=== PATIENT | male | born 1950 | race Caucasian/White ===

== ENCOUNTER 2017-11-14 13:23 | Inpatient (IN) | payer OTHER, MEDICARE ==
[2017-11-14] MEDS ORDERED: SODIUM CHLORIDE 0.9% 500 ML IV STA (13:59)
[2017-11-14] MEDS ORDERED: SODIUM CHLORIDE 0.9% 1,000 ML IV STA (13:59)
[2017-11-14 14:54] LABS: Basophils % (A) 0 %; Eosinophils # (A) 0.2 k/uL (0-0.7); Eosinophils % (A) 3 %; HCT 24.7 % (39.0-53.0); HGB 7.7 gm/dL (13.0-17.5); Hypochromasia Slight; Lymphocytes # (A) 1.3 k/uL (1.0-4.8); Lymphocytes % (A) 16 %; MCH 30.9 pg (25.0-35.0); MCHC 31.3 g/dL (31.0-37.0); MCV 98.7 fL (80.0-100.0); Mean Platelet Volume 7.9; Monocytes # (A) 0.4 k/uL (0-1.0); Monocytes % (A) 5 %; Neutrophils # (A) 5.8 k/uL (1.3-7.7); Neutrophils % (A) 74 %; Platelet Count 357 k/uL (150-450); WBC 7.8 k/uL (3.8-10.6)
[2017-11-14 15:08] LABS: Calcium 8.9 mg/dL (8.4-10.2); Potassium 5.2 mmol/L (3.5-5.1); Total Bilirubin 0.1 mg/dL (0.2-1.3); Total Protein 5.5 g/dL (6.3-8.2)
--- NOTE | 2017-11-14 15:20 | XR ---
EXAMINATION TYPE: XR KUB DATE OF EXAM: 11/14/2017 CLINICAL DATA: 67-year-old male with generalized abdominal pain, PHH COMPARISON: 08/02/2012 FINDINGS: Lung bases are clear. No evidence for free intraperitoneal air. Cholecystectomy clips. No dilated small bowel or air-fluid levels. Scattered air and stool seen throughout the colon extendi ng distally into the rectum. Moderate stool burden. No suspicious calcifications identified. Pelvic phleboliths. IMPRESSION: 1. Moderate stool burden. Correlate for any constipation. 2.No evidence of bowel obstruction or free intraperitoneal air.
--- NOTE | 2017-11-14 15:55 | ED ---
Recheck HPI - General Chief Complaint: Recheck/Abnormal Lab/Rx Stated Complaint: ABN labs Time Seen by Provider: 11/14/17 13:58 Source: patient Mode of arrival: ambulatory Limitations: no limitations - History of Present Illness Initial Comments: 67 years old gentleman was sent in by primary care stating that hemoglobin was 7.3 he said he feels weak he feels lightheaded he is also complaining about the chest pain he said chest pain is ongoing for quite some time, he has a history of for coronary artery disease diabetes hyperlipidemia is an aspirin and Plavix he denies any GI bleed he said he did notice some blood in few days ago but not today no abdominal pain no frequency urgency dysuria no symptoms of TIA or CVA - Related Data Home Medications Medication Instructions Recorded Confirmed Cyanocobalamin [Vitamin B-12] 500 mcg PO DAILY 07/18/17 11/14/17 Ergocalciferol (Vitamin D2) 50,000 unit PO Q14D 07/18/17 11/14/17 [Vitamin D2] Gabapentin [Neurontin] 600 mg PO TID 07/18/17 11/14/17 Insulin Glargine,Hum.rec.anlog 10 unit SQ HS 07/18/17 11/14/17 [Lantus Solostar] Isosorbide Mononitrate ER [Imdur] 60 mg PO DAILY 07/18/17 11/14/17 Metoprolol Tartrate [Lopressor] 12.5 mg PO BID 07/18/17 11/14/17 Ranitidine HCl [Zantac] 150 mg PO BID 07/18/17 11/14/17 Simvastatin [Zocor] 40 mg PO HS 07/18/17 11/14/17 glipiZIDE [Glucotrol] 10 mg PO AC-TID 07/18/17 11/14/17 metFORMIN HCL [Glucophage] 1,000 mg PO BID 07/18/17 11/14/17 traMADol HCL [Ultram] 50 mg PO TID 07/18/17 11/14/17 Aspirin EC [Ecotrin Low Dose] 81 mg PO DAILY 11/14/17 11/14/17 Clopidogrel Bisulfate [Plavix] 75 mg PO DAILY 11/14/17 11/14/17 Sennosides-Docusate Sodium 2 tab PO TID PRN 11/14/17 11/14/17 [Senokot-S] Previous Rx's Medication Instructions Recorded Ferrous Sulfate [Iron] 325 mg PO DAILY #1 07/20/17 Allergies Allergy/AdvReac Type Severity Reaction Status Date / Time No Known Allergies Allergy Verified 11/14/17 14:22 Review of Systems ROS Statement: Those systems with pertinent positive or pertinent negative responses have been documented in the HPI. ROS Other: All systems not noted in ROS Statement are negative. Past Medical History Past Medical History: Coronary Artery Disease (CAD), Chest Pain / Angina, Diabetes Mellitus, Hyperlipidemia, Hypertension, Vascular Disorder Additional Past Medical History / Comment(s): Recent problem with insomnia and past 6 months has been having trouble with "bloating" abdominal distention that comes and goes, IDDM type II, low back pain with bilateral sciatica/neuropathy, DJD, past partial SBO treated conservatively, caratid dx with stent placed. History of Any Multi-Drug Resistant Organisms: None Reported Past Surgical History: Cholecystectomy, Heart Catheterization Additional Past Surgical History / Comment(s): R caratid stent-done in [place]. Past Anesthesia/Blood Transfusion Reactions: No Reported Reaction Past Psychological History: No Psychological Hx Reported Smoking Status: Current every day smoker Past Alcohol Use History: None Reported Past Drug Use History: None Reported - Past Family History Father History Unknown: Yes Mother Family Medical History: Cancer Additional Family Medical History / Comment(s): Mother from metastatic cancer unknown primary. General Exam - General Exam Comments Initial Comments: General: The patient is awake and alert, in no distress, and does not appear acutely ill. Looks tired and Skin: Skin is warm and dry and no rashes or lesions are noted. Eye: Pupils are equal, round and reactive to light, extra-ocular movements are intact; there is normal conjunctiva bilaterally. Ears, nose, mouth and throat: There are moist mucous membranes and no oral lesions. Neck: The neck is supple, there is no tenderness or JVD. Cardiovascular: There is a regular rate and rhythm. No murmur, rub or gallop is appreciated. Respiratory: To auscultation bilateral, no wheezing no rhonchi no distress respiratory marion noticed Gastrointestinal: Tender in epigastric area, rectal exam was positive for about Back: There is no tenderness to palpation in the midline. There is no obvious deformity. Musculoskeletal: Normal ROM, no tenderness, There is no pedal edema. There is no calf tenderness or swelling. No cords were appreciated. Neurological: CN II-XII intact, Cranial nerves III through XII are intact. There are no obvious motor or sensory deficits. Coordination appears grossly intact. Speech is normal. Psychiatric: Cooperative, appropriate mood & affect, normal judgment. Limitations: no limitations Course Vital Signs 11/14/17 11/14/17 13:40 15:43 Temperature 97.5 F L Pulse Rate 89 65 Respiratory 18 20 Rate Blood Pressure 114/56 152/72 O2 Sat by Pulse 98 97 Oximetry On review noticed hemoglobin is 7.7 a couple blood is positive troponin is negative his CMP also unremarkable noticed creatinine is 1.5 considering his low hemoglobin and the shortness of breath or chest pain he went he would need admission with some packed red cells transfusion considering he has symptomatic anemia and also renal failure we will admit him to [facility] and cardiology be consulted along with the form setter Medical Decision Making - Lab Data Result diagrams: 11/14/17 14:46 11/14/17 14:46 Lab Results 11/14/17 11/14/17 11/14/17 Range/Units 14:46 14:46 14:46 WBC 7.8 (3.8-10.6) k/uL RBC 2.50 L (4.30-5.90) m/uL Hgb 7.7 L (13.0-17.5) gm/dL Hct 24.7 L (39.0-53.0) % MCV 98.7 (80.0-100.0) fL MCH 30.9 (25.0-35.0) pg MCHC 31.3 (31.0-37.0) g/dL RDW 15.0 (11.5-15.5) % Plt Count 357 (150-450) k/uL Neutrophils % 74 % Lymphocytes % 16 % Monocytes % 5 % Eosinophils % 3 % Basophils % 0 % Neutrophils # 5.8 (1.3-7.7) k/uL Lymphocytes # 1.3 (1.0-4.8) k/uL Monocytes # 0.4 (0-1.0) k/uL Eosinophils # 0.2 (0-0.7) k/uL Basophils # 0.0 (0-0.2) k/uL Hypochromasia Slight Sodium 137 (137-145) mmol/L Potassium 5.2 H (3.5-5.1) mmol/L Chloride 104 (98-107) mmol/L Carbon Dioxide 24 (22-30) mmol/L Anion Gap 9 mmol/L BUN 23 H (9-20) mg/dL Creatinine 1.59 H (0.66-1.25) mg/dL Est GFR (CKD-EPI)AfAm 51 (>60 ml/min/1.73 sqM) Est GFR (CKD-EPI)NonAf 44 (>60 ml/min/1.73 sqM) Glucose 249 H (74-99) mg/dL Calcium 8.9 (8.4-10.2) mg/dL Total Bilirubin 0.1 L (0.2-1.3) mg/dL AST 12 L (17-59) U/L ALT 17 L (21-72) U/L Alkaline Phosphatase 76 (38-126) U/L Troponin I <0.012 (0.000-0.034) ng/mL Total Protein 5.5 L (6.3-8.2) g/dL Albumin 3.0 L (3.5-5.0) g/dL Amylase 74 (30-110) U/L Lipase 127 (23-300) U/L Stool Occult Blood (Negative) Blood Type Blood Type Recheck Antibody Screen Crossmatch Spec Expiration Date 11/14/17 11/14/17 Range/Units 14:46 15:12 WBC (3.8-10.6) k/uL RBC (4.30-5.90) m/uL Hgb (13.0-17.5) gm/dL Hct (39.0-53.0) % MCV (80.0-100.0) fL MCH (25.0-35.0) pg MCHC (31.0-37.0) g/dL RDW (11.5-15.5) % Plt Count (150-450) k/uL Neutrophils % % Lymphocytes % % Monocytes % % Eosinophils % % Basophils % % Neutrophils # (1.3-7.7) k/uL Lymphocytes # (1.0-4.8) k/uL Monocytes # (0-1.0) k/uL Eosinophils # (0-0.7) k/uL Basophils # (0-0.2) k/uL Hypochromasia Sodium (137-145) mmol/L Potassium (3.5-5.1) mmol/L Chloride (98-107) mmol/L Carbon Dioxide (22-30) mmol/L Anion Gap mmol/L BUN (9-20) mg/dL Creatinine (0.66-1.25) mg/dL Est GFR (CKD-EPI)AfAm (>60 ml/min/1.73 sqM) Est GFR (CKD-EPI)NonAf (>60 ml/min/1.73 sqM) Glucose (74-99) mg/dL Calcium (8.4-10.2) mg/dL Total Bilirubin (0.2-1.3) mg/dL AST (17-59) U/L ALT (21-72) U/L Alkaline Phosphatase (38-126) U/L Troponin I (0.000-0.034) ng/mL Total Protein (6.3-8.2) g/dL Albumin (3.5-5.0) g/dL Amylase (30-110) U/L Lipase (23-300) U/L Stool Occult Blood Positive (Negative) Blood Type B Positive Blood Type Recheck No Antibody Screen NEGATIVE Crossmatch See Detail Spec Expiration Date 11/17/20172345 Disposition Clinical Impression: Symptomatic anemia, GI bleed, Chest pain Disposition: ADMITTED IP TO THIS [facility] Condition: Good Referrals: [facility],Clinic [Primary Care Provider] - 1-2 days
[2017-11-14] MEDS ORDERED: ACETAMINOPHEN TAB 325 MG TAB PO PRN (16:06)
[2017-11-14] MEDS ORDERED: NALOXONE 0.4 MG/ML 1 ML VIAL IV PRN ×2 (16:06→17:12)
[2017-11-14] MEDS ORDERED: ONDANSETRON 4 MG/2 ML VIAL IVP PRN (16:06)
[2017-11-14] MEDS ORDERED: ERGOCALCIFEROL 50,000 UNIT CAP PO SCH (16:15)
[2017-11-14] MEDS ORDERED: SENNOSIDES-DOCUSATE SODIUM 1 EACH TAB PO PRN (16:15)
[2017-11-14 17:01] LABS: Appearance,Urine Clear (Clear); Bacteria,Urine Rare /hpf; Bilirubin,Urine Negative (Negative); Blood,Urine Small (Negative); Color,Urine Yellow; Glucose,Urine (UA) 2+ (Negative); Hyaline Casts,Urine 7 /lpf (0-2); Ketones,Urine Negative (Negative); Leukocyte Esterase,Urine Negative (Negative); Nitrite,Urine Negative (Negative); Protein,Urine 3+ (Negative); RBC,Urine 10 /hpf (0-5); Specific Gravity,Urine 1.018 (1.001-1.035); Urobilinogen,Urine <2.0 mg/dL (<2.0); WBC,Urine 1 /hpf (0-5)
[2017-11-14] MEDS ORDERED: glipiZIDE 10 MG TAB PO SCH (17:30)
[2017-11-14 17:52] LABS: Glucose,Whole Blood 156 mg/dL (75-99)
[2017-11-14 17:52] LABS: INR 0.9 (<1.2); Partial Thromboplastin Time 22.9 sec (22.0-30.0); Prothrombin Time 9.3 sec (9.0-12.0)
[2017-11-14] MEDS: INSULIN ASPART 100 UNIT/ML 1 ML 10 ML VIAL SQ SCH ×2 (18:11→21:42)
--- NOTE | 2017-11-14 19:12 | P.HPIM ---
History of Present Illness H&P Date: 11/14/17 Chief Complaint: abdominal bloating Patient is a 67-year-old male with past medical history of diabetes mellitus type 2, high cholesterol, carotid artery disease, neuropathy, and chronic low back pain who presented to the emergency department and direction of his primary care physician for hemoglobin of 7.3. In the ER he underwent an extensive evaluation. His initial vital signs were within normal limits. Initial laboratory analysis showed a hemoglobin of 7.7 down from 9.9 in July 2017. His potassium was slightly elevated at 5.2. His BUN and creatinine were elevated. Fecal occult blood was positive. He was ordered 1 unit of packed red blood cells and arrangements were made for admission. Patient seen and examined at bedside ER. He states he had an order for routine blood work yesterday and was called by his primary care physician today due to a low blood count told to come to the ER. He reports that he has felt dizzy and weak for the last 1 week. 5 days ago he had one episode of bright red blood per rectum. He has not had any additional blood or dark tarry looking stools. On that day he also had a bloody nose. He reports that he has been having increased abdominal girth and bloating. He reports shortness of breath that has been increasing and is worse with exertion and better with rest. He has had a dye cough and a runny nose, but no fevers or chills. He has been having intermittent left-sided chest pain without radiation associated with this increasing shortness of breath he is unsure how often it occurs. Last 1 week he has been having right-sided upper abdominal pain that radiates into his shoulder and into his armpit. Today he felt as though he can't faint or pass out. states that he has been more pale than normal. He also describes episodes at night where he wakes up warm and sweaty. He has just overall felt more fatigued than normal. He denies any significant weight loss or weight gain states his appetite has been normal. He denies any dysuria, urinary frequency, diarrhea, constipation, unusual numbness and tingling. Patient was recently here in July 2017 with a GI bleed. At that point in time he underwent EGD and colonoscopy. EGD showed chronic gastritis colonoscopy revealed 2 polyps one that was an adenoma and one that was an adenoma with hyperplastic polyp. Review of Systems Pertinent positives and negatives as per HPI remainder of 12 point review of systems is negative Past Medical History Past Medical History: Coronary Artery Disease (CAD), Chest Pain / Angina, Diabetes Mellitus, Hyperlipidemia, Hypertension, Vascular Disorder Additional Past Medical History / Comment(s): insomnia, abdominal distention that comes and goes, IDDM type II, low back pain with bilateral sciatica/ neuropathy, DJD, past partial SBO treated conservatively, carotid disease History of Any Multi-Drug Resistant Organisms: None Reported Past Surgical History: Cholecystectomy, Heart Catheterization Additional Past Surgical History / Comment(s): R caratid stent, EGD/colonoscopy July 2017 Past Anesthesia/Blood Transfusion Reactions: No Reported Reaction Past Psychological History: No Psychological Hx Reported Smoking Status: Current every day smoker Past Alcohol Use History: None Reported Past Drug Use History: None Reported - Past Family History Father History Unknown: Yes Mother Family Medical History: Cancer Additional Family Medical History / Comment(s): Mother from metastatic cancer pelvic origin Medications and Allergies Home Medications Medication Instructions Recorded Confirmed Type Cyanocobalamin [Vitamin B-12] 500 mcg PO DAILY 07/18/17 11/14/17 History Ergocalciferol (Vitamin D2) 50,000 unit PO Q14D 07/18/17 11/14/17 History [Vitamin D2] Gabapentin [Neurontin] 600 mg PO TID 07/18/17 11/14/17 History Insulin Glargine,Hum.rec.anlog 10 unit SQ HS 07/18/17 11/14/17 History [Lantus Solostar] Isosorbide Mononitrate ER [Imdur] 60 mg PO DAILY 07/18/17 11/14/17 History Metoprolol Tartrate [Lopressor] 12.5 mg PO BID 07/18/17 11/14/17 History Ranitidine HCl [Zantac] 150 mg PO BID 07/18/17 11/14/17 History Simvastatin [Zocor] 40 mg PO HS 07/18/17 11/14/17 History glipiZIDE [Glucotrol] 10 mg PO AC-TID 07/18/17 11/14/17 History metFORMIN HCL [Glucophage] 1,000 mg PO BID 07/18/17 11/14/17 History traMADol HCL [Ultram] 50 mg PO TID 07/18/17 11/14/17 History Ferrous Sulfate [Iron] 325 mg PO DAILY #1 07/20/17 11/14/17 Rx Aspirin EC [Ecotrin Low Dose] 81 mg PO DAILY 11/14/17 11/14/17 History Clopidogrel Bisulfate [Plavix] 75 mg PO DAILY 11/14/17 11/14/17 History Sennosides-Docusate Sodium 2 tab PO TID PRN 11/14/17 11/14/17 History [Senokot-S] Allergies Allergy/AdvReac Type Severity Reaction Status Date / Time No Known Allergies Allergy Verified 11/14/17 14:22 Physical Exam Osteopathic Statement: *. No significant issues noted on an osteopathic structural exam other than those noted in the History and Physical/Consult. Vitals: Vital Signs Temp Pulse Resp BP Pulse Ox 11/14/17 16:59 97.6 F 68 20 168/71 99 11/14/17 16:48 97.6 F 75 20 168/78 97 11/14/17 16:38 97.5 F L 79 18 168/77 11/14/17 15:43 65 20 152/72 97 11/14/17 13:40 97.5 F L 89 18 114/56 98 Intake and Output 11/14/17 11/14/17 11/14/17 06:59 14:59 22:59 Intake Total 0 Output Total 100 Balance -100 Intake: Blood Product 0 Rc As-1 Unit 0 [id number] Output: Urine 100 Other: Weight 81.647 kg General: Ill appearing, mild distress, appears at stated age, normal weight, pallor Derm: no unusual rashes/lesions no unusual ecchymoses, warm, dry Head: atraumatic, normocephalic, symmetric Eyes: EOMI, no lid lag, anicteric sclera, pupils equal round reactive to light ENT: Nose and ears atraumatic, no thrush, no pharyngeal erythema Neck: No thyromegaly, no cervical lymphadenopathy, trachea midline, supple Mouth: no lip lesion, mucus membranes dry Cardiovascular: S1S2 reg, no murmur, positive posterior tibial pulse bilateral, no edema, capillary refill less than 2 seconds Lungs: CTA bilateral, no rhonchi, no rales , no accessory muscle use Abdominal: soft, nontender to palpation, no guarding, no appreciable organomegaly, normal bowel sounds Ext: no gross muscle atrophy, muscle strength 5 out of 5 in upper extremities grossly, 3-4 out of 5 in bilateral lower extremities, no contractures, Neuro: CN II-XI grossly intact, light touch intact all 4 extremities, finger to nose within normal limits, Psych: Alert, oriented, appropriate affect Results CBC & Chem 7: 11/14/17 14:46 11/14/17 14:46 Labs: Abnormal Lab Results - Last 24 Hours (Table) 11/14/17 11/14/17 11/14/17 Range/Units 14:46 14:46 14:46 RBC 2.50 L (4.30-5.90) m/uL Hgb 7.7 L (13.0-17.5) gm/dL Hct 24.7 L (39.0-53.0) % Potassium 5.2 H (3.5-5.1) mmol/L BUN 23 H (9-20) mg/dL Creatinine 1.59 H (0.66-1.25) mg/dL Glucose 249 H (74-99) mg/dL Total Bilirubin 0.1 L (0.2-1.3) mg/dL AST 12 L (17-59) U/L ALT 17 L (21-72) U/L Total Protein 5.5 L (6.3-8.2) g/dL Albumin 3.0 L (3.5-5.0) g/dL Urine Protein (Negative) Urine Glucose (UA) (Negative) Urine Blood (Negative) Urine RBC (0-5) /hpf Urine Bacteria (None) /hpf Hyaline Casts (0-2) /lpf Crossmatch See Detail 11/14/17 Range/Units 16:45 RBC (4.30-5.90) m/uL Hgb (13.0-17.5) gm/dL Hct (39.0-53.0) % Potassium (3.5-5.1) mmol/L BUN (9-20) mg/dL Creatinine (0.66-1.25) mg/dL Glucose (74-99) mg/dL Total Bilirubin (0.2-1.3) mg/dL AST (17-59) U/L ALT (21-72) U/L Total Protein (6.3-8.2) g/dL Albumin (3.5-5.0) g/dL Urine Protein 3+ H (Negative) Urine Glucose (UA) 2+ H (Negative) Urine Blood Small H (Negative) Urine RBC 10 H (0-5) /hpf Urine Bacteria Rare H (None) /hpf Hyaline Casts 7 H (0-2) /lpf Crossmatch Comments: EKG is reviewed by myself reveals normal sinus rhythm at a rate of 65, normal axis, normal intervals, and no significant ST-T wave changes. Abdominal x-ray: report reviewed Thrombosis Risk Factor Assmnt - DVT/VTE Prophylaxis DVT/VTE Prophylaxis: Mechanical Prophylaxis ordered, Contraindicated - See note (Low hemoglobin with positive fecal occult blood) Assessment and Plan Assessment: Symptomatic anemia with positive fecal occult blood -Nothing by mouth after midnight -Serial CBCs -Consult GI -PPI -Check ferritin, B12, iron studies, and folic acid -Potassium is slightly elevated however bilirubin is normal. If bilirubin elevated consider further workup for possible hemolytic anemia. -Hold aspirin and Plavix -Check stat PT, PTT Hyperkalemia, undetermined cause -IV fluids -Repeat in a.m. Acute kidney injury on chronic kidney disease stage III -Likely secondary to hypoperfusion -Avoid nephrotoxic agents -Volume resuscitation -Repeat basic metabolic profile in a.m. -Urology was consulted from ER Chest pain or shortness of breath -Likely secondary to symptomatic anemia however could be anginal equivalent -Troponin negative 1 and EKG negative -Consult cardiology -Telemetry -Avoid aspirin at this point in time secondary GI bleed Diabetes mellitus type 2 -Hold oral medication -Levemir and sliding scale insulin -Hemoglobin A1c 07/05 was 5.3 -Repeat hemoglobin A1c -Check blood sugars Mild protein calorie malnutrition -Add supplementation when patient is able to tolerate diet. Consult dietitian Chronic conditions: Dyslipidemia Carotid disease status post stenting GERD Neuropathy Chronic back pain Surrogate decision-maker: CODE STATUS:full DVT prophylaxis: SCDs Discussed with: Patient, ED nursing Anticipated discharge: 24-[address]: home A total of 65 minutes was spent on the care of this complex patient more than 50 % of the time was spent in counseling and care coordination.
[2017-11-14] MEDS ORDERED: ALPRAZolam 0.5 MG TAB PO PRN (19:15)
[2017-11-14] MEDS: METOPROLOL TARTRATE 12.5 MG TAB PO SCH (20:03)
[2017-11-14] MEDS: ATORVASTATIN 20 MG TAB PO SCH (20:03)
[2017-11-14] MEDS: GABAPENTIN 300 MG CAP PO SCH (20:03)
[2017-11-14 20:35] LABS: HCT 27.1 % (39.0-53.0); HGB 8.7 gm/dL (13.0-17.5); Hypochromasia Slight; MCH 31.2 pg (25.0-35.0); MCV 97.5 fL (80.0-100.0); Mean Platelet Volume 8.8; Platelet Count 322 k/uL (150-450); RBC 2.78 m/uL (4.30-5.90); RDW 15.5 % (11.5-15.5); WBC 9.2 k/uL (3.8-10.6)
[2017-11-14] MEDS ORDERED: FAMOTIDINE 20 MG TAB PO SCH (21:00)
[2017-11-14] MEDS ORDERED: metFORMIN 500 MG TAB PO SCH (21:00)
[2017-11-14] MEDS: traMADol 50 MG TAB PO SCH (21:15)
[2017-11-14 21:32] LABS: Glucose,Whole Blood 123 mg/dL (75-99)
[2017-11-14] MEDS: INSULIN DETEMIR 100 UNIT/ML 10 ML VIAL SQ SCH (21:43)
[2017-11-15 02:07] LABS: Glucose,Whole Blood 117 mg/dL (75-99)
[2017-11-15 02:09] LABS: HCT 26.8 % (39.0-53.0); HGB 8.7 gm/dL (13.0-17.5); MCH 31.5 pg (25.0-35.0); MCHC 32.7 g/dL (31.0-37.0); MCV 96.4 fL (80.0-100.0); Mean Platelet Volume 7.8; Platelet Count 330 k/uL (150-450); RBC 2.78 m/uL (4.30-5.90); RDW 15.5 % (11.5-15.5); WBC 8.9 k/uL (3.8-10.6)
[2017-11-15 07:33] LABS: Glucose,Whole Blood 136 mg/dL (75-99)
[2017-11-15] MEDS: INSULIN ASPART 100 UNIT/ML 1 ML 10 ML VIAL SQ SCH ×4 (07:42→22:00)
[2017-11-15] MEDS: FERROUS SULFATE 325 MG TAB PO SCH (08:39)
[2017-11-15] MEDS: CYANOCOBALAMIN 500 MCG TAB PO SCH (08:39)
[2017-11-15] MEDS: GABAPENTIN 300 MG CAP PO SCH ×3 (08:39→22:02)
[2017-11-15] MEDS: ISOSORBIDE MONONITRATE ER 60 MG TAB.ER.24H PO SCH (08:39)
[2017-11-15] MEDS: METOPROLOL TARTRATE 12.5 MG TAB PO SCH (08:39)
[2017-11-15] MEDS: NICOTINE 21MG/24HR PATCH TRANSDERM SCH (08:40)
[2017-11-15] MEDS: PANTOPRAZOLE 40 MG/10 ML VIAL IV SCH (08:40)
[2017-11-15] MEDS: traMADol 50 MG TAB PO SCH ×3 (08:40→22:04)
--- NOTE | 2017-11-15 08:53 | US ---
EXAMINATION TYPE: US abdomen complete DATE OF EXAM: 11/15/2017 COMPARISON: US dated 10/29/2012, CT Abdomen pelvis 08/01/2012 CLINICAL HISTORY: distension and RUQ pain; anemia; cholecystectomy EXAM MEASUREMENTS: Liver Length: 15.7 cm Gallbladder Wall: surgically removed CBD: 0.9 cm Spleen: 10.5 cm Right Kidney: 11.3 x 6.1 x 6.1cm Left Kidney: 11.7 x 5.1 x 6.2 cm Pancreas: partially obscured by overlying bowel gas; CBD prominent in head of pancreas Liver: no masses seen and the echotexture is coarse Gallbladder: surgically absent Evidence for sonographic Chavez's sign: No CBD: wnl post cholecystectomy Spleen: wnl Right Kidney: lateral cortical cyst = 0.8 x 0.9 x 0.8cm. Left Kidney: No hydronephrosis or masses seen and cortical medullary differentiation is maintained bilaterally. Upper IVC: wnl Abd Aorta: size is wnl; intimal thickening is noted distally There is no ascites evident. IMPRESSION: Post cholecystectomy. Correlate for hepatic steatosis. Biliary dilation likely due to pos tcholecystectomy change.
[2017-11-15] MEDS ORDERED: hydrALAZINE HCL 20 MG/ML 1 ML VIAL IVP PRN (09:22)
--- NOTE | 2017-11-15 09:55 | P.NPCON ---
History of Present Illness - Reason for Consult acute renal failure - History of Present Illness Reason for consultation: Acute kidney injury History of present illness: Patient is a 67-year-old male seen in renal consultation for acute kidney injury on chronic kidney disease. 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 Creatinine on admission was 1.59. Patient saw his primary care physician yesterday and was complaining of weakness and dizziness. His hemoglobin was 7.3 and he was advised to come to the hospital for blood transmission. He did receive a unit of blood yesterday and hemoglobin this morning is 8.7. He denies any melena or hematochezia. Denies hematemesis. Denies active chest pain or shortness of breath. Admits to good urine output. No hematuria or dysuria. He does not follow with a it network architect as an outpatient. He does have long-standing history of insulin-dependent diabetes mellitus. He does admit to history of retinopathy and neuropathy as well. No vomiting or diarrhea. Denies regular use of NSAIDs. Denies family history of renal disease. Hemodynamically stable. Vital signs are stable. General: The patient appeared well nourished and normally developed. HEENT: Head exam is unremarkable. Neck is without jugular venous distension. LUNGS: Lungs are clear to auscultation and percussion. Breath sounds decreased. HEART: Rate and Rhythm are regular. First and second heart sounds normal. No murmurs, rubs or gallops. ABDOMEN: Abdominal exam reveals normal bowel sounds. Non-tender and non- distended. No evidence of peritonitis. EXTREMITITES: No clubbing, cyanosis, or edema. Past Medical History Past Medical History: Coronary Artery Disease (CAD), Chest Pain / Angina, Diabetes Mellitus, Hyperlipidemia, Hypertension, Vascular Disorder Additional Past Medical History / Comment(s): insomnia, abdominal distention that comes and goes, IDDM type II, low back pain with bilateral sciatica/ neuropathy, DJD, past partial SBO treated conservatively, carotid disease History of Any Multi-Drug Resistant Organisms: None Reported Past Surgical History: Cholecystectomy, Heart Catheterization Additional Past Surgical History / Comment(s): R caratid stent, EGD/colonoscopy July 2017 Past Anesthesia/Blood Transfusion Reactions: No Reported Reaction Past Psychological History: No Psychological Hx Reported Smoking Status: Current every day smoker Past Alcohol Use History: None Reported Past Drug Use History: None Reported - Past Family History Father History Unknown: Yes Mother Family Medical History: Cancer Additional Family Medical History / Comment(s): Mother from metastatic cancer pelvic origin Medications and Allergies Home Medications Medication Instructions Recorded Confirmed Type Cyanocobalamin [Vitamin B-12] 500 mcg PO DAILY 07/18/17 11/14/17 History Ergocalciferol (Vitamin D2) 50,000 unit PO Q14D 07/18/17 11/14/17 History [Vitamin D2] Gabapentin [Neurontin] 600 mg PO TID 07/18/17 11/14/17 History Insulin Glargine,Hum.rec.anlog 10 unit SQ HS 07/18/17 11/14/17 History [Lantus Solostar] Isosorbide Mononitrate ER [Imdur] 60 mg PO DAILY 07/18/17 11/14/17 History Metoprolol Tartrate [Lopressor] 12.5 mg PO BID 07/18/17 11/14/17 History Ranitidine HCl [Zantac] 150 mg PO BID 07/18/17 11/14/17 History Simvastatin [Zocor] 40 mg PO HS 07/18/17 11/14/17 History glipiZIDE [Glucotrol] 10 mg PO AC-TID 07/18/17 11/14/17 History metFORMIN HCL [Glucophage] 1,000 mg PO BID 07/18/17 11/14/17 History traMADol HCL [Ultram] 50 mg PO TID 07/18/17 11/14/17 History Ferrous Sulfate [Iron] 325 mg PO DAILY #1 07/20/17 11/14/17 Rx Aspirin EC [Ecotrin Low Dose] 81 mg PO DAILY 11/14/17 11/14/17 History Clopidogrel Bisulfate [Plavix] 75 mg PO DAILY 11/14/17 11/14/17 History Sennosides-Docusate Sodium 2 tab PO TID PRN 11/14/17 11/14/17 History [Senokot-S] Allergies Allergy/AdvReac Type Severity Reaction Status Date / Time No Known Allergies Allergy Verified 11/14/17 14:22 Physical Exam Vitals: Vital Signs Temp Pulse Pulse Resp BP BP Pulse Ox 11/15/17 06:04 97.0 F L 72 18 187/76 95 11/14/17 23:00 97.6 F 72 18 137/71 96 11/14/17 19:45 97.4 F L 69 16 142/71 11/14/17 19:43 97.4 F L 69 16 142/71 11/14/17 17:31 98.1 F 72 16 164/76 96 11/14/17 17:18 98.1 F 72 164/76 96 11/14/17 16:59 97.6 F 68 20 168/71 99 11/14/17 16:48 97.6 F 75 20 168/78 97 11/14/17 16:38 97.5 F L 79 18 168/77 11/14/17 15:43 65 20 152/72 97 11/14/17 13:40 97.5 F L 89 18 114/56 98 Intake and Output 11/14/17 11/15/17 11/15/17 22:59 06:59 14:59 Intake Total 0 Output Total 100 Balance -100 Intake: Blood Product 0 Rc As-1 Unit 0 [id number] Output: Urine 100 Other: # Voids 1 2 Weight 85 kg Results - Lab Results Most recent lab results Calcium 8.9 mg/dL (8.4-10.2) 11/14/17 14:46 11/15/17 02:00 11/14/17 14:46 Assessment and Plan Plan: Assessment: #1. Nonoliguric acute kidney injury mostly prerenal secondary to anemia. Creatinine was 1.59 on admission. No evidence of hydronephrosis noted on renal ultrasound. #2. Chronic kidney disease stage III secondary to diabetic kidney disease with baseline creatinine near 1.2. #3. Acute anemia. Concern for underlying GI bleed. Status post blood transfusion. Hemoglobin 8.7 today. #4. Insulin-dependent diabetes mellitus. Plan: Check iron studies. GI recommendations pending. Possible endoscopy this admission. Avoid nephrotoxic agents and hypotensive episodes. Continue with normal saline at 50 mL an hour for maintenance fluids. Repeat electrolytes in the morning. Thank you for the consultation. I will continue to follow the patient with you during his hospital stay.
[2017-11-15 10:44] LABS: HCT 28.5 % (39.0-53.0); HGB 9.1 gm/dL (13.0-17.5); MCH 31.4 pg (25.0-35.0); MCV 98.1 fL (80.0-100.0); Macrocytosis Slight; Mean Platelet Volume 7.5; Platelet Count 346 k/uL (150-450); RBC 2.91 m/uL (4.30-5.90); RDW 15.6 % (11.5-15.5); WBC 10.1 k/uL (3.8-10.6)
[2017-11-15 10:52] LABS: Iron Saturation 11.21 (15.00-50.00)
[2017-11-15 10:55] LABS: Prothrombin Time 9.5 sec (9.0-12.0)
[2017-11-15 11:28] LABS: Glucose,Whole Blood 158 mg/dL (75-99)
[2017-11-15 11:29] LABS: Albumin 2.8 g/dL (3.5-5.0); Calcium 8.9 mg/dL (8.4-10.2); Magnesium 2.2 mg/dL (1.6-2.3); Potassium 5.1 mmol/L (3.5-5.1); Total Bilirubin 0.2 mg/dL (0.2-1.3); Total Protein 5.3 g/dL (6.3-8.2)
--- NOTE | 2017-11-15 11:45 | P.PN ---
Subjective Progress Note Date: 11/15/17 Principal diagnosis: dizziness Patient is a 67-year-old male with past medical history of diabetes mellitus type 2, high cholesterol, carotid artery disease, neuropathy, and chronic low back pain who presented to the emergency department and direction of his primary care physician for hemoglobin of 7.3. In the ER he underwent an extensive evaluation. His initial vital signs were within normal limits. Initial laboratory analysis showed a hemoglobin of 7.7 down from 9.9 in July 2017. His potassium was slightly elevated at 5.2. His BUN and creatinine were elevated. Fecal occult blood was positive. He was ordered 1 unit of packed red blood cells and arrangements were made for admission. He had an episode of rectal bleeding and a nosebleed in the same day. He was hospitalized here in July 2017 with a GI bleed. At that point in time he underwent EGD and colonoscopy. EGD showed chronic gastritis colonoscopy revealed 2 polyps one that was an adenoma and one that was an adenoma with hyperplastic polyp.He has also been suffering from night sweats his A1C was 5.3 in June. His hemoglobin remained stable and he did not have any bleeding on the morning after admission. He was also having chest pain and was seen by cardiology. Nephrology was consulted by the ED for elevated Cr. Patient seen and examined at bedside. No chest pain, SOB, nausea, vomiting, diarrhea, or abdominal pain. Has not had a bowel movement. Family at bedside and updated. Objective - Vital Signs Vital signs: Vital Signs Temp 97.0 F L 11/15/17 06:04 Pulse 72 11/15/17 06:04 Resp 18 11/15/17 06:04 BP 187/76 11/15/17 06:04 Pulse Ox 95 11/15/17 06:04 Intake & Output 11/14/17 11/15/17 11/15/17 18:59 06:59 18:59 Intake Total 0 0 Output Total 100 Balance -100 0 Weight 85 kg 85 kg Intake: Blood Product 0 0 Rc As-1 Unit 0 0 [id number] Output: Urine 100 Other: # Voids 2 - Exam General: ill appearing, no distress, appears at stated age Derm: warm, dry Head: atraumatic, normocephalic, symmetric Eyes: EOMI, no lid lag, anicteric sclera Mouth: no lip lesion, mucus membranes moist Cardiovascular: S1S2 reg with systolic ejection murmur, positive posterior tibial pulse bilateral, Lungs: CTA bilateral, no rhonchi, no rales , no accessory muscle use Abdominal: soft, nontender to palpation, no guarding, no appreciable organomegaly Ext: no gross muscle atrophy, no edema, no contractures Neuro: CN II-XI grossly intact, no focal neuro deficits Psych: Alert, oriented, appropriate affect - Labs CBC & Chem 7: 11/15/17 09:35 11/14/17 14:46 Labs: Abnormal Lab Results - Last 24 Hours (Table) 11/14/17 11/14/17 11/14/17 Range/Units 14:46 14:46 14:46 RBC 2.50 L (4.30-5.90) m/uL Hgb 7.7 L (13.0-17.5) gm/dL Hct 24.7 L (39.0-53.0) % RDW (11.5-15.5) % Potassium 5.2 H (3.5-5.1) mmol/L BUN 23 H (9-20) mg/dL Creatinine 1.59 H (0.66-1.25) mg/dL Glucose 249 H (74-99) mg/dL POC Glucose (mg/dL) (75-99) mg/dL Iron (65-175) ug/dL Iron Saturation (15.00-50.00) Total Bilirubin 0.1 L (0.2-1.3) mg/dL AST 12 L (17-59) U/L ALT 17 L (21-72) U/L Total Protein 5.5 L (6.3-8.2) g/dL Albumin 3.0 L (3.5-5.0) g/dL Urine Protein (Negative) Urine Glucose (UA) (Negative) Urine Blood (Negative) Urine RBC (0-5) /hpf Urine Bacteria (None) /hpf Hyaline Casts (0-2) /lpf Crossmatch See Detail 11/14/17 11/14/17 11/14/17 Range/Units 16:45 17:49 20:20 RBC (4.30-5.90) m/uL Hgb (13.0-17.5) gm/dL Hct (39.0-53.0) % RDW (11.5-15.5) % Potassium (3.5-5.1) mmol/L BUN (9-20) mg/dL Creatinine (0.66-1.25) mg/dL Glucose (74-99) mg/dL POC Glucose (mg/dL) 156 H (75-99) mg/dL Iron 39 L (65-175) ug/dL Iron Saturation 11.21 L (15.00-50.00) Total Bilirubin (0.2-1.3) mg/dL AST (17-59) U/L ALT (21-72) U/L Total Protein (6.3-8.2) g/dL Albumin (3.5-5.0) g/dL Urine Protein 3+ H (Negative) Urine Glucose (UA) 2+ H (Negative) Urine Blood Small H (Negative) Urine RBC 10 H (0-5) /hpf Urine Bacteria Rare H (None) /hpf Hyaline Casts 7 H (0-2) /lpf Crossmatch 11/14/17 11/14/17 11/15/17 Range/Units 20:20 21:25 02:00 RBC 2.78 L 2.78 L (4.30-5.90) m/uL Hgb 8.7 L 8.7 L (13.0-17.5) gm/dL Hct 27.1 L 26.8 L (39.0-53.0) % RDW (11.5-15.5) % Potassium (3.5-5.1) mmol/L BUN (9-20) mg/dL Creatinine (0.66-1.25) mg/dL Glucose (74-99) mg/dL POC Glucose (mg/dL) 123 H (75-99) mg/dL Iron (65-175) ug/dL Iron Saturation (15.00-50.00) Total Bilirubin (0.2-1.3) mg/dL AST (17-59) U/L ALT (21-72) U/L Total Protein (6.3-8.2) g/dL Albumin (3.5-5.0) g/dL Urine Protein (Negative) Urine Glucose (UA) (Negative) Urine Blood (Negative) Urine RBC (0-5) /hpf Urine Bacteria (None) /hpf Hyaline Casts (0-2) /lpf Crossmatch 11/15/17 11/15/17 11/15/17 Range/Units 02:05 07:31 09:35 RBC 2.91 L (4.30-5.90) m/uL Hgb 9.1 L (13.0-17.5) gm/dL Hct 28.5 L (39.0-53.0) % RDW 15.6 H (11.5-15.5) % Potassium (3.5-5.1) mmol/L BUN (9-20) mg/dL Creatinine (0.66-1.25) mg/dL Glucose (74-99) mg/dL POC Glucose (mg/dL) 117 H 136 H (75-99) mg/dL Iron (65-175) ug/dL Iron Saturation (15.00-50.00) Total Bilirubin (0.2-1.3) mg/dL AST (17-59) U/L ALT (21-72) U/L Total Protein (6.3-8.2) g/dL Albumin (3.5-5.0) g/dL Urine Protein (Negative) Urine Glucose (UA) (Negative) Urine Blood (Negative) Urine RBC (0-5) /hpf Urine Bacteria (None) /hpf Hyaline Casts (0-2) /lpf Crossmatch 11/15/17 Range/Units 11:26 RBC (4.30-5.90) m/uL Hgb (13.0-17.5) gm/dL Hct (39.0-53.0) % RDW (11.5-15.5) % Potassium (3.5-5.1) mmol/L BUN (9-20) mg/dL Creatinine (0.66-1.25) mg/dL Glucose (74-99) mg/dL POC Glucose (mg/dL) 158 H (75-99) mg/dL Iron (65-175) ug/dL Iron Saturation (15.00-50.00) Total Bilirubin (0.2-1.3) mg/dL AST (17-59) U/L ALT (21-72) U/L Total Protein (6.3-8.2) g/dL Albumin (3.5-5.0) g/dL Urine Protein (Negative) Urine Glucose (UA) (Negative) Urine Blood (Negative) Urine RBC (0-5) /hpf Urine Bacteria (None) /hpf Hyaline Casts (0-2) /lpf Crossmatch Assessment and Plan Assessment: Symptomatic anemia with positive fecal occult blood, Fe deficiency anemia -HgB stable -Await GI recs -PPI -folic acid and retic count pending -Hold aspirin and Plavix Acute kidney injury on chronic kidney disease stage III due to diabetes, improving -Likely secondary to hypoperfusion due to anemia -Avoid nephrotoxic agents -Volume resuscitation -Repeat basic metabolic profile in a.m. -nephrology recs appreciated Chest pain and shortness of breath -Likely secondary to symptomatic anemia however could be anginal equivalent -Troponin negative -Await cardiology consult -echo pending -Telemetry -Avoid aspirin at this point in time secondary GI bleed Diabetes mellitus type 2 -Hold oral medication -Levemir and sliding scale insulin -Hemoglobin A1c 07/05 was 5.3 -Await hemoglobin A1c -follow blood sugars Mild protein calorie malnutrition -Add supplementation when patient is able to tolerate diet. Consult dietitian Hyperkalemia, resolved Chronic conditions: Dyslipidemia Carotid disease status post stenting GERD Neuropathy Chronic back pain DVT prophylaxis: SCDs Discussed with: Patient, nursing Anticipated discharge: 24-[address]: home A total of 25 minutes was spent on the care of this complex patient more than 50 % of the time was spent in counseling and care coordination.
--- NOTE | 2017-11-15 11:58 | ECHOF ---
Referral Reason:sob MEASUREMENTS -------- HEIGHT: 170.2 cm WEIGHT: 84.8 kg BP: 187/76 RVIDd: 3.2 cm (< 3.3) IVSd: 1.4 cm (0.6 - 1.1) LVIDd: 4.6 cm (3.9 - 5.3) LVPWd: 1.4 cm (0.6 - 1.1) IVSs: 1.8 cm LVIDs: 3.2 cm LVPWs: 1.8 cm LA Diam: 3.4 cm (2.7 - 3.8) LAESV Index (A-L): 36.18 ml/m Ao Diam: 4.0 cm (2.0 - 3.7) AV Cusp: 2.0 cm (1.5 - 2.6) MV EXCURSION: 17.007 mm (> 18.000) MV EF SLOPE: 34 mm/s (70 - 150) EPSS: 0.5 cm MV E Ray: 1.23 m/s MV DecT: 182 ms MV A Ray: 0.42 m/s MV E/A Ratio: 2.90 AV maxP.73 mmHg AV meanP.29 mmHg AR PHT: 1120 ms RAP: 5.00 mmHg RVSP: 31.73 mmHg FINDINGS -------- Sinus rhythm. This was a technically good study. The left ventricular size is normal. There is moderate concentric left ventricular hypertrophy. O verall left ventricular systolic function is normal with, an EF between 55 - 60 %. The right ventricle is normal in size. LA is moderately dilated 34-39 ml/m2 The right atrium is normal in size. There is mild aortic valve sclerosis. There is mild aortic regurgitation. There is mild aortic st enosis present. Peak/mean gradient across the Aortic Valve is 21.73mmHg / 9.29mmHg. The mitral valve leaflets are mildly thickened. Mild mitral annular calcification present. There is trace to mild mitral regurgitation. Mild tricuspid regurgitation present. Right ventricular systolic pressure is normal at < 35 mmHg. Trace/mild (physiologic) pulmonic regurgitation. The aortic root is dilated measuring 4.0cm. Normal inferior vena cava with normal inspiratory collapse consistent with estimated right atrial pre ssure of 5 mmHg. There is no pericardial effusion. CONCLUSIONS -------- 1. Sinus rhythm. 2. This was a technically good study. 3. The left ventricular size is normal. 4. There is moderate concentric left ventricular hypertrophy. 5. Overall left ventricular systolic function is normal with, an EF between 55 - 60 %. 6. The right ventricle is normal in size. 7. LA is moderately dilated 34-39 ml/m2 8. The right atrium is normal in size. 9. There is mild aortic valve sclerosis. 10. There is mild aortic regurgitation. 11. There is mild aortic stenosis present. 12. Peak/mean gradient across the Aortic Valve is 21.73mmHg / 9.29mmHg. 13. The mitral valve leaflets are mildly thickened. 14. Mild mitral annular calcification present. 15. There is trace to mild mitral regurgitation. 16. Mild tricuspid regurgitation present. 17. Right ventricular systolic pressure is normal at < 35 mmHg. 18. Trace/mild (physiologic) pulmonic regurgitation. 19. The aortic root is dilated measuring 4.0cm. 20. Normal inferior vena cava with normal inspiratory collapse consistent with estimated right atrial pressure of 5 mmHg. 21. There is no pericardial effusion. PLUMBING INSTRUCTOR: Sussy Rahman RDCS
[2017-11-15 13:28] VITALS: BMI 29.3
--- NOTE | 2017-11-15 14:51 | P.CRDCN ---
History of Present Illness Consult date: 11/15/17 History of present illness: Mr. Crane is a pleasant 59-year-old male past medical history significant for coronary artery disease, dyslipidemia, hypertension, diabetes mellitus, chronic GI bleeding, peripheral vascular disease with history of right carotid stent placement and chronic tobacco abuse. He follows with cardiology at the [facility]. We have been asked to see him in consultation for complaints of shortness of breath on admission. He was found to have a hemoglobin of 7.7. He underwent transfusion and hemoglobin today is 9.1. She states he has been having intermittent episodes of bright red bleeding off-and- on for the past year. He has undergone GI evaluation in the past. He states he underwent cardiac catheterization at the [facility] approximately one year ago was told that was normal. His records aren't available to me but we will attempt to obtain them. EKG on arrival reveals sinus mechanism with no acute ST or T-wave abnormalities. Chest x-ray on admission. One will be obtained. Laboratory data reviewed, hemoglobin 9.1, platelets 346, potassium 5.1, creatinine 1.4, cardiac enzymes negative 3. Current cardiac medications include Plavix 75 mg daily, aspirin 81 mg daily, Lopressor 12.5 mg twice a day, Imdur 60 mg daily and simvastatin 40 mg daily. Echocardiogram obtained on this admission reveals preserved left ventricular systolic function with ejection fraction 55-60%, moderate concentric left ventricular hypertrophy, moderately dilated left atrium, mild aortic regurgitation, mild aortic stenosis, peak/mean gradient 21.73/9.29 mmHg, trace to mild MR and aortic root dilated at 4 cm. Review of Systems At the time of my exam: CONSTITUTIONAL: Denies fever. Denies chills. EYES: Denies blurred vision. Denies vision changes. Denies eye pain. EARS, NOSE, MOUTH & THROAT: Denies headache. Denies sore throat. Denies ear pain. CARDIOVASCULAR: Denies chest pain. Denies shortness of breath. Denies orthopnea. Denies PND. Denies palpitations. RESPIRATORY: Denies cough. GASTROINTESTINAL: Denies abdominal pain. Denies diarrhea. Denies constipation. Denies nausea. Denies vomiting. MUSCULOSKELETAL: Denies myalgias. INTEGUMENTARY: Denies pruitis. Denies rash. NEUROLOGIC: Denies numbness. Denies tingling. Denies weakness. PSYCHIATRIC: Denies anxiety. Denies depression. ENDOCRINE: Denies fatigue. Denies weight change. Denies polydipsia. Denies polyurina. GENITOURINARY: Denies burning, hematuria or urgency with micturation. HEMATOLOGIC: Denies history of anemia. Denies bleeding. Past Medical History Past Medical History: Coronary Artery Disease (CAD), Chest Pain / Angina, Diabetes Mellitus, Hyperlipidemia, Hypertension, Vascular Disorder Additional Past Medical History / Comment(s): insomnia, abdominal distention that comes and goes, IDDM type II, low back pain with bilateral sciatica/ neuropathy, DJD, past partial SBO treated conservatively, carotid disease History of Any Multi-Drug Resistant Organisms: None Reported Past Surgical History: Cholecystectomy, Heart Catheterization Additional Past Surgical History / Comment(s): R caratid stent, EGD/colonoscopy July 2017 Past Anesthesia/Blood Transfusion Reactions: No Reported Reaction Past Psychological History: No Psychological Hx Reported Smoking Status: Current every day smoker Past Alcohol Use History: None Reported Past Drug Use History: None Reported - Past Family History Father History Unknown: Yes Mother Family Medical History: Cancer Additional Family Medical History / Comment(s): Mother from metastatic cancer pelvic origin Medications and Allergies Home Medications Medication Instructions Recorded Confirmed Type Cyanocobalamin [Vitamin B-12] 500 mcg PO DAILY 07/18/17 11/14/17 History Ergocalciferol (Vitamin D2) 50,000 unit PO Q14D 07/18/17 11/14/17 History [Vitamin D2] Gabapentin [Neurontin] 600 mg PO TID 07/18/17 11/14/17 History Insulin Glargine,Hum.rec.anlog 10 unit SQ 07/18/17 11/14/17 History [Lantus Solostar] Isosorbide Mononitrate ER [Imdur] 60 mg PO DAILY 07/18/17 11/14/17 History Metoprolol Tartrate [Lopressor] 12.5 mg PO BID 07/18/17 11/14/17 History Ranitidine HCl [Zantac] 150 mg PO BID 07/18/17 11/14/17 History Simvastatin [Zocor] 40 mg PO HS 07/18/17 11/14/17 History glipiZIDE [Glucotrol] 10 mg PO AC-TID 07/18/17 11/14/17 History metFORMIN HCL [Glucophage] 1,000 mg PO BID 07/18/17 11/14/17 History traMADol HCL [Ultram] 50 mg PO TID 07/18/17 11/14/17 History Ferrous Sulfate [Iron] 325 mg PO DAILY #1 07/20/17 11/14/17 Rx Aspirin EC [Ecotrin Low Dose] 81 mg PO DAILY 11/14/17 11/14/17 History Clopidogrel Bisulfate [Plavix] 75 mg PO DAILY 11/14/17 11/14/17 History Sennosides-Docusate Sodium 2 tab PO TID PRN 11/14/17 11/14/17 History [Senokot-S] Allergies Allergy/AdvReac Type Severity Reaction Status Date / Time No Known Allergies Allergy Verified 11/14/17 14:22 Physical Exam Vitals: Vital Signs Temp Pulse Pulse Resp BP BP Pulse Ox 11/15/17 06:04 97.0 F L 72 18 187/76 95 11/14/17 23:00 97.6 F 72 18 137/71 96 11/14/17 19:45 97.4 F L 69 16 142/71 11/14/17 19:43 97.4 F L 69 16 142/71 11/14/17 17:31 98.1 F 72 16 164/76 96 11/14/17 17:18 98.1 F 72 164/76 96 11/14/17 16:59 97.6 F 68 20 168/71 99 11/14/17 16:48 97.6 F 75 20 168/78 97 11/14/17 16:38 97.5 F L 79 18 168/77 11/14/17 15:43 65 20 152/72 97 11/14/17 13:40 97.5 F L 89 18 114/56 98 Intake and Output 11/14/17 11/15/17 11/15/17 22:59 06:59 14:59 Intake Total 0 Output Total 100 Balance -100 Intake: Blood Product 0 Rc As-1 Unit 0 [id number] Output: Urine 100 Other: # Voids 1 2 Weight 85 kg Blood pressure 187/76 heart rate 72 afebrile maintaining oxygen saturation on room air GENERAL: This is a 67-year-old occasion male in no apparent distress at the time of my examination. Pallor. HEENT: Head is atraumatic, normocephalic. Pupils are equal, round. Sclerae anicteric. Conjunctivae are clear. Mucous membranes of the mouth are moist. Neck is supple. There is no jugular venous distention. No carotid bruit is heard. LUNGS: Clear to auscultation no wheezes, rales or rhonchi. No chest wall tenderness is noted on palpation or with deep breathing. Diminished bilaterally HEART: Regular rate and rhythm with systolic ejection murmur at the base, no rubs or gallops. S1 and S2 heard. ABDOMEN: Soft, nontender. Bowel sounds are heard. No organomegaly noted. EXTREMITIES: No evidence of peripheral edema and no calf tenderness noted. VASCULAR: Radial and dorsalis pedis pulses palpated, no evidence of clubbing. NEUROLOGIC: Patient is awake, alert and oriented x3. Results 11/15/17 09:35 11/15/17 09:36 Cardiac Enzymes 11/14/17 11/14/17 11/14/17 Range/Units 14:46 14:46 20:20 AST 12 L (17-59) U/L Troponin I <0.012 <0.012 (0.000-0.034) ng/mL 11/15/17 Range/Units 02:00 AST (17-59) U/L Troponin I <0.012 (0.000-0.034) ng/mL Coagulation 11/14/17 Range/Units 14:46 PT 9.3 (9.0-12.0) sec APTT 22.9 (22.0-30.0) sec CBC 11/14/17 11/14/17 11/15/17 Range/Units 14:46 20:20 02:00 WBC 7.8 9.2 8.9 (3.8-10.6) k/uL RBC 2.50 L 2.78 L 2.78 L (4.30-5.90) m/uL Hgb 7.7 L 8.7 L 8.7 L (13.0-17.5) gm/dL Hct 24.7 L 27.1 L 26.8 L (39.0-53.0) % Plt Count 357 322 330 (150-450) k/uL Comprehensive Metabolic Panel 11/14/17 Range/Units 14:46 Sodium 137 (137-145) mmol/L Potassium 5.2 H (3.5-5.1) mmol/L Chloride 104 (98-107) mmol/L Carbon Dioxide 24 (22-30) mmol/L BUN 23 H (9-20) mg/dL Creatinine 1.59 H (0.66-1.25) mg/dL Glucose 249 H (74-99) mg/dL Calcium 8.9 (8.4-10.2) mg/dL AST 12 L (17-59) U/L ALT 17 L (21-72) U/L Alkaline Phosphatase 76 (38-126) U/L Total Protein 5.5 L (6.3-8.2) g/dL Albumin 3.0 L (3.5-5.0) g/dL Current Medications Generic Name Dose Route Start Last Admin Trade Name Freq PRN Reason Stop Dose Admin Acetaminophen 650 mg 11/14/17 16:06 11/14/17 20:07 Tylenol Tab PO 650 mg Q6HR PRN Administration Mild Pain or Fever > 100.5 Alprazolam 0.5 mg 11/14/17 19:15 11/14/17 20:09 Xanax PO 0.5 mg TID PRN Administration Anxiety Atorvastatin Calcium 20 mg 11/14/17 21:00 11/14/17 20:03 Lipitor PO 20 mg HS [facility] Administration Cyanocobalamin 500 mcg 11/15/17 12:00 11/15/17 08:39 Vitamin B-12 PO 500 mcg 1200 [facility] Administration Ferrous Sulfate 325 mg 11/15/17 12:00 11/15/17 08:39 Feosol PO 325 mg 1200 [facility] Administration Gabapentin 600 mg 11/14/17 22:00 11/15/17 08:39 Neurontin PO 600 mg TID [facility] Administration Insulin Aspart 0 unit 11/14/17 17:30 11/15/17 07:42 Novolog SQ Not Given ACHS [facility] Protocol Insulin Detemir 10 unit 11/14/17 21:00 11/14/17 21:43 Levemir SQ Not Given HS [facility] Isosorbide Mononitrate 60 mg 11/15/17 09:00 11/15/17 08:39 Imdur PO 60 mg DAILY [facility] Administration Metoprolol Tartrate 12.5 mg 11/14/17 21:00 11/15/17 08:39 Lopressor PO 12.5 mg BID [facility] Administration Naloxone HCl 0.2 mg 11/14/17 16:06 Narcan IV Q2M PRN Opioid Reversal Naloxone HCl 0.2 mg 11/14/17 17:12 Narcan IV Q2M PRN Opioid Reversal Nicotine 1 patch 11/15/17 09:00 11/15/17 08:40 Habitrol 21mg/24hr Patch TRANSDERM Not Given DAILY [facility] Ondansetron HCl 4 mg 11/14/17 16:06 Zofran IVP Q8HR PRN Nausea And Vomiting Pantoprazole Sodium 40 mg 11/15/17 09:00 11/15/17 08:40 Protonix IV 40 mg DAILY [facility] Administration Senna/Docusate Sodium 2 each 11/14/17 16:15 Senokot-S PO TID PRN Constipation Tramadol HCl 50 mg 11/14/17 22:00 11/15/17 08:40 Ultram PO 50 mg TID [facility] Administration Intake and Output 11/14/17 11/15/17 11/15/17 22:59 06:59 14:59 Intake Total 0 Output Total 100 Balance -100 Intake: Blood Product 0 Rc As-1 Unit 0 [id number] Output: Urine 100 Other: # Voids 1 2 Weight 85 kg 11/15/17 02:00 11/14/17 14:46 Assessment and Plan Assessment: ASSESSMENT 1. Chest pain, atypical. No EKG evidence of ischemia negative cardiac enzymes. Acute coronary event has been ruled out. Shortness of breath most likely secondary to anemia. 2. History of coronary artery disease, those records aren't available to me although we will attempt to obtain them from the [place]. 3. Hypertension 4. Dyslipidemia 5. Diabetes mellitus 6. Chronic tobacco abuse 7. Dilated aortic root, 4 cm 8. Chronic kidney disease, stage 3a PLAN Increase metoprolol 25 mg twice a day. Smoking cessation discussed. An acute coronary event has been ruled out. Symptoms most likely related to anemia. The symptoms have resolved with blood transfusion. Follow-up with primary leasing agent at the [place] clinic. Thank you kindly for this consultation. Nurse Practitioner note has been reviewed, I agree with a documented findings and plan of care. Patient was seen and examined.
--- NOTE | 2017-11-15 16:04 | XR ---
EXAMINATION TYPE: XR chest 2V DATE OF EXAM: 11/15/2017 COMPARISON: Prior chest 07/18/2017 HISTORY: Shortness of breath TECHNIQUE: Frontal and lateral views of the chest are obtained. FINDINGS: There is no focal air space opacity, pleural effusion, or pneumothorax seen. The cardiac silhouette size is stable. Perihilar vascular indistinctness is suspected. The osseous structures ar e intact. There are overlying cardiac leads. Interstitium is mildly increased. Prominent lung volume may be indicative of COPD. IMPRESSION: Correlate to exclude pulmonary venous hypertension and early interstitial edema. Follow- up is suggested.
[2017-11-15 17:38] LABS: Glucose,Whole Blood 126 mg/dL (75-99)
[2017-11-15 19:04] LABS: Hemoglobin A1C 4.8 % (4.0-6.0)
[2017-11-15 20:50] LABS: Glucose,Whole Blood 215 mg/dL (75-99)
[2017-11-15] MEDS: INSULIN DETEMIR 100 UNIT/ML 10 ML VIAL SQ SCH (22:01)
[2017-11-15] MEDS: METOPROLOL TARTRATE 25 MG TAB PO SCH (22:02)
[2017-11-15] MEDS: ATORVASTATIN 20 MG TAB PO SCH (22:02)
[2017-11-15 23:24] VITALS: RESP 20
[2017-11-16 02:06] LABS: Glucose,Whole Blood 77 mg/dL (75-99)
[2017-11-16 07:04] VITALS: BP 175/74; PULSE 64; TEMP 96.7
[2017-11-16 07:30] LABS: Glucose,Whole Blood 138 mg/dL (75-99)
[2017-11-16] MEDS: METOPROLOL TARTRATE 25 MG TAB PO SCH (07:37)
[2017-11-16] MEDS: NICOTINE 21MG/24HR PATCH TRANSDERM SCH (07:37)
[2017-11-16] MEDS: ISOSORBIDE MONONITRATE ER 60 MG TAB.ER.24H PO SCH (07:37)
[2017-11-16] MEDS: PANTOPRAZOLE 40 MG/10 ML VIAL IV SCH (07:37)
[2017-11-16] MEDS: traMADol 50 MG TAB PO SCH (07:37)
[2017-11-16] MEDS: GABAPENTIN 300 MG CAP PO SCH (07:37)
[2017-11-16] MEDS: INSULIN ASPART 100 UNIT/ML 1 ML 10 ML VIAL SQ SCH ×2 (07:38→12:37)
[2017-11-16 07:54] LABS: HCT 31.1 % (39.0-53.0); Hypochromasia Slight; MCH 31.3 pg (25.0-35.0); MCHC 32.1 g/dL (31.0-37.0); MCV 97.7 fL (80.0-100.0); Mean Platelet Volume 8.7; Platelet Count 356 k/uL (150-450); RBC 3.18 m/uL (4.30-5.90); RDW 15.5 % (11.5-15.5); WBC 8.5 k/uL (3.8-10.6)
[2017-11-16 08:08] LABS: Calcium 9.1 mg/dL (8.4-10.2); Potassium 4.7 mmol/L (3.5-5.1)
--- NOTE | 2017-11-16 08:39 | P.CONS ---
History of Present Illness - Reason for Consult Consult date: 11/15/17 Anemia and Hemoccult-positive stools - History of Present Illness The patient is a 67-year-old male who was referred from his primary doctor's office because of anemia. The patient has been on aspirin and Plavix which was held. He received 1 unit of packed cells. His stools was found to be occult positive but denied any overt bleeding. The patient that an episode of bleeding in July 2017 and he had both an upper endoscopy and colonoscopy. He was found to have chronic gastritis and 2 polyps were removed from his colon. The patient is tolerating liquid diet and denies any abdominal symptoms, nausea , vomiting, dysphagia or any bowel issues. Review of Systems Constitutional: Denies fever, chills, sweats, weight gain, or loss. HEENT: Negative for migraines, blurred vision or loss, earaches, drainage, tinnitus, oral mucosal lesions, dysphagia, or odynophagia. CARDIAC: Negative for chest pain, arrhythmias, or palpitation. RESPIRATORY: Negative for shortness of breath, hemoptysis, cough, or sputum production. GI: See HPI for pertinent findings. : Negative for hematuria, urgency, frequency, polyuria, or dysuria. MUSCULOSKELETAL: Negative for muscle aches, swelling, arthritis, and arthralgias. NEUROLOGIC: Negative for stroke or TIA. ENDOCRINE: Negative for thyroid problems. SKIN: Negative for rash or itching. PSYCHIATRIC: Negative history for depression and anxiety Past Medical History Past Medical History: Coronary Artery Disease (CAD), Chest Pain / Angina, Diabetes Mellitus, Hyperlipidemia, Hypertension, Vascular Disorder Additional Past Medical History / Comment(s): insomnia, abdominal distention that comes and goes, IDDM type II, low back pain with bilateral sciatica/ neuropathy, DJD, past partial SBO treated conservatively, carotid disease History of Any Multi-Drug Resistant Organisms: None Reported Past Surgical History: Cholecystectomy, Heart Catheterization Additional Past Surgical History / Comment(s): R caratid stent, EGD/colonoscopy July 2017 Past Anesthesia/Blood Transfusion Reactions: No Reported Reaction Past Psychological History: No Psychological Hx Reported Smoking Status: Current every day smoker Past Alcohol Use History: None Reported Past Drug Use History: None Reported - Past Family History Father History Unknown: Yes Mother Family Medical History: Cancer Additional Family Medical History / Comment(s): Mother from metastatic cancer pelvic origin Medications and Allergies Home Medications Medication Instructions Recorded Confirmed Type Cyanocobalamin [Vitamin B-12] 500 mcg PO DAILY 07/18/17 11/14/17 History Ergocalciferol (Vitamin D2) 50,000 unit PO Q14D 07/18/17 11/14/17 History [Vitamin D2] Gabapentin [Neurontin] 600 mg PO TID 07/18/17 11/14/17 History Insulin Glargine,Hum.rec.anlog 10 unit SQ HS 07/18/17 11/14/17 History [Lantus Solostar] Isosorbide Mononitrate ER [Imdur] 60 mg PO DAILY 07/18/17 11/14/17 History Metoprolol Tartrate [Lopressor] 12.5 mg PO BID 07/18/17 11/14/17 History Ranitidine HCl [Zantac] 150 mg PO BID 07/18/17 11/14/17 History Simvastatin [Zocor] 40 mg PO HS 07/18/17 11/14/17 History glipiZIDE [Glucotrol] 10 mg PO AC-TID 07/18/17 11/14/17 History metFORMIN HCL [Glucophage] 1,000 mg PO BID 07/18/17 11/14/17 History traMADol HCL [Ultram] 50 mg PO TID 07/18/17 11/14/17 History Ferrous Sulfate [Iron] 325 mg PO DAILY #1 07/20/17 11/14/17 Rx Aspirin EC [Ecotrin Low Dose] 81 mg PO DAILY 11/14/17 11/14/17 History Clopidogrel Bisulfate [Plavix] 75 mg PO DAILY 11/14/17 11/14/17 History Sennosides-Docusate Sodium 2 tab PO TID PRN 11/14/17 11/14/17 History [Senokot-S] Allergies Allergy/AdvReac Type Severity Reaction Status Date / Time No Known Allergies Allergy Verified 11/14/17 14:22 Physical Exam Vitals: Vital Signs Temp Pulse Pulse Resp BP BP Pulse Ox 11/15/17 15:00 97.1 F L 67 24 138/72 98 11/15/17 06:04 97.0 F L 72 18 187/76 95 11/14/17 23:00 97.6 F 72 18 137/71 96 03/29/18 19:45 97.4 F L 69 16 142/71 11/14/17 19:43 97.4 F L 69 16 142/71 11/14/17 17:31 98.1 F 72 16 164/76 96 11/14/17 17:18 98.1 F 72 164/76 96 Intake and Output 11/15/17 11/15/17 11/15/17 06:59 14:59 22:59 Intake Total 800 Balance 800 Intake: IV 800 Sodium Chloride 0.9% 1, 800 000 ml @ 100 mls/hr IV . Q10H STA Rx#:[id number] Other: # Voids 2 1 Weight 85 kg General appearance: The patient is alert, oriented, in no acute distress. HET: Head is normocephalic and atraumatic. Pupils are equal and reactive. Oropharynx is clear without lesions. Neck: Supple without lymphadenopathy. Trachea midline. Heart: S1 S2. Regular rate and rhythm. Lungs: No crackles or wheezes are heard. Abdomen: Soft, nontender, nondistended with bowel sounds. No peritoneal signs. No palpable organomegaly or masses. Extremities: Normal skin color and turgor. No cyanosis, rash, ulceration, clubbing, or edema. Radial and pedal pulses are 2/4 bilaterally. Neurological: No focal deficits. Strength and sensation are grossly intact. Results CBC & Chem 7: 11/16/17 07:31 11/16/17 07:31 Labs: Abnormal Lab Results - Last 24 Hours (Table) 11/14/17 11/14/17 11/14/17 Range/Units 14:46 17:49 20:20 RBC (4.30-5.90) m/uL Hgb (13.0-17.5) gm/dL Hct (39.0-53.0) % RDW (11.5-15.5) % Retic Count (0.5-2.0) % Creatinine (0.66-1.25) mg/dL Glucose (74-99) mg/dL POC Glucose (mg/dL) 156 H (75-99) mg/dL Iron 39 L (65-175) ug/dL Iron Saturation 11.21 L (15.00-50.00) AST (17-59) U/L ALT (21-72) U/L Total Protein (6.3-8.2) g/dL Albumin (3.5-5.0) g/dL Crossmatch See Detail 11/14/17 11/14/17 11/15/17 Range/Units 20:20 21:25 02:00 RBC 2.78 L 2.78 L (4.30-5.90) m/uL Hgb 8.7 L 8.7 L (13.0-17.5) gm/dL Hct 27.1 L 26.8 L (39.0-53.0) % RDW (11.5-15.5) % Retic Count (0.5-2.0) % Creatinine (0.66-1.25) mg/dL Glucose (74-99) mg/dL POC Glucose (mg/dL) 123 H (75-99) mg/dL Iron (65-175) ug/dL Iron Saturation (15.00-50.00) AST (17-59) U/L ALT (21-72) U/L Total Protein (6.3-8.2) g/dL Albumin (3.5-5.0) g/dL Crossmatch 11/15/17 11/15/17 11/15/17 Range/Units 02:00 02:05 07:31 RBC (4.30-5.90) m/uL Hgb (13.0-17.5) gm/dL Hct (39.0-53.0) % RDW (11.5-15.5) % Retic Count 4.0 H (0.5-2.0) % Creatinine (0.66-1.25) mg/dL Glucose (74-99) mg/dL POC Glucose (mg/dL) 117 H 136 H (75-99) mg/dL Iron (65-175) ug/dL Iron Saturation (15.00-50.00) AST (17-59) U/L ALT (21-72) U/L Total Protein (6.3-8.2) g/dL Albumin (3.5-5.0) g/dL Crossmatch 11/15/17 11/15/17 11/15/17 Range/Units 09:35 09:36 11:26 RBC 2.91 L (4.30-5.90) m/uL Hgb 9.1 L (13.0-17.5) gm/dL Hct 28.5 L (39.0-53.0) % RDW 15.6 H (11.5-15.5) % Retic Count (0.5-2.0) % Creatinine 1.40 H (0.66-1.25) mg/dL Glucose 132 H (74-99) mg/dL POC Glucose (mg/dL) 158 H (75-99) mg/dL Iron (65-175) ug/dL Iron Saturation (15.00-50.00) AST 14 L (17-59) U/L ALT 13 L (21-72) U/L Total Protein 5.3 L (6.3-8.2) g/dL Albumin 2.8 L (3.5-5.0) g/dL Crossmatch Assessment and Plan Assessment: Anemia likely related to blood loss. A bleeding source along the length of the GI tract will continue to be considered. The patient denied any overt bleeding. I will not schedule repeat upper endoscopy or colonoscopy at this time but would consider a capsule endoscopy before resuming his antiplatelet medications. We will advance his diet and check his blood counts in the morning and plan accordingly.
[2017-11-16] MEDS: FERROUS SULFATE 325 MG TAB PO SCH (11:03)
[2017-11-16] MEDS: CYANOCOBALAMIN 500 MCG TAB PO SCH (11:03)
--- NOTE | 2017-11-16 11:14 | P.PN ---
Subjective Progress Note Date: 11/16/17 Seen and examined for the follow-up of acute kidney injury. Doing better denies any nausea vomiting or diarrhea, hematemesis hematochezia melena. Objective - Vital Signs Vital signs: Vital Signs Temp 96.7 F L 11/16/17 07:00 Pulse 64 11/16/17 07:00 Resp 20 11/16/17 07:00 BP 175/74 11/16/17 07:00 Pulse Ox 99 11/16/17 07:00 Intake & Output 11/15/17 11/16/17 11/16/17 18:59 06:59 18:59 Intake Total 800 Balance 800 Weight 85 kg Intake: IV 800 Sodium Chloride 0.9% 1, 800 000 ml @ 100 mls/hr IV . Q10H STA Rx#:[id number] Other: Voiding Method Toilet # Voids 1 2 2 - Exam Lying in bed no acute distress S1 S2 heard Lungs clear No edema - Labs CBC & Chem 7: 11/16/17 07:31 11/16/17 07:31 Labs: Abnormal Lab Results - Last 24 Hours (Table) 11/14/17 11/15/17 11/15/17 Range/Units 20:20 02:00 09:36 RBC (4.30-5.90) m/uL Hgb (13.0-17.5) gm/dL Hct (39.0-53.0) % Retic Count 4.0 H (0.5-2.0) % Creatinine 1.40 H (0.66-1.25) mg/dL Glucose 132 H (74-99) mg/dL POC Glucose (mg/dL) (75-99) mg/dL Iron 39 L (65-175) ug/dL Iron Saturation 11.21 L (15.00-50.00) AST 14 L (17-59) U/L ALT 13 L (21-72) U/L Total Protein 5.3 L (6.3-8.2) g/dL Albumin 2.8 L (3.5-5.0) g/dL 11/15/17 11/15/17 11/15/17 Range/Units 11:26 17:36 20:49 RBC (4.30-5.90) m/uL Hgb (13.0-17.5) gm/dL Hct (39.0-53.0) % Retic Count (0.5-2.0) % Creatinine (0.66-1.25) mg/dL Glucose (74-99) mg/dL POC Glucose (mg/dL) 158 H 126 H 215 H (75-99) mg/dL Iron (65-175) ug/dL Iron Saturation (15.00-50.00) AST (17-59) U/L ALT (21-72) U/L Total Protein (6.3-8.2) g/dL Albumin (3.5-5.0) g/dL 11/16/17 11/16/17 11/16/17 Range/Units 07:20 07:31 07:31 RBC 3.18 L (4.30-5.90) m/uL Hgb 10.0 L (13.0-17.5) gm/dL Hct 31.1 L (39.0-53.0) % Retic Count (0.5-2.0) % Creatinine 1.30 H (0.66-1.25) mg/dL Glucose 127 H (74-99) mg/dL POC Glucose (mg/dL) 138 H (75-99) mg/dL Iron (65-175) ug/dL Iron Saturation (15.00-50.00) AST (17-59) U/L ALT (21-72) U/L Total Protein (6.3-8.2) g/dL Albumin (3.5-5.0) g/dL Assessment and Plan Assessment: Impression: #1 nonoliguric acute kidney injury secondary to hemodynamic ATN. #2 anemia secondary to GI loss with a recent history of acute GI bleed #3 CK D stage III baseline creatinine 1.2 #4 insulin-dependent diabetes #5 mild hyperkalemia Recommendations: #1 renal function stable continue to monitor #3 avoid nephrotoxic agents and hypotensive episodes #3 stable from nephrology point of view to be discharged to be followed up in the office in 2 weeks.
[2017-11-16 12:28] LABS: Glucose,Whole Blood 215 mg/dL (75-99)
[2017-11-16] MEDS ORDERED: SODIUM FERRIC GLUCONAT-SUCROSE 125 MG in SODIUM CHLORIDE 0.9% 100 ML IVPB ONE (12:30)
--- NOTE | 2017-11-16 13:05 | P.DS ---
Providers Date of admission: 11/14/17 16:06 Expected date of discharge: 11/16/17 Attending physician: Cirilo Weaver MD Consults: 11/14/17 16:06 Consult Physician Stat Consulting Provider: Keri Garcia Consult Reason/Comments: upper GI bleed bleedupper GI Do you want consulting provider notified?: Yes Consult Physician Stat Consulting Provider: Yulissa Ivory Consult Reason/Comments: Renal disease and anemia , GI bleed, Do you want consulting provider notified?: Yes 11/14/17 17:18 Consult Physician Routine Consulting Provider: Yasmani Garcia Consult Reason/Comments: chest pain dyspnea Do you want consulting provider notified?: Yes 11/16/17 07:58 Consult Physician Routine Consulting Provider: Lucas Singletary Consult Reason/Comments: hypoproliferative anemia, Fe deficiency (was on iron but hemoccult +) Do you want consulting provider notified?: Yes Primary care physician: [facility] - Discharge Diagnosis(es) (1) Symptomatic anemia Current Visit: Yes Status: Acute (2) Iron deficiency anemia Current Visit: Yes Status: Acute (3) MICHELLE (acute kidney injury) Current Visit: Yes Status: Acute (4) CKD (chronic kidney disease), stage III Current Visit: Yes Status: Acute (5) DM2 (diabetes mellitus, type 2) Current Visit: Yes Status: Acute (6) Non-cardiac chest pain Current Visit: Yes Status: Acute (7) Mild protein-calorie malnutrition Current Visit: Yes Status: Acute (8) GI bleed Current Visit: Yes Status: Acute Hospital Course: Patient is a 67-year-old male with past medical history of diabetes mellitus type 2, high cholesterol, carotid artery disease, neuropathy, and chronic low back pain who presented to the emergency department and direction of his primary care physician for hemoglobin of 7.3. In the ER he underwent an extensive evaluation. His initial vital signs were within normal limits. Initial laboratory analysis showed a hemoglobin of 7.7 down from 9.9 in July 2017. His potassium was slightly elevated at 5.2. His BUN and creatinine were elevated. Fecal occult blood was positive. He was ordered 1 unit of packed red blood cells and arrangements were made for admission. He had an episode of rectal bleeding and a nosebleed in the same day approximately 5 days before admission. He was hospitalized here in July 2017 with a GI bleed. At that point in time he underwent EGD and colonoscopy. EGD showed chronic gastritis colonoscopy revealed 2 polyps one that was an adenoma and one that was an adenoma with hyperplastic polyp. He has also been suffering from night sweats his A1C was 5.3 in June, repeat A1C was 4.8. His hemoglobin remained stable and he did not have any bleeding on the morning after admission. He was also having chest pain and was seen by cardiology. Nephrology was consulted by the ED for elevated Cr, he was noted to have diabetic CKD and MICHELLE. His renal function improved with improvement of his anemia. She was found have severe iron deficiency with a ferritin of 27 and a low reticcount 4% . His reticulocyte index was 1.7. He has been taking oral iron therapy at home. He will receive 1 dose of IV iron prior to discharge. He will increase his ferrous sulfate to 3 times daily. We'll add vitamin C to aid with absorption. He was seen by GI who did not recommend repeat inpatient EGD or colonoscopy at this point in time, but wants to perform an outpatient capsule endoscopy. They recommended staying off his antiplatelet therapy until this could be obtained. His hemoglobin remained stable and had no additional signs of bleeding during hospitalization. He was seen by cardiology who felt his dyspnea was likely secondary to anemia. His dyspnea had improved after 1 unit of packed red blood cells. After much consideration his Lantus will be discontinued along with his glipizide. Despite being off metformin and glipizide his 2 AM blood sugar was 77. He was determined stable for discharge home. He will need to follow-up with GI as an outpatient. I also recommended evaluation with hematology oncology as an outpatient for possible IV iron in the future. Patient seen and examined at bedside. No chest pain or shortness of breath. Feeling much better overall. Dizziness is completely resolved. No additional blood in his stool. Vital signs reviewed and stable. General: non toxic, no distress, appears at stated age Derm: warm, dry Head: atraumatic, normocephalic, symmetric Eyes: EOMI, no lid lag, anicteric sclera Mouth: no lip lesion, mucus membranes moist Cardiovascular: S1S2 reg, no murmur, positive posterior tibial pulse bilateral, Lungs: CTA bilateral, no rhonchi, no rales , no accessory muscle use Abdominal: soft, nontender to palpation, no guarding, no appreciable organomegaly Ext: no gross muscle atrophy, no edema, no contractures Neuro: CN II-XI grossly intact, no focal neuro deficits Psych: Alert, oriented, appropriate affect A total of 35 minutes of time were spent preparing this complex discharge summary . Pertinent Studies: KUB-constipation Echocardiogram-preserved ejection fraction of 55-60%, no significant valvular dysfunction Patient Condition at Discharge: Good Plan - Discharge Summary Discharge Rx Participant: Yes New Discharge Prescriptions: New Ferrous Sulfate [Iron (65 MG Elemental)] 325 mg PO AC-TID #0 tab Continue Metoprolol Tartrate [Lopressor] 12.5 mg PO BID Gabapentin [Neurontin] 600 mg PO TID Simvastatin [Zocor] 40 mg PO HS Isosorbide Mononitrate ER [Imdur] 60 mg PO DAILY Ranitidine HCl [Zantac] 150 mg PO BID Ergocalciferol (Vitamin D2) [Vitamin D2] 50,000 unit PO Q14D Cyanocobalamin [Vitamin B-12] 500 mcg PO DAILY metFORMIN HCL [Glucophage] 1,000 mg PO BID traMADol HCL [Ultram] 50 mg PO TID Sennosides-Docusate Sodium [Senokot-S] 2 tab PO TID PRN PRN Reason: Constipation Discontinued Insulin Glargine,Hum.rec.anlog [Lantus Solostar] 10 unit SQ HS glipiZIDE [Glucotrol] 10 mg PO AC-TID Ferrous Sulfate [Iron] 325 mg PO DAILY #1 Aspirin EC [Ecotrin Low Dose] 81 mg PO DAILY Clopidogrel Bisulfate [Plavix] 75 mg PO DAILY Discharge Medication List Cyanocobalamin [Vitamin B-12] 500 mcg PO DAILY 07/18/17 [History] Ergocalciferol (Vitamin D2) [Vitamin D2] 50,000 unit PO Q14D 07/18/17 [History] Gabapentin [Neurontin] 600 mg PO TID 07/18/17 [History] Isosorbide Mononitrate ER [Imdur] 60 mg PO DAILY 07/18/17 [History] Metoprolol Tartrate [Lopressor] 12.5 mg PO BID 07/18/17 [History] Ranitidine HCl [Zantac] 150 mg PO BID 07/18/17 [History] Simvastatin [Zocor] 40 mg PO HS 11/30/17 [History] metFORMIN HCL [Glucophage] 1,000 mg PO BID 07/18/17 [History] traMADol HCL [Ultram] 50 mg PO TID 07/18/17 [History] Sennosides-Docusate Sodium [Senokot-S] 2 tab PO TID PRN 11/14/17 [History] Ferrous Sulfate [Iron (65 MG Elemental)] 325 mg PO AC-TID #0 tab 11/16/17 [Rx] Follow up Appointment(s)/Referral(s): [facility] [Primary Care Provider] - 1-2 days Francisco Wise MD [STAFF PHYSICIAN] - 1 Week Lucas Singletary MD [STAFF PHYSICIAN] - 2 Weeks Patient Instructions/Handouts: Gastrointestinal Bleeding (DC) Activity/Diet/Wound Care/Special Instructions: carb consistent diet activity as tolerated Melatonin 3-5 mg nightly Vitamin C 500mg daily check blood sugar once daily Discharge Disposition: HOME SELF-CARE
--- NOTE | 2017-11-29 10:30 | CDI ---
Last Revision, July 2017 Documentation Clarification Form Date: 11/29/17 From: BRISSA Koch Phone: If you have question, contact Karen Bruner Baseball Scout at Admit Date: 11/14/2017 4:06:00 PM Patient Name: Jack Egan Visit Number: [id number] Discharge Date: 11/16/17 ATTENTION: The Clinical Documentation Specialists (CDI) and [facility] Coding Staff appreciate your assistance in clarifying documentation. Please respond to the clarification below the line at the bottom and electronically sign. The CDI & [facility] Coding staff will review the response and follow-up if needed. Please note: Queries are made part of the Legal Health Record. If you have any questions, please contact the author of this message via ITS. Dr. Cirilo Weaver Patient was admitted with symptomatic anemia with a hemoglobin of 7.7. He was transfused one unit of PRBCs. He had had an episode of rectal bleeding and epistaxsis 5 days prior to arrival. There is documentation of anemia likely related to blood loss, acute anemia and anemia secondary to GI loss with recent history of acute GI bleed. Further clarification regarding this blood loss anemia is needed for proper reporting purposes. Please clarify: Acute blood loss anemia Chronic blood loss anemia Acute on chronic blood loss anemia Other (please specify) I was not involved in this patients care, please refer to the documentation in the EMR and route this query accordingly MTDD
--- NOTE | 2017-11-29 10:36 | CDI ---
Last Revision, July 2017 Documentation Clarification Form Date: 11/29/17 From: Gerri Martinez Phone: If you have question, contact Karen Josephyeisonalex, Inspector Semiconductor Wafer at Admit Date: 11/14/2017 4:06:00 PM Patient Name: Jack Egan Visit Number: [id number] Discharge Date: 11/16/17 ATTENTION: The Clinical Documentation Specialists (CDI) and [facility] Coding Staff appreciate your assistance in clarifying documentation. Please respond to the clarification below the line at the bottom and electronically sign. The CDI & [facility] Coding staff will review the response and follow-up if needed. Please note: Queries are made part of the Legal Health Record. If you have any questions, please contact the author of this message via ITS. Dr. Eduardo French Conflicting documentation has been found in the medical record. Nephrology was consulted because of a creatinine of 1.59 on admission. Your assessment, dated 11/15, is Nonoliguric acute kidney injury mostly prerenal secondary to anemia. Progress note dated 11/16, documented by a different accordion repairer, states nonoliguric acute kidney injury secondary to hemodynamic ATN. In your opinion what is the most clinically appropriate diagnosis for this patient? ATN MICHELLE only, no ATN found Other explanation of clinical findings Unable to determine (no explanation for clinical findings) AKI only, no ATN ___ MTDD
--- NOTE | 2017-12-04 13:40 | CDI ---
Documentation Clarification Form Date: 12/04/17 From: BRISSA Koch Phone: If you have question, contact Karen Josephyeisonalex, Hydro Pneumatic Tester at Admit Date: 11/14/2017 4:06:00 PM Patient Name: Jack Egan Visit Number: [id number] Discharge Date: 11/16/17 ATTENTION: The Clinical Documentation Specialists (CDI) and [facility] Coding Staff appreciate your assistance in clarifying documentation. Please respond to the clarification below the line at the bottom and electronically sign. The CDI & [facility] Coding staff will review the response and follow-up if needed. Please note: Queries are made part of the Legal Health Record. If you have any questions, please contact the phone # at top of this request. Dr. Mccain, Patient was admitted with symptomatic anemia with a hemoglobin of 7.7. Transfused one unit of PRBCs. He had an episode of rectal bleeding and epistaxsis 5 days prior to arrival. There is conflicting documentation in the record of anemia likely related to blood loss, acute anemia and anemia secondary to GI loss with recent history of acute GI bleed and discharge summary states - "Acute symptomatic anemia" and "Acute iron deficiency anemia." Further clarification regarding this anemia is needed for proper reporting purposes. Please clarify: Acute blood loss anemia Chronic blood loss anemia Acute on chronic blood loss anemia Other (please specify) Thank you for your assistance. Acute blood loss anemia MTDD
== END 2017-11-16 14:10 | disposition home or self-care (01) | DRG 812 ==
LOC: SUPCPDRO 13:23 → EC 13:23 → 4MS4W 16:06
PROVIDERS: ADMIT Family Medicine; ATTEND Family Medicine
PROC: 30233N1 Transfusion of Nonautologous Red Blood Cells into Peripheral Vein, Percutaneous Approach (ICD-10-PCS; principal; 2017-11-14)
DX: D62 Acute posthemorrhagic anemia (principal); N17.9 Acute kidney failure, unspecified; E11.22 Type 2 diabetes mellitus with diabetic chronic kidney disease; E11.40 Type 2 diabetes mellitus with diabetic neuropathy, unspecified; E11.319 Type 2 diabetes mellitus with unspecified diabetic retinopathy without macular edema; K62.5 Hemorrhage of anus and rectum; E44.1 Mild protein-calorie malnutrition; N18.3 Chronic kidney disease, stage 3 (moderate); I12.9 Hypertensive chronic kidney disease with stage 1 through stage 4 chronic kidney disease, or unspecified chronic kidney disease; I25.10 Atherosclerotic heart disease of native coronary artery without angina pectoris; E78.5 Hyperlipidemia, unspecified; R14.0 Abdominal distension (gaseous); M54.5 Low back pain; G89.29 Other chronic pain; E87.5 Hyperkalemia; F17.200 Nicotine dependence, unspecified, uncomplicated; K21.9 Gastro-esophageal reflux disease without esophagitis; E11.51 Type 2 diabetes mellitus with diabetic peripheral angiopathy without gangrene; E78.00 Pure hypercholesterolemia, unspecified; K29.50 Unspecified chronic gastritis without bleeding; I77.810 Thoracic aortic ectasia; Z79.02 Long term (current) use of antithrombotics/antiplatelets; Z79.82 Long term (current) use of aspirin; Z79.899 Other long term (current) drug therapy; Z90.49 Acquired absence of other specified parts of digestive tract; Z71.6 Tobacco abuse counseling; Z79.4 Long term (current) use of insulin; Z87.19 Personal history of other diseases of the digestive system; Z86.010 Personal history of colon polyps; Z68.29 Body mass index [BMI] 29.0-29.9, adult
CPT/HCPCS: 36415; 71046; 74018; 76700; 80048; 80053; 81001; 82150; 82272; 82607; 82728; 82747; 83036; 83540; 83550; 83690; 83735; 84484; 85025; 85027; 85045; 85610; 85730; 86850; 86900; 86901; 86920; 93005; 93306; 96360; 96361; 99284

== ENCOUNTER 2018-02-10 20:46 | Inpatient (IN) | payer OTHER, MEDICARE ==
[2018-02-10 21:26] LABS: Anisocytosis Slight; Basophils % (A) 0 %; Eosinophils # (A) 0.1 k/uL (0-0.7); Eosinophils % (A) 1 %; HCT 20.2 % (39.0-53.0); Hypochromasia Slight; Lymphocytes # (A) 1.6 k/uL (1.0-4.8); Lymphocytes % (A) 17 %; MCH 30.5 pg (25.0-35.0); MCHC 32.5 g/dL (31.0-37.0); Macrocytosis Slight; Mean Platelet Volume 8.2; Monocytes # (A) 0.5 k/uL (0-1.0); Monocytes % (A) 5 %; Neutrophils # (A) 7.1 k/uL (1.3-7.7); Neutrophils % (A) 75 %; Platelet Count 400 k/uL (150-450); RBC 2.15 m/uL (4.30-5.90); RDW 17.5 % (11.5-15.5); WBC 9.4 k/uL (3.8-10.6)
[2018-02-10 21:34] LABS: HGB 6.6 gm/dL (13.0-17.5)
[2018-02-10] MEDS ORDERED: PANTOPRAZOLE 40 MG/10 ML VIAL IVP STA (21:40)
[2018-02-10 21:47] LABS: ALT 22 U/L (21-72); AST 14 U/L (17-59); Albumin 3.1 g/dL (3.5-5.0); Alkaline Phosphatase 77 U/L (38-126); Anion Gap 7 mmol/L; Blood Urea Nitrogen 30 mg/dL (9-20); Calcium 9.5 mg/dL (8.4-10.2); Carbon Dioxide 29 mmol/L (22-30); Chloride 101 mmol/L (98-107); Glucose 218 mg/dL (74-99); Potassium 4.9 mmol/L (3.5-5.1); Sodium 137 mmol/L (137-145); Total Bilirubin <0.1 mg/dL (0.2-1.3); Total Protein 5.5 g/dL (6.3-8.2)
[2018-02-10 21:48] LABS: Creatine Kinase 39 U/L (55-170); INR 0.9 (<1.2); Prothrombin Time 9.3 sec (9.0-12.0)
[2018-02-10 21:52] LABS: Partial Thromboplastin Time 21.3 sec (22.0-30.0)
--- NOTE | 2018-02-10 21:54 | ED ---
General Adult HPI - General Chief complaint: Dizziness Stated complaint: Recheck Labs Time Seen by Provider: 02/10/18 21:28 Source: patient, RN notes reviewed, old records reviewed Mode of arrival: wheelchair Limitations: no limitations - History of Present Illness Initial comments: 67-year-old male presents with abnormal outpatient laboratory studies. He did have a hemoglobin of 6.2. Patient has been dealing with anemia for the past several months. He previously had GI bleed. Denies melena or bright red rectal bleeding at this time. He is currently on aspirin and Plavix. Patient denies any pain complaints. He has had some exertional dyspnea and lightheadedness. No dysuria or hematuria. No abdominal pain nausea vomiting. - Related Data Home Medications Medication Instructions Recorded Confirmed Cyanocobalamin [Vitamin B-12] 500 mcg PO DAILY 07/18/17 02/10/18 Ergocalciferol (Vitamin D2) 50,000 unit PO Q14D 07/18/17 02/10/18 [Vitamin D2] Gabapentin [Neurontin] 600 mg PO TID 07/18/17 02/10/18 Isosorbide Mononitrate ER [Imdur] 60 mg PO DAILY 07/18/17 02/10/18 Metoprolol Tartrate [Lopressor] 12.5 mg PO BID 07/18/17 02/10/18 Ranitidine HCl [Zantac] 150 mg PO BID 07/18/17 02/10/18 Simvastatin [Zocor] 40 mg PO HS 07/18/17 02/10/18 metFORMIN HCL [Glucophage] 1,000 mg PO BID 07/18/17 02/10/18 traMADol HCL [Ultram] 50 mg PO TID 07/18/17 02/10/18 Aspirin EC [Ecotrin Low Dose] 81 mg PO DAILY 02/10/18 02/10/18 Clopidogrel [Plavix] 75 mg PO DAILY 02/10/18 02/10/18 Ferrous Sulfate [Iron (65 MG 325 mg PO BID 02/10/18 02/10/18 Elemental)] Insulin Glargine [Lantus] 10 unit SQ HS 02/10/18 02/10/18 Sennosides-Docusate Sodium 2 tab PO TID PRN 02/10/18 02/10/18 [Senokot-S] Allergies Allergy/AdvReac Type Severity Reaction Status Date / Time No Known Allergies Allergy Verified 02/10/18 21:45 Review of Systems ROS Statement: Those systems with pertinent positive or pertinent negative responses have been documented in the HPI. ROS Other: All systems not noted in ROS Statement are negative. Past Medical History Past Medical History: Coronary Artery Disease (CAD), Chest Pain / Angina, Diabetes Mellitus, Hyperlipidemia, Hypertension, Vascular Disorder Additional Past Medical History / Comment(s): insomnia, abdominal distention that comes and goes, IDDM type II, low back pain with bilateral sciatica/ neuropathy, DJD, past partial SBO treated conservatively, carotid disease History of Any Multi-Drug Resistant Organisms: None Reported Past Surgical History: Cholecystectomy, Heart Catheterization Additional Past Surgical History / Comment(s): R caratid stent, EGD/colonoscopy July 2017 Past Anesthesia/Blood Transfusion Reactions: No Reported Reaction Past Psychological History: No Psychological Hx Reported Smoking Status: Current every day smoker Past Alcohol Use History: None Reported Past Drug Use History: None Reported - Past Family History Father History Unknown: Yes Mother Family Medical History: Cancer Additional Family Medical History / Comment(s): Mother from metastatic cancer pelvic origin General Exam Limitations: no limitations General appearance: alert, in no apparent distress Head exam: Present: atraumatic, normocephalic Eye exam: Present: normal appearance, PERRL, EOMI ENT exam: Present: normal exam Neck exam: Present: normal inspection. Absent: tenderness, meningismus Respiratory exam: Present: normal lung sounds bilaterally. Absent: respiratory distress, wheezes Cardiovascular Exam: Present: regular rate, normal rhythm GI/Abdominal exam: Present: soft. Absent: distended, tenderness Rectal exam: Present: normal inspection. Absent: bloody stool, hemorrhoids Extremities exam: Present: normal inspection, full ROM. Absent: tenderness Neurological exam: Present: alert, oriented X3, CN II-XII intact Psychiatric exam: Present: normal affect, normal mood Skin exam: Present: warm, dry, intact, pallor. Absent: cyanosis, diaphoretic Course Vital Signs 02/10/18 20:51 Temperature 97.9 F Pulse Rate 77 Respiratory 16 Rate Blood Pressure 117/65 O2 Sat by Pulse 100 Oximetry Medical Decision Making - Medical Decision Making 59-year-old male presenting with anemia and concern for GI bleed. Stool is heme -positive, there is no malik melena, no bright red rectal bleeding. Hemoglobin is 6.6 patient is transfused one unit. Recent baseline of 10. Patient will be admitted for GI consultation. He is placed on proton pump inhibitor. - Lab Data Result diagrams: 02/10/18 21:10 02/10/18 21:10 Lab Results 02/10/18 02/10/18 02/10/18 Range/Units 21:00 21:10 21:10 WBC 9.4 (3.8-10.6) k/uL RBC 2.15 L (4.30-5.90) m/uL Hgb 6.6 L* (13.0-17.5) gm/dL Hct 20.2 L (39.0-53.0) % MCV 94.0 (80.0-100.0) fL MCH 30.5 (25.0-35.0) pg MCHC 32.5 (31.0-37.0) g/dL RDW 17.5 H (11.5-15.5) % Plt Count 400 (150-450) k/uL Neutrophils % 75 % Lymphocytes % 17 % Monocytes % 5 % Eosinophils % 1 % Basophils % 0 % Neutrophils # 7.1 (1.3-7.7) k/uL Lymphocytes # 1.6 (1.0-4.8) k/uL Monocytes # 0.5 (0-1.0) k/uL Eosinophils # 0.1 (0-0.7) k/uL Basophils # 0.0 (0-0.2) k/uL Hypochromasia Slight Anisocytosis Slight Macrocytosis Slight PT (9.0-12.0) sec INR (<1.2) APTT (22.0-30.0) sec Sodium (137-145) mmol/L Potassium (3.5-5.1) mmol/L Chloride (98-107) mmol/L Carbon Dioxide (22-30) mmol/L Anion Gap mmol/L BUN (9-20) mg/dL Creatinine (0.66-1.25) mg/dL Est GFR (CKD-EPI)AfAm (>60 ml/min/1.73 sqM) Est GFR (CKD-EPI)NonAf (>60 ml/min/1.73 sqM) Glucose (74-99) mg/dL Calcium (8.4-10.2) mg/dL Total Bilirubin (0.2-1.3) mg/dL AST (17-59) U/L ALT (21-72) U/L Alkaline Phosphatase (38-126) U/L Total Creatine Kinase 39 L (55-170) U/L CK-MB (CK-2) 1.0 (0.0-2.4) ng/mL CK-MB (CK-2) Rel Index 2.6 Troponin I <0.012 (0.000-0.034) ng/mL Total Protein (6.3-8.2) g/dL Albumin (3.5-5.0) g/dL Stool Occult Blood Positive (Negative) 02/10/18 02/10/18 Range/Units 21:10 21:10 WBC (3.8-10.6) k/uL RBC (4.30-5.90) m/uL Hgb (13.0-17.5) gm/dL Hct (39.0-53.0) % MCV (80.0-100.0) fL MCH (25.0-35.0) pg MCHC (31.0-37.0) g/dL RDW (11.5-15.5) % Plt Count (150-450) k/uL Neutrophils % % Lymphocytes % % Monocytes % % Eosinophils % % Basophils % % Neutrophils # (1.3-7.7) k/uL Lymphocytes # (1.0-4.8) k/uL Monocytes # (0-1.0) k/uL Eosinophils # (0-0.7) k/uL Basophils # (0-0.2) k/uL Hypochromasia Anisocytosis Macrocytosis PT 9.3 (9.0-12.0) sec INR 0.9 (<1.2) APTT 21.3 L (22.0-30.0) sec Sodium 137 (137-145) mmol/L Potassium 4.9 (3.5-5.1) mmol/L Chloride 101 (98-107) mmol/L Carbon Dioxide 29 (22-30) mmol/L Anion Gap 7 mmol/L BUN 30 H (9-20) mg/dL Creatinine 1.80 H (0.66-1.25) mg/dL Est GFR (CKD-EPI)AfAm 44 (>60 ml/min/1.73 sqM) Est GFR (CKD-EPI)NonAf 38 (>60 ml/min/1.73 sqM) Glucose 218 H (74-99) mg/dL Calcium 9.5 (8.4-10.2) mg/dL Total Bilirubin <0.1 L (0.2-1.3) mg/dL AST 14 L (17-59) U/L ALT 22 (21-72) U/L Alkaline Phosphatase 77 (38-126) U/L Total Creatine Kinase (55-170) U/L CK-MB (CK-2) (0.0-2.4) ng/mL CK-MB (CK-2) Rel Index Troponin I (0.000-0.034) ng/mL Total Protein 5.5 L (6.3-8.2) g/dL Albumin 3.1 L (3.5-5.0) g/dL Stool Occult Blood (Negative) Disposition Clinical Impression: MICHELLE (acute kidney injury), GI bleed Disposition: ADMITTED IP TO THIS [facility] Condition: Stable Is patient prescribed a controlled substance at d/c from ED?: No Referrals: [facility],Clinic [Primary Care Provider] - 1-2 days Decision to Admit Reason: Admit from EC Decision Date: 02/10/18 Decision Time: 23:03
[2018-02-10 22:02] LABS: Troponin I <0.012 ng/mL (0.000-0.034)
[2018-02-10] MEDS ORDERED: ONDANSETRON 4 MG/2 ML VIAL IVP PRN (22:55)
[2018-02-10] MEDS ORDERED: NALOXONE 0.4 MG/ML 1 ML VIAL IV PRN (22:55)
[2018-02-11] MEDS ORDERED: TEMAZEPAM 15 MG CAP PO PRN (00:49)
[2018-02-11] MEDS ORDERED: ALPRAZolam 0.25 MG TAB PO PRN (00:49)
[2018-02-11] MEDS ORDERED: ACETAMINOPHEN TAB 500 MG TAB PO PRN (00:49)
[2018-02-11] MEDS ORDERED: HYDROcodone/APAP 5-325MG 1 EACH TAB PO PRN (00:49)
[2018-02-11] MEDS: SODIUM CHLORIDE 0.9% 1,000 ML IV SCH ×2 (01:20→22:18)
--- NOTE | 2018-02-11 01:39 | XR ---
EXAMINATION TYPE: XR chest 1V portable DATE OF EXAM: 02/11/2018 COMPARISON: 11/15/2017 HISTORY: Weakness TECHNIQUE: Single frontal view of the chest is obtained. FINDINGS: There is no heart failure nor confluent pneumonic infiltrate. There is some coarsening of the interstitial markings in the lower lobes. Heart is slightly enlarged. Thoracic aorta is atheromat ous. There is no pleural effusion. IMPRESSION: Mild coarsening of the lung markings. No overt heart failure. No significant change comp ared to old exam.
[2018-02-11] MEDS ORDERED: FUROSEMIDE 10 MG/ML 2 ML VIAL IV STA ×3 (03:25→06:58)
[2018-02-11 04:42] LABS: Appearance,Urine Clear (Clear); Bilirubin,Urine Negative (Negative); Blood,Urine Small (Negative); Color,Urine Yellow; Glucose,Urine (UA) Negative (Negative); Ketones,Urine Negative (Negative); Leukocyte Esterase,Urine Negative (Negative); Mucus,Urine Rare /hpf; Nitrite,Urine Negative (Negative); PH, Urine 5.5 (5.0-8.0); Protein,Urine 3+ (Negative); RBC,Urine 2 /hpf (0-5); Specific Gravity,Urine 1.011 (1.001-1.035); Urobilinogen,Urine <2.0 mg/dL (<2.0); WBC,Urine <1 /hpf (0-5)
--- NOTE | 2018-02-11 06:00 | HP ---
HISTORY AND PHYSICAL DATE OF SERVICE: 02/10/2018 CHIEF COMPLAINT: GI bleed, dizziness. HISTORY OF PRESENT ILLNESS: This is a 67-year-old gentleman with a past medical history of multiple medical problems including CAD, chest pain, diabetes mellitus, hypertension, hyperlipidemia [facility] was recently admitted to [facility] with features of symptomatic anemia. Patient complaining of severe weakness and hemoglobin was found to be 6.2 in the outpatient and repeat hemoglobin was 6.6. The patient was admitted for further evaluation and treatment. The patient apparently had a previous anemia and also previous workup. not available at this time. Creatinine is 1.8 at this time. The patient did not see any obvious active bleeding at this point. There is no history of any fever , rigors. No history of headache, loss of consciousness, seizures at this time. PAST MEDICAL HISTORY: CAD, history of diabetes mellitus type 2, hypertension, hyperlipidemia, insomnia , history of insomnia, history of cardiac catheterization. MEDICATIONS: The home medications are: 1. Senna 2 tablets t.i.d. p.r.n. 2. Iron 325 mg b.i.d. 3. Vitamin B12, 500 mcg daily. 4. Ultram 50 mg p.o. t.i.d. 5. Glucophage 1000 mg p.o. b.i.d. 6. Zantac 150 mg b.i.d. 7. Imdur 60 mg daily. 8. Lantus 10 units subcutaneous at bedtime. 9. Neurontin 60 mg p.o. t.i.d. 10.Vitamin D2, 50,000 q.14 days. 11.Zocor 40 mg at bedtime. 12.Lopressor 12.5 mg p.o. b.i.d. 13.Plavix 75 mg p.o. daily. 14.Ecotrin 81 mg daily. ALLERGIES: Allergies are none. FAMILY HISTORY: History of metastatic cancer of pelvis origin. SOCIAL HISTORY: History of smoking. No history of alcohol intake. REVIEW OF SYSTEMS: ENT: No diminished vision or diminished vision. CARDIOVASCULAR SYSTEM: No angina. RESPIRATORY SYSTEM: As mentioned earlier. GI: As mentioned earlier. : No dysuria. NERVOUS SYSTEM: No numbness or weakness. ALLERGY/IMMUNOLOGY: No asthma or hayfever. MUSCULOSKELETAL: As mentioned earlier. HEMATOLOGY/ONCOLOGY: As mentioned earlier. ENDOCRINE: Diabetes mellitus. CONSTITUTIONAL: As mentioned earlier. DERMATOLOGY: Negative. RHEUMATOLOGY: Negative. PSYCHIATRY: As mentioned earlier. PHYSICAL EXAMINATION: The patient is alert and oriented x3. Pulse is 74, blood pressure 144/67, respiration 18, temperature 98.3, pulse ox 98% on 2 L. HEENT: Conjunctivae pale. Oral mucosa moist. Neck is no jugular venous distention. No carotid bruit. No lymph node enlargement. CARDIOVASCULAR: S1, S2 muffled. No S3 or S4. RESPIRATORY: Breath sounds diminished at the bases. A few scattered rhonchi. No crackles. ABDOMEN: Soft, nontender. No mass palpable. LEGS: Bilateral leg edema, minimal. NERVOUS SYSTEM: Higher function as mentioned. Moves all 4 limbs. No focal motor or sensory deficits. LYMPHATICS: No lymphadenopathy of the neck, axillae or groin. SKIN: No ulcer, rash or bleeding. LABS: WBC 9.4, hemoglobin 6.6. Creatinine is 1.8. ASSESSMENT: 1. Symptomatic anemia acute on chronic, rule out acute gastrointestinal bleed. 2. Increased creatinine with possibly chronic kidney disease stage III. 3. Diabetes mellitus type 2. 4. Hypertension. 5. Hyperlipidemia. 6. Coronary artery disease. 7. History of insomnia. 8. History of back pain, degenerative joint disease. 9. History of partial small bowel obstruction. 10.History of cholecystectomy. 11.History of THC. RECOMMENDATIONS AND DISCUSSION: In this 67-year-old gentleman who presented with multiple complex medical issues at this time I will recommend to continue the current management, continue symptomatic treatment. Otherwise I would recommend gastroenterology evaluation and possible endoscopies. As mentioned earlier, the patient's EGD and colonoscopy last showed antral gastritis and polypectomy. We will continue to monitor. Will arrange transfusions. Guarded prognosis because of multiple complex medical issues and further recommendations to follow. A copy of dictation forwarded to Dr. Myles who is the primary physician. See orders for details. Will order at least 2 units transfusion with Lasix 20 in between. MMODL / IJN: [id number] / MTDD
[2018-02-11] MEDS ORDERED: FUROSEMIDE 10 MG/ML 4 ML VIAL IV STA (06:58)
[2018-02-11 08:47] VITALS: RESP 16
[2018-02-11] MEDS: metFORMIN 500 MG TAB PO SCH ×2 (08:47→16:23)
[2018-02-11] MEDS: CYANOCOBALAMIN 500 MCG TAB PO SCH (08:47)
[2018-02-11] MEDS: FERROUS SULFATE 325 MG TAB PO SCH ×2 (08:48→20:04)
[2018-02-11] MEDS: METOPROLOL TARTRATE 12.5 MG TAB PO SCH ×2 (08:48→21:35)
[2018-02-11] MEDS: PANTOPRAZOLE 40 MG/10 ML VIAL IVP SCH ×2 (08:48→21:35)
[2018-02-11] MEDS: ISOSORBIDE MONONITRATE ER 60 MG TAB.ER.24H PO SCH (08:48)
[2018-02-11] MEDS: traMADol 50 MG TAB PO SCH ×3 (08:48→21:36)
[2018-02-11] MEDS: GABAPENTIN 300 MG CAP PO SCH ×3 (08:48→21:35)
[2018-02-11 09:41] LABS: Albumin 3.1 g/dL (3.5-5.0); Calcium 9.2 mg/dL (8.4-10.2); INR 0.9 (<1.2); Magnesium 1.8 mg/dL (1.6-2.3); Potassium 4.7 mmol/L (3.5-5.1); Prothrombin Time 9.4 sec (9.0-12.0); Total Bilirubin 0.2 mg/dL (0.2-1.3); Total Protein 5.3 g/dL (6.3-8.2)
[2018-02-11 09:58] LABS: Anisocytosis Slight; Basophils % (A) 0 %; Eosinophils # (A) 0.1 k/uL (0-0.7); Eosinophils % (A) 1 %; HCT 27.7 % (39.0-53.0); HGB 8.9 gm/dL (13.0-17.5); Hypochromasia Slight; Lymphocytes # (A) 1.3 k/uL (1.0-4.8); Lymphocytes % (A) 10 %; MCH 30.2 pg (25.0-35.0); MCHC 32.2 g/dL (31.0-37.0); MCV 93.9 fL (80.0-100.0); Macrocytosis Slight; Mean Platelet Volume 7.4; Monocytes # (A) 0.6 k/uL (0-1.0); Monocytes % (A) 5 %; Neutrophils # (A) 10.1 k/uL (1.3-7.7); Neutrophils % (A) 82 %; Platelet Count 395 k/uL (150-450); RBC 2.95 m/uL (4.30-5.90); RDW 18.2 % (11.5-15.5); WBC 12.3 k/uL (3.8-10.6)
--- NOTE | 2018-02-11 11:01 | P.CONS ---
History of Present Illness - Reason for Consult Consult date: 02/11/18 Anemia Requesting physician: Aida Ndiaye - History of Present Illness 67-year-old gentleman with a history of CAD, carotid disease, maintained on aspirin Plavix, diabetes, anemia, chronic kidney disease, admitted with reports of abnormal outpatient CBC; hemoglobin 6.2 Patient denies overt bleeding such as hematemesis hematochezia melena. He was evaluated for anemia and rectal bleeding abdominal pain in July 2017 EGD colonoscopy findings reported mild antral gastritis but no evidence of peptic ulcer disease. Transverse polypectomy biopsies indicated adenoma rectal biopsy hyperplastic polyp. Upon review of medical records average hemoglobin trends between 9-10. He received 2 units of blood for hemoglobin of 6.6 presently 8.9. MCV 94. Platelet 400. BUN 30. Creatinine 1.8. INR 0.9. Hemoccult stool positive. No NSAIDs or alcohol. Denies abdominal pain. No weight loss. Iron indices in October ferritin 27. Iron 39. Iron percentage 11.2 % Review of Systems Constitutional: Denies fever, chills, sweats, weight gain, or loss. HEENT: Negative for migraines, blurred vision or loss, earaches, drainage, tinnitus, oral mucosal lesions, dysphagia, or odynophagia. Cardiac: History of CAD carotid disease. Negative for chest pain, arrhythmias, or palpitation. Respiratory: Negative for shortness of breath, hemoptysis, cough, or sputum production. Gastrointestinal: See HPI for pertinent findings. Genitourinary: Negative for hematuria, urgency, frequency, polyuria, dysuria, or penile discharge. Musculoskeletal: Negative for muscle aches, swelling, arthritis, and arthralgias. Neurologic: Negative for stroke or TIA. Endocrine: History of diabetes.. Skin: Negative for rash or itching. Psychiatric: Negative history for depression and anxiety Past Medical History Past Medical History: Coronary Artery Disease (CAD), Chest Pain / Angina, Diabetes Mellitus, GERD/Reflux, GI Bleed, Hyperlipidemia, Hypertension, Vascular Disorder Additional Past Medical History / Comment(s): Insomnia, abdominal distention that comes and goes, epistaxis, lower GI bleed, benign colon polyp, IDDM type II , low back pain with bilateral sciatica/neuropathy, DJD, past partial SBO treated conservatively, carotid disease, possible chronic kidney disease History of Any Multi-Drug Resistant Organisms: None Reported Past Surgical History: Cholecystectomy, Heart Catheterization Additional Past Surgical History / Comment(s): [facility] [place] [facility] Anesthesia/Blood Transfusion Reactions: No Reported Reaction Past Psychological History: No Psychological Hx Reported Additional Psychological History / Comment(s): Pt resides with his spouse and their 2 dogs. Pt uses a cane to ambulate. He has a mobility scooter which he uses prn. He does not drive, his spouse drives. Smoking Status: Current every day smoker Past Alcohol Use History: None Reported Additional Past Alcohol Use History / Comment(s): Pt started smoking in 1966 and is a 1-2 ppd smoker. Past Drug Use History: None Reported Additional Drug Use History / Comment(s): Pt states he takes a couple puffs from a marijuana joint occasionally - Past Family History Father History Unknown: Yes Mother Family Medical History: Cancer Additional Family Medical History / Comment(s): Mother from metastatic cancer pelvic origin Medications and Allergies Home Medications Medication Instructions Recorded Confirmed Type Cyanocobalamin [Vitamin B-12] 500 mcg PO DAILY 07/18/17 02/10/18 History Ergocalciferol (Vitamin D2) 50,000 unit PO Q14D 07/18/17 02/10/18 History [Vitamin D2] Gabapentin [Neurontin] 600 mg PO TID 07/18/17 02/10/18 History Isosorbide Mononitrate ER [Imdur] 60 mg PO DAILY 07/18/17 02/10/18 History Metoprolol Tartrate [Lopressor] 12.5 mg PO BID 07/18/17 02/10/18 History Ranitidine HCl [Zantac] 150 mg PO BID 07/18/17 02/10/18 History Simvastatin [Zocor] 40 mg PO HS 07/18/17 02/10/18 History metFORMIN HCL [Glucophage] 1,000 mg PO BID 07/18/17 02/10/18 History traMADol HCL [Ultram] 50 mg PO TID 07/18/17 02/10/18 History Aspirin EC [Ecotrin Low Dose] 81 mg PO DAILY 02/10/18 02/10/18 History Clopidogrel [Plavix] 75 mg PO DAILY 02/10/18 02/10/18 History Ferrous Sulfate [Iron (65 MG 325 mg PO BID 02/10/18 02/10/18 History Elemental)] Insulin Glargine [Lantus] 10 unit SQ HS 02/10/18 02/10/18 History Sennosides-Docusate Sodium 2 tab PO TID PRN 02/10/18 02/10/18 History [Senokot-S] Allergies Allergy/AdvReac Type Severity Reaction Status Date / Time No Known Allergies Allergy Verified 02/10/18 21:45 Physical Exam Vitals: Vital Signs Temp Pulse Pulse Resp BP Pulse Ox 02/11/18 08:05 97.6 F 74 16 98 02/11/18 07:42 67 18 168/70 100 02/11/18 06:58 97.8 F 68 18 165/72 100 02/11/18 06:15 83 18 161/70 83 L 02/11/18 05:03 97.8 F 70 18 165/73 97 02/11/18 04:33 97.5 F L 60 18 163/72 100 02/11/18 04:23 97.6 F 73 18 176/72 99 02/11/18 03:25 97.6 F 68 18 148/66 98 02/11/18 02:05 97.8 F 64 18 159/72 100 02/11/18 01:35 97.8 F 73 18 138/63 99 02/11/18 01:25 97.6 F 82 18 129/60 99 02/11/18 01:22 97.6 F 82 18 129/60 99 02/11/18 00:34 98.3 F 74 18 144/67 98 02/10/18 23:51 67 15 129/63 100 02/10/18 20:51 97.9 F 77 16 117/65 100 Intake and Output 02/10/18 02/11/18 02/11/18 22:59 06:59 14:59 Intake Total 620 Balance 620 Intake: Blood Product 620 Rc As-1 Unit 310 [id number] Rc As-1 Unit 310 [id number] Other: Weight 81.647 kg General appearance: The patient is alert, oriented, in no acute distress. HET: Head is normocephalic and atraumatic. Pupils are equal and reactive. Oropharynx is clear without lesions. Neck: Supple without lymphadenopathy. Trachea midline. Heart: S1 S2. Regular rate and rhythm. Lungs: No crackles or wheezes are heard. Abdomen: Soft, nontender, nondistended with bowel sounds. No peritoneal signs. No palpable organomegaly or masses. Extremities: Normal skin color and turgor. No cyanosis, rash, ulceration, clubbing, or edema. Radial and pedal pulses are 2/4 bilaterally. Neurological: No focal deficits. Strength and sensation are grossly intact. Results CBC & Chem 7: 02/11/18 08:47 02/11/18 08:47 Labs: Abnormal Lab Results - Last 24 Hours (Table) 02/10/18 02/10/18 02/10/18 Range/Units 21:10 21:10 21:10 WBC (3.8-10.6) k/uL RBC 2.15 L (4.30-5.90) m/uL Hgb 6.6 L* (13.0-17.5) gm/dL Hct 20.2 L (39.0-53.0) % RDW 17.5 H (11.5-15.5) % Neutrophils # (1.3-7.7) k/uL APTT (22.0-30.0) sec BUN 30 H (9-20) mg/dL Creatinine 1.80 H (0.66-1.25) mg/dL Glucose 218 H (74-99) mg/dL Total Bilirubin <0.1 L (0.2-1.3) mg/dL AST 14 L (17-59) U/L Total Creatine Kinase 39 L (55-170) U/L Total Protein 5.5 L (6.3-8.2) g/dL Albumin 3.1 L (3.5-5.0) g/dL Urine Protein (Negative) Urine Blood (Negative) Urine Mucus (None) /hpf Crossmatch 02/10/18 02/10/18 02/11/18 Range/Units 21:10 22:50 04:17 WBC (3.8-10.6) k/uL RBC (4.30-5.90) m/uL Hgb (13.0-17.5) gm/dL Hct (39.0-53.0) % RDW (11.5-15.5) % Neutrophils # (1.3-7.7) k/uL APTT 21.3 L (22.0-30.0) sec BUN (9-20) mg/dL Creatinine (0.66-1.25) mg/dL Glucose (74-99) mg/dL Total Bilirubin (0.2-1.3) mg/dL AST (17-59) U/L Total Creatine Kinase (55-170) U/L Total Protein (6.3-8.2) g/dL Albumin (3.5-5.0) g/dL Urine Protein 3+ H (Negative) Urine Blood Small H (Negative) Urine Mucus Rare H (None) /hpf Crossmatch See Detail 02/11/18 02/11/18 Range/Units 08:47 08:47 WBC 12.3 H (3.8-10.6) k/uL RBC 2.95 L (4.30-5.90) m/uL Hgb 8.9 L D (13.0-17.5) gm/dL Hct 27.7 L (39.0-53.0) % RDW 18.2 H (11.5-15.5) % Neutrophils # 10.1 H (1.3-7.7) k/uL APTT (22.0-30.0) sec BUN 26 H (9-20) mg/dL Creatinine 1.65 H (0.66-1.25) mg/dL Glucose 191 H (74-99) mg/dL Total Bilirubin (0.2-1.3) mg/dL AST 13 L (17-59) U/L Total Creatine Kinase (55-170) U/L Total Protein 5.3 L (6.3-8.2) g/dL Albumin 3.1 L (3.5-5.0) g/dL Urine Protein (Negative) Urine Blood (Negative) Urine Mucus (None) /hpf Crossmatch Assessment and Plan (1) Iron deficiency anemia Narrative/Plan: 67-year-old gentleman with a history of iron deficiency anemia status post unremarkable EGD colonoscopy July 2017 admitted with hemoglobin of 6.6 positive Hemoccult stool without overt bleeding such as hematemesis hematochezia melena. Possible small bowel pathology bleed contributing to his anemia. Current Visit: No Status: Acute Code(s): D50.9 - IRON DEFICIENCY ANEMIA, UNSPECIFIED SNOMED Code(s): 24098735 (2) Stool guaiac positive Current Visit: Yes Status: Acute Code(s): R19.5 - OTHER FECAL ABNORMALITIES SNOMED Code(s): 55553198 (3) GI bleed Current Visit: Yes Status: Acute Code(s): K92.2 - GASTROINTESTINAL HEMORRHAGE, UNSPECIFIED SNOMED Code(s): 99994443 (4) Acute blood loss anemia Current Visit: Yes Status: Acute Code(s): D62 - ACUTE POSTHEMORRHAGIC ANEMIA SNOMED Code(s): 968799292 Plan: 1. CBC monitoring. Protonix 40 mg daily. Hold iron for small bowel capsule endoscopy tomorrow morning. We'll continue to follow closely with you. The spinner iron has discussed the risks, benefits and alternative therapies for the above-mentioned procedure and for both sedation/analgesia as well as necessary blood product administration, if indicated, as they pertain to this patient. The patient has indicated understanding and acceptance of the risks and procedures discussed. Thank you for this kind referral and the opportunity to participate in the care of your patient. This consultation was discussed with Dr. Garcia. The impression and plan of care have been directed as dictated.
--- NOTE | 2018-02-11 11:06 | P.CRDCN ---
History of Present Illness History of present illness: Mr. Egan is a pleasant 67-year-old male past medical history significant for carotid artery stenosis s/p stenting at the [facility], diabetes mellitus, hypertension, dysplipidemia, GERD and chronic nicotine dependence. 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 He denies ever having had a catheterization performed and denies having stents in his heart or bypass surgery. We have been asked to see him on this admission for evaluation. He states he has been feeling increasingly weak lately and had hgb drawn per his PCP, came to be low at 6.2 and was sent to hospital for blood transfusion. Hgb on arrival was 6.6 and he has undergone transfusion of 2 units of PRBC. Repeat hgb this morning is pending. At the time of my exam he is seen sitting up at the edge of the bed in no acute distress. He denies symptoms of chest pain, palpitations, dizziness, nausea, vomiting or diaphoresis. He states he has felt short of breath recently at rest and with exertion. He was seen here in October 2017 with similar symptoms and also underwent transfusion at that time and was seen in evaluation by GI services. No endoscopy/colonoscopy performed. He did have one in July that showed mild antral gastritis with no evidence of esophagitis or peptic ulcer disease as well as transverse colon polyp and proximal rectal polyp which were removed at that time. Pathology reports from that showed adenoma of transverse colon; adenoma and hyperplastic polyp of rectum; negative for helocobacter; chronic gastritis of stomach; and benign small bowel mucosa with normal villous architecture of duodenum. Echocardiogram performed last admission reveals preserved left ventricular systolic function with ejection fraction 55-60%, moderately dilated left atrium , mild aortic stenosis with a mean gradient of 9.29 mmHg, mild TR and dilated aortic root at 4 cm. EKG reveals sinus mechanism with no acute ST or T-wave abnormalities. Chest x-ray mild coarsening of the lung markings with no overt heart failure noted. Laboratory data reviewed, hemoglobin 6.6, platelets 400, sodium 137, potassium 4.9, creatinine 1.8, cardiac enzymes negative 1. Current home medications include aspirin 81 mg daily, Plavix 75 mg daily, Lopressor 12.5 mg twice a day, simvastatin 40 mg daily, Imdur 60 mg daily. He also takes Senokot, iron supplementation, Ultram, Glucophage, Zantac, Lantus, Neurontin and vitamin D supplementation. Review of Systems At the time of my exam: CONSTITUTIONAL: Denies fever. Denies chills. EYES: Denies blurred vision. Denies vision changes. Denies eye pain. EARS, NOSE, MOUTH & THROAT: Denies headache. Denies sore throat. Denies ear pain. CARDIOVASCULAR: Denies chest pain. Complains of shortness of breath. Denies orthopnea. Denies PND. Denies palpitations. RESPIRATORY: Denies cough. GASTROINTESTINAL: Denies abdominal pain. Denies diarrhea. Denies constipation. Denies nausea. Denies vomiting. MUSCULOSKELETAL: Denies myalgias. INTEGUMENTARY: Denies pruitis. Denies rash. NEUROLOGIC: Denies numbness. Denies tingling. Complains of weakness and fatigue. PSYCHIATRIC: Denies anxiety. Denies depression. ENDOCRINE: Denies fatigue. Denies weight change. Denies polydipsia. Denies polyurina. GENITOURINARY: Denies burning, hematuria or urgency with micturation. HEMATOLOGIC: Denies history of anemia. Denies bleeding. Past Medical History Past Medical History: Coronary Artery Disease (CAD), Chest Pain / Angina, Diabetes Mellitus, GERD/Reflux, GI Bleed, Hyperlipidemia, Hypertension, Vascular Disorder Additional Past Medical History / Comment(s): Insomnia, abdominal distention that comes and goes, epistaxis, lower GI bleed, benign colon polyp, IDDM type II , low back pain with bilateral sciatica/neuropathy, DJD, past partial SBO treated conservatively, carotid disease, possible chronic kidney disease History of Any Multi-Drug Resistant Organisms: None Reported Past Surgical History: Cholecystectomy, Heart Catheterization Additional Past Surgical History / Comment(s): [facility] [place] [facility] Past Anesthesia/Blood Transfusion Reactions: No Reported Reaction Past Psychological History: No Psychological Hx Reported Additional Psychological History / Comment(s): Pt resides with his spouse and their 2 dogs. Pt uses a cane to ambulate. He has a mobility scooter which he uses prn. He does not drive, his spouse drives. Smoking Status: Current every day smoker Past Alcohol Use History: None Reported Additional Past Alcohol Use History / Comment(s): Pt started smoking in 1966 and is a 1-2 ppd smoker. Past Drug Use History: None Reported Additional Drug Use History / Comment(s): Pt states he takes a couple puffs from a marijuana joint occasionally - Past Family History Father History Unknown: Yes Mother Family Medical History: Cancer Additional Family Medical History / Comment(s): Mother from metastatic cancer pelvic origin Medications and Allergies Home Medications Medication Instructions Recorded Confirmed Type Cyanocobalamin [Vitamin B-12] 500 mcg PO DAILY 07/18/17 02/10/18 History Ergocalciferol (Vitamin D2) 50,000 unit PO Q14D 07/18/17 02/10/18 History [Vitamin D2] Gabapentin [Neurontin] 600 mg PO TID 07/18/17 02/10/18 History Isosorbide Mononitrate ER [Imdur] 60 mg PO DAILY 07/18/17 02/10/18 History Metoprolol Tartrate [Lopressor] 12.5 mg PO BID 07/18/17 02/10/18 History Ranitidine HCl [Zantac] 150 mg PO BID 07/18/17 02/10/18 History Simvastatin [Zocor] 40 mg PO HS 07/18/17 02/10/18 History metFORMIN HCL [Glucophage] 1,000 mg PO BID 07/18/17 02/10/18 History traMADol HCL [Ultram] 50 mg PO TID 07/18/17 02/10/18 History Aspirin EC [Ecotrin Low Dose] 81 mg PO DAILY 02/10/18 02/10/18 History Clopidogrel [Plavix] 75 mg PO DAILY 02/10/18 02/10/18 History Ferrous Sulfate [Iron (65 MG 325 mg PO BID 02/10/18 02/10/18 History Elemental)] Insulin Glargine [Lantus] 10 unit SQ HS 02/10/18 02/10/18 History Sennosides-Docusate Sodium 2 tab PO TID PRN 02/10/18 02/10/18 History [Senokot-S] Allergies Allergy/AdvReac Type Severity Reaction Status Date / Time No Known Allergies Allergy Verified 02/10/18 21:45 Physical Exam Vitals: Vital Signs Temp Pulse Pulse Resp BP Pulse Ox 02/11/18 08:05 97.6 F 74 16 98 02/11/18 07:42 67 18 168/70 100 02/11/18 06:58 97.8 F 68 18 165/72 100 02/11/18 06:15 83 18 161/70 83 L 02/11/18 05:03 97.8 F 70 18 165/73 97 02/11/18 04:33 97.5 F L 60 18 163/72 100 02/11/18 04:23 97.6 F 73 18 176/72 99 02/11/18 03:25 97.6 F 68 18 148/66 98 02/11/18 02:05 97.8 F 64 18 159/72 100 02/11/18 01:35 97.8 F 73 18 138/63 99 02/11/18 01:25 97.6 F 82 18 129/60 99 02/11/18 01:22 97.6 F 82 18 129/60 99 02/11/18 00:34 98.3 F 74 18 144/67 98 02/10/18 23:51 67 15 129/63 100 02/10/18 20:51 97.9 F 77 16 117/65 100 Intake and Output 02/10/18 02/11/18 02/11/18 22:59 06:59 14:59 Intake Total 620 Balance 620 Intake: Blood Product 620 Rc As-1 Unit 310 [id number] Rc As-1 Unit 310 [id number] Other: Weight 81.647 kg Blood pressure 168/70 heart rate 67 afebrile maintaining oxygen saturation on room air GENERAL: This is a 67-year-old male in no apparent distress at the time of my examination. Pallor. HEENT: Head is atraumatic, normocephalic. Pupils are equal, round. Sclerae anicteric. Conjunctivae are clear. Mucous membranes of the mouth are moist. Neck is supple. There is no jugular venous distention. Right carotid bruit is heard, no bruit on the left. LUNGS: Clear to auscultation no wheezes, rales or rhonchi. No chest wall tenderness is noted on palpation or with deep breathing. Diminished bilaterally. HEART: Regular rate and rhythm with systolic ejection murmur at the base, rubs or gallops. S1 and S2 heard. ABDOMEN: Soft, nontender. Bowel sounds are heard. No organomegaly noted. EXTREMITIES: Left lower extremity 1+ pitting edema, right lower extremity trace. No calf tenderness noted. VASCULAR: Radial and dorsalis pedis pulses palpated, no evidence of clubbing. NEUROLOGIC: Patient is awake, alert and oriented x3. Results 02/11/18 08:47 02/11/18 08:47 Cardiac Enzymes 02/10/18 02/10/18 Range/Units 21:10 21:10 AST 14 L (17-59) U/L CK-MB (CK-2) 1.0 (0.0-2.4) ng/mL Troponin I <0.012 (0.000-0.034) ng/mL Coagulation 02/10/18 Range/Units 21:10 PT 9.3 (9.0-12.0) sec APTT 21.3 L (22.0-30.0) sec CBC 02/10/18 Range/Units 21:10 WBC 9.4 (3.8-10.6) k/uL RBC 2.15 L (4.30-5.90) m/uL Hgb 6.6 L* (13.0-17.5) gm/dL Hct 20.2 L (39.0-53.0) % Plt Count 400 (150-450) k/uL Comprehensive Metabolic Panel 02/10/18 Range/Units 21:10 Sodium 137 (137-145) mmol/L Potassium 4.9 (3.5-5.1) mmol/L Chloride 101 (98-107) mmol/L Carbon Dioxide 29 (22-30) mmol/L BUN 30 H (9-20) mg/dL Creatinine 1.80 H (0.66-1.25) mg/dL Glucose 218 H (74-99) mg/dL Calcium 9.5 (8.4-10.2) mg/dL AST 14 L (17-59) U/L ALT 22 (21-72) U/L Alkaline Phosphatase 77 (38-126) U/L Total Protein 5.5 L (6.3-8.2) g/dL Albumin 3.1 L (3.5-5.0) g/dL Current Medications Generic Name Dose Route Start Last Admin Trade Name Freq PRN Reason Stop Dose Admin Acetaminophen 500 mg 02/11/18 00:49 Tylenol Tab PO Q6HR PRN Fever and/ or MILD Pain Hydrocodone Bitart/Acetaminophen 1 each 02/11/18 00:49 [place] 5-325 PO Q6HR PRN MODERATE Pain Alprazolam 0.25 mg 02/11/18 00:49 Xanax PO TID PRN Anxiety Atorvastatin Calcium 20 mg 02/11/18 21:00 Lipitor PO HS [facility] Cyanocobalamin 500 mcg 02/11/18 09:00 02/11/18 08:47 Vitamin B-12 PO 500 mcg DAILY [facility] Administration Ergocalciferol 50,000 unit 02/13/18 09:00 Vitamin D2 PO Q14D [facility] Ferrous Sulfate 325 mg 02/11/18 09:00 02/11/18 08:48 Feosol PO 325 mg BID [facility] Administration Gabapentin 600 mg 02/11/18 09:00 02/11/18 08:48 Neurontin PO 600 mg TID [facility] Administration Sodium Chloride 1,000 mls @ 50 mls/hr 02/11/18 01:30 02/11/18 01:20 Saline 0.9% IV 50 mls/hr .Q20H [facility] Administration Insulin Detemir 10 unit 02/11/18 21:00 Levemir SQ HS [facility] Isosorbide Mononitrate 60 mg 02/11/18 09:00 02/11/18 08:48 Imdur PO 60 mg DAILY [facility] Administration Metformin HCl 1,000 mg 02/11/18 07:30 02/11/18 08:47 Glucophage PO 1,000 mg AC-BID [facility] Administration Metoprolol Tartrate 12.5 mg 02/11/18 09:00 02/11/18 08:48 Lopressor PO 12.5 mg BID [facility] Administration Naloxone HCl 0.2 mg 02/10/18 22:55 Narcan IV Q2M PRN Opioid Reversal Ondansetron HCl 4 mg 02/10/18 22:55 Zofran IVP Q8HR PRN Nausea And Vomiting Pantoprazole Sodium 40 mg 02/11/18 09:00 02/11/18 08:48 Protonix IVP 40 mg BID [facility] Administration Temazepam 15 mg 02/11/18 00:49 Restoril PO HS PRN Insomnia Tramadol HCl 50 mg 02/11/18 09:00 02/11/18 08:48 Ultram PO 50 mg TID [facility] Administration Intake and Output 02/10/18 02/11/18 02/11/18 22:59 06:59 14:59 Intake Total 620 Balance 620 Intake: Blood Product 620 As-1 Unit 310 [id number] As-1 Unit 310 [id number] Other: Weight 81.647 kg 02/10/18 21:10 02/10/18 21:10 Assessment and Plan Assessment: ASSESSMENT 1. Acute symptomatic anemia. Denies black/bloody stools, hematuria or any active bleeding. 2. Carotid artery disease s/p stenting, details unknown. He recalls this to be around 2-3 yrs ago at the [facility] 3. Aortic stenosis, mild. Mean gradient on most recent echo 9 mmHg. 4. Hypertension 5. Diabetes mellitus 6. Chronic nicotine dependence 7. Chronic kidney disease, GFR 38, Stage 3 PLAN Check left lower extremity doppler for possibility of DVT. ProBNP pending. Plavix and aspirin can be discontinued indefinely, we will attempt to obtain records regarding his carotid stent and any cardiac testing. Obtain b/l carotid duplex to assess disease and stent. Thank you kindly for this consultation. Nurse Practitioner note has been reviewed, I agree with a documented findings and plan of care. Patient was seen and examined.
--- NOTE | 2018-02-11 12:30 | ECHOF ---
Referral Reason:sob MEASUREMENTS -------- HEIGHT: 170.2 cm WEIGHT: 81.7 kg BP: 168/70 RVIDd: 3.3 cm (< 3.3) IVSd: 1.4 cm (0.6 - 1.1) LVIDd: 4.7 cm (3.9 - 5.3) LVPWd: 1.5 cm (0.6 - 1.1) IVSs: 1.8 cm LVIDs: 3.3 cm LVPWs: 1.7 cm LA Diam: 3.5 cm (2.7 - 3.8) LAESV Index (A-L): 31.08 ml/m Ao Diam: 4.0 cm (2.0 - 3.7) AV Cusp: 2.1 cm (1.5 - 2.6) MV EXCURSION: 15.792 mm (> 18.000) MV EF SLOPE: 61 mm/s (70 - 150) EPSS: 0.6 cm MV E Ray: 0.98 m/s MV DecT: 230 ms MV A Ray: 1.07 m/s MV E/A Ratio: 0.91 AV maxP.87 mmHg AV meanP.09 mmHg RAP: 5.00 mmHg RVSP: 32.37 mmHg FINDINGS -------- Sinus rhythm with extra systolic beats. This was a technically good study. The left ventricular size is normal. There is moderate concentric left ventricular hypertrophy. O verall left ventricular systolic function is normal with, an EF between 55 - 60 %. The right ventricle is mildly enlarged. LA is midly dilated 29-33ml/m2. The right atrium is normal in size. There is mild aortic valve sclerosis. There is kikp-wn-mwdzronh aortic regurgitation. There is mi ld aortic stenosis present. Peak/mean gradient across the Aortic Valve is 19.87mmHg / 8.09mmHg. The mitral valve leaflets are moderately thickened. Moderate mitral annular calcification present. Mild tricuspid regurgitation present. Right ventricular systolic pressure is normal at < 35 mmHg. Trace/mild (physiologic) pulmonic regurgitation. The aortic root is dilated measuring 4.0cm. Normal inferior vena cava with normal inspiratory collapse consistent with estimated right atrial pre ssure of 5 mmHg. There is no pericardial effusion. CONCLUSIONS -------- 1. Sinus rhythm with extra systolic beats. 2. This was a technically good study. 3. The left ventricular size is normal. 4. There is moderate concentric left ventricular hypertrophy. 5. Overall left ventricular systolic function is normal with, an EF between 55 - 60 %. 6. The right ventricle is mildly enlarged. 7. LA is midly dilated 29-33ml/m2. 8. The right atrium is normal in size. 9. There is mild aortic valve sclerosis. 10. There is wfnu-tp-vbzvbiin aortic regurgitation. 11. There is mild aortic stenosis present. 12. Peak/mean gradient across the Aortic Valve is 19.87mmHg / 8.09mmHg. 13. The mitral valve leaflets are moderately thickened. 14. Moderate mitral annular calcification present. 15. Mild tricuspid regurgitation present. 16. Right ventricular systolic pressure is normal at < 35 mmHg. 17. Trace/mild (physiologic) pulmonic regurgitation. 18. The aortic root is dilated measuring 4.0cm. 19. Normal inferior vena cava with normal inspiratory collapse consistent with estimated right atrial pressure of 5 mmHg. 20. There is no pericardial effusion. [employer] ASSEMBLER: Sussy Rahman RDCS
--- NOTE | 2018-02-11 13:50 | US ---
EXAMINATION TYPE: US venous doppler duplex LE LT DATE OF EXAM: 02/11/2018 8:46 AM COMPARISON: NONE CLINICAL HISTORY: swelling. SIDE PERFORMED: Left TECHNIQUE: The lower extremity deep venous system is examined utilizing real time linear array sonog oscar with graded compression, doppler sonography and color-flow sonography. VESSELS IMAGED: External Iliac Vein (EIV) Common Femoral Vein Deep Femoral Vein Greater Saphenous Vein * Femoral Vein Popliteal Vein Proximal Calf Veins (* superficial vessels) Grayscale, color doppler, spectral doppler imaging performed of the deep veins of the lower extremiti es. There is normal flow, compressibility, vascular waveforms. Left Leg: Negative for DVT IMPRESSION: No evident deep venous thrombosis at or above the left knee
--- NOTE | 2018-02-11 14:44 | US ---
EXAMINATION TYPE: US carotid duplex BILAT DATE OF EXAM: 02/11/2018 COMPARISON: US 2014 CLINICAL HISTORY: Carotid bruit on the right, s/p carotid stent. EXAM MEASUREMENTS: RIGHT: Peak Systolic Velocity (PSV) cm/sec ----- Right CCA: 51.2 ----- Right ICA: 106.6 ----- Right ECA: 80.5 ICA/CCA ratio: 2.1 RIGHT: End Diastole cm/sec ----- Right CCA: 7.3 ----- Right ICA: 31.1 ----- Right ECA: 0.0 LEFT: Peak Systolic Velocity (PSV) cm/sec ----- Left CCA: 70.2 ----- Left ICA: 100.9 ----- Left ECA: 305.2 ICA/CCA ratio: 1.4 LEFT: End Diastole cm/sec ----- Left CCA: 11.7 ----- Left ICA: 23.9 ----- Left ECA: 0.0 VERTEBRALS (direction of flow): Right Vertebral: Antegrade Left Vertebral: Antegrade Rhythm: Normal Stent seen within right bulb/ICA, bilateral intimal thickening, bilateral plaque seen greater on left , elevated velocity: left proximal ECA, right ICA/CCA ratio 2.1. Grayscale, color Doppler, spectral Doppler imaging performed of the carotid arteries. IMPRESSION: Proximal internal carotid artery stent on the right may decrease sensitivity. No hemod ynamic significant stenosis of the proximal internal carotid arteries bilaterally by Doppler criteria .
[2018-02-11] MEDS ORDERED: MAGNESIUM CITRATE 296 ML BOTTLE PO ONE (17:00)
--- NOTE | 2018-02-11 17:43 | PN ---
PROGRESS NOTE DATE OF SERVICE: 02/11/2018 This 67-year-old gentleman who was admitted with symptomatic anemia had EGD and colonoscopy last year. Currently the patient is being evaluated with a small bowel enteroscopy by Gastroenterology. Carotid Doppler showed no hemodynamically significant stenosis. Currently the hemoglobin is 8.9 after transfusion. Creatinine is 1.65. On exam, alert and oriented x3. Pulse is 72, blood pressure 145/67, respiration 16, temperature 98.1, pulse ox 98% on room air. HEENT: Conjunctivae pale. Oral mucosa moist. NECK: No jugular venous distention. No carotid bruit. No lymph node enlargement. CARDIOVASCULAR SYSTEM: S1, S2 muffled. RESPIRATORY SYSTEM: Breath sounds diminished at the bases. No rhonchi. No crackles. ABDOMEN: Soft, non-tender. No mass palpable. LEGS: No edema. No swelling. NERVOUS SYSTEM: No focal deficit. LABS: WBC 12.3, hemoglobin 8.9. Creatinine is 1.65. ASSESSMENT: 1. Symptomatic anemia, acute on chronic, possibly gastrointestinal bleed. 2. For capsule enteroscopy. 3. Increased creatinine with possible chronic kidney disease, stage III. 4. Diabetes mellitus, type 2. 5. Hypertension. 6. Hyperlipidemia. 7. History of coronary artery disease. 8. History of insomnia. 9. History of back, degenerative joint disease. 10.History of partial small bowel obstruction. 11.History of cholecystectomy. 12.History of tetrahydrocannabinol. RECOMMENDATIONS AND DISCUSSION: I recommend to continue current medication, continue symptomatic treatment. Otherwise at this time I recommend repeat labs, capsule enteroscopy. Guarded prognosis because of multiple complex medical issues. Follow closely with Gastroenterology. Further recommendations to follow. MMODL / IJN: [id number] /
[2018-02-11] MEDS: ATORVASTATIN 20 MG TAB PO SCH (21:35)
[2018-02-11] MEDS: INSULIN DETEMIR 100 UNIT/ML 10 ML VIAL SQ SCH (21:35)
[2018-02-12] MEDS ORDERED: SIMETHICONE 40 MG/0.6 ML DROPS 2,000 MG/30 ML BOTTLE PO ONE (07:10)
[2018-02-12 09:41] LABS: Calcium 8.7 mg/dL (8.4-10.2); Potassium 4.8 mmol/L (3.5-5.1)
[2018-02-12 10:54] LABS: Anisocytosis Slight; Basophils % (A) 0 %; Eosinophils # (A) 0.1 k/uL (0-0.7); Eosinophils % (A) 1 %; HCT 26.8 % (39.0-53.0); HGB 8.5 gm/dL (13.0-17.5); Hypochromasia Slight; Lymphocytes # (A) 1.2 k/uL (1.0-4.8); Lymphocytes % (A) 14 %; MCH 29.7 pg (25.0-35.0); MCHC 31.7 g/dL (31.0-37.0); MCV 93.7 fL (80.0-100.0); Macrocytosis Slight; Mean Platelet Volume 8.1; Monocytes # (A) 0.4 k/uL (0-1.0); Monocytes % (A) 5 %; Neutrophils # (A) 6.6 k/uL (1.3-7.7); Neutrophils % (A) 79 %; Platelet Count 357 k/uL (150-450); RBC 2.87 m/uL (4.30-5.90); RDW 18.2 % (11.5-15.5); WBC 8.4 k/uL (3.8-10.6)
[2018-02-12] MEDS: FERROUS SULFATE 325 MG TAB PO SCH ×2 (12:16→21:46)
[2018-02-12] MEDS: PANTOPRAZOLE 40 MG/10 ML VIAL IVP SCH ×2 (12:19→21:47)
[2018-02-12] MEDS: GABAPENTIN 300 MG CAP PO SCH ×3 (12:19→21:46)
[2018-02-12] MEDS: METOPROLOL TARTRATE 12.5 MG TAB PO SCH ×2 (12:20→21:46)
[2018-02-12] MEDS: ISOSORBIDE MONONITRATE ER 60 MG TAB.ER.24H PO SCH (12:20)
[2018-02-12] MEDS: traMADol 50 MG TAB PO SCH ×3 (14:26→19:12)
[2018-02-12] MEDS: CYANOCOBALAMIN 500 MCG TAB PO SCH (15:21)
[2018-02-12] MEDS: metFORMIN 500 MG TAB PO SCH ×2 (15:21→17:25)
[2018-02-12] MEDS: SODIUM CHLORIDE 0.9% 1,000 ML IV SCH (16:42)
--- NOTE | 2018-02-12 16:56 | PN ---
PROGRESS NOTE DATE OF SERVICE: 02/12/2018 This 67-year-old gentleman was admitted with symptomatic anemia and possible acute on chronic gastrointestinal bleed. The patient previously had endoscopies. Currently the patient Gastroenterology planning capsule enteroscopy yesterday. Carotid Doppler showed proximal internal carotid artery stent. No hemodynamic stenosis noted. No chest pain. No palpitations. No fever. PHYSICAL EXAM: Alert and oriented times three. Pulse 97, blood pressure 128/69, respiratory rate 16, temperature 98.5, pulse ox 97% on room air. HEENT: Conjunctivae normal. Oral mucosa moist. NECK is no jugular venous distention. No carotid bruit. No lymph node enlargement. CARDIOVASCULAR system: S1, S2 muffled. RESPIRATORY: Breath sounds diminished in the bases. No rhonchi and no crackles. ABDOMEN: Soft, nontender. capsule enteroscopy system in place. LABS: WBC 8.2, hemoglobin is 8.5, creatinine is 1.61. ASSESSMENT: 1. Symptomatic anemia, acute on chronic, possibly gastrointestinal bleed on capsule endoscopy. 2. Increased creatinine with possible chronic kidney disease stage 3. 3. Diabetes type 2. 4. Hypertension. 5. Hyperlipidemia. 6. History of coronary artery disease. 7. History of insomnia. 8. History of back pain and degenerative joint disease. 9. History of partial small bowel obstruction. 10.History of cholecystectomy. 11.History of THC. RECOMMENDATIONS AND DISCUSSION: Recommend to continue current medications, management and symptomatic treatment. At this time, we will monitor the patient closely. I would recommend monitor hemoglobin. Capsule enteroscopy by Gastroenterology. Guarded prognosis. Further recommendations to follow. MMODL / IJN: [id number] /
[2018-02-12 17:09] LABS: Glucose,Whole Blood 173 mg/dL (75-99)
[2018-02-12 21:42] LABS: Glucose,Whole Blood 172 mg/dL (75-99)
[2018-02-12] MEDS: ATORVASTATIN 20 MG TAB PO SCH (21:46)
[2018-02-12] MEDS: INSULIN DETEMIR 100 UNIT/ML 10 ML VIAL SQ SCH (21:47)
[2018-02-13 06:14] VITALS: BP 154/72; PULSE 69; TEMP 97.8
[2018-02-13 07:25] LABS: Glucose,Whole Blood 204 mg/dL (75-99)
[2018-02-13 07:28] LABS: Anisocytosis Slight; Basophils % (A) 0 %; Eosinophils % (A) 1 %; HCT 28.4 % (39.0-53.0); HGB 9.2 gm/dL (13.0-17.5); Hypochromasia Slight; Lymphocytes # (A) 0.9 k/uL (1.0-4.8); Lymphocytes % (A) 12 %; MCH 30.4 pg (25.0-35.0); MCHC 32.3 g/dL (31.0-37.0); MCV 93.9 fL (80.0-100.0); Macrocytosis Slight; Monocytes # (A) 0.4 k/uL (0-1.0); Monocytes % (A) 5 %; Neutrophils # (A) 6.4 k/uL (1.3-7.7); Neutrophils % (A) 82 %; Platelet Count 382 k/uL (150-450); RBC 3.02 m/uL (4.30-5.90); RDW 17.8 % (11.5-15.5); WBC 7.9 k/uL (3.8-10.6)
[2018-02-13 07:57] LABS: Calcium 8.7 mg/dL (8.4-10.2); Potassium 4.9 mmol/L (3.5-5.1)
[2018-02-13] MEDS: CYANOCOBALAMIN 500 MCG TAB PO SCH (08:23)
[2018-02-13] MEDS: GABAPENTIN 300 MG CAP PO SCH (08:23)
[2018-02-13] MEDS: ISOSORBIDE MONONITRATE ER 60 MG TAB.ER.24H PO SCH (08:23)
[2018-02-13] MEDS: PANTOPRAZOLE 40 MG/10 ML VIAL IVP SCH (08:24)
[2018-02-13] MEDS: FERROUS SULFATE 325 MG TAB PO SCH (08:24)
[2018-02-13] MEDS: METOPROLOL TARTRATE 12.5 MG TAB PO SCH (08:24)
[2018-02-13] MEDS: metFORMIN 500 MG TAB PO SCH (08:25)
[2018-02-13] MEDS: traMADol 50 MG TAB PO SCH (08:30)
[2018-02-13] MEDS ORDERED: ERGOCALCIFEROL 50,000 UNIT CAP PO SCH (09:00)
--- NOTE | 2018-02-13 10:42 | P.DS ---
Providers Date of admission: 02/10/18 22:55 Attending physician: Aida Ndiaye Consults: 02/10/18 22:56 Consult Physician Routine Consulting Provider: Keri Garcia Consult Reason/Comments: GI bleed Do you want consulting provider notified?: Yes 02/11/18 00:49 Consult Physician Routine Consulting Provider: Garth Sims Consult Reason/Comments: cad Do you want consulting provider notified?: Yes Primary care physician: [facility] Hospital Course: 67-year-old pleasant gentleman admitted with some chronic anemia with hemoglobin of 6.6 received blood transfusion patient is in hemoglobin is 9.2. There is no evidence of GI bleed but patient underwent the capsule endoscopy since he had upper and lower GI endoscopy recently without any significant abnormality at that time. Capsule endoscopy did not reveal any significant source of bleeding. Patient is on aspirin and Plavix patient had previous carotid stents which were placed more than 2 years ago. 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 Patient does not have any clinical GI bleed with stable hemoglobin of 9.2 patient does have chronic kidney disease. Because of which I'm cutting down the Neurontin dose to 300 3 times a day from 600 3 times a day and discontinue metformin. Patient takes 20 units of Lantus and patient has been on 10 units of Lantus here patient can resume on 20 units of Lantus patient blood sugar is around 200 today. PHYSICAL EXAMINATION: GENERAL: The patient is alert and oriented x3, not in any acute distress. Well developed, well nourished. HEENT: Pupils are round and equally reacting to light. EOMI. No scleral icterus. No conjunctival pallor. Normocephalic, atraumatic. No pharyngeal erythema. No thyromegaly. CARDIOVASCULAR: S1 and S2 present. No murmurs, rubs, or gallops. PULMONARY: Chest is clear to auscultation, no wheezing or crackles. ABDOMEN: Soft, nontender, nondistended, normoactive bowel sounds. No palpable organomegaly. MUSCULOSKELETAL: No joint swelling or deformity. EXTREMITIES: No cyanosis, clubbing, or pedal edema. NEUROLOGICAL: Gross neurological examination did not reveal any focal deficits. SKIN: No rashes. For rest of the chronic medical problems and hospital course please refer to dictation from Dr. Ndiaye from yesterday Patient Condition at Discharge: Stable Plan - Discharge Summary Discharge Rx Participant: No New Discharge Prescriptions: Continue Metoprolol Tartrate [Lopressor] 12.5 mg PO BID Simvastatin [Zocor] 40 mg PO HS Isosorbide Mononitrate ER [Imdur] 60 mg PO DAILY Ranitidine HCl [Zantac] 150 mg PO BID Ergocalciferol (Vitamin D2) [Vitamin D2] 50,000 unit PO Q14D Cyanocobalamin [Vitamin B-12] 500 mcg PO DAILY traMADol HCL [Ultram] 50 mg PO TID Aspirin EC [Ecotrin Low Dose] 81 mg PO DAILY Clopidogrel [Plavix] 75 mg PO DAILY Sennosides-Docusate Sodium [Senokot-S] 2 tab PO TID PRN PRN Reason: Constipation Ferrous Sulfate [Iron (65 MG Elemental)] 325 mg PO BID Changed Gabapentin [Neurontin] 300 mg PO TID #0 Insulin Glargine [Lantus] 20 unit SQ HS #0 Discontinued metFORMIN HCL [Glucophage] 1,000 mg PO BID Discharge Medication List Cyanocobalamin [Vitamin B-12] 500 mcg PO DAILY 07/18/17 [History] Ergocalciferol (Vitamin D2) [Vitamin D2] 50,000 unit PO Q14D 07/18/17 [History] Isosorbide Mononitrate ER [Imdur] 60 mg PO DAILY 07/18/17 [History] Metoprolol Tartrate [Lopressor] 12.5 mg PO BID 07/18/17 [History] Ranitidine HCl [Zantac] 150 mg PO BID 07/18/17 [History] Simvastatin [Zocor] 40 mg PO HS 07/18/17 [History] traMADol HCL [Ultram] 50 mg PO TID 07/18/17 [History] Aspirin EC [Ecotrin Low Dose] 81 mg PO DAILY 02/10/18 [History] Clopidogrel [Plavix] 75 mg PO DAILY 02/10/18 [History] Ferrous Sulfate [Iron (65 MG Elemental)] 325 mg PO BID 02/10/18 [History] Sennosides-Docusate Sodium [Senokot-S] 2 tab PO TID PRN 02/10/18 [History] Gabapentin [Neurontin] 300 mg PO TID #0 02/13/18 [Rx] Insulin Glargine [Lantus] 20 unit SQ HS #0 02/13/18 [Rx] Follow up Appointment(s)/Referral(s): Vaishnavi Vazquez MD [STAFF PHYSICIAN] - 2 Weeks [facility] [Primary Care Provider] - 03/03/18 2:30 pm Patient Instructions/Handouts: Gastrointestinal Bleeding (DC), Anemia (DC) Discharge Disposition: HOME SELF-CARE
--- NOTE | 2018-02-13 11:09 | P.PN ---
Subjective Progress Note Date: 02/13/18 Principal diagnosis: Anemia Hemoccult positive Denies some emesis and adhesive melena. Hemoglobin 9.2. Status post capsule endoscopy preliminary reading identified no active bleeding. Denies abdominal pain. Objective - Vital Signs Vital signs: Vital Signs Temp 97.8 F 02/13/18 05:00 Pulse 69 02/13/18 05:00 Resp 16 02/13/18 05:00 BP 154/72 02/13/18 05:00 Pulse Ox 92 L 02/13/18 05:00 Intake & Output 02/12/18 02/13/18 02/13/18 18:59 06:59 18:59 Intake Total 980 Balance 980 Intake: Intake, IV Titration 500 Amount Sodium Chloride 0.9% 1, 500 000 ml @ 50 mls/hr IV . Q20H GRECIA Rx#:[id number] Oral 480 Other: Voiding Method Toilet Toilet # Voids 3 2 # Bowel Movements 3 - Exam General appearance: The patient is alert, oriented, in no acute distress. HET: Head is normocephalic and atraumatic. Pupils are equal and reactive. Oropharynx is clear without lesions. Neck: Supple without lymphadenopathy. Trachea midline. Heart: S1 S2. Regular rate and rhythm. Lungs: No crackles or wheezes are heard. Abdomen: Soft, nontender, nondistended with bowel sounds. No peritoneal signs. No palpable organomegaly or masses. Extremities: Normal skin color and turgor. No cyanosis, rash, ulceration, clubbing, or edema. Radial and pedal pulses are 2/4 bilaterally. Neurological: No focal deficits. Strength and sensation are grossly intact. - Labs CBC & Chem 7: 02/13/18 07:13 02/13/18 07:13 Labs: Abnormal Lab Results - Last 24 Hours (Table) 02/12/18 02/12/18 02/12/18 Range/Units 06:35 17:07 21:41 RBC (4.30-5.90) m/uL Hgb (13.0-17.5) gm/dL Hct (39.0-53.0) % RDW (11.5-15.5) % Lymphocytes # (1.0-4.8) k/uL BUN 23 H (9-20) mg/dL Creatinine 1.61 H (0.66-1.25) mg/dL Glucose 107 H (74-99) mg/dL POC Glucose (mg/dL) 173 H 172 H (75-99) mg/dL 02/13/18 02/13/18 02/13/18 Range/Units 07:13 07:13 07:23 RBC 3.02 L (4.30-5.90) m/uL Hgb 9.2 L (13.0-17.5) gm/dL Hct 28.4 L (39.0-53.0) % RDW 17.8 H (11.5-15.5) % Lymphocytes # 0.9 L (1.0-4.8) k/uL BUN 25 H (9-20) mg/dL Creatinine 1.87 H (0.66-1.25) mg/dL Glucose 191 H (74-99) mg/dL POC Glucose (mg/dL) 204 H (75-99) mg/dL Assessment and Plan (1) Iron deficiency anemia Narrative/Plan: 67-year-old gentleman with a history of iron deficiency anemia status post unremarkable EGD colonoscopy July 2017 admitted with hemoglobin of 6.6 positive Hemoccult stool without overt bleeding such as hematemesis hematochezia melena. Small bowel capsule endoscopy completed preliminary reading no active bleeding. Current Visit: No Status: Acute Code(s): D50.9 - IRON DEFICIENCY ANEMIA, UNSPECIFIED SNOMED Code(s): 49216009 (2) Stool guaiac positive Current Visit: Yes Status: Acute Code(s): R19.5 - OTHER FECAL ABNORMALITIES SNOMED Code(s): 00232189 (3) GI bleed Current Visit: Yes Status: Acute Code(s): K92.2 - GASTROINTESTINAL HEMORRHAGE, UNSPECIFIED SNOMED Code(s): 73114385 (4) Acute blood loss anemia Current Visit: Yes Status: Acute Code(s): D62 - ACUTE POSTHEMORRHAGIC ANEMIA SNOMED Code(s): 655492392 Plan: 1. Discharge return to office in 3-4 weeks for reevaluation. Continue with aspirin Plavix. CBC in 3-5 days follow up PCP. Continue with ferrous sulfate 325 mg twice daily as well as B12 supplementation. Continue GI prophylaxis Zantac 150 twice daily. Assessment and plan a care discussed with Dr. Garcia
== END 2018-02-13 11:20 | disposition home or self-care (01) | DRG 812 ==
LOC: EC 20:46 → 5MS5E 22:55
PROVIDERS: ADMIT Hospitalist; ATTEND Hospitalist
PROC: 30233N1 Transfusion of Nonautologous Red Blood Cells into Peripheral Vein, Percutaneous Approach (ICD-10-PCS; principal; 2018-02-10)
DX: D62 Acute posthemorrhagic anemia (principal); N17.9 Acute kidney failure, unspecified; E11.40 Type 2 diabetes mellitus with diabetic neuropathy, unspecified; E11.22 Type 2 diabetes mellitus with diabetic chronic kidney disease; I08.2 Rheumatic disorders of both aortic and tricuspid valves; N18.3 Chronic kidney disease, stage 3 (moderate); K21.9 Gastro-esophageal reflux disease without esophagitis; M54.41 Lumbago with sciatica, right side; M54.42 Lumbago with sciatica, left side; K29.60 Other gastritis without bleeding; E78.5 Hyperlipidemia, unspecified; D50.9 Iron deficiency anemia, unspecified; I77.810 Thoracic aortic ectasia; I12.9 Hypertensive chronic kidney disease with stage 1 through stage 4 chronic kidney disease, or unspecified chronic kidney disease; I25.10 Atherosclerotic heart disease of native coronary artery without angina pectoris; M47.9 Spondylosis, unspecified; M54.9 Dorsalgia, unspecified; R19.5 Other fecal abnormalities; G47.00 Insomnia, unspecified; F17.210 Nicotine dependence, cigarettes, uncomplicated; Z71.6 Tobacco abuse counseling; Z90.49 Acquired absence of other specified parts of digestive tract; Z79.82 Long term (current) use of aspirin; Z79.02 Long term (current) use of antithrombotics/antiplatelets; Z79.4 Long term (current) use of insulin; Z79.891 Long term (current) use of opiate analgesic; Z79.899 Other long term (current) drug therapy; Z87.19 Personal history of other diseases of the digestive system; Z95.828 Presence of other vascular implants and grafts; Z80.9 Family history of malignant neoplasm, unspecified
CPT/HCPCS: 36415; 71045; 80048; 80053; 81001; 82272; 82550; 82553; 83735; 83880; 84484; 85025; 85610; 85730; 86850; 86900; 86901; 86920; 91110; 93005; 93306; 93880; 96374; 96375; 96376; 99285

== ENCOUNTER 2018-03-04 10:59 | Inpatient (IN) | payer OTHER, MEDICARE ==
[2018-03-04] MEDS ORDERED: SODIUM CHLORIDE 0.9% 500 ML IV STA (11:38)
--- NOTE | 2018-03-04 11:39 | ED ---
General Adult HPI - General Chief complaint: Recheck/Abnormal Lab/Rx Stated complaint: Low Hgb Time Seen by Provider: 03/04/18 11:37 Source: patient, RN notes reviewed, old records reviewed Mode of arrival: wheelchair Limitations: no limitations - History of Present Illness Initial comments: This is a 59-year-old male the ER for evaluation. This patient presents today for evaluation regarding significant shortness of breath and weakness. Patient' s per family. States he feels like his hemoglobin is low. An outpatient blood test which showed low hemoglobin elevated potassium. Patient admits to recent decreased diet, decreased appetite and dehydration - Related Data Home Medications Medication Instructions Recorded Confirmed Cyanocobalamin [Vitamin B-12] 500 mcg PO DAILY 07/18/17 03/04/18 Ergocalciferol (Vitamin D2) 50,000 unit PO Q14D 07/18/17 03/04/18 [Vitamin D2] Metoprolol Tartrate [Lopressor] 12.5 mg PO BID 07/18/17 03/04/18 Ranitidine HCl [Zantac] 150 mg PO BID 07/18/17 03/04/18 Simvastatin [Zocor] 40 mg PO HS 07/18/17 03/04/18 traMADol HCL [Ultram] 100 mg PO BID 07/18/17 03/04/18 Aspirin EC [Ecotrin Low Dose] 81 mg PO DAILY 02/10/18 03/04/18 Ferrous Sulfate [Iron (65 MG 325 mg PO TID 02/10/18 03/04/18 Elemental)] Ascorbic Acid [Vitamin C] 500 mg PO DAILY 03/04/18 03/04/18 Clopidogrel Bisulfate [Plavix] 75 mg PO DAILY 03/04/18 03/04/18 Isosorbide Mononitrate ER [Imdur] 60 mg PO DAILY 03/04/18 03/04/18 Sennosides [Senna] 17.2 mg PO TID PRN 03/04/18 03/04/18 glipiZIDE [Glucotrol] 5 mg PO AC-TID 03/04/18 03/04/18 Previous Rx's Medication Instructions Recorded Gabapentin [Neurontin] 300 mg PO TID #0 02/13/18 Insulin Glargine [Lantus] 20 unit SQ HS #0 02/13/18 Allergies Allergy/AdvReac Type Severity Reaction Status Date / Time No Known Allergies Allergy Verified 03/04/18 12:22 Review of Systems ROS Statement: Those systems with pertinent positive or pertinent negative responses have been documented in the HPI. ROS Other: All systems not noted in ROS Statement are negative. Past Medical History Past Medical History: Coronary Artery Disease (CAD), Chest Pain / Angina, Diabetes Mellitus, GERD/Reflux, GI Bleed, Hyperlipidemia, Hypertension, Vascular Disorder Additional Past Medical History / Comment(s): Insomnia, abdominal distention that comes and goes, epistaxis, lower GI bleed, benign colon polyp, IDDM type II , low back pain with bilateral sciatica/neuropathy, DJD, past partial SBO treated conservatively, carotid disease, possible chronic kidney disease History of Any Multi-Drug Resistant Organisms: None Reported Past Surgical History: Cholecystectomy, Heart Catheterization Additional Past Surgical History / Comment(s): R caratid stent done in [place] , EGD/colonoscopyDece2016 Past Anesthesia/Blood Transfusion Reactions: No Reported Reaction Past Psychological History: No Psychological Hx Reported Smoking Status: Current every day smoker Past Alcohol Use History: None Reported Past Drug Use History: None Reported - Past Family History Father History Unknown: Yes Mother Family Medical History: Cancer Additional Family Medical History / Comment(s): Mother from metastatic cancer pelvic origin General Exam - General Exam Comments Initial Comments: Pale Limitations: no limitations General appearance: alert, in no apparent distress, anxious Head exam: Present: atraumatic, normocephalic, normal inspection Eye exam: Present: normal appearance, PERRL, EOMI. Absent: scleral icterus, conjunctival injection, periorbital swelling ENT exam: Present: normal exam, mucous membranes moist Neck exam: Present: normal inspection. Absent: tenderness, meningismus, lymphadenopathy Respiratory exam: Present: normal lung sounds bilaterally. Absent: respiratory distress, wheezes, rales, rhonchi, stridor Cardiovascular Exam: Present: regular rate, normal rhythm, normal heart sounds. Absent: systolic murmur, diastolic murmur, rubs, gallop, clicks GI/Abdominal exam: Present: soft, normal bowel sounds. Absent: distended, tenderness, guarding, rebound, rigid Extremities exam: Present: normal inspection, full ROM, normal capillary refill. Absent: tenderness, pedal edema, joint swelling, calf tenderness Back exam: Present: normal inspection Neurological exam: Present: alert, oriented X3, CN II-XII intact Psychiatric exam: Present: normal affect, normal mood Skin exam: Present: warm, dry, intact, normal color. Absent: rash Course Vital Signs 03/04/18 03/04/18 03/04/18 11:00 12:14 12:43 Temperature 98.1 F 97.9 F Pulse Rate 95 68 66 Respiratory 18 18 16 Rate Blood Pressure 148/98 135/63 152/69 O2 Sat by Pulse 96 97 96 Oximetry 03/04/18 13:20 Temperature Pulse Rate 64 Respiratory 18 Rate Blood Pressure 167/72 O2 Sat by Pulse 98 Oximetry - Reevaluation(s) Reevaluation #1: 03/04/18 13:42 Patient still remains significantly short of breath EKG Findings - EKG Comments: EKG Findings:: EKG shows normal sinus rhythm rate of 76, AR 146, QRS 90, QTc 459 Medical Decision Making - Medical Decision Making 59 male the ER with known history of positive GI bleeds coming in with significant anemia 3 symptomatically anemia. Also shortness of breath. Patient mildly dehydrated on exam. Patient be admitted for transfusion. - Lab Data Result diagrams: 03/04/18 12:03 03/04/18 12:03 Lab Results 03/04/18 03/04/18 03/04/18 Range/Units 12:03 12:03 12:03 WBC 8.6 (3.8-10.6) k/uL RBC 2.40 L (4.30-5.90) m/uL Hgb 7.3 L D (13.0-17.5) gm/dL Hct 23.9 L (39.0-53.0) % MCV 99.7 D (80.0-100.0) fL MCH 30.5 (25.0-35.0) pg MCHC 30.6 L (31.0-37.0) g/dL RDW 17.3 H (11.5-15.5) % Plt Count 372 (150-450) k/uL Neutrophils % 78 % Lymphocytes % 13 % Monocytes % 5 % Eosinophils % 2 % Basophils % 0 % Neutrophils # 6.7 (1.3-7.7) k/uL Lymphocytes # 1.1 (1.0-4.8) k/uL Monocytes # 0.5 (0-1.0) k/uL Eosinophils # 0.2 (0-0.7) k/uL Basophils # 0.0 (0-0.2) k/uL Hypochromasia Slight Anisocytosis Slight Macrocytosis Slight PT (9.0-12.0) sec INR (<1.2) APTT (22.0-30.0) sec Sodium 137 (137-145) mmol/L Potassium 5.2 H (3.5-5.1) mmol/L Chloride 103 (98-107) mmol/L Carbon Dioxide 26 (22-30) mmol/L Anion Gap 8 mmol/L BUN 18 (9-20) mg/dL Creatinine 1.52 H (0.66-1.25) mg/dL Est GFR (CKD-EPI)AfAm 54 (>60 ml/min/1.73 sqM) Est GFR (CKD-EPI)NonAf 47 (>60 ml/min/1.73 sqM) Glucose 175 H (74-99) mg/dL Calcium 8.8 (8.4-10.2) mg/dL Magnesium 2.1 (1.6-2.3) mg/dL Total Bilirubin 0.1 L (0.2-1.3) mg/dL AST 14 L (17-59) U/L ALT 22 (21-72) U/L Alkaline Phosphatase 70 (38-126) U/L Total Creatine Kinase 27 L (55-170) U/L CK-MB (CK-2) 0.6 (0.0-2.4) ng/mL CK-MB (CK-2) Rel Index 2.2 Troponin I <0.012 (0.000-0.034) ng/mL Total Protein 5.3 L (6.3-8.2) g/dL Albumin 3.0 L (3.5-5.0) g/dL Blood Type Blood Type Recheck Antibody Screen Spec Expiration Date 03/04/18 03/04/18 Range/Units 12:03 12:03 WBC (3.8-10.6) k/uL RBC (4.30-5.90) m/uL Hgb (13.0-17.5) gm/dL Hct (39.0-53.0) % MCV (80.0-100.0) fL MCH (25.0-35.0) pg MCHC (31.0-37.0) g/dL RDW (11.5-15.5) % Plt Count (150-450) k/uL Neutrophils % % Lymphocytes % % Monocytes % % Eosinophils % % Basophils % % Neutrophils # (1.3-7.7) k/uL Lymphocytes # (1.0-4.8) k/uL Monocytes # (0-1.0) k/uL Eosinophils # (0-0.7) k/uL Basophils # (0-0.2) k/uL Hypochromasia Anisocytosis Macrocytosis PT 9.4 (9.0-12.0) sec INR 0.9 (<1.2) APTT 22.2 (22.0-30.0) sec Sodium (137-145) mmol/L Potassium (3.5-5.1) mmol/L Chloride (98-107) mmol/L Carbon Dioxide (22-30) mmol/L Anion Gap mmol/L BUN (9-20) mg/dL Creatinine (0.66-1.25) mg/dL Est GFR (CKD-EPI)AfAm (>60 ml/min/1.73 sqM) Est GFR (CKD-EPI)NonAf (>60 ml/min/1.73 sqM) Glucose (74-99) mg/dL Calcium (8.4-10.2) mg/dL Magnesium (1.6-2.3) mg/dL Total Bilirubin (0.2-1.3) mg/dL AST (17-59) U/L ALT (21-72) U/L Alkaline Phosphatase (38-126) U/L Total Creatine Kinase (55-170) U/L CK-MB (CK-2) (0.0-2.4) ng/mL CK-MB (CK-2) Rel Index Troponin I (0.000-0.034) ng/mL Total Protein (6.3-8.2) g/dL Albumin (3.5-5.0) g/dL Blood Type B Positive Blood Type Recheck No Antibody Screen NEGATIVE Spec Expiration Date 03/07/2018 - 4459 - Radiology Data Radiology results: report reviewed (Chest x-rays negative), image reviewed Disposition Clinical Impression: Symptomatic anemia, Acute blood loss anemia Disposition: ADMITTED IP TO THIS [facility] Condition: Fair Is patient prescribed a controlled substance at d/c from ED?: No Referrals: [facility],Clinic [Primary Care Provider] - 1-2 days
[2018-03-04 12:30] LABS: Anisocytosis Slight; Basophils % (A) 0 %; Eosinophils # (A) 0.2 k/uL (0-0.7); Eosinophils % (A) 2 %; HCT 23.9 % (39.0-53.0); Hypochromasia Slight; Lymphocytes # (A) 1.1 k/uL (1.0-4.8); Lymphocytes % (A) 13 %; MCH 30.5 pg (25.0-35.0); MCHC 30.6 g/dL (31.0-37.0); Macrocytosis Slight; Monocytes # (A) 0.5 k/uL (0-1.0); Monocytes % (A) 5 %; Neutrophils # (A) 6.7 k/uL (1.3-7.7); Neutrophils % (A) 78 %; Platelet Count 372 k/uL (150-450); RDW 17.3 % (11.5-15.5); WBC 8.6 k/uL (3.8-10.6)
[2018-03-04 12:34] LABS: HGB 7.3 gm/dL (13.0-17.5); MCV 99.7 fL (80.0-100.0)
[2018-03-04 12:36] LABS: INR 0.9 (<1.2); Partial Thromboplastin Time 22.2 sec (22.0-30.0); Prothrombin Time 9.4 sec (9.0-12.0)
[2018-03-04 12:46] LABS: Calcium 8.8 mg/dL (8.4-10.2); Magnesium 2.1 mg/dL (1.6-2.3); Potassium 5.2 mmol/L (3.5-5.1); Total Bilirubin 0.1 mg/dL (0.2-1.3); Total Protein 5.3 g/dL (6.3-8.2)
[2018-03-04 13:02] LABS: Creatine Kinase 27 U/L (55-170)
[2018-03-04 13:14] LABS: Creatine Kinase MB 0.6 ng/mL (0.0-2.4); Troponin I <0.012 ng/mL (0.000-0.034)
[2018-03-04] MEDS ORDERED: IPRATROPIUM-ALBUTEROL 3 ML NEB INHALATION STA (13:39)
[2018-03-04] MEDS ORDERED: IPRATROPIUM-ALBUTEROL 3 ML NEB INHALATION PRN (13:39)
--- NOTE | 2018-03-04 14:08 | XR ---
EXAMINATION TYPE: XR chest 2V DATE OF EXAM: 03/04/2018 COMPARISON: Prior chest 02/11/2018 HISTORY: Pain and shortness of breath TECHNIQUE: Frontal and lateral views of the chest are obtained. FINDINGS: There is no focal air space opacity, pleural effusion, or pneumothorax seen. The cardiac silhouette size is stable. Prominent lung volume could be indicative of COPD. There are overlying car diac leads. The osseous structures are intact. IMPRESSION: No acute cardiopulmonary process.
[2018-03-04 16:56] LABS: Glucose,Whole Blood 149 mg/dL (75-99)
[2018-03-04] MEDS ORDERED: SENNOSIDES 8.6 MG TAB PO PRN (17:38)
--- NOTE | 2018-03-04 17:56 | P.HPIM ---
History of Present Illness 59-year-old pleasant gentleman Came in with complaints of dizziness generalized weakness, patient was actually sent in by the PCP because of his low hemoglobin of 6.8 patient denied any fever chills nausea vomiting. Patient denied any symptoms of GI bleed patient move his bowel once in 2 days because of the opiates and iron supplementation is receiving. Patient was extensively evaluated with upper lower GI endoscopy without any acute bleeding patient had mild antral gastritis in the past, colonoscopy and capsule endoscopy. Patient is taking aspirin and Plavix for the a carotid stent that was placed 4 years ago patient will not require for these medications any longer. Patient denied any hematemesis hematochezia. Patient appears to have mild macrocytic anemia. Patient was admitted in the hospital 3 weeks ago at that time patient was given iron supplementation patient B12 levels are essentially within normal limits, folic acid levels are essentially within normal limits patient had normal LDH during previous auscultations along with the normal bilirubin. Patient may need evaluation by hematology. TSH is essentially within normal limits. Patient is receiving blood transfusion which I believe is appropriate as patient has symptomatically anemia. I'll also give him IV iron and hematology evaluation and follow-up with hematology as an outpatient possibility of discharge tomorrow Review of Systems REVIEW OF SYSTEMS: CONSTITUTIONAL: No fever, HEENT: No recent visual problems or hearing problems. Denied any sore throat. CARDIOVASCULAR: No chest pain, orthopnea, PND, no palpitations, no syncope. PULMONARY: No shortness of breath, no cough, no hemoptysis. GASTROINTESTINAL: No diarrhea, no nausea, no vomiting, no abdominal pain. Normoactive bowel sounds. NEUROLOGICAL: No headaches, no weakness, no numbness. HEMATOLOGICAL: Denies any bleeding or petechiae. GENITOURINARY: Denies any burning micturition, frequency, or urgency. MUSCULOSKELETAL/RHEUMATOLOGICAL: Denies any joint pain, swelling, or any muscle pain. ENDOCRINE: Denies any polyuria or polydipsia. The rest of the 14-point review of systems is negative. Past Medical History Past Medical History: Coronary Artery Disease (CAD), Chest Pain / Angina, Diabetes Mellitus, GERD/Reflux, GI Bleed, Hyperlipidemia, Hypertension, Vascular Disorder Additional Past Medical History / Comment(s): Insomnia, abdominal distention that comes and goes, epistaxis, lower GI bleed, benign colon polyp, IDDM type II , low back pain with bilateral sciatica/neuropathy, DJD, past partial SBO treated conservatively, carotid disease, possible chronic kidney disease History of Any Multi-Drug Resistant Organisms: None Reported Past Surgical History: Cholecystectomy, Heart Catheterization Additional Past Surgical History / Comment(s): R caratid stent done in [place] , EGD/colonoscopyDeceer 2017 Past Anesthesia/Blood Transfusion Reactions: No Reported Reaction Past Psychological History: No Psychological Hx Reported Additional Psychological History / Comment(s): Pt resides with his spouse and their 2 dogs. Pt uses a cane to ambulate. He has a mobility scooter which he uses prn. He does not drive, his spouse drives. Smoking Status: Current every day smoker Past Alcohol Use History: None Reported Additional Past Alcohol Use History / Comment(s): Pt started smoking in 1966 and is a 1-2 ppd smoker. Past Drug Use History: None Reported Additional Drug Use History / Comment(s): Pt states he takes a couple puffs from a marijuana joint occasionally - Past Family History Father History Unknown: Yes Mother Family Medical History: Cancer Additional Family Medical History / Comment(s): Mother from metastatic cancer pelvic origin Medications and Allergies Home Medications Medication Instructions Recorded Confirmed Type Cyanocobalamin [Vitamin B-12] 500 mcg PO DAILY 07/18/17 03/04/18 History Ergocalciferol (Vitamin D2) 50,000 unit PO Q14D 07/18/17 03/04/18 History [Vitamin D2] Metoprolol Tartrate [Lopressor] 12.5 mg PO BID 07/18/17 03/04/18 History Ranitidine HCl [Zantac] 150 mg PO BID 07/18/17 03/04/18 History Simvastatin [Zocor] 40 mg PO HS 07/18/17 03/04/18 History traMADol HCL [Ultram] 100 mg PO BID 07/18/17 03/04/18 History Aspirin EC [Ecotrin Low Dose] 81 mg PO DAILY 02/10/18 03/04/18 History Ferrous Sulfate [Iron (65 MG 325 mg PO TID 02/10/18 03/04/18 History Elemental)] Gabapentin [Neurontin] 300 mg PO TID #0 02/13/18 03/04/18 Rx Insulin Glargine [Lantus] 20 unit SQ HS #0 02/13/18 03/04/18 Rx Ascorbic Acid [Vitamin C] 500 mg PO DAILY 03/04/18 03/04/18 History Clopidogrel Bisulfate [Plavix] 75 mg PO DAILY 03/04/18 03/04/18 History Isosorbide Mononitrate ER [Imdur] 60 mg PO DAILY 03/04/18 03/04/18 History Sennosides [Senna] 17.2 mg PO TID PRN 03/04/18 03/04/18 History glipiZIDE [Glucotrol] 5 mg PO AC-TID 03/04/18 03/04/18 History Allergies Allergy/AdvReac Type Severity Reaction Status Date / Time No Known Allergies Allergy Verified 03/04/18 12:22 Physical Exam Vitals: Vital Signs Temp Pulse Pulse Resp BP BP Pulse Ox 03/04/18 17:09 99 F 69 140/69 03/04/18 16:39 97.5 F L 67 142/70 98 03/04/18 16:29 97.2 F L 63 18 143/28 98 03/04/18 14:33 97.9 F 66 18 165/71 98 03/04/18 14:22 66 18 165/71 03/04/18 14:20 97.2 F L 66 16 130/57 97 03/04/18 14:08 62 16 03/04/18 13:59 63 14 03/04/18 13:20 64 18 167/72 98 03/04/18 12:43 97.9 F 66 16 152/69 96 03/04/18 12:14 68 18 135/63 97 03/04/18 11:00 98.1 F 95 18 148/98 96 Intake and Output 03/04/18 03/04/18 03/04/18 06:59 14:59 22:59 Intake Total 600 Balance 600 Intake: Oral 600 Blood Product 0 Rc As-1 Unit 0 [id number] Other: # Voids 1 Weight 83.915 kg PHYSICAL EXAMINATION: GENERAL: The patient is alert and oriented x3, not in any acute distress. Well developed, well nourished. looks pale HEENT: Pupils are round and equally reacting to light. EOMI. No scleral icterus. Patient does have conjunctival pallor. Normocephalic, atraumatic. No pharyngeal erythema. No thyromegaly. CARDIOVASCULAR: S1 and S2 present. No murmurs, rubs, or gallops. PULMONARY: Chest is clear to auscultation, no wheezing or crackles. ABDOMEN: Soft, nontender, nondistended, normoactive bowel sounds. No palpable organomegaly. MUSCULOSKELETAL: No joint swelling or deformity. EXTREMITIES: No cyanosis, clubbing, or pedal edema. NEUROLOGICAL: Gross neurological examination did not reveal any focal deficits. SKIN: No rashes. Results CBC & Chem 7: 03/04/18 12:03 03/04/18 12:03 Labs: Abnormal Lab Results - Last 24 Hours (Table) 03/04/18 03/04/18 03/04/18 Range/Units 12:03 12:03 12:03 RBC 2.40 L (4.30-5.90) m/uL Hgb 7.3 L D (13.0-17.5) gm/dL Hct 23.9 L (39.0-53.0) % MCHC 30.6 L (31.0-37.0) g/dL RDW 17.3 H (11.5-15.5) % Potassium 5.2 H (3.5-5.1) mmol/L Creatinine 1.52 H (0.66-1.25) mg/dL Glucose 175 H (74-99) mg/dL POC Glucose (mg/dL) (75-99) mg/dL Total Bilirubin 0.1 L (0.2-1.3) mg/dL AST 14 L (17-59) U/L Total Creatine Kinase 27 L (55-170) U/L Total Protein 5.3 L (6.3-8.2) g/dL Albumin 3.0 L (3.5-5.0) g/dL Crossmatch 03/04/18 03/04/18 Range/Units 12:03 16:25 RBC (4.30-5.90) m/uL Hgb (13.0-17.5) gm/dL Hct (39.0-53.0) % MCHC (31.0-37.0) g/dL RDW (11.5-15.5) % Potassium (3.5-5.1) mmol/L Creatinine (0.66-1.25) mg/dL Glucose (74-99) mg/dL POC Glucose (mg/dL) 149 H (75-99) mg/dL Total Bilirubin (0.2-1.3) mg/dL AST (17-59) U/L Total Creatine Kinase (55-170) U/L Total Protein (6.3-8.2) g/dL Albumin (3.5-5.0) g/dL Crossmatch See Detail Thrombosis Risk Factor Assmnt - Choose All That Apply Each Factor Represents 1 point: Obesity (BMI >25) Each Risk Factor Represents 2 Points: Age 61-74 years Thrombosis Risk Factor Assessment Total Risk Factor Score: 3 Thrombosis Risk Factor Assessment Level: Moderate Risk Assessment and Plan Plan: -Symptomatic anemia without any evidence of GI bleed. 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 -Type 2 diabetes mellitus next and hypogastric esophageal reflux disease -Hyperlipidemia -Hypertension -Carotid vascular disease with previous carotid stent. Patient will need aspirin will not require any Plavix anymore although patient does not have any evidence of acute GI bleed. Mild hyperkalemia unsure of the exact etiology we'll repeat basic metabolic profile tomorrow.
[2018-03-04] MEDS: FAMOTIDINE 20 MG TAB PO SCH (20:49)
[2018-03-04] MEDS: traMADol 50 MG TAB PO SCH (20:49)
[2018-03-04] MEDS: METOPROLOL TARTRATE 12.5 MG TAB PO SCH (20:49)
[2018-03-04] MEDS: FERROUS SULFATE 325 MG TAB PO SCH (20:50)
[2018-03-04] MEDS: GABAPENTIN 300 MG CAP PO SCH (20:51)
[2018-03-04] MEDS ORDERED: ATORVASTATIN 20 MG TAB PO SCH (21:00)
[2018-03-04] MEDS ORDERED: INSULIN DETEMIR 100 UNIT/ML 10 ML VIAL SQ SCH (21:00)
[2018-03-04 21:13] LABS: Glucose,Whole Blood 176 mg/dL (75-99)
[2018-03-05 05:02] VITALS: RESP 18
[2018-03-05 07:09] VITALS: BP 168/75; PULSE 68; TEMP 97.9
[2018-03-05 07:23] LABS: Glucose,Whole Blood 82 mg/dL (75-99)
[2018-03-05] MEDS: FERROUS SULFATE 325 MG TAB PO SCH (08:34)
[2018-03-05] MEDS: FAMOTIDINE 20 MG TAB PO SCH (08:34)
[2018-03-05] MEDS: METOPROLOL TARTRATE 12.5 MG TAB PO SCH (08:34)
[2018-03-05] MEDS: glipiZIDE 5 MG TAB PO SCH ×2 (08:34→12:36)
[2018-03-05] MEDS: GABAPENTIN 300 MG CAP PO SCH (08:34)
[2018-03-05] MEDS: traMADol 50 MG TAB PO SCH (08:34)
[2018-03-05] MEDS ORDERED: SODIUM FERRIC GLUCONAT-SUCROSE 125 MG in SODIUM CHLORIDE 0.9% 100 ML IVPB SCH (09:00)
[2018-03-05] MEDS ORDERED: ISOSORBIDE MONONITRATE ER 60 MG TAB.ER.24H PO SCH (09:00)
[2018-03-05] MEDS ORDERED: CLOPIDOGREL 75 MG TAB PO SCH (09:00)
[2018-03-05] MEDS ORDERED: ASPIRIN 81 MG PO SCH (09:00)
[2018-03-05 09:11] LABS: Anisocytosis Slight; HCT 29.6 % (39.0-53.0); Hypochromasia Slight; MCH 31.6 pg (25.0-35.0); MCHC 31.5 g/dL (31.0-37.0); MCV 100.2 fL (80.0-100.0); Macrocytosis Slight; Mean Platelet Volume 7.2; Platelet Count 427 k/uL (150-450); RBC 2.95 m/uL (4.30-5.90); RDW 17.4 % (11.5-15.5); WBC 12.3 k/uL (3.8-10.6)
[2018-03-05 09:13] LABS: Potassium 4.7 mmol/L (3.5-5.1)
[2018-03-05 09:14] LABS: HGB 9.3 gm/dL (13.0-17.5)
[2018-03-05] MEDS ORDERED: CYANOCOBALAMIN 500 MCG TAB PO SCH (12:00)
[2018-03-05 12:44] LABS: Glucose,Whole Blood 247 mg/dL (75-99)
--- NOTE | 2018-03-05 18:07 | P.CONS ---
History of Present Illness - Reason for Consult Consult date: 03/05/18 anemia Requesting physician: Landy Jean Baptiste - Chief Complaint shortness of breath - History of Present Illness Mr. Egan is a very pleasant 67-year-old male with a history of anemia since July 2017. Patient denies any prior history of anemia, medical history includes GI bleed, EGD and colonoscopy 07/20/17 with 3 polyps removed, diabetes mellitus with chronic renal insufficiency, he has cardiac stents and is on aspirin. Anemia work shows iron deficiency. Patient states that he has required at least 3 blood transfusions since July , always feels bloated. Denies fevers, nosebleeds, gum bleeding, difficulty swallowing, loss or change in appetite, unintentional weight loss, nausea, vomiting, has mild activity intolerance, denies chest pains, can be SOB with exertion, denies cough, pleuritic chest pain, no hematuria, hematochezia, melena , swelling in the legs, new or unusual musculoskeletal aches or pain. He uses cane or scooter PRN. Review of Systems 14 point review of systems is as stated in HPI Past Medical History Past Medical History: Coronary Artery Disease (CAD), Chest Pain / Angina, Diabetes Mellitus, GERD/Reflux, GI Bleed, Hyperlipidemia, Hypertension, Vascular Disorder Additional Past Medical History / Comment(s): Insomnia, abdominal distention that comes and goes, epistaxis, lower GI bleed, benign colon polyp, IDDM type II , low back pain with bilateral sciatica/neuropathy, DJD, past partial SBO treated conservatively, carotid disease, possible chronic kidney disease History of Any Multi-Drug Resistant Organisms: None Reported Past Surgical History: Cholecystectomy, Heart Catheterization Additional Past Surgical History / Comment(s): R caratid stent done in [place] , EGD/colonoscopyJuly 2017 Past Anesthesia/Blood Transfusion Reactions: No Reported Reaction Past Psychological History: No Psychological Hx Reported Additional Psychological History / Comment(s): Pt resides with his spouse and their 2 dogs. Pt uses a cane to ambulate. He has a mobility scooter which he uses prn. He does not drive, his spouse drives. Smoking Status: Current every day smoker Past Alcohol Use History: None Reported Additional Past Alcohol Use History / Comment(s): Pt started smoking in 1966 and is a 1-2 ppd smoker. Past Drug Use History: None Reported Additional Drug Use History / Comment(s): Pt states he takes a couple puffs from a marijuana joint occasionally - Past Family History Father History Unknown: Yes Mother Family Medical History: Cancer Additional Family Medical History / Comment(s): Mother from metastatic cancer pelvic origin Medications and Allergies Home Medications Medication Instructions Recorded Confirmed Type Cyanocobalamin [Vitamin B-12] 500 mcg PO DAILY 07/18/17 03/04/18 History Ergocalciferol (Vitamin D2) 50,000 unit PO Q14D 07/18/17 03/04/18 History [Vitamin D2] Metoprolol Tartrate [Lopressor] 12.5 mg PO BID 07/18/17 03/04/18 History Ranitidine HCl [Zantac] 150 mg PO BID 07/18/17 03/04/18 History Simvastatin [Zocor] 40 mg PO HS 07/18/17 03/04/18 History traMADol HCL [Ultram] 100 mg PO BID 07/18/17 03/04/18 History Aspirin EC [Ecotrin Low Dose] 81 mg PO DAILY 02/10/18 03/04/18 History Ferrous Sulfate [Iron (65 MG 325 mg PO TID 02/10/18 03/04/18 History Elemental)] Gabapentin [Neurontin] 300 mg PO TID #0 02/13/18 03/04/18 Rx Insulin Glargine [Lantus] 20 unit SQ HS #0 02/13/18 03/04/18 Rx Isosorbide Mononitrate ER [Imdur] 60 mg PO DAILY 03/04/18 03/04/18 History Sennosides [Senna] 17.2 mg PO TID PRN 03/04/18 03/04/18 History glipiZIDE [Glucotrol] 5 mg PO AC-TID 03/04/18 03/04/18 History Allergies Allergy/AdvReac Type Severity Reaction Status Date / Time No Known Allergies Allergy Verified 03/04/18 12:22 Physical Exam Vitals: Vital Signs Temp Pulse Pulse Resp BP BP Pulse Ox 03/05/18 07:00 97.9 F 68 18 168/75 94 L 03/04/18 23:00 98.0 F 70 18 160/69 96 03/04/18 19:54 98.5 F 66 17 169/75 Intake and Output 03/05/18 03/05/18 03/05/18 06:59 14:59 22:59 Other: # Voids 2 1 - Constitutional General appearance: average body habitus, cooperative, no acute distress - EENT Eyes: anicteric sclerae, EOMI ENT: normal oropharynx - Neck Neck: no lymphadenopathy - Respiratory Respiratory: bilateral: CTA - Cardiovascular Rhythm: regular Heart sounds: normal: S1, S2 Abnormal Heart Sounds: systolic murmur leg Peripheral Edema: bilateral: Trace - Gastrointestinal General gastrointestinal: no absent bowel sounds, no decreased bowel sounds, no distended, no hepatomegaly, no hyperactive bowel sounds, normal bowel sounds, no organomegaly, no rigid, no scaphoid, soft, no splenomegaly, no tenderness, no umbilical hernia, no ventral hernia - Integumentary Integumentary: normal turgor - Neurologic Neurologic: CNII-XII intact - Musculoskeletal Musculoskeletal: strength equal bilaterally - Psychiatric Psychiatric: A&O x's 3, appropriate affect, intact judgment & insight Results CBC & Chem 7: 03/05/18 08:19 03/05/18 08:19 Labs: Abnormal Lab Results - Last 24 Hours (Table) 03/04/18 03/04/18 03/05/18 Range/Units 12:03 21:03 08:19 WBC 12.3 H (3.8-10.6) k/uL RBC 2.95 L (4.30-5.90) m/uL Hgb 9.3 L D (13.0-17.5) gm/dL Hct 29.6 L (39.0-53.0) % MCV 100.2 H (80.0-100.0) fL RDW 17.4 H (11.5-15.5) % Creatinine (0.66-1.25) mg/dL POC Glucose (mg/dL) 176 H (75-99) mg/dL Crossmatch See Detail 03/05/18 03/05/18 Range/Units 08:19 12:17 WBC (3.8-10.6) k/uL RBC (4.30-5.90) m/uL Hgb (13.0-17.5) gm/dL Hct (39.0-53.0) % MCV (80.0-100.0) fL RDW (11.5-15.5) % Creatinine 1.54 H (0.66-1.25) mg/dL POC Glucose (mg/dL) 247 H (75-99) mg/dL Crossmatch Assessment and Plan (1) Iron deficiency anemia Status: Acute Priority: High Code(s): D50.9 - IRON DEFICIENCY ANEMIA, UNSPECIFIED SNOMED Code(s): 74543482 (2) Macrocytic anemia Status: Acute Priority: Medium Code(s): D53.9 - NUTRITIONAL ANEMIA, UNSPECIFIED SNOMED Code(s): 18343938 (3) CKD (chronic kidney disease), stage III Status: Chronic Priority: Medium Code(s): N18.3 - CHRONIC KIDNEY DISEASE, STAGE 3 (MODERATE) SNOMED Code(s): 436766571 (4) Symptomatic anemia Status: Acute Priority: Medium Code(s): D64.9 - ANEMIA, UNSPECIFIED SNOMED Code(s): 127787568 Plan: Patient has received 1 unit of packed red blood cells with improvement in his hemoglobin to just above 9. Patient did receive 1 dose of parenteral iron. Plan is to continue parenteral iron in the outpatient setting until adequate Hgb and iron stores are achieved. May consider further workup of chronic disease as this may be contributing to patient's anemia. No acute workup needed, can be completed in the outpatient setting. Patient will follow-up with Dr. Singletary.
[2018-03-06] MEDS ORDERED: FAMOTIDINE 20 MG TAB PO SCH (09:00)
== END 2018-03-05 14:44 | disposition home or self-care (01) | DRG 812 ==
LOC: EC 10:59 → 4MS4W 13:41
PROVIDERS: ADMIT Hospitalist; ATTEND Hospitalist
PROC: 30233N1 Transfusion of Nonautologous Red Blood Cells into Peripheral Vein, Percutaneous Approach (ICD-10-PCS; principal; 2018-03-04)
DX: D50.9 Iron deficiency anemia, unspecified (principal); E11.22 Type 2 diabetes mellitus with diabetic chronic kidney disease; E78.5 Hyperlipidemia, unspecified; E87.5 Hyperkalemia; F17.200 Nicotine dependence, unspecified, uncomplicated; I12.9 Hypertensive chronic kidney disease with stage 1 through stage 4 chronic kidney disease, or unspecified chronic kidney disease; I25.10 Atherosclerotic heart disease of native coronary artery without angina pectoris; K21.9 Gastro-esophageal reflux disease without esophagitis; N18.3 Chronic kidney disease, stage 3 (moderate); Z79.02 Long term (current) use of antithrombotics/antiplatelets; Z79.4 Long term (current) use of insulin; Z79.82 Long term (current) use of aspirin; Z79.899 Other long term (current) drug therapy; Z86.010 Personal history of colon polyps; E11.40 Type 2 diabetes mellitus with diabetic neuropathy, unspecified
CPT/HCPCS: 36415; 71046; 80048; 80053; 82550; 82553; 83735; 84484; 85025; 85027; 85610; 85730; 86850; 86900; 86901; 86920; 93005; 94640; 96360; 96361; 99285

== ENCOUNTER 2018-05-24 18:27 | Inpatient (IN) | payer OTHER, MEDICARE ==
[2018-05-24] MEDS ORDERED: MORPHINE SULFATE 4 MG/ML SYRINGE IVP STA ×2 (19:57→23:33)
[2018-05-24] MEDS ORDERED: IOPAMIDOL-300 CONTRAST 30 ML VIAL (ORAL USE) PO PRN (19:57)
[2018-05-24] MEDS ORDERED: KETOROLAC 30 MG/ML 1 ML VIAL IVP STA (19:57)
[2018-05-24] MEDS ORDERED: SODIUM CHLORIDE 0.9% 1,000 ML IV ONE (19:57)
[2018-05-24] MEDS ORDERED: ONDANSETRON 4 MG/2 ML VIAL IVP STA ×2 (19:57→23:33)
--- NOTE | 2018-05-24 20:02 | ED ---
Abdominal Pain HPI - General Chief Complaint: Abdominal Pain Stated Complaint: Abd Pain/Vomiting Time Seen by Provider: 05/24/18 19:43 Source: patient Mode of arrival: wheelchair Limitations: no limitations - History of Present Illness Initial Comments: Patient is a 68-year-old male who presents with a chief complaint of abdominal pain. This been going on for 1 day. The patient says that he has had episodes of nausea and vomiting, and feels bloated. He has a history of small bowel obstruction. Patient states last normal was today but was very small. He admits to chest pain, but is not short of breath. - Related Data Home Medications Medication Instructions Recorded Confirmed Cyanocobalamin [Vitamin B-12] 500 mcg PO DAILY 07/18/17 03/04/18 Ergocalciferol (Vitamin D2) 50,000 unit PO Q14D 07/18/17 03/04/18 [Vitamin D2] Metoprolol Tartrate [Lopressor] 12.5 mg PO BID 07/18/17 03/04/18 Ranitidine HCl [Zantac] 150 mg PO BID 07/18/17 03/04/18 Simvastatin [Zocor] 40 mg PO HS 07/18/17 03/04/18 traMADol HCL [Ultram] 100 mg PO BID 07/18/17 03/04/18 Aspirin EC [Ecotrin Low Dose] 81 mg PO DAILY 02/10/18 03/04/18 Ferrous Sulfate [Iron (65 MG 325 mg PO TID 02/10/18 03/04/18 Elemental)] Isosorbide Mononitrate ER [Imdur] 60 mg PO DAILY 03/04/18 03/04/18 Sennosides [Senna] 17.2 mg PO TID PRN 03/04/18 03/04/18 glipiZIDE [Glucotrol] 5 mg PO AC-TID 03/04/18 03/04/18 Previous Rx's Medication Instructions Recorded Gabapentin [Neurontin] 300 mg PO TID #0 02/13/18 Insulin Glargine [Lantus] 20 unit SQ HS #0 02/13/18 Allergies Allergy/AdvReac Type Severity Reaction Status Date / Time No Known Allergies Allergy Verified 05/24/18 18:46 Review of Systems ROS Statement: Those systems with pertinent positive or pertinent negative responses have been documented in the HPI. ROS Other: All systems not noted in ROS Statement are negative. Cardiovascular: Reports: chest pain Gastrointestinal: Reports: abdominal pain, nausea, vomiting Past Medical History Past Medical History: Coronary Artery Disease (CAD), Chest Pain / Angina, Diabetes Mellitus, GERD/Reflux, GI Bleed, Hyperlipidemia, Hypertension, Vascular Disorder Additional Past Medical History / Comment(s): Insomnia, abdominal distention that comes and goes, epistaxis, lower GI bleed, benign colon polyp, IDDM type II , low back pain with bilateral sciatica/neuropathy, DJD, past partial SBO treated conservatively, carotid disease, possible chronic kidney disease History of Any Multi-Drug Resistant Organisms: None Reported Past Surgical History: Cholecystectomy, Heart Catheterization Additional Past Surgical History / Comment(s): [facility] [place] [facility] Past Anesthesia/Blood Transfusion Reactions: No Reported Reaction Past Psychological History: No Psychological Hx Reported Smoking Status: Current every day smoker Past Alcohol Use History: None Reported Past Drug Use History: None Reported - Past Family History Father History Unknown: Yes Mother Family Medical History: Cancer Additional Family Medical History / Comment(s): Mother from metastatic cancer pelvic origin General Exam Limitations: no limitations General appearance: alert, in no apparent distress Head exam: Present: atraumatic, normocephalic Eye exam: Present: normal appearance, PERRL ENT exam: Present: normal exam, mucous membranes moist Neck exam: Present: normal inspection Respiratory exam: Present: normal lung sounds bilaterally. Absent: respiratory distress, wheezes, rales Cardiovascular Exam: Present: regular rate, normal rhythm GI/Abdominal exam: Present: distended, tenderness Rectal exam: Present: deferred Extremities exam: Present: normal inspection Back exam: Present: normal inspection Neurological exam: Present: alert, oriented X3 Psychiatric exam: Present: normal affect, normal mood Skin exam: Present: warm, dry, intact Course Vital Signs 05/24/18 05/24/18 05/24/18 18:43 22:09 23:48 Temperature 98.5 F Pulse Rate 85 81 78 Respiratory 20 20 20 Rate Blood Pressure 214/92 212/88 O2 Sat by Pulse 99 100 98 Oximetry Medical Decision Making - Medical Decision Making Patient presents with chief complaint abdominal pain. On initial evaluation, vitals are stable, patient is no acute distress. Abdomen is distended and tender palpation, there is no guarding or rebound. Concern for bowel obstruction given patient's history. Patient to be evaluated with basic labs including liver profile, troponin, EKG, acute abdominal series and computed tomography scan. Patient given morphine, Toradol, and Zofran for symptomatically relief. 12:41 AM Lab evaluation this patient shows a mild leukocytosis, hemoglobin is is stable at 12 was improved from previous value of 9.3. Abdominal x-ray shows dilated loops of bowel consistent with ileus. Computed tomography scan does not show any mechanical obstruction. On reevaluation, patient still appears very uncomfortable. He was given a second dose pain medication and nausea medication. At this time, the patient will be placed in observation for serial abdominal exams. Case discussed with Dr. Ndiaye who accepts admission with consult to general surgery. Patient and family updated on results and care plan , they are agreeable. - Lab Data Result diagrams: 05/24/18 20:15 05/24/18 20:15 Lab Results 05/24/18 05/24/18 05/24/18 Range/Units 20:15 20:15 20:15 WBC 14.3 H (3.8-10.6) k/uL RBC 3.91 L (4.30-5.90) m/uL Hgb 12.3 L (13.0-17.5) gm/dL Hct 37.5 L (39.0-53.0) % MCV 95.9 (80.0-100.0) fL MCH 31.5 (25.0-35.0) pg MCHC 32.9 (31.0-37.0) g/dL RDW 14.0 (11.5-15.5) % Plt Count 228 (150-450) k/uL Neutrophils % 93 % Lymphocytes % 4 % Monocytes % 2 % Eosinophils % 0 % Basophils % 0 % Neutrophils # 13.3 H (1.3-7.7) k/uL Lymphocytes # 0.6 L (1.0-4.8) k/uL Monocytes # 0.3 (0-1.0) k/uL Eosinophils # 0.0 (0-0.7) k/uL Basophils # 0.0 (0-0.2) k/uL PT (9.0-12.0) sec INR (<1.2) Sodium 137 (137-145) mmol/L Potassium 4.9 (3.5-5.1) mmol/L Chloride 103 (98-107) mmol/L Carbon Dioxide 25 (22-30) mmol/L Anion Gap 9 mmol/L BUN 22 H (9-20) mg/dL Creatinine 2.00 H (0.66-1.25) mg/dL Est GFR (CKD-EPI)AfAm 38 (>60 ml/min/1.73 sqM) Est GFR (CKD-EPI)NonAf 33 (>60 ml/min/1.73 sqM) Glucose 263 H (74-99) mg/dL Calcium 9.3 (8.4-10.2) mg/dL Magnesium 2.1 (1.6-2.3) mg/dL Total Bilirubin 0.3 (0.2-1.3) mg/dL AST 21 (17-59) U/L ALT 25 (21-72) U/L Alkaline Phosphatase 95 (38-126) U/L Troponin I (0.000-0.034) ng/mL NT-Pro-B Natriuret Pep 2730 pg/mL Total Protein 6.5 (6.3-8.2) g/dL Albumin 3.5 (3.5-5.0) g/dL Lipase 76 (23-300) U/L 05/24/18 05/24/18 Range/Units 20:15 20:15 WBC (3.8-10.6) k/uL RBC (4.30-5.90) m/uL Hgb (13.0-17.5) gm/dL Hct (39.0-53.0) % MCV (80.0-100.0) fL MCH (25.0-35.0) pg MCHC (31.0-37.0) g/dL RDW (11.5-15.5) % Plt Count (150-450) k/uL Neutrophils % % Lymphocytes % % Monocytes % % Eosinophils % % Basophils % % Neutrophils # (1.3-7.7) k/uL Lymphocytes # (1.0-4.8) k/uL Monocytes # (0-1.0) k/uL Eosinophils # (0-0.7) k/uL Basophils # (0-0.2) k/uL PT 9.5 (9.0-12.0) sec INR 1.0 (<1.2) Sodium (137-145) mmol/L Potassium (3.5-5.1) mmol/L Chloride (98-107) mmol/L Carbon Dioxide (22-30) mmol/L Anion Gap mmol/L BUN (9-20) mg/dL Creatinine (0.66-1.25) mg/dL Est GFR (CKD-EPI)AfAm (>60 ml/min/1.73 sqM) Est GFR (CKD-EPI)NonAf (>60 ml/min/1.73 sqM) Glucose (74-99) mg/dL Calcium (8.4-10.2) mg/dL Magnesium (1.6-2.3) mg/dL Total Bilirubin (0.2-1.3) mg/dL AST (17-59) U/L ALT (21-72) U/L Alkaline Phosphatase (38-126) U/L Troponin I <0.012 (0.000-0.034) ng/mL NT-Pro-B Natriuret Pep pg/mL Total Protein (6.3-8.2) g/dL Albumin (3.5-5.0) g/dL Lipase (23-300) U/L Disposition Clinical Impression: Intractable abdominal pain, Ileus Disposition: ADMITTED IP TO THIS HOSP Condition: Fair Is patient prescribed a controlled substance at d/c from ED?: No Referrals: [facility],Clinic [Primary Care Provider] - 1-2 days Decision to Admit Reason: Admit from EC - Out of Hospital Transfer - Req. Specs Out of Hospital Transfer - Requested Specifics: Other Non-Acute
[2018-05-24 20:36] LABS: Basophils % (A) 0 %; Eosinophils % (A) 0 %; HCT 37.5 % (39.0-53.0); HGB 12.3 gm/dL (13.0-17.5); Lymphocytes # (A) 0.6 k/uL (1.0-4.8); Lymphocytes % (A) 4 %; MCH 31.5 pg (25.0-35.0); MCHC 32.9 g/dL (31.0-37.0); MCV 95.9 fL (80.0-100.0); Mean Platelet Volume 8.8; Monocytes # (A) 0.3 k/uL (0-1.0); Monocytes % (A) 2 %; Neutrophils # (A) 13.3 k/uL (1.3-7.7); Neutrophils % (A) 93 %; Platelet Count 228 k/uL (150-450); RBC 3.91 m/uL (4.30-5.90); WBC 14.3 k/uL (3.8-10.6)
[2018-05-24 20:46] LABS: Prothrombin Time 9.5 sec (9.0-12.0)
[2018-05-24 20:47] LABS: Albumin 3.5 g/dL (3.5-5.0); Calcium 9.3 mg/dL (8.4-10.2); Magnesium 2.1 mg/dL (1.6-2.3); Potassium 4.9 mmol/L (3.5-5.1); Total Bilirubin 0.3 mg/dL (0.2-1.3); Total Protein 6.5 g/dL (6.3-8.2)
--- NOTE | 2018-05-24 21:12 | XR ---
EXAMINATION TYPE: XR abdomen acute w cxr DATE OF EXAM: 05/24/2018 COMPARISON: Chest radiograph dated 03/04/2018 HISTORY: Abdominal and chest pain. TECHNIQUE: Single view chest radiograph and 2 view abdominal radiographs were obtained. FINDINGS: Large body habitus partially obscures visualization of the abdomen. No gross evidence of pn eumoperitoneum is seen. Mildly dilated air-filled loop of small bowel within the left mid abdomen and lower quadrant measures up to 4 cm. No dilated loops of large bowel. Cholecystectomy clips are noted . Phleboliths are seen within the pelvis. Mild degenerative change of the lumbosacral junction and fe moral acetabular joints. No focal consolidation, pleural effusion or pneumothorax. Cardiomediastinal is mildly enlarged. [place] us structures appear intact. IMPRESSION: Mildly dilated loop of small bowel within the left mid abdomen suggesting ileus. No acute cardiopulmo nary process.
--- NOTE | 2018-05-24 23:06 | CT ---
EXAMINATION TYPE: CT abdomen pelvis wo con DATE OF EXAM: 05/24/2018 COMPARISON: 08/01/2012 HISTORY: Abd pain, vomiting, diarrhea CT DLP: 590.90 mGycm Automated exposure control for dose reduction was used. TECHNIQUE: Helical acquisition of images was performed from the lung bases through the pelvis. FINDINGS: There is some coarse interstitial infiltrate in the lower lobes. Heart size is normal. There is small hiatal hernia. The remainder of the stomach appears normal. There are clips from cholecystectomy. Li osiel spleen pancreas appear normal. Bile ducts are not dilated. There is no adrenal mass. Kidneys have normal size and contour. There are multiple bilateral small re nal calcifications that measure up to 7 mm. There is no hydronephrosis. Ureters are not dilated. Abdo tessa aorta is atheromatous. There is no retroperitoneal adenopathy. There is no mesenteric adenopath y or edema. I see no intestinal wall thickening. There are no dilated loops. There are multiple colon ic diverticula on the left side. The appendix is not definitely seen. There is no sign of appendiciti s. Bladder distends smoothly. There is no sign of free air. There is no inguinal hernia. I see no pel vane mass. Lumbar spine is intact. I see no bony destructive process. There is narrowing of L5-S1 disc space with vacuum disc and spur formation. There is a rounded 1 cm subcutaneous mass over the anterior upper abdomen. This could be a sebaceous cyst and is unchanged. IMPRESSION: MULTIPLE NONOBSTRUCTING RENAL CALCULI. AXILLAE APPEAR INCREASED COMPARED TO OLD EXAM. THERE IS CLEARI NG OF THE DILATED SMALL BOWEL COMPARED TO OLD EXAM. MILD FIBROTIC CHANGES AT THE LUNG BASES UNCHANGED .
[2018-05-24] MEDS: SODIUM CHLORIDE 0.9% 1,000 ML IV SCH (23:46)
[2018-05-25] MEDS ORDERED: NALOXONE 0.4 MG/ML 1 ML VIAL IV PRN (00:43)
[2018-05-25] MEDS ORDERED: ONDANSETRON 4 MG/2 ML VIAL IVP PRN (00:43)
[2018-05-25] MEDS ORDERED: MORPHINE SULFATE 4 MG/ML SYRINGE IV PRN (00:43)
[2018-05-25] MEDS ORDERED: METOPROLOL TARTRATE 5 MG/5 ML VIAL IVP ONE (00:47)
[2018-05-25] MEDS ORDERED: glipiZIDE 5 MG TAB PO SCH (07:30)
[2018-05-25 07:53] LABS: Glucose,Whole Blood 177 mg/dL (75-99)
[2018-05-25] MEDS ORDERED: GABAPENTIN 300 MG CAP PO SCH (09:00)
[2018-05-25] MEDS ORDERED: NON-FORMULARY DRUG (Aspirin Ec 81 MG) PO SCH (09:00)
[2018-05-25] MEDS ORDERED: METOPROLOL TARTRATE 25 MG TAB PO SCH (09:00)
[2018-05-25] MEDS ORDERED: ISOSORBIDE MONONITRATE ER 60 MG TAB.ER.24H PO SCH (09:00)
[2018-05-25] MEDS ORDERED: CYANOCOBALAMIN 500 MCG TAB PO SCH (09:00)
[2018-05-25] MEDS: CYANOCOBALAMIN 500 MCG TAB PO SCH (09:15)
[2018-05-25] MEDS: METOPROLOL TARTRATE 25 MG TAB PO SCH ×2 (09:15→20:33)
[2018-05-25] MEDS: glipiZIDE 5 MG TAB PO SCH ×3 (09:16→17:04)
[2018-05-25] MEDS: ISOSORBIDE MONONITRATE ER 60 MG TAB.ER.24H PO SCH (09:16)
[2018-05-25] MEDS: ASPIRIN 81 MG PO SCH (09:16)
[2018-05-25] MEDS: GABAPENTIN 300 MG CAP PO SCH ×3 (09:16→21:26)
[2018-05-25] MEDS: SODIUM CHLORIDE 0.9% 1,000 ML IV SCH ×2 (09:19→19:37)
--- NOTE | 2018-05-25 11:24 | P.GSCN ---
History of Present Illness Consult date: 05/25/18 History of present illness: 68-year-old male presents to the emergency department with complaints of some abdominal discomfort. Since his admission, he states his abdominal pain has resolved. Prior to his arrival to the emergency department he states that he was having nausea and dry heaves along with abdominal pain. He states that he continues to have flatus and is having bowel function. He states he is unsure if he has ever had this previously. On workup in the emergency department, there was concern for ileus on abdominal x-ray. CT of the abdomen and pelvis showed a resolution of dilated small bowel loops. Currently, the patient states he no longer feels nauseous and his abdominal pain has been relieved. He does state that he is hungry. The patient also was found to have a leukocytosis with no clear infectious source. CT of the abdomen and pelvis did also reveal nephrolithiasis. He denies any previous history of nephrolithiasis. Review of Systems All systems: negative Past Medical History Past Medical History: Coronary Artery Disease (CAD), Chest Pain / Angina, Diabetes Mellitus, GERD/Reflux, GI Bleed, Hyperlipidemia, Hypertension, Vascular Disorder Additional Past Medical History / Comment(s): Insomnia, abdominal distention that comes and goes, epistaxis, lower GI bleed, benign colon polyp, IDDM type II , low back pain with bilateral sciatica/neuropathy, DJD, past partial SBO treated conservatively, carotid disease, possible chronic kidney disease History of Any Multi-Drug Resistant Organisms: None Reported Past Surgical History: Cholecystectomy, Heart Catheterization Additional Past Surgical History / Comment(s): [facility] [place] [facility] Past Anesthesia/Blood Transfusion Reactions: No Reported Reaction Past Psychological History: No Psychological Hx Reported Additional Psychological History / Comment(s): Pt resides with his spouse and their 2 dogs. Pt uses a cane to ambulate. He has a mobility scooter which he uses prn. He does not drive, his spouse drives. Smoking Status: Current every day smoker Past Alcohol Use History: None Reported Additional Past Alcohol Use History / Comment(s): Pt started smoking in 1966 and is a 1-2 ppd smoker. Past Drug Use History: None Reported, Marijuana Additional Drug Use History / Comment(s): Pt states he takes a couple puffs from a marijuana joint occasionally - Past Family History Father History Unknown: Yes Family Medical History: Unable to Obtain Mother Family Medical History: Cancer Additional Family Medical History / Comment(s): Mother from metastatic cancer pelvic origin Medications and Allergies Home Medications Medication Instructions Recorded Confirmed Type Cyanocobalamin [Vitamin B-12] 500 mcg PO DAILY 07/18/17 03/04/18 History Ergocalciferol (Vitamin D2) 50,000 unit PO Q14D 07/18/17 03/04/18 History [Vitamin D2] Metoprolol Tartrate [Lopressor] 12.5 mg PO BID 07/18/17 05/25/18 History Ranitidine HCl [Zantac] 150 mg PO BID 07/18/17 03/04/18 History Simvastatin [Zocor] 40 mg PO HS 07/18/17 05/25/18 History traMADol HCL [Ultram] 100 mg PO BID 07/18/17 03/04/18 History Aspirin EC [Ecotrin Low Dose] 81 mg PO DAILY 02/10/18 03/04/18 History Ferrous Sulfate [Iron (65 MG 325 mg PO TID 02/10/18 03/04/18 History Elemental)] Gabapentin [Neurontin] 300 mg PO TID #0 02/13/18 03/04/18 Rx Insulin Glargine [Lantus] 20 unit SQ HS #0 02/13/18 03/04/18 Rx Isosorbide Mononitrate ER [Imdur] 60 mg PO DAILY 03/04/18 05/25/18 History Sennosides [Senna] 17.2 mg PO TID PRN 03/04/18 03/04/18 History glipiZIDE [Glucotrol] 5 mg PO AC-TID 03/04/18 03/04/18 History Allergies Allergy/AdvReac Type Severity Reaction Status Date / Time No Known Allergies Allergy Verified 05/24/18 18:46 Surgical - Exam Osteopathic Statement: *. No significant issues noted on an osteopathic structural exam other than those noted in the History and Physical/Consult. Vital Signs Temp Pulse Resp Pulse Ox 98.5 F 85 20 99 05/24/18 18:43 05/24/18 18:43 05/24/18 18:43 05/24/18 18:43 - General well nourished, no distress - Eyes normal ocular movement - ENT no hearing loss - Neck trachea midline - Respiratory No difficulty with respiration - Abdomen Soft, nontender, nondistended, no rebound, no guarding - Neurologic normal sensation - Psychiatric oriented to time, oriented to person, oriented to place, speech is normal Results - Labs 05/24/18 20:15 05/24/18 20:15 Abnormal Lab Results - Last 24 Hours (Table) 05/24/18 05/24/18 05/25/18 Range/Units 20:15 20:15 07:52 WBC 14.3 H (3.8-10.6) k/uL RBC 3.91 L (4.30-5.90) m/uL Hgb 12.3 L (13.0-17.5) gm/dL Hct 37.5 L (39.0-53.0) % Neutrophils # 13.3 H (1.3-7.7) k/uL Lymphocytes # 0.6 L (1.0-4.8) k/uL BUN 22 H (9-20) mg/dL Creatinine 2.00 H (0.66-1.25) mg/dL Glucose 263 H (74-99) mg/dL POC Glucose (mg/dL) 177 H (75-99) mg/dL Diabetes panel 05/24/18 Range/Units 20:15 Sodium 137 (137-145) mmol/L Potassium 4.9 (3.5-5.1) mmol/L Chloride 103 (98-107) mmol/L Carbon Dioxide 25 (22-30) mmol/L BUN 22 H (9-20) mg/dL Creatinine 2.00 H (0.66-1.25) mg/dL Glucose 263 H (74-99) mg/dL Calcium 9.3 (8.4-10.2) mg/dL AST 21 (17-59) U/L ALT 25 (21-72) U/L Alkaline Phosphatase 95 (38-126) U/L Total Protein 6.5 (6.3-8.2) g/dL Albumin 3.5 (3.5-5.0) g/dL Calcium panel 05/24/18 Range/Units 20:15 Calcium 9.3 (8.4-10.2) mg/dL Albumin 3.5 (3.5-5.0) g/dL Pituitary panel 05/24/18 Range/Units 20:15 Sodium 137 (137-145) mmol/L Potassium 4.9 (3.5-5.1) mmol/L Chloride 103 (98-107) mmol/L Carbon Dioxide 25 (22-30) mmol/L BUN 22 H (9-20) mg/dL Creatinine 2.00 H (0.66-1.25) mg/dL Glucose 263 H (74-99) mg/dL Calcium 9.3 (8.4-10.2) mg/dL Adrenal panel 05/24/18 Range/Units 20:15 Sodium 137 (137-145) mmol/L Potassium 4.9 (3.5-5.1) mmol/L Chloride 103 (98-107) mmol/L Carbon Dioxide 25 (22-30) mmol/L BUN 22 H (9-20) mg/dL Creatinine 2.00 H (0.66-1.25) mg/dL Glucose 263 H (74-99) mg/dL Calcium 9.3 (8.4-10.2) mg/dL Total Bilirubin 0.3 (0.2-1.3) mg/dL AST 21 (17-59) U/L ALT 25 (21-72) U/L Alkaline Phosphatase 95 (38-126) U/L Total Protein 6.5 (6.3-8.2) g/dL Albumin 3.5 (3.5-5.0) g/dL - Imaging Abdominal x-ray: report reviewed, image reviewed CT scan - abdomen: report reviewed, image reviewed CT scan - pelvis: report reviewed, image reviewed Assessment and Plan (1) Ileus Narrative/Plan: 68-year-old male with ileus - The ileus appears to be resolving, the patient is having flatus and is denying any abdominal pain at this time - Will begin clear liquid diet - Source of ileus is currently unclear, the patient does have a leukocytosis. Due to nephrolithiasis discovered on CT of the abdomen and pelvis, we will obtain a urinalysis. - Medical management Thank you for this consultation, I look forward in providing in this patient's care Current Visit: Yes Status: Acute Code(s): K56.7 - ILEUS, UNSPECIFIED SNOMED Code(s): 826806118
[2018-05-25 11:45] LABS: Glucose,Whole Blood 135 mg/dL (75-99)
[2018-05-25] MEDS ORDERED: TEMAZEPAM 15 MG CAP PO PRN (15:04)
[2018-05-25] MEDS ORDERED: ALPRAZolam 0.25 MG TAB PO PRN (15:04)
[2018-05-25] MEDS ORDERED: ACETAMINOPHEN TAB 500 MG TAB PO PRN (15:04)
[2018-05-25 15:18] LABS: Amorphous Sediment,Urine Rare /hpf; Appearance,Urine Clear (Clear); Bilirubin,Urine Negative (Negative); Blood,Urine Moderate (Negative); Color,Urine Light Yellow; Glucose,Urine (UA) Negative (Negative); Hyaline Casts,Urine 5 /lpf (0-2); Ketones,Urine Negative (Negative); Leukocyte Esterase,Urine Negative (Negative); Mucus,Urine Rare /hpf; Nitrite,Urine Negative (Negative); Protein,Urine 3+ (Negative); RBC,Urine 5 /hpf (0-5); Squamous Epithelial Cell,Urine 1 /hpf (0-4); Urobilinogen,Urine <2.0 mg/dL (<2.0); WBC,Urine 2 /hpf (0-5)
--- NOTE | 2018-05-25 17:22 | HP ---
HISTORY AND PHYSICAL DATE OF SERVICE: 05/25/2018 CHIEF COMPLAINT: Abdominal pain, nausea, vomiting. HISTORY OF PRESENT ILLNESS: This 68-year-old gentleman with a past medical history of CAD, history of diabetes, GERD, hypertension, hyperlipidemia, history of cholecystectomy history of carotid stent in [place], being followed by Dr. Myles in [facility] in the outpatient setting complaining of abdominal pain, distention and some episodes, nausea, vomiting. Abdomen felt bloated. Patient came to [facility]. CT scan showed evidence of ileus. Surgical evaluation in progress. There is no history of fever, rigors. No history of headache, loss of consciousness, seizures. Patient also had history of iron deficiency anemia previously. A 2D echo with Doppler done a couple of months ago showed ejection fraction 55-60 percent. There is no history of fever, rigors. No history of headache, loss of consciousness or seizures. [id number] regurgitation was noted. PAST MEDICAL HISTORY: History of CAD, history of chest pain, history of diabetes type 2, history of GERD, GI bleed, hypertension, hyperlipidemia. MEDICATIONS: Prior to admission home medications are: 1. Ultram 100 mg p.o. b.i.d. 2. Glucotrol 5 mg p.o. b.i.d. 3. Zocor 40 mg q.h.s. 4. Senna 17.2 t.i.d. p.r.n. 5. Zantac 150 mg p.o. b.i.d. 6. Lopressor 12.5 mg b.i.d. 7. Imdur 60 mg p.o. daily. 8. Lantus 20 units subcu q.h.s. 9. Neurontin 300 mg p.o. t.i.d. 10.Iron 320 mg p.o. t.i.d. 11.Vitamin D2 50,000 every 14 days. 13.Ecotrin 81 mg daily. 14.Vitamin C 1000 mg p.o. daily. ALLERGIES: None. FAMILY HISTORY: Mother of metastatic cancer origin. SOCIAL HISTORY: History of smoking, history of THC. REVIEW OF SYSTEMS: ENT: Diminished hearing and diminished vision. CARDIOVASCULAR: No angina or palpitations. RESPIRATORY: As mentioned earlier. GI no nausea or vomiting. no dysuria. Nervous system: No numbness, weakness. Allergy/Immunology: No asthma or hayfever. MUSCULOSKELETAL as mentioned earlier. Hematology/Oncology: As mentioned earlier. Endocrine: As mentioned earlier. Constitutional: As mentioned earlier. Dermatology: Negative. Rheumatology: Negative. Psychiatry: As mentioned earlier. PHYSICAL EXAMINATION: Alert, oriented x3. Pulse 72. Blood pressure 155/56, respiration 18, temp 98.4 , pulse ox 94% on room air. HEENT: Conjunctivae normal. Oral mucosa moist. Neck is no jugular venous distention. No carotid bruit. No lymph node enlargement. Cardiovascular: S1, S2. Respirations: Breath sounds diminished in the bases. A few scattered rhonchi and crackles. ABDOMEN: Soft, mild diffuse distention. Nontender. No guarding. No rigidity. No mass palpable. Bowel sounds present. No ascites. Legs no edema. No swelling. NERVOUS SYSTEM: Higher functions as mentioned earlier. Moves all 4 limbs. No focal motor or sensory deficits. Lymphatics: No lymph nodes palpable in the neck, axillae or groin. SKIN: No ulcer, rash or bleeding. Joints: No active deforming arthropathy. LABS: WBC 14.2, hemoglobin 12.3. Creatinine is 2. ASSESSMENT: 1. Abdominal pain and distention, possibly ileus of undetermined etiology. 2. Increased creatinine with acute on chronic renal failure, stage III. 3. Increased WBC. 4. History of anemia, iron deficiency undetermined etiology. 5. History of coronary artery disease. 6. History of cholecystectomy. 7. History of diabetes type 2. 8. Gastroesophageal reflux disease. 9. History of gastrointestinal bleed. 10.Hypertension. 11.Hyperlipidemia. 12.History of insomnia. 13.History of epistaxis. 14.History of bilateral sciatica neuropathy. 15.History of partial small bowel obstruction, previously. 16.History of carotid stenting in [place]. 17.History of nicotine dependence. 18.History of THC. RECOMMENDATIONS AND DISCUSSION: In this 68-year-old gentleman who presented with multiple complex medical issues , we will monitor the patient closely. Continue the current medications, management and symptomatic treatment. Proton pump inhibitors. I would recommend continue with symptomatic treatment and clear liquids as arranged per surgery. Repeat labs. There is no evidence of any significant infection currently. The abdominal and pelvis CAT scan, as mentioned earlier, showed nonobstructive ileus type of pattern. I would also recommend a chest x-ray and continue to monitor. Cultures also will be obtained. Prognosis guarded because of multiple complex medical issues. Further recommendations to follow. A copy of dictation forwarded to Dr. Myles who is the primary physician. MMYOJANAL / EMILYN: [id number] / MTDD
[2018-05-25] MEDS: INSULIN ASPART 100 UNIT/ML 1 ML 10 ML VIAL SQ SCH ×2 (17:49→20:35)
[2018-05-25 17:54] LABS: Glucose,Whole Blood 139 mg/dL (75-99)
[2018-05-25 19:56] LABS: Glucose,Whole Blood 125 mg/dL (75-99)
[2018-05-25] MEDS: ATORVASTATIN 20 MG TAB PO SCH (20:33)
[2018-05-25] MEDS: INSULIN DETEMIR 100 UNIT/ML 10 ML VIAL SQ SCH (20:34)
[2018-05-25] MEDS: HEPARIN SODIUM,PORCINE 5,000 UNIT/ML 1 ML VIAL SQ SCH (20:35)
[2018-05-25] MEDS: PANTOPRAZOLE 40 MG/10 ML VIAL IVP SCH (20:35)
[2018-05-25] MEDS ORDERED: NON-FORMULARY DRUG (Simvastatin [Zocor] 40 MG) PO SCH (21:00)
[2018-05-25] MEDS ORDERED: NON-FORMULARY DRUG (Insulin Glargine 20 UNIT) SQ SCH (21:00)
[2018-05-25] MEDS: traMADol 50 MG TAB PO SCH (21:26)
[2018-05-25] MEDS: ONDANSETRON 4 MG/2 ML VIAL IVP PRN (21:27)
[2018-05-25] MEDS: HYDROmorphone 1 MG/ML 1 ML SYRINGE IVP PRN (22:46)
[2018-05-26] MEDS: SODIUM CHLORIDE 0.9% 1,000 ML IV SCH ×3 (05:48→19:32)
[2018-05-26 07:01] LABS: Glucose,Whole Blood 71 mg/dL (75-99)
--- NOTE | 2018-05-26 08:33 | P.PN ---
Subjective Progress Note Date: 05/26/18 Patient seen and examined at bedside. States that he feels back to normal and has no abdominal pain. He is having flatus. He denies any nausea vomiting. Objective - Vital Signs Vital signs: Vital Signs Temp 98.5 F 05/26/18 05:00 Pulse 67 05/26/18 05:00 Resp 16 05/26/18 05:00 BP 153/80 05/26/18 05:00 Pulse Ox 98 05/26/18 05:00 Intake & Output 05/25/18 05/26/18 05/26/18 18:59 06:59 18:59 Intake Total 1200 900 Balance 1200 900 Intake: Intake, IV Titration 800 900 Amount Sodium Chloride 0.9% 1, 800 900 000 ml @ 100 mls/hr IV . Q10H [facility] Rx#:[id number] Oral 400 0 Other: Voiding Method Toilet Toilet # Voids 1 1 - Constitutional General appearance: Present: cooperative, no acute distress - Respiratory Details: No difficulty with respiration - Gastrointestinal Gastrointestinal Comment(s): Soft, nontender, nondistended, no rebound, no guarding - Psychiatric Psychiatric: Present: A&O x's 3 - Labs CBC & Chem 7: 05/24/18 20:15 05/24/18 20:15 Labs: Abnormal Lab Results - Last 24 Hours (Table) 05/25/18 05/25/18 05/25/18 Range/Units 11:43 15:00 17:53 POC Glucose (mg/dL) 135 H 139 H (75-99) mg/dL Urine Protein 3+ H (Negative) Urine Blood Moderate H (Negative) Amorphous Sediment Rare H (None) /hpf Hyaline Casts 5 H (0-2) /lpf Urine Mucus Rare H (None) /hpf 05/25/18 05/26/18 Range/Units 19:55 07:00 POC Glucose (mg/dL) 125 H 71 L (75-99) mg/dL Urine Protein (Negative) Urine Blood (Negative) Amorphous Sediment (None) /hpf Hyaline Casts (0-2) /lpf Urine Mucus (None) /hpf Microbiology - Last 24 Hours (Table) 05/25/18 14:50 Urine Culture - Preliminary Urine,Clean Catch Assessment and Plan (1) Ileus Narrative/Plan: 68-year-old male with ileus - The ileus appears to be resolving, the patient is having flatus and is denying any abdominal pain at this time - Advance to regular diet - Urinalysis did show hematuria, I do recommend correlating with nephrolithiasis and treatment per admitting team - No plan for acute surgical intervention Current Visit: Yes Status: Acute Code(s): K56.7 - ILEUS, UNSPECIFIED SNOMED Code(s): 756309679
[2018-05-26] MEDS ORDERED: CYANOCOBALAMIN 100 MCG PO SCH (09:00)
[2018-05-26] MEDS: INSULIN ASPART 100 UNIT/ML 1 ML 10 ML VIAL SQ SCH ×4 (09:26→20:27)
[2018-05-26] MEDS: glipiZIDE 5 MG TAB PO SCH ×3 (09:35→17:49)
[2018-05-26] MEDS: METOPROLOL TARTRATE 25 MG TAB PO SCH ×2 (09:35→20:35)
[2018-05-26] MEDS: PANTOPRAZOLE 40 MG/10 ML VIAL IVP SCH ×2 (09:35→20:36)
[2018-05-26] MEDS: GABAPENTIN 300 MG CAP PO SCH ×3 (09:35→20:35)
[2018-05-26] MEDS: ASCORBIC ACID 500 MG TAB PO SCH (09:35)
[2018-05-26] MEDS: HEPARIN SODIUM,PORCINE 5,000 UNIT/ML 1 ML VIAL SQ SCH ×2 (09:36→20:37)
[2018-05-26] MEDS: ISOSORBIDE MONONITRATE ER 60 MG TAB.ER.24H PO SCH (09:36)
[2018-05-26] MEDS: CYANOCOBALAMIN 500 MCG TAB PO SCH (09:36)
[2018-05-26] MEDS: ASPIRIN 81 MG PO SCH (09:36)
[2018-05-26] MEDS: traMADol 50 MG TAB PO SCH ×2 (09:38→20:36)
[2018-05-26 10:25] LABS: Basophils % (A) 0 %; Eosinophils # (A) 0.1 k/uL (0-0.7); Eosinophils % (A) 1 %; HCT 32.6 % (39.0-53.0); HGB 10.6 gm/dL (13.0-17.5); Lymphocytes # (A) 1.1 k/uL (1.0-4.8); Lymphocytes % (A) 8 %; MCH 31.1 pg (25.0-35.0); MCHC 32.6 g/dL (31.0-37.0); MCV 95.4 fL (80.0-100.0); Mean Platelet Volume 8.1; Monocytes # (A) 0.8 k/uL (0-1.0); Monocytes % (A) 6 %; Neutrophils # (A) 11.1 k/uL (1.3-7.7); Neutrophils % (A) 84 %; Platelet Count 213 k/uL (150-450); RBC 3.42 m/uL (4.30-5.90); RDW 14.2 % (11.5-15.5); WBC 13.1 k/uL (3.8-10.6)
[2018-05-26 10:56] LABS: Albumin 2.8 g/dL (3.5-5.0); Calcium 8.5 mg/dL (8.4-10.2); Potassium 4.3 mmol/L (3.5-5.1); Total Bilirubin 0.2 mg/dL (0.2-1.3); Total Protein 5.5 g/dL (6.3-8.2)
[2018-05-26 11:22] LABS: Glucose,Whole Blood 177 mg/dL (75-99)
[2018-05-26 11:57] LABS: Hemoglobin A1C 8.1 % (4.0-6.0)
[2018-05-26 14:33] VITALS: BMI 28.1
[2018-05-26] MEDS: ONDANSETRON 4 MG/2 ML VIAL IVP PRN ×2 (15:46→20:39)
--- NOTE | 2018-05-26 15:53 | PN ---
PROGRESS NOTE DATE OF SERVICE: 05/26/2018 This 68-year-old gentleman who was admitted with abdominal pain and distention had a possible ileus. The patient being closely monitored. Surgery has advanced the diet. No chest pain. No palpitations. No fever. On exam, alert and oriented x3. Pulse 67, blood pressure 153/80, respirations 16, temperature 98.4, pulse ox 98% on room air. HEENT: Conjunctivae normal. Oral mucosa moist. NECK: No jugular venous distention. No carotid bruit. No lymph node enlargement. CARDIOVASCULAR SYSTEM: S1, S2 muffled. RESPIRATORY SYSTEM: Breath sounds diminished at the bases. No rhonchi. No crackles. ABDOMEN: Soft. Non-tender. No mass palpable. LEGS: No edema. No swelling. NERVOUS SYSTEM: No focal deficit. Labs are WBC 13.1, hemoglobin 10.6, and INR is 1.98. ASSESSMENT: 1. Abdominal pain and distention, possible ileus, of undetermined etiology. 2. Increased creatinine with acute on chronic renal failure, stage III. 3. Increased white count. 4. History of anemia; iron deficiency anemia of undetermined etiology. 5. Possible urinary tract infection. 6. History of coronary artery disease. 7. History of cholecystectomy. 8. History of diabetes mellitus, type 2. 9. Gastroesophageal reflux disease. 10.History of gastrointestinal bleed. 11.Hypertension. 12.Hyperlipidemia. 13.Insomnia. 14.History of epistaxis. 15.History of bilateral sciatica neuropathy. 16.History of partial small bowel obstruction. 17.History of carotid stenting in [place]. 18.History of nicotine dependence. 19.History of tetrahydrocannabinol. RECOMMENDATIONS AND DISCUSSION: I recommend to continue current medication, continue with the monitoring, symptomatic treatment. I would also recommend a short course of antibiotics, cultures. Otherwise, we will monitor the patient closely. Guarded prognosis because of multiple complex medical issues. Further recommendations to follow. MMODL / IJN: [id number] /
[2018-05-26 16:45] LABS: Glucose,Whole Blood 95 mg/dL (75-99)
[2018-05-26] MEDS: HYDROmorphone 1 MG/ML 1 ML SYRINGE IVP PRN (19:32)
[2018-05-26 20:01] LABS: Glucose,Whole Blood 123 mg/dL (75-99)
[2018-05-26] MEDS: INSULIN DETEMIR 100 UNIT/ML 10 ML VIAL SQ SCH (20:38)
[2018-05-26] MEDS: ATORVASTATIN 20 MG TAB PO SCH (20:38)
[2018-05-26 22:27] VITALS: RESP 16
[2018-05-27] MEDS: SODIUM CHLORIDE 0.9% 1,000 ML IV SCH ×2 (03:47→12:11)
[2018-05-27 06:54] LABS: Glucose,Whole Blood 133 mg/dL (75-99)
[2018-05-27] MEDS: PANTOPRAZOLE 40 MG/10 ML VIAL IVP SCH (08:54)
[2018-05-27] MEDS: INSULIN ASPART 100 UNIT/ML 1 ML 10 ML VIAL SQ SCH ×2 (08:54→12:12)
[2018-05-27] MEDS: ASCORBIC ACID 500 MG TAB PO SCH (08:57)
[2018-05-27] MEDS: ISOSORBIDE MONONITRATE ER 60 MG TAB.ER.24H PO SCH (08:58)
[2018-05-27] MEDS: glipiZIDE 5 MG TAB PO SCH ×2 (08:58→12:18)
[2018-05-27] MEDS: CYANOCOBALAMIN 500 MCG TAB PO SCH (08:58)
[2018-05-27] MEDS: HEPARIN SODIUM,PORCINE 5,000 UNIT/ML 1 ML VIAL SQ SCH (08:58)
[2018-05-27] MEDS: ASPIRIN 81 MG PO SCH (08:59)
[2018-05-27] MEDS: GABAPENTIN 300 MG CAP PO SCH (08:59)
[2018-05-27] MEDS: METOPROLOL TARTRATE 25 MG TAB PO SCH (09:00)
[2018-05-27] MEDS: traMADol 50 MG TAB PO SCH (09:01)
[2018-05-27 09:29] LABS: ALT 21 U/L (21-72); AST 21 U/L (17-59); Albumin 2.3 g/dL (3.5-5.0); Alkaline Phosphatase 59 U/L (38-126); Anion Gap 3 mmol/L; Blood Urea Nitrogen 26 mg/dL (9-20); Calcium 7.8 mg/dL (8.4-10.2); Carbon Dioxide 20 mmol/L (22-30); Chloride 115 mmol/L (98-107); Glucose 164 mg/dL (74-99); Potassium 4.3 mmol/L (3.5-5.1); Sodium 138 mmol/L (137-145); Total Bilirubin <0.1 mg/dL (0.2-1.3); Total Protein 4.8 g/dL (6.3-8.2)
[2018-05-27 11:16] LABS: Glucose,Whole Blood 109 mg/dL (75-99)
[2018-05-27 11:54] VITALS: BP 183/77; PULSE 63; TEMP 98.7
--- NOTE | 2018-05-27 12:15 | DS ---
DISCHARGE SUMMARY FINAL DIAGNOSES: 1. Abdominal pain and distention, possible ileus, undetermined etiology, improved. 2. Increased creatinine with acute on chronic renal failure stage III. 3. Urinary tract infection, present on admission. 4. Increased WBC. 5. History of anemia; iron deficiency anemia of undetermined etiology. 6. History of coronary artery disease. 7. History of cholecystectomy. 8. History of diabetes mellitus type 2. 9. Gastroesophageal reflux disease. 10.History of gastrointestinal bleed. 11.Hypertension. 12.Hyperlipidemia. 13.Insomnia. 14.History of epistaxis. 15.History of bilateral sciatica neuropathy. 16.History of partial small bowel obstruction. 17.History of carotid stenting in [place]. 18.History of nicotine dependence. 19.History of THC. DISCHARGE DISPOSITION: The patient will be discharged in stable condition with guarded prognosis. HISTORY OF PRESENT ILLNESS: This 68-year-old gentleman with a past medical history of multiple medical problems was admitted with abdominal pain, distention with possible ileus. The patient was treated symptomatically. Surgery saw the patient. Patient improved significantly. Patient also had UTI and chronic renal failure also. Surgery also recommended Urology as an outpatient. On exam, vitals are stable. CARDIOVASCULAR: S1, S2 muffled. ABDOMEN: Soft. NERVOUS SYSTEM: No focal deficits. DISCHARGE ADVICE AND MEDICATIONS: 1. Diet is cardiac: 2. Activity limited until followup. 3. Follow up with [facility] in 2 to 3 days. 4. Follow up with Urology and Surgery as advised. Medications are: 1. Vitamin C 1000 mg p.o. daily. 2. Ecotrin 81 mg p.o. daily. 3. Cyanocobalamin 100 mcg 1 p.o. daily. 4. Vitamin D2, 50,000. 5. Iron sulfate 325 mg p.o. t.i.d. 6. Glucotrol 5 mg p.o. b.i.d. 7. Imdur ER 60 mg p.o. daily. 8. Lopressor 12.5 mg p.o. b.i.d. 9. Zantac 150 mg p.o. b.i.d. 10.Senna 17.2 mg p.o. t.i.d. 11.Zocor 40 mg q.h.s. 12.Ultram 100 mg p.o. b.i.d. 13.Ceftin 500 mg p.o. b.i.d. for 3 days. 14.Neurontin 300 mg p.o. t.i.d. 15.Lantus 20 units subcu q.h.s. BESSY / EMILYN: [id number] / MTDD
[2018-05-29] MEDS ORDERED: ERGOCALCIFEROL 50,000 UNIT CAP PO SCH (09:00)
== END 2018-05-27 15:05 | disposition home or self-care (01) | DRG 389 ==
LOC: EC 18:27 → 5MS5E 05-25 00:43 → EC 05-25 01:44
PROVIDERS: ADMIT Hospitalist; ATTEND Hospitalist
DX: K56.7 Ileus, unspecified (principal); N17.9 Acute kidney failure, unspecified; N39.0 Urinary tract infection, site not specified; E11.22 Type 2 diabetes mellitus with diabetic chronic kidney disease; E78.5 Hyperlipidemia, unspecified; F17.200 Nicotine dependence, unspecified, uncomplicated; G47.00 Insomnia, unspecified; I12.9 Hypertensive chronic kidney disease with stage 1 through stage 4 chronic kidney disease, or unspecified chronic kidney disease; I25.10 Atherosclerotic heart disease of native coronary artery without angina pectoris; K21.9 Gastro-esophageal reflux disease without esophagitis; N18.3 Chronic kidney disease, stage 3 (moderate); N20.0 Calculus of kidney; Z79.4 Long term (current) use of insulin; Z80.9 Family history of malignant neoplasm, unspecified; Z86.010 Personal history of colon polyps; Z90.49 Acquired absence of other specified parts of digestive tract; Z79.82 Long term (current) use of aspirin; Z79.899 Other long term (current) drug therapy; D50.9 Iron deficiency anemia, unspecified
CPT/HCPCS: 36415; 74022; 74176; 80053; 81001; 83036; 83690; 83735; 83880; 84484; 85025; 85610; 86850; 86900; 86901; 87040; 87086; 93005; 96361; 96374; 96375; 96376; 99285

== ENCOUNTER 2018-09-23 10:46 | Inpatient (IN) | payer OTHER, MEDICARE ==
[2018-09-23] MEDS ORDERED: SODIUM CHLORIDE 0.9% 1,000 ML IV STA (14:16)
--- NOTE | 2018-09-23 14:33 | ED ---
General Adult HPI - General Chief complaint: Recheck/Abnormal Lab/Rx Stated complaint: abn labs Time Seen by Provider: 09/23/18 14:02 Source: patient, RN notes reviewed Mode of arrival: wheelchair Limitations: no limitations - History of Present Illness Initial comments: Patient 68-year-old male presenting to the emergency room today with a chief complaint of a abnormal lab. Patient does admit to a history of anemia. He states that he did have blood drawn yesterday [facility] the [facility]. States that he was called late last night and told that his hemoglobin was low. He does admit that he has been more tired. Does admit to some symptoms of feeling dizzy and lightheaded at times. She denies any other complaints or symptoms currently. She does admit to dark bowel movements but states he is taking iron supplement. Patient denies any recent fever, chills, shortness of breath, chest pain, back pain, abdominal pain, nausea or vomiting, numbness or tingling, headaches or visual changes, or any other complaints. - Related Data Home Medications Medication Instructions Recorded Confirmed Ergocalciferol (Vitamin D2) 50,000 unit PO Q14D 07/18/17 05/25/18 [Vitamin D2] Metoprolol Tartrate [Lopressor] 12.5 mg PO BID 07/18/17 05/25/18 Ranitidine HCl [Zantac] 150 mg PO BID 07/18/17 05/25/18 Simvastatin [Zocor] 40 mg PO HS 07/18/17 05/25/18 traMADol HCL [Ultram] 100 mg PO BID 07/18/17 05/25/18 Aspirin EC [Ecotrin Low Dose] 81 mg PO DAILY 02/10/18 05/25/18 Ferrous Sulfate [Iron (65 MG 325 mg PO TID 02/10/18 05/25/18 Elemental)] Isosorbide Mononitrate ER [Imdur] 60 mg PO DAILY 03/04/18 05/25/18 Sennosides [Senna] 17.2 mg PO TID PRN 03/04/18 05/25/18 glipiZIDE [Glucotrol] 5 mg PO BID 03/04/18 05/25/18 Ascorbic Acid [Vitamin C] 1,000 mg PO DAILY 05/25/18 05/25/18 Cyanocobalamin 100mcg 1 tab PO DAILY 05/25/18 05/25/18 Previous Rx's Medication Instructions Recorded Gabapentin [Neurontin] 300 mg PO TID #0 02/13/18 Insulin Glargine [Lantus] 20 unit SQ HS #0 02/13/18 Cefuroxime Axetil [Ceftin] 500 mg PO BID 3 Days #6 tab 05/27/18 Allergies Allergy/AdvReac Type Severity Reaction Status Date / Time No Known Allergies Allergy Verified 09/23/18 11:14 Review of Systems ROS Statement: Those systems with pertinent positive or pertinent negative responses have been documented in the HPI. ROS Other: All systems not noted in ROS Statement are negative. Past Medical History Past Medical History: Coronary Artery Disease (CAD), Chest Pain / Angina, Diabetes Mellitus, GERD/Reflux, GI Bleed, Hyperlipidemia, Hypertension, Vascular Disorder Additional Past Medical History / Comment(s): Insomnia, abdominal distention that comes and goes, epistaxis, lower GI bleed, benign colon polyp, IDDM type II , low back pain with bilateral sciatica/neuropathy, DJD, past partial SBO treated conservatively, carotid disease, possible chronic kidney disease History of Any Multi-Drug Resistant Organisms: None Reported Past Surgical History: Cholecystectomy, Heart Catheterization Additional Past Surgical History / Comment(s): [facility] [place] [facility] Past Anesthesia/Blood Transfusion Reactions: No Reported Reaction Past Psychological History: No Psychological Hx Reported Smoking Status: Current every day smoker Past Alcohol Use History: None Reported Past Drug Use History: Marijuana - Past Family History Father History Unknown: Yes Family Medical History: Unable to Obtain Mother Family Medical History: Cancer Additional Family Medical History / Comment(s): Mother from metastatic cancer pelvic origin General Exam - General Exam Comments Initial Comments: General: The patient is awake and alert, in no distress, Eye: There is normal conjunctiva bilaterally. No signs of icterus. Ears, nose, mouth and throat: There are moist mucous membranes and no oral lesions. Neck: The neck is supple Cardiovascular: There is a regular rate and rhythm. No murmur, rub or gallop is appreciated. Respiratory: Lungs are clear to auscultation, respirations are non-labored, breath sounds are equal. No wheezes, stridor, rales, or rhonchi. Gastrointestinal: Have abdomen soft nontender. Musculoskeletal: Normal ROM, no tenderness. Neurological: A&O x 3. CN II-XII intact, There are no obvious motor or sensory deficits. Coordination appears grossly intact. Speech is normal. Skin: Skin is warm and dry and no rashes or lesions are noted. Patient is pale Psychiatric: Cooperative, appropriate mood & affect, normal judgment. : Normal rectal tone. No bright red blood per rectum. Dark stool. Limitations: no limitations Course Vital Signs 09/23/18 11:12 Temperature 98.6 F Pulse Rate 73 Respiratory 18 Rate Blood Pressure 142/54 O2 Sat by Pulse 99 Oximetry Medical Decision Making - Medical Decision Making Patient reexamined at this time currently resting comfortably. Patient's labs been reviewed does show hemoglobin 7.6. Patient does have history of anemia. Patient stool occult test is positive there was no bright red blood per rectum. Patient will be admitted to the hospital and will have serial CBC. Patient's creatinine mildly elevated for patient to 2.5 as does have history of renal disease. Will be continued on IV fluids. - Lab Data Result diagrams: 09/23/18 14:23 09/23/18 14:23 Lab Results 09/23/18 09/23/18 09/23/18 Range/Units 14:23 14:23 14:23 WBC 8.5 (3.8-10.6) k/uL RBC 2.23 L (4.30-5.90) m/uL Hgb 7.6 L (13.0-17.5) gm/dL Hct 23.1 L (39.0-53.0) % MCV 103.7 H (80.0-100.0) fL MCH 34.1 (25.0-35.0) pg MCHC 32.8 (31.0-37.0) g/dL RDW 15.1 (11.5-15.5) % Plt Count 303 (150-450) k/uL Neutrophils % 78 % Lymphocytes % 14 % Monocytes % 5 % Eosinophils % 2 % Basophils % 0 % Neutrophils # 6.6 (1.3-7.7) k/uL Lymphocytes # 1.2 (1.0-4.8) k/uL Monocytes # 0.4 (0-1.0) k/uL Eosinophils # 0.1 (0-0.7) k/uL Basophils # 0.0 (0-0.2) k/uL Hypochromasia Slight Macrocytosis Moderate PT 9.3 (9.0-12.0) sec INR 0.8 (<1.2) APTT 23.1 (22.0-30.0) sec Sodium 136 L (137-145) mmol/L Potassium 4.7 (3.5-5.1) mmol/L Chloride 105 (98-107) mmol/L Carbon Dioxide 25 (22-30) mmol/L Anion Gap 6 mmol/L BUN 36 H (9-20) mg/dL Creatinine 2.57 H (0.66-1.25) mg/dL Est GFR (CKD-EPI)AfAm 28 (>60 ml/min/1.73 sqM) Est GFR (CKD-EPI)NonAf 24 (>60 ml/min/1.73 sqM) Glucose 334 H (74-99) mg/dL Calcium 8.9 (8.4-10.2) mg/dL Total Bilirubin 0.2 (0.2-1.3) mg/dL AST 12 L (17-59) U/L ALT 19 L (21-72) U/L Alkaline Phosphatase 85 (38-126) U/L Total Protein 5.7 L (6.3-8.2) g/dL Albumin 3.2 L (3.5-5.0) g/dL Stool Occult Blood (Negative) 09/23/18 Range/Units 14:23 WBC (3.8-10.6) k/uL RBC (4.30-5.90) m/uL Hgb (13.0-17.5) gm/dL Hct (39.0-53.0) % MCV (80.0-100.0) fL MCH (25.0-35.0) pg MCHC (31.0-37.0) g/dL RDW (11.5-15.5) % Plt Count (150-450) k/uL Neutrophils % % Lymphocytes % % Monocytes % % Eosinophils % % Basophils % % Neutrophils # (1.3-7.7) k/uL Lymphocytes # (1.0-4.8) k/uL Monocytes # (0-1.0) k/uL Eosinophils # (0-0.7) k/uL Basophils # (0-0.2) k/uL Hypochromasia Macrocytosis PT (9.0-12.0) sec INR (<1.2) APTT (22.0-30.0) sec Sodium (137-145) mmol/L Potassium (3.5-5.1) mmol/L Chloride (98-107) mmol/L Carbon Dioxide (22-30) mmol/L Anion Gap mmol/L BUN (9-20) mg/dL Creatinine (0.66-1.25) mg/dL Est GFR (CKD-EPI)AfAm (>60 ml/min/1.73 sqM) Est GFR (CKD-EPI)NonAf (>60 ml/min/1.73 sqM) Glucose (74-99) mg/dL Calcium (8.4-10.2) mg/dL Total Bilirubin (0.2-1.3) mg/dL AST (17-59) U/L ALT (21-72) U/L Alkaline Phosphatase (38-126) U/L Total Protein (6.3-8.2) g/dL Albumin (3.5-5.0) g/dL Stool Occult Blood Positive (Negative) Disposition Clinical Impression: MICHELLE (acute kidney injury), Symptomatic anemia Disposition: ADMITTED IP TO THIS [facility] Condition: Stable Is patient prescribed a controlled substance at d/c from ED?: No Referrals: [facility],Clinic [Primary Care Provider] - 1-2 days Time of Disposition: 15:41
[2018-09-23 15:16] LABS: Basophils % (A) 0 %; Eosinophils # (A) 0.1 k/uL (0-0.7); Eosinophils % (A) 2 %; HCT 23.1 % (39.0-53.0); HGB 7.6 gm/dL (13.0-17.5); Hypochromasia Slight; Lymphocytes # (A) 1.2 k/uL (1.0-4.8); Lymphocytes % (A) 14 %; MCH 34.1 pg (25.0-35.0); MCHC 32.8 g/dL (31.0-37.0); MCV 103.7 fL (80.0-100.0); Macrocytosis Moderate; Mean Platelet Volume 7.9; Monocytes # (A) 0.4 k/uL (0-1.0); Monocytes % (A) 5 %; Neutrophils # (A) 6.6 k/uL (1.3-7.7); Neutrophils % (A) 78 %; Platelet Count 303 k/uL (150-450); RBC 2.23 m/uL (4.30-5.90); RDW 15.1 % (11.5-15.5); WBC 8.5 k/uL (3.8-10.6)
[2018-09-23 15:24] LABS: Albumin 3.2 g/dL (3.5-5.0); Calcium 8.9 mg/dL (8.4-10.2); Potassium 4.7 mmol/L (3.5-5.1); Total Bilirubin 0.2 mg/dL (0.2-1.3); Total Protein 5.7 g/dL (6.3-8.2)
[2018-09-23 15:31] LABS: INR 0.8 (<1.2); Partial Thromboplastin Time 23.1 sec (22.0-30.0); Prothrombin Time 9.3 sec (9.0-12.0)
[2018-09-23] MEDS ORDERED: ONDANSETRON 4 MG/2 ML VIAL IVP PRN (15:43)
[2018-09-23] MEDS ORDERED: NALOXONE 0.4 MG/ML 1 ML VIAL IV PRN (15:43)
[2018-09-23] MEDS ORDERED: SODIUM CHLORIDE 0.9% 1,000 ML IV ONE (15:43)
[2018-09-23] MEDS ORDERED: PANTOPRAZOLE 40 MG/10 ML VIAL IVP STA (15:48)
[2018-09-23] MEDS ORDERED: SENNOSIDES 8.6 MG TAB PO PRN (17:51)
--- NOTE | 2018-09-23 18:08 | P.HPIM ---
History of Present Illness 68-year-old male was sent in from [facility] because of her oral low hemoglobin. Patient had this low hemoglobin long time was evaluated in the past found to have iron deficiency anemia although patient has macrocytic anemia now patient the in the past was extensively evaluated with the upper GI endoscopy colonoscopy and capsule study, patient is found to have antral gastritis at that time. Patient is on iron supplementation patient has one dark stool a day. Patient stool occult is positive but but this is not a specific test. Patient denied any fatigue but is comparing of chest pressure- like sensation in the midsternal area on and off last for 2 seconds nonradiating associated with some lightheadedness denied any shortness of breath or diaphoresis associated with that patient just pain is nonpruritic in nature not associated with food. Obtaining troponin levels and EKG which are not available at this time also consult cardiology because of his chest pain. Patient will be admitted to telemetry bed. She denied any fever chills nausea vomiting. Patient denied any hematemesis hematochezia. Patient's hemoglobin is 7.6 here and his hemoglobin was at this level in the past as well. Obtaining B12, ferritin, serum iron, folic acid levels. Patient appears to have chronic kidney disease baseline creatinine around 2 and now around 2.57 Review of Systems REVIEW OF SYSTEMS: CONSTITUTIONAL: No fever, no malaise, no fatigue. HEENT: No recent visual problems or hearing problems. Denied any sore throat. CARDIOVASCULAR: No orthopnea, PND, no palpitations, no syncope. PULMONARY: No shortness of breath, no cough, no hemoptysis. GASTROINTESTINAL: No diarrhea, no nausea, no vomiting, no abdominal pain. NEUROLOGICAL: No headaches, no weakness, no numbness. HEMATOLOGICAL: Denies any bleeding or petechiae. GENITOURINARY: Denies any burning micturition, frequency, or urgency. MUSCULOSKELETAL/RHEUMATOLOGICAL: Denies any joint pain, swelling, or any muscle pain. ENDOCRINE: Denies any polyuria or polydipsia. The rest of the 14-point review of systems is negative. Past Medical History Past Medical History: Coronary Artery Disease (CAD), Chest Pain / Angina, Diabetes Mellitus, GERD/Reflux, GI Bleed, Hyperlipidemia, Hypertension, Vascular Disorder Additional Past Medical History / Comment(s): Insomnia, abdominal distention that comes and goes, epistaxis, lower GI bleed, benign colon polyp, IDDM type II , low back pain with bilateral sciatica/neuropathy, DJD, past partial SBO treated conservatively, carotid disease, possible chronic kidney disease History of Any Multi-Drug Resistant Organisms: None Reported Past Surgical History: Cholecystectomy, Heart Catheterization Additional Past Surgical History / Comment(s): R carotid stent done in [place] , [facility] Past Anesthesia/Blood Transfusion Reactions: No Reported Reaction Past Psychological History: No Psychological Hx Reported Smoking Status: Current every day smoker Past Alcohol Use History: None Reported Past Drug Use History: Marijuana - Past Family History Father History Unknown: Yes Family Medical History: Unable to Obtain Mother Family Medical History: Cancer Additional Family Medical History / Comment(s): Mother from metastatic cancer pelvic origin Medications and Allergies Home Medications Medication Instructions Recorded Confirmed Type Ergocalciferol (Vitamin D2) 50,000 unit PO Q14D 07/18/17 09/23/18 History [Vitamin D2] Metoprolol Tartrate [Lopressor] 25 mg PO BID 07/18/17 09/23/18 History Ranitidine HCl [Zantac] 150 mg PO BID 07/18/17 09/23/18 History Simvastatin [Zocor] 40 mg PO HS 07/18/17 09/23/18 History Aspirin EC [Ecotrin Low Dose] 81 mg PO DAILY 02/10/18 09/23/18 History Ferrous Sulfate [Iron (65 MG 325 mg PO BID 02/10/18 09/23/18 History Elemental)] Gabapentin [Neurontin] 300 mg PO TID #0 02/13/18 09/23/18 Rx Isosorbide Mononitrate ER [Imdur] 60 mg PO DAILY 03/04/18 09/23/18 History Sennosides [Senna] 17.2 mg PO TID PRN 03/04/18 09/23/18 History glipiZIDE [Glucotrol] 5 mg PO BID 03/04/18 09/23/18 History Cyanocobalamin [Vitamin B-12] 500 mcg PO DAILY 09/23/18 09/23/18 History Furosemide [Lasix] 40 mg PO DAILY 09/23/18 09/23/18 History INSULIN LISPRO (HumaLOG) [HumaLOG] 30 unit SQ HS 09/23/18 09/23/18 History hydrALAZINE HCL 25 mg PO TID 09/23/18 09/23/18 History Allergies Allergy/AdvReac Type Severity Reaction Status Date / Time No Known Allergies Allergy Verified 09/23/18 17:02 Physical Exam Vitals: Vital Signs Temp Pulse Resp BP Pulse Ox 09/23/18 11:12 98.6 F 73 18 142/54 99 Intake and Output 09/23/18 09/23/18 09/23/18 06:59 14:59 22:59 Other: Weight 86.183 kg PHYSICAL EXAMINATION: GENERAL: The patient is alert and oriented x3, not in any acute distress. Well developed, well nourished. Patient does look pale HEENT: Pupils are round and equally reacting to light. EOMI. No scleral icterus. Does have conjunctival pallor. Normocephalic, atraumatic. No pharyngeal erythema. No thyromegaly. CARDIOVASCULAR: S1 and S2 present. No murmurs, rubs, or gallops. PULMONARY: Chest is clear to auscultation, no wheezing or crackles. ABDOMEN: Soft, nontender, nondistended, normoactive bowel sounds. No palpable organomegaly. MUSCULOSKELETAL: No joint swelling or deformity. EXTREMITIES: No cyanosis, clubbing, or pedal edema. NEUROLOGICAL: Gross neurological examination did not reveal any focal deficits. SKIN: No rashes. Results CBC & Chem 7: 09/23/18 14:23 09/23/18 14:23 Labs: Abnormal Lab Results - Last 24 Hours (Table) 09/23/18 09/23/18 Range/Units 14:23 14:23 RBC 2.23 L (4.30-5.90) m/uL Hgb 7.6 L (13.0-17.5) gm/dL Hct 23.1 L (39.0-53.0) % MCV 103.7 H (80.0-100.0) fL Sodium 136 L (137-145) mmol/L BUN 36 H (9-20) mg/dL Creatinine 2.57 H (0.66-1.25) mg/dL Glucose 334 H (74-99) mg/dL AST 12 L (17-59) U/L ALT 19 L (21-72) U/L Total Protein 5.7 L (6.3-8.2) g/dL Albumin 3.2 L (3.5-5.0) g/dL Assessment and Plan Plan: -Chest pain: We will rule out a concurrent syndromes, unstable angina will obtain a troponin and EKG as well as chest x-ray. Cardiology will be consulted -Anemia which appears to be chronic patient was diagnosed with iron deficiency in the past although patient has macrocytic anemia because of which I'll obtain serum iron and B12 folic acid and ferritin levels. Patient to follow with hematology as an outpatient depending on ferritin and iron levels will decide on IV iron supplementation as of now since there is no evidence of acute GI bleed and patient's hemoglobin is 7.6 patient will not be transfused unless his troponins are elevated or significant EKG changes -acute renal failure secondary to prerenal azotemia hold of Lasix IV continue with IV fluids and blood transfusion -Chronic kidney disease secondary to diabetic nephropathy -Type 2 diabetes mellitus uncontrolled blood sugars elevated blood sugars patient will be resumed on his home regimen along with sliding scale -History of carotid stents on the right side, will hold off aspirin for now but will be resumed tomorrow -Hyperlipidemia -Hypertension -Peripheral vascular disease
[2018-09-23 19:08] LABS: HCT 22.1 % (39.0-53.0); HGB 7.1 gm/dL (13.0-17.5); Hypochromasia Moderate; MCH 34.3 pg (25.0-35.0); MCHC 32.2 g/dL (31.0-37.0); MCV 106.5 fL (80.0-100.0); Macrocytosis Moderate; Mean Platelet Volume 7.7; Platelet Count 286 k/uL (150-450); RBC 2.08 m/uL (4.30-5.90); RDW 15.2 % (11.5-15.5); WBC 8.4 k/uL (3.8-10.6)
[2018-09-23] MEDS ORDERED: ALPRAZolam 0.25 MG TAB PO PRN (19:44)
[2018-09-23] MEDS ORDERED: ATORVASTATIN 20 MG TAB PO SCH (21:00)
[2018-09-23] MEDS ORDERED: INSULIN DETEMIR 100 UNIT/ML 10 ML VIAL SQ SCH (21:00)
[2018-09-23 21:44] LABS: Glucose,Whole Blood 224 mg/dL (75-99)
[2018-09-23] MEDS: METOPROLOL TARTRATE 25 MG TAB PO SCH (21:49)
[2018-09-23] MEDS: INSULIN ASPART 100 UNIT/ML 1 ML 10 ML VIAL SQ SCH (21:49)
[2018-09-23] MEDS: GABAPENTIN 300 MG CAP PO SCH (21:49)
[2018-09-23] MEDS: FERROUS SULFATE 325 MG TAB PO SCH (21:49)
[2018-09-24 00:09] LABS: Hypochromasia Slight; MCH 33.6 pg (25.0-35.0); MCHC 32.3 g/dL (31.0-37.0); MCV 103.9 fL (80.0-100.0); Macrocytosis Moderate; Mean Platelet Volume 7.9; Platelet Count 267 k/uL (150-450); RBC 2.02 m/uL (4.30-5.90); RDW 15.2 % (11.5-15.5); WBC 8.5 k/uL (3.8-10.6)
[2018-09-24 00:17] LABS: HGB 6.8 gm/dL (13.0-17.5)
[2018-09-24] MEDS ORDERED: LORazepam 2 MG/ML INJ IV PRN (00:39)
[2018-09-24 01:03] LABS: Folate, Serum 11.7 ng/mL
[2018-09-24 02:19] VITALS: RESP 16
[2018-09-24] MEDS ORDERED: FUROSEMIDE 10 MG/ML 2 ML VIAL IV ONE (04:00)
[2018-09-24 07:46] LABS: Glucose,Whole Blood 67 mg/dL (75-99)
[2018-09-24 07:58] VITALS: BP 178/76; PULSE 72; TEMP 97.4
[2018-09-24 08:06] LABS: Glucose,Whole Blood 77 mg/dL (75-99)
[2018-09-24] MEDS: INSULIN ASPART 100 UNIT/ML 1 ML 10 ML VIAL SQ SCH ×2 (08:37→13:18)
[2018-09-24] MEDS ORDERED: PANTOPRAZOLE 40 MG/10 ML VIAL IVP SCH (09:00)
[2018-09-24] MEDS ORDERED: ISOSORBIDE MONONITRATE ER 60 MG TAB.ER.24H PO SCH (09:00)
[2018-09-24] MEDS: METOPROLOL TARTRATE 25 MG TAB PO SCH (10:11)
[2018-09-24] MEDS: FERROUS SULFATE 325 MG TAB PO SCH (10:11)
[2018-09-24] MEDS: GABAPENTIN 300 MG CAP PO SCH (10:12)
[2018-09-24 11:42] LABS: Anisocytosis Slight; HCT 26.1 % (39.0-53.0); HGB 8.1 gm/dL (13.0-17.5); Hypochromasia Slight; MCH 31.8 pg (25.0-35.0); MCHC 31.1 g/dL (31.0-37.0); MCV 102.5 fL (80.0-100.0); Macrocytosis Moderate; Mean Platelet Volume 9.6; Platelet Count 260 k/uL (150-450); RBC 2.55 m/uL (4.30-5.90); RDW 16.4 % (11.5-15.5); WBC 10.6 k/uL (3.8-10.6)
[2018-09-24] MEDS ORDERED: hydrALAZINE HCL 25 MG TAB PO SCH (11:45)
--- NOTE | 2018-09-24 11:50 | P.CRDCN ---
History of Present Illness History of present illness: This is a pleasant 68-year-old male past medical history significant for peripheral vascular disease s/p stent to right carotid artery, hypertension , dyslipidemia, aortic stenosis, aortic regurgitation and diabetes mellitus. He denies history of coronary artery disease or bypass surgery. He does not follow with a critical care specialist for any reason. He states he used to a long time ago. Unsure why he takes imdur. We have been asked to see him in consultation for chest pain. He has chronic anemia and states he could feel his hgb was getting low. For the last week he has felt dizzy, tired, weak and short of breath. He had lab work done at [facility] and was called and told to come in for blood transfusion. On arrival hgb was 7.6 and then went down to 6.8. He received a blood transfusion last evening. Repeat CBC is pending. EKG on arrival reveals sinus mechanism with no acute ST or T-wave abnormalities. Cardiac enzymes are negative x3, creatinine 2.57, potassium 4.7, sodium 136. Currently maintained on aspirin 81 mg, lasix 40 mg daily, lopressor 25 mg BID, hydralazine 25 mg TID , imdur 60 mg daily and simvastatin 40mg daily. Lasix and aspirin have been held since admission. He is seen and examined sitting up in bed in no acute distress. He denies chest pain but states he still feels short of breath and tired. He denies dizziness or palpitations. He has not been up moving around yet today. At the time of my exam: CONSTITUTIONAL: Denies fever. Denies chills. EYES: Denies blurred vision. Denies vision changes. Denies eye pain. EARS, NOSE, MOUTH & THROAT: Denies headache. Denies sore throat. Denies ear pain. CARDIOVASCULAR: Denies chest pain. Complains of shortness of breath. Denies orthopnea. Denies PND. Denies palpitations. RESPIRATORY: Denies cough. GASTROINTESTINAL: Denies abdominal pain. Denies diarrhea. Denies constipation. Denies nausea. Denies vomiting. MUSCULOSKELETAL: Denies myalgias. INTEGUMENTARY: Denies pruitis. Denies rash. NEUROLOGIC: Denies numbness. Denies tingling. Complains of weakness. PSYCHIATRIC: Denies anxiety. Denies depression. ENDOCRINE: Complains of fatigue. Denies weight change. Denies polydipsia. Denies polyurina. GENITOURINARY: Denies burning, hematuria or urgency with micturation. HEMATOLOGIC: Admits to history of anemia. Denies bleeding. Blood pressure 170/76 heart rate 72 afebrile maintaining oxygen saturation on room air GENERAL: This is a 68-year-old male in no apparent distress at the time of my examination. HEENT: Head is atraumatic, normocephalic. Pupils are equal, round. Sclerae anicteric. Conjunctivae are clear. Mucous membranes of the mouth are moist. Neck is supple. There is no jugular venous distention. No carotid bruit is heard. LUNGS: Clear to auscultation no wheezes, rales or rhonchi. No chest wall tenderness is noted on palpation or with deep breathing. Diminished bilaterally. HEART: Regular rate and rhythm with systolic ejection murmur at the base, no rubs or gallops. S1 and S2 heard. ABDOMEN: Soft, nontender. Bowel sounds are heard. No organomegaly noted. EXTREMITIES: No evidence of peripheral edema and no calf tenderness noted. VASCULAR: Radial and dorsalis pedis pulses palpated, no evidence of clubbing. NEUROLOGIC: Patient is awake, alert and oriented x3. ASSESSMENT Acute on chronic anemia requiring blood transfusion secondary to iron deficiency Chest pain, atypical for angina. Secondary to anemia. An acute event has been ruled out. Acute on chronic kidney disease, GFR 24 Hypertension Dyslipidemia Diabetes mellitus Aortic stenosis and regurgitation Chronic nicotine dependence Marijuana use PLAN An acute coronary event has been ruled out. Obtain 2D echocardiogram and doppler study to assess cardiac structure and function. Aspirin and lasix have been held since admission secondary to anemia and acute kidney injury. Resume hydralazine. Chest pain is atypical for angina, related to anemic state. Ongoing medical management and GI evaluation. Thank you kindly for this consultation. The above impression and plan of care have been discussed and directed by the signing physician. Areli Yadav, nurse practitioner, acting as scribe for signing physician. Past Medical History Past Medical History: Coronary Artery Disease (CAD), Chest Pain / Angina, Diabetes Mellitus, GERD/Reflux, GI Bleed, Hyperlipidemia, Hypertension, Renal Disease, Vascular Disorder Additional Past Medical History / Comment(s): Insomnia, abdominal distention that comes and goes,hx partial sbo. epistaxis, sciatica, neuropathylower GI bleed, benign colon polyp, IDDM type II, low back stage lll, past fx lt wrist, uti History of Any Multi-Drug Resistant Organisms: None Reported Past Surgical History: Cholecystectomy, Heart Catheterization Additional Past Surgical History / Comment(s): R carotid stent done in [place] , EGD/colonoscopyDecember 2016, fx lt wrist -sx re-set. Past Anesthesia/Blood Transfusion Reactions: No Reported Reaction Smoking Status: Current every day smoker - Past Family History Father History Unknown: Yes Family Medical History: Unable to Obtain Mother Family Medical History: Cancer Additional Family Medical History / Comment(s): Mother from metastatic cancer pelvic origin Medications and Allergies Home Medications Medication Instructions Recorded Confirmed Type Ergocalciferol (Vitamin D2) 50,000 unit PO Q14D 07/18/17 09/23/18 History [Vitamin D2] Metoprolol Tartrate [Lopressor] 25 mg PO BID 07/18/17 09/23/18 History Ranitidine HCl [Zantac] 150 mg PO BID 07/18/17 09/23/18 History Simvastatin [Zocor] 40 mg PO HS 07/18/17 09/23/18 History Aspirin EC [Ecotrin Low Dose] 81 mg PO DAILY 02/10/18 09/23/18 History Ferrous Sulfate [Iron (65 MG 325 mg PO BID 02/10/18 09/23/18 History Elemental)] Gabapentin [Neurontin] 300 mg PO TID #0 02/13/18 09/23/18 Rx Isosorbide Mononitrate ER [Imdur] 60 mg PO DAILY 03/04/18 09/23/18 History Sennosides [Senna] 17.2 mg PO TID PRN 03/04/18 09/23/18 History glipiZIDE [Glucotrol] 5 mg PO BID 03/04/18 09/23/18 History Cyanocobalamin [Vitamin B-12] 500 mcg PO DAILY 09/23/18 09/23/18 History Furosemide [Lasix] 40 mg PO DAILY 09/23/18 09/23/18 History Insulin Glargine [Lantus] 30 unit SQ HS 09/23/18 09/23/18 History hydrALAZINE HCL 25 mg PO TID 09/23/18 09/23/18 History Allergies Allergy/AdvReac Type Severity Reaction Status Date / Time No Known Allergies Allergy Verified 09/23/18 17:02 Physical Exam Vitals: Vital Signs Temp Pulse Pulse Pulse Resp BP BP 09/24/18 07:54 97.4 F L 72 16 178/76 09/24/18 05:42 61 130/67 09/24/18 05:06 98.1 F 78 16 171/65 09/24/18 02:12 98.2 F 69 16 155/64 09/24/18 01:42 98.0 F 65 18 150/73 09/24/18 01:32 97.5 F L 60 18 167/67 09/24/18 01:25 97.8 F 62 158/64 09/23/18 23:44 97.5 F L 66 16 160/77 09/23/18 21:51 72 162/72 09/23/18 19:06 98.3 F 68 16 152/61 09/23/18 18:30 76 18 165/75 09/23/18 11:12 98.6 F 73 18 142/54 Pulse Ox 09/24/18 07:54 99 09/24/18 05:42 09/24/18 05:06 95 09/24/18 02:12 97 09/24/18 01:42 09/24/18 01:32 09/24/18 01:25 97 09/23/18 23:44 100 09/23/18 21:51 09/23/18 19:06 99 09/23/18 18:30 98 09/23/18 11:12 99 Intake and Output 09/23/18 09/24/18 09/24/18 22:59 06:59 14:59 Intake Total 920 Balance 920 Intake: IV 310 PRBCs 310 Intake, IV Titration 300 Amount Sodium Chloride 0.9% 1, 300 000 ml @ 100 mls/hr IV . Q10H ONE Rx#:[id number] Blood Product 310 Rc As-1 Unit 310 [id number] Other: Voiding Method Toilet Toilet # Voids 1 2 # Bowel Movements 0 Results 09/24/18 06:23 09/23/18 14:23 Cardiac Enzymes 09/23/18 09/23/18 09/23/18 Range/Units 14:23 18:24 23:26 AST 12 L (17-59) U/L Troponin I <0.012 <0.012 (0.000-0.034) ng/mL 09/24/18 Range/Units 06:23 AST (17-59) U/L Troponin I <0.012 (0.000-0.034) ng/mL Coagulation 09/23/18 Range/Units 14:23 PT 9.3 (9.0-12.0) sec APTT 23.1 (22.0-30.0) sec CBC 09/23/18 09/23/18 09/23/18 Range/Units 14:23 18:24 23:26 WBC 8.5 8.4 8.5 (3.8-10.6) k/uL RBC 2.23 L 2.08 L 2.02 L (4.30-5.90) m/uL Hgb 7.6 L 7.1 L 6.8 L* (13.0-17.5) gm/dL Hct 23.1 L 22.1 L 21.0 L (39.0-53.0) % Plt Count 303 286 267 (150-450) k/uL Comprehensive Metabolic Panel 09/23/18 Range/Units 14:23 Sodium 136 L (137-145) mmol/L Potassium 4.7 (3.5-5.1) mmol/L Chloride 105 (98-107) mmol/L Carbon Dioxide 25 (22-30) mmol/L BUN 36 H (9-20) mg/dL Creatinine 2.57 H (0.66-1.25) mg/dL Glucose 334 H (74-99) mg/dL Calcium 8.9 (8.4-10.2) mg/dL AST 12 L (17-59) U/L ALT 19 L (21-72) U/L Alkaline Phosphatase 85 (38-126) U/L Total Protein 5.7 L (6.3-8.2) g/dL Albumin 3.2 L (3.5-5.0) g/dL Current Medications Generic Name Dose Route Start Last Admin Trade Name Freq PRN Reason Stop Dose Admin Alprazolam 0.25 mg 09/23/18 19:44 09/23/18 21:49 Xanax PO 0.25 mg TID PRN Administration Anxiety Atorvastatin Calcium 20 mg 09/23/18 21:00 09/23/18 21:49 Lipitor PO 20 mg HS [facility] Administration Ferrous Sulfate 325 mg 09/23/18 21:00 09/24/18 10:11 Feosol PO 325 mg BID [facility] Administration Gabapentin 300 mg 09/23/18 22:00 09/24/18 10:12 Neurontin PO 300 mg TID [facility] Administration Insulin Aspart 0 unit 09/23/18 21:00 09/24/18 08:37 Novolog SQ Not Given [facility] Protocol Insulin Detemir 30 unit 09/23/18 21:00 09/23/18 21:49 Levemir SQ 30 unit HS [facility] Administration Isosorbide Mononitrate 60 mg 09/24/18 09:00 09/24/18 10:12 Imdur PO 60 mg DAILY [facility] Administration Lorazepam 1 mg 09/24/18 00:39 09/24/18 01:04 Ativan IV 1 mg Q6HR PRN Administration Anxiety Metoprolol Tartrate 25 mg 09/23/18 21:00 09/24/18 10:11 Lopressor PO 25 mg BID [facility] Administration Naloxone HCl 0.2 mg 09/23/18 15:43 Narcan IV Q2M PRN Opioid Reversal Ondansetron HCl 4 mg 09/23/18 15:43 Zofran IVP Q8HR PRN Nausea And Vomiting Pantoprazole Sodium 40 mg 09/24/18 09:00 09/24/18 10:11 Protonix IVP 40 mg DAILY [facility] Administration Senna 17.2 mg 09/23/18 17:51 Senokot PO TID PRN Constipation Intake and Output 09/23/18 09/24/18 09/24/18 22:59 06:59 14:59 Intake Total 920 Balance 920 Intake: IV 310 PRBCs 310 Intake, IV Titration 300 Amount Sodium Chloride 0.9% 1, 300 000 ml @ 100 mls/hr IV . Q10H ONE Rx#:[id number] Blood Product 310 Rc As-1 Unit 310 [id number] Other: Voiding Method Toilet Toilet # Voids 1 2 # Bowel Movements 0 09/23/18 23:26 09/23/18 14:23
--- NOTE | 2018-09-24 12:00 | P.CONS ---
History of Present Illness - Reason for Consult Consult date: 09/24/18 Anemia possible GI bleed Requesting physician: Landy Jean Baptiste - Chief Complaint Abnormal outpatient labs - History of Present Illness 68-year-old gentleman with a history of obscure GI bleed, iron deficiency anemia , CAD, carotid disease, chronic kidney disease admitted with reported abnormal outpatient labs hemoglobin. Admission hemoglobin 7.6 presently 6.8 FOBT positive. Reports intermittent dizziness lightheadedness. Takes oral iron therefore reports his bowel movement still looked dark. Denies overt bleeding such as hematemesis hematochezia or melena. Patient was seen in GI consultation several months ago for similar presentation with a hemoglobin of 6.6. He underwent EGD colonoscopy July 2017 with findings of mild antral gastritis but no evidence of peptic ulcer disease. Colonoscopy unremarkable few polyps removed. He then underwent capsule endoscopy January 2018 with no evidence of active bleeding. Patient denies abdominal pain. Denies indigestion. No fever or chills. Review of Systems Constitutional: Denies fever, chills, sweats, weight gain, or loss. HEENT: Negative for migraines, blurred vision or loss, earaches, drainage, tinnitus, oral mucosal lesions, dysphagia, or odynophagia. Cardiac: Negative for chest pain, arrhythmias, or palpitation. Respiratory: Negative for shortness of breath, hemoptysis, cough, or sputum production. Gastrointestinal: See HPI for pertinent findings. Genitourinary: Negative for hematuria, urgency, frequency, polyuria, dysuria, or penile discharge. Musculoskeletal: Negative for muscle aches, swelling, arthritis, and arthralgias. Neurologic: Negative for stroke or TIA. Endocrine: Negative for thyroid problems. Skin: Negative for rash or itching. Psychiatric: Negative history for depression and anxiety Past Medical History Past Medical History: Coronary Artery Disease (CAD), Chest Pain / Angina, Diabetes Mellitus, GERD/Reflux, GI Bleed, Hyperlipidemia, Hypertension, Renal Disease, Vascular Disorder Additional Past Medical History / Comment(s): Insomnia, abdominal distention that comes and goes,hx partial sbo. epistaxis, sciatica, neuropathylower GI bleed, benign colon polyp, IDDM type II, low back stage lll, past fx lt wrist, uti History of Any Multi-Drug Resistant Organisms: None Reported Past Surgical History: Cholecystectomy, Heart Catheterization Additional Past Surgical History / Comment(s): R carotid stent done in [place] , EGD/colonoscopyDecember 2017, fx lt wrist -sx re-set. Past Anesthesia/Blood Transfusion Reactions: No Reported Reaction Smoking Status: Current every day smoker - Past Family History Father History Unknown: Yes Family Medical History: Unable to Obtain Mother Family Medical History: Cancer Additional Family Medical History / Comment(s): Mother from metastatic cancer pelvic origin Medications and Allergies Home Medications Medication Instructions Recorded Confirmed Type Ergocalciferol (Vitamin D2) 50,000 unit PO Q14D 07/18/17 09/23/18 History [Vitamin D2] Metoprolol Tartrate [Lopressor] 25 mg PO BID 07/18/17 09/23/18 History Ranitidine HCl [Zantac] 150 mg PO BID 07/18/17 09/23/18 History Simvastatin [Zocor] 40 mg PO HS 07/18/17 09/23/18 History Aspirin EC [Ecotrin Low Dose] 81 mg PO DAILY 02/10/18 09/23/18 History Ferrous Sulfate [Iron (65 MG 325 mg PO BID 02/10/18 09/23/18 History Elemental)] Gabapentin [Neurontin] 300 mg PO TID #0 02/13/18 09/23/18 Rx Isosorbide Mononitrate ER [Imdur] 60 mg PO DAILY 03/04/18 09/23/18 History Sennosides [Senna] 17.2 mg PO TID PRN 03/04/18 09/23/18 History glipiZIDE [Glucotrol] 5 mg PO BID 03/04/18 09/23/18 History Cyanocobalamin [Vitamin B-12] 500 mcg PO DAILY 09/23/18 09/23/18 History Furosemide [Lasix] 40 mg PO DAILY 09/23/18 09/23/18 History Insulin Glargine [Lantus] 30 unit SQ HS 09/23/18 09/23/18 History hydrALAZINE HCL 25 mg PO TID 09/23/18 09/23/18 History Allergies Allergy/AdvReac Type Severity Reaction Status Date / Time No Known Allergies Allergy Verified 09/23/18 17:02 Physical Exam Vitals: Vital Signs Temp Pulse Pulse Pulse Resp BP BP 09/24/18 07:54 97.4 F L 72 16 178/76 09/24/18 05:42 61 130/67 09/24/18 05:06 98.1 F 78 16 171/65 09/24/18 02:12 98.2 F 69 16 155/64 09/24/18 01:42 98.0 F 65 18 150/73 09/24/18 01:32 97.5 F L 60 18 167/67 09/24/18 01:25 97.8 F 62 158/64 09/23/18 23:44 97.5 F L 66 16 160/77 09/23/18 21:51 72 162/72 09/23/18 19:06 98.3 F 68 16 152/61 09/23/18 18:30 76 18 165/75 Pulse Ox 09/24/18 07:54 99 09/24/18 05:42 09/24/18 05:06 95 09/24/18 02:12 97 09/24/18 01:42 09/24/18 01:32 09/24/18 01:25 97 09/23/18 23:44 100 09/23/18 21:51 09/23/18 19:06 99 09/23/18 18:30 98 Intake and Output 09/23/18 09/24/18 09/24/18 22:59 06:59 14:59 Intake Total 920 Balance 920 Intake: IV 310 PRBCs 310 Intake, IV Titration 300 Amount Sodium Chloride 0.9% 1, 300 000 ml @ 100 mls/hr IV . Q10H ONE Rx#:[id number] Blood Product 310 Rc As-1 Unit 310 [id number] Other: Voiding Method Toilet Toilet # Voids 1 2 # Bowel Movements 0 General appearance: The patient is alert, oriented, in no acute distress. HET: Head is normocephalic and atraumatic. Pupils are equal and reactive. Oropharynx is clear without lesions. Neck: Supple without lymphadenopathy. Trachea midline. Heart: S1 S2. Regular rate and rhythm. Lungs: No crackles or wheezes are heard. Abdomen: Soft, nontender, nondistended with bowel sounds. No peritoneal signs. No palpable organomegaly or masses. Extremities: Normal skin color and turgor. No cyanosis, rash, ulceration, clubbing, or edema. Radial and pedal pulses are 2/4 bilaterally. Neurological: No focal deficits. Strength and sensation are grossly intact. Results CBC & Chem 7: 09/24/18 06:23 09/23/18 14:23 Labs: Abnormal Lab Results - Last 24 Hours (Table) 09/23/18 09/23/18 09/23/18 Range/Units 14:23 14:23 14:23 RBC 2.23 L (4.30-5.90) m/uL Hgb 7.6 L (13.0-17.5) gm/dL Hct 23.1 L (39.0-53.0) % MCV 103.7 H (80.0-100.0) fL Sodium 136 L (137-145) mmol/L BUN 36 H (9-20) mg/dL Creatinine 2.57 H (0.66-1.25) mg/dL Glucose 334 H (74-99) mg/dL POC Glucose (mg/dL) (75-99) mg/dL Iron (65-175) ug/dL Ferritin (22.0-322.0) ng/mL AST 12 L (17-59) U/L ALT 19 L (21-72) U/L Total Protein 5.7 L (6.3-8.2) g/dL Albumin 3.2 L (3.5-5.0) g/dL Crossmatch See Detail 09/23/18 09/23/18 09/23/18 Range/Units 18:24 18:24 18:24 RBC 2.08 L (4.30-5.90) m/uL Hgb 7.1 L (13.0-17.5) gm/dL Hct 22.1 L (39.0-53.0) % MCV 106.5 H (80.0-100.0) fL Sodium (137-145) mmol/L BUN (9-20) mg/dL Creatinine (0.66-1.25) mg/dL Glucose (74-99) mg/dL POC Glucose (mg/dL) (75-99) mg/dL Iron 42 L (65-175) ug/dL Ferritin 583.5 H (22.0-322.0) ng/mL AST (17-59) U/L ALT (21-72) U/L Total Protein (6.3-8.2) g/dL Albumin (3.5-5.0) g/dL Crossmatch 09/23/18 09/23/18 09/24/18 Range/Units 21:32 23:26 07:28 RBC 2.02 L (4.30-5.90) m/uL Hgb 6.8 L* (13.0-17.5) gm/dL Hct 21.0 L (39.0-53.0) % MCV 103.9 H (80.0-100.0) fL Sodium (137-145) mmol/L BUN (9-20) mg/dL Creatinine (0.66-1.25) mg/dL Glucose (74-99) mg/dL POC Glucose (mg/dL) 224 H 67 L (75-99) mg/dL Iron (65-175) ug/dL Ferritin (22.0-322.0) ng/mL AST (17-59) U/L ALT (21-72) U/L Total Protein (6.3-8.2) g/dL Albumin (3.5-5.0) g/dL Crossmatch Assessment and Plan Assessment: Impression: 1. Acute on chronic iron deficiency anemia symptomatic with positive FOBT and without overt GI bleeding such as hematemesis hematochezia melena. Suspect underlying obscure GI bleed possible small bowel source. 2. History of coronary artery disease carotid disease maintained on baby aspirin. Plan: 1. EGD recommended however patient is declining at this time he wants to speak with his . CBC monitoring. Diet as tolerated. Iron supplementation. We' ll continue to follow with you. Thank you for this kind referral and the opportunity to participate in the care of your patient. This consultation was discussed with Dr. Hartley. The impression and plan of care have been directed as dictated.
[2018-09-24 12:13] LABS: Glucose,Whole Blood 218 mg/dL (75-99)
[2018-09-24 13:05] LABS: Potassium 3.8 mmol/L (3.5-5.1)
--- NOTE | 2018-09-24 14:06 | CDI ---
Documentation Clarification Form Date: 09/24/2018 1:51:40 PM From: Sandra Reza RN, CCDS Admit Date: 09/24/2018 7:49:00 AM Patient Name: Jack Egan Visit Number: [id number] ATTENTION: The Clinical Documentation Specialists (CDI) and [facility] Coding Staff appreciate your assistance in clarifying documentation. Please respond to the clarification below the line at the bottom and electronically sign. The CDI & [facility] Coding staff will review the response and follow-up if needed. Please note: Queries are made part of the Legal Health Record. If you have any questions, please contact the author of this message via ITS. Dr. Landy Jean Baptiste History/Risk Factors: CAD, CP, DM, GERD, GI Bleed, HTN, chronic kidney disease Clinical Indicators: 09/23 H&P: "Patient appears to have chronic kidney disease baseline creatinine around 2 and now around 2.57. Chronic kidney disease secondary to diabetic nephropathy" 09/24 Cardiology:" Acute on chronic kidney disease, GFR 24." Current BUN: 36/33 CR: 2.57/2.25 GFR: 24/29 05/24/18 Patients Baseline BUN/CR/GFR: 22/33 Treatment: IVF IVF Bolus Feosol 325Mg PO BID, Lasix 20 mg IVP x1 dose In order to capture the severity of condition, please clarify if the condition signifies: CKD Stage 3 (GFR 30-59) CKD Stage 4 (GFR 15-29) Other, please specify Unable to determine (Last Revision: November 2017) CKD Stage 4 (GFR 15-29) MTDD
--- NOTE | 2018-09-24 14:47 | P.DS ---
Providers Date of admission: 09/24/18 07:49 Attending physician: Landy Jean Baptiste Consults: 09/23/18 17:50 Consult Physician Routine Consulting Provider: Mikel Galdamez Consult Reason/Comments: Chest pain Do you want consulting provider notified?: Yes 09/23/18 17:58 Consult Physician Routine Consulting Provider: Fidencio Hartley Consult Reason/Comments: Possible chronic GI bleed Do you want consulting provider notified?: Yes Primary care physician: [facility] Hospital Course: 68-year-old admitted the for anemia which appears to be chronic anemia. Patient will be pretty which I believe is significant acute renal failure from on chronic kidney disease stage IV. Since creatinine improved marginally with the discontinuation of diuretic therapy and IV fluids. We extensively reviewed his chart patient appears to have some chronic concentrate left ventricular hypertrophy a cannot completely rule out diastolic dysfunction but the this does have his systolic function is within normal limits I'll hold off on lisinopril. Basic metabolic profile will be repeated in 3 days results will be faxed at PCPs office if patient goes into volume overload patient was started back on Lasix at that time. As of now hoping that his kidney function will improve a little completely discontinued Lasix at this time. Patient did not qualify for blood transfusion his hemoglobin today is 8.1 no evidence of acute GI bleed gastroenterology evaluated the patient patient declined upper GI endoscopy had multiple procedures in the past only showed some antral gastritis at the time. Patient blood sugars were running a bit low because of which I'm changing his Glucotrol to once a day from twice a day and patient will continue his Lantus. Patient had chest pain which appears to be atypical underwent evaluation by cardiology opting echocardiogram and make sure he doesn't have any wall motion about is before his discharge. Patient's ferritin only casted and B12 levels are essentially within normal limits patient IM is low will continue with his oral iron supplementation patient may benefit from a hematology follow-up PHYSICAL EXAMINATION: GENERAL: The patient is alert and oriented x3, not in any acute distress. Well developed, well nourished. HEENT: Pupils are round and equally reacting to light. EOMI. No scleral icterus. Does have conjunctival pallor. Normocephalic, atraumatic. No pharyngeal erythema. No thyromegaly. CARDIOVASCULAR: S1 and S2 present. No murmurs, rubs, or gallops. PULMONARY: Chest is clear to auscultation, no wheezing or crackles. ABDOMEN: Soft, nontender, nondistended, normoactive bowel sounds. No palpable organomegaly. MUSCULOSKELETAL: No joint swelling or deformity. EXTREMITIES: No cyanosis, clubbing, or pedal edema. NEUROLOGICAL: Gross neurological examination did not reveal any focal deficits. SKIN: No rashes. Assessment and Plan Plan: -Chest pain: Rule out acute current syndromes was a valid by cardiology and echocardiogram as mentioned above -Anemia which appears to be chronic patient was diagnosed with iron deficiency in the past -acute renal failure secondary to prerenal azotemia. -Chronic kidney disease secondary to diabetic nephropathy -Type 2 diabetes mellitus -History of carotid stents on the right side, will hold off aspirin for now but will be resumed tomorrow -Hyperlipidemia -Hypertension -Peripheral vascular disease Patient Condition at Discharge: Stable Plan - Discharge Summary Discharge Rx Participant: No New Discharge Prescriptions: Continue Metoprolol Tartrate [Lopressor] 25 mg PO BID Simvastatin [Zocor] 40 mg PO HS Ranitidine HCl [Zantac] 150 mg PO BID Ergocalciferol (Vitamin D2) [Vitamin D2] 50,000 unit PO Q14D Aspirin EC [Ecotrin Low Dose] 81 mg PO DAILY Ferrous Sulfate [Iron (65 MG Elemental)] 325 mg PO BID Gabapentin [Neurontin] 300 mg PO TID #0 Isosorbide Mononitrate ER [Imdur] 60 mg PO DAILY Sennosides [Senna] 17.2 mg PO TID PRN PRN Reason: Constipation hydrALAZINE HCL 25 mg PO TID Cyanocobalamin [Vitamin B-12] 500 mcg PO DAILY Insulin Glargine [Lantus] 30 unit SQ HS Changed glipiZIDE [Glucotrol] 5 mg PO DAILY #0 Discontinued Furosemide [Lasix] 40 mg PO DAILY Discharge Medication List Ergocalciferol (Vitamin D2) [Vitamin D2] 50,000 unit PO Q14D 07/18/17 [History] Metoprolol Tartrate [Lopressor] 25 mg PO BID 07/18/17 [History] Ranitidine HCl [Zantac] 150 mg PO BID 07/18/17 [History] Simvastatin [Zocor] 40 mg PO HS 07/18/17 [History] Aspirin EC [Ecotrin Low Dose] 81 mg PO DAILY 02/10/18 [History] Ferrous Sulfate [Iron (65 MG Elemental)] 325 mg PO BID 02/10/18 [History] Gabapentin [Neurontin] 300 mg PO TID #0 02/13/18 [Rx] Isosorbide Mononitrate ER [Imdur] 60 mg PO DAILY 03/04/18 [History] Sennosides [Senna] 17.2 mg PO TID PRN 03/04/18 [History] Cyanocobalamin [Vitamin B-12] 500 mcg PO DAILY 09/23/18 [History] Insulin Glargine [Lantus] 30 unit SQ HS 09/23/18 [History] hydrALAZINE HCL 25 mg PO TID 09/23/18 [History] glipiZIDE [Glucotrol] 5 mg PO DAILY #0 09/24/18 [Rx] Follow up Appointment(s)/Referral(s): [facility],Clinic [Primary Care Provider] - 3 Days Discharge Disposition: HOME SELF-CARE
--- NOTE | 2018-09-25 10:31 | ECHOF ---
Referral Reason:cp, sob, anemic MEASUREMENTS -------- HEIGHT: 170.2 cm WEIGHT: 86.2 kg BP: 178/76 RVIDd: 3.5 cm (< 3.3) IVSd: 1.9 cm (0.6 - 1.1) LVIDd: 3.8 cm (3.9 - 5.3) LVPWd: 1.7 cm (0.6 - 1.1) IVSs: 2.3 cm LVIDs: 2.5 cm LVPWs: 2.2 cm LAESV Index (A-L): 30.82 ml/m Ao Diam: 3.8 cm (2.0 - 3.7) AV Cusp: 1.7 cm (1.5 - 2.6) LA Diam: 3.4 cm (2.7 - 3.8) MV EXCURSION: 14.577 mm (> 18.000) MV EF SLOPE: 56 mm/s (70 - 150) EPSS: 0.5 cm MV E Ray: 1.04 m/s MV DecT: 278 ms MV A Ray: 1.22 m/s MV E/A Ratio: 0.85 AV maxP.55 mmHg AV meanP.54 mmHg AR PHT: 516 ms RAP: 5.00 mmHg RVSP: 24.21 mmHg FINDINGS -------- Sinus rhythm. This was a technically good study. The left ventricular size is normal. There is severe concentric left ventricular hypertrophy. Ove rall left ventricular systolic function is normal with, an EF between 55 - 60 %. The right ventricle is mildly enlarged. LA is midly dilated 29-33ml/m2. The right atrium is normal in size. Aortic valve is trileaflet and is mildly thickened. There is qxew-eg-qolqxiis aortic regurgitation. There is mild aortic stenosis present. Peak/mean gradient across the Aortic Valve is 20.55mmHg / 10.54mmHg. The mitral valve leaflets are mildly thickened. Mild mitral regurgitation is present. Severe calc ification of the posterior annulus. Mild tricuspid regurgitation present. The right ventricular systolic pressure, as measured by Doppl er, is 24.21mmHg. Trace/mild (physiologic) pulmonic regurgitation. The aortic root and ascending aorta are dilated measuring up to 4.0 cm. Normal inferior vena cava with normal inspiratory collapse consistent with estimated right atrial pre ssure of 5 mmHg. The pericardium is normal. CONCLUSIONS -------- 1. Sinus rhythm. 2. This was a technically good study. 3. The left ventricular size is normal. 4. There is severe concentric left ventricular hypertrophy. 5. Overall left ventricular systolic function is normal with, an EF between 55 - 60 %. 6. The right ventricle is mildly enlarged. 7. LA is midly dilated 29-33ml/m2. 8. The right atrium is normal in size. 9. Aortic valve is trileaflet and is mildly thickened. 10. There is uyyf-qy-nzlthppy aortic regurgitation. 11. There is mild aortic stenosis present. 12. Peak/mean gradient across the Aortic Valve is 20.55mmHg / 10.54mmHg. 13. The mitral valve leaflets are mildly thickened. 14. Mild mitral regurgitation is present. 15. Severe calcification of the posterior annulus. 16. Mild tricuspid regurgitation present. 17. The right ventricular systolic pressure, as measured by Doppler, is 24.21mmHg. 18. Trace/mild (physiologic) pulmonic regurgitation. 19. The aortic root and ascending aorta are dilated measuring up to 4.0 cm. 20. Normal inferior vena cava with normal inspiratory collapse consistent with estimated right atrial pressure of 5 mmHg. 21. The pericardium is normal. STOCK MIXER: Crystal Martínez RDCS
== END 2018-09-24 17:02 | disposition home or self-care (01) | DRG 313 ==
LOC: EC 10:46 → 4SSUR 15:44 → OBSVTOIN 09-24 07:49
PROVIDERS: ADMIT Internal Medicine; ATTEND Internal Medicine
DX: R07.9 Chest pain, unspecified (principal); N17.9 Acute kidney failure, unspecified; N18.4 Chronic kidney disease, stage 4 (severe); D50.9 Iron deficiency anemia, unspecified; D53.9 Nutritional anemia, unspecified; E11.21 Type 2 diabetes mellitus with diabetic nephropathy; E11.22 Type 2 diabetes mellitus with diabetic chronic kidney disease; E11.51 Type 2 diabetes mellitus with diabetic peripheral angiopathy without gangrene; E11.65 Type 2 diabetes mellitus with hyperglycemia; E78.5 Hyperlipidemia, unspecified; F17.200 Nicotine dependence, unspecified, uncomplicated; I12.9 Hypertensive chronic kidney disease with stage 1 through stage 4 chronic kidney disease, or unspecified chronic kidney disease; I25.10 Atherosclerotic heart disease of native coronary artery without angina pectoris; I35.2 Nonrheumatic aortic (valve) stenosis with insufficiency; K21.9 Gastro-esophageal reflux disease without esophagitis; K29.60 Other gastritis without bleeding; Z79.4 Long term (current) use of insulin; Z79.82 Long term (current) use of aspirin; Z79.899 Other long term (current) drug therapy; Z80.9 Family history of malignant neoplasm, unspecified; Z86.010 Personal history of colon polyps
CPT/HCPCS: 36415; 80048; 80053; 82272; 82607; 82728; 82746; 82747; 83540; 83880; 84484; 85025; 85027; 85610; 85730; 86850; 86900; 86901; 86920; 93005; 93306; 96361; 96374; 99285

== ENCOUNTER → 2019-01-26 | Outpatient (CLI) | payer OTHER ==
[2019-01-26 10:15] LABS: Basophils % (A) 0 %; Eosinophils # (A) 0.1 k/uL (0-0.7); Eosinophils % (A) 1 %; HCT 31.1 % (39.0-53.0); Lymphocytes # (A) 1.1 k/uL (1.0-4.8); Lymphocytes % (A) 14 %; MCHC 32.3 g/dL (31.0-37.0); MCV 99.1 fL (80.0-100.0); Mean Platelet Volume 8.2; Monocytes # (A) 0.4 k/uL (0-1.0); Monocytes % (A) 5 %; Neutrophils # (A) 6.3 k/uL (1.3-7.7); Neutrophils % (A) 78 %; Platelet Count 284 k/uL (150-450); RBC 3.14 m/uL (4.30-5.90); RDW 13.9 % (11.5-15.5)
[2019-01-26 10:24] LABS: INR 0.9 (<1.2); Partial Thromboplastin Time 25.8 sec (22.0-30.0); Prothrombin Time 9.4 sec (9.0-12.0)
[2019-01-26 10:26] LABS: Appearance,Urine Clear (Clear); Bacteria,Urine Rare /hpf; Bilirubin,Urine Negative (Negative); Blood,Urine Trace (Negative); Color,Urine Yellow; Glucose,Urine (UA) Trace (Negative); Hyaline Casts,Urine 4 /lpf (0-2); Ketones,Urine Negative (Negative); Leukocyte Esterase,Urine Negative (Negative); Mucus,Urine Rare /hpf; Nitrite,Urine Negative (Negative); Protein,Urine 3+ (Negative); RBC,Urine 3 /hpf (0-5); Specific Gravity,Urine 1.015 (1.001-1.035); Squamous Epithelial Cell,Urine <1 /hpf (0-4); Urobilinogen,Urine <2.0 mg/dL (<2.0); WBC,Urine 2 /hpf (0-5)
[2019-01-26 16:53] LABS: Iron Saturation 18.28 (15.00-50.00)
[2019-01-26 17:01] LABS: Vitamin D 25 Hydroxy 50.8 ng/mL (30.0-100.0)
[2019-01-26 17:14] LABS: African American GFR (CKD) 27.9 (60.0-200.0); Albumin 3.7 g/dL (3.80-4.90); Albumin/Globulin Ratio 2.06 (1.60-3.17); Anion Gap 5.6 mmol/L (4.00-12.00); BUN/Creat Ratio 11.15 Ratio (12.00-20.00); Calcium 8.8 mg/dL (8.7-10.3); Carbon Dioxide 21.4 mmol/L (21.6-31.8); Globulin 1.8 g/dL (1.6-3.3); Magnesium 1.8 mg/dL (1.5-2.4); Phosphorus 4.4 mg/dL (2.4-5.1); Potassium 5.5 mmol/L (3.5-5.5); Total Bilirubin 0.2 mg/dL (0.3-1.2); Total Protein 5.5 g/dL (6.2-8.2); Uric Acid 6.3 mg/dL (3.7-8.7)
[2019-01-26 18:31] LABS: Parathyroid Hormone Intact 116.2 pg/mL (14.0-72.0)
[2019-01-26 21:26] LABS: Creatinine,Urine Random 137.9 mg/dL
== END | disposition home or self-care (01) ==
LOC: LABWHC1 09:37
PROVIDERS: ATTEND Nurse Practitioner Family
DX: E55.9 Vitamin D deficiency, unspecified (principal); N18.3 Chronic kidney disease, stage 3 (moderate); D63.1 Anemia in chronic kidney disease; N39.0 Urinary tract infection, site not specified; N25.81 Secondary hyperparathyroidism of renal origin; M10.9 Gout, unspecified
CPT/HCPCS: 36415; 80053; 81001; 82043; 82306; 82570; 82728; 83540; 83550; 83735; 83970; 84100; 84156; 84550; 85025; 85610; 85730

== ENCOUNTER → 2019-01-27 | Day surgery (SDC) | payer OTHER ==
[~2019-01-27] MED LIST: ALPRAZolam 0.25 MG TAB PO STA; DESMOPRESSIN ACETATE 26 MCG in SODIUM CHLORIDE 0.9% 50 ML IVPB ONE; DESMOPRESSIN ACETATE 4 MCG/ML VIAL (MDV) IV SCH; HYDROmorphone 1 MG/ML 1 ML SYRINGE IVP STA
[2019-01-27 08:28] LABS: Glucose,Whole Blood 194 mg/dL (75-99)
[2019-01-27 08:41] VITALS: TEMP 97.7
[2019-01-27 11:29] VITALS: PULSE 68
--- NOTE | 2019-01-27 11:45 | CT ---
DATE OF EXAM: 01/27/2019 COMPARISON: NONE CT DLP: 979 mGycm HISTORY: Renal failure, proteinuria, chronic kidney disease PROCEDURE: Maximal barrier technique was utilized. After informed consent, the skin overlying a suit able path to the left kidney was localized using CT guidance, the skin was prepped and draped. Lidoc melchor was used for local anesthesia. A skin jennifer made with a scalpel. Using CT guidance, a 17-gauge needle was advanced into in position at the lateral and inferior cortex of the left kidney where coax ial placement of an 18-gauge needle was used and core biopsy obtained. Three passes made in total. Hemostasis was achieved. There was no immediate complication and patient remained in stable conditio n. Specimen submitted to Pathology. IMPRESSION: Status post CT guided core biopsy of left renal cortex, pathology pending. This procedur e performed by the undersigned.
[2019-01-27 15:09] VITALS: RESP 20
[2019-01-27 15:20] VITALS: BP 158/75
== END ==
LOC: RADPROMAIN 07:58
PROVIDERS: ATTEND Internal Medicine
DX: R80.9 Proteinuria, unspecified (principal); N18.3 Chronic kidney disease, stage 3 (moderate)
CPT/HCPCS: 86900; 86901; 86850; 96374; 36415; 50200; 77012; J1170; J2597

== ENCOUNTER 2019-05-27 07:48 | Day surgery (SDC) | payer OTHER ==
[~2019-05-27 07:48] MED LIST changes: +ALPRAZolam 0.25 MG TAB PO PRN; -ALPRAZolam 0.25 MG TAB PO STA; +ALPRAZolam 0.5 MG TAB PO PRN; +ASPIRIN 325 MG TAB PO STA; -DESMOPRESSIN ACETATE 26 MCG in SODIUM CHLORIDE 0.9% 50 ML IVPB ONE; -DESMOPRESSIN ACETATE 4 MCG/ML VIAL (MDV) IV SCH; -HYDROmorphone 1 MG/ML 1 ML SYRINGE IVP STA; +SODIUM CHLORIDE 0.9% 1,000 ML in EMPTY BAG 1 BAG IV ONE; +ZOLPIDEM 5 MG TAB PO PRN
[2019-05-27 08:16] LABS: Glucose,Whole Blood 140 mg/dL (75-99)
[2019-05-27 08:24] VITALS: RESP 18
[2019-05-27 08:29] LABS: Basophils # (A) 0.1 k/uL (0-0.2); Basophils % (A) 1 %; Eosinophils # (A) 0.3 k/uL (0-0.7); Eosinophils % (A) 3 %; HCT 30.5 % (39.0-53.0); HGB 9.4 gm/dL (13.0-17.5); Hypochromasia Slight; Lymphocytes # (A) 1.2 k/uL (1.0-4.8); Lymphocytes % (A) 12 %; MCH 31.5 pg (25.0-35.0); MCHC 30.7 g/dL (31.0-37.0); MCV 102.8 fL (80.0-100.0); Macrocytosis Slight; Mean Platelet Volume 8.2; Monocytes # (A) 0.4 k/uL (0-1.0); Monocytes % (A) 5 %; Neutrophils # (A) 7.6 k/uL (1.3-7.7); Neutrophils % (A) 79 %; Platelet Count 278 k/uL (150-450); RBC 2.97 m/uL (4.30-5.90); RDW 14.1 % (11.5-15.5); WBC 9.7 k/uL (3.8-10.6)
[2019-05-27 08:50] LABS: Potassium 5.2 mmol/L (3.5-5.1)
[2019-05-27] MEDS ORDERED: HYDROmorphone 1 MG/ML 1 ML SYRINGE IVP STA ×2 (10:41→12:49)
[2019-05-27] MEDS: MIDAZOLAM PF (FBP) 2 MG/2 ML VIAL IV ONE ×2 (12:10→12:28)
[2019-05-27] MEDS ORDERED: LIDOCAINE 1% INJ 10MG/ML (20 ML MDV) SQ ONE (12:11)
[2019-05-27] MEDS: HYDROmorphone 1 MG/ML 1 ML SYRINGE IVP ONE ×2 (12:19→12:49)
[2019-05-27 14:02] VITALS: BMI 30.9
--- NOTE | 2019-05-27 14:31 | IR ---
EXAMINATION TYPE: IR angio abdominal w runoff DATE OF EXAM: 05/27/2019 COMPARISON: NONE HISTORY: Fluoroscopy time. Fluoroscopy was provided to the referring clinician.
[2019-05-27] MEDS ORDERED: glipiZIDE 5 MG TAB PO STA (16:22)
[2019-05-27] MEDS ORDERED: hydrALAZINE HCL 25 MG TAB PO STA (16:22)
[2019-05-27 19:33] VITALS: BP 185/74; PULSE 73; TEMP 97.9
--- NOTE | 2019-05-27 22:52 | AN ---
ANGIOGRAPHY REPORT DATE OF SERVICE: May 27, 2019 PERFORMING PHYSICIAN: Bobby Stone MD. PROCEDURE PERFORMED: 1. Abdominal aortogram. 2. Bilateral lower extremities runoff. INDICATION: This is a very pleasant 69-year-old gentleman who sees Dr. Sims in the office as an outpatient with history of advanced chronic kidney disease, carotid disease, hypertension, and dyslipidemia, who was experiencing symptoms of bilateral lower extremities intermittent claudication Fontan class 4-5. The patient cannot walk more than 200 feet before he stops because of the pain. He underwent an FRIEDA which came in to be abnormal bilaterally. Because of that, an aortogram with runoff was advised. Because of the patient advanced chronic kidney disease, we decided to pursue doing the abdominal aortogram and bilateral lower extremities runoff using CO2. APPROACH: Right common femoral artery. COMPLICATION: None. LEVEL OF SEDATION: Moderate with sedation length of 22 minutes. PROCEDURE DESCRIPTION: After obtaining an informed consent, the patient was brought to the cardiac collaborating supervising physician. The right common femoral artery was cannulated using micropuncture technique under ultrasound guidance, the micropuncture wire passed easily then I placed a 5-V[place] Citizen sheath. We did an abdominal aortogram and bilateral lower extremities runoff using 5-V[place] Citizen pigtail catheter which was initially placed at the level of the renal arteries and it was pulled back into above the bifurcation of the aorta to right and left common iliac arteries. After that, I did select the left common femoral artery using 5-V[place] Citizen Rim catheter with 0.035 Glidewire. I did selective left common femoral artery angiogram and runoff of the left lower extremities with injection through the rim catheter and then its injection through the sheath. The procedure was completed without any complication. SELECTIVE PERIPHERAL ANGIOGRAM: 1. The aorta appeared to have mild disease only. 2. Common iliac arteries: Both common iliac arteries appeared to be patent. 3. Internal iliac arteries are patent. 4. External iliac arteries are patent. 5. Common femoral artery appeared to have mild disease only. 6. Profunda are patent. 7. SFA: Both SFA are occluded. 8. Popliteal appeared to be patent. 9. Below the knee: The arteries below the knee were not well visualized. CONCLUSION: 1. Mild aortoiliac disease. 2. 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 POSTPROCEDURE MANAGEMENT: The patient will be brought to undergo a INFORMATION RESOURCE CONSULTANT of the right and left SFA and hopefully we can do that with CO2 and without any IV contrast with adjunctive use of intravascular ultrasound IVUS. MMYOJANAL / IJN: [id number] /
== END 2019-05-27 20:15 | disposition home or self-care (01) ==
LOC: CATHCVL 07:48 → 1SOBS 12:48 → CATHCVL 20:15
PROVIDERS: ATTEND Internal Medicine Interventional Cardiology
DX: I70.213 Atherosclerosis of native arteries of extremities with intermittent claudication, bilateral legs (principal); I70.0 Atherosclerosis of aorta; I12.9 Hypertensive chronic kidney disease with stage 1 through stage 4 chronic kidney disease, or unspecified chronic kidney disease; E11.22 Type 2 diabetes mellitus with diabetic chronic kidney disease; N18.9 Chronic kidney disease, unspecified; D64.9 Anemia, unspecified; E78.5 Hyperlipidemia, unspecified; F17.210 Nicotine dependence, cigarettes, uncomplicated; Z79.4 Long term (current) use of insulin; Z79.82 Long term (current) use of aspirin; Z79.899 Other long term (current) drug therapy; Z82.49 Family history of ischemic heart disease and other diseases of the circulatory system
CPT/HCPCS: 36246; 75625; 75716; 76937; 80048; 85025; C1769 ×6; C1894; J2001; J1170; J2250

== ENCOUNTER 2019-06-24 12:22 | Day surgery (SDC) | payer OTHER ==
[2019-06-24 12:45] LABS: Glucose,Whole Blood 109 mg/dL (75-99)
[2019-06-24 13:18] LABS: Basophils % (A) 0 %; Eosinophils # (A) 0.1 k/uL (0-0.7); Eosinophils % (A) 1 %; HCT 29.6 % (39.0-53.0); HGB 9.4 gm/dL (13.0-17.5); Lymphocytes # (A) 0.9 k/uL (1.0-4.8); Lymphocytes % (A) 13 %; MCH 31.6 pg (25.0-35.0); MCHC 31.8 g/dL (31.0-37.0); MCV 99.2 fL (80.0-100.0); Mean Platelet Volume 7.8; Monocytes # (A) 0.4 k/uL (0-1.0); Monocytes % (A) 6 %; Neutrophils # (A) 5.6 k/uL (1.3-7.7); Neutrophils % (A) 78 %; Platelet Count 289 k/uL (150-450); RBC 2.99 m/uL (4.30-5.90); RDW 13.6 % (11.5-15.5); WBC 7.1 k/uL (3.8-10.6)
[2019-06-24 13:27] LABS: Albumin 3.2 g/dL (3.5-5.0); Calcium 9.1 mg/dL (8.4-10.2); Potassium 4.8 mmol/L (3.5-5.1); Total Bilirubin 0.1 mg/dL (0.2-1.3); Total Protein 5.9 g/dL (6.3-8.2)
[2019-06-24] MEDS ORDERED: MIDAZOLAM 2 MG/2 ML VIAL IV ONE (13:54)
[2019-06-24] MEDS ORDERED: LIDOCAINE 1% INJ 10MG/ML (20 ML MDV) SQ ONE (14:10)
[2019-06-24] MEDS ORDERED: HYDROmorphone 1 MG/ML 1 ML SYRINGE IVP ONE (14:13)
[2019-06-24] MEDS: fentaNYL (PF) 50 MCG/ML 2 ML AMP IV ONE ×2 (14:19→16:00)
[2019-06-24] MEDS ORDERED: IOPAMIDOL-250 50ML BTL IV ONE (15:44)
[2019-06-24] MEDS ORDERED: CLOPIDOGREL 75 MG TAB PO ONE (15:58)
[2019-06-24] MEDS ORDERED: hydrALAZINE HCL 20 MG/ML 1 ML VIAL IV ONE (15:59)
[2019-06-24] MEDS ORDERED: SODIUM CHLORIDE 0.9% 1,000 ML IV SCH (16:15)
--- NOTE | 2019-06-24 16:18 | P.PCN ---
Date of Procedure: 06/24/19 Operative Findings: PERCUTANEOUS PERIPHERAL INTERVENTION Performing physician: Bobby Stone M.D., [facility] Procedure performed: 1. Selective left below the knee angiogram/left popliteal angiogram/left SFA angiogram/right common femoral artery angiogram 2. Successful crossing chronic total occlusion of the left SFA 3. An atherectomy of the left SFA using the orbital atherectomy device from I 4. Intravascular ultrasound of the left SFA 5. Successful stenting of the mid left SFA using 6.0 x 140 mm Zilver drug-coated stent with an excellent angiographic results 6. Successful balloon angioplasty of the proximal left SFA using 6.0 x 40 mm drug-coated balloon with an excellent angiographic results Indication: This is a pleasant 69-year-old gentleman with history of infestation of disease, hypertension, dyslipidemia, was experiencing bilateral lower extremities intermittent claudication. He underwent a peripheral angiogram using CO2 a few weeks ago and that revealed occluded bilateral SFA. Because of that he was brought today to undergo balloon angioplasty of the left SFA. Approach: Right common femoral artery. Complication: None Level of sedation: Moderate with sedation duration one hour and 37 minutes Procedure description: After obtaining an informed consent the patient was brought to the cardiac orthodontic laboratory technician. The right common femoral artery was cannulated using micropuncture technique under ultrasound guidance, the micropuncture wire passed easily then I placed a 6-Indonesian 11 cm sheath at the level of the right common femoral artery. At that point anticoagulation was initiated using heparin with the patient was given a weight-based heparin where the patient was given 7000 use of heparin IV with continuous ACT monitoring throughout the procedure. Subsequently I did selective left SFA using 035 glide advantage wire with a backup support of 5-Indonesian rim catheter. After that I did exchange my 11 cm 6- Indonesian sheath into 70 cm 6-Indonesian sheath using the all 35 glide advantage wire. The tip of the long sheath was positioned at the level of the left common femoral artery. Please note that I predilated using 5-Indonesian dilator and then 7-Indonesian dilator before I placed the 11 cm 6-Indonesian sheath in the right common femoral artery. Subsequently I did cross the chronic total occlusion of the left popliteal using 018 Gold tip Glidewire with a backup support of 018 CXI catheter. I advanced the catheter across the chronic total occlusion to be below the knee at the level of the left popliteal. I did selective left below the knee angiogram which revealed one vessel run off with a peroneal artery. Subsequently I did intravascular ultrasound of the left SFA which revealed a diameter about 5.5-6 mm was multiple area of severe stenosis. I did atherectomy of the left SFA using the orbital atherectomy device. I did atherectomy of the whole left SFA under local, medial, and high-speed. After that I did balloon angioplasty of the left SFA using 5 mm by to 50 mm balloon which showed adequate angiographic results in the distal left SFA but inadequate angiographic results in the proximal and mid left SFA. I did stent the mid left SFA using 6.0 x 140 mm Zilver PTX drug-coated stent where the stent was positioned under fluoroscopy guidance and deployed under fluoroscopy guidance. The stent was postdilated using 5 mm balloon. For the very proximal left SFA I did balloon angioplasty again this time using 6.0 x 40 mm drug-coated balloon which was inflated under 6 allyson for 30 minutes. The following angiogram showed excellent angiographic results. Subsequently I did exchange my long sheath into short sheath using 035 glide advantage wire. Finally I did selective right common femoral artery angiogram. The procedure was completed without any complication Postprocedure management: 1. Dual antiplatelet therapy 2. Risk factors modifications 3. Follow-up with the patient
[2019-06-24 16:28] LABS: Glucose,Whole Blood 81 mg/dL (75-99)
--- NOTE | 2019-06-24 17:08 | IR ---
Fluoroscopy HISTORY: Pain 38.2 minutes fluoroscopy time supplied to the referring clinician. 732 intraoperative C-arm images d ocument the procedure. See dictated report from cardiology.
[2019-06-24] MEDS: hydrALAZINE HCL 25 MG TAB PO SCH ×2 (18:02→22:07)
[2019-06-24] MEDS: FERROUS SULFATE 325 MG TAB PO SCH ×2 (18:02→22:07)
[2019-06-24 19:03] VITALS: BMI 29.8
[2019-06-24] MEDS ORDERED: ATROPINE SULFATE 0.1 MG/ML 10ML SYRINGE ONE (19:58)
[2019-06-24] MEDS: HYDROmorphone 1 MG/ML 1 ML SYRINGE IVP PRN (20:28)
[2019-06-24] MEDS ORDERED: INSULIN DETEMIR (LEVEMIR) 100 UNIT/ML SYR SQ SCH (21:00)
[2019-06-24] MEDS ORDERED: ATORVASTATIN 20 MG TAB PO SCH (21:00)
[2019-06-24] MEDS ORDERED: MELATONIN 5 MG TABLET PO SCH (21:00)
[2019-06-24] MEDS ORDERED: FAMOTIDINE 20 MG TAB PO SCH (21:00)
[2019-06-24] MEDS ORDERED: ASPIRIN 81 MG PO SCH (21:00)
[2019-06-24 21:26] LABS: Glucose,Whole Blood 104 mg/dL (75-99)
[2019-06-24] MEDS: GABAPENTIN 300 MG CAP PO SCH (22:06)
[2019-06-24] MEDS: METOPROLOL TARTRATE 25 MG TAB PO SCH (22:10)
[2019-06-25 04:21] VITALS: RESP 18
[2019-06-25 06:20] LABS: Glucose,Whole Blood 66 mg/dL (75-99)
[2019-06-25 06:36] LABS: Glucose,Whole Blood 76 mg/dL (75-99)
[2019-06-25 06:37] LABS: Basophils % (A) 0 %; Eosinophils % (A) 0 %; HCT 31.2 % (39.0-53.0); Hypochromasia Slight; Lymphocytes # (A) 0.8 k/uL (1.0-4.8); Lymphocytes % (A) 8 %; MCH 32.1 pg (25.0-35.0); MCHC 32.1 g/dL (31.0-37.0); Mean Platelet Volume 7.7; Monocytes # (A) 0.5 k/uL (0-1.0); Monocytes % (A) 5 %; Neutrophils # (A) 8.5 k/uL (1.3-7.7); Neutrophils % (A) 85 %; Platelet Count 300 k/uL (150-450); RBC 3.12 m/uL (4.30-5.90); RDW 13.4 % (11.5-15.5)
[2019-06-25 06:47] LABS: Calcium 8.8 mg/dL (8.4-10.2); Potassium 4.6 mmol/L (3.5-5.1)
[2019-06-25] MEDS: HYDROmorphone 1 MG/ML 1 ML SYRINGE IVP PRN (08:15)
[2019-06-25] MEDS: GABAPENTIN 300 MG CAP PO SCH (08:17)
[2019-06-25] MEDS: FERROUS SULFATE 325 MG TAB PO SCH (08:17)
[2019-06-25] MEDS: METOPROLOL TARTRATE 25 MG TAB PO SCH (08:17)
[2019-06-25] MEDS: hydrALAZINE HCL 25 MG TAB PO SCH (08:17)
[2019-06-25 08:39] VITALS: BP 166/77; PULSE 63; TEMP 97.9
[2019-06-25] MEDS ORDERED: CLOPIDOGREL 75 MG TAB PO SCH (09:00)
[2019-06-25] MEDS ORDERED: ASCORBIC ACID 500 MG TAB PO SCH (09:00)
[2019-06-25] MEDS ORDERED: CYANOCOBALAMIN 500 MCG TAB PO SCH (09:00)
[2019-06-25] MEDS ORDERED: amLODIPine 5 MG TAB PO SCH (09:00)
[2019-06-25] MEDS ORDERED: ISOSORBIDE MONONITRATE ER 60 MG TAB.ER.24H PO SCH (09:00)
[2019-06-25 11:49] LABS: Glucose,Whole Blood 226 mg/dL (75-99)
[2019-06-25] MEDS ORDERED: glipiZIDE 5 MG TAB PO SCH (12:30)
[2019-07-05] MEDS ORDERED: ERGOCALCIFEROL 50,000 UNIT CAP PO SCH (09:00)
== END 2019-06-25 11:47 | disposition home or self-care (01) ==
LOC: CATHCVL 12:22 → 3SCARD 16:26 → CATHCVL 06-25 11:47
PROVIDERS: ATTEND Internal Medicine Interventional Cardiology
DX: I70.212 Atherosclerosis of native arteries of extremities with intermittent claudication, left leg (principal); I70.92 Chronic total occlusion of artery of the extremities; F17.210 Nicotine dependence, cigarettes, uncomplicated; E11.51 Type 2 diabetes mellitus with diabetic peripheral angiopathy without gangrene; I12.9 Hypertensive chronic kidney disease with stage 1 through stage 4 chronic kidney disease, or unspecified chronic kidney disease; E11.22 Type 2 diabetes mellitus with diabetic chronic kidney disease; N18.9 Chronic kidney disease, unspecified; Z79.4 Long term (current) use of insulin; I25.10 Atherosclerotic heart disease of native coronary artery without angina pectoris; E78.5 Hyperlipidemia, unspecified; Z79.82 Long term (current) use of aspirin; Z79.899 Other long term (current) drug therapy
CPT/HCPCS: 37227; 37252; 80053; 80048; 85025 ×2; C1894; C1714; C1769 ×6; C1725 ×3; C1753; C2623; C1874; J2250; J0360; J2001; J3010; J1170 ×2; J1644; Q9966

== ENCOUNTER 2019-09-28 08:56 | Day surgery (SDC) | payer OTHER ==
[2019-09-25 09:21] VITALS: BMI 31.0
[~2019-09-28 08:56] MED LIST changes: -ALPRAZolam 0.5 MG TAB PO PRN; -ZOLPIDEM 5 MG TAB PO PRN
[2019-09-28 09:33] LABS: Glucose,Whole Blood 117 mg/dL (75-99)
[2019-09-28] MEDS ORDERED: SODIUM CHLORIDE 0.9% 1,000 ML IV ONE (09:36)
[2019-09-28] MEDS: MIDAZOLAM 2 MG/2 ML VIAL IV ONE ×2 (10:06→10:16)
[2019-09-28] MEDS ORDERED: LIDOCAINE 1% INJ 10MG/ML (20 ML MDV) SQ ONE (10:10)
[2019-09-28] MEDS: fentaNYL (PF) 50 MCG/ML 2 ML AMP IV ONE ×2 (10:16→10:53)
[2019-09-28] MEDS: HEPARIN SODIUM 1,000 UN/ML (10ML VL) IV ONE ×2 (10:16→11:01)
[2019-09-28] MEDS ORDERED: HYDROmorphone 1 MG/ML 1 ML SYRINGE IVP ONE (11:35)
[2019-09-28] MEDS ORDERED: CLOPIDOGREL 75 MG TAB PO ONE (11:37)
[2019-09-28] MEDS ORDERED: NITROGLYCERIN 1000MCG/10ML SYRINGE INTRAARTER ONE (11:42)
[2019-09-28] MEDS ORDERED: niCARdipine Syringe (1,000 mcg/10 mL) INTRAARTER ONE (11:42)
[2019-09-28] MEDS ORDERED: IOPAMIDOL-250 50ML BTL INTRAARTER ONE (11:48)
[2019-09-28] MEDS ORDERED: SODIUM CHLORIDE 0.9% 1,000 ML in EMPTY BAG 1 BAG IV SCH (12:00)
[2019-09-28] MEDS ORDERED: glipiZIDE 5 MG TAB PO SCH (12:30)
[2019-09-28] MEDS ORDERED: HYDROmorphone 1 MG/ML 1 ML SYRINGE ONE (14:12)
[2019-09-28 16:06] VITALS: RESP 18
[2019-09-28 16:32] LABS: Glucose,Whole Blood 249 mg/dL (75-99)
[2019-09-28] MEDS: FERROUS SULFATE 325 MG TAB PO SCH ×2 (17:35→19:40)
[2019-09-28] MEDS: hydrALAZINE HCL 25 MG TAB PO SCH ×2 (17:35→19:39)
[2019-09-28] MEDS: GABAPENTIN 300 MG CAP PO SCH (19:39)
[2019-09-28] MEDS: METOPROLOL TARTRATE 25 MG TAB PO SCH (19:40)
[2019-09-28] MEDS: HYDROmorphone 0.5 MG/0.5 ML SYRINGE IVP PRN (19:41)
[2019-09-28 20:48] LABS: Glucose,Whole Blood 240 mg/dL (75-99)
[2019-09-28] MEDS ORDERED: INSULIN DETEMIR (LEVEMIR) 100 UNIT/ML SYR SQ SCH (21:00)
[2019-09-28] MEDS ORDERED: ASPIRIN 81 MG PO SCH (21:00)
[2019-09-28] MEDS ORDERED: MELATONIN 5 MG TABLET PO SCH (21:00)
[2019-09-28] MEDS ORDERED: ATORVASTATIN 20 MG TAB PO SCH (21:00)
[2019-09-29] MEDS: HYDROmorphone 0.5 MG/0.5 ML SYRINGE IVP PRN (05:11)
[2019-09-29 06:30] LABS: Glucose,Whole Blood 141 mg/dL (75-99)
[2019-09-29 06:48] LABS: Basophils # (A) 0.1 k/uL (0-0.2); Basophils % (A) 1 %; Eosinophils # (A) 0.1 k/uL (0-0.7); Eosinophils % (A) 1 %; HCT 30.4 % (39.0-53.0); HGB 9.6 gm/dL (13.0-17.5); Lymphocytes # (A) 0.8 k/uL (1.0-4.8); Lymphocytes % (A) 8 %; MCH 31.8 pg (25.0-35.0); MCHC 31.6 g/dL (31.0-37.0); MCV 100.9 fL (80.0-100.0); Macrocytosis Slight; Mean Platelet Volume 9.1; Monocytes # (A) 0.5 k/uL (0-1.0); Monocytes % (A) 5 %; Neutrophils # (A) 8.5 k/uL (1.3-7.7); Neutrophils % (A) 84 %; Platelet Count 290 k/uL (150-450); RBC 3.02 m/uL (4.30-5.90); RDW 13.7 % (11.5-15.5); WBC 10.1 k/uL (3.8-10.6)
--- NOTE | 2019-09-29 06:55 | AN ---
ANGIOGRAPHY REPORT PERCUTANEOUS PERIPHERAL INTERVENTION: DATE OF SERVICE: September 28, 2019. PERFORMING PHYSICIAN: Bobby Stone MD. PROCEDURE PERFORMED: 1. Right lower extremity angiogram. 2. Successful crossing chronic total occlusion of the right SFA. 3. An atherectomy of the right SFA using the orbital atherectomy device from CSI and using 1.5 mm dona. 4. Intravascular ultrasound, IVUS, of the right SFA. 5. Successful balloon angioplasty of the mid right SFA using 6 x 120 mm drug-coated balloon with an excellent angiographic result. 6. Successful stenting of the proximal right SFA using 7 x 140 mm Zilver PTX drug- coated stent with an excellent angiographic result. INDICATION: This is a very pleasant 69-year-old gentleman with end-stage renal disease, who was experiencing bilateral lower extremities intermittent claudication and underwent a peripheral angiogram recently and that revealed occluded bilateral SFA. He underwent a MD PHYSICIAN DERMATOLOGIST of the left SFA and was brought today to undergo a MD PHYSICIAN DERMATOLOGIST of the right SFA. APPROACH: Left common femoral artery. COMPLICATION: None. LEVEL OF SEDATION: Moderate with sedation length of 100 minutes. PROCEDURE DESCRIPTION: After obtaining an informed consent, the patient was brought to the cardiac cardiac catheterization technologist. The left common femoral artery was cannulated using micropuncture technique, the micropuncture wire passed easily then I placed a 6-Mongolian 11 cm sheath at the left common femoral artery. After that anticoagulation was initiated using heparin. The patient was given a total of 8000 units of heparin throughout the procedure with continuous ACT monitoring throughout the procedure. After that I did select the right profunda using 0.035 [place] Advantage wire with the backup support of 5-Mongolian Rim catheter. After that I did exchange my 11 cm 6-Mongolian sheath into 70 cm 6-Mongolian Raabe sheath using 0.035 Sel[place] Advantage wire and the tip of the long sheath was positioned at the right common femoral artery. At that point, I did right lower extremity angiogram. That revealed 2 vessels runoff below the knee with posterior tibial and peroneal and subtotally occluded anterior tibial as well as mild disease involving the right popliteal as well as severe disease involving the right mid SFA as well as occluded proximal occluded proximal right SFA. I was able to cross the chronic total occlusion of the right SFA using a 0.018 leos tip glidewire with the backup support of 0.018 CXI catheter. Subsequently I did exchange my 0.018 wire into 0.014 wire, where I did perform intravascular ultrasound which revealed that I was in subintimal space in the proximal portion and I was in the true lumen in the mid and distal portion. I did also get the diameter of the SFA about 6 to 7 mm. I did after that exchange my 0.[address] wire into 0.014 ViperWire using 0.018 CXI catheter. After that I did atherectomy of the right SFA in the mid portion only and not the proximal nor distal portion. I did that using the 1.5 mm solid dona which was turned on under low, medium, and high speed. Balloon angioplasty after that was performed on the right SFA using the 5 mm x 120 chocolate balloon. The following angiogram showed good angiographic results in the mid right SFA and still critical disease involving the proximal right SFA. Because of that, I did balloon angioplasty of the right SFA using this time 6 x 120 mm In.Pact drug coated balloon where the balloon was inflated under 6 atmospheres for 3 minutes. The following angiogram showed great angiographic results. For the proximal right SFA, I did deploy a 7 x 140 mm Zilver PTX drug-coated stent where the stent was positioned under fluoroscopy guidance and deployed under fluoroscopy guidance. The final angiogram showed great angiographic results and the procedure was completed without any complication. After that, I did exchange my long 70 cm sheath into short 11 cm sheath using 0.035 glide wire where and I did not perform left common femoral artery angiogram just for the sake of contrast. The procedure was completed without any complication. POSTPROCEDURE MANAGEMENT: 1. Dual antiplatelet therapy. 2. Risk factor modifications. 3. Follow up with the patient. MMODL / IJN: [id number] /
[2019-09-29 07:02] LABS: Calcium 8.6 mg/dL (8.4-10.2); Potassium 4.6 mmol/L (3.5-5.1)
[2019-09-29] MEDS ORDERED: PANTOPRAZOLE 40 MG TABLET PO SCH (07:30)
[2019-09-29 08:18] VITALS: BP 146/66; PULSE 71; TEMP 98
[2019-09-29] MEDS: FERROUS SULFATE 325 MG TAB PO SCH (08:20)
[2019-09-29] MEDS: hydrALAZINE HCL 25 MG TAB PO SCH (08:20)
[2019-09-29] MEDS: GABAPENTIN 300 MG CAP PO SCH (08:20)
[2019-09-29] MEDS: METOPROLOL TARTRATE 25 MG TAB PO SCH (08:20)
[2019-09-29] MEDS ORDERED: ISOSORBIDE MONONITRATE ER 60 MG TAB.ER.24H PO SCH (09:00)
[2019-09-29] MEDS ORDERED: CLOPIDOGREL 75 MG TAB PO SCH (09:00)
[2019-09-29] MEDS ORDERED: FUROSEMIDE 40 MG TAB PO SCH (09:00)
[2019-09-29] MEDS ORDERED: CYANOCOBALAMIN 500 MCG TAB PO SCH (09:00)
[2019-09-29] MEDS ORDERED: amLODIPine 5 MG TAB PO SCH (09:00)
[2019-09-29] MEDS ORDERED: ASCORBIC ACID 500 MG TAB PO SCH (09:00)
--- NOTE | 2019-09-29 10:49 | DS ---
DISCHARGE SUMMARY ADMISSION DATE: September 28, 2019 DISCHARGE DATE: September 29, 2019 BRIEF HISTORY: This is a pleasant 69-year-old gentleman who underwent yesterday successful recanalizing chronic total occlusion of the right SFA with an excellent angiographic result and without any complication from a left groin approach. The patient was seen this morning. He is doing well. He is going to be discharged home later on today and I will follow up with him in the office next week. MMODL / IJN: [id number] /
--- NOTE | 2019-09-29 12:11 | IR ---
Fluoroscopy HISTORY: Peripheral vascular occlusive disease 37.3 minutes fluoroscopy time supplied to the referring clinician. 914 intraoperative C-arm images d ocument the procedure. See dictated report from cardiology.
[2019-10-04] MEDS ORDERED: CALCITRIOL 0.25 MCG CAP PO SCH (09:00)
[2019-10-12] MEDS ORDERED: ERGOCALCIFEROL 50,000 UNIT CAP PO SCH (12:00)
== END 2019-09-29 10:42 | disposition home or self-care (01) ==
LOC: CATHCVL 08:56 → 3SCARD 11:47 → CATHCVL 09-29 10:42
PROVIDERS: ATTEND Internal Medicine Interventional Cardiology
DX: I70.213 Atherosclerosis of native arteries of extremities with intermittent claudication, bilateral legs (principal); I70.92 Chronic total occlusion of artery of the extremities; I25.10 Atherosclerotic heart disease of native coronary artery without angina pectoris; I12.9 Hypertensive chronic kidney disease with stage 1 through stage 4 chronic kidney disease, or unspecified chronic kidney disease; E11.22 Type 2 diabetes mellitus with diabetic chronic kidney disease; N18.6 End stage renal disease; E11.51 Type 2 diabetes mellitus with diabetic peripheral angiopathy without gangrene; E78.5 Hyperlipidemia, unspecified; F17.210 Nicotine dependence, cigarettes, uncomplicated; I77.89 Other specified disorders of arteries and arterioles; D64.9 Anemia, unspecified; Z95.828 Presence of other vascular implants and grafts; Z79.899 Other long term (current) drug therapy; Z79.82 Long term (current) use of aspirin; Z79.4 Long term (current) use of insulin; Z82.49 Family history of ischemic heart disease and other diseases of the circulatory system
CPT/HCPCS: 37227; 85347; 37252; 80048; 85025; C1894 ×2; C1714; C1769 ×7; C1753; C2623; C1725 ×2; C1874; J2250; J2001; J3010; J1644; J1170 ×3; Q9966

== ENCOUNTER → 2020-03-25 | Day surgery (SDC) | payer OTHER ==
[2020-03-22 11:54] VITALS: BMI 29.0
[~2020-03-25] MED LIST changes: -ALPRAZolam 0.25 MG TAB PO PRN; -ASPIRIN 325 MG TAB PO STA; +DEXAMETHASONE SOD PHOSPHATE 10 MG/ML 1 ML VIAL IV ONE; +ETOMIDATE 2 MG/ML 10 ML VIAL ONE; +HEPARIN SODIUM,PORCINE 100 UNIT/ML 5 ML VIAL IV ONE; +HYDROmorphone 0.5 MG/0.5 ML SYRINGE IVP PRN; +LACTATED RINGERS 1,000 ML IV SCH; +LIDOCAINE 1% (10MG/ML) FOR IV START INTRADERMA PRN; +LIDOCAINE 1% INJ 10MG/ML (20 ML MDV) SQ ONE; +MIDAZOLAM 2 MG/2 ML VIAL ONE; +ONDANSETRON 4 MG/2 ML VIAL IVP ONE; +ONDANSETRON 4 MG/2 ML VIAL ONE; +Pre Op ABX Message 1 EACH MISC MISCELLANE ONE; +SODIUM CHLORIDE 0.9% 1,000 ML IV ONE; -SODIUM CHLORIDE 0.9% 1,000 ML in EMPTY BAG 1 BAG IV ONE; +SODIUM CHLORIDE 0.9% 100 ML with ceFAZolin 2,000 MG IV ONE; +fentaNYL (PF) 50 MCG/ML 2 ML AMP ONE
[2020-03-25 10:03] LABS: Glucose,Whole Blood 107 mg/dL (75-99)
[2020-03-25 12:32] VITALS: TEMP 96.8
[2020-03-25 12:47] LABS: Glucose,Whole Blood 121 mg/dL (75-99)
--- NOTE | 2020-03-25 12:50 | P.OP ---
Date of Procedure: 03/25/20 Description of Procedure: Preoperative diagnosis: Need for multiple iron infusions, chronic anemia, chronic kidney disease Postoperative diagnosis: Same Procedure: [#1 ultrasound guided right internal jugular vein access #2 fluoroscopic assisted placement of subcutaneous Mediport] Surgeon: Jennifer Toth D.O. Anesthesia: Gen. LMA EBL: [Less than 5 mL] IV fluids: [See anesthesia records] Urine output: [None measured] Drains: [None] Complications: [None immediately apparent] Condition: [Stable to recovery] Operative indication and findings: [The patient is a 70-year-old male who presents to the office with a need for a port placement due to the need for multiple iron infusions for his chronic anemia. He has had a poor peripheral IV access and also has chronic kidney disease therefore it was recommended he have a port placed. Risks and benefits were discussed. He has a seemingly understood and were willing to proceed as such] Procedure in detail: [The patient was taken to the operative suite and placed in supine position. The bilateral neck and chest were prepped and draped in usual sterile fashion. A preprocedure timeout was performed, all parties were in agreement. The patient was placed in Trendelenburg position. The ultrasound utilized and the right internal jugular vein was identified. The skin overlying was anesthetized with 1% lidocaine plain. A cannulation needle was used and on first attempt there was return of dark venous, nonpulsatile blood. The guidewire was advanced into the inferior vena cava. The wire was removed. Attention was then turned towards the pocket and tunnel. A an incision was made proximal to 2 fingerbreadths below the clavicle. Is deepened through the subcutaneous tissues and a pocket was created with blunt dissection and electrocautery. This was made to allow the size for the 8-[place] port. That point the catheter was tunneled, using fluoroscopy was cut to size. It was attached to the port itself and flushed once more. The sheath was then placed over the wire under direct visualization. The wire and inner cannula removed leaving the tear-away sheath. The catheter was advanced. The tear-away sheath is removed. The catheter aspirated and flushed freely. It was then tacked in place to the pectoral fascia with 3-0 Prolene. It was placed in the skin and once more aspirated and flushed. A final fluoroscopic image was performed revealing a good trajectory with final resting place in the cavoatrial junction. The incision site of the neck was reapproximated with an interrupted suture of 4-0 Monocryl. The port site was approximated with interrupted 3-0 Vicryl in subcutaneous tissue. The skin was reapproximated with running 4-0 Monocryl in subcu together fashion. Skin glue and dressings were placed. The patient was transferred back to recovery in stable condition having tolerated the procedure well. A post operative chest x-ray is pending Plan - Discharge Summary Discharge Rx Participant: Yes New Discharge Prescriptions: No Action Metoprolol Tartrate [Lopressor] 25 mg PO BID Simvastatin [Zocor] 40 mg PO HS Ergocalciferol (Vitamin D2) [Vitamin D2] 50,000 unit PO Q14D Aspirin EC [Ecotrin Low Dose] 81 mg PO HS Ferrous Sulfate [Iron (65 MG Elemental)] 325 mg PO TID Isosorbide Mononitrate ER [Imdur] 60 mg PO DAILY hydrALAZINE HCL 25 mg PO TID Cyanocobalamin [Vitamin B-12] 500 mcg PO DAILY Insulin Glargine [Lantus] 30 unit SQ HS rOPINIRole HCL [Requip] 0.25 mg PO BID Gabapentin [Neurontin] 300 mg PO BID Ascorbic Acid [Vitamin C] 500 mg PO DAILY Melatonin 5 mg PO HS glipiZIDE [Glucotrol] 5 mg PO W/LUNCH amLODIPine [Norvasc] 5 mg PO DAILY calcitrioL [Rocaltrol] 0.25 mcg PO SANTOS Furosemide [Lasix] 40 mg PO DAILY Omeprazole [PriLOSEC] 20 mg PO -[facility] Sodium Bicarbonate 650 mg PO BID Discharge Medication List Ergocalciferol (Vitamin D2) [Vitamin D2] 50,000 unit PO Q14D 07/18/17 [History] Metoprolol Tartrate [Lopressor] 25 mg PO BID 07/18/17 [History] Simvastatin [Zocor] 40 mg PO HS 07/18/17 [History] Aspirin EC [Ecotrin Low Dose] 81 mg PO HS 02/10/18 [History] Ferrous Sulfate [Iron (65 MG Elemental)] 325 mg PO TID 02/10/18 [History] Isosorbide Mononitrate ER [Imdur] 60 mg PO DAILY 03/04/18 [History] Cyanocobalamin [Vitamin B-12] 500 mcg PO DAILY 09/23/18 [History] Insulin Glargine [Lantus] 30 unit SQ HS 09/23/18 [History] hydrALAZINE HCL 25 mg PO TID 09/23/18 [History] Gabapentin [Neurontin] 300 mg PO BID 01/09/19 [History] rOPINIRole HCL [Requip] 0.25 mg PO BID 01/09/19 [History] Ascorbic Acid [Vitamin C] 500 mg PO DAILY 05/22/19 [History] Melatonin 5 mg PO HS 05/22/19 [History] glipiZIDE [Glucotrol] 5 mg PO W/LUNCH 05/22/19 [History] amLODIPine [Norvasc] 5 mg PO DAILY 06/22/19 [History] calcitrioL [Rocaltrol] 0.25 mcg PO SANTOS 09/17/19 [History] Furosemide [Lasix] 40 mg PO DAILY 09/25/19 [History] Omeprazole [PriLOSEC] 20 mg PO AC-BRKFST 09/25/19 [History] Sodium Bicarbonate 650 mg PO BID 03/22/20 [History] Follow up Appointment(s)/Referral(s): Jennifer Toth DO [Primary Care Provider] - 2 Weeks ([address]) Activity/Diet/Wound Care/Special Instructions: activity as tolerated, may shower tomorrow. Discharge Disposition: HOME SELF-CARE
--- NOTE | 2020-03-25 12:55 | XR ---
EXAMINATION TYPE: XR chest 1V portable DATE OF EXAM: 03/25/2020 COMPARISON: 03/04/2018 HISTORY: Mediport catheter placement TECHNIQUE: Single frontal view of the chest is obtained. FINDINGS: Right-sided port seen with tip overlying the right atrial SVC junction. No sizable pneumot horax. Coarsened interstitium. Atherosclerotic change aorta. Heart mildly prominent. Biapical pleural thickening. Subsegmental basilar consolidation. IMPRESSION: 1. Mediport in good position with no sizable pneumothorax. 2. Correlate for chronic interstitial lung disease or interstitial pneumonitis.
[2020-03-25] MEDS: fentaNYL (PF) 50 MCG/ML 2 ML AMP IVP ONE ×2 (13:03→13:08)
[2020-03-25 13:40] VITALS: RESP 17
[2020-03-25 13:46] VITALS: BP 156/66; PULSE 78
--- NOTE | 2020-03-25 20:39 | FL ---
EXAMINATION TYPE: FL guided central line placement DATE OF EXAM: 03/25/2020 CLINICAL HISTORY: Mediport insertion TECHNIQUE: Fluoroscopy. COMPARISON: None. FINDINGS: Fluoroscopic guidance was provided during procedure for performing physician. A total of 5 seconds of fluoroscopic time was utilized during the procedure and 1 spot images was acquired. Plea se see operative report for additional details. IMPRESSION: As Above.
== END | disposition home or self-care (01) ==
LOC: OR 09:30
PROVIDERS: ATTEND Surgery
DX: E11.22 Type 2 diabetes mellitus with diabetic chronic kidney disease (principal); I12.9 Hypertensive chronic kidney disease with stage 1 through stage 4 chronic kidney disease, or unspecified chronic kidney disease; F17.200 Nicotine dependence, unspecified, uncomplicated; N18.9 Chronic kidney disease, unspecified; D63.1 Anemia in chronic kidney disease; I25.10 Atherosclerotic heart disease of native coronary artery without angina pectoris; Z80.9 Family history of malignant neoplasm, unspecified; Z79.82 Long term (current) use of aspirin; Z79.899 Other long term (current) drug therapy
CPT/HCPCS: 77001; 71045; 36561; 76937; C1788; J2250; J1642; J0690; J2001; J3010

== ENCOUNTER 2020-04-18 11:43 | Inpatient (IN) | payer OTHER, MEDICARE ==
[2020-04-18] MEDS ORDERED: IPRATROPIUM-ALBUTEROL 3 ML NEB INHALATION STA (11:55)
--- NOTE | 2020-04-18 12:09 | ED ---
Chest Pain HPI - General Chief Complaint: Chest Pain Stated Complaint: Chest pain Time Seen by Provider: 04/18/20 11:45 Source: patient, RN notes reviewed Mode of arrival: wheelchair Limitations: physical limitation - History of Present Illness Initial Comments: This is a 70-year-old male with a history of anemia who presents with chest pain shortness of breath going on for past 2 days he has exertional dyspnea and he states the pain in the chest was sharp today but it 1-2 days ago he had pain radiating up to his jaw was orthopnea. Patient does have a history of smoking years ago he believes he has COPD. He also states he was exposed to Agent [place] when he was in [place]. MD Complaint: chest pain, other - Related Data Home Medications Medication Instructions Recorded Confirmed Ergocalciferol (Vitamin D2) 50,000 unit PO Q14D 07/18/17 04/14/20 [Vitamin D2] Metoprolol Tartrate [Lopressor] 25 mg PO BID 07/18/17 04/14/20 Simvastatin [Zocor] 40 mg PO HS 07/18/17 04/14/20 Aspirin EC [Ecotrin Low Dose] 81 mg PO HS 02/10/18 04/14/20 Ferrous Sulfate [Iron (65 MG 325 mg PO TID 02/10/18 04/14/20 Elemental)] Isosorbide Mononitrate ER [Imdur] 60 mg PO DAILY 03/04/18 04/14/20 Cyanocobalamin [Vitamin B-12] 500 mcg PO DAILY 09/23/18 04/14/20 Insulin Glargine [Lantus] 30 unit SQ HS 09/23/18 04/14/20 hydrALAZINE HCL 25 mg PO TID 09/23/18 04/14/20 Gabapentin [Neurontin] 300 mg PO BID 01/09/19 04/14/20 rOPINIRole HCL [Requip] 0.25 mg PO BID 01/09/19 04/14/20 Ascorbic Acid [Vitamin C] 500 mg PO DAILY 05/22/19 04/14/20 Melatonin 5 mg PO HS 05/22/19 04/14/20 glipiZIDE [Glucotrol] 5 mg PO W/LUNCH 05/22/19 04/14/20 amLODIPine [Norvasc] 5 mg PO DAILY 06/22/19 04/14/20 calcitrioL [Rocaltrol] 0.25 mcg PO SANTOS 09/17/19 04/14/20 Furosemide [Lasix] 40 mg PO DAILY 09/25/19 04/14/20 Omeprazole [PriLOSEC] 20 mg PO AC-BRKFST 09/25/19 04/14/20 Sodium Bicarbonate 650 mg PO BID 03/22/20 04/14/20 Allergies Allergy/AdvReac Type Severity Reaction Status Date / Time Iodinated Contrast Media Allergy Unknown Verified 04/18/20 12:05 Iodine and Iodide Containing Allergy Unknown Verified 04/18/20 12:05 Produc Review of Systems ROS Statement: Those systems with pertinent positive or pertinent negative responses have been documented in the HPI. ROS Other: All systems not noted in ROS Statement are negative. EKG Findings - EKG Results: EKG: interpreted by [facility], sinus rhythm (Sinus rhythm rate is 74. Interval 146 QRS 96 QT/QTC 420/466 evidence of inferior infarct of undetermined age) Past Medical History Past Medical History: Coronary Artery Disease (CAD), Chest Pain / Angina, Diabetes Mellitus, GERD/Reflux, GI Bleed, Hyperlipidemia, Hypertension, Renal Disease, Vascular Disorder Additional Past Medical History / Comment(s): Insomnia, abdominal distention that comes and goes,hx partial sbo. epistaxis, sciatica, neuropathy lower GI bleed, benign colon polyp, IDDM type II, low back renal disease stage lV, past fx lt wrist, uti, anemia has had received iron infusions in past History of Any Multi-Drug Resistant Organisms: None Reported Past Surgical History: Cholecystectomy, Heart Catheterization Additional Past Surgical History / Comment(s): [facility] [place] wrist -sx re-set. Past Anesthesia/Blood Transfusion Reactions: No Reported Reaction Additional Past Anesthesia/Blood Transfusion Reaction / Comment(s): Bld transfusion in Sep per Past Psychological History: Depression, PTSD Smoking Status: Current every day smoker Past Alcohol Use History: None Reported Past Drug Use History: Marijuana - Past Family History Father History Unknown: Yes Mother Family Medical History: Cancer Additional Family Medical History / Comment(s): Mother from metastatic cancer pelvic origin. General Exam - General Exam Comments Initial Comments: This is a well-developed well-nourished awake alert oriented times 3 male who does appear pale Limitations: physical limitation General appearance: alert, in no apparent distress Head exam: Present: atraumatic, normocephalic, normal inspection Eye exam: Present: normal appearance, PERRL, EOMI. Absent: scleral icterus, conjunctival injection, periorbital swelling ENT exam: Present: normal exam, mucous membranes moist Neck exam: Present: normal inspection. Absent: tenderness, meningismus, lymphadenopathy Respiratory exam: Present: decreased breath sounds. Absent: respiratory distress, wheezes, rales, rhonchi, stridor Cardiovascular Exam: Present: regular rate, normal rhythm, normal heart sounds. Absent: systolic murmur, diastolic murmur, rubs, gallop, clicks GI/Abdominal exam: Present: soft, normal bowel sounds. Absent: distended, tenderness, guarding, rebound, rigid Extremities exam: Present: normal inspection, full ROM, normal capillary refill. Absent: tenderness, pedal edema, joint swelling, calf tenderness Back exam: Present: normal inspection Neurological exam: Present: alert, oriented X3, CN II-XII intact Psychiatric exam: Present: normal affect, normal mood Skin exam: Present: warm, dry, intact, pallor. Absent: rash Course Vital Signs 04/18/20 04/18/20 04/18/20 11:55 12:08 12:54 Temperature 98.5 F Pulse Rate 72 65 Respiratory 24 20 Rate Blood Pressure 161/84 O2 Sat by Pulse 98 Oximetry 04/18/20 04/18/20 13:03 13:11 Temperature Pulse Rate 61 58 L Respiratory 18 Rate Blood Pressure 151/68 O2 Sat by Pulse 97 Oximetry - Reevaluation(s) Reevaluation #1: 04/18/20 14:01 Evaluation patient reveals these is feeling somewhat improved. She'll have some chest pain however. He does reiterate the pain is been going on for about a week he did have some radiation to his jaw. Reevaluation #2: 04/18/20 14:02 Repeat EKG shows normal sinus rhythm a 64. Interval 144 QRS 90 QT since QTC 498/42 no change from the previous done today. Chest Pain MDM - MDM X-ray reviewed evidence of some atelectasis in the right lower lobe with effusion I did discuss the patient with Dr. Salcedo who was in the emergency department. Patient be admitted I also discussed case with Dr. Vazquez patient will be started on low-dose heparin cereal CBCs also a blood transfusion of 1 unit after discussion with the admitting physician. Critical Care Time Critical Care Time: Yes Total Critical Care Time: 39 Critical Care Time: 39 to critical care time which included initial presentation with history physical labs x-rays multiple reevaluation the patient discussed with the admitting physician the consult review of old charting and documentation the above. Disposition Clinical Impression: Non-ST elevation myocardial infarction (NSTEMI), Renal insufficiency, CHF (congestive heart failure), Anemia Disposition: ADMITTED IP TO THIS HOSP Condition: Fair Referrals: [facility],Clinic [Primary Care Provider] - 1-2 days
--- NOTE | 2020-04-18 12:26 | XR ---
EXAMINATION TYPE: XR chest 2V DATE OF EXAM: 04/18/2020 COMPARISON: Prior chest x-ray 03/25/2020 HISTORY: Difficulty breathing, chest pain and cough TECHNIQUE: Frontal and lateral views of the chest are obtained. FINDINGS: Right jugular central venous catheter is stable. Heart size is unchanged. There has been i nterval development of patchy increased density at the right lung base. No evident pneumothorax. Cent ral vascularity and interstitium appear prominently. There are overlying cardiac leads. No evident pn eumothorax. IMPRESSION: Possible right lower lobe atelectasis or pneumonia and associated effusion. Prominence o f interstitium is again seen.
[2020-04-18 12:35] LABS: Basophils % (A) 0 %; Eosinophils # (A) 0.1 k/uL (0-0.7); Eosinophils % (A) 1 %; HCT 25.1 % (39.0-53.0); HGB 7.8 gm/dL (13.0-17.5); Hypochromasia Moderate; Lymphocytes # (A) 0.8 k/uL (1.0-4.8); Lymphocytes % (A) 8 %; MCH 30.5 pg (25.0-35.0); MCHC 31.2 g/dL (31.0-37.0); MCV 97.5 fL (80.0-100.0); Mean Platelet Volume 8.2; Monocytes # (A) 0.5 k/uL (0-1.0); Monocytes % (A) 5 %; Neutrophils # (A) 9.5 k/uL (1.3-7.7); Neutrophils % (A) 85 %; Platelet Count 429 k/uL (150-450); RBC 2.57 m/uL (4.30-5.90); RDW 15.2 % (11.5-15.5); WBC 11.2 k/uL (3.8-10.6)
[2020-04-18 12:46] LABS: INR 0.9 (<1.2); Partial Thromboplastin Time 27.1 sec (22.0-30.0); Prothrombin Time 9.5 sec (9.0-12.0)
[2020-04-18 12:49] LABS: Albumin 3.1 g/dL (3.5-5.0); Calcium 8.4 mg/dL (8.4-10.2); Total Bilirubin 0.4 mg/dL (0.2-1.3); Total Protein 5.8 g/dL (6.3-8.2)
[2020-04-18 12:51] LABS: Potassium 4.2 mmol/L (3.5-5.1)
[2020-04-18 13:00] LABS: D-Dimer 0.71 mg/L FEU (<0.60)
[2020-04-18] MEDS ORDERED: NITROGLYCERIN OINT 1 INCH/GM PACKET TOPICAL STA (13:29)
[2020-04-18] MEDS ORDERED: HEPARIN SODIUM,PORCINE 5,000 UNIT/ML 1 ML VIAL IV ONE (14:06)
[2020-04-18] MEDS: HEPARIN SOD,PORK IN 0.45% NACL 25,000 UNIT in 0.45% NACL 1 250ML.BAG IV SCH (14:52)
[2020-04-18] MEDS ORDERED: FUROSEMIDE 10 MG/ML 4 ML VIAL IV STA (14:55)
--- NOTE | 2020-04-18 14:59 | P.CRDCN ---
History of Present Illness Consult date: 04/18/20 History of present illness: CHIEF COMPLAINT: Chest pain HISTORY OF PRESENT ILLNESS: 70-year-old male with a history of peripheral arterial disease, hypertension, hyperlipidemia, carotid stenosis with stent placement, chronic kidney disease, chronic anemia, diabetes mellitus, and nicotine dependence who presented to the emergency room with a chief complaint of chest pain. Patient states he follows with Dr. Sims in the office but believes he has only seen him once. He follows at the [facility] for his primary care. Patient states he has been having chest pain for approximately one week. He states the pain comes and goes. He reports the last episode of chest pain he had went into his jaw and shoulder and down his left arm. He states he has been feeling short of breath for the past week. He has been sleeping upright at night and has dyspnea when laying flat. He also reports increased lower extremity edema. He states about a week or 2 ago he ran out of his Lasix. He states he went approximately 5 days without taking it. He also reports once the [facility] physician sent him a prescription for his Lasix but did not send him enough to take it BID like he had been taking it, so he was only taking it once a day. Patient believes he had a cardiac catheterization performed a few years ago at [place]. He states he was told he had some blockages but nothing significant at that time to stent. DIAGNOSTICS: EKG reveals sinus rhythm. Heart rate 74 Chest xray possible right lower lobe atelectasis or pneumonia and associated effusion. Laboratory data: WBC 11.2. Hemoglobin 7.8. Platelet count 429. Sodium 137. Potassium 4.2. BUN 42. Creatinine 2.99. BNP 8730. Troponin 6.610 Current home cardiac medications include hydralazine 25 mg 3 times a day, Norvasc 5 mg daily, Zocor 40 mg daily, Lopressor 25 mg twice a day, Imdur 60 mg daily, Lasix 40 mg daily, and aspirin 81 mg daily REVIEW OF SYSTEMS: CONSTITUTIONAL: Denies fever or chills. HEENT: Denies blurred vision, vision changes, or eye pain. Denies hemoptysis CARDIOVASCULAR: Reports chest pain. Reports orthopnea. Denies palpitations. Reports increased lower extremity swelling. RESPIRATORY: Reports shortness of breath. GASTROINTESTINAL: Denies abdominal pain. Denies nausea or vomiting. HEMATOLOGIC: Denies bleeding disorders. GENITOURINARY: Denies any blood in urine. SKIN: Denies pruitis. Denies rash. PHYSICAL EXAM: VITAL SIGNS: Reviewed. GENERAL: Well-developed in no acute distress. Mild respiratory distress during examination and with conversation. HEENT: Head is normocephalic. Pupils are equal, round. Sclerae anicteric. Mucous membranes of the mouth are moist. Neck supple. No JVD or thyromegaly LUNGS: Respirations even and unlabored. Lung sounds diminished. HEART: Regular rate and rhythm. S1 and S2 heard. Systolic murmur. ABDOMEN: Soft. Nondistended. Nontender. EXTREMITIES: Normal range of motion. No clubbing or cyanosis. Peripheral pulses intact. 3+ bilateral lower extremity edema NEUROLOGIC: Awake and alert. Oriented x 3. ASSESSMENT: 1. Non-ST elevation myocardial infarction 2. Acute exacerbation of diastolic heart failure, most recent echo from 2019 shows EF 55-60%, BNP 8730 3. Acute on chronic anemia 4. Chronic kidney disease 5. History of peripheral vascular disease 6. History of carotid stenosis with previous stent to right carotid artery 7. Hypertension 8. Hyperlipidemia 9. Ongoing tobacco dependence, patient smokes 1 pack per day PLAN: -Patient to receive RBC transfusion per ER physician -40mg lasix IVP at beginning of RBC transfusion. Then continue with 40mg PO daily dosing -Monitor hemoglobin -IV heparin drip ordered per Dr. Vazquez -Monitor kidney function -Daily weights and accurate I&O -Trend troponins -Echocardiogram ordered. Await results -Further recommendations pending patient course Nurse practitioner note has been reviewed by physician. Signing provider agrees with the documented findings, assessment, and plan of care. Past Medical History Past Medical History: Coronary Artery Disease (CAD), Chest Pain / Angina, Diabetes Mellitus, GERD/Reflux, GI Bleed, Hyperlipidemia, Hypertension, Renal Disease, Vascular Disorder Additional Past Medical History / Comment(s): Insomnia, abdominal distention that comes and goes,hx partial sbo. epistaxis, sciatica, neuropathy lower GI bleed, benign colon polyp, IDDM type II, low back renal disease stage lV, past fx lt wrist, uti, anemia has had received iron infusions in past History of Any Multi-Drug Resistant Organisms: None Reported Past Surgical History: Cholecystectomy, Heart Catheterization Additional Past Surgical History / Comment(s): R carotid stent done in [place], EGD/colonoscopyDeceer 2017, fx lt wrist -sx re-set. Past Anesthesia/Blood Transfusion Reactions: No Reported Reaction Additional Past Anesthesia/Blood Transfusion Reaction / Comment(s): Bld transfusion in Sep per Past Psychological History: Depression, PTSD Smoking Status: Current every day smoker Past Alcohol Use History: None Reported Past Drug Use History: Marijuana - Past Family History Father History Unknown: Yes Mother Family Medical History: Cancer Additional Family Medical History / Comment(s): Mother from metastatic cancer pelvic origin. Medications and Allergies Home Medications Medication Instructions Recorded Confirmed Type Ergocalciferol (Vitamin D2) 50,000 unit PO Q14D 07/18/17 04/14/20 History [Vitamin D2] Metoprolol Tartrate [Lopressor] 25 mg PO BID 07/18/17 04/14/20 History Simvastatin [Zocor] 40 mg PO HS 07/18/17 04/14/20 History Aspirin EC [Ecotrin Low Dose] 81 mg PO HS 02/10/18 04/14/20 History Ferrous Sulfate [Iron (65 MG 325 mg PO TID 02/10/18 04/14/20 History Elemental)] Isosorbide Mononitrate ER [Imdur] 60 mg PO DAILY 03/04/18 04/14/20 History Cyanocobalamin [Vitamin B-12] 500 mcg PO DAILY 09/23/18 04/14/20 History Insulin Glargine [Lantus] 30 unit SQ HS 09/23/18 04/14/20 History hydrALAZINE HCL 25 mg PO TID 09/23/18 04/14/20 History Gabapentin [Neurontin] 300 mg PO BID 01/09/19 04/14/20 History rOPINIRole HCL [Requip] 0.25 mg PO BID 01/09/19 04/14/20 History Ascorbic Acid [Vitamin C] 500 mg PO DAILY 05/22/19 04/14/20 History Melatonin 5 mg PO HS 05/22/19 04/14/20 History glipiZIDE [Glucotrol] 5 mg PO W/LUNCH 05/22/19 04/14/20 History amLODIPine [Norvasc] 5 mg PO DAILY 06/22/19 04/14/20 History calcitrioL [Rocaltrol] 0.25 mcg PO SANTOS 09/17/19 04/14/20 History Furosemide [Lasix] 40 mg PO DAILY 09/25/19 04/14/20 History Omeprazole [PriLOSEC] 20 mg PO AC-BRKFST 09/25/19 04/14/20 History Sodium Bicarbonate 650 mg PO BID 03/22/20 04/14/20 History Allergies Allergy/AdvReac Type Severity Reaction Status Date / Time Iodinated Contrast Media Allergy Unknown Verified 04/18/20 12:05 Iodine and Iodide Containing Allergy Unknown Verified 04/18/20 12:05 Produc Physical Exam Vitals: Vital Signs Temp Pulse Resp BP Pulse Ox 04/18/20 13:11 58 L 18 151/68 97 04/18/20 13:03 61 04/18/20 12:54 65 04/18/20 12:08 20 04/18/20 11:55 98.5 F 72 24 161/84 98 Intake and Output 04/17/20 04/18/20 04/18/20 22:59 06:59 14:59 Other: Weight 94.347 kg Results 04/18/20 12:08 04/18/20 12:08 Cardiac Enzymes 04/18/20 04/18/20 Range/Units 12:08 12:08 AST 28 (17-59) U/L Troponin I 6.610 H* (0.000-0.034) ng/mL Coagulation 04/18/20 Range/Units 12:08 PT 9.5 (9.0-12.0) sec APTT 27.1 (22.0-30.0) sec CBC 04/18/20 Range/Units 12:08 WBC 11.2 H (3.8-10.6) k/uL RBC 2.57 L (4.30-5.90) m/uL Hgb 7.8 L (13.0-17.5) gm/dL Hct 25.1 L (39.0-53.0) % Plt Count 429 (150-450) k/uL Comprehensive Metabolic Panel 04/18/20 Range/Units 12:08 Sodium 137 (137-145) mmol/L Potassium 4.2 (3.5-5.1) mmol/L Chloride 104 (98-107) mmol/L Carbon Dioxide 24 (22-30) mmol/L BUN 42 H (9-20) mg/dL Creatinine 2.99 H (0.66-1.25) mg/dL Glucose 152 H (74-99) mg/dL Calcium 8.4 (8.4-10.2) mg/dL AST 28 (17-59) U/L ALT 11 (4-49) U/L Alkaline Phosphatase 90 (38-126) U/L Total Protein 5.8 L (6.3-8.2) g/dL Albumin 3.1 L (3.5-5.0) g/dL Current Medications Generic Name Dose Route Start Last Admin Trade Name Freq PRN Reason Stop Dose Admin Amlodipine Besylate 5 mg 04/19/20 09:00 Norvasc PO DAILY [facility] Ascorbic Acid 500 mg 04/19/20 09:00 Vitamin C PO DAILY [facility] Aspirin 325 mg 04/19/20 09:00 Aspirin PO DAILY [facility] Atorvastatin Calcium 20 mg 04/18/20 21:00 Lipitor PO HS [facility] Calcitriol 0.25 mcg 04/24/20 14:10 Rocaltrol PO SANTOS [facility] Cyanocobalamin 500 mcg 04/19/20 09:00 Vitamin B-12 PO DAILY [facility] Ergocalciferol 50,000 unit 04/18/20 14:15 Vitamin D2 PO Q14D [facility] Ferrous Sulfate 325 mg 04/18/20 16:00 Feosol PO TID [facility] Furosemide 40 mg 04/19/20 09:00 Lasix PO DAILY [facility] Gabapentin 300 mg 04/18/20 21:00 Neurontin PO BID [facility] Glipizide 5 mg 04/19/20 12:30 Glucotrol PO W/LUNCH [facility] Hydralazine HCl 25 mg 04/18/20 16:00 Apresoline PO TID [facility] Heparin Sodium/Sodium Chloride 250 mls @ 10 mls/hr 04/18/20 14:15 25,000 unit/ Sodium Chloride IV .Q24H [facility] Protocol 10.599 UNITS/KG/HR Insulin Aspart 0 unit 04/18/20 17:30 Novolog SQ ACHS [facility] Protocol Insulin Detemir 30 unit 04/18/20 21:00 Levemir SQ HS [facility] Isosorbide Mononitrate 60 mg 04/19/20 09:00 Imdur PO DAILY [facility] Melatonin 5 mg 04/18/20 21:00 Melatonin PO HS [facility] Metoprolol Tartrate 25 mg 04/18/20 21:00 Lopressor PO BID [facility] Nitroglycerin 0.4 mg 04/18/20 14:06 Nitrostat SUBLINGUAL Q5M PRN Chest Pain Nitroglycerin 1 inch 04/18/20 18:00 Nitro-Bid Oint TOPICAL 04/18/20 19:00 Q6HR [facility] Pantoprazole Sodium 40 mg 04/19/20 07:30 Protonix PO AC-BRKFST [facility] Ropinirole HCl 0.25 mg 04/18/20 21:00 Requip PO BID [facility] Sodium Bicarbonate 650 mg 04/18/20 21:00 Sodium Bicarbonate Tab PO BID [facility] Intake and Output 04/17/20 04/18/20 04/18/20 22:59 06:59 14:59 Other: Weight 94.347 kg Patient Weight 04/19/20 06:59 Weight 94.347 kg 04/18/20 12:08 04/18/20 12:08
[2020-04-18] MEDS: hydrALAZINE HCL 25 MG TAB PO SCH ×2 (15:47→20:34)
[2020-04-18] MEDS: FERROUS SULFATE 325 MG TAB PO SCH ×2 (15:47→20:34)
[2020-04-18 16:55] LABS: Glucose,Whole Blood 163 mg/dL (75-99)
[2020-04-18] MEDS: INSULIN ASPART (NovoLOG) 100 UNIT/ML VIAL SQ SCH ×2 (17:15→20:33)
[2020-04-18] MEDS ORDERED: NITROGLYCERIN OINT 1 INCH/GM PACKET TOPICAL SCH (18:00)
--- NOTE | 2020-04-18 18:03 | P.HPIM ---
History of Present Illness This is a pleasant 70 years old male with past medical history of diabetes mellitus, hyperlipidemia, hypertension, GI bleed, chronic kidney disease stage IV, iron deficiency anemia and he follows with Dr. Singletary and receiving multiple iron transfusion through his port and the right upper chest, chronic low back pain with bilateral sciatica, vertigo, coronary artery disease . He follows up in the [facility], with Dr. Stone, with Dr. Singletary Presents because of dyspnea of 3 days' duration associated with left-sided chest pain radiating to the left arm, left neck and jaw and the back, not about 3-4/10 in severity, felt like sharp increase by deep breathing and coughing. Patient has chronic cough with yellow phlegm He denies sweating, dizziness, palpitation or vomiting. No reports of abdominal pain. No vomiting, bowel movement is fine and no urinary problem He smokes about 1 pack per day, patient is counseled and agrees to quit, he agrees to nicotine patch. He denies alcohol or illicit drugs Vitals are stable and he is saturating 95% on 2 L oxygen via nasal cannula he has mild leukocytosis of 11.2 K, hemoglobin 7.8, platelets normal. INR 0.9, creatinine 2.99 with baseline 2.7-3.4. Liver enzymes not elevated, troponin is elevated at 6.62. ProBNP is 8730. Chest x-ray: Possible right lower lobe atelectasis or pneumonia and associated effusion. Prominence of interstitial is again seen. EKG showing normal sinus rhythm at [address]-T changes, QTC 466. Emergency room patient received bronchodilator, nitroglycerin and heparin drip, also got 1 dose of Lasix and got 1 unit of blood transfusion. She looks appropriate since he has low hemoglobin which affects her oxygenation of the heart Review of Systems CONSTITUTIONAL: No fever, no malaise, no fatigue. HEENT: No recent visual problems or hearing problems. Denied any sore throat. CARDIOVASCULAR: No orthopnea, PND, no palpitations, no syncope. PULMONARY: no hemoptysis. GASTROINTESTINAL: No diarrhea, no nausea, no vomiting, no abdominal pain. Normoactive bowel sounds. NEUROLOGICAL: No headaches, no weakness, no numbness. HEMATOLOGICAL: Denies any bleeding or petechiae. GENITOURINARY: Denies any burning micturition, frequency, or urgency. MUSCULOSKELETAL/RHEUMATOLOGICAL: Denies any joint pain, swelling, or any muscle pain. ENDOCRINE: Denies any polyuria or polydipsia. Past Medical History Past Medical History: Coronary Artery Disease (CAD), Chest Pain / Angina, Diabetes Mellitus, GERD/Reflux, GI Bleed, Hyperlipidemia, Hypertension, Renal Disease, Vascular Disorder Additional Past Medical History / Comment(s): Insomnia, abdominal distention that comes and goes,hx partial sbo. epistaxis, sciatica, neuropathy lower GI bleed, benign colon polyp, IDDM type II, low back renal disease stage lV, past fx lt wrist, uti, anemia has had received iron infusions in past History of Any Multi-Drug Resistant Organisms: None Reported Past Surgical History: Cholecystectomy, Heart Catheterization Additional Past Surgical History / Comment(s): R carotid stent done in [place], EGD/colonoscopyDecember 2016, fx lt wrist -sx re-set. Past Anesthesia/Blood Transfusion Reactions: No Reported Reaction Additional Past Anesthesia/Blood Transfusion Reaction / Comment(s): Bld transfusion in Sep per Past Psychological History: Depression, PTSD Smoking Status: Current every day smoker Past Alcohol Use History: None Reported Past Drug Use History: Marijuana - Past Family History Father History Unknown: Yes Mother Family Medical History: Cancer Additional Family Medical History / Comment(s): Mother from metastatic cancer pelvic origin. Medications and Allergies Home Medications Medication Instructions Recorded Confirmed Type Ergocalciferol (Vitamin D2) 50,000 unit PO Q14D 07/18/17 04/18/20 History [Vitamin D2] Metoprolol Tartrate [Lopressor] 25 mg PO BID 07/18/17 04/18/20 History Simvastatin [Zocor] 40 mg PO HS 07/18/17 04/18/20 History Aspirin EC [Ecotrin Low Dose] 81 mg PO HS 02/10/18 04/18/20 History Ferrous Sulfate [Iron (65 MG 325 mg PO TID 02/10/18 04/18/20 History Elemental)] Isosorbide Mononitrate ER [Imdur] 60 mg PO DAILY 03/04/18 04/18/20 History Cyanocobalamin [Vitamin B-12] 500 mcg PO DAILY 09/23/18 04/18/20 History Insulin Glargine [Lantus] 30 unit SQ HS 09/23/18 04/18/20 History hydrALAZINE HCL 25 mg PO TID 09/23/18 04/18/20 History Gabapentin [Neurontin] 300 mg PO BID 01/09/19 04/18/20 History rOPINIRole HCL [Requip] 0.25 mg PO BID 01/09/19 04/18/20 History Melatonin 5 mg PO HS 05/22/19 04/18/20 History glipiZIDE [Glucotrol] 5 mg PO W/LUNCH 05/22/19 04/18/20 History amLODIPine [Norvasc] 5 mg PO DAILY 06/22/19 04/18/20 History calcitrioL [Rocaltrol] 0.25 mcg PO SANTOS 09/17/19 04/18/20 History Furosemide [Lasix] 40 mg PO DAILY 09/25/19 04/18/20 History Omeprazole [PriLOSEC] 20 mg PO AC-BRKFST 09/25/19 04/18/20 History Sodium Bicarbonate 650 mg PO BID 03/22/20 04/18/20 History Clopidogrel [Plavix] 75 mg PO HS 04/18/20 04/18/20 History Allergies Allergy/AdvReac Type Severity Reaction Status Date / Time Iodinated Contrast Media Allergy Unknown Verified 04/18/20 17:40 Iodine and Iodide Containing Allergy Unknown Verified 04/18/20 17:40 Produc Physical Exam Vitals: Vital Signs Temp Pulse Resp BP Pulse Ox 04/18/20 13:11 58 L 18 151/68 97 04/18/20 13:03 61 04/18/20 12:54 65 04/18/20 12:08 20 04/18/20 11:55 98.5 F 72 24 161/84 98 Intake and Output 04/17/20 04/18/20 04/18/20 22:59 06:59 14:59 Other: Weight 94.347 kg GENERAL: The patient is alert and oriented x3, not in any acute distress. Well developed, well nourished. HEENT: Pupils are round and equally reacting to light. EOMI. No scleral icterus. No conjunctival pallor. Normocephalic, atraumatic. No pharyngeal erythema. No thyromegaly. CARDIOVASCULAR: S1 and S2 present. No murmurs, rubs, or gallops. -PULMONARY: Chest is clear to auscultation, no wheezing. Bilateral basal crackles. ABDOMEN: Soft, nontender, nondistended, normoactive bowel sounds. No palpable organomegaly. MUSCULOSKELETAL: No joint swelling or deformity. -EXTREMITIES: No cyanosis, clubbing,. Bilateral pitting leg edema NEUROLOGICAL: Gross neurological examination did not reveal any focal deficits. SKIN: No rashes. No petechiae Results CBC & Chem 7: 04/18/20 12:08 04/18/20 12:08 Labs: Abnormal Lab Results - Last 24 Hours (Table) 04/18/20 04/18/20 04/18/20 Range/Units 12:08 12:08 12:08 WBC 11.2 H (3.8-10.6) k/uL RBC 2.57 L (4.30-5.90) m/uL Hgb 7.8 L (13.0-17.5) gm/dL Hct 25.1 L (39.0-53.0) % Neutrophils # 9.5 H (1.3-7.7) k/uL Lymphocytes # 0.8 L (1.0-4.8) k/uL D-Dimer 0.71 H (<0.60) mg/L FEU BUN 42 H (9-20) mg/dL Creatinine 2.99 H (0.66-1.25) mg/dL Glucose 152 H (74-99) mg/dL Creatine Kinase 49 L (55-170) U/L Troponin I (0.000-0.034) ng/mL Total Protein 5.8 L (6.3-8.2) g/dL Albumin 3.1 L (3.5-5.0) g/dL 04/18/20 Range/Units 12:08 WBC (3.8-10.6) k/uL RBC (4.30-5.90) m/uL Hgb (13.0-17.5) gm/dL Hct (39.0-53.0) % Neutrophils # (1.3-7.7) k/uL Lymphocytes # (1.0-4.8) k/uL D-Dimer (<0.60) mg/L FEU BUN (9-20) mg/dL Creatinine (0.66-1.25) mg/dL Glucose (74-99) mg/dL Creatine Kinase (55-170) U/L Troponin I 6.610 H* (0.000-0.034) ng/mL Total Protein (6.3-8.2) g/dL Albumin (3.5-5.0) g/dL Assessment and Plan Assessment: None STEMI Possible acute CHF exacerbation Possible right lower lobe pneumonia versus atelectasis, suspicion of pneumonia is low Type 2 diabetes mellitus Hypertension Hyperlipidemia History of coronary artery disease PVD status post stent of the Rt SFA by Dr. Boyd GERD GI bleed History of iron deficiency anemia needing multiple iron transfusion and through the port, he follows up with Dr. Singletary Chronic kidney disease stage III-IV Nicotine dependence Plan: This is a pleasant 70 years old male who presents with non-STEMI and possible CHF. Patient was ordered a started on heparin drip, cardiology evaluated the patient, we'll check echocardiogram. Continue with telemetry. Serial troponin. We'll check for procalcitonin although the suspicion of pneumonia is low, we will not start the patient on antibiotic. Continue with Lasix 40 mg twice daily. Also we'll monitor input and output and call for we will consider nephrology consult renal function worsens Labs and medication were reviewed.. Continue same treatment. Continue with symptomatic treatment. Resume home medication. Monitor lytes and vitals. DVT and GI prophylaxis. Further recommendations of the clinical course of the patient DVT prophylaxis: heparin GI Prophylaxis: Pepcid PT/OT: Pending Prognosis is guarded
[2020-04-18] MEDS: MELATONIN 5 MG TABLET PO SCH (20:24)
[2020-04-18] MEDS: SODIUM BICARBONATE TAB 650 MG TAB PO SCH (20:24)
[2020-04-18] MEDS: ATORVASTATIN 20 MG TAB PO SCH (20:24)
[2020-04-18] MEDS: GABAPENTIN 300 MG CAP PO SCH (20:24)
[2020-04-18] MEDS: FUROSEMIDE 10 MG/ML 4 ML VIAL IV SCH (20:24)
[2020-04-18] MEDS: METOPROLOL TARTRATE 25 MG TAB PO SCH (20:24)
[2020-04-18] MEDS: INSULIN DETEMIR (LEVEMIR) 100 UNIT/ML SYR SQ SCH (20:34)
[2020-04-18 20:38] LABS: Glucose,Whole Blood 234 mg/dL (75-99)
[2020-04-19 03:56] LABS: Basophils % (A) 0 %; Eosinophils # (A) 0.1 k/uL (0-0.7); Eosinophils % (A) 1 %; HCT 26.6 % (39.0-53.0); HGB 8.1 gm/dL (13.0-17.5); Hypochromasia Slight; Lymphocytes # (A) 1.1 k/uL (1.0-4.8); Lymphocytes % (A) 10 %; MCH 29.1 pg (25.0-35.0); MCHC 30.4 g/dL (31.0-37.0); MCV 95.7 fL (80.0-100.0); Mean Platelet Volume 8.8; Monocytes # (A) 0.5 k/uL (0-1.0); Monocytes % (A) 5 %; Neutrophils # (A) 9.3 k/uL (1.3-7.7); Neutrophils % (A) 83 %; Platelet Count 413 k/uL (150-450); Poikilocytosis Slight; RBC 2.77 m/uL (4.30-5.90); RDW 15.8 % (11.5-15.5); WBC 11.2 k/uL (3.8-10.6)
[2020-04-19 04:06] LABS: Calcium 8.3 mg/dL (8.4-10.2); Potassium 3.4 mmol/L (3.5-5.1)
[2020-04-19] MEDS ORDERED: DEXTROSE 50% SYRINGE 50 ML IVP ONE (05:58)
[2020-04-19 06:17] LABS: Glucose,Whole Blood 66 mg/dL (75-99)
[2020-04-19 06:17] LABS: Glucose,Whole Blood 142 mg/dL (75-99)
[2020-04-19] MEDS: INSULIN ASPART (NovoLOG) 100 UNIT/ML VIAL SQ SCH ×4 (06:28→22:29)
[2020-04-19] MEDS: PANTOPRAZOLE 40 MG TABLET PO SCH (06:43)
[2020-04-19] MEDS ORDERED: ISOSORBIDE MONONITRATE ER 60 MG TAB.ER.24H PO SCH (09:00)
[2020-04-19] MEDS ORDERED: FUROSEMIDE 40 MG TAB PO SCH (09:00)
[2020-04-19] MEDS ORDERED: ERGOCALCIFEROL 50,000 UNIT CAP PO SCH (09:00)
[2020-04-19] MEDS: METOPROLOL TARTRATE 25 MG TAB PO SCH ×2 (09:11→22:29)
[2020-04-19] MEDS: hydrALAZINE HCL 25 MG TAB PO SCH ×3 (09:11→22:28)
[2020-04-19] MEDS: ASCORBIC ACID 500 MG TAB PO SCH (09:12)
[2020-04-19] MEDS: GABAPENTIN 300 MG CAP PO SCH ×2 (09:12→22:29)
[2020-04-19] MEDS: amLODIPine 5 MG TAB PO SCH (09:12)
[2020-04-19] MEDS: FUROSEMIDE 10 MG/ML 4 ML VIAL IV SCH ×2 (09:12→20:51)
[2020-04-19] MEDS: CYANOCOBALAMIN 500 MCG TAB PO SCH (09:12)
[2020-04-19] MEDS: ASPIRIN 325 MG TAB PO SCH (09:12)
[2020-04-19] MEDS: SODIUM BICARBONATE TAB 650 MG TAB PO SCH ×2 (09:12→22:28)
[2020-04-19] MEDS: FERROUS SULFATE 325 MG TAB PO SCH ×3 (09:12→22:28)
--- NOTE | 2020-04-19 09:49 | NM ---
EXAMINATION TYPE: NM pul vent and perfuse DATE OF EXAM: 04/19/2020 COMPARISON: Chest radiograph 04/18/2020 HISTORY: Elevated d-dimer TECHNIQUE: Utilizing inhalation of 34.3 mCi Tc 99m DTPA aerosol and intravenous injection of 5.25 mC i of Tc 99m MAA, ventilation and perfusion images are acquired post injection in multiple projections . FINDINGS: No segmental perfusion defects of radiotracer distribution in the lungs. There is nonsegmental decrea sed radiotracer distribution of the right lung base corresponding with pleural effusion seen on 2019 chest radiograph comparison. There is no evidence of mismatched perfusion defects. IMPRESSION: 1. Very low probability of pulmonary embolism. No segmental perfusion defects. 2. Right pleural effusion.
--- NOTE | 2020-04-19 10:54 | P.PN ---
Subjective Progress Note Date: 04/19/20 CHIEF COMPLAINT: Chest pain HISTORY OF PRESENT ILLNESS: Patient examined this morning at the bedside. Patient states his shortness of breath has improved. He currently denies chest pain. He remains on an IV heparin drip. VQ scan was completed this morning re vealing very low probability of a PE. Troponin 6.610. 6.690. 6.210. Creatinine 3.41 today, up from 2.99 yesterday. Patient received 1 unit of blood yesterday. His hemoglobin is 8.1, up from 7.8. PHYSICAL EXAM: VITAL SIGNS: Reviewed. GENERAL: Well-developed in no acute distress. Mild respiratory distress during examination and with conversation. HEENT: Head is normocephalic. Pupils are equal, round. Sclerae anicteric. Mucous membranes of the mouth are moist. Neck supple. No JVD or thyromegaly LUNGS: Respirations even and unlabored. Lung sounds diminished. HEART: Regular rate and rhythm. S1 and S2 heard. Systolic murmur. EXTREMITIES: Normal range of motion. No clubbing or cyanosis. Peripheral pulses intact. 2+ bilateral lower extremity edema NEUROLOGIC: Awake and alert. Oriented x 3. ASSESSMENT: 1. Non-ST elevation myocardial infarction 2. Acute exacerbation of diastolic heart failure, most recent echo from 2019 shows EF 55-60%, BNP 8730 3. Acute on chronic anemia 4. Acute on chronic kidney disease 5. History of peripheral vascular disease 6. History of carotid stenosis with previous stent to right carotid artery 7. Hypertension 8. Hyperlipidemia 9. Ongoing tobacco dependence, patient smokes 1 pack per day PLAN: -Echocardiogram ordered. Await results -Continue current dose of IV Lasix -We will consult nephrology secondary to worsening kidney function -Continue to monitor kidney function. Repeat in a.m. -Daily weights -Accurate I&O -Continue IV heparin for another 24 hours -Due to patients renal function, will defer cardiac cath at this time and continue to treat patient medically Nurse practitioner note has been reviewed by physician. Signing provider agrees with the documented findings, assessment, and plan of care. Objective - Vital Signs Vital signs: Vital Signs Temp 97.6 F 04/19/20 08:00 Pulse 74 04/19/20 08:00 Resp 16 04/19/20 08:00 BP 139/84 04/19/20 08:00 Pulse Ox 94 L 04/19/20 04:00 Intake & Output 04/18/20 04/19/20 04/19/20 18:59 06:59 18:59 Intake Total 120 310 Output Total 400 Balance 120 -90 Weight 94.347 kg 92.8 kg Intake: Oral 120 Blood Product 0 310 Rc Pheresis As-3 Unit 0 310 [id number] Output: Urine 400 Other: Voiding Method Urinal Urinal - Labs CBC & Chem 7: 04/19/20 03:37 04/19/20 03:37 Labs: Abnormal Lab Results - Last 24 Hours (Table) 04/18/20 04/18/20 04/18/20 Range/Units 12:08 12:08 12:08 WBC 11.2 H (3.8-10.6) k/uL RBC 2.57 L (4.30-5.90) m/uL Hgb 7.8 L (13.0-17.5) gm/dL Hct 25.1 L (39.0-53.0) % MCHC (31.0-37.0) g/dL RDW (11.5-15.5) % Neutrophils # 9.5 H (1.3-7.7) k/uL Lymphocytes # 0.8 L (1.0-4.8) k/uL APTT (22.0-30.0) sec D-Dimer 0.71 H (<0.60) mg/L FEU Potassium (3.5-5.1) mmol/L BUN 42 H (9-20) mg/dL Creatinine 2.99 H (0.66-1.25) mg/dL Glucose 152 H (74-99) mg/dL POC Glucose (mg/dL) (75-99) mg/dL Calcium (8.4-10.2) mg/dL Creatine Kinase 49 L (55-170) U/L Troponin I (0.000-0.034) ng/mL Total Protein 5.8 L (6.3-8.2) g/dL Albumin 3.1 L (3.5-5.0) g/dL HDL Cholesterol (40-60) mg/dL Procalcitonin (0.02-0.09) ng/mL Crossmatch 04/18/20 04/18/20 04/18/20 Range/Units 12:08 12:11 15:17 WBC (3.8-10.6) k/uL RBC (4.30-5.90) m/uL Hgb (13.0-17.5) gm/dL Hct (39.0-53.0) % MCHC (31.0-37.0) g/dL RDW (11.5-15.5) % Neutrophils # (1.3-7.7) k/uL Lymphocytes # (1.0-4.8) k/uL APTT (22.0-30.0) sec D-Dimer (<0.60) mg/L FEU Potassium (3.5-5.1) mmol/L BUN (9-20) mg/dL Creatinine (0.66-1.25) mg/dL Glucose (74-99) mg/dL POC Glucose (mg/dL) (75-99) mg/dL Calcium (8.4-10.2) mg/dL Creatine Kinase (55-170) U/L Troponin I 6.610 H* 6.690 H* (0.000-0.034) ng/mL Total Protein (6.3-8.2) g/dL Albumin (3.5-5.0) g/dL HDL Cholesterol (40-60) mg/dL Procalcitonin (0.02-0.09) ng/mL Crossmatch See Detail 04/18/20 04/18/20 04/18/20 Range/Units 16:53 18:40 18:40 WBC (3.8-10.6) k/uL RBC (4.30-5.90) m/uL Hgb (13.0-17.5) gm/dL Hct (39.0-53.0) % MCHC (31.0-37.0) g/dL RDW (11.5-15.5) % Neutrophils # (1.3-7.7) k/uL Lymphocytes # (1.0-4.8) k/uL APTT (22.0-30.0) sec D-Dimer (<0.60) mg/L FEU Potassium (3.5-5.1) mmol/L BUN (9-20) mg/dL Creatinine (0.66-1.25) mg/dL Glucose (74-99) mg/dL POC Glucose (mg/dL) 163 H (75-99) mg/dL Calcium (8.4-10.2) mg/dL Creatine Kinase (55-170) U/L Troponin I 6.210 H* (0.000-0.034) ng/mL Total Protein (6.3-8.2) g/dL Albumin (3.5-5.0) g/dL HDL Cholesterol (40-60) mg/dL Procalcitonin 0.14 H (0.02-0.09) ng/mL Crossmatch 04/18/20 04/19/20 04/19/20 Range/Units 20:31 03:37 03:37 WBC 11.2 H (3.8-10.6) k/uL RBC 2.77 L (4.30-5.90) m/uL Hgb 8.1 L (13.0-17.5) gm/dL Hct 26.6 L (39.0-53.0) % MCHC 30.4 L (31.0-37.0) g/dL RDW 15.8 H (11.5-15.5) % Neutrophils # 9.3 H (1.3-7.7) k/uL Lymphocytes # (1.0-4.8) k/uL APTT (22.0-30.0) sec D-Dimer (<0.60) mg/L FEU Potassium 3.4 L (3.5-5.1) mmol/L BUN 40 H (9-20) mg/dL Creatinine 3.41 H (0.66-1.25) mg/dL Glucose 59 L (74-99) mg/dL POC Glucose (mg/dL) 234 H (75-99) mg/dL Calcium 8.3 L (8.4-10.2) mg/dL Creatine Kinase (55-170) U/L Troponin I (0.000-0.034) ng/mL Total Protein (6.3-8.2) g/dL Albumin (3.5-5.0) g/dL HDL Cholesterol 29 L (40-60) mg/dL Procalcitonin (0.02-0.09) ng/mL Crossmatch 04/19/20 04/19/20 04/19/20 Range/Units 03:37 05:51 06:13 WBC (3.8-10.6) k/uL RBC (4.30-5.90) m/uL Hgb (13.0-17.5) gm/dL Hct (39.0-53.0) % MCHC (31.0-37.0) g/dL RDW (11.5-15.5) % Neutrophils # (1.3-7.7) k/uL Lymphocytes # (1.0-4.8) k/uL APTT 30.9 H (22.0-30.0) sec D-Dimer (<0.60) mg/L FEU Potassium (3.5-5.1) mmol/L BUN (9-20) mg/dL Creatinine (0.66-1.25) mg/dL Glucose (74-99) mg/dL POC Glucose (mg/dL) 66 L 142 H (75-99) mg/dL Calcium (8.4-10.2) mg/dL Creatine Kinase (55-170) U/L Troponin I (0.000-0.034) ng/mL Total Protein (6.3-8.2) g/dL Albumin (3.5-5.0) g/dL HDL Cholesterol (40-60) mg/dL Procalcitonin (0.02-0.09) ng/mL Crossmatch
[2020-04-19 11:26] LABS: Glucose,Whole Blood 74 mg/dL (75-99)
[2020-04-19] MEDS: HEPARIN SOD,PORK IN 0.45% NACL 25,000 UNIT in 0.45% NACL 1 250ML.BAG IV SCH (12:08)
[2020-04-19] MEDS ORDERED: POTASSIUM CHLORIDE ER 20 MEQ TAB.ER PO STA (12:34)
--- NOTE | 2020-04-19 12:34 | P.NPCON ---
History of Present Illness - Reason for Consult acute renal failure, chronic renal failure - History of Present Illness Reason for consultation: Acute kidney injury on chronic kidney disease History of present illness: Patient is a 70-year-old male seen in renal consultation for acute kidney injury on chronic kidney disease. Patient has chronic kidney disease stage IV with baseline creatinine in the range of 3-3.3. Etiology is biopsy proven diabetic kidney disease as well as underlying IgA. He was noted to have severe fibrosis and atrophy on the biopsy done in January 2019. Patient presented to the hospital with shortness of breath going on for about 2 days. Dyspnea was worse with exertion. He was also having sharp chest pain with radiation up to his jaw. Chest x-ray did not reveal significant volume overload. He is currently maintained on heparin drip. Low probability of PE on VQ scan. Blood pressure stable. He is maintained on IV Lasix 40 mg twice daily. Good urine output. No hematuria or dysuria. Denies use of nonsteroidals. No hematuria or dysuria. BNP noted to be elevated at 8730. He does have history of diastolic CHF. Cardiology is following. He also received a unit of blood transfusion yesterday. Hemoglobin 8.1 this morning. Denies any active bleeding. Vital signs are stable. General: The patient appeared well nourished and normally developed. HEENT: Head exam is unremarkable. Neck is without jugular venous distension. LUNGS: Breath sounds decreased. HEART: Rate and Rhythm are regular. ABDOMEN: Soft, nontender. EXTREMITITES: 2+ edema bilateral lower extremities. Past Medical History Past Medical History: Coronary Artery Disease (CAD), Chest Pain / Angina, Diabetes Mellitus, GERD/Reflux, GI Bleed, Hyperlipidemia, Hypertension, Renal Disease, Vascular Disorder Additional Past Medical History / Comment(s): Insomnia, abdominal distention that comes and goes,hx partial sbo. epistaxis, sciatica, neuropathy lower GI bleed, benign colon polyp, IDDM type II, low back renal disease stage lV, past fx lt wrist, uti, anemia has had received iron infusions in past History of Any Multi-Drug Resistant Organisms: None Reported Past Surgical History: Cholecystectomy, Heart Catheterization Additional Past Surgical History / Comment(s): R carotid stent done in [place], EGD/colonoscopyDecember 2016, fx lt wrist -sx re-set. Past Anesthesia/Blood Transfusion Reactions: No Reported Reaction Additional Past Anesthesia/Blood Transfusion Reaction / Comment(s): Bld trans fusion in Sep per Past Psychological History: Depression, PTSD Smoking Status: Current every day smoker Past Alcohol Use History: None Reported Past Drug Use History: Marijuana - Past Family History Father History Unknown: Yes Mother Family Medical History: Cancer Additional Family Medical History / Comment(s): Mother from metastatic cancer pelvic origin. Medications and Allergies Home Medications Medication Instructions Recorded Confirmed Type Ergocalciferol (Vitamin D2) 50,000 unit PO Q14D 07/18/17 04/18/20 History [Vitamin D2] Metoprolol Tartrate [Lopressor] 25 mg PO BID 07/18/17 04/18/20 History Simvastatin [Zocor] 40 mg PO HS 07/18/17 04/18/20 History Aspirin EC [Ecotrin Low Dose] 81 mg PO HS 02/10/18 04/18/20 History Ferrous Sulfate [Iron (65 MG 325 mg PO TID 02/10/18 04/18/20 History Elemental)] Isosorbide Mononitrate ER [Imdur] 60 mg PO DAILY 03/04/18 04/18/20 History Cyanocobalamin [Vitamin B-12] 500 mcg PO DAILY 09/23/18 04/18/20 History Insulin Glargine [Lantus] 30 unit SQ HS 09/23/18 04/18/20 History hydrALAZINE HCL 25 mg PO TID 09/23/18 04/18/20 History Gabapentin [Neurontin] 300 mg PO BID 01/09/19 04/18/20 History rOPINIRole HCL [Requip] 0.25 mg PO BID 01/09/19 04/18/20 History Melatonin 5 mg PO HS 05/22/19 04/18/20 History glipiZIDE [Glucotrol] 5 mg PO W/LUNCH 05/22/19 04/18/20 History amLODIPine [Norvasc] 5 mg PO DAILY 06/22/19 04/18/20 History calcitrioL [Rocaltrol] 0.25 mcg PO SANTOS 09/17/19 04/18/20 History Furosemide [Lasix] 40 mg PO DAILY 09/25/19 04/18/20 History Omeprazole [PriLOSEC] 20 mg PO AC-BRKFST 09/25/19 04/18/20 History Sodium Bicarbonate 650 mg PO BID 03/22/20 04/18/20 History Clopidogrel [Plavix] 75 mg PO HS 04/18/20 04/18/20 History Allergies Allergy/AdvReac Type Severity Reaction Status Date / Time Iodinated Contrast Media Allergy Unknown Verified 04/18/20 17:40 Iodine and Iodide Containing Allergy Unknown Verified 04/18/20 17:40 Produc Physical Exam Vitals: Vital Signs Temp Pulse Pulse Resp BP BP Pulse Ox 04/19/20 11:45 16 04/19/20 08:00 97.6 F 74 16 139/84 04/19/20 04:00 70 18 133/59 94 L 04/19/20 00:00 98.4 F 80 20 132/62 98 04/18/20 20:15 71 20 130/59 95 04/18/20 20:00 98.1 F 80 20 145/70 95 04/18/20 18:42 98.1 F 86 16 139/56 94 L 04/18/20 18:12 97.1 F L 68 16 133/67 04/18/20 18:02 97.9 F 71 16 141/57 04/18/20 16:00 16 04/18/20 15:58 97.8 F 67 16 156/69 95 04/18/20 14:54 64 16 169/71 97 04/18/20 13:11 58 L 18 151/68 97 04/18/20 13:03 61 04/18/20 12:54 65 Intake and Output 04/18/20 04/19/20 04/19/20 22:59 06:59 14:59 Intake Total 430 212.736 Output Total 400 Balance 430 -400 212.736 Intake: Intake, IV Titration 212.736 Amount Heparin Sod,Pork in 0.45% 212.736 NaCl 25,000 unit In 0.45 % NaCl 1 250ml.bag @ 10. 599 UNITS/KG/HR 10 mls/hr IV .Q24H [facility] Rx#: [id number] Oral 120 Blood Product 310 Rc Pheresis As-3 Unit 310 [id number] Output: Urine 400 Other: Voiding Method Urinal Urinal Urinal # Voids 1 Weight 94.347 kg 92.8 kg Results - Lab Results Most recent lab results Calcium 8.3 mg/dL (8.4-10.2) L 04/19/20 03:37 Magnesium 2.0 mg/dL (1.6-2.3) 04/19/20 03:37 04/19/20 03:37 04/19/20 03:37 Assessment and Plan Plan: Assessment: 1. Acute kidney injury mostly prerenal secondary to cardiorenal syndrome. Creatinine 3.41 today. 2. 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 3. Hypokalemia secondary to diuresis. 4. Insulin-dependent diabetes mellitus. 5. Symptomatic anemia status post blood transfusion. 6. Chronic kidney disease mineral bone disease maintained on calcitriol. 7. Hypertension with chronic kidney disease. Controlled. 8. Acute on chronic diastolic CHF. 9. Volume overload. 10. Possible non-ST elevated myocardial infarction maintained on heparin drip. Cardiology following. Plan: Maintain IV Lasix 40 mg twice daily for the next 24 hours. Replace potassium. 40 mEq today. Check iron studies. Add Aranesp. Avoid nephrotoxins. Continue to monitor renal function and urine output. Thank you for the consultation. I will continue to follow the patient with you during his hospital stay.
--- NOTE | 2020-04-19 13:41 | ECHOF ---
Referral Reason:Chest pain, elevated troponin MEASUREMENTS -------- HEIGHT: 170.2 cm WEIGHT: 94.8 kg BP: IVSd: 1.4 cm (0.6 - 1.1) LVIDd: 5.2 cm (3.9 - 5.3) LVPWd: 1.4 cm (0.6 - 1.1) EDV(Teich): 130 ml IVSs: 1.8 cm LVIDs: 4.3 cm LVPWs: 1.5 cm %IVS Thck: 23 % ESV(Teich): 83 ml EF(Teich): 36 % %FS: 17 % SV(Teich): 46 ml LA Diam: 3.6 cm (2.7 - 3.8) RVIDd: 3.9 cm (< 3.3) Ao Diam: 4.0 cm (2.0 - 3.7) EPSS: 0.7 cm MV E Ray: 1.08 m/s MV DecT: 252 ms MV Dec [place]: 4.3 m/s MV A Ray: 0.91 m/s MV E/A Ratio: 1.19 MV PHT: 73 ms MV Vmax: 1.32 m/s MV Vmean: 0.62 m/s MV maxP.99 mmHg MV meanP.95 mmHg MV VTI: 32.6 cm LVOT Vmax: 0.94 m/s LVOT maxP.55 mmHg LVOT Vmax: 0.92 m/s LVOT Vmean: 0.68 m/s LVOT maxP.39 mmHg LVOT meanP.03 mmHg LVOT Env.Ti: 318 ms LVOT VTI: 21.7 cm AV Vmax: 1.86 m/s AV maxP.91 mmHg AV Vmax: 1.96 m/s AV Vmean: 1.35 m/s AV maxP.38 mmHg AV meanP.26 mmHg AV Env.Ti: 332 ms AV VTI: 44.8 cm TR Vmax: 2.29 m/s TR maxP.95 mmHg RAP: 5.00 mmHg RVSP: 25.95 mmHg MV EF SLOPE: 36.02 mm/s (70 - 150) MV EXCURSION: 14.58 mm (> 18.000) FINDINGS -------- Sinus rhythm. This was a technically adequate study. The left ventricular size is normal. There is mild concentric left ventricular hypertrophy. Overa ll left ventricular systolic function is low-normal with, an EF between 50 - 55 %. The diastolic fi lling pattern is normal for the age of the patient 16.48. Inferior Hypokinesis The right ventricle is moderately enlarged. The left atrial size is normal. The right atrial size is normal. There is mild aortic regurgitation. There is mild aortic stenosis present. Peak/mean gradient acr oss the Aortic Valve is 15.38mmHg / 8.26mmHg. The mitral valve leaflets are severely thickened. Mild mitral regurgitation is present. There is severe mitral annular calcification of the posterior mitral leaflet. There is what appears to be a 1cm echodensity which may represent part of the chordae however cannot exclude a vegetation. Recomme nd JENNIFER if clinically indicated. Mild tricuspid regurgitation present. Right ventricular systolic pressure is normal at < 35 mmHg. There is no pulmonic regurgitation present. 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 There is no pericardial effusion. CONCLUSIONS -------- 1. The left ventricular size is normal. 2. There is mild concentric left ventricular hypertrophy. 3. Overall left ventricular systolic function is low-normal with, an EF between 50 - 55 %. 4. The diastolic filling pattern is normal for the age of the patient 16.48 5. Inferior Hypokinesis 6. The right ventricle is moderately enlarged. 7. The left atrial size is normal. 8. The right atrial size is normal. 9. There is mild aortic regurgitation. 10. There is mild aortic stenosis present. 11. Peak/mean gradient across the Aortic Valve is 15.38mmHg / 8.26mmHg. 12. The mitral valve leaflets are severely thickened. 13. Mild mitral regurgitation is present. 14. There is severe mitral annular calcification of the posterior leaflet. There is what appears to be a 1cm echodensity which may represent part of the chordae however cannot exclude a vegetation. Re commend JENNIFER if clinically indicated. 15. Mild tricuspid regurgitation present. 16. There is no pulmonic regurgitation present. 17. 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 UPSTAIRS MAID: Kalpana Cole RDCS
[2020-04-19] MEDS: AMOXIC-POT CLAV 875-125MG 1 EACH TAB PO SCH ×2 (16:47→22:29)
[2020-04-19 17:02] LABS: Glucose,Whole Blood 213 mg/dL (75-99)
[2020-04-19] MEDS: glipiZIDE 5 MG TAB PO SCH (17:03)
--- NOTE | 2020-04-19 19:53 | P.PN ---
Subjective This is a pleasant 70 years old male with past medical history of diabetes mellitus, hyperlipidemia, hypertension, GI bleed, chronic kidney disease stage IV, iron deficiency anemia and he follows with Dr. Singletary and receiving multiple iron transfusion through his port and the right upper chest, chronic low back pain with bilateral sciatica, vertigo, coronary artery disease . He follows up in the [place] [facility], with Dr. Stone, with Dr. Singletary Presents because of dyspnea of 3 days' duration associated with left-sided chest pain radiating to the left arm, left neck and jaw and the back, not about 3-4/10 in severity, felt like sharp increase by deep breathing and coughing. Patient has chronic cough with yellow phlegm He denies sweating, dizziness, palpitation or vomiting. No reports of abdominal pain. No vomiting, bowel movement is fine and no urinary problem He smokes about 1 pack per day, patient is counseled and agrees to quit, he agrees to nicotine patch. He denies alcohol or illicit drugs Vitals are stable and he is saturating 95% on 2 L oxygen via nasal cannula he has mild leukocytosis of 11.2 K, hemoglobin 7.8, platelets normal. INR 0.9, creatinine 2.99 with baseline 2.7-3.4. Liver enzymes not elevated, troponin is elevated at 6.62. ProBNP is 8730. Chest x-ray: Possible right lower lobe atelectasis or pneumonia and associated effusion. Prominence of interstitial is again seen. EKG showing normal sinus rhythm at [address]-T changes, QTC 466. Emergency room patient received bronchodilator, nitroglycerin and heparin drip, also got 1 dose of Lasix and got 1 unit of blood transfusion. She looks appro priate since he has low hemoglobin which affects her oxygenation of the heart 04/19/2020 Patient was lying comfortable today. Lethargic he denies chest pain, mild dyspnea. Nephrology input is appreciated and checking the patient for stage IV kidney disease and the recommended to continue with Lasix for now. Patient remains on heparin drip for another 24 hours I discussed the case with cardiolo gy team recommended to treat him medically. Augmentin is been added for possible right sided pneumonia, repeat chest x-ray in the morning. Echocardiogram showing ejection fraction of 50-55% with infe rior hypokinesia and a right right ventricle and cannot exclude vegetation. VQ scan is low probability for PE in view of slightly elevated d-dimer Prognosis remains guarded Review of Systems CONSTITUTIONAL: No fever, no malaise, no fatigue. HEENT: No recent visual problems or hearing problems. Denied any sore throat. CARDIOVASCULAR: No orthopnea, PND, no palpitations, no syncope. PULMONARY: no hemoptysis. GASTROINTESTINAL: No diarrhea, no nausea, no vomiting, no abdominal pain. Normoactive bowel sounds. NEUROLOGICAL: No headaches, no weakness, no numbness. HEMATOLOGICAL: Denies any bleeding or petechiae. GENITOURINARY: Denies any burning micturition, frequency, or urgency. MUSCULOSKELETAL/RHEUMATOLOGICAL: Denies any joint pain, swelling, or any muscle pain. ENDOCRINE: Denies any polyuria or polydipsia. Active Medications Generic Name Dose Route Start Last Admin Trade Name Freq PRN Reason Stop Dose Admin Amlodipine Besylate 5 mg 04/19/20 09:00 04/19/20 09:12 Norvasc PO 5 mg DAILY GRECIA Administration Amoxicillin/Clavulanate Potassium 1 each 04/19/20 10:45 04/19/20 16:47 Augmentin 875-125 PO 1 each Q12HR GRECIA Administration Ascorbic Acid 500 mg 04/19/20 09:00 04/19/20 09:12 Vitamin C PO 500 mg DAILY GRECIA Administration Aspirin 325 mg 04/19/20 09:00 04/19/20 09:12 Aspirin PO 325 mg DAILY GRECIA Administration Atorvastatin Calcium 20 mg 04/18/20 21:00 04/18/20 20:24 Lipitor PO 20 mg HS GRECIA Administration Calcitriol 0.25 mcg 04/24/20 14:10 Rocaltrol PO SANTOS GRECIA Cyanocobalamin 500 mcg 04/19/20 09:00 04/19/20 09:12 Vitamin B-12 PO 500 mcg DAILY GRECIA Administration Darbepoetin Joel 40 mcg 04/21/20 09:00 Aranesp SQ Q7D GRECIA Ergocalciferol 50,000 unit 04/19/20 09:00 04/19/20 09:12 Vitamin D2 PO 50,000 unit Q14D GRECIA Administration Ferrous Sulfate 325 mg 04/18/20 16:00 04/19/20 16:47 Feosol PO 325 mg TID GRECIA Administration Furosemide 40 mg 04/18/20 21:00 04/19/20 09:12 Lasix IV 40 mg Q12HR GRECIA Administration Gabapentin 300 mg 04/18/20 21:00 04/19/20 09:12 Neurontin PO 300 mg BID GRECIA Administration Glipizide 5 mg 04/19/20 12:30 04/19/20 17:03 Glucotrol PO 5 mg W/LUNCH GRECIA Administration Hydralazine HCl 25 mg 04/18/20 16:00 04/19/20 16:47 Apresoline PO 25 mg TID GRECIA Administration Heparin Sodium/Sodium Chloride 250 mls @ 10 mls/hr 04/18/20 14:15 04/19/20 12:08 25,000 unit/ Sodium Chloride IV 15 units/kg/hr .Q24H GRECIA 14.152 mls/hr Administration Protocol 10.599 UNITS/KG/HR Insulin Aspart 0 unit 04/18/20 17:30 04/19/20 17:03 Novolog SQ 3 unit ACHS GRECIA Administration Protocol Insulin Detemir 30 unit 04/18/20 21:00 04/18/20 20:34 Levemir SQ 30 unit HS GRECIA Administration Isosorbide Mononitrate 60 mg 04/19/20 09:00 04/19/20 09:11 Imdur PO 60 mg DAILY GRECIA Administration Melatonin 5 mg 04/18/20 21:00 04/18/20 20:24 Melatonin PO 5 mg HS GRECIA Administration Metoprolol Tartrate 25 mg 04/18/20 21:00 04/19/20 09:11 Lopressor PO 25 mg BID GRECIA Administration Nitroglycerin 0.4 mg 04/18/20 14:06 Nitrostat SUBLINGUAL Q5M PRN Chest Pain Pantoprazole Sodium 40 mg 04/19/20 07:30 04/19/20 06:43 Protonix PO 40 mg AC-[id number] GRECIA Administration Ropinirole HCl 0.25 mg 04/18/20 21:00 04/19/20 09:12 Requip PO 0.25 mg BID GRECIA Administration Sodium Bicarbonate 650 mg 04/18/20 21:00 04/19/20 09:12 Sodium Bicarbonate Tab PO 650 mg BID GRECIA Administration Objective - Vital Signs Vital signs: Vital Signs Temp 97.6 F 04/19/20 16:00 Pulse 68 04/19/20 17:09 Resp 20 04/19/20 17:09 BP 142/67 04/19/20 16:00 Pulse Ox 96 04/19/20 16:00 Intake & Output 04/19/20 04/19/20 04/20/20 06:59 18:59 06:59 Intake Total 310 552.736 Output Total 400 Balance -90 552.736 Weight 92.8 kg Intake: Intake, IV Titration 212.736 Amount Heparin Sod,Pork in 0.45% 212.736 NaCl 25,000 unit In 0.45 % NaCl 1 250ml.bag @ 10. 599 UNITS/KG/HR 10 mls/hr IV .Q24H [facility] Rx#: [id number] Oral 340 Blood Product 310 Rc Pheresis As-3 Unit 310 [id number] Output: Urine 400 Other: Voiding Method Urinal Toilet # Voids 2 # Bowel Movements 1 - Exam -GENERAL: The patient is alert and oriented x3, not in any acute distress. Lethargic. Obese HEENT: Pupils are round and equally reacting to light. EOMI. No scleral icterus. No conjunctival pallor. Normocephalic, atraumatic. No pharyngeal erythema. No thyromegaly. CARDIOVASCULAR: S1 and S2 present. No murmurs, rubs, or gallops. -PULMONARY: Chest is clear to auscultation, no wheezing or crackles. Right distal palpitation ABDOMEN: Soft, nontender, nondistended, normoactive bowel sounds. No palpable organomegaly. MUSCULOSKELETAL: No joint swelling or deformity. -EXTREMITIES: No cyanosis, clubbing,. Bilateral leg edema NEUROLOGICAL: Gross neurological examination did not reveal any focal deficits. SKIN: No rashes. no petechiae. - Labs CBC & Chem 7: 04/19/20 03:37 04/19/20 03:37 Labs: Abnormal Lab Results - Last 24 Hours (Table) 04/18/20 04/18/20 04/18/20 Range/Units 12:11 18:40 18:40 WBC (3.8-10.6) k/uL RBC (4.30-5.90) m/uL Hgb (13.0-17.5) gm/dL Hct (39.0-53.0) % MCHC (31.0-37.0) g/dL RDW (11.5-15.5) % Neutrophils # (1.3-7.7) k/uL APTT (22.0-30.0) sec Potassium (3.5-5.1) mmol/L BUN (9-20) mg/dL Creatinine (0.66-1.25) mg/dL Glucose (74-99) mg/dL POC Glucose (mg/dL) (75-99) mg/dL Calcium (8.4-10.2) mg/dL Troponin I 6.210 H* (0.000-0.034) ng/mL HDL Cholesterol (40-60) mg/dL Procalcitonin 0.14 H (0.02-0.09) ng/mL Crossmatch See Detail 04/18/20 04/19/20 04/19/20 Range/Units 20:31 03:37 03:37 WBC (3.8-10.6) k/uL RBC (4.30-5.90) m/uL Hgb (13.0-17.5) gm/dL Hct (39.0-53.0) % MCHC (31.0-37.0) g/dL RDW (11.5-15.5) % Neutrophils # (1.3-7.7) k/uL APTT (22.0-30.0) sec Potassium 3.4 L (3.5-5.1) mmol/L BUN 40 H (9-20) mg/dL Creatinine 3.41 H (0.66-1.25) mg/dL Glucose 59 L (74-99) mg/dL POC Glucose (mg/dL) 234 H (75-99) mg/dL Calcium 8.3 L (8.4-10.2) mg/dL Troponin I (0.000-0.034) ng/mL HDL Cholesterol 29 L (40-60) mg/dL Procalcitonin 0.17 H (0.02-0.09) ng/mL Crossmatch 04/19/20 04/19/20 04/19/20 Range/Units 03:37 03:37 05:51 WBC 11.2 H (3.8-10.6) k/uL RBC 2.77 L (4.30-5.90) m/uL Hgb 8.1 L (13.0-17.5) gm/dL Hct 26.6 L (39.0-53.0) % MCHC 30.4 L (31.0-37.0) g/dL RDW 15.8 H (11.5-15.5) % Neutrophils # 9.3 H (1.3-7.7) k/uL APTT 30.9 H (22.0-30.0) sec Potassium (3.5-5.1) mmol/L BUN (9-20) mg/dL Creatinine (0.66-1.25) mg/dL Glucose (74-99) mg/dL POC Glucose (mg/dL) 66 L (75-99) mg/dL Calcium (8.4-10.2) mg/dL Troponin I (0.000-0.034) ng/mL HDL Cholesterol (40-60) mg/dL Procalcitonin (0.02-0.09) ng/mL Crossmatch 04/19/20 04/19/20 04/19/20 Range/Units 06:13 10:13 11:24 WBC (3.8-10.6) k/uL RBC (4.30-5.90) m/uL Hgb (13.0-17.5) gm/dL Hct (39.0-53.0) % MCHC (31.0-37.0) g/dL RDW (11.5-15.5) % Neutrophils # (1.3-7.7) k/uL APTT 38.2 H (22.0-30.0) sec Potassium (3.5-5.1) mmol/L BUN (9-20) mg/dL Creatinine (0.66-1.25) mg/dL Glucose (74-99) mg/dL POC Glucose (mg/dL) 142 H 74 L (75-99) mg/dL Calcium (8.4-10.2) mg/dL Troponin I (0.000-0.034) ng/mL HDL Cholesterol (40-60) mg/dL Procalcitonin (0.02-0.09) ng/mL Crossmatch 04/19/20 04/19/20 Range/Units 17:01 18:12 WBC (3.8-10.6) k/uL RBC (4.30-5.90) m/uL Hgb (13.0-17.5) gm/dL Hct (39.0-53.0) % MCHC (31.0-37.0) g/dL RDW (11.5-15.5) % Neutrophils # (1.3-7.7) k/uL APTT 38.2 H (22.0-30.0) sec Potassium (3.5-5.1) mmol/L BUN (9-20) mg/dL Creatinine (0.66-1.25) mg/dL Glucose (74-99) mg/dL POC Glucose (mg/dL) 213 H (75-99) mg/dL Calcium (8.4-10.2) mg/dL Troponin I (0.000-0.034) ng/mL HDL Cholesterol (40-60) mg/dL Procalcitonin (0.02-0.09) ng/mL Crossmatch Assessment and Plan Assessment: None STEMI acute on chronic diastolic CHF exacerbation Possible right lower lobe pneumonia versus atelectasis, with right pleural effusion Acute on chronic kidney disease secondary to cardiorenal syndrome. Patient with chronic kidney disease stage IV Type 2 diabetes mellitus Hypertension Hyperlipidemia History of coronary artery disease PVD status post stent of the Rt SFA by Dr. Boyd GERD GI bleed History of iron deficiency anemia needing multiple iron transfusion and through the port, he follows up with Dr. Singletary Chronic kidney disease stage IV Nicotine dependence Plan: This is a pleasant 70 years old male who presents with non-STEMI and possible CHF. Continue with heparin drip for 24 hours. Continue with IV Lasix. And Augmentin. Monitor sugar. Follow-up recommendation by cardiology and nephrology team. Cardiology recommended to treat patient medically for now. Labs and medication were reviewed.. Continue same treatment. Continue with symptomatic treatment. Resume home medication. Monitor lytes and vitals. DVT and GI prophylaxis. Further recommendations of the clinical course of the patient DVT prophylaxis: heparin GI Prophylaxis: Pepcid PT/OT: Pending Prognosis is guarded
[2020-04-19] MEDS: NITROGLYCERIN SL TABS 0.4 MG TAB SUBLINGUAL PRN ×2 (20:06→20:25)
[2020-04-19] MEDS ORDERED: NITROGLYCERIN-D5W PMX 50 MG in DEXTROSE/WATER 1 250ML.BAG IV SCH ×2 (20:45→21:15)
[2020-04-19 20:56] LABS: Glucose,Whole Blood 156 mg/dL (75-99)
[2020-04-19] MEDS ORDERED: HEPARIN SODIUM,PORCINE 5,000 UNIT/ML 1 ML VIAL IV PRN (21:10)
[2020-04-19 21:36] LABS: Calcium 8.4 mg/dL (8.4-10.2); Magnesium 1.9 mg/dL (1.6-2.3)
[2020-04-19] MEDS ORDERED: HYDROmorphone 0.5 MG/0.5 ML SYRINGE IVP PRN (22:08)
[2020-04-19] MEDS: ALPRAZolam 0.25 MG TAB PO PRN (22:27)
[2020-04-19] MEDS: MELATONIN 5 MG TABLET PO SCH (22:27)
[2020-04-19] MEDS: ATORVASTATIN 20 MG TAB PO SCH (22:28)
[2020-04-19] MEDS: INSULIN DETEMIR (LEVEMIR) 100 UNIT/ML SYR SQ SCH (22:42)
[2020-04-20 00:53] LABS: % Iron Saturation 12.79 (15.00-50.00)
[2020-04-20 01:02] LABS: Ferritin 60.6 ng/mL (22.0-322.0)
[2020-04-20 03:41] LABS: Basophils % (A) 0 %; Eosinophils # (A) 0.1 k/uL (0-0.7); Eosinophils % (A) 1 %; HCT 25.4 % (39.0-53.0); HGB 7.9 gm/dL (13.0-17.5); Hypochromasia Moderate; Lymphocytes # (A) 0.8 k/uL (1.0-4.8); Lymphocytes % (A) 9 %; MCHC 30.9 g/dL (31.0-37.0); Mean Platelet Volume 8.4; Monocytes # (A) 0.5 k/uL (0-1.0); Monocytes % (A) 5 %; Neutrophils # (A) 7.7 k/uL (1.3-7.7); Neutrophils % (A) 83 %; Platelet Count 394 k/uL (150-450); Poikilocytosis Slight; RBC 2.62 m/uL (4.30-5.90); RDW 15.8 % (11.5-15.5); WBC 9.2 k/uL (3.8-10.6)
[2020-04-20 03:57] LABS: Calcium 8.3 mg/dL (8.4-10.2); Potassium 3.7 mmol/L (3.5-5.1)
[2020-04-20 06:09] LABS: Glucose,Whole Blood 98 mg/dL (75-99)
[2020-04-20] MEDS: INSULIN ASPART (NovoLOG) 100 UNIT/ML VIAL SQ SCH ×4 (07:11→22:34)
[2020-04-20] MEDS: PANTOPRAZOLE 40 MG TABLET PO SCH (07:15)
[2020-04-20] MEDS: METOPROLOL TARTRATE 25 MG TAB PO SCH ×3 (08:26→22:32)
[2020-04-20] MEDS: FERROUS SULFATE 325 MG TAB PO SCH ×3 (08:26→22:31)
[2020-04-20] MEDS: AMOXIC-POT CLAV 875-125MG 1 EACH TAB PO SCH ×2 (08:26→22:31)
[2020-04-20] MEDS: ASPIRIN 325 MG TAB PO SCH (08:26)
[2020-04-20] MEDS: GABAPENTIN 300 MG CAP PO SCH ×2 (08:26→22:32)
[2020-04-20] MEDS: FUROSEMIDE 10 MG/ML 4 ML VIAL IV SCH ×2 (08:26→22:33)
[2020-04-20] MEDS: hydrALAZINE HCL 25 MG TAB PO SCH ×3 (08:26→22:32)
[2020-04-20] MEDS: SODIUM BICARBONATE TAB 650 MG TAB PO SCH ×2 (08:26→22:46)
[2020-04-20] MEDS: amLODIPine 5 MG TAB PO SCH (08:27)
[2020-04-20] MEDS: ASCORBIC ACID 500 MG TAB PO SCH (08:27)
[2020-04-20] MEDS: CYANOCOBALAMIN 500 MCG TAB PO SCH (08:27)
[2020-04-20] MEDS: RANOLAZINE 500 MG TAB.ER.12H PO SCH ×3 (10:11→22:31)
[2020-04-20] MEDS: ISOSORBIDE MONONITRATE ER 60 MG TAB.ER.24H PO SCH ×2 (10:12→22:32)
--- NOTE | 2020-04-20 10:58 | XR ---
EXAMINATION TYPE: XR chest 1V DATE OF EXAM: 04/20/2020 CLINICAL HISTORY: Shortness of breath TECHNIQUE: Portable upright view of the chest obtained COMPARISON: 04/18/2020 chest radiograph FINDINGS: Right-sided MediPort. The cardiomediastinal silhouette is within normal limits for size. T here is decreased persistent small right pleural effusion and right basilar airspace opacities. No pn eumothorax. IMPRESSION: Persistent small right pleural effusion and right basilar airspace opacities are decrease d versus 04/18/2020.
--- NOTE | 2020-04-20 12:23 | PN ---
PROGRESS NOTE Mr. Hines had an episode of chest pain requiring nitroglycerin. He is resting comfortably. Creatinine is 3.5. I spent a lot of time with the patient, explained to him that we will pursue medical therapy rather than perform a cardiac cath with intravenous contrast which will precipitate the need for dialysis. The patient understands this very well. I will place him on Imdur, wean off the nitroglycerin drip, increase the beta real and add Ranexa. Creatinine is elevated. I will also check additional troponin. If he has any additional pain that is persistent, will consider cardiac cath. The patient is aware of the possibility of worsening renal failure and need for dialysis. However, at this time, he is comfortable, resting without symptoms. EKG was reviewed. No acute changes. JVD is evident. Systolic murmur is evident. Lungs reveal bilateral decent air entry. Abdomen and lower extremity exam unchanged. The patient has multiple comorbid conditions including chronic kidney disease, CAD, prior intervention and also peripheral arterial disease. Prognosis remains guarded. Will obtain an additional troponin level today. MMODL / IJN: [id number] /
[2020-04-20 12:33] LABS: Glucose,Whole Blood 286 mg/dL (75-99)
[2020-04-20] MEDS: glipiZIDE 5 MG TAB PO SCH (12:34)
--- NOTE | 2020-04-20 13:50 | P.PN ---
Subjective This is a pleasant 70 years old male with past medical history of diabetes mellitus, hyperlipidemia, hypertension, GI bleed, chronic kidney disease stage IV, iron deficiency anemia and he follows with Dr. Singletary and receiving multiple iron transfusion through his port and the right upper chest, chronic low back pain with bilateral sciatica, vertigo, coronary artery disease . He follows up in the [facility], with Dr. Stone, with Dr. Singletary Presents because of dyspnea of 3 days' duration associated with left-sided chest pain radiating to the left arm, left neck and jaw and the back, not about 3-4/10 in severity, felt like sharp increase by deep breathing and coughing. Patient has chronic cough with yellow phlegm He denies sweating, dizziness, palpitation or vomiting. No reports of abdominal pain. No vomiting, bowel movement is fine and no urinary problem He smokes about 1 pack per day, patient is counseled and agrees to quit, he agrees to nicotine patch. He denies alcohol or illicit drugs Vitals are stable and he is saturating 95% on 2 L oxygen via nasal cannula he has mild leukocytosis of 11.2 K, hemoglobin 7.8, platelets normal. INR 0.9, creatinine 2.99 with baseline 2.7-3.4. Liver enzymes not elevated, troponin is elevated at 6.62. ProBNP is 8730. Chest x-ray: Possible right lower lobe atelectasis or pneumonia and associated effusion. Prominence of interstitial is again seen. EKG showing normal sinus rhythm at [address]-T changes, QTC 466. Emergency room patient received bronchodilator, nitroglycerin and heparin drip, also got 1 dose of Lasix and got 1 unit of blood transfusion. She looks appro priate since he has low hemoglobin which affects her oxygenation of the heart 04/19/2020 Patient was lying comfortable today. Lethargic he denies chest pain, mild dyspnea. Nephrology input is appreciated and checking the patient for stage IV kidney disease and the recommended to continue with Lasix for now. Patient remains on heparin drip for another 24 hours I discussed the case with cardiolo gy team recommended to treat him medically. Augmentin is been added for possible right sided pneumonia, repeat chest x-ray in the morning. Echocardiogram showing ejection fraction of 50-55% with infe rior hypokinesia and a right right ventricle and cannot exclude vegetation. VQ scan is low probability for PE in view of slightly elevated d-dimer Prognosis remains guarded 04/20/2020 Patient developed respiratory distress last night and he needed BiPAP however could not tolerate it for more than half an hour, this morning he needed to 5 L oxygen via nasal cannula and he was some respiratory distress, currently is been treated for number STEMI and CHF also the suspicion of the right lower lobe pneumonia with right pleural effusion, patient treated medically with no cardiac cath in view of his advanced kidney disease. Cardiogenic nephrology team on the case. Chest ultrasound was ordered, and also consult pulmonary service in view of worsening of his pulmonary status. He remains on heparin drip today may be switched to subcutaneous heparin after 48 hours of treatment for his non-STEMI. He remains on Lasix today at 40 mg IV twice daily. Also he is on Augmentin. Creatinine 3.5 which is stable compared to yesterday. Sugar control. Troponin is 6.2 which is a stable. WBCs back to normal at 9.2 Review of Systems CONSTITUTIONAL: No fever, no malaise, no fatigue. HEENT: No recent visual problems or hearing problems. Denied any sore throat. CARDIOVASCULAR: No orthopnea, PND, no palpitations, no syncope. PULMONARY: no hemoptysis. GASTROINTESTINAL: No diarrhea, no nausea, no vomiting, no abdominal pain. Normoactive bowel sounds. NEUROLOGICAL: No headaches, no weakness, no numbness. HEMATOLOGICAL: Denies any bleeding or petechiae. GENITOURINARY: Denies any burning micturition, frequency, or urgency. MUSCULOSKELETAL/RHEUMATOLOGICAL: Denies any joint pain, swelling, or any muscle pain. ENDOCRINE: Denies any polyuria or polydipsia. Active Medications Generic Name Dose Route Start Last Admin Trade Name Freq PRN Reason Stop Dose Admin Alprazolam 0.25 mg 04/19/20 22:05 04/19/20 22:27 Xanax PO 0.25 mg TID PRN Administration Mild Anxiety Amlodipine Besylate 5 mg 04/19/20 09:00 04/20/20 08:27 Norvasc PO 5 mg DAILY [facility] Administration Amoxicillin/Clavulanate Potassium 1 each 04/19/20 10:45 04/20/20 08:26 Augmentin 875-125 PO 1 each Q12HR [facility] Administration Ascorbic Acid 500 mg 04/19/20 09:00 04/20/20 08:27 Vitamin C PO 500 mg DAILY [facility] Administration Aspirin 81 mg 04/21/20 09:00 Aspirin PO DAILY [facility] Atorvastatin Calcium 20 mg 04/18/20 21:00 04/19/20 22:28 Lipitor PO 20 mg HS [facility] Administration Calcitriol 0.25 mcg 04/24/20 14:10 Rocaltrol PO SANTOS [facility] Cyanocobalamin 500 mcg 04/19/20 09:00 04/20/20 08:27 Vitamin B-12 PO 500 mcg DAILY [facility] Administration Darbepoetin Joel 40 mcg 04/21/20 09:00 Aranesp SQ Q7D [facility] Ergocalciferol 50,000 unit 04/19/20 09:00 04/19/20 09:12 Vitamin D2 PO 50,000 unit Q14D [facility] Administration Ferrous Sulfate 325 mg 04/18/20 16:00 04/20/20 08:26 Feosol PO 325 mg TID [facility] Administration Furosemide 40 mg 04/18/20 21:00 04/20/20 08:26 Lasix IV 40 mg Q12HR [facility] Administration Gabapentin 300 mg 04/18/20 21:00 04/20/20 08:26 Neurontin PO 300 mg BID [facility] Administration Glipizide 5 mg 04/19/20 12:30 04/20/20 12:34 Glucotrol PO 5 mg W/LUNCH [facility] Administration Heparin Sodium (Porcine) 0 unit 04/19/20 21:10 04/19/20 21:26 Heparin IV 2,320 unit PER PROTOCOL PRN Administration Low PTT Protocol Hydralazine HCl 25 mg 04/18/20 16:00 04/20/20 08:26 Apresoline PO 25 mg TID [facility] Administration Hydromorphone HCl 0.5 mg 04/19/20 22:08 Dilaudid IVP Q4HR PRN Pain Heparin Sodium/Sodium Chloride 250 mls @ 10 mls/hr 04/18/20 14:15 04/19/20 21:08 25,000 unit/ Sodium Chloride IV 17 units/kg/hr .Q24H [facility] 16.039 mls/hr Titration Protocol 10.599 UNITS/KG/HR Insulin Aspart 0 unit 04/18/20 17:30 04/20/20 12:34 Novolog SQ 5 unit ACHS [facility] Administration Protocol Insulin Detemir 30 unit 04/18/20 21:00 04/19/20 22:42 Levemir SQ 30 unit HS [facility] Administration Isosorbide Mononitrate 60 mg 04/20/20 09:15 04/20/20 10:12 Imdur PO 60 mg BID [facility] Administration Melatonin 5 mg 04/18/20 21:00 04/19/20 22:27 Melatonin PO 5 mg HS [facility] Administration Metoprolol Tartrate 25 mg 04/20/20 16:00 Lopressor PO TID [facility] Nitroglycerin 0.4 mg 04/18/20 14:06 04/19/20 20:25 Nitrostat SUBLINGUAL 0.4 mg Q5M PRN Administration Chest Pain Pantoprazole Sodium 40 mg 04/19/20 07:30 04/20/20 07:15 Protonix PO 40 mg [id number] [facility] Administration Ranolazine 500 mg 04/20/20 09:15 04/20/20 10:12 Ranexa PO 500 mg Q12HR [facility] Administration Ropinirole HCl 0.25 mg 04/18/20 21:00 04/20/20 08:27 Requip PO 0.25 mg BID [facility] Administration Sodium Bicarbonate 650 mg 04/18/20 21:00 04/20/20 08:26 Sodium Bicarbonate Tab PO 650 mg BID [facility] Administration Objective - Vital Signs Vital signs: Vital Signs Temp 97 F L 04/20/20 08:00 Pulse 70 04/20/20 12:00 Resp 16 04/20/20 12:00 BP 146/53 04/20/20 12:00 Pulse Ox 96 04/20/20 08:00 Intake & Output 04/19/20 04/20/20 04/20/20 18:59 06:59 18:59 Intake Total 552.736 127.368 Output Total 750 300 Balance 552.736 -622.632 -300 Weight 94.5 kg Intake: Intake, IV Titration 212.736 127.368 Amount Heparin Sod,Pork in 0.45% 212.736 127.368 NaCl 25,000 unit In 0.45 % NaCl 1 250ml.bag @ 10. 599 UNITS/KG/HR 10 mls/hr IV .Q24H [facility] Rx#: [id number] Oral 340 Output: Urine 750 300 Other: Voiding Method Toilet Toilet # Voids 2 1 # Bowel Movements 1 - Exam -GENERAL: The patient is alert and oriented x3, not in any acute distress. Lethargic. Obese HEENT: Pupils are round and equally reacting to light. EOMI. No scleral icterus. No conjunctival pallor. Normocephalic, atraumatic. No pharyngeal erythema. No thyromegaly. CARDIOVASCULAR: S1 and S2 present. No murmurs, rubs, or gallops. -PULMONARY: Chest is clear to auscultation, no wheezing or crackles. Right distal palpitation ABDOMEN: Soft, nontender, nondistended, normoactive bowel sounds. No palpable organomegaly. MUSCULOSKELETAL: No joint swelling or deformity. -EXTREMITIES: No cyanosis, clubbing,. Bilateral leg edema NEUROLOGICAL: Gross neurological examination did not reveal any focal deficits. SKIN: No rashes. no petechiae. - Labs CBC & Chem 7: 04/20/20 03:03 04/20/20 03:03 Labs: Abnormal Lab Results - Last 24 Hours (Table) 04/19/20 04/19/20 04/19/20 Range/Units 03:33 17:01 18:12 RBC (4.30-5.90) m/uL Hgb (13.0-17.5) gm/dL Hct (39.0-53.0) % MCHC (31.0-37.0) g/dL RDW (11.5-15.5) % Lymphocytes # (1.0-4.8) k/uL APTT 38.2 H (22.0-30.0) sec BUN (9-20) mg/dL Creatinine (0.66-1.25) mg/dL Glucose (74-99) mg/dL POC Glucose (mg/dL) 213 H (75-99) mg/dL Calcium (8.4-10.2) mg/dL Iron 33 L (65-175) ug/dL % Saturation 12.79 L (15.00-50.00) Troponin I (0.000-0.034) ng/mL Procalcitonin (0.02-0.09) ng/mL 04/19/20 04/19/20 04/20/20 Range/Units 20:55 20:55 03:03 RBC (4.30-5.90) m/uL Hgb (13.0-17.5) gm/dL Hct (39.0-53.0) % MCHC (31.0-37.0) g/dL RDW (11.5-15.5) % Lymphocytes # (1.0-4.8) k/uL APTT (22.0-30.0) sec BUN 43 H (9-20) mg/dL Creatinine 3.65 H (0.66-1.25) mg/dL Glucose 135 H (74-99) mg/dL POC Glucose (mg/dL) 156 H (75-99) mg/dL Calcium (8.4-10.2) mg/dL Iron (65-175) ug/dL % Saturation (15.00-50.00) Troponin I (0.000-0.034) ng/mL Procalcitonin 0.17 H (0.02-0.09) ng/mL 04/20/20 04/20/20 04/20/20 Range/Units 03:03 03:03 03:03 RBC 2.62 L (4.30-5.90) m/uL Hgb 7.9 L (13.0-17.5) gm/dL Hct 25.4 L (39.0-53.0) % MCHC 30.9 L (31.0-37.0) g/dL RDW 15.8 H (11.5-15.5) % Lymphocytes # 0.8 L (1.0-4.8) k/uL APTT 56.4 H (22.0-30.0) sec BUN 44 H (9-20) mg/dL Creatinine 3.52 H (0.66-1.25) mg/dL Glucose 120 H (74-99) mg/dL POC Glucose (mg/dL) (75-99) mg/dL Calcium 8.3 L (8.4-10.2) mg/dL Iron (65-175) ug/dL % Saturation (15.00-50.00) Troponin I (0.000-0.034) ng/mL Procalcitonin (0.02-0.09) ng/mL 04/20/20 04/20/20 Range/Units 09:19 12:28 RBC (4.30-5.90) m/uL Hgb (13.0-17.5) gm/dL Hct (39.0-53.0) % MCHC (31.0-37.0) g/dL RDW (11.5-15.5) % Lymphocytes # (1.0-4.8) k/uL APTT (22.0-30.0) sec BUN (9-20) mg/dL Creatinine (0.66-1.25) mg/dL Glucose (74-99) mg/dL POC Glucose (mg/dL) 286 H (75-99) mg/dL Calcium (8.4-10.2) mg/dL Iron (65-175) ug/dL % Saturation (15.00-50.00) Troponin I 6.260 H* (0.000-0.034) ng/mL Procalcitonin (0.02-0.09) ng/mL Assessment and Plan Assessment: None STEMI acute on chronic diastolic CHF exacerbation Possible right lower lobe pneumonia versus atelectasis, with right pleural effusion Acute hypoxic respiratory failure Acute on chronic kidney disease secondary to cardiorenal syndrome. Patient with chronic kidney disease stage IV Type 2 diabetes mellitus Hypertension Hyperlipidemia History of coronary artery disease PVD status post stent of the Rt SFA by Dr. Boyd GERD GI bleed History of iron deficiency anemia needing multiple iron transfusion and through the port, he follows up with Dr. Singletary Chronic kidney disease stage IV Nicotine dependence Plan: This is a pleasant 70 years old male who presents with non-STEMI and possible CHF. Continue with heparin drip for 24 hours. Continue with IV Lasix. And Augmentin. Monitor sugar. Follow-up recommendation by cardiology and nephrology team. Cardiology recommended to treat patient medically for now. Check ultrasound of the chest and consult pulmonary for worsening respiratory symptoms Labs and medication were reviewed.. Continue same treatment. Continue with symptomatic treatment. Resume home medication. Monitor lytes and vitals. DVT and GI prophylaxis. Further recommendations of the clinical course of the patient DVT prophylaxis: heparin GI Prophylaxis: Pepcid PT/OT: Pending Prognosis is guarded
[2020-04-20] MEDS ORDERED: IPRATROPIUM-ALBUTEROL 3 ML NEB INHALATION PRN (13:53)
--- NOTE | 2020-04-20 14:06 | P.CNPUL ---
History of Present Illness Consult date: 04/20/20 Requesting physician: Thierry E Sheet Reason for consult: dyspnea, cough, chest pain, abnormal CXR/CT Chief complaint: Shortness of breath, chest pain, cough History of present illness: 70-year-old white male patient of Gin Webber PA-C from the [facility], chronic and ongoing smoker, carries 55 years of smoking history, currently down to 1 pack a day, was up to 2-3 packs a day in the past, chronic anemia, under the care of Dr. Singletary, coronary artery disease, diabetes mellitus, GERD/reflux, hypertension, hyperlipidemia, chronic kidney disease stage IV, depression, PTSD, who recently had a right IJ MediPort inserted by Dr. Toth on 03/25/2020 related to a need for multiple iron transfusions for history of chronic anemia. Last 04/12/2020 patient had left-sided chest pain with radiation to his left arm, shoulder, and jaw, that lasted over 20 minutes, patient took 2 nitrogly cerin sublingually, and eventually the chest pain resolved, but ever since then patient was having increased shortness of breath, and his noticed increased peripheral edema, with increased swelling in his lower extremities, and abdominal distention. On 04/18/2020 patient had an appointment with Dr. Singletary, and he was significantly short of breath, with increased peripheral swelling, and he was directed to go to the emergency department for evaluation. Patient had also been having on-and-off chest pain, radiating to his jaw, and orthopnea. Initial chest x-ray in the emergency department showed a possible right lower lobe atelectasis or pneumonia and associated effusion and prominent interstitium suggesting fluid overload. EKG showed normal sinus rhythm with a rate of 64 with a inferior infarct of undetermined age. Lab work showed a white blood cell count of 11.2, hemoglobin was 7.8, d-dimer was 0.71, electrolytes were within normal limits, BUN was 42, creatinine was 2.9, proBNP was 8730, troponins were 6.610, 6.690, 6.210, 6.260. Echocardiogram showed low normal LV function with an EF 50-55%, inferior hypokinesis, severe mitral annular calcification, mild mitral regurgitation, there was a questionable 1 cm echodensity that could represent part of the chordae however a vegetation could not completely be excluded. Mild TR, right-sided pressure was less than 35 mmH g. Patient was ruled in for non-ST elevated myocardial infarction, cardiology is following. However knowing 24 hours his oxygen demand has increased, he is currently up to 5 L/m, last night he experienced increased shortness of breath, required BiPAP support, he had been on IV Lasix at 40 mg every 12 hours, is been diuresing, and his lower extremity edema has been improving gradually. Repeat chest x-ray today was obtained showing persistent small right pleural effusion and right basilar airspace opacity decreased since admission on 04/18/2020. Occasional cough, reducing small amount of yellow-colored phlegm, no hemoptysis. No altered mentation, no leukocytosis on today's labs. Procalcitonin level came back an intermediate range of 0.14, no fever or chills. Review of Systems All systems: negative Constitutional: Denies chills, Denies fever Eyes: denies blurred vision, denies pain Ears, nose, mouth and throat: Denies headache, Denies sore throat Cardiovascular: Reports chest pain, Reports leg edema, Reports orthopnea, Denies shortness of breath Respiratory: Reports congestion, Reports cough with sputum, Reports dyspnea, Reports wheezing, Denies cough Gastrointestinal: Denies abdominal pain, Denies diarrhea, Denies nausea, Denies vomiting Musculoskeletal: Denies myalgias Integumentary: Denies pruritus, Denies rash Neurological: Denies numbness, Denies weakness Psychiatric: Denies anxiety, Denies depression Endocrine: Denies fatigue, Denies weight change Past Medical History Past Medical History: Coronary Artery Disease (CAD), Chest Pain / Angina, Diabetes Mellitus, GERD/Reflux, GI Bleed, Hyperlipidemia, Hypertension, Renal Disease, Vascular Disorder Additional Past Medical History / Comment(s): Insomnia, abdominal distention that comes and goes,hx partial sbo. epistaxis, sciatica, neuropathy lower GI bleed, benign colon polyp, IDDM type II, low back renal disease stage lV, past fx lt wrist, uti, anemia has had received iron infusions in past History of Any Multi-Drug Resistant Organisms: None Reported Past Surgical History: Cholecystectomy, Heart Catheterization Additional Past Surgical History / Comment(s): R carotid stent done in [place], EGD/colonoscopyDecember 2016, fx lt wrist -sx re-set. Past Anesthesia/Blood Transfusion Reactions: No Reported Reaction Additional Past Anesthesia/Blood Transfusion Reaction / Comment(s): Bld transfusion in Feb per Past Psychological History: Depression, PTSD Smoking Status: Current every day smoker Past Alcohol Use History: None Reported Past Drug Use History: Marijuana - Past Family History Father History Unknown: Yes Mother Family Medical History: Cancer Additional Family Medical History / Comment(s): Mother from metastatic cancer pelvic origin. Medications and Allergies Home Medications Medication Instructions Recorded Confirmed Type Ergocalciferol (Vitamin D2) 50,000 unit PO Q14D 07/18/17 04/18/20 History [Vitamin D2] Metoprolol Tartrate [Lopressor] 25 mg PO BID 07/18/17 04/18/20 History Simvastatin [Zocor] 40 mg PO HS 07/18/17 04/18/20 History Aspirin EC [Ecotrin Low Dose] 81 mg PO HS 02/10/18 04/18/20 History Ferrous Sulfate [Iron (65 MG 325 mg PO TID 02/10/18 04/18/20 History Elemental)] Isosorbide Mononitrate ER [Imdur] 60 mg PO DAILY 03/04/18 04/18/20 History Cyanocobalamin [Vitamin B-12] 500 mcg PO DAILY 09/23/18 04/18/20 History Insulin Glargine [Lantus] 30 unit SQ HS 09/23/18 04/18/20 History hydrALAZINE HCL 25 mg PO TID 09/23/18 04/18/20 History Gabapentin [Neurontin] 300 mg PO BID 01/09/19 04/18/20 History rOPINIRole HCL [Requip] 0.25 mg PO BID 01/09/19 04/18/20 History Melatonin 5 mg PO HS 05/22/19 04/18/20 History glipiZIDE [Glucotrol] 5 mg PO W/LUNCH 05/22/19 04/18/20 History amLODIPine [Norvasc] 5 mg PO DAILY 06/22/19 04/18/20 History calcitrioL [Rocaltrol] 0.25 mcg PO SANTOS 09/17/19 04/18/20 History Furosemide [Lasix] 40 mg PO DAILY 09/25/19 04/18/20 History Omeprazole [PriLOSEC] 20 mg PO AC-BRKFST 09/25/19 04/18/20 History Sodium Bicarbonate 650 mg PO BID 03/22/20 04/18/20 History Clopidogrel [Plavix] 75 mg PO HS 04/18/20 04/18/20 History Allergies Allergy/AdvReac Type Severity Reaction Status Date / Time Iodinated Contrast Media Allergy Unknown Verified 04/18/20 17:40 Iodine and Iodide Containing Allergy Unknown Verified 04/18/20 17:40 Produc Physical Exam Vitals: Vital Signs Temp Pulse Resp BP Pulse Ox 04/20/20 12:00 70 16 146/53 04/20/20 08:00 97 F L 65 16 146/66 96 04/20/20 04:00 98.1 F 77 18 139/70 95 04/20/20 00:00 98.1 F 69 18 124/52 97 04/19/20 20:16 75 24 151/70 96 04/19/20 20:00 75 24 04/19/20 17:09 68 16 04/19/20 16:00 97.6 F 74 16 142/67 96 Intake and Output 04/19/20 04/20/20 04/20/20 22:59 06:59 14:59 Intake Total 227.368 Output Total 200 550 300 Balance 27.368 -550 -300 Intake: Intake, IV Titration 127.368 Amount Heparin Sod,Pork in 0.45% 127.368 NaCl 25,000 unit In 0.45 % NaCl 1 250ml.bag @ 10. 599 UNITS/KG/HR 10 mls/hr IV .Q24H COUNT INCLUDES THE [facility] Rx#: [id number] Oral 100 Output: Urine 200 550 300 Other: Voiding Method Toilet Toilet # Voids 2 1 # Bowel Movements 1 Weight 94.5 kg GENERAL EXAM: Alert, very pleasant, 70-year-old white male, resting in bed, on 5 L of oxygen the pulse ox of 96%, did require BiPAP support last night, comfortable in no apparent distress. HEAD: Normocephalic/atraumatic. EYES: Normal reaction of pupils, equal size. Conjunctiva pink, sclera white. NOSE: Clear with pink turbinates. THROAT: No erythema or exudates. NECK: No masses, no JVD, no thyroid enlargement, no adenopathy. CHEST: No chest wall deformity. Symmetrical expansion. LUNGS: Equal air entry with diffuse wheezes congested cough CVS: Regular rate and rhythm, normal S1 and S2, no gallops, no murmurs, no rubs ABDOMEN: Soft, nontender. No hepatosplenomegaly, normal bowel sounds, no guarding or rigidity. EXTREMITIES: No clubbing, 1+ lower extremity edema, no cyanosis, 2+ pulses and upper and lower extremities. MUSCULOSKELETAL: Muscle strength and tone normal. SPINE: No scoliosis or deformity SKIN: No rashes CENTRAL NERVOUS SYSTEM: Alert and oriented -3. No focal deficits, tone is normal in all 4 extremities. PSYCHIATRIC: Alert and oriented -3. Appropriate affect. Intact judgment and insight. Results - Laboratory Findings CBC and BMP: 04/20/20 03:03 04/20/20 03:03 PT/INR, D-dimer PT 9.5 sec (9.0-12.0) 04/18/20 12:08 INR 0.9 (<1.2) 04/18/20 12:08 D-Dimer 0.71 mg/L FEU (<0.60) H 04/18/20 12:08 Abnormal lab findings: Abnormal Labs 04/18/20 04/18/20 04/18/20 12:08 12:08 12:08 WBC 11.2 H RBC 2.57 L Hgb 7.8 L Hct 25.1 L MCHC RDW Neutrophils # 9.5 H Lymphocytes # 0.8 L APTT D-Dimer 0.71 H Potassium BUN 42 H Creatinine 2.99 H Glucose 152 H POC Glucose (mg/dL) Calcium Iron % Saturation Creatine Kinase 49 L Troponin I Total Protein 5.8 L Albumin 3.1 L HDL Cholesterol Procalcitonin Crossmatch 04/18/20 04/18/20 04/18/20 12:08 12:11 15:17 WBC RBC Hgb Hct MCHC RDW Neutrophils # Lymphocytes # APTT D-Dimer Potassium BUN Creatinine Glucose POC Glucose (mg/dL) Calcium Iron % Saturation Creatine Kinase Troponin I 6.610 H* 6.690 H* Total Protein Albumin HDL Cholesterol Procalcitonin Crossmatch See Detail 04/18/20 04/18/20 04/18/20 16:53 18:40 18:40 WBC RBC Hgb Hct MCHC RDW Neutrophils # Lymphocytes # APTT D-Dimer Potassium BUN Creatinine Glucose POC Glucose (mg/dL) 163 H Calcium Iron % Saturation Creatine Kinase Troponin I 6.210 H* Total Protein Albumin HDL Cholesterol Procalcitonin 0.14 H Crossmatch 04/18/20 04/19/20 04/19/20 20:31 03:33 03:37 WBC RBC Hgb Hct MCHC RDW Neutrophils # Lymphocytes # APTT D-Dimer Potassium BUN Creatinine Glucose POC Glucose (mg/dL) 234 H Calcium Iron 33 L % Saturation 12.79 L Creatine Kinase Troponin I Total Protein Albumin HDL Cholesterol Procalcitonin 0.17 H Crossmatch 04/19/20 04/19/20 04/19/20 03:37 03:37 03:37 WBC 11.2 H RBC 2.77 L Hgb 8.1 L Hct 26.6 L MCHC 30.4 L RDW 15.8 H Neutrophils # 9.3 H Lymphocytes # APTT 30.9 H D-Dimer Potassium 3.4 L BUN 40 H Creatinine 3.41 H Glucose 59 L POC Glucose (mg/dL) Calcium 8.3 L Iron % Saturation Creatine Kinase Troponin I Total Protein Albumin HDL Cholesterol 29 L Procalcitonin Crossmatch 04/19/20 04/19/20 04/19/20 05:51 06:13 10:13 WBC RBC Hgb Hct MCHC RDW Neutrophils # Lymphocytes # APTT 38.2 H D-Dimer Potassium BUN Creatinine Glucose POC Glucose (mg/dL) 66 L 142 H Calcium Iron % Saturation Creatine Kinase Troponin I Total Protein Albumin HDL Cholesterol Procalcitonin Crossmatch 04/19/20 04/19/20 04/19/20 11:24 17:01 18:12 WBC RBC Hgb Hct MCHC RDW Neutrophils # Lymphocytes # APTT 38.2 H D-Dimer Potassium BUN Creatinine Glucose POC Glucose (mg/dL) 74 L 213 H Calcium Iron % Saturation Creatine Kinase Troponin I Total Protein Albumin HDL Cholesterol Procalcitonin Crossmatch 04/19/20 04/19/20 04/20/20 20:55 20:55 03:03 WBC RBC Hgb Hct MCHC RDW Neutrophils # Lymphocytes # APTT D-Dimer Potassium BUN 43 H Creatinine 3.65 H Glucose 135 H POC Glucose (mg/dL) 156 H Calcium Iron % Saturation Creatine Kinase Troponin I Total Protein Albumin HDL Cholesterol Procalcitonin 0.17 H Crossmatch 04/20/20 04/20/20 04/20/20 03:03 03:03 03:03 WBC RBC 2.62 L Hgb 7.9 L Hct 25.4 L MCHC 30.9 L RDW 15.8 H Neutrophils # Lymphocytes # 0.8 L APTT 56.4 H D-Dimer Potassium BUN 44 H Creatinine 3.52 H Glucose 120 H POC Glucose (mg/dL) Calcium 8.3 L Iron % Saturation Creatine Kinase Troponin I Total Protein Albumin HDL Cholesterol Procalcitonin Crossmatch 04/20/20 04/20/20 09:19 12:28 WBC RBC Hgb Hct MCHC RDW Neutrophils # Lymphocytes # APTT D-Dimer Potassium BUN Creatinine Glucose POC Glucose (mg/dL) 286 H Calcium Iron % Saturation Creatine Kinase Troponin I 6.260 H* Total Protein Albumin HDL Cholesterol Procalcitonin Crossmatch - Diagnostic Findings Chest x-ray: report reviewed, image reviewed Additional studies: EKG reviewed, echocardiogram reviewed Assessment and Plan Plan: Assessment: #1. Acute hypoxic respiratory failure related to acute exacerbation of CHF with diastolic dysfunction, and possibility of a right lower lobe pneumonia is not excluded, though felt to be less likely. Possibility of pulmonary embolism ru led out via negative VQ scan with low probability #2. Right-sided pleural effusion, ultrasound the chest is pending #3. Non-ST elevated myocardial infarction #4. Acute exacerbation of COPD #5. Acute kidney injury on top of chronic kidney disease stage IV, related to cardiorenal syndrome, and possibility of diuretic therapy #6. Insulin-dependent diabetes mellitus #7. Long history of smoking, carries 55 years of smoking up to 2-3 packs per day, currently down to 1 pack a day #8. Symptomatic anemia, requiring multiple iron transfusions, patient is under the care of Dr. Singletary #9. Hypertension #10. Peripheral vascular disease, with previous intervention for total occlusion of the right SFA, and PTCA and stenting of the left SFA #11. Carotid artery disease with previous stenting Plan: We'll add nebulized bronchodilators, IV steroids, patient is bronchospastic, congested on today's exam, suspect underlying COPD, chest x-ray has been reviewed, and the right basilar airspace opacity has actually improved from the admission chest x-ray, continue antibiotics, patient has had no fever, no leukocytosis on today's labs, procalcitonin level only very mildly elevated, which could be related to his abnormal renal function. Ultrasound of the chest is pending, will review once completed. May consider thoracentesis if shows a sizable fluid pocket on the right, especially in view of worsening renal function. We'll continue to follow I performed a history & physical examination of the patient and discussed their management with my nurse practitioner, Arelis Mohamud. I reviewed the nurse practitioner's note and agree with the documented findings and plan of care. Lung sounds are positive for diffuse wheezes throughout the lung wing. The findings and the impression was discussed with the patient. I attest to the documentation by the nurse practitioner. Time with Patient: Greater than 30
--- NOTE | 2020-04-20 15:29 | PN ---
PROGRESS NOTE Patient is seen for followup for acute kidney injury on top of chronic kidney disease. His baseline creatinine is around 3 mg/dL. Patient is currently being diuresed. He is maintained on Lasix 40 mg q.12 hours. He states that he feels better than on admission, although his weight has not decreased; in fact, it is high. I am not sure this is accurate. [id number] urine output is not accurately charted. It appears the patient had about 750 mL of urine. Lasix is currently 40 mg IV q.12 hours. Serum creatinine at 3.5, which is down from 3.65 yesterday. PHYSICAL EXAMINATION: On examination today, blood pressure was 146/66, heart rate 65 per minute. Patient is afebrile. EXAMINATION OF THE HEART: S1 and S2. EXAMINATION OF LUNGS: Bilateral breath sounds are heard. ABDOMEN: Soft, non-tender. Examination of lower extremities shows edema 1+ bilaterally. [employer] EDITOR exam is grossly intact. LABS: Labs show hemoglobin 7.9, sodium 140, potassium 3.7, BUN 44, serum creatinine 3.52. Troponin 6.2. ASSESSMENT: 1. Chest pain from this morning with positive troponin, being followed by Cardiology, started on IV heparin for [id number] myocardial infarction. 2. Chronic kidney disease secondary to nephrosclerosis, diabetic kidney disease and IgA nephropathy noted on kidney biopsy done in 2019. Baseline creatinine 3 to 3.3 mg/dL. 3. Hypokalemia secondary to diuretics. 4. Anemia, status post packed RBCs transfusion. 5. Acute on top of chronic diastolic congestive heart failure. 6. Volume overload. PLAN: Maintain IV heparin. Continue with the IV Lasix as well. Repeat labs in a.m. Monitor electrolytes. Avoid nephrotoxic agents. Repeat CBC in a.m. Increase Aranesp for anemia and check iron profile if not done recently. MMODL / IJN: [id number] /
--- NOTE | 2020-04-20 15:47 | US ---
EXAMINATION TYPE: US chest DATE OF EXAM: 04/20/2020 COMPARISON: Chest radiograph 04/20/2020 CLINICAL HISTORY: Right pleural effusion TECHNIQUE: Targeted ultrasound of the posterior lower right hemithorax EXAM MEASUREMENTS: Right Pleural Effusion pocket size: 13.1 cm Right skin surface to fluid distance: 3.4 cm Right side marked for possible thoracentesis outside the dept. Pulmonologists are able to review the images in the patient?s EMR. IMPRESSIONS: Right pleural effusion with site marking of the right posterior chest for potential thor acentesis procedure.
[2020-04-20 16:44] LABS: Glucose,Whole Blood 149 mg/dL (75-99)
[2020-04-20] MEDS: methylPREDNISolone SOD SUCCI 125 MG/2 ML VIAL IV SCH ×2 (16:50→16:52)
[2020-04-20] MEDS: IPRATROPIUM-ALBUTEROL 3 ML NEB INHALATION SCH (19:07)
[2020-04-20 20:08] LABS: Glucose,Whole Blood 329 mg/dL (75-99)
[2020-04-20] MEDS: ATORVASTATIN 20 MG TAB PO SCH (22:31)
[2020-04-20] MEDS: MELATONIN 5 MG TABLET PO SCH (22:32)
[2020-04-20] MEDS: INSULIN DETEMIR (LEVEMIR) 100 UNIT/ML SYR SQ SCH (22:33)
[2020-04-20] MEDS: HEPARIN SOD,PORK IN 0.45% NACL 25,000 UNIT in 0.45% NACL 1 250ML.BAG IV SCH (22:43)
[2020-04-20] MEDS: ALPRAZolam 0.25 MG TAB PO PRN (22:46)
[2020-04-21] MEDS: methylPREDNISolone SOD SUCCI 125 MG/2 ML VIAL IV SCH ×3 (00:41→12:39)
[2020-04-21] MEDS ORDERED: TEMAZEPAM 15 MG CAP PO PRN (00:49)
[2020-04-21 03:14] LABS: Basophils % (A) 0 %; Eosinophils % (A) 0 %; HCT 27.1 % (39.0-53.0); HGB 7.9 gm/dL (13.0-17.5); Hypochromasia Marked; Lymphocytes # (A) 0.3 k/uL (1.0-4.8); Lymphocytes % (A) 3 %; MCH 29.5 pg (25.0-35.0); MCHC 29.2 g/dL (31.0-37.0); Macrocytosis Slight; Mean Platelet Volume 8.8; Monocytes # (A) 0.1 k/uL (0-1.0); Monocytes % (A) 1 %; Neutrophils # (A) 9.8 k/uL (1.3-7.7); Neutrophils % (A) 95 %; Platelet Count 411 k/uL (150-450); Poikilocytosis Slight; RBC 2.68 m/uL (4.30-5.90); RDW 15.5 % (11.5-15.5); WBC 10.3 k/uL (3.8-10.6)
[2020-04-21 06:05] LABS: Glucose,Whole Blood 478 mg/dL (75-99)
[2020-04-21] MEDS: INSULIN ASPART (NovoLOG) 100 UNIT/ML VIAL SQ SCH ×2 (06:35→12:39)
[2020-04-21] MEDS: PANTOPRAZOLE 40 MG TABLET PO SCH (06:35)
[2020-04-21 07:48] LABS: Calcium 8.5 mg/dL (8.4-10.2); Potassium 4.6 mmol/L (3.5-5.1)
[2020-04-21] MEDS: IPRATROPIUM-ALBUTEROL 3 ML NEB INHALATION SCH ×2 (08:09→11:49)
[2020-04-21] MEDS ORDERED: DARBEPOETIN ALFA 60 MCG/0.3 ML SYRINGE SQ SCH (09:00)
[2020-04-21] MEDS ORDERED: DARBEPOETIN ALFA 40 MCG/0.4 ML SYRINGE SQ SCH (09:00)
[2020-04-21] MEDS ORDERED: FUROSEMIDE 40 MG TAB PO SCH (09:00)
[2020-04-21] MEDS ORDERED: ASPIRIN 81 MG PO SCH (09:00)
[2020-04-21 09:44] LABS: Glucose,Whole Blood 461 mg/dL (75-99)
[2020-04-21] MEDS: CYANOCOBALAMIN 500 MCG TAB PO SCH (09:48)
[2020-04-21] MEDS: hydrALAZINE HCL 25 MG TAB PO SCH (09:48)
[2020-04-21] MEDS: FERROUS SULFATE 325 MG TAB PO SCH (09:48)
[2020-04-21] MEDS: ASCORBIC ACID 500 MG TAB PO SCH (09:48)
[2020-04-21] MEDS: GABAPENTIN 300 MG CAP PO SCH (09:48)
[2020-04-21] MEDS: amLODIPine 5 MG TAB PO SCH (09:48)
[2020-04-21] MEDS: ISOSORBIDE MONONITRATE ER 60 MG TAB.ER.24H PO SCH (09:48)
[2020-04-21] MEDS: SODIUM BICARBONATE TAB 650 MG TAB PO SCH (09:49)
[2020-04-21] MEDS: AMOXIC-POT CLAV 875-125MG 1 EACH TAB PO SCH (09:49)
[2020-04-21] MEDS: METOPROLOL TARTRATE 25 MG TAB PO SCH (09:49)
[2020-04-21 10:25] VITALS: BP 144/58; RESP 19; TEMP 98
[2020-04-21] MEDS ORDERED: INSULIN ASPART (NovoLOG) 100 UNIT/ML VIAL SQ ONE (10:54)
--- NOTE | 2020-04-21 11:16 | PN ---
PROGRESS NOTE Patient is seen for followup for chronic kidney disease and acute kidney injury. Patient states the chest pain has improved. His troponins were elevated to around 6 and patient is maintained on IV heparin which was discontinued yesterday. Overall, he states he is feeling better. Lasix is 40 mg p.o. b.i.d. PHYSICAL EXAMINATION: Today blood pressure is 144/58, heart rate 71 per minute, he is afebrile. Examination of the heart S1, S2. Examination of the lungs, bilateral breath sounds are heard. Abdomen is soft, nontender. Examination of the lower extremities shows trace edema. R[employer] CLEANER exam grossly intact. LABS: Show sodium of 136, potassium 4.6, chloride 105, BUN 46, creatinine 3.64, hemoglobin 7.9 g/dL. ASSESSMENT: 1. Chronic kidney disease stage 4 secondary to diabetic kidney disease. Some element of IgA nephropathy with significant sclerosis on kidney biopsy. Baseline creatinine about 3.3 mg/dL. 2. Acute non ST elevation [place] being followed by Cardiology, status post IV heparin. 3. Anemia, status post packed RBCs with evidence of iron deficiency maintained on IV iron. 4. Acute on top of chronic diastolic congestive heart failure. 5. Volume overload, now improved. PLAN: Continue with current dose of Lasix which is p.o. Continue with Aranesp and repeat labs in a.m. If the patient needs cardiac catheterization, his renal function will definitely worsen with likely heard for dialysis dependent renal failure. MMODL / IJN: [id number] /
[2020-04-21 11:46] LABS: Glucose,Whole Blood 447 mg/dL (75-99)
[2020-04-21 12:01] VITALS: PULSE 75
--- NOTE | 2020-04-21 12:27 | P.PN ---
Subjective Progress Note Date: 04/21/20 Principal diagnosis: Acute hypoxic respiratory failure secondary to an acute exacerbation of diastolic congestive heart failure and possible underlying right lower lobe pneumonia. 70-year-old white male patient of Gin Webber PA-C from the [facility], chronic and ongoing smoker, carries 55 years of smoking history, currently down to 1 pack a day, was up to 2-3 packs a day in the past, chronic anemia, under the care of Dr. Singletary, coronary artery disease, diabetes mellitus, GERD/reflux, hypertension, hyperlipidemia, chronic kidney disease stage IV, depression, PTSD, who recently had a right IJ MediPort inserted by Dr. Toth on 03/25/2020 related to a need for multiple iron transfusions for history of chronic anemia. Last 04/12/2020 patient had left-sided chest pain with radiation to his left arm, shoulder, and jaw, that lasted over 20 minutes, patient took 2 nitroglycerin sublingually, and eventually the chest pain resolved, but ever since then patient was having increased shortness of breath, and his noticed increased peripheral edema, with increased swelling in his lower extremities, and abdominal distention. On 04/18/2020 patient had an appointment with Dr. Singletary, and he was significantly short of breath, with increased peripheral swelling, and he was directed to go to the emergency department for evaluation. Patient had also been having on-and-off chest pain, radiating to his jaw, and orthopnea. Initial chest x-ray in the emergency department showed a possible right lower lobe atelectasis or pneumonia and associated effusion and prominent interstitium suggesting fluid overload. EKG showed normal sinus rhythm with a rate of 64 with a inferior infarct of undetermined age. Lab work showed a white blood cell count of 11.2, hemoglobin was 7.8, d-dimer was 0.71, electrolytes were within normal limits, BUN was 42, creatinine was 2.9, proBNP was 8730, troponins were 6.610, 6.690, 6.210, 6.260. Echocardiogram showed low normal LV function with an EF 50-55%, inferior hypokinesis, severe mitral annular calcification, mild mitral regurgitation, there was a questionable 1 cm echodensity that could represent part of the c hordae however a vegetation could not completely be excluded. Mild TR, right- sided pressure was less than 35 mmHg. Patient was ruled in for non-ST elevated myocardial infarction, cardiology is following. However knowing 24 hours his oxygen demand has increased, he is currently up to 5 L/m, last night he experienced increased shortness of breath, required BiPAP support, he had been on IV Lasix at 40 mg every 12 hours, is been diuresing, and his lower extremity edema has been improving gradually. Repeat chest x-ray today was obtained showing persistent small right pleural effusion and right basilar airspace opacity decreased since admission on 04/18/2020. Occasional cough, reducing small amount of yellow-colored phlegm, no hemoptysis. No altered mentation, no leukocytosis on today's labs. Procalcitonin level came back an intermediate range of 0.14, no fever or chills. The patient is seen today 04/21/2020 in follow-up on the selective care unit. He is currently sitting up in a chair at the bedside. Awake and alert in no acute distress. Breathing quite a bit easier today as compared to yesterday. Maintaining O2 saturations in the 90s on room air. He is afebrile. Hemodyna mically stable. White count 10.3. Hemoglobin 7.9. Sodium 136. Potassium 4.6. Creatinine 3.64. He remains on oral diuretics, sodium bicarb tablets. He is continued on bronchodilators, IV Solu-Medrol. Antibiotics in the form of Augmentin. Remains on heparin drip. Objective - Vital Signs Vital signs: Vital Signs Temp 98 F 04/21/20 08:40 Pulse 75 04/21/20 12:01 Resp 19 04/21/20 08:40 BP 144/58 04/21/20 08:40 Pulse Ox 94 L 04/21/20 08:40 Intake & Output 04/20/20 04/21/20 04/21/20 18:59 06:59 18:59 Intake Total 470 180 Output Total 700 750 800 Balance -230 -750 -620 Weight 94.2 kg Intake: Oral 470 180 Output: Urine 700 750 800 Other: Voiding Method Toilet Urinal # Voids 1 0 # Bowel Movements 0 - Exam GENERAL EXAM: Alert, very pleasant, 70-year-old male gentleman, resting in bed, on on room air with the pulse ox of 94%, did not require BiPAP support last night, comfortable in no apparent distress. HEAD: Normocephalic/atraumatic. EYES: Normal reaction of pupils, equal size. Conjunctiva pink, sclera white. NOSE: Clear with pink turbinates. THROAT: No erythema or exudates. NECK: No masses, no JVD, no thyroid enlargement, no adenopathy. CHEST: No chest wall deformity. Symmetrical expansion. LUNGS: Equal air entry with bilateral scattered rhonchi, diminished in the right lung base CVS: Regular rate and rhythm, normal S1 and S2, no gallops, no murmurs, no rubs ABDOMEN: Soft, nontender. No hepatosplenomegaly, normal bowel sounds, no guarding or rigidity. EXTREMITIES: No clubbing, 1+ lower extremity edema, no cyanosis, 2+ pulses and upper and lower extremities. MUSCULOSKELETAL: Muscle strength and tone normal. SPINE: No scoliosis or deformity SKIN: No rashes CENTRAL NERVOUS SYSTEM: No focal deficits, tone is normal in all 4 extremities. PSYCHIATRIC: Alert and oriented -3. Appropriate affect. Intact judgment and insight. - Labs CBC & Chem 7: 04/21/20 02:56 04/21/20 02:56 Labs: Abnormal Lab Results - Last 24 Hours (Table) 04/20/20 04/20/20 04/20/20 Range/Units 12:28 16:43 20:07 RBC (4.30-5.90) m/uL Hgb (13.0-17.5) gm/dL Hct (39.0-53.0) % MCV (80.0-100.0) fL MCHC (31.0-37.0) g/dL Neutrophils # (1.3-7.7) k/uL Lymphocytes # (1.0-4.8) k/uL APTT (22.0-30.0) sec Sodium (137-145) mmol/L BUN (9-20) mg/dL Creatinine (0.66-1.25) mg/dL Glucose (74-99) mg/dL POC Glucose (mg/dL) 286 H 149 H 329 H (75-99) mg/dL 04/21/20 04/21/20 04/21/20 Range/Units 02:56 02:56 02:56 RBC 2.68 L (4.30-5.90) m/uL Hgb 7.9 L (13.0-17.5) gm/dL Hct 27.1 L (39.0-53.0) % MCV 101.0 H (80.0-100.0) fL MCHC 29.2 L (31.0-37.0) g/dL Neutrophils # 9.8 H (1.3-7.7) k/uL Lymphocytes # 0.3 L (1.0-4.8) k/uL APTT 49.4 H (22.0-30.0) sec Sodium 136 L (137-145) mmol/L BUN 46 H (9-20) mg/dL Creatinine 3.64 H (0.66-1.25) mg/dL Glucose 428 H (74-99) mg/dL POC Glucose (mg/dL) (75-99) mg/dL 04/21/20 04/21/20 04/21/20 Range/Units 06:04 09:36 11:41 RBC (4.30-5.90) m/uL Hgb (13.0-17.5) gm/dL Hct (39.0-53.0) % MCV (80.0-100.0) fL MCHC (31.0-37.0) g/dL Neutrophils # (1.3-7.7) k/uL Lymphocytes # (1.0-4.8) k/uL APTT (22.0-30.0) sec Sodium (137-145) mmol/L BUN (9-20) mg/dL Creatinine (0.66-1.25) mg/dL Glucose (74-99) mg/dL POC Glucose (mg/dL) 478 H 461 H 447 H (75-99) mg/dL Assessment and Plan Assessment: #1. Acute hypoxic respiratory failure related to acute exacerbation of CHF with diastolic dysfunction, and possibility of a right lower lobe pneumonia is not excluded, though felt to be less likely. Possibility of pulmonary embolism ruled out via negative VQ scan with low probability #2. Right-sided pleural effusion, ultrasound the chest revealed a 13.1 cm pocket #3. Non-ST elevated myocardial infarction #4. Acute exacerbation of COPD #5. Acute kidney injury on top of chronic kidney disease stage IV, related to cardiorenal syndrome, and possibility of diuretic therapy #6. Insulin-dependent diabetes mellitus #7. Long history of smoking, carries 55 years of smoking up to 2-3 packs per day, currently down to 1 pack a day #8. Symptomatic anemia, requiring multiple iron transfusions, patient is under the care of Dr. Singletary #9. Hypertension #10. Peripheral vascular disease, with previous intervention for total occlusion of the right SFA, and PTCA and stenting of the left SFA #11. Carotid artery disease with previous stenting Plan: The patient was seen and evaluated by Dr. Orta No plans for thoracentesis at this time Currently stable from the pulmonary standpoint Continue diuretics per nephrology Continued on a heparin drip per cardiology We'll continue to follow I, the cosigning physician, performed a history & physical examination of the p atient. Lungs sounds bilateral scattered rhonchi, diminished in the right base Maintaining good O2 saturations in the 90s on room air. I discussed the assessment and plan of care with my nurse practitioner, Zhanna Cruz. I attest to the above note as dictated by her.
[2020-04-21] MEDS: glipiZIDE 5 MG TAB PO SCH (12:39)
--- NOTE | 2020-04-21 14:13 | PN ---
PROGRESS NOTE Mr. Egan is doing remarkably well today. No chest pain. His breathing is improved. He is ambulating without symptoms, has no chest pain or shortness of breath. I am recommending that we will discontinue the IV, switch him to oral Lasix and also increase activity with a combination of nitrates and Ranexa. He seems to be doing well. We will pursue medical therapy for this patient with renal failure, CAD and peripheral artery disease. Vitals are stable, no JVD, S1-S2 heard normally, short systolic murmur noted. Lungs reveal diminished air entry. Abdomen and lower extremity exam unchanged. Patient can be discharged later on this afternoon and see Dr. Sims in the office in about 1-2 weeks. MMODL / IJN: [id number] /
--- NOTE | 2020-04-22 00:36 | P.DS ---
Providers Date of admission: 04/18/20 14:06 Attending physician: Thierry Salcedo MD Consults: 04/18/20 14:06 Consult Physician Urgent Consulting Provider: Vaishnavi Vazquez Consult Reason/Comments: NSTEMI, chest pain Do you want consulting provider notified?: Already Contacted 04/19/20 09:14 Consult Physician Stat Consulting Provider: Eduardo French Consult Reason/Comments: RD Do you want consulting provider notified?: Yes 04/20/20 08:54 Consult Physician Stat Consulting Provider: Ritchie Orta Consult Reason/Comments: pna Do you want consulting provider notified?: Yes Primary care physician: [facility] Hospital Course: Date of service for this note is 04/21/20 Diagnoses: None STEMI, decided to be treated medically as cardiac cath will put him at risk of hemodialysis Acute on chronic kidney disease secondary to cardiorenal syndrome. Patient with chronic kidney disease stage IV acute on chronic diastolic CHF exacerbation Possible right lower lobe pneumonia versus atelectasis, with right pleural effusion, improved significantly with Augmentin and Lasix elevated d-dimer with low probability VQ scan Acute hypoxic respiratory failure, improved Type 2 diabetes mellitus Hypertension Hyperlipidemia History of coronary artery disease PVD status post stent of the Rt SFA by Dr. Boyd GERD GI bleed History of iron deficiency anemia needing multiple iron transfusion and through the port, he follows up with Dr. Singletary Nicotine dependence hospital course: This is a pleasant 70 years old male with past medical history of diabetes mellitus, hyperlipidemia, hypertension, GI bleed, chronic kidney disease stage IV, iron deficiency anemia and he follows with Dr. Singletary and receiving multiple iron transfusion through his port and the right upper chest, chronic low back pain with bilateral sciatica, vertigo, coronary artery disease . He follows up in the [facility], with Dr. Stone, with Dr. Singletary Presents because of dyspnea of 3 days' duration associated with left-sided chest pain. troponin is elevated at 6.62. ProBNP is 8730. Chest x-ray: Possible right lower lobe atelectasis or pneumonia and associated effusion Upon admission he was started on Lasix and heparin drip for non-STEMI and fluid overload secondary to acute diastolic CHF, and acute kidney injury on chronic kidney disease stage IV. Patient has been evaluated by cardiology and nephrology services. However magnetic doctor recommended to treat him with heparin drip for 48-72 hours and aspirating, and increasing his Imdur to twice a day and higher dose of metoprolol rather than doing cardiac cath as this will put him at risk of worsening kidney function that most likely related to hemodialysis, patient responded to therapy well and he has no more chest pain or dyspnea, his repeat chest x-ray showing improvement in his right lower lobe lesion. His creatinine remained stable and eventually patient returned back to his baseline and he was cleared for discharge by both magnetic doctor, drug enforcement administration agent and pulmona ry services. Problems and management plan were discussed with the patient and he verbalized understanding and acceptance Patient was found stable and can be discharged home however he needs follow-up as an outpatient. Patient was instructed to follow up with PCP within one week and patient agrees. Upon patient agrees with the appointments made for him with nephrology, cardiology and pulmonary services Prescription is provided for the patient prior to discharge, however his discharge was held because his sugar was more than 400 since morning of 04/21, patient is provided with extra doses of insulin, he needed 22 extra doses of short-acting insulin and 10 more units of Levemir, however sugar remains has to do to the Solu-Medrol provided by senior manager mmcoe and patient 1800 as he was drinking alcohol call That day. I received a call from the bed side nurse Gabriele that patient was dressed up and almost going to walk away, I informed the nurse mae that patient should not be discharged with sugar more than 400 and ask her to recheck his sugar and provide extra doses of insulin with close follow-up, however patient refuses to wait then we cannot hold him but he can leave AGAINST MEDICAL ADVICE which is something not recommended and ask her to explain this to him including but not limited to the risk of DKA, organ dysfunction, and/or tenderness. 15 minutes later when I called RN Gabriele she told me patient refused to stay and he just walked away and he refused to sign AMA papers despite her request him to do sign it. And that she explained the risks of leaving AGAINST MEDICAL ADVICE to him. However she asked him to discomfort prescription for tapered prednisone as his sugar is high prior to him leaving Later on I called the patient on [phone] I talked to him he told me he laug hed because he felt the nurse was rude to him, however I talked to him extensively about the recommendation to check his sugar 4 times daily before each team and at bedtime and is going to be more than 400 was less than 17 then to call 911 and the [facility] emergency room and patient verbalized understanding and acceptance. Also he told me he has a glucometer at home. I asked him to discard the prednisone prescription as this might cause worsening of his hyperglycemia and he agrees. Also I told him extensively about the importance of smoking cessation and losing weight and taking his other pr escription and follow-up with the doctors in his appointments and to call 911 on come to emergency room if he develops any chest pain or worsening dyspnea or other concerning symptoms and he verbalized understanding and acceptance and he was thankful all this information. Physical exam Gen: patient is a AAOx3, no distress. Obese CVS: S1-S2, RRR, no murmur Lungs: B/L CTA, no wheezing, right lower basal crepitation Abdomen: soft, no distention, no tenderness, positive bowel sounds Extremity: Some bilateral leg edema . With no induration Time spent more than 35 minutes Patient Condition at Discharge: Fair Plan - Discharge Summary Discharge Rx Participant: No New Discharge Prescriptions: New Amoxic-Pot Clav 875-125Mg [Augmentin 875-125] 1 each PO Q12HR 7 Days #14 tab Metoprolol Tartrate [Lopressor] 25 mg PO TID #90 tab Albuterol Inhaler [Ventolin Hfa Inhaler] 1 puff INHALATION Q6HR PRN #1 inh PRN Reason: Shortness Of Breath Or Wheezing Isosorbide Mononitrate ER [Imdur] 60 mg PO BID #60 tab.er.24h Furosemide [Lasix] 40 mg PO BID@0900,1600 #60 tab Nitroglycerin Sl Tabs [Nitrostat] 0.4 mg SUBLINGUAL Q5M PRN #20 tab PRN Reason: Chest Pain predniSONE 10 mg PO DIRECTED #18 tab Ranolazine [Ranexa] 500 mg PO Q12HR #60 tab.er.12h Continue Metoprolol Tartrate [Lopressor] 25 mg PO BID Simvastatin [Zocor] 40 mg PO HS Ergocalciferol (Vitamin D2) [Vitamin D2] 50,000 unit PO Q14D Aspirin EC [Ecotrin Low Dose] 81 mg PO HS Ferrous Sulfate [Iron (65 MG Elemental)] 325 mg PO TID hydrALAZINE HCL 25 mg PO TID Cyanocobalamin [Vitamin B-12] 500 mcg PO DAILY Insulin Glargine [Lantus] 30 unit SQ HS rOPINIRole HCL [Requip] 0.25 mg PO BID Gabapentin [Neurontin] 300 mg PO BID Melatonin 5 mg PO HS glipiZIDE [Glucotrol] 5 mg PO W/LUNCH amLODIPine [Norvasc] 5 mg PO DAILY calcitrioL [Rocaltrol] 0.25 mcg PO SANTOS Omeprazole [PriLOSEC] 20 mg PO [facility] Sodium Bicarbonate 650 mg PO BID Clopidogrel [Plavix] 75 mg PO HS Discontinued Isosorbide Mononitrate ER [Imdur] 60 mg PO DAILY Furosemide [Lasix] 40 mg PO DAILY Discharge Medication List Ergocalciferol (Vitamin D2) [Vitamin D2] 50,000 unit PO Q14D 07/18/17 [History] Metoprolol Tartrate [Lopressor] 25 mg PO BID 07/18/17 [History] Simvastatin [Zocor] 40 mg PO HS 07/18/17 [History] Aspirin EC [Ecotrin Low Dose] 81 mg PO HS 02/10/18 [History] Ferrous Sulfate [Iron (65 MG Elemental)] 325 mg PO TID 02/10/18 [History] Cyanocobalamin [Vitamin B-12] 500 mcg PO DAILY 09/23/18 [History] Insulin Glargine [Lantus] 30 unit SQ HS 09/23/18 [History] hydrALAZINE HCL 25 mg PO TID 09/23/18 [History] Gabapentin [Neurontin] 300 mg PO BID 01/09/19 [History] rOPINIRole HCL [Requip] 0.25 mg PO BID 01/09/19 [History] Melatonin 5 mg PO HS 05/22/19 [History] glipiZIDE [Glucotrol] 5 mg PO W/LUNCH 05/22/19 [History] amLODIPine [Norvasc] 5 mg PO DAILY 06/22/19 [History] calcitrioL [Rocaltrol] 0.25 mcg PO SANTOS 09/17/19 [History] Omeprazole [PriLOSEC] 20 mg PO AC-BRKFST 09/25/19 [History] Sodium Bicarbonate 650 mg PO BID 03/22/20 [History] Clopidogrel [Plavix] 75 mg PO HS 08/31/20 [History] Albuterol Inhaler [Ventolin Hfa Inhaler] 1 puff INHALATION Q6HR PRN #1 inh 04/21/20 [Rx] Amoxic-Pot Clav 875-125Mg [Augmentin 875-125] 1 each PO Q12HR 7 Days #14 tab 04/21/20 [Rx] Furosemide [Lasix] 40 mg PO BID@0900,1600 #60 tab 04/21/20 [Rx] Isosorbide Mononitrate ER [Imdur] 60 mg PO BID #60 tab.er.24h 04/21/20 [Rx] Metoprolol Tartrate [Lopressor] 25 mg PO TID #90 tab 04/21/20 [Rx] Nitroglycerin Sl Tabs [Nitrostat] 0.4 mg SUBLINGUAL Q5M PRN #20 tab 04/21/20 [Rx] Ranolazine [Ranexa] 500 mg PO Q12HR #60 tab.er.12h 04/21/20 [Rx] predniSONE 10 mg PO DIRECTED #18 tab 04/21/20 [Rx] Follow up Appointment(s)/Referral(s): Ritchie Orta MD [STAFF PHYSICIAN] - 05/17/20 9:30 am Yulissa Ivory MD [STAFF PHYSICIAN] - 04/28/20 10:00 am Garth Sims MD [STAFF PHYSICIAN] - 05/03/20 3:30 pm [facility] [Primary Care Provider] - 05/04/20 9:00 am Patient Instructions/Handouts: Heart Attack (DC), Heart Failure (DC), Heart Healthy Diet (DC) Activity/Diet/Wound Care/Special Instructions: fax new prescriptions to the [facility] [phone] heart healthy diet activity is limited till you see your doctor Discharge Disposition: Left Against Medical Advice
[2020-04-22] MEDS ORDERED: INSULIN DETEMIR (LEVEMIR) 100 UNIT/ML SYR SQ ONE (14:00)
[2020-04-24] MEDS ORDERED: SODIUM FERRIC GLUCONAT-SUCROSE 125 MG in SODIUM CHLORIDE 0.9% 100 ML IVPB SCH (09:00)
== END 2020-04-21 16:38 | disposition left against medical advice (07) | DRG 280 ==
LOC: EC 11:43 → 3SCARD 14:06
PROVIDERS: ADMIT Internal Medicine; ATTEND Internal Medicine
PROC: 30233N1 Transfusion of Nonautologous Red Blood Cells into Peripheral Vein, Percutaneous Approach (ICD-10-PCS; principal; 2020-04-18)
PROC: 5A09457 Assistance with Respiratory Ventilation, 24-96 Consecutive Hours, Continuous Positive Airway Pressure (ICD-10-PCS; 2020-04-18)
DX: I21.4 Non-ST elevation (NSTEMI) myocardial infarction (principal); I50.33 Acute on chronic diastolic (congestive) heart failure; J96.01 Acute respiratory failure with hypoxia; J18.9 Pneumonia, unspecified organism; I13.0 Hypertensive heart and chronic kidney disease with heart failure and stage 1 through stage 4 chronic kidney disease, or unspecified chronic kidney disease; N18.4 Chronic kidney disease, stage 4 (severe); N17.9 Acute kidney failure, unspecified; J44.1 Chronic obstructive pulmonary disease with (acute) exacerbation; N02.8 Recurrent and persistent hematuria with other morphologic changes; J44.0 Chronic obstructive pulmonary disease with (acute) lower respiratory infection; J98.11 Atelectasis; M54.32 Sciatica, left side; M54.31 Sciatica, right side; E87.6 Hypokalemia; E11.51 Type 2 diabetes mellitus with diabetic peripheral angiopathy without gangrene; I73.9 Peripheral vascular disease, unspecified; F17.210 Nicotine dependence, cigarettes, uncomplicated; T50.2X5A Adverse effect of carbonic-anhydrase inhibitors, benzothiadiazides and other diuretics, initial encounter; E83.89 Other disorders of mineral metabolism; E66.9 Obesity, unspecified; I25.10 Atherosclerotic heart disease of native coronary artery without angina pectoris; K21.9 Gastro-esophageal reflux disease without esophagitis; E78.5 Hyperlipidemia, unspecified; E11.22 Type 2 diabetes mellitus with diabetic chronic kidney disease; F32.9 Major depressive disorder, single episode, unspecified; F43.10 Post-traumatic stress disorder, unspecified; N26.9 Renal sclerosis, unspecified; D50.9 Iron deficiency anemia, unspecified; G47.00 Insomnia, unspecified; Z79.4 Long term (current) use of insulin; Z79.899 Other long term (current) drug therapy; Z91.041 Radiographic dye allergy status; Z87.19 Personal history of other diseases of the digestive system; Z87.440 Personal history of urinary (tract) infections; Z90.49 Acquired absence of other specified parts of digestive tract; Z98.890 Other specified postprocedural states; Z95.828 Presence of other vascular implants and grafts; Z80.8 Family history of malignant neoplasm of other organs or systems; Z68.32 Body mass index [BMI] 32.0-32.9, adult
CPT/HCPCS: 36415; 71045; 71046; 76604; 78582; 80048; 80053; 80061; 82550; 82728; 83540; 83550; 83605; 83735; 83880; 84145; 84484; 85025; 85379; 85610; 85730; 86850; 86900; 86901; 86920; 93005; 93306; 94640; 96374; 99291

== ENCOUNTER 2020-04-23 22:49 | Inpatient (IN) | payer OTHER, MEDICARE ==
[2020-04-23 23:05] LABS: Glucose,Whole Blood 529 mg/dL (75-99)
[2020-04-23] MEDS ORDERED: MORPHINE SULFATE 4 MG/ML SYRINGE IVP STA (23:07)
[2020-04-23] MEDS ORDERED: NITROGLYCERIN OINT 1 INCH/GM PACKET TOPICAL STA (23:07)
[2020-04-23] MEDS ORDERED: NITROGLYCERIN SL TABS 0.4 MG TAB SUBLINGUAL STA (23:07)
--- NOTE | 2020-04-23 23:07 | ED ---
SOB HPI - General Stated Complaint: KASSANDRA, Chest Pain Time Seen by Provider: 04/23/20 22:52 Limitations: physical limitation (Dyspnea) - History of Present Illness Initial Comments: This patient is 70-year-old man brought by ambulance to be evaluated for shortness of breath and left-sided chest pressure that is been coming on over the past evening. The patient had been in the hospital recently and discharged on the third. History is somewhat limited initially as the patient severely dyspneic and requiring BiPAP. He initially is only able to manage 1-2 words. MD Complaint: shortness of breath, chest pain -: hour(s) Severity: moderate Quality: dull Consistency: constant Improves With: oxygen Worsens With: lying flat Known History Of: diabetes, other (Kidney failure) Treatments Prior to Arrival: oxygen, NIPPV - Related Data Home Oxygen Therapy: No Home Medications Medication Instructions Recorded Confirmed Ergocalciferol (Vitamin D2) 50,000 unit PO Q14D 07/18/17 04/24/20 [Vitamin D2] Simvastatin [Zocor] 40 mg PO HS 07/18/17 04/24/20 Aspirin EC [Ecotrin Low Dose] 81 mg PO HS 02/10/18 04/24/20 Ferrous Sulfate [Iron (65 MG 325 mg PO TID 02/10/18 04/24/20 Elemental)] Cyanocobalamin [Vitamin B-12] 500 mcg PO DAILY 09/23/18 04/24/20 Insulin Glargine [Lantus] 30 unit SQ HS 09/23/18 04/24/20 hydrALAZINE HCL 25 mg PO TID 09/23/18 04/24/20 Gabapentin [Neurontin] 300 mg PO BID 01/09/19 04/24/20 rOPINIRole HCL [Requip] 0.25 mg PO BID 01/09/19 04/24/20 Melatonin 5 mg PO HS 05/22/19 04/24/20 glipiZIDE [Glucotrol] 5 mg PO W/LUNCH 05/22/19 04/24/20 amLODIPine [Norvasc] 5 mg PO DAILY 06/22/19 04/24/20 calcitrioL [Rocaltrol] 0.25 mcg PO SANTOS 09/17/19 04/24/20 Omeprazole [PriLOSEC] 20 mg PO AC-BRKFST 09/25/19 04/24/20 Sodium Bicarbonate 650 mg PO BID 03/22/20 04/24/20 Clopidogrel [Plavix] 75 mg PO HS 04/18/20 04/24/20 Previous Rx's Medication Instructions Recorded Albuterol Inhaler [Ventolin Hfa 1 puff INHALATION Q6HR PRN #1 inh 04/21/20 Inhaler] Amoxic-Pot Clav 875-125Mg 1 each PO Q12HR 7 Days #14 tab 04/21/20 [Augmentin 875-125] Furosemide [Lasix] 40 mg PO BID@0900,1600 #60 tab 04/21/20 Isosorbide Mononitrate ER [Imdur] 60 mg PO BID #60 tab.er.24h 04/21/20 Metoprolol Tartrate [Lopressor] 25 mg PO TID #90 tab 04/21/20 Nitroglycerin Sl Tabs [Nitrostat] 0.4 mg SUBLINGUAL Q5M PRN #20 tab 04/21/20 Ranolazine [Ranexa] 500 mg PO Q12HR #60 tab.er.12h 04/21/20 Allergies Allergy/AdvReac Type Severity Reaction Status Date / Time Iodinated Contrast Media Allergy CAN'T Verified 04/24/20 09:13 TAKE, RENAL DISEASE Iodine and Iodide Containing Allergy CAN'T Verified 04/24/20 09:13 Produc TAKE, RENAL DISEASE Review of Systems ROS Statement: Those systems with pertinent positive or pertinent negative responses have been documented in the HPI. ROS Other: All systems not noted in ROS Statement are negative. Limitations: ROS unobtainable due to patients medical condition Constitutional: Denies: fever, chills Respiratory: Reports: as per HPI, dyspnea. Denies: cough, wheezes Cardiovascular: Reports: as per HPI, chest pain Gastrointestinal: Denies: abdominal pain, nausea, vomiting, diarrhea Genitourinary: Denies: dysuria, frequency, hematuria Musculoskeletal: Denies: back pain Skin: Denies: rash Neurological: Denies: headache, weakness, numbness Past Medical History Past Medical History: Coronary Artery Disease (CAD), Chest Pain / Angina, Diabetes Mellitus, GERD/Reflux, GI Bleed, Hyperlipidemia, Hypertension, Pneumonia, Renal Disease, Vascular Disorder Additional Past Medical History / Comment(s): IDDM type II, lower GI bleed, benign colon polyps, spouse states micro bleeds in intestine are suspected, abdominal distention comes and goes which is nearly daily, partial SBO, chronic renal disease stage IV, iron anemia with iron transfusions (recent R upper chest mediport for infusions), PVD, stable lung nodules, chronic low back pain with bilateral sciatica, RLS, vertigo, insomnia, past agent orange exposure. History of Any Multi-Drug Resistant Organisms: None Reported Past Surgical History: Cholecystectomy, Heart Catheterization Additional Past Surgical History / Comment(s): 03/25/20 R sublclavian mediport, R carotid stent done in [place], EGD/colonoscopyDecember 2017, endoscopic capsule, fx lt wrist -sx re-set, aortagram, bilateral leg revascularizations/stents Past Anesthesia/Blood Transfusion Reactions: No Reported Reaction Additional Past Anesthesia/Blood Transfusion Reaction / Comment(s): Pt has had blood transfusion without reaction. Past Psychological History: Depression, PTSD Smoking Status: Current every day smoker Past Alcohol Use History: None Reported Past Drug Use History: Marijuana - Past Family History Father History Unknown: Yes Mother Family Medical History: Cancer Additional Family Medical History / Comment(s): Mother from metastatic cancer pelvic origin. General Exam General appearance: alert, in distress (Patient in moderate respiratory distress, being moderately tachypneic and able to speak 1-2 word) Head exam: Present: atraumatic, normocephalic Eye exam: Present: normal appearance. Absent: scleral icterus, conjunctival injection Neck exam: Present: normal inspection, full ROM. Absent: meningismus Respiratory exam: Present: respiratory distress, rales, accessory muscle use. Absent: wheezes, rhonchi, stridor, decreased breath sounds, prolonged expiratory Cardiovascular Exam: Present: regular rate, normal rhythm, normal heart sounds. Absent: systolic murmur, diastolic murmur, rubs, gallop GI/Abdominal exam: Present: soft. Absent: distended, tenderness, guarding, rebound, rigid, mass Extremities exam: Present: normal inspection, normal capillary refill. Absent: pedal edema, calf tenderness Back exam: Present: normal inspection. Absent: CVA tenderness (R), CVA tenderness (L) Neurological exam: Present: alert Skin exam: Present: warm, dry, intact, normal color. Absent: rash Course Vital Signs 04/23/20 04/23/20 04/24/20 22:50 23:05 00:00 Temperature 97.5 F L 97.8 F Pulse Rate 81 78 72 Pulse Rate [ Management Coordinator ] Respiratory 35 H 22 22 Rate Blood Pressure 163/93 164/70 154/68 Blood Pressure [Left Arm Supine] O2 Sat by Pulse 94 L 97 94 L Oximetry 04/24/20 04/24/20 04/24/20 01:00 01:42 02:00 Temperature 97.6 F 98.7 F Pulse Rate 66 63 Pulse Rate [ 67 Management Coordinator ] Respiratory 20 20 Rate Blood Pressure 174/77 143/72 Blood Pressure 141/63 [Left Arm Supine] O2 Sat by Pulse 95 97 96 Oximetry 04/24/20 03:09 Temperature 98.8 F Pulse Rate 73 Pulse Rate [ Management Coordinator ] Respiratory 20 Rate Blood Pressure 146/62 Blood Pressure [Left Arm Supine] O2 Sat by Pulse 96 Oximetry Medical Decision Making - Medical Decision Making Patient is 70-year-old man presenting in acute respiratory distress. Clinically patient appears to have CHF with possible superimposed pneumonia. The patient initially requiring BiPAP has had marked improvement and did wish to try coming off the BiPAP onto nasal cannula which she seems to be tolerating. Patient started on healthcare associated pneumonia pathway in addition to treatment for CHF. Case is discussed with Dr. Orta and patient will go to ICU overnight given concerned he may require being placed back on BiPAP/intubation. Patient does have elevated troponin I, but at this point appears to still be decreasing from his previous admission. Consults also for cardiology and nephrology. - Lab Data Result diagrams: 04/27/20 07:00 04/27/20 07:00 Lab Results 04/23/20 04/23/20 04/23/20 Range/Units 23:00 23:00 23:00 WBC 16.4 H (3.8-10.6) k/uL RBC 3.16 L (4.30-5.90) m/uL Hgb 9.5 L D (13.0-17.5) gm/dL Hct 31.9 L (39.0-53.0) % MCV 101.0 H (80.0-100.0) fL MCH 30.1 (25.0-35.0) pg MCHC 29.8 L (31.0-37.0) g/dL RDW 15.1 (11.5-15.5) % Plt Count 459 H (150-450) k/uL Neutrophils % 89 % Lymphocytes % 5 % Monocytes % 4 % Eosinophils % 2 % Basophils % 0 % Neutrophils # 14.5 H (1.3-7.7) k/uL Lymphocytes # 0.8 L (1.0-4.8) k/uL Monocytes # 0.7 (0-1.0) k/uL Eosinophils # 0.3 (0-0.7) k/uL Basophils # 0.0 (0-0.2) k/uL Hypochromasia Marked Macrocytosis Slight PT 9.4 (9.0-12.0) sec INR 0.9 (<1.2) APTT 22.4 (22.0-30.0) sec Sodium 132 L (137-145) mmol/L Potassium 4.6 (3.5-5.1) mmol/L Chloride 97 L (98-107) mmol/L Carbon Dioxide 24 (22-30) mmol/L Anion Gap 11 mmol/L BUN 51 H (9-20) mg/dL Creatinine 3.83 H (0.66-1.25) mg/dL Est GFR (CKD-EPI)AfAm 17 (>60 ml/min/1.73 sqM) Est GFR (CKD-EPI)NonAf 15 (>60 ml/min/1.73 sqM) Glucose 578 H* (74-99) mg/dL POC Glucose (mg/dL) (75-99) mg/dL POC Glu Billet Cutter ID Plasma Lactic Acid Leobardo (0.7-2.0) mmol/L Calcium 8.7 (8.4-10.2) mg/dL Magnesium 1.8 (1.6-2.3) mg/dL Total Bilirubin 0.4 (0.2-1.3) mg/dL AST 17 (17-59) U/L ALT 15 (4-49) U/L Alkaline Phosphatase 94 (38-126) U/L Troponin I (0.000-0.034) ng/mL NT-Pro-B Natriuret Pep pg/mL Total Protein 6.1 L (6.3-8.2) g/dL Albumin 3.5 (3.5-5.0) g/dL Procalcitonin (0.02-0.09) ng/mL Urine Color Urine Appearance (Clear) Urine pH (5.0-8.0) Ur Specific [place] (1.001-1.035) Urine Protein (Negative) Urine Glucose (UA) (Negative) Urine Ketones (Negative) Urine Blood (Negative) Urine Nitrite (Negative) Urine Bilirubin (Negative) Urine Urobilinogen (<2.0) mg/dL Ur Leukocyte Esterase (Negative) Urine RBC (0-5) /hpf Urine WBC (0-5) /hpf Ur Squamous Epith Cells (0-4) /hpf Hyaline Casts (0-2) /lpf 04/23/20 04/23/20 04/23/20 Range/Units 23:00 23:00 23:00 WBC (3.8-10.6) k/uL RBC (4.30-5.90) m/uL Hgb (13.0-17.5) gm/dL Hct (39.0-53.0) % MCV (80.0-100.0) fL MCH (25.0-35.0) pg MCHC (31.0-37.0) g/dL RDW (11.5-15.5) % Plt Count (150-450) k/uL Neutrophils % % Lymphocytes % % Monocytes % % Eosinophils % % Basophils % % Neutrophils # (1.3-7.7) k/uL Lymphocytes # (1.0-4.8) k/uL Monocytes # (0-1.0) k/uL Eosinophils # (0-0.7) k/uL Basophils # (0-0.2) k/uL Hypochromasia Macrocytosis PT (9.0-12.0) sec INR (<1.2) APTT (22.0-30.0) sec Sodium (137-145) mmol/L Potassium (3.5-5.1) mmol/L Chloride (98-107) mmol/L Carbon Dioxide (22-30) mmol/L Anion Gap mmol/L BUN (9-20) mg/dL Creatinine (0.66-1.25) mg/dL Est GFR (CKD-EPI)AfAm (>60 ml/min/1.73 sqM) Est GFR (CKD-EPI)NonAf (>60 ml/min/1.73 sqM) Glucose (74-99) mg/dL POC Glucose (mg/dL) (75-99) mg/dL POC Glu Billet Cutter ID Plasma Lactic Acid Leobardo 1.0 (0.7-2.0) mmol/L Calcium (8.4-10.2) mg/dL Magnesium (1.6-2.3) mg/dL Total Bilirubin (0.2-1.3) mg/dL AST (17-59) U/L ALT (4-49) U/L Alkaline Phosphatase (38-126) U/L Troponin I 1.370 H* (0.000-0.034) ng/mL NT-Pro-B Natriuret Pep 7710 pg/mL Total Protein (6.3-8.2) g/dL Albumin (3.5-5.0) g/dL Procalcitonin (0.02-0.09) ng/mL Urine Color Urine Appearance (Clear) Urine pH (5.0-8.0) Ur Specific [place] (1.001-1.035) Urine Protein (Negative) Urine Glucose (UA) (Negative) Urine Ketones (Negative) Urine Blood (Negative) Urine Nitrite (Negative) Urine Bilirubin (Negative) Urine Urobilinogen (<2.0) mg/dL Ur Leukocyte Esterase (Negative) Urine RBC (0-5) /hpf Urine WBC (0-5) /hpf Ur Squamous Epith Cells (0-4) /hpf Hyaline Casts (0-2) /lpf 04/23/20 04/23/20 04/24/20 Range/Units 23:00 23:02 00:27 WBC (3.8-10.6) k/uL RBC (4.30-5.90) m/uL Hgb (13.0-17.5) gm/dL Hct (39.0-53.0) % MCV (80.0-100.0) fL MCH (25.0-35.0) pg MCHC (31.0-37.0) g/dL RDW (11.5-15.5) % Plt Count (150-450) k/uL Neutrophils % % Lymphocytes % % Monocytes % % Eosinophils % % Basophils % % Neutrophils # (1.3-7.7) k/uL Lymphocytes # (1.0-4.8) k/uL Monocytes # (0-1.0) k/uL Eosinophils # (0-0.7) k/uL Basophils # (0-0.2) k/uL Hypochromasia Macrocytosis PT (9.0-12.0) sec INR (<1.2) APTT (22.0-30.0) sec Sodium (137-145) mmol/L Potassium (3.5-5.1) mmol/L Chloride (98-107) mmol/L Carbon Dioxide (22-30) mmol/L Anion Gap mmol/L BUN (9-20) mg/dL Creatinine (0.66-1.25) mg/dL Est GFR (CKD-EPI)AfAm (>60 ml/min/1.73 sqM) Est GFR (CKD-EPI)NonAf (>60 ml/min/1.73 sqM) Glucose (74-99) mg/dL POC Glucose (mg/dL) 529 H 539 H (75-99) mg/dL POC Glu Billet Cutter ID [place] Plasma Lactic Acid Leobardo (0.7-2.0) mmol/L Calcium (8.4-10.2) mg/dL Magnesium (1.6-2.3) mg/dL Total Bilirubin (0.2-1.3) mg/dL AST (17-59) U/L ALT (4-49) U/L Alkaline Phosphatase (38-126) U/L Troponin I (0.000-0.034) ng/mL NT-Pro-B Natriuret Pep pg/mL Total Protein (6.3-8.2) g/dL Albumin (3.5-5.0) g/dL Procalcitonin 0.20 H (0.02-0.09) ng/mL Urine Color Urine Appearance (Clear) Urine pH (5.0-8.0) Ur Specific [place] (1.001-1.035) Urine Protein (Negative) Urine Glucose (UA) (Negative) Urine Ketones (Negative) Urine Blood (Negative) Urine Nitrite (Negative) Urine Bilirubin (Negative) Urine Urobilinogen (<2.0) mg/dL Ur Leukocyte Esterase (Negative) Urine RBC (0-5) /hpf Urine WBC (0-5) /hpf Ur Squamous Epith Cells (0-4) /hpf Hyaline Casts (0-2) /lpf 04/24/20 04/24/20 Range/Units 01:35 01:37 WBC (3.8-10.6) k/uL RBC (4.30-5.90) m/uL Hgb (13.0-17.5) gm/dL Hct (39.0-53.0) % MCV (80.0-100.0) fL MCH (25.0-35.0) pg MCHC (31.0-37.0) g/dL RDW (11.5-15.5) % Plt Count (150-450) k/uL Neutrophils % % Lymphocytes % % Monocytes % % Eosinophils % % Basophils % % Neutrophils # (1.3-7.7) k/uL Lymphocytes # (1.0-4.8) k/uL Monocytes # (0-1.0) k/uL Eosinophils # (0-0.7) k/uL Basophils # (0-0.2) k/uL Hypochromasia Macrocytosis PT (9.0-12.0) sec INR (<1.2) APTT (22.0-30.0) sec Sodium (137-145) mmol/L Potassium (3.5-5.1) mmol/L Chloride (98-107) mmol/L Carbon Dioxide (22-30) mmol/L Anion Gap mmol/L BUN (9-20) mg/dL Creatinine (0.66-1.25) mg/dL Est GFR (CKD-EPI)AfAm (>60 ml/min/1.73 sqM) Est GFR (CKD-EPI)NonAf (>60 ml/min/1.73 sqM) Glucose (74-99) mg/dL POC Glucose (mg/dL) 541 H (75-99) mg/dL POC Glu Billet Cutter ID Lesly Jolley Plasma Lactic Acid Leobardo (0.7-2.0) mmol/L Calcium (8.4-10.2) mg/dL Magnesium (1.6-2.3) mg/dL Total Bilirubin (0.2-1.3) mg/dL AST (17-59) U/L ALT (4-49) U/L Alkaline Phosphatase (38-126) U/L Troponin I (0.000-0.034) ng/mL NT-Pro-B Natriuret Pep pg/mL Total Protein (6.3-8.2) g/dL Albumin (3.5-5.0) g/dL Procalcitonin (0.02-0.09) ng/mL Urine Color Light Yellow Urine Appearance Clear (Clear) Urine pH 6.0 (5.0-8.0) Ur Specific [place] 1.013 (1.001-1.035) Urine Protein 3+ H (Negative) Urine Glucose (UA) 4+ H (Negative) Urine Ketones Negative (Negative) Urine Blood Trace H (Negative) Urine Nitrite Negative (Negative) Urine Bilirubin Negative (Negative) Urine Urobilinogen <2.0 (<2.0) mg/dL Ur Leukocyte Esterase Negative (Negative) Urine RBC 2 (0-5) /hpf Urine WBC <1 (0-5) /hpf Ur Squamous Epith Cells <1 (0-4) /hpf Hyaline Casts 1 (0-2) /lpf - EKG Data -: EKG Interpreted by [facility] EKG shows normal: sinus rhythm, axis (Normal), intervals (Normal), ST-T waves (Normal) Rate: normal (Rate 72 bpm) Interpretation: other (Possible old inferior infarct.) Critical Care Time Critical Care Time: Yes (35 minutes) Disposition Clinical Impression: CHF (congestive heart failure), MICHELLE (acute kidney injury), Anemia, Pneumonia Disposition: ADMITTED IP TO THIS [facility] Condition: Serious
[2020-04-23 23:21] LABS: Basophils % (A) 0 %; Eosinophils # (A) 0.3 k/uL (0-0.7); Eosinophils % (A) 2 %; HCT 31.9 % (39.0-53.0); Hypochromasia Marked; Lymphocytes # (A) 0.8 k/uL (1.0-4.8); Lymphocytes % (A) 5 %; MCH 30.1 pg (25.0-35.0); MCHC 29.8 g/dL (31.0-37.0); Macrocytosis Slight; Mean Platelet Volume 8.2; Monocytes # (A) 0.7 k/uL (0-1.0); Monocytes % (A) 4 %; Neutrophils # (A) 14.5 k/uL (1.3-7.7); Neutrophils % (A) 89 %; Platelet Count 459 k/uL (150-450); RBC 3.16 m/uL (4.30-5.90); RDW 15.1 % (11.5-15.5); WBC 16.4 k/uL (3.8-10.6)
[2020-04-23 23:23] LABS: HGB 9.5 gm/dL (13.0-17.5)
[2020-04-23 23:24] LABS: Albumin 3.5 g/dL (3.5-5.0); Calcium 8.7 mg/dL (8.4-10.2); Magnesium 1.8 mg/dL (1.6-2.3); Potassium 4.6 mmol/L (3.5-5.1); Total Bilirubin 0.4 mg/dL (0.2-1.3); Total Protein 6.1 g/dL (6.3-8.2)
[2020-04-23 23:34] LABS: INR 0.9 (<1.2); Partial Thromboplastin Time 22.4 sec (22.0-30.0); Prothrombin Time 9.4 sec (9.0-12.0)
--- NOTE | 2020-04-23 23:41 | XR ---
EXAMINATION TYPE: XR chest 1V portable DATE OF EXAM: 04/23/2020 COMPARISON: April 20, 2020 HISTORY: Short of breath TECHNIQUE: FINDINGS: Heart is enlarged. There is pulmonary interstitial edema. There is blunting of the costophr enic angles more on the right side. There is bilateral lower lobe pulmonary infiltrates. There is right central venous catheter with tip in the superior vena cava. IMPRESSION: Congestive heart failure with increasing pulmonary infiltrates and pleural fluid compared to recent exam.
[2020-04-24] MEDS ORDERED: INSULIN REGULAR 100 UNIT/ML VIAL SQ STA (00:03)
[2020-04-24 00:40] LABS: Glucose,Whole Blood 539 mg/dL (75-99)
[2020-04-24] MEDS ORDERED: PIPERACILLIN-TAZOBACTAM 3.375 GM in SODIUM CHLORIDE 0.9% 100 ML IVPB ONE (01:00)
[2020-04-24 01:36] LABS: Glucose,Whole Blood 541 mg/dL (75-99)
[2020-04-24] MEDS ORDERED: PNEUMONIA PROTOCOL UTILIZED 1 EACH MISC PO PRN (01:41)
[2020-04-24] MEDS ORDERED: NITROGLYCERIN SL TABS 0.4 MG TAB SUBLINGUAL PRN (01:44)
[2020-04-24 01:54] LABS: Appearance,Urine Clear (Clear); Bilirubin,Urine Negative (Negative); Blood,Urine Trace (Negative); Color,Urine Light Yellow; Glucose,Urine (UA) 4+ (Negative); Hyaline Casts,Urine 1 /lpf (0-2); Ketones,Urine Negative (Negative); Leukocyte Esterase,Urine Negative (Negative); Nitrite,Urine Negative (Negative); Protein,Urine 3+ (Negative); RBC,Urine 2 /hpf (0-5); Specific Gravity,Urine 1.013 (1.001-1.035); Squamous Epithelial Cell,Urine <1 /hpf (0-4); Urobilinogen,Urine <2.0 mg/dL (<2.0); WBC,Urine <1 /hpf (0-5)
[2020-04-24 03:28] LABS: Glucose,Whole Blood 475 mg/dL (75-99)
[2020-04-24] MEDS ORDERED: FUROSEMIDE 10 MG/ML 4 ML VIAL IV STA (04:27)
[2020-04-24] MEDS ORDERED: NALOXONE 0.4 MG/ML 1 ML VIAL IV PRN (04:58)
[2020-04-24 06:48] LABS: Glucose,Whole Blood 394 mg/dL (75-99)
[2020-04-24] MEDS: PANTOPRAZOLE 40 MG TABLET PO SCH (07:03)
[2020-04-24] MEDS: INSULIN ASPART (NovoLOG) 100 UNIT/ML VIAL SQ SCH ×4 (07:03→22:51)
[2020-04-24 07:13] LABS: Basophils % (A) 0 %; Eosinophils # (A) 0.1 k/uL (0-0.7); Eosinophils % (A) 1 %; HCT 28.7 % (39.0-53.0); Hypochromasia Marked; Lymphocytes # (A) 0.7 k/uL (1.0-4.8); Lymphocytes % (A) 6 %; MCH 31.1 pg (25.0-35.0); MCHC 31.5 g/dL (31.0-37.0); MCV 98.8 fL (80.0-100.0); Macrocytosis Slight; Mean Platelet Volume 9.4; Monocytes # (A) 0.6 k/uL (0-1.0); Monocytes % (A) 5 %; Neutrophils # (A) 9.4 k/uL (1.3-7.7); Neutrophils % (A) 86 %; Platelet Count 378 k/uL (150-450); RDW 15.3 % (11.5-15.5)
[2020-04-24 07:30] LABS: Calcium 8.5 mg/dL (8.4-10.2); Potassium 4.5 mmol/L (3.5-5.1); Total Bilirubin 0.5 mg/dL (0.2-1.3); Total Protein 5.5 g/dL (6.3-8.2)
--- NOTE | 2020-04-24 08:05 | XR ---
EXAMINATION TYPE: XR chest 1V DATE OF EXAM: 04/24/2020 CLINICAL HISTORY: CHF TECHNIQUE: Portable semiupright view of the chest COMPARISON: 04/23/2020 chest radiograph FINDINGS: Right-sided internal jugular central venous catheter distal tip over the right atrium. Car diomegaly and pulmonary vascular congestion. There is pulmonary edema which is mildly decreased versu s 04/23/2020. Small right pleural effusion. No pneumothorax. IMPRESSION: CHF with small right pleural effusion. Mildly decreased pulmonary edema versus 04/23/2020.
[2020-04-24] MEDS ORDERED: FAMOTIDINE 20 MG/2 ML VIAL IV SCH (09:00)
[2020-04-24] MEDS ORDERED: FUROSEMIDE 40 MG TAB PO SCH (09:00)
[2020-04-24] MEDS ORDERED: hydrALAZINE HCL 25 MG TAB PO SCH (09:00)
[2020-04-24] MEDS ORDERED: PIPERACILLIN-TAZOBACTAM 3.375 GM in SODIUM CHLORIDE 0.9% 100 ML IVPB SCH (10:00)
--- NOTE | 2020-04-24 10:01 | P.NPCON ---
History of Present Illness - Reason for Consult Consult date: 04/24/20 acute renal failure - Chief Complaint Shortness of breath. - History of Present Illness 70-year-old white gentleman coming to the hospital with the above complaints. He was recently in the hospital with shortness of breath. Discharge and presented back with similar complaints. He has chronic kidney disease stage IV secondary to diabetic nephropathy with underlying IgA follows with Dr. Ivory as outpatient. He was admitted to ICU was on BiPAP. Started on Lasix responding well making good urine currently on nasal cannula. Renal function slightly higher than baseline. No NSAID use or recent contrast studies. As outpatient he was discovered's about long-term hemodialysis plan and he prefers home dialysis. Review of Systems Constitutional: Reports as per HPI Past Medical History Past Medical History: Coronary Artery Disease (CAD), Chest Pain / Angina, Diabetes Mellitus, GERD/Reflux, GI Bleed, Hyperlipidemia, Hypertension, Pneumonia, Renal Disease, Vascular Disorder Additional Past Medical History / Comment(s): IDDM type II, lower GI bleed, benign colon polyps, spouse states micro bleeds in intestine are suspected, abdominal distention comes and goes which is nearly daily, partial SBO, chronic renal disease stage IV, iron anemia with iron transfusions (recent R upper chest mediport for infusions), PVD, stable lung nodules, chronic low back pain with bilateral sciatica, RLS, vertigo, insomnia, past agent orange exposure. History of Any Multi-Drug Resistant Organisms: None Reported Past Surgical History: Cholecystectomy, Heart Catheterization Additional Past Surgical History / Comment(s): 03/25/20 R sublclavian mediport, R carotid stent done in [place], EGD/colonoscopyDecember 2016, endoscopic capsule, fx lt wrist -sx re-set, aortagram, bilateral leg revascularizations/stents Past Anesthesia/Blood Transfusion Reactions: No Reported Reaction Additional Past Anesthesia/Blood Transfusion Reaction / Comment(s): Pt has had blood transfusion without reaction. Past Psychological History: Depression, PTSD Smoking Status: Current every day smoker Past Alcohol Use History: None Reported Past Drug Use History: Marijuana - Past Family History Father History Unknown: Yes Mother Family Medical History: Cancer Additional Family Medical History / Comment(s): Mother from metastatic cancer pelvic origin. Medications and Allergies Home Medications Medication Instructions Recorded Confirmed Type Ergocalciferol (Vitamin D2) 50,000 unit PO Q14D 07/18/17 04/24/20 History [Vitamin D2] Simvastatin [Zocor] 40 mg PO HS 07/18/17 04/24/20 History Aspirin EC [Ecotrin Low Dose] 81 mg PO HS 02/10/18 04/24/20 History Ferrous Sulfate [Iron (65 MG 325 mg PO TID 02/10/18 04/24/20 History Elemental)] Cyanocobalamin [Vitamin B-12] 500 mcg PO DAILY 09/23/18 04/24/20 History Insulin Glargine [Lantus] 30 unit SQ HS 09/23/18 04/24/20 History hydrALAZINE HCL 25 mg PO TID 09/23/18 04/24/20 History Gabapentin [Neurontin] 300 mg PO BID 01/09/19 04/24/20 History rOPINIRole HCL [Requip] 0.25 mg PO BID 01/09/19 04/24/20 History Melatonin 5 mg PO HS 05/22/19 04/24/20 History glipiZIDE [Glucotrol] 5 mg PO W/LUNCH 05/22/19 04/24/20 History amLODIPine [Norvasc] 5 mg PO DAILY 06/22/19 04/24/20 History calcitrioL [Rocaltrol] 0.25 mcg PO SANTOS 09/17/19 04/24/20 History Omeprazole [PriLOSEC] 20 mg PO AC-BRKFST 09/25/19 04/24/20 History Sodium Bicarbonate 650 mg PO BID 03/22/20 04/24/20 History Clopidogrel [Plavix] 75 mg PO HS 04/18/20 04/24/20 History Albuterol Inhaler [Ventolin Hfa 1 puff INHALATION Q6HR PRN #1 inh 04/21/20 04/24/20 Rx Inhaler] Amoxic-Pot Clav 875-125Mg 1 each PO Q12HR 7 Days #14 tab 04/21/20 04/24/20 Rx [Augmentin 875-125] Furosemide [Lasix] 40 mg PO BID@0900,1600 #60 tab 04/21/20 04/24/20 Rx Isosorbide Mononitrate ER [Imdur] 60 mg PO BID #60 tab.er.24h 04/21/20 04/24/20 Rx Metoprolol Tartrate [Lopressor] 25 mg PO TID #90 tab 04/21/20 04/24/20 Rx Nitroglycerin Sl Tabs [Nitrostat] 0.4 mg SUBLINGUAL Q5M PRN #20 tab 04/21/20 04/24/20 Rx Ranolazine [Ranexa] 500 mg PO Q12HR #60 tab.er.12h 04/21/20 04/24/20 Rx Allergies Allergy/AdvReac Type Severity Reaction Status Date / Time Iodinated Contrast Media Allergy CAN'T Verified 04/24/20 09:13 TAKE, RENAL DISEASE Iodine and Iodide Containing Allergy CAN'T Verified 04/24/20 09:13 Produc TAKE, RENAL DISEASE Physical Exam Vitals: Vital Signs Temp Pulse Resp BP Pulse Ox 04/24/20 09:00 62 15 160/67 94 L 04/24/20 08:00 97.4 F L 62 14 156/66 94 L 04/24/20 07:00 58 L 15 151/64 95 04/24/20 06:00 60 14 170/73 94 L 04/24/20 05:00 66 15 154/72 95 04/24/20 04:00 97.9 F 62 13 158/76 93 L 04/24/20 03:09 98.8 F 73 20 146/62 96 04/24/20 02:00 98.7 F 63 20 143/72 96 04/24/20 01:00 97.6 F 66 20 174/77 95 04/24/20 00:00 97.8 F 72 22 154/68 94 L 04/23/20 23:05 78 22 164/70 97 04/23/20 22:50 97.5 F L 81 35 H 163/93 94 L Intake and Output 04/23/20 04/24/20 04/24/20 22:59 06:59 14:59 Output Total 450 325 Balance -450 -325 Output: Urine 450 325 Uretheral (Toth) 300 Other: Voiding Method Indwelling Catheter Indwelling Catheter Weight 95.799 kg 95.799 kg No acute distress S1-S2 heard Decreased breath sound Abdomen distended soft Edema Results - Lab Results Most recent lab results Calcium 8.5 mg/dL (8.4-10.2) 04/24/20 07:00 Magnesium 1.8 mg/dL (1.6-2.3) 04/23/20 23:00 04/24/20 07:00 04/24/20 07:00 Assessment and Plan Assessment: #1 nonoliguric acute kidney injury secondary to type I cardiorenal syndrome. #2 chronic kidney disease stage IV secondary to diabetic kidney disease with a baseline creatinine of 3.0-3.3 MG per DL. #3 acute respiratory failure secondary to volume overload with pulmonary edema #4 hypertension with chronic kidney disease #5 diastolic CHF #6 volume overload #7 anemia with chronic kidney disease #8 metabolic bone disease Plan: #1 continue with Lasix 80 mg IV twice a day. Goal net negative off 2 L per day. #2 strict ins and outs. Fluid restriction of 1500 ML's per day. #3 okay for cardiac cath with minimal dye use if urgent. If not wait until renal function stabilizes. #4 discussed with the patient at length regarding the need for NURSE PRACTITIONER ADULT with cardiac cath, patient agreeable and understands the risks and benefits.
--- NOTE | 2020-04-24 10:08 | CONS ---
CONSULTATION CHIEF COMPLAINT: Shortness of breath. HISTORY OF PRESENT ILLNESS: Jack is 70-year-old gentleman with complex and multiple medical problems including carotid stenosis status post right carotid stenting, peripheral arterial disease status post bilateral revascularization with stenting, hypertension, diabetes, dyslipidemia, who was in the hospital last week and left against medical advice and came back in because he was feeling more short of breath. At last visit, the patient had a non ST- segment elevation MN. It is unclear if he was advised to undergo cardiac catheterization of not. He also has renal insufficiency with a creatinine of 3.7. Troponin on this admission is 1.2 but clearly seems to be coming down. Troponin was 6.2 at last admission. The patient does not have history of coronary artery disease. There is no prior revascularization. On his presentation, the patient was in heart failure, received IV Lasix following which his symptoms have improved. He is currently on 4 L of nasal O2 and is saturating in the 90s. He has bilateral leg edema. He has had 1 other episode of chest pain coming in this time. I believe patient needs to undergo cardiac catheterization to evaluate for coronary artery disease given the episodes of chest discomfort he is still having and the recent myocardial infarction. The patient is at risk for contrast induced nephropathy and may end up requiring dialysis, but now during cardiac catheterization might result in myocardial infarction and patient may still have renal failure and dialysis. Will involving a safety administrator on the case and whenever it is okay with them, will proceed with heart catheterization, probably on Saturday. He sees Dr. Sims in the office who will be performing his catheterization. PAST MEDICAL HISTORY: Significant for hypertension, diabetes, dyslipidemia, peripheral vascular disease, carotid stenosis, and diastolic heart failure. MEDICATIONS: Medications at home include Requip, Glucotrol, Norvasc 5 daily, Zocor 40 daily, Ranexa 500 b.i.d., Lopressor 25 t.i.d., Imdur 60 b.i.d., Lasix, Neurontin, insulin, Plavix, aspirin. ALLERGIES: IV DYE. FAMILY HISTORY: Negative for premature coronary artery disease. SOCIAL HISTORY: Significant for smoking. There is no history of EtOH abuse or drug abuse. REVIEW OF SYSTEMS: HEENT: Unremarkable. CARDIAC: As described above. RESPIRATORY: As described above. GI: Negative. : Negative. ALLERGY/IMMUNOLOGY: Negative. SKIN: Negative. MUSCULOSKELETAL: Significant for arthritis. PSYCHOSOCIAL: Negative. DERM: Negative. CONSTITUTIONAL: Negative. ONCOLOGICAL: Negative. FILLING MACHINE TENDER: Negative. Rest of the system review is not relevant. PHYSICAL EXAM: The patient is afebrile. Heart rate is 62 beats per minute. Blood pressure is 160/69, respiratory 16, O2 saturation is 94% on 4 L. There is no jugular venous distention. Chest exam reveals diminished air entry at the right base. Heart exam reveals first and second heart sounds. No gallop. No murmur. No rub. Abdomen is soft, nontender. Exam of extremities reveals bilateral moderate pitting edema. Foot pulses are palpable. The patient had an echocardiogram at last visit that showed normal LV systolic function with an ejection fraction of 55%. Moderately enlarged right ventricle with mild aortic stenosis. LABORATORY DATA: Labs on this admission revealed a hemoglobin of 9, platelet count of 378, potassium is 4.5, BUN is 54, creatinine is 3.7. BNP is elevated at 9330. ASSESSMENT: 1. Acute exacerbation of chronic diastolic heart failure. 2. Recent non ST-segment elevation myocardial infarction. 3. Chronic renal failure. PLAN: The patient will be treated with aggressive medical therapy. We need to have more optimal control of his blood pressure. I will increase the dose of hydralazine to 50 t.i.d. and if necessary to 75 t.i.d. Continue rest of his medications. Seek Nephrology input and possible catheterization on Saturday. MMCAROLYNE / MARITZA: [id number] /
--- NOTE | 2020-04-24 10:22 | US ---
EXAMINATION TYPE: US chest DATE OF EXAM: 04/24/2020 COMPARISON: Chest radiograph 04/24/2020 CLINICAL HISTORY: Markings for thoracentesis by pulmonary staff. Pleural effusion on x-ray, previous kyara on the right chest 4 days prior TECHNIQUE: Targeted ultrasound of the posterior lower Bilateral EXAM MEASUREMENTS: Right Pleural Effusion pocket size: 12.5 cm Right skin surface to fluid distance: 4.3 cm Left Pleural Effusion pocket size: 2.8 cm Right side marked for possible thoracentesis outside the dept. Left side NOT marked for possible thoracentesis outside the dept. Pulmonologists are able to review the images in the patient?s EMR. IMPRESSIONS: 1. Significant right pleural effusion, with site marking of the right chest for potential thoracentes is. 2. Tiny left pleural effusion, with no site marking of the left chest.
[2020-04-24 11:06] LABS: Glucose,Whole Blood 140 mg/dL (75-99)
--- NOTE | 2020-04-24 11:31 | XR ---
EXAMINATION TYPE: XR chest 1V portable DATE OF EXAM: 04/24/2020 CLINICAL HISTORY: Status post thoracentesis TECHNIQUE: Portable upright view of the chest obtained COMPARISON: 05/14/2020 chest radiograph at 6:13 AM FINDINGS: Right internal jugular central venous catheter distal tip over the right atrium. Interval decrease in right pleural effusion with tiny residual effusion. There is improved aeration of the rig ht lung base. Cardiomegaly redemonstrated. No pneumothorax. IMPRESSION: Significant interval decrease in size of right-sided pleural effusion status post thorace ntesis. No pneumothorax.
[2020-04-24] MEDS: HEPARIN SODIUM,PORCINE 5,000 UNIT/ML 1 ML VIAL SQ SCH ×2 (12:03→18:10)
[2020-04-24] MEDS: amLODIPine 5 MG TAB PO SCH (12:03)
[2020-04-24] MEDS: FUROSEMIDE 10 MG/ML 10 ML VIAL IV SCH ×2 (12:04→20:31)
[2020-04-24] MEDS: CYANOCOBALAMIN 500 MCG TAB PO SCH (12:04)
[2020-04-24] MEDS: FERROUS SULFATE 325 MG TAB PO SCH ×3 (12:04→22:51)
[2020-04-24] MEDS: predniSONE 10 MG TAB PO SCH (12:05)
[2020-04-24] MEDS: GABAPENTIN 300 MG CAP PO SCH ×2 (12:05→20:32)
[2020-04-24] MEDS: ISOSORBIDE MONONITRATE ER 60 MG TAB.ER.24H PO SCH ×2 (12:05→20:33)
[2020-04-24] MEDS: METOPROLOL TARTRATE 25 MG TAB PO SCH ×2 (12:05→20:27)
[2020-04-24] MEDS: RANOLAZINE 500 MG TAB.ER.12H PO SCH ×2 (12:06→20:30)
[2020-04-24] MEDS: hydrALAZINE HCL 50 MG TAB PO SCH ×3 (12:07→22:51)
--- NOTE | 2020-04-24 12:25 | P.CNPUL ---
History of Present Illness Consult date: 04/24/20 Reason for consult: dyspnea Chief complaint: Shortness of breath History of present illness: This is a 70-year-old white male familiar to my service, patient was recently in the hospital with what seemed to be congestive heart failure secondary to mitral valve disease. Patient also had acute on chronic kidney disease. Patient normally has chronic kidney disease stage IV secondary to diabetic nephropathy and underlying IgA nephropathy. He normally sees nephrology on outpatient basis. Patient was in the hospital last week, however on 04/22/20, patient left the hospital AGAINST MEDICAL ADVICE. We saw him last on 04/21/20, and we felt that the patient was responding well to diuretics, and bronchodilators, and he w as also on antibiotics in the form of Augmentin. As well as heparin drip. He had at the time a good sized right-sided pleural effusion however the patient was improving with diuretics, and we were certain that the effusion is cardiac in nature, did not recommend thoracentesis. His other medical problems on his last admission included non-ST elevation myocardial infarction, acute exacerbation of COPD, chronic kidney disease stage IV, insulin-dependent diabetes, symptomatic anemia requiring multiple transfusions on a regular basis/outpatient basis he also had hypertension peripheral vessel occlusive disease and abnormal echocardiogram questioning density which may represent part of the chordae or vegetations and JENNIFER was recommended but never done. This was recommended mostly to evaluate his mitral valve disease. His ejection fraction was basically normal. And he was also noted to have inferior hypokinesis. At any rate when the patient presented to the ER yesterday, he was extremely short of breath, he was placed initially on BiPAP, and I was notified about this patient early this morning. I recommended Lasix 40 mg IV push, patient responded well to diuretics, and he was transitioned from BiPAP to a nasal cannula presently at 6 L high flow nasal cannula and seems to be comfortable. I reviewed his chest x-ray ultrasound of the chest, and I performed a right sided thoracentesis, 1300 mL of fluid was drained from the right pleural space. The fluid was clear, and it was sent for different diagnostic studies, suspect the fluid is transudative unless proven otherwise Review of Systems Constitutional: Denies chills, Denies fever Eyes: denies blurred vision, denies pain Ears, nose, mouth and throat: Denies headache, Denies sore throat Cardiovascular: Reports shortness of breath and vague left-sided chest discomfort. Respiratory: As noted in HPI. Gastrointestinal: Denies abdominal pain, Denies diarrhea, Denies nausea, Denies vomiting Musculoskeletal: Denies myalgias Integumentary: Denies pruritus, Denies rash Neurological: Denies numbness, Denies weakness Psychiatric: Denies anxiety, Denies depression Endocrine: Denies fatigue, Denies weight change Past Medical History Past Medical History: Coronary Artery Disease (CAD), Chest Pain / Angina, Diabetes Mellitus, GERD/Reflux, GI Bleed, Hyperlipidemia, Hypertension, Pneumonia, Renal Disease, Vascular Disorder Additional Past Medical History / Comment(s): IDDM type II, lower GI bleed, benign colon polyps, spouse states micro bleeds in intestine are suspected, abdominal distention comes and goes which is nearly daily, partial SBO, chronic renal disease stage IV, iron anemia with iron transfusions (recent R upper chest mediport for infusions), PVD, stable lung nodules, chronic low back pain with bilateral sciatica, RLS, vertigo, insomnia, past agent orange exposure. History of Any Multi-Drug Resistant Organisms: None Reported Past Surgical History: Cholecystectomy, Heart Catheterization Additional Past Surgical History / Comment(s): 03/25/20 R sublclavian mediport, R carotid stent done in [place], EGD/colonoscopyDece2016, endoscopic capsule, fx lt wrist -sx re-set, aortagram, bilateral leg revascularizations/stents Past Anesthesia/Blood Transfusion Reactions: No Reported Reaction Additional Past Anesthesia/Blood Transfusion Reaction / Comment(s): Pt has had blood transfusion without reaction. Past Psychological History: Depression, PTSD Smoking Status: Current every day smoker Past Alcohol Use History: None Reported Past Drug Use History: Marijuana - Past Family History Father History Unknown: Yes Mother Family Medical History: Cancer Additional Family Medical History / Comment(s): Mother from metastatic cancer pelvic origin. Medications and Allergies Home Medications Medication Instructions Recorded Confirmed Type Ergocalciferol (Vitamin D2) 50,000 unit PO Q14D 07/18/17 04/24/20 History [Vitamin D2] Simvastatin [Zocor] 40 mg PO HS 07/18/17 04/24/20 History Aspirin EC [Ecotrin Low Dose] 81 mg PO HS 02/10/18 04/24/20 History Ferrous Sulfate [Iron (65 MG 325 mg PO TID 02/10/18 04/24/20 History Elemental)] Cyanocobalamin [Vitamin B-12] 500 mcg PO DAILY 09/23/18 04/24/20 History Insulin Glargine [Lantus] 30 unit SQ HS 09/23/18 04/24/20 History hydrALAZINE HCL 25 mg PO TID 09/23/18 04/24/20 History Gabapentin [Neurontin] 300 mg PO BID 01/09/19 04/24/20 History rOPINIRole HCL [Requip] 0.25 mg PO BID 01/09/19 04/24/20 History Melatonin 5 mg PO HS 05/22/19 04/24/20 History glipiZIDE [Glucotrol] 5 mg PO W/LUNCH 05/22/19 04/24/20 History amLODIPine [Norvasc] 5 mg PO DAILY 06/22/19 04/24/20 History calcitrioL [Rocaltrol] 0.25 mcg PO SANTOS 09/17/19 04/24/20 History Omeprazole [PriLOSEC] 20 mg PO AC-BRKFST 09/25/19 04/24/20 History Sodium Bicarbonate 650 mg PO BID 03/22/20 04/24/20 History Clopidogrel [Plavix] 75 mg PO HS 04/18/20 04/24/20 History Albuterol Inhaler [Ventolin Hfa 1 puff INHALATION Q6HR PRN #1 inh 04/21/20 04/24/20 Rx Inhaler] Amoxic-Pot Clav 875-125Mg 1 each PO Q12HR 7 Days #14 tab 04/21/20 04/24/20 Rx [Augmentin 875-125] Furosemide [Lasix] 40 mg PO BID@0900,1600 #60 tab 04/21/20 04/24/20 Rx Isosorbide Mononitrate ER [Imdur] 60 mg PO BID #60 tab.er.24h 04/21/20 04/24/20 Rx Metoprolol Tartrate [Lopressor] 25 mg PO TID #90 tab 04/21/20 04/24/20 Rx Nitroglycerin Sl Tabs [Nitrostat] 0.4 mg SUBLINGUAL Q5M PRN #20 tab 04/21/20 04/24/20 Rx Ranolazine [Ranexa] 500 mg PO Q12HR #60 tab.er.12h 04/21/20 04/24/20 Rx Allergies Allergy/AdvReac Type Severity Reaction Status Date / Time Iodinated Contrast Media Allergy CAN'T Verified 04/24/20 09:13 TAKE, RENAL DISEASE Iodine and Iodide Containing Allergy CAN'T Verified 04/24/20 09:13 Produc TAKE, RENAL DISEASE Physical Exam Vitals: Vital Signs Temp Pulse Resp BP Pulse Ox 04/24/20 11:00 64 14 106/60 98 04/24/20 10:00 58 L 15 169/72 94 L 04/24/20 09:00 62 15 160/67 94 L 04/24/20 08:00 97.4 F L 62 14 156/66 94 L 04/24/20 07:00 58 L 15 151/64 95 04/24/20 06:00 60 14 170/73 94 L 04/24/20 05:00 66 15 154/72 95 04/24/20 04:00 97.9 F 62 13 158/76 93 L 04/24/20 03:09 98.8 F 73 20 146/62 96 04/24/20 02:00 98.7 F 63 20 143/72 96 04/24/20 01:00 97.6 F 66 20 174/77 95 04/24/20 00:00 97.8 F 72 22 154/68 94 L 04/23/20 23:05 78 22 164/70 97 04/23/20 22:50 97.5 F L 81 35 H 163/93 94 L Intake and Output 04/23/20 04/24/20 04/24/20 22:59 06:59 14:59 Output Total 450 505 Balance -450 -505 Output: Urine 450 505 Uretheral (Toth) 300 Other: Voiding Method Indwelling Catheter Indwelling Catheter Weight 95.799 kg 95.799 kg GENERAL EXAM: Alert, very pleasant, 70-year-old white male, resting in bed, on 5 L of oxygen the pulse ox of 96%, did require BiPAP support last night, comfortable in no apparent distress. Head: Atraumatic, normocephalic. EENT: PERRLA, EOMI, neck is, chronic masses, no JVD. CHEST: No chest wall deformity. Symmetrical expansion. LUNGS: Clear throughout except diminished at the left base and dull. CVS: Regular rate and rhythm, normal S1 and S2, no gallops, 2/6 systolic murmur throughout the precordium. ABDOMEN: Soft, nontender. No hepatosplenomegaly, normal bowel sounds, no guarding or rigidity. EXTREMITIES: No clubbing, 2+ bipedal edema., no cyanosis, 2+ pulses and upper and lower extremities. MUSCULOSKELETAL: Muscle strength and tone normal. SPINE: No scoliosis or deformity SKIN: No rashes CENTRAL NERVOUS SYSTEM: Alert and oriented -3. No focal deficits, tone is normal in all 4 extremities. PSYCHIATRIC: Alert and oriented -3. Appropriate affect. Intact judgment and insight. Results - Laboratory Findings CBC and BMP: 04/24/20 07:00 04/24/20 07:00 PT/INR, D-dimer PT 9.4 sec (9.0-12.0) 04/23/20 23:00 INR 0.9 (<1.2) 04/23/20 23:00 Abnormal lab findings: Abnormal Labs 04/23/20 04/23/20 04/23/20 23:00 23:00 23:00 WBC 16.4 H RBC 3.16 L Hgb 9.5 L D Hct 31.9 L MCV 101.0 H MCHC 29.8 L Plt Count 459 H Neutrophils # 14.5 H Lymphocytes # 0.8 L Sodium 132 L Chloride 97 L BUN 51 H Creatinine 3.83 H Glucose 578 H* POC Glucose (mg/dL) AST Troponin I 1.370 H* Total Protein 6.1 L Albumin Procalcitonin Urine Protein Urine Glucose (UA) Urine Blood 04/23/20 04/23/20 04/24/20 23:00 23:02 00:27 WBC RBC Hgb Hct MCV MCHC Plt Count Neutrophils # Lymphocytes # Sodium Chloride BUN Creatinine Glucose POC Glucose (mg/dL) 529 H 539 H AST Troponin I Total Protein Albumin Procalcitonin 0.20 H Urine Protein Urine Glucose (UA) Urine Blood 04/24/20 04/24/20 04/24/20 01:35 01:37 02:55 WBC RBC Hgb Hct MCV MCHC Plt Count Neutrophils # Lymphocytes # Sodium Chloride BUN Creatinine Glucose POC Glucose (mg/dL) 541 H AST Troponin I 1.230 H* Total Protein Albumin Procalcitonin Urine Protein 3+ H Urine Glucose (UA) 4+ H Urine Blood Trace H 04/24/20 04/24/20 04/24/20 03:26 06:46 07:00 WBC 11.0 H RBC 2.90 L Hgb 9.0 L Hct 28.7 L MCV MCHC Plt Count Neutrophils # 9.4 H Lymphocytes # 0.7 L Sodium Chloride BUN Creatinine Glucose POC Glucose (mg/dL) 475 H 394 H AST Troponin I Total Protein Albumin Procalcitonin Urine Protein Urine Glucose (UA) Urine Blood 04/24/20 04/24/20 07:00 11:04 WBC RBC Hgb Hct MCV MCHC Plt Count Neutrophils # Lymphocytes # Sodium 135 L Chloride BUN 54 H Creatinine 3.73 H Glucose 332 H POC Glucose (mg/dL) 140 H AST 13 L Troponin I Total Protein 5.5 L Albumin 3.0 L Procalcitonin Urine Protein Urine Glucose (UA) Urine Blood - Diagnostic Findings Chest x-ray: image reviewed (Chest x-ray is consistent with congestive heart failure, doubt any evidence of pneumonia based on the chest x-ray findings and based on the clinical presentation.) Assessment and Plan Assessment: Impression: Acute on chronic hypoxic respiratory failure secondary to congestive heart failure suspected diastolic dysfunction also suspect mitral valve disease which may require further investigation. Right pleural effusion and left pleural effusion secondary to congestive heart failure. Status post right-sided thoracentesis today. Acute non-ST elevation myocardial infarction History of underlying COPD, presently inactive. Chronic kidney disease stage IV, patient is known to have diabetic nephropathy and possibly IgA nephropathy. Insulin-dependent diabetes. Chronic iron deficiency anemia requiring multiple transfusions of viral on outpatient basis. Benign essential hypertension with hypertensive nephropathy. Peripheral vessel occlusive disease and previous intervention for total occlusion of the right sfa and PTCA and stenting of the left SFA Carotid artery disease and previous stenting. Recommendation: Continue oxygen. Continue diuretics, I have recommended 80 mg of Lasix IV push every 12 hours. Recommended thoracentesis and this was done 1500 mL of fluid drained from the right pleural space. Sent for different diagnostic studies. Titrate FiO2 to keep O2 saturation above 90%. Resume his home meds and bronchodilators. No need for antibiotics at this point. His last pro-calcitonin on the last admission was borderline elevated, and his BNP is extremely elevated on this admission. Cardiology to evaluate and consider further evaluation of the mitral valve possibly JENNIFER. We'll continue to monitor in the ICU for the next 24 hours. Prognosis is definitely guarded considering the multiple and complex issues noted above. Time with Patient: Greater than 30
[2020-04-24] MEDS: glipiZIDE 5 MG TAB PO SCH (13:24)
[2020-04-24] MEDS: SODIUM BICARBONATE TAB 650 MG TAB PO SCH ×2 (13:24→20:27)
--- NOTE | 2020-04-24 13:47 | OP ---
OPERATIVE REPORT PROCEDURE: Right-sided thoracentesis. PREOPERATIVE DIAGNOSIS: Right pleural effusion and congestive heart failure. POSTOPERATIVE DIAGNOSIS: Right pleural effusion and congestive heart failure. ANESTHESIA: 6 mL of 1% lidocaine placed in multiple sites. DESCRIPTION OF PROCEDURE: The patient was placed in a sitting upright position, the area below and lateral to the right scapula was prepared in a sterile fashion and drapes were applied. Then a standard 26-gauge needle was used. The area was locally anesthetized. Then, with a 26- gauge needle, I entered the pleural space, localized the fluid, and when I attempted to reach the fluid with a standard thoracentesis catheter and needle, I could not get any fluid back in the catheter. Multiple attempts were made on the right side, then we called the ultrasound again, and localized the fluid again at the tip of the scapula and 8th intercostal space. The area now was prepared in a sterile fashion, the drapes were applied, and the procedure was attempted on this site. The area was locally anesthetized and a 26-gauge cannula inserted into the same pleural space. The fluid was localized and the standard thoracentesis catheter and needle were used, advanced into the same site and the pleural fluid was obtained. The fluid was initially clear but later turned out to be slightly serosanguineous. Roughly 1300 mL of fluid was drained from the right pleural space, and it was sent for different diagnostic studies. The procedure was well tolerated, there was no evidence of any immediate complications. And there was complete clearing of the right-sided pleural effusion and no evidence of pneumothorax post the procedure/multiple attempts. MMODL / IJN: [id number] /
[2020-04-24 14:48] LABS: Appearance,BF Blood Tinged; Nucleated Cells, Body Fluid 0 /uL; RBC, Body Fluid 16800 /uL
[2020-04-24 16:48] LABS: Glucose,Whole Blood 273 mg/dL (75-99)
[2020-04-24 17:33] LABS: Glucose, BF Source Pleural Fluid; Glucose, Body Fluid 292 mg/dL; LDH, Body Fluid Source Pleural Fluid; Total Protein, Body Fluid 1168 mg/dL
[2020-04-24] MEDS: ATORVASTATIN 20 MG TAB PO SCH (20:30)
[2020-04-24] MEDS: CLOPIDOGREL 75 MG TAB PO SCH (20:30)
[2020-04-24] MEDS: ASPIRIN 81 MG PO SCH (20:30)
[2020-04-24 21:00] LABS: Glucose,Whole Blood 424 mg/dL (75-99)
[2020-04-24] MEDS ORDERED: INSULIN DETEMIR (LEVEMIR) 100 UNIT/ML SYR SQ SCH ×2 (21:00)
[2020-04-24 22:45] LABS: Glucose,Whole Blood 454 mg/dL (75-99)
[2020-04-24] MEDS: MELATONIN 5 MG TABLET PO SCH (22:51)
[2020-04-25] MEDS: HEPARIN SODIUM,PORCINE 5,000 UNIT/ML 1 ML VIAL SQ SCH ×4 (00:25→23:47)
[2020-04-25 05:03] LABS: Basophils % (A) 0 %; Eosinophils # (A) 0.1 k/uL (0-0.7); Eosinophils % (A) 1 %; HCT 26.9 % (39.0-53.0); HGB 8.2 gm/dL (13.0-17.5); Hypochromasia Marked; Lymphocytes # (A) 0.7 k/uL (1.0-4.8); Lymphocytes % (A) 5 %; MCH 30.4 pg (25.0-35.0); MCHC 30.6 g/dL (31.0-37.0); MCV 99.2 fL (80.0-100.0); Macrocytosis Slight; Mean Platelet Volume 8.7; Monocytes # (A) 0.6 k/uL (0-1.0); Monocytes % (A) 4 %; Neutrophils # (A) 12.4 k/uL (1.3-7.7); Neutrophils % (A) 90 %; Platelet Count 389 k/uL (150-450); RBC 2.71 m/uL (4.30-5.90); RDW 15.5 % (11.5-15.5); WBC 13.8 k/uL (3.8-10.6)
[2020-04-25 05:23] LABS: Calcium 8.5 mg/dL (8.4-10.2); Potassium 4.4 mmol/L (3.5-5.1)
[2020-04-25 06:36] LABS: Glucose,Whole Blood 296 mg/dL (75-99)
[2020-04-25] MEDS: INSULIN ASPART (NovoLOG) 100 UNIT/ML VIAL SQ SCH ×4 (06:56→21:36)
[2020-04-25] MEDS: INSULIN DETEMIR (LEVEMIR) 100 UNIT/ML SYR SQ SCH ×2 (08:15→21:36)
[2020-04-25] MEDS: FERROUS SULFATE 325 MG TAB PO SCH ×3 (08:15→21:33)
[2020-04-25] MEDS: predniSONE 10 MG TAB PO SCH (08:15)
[2020-04-25] MEDS: hydrALAZINE HCL 50 MG TAB PO SCH ×3 (08:16→21:34)
[2020-04-25] MEDS: ISOSORBIDE MONONITRATE ER 60 MG TAB.ER.24H PO SCH ×2 (08:16→21:34)
[2020-04-25] MEDS: PANTOPRAZOLE 40 MG TABLET PO SCH (08:16)
[2020-04-25] MEDS: CYANOCOBALAMIN 500 MCG TAB PO SCH (08:16)
[2020-04-25] MEDS: GABAPENTIN 300 MG CAP PO SCH ×2 (08:16→21:33)
[2020-04-25] MEDS: RANOLAZINE 500 MG TAB.ER.12H PO SCH ×2 (08:16→21:33)
[2020-04-25] MEDS: SODIUM BICARBONATE TAB 650 MG TAB PO SCH ×2 (08:16→21:35)
[2020-04-25] MEDS: METOPROLOL TARTRATE 25 MG TAB PO SCH ×2 (08:16→21:35)
[2020-04-25] MEDS: amLODIPine 5 MG TAB PO SCH (08:17)
[2020-04-25] MEDS: FUROSEMIDE 10 MG/ML 10 ML VIAL IV SCH ×2 (08:19→21:35)
[2020-04-25] MEDS ORDERED: LEVOFLOXACIN 750 MG TAB PO SCH (09:00)
--- NOTE | 2020-04-25 10:06 | P.PN ---
Subjective Progress Note Date: 04/25/20 Principal diagnosis: Acute on chronic hypoxic respiratory failure secondary to diastolic congestive heart failure and mitral valve disease. This is a 70-year-old white male familiar to my service, patient was recently in the hospital with what seemed to be congestive heart failure secondary to mitral valve disease. Patient also had acute on chronic kidney disease. Patient no rmally has chronic kidney disease stage IV secondary to diabetic nephropathy and underlying IgA nephropathy. He normally sees nephrology on outpatient basis. Patient was in the hospital last week, however on 04/22/20, patient left the hospital AGAINST MEDICAL ADVICE. We saw him last on 04/21/20, and we felt that the patient was responding well to diuretics, and bronchodilators, and he was also on antibiotics in the form of Augmentin. As well as heparin drip. He had at the time a good sized right-sided pleural effusion however the patient was improving with diuretics, and we were certain that the effusion is cardiac in nature, did not recommend thoracentesis. His other medical problems on his last admission included non-ST elevation myocardial infarction, acute exacerbation of COPD, chronic kidney disease stage IV, insulin-dependent diabetes, symptomatic anemia requiring multiple transfusions on a regular basis/outpatient basis he also had hypertension peripheral vessel occlusive disease and abnormal echocardiogram questioning density which may represent part of the chordae or vegetations and JENNIFER was recommended but never done. This was recommended mostly to evaluate his mitral valve disease. His ejection fraction was basically normal. And he was also noted to have inferior hypokinesis. At any rate when the patient presented to the ER yesterday, he was extremely short of breath, he was placed initially on BiPAP, and I was notified about this patient early this morning. I recommended Lasix 40 mg IV push, patient responded well to diuretics, and he was transitioned from BiPAP to a nasal cannula presently at 6 L high flow nasal cannula and seems to be comfortable. I reviewed his chest x- ray ultrasound of the chest, and I performed a right sided thoracentesis, 1300 m L of fluid was drained from the right pleural space. The fluid was clear, and it was sent for different diagnostic studies, suspect the fluid is transudative unless proven otherwise Patient was reevaluated today on 04/25/20 remains in the ICU, remains on Lasix at 40 mg IV push every 12 hours, remains on oxygen at 4 L/m, patient is feeling much better. Continues to be in negative balance. Patient had a negative balance of 3.6 L since admission yesterday he is feeling better breathing easier. No chest x-ray was done. Patient also underwent a right sided thoracentesis yesterday, and I was able to drain over 1300 mL of transudative pleural effusion. Low LDH and low protein noted on the fluid today. So this is clearly a fluid of congestive heart failure not a fluid of infection or malign boy. Labs today were reviewed WBC count is 13.8 hemoglobin is 8.2 electrolytes are normal his BUN is 60 creatinine is 3.90, slightly worse compared to yesterday, it was 3.83 on admission. Patient is being followed by nephrology. And today I will go ahead and cut down on the Lasix dose. We will make Lasix 60 mg IV push every 12 hours instead of 80 mg IV push every 12 hours. We will also arrange for the patient to be transferred to a monitor bed on selective. Objective - Vital Signs Vital signs: Vital Signs Temp 97.4 F L 04/25/20 08:00 Pulse 63 04/25/20 08:00 Resp 14 04/25/20 08:00 BP 169/68 04/25/20 08:00 Pulse Ox 91 L 04/25/20 08:00 Intake & Output 04/24/20 04/25/20 04/25/20 18:59 06:59 18:59 Intake Total 300 Output Total 2705 1270 170 Balance -2405 -1270 -170 Weight 91.6 kg Intake: Oral 300 Output: Urine 1405 1270 170 Other 1300 Other: Voiding Method Indwelling Catheter Indwelling Catheter Indwelling Catheter - Exam GENERAL EXAM: Alert, very pleasant, 70-year-old white male, resting in bed, on 4 L nasal cannula. Head: Atraumatic, normocephalic. EENT: PERRLA, EOMI, neck is, chronic masses, no JVD. CHEST: No chest wall deformity. Symmetrical expansion. LUNGS: Diminished at the bases no crackles or rhonchi or wheezes CVS: Regular rate and rhythm, normal S1 and S2, no gallops, 2/6 systolic murmur throughout the precordium. ABDOMEN: Soft, nontender. No hepatosplenomegaly, normal bowel sounds, no guarding or rigidity. EXTREMITIES: No clubbing, 2+ bipedal edema., no cyanosis, 2+ pulses and upper and lower extremities. MUSCULOSKELETAL: Muscle strength and tone normal. SPINE: No scoliosis or deformity SKIN: No rashes CENTRAL NERVOUS SYSTEM: Alert and oriented -3. No focal deficits, tone is normal in all 4 extremities. PSYCHIATRIC: Alert and oriented -3. Appropriate affect. Intact judgment and insight. - Labs CBC & Chem 7: 04/25/20 04:05 04/25/20 04:05 Labs: Abnormal Lab Results - Last 24 Hours (Table) 04/23/20 04/24/20 04/24/20 Range/Units 23:00 11:04 16:46 WBC (3.8-10.6) k/uL RBC (4.30-5.90) m/uL Hgb (13.0-17.5) gm/dL Hct (39.0-53.0) % MCHC (31.0-37.0) g/dL Neutrophils # (1.3-7.7) k/uL Lymphocytes # (1.0-4.8) k/uL Sodium (137-145) mmol/L BUN (9-20) mg/dL Creatinine (0.66-1.25) mg/dL Glucose (74-99) mg/dL POC Glucose (mg/dL) 140 H 273 H (75-99) mg/dL Procalcitonin 0.20 H (0.02-0.09) ng/mL 04/24/20 04/24/20 04/25/20 Range/Units 20:58 22:43 04:05 WBC 13.8 H (3.8-10.6) k/uL RBC 2.71 L (4.30-5.90) m/uL Hgb 8.2 L (13.0-17.5) gm/dL Hct 26.9 L (39.0-53.0) % MCHC 30.6 L (31.0-37.0) g/dL Neutrophils # 12.4 H (1.3-7.7) k/uL Lymphocytes # 0.7 L (1.0-4.8) k/uL Sodium (137-145) mmol/L BUN (9-20) mg/dL Creatinine (0.66-1.25) mg/dL Glucose (74-99) mg/dL POC Glucose (mg/dL) 424 H 454 H (75-99) mg/dL Procalcitonin (0.02-0.09) ng/mL 04/25/20 04/25/20 Range/Units 04:05 06:34 WBC (3.8-10.6) k/uL RBC (4.30-5.90) m/uL Hgb (13.0-17.5) gm/dL Hct (39.0-53.0) % MCHC (31.0-37.0) g/dL Neutrophils # (1.3-7.7) k/uL Lymphocytes # (1.0-4.8) k/uL Sodium 135 L (137-145) mmol/L BUN 60 H (9-20) mg/dL Creatinine 3.90 H (0.66-1.25) mg/dL Glucose 265 H (74-99) mg/dL POC Glucose (mg/dL) 296 H (75-99) mg/dL Procalcitonin (0.02-0.09) ng/mL Microbiology - Last 24 Hours (Table) 04/24/20 11:00 Gram Stain - Preliminary Pleural Fluid Body Fluid Culture - Preliminary Assessment and Plan Assessment: Impression: Acute on chronic hypoxic respiratory failure secondary to congestive heart failure suspected diastolic dysfunction also suspect mitral valve disease which may require further investigation. Right pleural effusion and left pleural effusion secondary to congestive heart failure. Status post right-sided thoracentesis today. Acute non-ST elevation myocardial infarction History of underlying COPD, presently inactive. Chronic kidney disease stage IV, patient is known to have diabetic nephropathy and possibly IgA nephropathy. Insulin-dependent diabetes. Chronic iron deficiency anemia requiring multiple transfusions of viral on outpatient basis. Benign essential hypertension with hypertensive nephropathy. Peripheral vessel occlusive disease and previous intervention for total occlusion of the right sfa and PTCA and stenting of the left SFA Carotid artery disease and previous stenting. Recommendation: Continue oxygen. Titrate accordingly, keep O2 saturation above 90% Continue diuretics, however the dose was decreased to 60 mg IV push every 12 hours. Patient had a 3.6 L negative balance over the last 24 hours. Status post thoracentesis and this was done, fluid was transudative Titrate FiO2 to keep O2 saturation above 90%. Continue home meds and bronchodilators.. Again no need for antibiotics. Cardiology to evaluate and consider further evaluation of the mitral valve possibly JENNIFER. Transfer to a monitor bed on selective Long-term prognosis remains guarded. We'll continue to follow Time with Patient: Less than 30
[2020-04-25] MEDS ORDERED: amLODIPine 5 MG TAB PO STA (11:09)
[2020-04-25 11:54] LABS: Glucose,Whole Blood 256 mg/dL (75-99)
[2020-04-25] MEDS ORDERED: INSULIN DETEMIR (LEVEMIR) 100 UNIT/ML SYR SQ ONE ×2 (12:00→21:08)
[2020-04-25] MEDS: glipiZIDE 5 MG TAB PO SCH (12:39)
--- NOTE | 2020-04-25 13:21 | PN ---
PROGRESS NOTE This is a 70-year-old gentleman with end-stage renal disease, who was recently admitted to the hospital with non ST-segment elevation TX and was discharged home. He sees Dr. Sims in the outpatient setting. He came back with chest pain and shortness of breath. He was in heart failure. He is doing much better. Continues to have renal failure and had been evaluated by Nephrology and patient understands that he will need renal replacement therapy if he has cardiac catheterization. CURRENT MEDICATIONS: Include aspirin, Norvasc, Lipitor, Plavix, Apresoline, Imdur, Lopressor 25 b.i.d. and Ranexa. PHYSICAL EXAMINATION: On exam comfortable at rest. Heart rate is 53 beats per minute, blood pressure 169/69, respiratory rate is 18. Chest exam reveals good air entry bilaterally. Heart exam reveals first and second heart sounds. No gallop. Exam of extremities did not reveal any edema. Peripheral pulses are felt. LABORATORY DATA: Lab show a hemoglobin of 8.2, potassium is 4.4, creatinine is 3.9. ASSESSMENT: 1. Acute non ST-segment elevation myocardial infarction. 2. Uncontrolled hypertension. 3. Acute onset heart failure. PLAN: I will control his blood pressure more optimally by increasing the hydralazine to 100 mg t.i.d. and Norvasc to 10 mg daily and schedule him for a cardiac cath tomorrow. MMYOJANAL / EMILYN: [id number] /
--- NOTE | 2020-04-25 13:26 | P.PN ---
Subjective Progress Note Date: 04/25/20 Follow-up for acute kidney injury/chronic kidney disease. 3.5 L of urine output in the last 24 hours Objective - Vital Signs Vital signs: Vital Signs Temp 97.7 F 04/25/20 12:00 Pulse 75 04/25/20 12:00 Resp 17 04/25/20 12:00 BP 153/64 04/25/20 12:00 Pulse Ox 93 L 04/25/20 12:00 Intake & Output 04/24/20 04/25/20 04/25/20 18:59 06:59 18:59 Intake Total 300 Output Total 2705 1270 945 Balance -7748 -8050 -945 Weight 91.6 kg Intake: Oral 300 Output: Urine 1405 1270 945 Other 1300 Other: Voiding Method Indwelling Catheter Indwelling Catheter Indwelling Catheter - Exam No acute distress. S1-S2 heard Lungs decreased breath sounds Edema Toth good urine - Labs CBC & Chem 7: 04/25/20 04:05 04/25/20 04:05 Labs: Abnormal Lab Results - Last 24 Hours (Table) 04/24/20 04/24/20 04/24/20 Range/Units 16:46 20:58 22:43 WBC (3.8-10.6) k/uL RBC (4.30-5.90) m/uL Hgb (13.0-17.5) gm/dL Hct (39.0-53.0) % MCHC (31.0-37.0) g/dL Neutrophils # (1.3-7.7) k/uL Lymphocytes # (1.0-4.8) k/uL Sodium (137-145) mmol/L BUN (9-20) mg/dL Creatinine (0.66-1.25) mg/dL Glucose (74-99) mg/dL POC Glucose (mg/dL) 273 H 424 H 454 H (75-99) mg/dL 04/25/20 04/25/20 04/25/20 Range/Units 04:05 04:05 06:34 WBC 13.8 H (3.8-10.6) k/uL RBC 2.71 L (4.30-5.90) m/uL Hgb 8.2 L (13.0-17.5) gm/dL Hct 26.9 L (39.0-53.0) % MCHC 30.6 L (31.0-37.0) g/dL Neutrophils # 12.4 H (1.3-7.7) k/uL Lymphocytes # 0.7 L (1.0-4.8) k/uL Sodium 135 L (137-145) mmol/L BUN 60 H (9-20) mg/dL Creatinine 3.90 H (0.66-1.25) mg/dL Glucose 265 H (74-99) mg/dL POC Glucose (mg/dL) 296 H (75-99) mg/dL 04/25/20 Range/Units 11:52 WBC (3.8-10.6) k/uL RBC (4.30-5.90) m/uL Hgb (13.0-17.5) gm/dL Hct (39.0-53.0) % MCHC (31.0-37.0) g/dL Neutrophils # (1.3-7.7) k/uL Lymphocytes # (1.0-4.8) k/uL Sodium (137-145) mmol/L BUN (9-20) mg/dL Creatinine (0.66-1.25) mg/dL Glucose (74-99) mg/dL POC Glucose (mg/dL) 256 H (75-99) mg/dL Microbiology - Last 24 Hours (Table) 04/24/20 11:00 Gram Stain - Preliminary Pleural Fluid Body Fluid Culture - Preliminary Assessment and Plan Assessment: #1 nonoliguric acute kidney injury secondary to type I cardiorenal syndrome. #2 chronic kidney disease stage IV secondary to diabetic kidney disease with a baseline creatinine of 3.0-3.3 MG per DL. #3 acute respiratory failure secondary to volume overload with pulmonary edema #4 hypertension with chronic kidney disease #5 diastolic CHF #6 volume overload #7 anemia with chronic kidney disease #8 metabolic bone disease Plan: #1 continue with Lasix 60 mg IV twice a day. Goal net negative off 2 L per day. #2 strict ins and outs. Fluid restriction of 1500 ML's per day. #3 okay for cardiac cath with minimal dye use if urgent. If not wait until renal function stabilizes. 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
[2020-04-25] MEDS ORDERED: NITROGLYCERIN-D5W PMX 50 MG in DEXTROSE/WATER 1 250ML.BAG IV SCH (15:15)
[2020-04-25 17:23] LABS: Glucose,Whole Blood 330 mg/dL (75-99)
[2020-04-25 20:22] LABS: Glucose,Whole Blood 420 mg/dL (75-99)
--- NOTE | 2020-04-25 21:01 | P.HPIM ---
History of Present Illness This is a pleasant 70 years old male with past medical history of diabetes mellitus, hyperlipidemia, hypertension, GI bleed, chronic kidney disease stage IV, iron deficiency anemia and he follows with Dr. Singletary and receiving multiple iron transfusion through his port and the right upper chest, chronic low back pain with bilateral sciatica, vertigo, coronary artery disease . He was recently treated this hospital from 04/18-04/21 for heart attack, at that time he had None STEMI, decided to be treated medically as cardiac cath will put him at risk of hemodialysis, he had chronic kidney disease stage IV, acute diastolic CHF and possible right lower lobe pneumonia and pleural effusion decided to be treated medically and improved significantly with Augmentin and Lasix. Sugar was more than 400 at that time and he did not want to wait to control his sugar and he just left. This time he presents with acute dyspnea REQUIRING BiPAP in the emergency room Review of Systems CONSTITUTIONAL: No fever, no malaise, no fatigue. HEENT: No recent visual problems or hearing problems. Denied any sore throat. CARDIOVASCULAR: No orthopnea, PND, no palpitations, no syncope. PULMONARY: no cough, no hemoptysis. GASTROINTESTINAL: No diarrhea, no nausea, no vomiting, no abdominal pain. Normoactive bowel sounds. NEUROLOGICAL: No headaches, no weakness, no numbness. HEMATOLOGICAL: Denies any bleeding or petechiae. GENITOURINARY: Denies any burning micturition, frequency, or urgency. MUSCULOSKELETAL/RHEUMATOLOGICAL: Denies any joint pain, swelling, or any muscle pain. ENDOCRINE: Denies any polyuria or polydipsia. Past Medical History Past Medical History: Coronary Artery Disease (CAD), Chest Pain / Angina, Diabetes Mellitus, GERD/Reflux, GI Bleed, Hyperlipidemia, Hypertension, Pneumonia, Renal Disease, Vascular Disorder Additional Past Medical History / Comment(s): IDDM type II, lower GI bleed, benign colon polyps, spouse states micro bleeds in intestine are suspected, abdominal distention comes and goes which is nearly daily, partial SBO, chronic renal disease stage IV, iron anemia with iron transfusions (recent R upper chest mediport for infusions), PVD, stable lung nodules, chronic low back pain with bilateral sciatica, RLS, vertigo, insomnia, past agent orange exposure. History of Any Multi-Drug Resistant Organisms: None Reported Past Surgical History: Cholecystectomy, Heart Catheterization Additional Past Surgical History / Comment(s): 03/25/20 R sublclavian mediport, R carotid stent done in [place], EGD/colonoscopyDecember 2017, endoscopic capsule, fx lt wrist -sx re-set, aortagram, bilateral leg revascularizations/stents Past Anesthesia/Blood Transfusion Reactions: No Reported Reaction Additional Past Anesthesia/Blood Transfusion Reaction / Comment(s): Pt has had blood transfusion without reaction. Past Psychological History: Depression, PTSD Smoking Status: Current every day smoker Past Alcohol Use History: None Reported Past Drug Use History: Marijuana - Past Family History Father History Unknown: Yes Mother Family Medical History: Cancer Additional Family Medical History / Comment(s): Mother from metastatic cancer pelvic origin. Medications and Allergies Home Medications Medication Instructions Recorded Confirmed Type RX: Ergocalciferol (Vitamin D2) 50,000 unit PO Q14D 07/18/17 04/24/20 History [Vitamin D2] RX: Simvastatin [Zocor] 40 mg PO HS 07/18/17 04/24/20 History RX: Aspirin EC [Ecotrin Low Dose] 81 mg PO HS 02/10/18 04/24/20 History RX: Ferrous Sulfate [Iron (65 MG 325 mg PO TID 02/10/18 04/24/20 History Elemental)] RX: Cyanocobalamin [Vitamin B-12] 500 mcg PO DAILY 09/23/18 04/24/20 History RX: Insulin Glargine [Lantus] 30 unit SQ HS 09/23/18 04/24/20 History RX: hydrALAZINE HCL 25 mg PO TID 09/23/18 04/24/20 History RX: Gabapentin [Neurontin] 300 mg PO BID 01/09/19 04/24/20 History RX: rOPINIRole HCL [Requip] 0.25 mg PO BID 01/09/19 04/24/20 History RX: Melatonin 5 mg PO HS 05/22/19 04/24/20 History RX: glipiZIDE [Glucotrol] 5 mg PO W/LUNCH 05/22/19 04/24/20 History RX: amLODIPine [Norvasc] 5 mg PO DAILY 06/22/19 04/24/20 History RX: calcitrioL [Rocaltrol] 0.25 mcg PO SANTOS 09/17/19 04/24/20 History RX: Omeprazole [PriLOSEC] 20 mg PO AC-BRKFST 09/25/19 04/24/20 History RX: Sodium Bicarbonate 650 mg PO BID 03/22/20 04/24/20 History RX: Clopidogrel [Plavix] 75 mg PO HS 04/18/20 04/24/20 History RX: Albuterol Inhaler [Ventolin 1 puff INHALATION Q6HR PRN #1 inh 04/21/20 04/24/20 Rx Hfa Inhaler] RX: Amoxic-Pot Clav 875-125Mg 1 each PO Q12HR 7 Days #14 tab 04/21/20 04/24/20 Rx [Augmentin 875-125] RX: Furosemide [Lasix] 40 mg PO BID@0900,1600 #60 tab 04/21/20 04/24/20 Rx RX: Isosorbide Mononitrate ER 60 mg PO BID #60 tab.er.24h 04/21/20 04/24/20 Rx [Imdur] RX: Metoprolol Tartrate [Lopressor] 25 mg PO TID #90 tab 04/21/20 04/24/20 Rx RX: Nitroglycerin Sl Tabs 0.4 mg SUBLINGUAL Q5M PRN #20 tab 04/21/20 04/24/20 Rx [Nitrostat] RX: Ranolazine [Ranexa] 500 mg PO Q12HR #60 tab.er.12h 04/21/20 04/24/20 Rx Allergies Allergy/AdvReac Type Severity Reaction Status Date / Time Iodinated Contrast Media Allergy CAN'T Verified 04/24/20 09:13 TAKE, RENAL DISEASE Iodine and Iodide Containing Allergy CAN'T Verified 04/24/20 09:13 Produc TAKE, RENAL DISEASE Physical Exam Vitals: Vital Signs Temp Pulse Resp BP Pulse Ox 04/24/20 07:00 58 L 15 151/64 95 04/24/20 06:00 60 14 170/73 94 L 04/24/20 05:00 66 15 154/72 95 04/24/20 04:00 97.9 F 62 13 158/76 93 L 04/24/20 03:09 98.8 F 73 20 146/62 96 04/24/20 02:00 98.7 F 63 20 143/72 96 04/24/20 01:00 97.6 F 66 20 174/77 95 04/24/20 00:00 97.8 F 72 22 154/68 94 L 04/23/20 23:05 78 22 164/70 97 04/23/20 22:50 97.5 F L 81 35 H 163/93 94 L Intake and Output 04/23/20 04/24/20 04/24/20 22:59 06:59 14:59 Output Total 450 150 Balance -450 -150 Output: Urine 450 150 Uretheral (Toth) 300 Other: Voiding Method Indwelling Catheter Weight 95.799 kg 95.799 kg GENERAL: The patient is alert and oriented x3, Well developed, well nourished. HEENT: Pupils are round and equally reacting to light. EOMI. No scleral icterus. No conjunctival pallor. Normocephalic, atraumatic. No pharyngeal erythema. No thyromegaly. CARDIOVASCULAR: S1 and S2 present. No murmurs, rubs, or gallops. -PULMONARY: Chest is clear to auscultation, bilateral crepitation and scattered wheezing, decreased air entry on both sides ABDOMEN: Soft, nontender, nondistended, normoactive bowel sounds. No palpable organomegaly. MUSCULOSKELETAL: No joint swelling or deformity. -EXTREMITIES: No cyanosis, clubbing,. Bilateral patent leg edema. NEUROLOGICAL: Gross neurological examination did not reveal any focal deficits. SKIN: No rashes. No petechiae Results CBC & Chem 7: 04/25/20 04:05 04/25/20 04:05 Labs: Abnormal Lab Results - Last 24 Hours (Table) 04/23/20 04/23/20 04/23/20 Range/Units 23:00 23:00 23:00 WBC 16.4 H (3.8-10.6) k/uL RBC 3.16 L (4.30-5.90) m/uL Hgb 9.5 L D (13.0-17.5) gm/dL Hct 31.9 L (39.0-53.0) % MCV 101.0 H (80.0-100.0) fL MCHC 29.8 L (31.0-37.0) g/dL Plt Count 459 H (150-450) k/uL Neutrophils # 14.5 H (1.3-7.7) k/uL Lymphocytes # 0.8 L (1.0-4.8) k/uL Sodium 132 L (137-145) mmol/L Chloride 97 L (98-107) mmol/L BUN 51 H (9-20) mg/dL Creatinine 3.83 H (0.66-1.25) mg/dL Glucose 578 H* (74-99) mg/dL POC Glucose (mg/dL) (75-99) mg/dL AST (17-59) U/L Troponin I 1.370 H* (0.000-0.034) ng/mL Total Protein 6.1 L (6.3-8.2) g/dL Albumin (3.5-5.0) g/dL Urine Protein (Negative) Urine Glucose (UA) (Negative) Urine Blood (Negative) 04/23/20 04/24/20 04/24/20 Range/Units 23:02 00:27 01:35 WBC (3.8-10.6) k/uL RBC (4.30-5.90) m/uL Hgb (13.0-17.5) gm/dL Hct (39.0-53.0) % MCV (80.0-100.0) fL MCHC (31.0-37.0) g/dL Plt Count (150-450) k/uL Neutrophils # (1.3-7.7) k/uL Lymphocytes # (1.0-4.8) k/uL Sodium (137-145) mmol/L Chloride (98-107) mmol/L BUN (9-20) mg/dL Creatinine (0.66-1.25) mg/dL Glucose (74-99) mg/dL POC Glucose (mg/dL) 529 H 539 H 541 H (75-99) mg/dL AST (17-59) U/L Troponin I (0.000-0.034) ng/mL Total Protein (6.3-8.2) g/dL Albumin (3.5-5.0) g/dL Urine Protein (Negative) Urine Glucose (UA) (Negative) Urine Blood (Negative) 04/24/20 04/24/20 04/24/20 Range/Units 01:37 02:55 03:26 WBC (3.8-10.6) k/uL RBC (4.30-5.90) m/uL Hgb (13.0-17.5) gm/dL Hct (39.0-53.0) % MCV (80.0-100.0) fL MCHC (31.0-37.0) g/dL Plt Count (150-450) k/uL Neutrophils # (1.3-7.7) k/uL Lymphocytes # (1.0-4.8) k/uL Sodium (137-145) mmol/L Chloride (98-107) mmol/L BUN (9-20) mg/dL Creatinine (0.66-1.25) mg/dL Glucose (74-99) mg/dL POC Glucose (mg/dL) 475 H (75-99) mg/dL AST (17-59) U/L Troponin I 1.230 H* (0.000-0.034) ng/mL Total Protein (6.3-8.2) g/dL Albumin (3.5-5.0) g/dL Urine Protein 3+ H (Negative) Urine Glucose (UA) 4+ H (Negative) Urine Blood Trace H (Negative) 04/24/20 04/24/20 04/24/20 Range/Units 06:46 07:00 07:00 WBC 11.0 H (3.8-10.6) k/uL RBC 2.90 L (4.30-5.90) m/uL Hgb 9.0 L (13.0-17.5) gm/dL Hct 28.7 L (39.0-53.0) % MCV (80.0-100.0) fL MCHC (31.0-37.0) g/dL Plt Count (150-450) k/uL Neutrophils # 9.4 H (1.3-7.7) k/uL Lymphocytes # 0.7 L (1.0-4.8) k/uL Sodium 135 L (137-145) mmol/L Chloride (98-107) mmol/L BUN 54 H (9-20) mg/dL Creatinine 3.73 H (0.66-1.25) mg/dL Glucose 332 H (74-99) mg/dL POC Glucose (mg/dL) 394 H (75-99) mg/dL AST 13 L (17-59) U/L Troponin I (0.000-0.034) ng/mL Total Protein 5.5 L (6.3-8.2) g/dL Albumin 3.0 L (3.5-5.0) g/dL Urine Protein (Negative) Urine Glucose (UA) (Negative) Urine Blood (Negative) Thrombosis Risk Factor Assmnt - Choose All That Apply Any of the Below Risk Factors Present?: Yes Each Factor Represents 1 point: Heart failure (<1month), Medical pt on bed rest, Obesity (BMI >25), Serious lung disease incl. pneumonia (< 1month), Swollen legs (current) Other Risk Factors: Yes Each Risk Factor Represents 2 Points: Age 61-74 years, Patient confined to bed Thrombosis Risk Factor Assessment Total Risk Factor Score: 9 Thrombosis Risk Factor Assessment Level: High Risk Assessment and Plan Assessment: Acute hypoxic respiratory failure secondary to CHF acute on chronic diastolic CHF exacerbation Recent non-STEMI, elevated troponin trending down compared to last time Acute on chronic kidney disease secondary to cardiorenal syndrome. Patient with chronic kidney disease stage IV Possible right lower lobe pneumonia versus atelectasis, with right pleural effusion Type 2 diabetes mellitus Hypertension Hyperlipidemia History of coronary artery disease PVD status post stent of the Rt SFA by Dr. Boyd GERD GI bleed History of iron deficiency anemia needing multiple iron transfusion and through the port, he follows up with Dr. Singletary Nicotine dependence Plan: This is a pleasant 70 years old male who presents with acute respiratory failure, acute CHF, acute kidney injury. Continue with oxygen, and BiPAP as needed, continue with Lasix, cardiology, pulmonary and nephrology consults orthopedic called to follow the recommendation. Patient might need cardiac cath per cardiology recommendation, also patient might need hemodialysis per nephrology recommendations. Continue with antibiotic. Continue with aspirin and Plavix. Nitroglycerin. Labs and medication were reviewed.. Continue same treatment. Continue with symptomatic treatment. Resume home medication. Monitor lytes and vitals. DVT and GI prophylaxis. Further recommendations of the clinical course of the patient DVT prophylaxis: Subcutaneous heparin GI Prophylaxis: Pepcid Prognosis is guarded
--- NOTE | 2020-04-25 21:07 | P.PN ---
Subjective This is a pleasant 70 years old male with past medical history of diabetes mellitus, hyperlipidemia, hypertension, GI bleed, chronic kidney disease stage IV, iron deficiency anemia and he follows with Dr. Singletary and receiving multiple iron transfusion through his port and the right upper chest, chronic low back pain with bilateral sciatica, vertigo, coronary artery disease . He was recently treated this hospital from 04/18-04/21 for heart attack, at that time he had None STEMI, decided to be treated medically as cardiac cath will put him at risk of hemodialysis, he had chronic kidney disease stage IV, acute diastolic CHF and possible right lower lobe pneumonia and pleural effusion decided to be treated medically and improved significantly with Augmentin and Lasix. Sugar was more than 400 at that time and he did not want to wait to control his sugar and he just left. 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 Patient Is Hemodynamically Stable and He Is Going to Be Transferred to the General Medical Floor Today. His sugar still having problems due to the tapering prednisone effect and his insulin Levemir was increased to 30 units daily at 20 units at bedtime Hydralazine was increased to 100 mg 3 times daily. Objective - Vital Signs Vital signs: Vital Signs Temp 96.4 F L 04/25/20 13:15 Pulse 72 04/25/20 16:00 Resp 17 04/25/20 12:00 BP 149/64 04/25/20 16:00 Pulse Ox 96 04/25/20 16:00 Intake & Output 04/24/20 04/25/20 04/25/20 18:59 06:59 18:59 Intake Total 300 Output Total 8723 1270 945 Balance -2405 -1270 -945 Weight 91.6 kg Intake: Oral 300 Output: Urine 1405 1270 945 Other 1300 Other: Voiding Method Indwelling Catheter Indwelling Catheter Indwelling Catheter - Exam GENERAL: The patient is alert and oriented x3, Well developed, well nourished. HEENT: Pupils are round and equally reacting to light. EOMI. No scleral icterus. No conjunctival pallor. Normocephalic, atraumatic. No pharyngeal erythema. No thyromegaly. CARDIOVASCULAR: S1 and S2 present. No murmurs, rubs, or gallops. -PULMONARY: Chest is clear to auscultation, bilateral crepitation and scattered wheezing, decreased air entry on both sides ABDOMEN: Soft, nontender, nondistended, normoactive bowel sounds. No palpable organomegaly. MUSCULOSKELETAL: No joint swelling or deformity. -EXTREMITIES: No cyanosis, clubbing,. Bilateral patent leg edema. NEUROLOGICAL: Gross neurological examination did not reveal any focal deficits. SKIN: No rashes. No petechiae - Labs CBC & Chem 7: 04/25/20 04:05 04/25/20 04:05 Labs: Abnormal Lab Results - Last 24 Hours (Table) 04/24/20 04/24/20 04/25/20 Range/Units 20:58 22:43 04:05 WBC 13.8 H (3.8-10.6) k/uL RBC 2.71 L (4.30-5.90) m/uL Hgb 8.2 L (13.0-17.5) gm/dL Hct 26.9 L (39.0-53.0) % MCHC 30.6 L (31.0-37.0) g/dL Neutrophils # 12.4 H (1.3-7.7) k/uL Lymphocytes # 0.7 L (1.0-4.8) k/uL Sodium (137-145) mmol/L BUN (9-20) mg/dL Creatinine (0.66-1.25) mg/dL Glucose (74-99) mg/dL POC Glucose (mg/dL) 424 H 454 H (75-99) mg/dL Troponin I (0.000-0.034) ng/mL 04/25/20 04/25/20 04/25/20 Range/Units 04:05 06:34 11:52 WBC (3.8-10.6) k/uL RBC (4.30-5.90) m/uL Hgb (13.0-17.5) gm/dL Hct (39.0-53.0) % MCHC (31.0-37.0) g/dL Neutrophils # (1.3-7.7) k/uL Lymphocytes # (1.0-4.8) k/uL Sodium 135 L (137-145) mmol/L BUN 60 H (9-20) mg/dL Creatinine 3.90 H (0.66-1.25) mg/dL Glucose 265 H (74-99) mg/dL POC Glucose (mg/dL) 296 H 256 H (75-99) mg/dL Troponin I (0.000-0.034) ng/mL 04/25/20 04/25/20 Range/Units 16:04 17:23 WBC (3.8-10.6) k/uL RBC (4.30-5.90) m/uL Hgb (13.0-17.5) gm/dL Hct (39.0-53.0) % MCHC (31.0-37.0) g/dL Neutrophils # (1.3-7.7) k/uL Lymphocytes # (1.0-4.8) k/uL Sodium (137-145) mmol/L BUN (9-20) mg/dL Creatinine (0.66-1.25) mg/dL Glucose (74-99) mg/dL POC Glucose (mg/dL) 330 H (75-99) mg/dL Troponin I 0.683 H* (0.000-0.034) ng/mL Microbiology - Last 24 Hours (Table) 04/24/20 11:00 Gram Stain - Preliminary Pleural Fluid Body Fluid Culture - Preliminary Assessment and Plan Assessment: Acute hypoxic respiratory failure secondary to CHF acute on chronic diastolic CHF exacerbation Recent non-STEMI, elevated troponin trending down compared to last time Acute on chronic kidney disease secondary to cardiorenal syndrome. Patient with chronic kidney disease stage IV Possible right lower lobe pneumonia versus atelectasis, with right pleural effusion Type 2 diabetes mellitus Hypertension Hyperlipidemia History of coronary artery disease PVD status post stent of the Rt SFA by Dr. Boyd GERD GI bleed History of iron deficiency anemia needing multiple iron transfusion and through the port, he follows up with Dr. Singletary Nicotine dependence Plan: This is a pleasant 70 years old male who presents with acute respiratory failure, acute CHF, acute kidney injury. Continue with oxygen, and BiPAP as needed, continue with Lasix, cardiology, pulmonary and nephrology consults orthopedic called to follow the recommendation. Patient might need cardiac cath per cardiology recommendation, also patient might need hemodialysis per nephrology recommendations. Continue with antibiotic. Continue with aspirin and Plavix. Nitroglycerin. Labs and medication were reviewed.. Continue same treatment. Continue with symptomatic treatment. Resume home medication. Monitor lytes and vitals. DVT and GI prophylaxis. Further recommendations of the clinical course of the patient DVT prophylaxis: Subcutaneous heparin GI Prophylaxis: Pepcid Prognosis is guarded
[2020-04-25] MEDS: CLOPIDOGREL 75 MG TAB PO SCH (21:33)
[2020-04-25] MEDS: ASPIRIN 81 MG PO SCH (21:33)
[2020-04-25] MEDS: ATORVASTATIN 20 MG TAB PO SCH (21:35)
[2020-04-25] MEDS: MELATONIN 5 MG TABLET PO SCH (21:35)
[2020-04-26 06:32] LABS: Glucose,Whole Blood 105 mg/dL (75-99)
[2020-04-26] MEDS: INSULIN DETEMIR (LEVEMIR) 100 UNIT/ML SYR SQ SCH ×2 (06:56→21:15)
[2020-04-26] MEDS: INSULIN ASPART (NovoLOG) 100 UNIT/ML VIAL SQ SCH ×4 (06:56→21:16)
[2020-04-26] MEDS: predniSONE 10 MG TAB PO SCH (07:01)
[2020-04-26] MEDS: hydrALAZINE HCL 50 MG TAB PO SCH ×3 (07:02→21:14)
[2020-04-26] MEDS: amLODIPine 10 MG TAB PO SCH (07:02)
[2020-04-26] MEDS: SODIUM BICARBONATE TAB 650 MG TAB PO SCH ×2 (07:02→21:15)
[2020-04-26] MEDS: CYANOCOBALAMIN 500 MCG TAB PO SCH (07:03)
[2020-04-26] MEDS: RANOLAZINE 500 MG TAB.ER.12H PO SCH ×2 (07:03→21:14)
[2020-04-26] MEDS: ISOSORBIDE MONONITRATE ER 60 MG TAB.ER.24H PO SCH ×2 (07:03→21:14)
[2020-04-26] MEDS: GABAPENTIN 300 MG CAP PO SCH (07:03)
[2020-04-26] MEDS: FERROUS SULFATE 325 MG TAB PO SCH ×3 (07:03→21:15)
[2020-04-26] MEDS: PANTOPRAZOLE 40 MG TABLET PO SCH (07:04)
[2020-04-26] MEDS: METOPROLOL TARTRATE 25 MG TAB PO SCH ×2 (07:04→21:15)
[2020-04-26] MEDS: HEPARIN SODIUM,PORCINE 5,000 UNIT/ML 1 ML VIAL SQ SCH ×3 (07:04→23:22)
[2020-04-26] MEDS: FUROSEMIDE 10 MG/ML 10 ML VIAL IV SCH ×2 (07:04→21:16)
[2020-04-26 07:13] LABS: Anisocytosis Slight; Basophils % (A) 0 %; Eosinophils % (A) 0 %; HCT 28.8 % (39.0-53.0); Hypochromasia Slight; Lymphocytes # (A) 0.9 k/uL (1.0-4.8); Lymphocytes % (A) 7 %; MCH 30.3 pg (25.0-35.0); MCHC 31.1 g/dL (31.0-37.0); MCV 97.5 fL (80.0-100.0); Macrocytosis Slight; Mean Platelet Volume 8.9; Monocytes # (A) 0.5 k/uL (0-1.0); Monocytes % (A) 4 %; Neutrophils % (A) 87 %; Platelet Count 390 k/uL (150-450); RBC 2.95 m/uL (4.30-5.90); RDW 16.1 % (11.5-15.5); WBC 12.7 k/uL (3.8-10.6)
[2020-04-26 07:37] LABS: Calcium 8.9 mg/dL (8.4-10.2); Potassium 4.1 mmol/L (3.5-5.1)
[2020-04-26] MEDS ORDERED: ASPIRIN 325 MG TAB PO ONE (09:26)
[2020-04-26] MEDS ORDERED: IV FLUID CONTINUATION 1,000 ML IV ONE (09:27)
[2020-04-26] MEDS ORDERED: fentaNYL (PF) 50 MCG/ML 2 ML AMP IV ONE (09:41)
[2020-04-26] MEDS ORDERED: MIDAZOLAM 2 MG/2 ML VIAL IV ONE (09:41)
[2020-04-26] MEDS ORDERED: LIDOCAINE 1% INJ 10MG/ML (20 ML MDV) SQ ONE (09:44)
[2020-04-26] MEDS ORDERED: HEPARIN SODIUM 1,000 UN/ML (10ML VL) IV ONE (09:47)
[2020-04-26] MEDS: VERAPAMIL SYRINGE (5 MG/10 ML) INTRAARTER ONE (09:47)
[2020-04-26] MEDS ORDERED: IOPAMIDOL-370 125ML BTL INJ ONE (10:15)
[2020-04-26] MEDS ORDERED: RX INFO: IV CONTRAST WAS GIVEN 1 EACH MISC MISCELLANE PRN (10:16)
--- NOTE | 2020-04-26 10:25 | P.CARDCATH ---
Date of Procedure: 04/26/20 Preoperative Diagnosis: Non-STEMI with the ongoing angina Postoperative Diagnosis: Diffuse coronary artery disease with critical lesion involving the ostium and proximal portion of the PDA branch of the right coronary artery Procedure(s) Performed: Left heart catheterization without left ventriculography Description of Procedure: HISTORY: This is a 70-year-old gentleman was admitted to the hospital with chest pain and shortness of breath and evidence of CHF. The patient was recently in the hospital with evidence of non-STEMI, but signed out AGAINST MEDICAL ADVICE. Patient was evaluated by Dr. Garcia and advised him to have a cardiac catheterization. Patient has severe renal failure with creatinine of 3.7. Patient was seen and evaluated by nephrology and cleared for the procedure. Patient fully understood that he may go on dialysis because of the effects of the dye CONSENT:I have discussed the risks, benefits and alternative therapies for the above-mentioned procedure and for both sedation/analgesia as well as necessary blood product administration, if indicated, as they pertain to this patient. The patient has indicated understanding and acceptance of the risks and procedures discussed. PROCEDURE: Patient was brought to the lab in a fasting state. Patient was given some IV sedation. The right wrist is infiltrated with lidocaine and right radial artery was entered using Seldinger technique. A 6-Slovenian catheter was left in place and selective coronary arteriography was performed. Patient tolerated the procedure well. TR band was applied for hemostasis. No immediate complications were noted and patient was transferred to [facility] in a stable condition Conscious Sedation: Versed 0.5mg Fentanyl 25 g Duration 22minutes HEMODYNAMICS: Aortic pressure is about 130/70. Left ventricular end-diastolic pressure was not obtained SELECTIVE CORONARY ARTERIOGRAPHY: LEFT MAIN: Long and free of any significant occlusive disease but calcified THE LEFT ANTERIOR DESCENDING CORONARY ARTERY:. There is a fair caliber vessel giving rise good-sized diagonal branch. The LAD system is calcified with mild diffuse disease without any critical lesions THE LEFT CIRCUMFLEX AND IS CORONARY ARTERY: This is a moderate caliber vessel giving rise good-sized OM branch is coronary artery has mild diffuse plaque without any significant focal lesions THE RIGHT CORONARY ARTERY:. This is a good caliber vessel with areas of stenosis involving mid and distal portions with about 40- 50% stenosis. There is a branch which was like to PDA branch which has about 80-90% proximal and ostial stenosis LEFT VENTRICULOGRAPHY: Not performed FINAL IMPRESSION:. Diffuse coronary artery disease with diffuse calcification and multiple 30-50% lesions. There is critical lesion involving the ostium and proximal portion of the PDA PLAN:. Continue maximal medical therapy. Films to be reviewed by Dr. Boyd of possible stent placement of the PDA. This probably will be done after hydration the kidneys in the next 24-48 hours PROGNOSIS: Fair
[2020-04-26] MEDS ORDERED: SODIUM CHLORIDE 0.9% 1,000 ML IV SCH (10:30)
--- NOTE | 2020-04-26 11:26 | P.PN ---
Subjective Patient is seen in follow-up for acute kidney injury on chronic kidney disease. Currently maintained on IV Lasix. Nonoliguric. Weight trending down. No chest pain or shortness of breath. Oral intake fair. Vital signs are stable. General: The patient appeared well nourished and normally developed. HEENT: Head exam is unremarkable. Neck is without jugular venous distension. LUNGS: Breath sounds decreased. HEART: Rate and Rhythm are regular. ABDOMEN: Soft, nontender. EXTREMITITES: 1+ edema. Objective - Vital Signs Vital signs: Vital Signs Temp 97.5 F L 04/26/20 08:00 Pulse 64 04/26/20 11:02 Resp 16 04/26/20 11:02 BP 133/66 04/26/20 11:02 Pulse Ox 96 04/26/20 11:02 Intake & Output 04/25/20 04/26/20 04/26/20 18:59 06:59 18:59 Intake Total 100 Output Total 1270 1400 800 Balance -1270 -1400 -700 Weight 86.9 kg Intake: IV 100 Oral 0 Output: Urine 1270 1400 800 Other: Voiding Method Indwelling Catheter Indwelling Catheter Indwelling Catheter - Labs CBC & Chem 7: 04/26/20 06:49 04/26/20 06:49 Labs: Abnormal Lab Results - Last 24 Hours (Table) 04/25/20 04/25/20 04/25/20 Range/Units 11:52 16:04 17:23 WBC (3.8-10.6) k/uL RBC (4.30-5.90) m/uL Hgb (13.0-17.5) gm/dL Hct (39.0-53.0) % RDW (11.5-15.5) % Neutrophils # (1.3-7.7) k/uL Lymphocytes # (1.0-4.8) k/uL Sodium (137-145) mmol/L BUN (9-20) mg/dL Creatinine (0.66-1.25) mg/dL POC Glucose (mg/dL) 256 H 330 H (75-99) mg/dL Troponin I 0.683 H* (0.000-0.034) ng/mL 04/25/20 04/26/20 04/26/20 Range/Units 20:11 06:30 06:49 WBC 12.7 H (3.8-10.6) k/uL RBC 2.95 L (4.30-5.90) m/uL Hgb 9.0 L (13.0-17.5) gm/dL Hct 28.8 L (39.0-53.0) % RDW 16.1 H (11.5-15.5) % Neutrophils # 11.0 H (1.3-7.7) k/uL Lymphocytes # 0.9 L (1.0-4.8) k/uL Sodium (137-145) mmol/L BUN (9-20) mg/dL Creatinine (0.66-1.25) mg/dL POC Glucose (mg/dL) 420 H 105 H (75-99) mg/dL Troponin I (0.000-0.034) ng/mL 04/26/20 Range/Units 06:49 WBC (3.8-10.6) k/uL RBC (4.30-5.90) m/uL Hgb (13.0-17.5) gm/dL Hct (39.0-53.0) % RDW (11.5-15.5) % Neutrophils # (1.3-7.7) k/uL Lymphocytes # (1.0-4.8) k/uL Sodium 136 L (137-145) mmol/L BUN 65 H (9-20) mg/dL Creatinine 3.76 H (0.66-1.25) mg/dL POC Glucose (mg/dL) (75-99) mg/dL Troponin I (0.000-0.034) ng/mL Microbiology - Last 24 Hours (Table) 04/24/20 11:00 Gram Stain - Preliminary Pleural Fluid Body Fluid Culture - Preliminary Assessment and Plan Plan: Assessment: 1. Acute kidney injury secondary to ATN secondary to cardiorenal syndrome. Renal function fairly stable. 2. Chronic kidney disease stage IV secondary to diabetic kidney disease and IgA nephropathy with severe interstitial fibrosis and atrophy. Baseline creatinine 3-3.3. 3. Volume overload. Improving with diuresis. 4. Acute on chronic diastolic CHF. 5. Right-sided pleural effusion status post thoracentesis with 1.3 L drained. 6. Hypertension with chronic kidney disease. Controlled. 7. Chronic kidney disease mineral bone disease maintained on calcitriol. 8. Diabetes mellitus. 9. Anemia of chronic kidney disease. Plan: Maintain IV Lasix 60 mg twice daily. Add Aranesp. Decrease gabapentin to 200 mg twice daily. Continue to monitor renal function and urine output. Patient is interested in peritoneal dialysis. Will plan for PD catheter placement upon discharge.
[2020-04-26 11:34] VITALS: BMI 29.9
[2020-04-26] MEDS ORDERED: SODIUM CHLORIDE 0.9% 1,000 ML in EMPTY BAG 1 BAG IV ONE (11:38)
[2020-04-26] MEDS ORDERED: ALPRAZolam 0.25 MG TAB PO PRN (11:38)
[2020-04-26] MEDS ORDERED: ALPRAZolam 0.5 MG TAB PO PRN (11:38)
[2020-04-26] MEDS ORDERED: NITROGLYCERIN SL TABS 0.4 MG TAB SUBLINGUAL PRN (11:38)
[2020-04-26 12:17] LABS: Glucose,Whole Blood 196 mg/dL (75-99)
[2020-04-26] MEDS: glipiZIDE 5 MG TAB PO SCH (13:30)
--- NOTE | 2020-04-26 14:24 | P.PN ---
Subjective Progress Note Date: 04/26/20 Principal diagnosis: Acute on chronic hypoxic respiratory failure secondary to diastolic congestive heart failure and mitral valve disease This is a 70-year-old white male familiar to my service, patient was recently in the hospital with what seemed to be congestive heart failure secondary to mitral valve disease. Patient also had acute on chronic kidney disease. Kelli gutierrez has chronic kidney disease stage IV secondary to diabetic nephropathy and underlying IgA nephropathy. He normally sees nephrology on outpatient basis. Patient was in the hospital last week, however on 04/22/20, patient left the hospital AGAINST MEDICAL ADVICE. We saw him last on 04/21/20, and we felt that the patient was responding well to diuretics, and bronchodilators, and he was also on antibiotics in the form of Augmentin. As well as heparin drip. He had at the time a good sized right-sided pleural effusion however the patient was improving with diuretics, and we were certain that the effusion is cardiac in nature, did not recommend thoracentesis. His other medical problems on his last admission included non-ST elevation myocardial infarction, acute exacerbation of COPD, chronic kidney disease stage IV, insulin-dependent diabetes, symptomatic anemia requiring multiple transfusions on a regular basis/outpatient basis he also had hypertension peripheral vessel occlusive disease and abnormal echocardiogram questioning density which may represent part of the chordae or vegetations and JENNIFER was recommended but never done. This was recommended mostly to evaluate his mitral valve disease. His ejection fraction was basically normal. And he was also noted to have inferior hypokinesis. At any rate when the patient presented to the ER yesterday, he was extremely short of breath, he was placed initially on BiPAP, and I was notified about this patient early this morning. I recommended Lasix 40 mg IV push, patient responded well to diuretics, and he was transitioned from BiPAP to a nasal cannula presently at 6 L high flow nasal cannula and seems to be comfortable. I reviewed his chest x- ray ultrasound of the chest, and I performed a right sided thoracentesis, 1300 mL of fluid was drained from the right pleural space. The fluid was clear, and it was sent for different diagnostic studies, suspect the fluid is transudative unless proven otherwise Patient was reevaluated today on 04/25/20 remains in the ICU, remains on Lasix at 40 mg IV push every 12 hours, remains on oxygen at 4 L/m, patient is feeling much better. Continues to be in negative balance. Patient had a negative balance of 3.6 L since admission yesterday he is feeling better breathing easier. No chest x-ray was done. Patient also underwent a right sided thoracentesis yesterday, and I was able to drain over 1300 mL of transudative pleural effusion. Low LDH and low protein noted on the fluid today. So this is clearly a fluid of congestive heart failure not a fluid of infection or maligna ncy. Labs today were reviewed WBC count is 13.8 hemoglobin is 8.2 electrolytes are normal his BUN is 60 creatinine is 3.90, slightly worse compared to yesterday, it was 3.83 on admission. Patient is being followed by nephrology. And today I will go ahead and cut down on the Lasix dose. We will make Lasix 60 mg IV push every 12 hours instead of 80 mg IV push every 12 hours. We will also arrange for the patient to be transferred to a monitor bed on selective. On 04/26/2020 patient seen in follow-up on selective care unit, he has just returned from a cardiac catheterization which showed diffuse coronary artery disease with chronically involving the ostium and proximal portion of the PDA b ranch of the right coronary artery. PCI and stenting of the PDA is planned for tomorrow by Dr. Boyd. Currently patient is resting comfortably in bed, [place] any chest pain, denies any shortness of breath, room air pulse ox 96%, hemodynamically stable, breathing is nonlabored. Nephrology is following, today's labs have been reviewed, BUN is 65, and creatinine slightly improved, down to 3.76. he continues on IV Lasix 60 mg every 12 hours. Objective - Vital Signs Vital signs: Vital Signs Temp 97.5 F L 04/26/20 08:00 Pulse 64 04/26/20 11:02 Resp 16 04/26/20 11:55 BP 133/66 04/26/20 11:02 Pulse Ox 96 04/26/20 11:02 Intake & Output 04/25/20 04/26/20 04/26/20 18:59 06:59 18:59 Intake Total 100 Output Total 1270 1400 800 Balance -1270 -1400 -700 Weight 86.9 kg 86.9 kg Intake: IV 100 Oral 0 Output: Urine 1270 1400 800 Other: Voiding Method Indwelling Catheter Indwelling Catheter Indwelling Catheter - Exam GENERAL EXAM: Alert, very pleasant, 70-year-old white male , with pulse ox of 96%, comfortable in no apparent distress. HEAD: Normocephalic/atraumatic. EYES: Normal reaction of pupils, equal size. Conjunctiva pink, sclera white. NOSE: Clear with pink turbinates. THROAT: No erythema or exudates. NECK: No masses, no JVD, no thyroid enlargement, no adenopathy. CHEST: No chest wall deformity. Symmetrical expansion. LUNGS: Equal air entry with no crackles, wheeze, rhonchi or dullness. CVS: Regular rate and rhythm, normal S1 and S2, no gallops, no murmurs, no rubs ABDOMEN: Soft, nontender. No hepatosplenomegaly, normal bowel sounds, no guarding or rigidity. EXTREMITIES: No clubbing, no edema, no cyanosis, 2+ pulses and upper and lower extremities. MUSCULOSKELETAL: Muscle strength and tone normal. SPINE: No scoliosis or deformity SKIN: No rashes CENTRAL NERVOUS SYSTEM: Alert and oriented -3. No focal deficits, tone is normal in all 4 extremities. PSYCHIATRIC: Alert and oriented -3. Appropriate affect. Intact judgment and insight. - Labs CBC & Chem 7: 04/26/20 06:49 04/26/20 06:49 Labs: Abnormal Lab Results - Last 24 Hours (Table) 04/25/20 04/25/20 04/25/20 Range/Units 16:04 17:23 20:11 WBC (3.8-10.6) k/uL RBC (4.30-5.90) m/uL Hgb (13.0-17.5) gm/dL Hct (39.0-53.0) % RDW (11.5-15.5) % Neutrophils # (1.3-7.7) k/uL Lymphocytes # (1.0-4.8) k/uL Sodium (137-145) mmol/L BUN (9-20) mg/dL Creatinine (0.66-1.25) mg/dL POC Glucose (mg/dL) 330 H 420 H (75-99) mg/dL Troponin I 0.683 H* (0.000-0.034) ng/mL 04/26/20 04/26/20 04/26/20 Range/Units 06:30 06:49 06:49 WBC 12.7 H (3.8-10.6) k/uL RBC 2.95 L (4.30-5.90) m/uL Hgb 9.0 L (13.0-17.5) gm/dL Hct 28.8 L (39.0-53.0) % RDW 16.1 H (11.5-15.5) % Neutrophils # 11.0 H (1.3-7.7) k/uL Lymphocytes # 0.9 L (1.0-4.8) k/uL Sodium 136 L (137-145) mmol/L BUN 65 H (9-20) mg/dL Creatinine 3.76 H (0.66-1.25) mg/dL POC Glucose (mg/dL) 105 H (75-99) mg/dL Troponin I (0.000-0.034) ng/mL 04/26/20 Range/Units 11:56 WBC (3.8-10.6) k/uL RBC (4.30-5.90) m/uL Hgb (13.0-17.5) gm/dL Hct (39.0-53.0) % RDW (11.5-15.5) % Neutrophils # (1.3-7.7) k/uL Lymphocytes # (1.0-4.8) k/uL Sodium (137-145) mmol/L BUN (9-20) mg/dL Creatinine (0.66-1.25) mg/dL POC Glucose (mg/dL) 196 H (75-99) mg/dL Troponin I (0.000-0.034) ng/mL Microbiology - Last 24 Hours (Table) 04/24/20 11:00 Gram Stain - Preliminary Pleural Fluid Body Fluid Culture - Preliminary Assessment and Plan Plan: Assessment: Acute on chronic hypoxic respiratory failure secondary to congestive heart failure suspected diastolic dysfunction also suspect mitral valve disease which may require further investigation. Right pleural effusion and left pleural effusion secondary to congestive heart f ailure. Status post right-sided thoracentesis today. Acute non-ST elevation myocardial infarction History of underlying COPD, presently inactive. Chronic kidney disease stage IV, patient is known to have diabetic nephropathy and possibly IgA nephropathy. Insulin-dependent diabetes. Chronic iron deficiency anemia requiring multiple transfusions of viral on outpatient basis. Benign essential hypertension with hypertensive nephropathy. Peripheral vessel occlusive disease and previous intervention for total occlusion of the right sfa and PTCA and stenting of the left SFA Carotid artery disease and previous stenting. Multivessel diffuse coronary artery disease, with critical lesion involving the ostium and proximal PDA branch and RCA Plan: Continue current medical treatment, no worsening dyspnea, lung sounds are stable, cardiac cath report has been noted, PCI stenting in the PDA is planned for tomorrow, continue with diuretics, nephrology is following, no complaints of chest pain, worsening shortness of breath, but sensitive been stable, continue to follow. Monitor renal function, electrolytes I performed a history & physical examination of the patient and discussed their management with my nurse practitioner, Arelis Mohamud. I reviewed the nurse practitioner's note and agree with the documented findings and plan of care. Lung sounds are positive for diminished breath sounds. The findings and the impression was discussed with the patient. I attest to the documentation by the nurse practitioner. Time with Patient: Less than 30
[2020-04-26 17:09] LABS: Glucose,Whole Blood 413 mg/dL (75-99)
--- NOTE | 2020-04-26 19:39 | P.PN ---
Subjective This is a pleasant 70 years old male with past medical history of diabetes mellitus, hyperlipidemia, hypertension, GI bleed, chronic kidney disease stage IV, iron deficiency anemia and he follows with Dr. Singletary and receiving multiple iron transfusion through his port and the right upper chest, chronic low back pain with bilateral sciatica, vertigo, coronary artery disease . He was recently treated this hospital from 04/18-04/21 for heart attack, at that time he had None STEMI, decided to be treated medically as cardiac cath will put him at risk of hemodialysis, he had chronic kidney disease stage IV, acute diastolic CHF and possible right lower lobe pneumonia and pleural effusion decided to be treated medically and improved significantly with Augmentin and Lasix. Sugar was more than 400 at that time and he did not want to wait to control his sugar and he just left. This time he presents with acute dyspnea REQUIRING BiPAP in the emergency room 04/25/20 Patient is breathing more quietly today, finger buff sewer In for Cardiac Cath, I Discussed the Case with the Patient and Looks He Understands That Cardiac Cath May Put Him Most Likely on the Risk of Hemodialysis per Consultants Recommendation from Cardiology and Nephrology, He Understands That and He Agrees to Proceed with Cardiac Cath Which Looks Reasonable. Patient Is Hemodynamically Stable and He Is Going to Be Transferred to the General Medical Floor Today. His sugar still having problems due to the tapering prednisone effect and his insulin Levemir was increased to 30 units daily at 20 units at bedtime Hydralazine was increased to 100 mg 3 times daily. 04/26/20 Patient underwent cardiac cath today, Diffuse coronary artery disease with diffuse calcification and multiple 30-50% lesions. There is critical lesion involving the ostium and proximal portion of the PDA. We will follow up with cardiology for possible stent placement of the PDA with recommendation HYDRATION OF THE KIDNEY IN 24-48 HOURS. Cardiology recommendation however patient is fluid overloaded and he is currently on Lasix 60 mg twice a day per nephrology recommendation Continue with Levemir 30 units in the morning and 20 units at night, expected sugar to keep trending down as prednisone is tapered down 04/27/20 Patient weakness is little improvement today, No lightheadedness or dizziness. Sodium is stable at 128, oral Lasix 20 mg and today divided nephrology team. Patient remains on fluid restriction Nephrology on the case. Keep monitoring sodium level Possible discharge in 24-48 hours if sodium improves and nephrology cleared the patient Objective - Vital Signs Vital signs: Vital Signs Temp 96.3 F L 04/26/20 17:36 Pulse 70 04/26/20 17:36 Resp 16 04/26/20 17:36 BP 157/68 04/26/20 17:36 Pulse Ox 94 L 04/26/20 17:36 Intake & Output 04/25/20 04/26/20 04/26/20 18:59 06:59 18:59 Intake Total 200 Output Total 1270 1400 800 Balance -1270 -1400 -600 Weight 86.9 kg 86.9 kg Intake: IV 100 Oral 100 Output: Urine 1270 1400 800 Other: Voiding Method Indwelling Catheter Indwelling Catheter Indwelling Catheter - Exam GENERAL: The patient is alert and oriented x3, Well developed, well nourished. HEENT: Pupils are round and equally reacting to light. EOMI. No scleral icterus. No conjunctival pallor. Normocephalic, atraumatic. No pharyngeal erythema. No thyromegaly. CARDIOVASCULAR: S1 and S2 present. No murmurs, rubs, or gallops. -PULMONARY: Chest is clear to auscultation, bilateral crepitation and scattered wheezing, decreased air entry on both sides ABDOMEN: Soft, nontender, nondistended, normoactive bowel sounds. No palpable organomegaly. MUSCULOSKELETAL: No joint swelling or deformity. -EXTREMITIES: No cyanosis, clubbing,. Bilateral patent leg edema. NEUROLOGICAL: Gross neurological examination did not reveal any focal deficits. SKIN: No rashes. No petechiae - Labs CBC & Chem 7: 04/26/20 06:49 04/26/20 06:49 Labs: Abnormal Lab Results - Last 24 Hours (Table) 04/25/20 04/26/20 04/26/20 Range/Units 20:11 06:30 06:49 WBC 12.7 H (3.8-10.6) k/uL RBC 2.95 L (4.30-5.90) m/uL Hgb 9.0 L (13.0-17.5) gm/dL Hct 28.8 L (39.0-53.0) % RDW 16.1 H (11.5-15.5) % Neutrophils # 11.0 H (1.3-7.7) k/uL Lymphocytes # 0.9 L (1.0-4.8) k/uL Sodium (137-145) mmol/L BUN (9-20) mg/dL Creatinine (0.66-1.25) mg/dL POC Glucose (mg/dL) 420 H 105 H (75-99) mg/dL 04/26/20 04/26/20 04/26/20 Range/Units 06:49 11:56 16:45 WBC (3.8-10.6) k/uL RBC (4.30-5.90) m/uL Hgb (13.0-17.5) gm/dL Hct (39.0-53.0) % RDW (11.5-15.5) % Neutrophils # (1.3-7.7) k/uL Lymphocytes # (1.0-4.8) k/uL Sodium 136 L (137-145) mmol/L BUN 65 H (9-20) mg/dL Creatinine 3.76 H (0.66-1.25) mg/dL POC Glucose (mg/dL) 196 H 413 H (75-99) mg/dL Microbiology - Last 24 Hours (Table) 04/24/20 11:00 Gram Stain - Preliminary Pleural Fluid Body Fluid Culture - Preliminary Assessment and Plan Assessment: Acute hypoxic respiratory failure secondary to CHF acute on chronic diastolic CHF exacerbation Recent non-STEMI, elevated troponin trending down compared to last time Acute on chronic kidney disease secondary to cardiorenal syndrome. Patient with chronic kidney disease stage IV Possible right lower lobe pneumonia versus atelectasis, with right pleural effusion Type 2 diabetes mellitus Hypertension Hyperlipidemia History of coronary artery disease PVD status post stent of the Rt SFA by Dr. Boyd GERD GI bleed History of iron deficiency anemia needing multiple iron transfusion and through the port, he follows up with Dr. Singletary Nicotine dependence Plan: This is a pleasant 70 years old male who presents with acute respiratory failure, acute CHF, acute kidney injury. Continue with oxygen, and BiPAP as needed, continue with Lasix, cardiology, pulmonary and nephrology consults orthopedic called to follow the recommendation. Patient might need cardiac cath per cardiology recommendation, also patient might need hemodialysis per nephrology recommendations. Continue with antibiotic. Continue with aspirin and Plavix. Nitroglycerin. Labs and medication were reviewed.. Continue same treatment. Continue with symptomatic treatment. Resume home medication. Monitor lytes and vitals. DVT and GI prophylaxis. Further recommendations of the clinical course of the patient DVT prophylaxis: Subcutaneous heparin GI Prophylaxis: Pepcid Prognosis is guarded
[2020-04-26 20:22] LABS: Glucose,Whole Blood 482 mg/dL (75-99)
[2020-04-26] MEDS: ASPIRIN 81 MG PO SCH (21:13)
[2020-04-26] MEDS: GABAPENTIN 100 MG CAP PO SCH (21:13)
[2020-04-26] MEDS: CLOPIDOGREL 75 MG TAB PO SCH (21:14)
[2020-04-26] MEDS: MELATONIN 5 MG TABLET PO SCH (21:15)
[2020-04-26] MEDS: ATORVASTATIN 20 MG TAB PO SCH (21:15)
[2020-04-27] MEDS: RANOLAZINE 500 MG TAB.ER.12H PO SCH ×2 (04:54→21:59)
[2020-04-27] MEDS: predniSONE 20 MG TAB PO SCH (04:54)
[2020-04-27] MEDS: FERROUS SULFATE 325 MG TAB PO SCH ×3 (04:54→22:01)
[2020-04-27] MEDS: hydrALAZINE HCL 50 MG TAB PO SCH ×3 (04:55→22:01)
[2020-04-27] MEDS: ISOSORBIDE MONONITRATE ER 60 MG TAB.ER.24H PO SCH ×2 (04:56→22:00)
[2020-04-27] MEDS: amLODIPine 10 MG TAB PO SCH (04:56)
[2020-04-27] MEDS: PANTOPRAZOLE 40 MG TABLET PO SCH (04:56)
[2020-04-27] MEDS: CYANOCOBALAMIN 500 MCG TAB PO SCH (04:56)
[2020-04-27] MEDS: METOPROLOL TARTRATE 25 MG TAB PO SCH ×2 (04:57→22:00)
[2020-04-27] MEDS: GABAPENTIN 100 MG CAP PO SCH ×2 (04:57→21:59)
[2020-04-27] MEDS: FUROSEMIDE 10 MG/ML 10 ML VIAL IV SCH (04:57)
[2020-04-27] MEDS: SODIUM BICARBONATE TAB 650 MG TAB PO SCH ×2 (04:57→21:59)
[2020-04-27] MEDS: HEPARIN SODIUM,PORCINE 5,000 UNIT/ML 1 ML VIAL SQ SCH ×3 (04:57→23:10)
[2020-04-27] MEDS ORDERED: ATORVASTATIN 80 MG TAB PO ONE (06:00)
[2020-04-27] MEDS ORDERED: ASPIRIN 325 MG TAB PO ONE (06:00)
[2020-04-27 06:19] LABS: Glucose,Whole Blood 158 mg/dL (75-99)
[2020-04-27] MEDS: INSULIN DETEMIR (LEVEMIR) 100 UNIT/ML SYR SQ SCH ×2 (06:26→22:08)
[2020-04-27] MEDS: INSULIN ASPART (NovoLOG) 100 UNIT/ML VIAL SQ SCH ×5 (06:49→22:05)
[2020-04-27 07:19] LABS: Basophils % (A) 0 %; Eosinophils # (A) 0.1 k/uL (0-0.7); Eosinophils % (A) 0 %; HCT 28.6 % (39.0-53.0); HGB 8.9 gm/dL (13.0-17.5); Hypochromasia Slight; Lymphocytes # (A) 0.6 k/uL (1.0-4.8); Lymphocytes % (A) 4 %; MCH 30.2 pg (25.0-35.0); MCHC 30.9 g/dL (31.0-37.0); MCV 97.5 fL (80.0-100.0); Macrocytosis Slight; Mean Platelet Volume 8.4; Monocytes # (A) 0.5 k/uL (0-1.0); Monocytes % (A) 4 %; Neutrophils # (A) 12.6 k/uL (1.3-7.7); Neutrophils % (A) 91 %; Platelet Count 384 k/uL (150-450); RBC 2.93 m/uL (4.30-5.90); WBC 13.9 k/uL (3.8-10.6)
[2020-04-27] MEDS ORDERED: VERAPAMIL 2.5 MG/ML 2 ML AMP ONE (07:21)
[2020-04-27] MEDS ORDERED: LIDOCAINE 1% INJ 10MG/ML (20 ML MDV) ONE (07:22)
[2020-04-27] MEDS ORDERED: HEPARIN SODIUM 1,000 UN/ML (10ML VL) ONE (07:22)
[2020-04-27 07:51] LABS: Calcium 8.5 mg/dL (8.4-10.2); Magnesium 1.9 mg/dL (1.6-2.3); Potassium 3.8 mmol/L (3.5-5.1)
[2020-04-27] MEDS ORDERED: SODIUM CHLORIDE 0.9% 50 ML BAG ONE (08:00)
[2020-04-27] MEDS ORDERED: BIVALIRUDIN 250 MG VIAL IV ONE (08:00)
[2020-04-27] MEDS ORDERED: MIDAZOLAM 2 MG/2 ML VIAL IVP ONE (08:00)
[2020-04-27] MEDS ORDERED: LIDOCAINE 1% INJ 10MG/ML (20 ML MDV) SQ ONE (08:05)
[2020-04-27] MEDS ORDERED: IV FLUID CONTINUATION 1,000 ML IV ONE (08:05)
[2020-04-27] MEDS ORDERED: VERAPAMIL SYRINGE (5 MG/10 ML) INTRAARTER ONE (08:06)
[2020-04-27] MEDS: HEPARIN SODIUM 1,000 UN/ML (10ML VL) IV ONE ×2 (08:09→08:36)
[2020-04-27] MEDS: NITROGLYCERIN 1000MCG/10ML SYRINGE INTRAARTER ONE ×2 (08:12→08:48)
[2020-04-27] MEDS ORDERED: CLOPIDOGREL 75 MG TAB ONE (08:45)
[2020-04-27] MEDS ORDERED: CLOPIDOGREL 75 MG TAB PO ONE (08:48)
[2020-04-27] MEDS: VERAPAMIL SYRINGE (5 MG/10 ML) INTRAARTER ONE (08:50)
[2020-04-27] MEDS ORDERED: IOPAMIDOL-370 100ML BTL INJ ONE (08:50)
[2020-04-27] MEDS ORDERED: RX INFO: IV CONTRAST WAS GIVEN 1 EACH MISC MISCELLANE PRN (08:58)
[2020-04-27] MEDS ORDERED: MAG HYDROX/AL HYDROX/SIMETH 30 ML CUP PO PRN (08:58)
[2020-04-27] MEDS ORDERED: ATROPINE SULFATE 0.1 MG/ML 10ML SYRINGE IV PRN (08:58)
[2020-04-27] MEDS ORDERED: ZOLPIDEM 5 MG TAB PO PRN (08:58)
[2020-04-27] MEDS ORDERED: NITROGLYCERIN SL TABS 0.4 MG TAB SUBLINGUAL PRN (08:58)
[2020-04-27] MEDS ORDERED: SODIUM CHLORIDE 0.9% 1,000 ML IV SCH ×2 (09:00→12:45)
--- NOTE | 2020-04-27 10:02 | PTCA ---
PERCUTANEOUSTRANS CORORONARY ANGIOGRAPHY DATE OF SERVICE: 04/27/2020. PERFORMING PHYSICIAN: Bobby Stone MD. PROCEDURE PERFORMED: 1. Successful stenting of the ostial PDA branch of the right coronary artery using 2.0 x 15 mm Sergo drug-eluting stent with an excellent angiographic results and reduction of stenosis from 99% to 0%. 2. Left heart catheterization. INDICATION: This is a 70-year-old gentleman who sees Dr. Sims in the office as an outpatient with peripheral arterial disease and prior angioplasty as well as end-stage renal disease as well as hypertension and dyslipidemia was experiencing symptoms of chest discomfort. He underwent myocardial perfusion imaging stress test and that revealed evidence of inferolateral ischemia. Because of that, a heart catheterization was advised. The patient underwent a heart catheterization by Dr. Sims and was found to have critical disease involving the PDA branch of the right coronary artery and intermediate disease involving the mid right coronary artery. APPROACH: Right radial artery. COMPLICATION: None. LEVEL OF SEDATION: Moderate with sedation length of 45 minutes. PROCEDURE DESCRIPTION: After obtaining an informed consent, the patient was brought to the cardiac slabber. The right radial artery was cannulated using micropuncture technique, the micropuncture wire passed easily, then I placed a 6-Maori sheath in the right radial artery. Subsequently, I did start anticoagulation with heparin and the patient was given a total of 10,000 units of heparin throughout the procedure with 8000 at the beginning and 2000 additional. I did engage the right coronary artery using JR4 guide. I did wire the PDA branch of the right coronary artery using a run-through wire. Attempting balloon angioplasty using 2.5 mm as well as 1.5 mm was unsuccessful because the balloons did not cross the lesion. Because of that, I decided to wire the PDA using a miki wire which was a whisper wire. Over the Whisper wire, I was able to do balloon angioplasty of the PDA using initially 1.5 mm of subsequent and subsequently 2.5 mm balloon. Subsequently I was able to deploy 2.0 x 15 mm Sergo drug-eluting stent where the stent was positioned under fluoroscopy guidance and deployed under 16 atmospheres for 20 seconds with the following angiogram showing excellent angiographic results and the procedure at that point was completed without any complication. Of course, the stent was deployed after the miki wire was pulled out from the PDA. POSTPROCEDURE MANAGEMENT: 1. Dual anti-platelet therapy. 2. Risk factor modifications. 3. Follow up with the patient. MMODL / IJN: [id number] /
--- NOTE | 2020-04-27 10:31 | P.PN ---
Subjective Patient is seen in follow-up for acute kidney injury on chronic kidney disease. Currently maintained on IV Lasix. Nonoliguric. renal function little worse today. He underwent cardiac catheterization yesterday and again this morning but the stent placement to the right coronary. He is awake and alert. Denies chest pain or shortness of breath. Vital signs are stable. General: The patient appeared well nourished and normally developed. HEENT: Head exam is unremarkable. Neck is without jugular venous distension. LUNGS: Breath sounds decreased. HEART: Rate and Rhythm are regular. ABDOMEN: Soft, nontender. EXTREMITITES: trace edema. Objective - Vital Signs Vital signs: Vital Signs Temp 98.2 F 04/27/20 04:00 Pulse 70 04/27/20 04:00 Resp 18 04/27/20 04:00 BP 108/74 04/27/20 04:00 Pulse Ox 96 04/27/20 04:00 Intake & Output 04/26/20 04/27/20 04/27/20 18:59 06:59 18:59 Intake Total 440 50 Output Total 1500 2950 Balance -1060 -2950 50 Weight 86.9 kg 88.1 kg Intake: IV 100 50 Oral 340 Output: Urine 1500 2950 Other: Voiding Method Indwelling Catheter Indwelling Catheter - Labs CBC & Chem 7: 04/27/20 07:00 04/27/20 07:00 Labs: Abnormal Lab Results - Last 24 Hours (Table) 04/26/20 04/26/20 04/26/20 Range/Units 11:56 16:45 20:20 WBC (3.8-10.6) k/uL RBC (4.30-5.90) m/uL Hgb (13.0-17.5) gm/dL Hct (39.0-53.0) % MCHC (31.0-37.0) g/dL RDW (11.5-15.5) % Neutrophils # (1.3-7.7) k/uL Lymphocytes # (1.0-4.8) k/uL BUN (9-20) mg/dL Creatinine (0.66-1.25) mg/dL Glucose (74-99) mg/dL POC Glucose (mg/dL) 196 H 413 H 482 H (75-99) mg/dL 04/27/20 04/27/20 04/27/20 Range/Units 06:17 07:00 07:00 WBC 13.9 H (3.8-10.6) k/uL RBC 2.93 L (4.30-5.90) m/uL Hgb 8.9 L (13.0-17.5) gm/dL Hct 28.6 L (39.0-53.0) % MCHC 30.9 L (31.0-37.0) g/dL RDW 16.0 H (11.5-15.5) % Neutrophils # 12.6 H (1.3-7.7) k/uL Lymphocytes # 0.6 L (1.0-4.8) k/uL BUN 69 H (9-20) mg/dL Creatinine 4.03 H (0.66-1.25) mg/dL Glucose 132 H (74-99) mg/dL POC Glucose (mg/dL) 158 H (75-99) mg/dL Microbiology - Last 24 Hours (Table) 04/24/20 11:00 Gram Stain - Preliminary Pleural Fluid Body Fluid Culture - Preliminary Assessment and Plan Plan: Assessment: 1. Acute kidney injury secondary to ATN secondary to cardiorenal syndrome. renal function worse due to diuresis. Also received IV contrast April 26 and April 27. 2. Chronic kidney disease stage IV secondary to diabetic kidney disease and IgA nephropathy with severe interstitial fibrosis and atrophy. Baseline creatinine 3-3.3. 3. Volume overload. Improving with diuresis. 4. Acute on chronic diastolic CHF. 5. Right-sided pleural effusion status post thoracentesis with 1.3 L drained. 6. Hypertension with chronic kidney disease. Controlled. 7. Chronic kidney disease mineral bone disease maintained on calcitriol. 8. Diabetes mellitus. 9. Anemia of chronic kidney disease maintained on Aranesp. 10. Coronary artery disease status post stent to the RCA placed this morning. Plan: discontinue IV Lasix. Start Demadex 40 mg once daily. Decreased gabapentin dose to 200 mg twice daily. Decrease dose of hydralazine to 50 mg 3 times daily. To be held if systolic blood pressure less than 120. Continue to monitor renal function and urine output. Patient is interested in peritoneal dialysis. Will plan for PD catheter pl acement upon discharge. no urgent need for renal replacement therapy at this time.
[2020-04-27 11:59] LABS: Glucose,Whole Blood 313 mg/dL (75-99)
[2020-04-27] MEDS: glipiZIDE 5 MG TAB PO SCH (12:18)
--- NOTE | 2020-04-27 12:28 | P.PN ---
Subjective Progress Note Date: 04/27/20 Principal diagnosis: Acute on chronic hypoxic respiratory failure secondary to diastolic congestive heart failure and mitral valve disease This is a 70-year-old white male familiar to my service, patient was recently in the hospital with what seemed to be congestive heart failure secondary to mitral valve disease. Patient also had acute on chronic kidney disease. Kelli gutierrez has chronic kidney disease stage IV secondary to diabetic nephropathy and underlying IgA nephropathy. He normally sees nephrology on outpatient basis. Patient was in the hospital last week, however on 04/22/20, patient left the hospital AGAINST MEDICAL ADVICE. We saw him last on 04/21/20, and we felt that the patient was responding well to diuretics, and bronchodilators, and he was also on antibiotics in the form of Augmentin. As well as heparin drip. He had at the time a good sized right-sided pleural effusion however the patient was improving with diuretics, and we were certain that the effusion is cardiac in nature, did not recommend thoracentesis. His other medical problems on his last admission included non-ST elevation myocardial infarction, acute exacerbation of COPD, chronic kidney disease stage IV, insulin-dependent diabetes, symptomatic anemia requiring multiple transfusions on a regular basis/outpatient basis he also had hypertension peripheral vessel occlusive disease and abnormal echocardiogram questioning density which may represent part of the chordae or vegetations and JENNIFER was recommended but never done. This was recommended mostly to evaluate his mitral valve disease. His ejection fraction was basically normal. And he was also noted to have inferior hypokinesis. At any rate when the patient presented to the ER yesterday, he was extremely short of breath, he was placed initially on BiPAP, and I was notified about this patient early this morning. I recommended Lasix 40 mg IV push, patient responded well to diuretics, and he was transitioned from BiPAP to a nasal cannula presently at 6 L high flow nasal cannula and seems to be comfortable. I reviewed his chest x- ray ultrasound of the chest, and I performed a right sided thoracentesis, 1300 mL of fluid was drained from the right pleural space. The fluid was clear, and it was sent for different diagnostic studies, suspect the fluid is transudative unless proven otherwise Patient was reevaluated today on 04/25/20 remains in the ICU, remains on Lasix at 40 mg IV push every 12 hours, remains on oxygen at 4 L/m, patient is feeling much better. Continues to be in negative balance. Patient had a negative balance of 3.6 L since admission yesterday he is feeling better breathing easier. No chest x-ray was done. Patient also underwent a right sided thoracentesis yesterday, and I was able to drain over 1300 mL of transudative pleural effusion. Low LDH and low protein noted on the fluid today. So this is clearly a fluid of congestive heart failure not a fluid of infection or maligna ncy. Labs today were reviewed WBC count is 13.8 hemoglobin is 8.2 electrolytes are normal his BUN is 60 creatinine is 3.90, slightly worse compared to yesterday, it was 3.83 on admission. Patient is being followed by nephrology. And today I will go ahead and cut down on the Lasix dose. We will make Lasix 60 mg IV push every 12 hours instead of 80 mg IV push every 12 hours. We will also arrange for the patient to be transferred to a monitor bed on selective. On 04/26/2020 patient seen in follow-up on selective care unit, he has just returned from a cardiac catheterization which showed diffuse coronary artery disease with chronically involving the ostium and proximal portion of the PDA b ranch of the right coronary artery. PCI and stenting of the PDA is planned for tomorrow by Dr. Boyd. Currently patient is resting comfortably in bed, [place] any chest pain, denies any shortness of breath, room air pulse ox 96%, hemodynamically stable, breathing is nonlabored. Nephrology is following, today's labs have been reviewed, BUN is 65, and creatinine slightly improved, down to 3.76. he continues on IV Lasix 60 mg every 12 hours. On 04/27/2020 patient seen in follow-up on selective care unit. Patient is awake and alert, in no acute distress he has just returned from heart catheteri zation after stenting of his PDA branch of the right coronary artery with a drug-eluting stent, and via right radial approach. Tolerated procedure very well, he is resting comfortably in bed, denies any shortness of breath or chest pain, lung sounds are clear to auscultation, room air pulse ox is 96%. Pleural fluid cytology still pending at this time, pleural fluid cultures showed no growth at the 72 hour kyara. Patient is receiving IV fluids at 75 ML per hour with 0.9 normal saline. Nephrology is following, today's creatinine is up to 4.03. Objective - Vital Signs Vital signs: Vital Signs Temp 98.2 F 04/27/20 04:00 Pulse 70 04/27/20 04:00 Resp 16 04/27/20 10:43 BP 137/63 04/27/20 10:43 Pulse Ox 96 04/27/20 10:43 Intake & Output 04/26/20 04/27/20 04/27/20 18:59 06:59 18:59 Intake Total 440 50 Output Total 1500 2950 Balance -1060 -2950 50 Weight 86.9 kg 88.1 kg Intake: IV 100 50 Oral 340 Output: Urine 1500 2950 Other: Voiding Method Indwelling Catheter Indwelling Catheter Indwelling Catheter - Exam GENERAL EXAM: Alert, very pleasant, 70-year-old white male , with pulse ox of 96%, comfortable in no apparent distress. HEAD: Normocephalic/atraumatic. EYES: Normal reaction of pupils, equal size. Conjunctiva pink, sclera white. NOSE: Clear with pink turbinates. THROAT: No erythema or exudates. NECK: No masses, no JVD, no thyroid enlargement, no adenopathy. CHEST: No chest wall deformity. Symmetrical expansion. LUNGS: Equal air entry with no crackles, wheeze, rhonchi or dullness. CVS: Regular rate and rhythm, normal S1 and S2, no gallops, no murmurs, no rubs ABDOMEN: Soft, nontender. No hepatosplenomegaly, normal bowel sounds, no guarding or rigidity. EXTREMITIES: No clubbing, no edema, no cyanosis, 2+ pulses and upper and lower extremities. MUSCULOSKELETAL: Muscle strength and tone normal. SPINE: No scoliosis or deformity SKIN: No rashes CENTRAL NERVOUS SYSTEM: Alert and oriented -3. No focal deficits, tone is normal in all 4 extremities. PSYCHIATRIC: Alert and oriented -3. Appropriate affect. Intact judgment and insight. - Labs CBC & Chem 7: 04/27/20 07:00 04/27/20 07:00 Labs: Abnormal Lab Results - Last 24 Hours (Table) 04/26/20 04/26/20 04/27/20 Range/Units 16:45 20:20 06:17 WBC (3.8-10.6) k/uL RBC (4.30-5.90) m/uL Hgb (13.0-17.5) gm/dL Hct (39.0-53.0) % MCHC (31.0-37.0) g/dL RDW (11.5-15.5) % Neutrophils # (1.3-7.7) k/uL Lymphocytes # (1.0-4.8) k/uL BUN (9-20) mg/dL Creatinine (0.66-1.25) mg/dL Glucose (74-99) mg/dL POC Glucose (mg/dL) 413 H 482 H 158 H (75-99) mg/dL 04/27/20 04/27/20 04/27/20 Range/Units 07:00 07:00 11:58 WBC 13.9 H (3.8-10.6) k/uL RBC 2.93 L (4.30-5.90) m/uL Hgb 8.9 L (13.0-17.5) gm/dL Hct 28.6 L (39.0-53.0) % MCHC 30.9 L (31.0-37.0) g/dL RDW 16.0 H (11.5-15.5) % Neutrophils # 12.6 H (1.3-7.7) k/uL Lymphocytes # 0.6 L (1.0-4.8) k/uL BUN 69 H (9-20) mg/dL Creatinine 4.03 H (0.66-1.25) mg/dL Glucose 132 H (74-99) mg/dL POC Glucose (mg/dL) 313 H (75-99) mg/dL Microbiology - Last 24 Hours (Table) 04/24/20 11:00 Gram Stain - Preliminary Pleural Fluid Body Fluid Culture - Preliminary Assessment and Plan Plan: Assessment: #1. Acute on chronic hypoxic respiratory failure secondary to congestive heart failure suspected diastolic dysfunction also suspect mitral valve disease which may require further investigation. #2. Right pleural effusion and left pleural effusion secondary to congestive heart failure. Status post right-sided thoracentesis today with transudate of fluid #3. Acute non-ST elevation myocardial infarction #4. History of underlying COPD, presently inactive. #5. Chronic kidney disease stage IV, patient is known to have diabetic nephropathy and possibly IgA nephropathy. #6. Insulin-dependent diabetes. #7. Chronic iron deficiency anemia requiring multiple transfusions of viral on outpatient basis. #8. Benign essential hypertension with hypertensive nephropathy. #9. Peripheral vessel occlusive disease and previous intervention for total occlusion of the right sfa and PTCA and stenting of the left SFA #10. Carotid artery disease and previous stenting. #11. Multivessel diffuse coronary artery disease, with critical lesion involving the ostium and proximal PDA branch and RCA, status post PCI and stenting of the PDA branch of the RCA today on 04/27/2020 with a drug-eluting stent Plan: Patient denies any pulmonary complaints, doing well, on room air, he status post PCI and stenting of the PDA branch of the right coronary artery, tolerated procedure well, receiving IV hydration, denies any shortness of breath or chest pain. Hemodynamically stable. I performed a history & physical examination of the patient and discussed their management with my nurse practitioner, Arelis Mohamud. I reviewed the nurse practitioner's note and agree with the documented findings and plan of care. Lung sounds are positive for diminished breath sounds. The findings and the impression was discussed with the patient. I attest to the documentation by the nurse practitioner. Time with Patient: Less than 30
[2020-04-27 16:37] LABS: Glucose,Whole Blood 465 mg/dL (75-99)
[2020-04-27 16:40] LABS: Glucose,Whole Blood 510 mg/dL (75-99)
[2020-04-27 20:13] LABS: Glucose,Whole Blood 421 mg/dL (75-99)
--- NOTE | 2020-04-27 20:34 | P.PN ---
Subjective This is a pleasant 70 years old male with past medical history of diabetes mellitus, hyperlipidemia, hypertension, GI bleed, chronic kidney disease stage IV, iron deficiency anemia and he follows with Dr. Singletary and receiving multiple iron transfusion through his port and the right upper chest, chronic low back pain with bilateral sciatica, vertigo, coronary artery disease . He was recently treated this hospital from 04/18-04/21 for heart attack, at that time he had None STEMI, decided to be treated medically as cardiac cath will put him at risk of hemodialysis, he had chronic kidney disease stage IV, acute diastolic CHF and possible right lower lobe pneumonia and pleural effusion decided to be treated medically and improved significantly with Augmentin and Lasix. Sugar was more than 400 at that time and he did not want to wait to control his sugar and he just left. This time he presents with acute dyspnea REQUIRING BiPAP in the emergency room 04/25/20 Patient is breathing more quietly today, can marker In for Cardiac Cath, I Discussed the Case with the Patient and Looks He Understands That Cardiac Cath May Put Him Most Likely on the Risk of Hemodialysis per Consultants Recommendation from Cardiology and Nephrology, He Understands That and He Agrees to Proceed with Cardiac Cath Which Looks Reasonable. Patient Is Hemodynamically Stable and He Is Going to Be Transferred to the General Medical Floor Today. His sugar still having problems due to the tapering prednisone effect and his insulin Levemir was increased to 30 units daily at 20 units at bedtime Hydralazine was increased to 100 mg 3 times daily. 04/26/20 Patient underwent cardiac cath today, Diffuse coronary artery disease with diffuse calcification and multiple 30-50% lesions. There is critical lesion involving the ostium and proximal portion of the PDA. We will follow up with cardiology for possible stent placement of the PDA with recommendation HYDRATION OF THE KIDNEY IN 24-48 HOURS. Cardiology recommendation however patient is fluid overloaded and he is currently on Lasix 60 mg twice a day per nephrology recommendation Continue with Levemir 30 units in the morning and 20 units at night, expected sugar to keep trending down as prednisone is tapered down 04/27/20 Patient is on room air with no chest pain or dyspnea Patient underwent cardiac cath today, he status post cardiac cath today with stent placement in the PDA of the right coronary artery Nephrology on the case and the timing for vestment of peritoneal dialysis catheter prior to discharge upon patient choice His hemoglobin is stable at 8.9. Creatinine up to 4. Sugars more than 400 continue with Levemir and insulin sliding scale Objective - Vital Signs Vital signs: Vital Signs Temp 98.0 F 04/27/20 16:17 Pulse 70 04/27/20 04:00 Resp 16 04/27/20 18:59 BP 152/68 04/27/20 16:17 Pulse Ox 97 04/27/20 16:17 Intake & Output 04/27/20 04/27/20 04/28/20 06:59 18:59 06:59 Intake Total 812 Output Total 2950 650 Balance -2950 162 Weight 88.1 kg Intake: IV 50 Oral 762 Output: Urine 2950 650 Other: Voiding Method Indwelling Catheter Indwelling Catheter - Exam GENERAL: The patient is alert and oriented x3, Well developed, well nourished. HEENT: Pupils are round and equally reacting to light. EOMI. No scleral icterus. No conjunctival pallor. Normocephalic, atraumatic. No pharyngeal erythema. No thyromegaly. CARDIOVASCULAR: S1 and S2 present. No murmurs, rubs, or gallops. -PULMONARY: Chest is clear to auscultation, bilateral crepitation and scattered wheezing, decreased air entry on both sides ABDOMEN: Soft, nontender, nondistended, normoactive bowel sounds. No palpable organomegaly. MUSCULOSKELETAL: No joint swelling or deformity. -EXTREMITIES: No cyanosis, clubbing,. Bilateral patent leg edema. NEUROLOGICAL: Gross neurological examination did not reveal any focal deficits. SKIN: No rashes. No petechiae - Labs CBC & Chem 7: 04/27/20 07:00 04/27/20 07:00 Labs: Abnormal Lab Results - Last 24 Hours (Table) 04/27/20 04/27/20 04/27/20 Range/Units 06:17 07:00 07:00 WBC 13.9 H (3.8-10.6) k/uL RBC 2.93 L (4.30-5.90) m/uL Hgb 8.9 L (13.0-17.5) gm/dL Hct 28.6 L (39.0-53.0) % MCHC 30.9 L (31.0-37.0) g/dL RDW 16.0 H (11.5-15.5) % Neutrophils # 12.6 H (1.3-7.7) k/uL Lymphocytes # 0.6 L (1.0-4.8) k/uL BUN 69 H (9-20) mg/dL Creatinine 4.03 H (0.66-1.25) mg/dL Glucose 132 H (74-99) mg/dL POC Glucose (mg/dL) 158 H (75-99) mg/dL 04/27/20 04/27/20 04/27/20 Range/Units 11:58 16:35 16:38 WBC (3.8-10.6) k/uL RBC (4.30-5.90) m/uL Hgb (13.0-17.5) gm/dL Hct (39.0-53.0) % MCHC (31.0-37.0) g/dL RDW (11.5-15.5) % Neutrophils # (1.3-7.7) k/uL Lymphocytes # (1.0-4.8) k/uL BUN (9-20) mg/dL Creatinine (0.66-1.25) mg/dL Glucose (74-99) mg/dL POC Glucose (mg/dL) 313 H 465 H 510 H (75-99) mg/dL 04/27/20 Range/Units 20:12 WBC (3.8-10.6) k/uL RBC (4.30-5.90) m/uL Hgb (13.0-17.5) gm/dL Hct (39.0-53.0) % MCHC (31.0-37.0) g/dL RDW (11.5-15.5) % Neutrophils # (1.3-7.7) k/uL Lymphocytes # (1.0-4.8) k/uL BUN (9-20) mg/dL Creatinine (0.66-1.25) mg/dL Glucose (74-99) mg/dL POC Glucose (mg/dL) 421 H (75-99) mg/dL Microbiology - Last 24 Hours (Table) 04/24/20 11:00 Gram Stain - Preliminary Pleural Fluid Body Fluid Culture - Preliminary Assessment and Plan Assessment: Acute hypoxic respiratory failure secondary to CHF acute on chronic diastolic CHF exacerbation Recent non-STEMI, elevated troponin trending down compared to last time Acute on chronic kidney disease secondary to cardiorenal syndrome. Patient with chronic kidney disease stage IV Possible right lower lobe pneumonia versus atelectasis, with right pleural effusion Type 2 diabetes mellitus Hypertension Hyperlipidemia History of coronary artery disease PVD status post stent of the Rt SFA by Dr. Boyd GERD GI bleed History of iron deficiency anemia needing multiple iron transfusion and through the port, he follows up with Dr. Singletary Nicotine dependence Plan: This is a pleasant 70 years old male who presents with acute respiratory failure, acute CHF, acute kidney injury. Continue with oxygen, and BiPAP as needed, continue with Lasix, cardiology, pulmonary and nephrology consults orthopedic called to follow the recommendation. Patient might need cardiac cath per cardiology recommendation, also patient might need hemodialysis per nephrology recommendations. Continue with antibiotic. Continue with aspirin and Plavix. Nitroglycerin. Labs and medication were reviewed.. Continue same treatment. Continue with symptomatic treatment. Resume home medication. Monitor lytes and vitals. DVT and GI prophylaxis. Further recommendations of the clinical course of the patient DVT prophylaxis: Subcutaneous heparin GI Prophylaxis: Pepcid Prognosis is guarded
[2020-04-27] MEDS: ASPIRIN 81 MG PO SCH (21:58)
[2020-04-27] MEDS: ATORVASTATIN 20 MG TAB PO SCH (22:00)
[2020-04-27] MEDS: MELATONIN 5 MG TABLET PO SCH (22:01)
[2020-04-27] MEDS: CLOPIDOGREL 75 MG TAB PO SCH (22:01)
[2020-04-28 02:00] LABS: Glucose,Whole Blood 267 mg/dL (75-99)
[2020-04-28] MEDS: INSULIN ASPART (NovoLOG) 100 UNIT/ML VIAL SQ SCH ×3 (02:15→13:01)
[2020-04-28 05:54] VITALS: TEMP 97.8
[2020-04-28 06:37] LABS: Glucose,Whole Blood 148 mg/dL (75-99)
[2020-04-28] MEDS: INSULIN DETEMIR (LEVEMIR) 100 UNIT/ML SYR SQ SCH (06:39)
[2020-04-28] MEDS: PANTOPRAZOLE 40 MG TABLET PO SCH (06:39)
[2020-04-28 06:53] LABS: Basophils % (A) 0 %; Eosinophils # (A) 0.1 k/uL (0-0.7); Eosinophils % (A) 1 %; HCT 29.5 % (39.0-53.0); Hypochromasia Moderate; Lymphocytes # (A) 1.1 k/uL (1.0-4.8); Lymphocytes % (A) 8 %; MCH 29.8 pg (25.0-35.0); MCHC 30.3 g/dL (31.0-37.0); MCV 98.2 fL (80.0-100.0); Macrocytosis Slight; Mean Platelet Volume 8.6; Monocytes # (A) 0.7 k/uL (0-1.0); Monocytes % (A) 5 %; Neutrophils # (A) 11.1 k/uL (1.3-7.7); Neutrophils % (A) 85 %; Platelet Count 365 k/uL (150-450); RBC 3.01 m/uL (4.30-5.90); RDW 15.5 % (11.5-15.5)
[2020-04-28 07:27] LABS: Calcium 8.7 mg/dL (8.4-10.2); Potassium 3.9 mmol/L (3.5-5.1)
[2020-04-28] MEDS: predniSONE 20 MG TAB PO SCH (08:37)
[2020-04-28] MEDS: hydrALAZINE HCL 50 MG TAB PO SCH (08:37)
[2020-04-28] MEDS: ISOSORBIDE MONONITRATE ER 60 MG TAB.ER.24H PO SCH (08:37)
[2020-04-28] MEDS: SODIUM BICARBONATE TAB 650 MG TAB PO SCH (08:37)
[2020-04-28] MEDS: METOPROLOL TARTRATE 25 MG TAB PO SCH (08:37)
[2020-04-28] MEDS: RANOLAZINE 500 MG TAB.ER.12H PO SCH (08:37)
[2020-04-28] MEDS: amLODIPine 10 MG TAB PO SCH (08:37)
[2020-04-28] MEDS: CYANOCOBALAMIN 500 MCG TAB PO SCH (08:37)
[2020-04-28] MEDS: GABAPENTIN 100 MG CAP PO SCH (08:37)
[2020-04-28] MEDS: FERROUS SULFATE 325 MG TAB PO SCH (08:38)
[2020-04-28] MEDS: HEPARIN SODIUM,PORCINE 5,000 UNIT/ML 1 ML VIAL SQ SCH (08:38)
[2020-04-28 08:45] VITALS: BP 162/68; PULSE 63; RESP 16
[2020-04-28] MEDS ORDERED: TORSEMIDE 20 MG TAB PO SCH (09:00)
[2020-04-28] MEDS ORDERED: ERGOCALCIFEROL 50,000 UNIT CAP PO SCH (09:00)
--- NOTE | 2020-04-28 09:58 | P.PN ---
Subjective Patient is seen in follow-up for acute kidney injury on chronic kidney disease. Currently maintained on oral Demadex. Renal function better today. Nonoliguric. He underwent cardiac catheterization on April 26 and again April 27 with stent placement to the right coronary. He is awake and alert. Denies chest pain or shortness of breath. feels well today. wants to go home. Vital signs are stable. General: The patient appeared well nourished and normally developed. HEENT: Head exam is unremarkable. Neck is without jugular venous distension. LUNGS: Breath sounds decreased. HEART: Rate and Rhythm are regular. ABDOMEN: Soft, nontender. EXTREMITITES: trace edema. Objective - Vital Signs Vital signs: Vital Signs Temp 97.8 F 04/28/20 04:00 Pulse 63 04/28/20 08:00 Resp 16 04/28/20 08:00 BP 162/68 04/28/20 08:00 Pulse Ox 98 04/28/20 08:00 Intake & Output 04/27/20 04/28/20 04/28/20 18:59 06:59 18:59 Intake Total 812 230 Output Total 650 1350 525 Balance 162 -1350 -295 Weight 89 kg Intake: IV 50 Oral 762 230 Output: Urine 650 1350 525 Other: Voiding Method Indwelling Catheter Indwelling Catheter Indwelling Catheter - Labs CBC & Chem 7: 04/28/20 06:05 04/28/20 06:05 Labs: Abnormal Lab Results - Last 24 Hours (Table) 04/27/20 04/27/20 04/27/20 Range/Units 11:58 16:35 16:38 WBC (3.8-10.6) k/uL RBC (4.30-5.90) m/uL Hgb (13.0-17.5) gm/dL Hct (39.0-53.0) % MCHC (31.0-37.0) g/dL Neutrophils # (1.3-7.7) k/uL Sodium (137-145) mmol/L BUN (9-20) mg/dL Creatinine (0.66-1.25) mg/dL Glucose (74-99) mg/dL POC Glucose (mg/dL) 313 H 465 H 510 H (75-99) mg/dL 04/27/20 04/28/20 04/28/20 Range/Units 20:12 01:58 06:05 WBC 13.0 H (3.8-10.6) k/uL RBC 3.01 L (4.30-5.90) m/uL Hgb 9.0 L (13.0-17.5) gm/dL Hct 29.5 L (39.0-53.0) % MCHC 30.3 L (31.0-37.0) g/dL Neutrophils # 11.1 H (1.3-7.7) k/uL Sodium (137-145) mmol/L BUN (9-20) mg/dL Creatinine (0.66-1.25) mg/dL Glucose (74-99) mg/dL POC Glucose (mg/dL) 421 H 267 H (75-99) mg/dL 04/28/20 04/28/20 Range/Units 06:05 06:34 WBC (3.8-10.6) k/uL RBC (4.30-5.90) m/uL Hgb (13.0-17.5) gm/dL Hct (39.0-53.0) % MCHC (31.0-37.0) g/dL Neutrophils # (1.3-7.7) k/uL Sodium 136 L (137-145) mmol/L BUN 74 H (9-20) mg/dL Creatinine 3.81 H (0.66-1.25) mg/dL Glucose 139 H (74-99) mg/dL POC Glucose (mg/dL) 148 H (75-99) mg/dL Microbiology - Last 24 Hours (Table) 04/24/20 11:00 Gram Stain - Preliminary Pleural Fluid Body Fluid Culture - Preliminary Assessment and Plan Plan: Assessment: 1. Acute kidney injury secondary to ATN secondary to cardiorenal syndrome. renal function better. Also received IV contrast April 26 and April 27. 2. Chronic kidney disease stage IV secondary to diabetic kidney disease and IgA nephropathy with severe interstitial fibrosis and atrophy. Baseline creatinine 3-3.3. 3. Volume overload. Improved with diuresis. 4. Acute on chronic diastolic CHF. 5. Right-sided pleural effusion status post thoracentesis with 1.3 L drained. 6. Hypertension with chronic kidney disease. Controlled. 7. Chronic kidney disease mineral bone disease maintained on calcitriol. 8. Diabetes mellitus. 9. Anemia of chronic kidney disease maintained on Aranesp. 10. Coronary artery disease status post stent to the RCA placed April 27. Plan: maintain Demadex 40 mg once daily. Decreased gabapentin dose to 200 mg twice daily. Decreased dose of hydralazine to 50 mg 3 times daily. To be held if systolic blood pressure less than 120. Continue to monitor renal function and urine output. Patient is interested in peritoneal dialysis. Will plan for PD catheter placement upon discharge. no urgent need for renal replacement therapy at this time. anticipate discharge soon. Follow up outpatient in 7-10 days.
[2020-04-28 12:21] LABS: Glucose,Whole Blood 167 mg/dL (75-99)
--- NOTE | 2020-04-28 12:49 | P.PN ---
Subjective Progress Note Date: 04/28/20 CHIEF COMPLAINT: CHF HISTORY OF PRESENT ILLNESS: Patient is status post cardiac catheterization with Dr. Sims on 04/26/2020 and also status post stenting of the PDA branch of the right coronary artery with Dr. Stone on 04/28/2020. Patient examined this morning at the bedside. He denies chest pain. He denies shortness of breath. Creatinine 3.81 today. PHYSICAL EXAM: VITAL SIGNS: Reviewed. GENERAL: Well-developed in no acute distress. NECK: Supple. No JVD or thyromegaly LUNGS: Respirations even and unlabored. Lungs essentially clear to auscultation bilaterally. HEART: Regular rate and rhythm. S1 and S2 heard. EXTREMITIES: Normal range of motion. No clubbing or cyanosis. Peripheral pulses intact. No lower extremity edema. Right radial Site clean and dry. Pulse present ASSESSMENT: NSTEMI, s/p stent to RCA Hypertension Chronic kidney disease PLAN: Continue current cardiac medications. Patient is stable for discharge home today from a cardiac standpoint. Patient is to follow up outpatient with Dr. Sims Nurse practitioner note has been reviewed by physician. Signing provider agrees with the documented findings, assessment, and plan of care. Objective - Vital Signs Vital signs: Vital Signs Temp 97.8 F 04/28/20 04:00 Pulse 63 04/28/20 08:00 Resp 16 04/28/20 11:09 BP 162/68 04/28/20 08:00 Pulse Ox 98 04/28/20 08:00 Intake & Output 04/27/20 04/28/20 04/28/20 18:59 06:59 18:59 Intake Total 812 230 Output Total 650 1350 525 Balance 162 -1350 -295 Weight 89 kg Intake: IV 50 Oral 762 230 Output: Urine 650 1350 525 Other: Voiding Method Indwelling Catheter Indwelling Catheter Indwelling Catheter - Labs CBC & Chem 7: 04/28/20 06:05 04/28/20 06:05 Labs: Abnormal Lab Results - Last 24 Hours (Table) 04/27/20 04/27/20 04/27/20 Range/Units 16:35 16:38 20:12 WBC (3.8-10.6) k/uL RBC (4.30-5.90) m/uL Hgb (13.0-17.5) gm/dL Hct (39.0-53.0) % MCHC (31.0-37.0) g/dL Neutrophils # (1.3-7.7) k/uL Sodium (137-145) mmol/L BUN (9-20) mg/dL Creatinine (0.66-1.25) mg/dL Glucose (74-99) mg/dL POC Glucose (mg/dL) 465 H 510 H 421 H (75-99) mg/dL 04/28/20 04/28/20 04/28/20 Range/Units 01:58 06:05 06:05 WBC 13.0 H (3.8-10.6) k/uL RBC 3.01 L (4.30-5.90) m/uL Hgb 9.0 L (13.0-17.5) gm/dL Hct 29.5 L (39.0-53.0) % MCHC 30.3 L (31.0-37.0) g/dL Neutrophils # 11.1 H (1.3-7.7) k/uL Sodium 136 L (137-145) mmol/L BUN 74 H (9-20) mg/dL Creatinine 3.81 H (0.66-1.25) mg/dL Glucose 139 H (74-99) mg/dL POC Glucose (mg/dL) 267 H (75-99) mg/dL 04/28/20 04/28/20 Range/Units 06:34 12:03 WBC (3.8-10.6) k/uL RBC (4.30-5.90) m/uL Hgb (13.0-17.5) gm/dL Hct (39.0-53.0) % MCHC (31.0-37.0) g/dL Neutrophils # (1.3-7.7) k/uL Sodium (137-145) mmol/L BUN (9-20) mg/dL Creatinine (0.66-1.25) mg/dL Glucose (74-99) mg/dL POC Glucose (mg/dL) 148 H 167 H (75-99) mg/dL Microbiology - Last 24 Hours (Table) 04/24/20 11:00 Gram Stain - Final Pleural Fluid Body Fluid Culture - Final
[2020-04-28] MEDS: glipiZIDE 5 MG TAB PO SCH (13:01)
--- NOTE | 2020-04-28 16:17 | P.PN ---
Subjective Progress Note Date: 04/28/20 Principal diagnosis: Acute on chronic hypoxic respiratory failure secondary to diastolic congestive heart failure and mitral valve disease This is a 70-year-old white male familiar to my service, patient was recently in the hospital with what seemed to be congestive heart failure secondary to mitral valve disease. Patient also had acute on chronic kidney disease. Kelli gutierrez has chronic kidney disease stage IV secondary to diabetic nephropathy and underlying IgA nephropathy. He normally sees nephrology on outpatient basis. Patient was in the hospital last week, however on 04/22/20, patient left the hospital AGAINST MEDICAL ADVICE. We saw him last on 04/21/20, and we felt that the patient was responding well to diuretics, and bronchodilators, and he was also on antibiotics in the form of Augmentin. As well as heparin drip. He had at the time a good sized right-sided pleural effusion however the patient was improving with diuretics, and we were certain that the effusion is cardiac in nature, did not recommend thoracentesis. His other medical problems on his last admission included non-ST elevation myocardial infarction, acute exacerbation of COPD, chronic kidney disease stage IV, insulin-dependent diabetes, symptomatic anemia requiring multiple transfusions on a regular basis/outpatient basis he also had hypertension peripheral vessel occlusive disease and abnormal echocardiogram questioning density which may represent part of the chordae or vegetations and JENNIFER was recommended but never done. This was recommended mostly to evaluate his mitral valve disease. His ejection fraction was basically normal. And he was also noted to have inferior hypokinesis. At any rate when the patient presented to the ER yesterday, he was extremely short of breath, he was placed initially on BiPAP, and I was notified about this patient early this morning. I recommended Lasix 40 mg IV push, patient responded well to diuretics, and he was transitioned from BiPAP to a nasal cannula presently at 6 L high flow nasal cannula and seems to be comfortable. I reviewed his chest x- ray ultrasound of the chest, and I performed a right sided thoracentesis, 1300 mL of fluid was drained from the right pleural space. The fluid was clear, and it was sent for different diagnostic studies, suspect the fluid is transudative unless proven otherwise Patient was reevaluated today on 04/25/20 remains in the ICU, remains on Lasix at 40 mg IV push every 12 hours, remains on oxygen at 4 L/m, patient is feeling much better. Continues to be in negative balance. Patient had a negative balance of 3.6 L since admission yesterday he is feeling better breathing easier. No chest x-ray was done. Patient also underwent a right sided thoracentesis yesterday, and I was able to drain over 1300 mL of transudative pleural effusion. Low LDH and low protein noted on the fluid today. So this is clearly a fluid of congestive heart failure not a fluid of infection or maligna ncy. Labs today were reviewed WBC count is 13.8 hemoglobin is 8.2 electrolytes are normal his BUN is 60 creatinine is 3.90, slightly worse compared to yesterday, it was 3.83 on admission. Patient is being followed by nephrology. And today I will go ahead and cut down on the Lasix dose. We will make Lasix 60 mg IV push every 12 hours instead of 80 mg IV push every 12 hours. We will also arrange for the patient to be transferred to a monitor bed on selective. On 04/26/2020 patient seen in follow-up on selective care unit, he has just returned from a cardiac catheterization which showed diffuse coronary artery disease with chronically involving the ostium and proximal portion of the PDA b ranch of the right coronary artery. PCI and stenting of the PDA is planned for tomorrow by Dr. Boyd. Currently patient is resting comfortably in bed, [place] any chest pain, denies any shortness of breath, room air pulse ox 96%, hemodynamically stable, breathing is nonlabored. Nephrology is following, today's labs have been reviewed, BUN is 65, and creatinine slightly improved, down to 3.76. he continues on IV Lasix 60 mg every 12 hours. On 04/27/2020 patient seen in follow-up on selective care unit. Patient is awake and alert, in no acute distress he has just returned from heart catheteri zation after stenting of his PDA branch of the right coronary artery with a drug-eluting stent, and via right radial approach. Tolerated procedure very well, he is resting comfortably in bed, denies any shortness of breath or chest pain, lung sounds are clear to auscultation, room air pulse ox is 96%. Pleural fluid cytology still pending at this time, pleural fluid cultures showed no growth at the 72 hour kyara. Patient is receiving IV fluids at 75 ML per hour with 0.9 normal saline. Nephrology is following, today's creatinine is up to 4.03. On 04/28/2020 patient seen in follow-up on selective care unit, today he sitting up in a chair, in no acute distress, denies any chest pain, denies shortness of breath, lung sounds are clear, diminished at the bases, minimal crackles, he is on room air, with a pulse ox of 98%, he is afebrile, hemodynamically stable, patient is status post PCI and stenting in the PDA branch of the right coronary artery. No acute events overnight, creatinine is improving, down to 3.8 today. Objective - Vital Signs Vital signs: Vital Signs Temp 97.8 F 04/28/20 04:00 Pulse 63 04/28/20 08:00 Resp 16 04/28/20 11:09 BP 162/68 04/28/20 08:00 Pulse Ox 98 04/28/20 08:00 Intake & Output 04/27/20 04/28/20 04/28/20 18:59 06:59 18:59 Intake Total 812 460 Output Total 650 1350 875 Balance 162 -1350 -415 Weight 89 kg Intake: IV 50 Oral 762 460 Output: Urine 650 1350 875 Other: Voiding Method Indwelling Catheter Indwelling Catheter Indwelling Catheter - Exam GENERAL EXAM: Alert, very pleasant, 70-year-old white male, with pulse ox of 98%, comfortable in no apparent distress. HEAD: Normocephalic/atraumatic. EYES: Normal reaction of pupils, equal size. Conjunctiva pink, sclera white. NOSE: Clear with pink turbinates. THROAT: No erythema or exudates. NECK: No masses, no JVD, no thyroid enlargement, no adenopathy. CHEST: No chest wall deformity. Symmetrical expansion. LUNGS: Equal air entry with no crackles, wheeze, rhonchi or dullness. CVS: Regular rate and rhythm, normal S1 and S2, no gallops, no murmurs, no rubs ABDOMEN: Soft, nontender. No hepatosplenomegaly, normal bowel sounds, no guarding or rigidity. EXTREMITIES: No clubbing, no edema, no cyanosis, 2+ pulses and upper and lower extremities. MUSCULOSKELETAL: Muscle strength and tone normal. SPINE: No scoliosis or deformity SKIN: No rashes CENTRAL NERVOUS SYSTEM: Alert and oriented -3. No focal deficits, tone is normal in all 4 extremities. PSYCHIATRIC: Alert and oriented -3. Appropriate affect. Intact judgment and insight. - Labs CBC & Chem 7: 04/28/20 06:05 04/28/20 06:05 Labs: Abnormal Lab Results - Last 24 Hours (Table) 04/27/20 04/27/20 04/27/20 Range/Units 16:35 16:38 20:12 WBC (3.8-10.6) k/uL RBC (4.30-5.90) m/uL Hgb (13.0-17.5) gm/dL Hct (39.0-53.0) % MCHC (31.0-37.0) g/dL Neutrophils # (1.3-7.7) k/uL Sodium (137-145) mmol/L BUN (9-20) mg/dL Creatinine (0.66-1.25) mg/dL Glucose (74-99) mg/dL POC Glucose (mg/dL) 465 H 510 H 421 H (75-99) mg/dL 04/28/20 04/28/20 04/28/20 Range/Units 01:58 06:05 06:05 WBC 13.0 H (3.8-10.6) k/uL RBC 3.01 L (4.30-5.90) m/uL Hgb 9.0 L (13.0-17.5) gm/dL Hct 29.5 L (39.0-53.0) % MCHC 30.3 L (31.0-37.0) g/dL Neutrophils # 11.1 H (1.3-7.7) k/uL Sodium 136 L (137-145) mmol/L BUN 74 H (9-20) mg/dL Creatinine 3.81 H (0.66-1.25) mg/dL Glucose 139 H (74-99) mg/dL POC Glucose (mg/dL) 267 H (75-99) mg/dL 04/28/20 04/28/20 Range/Units 06:34 12:03 WBC (3.8-10.6) k/uL RBC (4.30-5.90) m/uL Hgb (13.0-17.5) gm/dL Hct (39.0-53.0) % MCHC (31.0-37.0) g/dL Neutrophils # (1.3-7.7) k/uL Sodium (137-145) mmol/L BUN (9-20) mg/dL Creatinine (0.66-1.25) mg/dL Glucose (74-99) mg/dL POC Glucose (mg/dL) 148 H 167 H (75-99) mg/dL Microbiology - Last 24 Hours (Table) 04/24/20 11:00 Gram Stain - Final Pleural Fluid Body Fluid Culture - Final Assessment and Plan Plan: Assessment: #1. Acute on chronic hypoxic respiratory failure secondary to congestive heart failure suspected diastolic dysfunction also suspect mitral valve disease which may require further investigation. #2. Right pleural effusion and left pleural effusion secondary to congestive heart failure. Status post right-sided thoracentesis today with transudate of fluid #3. Acute non-ST elevation myocardial infarction #4. History of underlying COPD, presently inactive. #5. Chronic kidney disease stage IV, patient is known to have diabetic nephropathy and possibly IgA nephropathy. #6. Insulin-dependent diabetes. #7. Chronic iron deficiency anemia requiring multiple transfusions of viral on outpatient basis. #8. Benign essential hypertension with hypertensive nephropathy. #9. Peripheral vessel occlusive disease and previous intervention for total occlusion of the right sfa and PTCA and stenting of the left SFA #10. Carotid artery disease and previous stenting. #11. Multivessel diffuse coronary artery disease, with critical lesion involving the ostium and proximal PDA branch and RCA, status post PCI and stenting of the PDA branch of the RCA today on 04/27/2020 with a drug-eluting stent Plan: Patient is doing well, no specific complaints, no shortness of breath, no chest pain, room air, pulse ox of 98%, creatinine is improving, patient is status post PDA PCI and stenting, cardiology following, patient has been cleared for discharge from cardiology perspective, from pulmonary perspective he has remained stable, and chemically for discharge. I performed a history & physical examination of the patient and discussed their management with my nurse practitioner, Arelis Mohamud. I reviewed the nurse practitioner's note and agree with the documented findings and plan of care. Lung sounds are positive for diminished breath sounds. The findings and the impression was discussed with the patient. I attest to the documentation by the nurse practitioner. Time with Patient: Less than 30
--- NOTE | 2020-04-29 01:03 | P.DS ---
Providers Date of admission: 04/24/20 01:42 Attending physician: Aida Ndiaye Consults: 04/24/20 01:47 Consult Physician Routine Consulting Provider: Ritchie Orta Consult Reason/Comments: pneumonia Do you want consulting provider notified?: Yes Consult Physician Routine Consulting Provider: Yulissa Ivory Consult Reason/Comments: dialysis patient Do you want consulting provider notified?: Yes 04/24/20 01:48 Consult Physician Routine Consulting Provider: Vaishnavi Vazquez Consult Reason/Comments: CHF exacerbation Do you want consulting provider notified?: Yes 04/24/20 08:58 Consult Physician Routine Consulting Provider: Yulissa Ivory Consult Reason/Comments: Renal Disease (consult prior to CVL) Do you want consulting provider notified?: Yes 04/27/20 08:58 Consult Physician Routine Consulting Provider: [facility] Consult Reason/Comments: Post Interventional patient Do you want consulting provider notified?: Already Contacted Primary care physician: [facility] Course: Diagnoses: -Acute hypoxic respiratory failure secondary to CHF -acute on chronic diastolic CHF exacerbation -Recent non-STEMI, status post cardiac cath and stent placement -Acute on chronic kidney disease secondary to cardiorenal syndrome. Patient with chronic kidney disease stage IV, patient expected to have peritoneal dialysis and he will need follow-up outpatient with Dr. Ivory -Possible right lower lobe pneumonia versus atelectasis, with right pleural effusion -Type 2 diabetes mellitus -Hypertension -Hyperlipidemia -History of coronary artery disease -PVD status post stent of the Rt SFA by Dr. Boyd -GERD -GI bleed -History of iron deficiency anemia needing multiple iron transfusion and through the port, he follows up with Dr. Singletary -Nicotine dependence Hospital course: This is a pleasant 70 years old male with past medical history of diabetes mellitus, hyperlipidemia, hypertension, GI bleed, chronic kidney disease stage IV, iron deficiency anemia and he follows with Dr. Singletary and receiving multiple iron transfusion through his port and the right upper chest, chronic low back pain with bilateral sciatica, vertigo, coronary artery disease . He was recently treated this hospital from 04/18-04/21 for heart attack, at that time he had None STEMI, decided to be treated medically as cardiac cath will put him at risk of hemodialysis, he had chronic kidney disease stage IV, acute diastolic CHF and possible right lower lobe pneumonia and pleural effusion decided to be treated medically and improved significantly with Augmentin and Lasix. Sugar was more than 400 at that time and he did not want to wait to control his sugar and he just left. This time he presents with acute dyspnea REQUIRING BiPAP in the emergency room. Patient has been evaluated by enterprise manager and firepot operator and tender and the decision to undergo cardiac cath which showed Diffuse coronary artery disease with diffuse calcification and multiple 30-50% lesions. There is critical lesion involving the ostium and proximal portion of the PDA. Status post stent placement in the PDA of the right coronary artery Also patient underwent right pleural effusion thoracocentesis. Postoperatively patient was fully awake and oriented, no chest pain or dyspnea, he feels much better and he was asking if he can be discharged home today. No other complaints by the patient Patient was counseled about the importance of aggressive therapy including aspirin and Plavix and he verbalized understanding and acceptance He will be discharged on edema ducts while Lasix was stopped per nephrology team recommendation. Patient will be discharged for 3 more days of prednisone 10 mg as part of his taper regiment Retail Property Manager that the patient for opted to go for peritoneal dialysis, eventually firepot operator and tender cleared him for discharge with recommendation to follow up with their clinic in 7-10 days and he agrees. Patient was cleared for discharge poor consult is occluded pulmonary, cardiology and nephrology Problems and management plan were discussed with the patient and he verbalized understanding and acceptance Patient was found stable and can be discharged home however he needs follow-up as an outpatient. Patient was instructed to follow up with PCP within one week and patient agrees Patient agrees with all appointments made for him with the [place] rito 05/[address] Sims on 05/[address] allen on 05/[address] Ivory on 05/12 and states he will follow-up Gen: patient is a AAOx3, no distress CVS: S1-S2, RRR, no murmur Lungs: B/L CTA, no wheezing Abdomen: soft, no distention, no tenderness, positive bowel sounds Extremity: no leg edema or induration Time spent more than 35 minutes Patient Condition at Discharge: Serious Plan - Discharge Summary Discharge Rx Participant: No New Discharge Prescriptions: New hydrALAZINE HCL [Apresoline] 50 mg PO TID #90 tab Torsemide [Demadex] 40 mg PO DAILY #30 tab Insulin Glargine [Lantus] 10 unit SQ HS #1 vial Metoprolol Tartrate [Lopressor] 25 mg PO BID #60 tab amLODIPine [Norvasc] 10 mg PO DAILY #30 tab predniSONE 10 mg PO DAILY 3 Days #3 tab Gabapentin [Neurontin] 200 mg PO BID cap Continue Simvastatin [Zocor] 40 mg PO HS Ergocalciferol (Vitamin D2) [Vitamin D2] 50,000 unit PO Q14D Aspirin EC [Ecotrin Low Dose] 81 mg PO HS Ferrous Sulfate [Iron (65 MG Elemental)] 325 mg PO TID Cyanocobalamin [Vitamin B-12] 500 mcg PO DAILY rOPINIRole HCL [Requip] 0.25 mg PO BID Melatonin 5 mg PO HS glipiZIDE [Glucotrol] 5 mg PO W/LUNCH calcitrioL [Rocaltrol] 0.25 mcg PO SANTOS Omeprazole [PriLOSEC] 20 mg PO AC-BRKFST Sodium Bicarbonate 650 mg PO BID Clopidogrel [Plavix] 75 mg PO HS Amoxic-Pot Clav 875-125Mg [Augmentin 875-125] 1 each PO Q12HR 7 Days #14 tab Albuterol Inhaler [Ventolin Hfa Inhaler] 1 puff INHALATION Q6HR PRN #1 inh PRN Reason: Shortness Of Breath Or Wheezing Isosorbide Mononitrate ER [Imdur] 60 mg PO BID #60 tab.er.24h Nitroglycerin Sl Tabs [Nitrostat] 0.4 mg SUBLINGUAL Q5M PRN #20 tab PRN Reason: Chest Pain Ranolazine [Ranexa] 500 mg PO Q12HR #60 tab.er.12h Changed Insulin Glargine [Lantus] 30 unit SQ DAILY #0 Discontinued hydrALAZINE HCL 25 mg PO TID Gabapentin [Neurontin] 300 mg PO BID amLODIPine [Norvasc] 5 mg PO DAILY Metoprolol Tartrate [Lopressor] 25 mg PO TID #90 tab Furosemide [Lasix] 40 mg PO BID@0900,1600 #60 tab Discharge Medication List Ergocalciferol (Vitamin D2) [Vitamin D2] 50,000 unit PO Q14D 07/18/17 [History] Simvastatin [Zocor] 40 mg PO HS 07/18/17 [History] Aspirin EC [Ecotrin Low Dose] 81 mg PO HS 02/10/18 [History] Ferrous Sulfate [Iron (65 MG Elemental)] 325 mg PO TID 02/10/18 [History] Cyanocobalamin [Vitamin B-12] 500 mcg PO DAILY 09/23/18 [History] rOPINIRole HCL [Requip] 0.25 mg PO BID 01/09/19 [History] Melatonin 5 mg PO HS 05/22/19 [History] glipiZIDE [Glucotrol] 5 mg PO W/LUNCH 05/22/19 [History] calcitrioL [Rocaltrol] 0.25 mcg PO SANTOS 09/17/19 [History] Omeprazole [PriLOSEC] 20 mg PO AC-BRKFST 09/25/19 [History] Sodium Bicarbonate 650 mg PO BID 03/22/20 [History] Clopidogrel [Plavix] 75 mg PO HS 04/18/20 [History] Albuterol Inhaler [Ventolin Hfa Inhaler] 1 puff INHALATION Q6HR PRN #1 inh 04/21/20 [Rx] Amoxic-Pot Clav 875-125Mg [Augmentin 875-125] 1 each PO Q12HR 7 Days #14 tab 04/21/20 [Rx] Isosorbide Mononitrate ER [Imdur] 60 mg PO BID #60 tab.er.24h 04/21/20 [Rx] Nitroglycerin Sl Tabs [Nitrostat] 0.4 mg SUBLINGUAL Q5M PRN #20 tab 04/21/20 [Rx] Ranolazine [Ranexa] 500 mg PO Q12HR #60 tab.er.12h 04/21/20 [Rx] Gabapentin [Neurontin] 200 mg PO BID cap 04/28/20 [Rx] Insulin Glargine [Lantus] 10 unit SQ HS #1 vial 04/28/20 [Rx] Insulin Glargine [Lantus] 30 unit SQ DAILY #0 04/28/20 [Rx] Metoprolol Tartrate [Lopressor] 25 mg PO BID #60 tab 04/28/20 [Rx] Torsemide [Demadex] 40 mg PO DAILY #30 tab 04/28/20 [Rx] amLODIPine [Norvasc] 10 mg PO DAILY #30 tab 04/28/20 [Rx] hydrALAZINE HCL [Apresoline] 50 mg PO TID #90 tab 04/28/20 [Rx] predniSONE 10 mg PO DAILY 3 Days #3 tab 04/28/20 [Rx] Follow up Appointment(s)/Referral(s): Ritchie Orta MD [STAFF PHYSICIAN] - 05/17/20 9:30 am Yulissa Ivory MD [STAFF PHYSICIAN] - 05/12/20 2:00 pm Garth Sims MD [STAFF PHYSICIAN] - 05/03/20 3:30 pm [facility],Clinic [Primary Care Provider] - 05/04/20 9:00 am Patient Instructions/Handouts: *Surgery [facility] - After Heart Catheterization - Iron Pourer Instructions, After Radial Heart Catheterization (GEN) Activity/Diet/Wound Care/Special Instructions: heart heathy diet activity is limited till you see your doctor Discharge Disposition: HOME SELF-CARE
[2020-04-30] MEDS ORDERED: predniSONE 10 MG TAB PO SCH (09:00)
== END 2020-04-28 15:35 | disposition home or self-care (01) | DRG 246 ==
LOC: EC 22:49 → 3SCARD 04-24 01:42 → 2SICU 04-24 02:04 → 3SCARD 04-25 13:07
PROVIDERS: ADMIT Hospitalist; ATTEND Hospitalist
PROC: 0W993ZZ Drainage of Right Pleural Cavity, Percutaneous Approach (ICD-10-PCS; 2020-04-24)
PROC: 5A09457 Assistance with Respiratory Ventilation, 24-96 Consecutive Hours, Continuous Positive Airway Pressure (ICD-10-PCS; 2020-04-24)
PROC: 4A023N7 Measurement of Cardiac Sampling and Pressure, Left Heart, Percutaneous Approach (ICD-10-PCS; 2020-04-26)
PROC: B2111ZZ Fluoroscopy of Multiple Coronary Arteries using Low Osmolar Contrast (ICD-10-PCS; 2020-04-26)
PROC: 027034Z Dilation of Coronary Artery, One Artery with Drug-eluting Intraluminal Device, Percutaneous Approach (ICD-10-PCS; principal; 2020-04-27 08:20)
DX: I13.2 Hypertensive heart and chronic kidney disease with heart failure and with stage 5 chronic kidney disease, or end stage renal disease (principal); N17.0 Acute kidney failure with tubular necrosis; I21.4 Non-ST elevation (NSTEMI) myocardial infarction; I50.33 Acute on chronic diastolic (congestive) heart failure; J96.21 Acute and chronic respiratory failure with hypoxia; J18.9 Pneumonia, unspecified organism; N18.6 End stage renal disease; N02.8 Recurrent and persistent hematuria with other morphologic changes; J91.8 Pleural effusion in other conditions classified elsewhere; I70.92 Chronic total occlusion of artery of the extremities; J98.11 Atelectasis; F17.200 Nicotine dependence, unspecified, uncomplicated; F32.9 Major depressive disorder, single episode, unspecified; F43.10 Post-traumatic stress disorder, unspecified; I25.10 Atherosclerotic heart disease of native coronary artery without angina pectoris; Z79.4 Long term (current) use of insulin; E78.5 Hyperlipidemia, unspecified; E11.51 Type 2 diabetes mellitus with diabetic peripheral angiopathy without gangrene; E11.22 Type 2 diabetes mellitus with diabetic chronic kidney disease; M54.32 Sciatica, left side; G25.81 Restless legs syndrome; M54.31 Sciatica, right side; G47.00 Insomnia, unspecified; D63.1 Anemia in chronic kidney disease; D50.9 Iron deficiency anemia, unspecified; I65.29 Occlusion and stenosis of unspecified carotid artery; K21.9 Gastro-esophageal reflux disease without esophagitis; E83.89 Other disorders of mineral metabolism; I70.201 Unspecified atherosclerosis of native arteries of extremities, right leg; T50.2X5A Adverse effect of carbonic-anhydrase inhibitors, benzothiadiazides and other diuretics, initial encounter; I08.0 Rheumatic disorders of both mitral and aortic valves; Z79.899 Other long term (current) drug therapy; Z91.041 Radiographic dye allergy status; Z87.01 Personal history of pneumonia (recurrent); Z86.010 Personal history of colon polyps; Z90.49 Acquired absence of other specified parts of digestive tract; Z98.890 Other specified postprocedural states; Z95.820 Peripheral vascular angioplasty status with implants and grafts; Z95.5 Presence of coronary angioplasty implant and graft; Z80.8 Family history of malignant neoplasm of other organs or systems; Z57.4 Occupational exposure to toxic agents in agriculture
CPT/HCPCS: 36415; 71045; 76604; 80048; 80053; 81001; 82945; 83605; 83615; 83735; 83880; 84145; 84157; 84484; 85025; 85610; 85730; 87070; 87205; 88108; 88305; 88341; 88342; 89050; 93005; 93454; 94660; 96365; 96366; 96374; 99291

== ENCOUNTER 2020-05-19 17:34 | Emergency (ER) | payer OTHER ==
--- NOTE | 2020-05-19 18:40 | ED ---
General Adult HPI - General Source: patient, RN notes reviewed Limitations: no limitations <Jai Altman - Last Filed: 05/19/20 18:47> <Philippe Villeda - Last Filed: 05/19/20 19:32> - General Chief complaint: Recheck/Abnormal Lab/Rx Stated complaint: revisit Time Seen by Provider: 05/19/20 17:46 - History of Present Illness Initial comments: 70-year-old male with a complicated past medical history of CAD, diabetes mellitus, GERD, GI bleed, renal disease presents to the emergency department for anemia. Patient has a history of anemia of chronic disease. He reports that today he had an infusion of red blood cells because his hemoglobin was 6. He was then told to go to the ER by his change management administrator to be checked out. Patient denies any symptomology at this time. Denies any blood in stool. Reports that he sentences has dark stools which is chronic because of his iron. Denies abdominal pain.Patient has no other complaints at this time including shortness of breath, chest pain, abdominal pain, nausea or vomiting, headache, or visual changes. (Jai Altman) - Related Data Home Medications Medication Instructions Recorded Confirmed Ergocalciferol (Vitamin D2) 50,000 unit PO Q14D 07/18/17 05/13/20 [Vitamin D2] Simvastatin [Zocor] 40 mg PO HS 07/18/17 05/13/20 Aspirin EC [Ecotrin Low Dose] 81 mg PO HS 02/10/18 05/13/20 Ferrous Sulfate [Iron (65 MG 325 mg PO TID 02/10/18 05/13/20 Elemental)] Cyanocobalamin [Vitamin B-12] 500 mcg PO DAILY 09/23/18 05/13/20 rOPINIRole HCL [Requip] 0.25 mg PO BID 01/09/19 05/13/20 Melatonin 5 mg PO HS 05/22/19 05/13/20 glipiZIDE [Glucotrol] 5 mg PO W/LUNCH 05/22/19 05/13/20 calcitrioL [Rocaltrol] 0.25 mcg PO SANTOS 09/17/19 05/13/20 Omeprazole [PriLOSEC] 20 mg PO AC-BRKFST 09/25/19 05/13/20 Sodium Bicarbonate 650 mg PO BID 03/22/20 05/13/20 Clopidogrel [Plavix] 75 mg PO HS 04/18/20 05/13/20 Previous Rx's Medication Instructions Recorded Albuterol Inhaler [Ventolin Hfa 1 puff INHALATION Q6HR PRN #1 inh 04/21/20 Inhaler] Amoxic-Pot Clav 875-125Mg 1 each PO Q12HR 7 Days #14 tab 04/21/20 [Augmentin 875-125] Isosorbide Mononitrate ER [Imdur] 60 mg PO BID #60 tab.er.24h 04/21/20 Nitroglycerin Sl Tabs [Nitrostat] 0.4 mg SUBLINGUAL Q5M PRN #20 tab 04/21/20 Ranolazine [Ranexa] 500 mg PO Q12HR #60 tab.er.12h 04/21/20 Gabapentin [Neurontin] 200 mg PO BID cap 04/28/20 Insulin Glargine [Lantus] 10 unit SQ HS #1 vial 04/28/20 Insulin Glargine [Lantus] 30 unit SQ DAILY #0 04/28/20 Metoprolol Tartrate [Lopressor] 25 mg PO BID #60 tab 04/28/20 Torsemide [Demadex] 40 mg PO DAILY #30 tab 04/28/20 amLODIPine [Norvasc] 10 mg PO DAILY #30 tab 04/28/20 hydrALAZINE HCL [Apresoline] 50 mg PO TID #90 tab 04/28/20 Allergies Allergy/AdvReac Type Severity Reaction Status Date / Time Iodinated Contrast Media Allergy CAN'T Verified 05/19/20 17:44 TAKE, RENAL DISEASE Iodine and Iodide Containing Allergy CAN'T Verified 05/19/20 17:44 Produc TAKE, RENAL DISEASE Review of Systems ROS Other: All systems not noted in ROS Statement are negative. <Jai Altman P - Last Filed: 05/19/20 18:47> ROS Other: All systems not noted in ROS Statement are negative. <Philippe Villeda - Last Filed: 05/19/20 19:32> ROS Statement: Those systems with pertinent positive or pertinent negative responses have been documented in the HPI. Past Medical History Past Medical History: Coronary Artery Disease (CAD), Chest Pain / Angina, Diabetes Mellitus, GERD/Reflux, GI Bleed, Hyperlipidemia, Hypertension, Pneumon ia, Renal Disease, Vascular Disorder Additional Past Medical History / Comment(s): IDDM type II, lower GI bleed, benign colon polyps, spouse states micro bleeds in intestine are suspected, abdominal distention comes and goes which is nearly daily, partial SBO, chronic renal disease stage IV, iron anemia with iron transfusions (recent R upper chest mediport for infusions), PVD, stable lung nodules, chronic low back pain with bilateral sciatica, RLS, vertigo, insomnia, past agent orange exposure. History of Any Multi-Drug Resistant Organisms: None Reported Past Surgical History: Cholecystectomy, Heart Catheterization Additional Past Surgical History / Comment(s): 03/25/20 R sublclavian mediport, R carotid stent done in [place], EGD/colonoscopyDecember 2016, endoscopic capsule, fx lt wrist -sx re-set, aortagram, bilateral leg revascularizations/stents Past Anesthesia/Blood Transfusion Reactions: No Reported Reaction Additional Past Anesthesia/Blood Transfusion Reaction / Comment(s): Pt has had blood transfusion without reaction. Past Psychological History: Depression, PTSD Smoking Status: Former smoker - Past Family History Father History Unknown: Yes Mother Family Medical History: Cancer Additional Family Medical History / Comment(s): Mother from metastatic cancer pelvic origin. <Jai Altman P - Last Filed: 05/19/20 18:47> General Exam Limitations: no limitations General appearance: alert, in no apparent distress Head exam: Present: atraumatic, normocephalic, normal inspection Eye exam: Present: normal appearance, PERRL, EOMI. Absent: scleral icterus, conjunctival injection, periorbital swelling ENT exam: Present: normal exam, mucous membranes moist Neck exam: Present: normal inspection, full ROM. Absent: tenderness, meningismus, lymphadenopathy Respiratory exam: Present: normal lung sounds bilaterally. Absent: respiratory distress, wheezes, rales, rhonchi, stridor Cardiovascular Exam: Present: regular rate, normal rhythm, normal heart sounds. Absent: systolic murmur, diastolic murmur, rubs, gallop, clicks GI/Abdominal exam: Present: soft, normal bowel sounds. Absent: distended, tenderness, guarding, rebound, rigid Neurological exam: Present: alert <Jai Altman P - Last Filed: 05/19/20 18:47> Course <Philippe Villeda - Last Filed: 05/19/20 19:32> Vital Signs 05/19/20 17:39 Temperature 98.0 F Pulse Rate 88 Respiratory 18 Rate Blood Pressure 141/69 O2 Sat by Pulse 97 Oximetry - Reevaluation(s) Reevaluation #1: 05/19/20 19:31 Medical records reviewed (Philippe Villeda) Reevaluation #2: 05/19/20 19:31 Patient still feeling very weak, informed of results including stool results, renal issues. (Philippe Villeda) Reevaluation #3: 05/19/20 19:31 Questions answered (Philippe Villeda) Medical Decision Making <Jai Altman - Last Filed: 05/19/20 18:47> - Lab Data Result diagrams: 05/19/20 18:22 05/19/20 18:22 <Philippe Villeda - Last Filed: 05/19/20 19:32> - Medical Decision Making Care was signed out to Dr. Villeda Pending laboratory evaluation. (Jai Altman) 70 male DF for evaluation patient will be admitted for evaluation of kidney disease, persistent anemia although improved secondary to transfuse this morning and persistent GI bleed (Philippe Villeda) - Lab Data Lab Results 05/19/20 05/19/20 05/19/20 Range/Units 18:22 18:22 18:45 WBC 9.2 (3.8-10.6) k/uL RBC 2.65 L (4.30-5.90) m/uL Hgb 8.2 L D (13.0-17.5) gm/dL Hct 26.3 L (39.0-53.0) % MCV 99.2 (80.0-100.0) fL MCH 30.8 (25.0-35.0) pg MCHC 31.0 (31.0-37.0) g/dL RDW 18.0 H (11.5-15.5) % Plt Count 413 (150-450) k/uL Neutrophils % 84 % Lymphocytes % 8 % Monocytes % 5 % Eosinophils % 2 % Basophils % 0 % Neutrophils # 7.7 (1.3-7.7) k/uL Lymphocytes # 0.7 L (1.0-4.8) k/uL Monocytes # 0.5 (0-1.0) k/uL Eosinophils # 0.2 (0-0.7) k/uL Basophils # 0.0 (0-0.2) k/uL Hypochromasia Moderate Poikilocytosis Slight Anisocytosis Slight Macrocytosis Slight Sodium 137 (137-145) mmol/L Potassium 3.8 (3.5-5.1) mmol/L Chloride 109 H (98-107) mmol/L Carbon Dioxide 21 L (22-30) mmol/L Anion Gap 7 mmol/L BUN 45 H (9-20) mg/dL Creatinine 3.17 H (0.66-1.25) mg/dL Est GFR (CKD-EPI)AfAm 22 (>60 ml/min/1.73 sqM) Est GFR (CKD-EPI)NonAf 19 (>60 ml/min/1.73 sqM) Glucose 153 H (74-99) mg/dL Calcium 8.5 (8.4-10.2) mg/dL Stool Occult Blood Positive (Negative) Disposition <Jai Altman P - Last Filed: 05/19/20 18:47> Is patient prescribed a controlled substance at d/c from ED?: No <Philippe Villeda - Last Filed: 05/19/20 19:32> Clinical Impression: Symptomatic anemia, Anemia, MICHELLE (acute kidney injury), ARF (acute renal failure), Weakness Disposition: ADMITTED IP TO THIS HOSP Condition: Fair Referrals: [facility],Clinic [Primary Care Provider] - 1-2 days
[2020-05-19 19:03] LABS: Calcium 8.5 mg/dL (8.4-10.2); Potassium 3.8 mmol/L (3.5-5.1)
[2020-05-19 19:09] LABS: Anisocytosis Slight; Basophils % (A) 0 %; Eosinophils # (A) 0.2 k/uL (0-0.7); Eosinophils % (A) 2 %; HCT 26.3 % (39.0-53.0); Hypochromasia Moderate; Lymphocytes # (A) 0.7 k/uL (1.0-4.8); Lymphocytes % (A) 8 %; MCH 30.8 pg (25.0-35.0); MCV 99.2 fL (80.0-100.0); Macrocytosis Slight; Mean Platelet Volume 7.6; Monocytes # (A) 0.5 k/uL (0-1.0); Monocytes % (A) 5 %; Neutrophils # (A) 7.7 k/uL (1.3-7.7); Neutrophils % (A) 84 %; Platelet Count 413 k/uL (150-450); Poikilocytosis Slight; RBC 2.65 m/uL (4.30-5.90); WBC 9.2 k/uL (3.8-10.6)
[2020-05-19 19:14] LABS: HGB 8.2 gm/dL (13.0-17.5)
[2020-05-19] MEDS ORDERED: SODIUM CHLORIDE 0.9% 1,000 ML IV ONE (19:26)
[2020-05-19 20:58] VITALS: BP 144/58; PULSE 78; RESP 17; TEMP 97.8
== END 2020-05-19 21:17 | disposition other institution (70) ==
LOC: EC 17:34 → 1SOBS 19:21 → UNDOADMOB 19:21 → 6NMEDSUR 20:31 → 1SOBS 20:31 → EC 21:17
DX: N17.9 Acute kidney failure, unspecified (principal); I25.119 Atherosclerotic heart disease of native coronary artery with unspecified angina pectoris; K21.9 Gastro-esophageal reflux disease without esophagitis; E78.5 Hyperlipidemia, unspecified; E11.22 Type 2 diabetes mellitus with diabetic chronic kidney disease; I12.9 Hypertensive chronic kidney disease with stage 1 through stage 4 chronic kidney disease, or unspecified chronic kidney disease; N18.4 Chronic kidney disease, stage 4 (severe); D63.1 Anemia in chronic kidney disease; G25.81 Restless legs syndrome; Z79.82 Long term (current) use of aspirin; Z79.02 Long term (current) use of antithrombotics/antiplatelets; Z79.899 Other long term (current) drug therapy; Z79.84 Long term (current) use of oral hypoglycemic drugs; Z91.041 Radiographic dye allergy status; Z95.1 Presence of aortocoronary bypass graft; Z87.19 Personal history of other diseases of the digestive system; Z90.49 Acquired absence of other specified parts of digestive tract; Z87.891 Personal history of nicotine dependence
CPT/HCPCS: 36415; 80048; 85025; 82272; 99285; 96374; 96361; J1642; 36430

== ENCOUNTER 2020-07-13 14:10 | Inpatient (IN) | payer OTHER ==
[2020-07-13] MEDS ORDERED: FUROSEMIDE 10 MG/ML 4 ML VIAL IV STA (14:20)
[2020-07-13] MEDS ORDERED: IPRATROPIUM-ALBUTEROL 3 ML NEB INHALATION STA (14:20)
--- NOTE | 2020-07-13 14:28 | ED ---
SOB HPI - General Chief Complaint: Shortness of Breath Stated Complaint: chest pain/SOB Time Seen by Provider: 07/13/20 14:14 Source: patient, family, RN notes reviewed Mode of arrival: wheelchair Limitations: physical limitation - History of Present Illness Initial Comments: This is a 70-year-old male with a history of COPD and multiple medical problems who presents with complaints of shortness of breath orthopnea and exertional dyspnea past 2 days. He also has peripheral edema this pain worse. He sent here from outpatient for evaluation he did have a sat of 89-91% room air. Cough with clear phlegm no fevers chills or sweats no chest pain or other symptoms MD Complaint: shortness of breath, cough - Related Data Home Medications Medication Instructions Recorded Confirmed Ergocalciferol (Vitamin D2) 50,000 unit PO Q14D 07/18/17 07/13/20 [Vitamin D2] Simvastatin [Zocor] 40 mg PO HS 07/18/17 07/13/20 Aspirin EC [Ecotrin Low Dose] 81 mg PO HS 02/10/18 07/13/20 Ferrous Sulfate [Iron (65 MG 325 mg PO TID 02/10/18 07/13/20 Elemental)] Cyanocobalamin [Vitamin B-12] 500 mcg PO DAILY 09/23/18 07/13/20 rOPINIRole HCL [Requip] 0.25 mg PO BID 01/09/19 07/13/20 glipiZIDE [Glucotrol] 5 mg PO AC-LUNCH 05/22/19 07/13/20 calcitrioL [Rocaltrol] 0.5 mcg PO SANTOS 09/17/19 07/13/20 Omeprazole [PriLOSEC] 20 mg PO AC-BRKFST 09/25/19 07/13/20 Clopidogrel [Plavix] 75 mg PO HS 04/18/20 07/13/20 Albuterol Inhaler [Ventolin Hfa 1 puff INHALATION RT-Q6H PRN 05/19/20 07/13/20 Inhaler] Sennosides/Docusate Sodium [Senna 2 cap PO TID BETWEEN MEALS PRN 05/19/20 07/13/20 Plus 8.6-50 mg Softgel] Sodium Bicarbonate Tab 650 mg PO BID 05/19/20 07/13/20 hydrALAZINE HCL [Apresoline] 25 mg PO TID 05/19/20 07/13/20 Furosemide [Lasix] 80 tab PO DAILY 05/26/20 07/13/20 Furosemide [Lasix] 40 mg PO HS 07/13/20 07/13/20 Insulin Glargine [Lantus] 40 unit SQ HS 07/13/20 07/13/20 Metoprolol Tartrate [Lopressor] 25 mg PO TID 07/13/20 07/13/20 Previous Rx's Medication Instructions Recorded Isosorbide Mononitrate ER [Imdur] 60 mg PO BID #60 tab.er.24h 04/21/20 Nitroglycerin Sl Tabs [Nitrostat] 0.4 mg SUBLINGUAL Q5M PRN #20 tab 04/21/20 Gabapentin [Neurontin] 200 mg PO BID cap 04/28/20 amLODIPine [Norvasc] 10 mg PO DAILY #30 tab 04/28/20 Allergies Allergy/AdvReac Type Severity Reaction Status Date / Time Iodinated Contrast Media AdvReac CAN'T Verified 07/13/20 16:16 TAKE, RENAL DISEASE Iodine and Iodide Containing AdvReac CAN'T Verified 07/13/20 16:16 Produc TAKE, RENAL DISEASE Review of Systems ROS Statement: Those systems with pertinent positive or pertinent negative responses have been documented in the HPI. ROS Other: All systems not noted in ROS Statement are negative. Past Medical History Past Medical History: Coronary Artery Disease (CAD), Chest Pain / Angina, COPD, Diabetes Mellitus, GERD/Reflux, GI Bleed, Hyperlipidemia, Hypertension, Pneumonia, Renal Disease, Vascular Disorder Additional Past Medical History / Comment(s): IDDM type II, lower GI bleed, benign colon polyps, spouse states micro bleeds in intestine are suspected, abdominal distention comes and goes which is nearly daily, partial SBO, chronic renal disease stage IV, iron anemia with iron transfusions (recent R upper chest mediport for infusions), PVD, stable lung nodules, chronic low back pain with bilateral sciatica, RLS, vertigo, insomnia, past agent orange exposure. History of Any Multi-Drug Resistant Organisms: None Reported Past Surgical History: Cholecystectomy, Heart Catheterization Additional Past Surgical History / Comment(s): 03/25/20 R sublclavian mediport, R carotid stent done in [place], EGD/colonoscopyDecember 2017, endoscopic capsule, fx lt wrist -sx re-set, aortagram, bilateral leg revascularizations/stents Past Anesthesia/Blood Transfusion Reactions: No Reported Reaction Additional Past Anesthesia/Blood Transfusion Reaction / Comment(s): Pt has had blood transfusion without reaction. Past Psychological History: Depression, PTSD Smoking Status: Current every day smoker Past Alcohol Use History: None Reported Past Drug Use History: Marijuana - Past Family History Father History Unknown: Yes Mother Family Medical History: Cancer Additional Family Medical History / Comment(s): Mother from metastatic cancer pelvic origin. General Exam - General Exam Comments Initial Comments: This is a well-developed well-nourished awake alert oriented 3 male Limitations: physical limitation General appearance: alert, anxious, in distress Head exam: Present: atraumatic, normocephalic, normal inspection Eye exam: Present: normal appearance, PERRL, EOMI. Absent: scleral icterus, conjunctival injection, periorbital swelling ENT exam: Present: mucous membranes dry Neck exam: Present: normal inspection, full ROM, other. Absent: tenderness, meningismus, lymphadenopathy Respiratory exam: Present: decreased breath sounds (Cardiovascular sounds in the right side a port in the right anterior chest wall). Absent: respiratory distress, wheezes, rales, rhonchi, stridor Cardiovascular Exam: Present: regular rate, normal rhythm, normal heart sounds. Absent: systolic murmur, diastolic murmur, rubs, gallop, clicks GI/Abdominal exam: Present: soft, normal bowel sounds. Absent: distended, tenderness, guarding, rebound, rigid Extremities exam: Present: full ROM, normal capillary refill, pedal edema. Absent: tenderness, joint swelling, calf tenderness Back exam: Present: normal inspection Neurological exam: Present: alert, oriented X3, CN II-XII intact Psychiatric exam: Present: normal affect, normal mood Skin exam: Present: warm, dry, intact, normal color. Absent: rash Course Vital Signs 07/13/20 07/13/20 07/13/20 14:12 14:33 14:41 Temperature 97.5 F L Pulse Rate 82 71 72 Respiratory 26 H Rate Blood Pressure 175/75 O2 Sat by Pulse 97 Oximetry 07/13/20 16:04 Temperature Pulse Rate 80 Respiratory 22 Rate Blood Pressure 150/57 O2 Sat by Pulse 97 Oximetry Medical Decision Making - Medical Decision Making I did discuss findings with the patient family as well as with Dr. Ndiaye. Patient will be admitted Dr. Orta will be consulted - Lab Data Result diagrams: 07/13/20 14:22 07/13/20 14:22 Lab Results 07/13/20 07/13/20 07/13/20 Range/Units 14:22 14:22 14:22 WBC 12.0 H (3.8-10.6) k/uL RBC 2.63 L (4.30-5.90) m/uL Hgb 8.5 L (13.0-17.5) gm/dL Hct 26.0 L (39.0-53.0) % MCV 98.9 (80.0-100.0) fL MCH 32.4 (25.0-35.0) pg MCHC 32.8 (31.0-37.0) g/dL RDW 15.9 H (11.5-15.5) % Plt Count 453 H (150-450) k/uL MPV 7.6 Neutrophils % 86 % Lymphocytes % 6 % Monocytes % 5 % Eosinophils % 1 % Basophils % 0 % Neutrophils # 10.4 H (1.3-7.7) k/uL Lymphocytes # 0.8 L (1.0-4.8) k/uL Monocytes # 0.6 (0-1.0) k/uL Eosinophils # 0.1 (0-0.7) k/uL Basophils # 0.0 (0-0.2) k/uL Hypochromasia Slight Macrocytosis Slight PT 9.5 (9.0-12.0) sec INR 0.9 (<1.2) APTT 27.6 (22.0-30.0) sec D-Dimer 1.93 H (<0.60) mg/L FEU Sodium 137 (137-145) mmol/L Potassium 3.8 (3.5-5.1) mmol/L Chloride 101 (98-107) mmol/L Carbon Dioxide 27 (22-30) mmol/L Anion Gap 9 mmol/L BUN 53 H (9-20) mg/dL Creatinine 3.50 H (0.66-1.25) mg/dL Est GFR (CKD-EPI)AfAm 19 (>60 ml/min/1.73 sqM) Est GFR (CKD-EPI)NonAf 17 (>60 ml/min/1.73 sqM) Glucose 110 H (74-99) mg/dL Plasma Lactic Acid Leobardo (0.7-2.0) mmol/L Calcium 8.9 (8.4-10.2) mg/dL Magnesium 2.1 (1.6-2.3) mg/dL Total Bilirubin 0.3 (0.2-1.3) mg/dL AST 18 (17-59) U/L ALT 11 (4-49) U/L Alkaline Phosphatase 73 (38-126) U/L Creatine Kinase 25 L (55-170) U/L Troponin I (0.000-0.034) ng/mL Total Protein 5.8 L (6.3-8.2) g/dL Albumin 2.9 L (3.5-5.0) g/dL 07/13/20 07/13/20 Range/Units 14:22 14:22 WBC (3.8-10.6) k/uL RBC (4.30-5.90) m/uL Hgb (13.0-17.5) gm/dL Hct (39.0-53.0) % MCV (80.0-100.0) fL MCH (25.0-35.0) pg MCHC (31.0-37.0) g/dL RDW (11.5-15.5) % Plt Count (150-450) k/uL MPV Neutrophils % % Lymphocytes % % Monocytes % % Eosinophils % % Basophils % % Neutrophils # (1.3-7.7) k/uL Lymphocytes # (1.0-4.8) k/uL Monocytes # (0-1.0) k/uL Eosinophils # (0-0.7) k/uL Basophils # (0-0.2) k/uL Hypochromasia Macrocytosis PT (9.0-12.0) sec INR (<1.2) APTT (22.0-30.0) sec D-Dimer (<0.60) mg/L FEU Sodium (137-145) mmol/L Potassium (3.5-5.1) mmol/L Chloride (98-107) mmol/L Carbon Dioxide (22-30) mmol/L Anion Gap mmol/L BUN (9-20) mg/dL Creatinine (0.66-1.25) mg/dL Est GFR (CKD-EPI)AfAm (>60 ml/min/1.73 sqM) Est GFR (CKD-EPI)NonAf (>60 ml/min/1.73 sqM) Glucose (74-99) mg/dL Plasma Lactic Acid Leobardo <0.5 L (0.7-2.0) mmol/L Calcium (8.4-10.2) mg/dL Magnesium (1.6-2.3) mg/dL Total Bilirubin (0.2-1.3) mg/dL AST (17-59) U/L ALT (4-49) U/L Alkaline Phosphatase (38-126) U/L Creatine Kinase (55-170) U/L Troponin I <0.012 (0.000-0.034) ng/mL Total Protein (6.3-8.2) g/dL Albumin (3.5-5.0) g/dL - EKG Data -: EKG Interpreted by Me EKG shows normal: sinus rhythm EKG Comments: Sinus rhythm with occasional PVCs and PACs rate 79 Voice 50 to QRS is 94 QT since QTC 420/490 - Radiology Data Radiology results: report reviewed (Imaging reviewed there is a large right pleural effusion syncope report), image reviewed Disposition Clinical Impression: Pleural effusion, right, Chronic renal failure syndrome, Elevated d-dimer, Chronic anemia, Dyspnea Disposition: ADMITTED IP TO THIS [facility] Condition: Fair Referrals: [facility]inic [Primary Care Provider] - 1-2 days
[2020-07-13 14:46] LABS: Basophils % (A) 0 %; Eosinophils # (A) 0.1 k/uL (0-0.7); Eosinophils % (A) 1 %; HGB 8.5 gm/dL (13.0-17.5); Hypochromasia Slight; Lymphocytes # (A) 0.8 k/uL (1.0-4.8); Lymphocytes % (A) 6 %; MCH 32.4 pg (25.0-35.0); MCHC 32.8 g/dL (31.0-37.0); MCV 98.9 fL (80.0-100.0); Macrocytosis Slight; Mean Platelet Volume 7.6; Monocytes # (A) 0.6 k/uL (0-1.0); Monocytes % (A) 5 %; Neutrophils # (A) 10.4 k/uL (1.3-7.7); Neutrophils % (A) 86 %; Platelet Count 453 k/uL (150-450); RBC 2.63 m/uL (4.30-5.90); RDW 15.9 % (11.5-15.5)
[2020-07-13 14:58] LABS: Albumin 2.9 g/dL (3.5-5.0); Calcium 8.9 mg/dL (8.4-10.2); Magnesium 2.1 mg/dL (1.6-2.3); Potassium 3.8 mmol/L (3.5-5.1); Total Bilirubin 0.3 mg/dL (0.2-1.3); Total Protein 5.8 g/dL (6.3-8.2)
[2020-07-13 15:03] LABS: INR 0.9 (<1.2); Partial Thromboplastin Time 27.6 sec (22.0-30.0); Prothrombin Time 9.5 sec (9.0-12.0)
[2020-07-13 15:11] LABS: D-Dimer 1.93 mg/L FEU (<0.60)
--- NOTE | 2020-07-13 15:12 | XR ---
EXAMINATION TYPE: XR chest 1V portable DATE OF EXAM: 07/13/2020 COMPARISON: Chest x-ray April 24, 2020 HISTORY: Dyspnea. TECHNIQUE: Single frontal view of the chest is obtained. FINDINGS: Stable right internal jugular Mediport catheter. New moderate to large right pleural effusi on. Background chronic parenchymal change. Silhouetting right hemidiaphragm and heart border now pre sent. Osseous structures remain intact. Possible spiculated right perihilar mass or nodule noted on p rior study is obscured on current study IMPRESSION: Recurrent moderate to large sized right pleural effusion and associated right lung compr essive atelectasis on background cardiomegaly and chronic parenchymal change.
[2020-07-13] MEDS ORDERED: ACETAMINOPHEN TAB 325 MG TAB PO PRN (16:32)
[2020-07-13] MEDS ORDERED: NALOXONE 0.4 MG/ML 1 ML VIAL IV PRN (16:32)
[2020-07-13] MEDS ORDERED: SENNOSIDES-DOCUSATE SODIUM 1 EACH TAB PO PRN (16:35)
--- NOTE | 2020-07-13 17:42 | P.CNPUL ---
History of Present Illness Consult date: 07/13/20 Requesting physician: Aida Ndiaye Reason for consult: pleural effusion Chief complaint: Shortness of breath and cough. History of present illness: This is a 70-year-old, known history of COPD, chronic right-sided pleural effusion, coronary artery disease, chronic renal disease stage IV, iron de ficiency anemia, history of diastolic congestive heart failure, history of right upper chest Mediport for iron infusions, history of IgA nephropathy, diabetic nephropathy, patient was seen in the ER with mostly 1 week history of increased shortness of breath, cough, no fever no chills no hemoptysis no chest pain. Upon presentation to the ER, patient was found to have moderate sized right- sided pleural effusion, hence this consult was initiated. BNP was elevated at 4760, otherwise his labs were basically normal except for low hemoglobin of 8.5, his last hemoglobin on 06/23/20 was 8.0. Previous echocardiogram on this patient questioned mitral valve disease, he was found to have inferior hypokinesis, but overall systolic function was unremarkable. I have performed thoracentesis on this patient back in April, and I removed about 1300 mL of fluid which was transudate of in nature. Hence it was cardiac in nature related to chronic congestive heart failure. Review of Systems Constitutional: Denies chills, Denies fever Eyes: denies blurred vision, denies pain Ears, nose, mouth and throat: Denies headache, Denies sore throat Cardiovascular: Reports shortness of breath chronic bipedal edema no chest pain. Respiratory: As noted in HPI. Mostly cough and shortness of breath. Gastrointestinal: Denies abdominal pain, Denies diarrhea, Denies nausea, Denies vomiting Musculoskeletal: Denies myalgias Integumentary: Denies pruritus, Denies rash Neurological: Denies numbness, Denies weakness Psychiatric: Denies anxiety, Denies depression Endocrine: Denies fatigue, Denies weight change Past Medical History Past Medical History: Coronary Artery Disease (CAD), Chest Pain / Angina, COPD, Diabetes Mellitus, GERD/Reflux, GI Bleed, Hyperlipidemia, Hypertension, Pneumonia, Renal Disease, Vascular Disorder Additional Past Medical History / Comment(s): IDDM type II, lower GI bleed, benign colon polyps, spouse states micro bleeds in intestine are suspected, abdominal distention comes and goes which is nearly daily, partial SBO, chronic renal disease stage IV, iron anemia with iron transfusions (recent R upper chest mediport for infusions), PVD, stable lung nodules, chronic low back pain with bilateral sciatica, RLS, vertigo, insomnia, past agent orange exposure. History of Any Multi-Drug Resistant Organisms: None Reported Past Surgical History: Cholecystectomy, Heart Catheterization Additional Past Surgical History / Comment(s): 03/25/20 R sublclavian mediport, R carotid stent done in [place], EGD/colonoscopyDeceer 2016, endoscopic capsule, fx lt wrist -sx re-set, aortagram, bilateral leg revascularizations/stents Past Anesthesia/Blood Transfusion Reactions: No Reported Reaction Additional Past Anesthesia/Blood Transfusion Reaction / Comment(s): Pt has had blood transfusion without reaction. Past Psychological History: Depression, PTSD Smoking Status: Current every day smoker Past Alcohol Use History: None Reported Past Drug Use History: Marijuana - Past Family History Father History Unknown: Yes Mother Family Medical History: Cancer Additional Family Medical History / Comment(s): Mother from metastatic cancer pelvic origin. Medications and Allergies Home Medications Medication Instructions Recorded Confirmed Type Ergocalciferol (Vitamin D2) 50,000 unit PO Q14D 07/18/17 07/13/20 History [Vitamin D2] Simvastatin [Zocor] 40 mg PO HS 07/18/17 07/13/20 History Aspirin EC [Ecotrin Low Dose] 81 mg PO HS 02/10/18 07/13/20 History Ferrous Sulfate [Iron (65 MG 325 mg PO TID 02/10/18 07/13/20 History Elemental)] Cyanocobalamin [Vitamin B-12] 500 mcg PO DAILY 09/23/18 07/13/20 History rOPINIRole HCL [Requip] 0.25 mg PO BID 01/09/19 07/13/20 History glipiZIDE [Glucotrol] 5 mg PO AC-LUNCH 05/22/19 07/13/20 History calcitrioL [Rocaltrol] 0.5 mcg PO SANTOS 09/17/19 07/13/20 History Omeprazole [PriLOSEC] 20 mg PO AC-BRKFST 09/25/19 07/13/20 History Clopidogrel [Plavix] 75 mg PO HS 04/18/20 07/13/20 History Isosorbide Mononitrate ER [Imdur] 60 mg PO BID #60 tab.er.24h 04/21/20 07/13/20 Rx Nitroglycerin Sl Tabs [Nitrostat] 0.4 mg SUBLINGUAL Q5M PRN #20 tab 04/21/20 07/13/20 Rx Gabapentin [Neurontin] 200 mg PO BID cap 04/28/20 07/13/20 Rx amLODIPine [Norvasc] 10 mg PO DAILY #30 tab 04/28/20 07/13/20 Rx Albuterol Inhaler [Ventolin Hfa 1 puff INHALATION RT-Q6H PRN 05/19/20 07/13/20 History Inhaler] Sennosides/Docusate Sodium [Senna 2 cap PO TID BETWEEN MEALS PRN 05/19/20 07/13/20 History Plus 8.6-50 mg Softgel] Sodium Bicarbonate Tab 650 mg PO BID 05/19/20 07/13/20 History hydrALAZINE HCL [Apresoline] 25 mg PO TID 05/19/20 07/13/20 History Furosemide [Lasix] 80 tab PO DAILY 05/26/20 07/13/20 History Furosemide [Lasix] 40 mg PO HS 07/13/20 07/13/20 History Insulin Glargine [Lantus] 40 unit SQ HS 07/13/20 07/13/20 History Metoprolol Tartrate [Lopressor] 25 mg PO TID 07/13/20 07/13/20 History Allergies Allergy/AdvReac Type Severity Reaction Status Date / Time Iodinated Contrast Media AdvReac CAN'T Verified 07/13/20 16:16 TAKE, RENAL DISEASE Iodine and Iodide Containing AdvReac CAN'T Verified 07/13/20 16:16 Produc TAKE, RENAL DISEASE Physical Exam Vitals: Vital Signs Temp Pulse Resp BP Pulse Ox 07/13/20 17:00 67 20 142/56 97 07/13/20 16:04 80 22 150/57 97 07/13/20 14:41 72 07/13/20 14:33 71 07/13/20 14:12 97.5 F L 82 26 H 175/75 97 Intake and Output 07/13/20 07/13/20 07/13/20 06:59 14:59 22:59 Other: Weight 90.718 kg GENERAL EXAM: Alert, very pleasant, 70-year-old white male, resting in bed, on 3 L nasal cannula. Head: Atraumatic, normocephalic. EENT: PERRLA, EOMI, neck is, chronic masses, no JVD. CHEST: No chest wall deformity. Symmetrical expansion. LUNGS: Diminished breath sounds and dullness at the right lung base. Crackles at the left lung base.. CVS: Regular rate and rhythm, normal S1 and S2, no gallops, 2/6 systolic murmur throughout the precordium. ABDOMEN: Soft, nontender. No hepatosplenomegaly, normal bowel sounds, no guarding or rigidity. EXTREMITIES: No clubbing, 2+ bipedal edema., no cyanosis, 2+ pulses and upper and lower extremities. MUSCULOSKELETAL: Muscle strength and tone normal. SPINE: No scoliosis or deformity SKIN: No rashes CENTRAL NERVOUS SYSTEM: Alert and oriented -3. No focal deficits, tone is normal in all 4 extremities. PSYCHIATRIC: Alert and oriented -3. Appropriate affect. Intact judgment and insight. Results - Laboratory Findings CBC and BMP: 07/13/20 14:22 07/13/20 14:22 PT/INR, D-dimer PT 9.5 sec (9.0-12.0) 07/13/20 14:22 INR 0.9 (<1.2) 07/13/20 14:22 D-Dimer 1.93 mg/L FEU (<0.60) H 07/13/20 14:22 Abnormal lab findings: Abnormal Labs 07/13/20 07/13/20 07/13/20 14:22 14:22 14:22 WBC 12.0 H RBC 2.63 L Hgb 8.5 L Hct 26.0 L RDW 15.9 H Plt Count 453 H Neutrophils # 10.4 H Lymphocytes # 0.8 L D-Dimer 1.93 H BUN 53 H Creatinine 3.50 H Glucose 110 H Plasma Lactic Acid Leobardo Creatine Kinase 25 L Total Protein 5.8 L Albumin 2.9 L 07/13/20 14:22 WBC RBC Hgb Hct RDW Plt Count Neutrophils # Lymphocytes # D-Dimer BUN Creatinine Glucose Plasma Lactic Acid Leobardo <0.5 L Creatine Kinase Total Protein Albumin - Diagnostic Findings Chest x-ray: image reviewed (As noted in HPI.) Assessment and Plan Assessment: Acute on chronic hypoxic respiratory failure secondary to congestive heart failure suspected diastolic dysfunction Right pleural effusion secondary to acute on chronic diastolic congestive heart failure. History of underlying COPD, presently inactive. Chronic kidney disease stage IV, patient is known to have diabetic nephropathy and possibly IgA nephropathy. Insulin-dependent diabetes. Chronic iron deficiency anemia Benign essential hypertension with hypertensive nephropathy. Peripheral vessel occlusive disease and previous intervention for total occlusion of the right sfa and PTCA and stenting of the left SFA Carotid artery disease and previous stenting. Recommendation: Continue oxygen. Continue diuretics. Ultrasound of the chest was ordered. Resume home meds and bronchodilators. No need for thoracentesis at this point, however if the patient does not improve with diuretics, will definitely consider thoracentesis. We'll continue to follow. Patient was evaluated in the ER before he was admitted to the cardiac floor. We will reassess chest x-ray in a.m. And will also assess ultrasound of the chest. Time with Patient: Greater than 30
[2020-07-13] MEDS ORDERED: ALBUTEROL NEBULIZED 2.5 MG/3 ML INHALATION PRN (19:42)
[2020-07-13] MEDS ORDERED: HYDROmorphone 0.5 MG/0.5 ML SYRINGE IVP PRN (19:43)
[2020-07-13] MEDS: IPRATROPIUM-ALBUTEROL 3 ML NEB INHALATION SCH (19:51)
[2020-07-13] MEDS ORDERED: FUROSEMIDE 40 MG TAB PO SCH (21:00)
[2020-07-13 22:09] LABS: Glucose,Whole Blood 137 mg/dL (75-99)
[2020-07-13] MEDS: FERROUS SULFATE 325 MG TAB PO SCH (22:14)
[2020-07-13] MEDS: hydrALAZINE HCL 25 MG TAB PO SCH (22:14)
[2020-07-13] MEDS: ATORVASTATIN 20 MG TAB PO SCH (22:14)
[2020-07-13] MEDS: HYDROcodone/APAP 5-325MG 1 EACH TAB PO PRN (22:15)
[2020-07-13] MEDS: SODIUM BICARBONATE TAB 650 MG TAB PO SCH (22:15)
[2020-07-13] MEDS: ASPIRIN 81 MG PO SCH (22:15)
[2020-07-13] MEDS: CLOPIDOGREL 75 MG TAB PO SCH (22:16)
[2020-07-13] MEDS: HEPARIN SODIUM,PORCINE 5,000 UNIT/ML 1 ML VIAL SQ SCH (22:16)
[2020-07-13] MEDS: ISOSORBIDE MONONITRATE ER 60 MG TAB.ER.24H PO SCH (22:16)
[2020-07-13] MEDS: GABAPENTIN 100 MG CAP PO SCH (22:16)
[2020-07-13] MEDS: METOPROLOL TARTRATE 25 MG TAB PO SCH (22:16)
[2020-07-13] MEDS: INSULIN DETEMIR (LEVEMIR) 100 UNIT/ML SYR SQ SCH (22:18)
--- NOTE | 2020-07-13 23:03 | HP ---
HISTORY AND PHYSICAL CHIEF COMPLAINT: Shortness of breath. HISTORY OF PRESENT ILLNESS: This 70-year-old gentleman with a past medical history of multiple medical problems, including CAD, COPD, history of diabetes mellitus, GERD, hypertension and hyperlipidemia, was recently admitted to [facility] with CHF, acute exacerbation, with acute hypoxic respiratory failure. The patient also has renal failure which was thought to be worsening with an element of cardiorenal syndrome. Peritoneal dialysis was being thought of at that time. Currently the patient is complaining of increasing shortness of breath. The patient is followed by Dr. Myles in [facility] in the outpatient setting. Because of the increasing shortness of breath, the patient came to [facility] and was admitted for further evaluation and treatment. In the ER evaluation, significant amount of left pleural effusion was noted. There is no history of any fever, rigor or chills. No history of headache, loss of consciousness, seizures. PAST MEDICAL HISTORY: History of CAD, history of CHF, diabetes mellitus, GERD, history of renal failure. HOME MEDICATIONS: Home medications are reviewed and include Requip, apresoline, Glucotrol, Rocaltrol, Norvasc, sodium bicarb, Zocor, Senna, Prilosec, Nitrostat, Lopressor, Imdur, Lantus, Neurontin, Lasix, iron, vitamin D2, vitamin B12, Plavix, Ecotrin, Ventolin. Doses are reviewed. ALLERGIES: IODINATED CONTRAST DYES. FAMILY HISTORY: History of cancer, metastatic cancer, pelvic origin. SOCIAL HISTORY: Occasional THC, previous history of smoking. REVIEW OF SYSTEMS: ENT: Diminished hearing. Diminished vision. CARDIOVASCULAR SYSTEM: As mentioned earlier. RESPIRATORY SYSTEM: As mentioned earlier. GI: No nausea, vomiting. : No dysuria or retention. NERVOUS SYSTEM: No numbness, weakness. ALLERGY/IMMUNOLOGY: No asthma, hayfever. MUSCULOSKELETAL: As mentioned earlier. HEMATOLOGY/ONCOLOGY: No history of anemia. ENDOCRINE: As mentioned earlier. CONSTITUTIONAL: As mentioned earlier. DERMATOLOGY: Negative. RHEUMATOLOGY: Negative. PSYCHIATRY: As mentioned earlier. PHYSICAL EXAMINATION: Patient alert and oriented x2. Pulse 70, blood pressure 172/77, respiration 20, temperature normal, pulse ox 96% on 2 L. HEENT: Conjunctivae normal. Oral mucosa moist. NECK: No jugular venous distention. No carotid bruit. No lymph node enlargement. CARDIOVASCULAR SYSTEM: S1, S2 muffled. RESPIRATORY SYSTEM: Breath sounds diminished at the bases. A few scattered rhonchi and crackles. ABDOMEN: Soft, obese, non-tender. No mass palpable. LEGS: No edema. No swelling. NERVOUS SYSTEM: Higher functions as mentioned earlier. Moves all 4 limbs. No focal motor or sensory deficit. LYMPHATICS: No lymph node palpable in neck, axillae or groin. SKIN: No ulcer, rash, bleeding. JOINTS: No active deforming arthropathy. LABS: WBC 12, hemoglobin is 8.5. D-dimer is 1.93 and creatinine is 3.50. COVID-19 is negative. ASSESSMENT: 1. Shortness of breath, possibly secondary to right pleural effusion, possibly secondary to congestive heart failure, acute exacerbation, with acute on chronic diastolic dysfunction. 2. Renal failure, possibly chronic kidney disease, stage 3. 3. Elevated D-dimer. 4. History of chronic obstructive pulmonary disease. 5. History of coronary artery disease. 6. Diabetes mellitus, type 2. 7. Gastroesophageal reflux disease. 8. History of gastrointestinal bleed. 9. Hypertension. 10.Hyperlipidemia. 11.History of pneumonia. 12.History of vascular disorder. 13.History of benign colonic polyps. 14.History of right upper chest Mediport for infusions. 15.History of peripheral vascular disease. 16.History of restless legs syndrome. 17.History of depression. 18.History of post-traumatic stress disorder. 19.History of nicotine dependence. 20.History of tetrahydrocannabinol. 21.Obesity with body mass index of 31.3. 22.FULL CODE. RECOMMENDATIONS AND DISCUSSION: In this 70-year-old gentleman who presented with multiple complex medical issues, we will monitor the patient closely, continue the current medications, continue with symptomatic treatment. Resume the home medications. Will diurese the patient and will consult Cardiology and Nephrology as well as Dr. Orta for possible thoracocentesis. Ultrasound will be ordered. Home medications will be ordered and we will hold the nephrotoxic medications. Prognosis guarded because of multiple complex medical issues. Further recommendations to follow. A copy of this dictation is being forwarded to Dr. Myles, who is the primary physician. MMODL / IJN: [id number] / [facility]
[2020-07-13] MEDS: FUROSEMIDE 10 MG/ML 4 ML VIAL IV SCH (23:30)
[2020-07-14] MEDS: IPRATROPIUM-ALBUTEROL 3 ML NEB INHALATION SCH ×4 (02:45→19:12)
[2020-07-14 06:14] LABS: Glucose,Whole Blood 280 mg/dL (75-99)
[2020-07-14] MEDS: PANTOPRAZOLE 40 MG TABLET PO SCH (06:37)
[2020-07-14] MEDS ORDERED: ERGOCALCIFEROL 50,000 UNIT CAP PO SCH (09:00)
[2020-07-14] MEDS ORDERED: FUROSEMIDE 40 MG TAB PO SCH (09:00)
[2020-07-14] MEDS: FUROSEMIDE 10 MG/ML 4 ML VIAL IV SCH ×4 (09:21→23:09)
[2020-07-14] MEDS: FERROUS SULFATE 325 MG TAB PO SCH ×3 (09:57→20:49)
[2020-07-14] MEDS: CYANOCOBALAMIN 500 MCG TAB PO SCH (09:57)
[2020-07-14] MEDS: SODIUM BICARBONATE TAB 650 MG TAB PO SCH (09:57)
[2020-07-14] MEDS: METOPROLOL TARTRATE 25 MG TAB PO SCH ×3 (09:57→20:50)
[2020-07-14] MEDS: hydrALAZINE HCL 25 MG TAB PO SCH ×3 (09:57→20:50)
[2020-07-14] MEDS: ISOSORBIDE MONONITRATE ER 60 MG TAB.ER.24H PO SCH ×2 (09:58→20:49)
[2020-07-14] MEDS: GABAPENTIN 100 MG CAP PO SCH ×2 (09:58→20:48)
[2020-07-14] MEDS: amLODIPine 10 MG TAB PO SCH (09:58)
[2020-07-14] MEDS: HEPARIN SODIUM,PORCINE 5,000 UNIT/ML 1 ML VIAL SQ SCH ×2 (09:58→20:49)
[2020-07-14 09:59] LABS: Calcium 8.6 mg/dL (8.4-10.2); Potassium 4.4 mmol/L (3.5-5.1)
--- NOTE | 2020-07-14 11:12 | US ---
EXAMINATION TYPE: US chest DATE OF EXAM: 07/14/2020 COMPARISON: XR, US CLINICAL HISTORY: poss thora. Pleural effusion, possible thoracentesis. TECHNIQUE: Targeted ultrasound of the posterior lower bilateral hemithoraces EXAM MEASUREMENTS: Right Pleural Effusion pocket size: 12.02 cm Right skin surface to fluid distance: 3.94 cm Left Pleural Effusion pocket size: No fluid seen Right side marked for possible thoracentesis outside the dept. Left side NOT marked for possible thoracentesis outside the dept. Pulmonologists are able to review the images in the patient?s EMR. IMPRESSIONS: As above
[2020-07-14 11:35] LABS: Basophils % (A) 0 %; Eosinophils # (A) 0.1 k/uL (0-0.7); Eosinophils % (A) 0 %; HCT 27.9 % (39.0-53.0); HGB 8.3 gm/dL (13.0-17.5); Hypochromasia Marked; Lymphocytes # (A) 0.5 k/uL (1.0-4.8); Lymphocytes % (A) 5 %; MCH 30.8 pg (25.0-35.0); MCHC 29.9 g/dL (31.0-37.0); MCV 103.1 fL (80.0-100.0); Macrocytosis Moderate; Mean Platelet Volume 7.6; Monocytes # (A) 0.6 k/uL (0-1.0); Monocytes % (A) 5 %; Neutrophils # (A) 10.2 k/uL (1.3-7.7); Neutrophils % (A) 89 %; Platelet Count 482 k/uL (150-450); RBC 2.71 m/uL (4.30-5.90); RDW 15.9 % (11.5-15.5); WBC 11.4 k/uL (3.8-10.6)
[2020-07-14 12:05] LABS: Glucose,Whole Blood 260 mg/dL (75-99)
--- NOTE | 2020-07-14 12:33 | XR ---
EXAMINATION TYPE: XR chest 1V portable DATE OF EXAM: 07/14/2020 CLINICAL HISTORY: Post right thoracentesis. TECHNIQUE: Single AP portable upright view of the chest is obtained. COMPARISON: Chest x-ray from one day earlier and older studies. FINDINGS: Stable right internal jugular Mediport catheter. Persistent right mid to basilar opacity. No right-sided pneumothorax after thoracentesis. Background chronic parenchymal change. Faint reticul onodular opacities left mid to lower lung better seen on current study. Silhouetting right heart bord er and hemidiaphragm remain present. Osseous structures are intact. IMPRESSION: No pneumothorax after right-sided thoracentesis. Slight improvement in right-sided pleura l fluid collection.
--- NOTE | 2020-07-14 12:55 | P.CRDCN ---
History of Present Illness Consult date: 07/14/20 History of present illness: CHIEF COMPLAINT: CHF HISTORY OF PRESENT ILLNESS: This is a 70-year old male with a past medical h istory significant for coronary artery disease, carotid stenosis, peripheral arterial disease, hypertension, hyperlipidemia, diabetes mellitus, COPD, and chronic kidney disease. Patient follows in the office with Dr. Sims. We have been asked to see the patient in consultation for CHF. Patient examined this morning at the bedside. Patient states he has been feeling short of breath over the past couple weeks. He states his shortness of breath became so severe yesterday he came to the emergency room for further evaluation. He denies chest pain or pressure. Patient had an x-ray performed revealing moderate to large right sided pleural effusion. He was started on IV Lasix. Patient states he is still short of breath this morning. Patient had an echocardiogram performed in March 2020 revealing EF 50-55%, mild aortic regurgitation and mild mitral regurgitation. Patient underwent cardiac catheterization on 04/27/2020 with PCI to the ostial PDA branch of the RCA. DIAGNOSTICS: EKG reveals sinus rhythm with PVCs Chest xray moderate to large right-sided pleural effusion Laboratory data: WBC 11.4. Hemoglobin 8.3. Platelet count 482. Sodium 138. Potassium 4.4. BUN 57. Creatinine 3.82. Current home cardiac medications include hydralazine 25 mg 3 times a day, Norvasc 10 mg daily, Zocor 40 g daily, metoprolol 25 mg 3 times a day, Imdur 60 mg twice a day, Lasix 40 mg at night and 80 mg in the morning, Plavix 35 mg daily and aspirin 81 mg daily REVIEW OF SYSTEMS: At the time of my exam: CONSTITUTIONAL: Denies fever or chills. HEENT: Denies blurred vision, vision changes, or eye pain. Denies hemoptysis CARDIOVASCULAR: Denies chest pain, orthopnea, PND or palpitations RESPIRATORY: Reports shortness of breath. GASTROINTESTINAL: Denies abdominal pain. Denies nausea or vomiting. HEMATOLOGIC: Denies bleeding disorders. GENITOURINARY: Denies any blood in urine. SKIN: Denies pruitis. Denies rash. PHYSICAL EXAM: VITAL SIGNS: Reviewed. GENERAL: Well-developed in no acute distress. HEENT: Head is normocephalic. Pupils are equal, round. Sclerae anicteric. Mucous membranes of the mouth are moist. Neck supple. No JVD or thyromegaly LUNGS: Respirations even and unlabored. Lungs diminished HEART: Regular rate and rhythm. S1 and S2 heard. ABDOMEN: Soft. Nondistended. Nontender. EXTREMITIES: Normal range of motion. No clubbing or cyanosis. Peripheral pulses intact. 2+ bilateral lower extremity edema NEUROLOGIC: Awake and alert. Oriented x 3. ASSESSMENT: Acute exacerbation of chronic diastolic heart failure, EF 5055% Moderate to large right pleural effusion History of thoracentesis in April 2020 with removal of 1300 mL Coronary artery disease with recent PCI of ostial PDA branch of the RCA, April 2020 Carotid stenosis with previous right carotid stenting Peripheral arterial disease with previous bilateral revascularization with stents Hypertension Hyperlipidemia Diabetes mellitus COPD Chronic kidney disease PLAN: Resume home cardiac medications Continue IV lasix Monitor kidney function Daily weights Accurate I&O Pulmonary following. Possible thoracentesis if patient's shortness of breath does not improve Further recommendations pending patient's course Nurse practitioner note has been reviewed by physician. Signing provider agrees with the documented findings, assessment, and plan of care. Past Medical History Past Medical History: Coronary Artery Disease (CAD), Chest Pain / Angina, COPD, Diabetes Mellitus, GERD/Reflux, GI Bleed, Hyperlipidemia, Hypertension, Pneumonia, Renal Disease, Vascular Disorder Additional Past Medical History / Comment(s): IDDM type II, lower GI bleed, benign colon polyps, spouse states micro bleeds in intestine are suspected, abdominal distention comes and goes which is nearly daily, partial SBO, chronic renal disease stage IV, iron anemia with iron transfusions (recent R upper chest mediport for infusions), PVD, stable lung nodules, chronic low back pain with bilateral sciatica, RLS, vertigo, insomnia, past agent orange exposure. History of Any Multi-Drug Resistant Organisms: None Reported Past Surgical History: Cholecystectomy, Heart Catheterization Additional Past Surgical History / Comment(s): 03/25/20 R sublclavian mediport, R carotid stent done in [place], EGD/colonoscopyDecember 2016, endoscopic capsule, fx lt wrist -sx re-set, aortagram, bilateral leg revascularizations/stents Past Anesthesia/Blood Transfusion Reactions: No Reported Reaction Additional Past Anesthesia/Blood Transfusion Reaction / Comment(s): Pt has had blood transfusion without reaction. Past Psychological History: Depression, PTSD Smoking Status: Current every day smoker Past Alcohol Use History: None Reported Past Drug Use History: Marijuana - Past Family History Father History Unknown: Yes Mother Family Medical History: Cancer Additional Family Medical History / Comment(s): Mother from metastatic cancer pelvic origin. Medications and Allergies Home Medications Medication Instructions Recorded Confirmed Type Ergocalciferol (Vitamin D2) 50,000 unit PO Q14D 07/18/17 07/13/20 History [Vitamin D2] Simvastatin [Zocor] 40 mg PO HS 07/18/17 07/13/20 History Aspirin EC [Ecotrin Low Dose] 81 mg PO HS 02/10/18 07/13/20 History Ferrous Sulfate [Iron (65 MG 325 mg PO TID 02/10/18 07/13/20 History Elemental)] Cyanocobalamin [Vitamin B-12] 500 mcg PO DAILY 09/23/18 07/13/20 History rOPINIRole HCL [Requip] 0.25 mg PO BID 01/09/19 07/13/20 History glipiZIDE [Glucotrol] 5 mg PO AC-LUNCH 05/22/19 07/13/20 History calcitrioL [Rocaltrol] 0.5 mcg PO SANTOS 09/17/19 07/13/20 History Omeprazole [PriLOSEC] 20 mg PO AC-BRKFST 09/25/19 07/13/20 History Clopidogrel [Plavix] 75 mg PO HS 04/18/20 07/13/20 History Isosorbide Mononitrate ER [Imdur] 60 mg PO BID #60 tab.er.24h 04/21/20 07/13/20 Rx Nitroglycerin Sl Tabs [Nitrostat] 0.4 mg SUBLINGUAL Q5M PRN #20 tab 04/21/20 07/13/20 Rx Gabapentin [Neurontin] 200 mg PO BID cap 04/28/20 07/13/20 Rx amLODIPine [Norvasc] 10 mg PO DAILY #30 tab 04/28/20 07/13/20 Rx Albuterol Inhaler [Ventolin Hfa 1 puff INHALATION RT-Q6H PRN 05/19/20 07/13/20 History Inhaler] Sennosides/Docusate Sodium [Senna 2 cap PO TID BETWEEN MEALS PRN 05/19/20 07/13/20 History Plus 8.6-50 mg Softgel] Sodium Bicarbonate Tab 650 mg PO BID 05/19/20 07/13/20 History hydrALAZINE HCL [Apresoline] 25 mg PO TID 05/19/20 07/13/20 History Furosemide [Lasix] 80 tab PO DAILY 05/26/20 07/13/20 History Furosemide [Lasix] 40 mg PO HS 07/13/20 07/13/20 History Insulin Glargine [Lantus] 40 unit SQ HS 07/13/20 07/13/20 History Metoprolol Tartrate [Lopressor] 25 mg PO TID 07/13/20 07/13/20 History Allergies Allergy/AdvReac Type Severity Reaction Status Date / Time Iodinated Contrast Media AdvReac CAN'T Verified 07/13/20 16:16 TAKE, RENAL DISEASE Iodine and Iodide Containing AdvReac CAN'T Verified 07/13/20 16:16 Produc TAKE, RENAL DISEASE Physical Exam Vitals: Vital Signs Temp Pulse Pulse Resp BP BP Pulse Ox 07/14/20 11:58 18 93 L 07/14/20 11:40 90 18 143/64 95 07/14/20 11:30 99 07/14/20 11:20 5 L 85 L 07/14/20 11:15 84 07/14/20 11:00 84 92 L 07/14/20 08:00 97.9 F 83 24 142/46 90 L 07/14/20 04:00 98.0 F 79 20 135/65 95 07/14/20 02:55 80 07/14/20 02:49 80 07/14/20 00:00 97.9 F 83 22 157/67 95 07/13/20 21:13 78 16 147/79 98 07/13/20 19:59 78 18 07/13/20 19:51 76 07/13/20 19:01 70 20 172/77 96 07/13/20 18:00 70 20 129/46 97 07/13/20 17:00 67 20 142/56 97 07/13/20 16:59 97.9 F 77 35 H 157/69 96 07/13/20 16:04 80 22 150/57 97 07/13/20 14:41 72 07/13/20 14:33 71 07/13/20 14:12 97.5 F L 82 26 H 175/75 97 Intake and Output 07/13/20 07/14/20 07/14/20 22:59 06:59 14:59 Intake Total 120 120 Output Total 300 225 Balance 120 -300 -105 Intake: Oral 120 120 Output: Urine 300 225 Other: Voiding Method Toilet # Voids 1 Weight 90.718 kg 90.5 kg Results 07/14/20 10:42 07/14/20 09:15 Cardiac Enzymes 07/13/20 07/13/20 Range/Units 14:22 14:22 AST 18 (17-59) U/L Troponin I <0.012 (0.000-0.034) ng/mL Coagulation 07/13/20 Range/Units 14:22 PT 9.5 (9.0-12.0) sec APTT 27.6 (22.0-30.0) sec CBC 07/13/20 07/14/20 Range/Units 14:22 10:42 WBC 12.0 H 11.4 H (3.8-10.6) k/uL RBC 2.63 L 2.71 L (4.30-5.90) m/uL Hgb 8.5 L 8.3 L (13.0-17.5) gm/dL Hct 26.0 L 27.9 L (39.0-53.0) % Plt Count 453 H 482 H (150-450) k/uL Comprehensive Metabolic Panel 07/13/20 07/14/20 Range/Units 14:22 09:15 Sodium 137 138 (137-145) mmol/L Potassium 3.8 4.4 (3.5-5.1) mmol/L Chloride 101 101 (98-107) mmol/L Carbon Dioxide 27 30 (22-30) mmol/L BUN 53 H 57 H (9-20) mg/dL Creatinine 3.50 H 3.82 H (0.66-1.25) mg/dL Glucose 110 H 243 H (74-99) mg/dL Calcium 8.9 8.6 (8.4-10.2) mg/dL AST 18 (17-59) U/L ALT 11 (4-49) U/L Alkaline Phosphatase 73 (38-126) U/L Total Protein 5.8 L (6.3-8.2) g/dL Albumin 2.9 L (3.5-5.0) g/dL Current Medications Generic Name Dose Route Start Last Admin Trade Name Freq PRN Reason Stop Dose Admin Acetaminophen 650 mg 07/13/20 16:32 Acetaminophen Tab 325 Mg Tab PO Q6HR PRN Mild Pain or Fever > 100.5 Hydrocodone Bitart/Acetaminophen 1 each 07/13/20 19:43 07/13/20 22:15 Hydrocodone/Apap 5-325mg 1 Each Tab PO 1 each Q6HR PRN Administration Pain Albuterol Sulfate 2.5 mg 07/13/20 19:42 Albuterol Nebulized 2.5 Mg/3 Ml INHALATION RT-Q6H PRN Shortness Of Breath Or Wheezing Albuterol/Ipratropium 3 ml 07/13/20 20:00 07/14/20 11:00 Ipratropium-Albuterol 3 Ml Neb INHALATION 3 ml RT-Q6H [facility] Administration Amlodipine Besylate 10 mg 07/14/20 09:00 07/14/20 09:58 Amlodipine 10 Mg Tab PO 10 mg DAILY [facility] Administration Aspirin 81 mg 07/13/20 21:00 07/13/20 22:15 Aspirin 81 Mg PO 81 mg HS [facility] Administration Atorvastatin Calcium 20 mg 07/13/20 21:00 07/13/20 22:14 Atorvastatin 20 Mg Tab PO 20 mg HS [facility] Administration Calcitriol 0.5 mcg 07/17/20 09:00 Calcitriol 0.25 Mcg Cap PO SANTOS [facility] Clopidogrel Bisulfate 75 mg 07/13/20 21:00 07/13/20 22:16 Clopidogrel 75 Mg Tab PO 75 mg HS [facility] Administration Cyanocobalamin 500 mcg 07/14/20 09:00 07/14/20 09:57 Cyanocobalamin 500 Mcg Tab PO 500 mcg DAILY [facility] Administration Ergocalciferol 50,000 unit 07/14/20 09:00 07/14/20 09:58 Ergocalciferol 50,000 Unit Cap PO 50,000 unit Q14D [facility] Administration Ferrous Sulfate 325 mg 07/13/20 22:00 07/14/20 09:57 Ferrous Sulfate 325 Mg Tab PO 325 mg TID [facility] Administration Furosemide 40 mg 07/14/20 00:00 07/14/20 09:55 Furosemide 10 Mg/Ml 4 Ml Vial IV 40 mg Q8HR [facility] Administration Gabapentin 200 mg 07/13/20 21:00 11/26/20 09:58 Gabapentin 100 Mg Cap PO 200 mg BID [facility] Administration Glipizide 5 mg 07/14/20 12:30 Glipizide 5 Mg Tab PO AC-LUNCH [facility] Heparin Sodium (Porcine) 5,000 unit 07/13/20 21:00 07/14/20 09:58 Heparin Sodium,Porcine 5,000 Unit/Ml 1 Ml Vial SQ 5,000 unit Q12HR [facility] Administration Hydralazine HCl 25 mg 07/13/20 22:00 07/14/20 09:57 Hydralazine Hcl 25 Mg Tab PO 25 mg TID [facility] Administration Hydromorphone HCl 0.5 mg 07/13/20 19:43 Hydromorphone 0.5 Mg/0.5 Ml Syringe IVP Q6HR PRN Severe Pain Insulin Detemir 40 unit 07/13/20 21:00 07/13/20 22:18 Insulin Detemir (Levemir) 100 Unit/Ml Syr SQ Not Given HS [facility] Isosorbide Mononitrate 60 mg 07/13/20 21:00 07/14/20 09:58 Isosorbide Mononitrate Er 60 Mg Tab.Er.24h PO 60 mg BID [facility] Administration Metoprolol Tartrate 25 mg 07/13/20 22:00 07/14/20 09:57 Metoprolol Tartrate 25 Mg Tab PO 25 mg TID [facility] Administration Naloxone HCl 0.2 mg 07/13/20 16:32 Naloxone 0.4 Mg/Ml 1 Ml Vial IV Q2M PRN Opioid Reversal Nitroglycerin 0.4 mg 07/13/20 16:35 Nitroglycerin Sl Tabs 0.4 Mg Tab SUBLINGUAL Q5M PRN Chest Pain Pantoprazole Sodium 40 mg 07/14/20 07:30 07/14/20 06:37 Pantoprazole 40 Mg Tablet PO 40 mg AC-BRKFST [facility] Administration Ropinirole HCl 0.25 mg 07/13/20 21:00 07/14/20 09:58 Ropinirole Hcl 0.25 Mg Tab PO 0.25 mg BID [facility] Administration Senna/Docusate Sodium 2 each 07/13/20 16:35 Sennosides-Docusate Sodium 1 Each Tab PO TID BETWEEN MEALS PRN Constipation Sodium Bicarbonate 650 mg 07/13/20 21:00 07/14/20 09:57 Sodium Bicarbonate Tab 650 Mg Tab PO 650 mg BID [facility] Administration Intake and Output 07/13/20 07/14/20 07/14/20 22:59 06:59 14:59 Intake Total 120 120 Output Total 300 225 Balance 120 -300 -105 Intake: Oral 120 120 Output: Urine 300 225 Other: Voiding Method Toilet # Voids 1 Weight 90.718 kg 90.5 kg 07/14/20 10:42 07/14/20 09:15
--- NOTE | 2020-07-14 12:55 | P.NPCON ---
History of Present Illness - Reason for Consult Consult date: 07/14/20 acute renal failure - Chief Complaint Acute kidney injury - History of Present Illness Coming to the hospital with the above complaints. He has underlying chronic kidney disease stage IV secondary to diabetic kidney disease and underlying IgA nephropathy follows with Dr. Ivory/Gillian as outpatient. Baseline creatinine about 3.1 to 3.5 MG per DL. Coming to the hospital with a creatinine of 3.5, increased to 3.87 MG per DL today. No nausea vomiting diarrhea. He underwent thoracentesis for right pleural effusion. No documented hypotensive episodes, no recent contrast studies. He takes furosemide 80 mg in the morning and 40 mg in the afternoon. Review of Systems Constitutional: Reports as per HPI Past Medical History Past Medical History: Coronary Artery Disease (CAD), Chest Pain / Angina, COPD, Diabetes Mellitus, GERD/Reflux, GI Bleed, Hyperlipidemia, Hypertension, Pneumonia, Renal Disease, Vascular Disorder Additional Past Medical History / Comment(s): IDDM type II, lower GI bleed, benign colon polyps, spouse states micro bleeds in intestine are suspected, abdominal distention comes and goes which is nearly daily, partial SBO, chronic renal disease stage IV, iron anemia with iron transfusions (recent R upper chest mediport for infusions), PVD, stable lung nodules, chronic low back pain with bilateral sciatica, RLS, vertigo, insomnia, past agent orange exposure. History of Any Multi-Drug Resistant Organisms: None Reported Past Surgical History: Cholecystectomy, Heart Catheterization Additional Past Surgical History / Comment(s): 03/25/20 R sublclavian mediport, [place] carotid [place], EGD/colonoscopyDece2016, endoscopic capsule, fx lt wrist -sx re-set, aortagram, bilateral leg revascularizations/stents Past Anesthesia/Blood Transfusion Reactions: No Reported Reaction Additional Past Anesthesia/Blood Transfusion Reaction / Comment(s): Pt has had blood transfusion without reaction. Past Psychological History: Depression, PTSD Smoking Status: Current every day smoker Past Alcohol Use History: None Reported Past Drug Use History: Marijuana - Past Family History Father History Unknown: Yes Mother Family Medical History: Cancer Additional Family Medical History / Comment(s): Mother from metastatic cancer pelvic origin. Medications and Allergies Home Medications Medication Instructions Recorded Confirmed Type Ergocalciferol (Vitamin D2) 50,000 unit PO Q14D 07/18/17 07/13/20 History [Vitamin D2] Simvastatin [Zocor] 40 mg PO HS 07/18/17 07/13/20 History Aspirin EC [Ecotrin Low Dose] 81 mg PO HS 02/10/18 07/13/20 History Ferrous Sulfate [Iron (65 MG 325 mg PO TID 02/10/18 07/13/20 History Elemental)] Cyanocobalamin [Vitamin B-12] 500 mcg PO DAILY 09/23/18 07/13/20 History rOPINIRole HCL [Requip] 0.25 mg PO BID 01/09/19 07/13/20 History glipiZIDE [Glucotrol] 5 mg PO AC-LUNCH 05/22/19 07/13/20 History calcitrioL [Rocaltrol] 0.5 mcg PO SANTOS 09/17/19 07/13/20 History Omeprazole [PriLOSEC] 20 mg PO AC-BRKFST 09/25/19 07/13/20 History Clopidogrel [Plavix] 75 mg PO HS 04/18/20 07/13/20 History Isosorbide Mononitrate ER [Imdur] 60 mg PO BID #60 tab.er.24h 04/21/20 07/13/20 Rx Nitroglycerin Sl Tabs [Nitrostat] 0.4 mg SUBLINGUAL Q5M PRN #20 tab 04/21/20 07/13/20 Rx Gabapentin [Neurontin] 200 mg PO BID cap 04/28/20 07/13/20 Rx amLODIPine [Norvasc] 10 mg PO DAILY #30 tab 04/28/20 07/13/20 Rx Albuterol Inhaler [Ventolin Hfa 1 puff INHALATION RT-Q6H PRN 05/19/20 07/13/20 History Inhaler] Sennosides/Docusate Sodium [Senna 2 cap PO TID BETWEEN MEALS PRN 05/19/20 07/13/20 History Plus 8.6-50 mg Softgel] Sodium Bicarbonate Tab 650 mg PO BID 05/19/20 07/13/20 History hydrALAZINE HCL [Apresoline] 25 mg PO TID 05/19/20 07/13/20 History Furosemide [Lasix] 80 tab PO DAILY 05/26/20 07/13/20 History Furosemide [Lasix] 40 mg PO HS 07/13/20 07/13/20 History Insulin Glargine [Lantus] 40 unit SQ HS 07/13/20 07/13/20 History Metoprolol Tartrate [Lopressor] 25 mg PO TID 07/13/20 07/13/20 History Allergies Allergy/AdvReac Type Severity Reaction Status Date / Time Iodinated Contrast Media AdvReac CAN'T Verified 07/13/20 16:16 TAKE, RENAL DISEASE Iodine and Iodide Containing AdvReac CAN'T Verified 07/13/20 16:16 Produc TAKE, RENAL DISEASE Physical Exam Vitals: Vital Signs Temp Pulse Pulse Resp BP BP Pulse Ox 07/14/20 11:58 18 93 L 07/14/20 11:40 90 18 143/64 95 07/14/20 11:30 99 07/14/20 11:20 5 L 85 L 07/14/20 11:15 84 07/14/20 11:00 84 92 L 07/14/20 08:00 97.9 F 83 24 142/46 90 L 07/14/20 04:00 98.0 F 79 20 135/65 95 07/14/20 02:55 80 07/14/20 02:49 80 07/14/20 00:00 97.9 F 83 22 157/67 95 07/13/20 21:13 78 16 147/79 98 07/13/20 19:59 78 18 07/13/20 19:51 76 07/13/20 19:01 70 20 172/77 96 07/13/20 18:00 70 20 129/46 97 07/13/20 17:00 67 20 142/56 97 07/13/20 16:59 97.9 F 77 35 H 157/69 96 07/13/20 16:04 80 22 150/57 97 07/13/20 14:41 72 07/13/20 14:33 71 07/13/20 14:12 97.5 F L 82 26 H 175/75 97 Intake and Output 07/13/20 07/14/20 07/14/20 22:59 06:59 14:59 Intake Total 120 120 Output Total 300 225 Balance 120 -300 -105 Intake: Oral 120 120 Output: Urine 300 225 Other: Voiding Method Toilet # Voids 1 Weight 90.718 kg 90.5 kg No acute Distress S1-S2 heard Diminished breath sounds Abdomen distended Trace edema Results - Lab Results Most recent lab results Calcium 8.6 mg/dL (8.4-10.2) 07/14/20 09:15 Magnesium 2.1 mg/dL (1.6-2.3) 07/13/20 14:22 07/14/20 10:42 07/14/20 09:15 Assessment and Plan Assessment: #1 nonoliguric acute kidney injury secondary to type I cardiorenal syndrome. 2 chronic kidney disease stage IV secondary to diabetic kidney disease/IgA nephropathy with a baseline creatinine of 3.1-3.5 MG per DL. #3 right pleural effusion status post thoracentesis #4 anemia with chronic kidney disease #5 volume overload #6 metabolic alkalosis #7 diastolic CHF Plan: #1 continue with Lasix 40 mg IV 3 times a day for now. #2 creatinine slightly higher than baseline. #3 strict ins and outs, fluid restriction. Bladder scan. #4 avoid nephrotoxic agents and hypotensive episodes. #5 no acute indication for renal replacement therapy at this time
[2020-07-14] MEDS: glipiZIDE 5 MG TAB PO SCH (13:37)
--- NOTE | 2020-07-14 14:40 | PCN ---
PROCEDURE NOTE PROCEDURE PERFORMED: Right-sided thoracentesis. PREOPERATIVE DIAGNOSIS: Right-sided pleural effusion. POSTOPERATIVE DIAGNOSIS: Right sided pleural effusion. ANESTHESIA USED: 2 mL of 1% lidocaine. PROCEDURE DETAILS: The fluid in the right pleural space was localized with ultrasound. Markings were done. Then, the patient was placed in a sitting upright position, the area below the right scapula and over the area of the marking. The area was prepared in a sterile fashion and drapes were applied. Then, using a 26-gauge needle, the area was locally anesthetized, then a 21-gauge needle was inserted into the pleural space. Fluid was localized. Then a small incision was made and a standard thoracentesis catheter and needle were used. The needle was advanced into the pleural space and as soon as the fluid was obtained, the catheter was advanced over the needle into the pleural space, and the needle was pulled out. We were able to drain 1300 mL of fluid, slightly serosanguineous, fluid was sent for different diagnostic studies. Chest x-ray postoperatively showed no evidence of any immediate complications. MMODL / IJN: [id number] /
[2020-07-14 14:47] LABS: Appearance,BF Hazy; Color,BF Yellow
[2020-07-14 15:11] LABS: Nucleated Cells, Body Fluid 1500 /uL; RBC, Body Fluid 7300 /uL
[2020-07-14 15:15] LABS: Mononuclear WBC,Body Fluid 51 %; Polynuclear WBC,Body Fluid 49 %; Total Cells Counted,Body Fluid 100
--- NOTE | 2020-07-14 16:46 | P.PN ---
Subjective Progress Note Date: 07/14/20 Principal diagnosis: Acute on chronic hypoxic respiratory failure secondary to an acute exacerbation of diastolic congestive heart failure, enlarged right pleural effusion This is a 70-year-old, known history of COPD, chronic right-sided pleural effusion, coronary artery disease, chronic renal disease stage IV, iron deficiency anemia, history of diastolic congestive heart failure, history of right upper chest Mediport for iron infusions, history of IgA nephropathy, diabetic nephropathy, patient was seen in the ER with mostly 1 week history of increased shortness of breath, cough, no fever no chills no hemoptysis no chest pain. Upon presentation to the ER, patient was found to have moderate sized right-sided pleural effusion, hence this consult was initiated. BNP was elevated at 4760, otherwise his labs were basically normal except for low hemoglobin of 8.5, his last hemoglobin on 06/23/20 was 8.0. Previous echocardiogram on this patient questioned mitral valve disease, he was found to have inferior hypokinesis, but overall systolic function was unremarkable. I have performed thoracentesis on this patient back in April, and I removed about 1300 mL of fluid which was transudate of in nature. Hence it was cardiac in nature related to chronic congestive heart failure. The patient is seen today 07/14/2020 in follow-up on the selective care unit. He is currently sitting up at the bedside. Awake and alert in no acute distress. He has required increased oxygen from 5 L/m to nasal cannula and placed on the 100% nonrebreather mask. Chest x-ray reveals significant right- sided pleural effusion. Ultrasound was obtained showed a 12 cm pocket on the ri ght. No fluid on the left. He didn't undergo a right-sided thoracentesis today by Dr. Orta. 1.3 L of blood-tinged fluid was removed. Analysis pending. Immediately down to 5 L/m per nasal cannula. Feeling less short of breath. White count 11.4. Hemoglobin 8.3. Lymphocytes 0.5. Sodium 138. Potassium 4.4. Creatinine 3.82. He remains on Lasix 40 mg IV push every 8 hours. Objective - Vital Signs Vital signs: Vital Signs Temp 97.9 F 07/14/20 08:00 Pulse 90 07/14/20 14:50 Resp 18 07/14/20 14:50 BP 143/64 11/26/20 11:40 Pulse Ox 92 L 07/14/20 13:36 Intake & Output 07/13/20 07/14/20 07/14/20 18:59 06:59 18:59 Intake Total 120 360 Output Total 300 550 Balance -180 -190 Weight 90.718 kg 90.5 kg Intake: Oral 120 360 Output: Urine 300 550 Other: Voiding Method Toilet Toilet # Voids 1 - Exam GENERAL EXAM: Alert, very pleasant, 70-year-old male patient, resting in bed, on 5 L nasal cannula. Head: Atraumatic, normocephalic. EENT: PERRLA, EOMI, neck is, chronic masses, no JVD. CHEST: No chest wall deformity. Symmetrical expansion. LUNGS: Diminished breath sounds and dullness at the right lung base. CVS: Regular rate and rhythm, normal S1 and S2, no gallops, 2/6 systolic murmur throughout the precordium. ABDOMEN: Soft, nontender. No hepatosplenomegaly, normal bowel sounds, no guarding or rigidity. EXTREMITIES: No clubbing, 2+ bipedal edema., no cyanosis, 2+ pulses and upper and lower extremities. MUSCULOSKELETAL: Muscle strength and tone normal. SPINE: No scoliosis or deformity SKIN: No rashes CENTRAL NERVOUS SYSTEM: Alert and oriented -3. No focal deficits, tone is normal in all 4 extremities. PSYCHIATRIC: Alert and oriented -3. Appropriate affect. Intact judgment and insight. - Labs CBC & Chem 7: 07/14/20 10:42 07/14/20 09:15 Labs: Abnormal Lab Results - Last 24 Hours (Table) 07/13/20 07/14/20 07/14/20 Range/Units 22:07 06:13 09:15 WBC (3.8-10.6) k/uL RBC (4.30-5.90) m/uL Hgb (13.0-17.5) gm/dL Hct (39.0-53.0) % MCV (80.0-100.0) fL MCHC (31.0-37.0) g/dL RDW (11.5-15.5) % Plt Count (150-450) k/uL Neutrophils # (1.3-7.7) k/uL Lymphocytes # (1.0-4.8) k/uL BUN 57 H (9-20) mg/dL Creatinine 3.82 H (0.66-1.25) mg/dL Glucose 243 H (74-99) mg/dL POC Glucose (mg/dL) 137 H 280 H (75-99) mg/dL 07/14/20 07/14/20 Range/Units 10:42 12:02 WBC 11.4 H (3.8-10.6) k/uL RBC 2.71 L (4.30-5.90) m/uL Hgb 8.3 L (13.0-17.5) gm/dL Hct 27.9 L (39.0-53.0) % MCV 103.1 H (80.0-100.0) fL MCHC 29.9 L (31.0-37.0) g/dL RDW 15.9 H (11.5-15.5) % Plt Count 482 H (150-450) k/uL Neutrophils # 10.2 H (1.3-7.7) k/uL Lymphocytes # 0.5 L (1.0-4.8) k/uL BUN (9-20) mg/dL Creatinine (0.66-1.25) mg/dL Glucose (74-99) mg/dL POC Glucose (mg/dL) 260 H (75-99) mg/dL Assessment and Plan Assessment: Acute on chronic hypoxic respiratory failure secondary to congestive heart failure, diastolic dysfunction Right pleural effusion secondary to acute on chronic diastolic congestive heart failure. History of underlying COPD, presently inactive. Chronic kidney disease stage IV, patient is known to have diabetic nephropathy and possibly IgA nephropathy. Insulin-dependent diabetes. Chronic iron deficiency anemia Benign essential hypertension with hypertensive nephropathy. Peripheral vessel occlusive disease and previous intervention for total occlusion of the right sfa and PTCA and stenting of the left SFA Carotid artery disease and previous stenting. Plan: The patient was seen and evaluated by Dr. Orta He did go ahead and perform a right-sided thoracentesis with 1.3 L of blood-t inged fluid removed Fluid analysis and cytology pending Follow-up chest x-ray revealed some loculated pleural effusion on the right, no pneumothorax Continue IV diuretics Titrate down the FiO2 as tolerated We will continue to follow I, the cosigning physician, performed a history & physical examination of the patient. Lungs sounds diminished in the right lung base. Maintaining good O2 saturations in the 90s on 5 L/m per nasal cannula. I discussed the assessment and plan of care with my nurse practitioner, Zhanna Cruz. I attest to the above note as dictated by her.
[2020-07-14 17:11] LABS: Glucose,Whole Blood 389 mg/dL (75-99)
[2020-07-14] MEDS: INSULIN ASPART (NovoLOG) 100 UNIT/ML VIAL SQ SCH ×2 (17:32→20:49)
[2020-07-14 17:58] LABS: Glucose, BF Source Pleural Fluid; Glucose, Body Fluid 226 mg/dL; LDH, Body Fluid Source Pleural Fluid; Total Protein, Body Fluid 3100 mg/dL
--- NOTE | 2020-07-14 19:37 | XR ---
EXAMINATION TYPE: XR chest 1V portable DATE OF EXAM: 07/14/2020 CLINICAL HISTORY: Difficulty breathing and CHF progress study. TECHNIQUE: Single AP portable upright view of the chest is obtained. COMPARISON: Chest x-ray from earlier today an older studies FINDINGS: Stable right internal jugular Mediport catheter. Persistent right mid to basilar opacity. Background chronic parenchymal change. Faint reticulonodular opacities left basilar region show impro sanju aeration. Silhouetting right heart border and hemidiaphragm remain present. Osseous structures re main intact. IMPRESSION: Persistent moderate right pleural fluid collection and associated right basilar atelectas is and/or infiltrate. No significant interval change. Patchy left basilar atelectasis and/or infiltra te improved from prior.
[2020-07-14 20:24] LABS: Glucose,Whole Blood 218 mg/dL (75-99)
[2020-07-14] MEDS: ASPIRIN 81 MG PO SCH (20:48)
[2020-07-14] MEDS: ATORVASTATIN 20 MG TAB PO SCH (20:48)
[2020-07-14] MEDS: CLOPIDOGREL 75 MG TAB PO SCH (20:48)
[2020-07-14] MEDS: INSULIN DETEMIR (LEVEMIR) 100 UNIT/ML SYR SQ SCH (20:49)
[2020-07-14] MEDS: HYDROcodone/APAP 5-325MG 1 EACH TAB PO PRN (20:51)
--- NOTE | 2020-07-14 23:00 | PN ---
PROGRESS NOTE DATE OF SERVICE: 07/14/2020 This 70-year-old gentleman who was admitted with shortness of breath, had significant right pleural effusion. Patient also had renal failure. The pleural effusion was thought to be secondary to CHF and Dr. Orta performed a thoracocentesis, about 1300 mL of fluid, slightly serosanguineous fluid was done and the repeat chest x-ray was ordered and fluid was sent for reports. The patient will be closely monitored at this time. Patient is also started on Lasix as well. PAST MEDICAL HISTORY: Reviewed. REVIEW OF SYSTEMS: CARDIOVASCULAR SYSTEM: No angina. RESPIRATORY SYSTEM: As mentioned earlier. GI: As mentioned earlier. : No dysuria. NERVOUS SYSTEM: No numbness or weakness. The patient is still short of breath. CURRENT MEDICATIONS: Current medications are reviewed and include: Tylenol, [place], Norvasc, aspirin, Lipitor, Rocaltrol, Plavix, iron sulfate, Lasix 40 IV q.8, Apresoline, Levemir. Other medication doses are reviewed. PHYSICAL EXAMINATION: The patient is alert and oriented x3. The pulse is 89, blood pressure is 137/52, respiration 20, temperature 98.6, pulse ox 86% on room air and 90% on 4 L. HEENT: Conjunctivae normal. NECK: No jugular venous distention. CARDIOVASCULAR: S1, S2 muffled. RESPIRATORY: Breath sounds diminished at the bases. Scattered rhonchi and crackles. ABDOMEN: Soft, nontender. LEGS: No edema. No swelling. NERVOUS SYSTEM: No focal deficits. LABS: Creatinine 3.82. WBC 11.4, hemoglobin is 8.3. Pleural fluid RBC, mostly RBC, WBC is only 49, protein is ntd. ASSESSMENT: 1. Shortness of breath possibly secondary to right pleural effusion possibly secondary to congestive heart failure acute exacerbation with acute on chronic diastolic dysfunction. 2. Chronic kidney disease stage 3 with acute on chronic renal failure. 3. Elevated D-dimer. 4. History of chronic obstructive pulmonary disease. 5. History of coronary artery disease. 6. Diabetes mellitus type 2. 7. Gastroesophageal reflux disease. 8. History of gastrointestinal bleed. 9. Hypertension. 10.Hyperlipidemia. 11.History of pneumonia. 12.History of vascular disorder. 13.History of benign colonic polyps. 14.History of right upper chest Mediport in for infusions. 15.History of peripheral vascular disease. 16.Restless legs syndrome. 17.History of depression. 18.History of posttraumatic stress disorder. 19.History of nicotine dependence. 20.History of THC. 21.Obesity with body mass index of 31.3. 22.FULL CODE. RECOMMENDATIONS AND DISCUSSION: I recommend to continue current medications. Continue to monitor, symptomatic treatment. Otherwise at this time I recommend continue the current medications and will repeat a chest x-ray. Closely follow with Dr. Orta. Continue with diuretics. Monitor closely the creatinine. Cardiology and Nephrology have also seen the patient and Nephrology has recommended to continue the diuretics and monitor closely. Prognosis guarded because of multiple complex medical issues. Further recommendations to follow. MMODL / IJN: [id number] / OLGA
[2020-07-15] MEDS: IPRATROPIUM-ALBUTEROL 3 ML NEB INHALATION SCH ×4 (04:01→21:08)
[2020-07-15 06:13] LABS: Glucose,Whole Blood 73 mg/dL (75-99)
[2020-07-15] MEDS: INSULIN ASPART (NovoLOG) 100 UNIT/ML VIAL SQ SCH ×4 (06:37→20:20)
[2020-07-15] MEDS: PANTOPRAZOLE 40 MG TABLET PO SCH (06:43)
[2020-07-15] MEDS: METOPROLOL TARTRATE 25 MG TAB PO SCH ×3 (08:18→22:51)
[2020-07-15] MEDS: FERROUS SULFATE 325 MG TAB PO SCH ×3 (08:18→20:17)
[2020-07-15] MEDS: CYANOCOBALAMIN 500 MCG TAB PO SCH (08:18)
[2020-07-15] MEDS: GABAPENTIN 100 MG CAP PO SCH ×2 (08:18→20:17)
[2020-07-15] MEDS: hydrALAZINE HCL 25 MG TAB PO SCH ×3 (08:18→20:17)
[2020-07-15] MEDS: ISOSORBIDE MONONITRATE ER 60 MG TAB.ER.24H PO SCH ×2 (08:19→20:19)
[2020-07-15] MEDS: HEPARIN SODIUM,PORCINE 5,000 UNIT/ML 1 ML VIAL SQ SCH ×2 (08:19→20:20)
[2020-07-15] MEDS: FUROSEMIDE 10 MG/ML 4 ML VIAL IV SCH ×3 (08:19→23:36)
[2020-07-15] MEDS: amLODIPine 10 MG TAB PO SCH (08:19)
[2020-07-15 12:12] LABS: Glucose,Whole Blood 182 mg/dL (75-99)
[2020-07-15 12:36] LABS: Anisocytosis Slight; Basophils % (A) 0 %; Eosinophils # (A) 0.1 k/uL (0-0.7); Eosinophils % (A) 1 %; HCT 29.9 % (39.0-53.0); HGB 9.1 gm/dL (13.0-17.5); Hypochromasia Moderate; Lymphocytes # (A) 0.6 k/uL (1.0-4.8); Lymphocytes % (A) 5 %; MCH 30.8 pg (25.0-35.0); MCHC 30.4 g/dL (31.0-37.0); MCV 101.6 fL (80.0-100.0); Macrocytosis Slight; Mean Platelet Volume 7.7; Monocytes # (A) 0.5 k/uL (0-1.0); Monocytes % (A) 4 %; Neutrophils # (A) 11.6 k/uL (1.3-7.7); Neutrophils % (A) 90 %; Platelet Count 567 k/uL (150-450); RBC 2.95 m/uL (4.30-5.90); WBC 12.9 k/uL (3.8-10.6)
[2020-07-15 12:44] LABS: Calcium 9.2 mg/dL (8.4-10.2); Potassium 4.5 mmol/L (3.5-5.1)
[2020-07-15] MEDS: PIPERACILLIN-TAZOBACTAM 3.375 GM in SODIUM CHLORIDE 0.9% 100 ML IVPB SCH ×2 (12:44→20:19)
[2020-07-15] MEDS: glipiZIDE 5 MG TAB PO SCH (12:45)
--- NOTE | 2020-07-15 13:21 | P.PN ---
Subjective Progress Note Date: 07/15/20 CHIEF COMPLAINT: CHF HISTORY OF PRESENT ILLNESS: Patient examined this morning the bedside. Patient states his shortness of breath has improved from yesterday. He underwent thoracentesis yesterday with removal of 1300 mL. He remains on IV Lasix 40 mg every 8 hours. Creatinine today 3.75. PHYSICAL EXAM: VITAL SIGNS: Reviewed. GENERAL: Well-developed in no acute distress. HEENT: Head is normocephalic. Pupils are equal, round. Sclerae anicteric. Mucous membranes of the mouth are moist. Neck supple. No JVD or thyromegaly LUNGS: Respirations even and unlabored. Lungs diminished HEART: Regular rate and rhythm. S1 and S2 heard. ABDOMEN: Soft. Nondistended. Nontender. EXTREMITIES: Normal range of motion. No clubbing or cyanosis. Peripheral pulses intact. 2+ bilateral lower extremity edema NEUROLOGIC: Awake and alert. Oriented x 3. ASSESSMENT: Acute exacerbation of chronic diastolic heart failure, EF 5055% Moderate to large right pleural effusion, status post thoracentesis History of thoracentesis in April 2020 with removal of 1300 mL Coronary artery disease with recent PCI of ostial PDA branch of the RCA, April 2020 Carotid stenosis with previous right carotid stenting Peripheral arterial disease with previous bilateral revascularization with stents Hypertension Hyperlipidemia Diabetes mellitus COPD Chronic kidney disease PLAN: Continue current cardiac medications Continue IV lasix Monitor kidney function Daily weights Accurate I&O Pulmonary following Further recommendations pending patient's course Nurse practitioner note has been reviewed by physician. Signing provider agrees with the documented findings, assessment, and plan of care. Objective - Vital Signs Vital signs: Vital Signs Temp 97.6 F 07/15/20 12:00 Pulse 65 07/15/20 12:10 Resp 18 07/15/20 12:00 BP 145/65 07/15/20 12:00 Pulse Ox 94 L 07/15/20 12:00 Intake & Output 07/14/20 07/15/20 07/15/20 18:59 06:59 18:59 Intake Total 600 900 Output Total 700 800 Balance -100 -800 900 Weight 89.5 kg Intake: Oral 600 900 Output: Urine 700 800 Other: Voiding Method Toilet Urinal # Voids 1 - Labs CBC & Chem 7: 07/15/20 11:25 07/15/20 11:25 Labs: Abnormal Lab Results - Last 24 Hours (Table) 07/14/20 07/14/20 07/15/20 Range/Units 17:01 20:23 06:10 WBC (3.8-10.6) k/uL RBC (4.30-5.90) m/uL Hgb (13.0-17.5) gm/dL Hct (39.0-53.0) % MCV (80.0-100.0) fL MCHC (31.0-37.0) g/dL RDW (11.5-15.5) % Plt Count (150-450) k/uL Neutrophils # (1.3-7.7) k/uL Lymphocytes # (1.0-4.8) k/uL BUN (9-20) mg/dL Creatinine (0.66-1.25) mg/dL Glucose (74-99) mg/dL POC Glucose (mg/dL) 389 H 218 H 73 L (75-99) mg/dL 07/15/20 07/15/20 07/15/20 Range/Units 11:25 11:25 11:56 WBC 12.9 H (3.8-10.6) k/uL RBC 2.95 L (4.30-5.90) m/uL Hgb 9.1 L (13.0-17.5) gm/dL Hct 29.9 L (39.0-53.0) % MCV 101.6 H (80.0-100.0) fL MCHC 30.4 L (31.0-37.0) g/dL RDW 16.0 H (11.5-15.5) % Plt Count 567 H (150-450) k/uL Neutrophils # 11.6 H (1.3-7.7) k/uL Lymphocytes # 0.6 L (1.0-4.8) k/uL BUN 68 H (9-20) mg/dL Creatinine 3.75 H (0.66-1.25) mg/dL Glucose 150 H (74-99) mg/dL POC Glucose (mg/dL) 182 H (75-99) mg/dL Microbiology - Last 24 Hours (Table) 07/14/20 11:00 Gram Stain - Preliminary Pleural Fluid Body Fluid Culture - Preliminary 07/13/20 14:22 Blood Culture - Preliminary Blood No Growth after 24 hours
--- NOTE | 2020-07-15 14:36 | P.PN ---
Subjective Progress Note Date: 07/15/20 Principal diagnosis: Acute on chronic hypoxic respiratory failure secondary to an acute exacerbation of diastolic congestive heart failure, enlarged right pleural effusion This is a 70-year-old, known history of COPD, chronic right-sided pleural effusion, coronary artery disease, chronic renal disease stage IV, iron deficiency anemia, history of diastolic congestive heart failure, history of right upper chest Mediport for iron infusions, history of IgA nephropathy, diabetic nephropathy, patient was seen in the ER with mostly 1 week history of increased shortness of breath, cough, no fever no chills no hemoptysis no chest pain. Upon presentation to the ER, patient was found to have moderate sized right-sided pleural effusion, hence this consult was initiated. BNP was elevated at 4760, otherwise his labs were basically normal except for low hemoglobin of 8.5, his last hemoglobin on 06/23/20 was 8.0. Previous echocardiogram on this patient questioned mitral valve disease, he was found to have inferior hypokinesis, but overall systolic function was unremarkable. I have performed thoracentesis on this patient back in April, and I removed about 1300 mL of fluid which was transudate of in nature. Hence it was cardiac in nature related to chronic congestive heart failure. The patient is seen today 07/14/2020 in follow-up on the selective care unit. He is currently sitting up at the bedside. Awake and alert in no acute distress. He has required increased oxygen from 5 L/m to nasal cannula and placed on the 100% nonrebreather mask. Chest x-ray reveals significant right- sided pleural effusion. Ultrasound was obtained showed a 12 cm pocket on the ri ght. No fluid on the left. He didn't undergo a right-sided thoracentesis today by Dr. Orta. 1.3 L of blood-tinged fluid was removed. Analysis pending. Immediately down to 5 L/m per nasal cannula. Feeling less short of breath. White count 11.4. Hemoglobin 8.3. Lymphocytes 0.5. Sodium 138. Potassium 4.4. Creatinine 3.82. He remains on Lasix 40 mg IV push every 8 hours. The patient is seen today 07/15/2020 in follow-up on the selective care unit. He is currently resting fairly comfortably in bed. Awake and alert in no acute distress. He had issues with chills and diaphoresis last evening. He is still requiring 6 L high flow nasal cannula to maintain O2 saturation in the 90s. He is currently afebrile hemodynamically stable. Blood cultures are pending. Pleural fluid culture pending. White count 12.9. Hemoglobin 9.1. Sodium 140. Potassium 4.5. Creatinine 10 and 3.75. He remains on Lasix 40 mg IV every 8 hours. Post thoracentesis chest x-ray continued to show persistent moderate right pleural effusion and pleural fluid collection and associated right basilar atelectasis and or infiltrate. Patchy left basilar atelectasis/infiltrate improved compared to previous. Objective - Vital Signs Vital signs: Vital Signs Temp 97.6 F 07/15/20 12:00 Pulse 65 07/15/20 12:10 Resp 18 07/15/20 12:00 BP 145/65 07/15/20 12:00 Pulse Ox 94 L 07/15/20 12:00 Intake & Output 07/14/20 07/15/20 07/15/20 18:59 06:59 18:59 Intake Total 600 900 Output Total 700 800 Balance -100 -800 900 Weight 89.5 kg Intake: Oral 600 900 Output: Urine 700 800 Other: Voiding Method Toilet Urinal # Voids 1 - Exam GENERAL EXAM: Alert, very pleasant, 70-year-old male patient, resting in bed, on 6 L nasal cannula. Head: Atraumatic, normocephalic. EENT: PERRLA, EOMI, neck is, chronic masses, no JVD. CHEST: No chest wall deformity. Symmetrical expansion. LUNGS: Diminished breath sounds and dullness at the right lung base. CVS: Regular rate and rhythm, normal S1 and S2, no gallops, 2/6 systolic murmur throughout the precordium. ABDOMEN: Soft, nontender. No hepatosplenomegaly, normal bowel sounds, no guarding or rigidity. EXTREMITIES: No clubbing, 2+ bipedal edema., no cyanosis, 2+ pulses and upper and lower extremities. MUSCULOSKELETAL: Muscle strength and tone normal. SPINE: No scoliosis or deformity SKIN: No rashes CENTRAL NERVOUS SYSTEM: Alert and oriented -3. No focal deficits, tone is normal in all 4 extremities. PSYCHIATRIC: Alert and oriented -3. Appropriate affect. Intact judgment and insight. - Labs CBC & Chem 7: 07/15/20 11:25 07/15/20 11:25 Labs: Abnormal Lab Results - Last 24 Hours (Table) 07/14/20 07/14/20 07/15/20 Range/Units 17:01 20:23 06:10 WBC (3.8-10.6) k/uL RBC (4.30-5.90) m/uL Hgb (13.0-17.5) gm/dL Hct (39.0-53.0) % MCV (80.0-100.0) fL MCHC (31.0-37.0) g/dL RDW (11.5-15.5) % Plt Count (150-450) k/uL Neutrophils # (1.3-7.7) k/uL Lymphocytes # (1.0-4.8) k/uL BUN (9-20) mg/dL Creatinine (0.66-1.25) mg/dL Glucose (74-99) mg/dL POC Glucose (mg/dL) 389 H 218 H 73 L (75-99) mg/dL 07/15/20 07/15/20 07/15/20 Range/Units 11:25 11:25 11:56 WBC 12.9 H (3.8-10.6) k/uL RBC 2.95 L (4.30-5.90) m/uL Hgb 9.1 L (13.0-17.5) gm/dL Hct 29.9 L (39.0-53.0) % MCV 101.6 H (80.0-100.0) fL MCHC 30.4 L (31.0-37.0) g/dL RDW 16.0 H (11.5-15.5) % Plt Count 567 H (150-450) k/uL Neutrophils # 11.6 H (1.3-7.7) k/uL Lymphocytes # 0.6 L (1.0-4.8) k/uL BUN 68 H (9-20) mg/dL Creatinine 3.75 H (0.66-1.25) mg/dL Glucose 150 H (74-99) mg/dL POC Glucose (mg/dL) 182 H (75-99) mg/dL Microbiology - Last 24 Hours (Table) 07/14/20 11:00 Gram Stain - Preliminary Pleural Fluid Body Fluid Culture - Preliminary 07/13/20 14:22 Blood Culture - Preliminary Blood No Growth after 24 hours Assessment and Plan Assessment: Acute on chronic hypoxic respiratory failure secondary to congestive heart failure, diastolic dysfunction Right pleural effusion secondary to acute on chronic diastolic congestive heart failure. History of underlying COPD, presently inactive. Chronic kidney disease stage IV, patient is known to have diabetic nephropathy and possibly IgA nephropathy. Insulin-dependent diabetes. Chronic iron deficiency anemia Benign essential hypertension with hypertensive nephropathy. Peripheral vessel occlusive disease and previous intervention for total occlusion of the right sfa and PTCA and stenting of the left SFA Carotid artery disease and previous stenting. Plan: The patient was seen and evaluated by Dr. Orta We will obtain a computed tomography scan of the chest without contrast Add Zosyn Continue IV diuretics Titrate down the FiO2 as tolerated We will continue to follow I, the cosigning physician, performed a history & physical examination of the patient. Lungs sounds diminished in the right lung base. Maintaining good O2 saturations in the 90s on 6 L/m per nasal cannula. I discussed the assessment and plan of care with my nurse practitioner, Zhanna Cruz. I attest to the above note as dictated by her.
[2020-07-15] MEDS ORDERED: IPRATROPIUM-ALBUTEROL 3 ML NEB INHALATION PRN (14:41)
--- NOTE | 2020-07-15 15:21 | CT ---
EXAMINATION TYPE: CT ChestAbdPelvis wo con DATE OF EXAM: 07/15/2020 COMPARISON: 05/24/2018 HISTORY: pneumonia CT DLP: 872.8mGycm Unenhanced CT of the Chest, Abdomen and Pelvis Unenhanced CT of the chest ,abdomen and pelvis is performed. The lack of intravenous contrast limits evaluation of the solid and hollow viscera. Oral contrast: No CT Chest: LUNGS: There is moderate to large right-sided pleural effusion extending from the lung bases through the lung apex with maximal AP dimension of 4.7 cm. There is scattered areas of focal infiltrates some of which appear nodular bilaterally. Right lower lobe compressive atelectasis. MEDIASTINUM: Thoracic aorta is of normal caliber. The heart is not enlarged. No evidence for media stinal mass or adenopathy. HILAR STRUCTURES: No evidence for mass. No hilar adenopathy is appreciated. OTHER: No significant abnormality. CONTRAST CT ABDOMEN AND PELVIS: LIVER/GB: Cholecystectomy clips are in place. No space occupying hepatic lesion. Biliary tree is of n ormal caliber. PANCREAS: No inflammation. No distinct mass. SPLEEN: No splenic enlargement. No lesion seen. ADRENALS: No nodule. No thickening. KIDNEYS/BLADDER: No hydronephrosis. No nephrolithiasis. No disctinct renal mass. BOWEL: Normal appendix. Normal bowel caliber. No inflammation. GENITAL ORGANS: No gross abnormality. LYMPH NODES: No greater than 1cm abdominal or pelvic lymph nodes areappreciated. AORTA: No significant abnormality. OSSEOUS STRUCTURES: No significant abnormality is seen. OTHER: No significant additional abnormality is seen. IMPRESSION: 1. Moderate to large right-sided pleural effusion with right basilar compressive atelectasis. Scatter ed areas of nodular groundglass infiltrate which may reflect developing pneumonia. Nodular lesions of other etiology including metastatic disease not excluded. Correlate clinically and progress studies are recommended.
[2020-07-15 15:22] LABS: Appearance,Urine Clear (Clear); Bilirubin,Urine Negative (Negative); Blood,Urine Trace (Negative); Color,Urine Light Yellow; Glucose,Urine (UA) Negative (Negative); Ketones,Urine Negative (Negative); Leukocyte Esterase,Urine Negative (Negative); Mucus,Urine Rare /hpf; Nitrite,Urine Negative (Negative); PH, Urine 5.5 (5.0-8.0); Protein,Urine 1+ (Negative); RBC,Urine 1 /hpf (0-5); Specific Gravity,Urine 1.011 (1.001-1.035); Squamous Epithelial Cell,Urine <1 /hpf (0-4); Urobilinogen,Urine <2.0 mg/dL (<2.0); WBC,Urine 1 /hpf (0-5)
--- NOTE | 2020-07-15 16:04 | PN ---
PROGRESS NOTE DATE OF SERVICE: 07/15/2020 This is a 70-year-old gentleman with a massive right pleural effusion, thoracocentesis. The pleural effusion was thought to be secondary to CHF. Patient is being closely monitored. Patient also had renal failure, also multiple consultants are following the patient closely. CT scan of the chest was recommended. Dr. Orta added a CT scan of the abdomen and pelvis also. PAST MEDICAL HISTORY: Reviewed. REVIEW OF SYSTEMS: CARDIOVASCULAR SYSTEM: No angina, palpitations. RESPIRATIONS: As mentioned earlier. GI: No nausea. : No dysuria. NERVOUS SYSTEM: No numbness or weakness. CURRENT MEDICATIONS: 1. Tylenol. 2. [place]. 3. Ventolin. 4. DuoNeb. 5. Plavix. 6. Vitamin D2. 7. Neurontin. Doses are reviewed. PHYSICAL EXAMINATION: Alert and oriented x3, pulse 65, blood pressure 145/60, respiration 18, temperature 97.2, pulse ox 94% on 6 L. HEENT: Conjunctivae normal. NECK: No jugular venous distension. CARDIOVASCULAR SYSTEM: S1, S2 muffled. RESPIRATION: Breath sounds diminished at the bases, bilateral scattered rhonchi, no crackles. Breath sounds diminished in the right side. ABDOMEN: Soft, nontender. LEGS: No edema. No swelling. LABS: Hemoglobin is 9.1 and creatinine is 3.75. ASSESSMENT: 1. Shortness of breath possibly secondary to massive right pleural effusion, possibly secondary to congestive heart failure acute exacerbation with acute on chronic diastolic dysfunction. 2. Chronic kidney stage 3 with acute on chronic renal failure. 3. Acute renal with acute tubular necrosis. 4. Elevated D-dimer. 5. History of chronic obstructive pulmonary disease. 6. History of coronary artery disease. 7. Diabetes mellitus type 2. 8. Gastroesophageal reflux disease. 9. History of gastrointestinal bleed. 10.Hypertension. 11.Hyperlipidemia. 12.History of pneumonia. 13.History of vascular disorder. 14.History of benign colonic polyps. 15.History of right upper chest tube MediPort for infusion. 16.Peripheral vascular disease. 17.Restless legs syndrome. 18.Depression. 19.Posttraumatic stress disorder. 20.History of nicotine dependence. 21.History of THC. 22.Obesity with body mass index of 31.6. 23.FULL CODE. RECOMMENDATION: Recommend to continue current management and symptomatic treatment. Otherwise, continue with diuretics and monitor intake per charting and continue the rest of medication, bronchodilators. Will optimize the bronchodilators and would also recommend a CT scan of the chest, abdomen, and pelvis as I would also continue to monitor. Prognosis guarded. Further recommendations to follow. MMODL / IJN: [id number] /
--- NOTE | 2020-07-15 16:06 | US ---
EXAMINATION TYPE: US chest DATE OF EXAM: 07/15/2020 COMPARISON: x-ray 07/14/2020, us 07/14/2020 CLINICAL HISTORY: Markings for thoracentesis by pulmonary staff. TECHNIQUE: Targeted ultrasound of the posterior lower bilateral hemithoraces EXAM MEASUREMENTS: Right Pleural Effusion pocket size: 14.5 cm Right skin surface to fluid distance: 3.0 cm Right side marked for possible thoracentesis outside the dept. Pulmonologists are able to review the images in the patient?s EMR. IMPRESSIONS: 1. Right pleural effusion
[2020-07-15] MEDS: BUDESONIDE 1 MG/2 ML NEBU INHALATION SCH ×2 (16:59→21:08)
[2020-07-15] MEDS: FORMOTEROL FUMARATE 20 MCG/2 ML NEBU INHALATION SCH ×2 (16:59→21:08)
[2020-07-15 17:18] LABS: Glucose,Whole Blood 212 mg/dL (75-99)
[2020-07-15] MEDS: NITROGLYCERIN SL TABS 0.4 MG TAB SUBLINGUAL PRN ×2 (17:29→17:35)
--- NOTE | 2020-07-15 17:58 | XR ---
EXAMINATION TYPE: XR chest 1V portable DATE OF EXAM: 07/15/2020 COMPARISON: Yesterday HISTORY: Short of breath. Thoracentesis. TECHNIQUE: FINDINGS: There is blunting right costophrenic angle with infiltrate and atelectasis right lung base. There is some interstitial infiltrate in the left lung. There is right-sided central venous catheter with tip in the right atrium. There are chest leads. IMPRESSION: There is decrease in the right pleural effusion compared to yesterday. No pneumothorax. T here is persistent infiltrate and atelectasis and pleural fluid right lung base.
--- NOTE | 2020-07-15 18:06 | P.PN ---
Subjective Progress Note Date: 07/15/20 Follow-up for acute kidney injury. Feels better today. Awaiting for thoracentesis. Objective - Vital Signs Vital signs: Vital Signs Temp 97.6 F 07/15/20 12:00 Pulse 65 07/15/20 12:10 Resp 18 07/15/20 12:00 BP 145/65 07/15/20 12:00 Pulse Ox 94 L 07/15/20 12:00 Intake & Output 07/14/20 07/15/20 07/15/20 18:59 06:59 18:59 Intake Total 600 900 Output Total 700 800 Balance -100 -800 900 Weight 89.5 kg Intake: Oral 600 900 Output: Urine 700 800 Other: Voiding Method Toilet Urinal # Voids 1 - Exam No acute distress Decreased breath sounds S1-S2 heard Abdomen distended Trace edema - Labs CBC & Chem 7: 07/15/20 11:25 07/15/20 11:25 Labs: Abnormal Lab Results - Last 24 Hours (Table) 07/14/20 07/15/20 07/15/20 Range/Units 20:23 06:00 06:10 WBC (3.8-10.6) k/uL RBC (4.30-5.90) m/uL Hgb (13.0-17.5) gm/dL Hct (39.0-53.0) % MCV (80.0-100.0) fL MCHC (31.0-37.0) g/dL RDW (11.5-15.5) % Plt Count (150-450) k/uL Neutrophils # (1.3-7.7) k/uL Lymphocytes # (1.0-4.8) k/uL BUN (9-20) mg/dL Creatinine (0.66-1.25) mg/dL Glucose (74-99) mg/dL POC Glucose (mg/dL) 218 H 73 L (75-99) mg/dL Creatine Kinase (55-170) U/L Urine Protein 1+ H (Negative) Urine Blood Trace H (Negative) Urine Mucus Rare H (None) /hpf 07/15/20 07/15/20 07/15/20 Range/Units 11:25 11:25 11:56 WBC 12.9 H (3.8-10.6) k/uL RBC 2.95 L (4.30-5.90) m/uL Hgb 9.1 L (13.0-17.5) gm/dL Hct 29.9 L (39.0-53.0) % MCV 101.6 H (80.0-100.0) fL MCHC 30.4 L (31.0-37.0) g/dL RDW 16.0 H (11.5-15.5) % Plt Count 567 H (150-450) k/uL Neutrophils # 11.6 H (1.3-7.7) k/uL Lymphocytes # 0.6 L (1.0-4.8) k/uL BUN 68 H (9-20) mg/dL Creatinine 3.75 H (0.66-1.25) mg/dL Glucose 150 H (74-99) mg/dL POC Glucose (mg/dL) 182 H (75-99) mg/dL Creatine Kinase (55-170) U/L Urine Protein (Negative) Urine Blood (Negative) Urine Mucus (None) /hpf 07/15/20 07/15/20 Range/Units 17:15 17:30 WBC (3.8-10.6) k/uL RBC (4.30-5.90) m/uL Hgb (13.0-17.5) gm/dL Hct (39.0-53.0) % MCV (80.0-100.0) fL MCHC (31.0-37.0) g/dL RDW (11.5-15.5) % Plt Count (150-450) k/uL Neutrophils # (1.3-7.7) k/uL Lymphocytes # (1.0-4.8) k/uL BUN (9-20) mg/dL Creatinine (0.66-1.25) mg/dL Glucose (74-99) mg/dL POC Glucose (mg/dL) 212 H (75-99) mg/dL Creatine Kinase 50 L (55-170) U/L Urine Protein (Negative) Urine Blood (Negative) Urine Mucus (None) /hpf Microbiology - Last 24 Hours (Table) 07/13/20 14:22 Blood Culture - Preliminary Blood No Growth after 48 hours 07/14/20 11:00 Gram Stain - Preliminary Pleural Fluid Body Fluid Culture - Preliminary Assessment and Plan Assessment: #1 nonoliguric acute kidney injury secondary to type I cardiorenal syndrome. 2 chronic kidney disease stage IV secondary to diabetic kidney disease/IgA nephropathy with a baseline creatinine of 3.1-3.5 MG per DL. #3 right pleural effusion status post thoracentesis #4 anemia with chronic kidney disease #5 volume overload #6 metabolic alkalosis #7 diastolic CHF Plan: #1 continue with Lasix 40 mg IV 3 times a day for now. #2 creatinine slightly higher than baseline. #3 strict ins and outs, fluid restriction. #4 avoid nephrotoxic agents and hypotensive episodes. #5 no acute indication for renal replacement therapy at this time, labs in the morning
[2020-07-15 18:14] LABS: Creatine Kinase MB 2.3 ng/mL (0.0-2.4); Troponin I 0.018 ng/mL (0.000-0.034)
--- NOTE | 2020-07-15 18:40 | OP ---
OPERATIVE REPORT OPERATIVE REPORT: Right-sided thoracentesis. PREOPERATIVE DIAGNOSIS: Right-sided pleural effusion/recurrent. POSTOPERATIVE DIAGNOSIS: Right-sided pleural effusion/recurrent. ANESTHESIA USED: 2 mL of 1% lidocaine. PROCEDURE DESCRIPTION: The patient was placed in a sitting-upright position. The fluid was earlier localized by ultrasound guidance. At the level of the marking where the marking was made by the polysomnographic technician, the area was locally anesthetized, and the area was prepared in a sterile fashion and drapes were applied. Then, using a 26-gauge needle, advanced into the pleural space. Fluid was localized with the needle. Then a small tiny incision was made. A standard thoracentesis catheter and needle were used, advanced into the pleural space, and as soon as the fluid was obtained, the catheter was advanced over the needle, and the needle was pulled out of the pleural space. Freely flowing fluid was removed. Roughly 1700 mL of fluid was removed from the right pleural space. The fluid was serosanguineous, and it was not sent for diagnostic studies since the patient had a thoracentesis recently and that fluid was sent for studies. Postoperative chest x-ray showed no evidence of any complications. Significant resolution of the fluid was noted. MMODL / IJN: [id number] /
[2020-07-15] MEDS: HYDROcodone/APAP 5-325MG 1 EACH TAB PO PRN (19:37)
[2020-07-15 20:01] LABS: Glucose,Whole Blood 299 mg/dL (75-99)
[2020-07-15] MEDS: ASPIRIN 81 MG PO SCH (20:17)
[2020-07-15] MEDS: CLOPIDOGREL 75 MG TAB PO SCH (20:17)
[2020-07-15] MEDS: ATORVASTATIN 20 MG TAB PO SCH (20:17)
[2020-07-15] MEDS: INSULIN DETEMIR (LEVEMIR) 100 UNIT/ML SYR SQ SCH (20:20)
[2020-07-16] MEDS: HYDROcodone/APAP 5-325MG 1 EACH TAB PO PRN (01:10)
[2020-07-16] MEDS: IPRATROPIUM-ALBUTEROL 3 ML NEB INHALATION SCH ×3 (03:53→14:27)
[2020-07-16] MEDS: PANTOPRAZOLE 40 MG TABLET PO SCH (06:30)
[2020-07-16] MEDS: INSULIN ASPART (NovoLOG) 100 UNIT/ML VIAL SQ SCH ×2 (06:30→13:12)
[2020-07-16 06:32] LABS: Glucose,Whole Blood 46 mg/dL (75-99)
[2020-07-16 06:52] LABS: Glucose,Whole Blood 88 mg/dL (75-99)
[2020-07-16] MEDS: METOPROLOL TARTRATE 25 MG TAB PO SCH (08:59)
[2020-07-16] MEDS: CYANOCOBALAMIN 500 MCG TAB PO SCH (08:59)
[2020-07-16] MEDS: hydrALAZINE HCL 25 MG TAB PO SCH (09:00)
[2020-07-16] MEDS: FERROUS SULFATE 325 MG TAB PO SCH (09:00)
[2020-07-16] MEDS: ISOSORBIDE MONONITRATE ER 60 MG TAB.ER.24H PO SCH (09:00)
[2020-07-16] MEDS: amLODIPine 10 MG TAB PO SCH (09:00)
[2020-07-16] MEDS: GABAPENTIN 100 MG CAP PO SCH (09:00)
[2020-07-16] MEDS: FUROSEMIDE 10 MG/ML 4 ML VIAL IV SCH (09:00)
[2020-07-16] MEDS: PIPERACILLIN-TAZOBACTAM 3.375 GM in SODIUM CHLORIDE 0.9% 100 ML IVPB SCH (09:01)
[2020-07-16] MEDS: HEPARIN SODIUM,PORCINE 5,000 UNIT/ML 1 ML VIAL SQ SCH (09:01)
[2020-07-16] MEDS: FORMOTEROL FUMARATE 20 MCG/2 ML NEBU INHALATION SCH (09:46)
[2020-07-16] MEDS: BUDESONIDE 1 MG/2 ML NEBU INHALATION SCH (09:46)
[2020-07-16 10:34] LABS: Anisocytosis Slight; Basophils % (A) 0 %; Eosinophils # (A) 0.1 k/uL (0-0.7); Eosinophils % (A) 1 %; HCT 27.2 % (39.0-53.0); HGB 8.1 gm/dL (13.0-17.5); Hypochromasia Marked; Lymphocytes # (A) 0.6 k/uL (1.0-4.8); Lymphocytes % (A) 5 %; MCH 30.4 pg (25.0-35.0); MCHC 29.8 g/dL (31.0-37.0); Macrocytosis Slight; Mean Platelet Volume 7.7; Monocytes # (A) 0.5 k/uL (0-1.0); Monocytes % (A) 4 %; Neutrophils % (A) 89 %; Platelet Count 547 k/uL (150-450); RBC 2.67 m/uL (4.30-5.90); WBC 11.2 k/uL (3.8-10.6)
[2020-07-16 10:51] LABS: Calcium 8.3 mg/dL (8.4-10.2); Potassium 4.4 mmol/L (3.5-5.1)
[2020-07-16 11:28] VITALS: RESP 16; TEMP 97.5
[2020-07-16 11:38] LABS: Glucose,Whole Blood 297 mg/dL (75-99)
--- NOTE | 2020-07-16 12:49 | XR ---
EXAMINATION TYPE: XR chest 1V portable DATE OF EXAM: 07/16/2020 CLINICAL HISTORY: Difficulty breathing progress study. TECHNIQUE: Single AP portable upright view of the chest is obtained. COMPARISON: Chest x-ray and CT from one day earlier FINDINGS: Stable right sided Mediport catheter. Background chronic parenchymal change with persisten t right basilar opacity. Cardiac silhouette size stable and mildly enlarged. Osseous structures are i ntact. IMPRESSION: Chronic parenchymal change and mild cardiomegaly with persistent right basilar acute infi ltrate and/or atelectasis and small right pleural effusion. No significant change from one day ines [place]
[2020-07-16] MEDS: glipiZIDE 5 MG TAB PO SCH (13:12)
--- NOTE | 2020-07-16 14:14 | P.PN ---
Subjective Progress Note Date: 07/16/20 CHIEF COMPLAINT: CHF HISTORY OF PRESENT ILLNESS: Patient examined this morning the bedside. Patient underwent a second thoracentesis yesterday with removal of 1700 mL. Patient apparently complained of some chest pain and right jaw pain during his thoracentesis. EKG obtained and was reviewed. Troponins negative. No further episodes of chest pain. Patient states his shortness of breath has improved from yesterday. Patient also had a 3 second pause overnight. PHYSICAL EXAM: VITAL SIGNS: Reviewed. GENERAL: Well-developed in no acute distress. HEENT: Head is normocephalic. Pupils are equal, round. Sclerae anicteric. Mucous membranes of the mouth are moist. Neck supple. No JVD or thyromegaly LUNGS: Respirations even and unlabored. Lungs diminished HEART: Regular rate and rhythm. S1 and S2 heard. ABDOMEN: Soft. Nondistended. Nontender. EXTREMITIES: Normal range of motion. No clubbing or cyanosis. Peripheral pulses intact. No lower extremity edema NEUROLOGIC: Awake and alert. Oriented x 3. ASSESSMENT: Acute exacerbation of chronic diastolic heart failure, EF 5055% Moderate to large right pleural effusion, status post thoracentesis x2 3 second pause History of thoracentesis in April 2020 with removal of 1300 mL Coronary artery disease with recent PCI of ostial PDA branch of the RCA, Apr Carotid stenosis with previous right carotid stenting Peripheral arterial disease with previous bilateral revascularization with stents Hypertension Hyperlipidemia Diabetes mellitus COPD Chronic kidney disease PLAN: Continue current cardiac medications Continue IV lasix Monitor kidney function Daily weights Accurate I&O Pulmonary following Patient's metoprolol was decreased secondary to patient having a 3 second pause on telemetry Continue telemetry monitoring Repeat echocardiogram to assess cardiac structure and function Patient will require event monitor post discharge. An appointment has been scheduled for the patient on July 20 at 10 AM at [facility] for event monitor placement. Nurse practitioner note has been reviewed by physician. Signing provider agrees with the documented findings, assessment, and plan of care. Objective - Vital Signs Vital signs: Vital Signs Temp 97.5 F L 07/16/20 08:00 Pulse 77 07/16/20 08:00 Resp 16 07/16/20 08:00 BP 137/63 07/16/20 08:00 Pulse Ox 97 07/16/20 08:00 Intake & Output 07/15/20 07/16/20 07/16/20 18:59 06:59 18:59 Intake Total 1140 462 Output Total 1100 Balance 1140 -1100 462 Weight 87 kg Intake: Oral 1140 462 Output: Urine 1100 Other: Voiding Method Urinal Urinal # Voids 1 1 - Labs CBC & Chem 7: 07/16/20 09:55 07/16/20 09:55 Labs: Abnormal Lab Results - Last 24 Hours (Table) 07/15/20 07/15/20 07/15/20 Range/Units 06:00 17:15 17:30 WBC (3.8-10.6) k/uL RBC (4.30-5.90) m/uL Hgb (13.0-17.5) gm/dL Hct (39.0-53.0) % MCV (80.0-100.0) fL MCHC (31.0-37.0) g/dL RDW (11.5-15.5) % Plt Count (150-450) k/uL Neutrophils # (1.3-7.7) k/uL Lymphocytes # (1.0-4.8) k/uL BUN (9-20) mg/dL Creatinine (0.66-1.25) mg/dL Glucose (74-99) mg/dL POC Glucose (mg/dL) 212 H (75-99) mg/dL Calcium (8.4-10.2) mg/dL Creatine Kinase 50 L (55-170) U/L Urine Protein 1+ H (Negative) Urine Blood Trace H (Negative) Urine Mucus Rare H (None) /hpf 07/15/20 07/16/20 07/16/20 Range/Units 20:00 06:28 09:55 WBC 11.2 H (3.8-10.6) k/uL RBC 2.67 L (4.30-5.90) m/uL Hgb 8.1 L (13.0-17.5) gm/dL Hct 27.2 L (39.0-53.0) % MCV 102.0 H (80.0-100.0) fL MCHC 29.8 L (31.0-37.0) g/dL RDW 16.0 H (11.5-15.5) % Plt Count 547 H (150-450) k/uL Neutrophils # 10.0 H (1.3-7.7) k/uL Lymphocytes # 0.6 L (1.0-4.8) k/uL BUN (9-20) mg/dL Creatinine (0.66-1.25) mg/dL Glucose (74-99) mg/dL POC Glucose (mg/dL) 299 H 46 L (75-99) mg/dL Calcium (8.4-10.2) mg/dL Creatine Kinase (55-170) U/L Urine Protein (Negative) Urine Blood (Negative) Urine Mucus (None) /hpf 07/16/20 07/16/20 Range/Units 09:55 11:36 WBC (3.8-10.6) k/uL RBC (4.30-5.90) m/uL Hgb (13.0-17.5) gm/dL Hct (39.0-53.0) % MCV (80.0-100.0) fL MCHC (31.0-37.0) g/dL RDW (11.5-15.5) % Plt Count (150-450) k/uL Neutrophils # (1.3-7.7) k/uL Lymphocytes # (1.0-4.8) k/uL BUN 66 H (9-20) mg/dL Creatinine 3.64 H (0.66-1.25) mg/dL Glucose 243 H (74-99) mg/dL POC Glucose (mg/dL) 297 H (75-99) mg/dL Calcium 8.3 L (8.4-10.2) mg/dL Creatine Kinase (55-170) U/L Urine Protein (Negative) Urine Blood (Negative) Urine Mucus (None) /hpf Microbiology - Last 24 Hours (Table) 07/14/20 11:00 Gram Stain - Preliminary Pleural Fluid Body Fluid Culture - Preliminary 07/13/20 14:22 Blood Culture - Preliminary Blood No Growth after 48 hours
--- NOTE | 2020-07-16 14:41 | P.PN ---
Subjective Progress Note Date: 07/16/20 Follow-up for acute kidney injury. Feels better today. Thoracentesis was done yesterday and 1700 ML of fluid was removed. Objective - Vital Signs Vital signs: Vital Signs Temp 97.5 F L 07/16/20 08:00 Pulse 80 07/16/20 14:37 Resp 16 07/16/20 08:00 BP 137/63 07/16/20 08:00 Pulse Ox 97 07/16/20 08:00 Intake & Output 07/15/20 07/16/20 07/16/20 18:59 06:59 18:59 Intake Total 1140 462 Output Total 1100 Balance 1140 -1100 462 Weight 87 kg Intake: Oral 1140 462 Output: Urine 1100 Other: Voiding Method Urinal Urinal # Voids 1 1 - Exam No acute distress Decreased breath sounds S1-S2 heard Abdomen distended Trace edema - Labs CBC & Chem 7: 07/16/20 09:55 07/16/20 09:55 Labs: Abnormal Lab Results - Last 24 Hours (Table) 07/15/20 07/15/20 07/15/20 Range/Units 06:00 17:15 17:30 WBC (3.8-10.6) k/uL RBC (4.30-5.90) m/uL Hgb (13.0-17.5) gm/dL Hct (39.0-53.0) % MCV (80.0-100.0) fL MCHC (31.0-37.0) g/dL RDW (11.5-15.5) % Plt Count (150-450) k/uL Neutrophils # (1.3-7.7) k/uL Lymphocytes # (1.0-4.8) k/uL BUN (9-20) mg/dL Creatinine (0.66-1.25) mg/dL Glucose (74-99) mg/dL POC Glucose (mg/dL) 212 H (75-99) mg/dL Calcium (8.4-10.2) mg/dL Creatine Kinase 50 L (55-170) U/L Urine Protein 1+ H (Negative) Urine Blood Trace H (Negative) Urine Mucus Rare H (None) /hpf 07/15/20 07/16/20 07/16/20 Range/Units 20:00 06:28 09:55 WBC 11.2 H (3.8-10.6) k/uL RBC 2.67 L (4.30-5.90) m/uL Hgb 8.1 L (13.0-17.5) gm/dL Hct 27.2 L (39.0-53.0) % MCV 102.0 H (80.0-100.0) fL MCHC 29.8 L (31.0-37.0) g/dL RDW 16.0 H (11.5-15.5) % Plt Count 547 H (150-450) k/uL Neutrophils # 10.0 H (1.3-7.7) k/uL Lymphocytes # 0.6 L (1.0-4.8) k/uL BUN (9-20) mg/dL Creatinine (0.66-1.25) mg/dL Glucose (74-99) mg/dL POC Glucose (mg/dL) 299 H 46 L (75-99) mg/dL Calcium (8.4-10.2) mg/dL Creatine Kinase (55-170) U/L Urine Protein (Negative) Urine Blood (Negative) Urine Mucus (None) /hpf 07/16/20 07/16/20 Range/Units 09:55 11:36 WBC (3.8-10.6) k/uL RBC (4.30-5.90) m/uL Hgb (13.0-17.5) gm/dL Hct (39.0-53.0) % MCV (80.0-100.0) fL MCHC (31.0-37.0) g/dL RDW (11.5-15.5) % Plt Count (150-450) k/uL Neutrophils # (1.3-7.7) k/uL Lymphocytes # (1.0-4.8) k/uL BUN 66 H (9-20) mg/dL Creatinine 3.64 H (0.66-1.25) mg/dL Glucose 243 H (74-99) mg/dL POC Glucose (mg/dL) 297 H (75-99) mg/dL Calcium 8.3 L (8.4-10.2) mg/dL Creatine Kinase (55-170) U/L Urine Protein (Negative) Urine Blood (Negative) Urine Mucus (None) /hpf Microbiology - Last 24 Hours (Table) 07/14/20 11:00 Gram Stain - Preliminary Pleural Fluid Body Fluid Culture - Preliminary 07/13/20 14:22 Blood Culture - Preliminary Blood No Growth after 48 hours Assessment and Plan Assessment: #1 nonoliguric acute kidney injury secondary to type I cardiorenal syndrome. 2 chronic kidney disease stage IV secondary to diabetic kidney disease/IgA nephropathy with a baseline creatinine of 3.1-3.5 MG per DL. #3 right pleural effusion status post thoracentesis #4 anemia with chronic kidney disease #5 volume overload #6 metabolic alkalosis #7 diastolic CHF Plan: #1 continue with Lasix 40 mg IV 3 times a day for now. At discharge change to Lasix 80 mg by mouth twice a day. #2 creatinine slightly higher than baseline. #3 strict ins and outs, fluid restriction. #4 avoid nephrotoxic agents and hypotensive episodes. #5 no acute indication for renal replacement therapy at this time. Stable from nephrology for discharge
[2020-07-16 16:43] LABS: Glucose,Whole Blood 146 mg/dL (75-99)
--- NOTE | 2020-07-16 17:15 | P.PN ---
Subjective Progress Note Date: 07/16/20 Principal diagnosis: Acute on chronic hypoxic respiratory failure secondary to an acute exacerbation of diastolic congestive heart failure, enlarged right pleural effusion This is a 70-year-old, known history of COPD, chronic right-sided pleural effusion, coronary artery disease, chronic renal disease stage IV, iron deficiency anemia, history of diastolic congestive heart failure, history of right upper chest Mediport for iron infusions, history of IgA nephropathy, diabetic nephropathy, patient was seen in the ER with mostly 1 week history of increased shortness of breath, cough, no fever no chills no hemoptysis no chest pain. Upon presentation to the ER, patient was found to have moderate sized right-sided pleural effusion, hence this consult was initiated. BNP was elevated at 4760, otherwise his labs were basically normal except for low hemoglobin of 8.5, his last hemoglobin on 06/23/20 was 8.0. Previous echocardiogram on this patient questioned mitral valve disease, he was found to have inferior hypokinesis, but overall systolic function was unremarkable. I have performed thoracentesis on this patient back in April, and I removed about 1300 mL of fluid which was transudate of in nature. Hence it was cardiac in nature related to chronic congestive heart failure. The patient is seen today 07/14/2020 in follow-up on the selective care unit. He is currently sitting up at the bedside. Awake and alert in no acute distress. He has required increased oxygen from 5 L/m to nasal cannula and placed on the 100% nonrebreather mask. Chest x-ray reveals significant right- sided pleural effusion. Ultrasound was obtained showed a 12 cm pocket on the ri ght. No fluid on the left. He didn't undergo a right-sided thoracentesis today by Dr. Orta. 1.3 L of blood-tinged fluid was removed. Analysis pending. Immediately down to 5 L/m per nasal cannula. Feeling less short of breath. White count 11.4. Hemoglobin 8.3. Lymphocytes 0.5. Sodium 138. Potassium 4.4. Creatinine 3.82. He remains on Lasix 40 mg IV push every 8 hours. The patient is seen today 07/15/2020 in follow-up on the selective care unit. He is currently resting fairly comfortably in bed. Awake and alert in no acute distress. He had issues with chills and diaphoresis last evening. He is still requiring 6 L high flow nasal cannula to maintain O2 saturation in the 90s. He is currently afebrile hemodynamically stable. Blood cultures are pending. Pleural fluid culture pending. White count 12.9. Hemoglobin 9.1. Sodium 140. Potassium 4.5. Creatinine 10 and 3.75. He remains on Lasix 40 mg IV every 8 hours. Post thoracentesis chest x-ray continued to show persistent moderate right pleural effusion and pleural fluid collection and associated right basilar atelectasis and or infiltrate. Patchy left basilar atelectasis/infiltrate improved compared to previous. The patient is seen today 07/16/2020 in follow-up on the selective care unit. He is currently sitting up in bed. Doing quite a bit better today compared to yesterday. Denies any worsening shortness of breath, cough or congestion. Maintaining O2 saturation in the 90s on 2 L/m per nasal cannula. Afebrile. Hemodynamically stable. Blood cultures reveal no growth to date. Pleural fluid cultures pending. White count 11.2. Hemoglobin 8.1. Sodium 138. Potassium 4.4. Creatinine 3.64. Remains on Zosyn, bronchodilators, IV diuretics. Follow-up chest x-ray reveals chronic prevention change and mild cardiomegaly with persistent right basilar acute infiltrate/atelectasis and a small right pleural effusion. No evidence of pneumothorax post thoracentesis yesterday. Objective - Vital Signs Vital signs: Vital Signs Temp 97.5 F L 07/16/20 08:00 Pulse 80 07/16/20 14:37 Resp 16 07/16/20 14:00 BP 137/63 07/16/20 08:00 Pulse Ox 97 07/16/20 08:00 Intake & Output 07/15/20 07/16/20 07/16/20 18:59 06:59 18:59 Intake Total 1140 684 Output Total 1100 Balance 1140 -1100 684 Weight 87 kg Intake: Oral 1140 684 Output: Urine 1100 Other: Voiding Method Urinal Urinal # Voids 1 1 - Exam GENERAL EXAM: Alert, very pleasant, 70-year-old male patient, resting in bed, on 2 L nasal cannula. Head: Atraumatic, normocephalic. EENT: PERRLA, EOMI, neck is, chronic masses, no JVD. CHEST: No chest wall deformity. Symmetrical expansion. LUNGS: Diminished breath sounds and dullness at the right lung base. CVS: Regular rate and rhythm, normal S1 and S2, no gallops, 2/6 systolic murmur throughout the precordium. ABDOMEN: Soft, nontender. No hepatosplenomegaly, normal bowel sounds, no guarding or rigidity. EXTREMITIES: No clubbing, 1+ bipedal edema, no cyanosis, 2+ pulses and upper and lower extremities. MUSCULOSKELETAL: Muscle strength and tone normal. SPINE: No scoliosis or deformity SKIN: No rashes CENTRAL NERVOUS SYSTEM: Alert and oriented -3. No focal deficits, tone is normal in all 4 extremities. PSYCHIATRIC: Alert and oriented -3. Appropriate affect. Intact judgment and insight. - Labs CBC & Chem 7: 07/16/20 09:55 07/16/20 09:55 Labs: Abnormal Lab Results - Last 24 Hours (Table) 07/15/20 07/15/20 07/15/20 Range/Units 17:15 17:30 20:00 WBC (3.8-10.6) k/uL RBC (4.30-5.90) m/uL Hgb (13.0-17.5) gm/dL Hct (39.0-53.0) % MCV (80.0-100.0) fL MCHC (31.0-37.0) g/dL RDW (11.5-15.5) % Plt Count (150-450) k/uL Neutrophils # (1.3-7.7) k/uL Lymphocytes # (1.0-4.8) k/uL BUN (9-20) mg/dL Creatinine (0.66-1.25) mg/dL Glucose (74-99) mg/dL POC Glucose (mg/dL) 212 H 299 H (75-99) mg/dL Calcium (8.4-10.2) mg/dL Creatine Kinase 50 L (55-170) U/L 07/16/20 07/16/20 07/16/20 Range/Units 06:28 09:55 09:55 WBC 11.2 H (3.8-10.6) k/uL RBC 2.67 L (4.30-5.90) m/uL Hgb 8.1 L (13.0-17.5) gm/dL Hct 27.2 L (39.0-53.0) % MCV 102.0 H (80.0-100.0) fL MCHC 29.8 L (31.0-37.0) g/dL RDW 16.0 H (11.5-15.5) % Plt Count 547 H (150-450) k/uL Neutrophils # 10.0 H (1.3-7.7) k/uL Lymphocytes # 0.6 L (1.0-4.8) k/uL BUN 66 H (9-20) mg/dL Creatinine 3.64 H (0.66-1.25) mg/dL Glucose 243 H (74-99) mg/dL POC Glucose (mg/dL) 46 L (75-99) mg/dL Calcium 8.3 L (8.4-10.2) mg/dL Creatine Kinase (55-170) U/L 07/16/20 07/16/20 Range/Units 11:36 16:43 WBC (3.8-10.6) k/uL RBC (4.30-5.90) m/uL Hgb (13.0-17.5) gm/dL Hct (39.0-53.0) % MCV (80.0-100.0) fL MCHC (31.0-37.0) g/dL RDW (11.5-15.5) % Plt Count (150-450) k/uL Neutrophils # (1.3-7.7) k/uL Lymphocytes # (1.0-4.8) k/uL BUN (9-20) mg/dL Creatinine (0.66-1.25) mg/dL Glucose (74-99) mg/dL POC Glucose (mg/dL) 297 H 146 H (75-99) mg/dL Calcium (8.4-10.2) mg/dL Creatine Kinase (55-170) U/L Microbiology - Last 24 Hours (Table) 07/14/20 11:00 Gram Stain - Preliminary Pleural Fluid Body Fluid Culture - Preliminary 07/13/20 14:22 Blood Culture - Preliminary Blood No Growth after 48 hours Assessment and Plan Assessment: Acute on chronic hypoxic respiratory failure secondary to congestive heart failure, diastolic dysfunction Recurrent right pleural effusion secondary to acute on chronic diastolic congestive heart failure. Status post thoracentesis 07/15/2012 History of underlying COPD, presently inactive. Chronic kidney disease stage IV, patient is known to have diabetic nephropathy and possibly IgA nephropathy. Insulin-dependent diabetes. Chronic iron deficiency anemia Benign essential hypertension with hypertensive nephropathy. Peripheral vessel occlusive disease and previous intervention for total occlusion of the right sfa and PTCA and stenting of the left SFA Carotid artery disease and previous stenting. Plan: The patient was seen and evaluated by Dr. Orta The patient is currently stable from the pulmonary standpoint Chest x-ray and labs reviewed May need home oxygen Complete a course of antibiotics Continue bronchodilators Follow-up in the office in 1-2 weeks' time We will repeat a chest x-ray then I, the cosigning physician, performed a history & physical examination of the patient. Lungs sounds diminished in the right lung base. Maintaining good O2 saturations in the 90s on 2 L/m per nasal cannula. I discussed the assessment and plan of care with my nurse practitioner, Zhanna Cruz. I attest to the above note as dictated by her.
[2020-07-16 18:20] VITALS: BP 122/62; PULSE 69
--- NOTE | 2020-07-17 06:35 | DS ---
DISCHARGE SUMMARY DATE OF SERVICE: 07/16/2020 FINAL DIAGNOSES: 1. Shortness of breath secondary to massive right pleural effusion, possibly secondary to congestive heart failure acute exacerbation with acute on chronic diastolic dysfunction. 2. Acute on chronic renal failure with acute tubular necrosis. 3. Chronic kidney stage 3 baseline. 4. Elevated D-dimer. 5. History of chronic obstructive pulmonary disease. 6. History of coronary artery disease. 7. Diabetes mellitus type 2. 8. Gastroesophageal reflux disease. 9. History of gastrointestinal bleed. 10.Hypertension. 11.Hyperlipidemia. 12.History of pneumonia. 13.History of vascular disorder. 14.History of benign colonic polyps. 15.History of right upper chest tube MediPort infusion. 16.Peripheral vascular disease. 17.Restless legs syndrome. 18.Depression. 19.Posttraumatic stress disorder. 20.History of nicotine dependence. 21.History of THC. 22.Obesity with body mass index of 31.6. 23.Full code. DISCHARGE DISPOSITION: The patient will be discharged in a stable condition with a guarded prognosis. Total time taken was 35 minutes. HISTORY OF PRESENT ILLNESS: This is a 70-year-old gentleman with a past medical history of multiple medical problems was admitted with massive right pleural effusion as well as shortness of breath. Patient was treated with diuretics and multiple other medications. Thoracocentesis was done. Final fluid reports are pending. Dr. Orta, Nephrology and Cardiology saw the patient. Patient improved significantly. PHYSICAL EXAMINATION: On exam, vitals are stable. Cardiovascular, S2 and S2. Abdomen soft. Nervous system show no focal deficits. Respiratory shows a few scattered rhonchi. Multiple consultants did okay the discharge. The patient will be discharged in stable condition with guarded prognosis. DISCHARGE INSTRUCTIONS: Diet is cardiac. Activity limited until followup. Follow up with [facility], Dr. Myles in 2-3 days. CBC and BMP. Follow up with Dr. Orta and Cardiology as recommended. Fluid restriction to 1200 mL per 24 hours. MEDICATIONS: 1. Apresoline 25 mg t.i.d. 2. Ecotrin 81 mg q.h.s. 3. Glucotrol 5 mg a.c. lunch. 4. Iron sulfate 320 mg t.i.d. 5. Lantus 40 units subcu q.h.s. 6. Lasix 80 mg daily and 40 mg q.h.s. 7. Lopressor 25 mg t.i.d. 8. Plavix 75 mg at bedtime. 9. Prilosec 20 mg daily. 10.Requip 0.25 mg p.o. b.i.d. 11.Rocaltrol 0.5 mg p.o. Saturday. 12.Senna p.r.n. 13.Sodium bicarb 650 p.o. b.i.d. 14.Albuterol p.r.n. 15.Vitamin B12 500 mcg p.o. daily. 16.Vitamin D2 50,000 daily. 17.Zocor 40 mg q.h.s. 18.Augmentin 1 p.o. b.i.d. for 5 days. 19.DuoNeb q.i.d. and p.r.n. 20.Imdur ER 60 mg p.o. b.i.d. 21.Neurontin 200 mg p.o. b.i.d. 22.Nitrostat p.r.n. 23.Norvasc 10 mg p.o. daily. 24.Pulmicort 1 mg b.i.d. Once again the patient will be discharged in a stable condition with a guarded prognosis. Time taken was 35 minutes. MMODL / IJN: [id number] /
--- NOTE | 2020-07-17 11:47 | ECHOF ---
Referral Reason:CHF, compare to recent echo MEASUREMENTS -------- HEIGHT: 170.2 cm WEIGHT: 86.6 kg BP: IVSd: 1.6 cm (0.6 - 1.1) LVIDd: 5.0 cm (3.9 - 5.3) LVPWd: 1.6 cm (0.6 - 1.1) EDV(Teich): 120 ml IVSs: 1.9 cm LVIDs: 3.5 cm LVPWs: 1.8 cm %IVS Thck: 19 % ESV(Teich): 53 ml EF(Teich): 56 % %FS: 29 % SV(Teich): 67 ml IVC: 14.35 mm LALs A4C: 5.8 cm LAAs A4C: 23.2 cm LAESV A-L A4C: 78 ml LAESV MOD A4C: 73 ml LALs A2C: 5.9 cm LAAs A2C: 19.9 cm LAESV A-L A2C: 57 ml LAESV MOD A2C: 55 ml LAESV(A-L): 67 ml LAESV Index (A-L): 33.86 ml/m Ao Diam: 3.2 cm (2.0 - 3.7) LA Diam: 2.9 cm (2.7 - 3.8) AV Cusp: 1.7 cm (1.5 - 2.6) EPSS: 1.2 cm MV E Ray: 1.15 m/s MV DecT: 300 ms MV Dec [place]: 3.8 m/s MV A Ray: 1.06 m/s MV E/A Ratio: 1.09 MV PHT: 87 ms MV PHT: 94 ms MVA By PHT: 2.3 cm MV Vmax: 1.36 m/s MV Vmean: 0.69 m/s MV maxP.35 mmHg MV meanP.32 mmHg MV VTI: 59.4 cm MR Vmax: 3.47 m/s MR maxP.26 mmHg LVOT Vmax: 0.92 m/s LVOT maxP.37 mmHg AV Vmax: 2.02 m/s AV maxP.36 mmHg AV Vmax: 2.07 m/s AV Vmean: 1.57 m/s AV maxP.13 mmHg AV meanP.55 mmHg AV Env.Ti: 332 ms AV VTI: 52.0 cm AR Vmax: 3.17 m/s AR maxP.16 mmHg AR PHT: 922 ms AR Dec Time: 3181 ms AR Dec [place]: 1.0 m/s TR Vmax: 1.09 m/s TR maxP.71 mmHg RAP: 5.00 mmHg RVSP: 9.71 mmHg MV EF SLOPE: 18.60 mm/s (70 - 150) MV EXCURSION: 13.54 mm (> 18.000) FINDINGS -------- This was a technically adequate study. The left ventricular size is normal. There is moderate concentric left ventricular hypertrophy. O verall left ventricular systolic function is mildly impaired with, an EF between 45 - 50 %. Normal LAP Grade 1 Diastolic Dysfunction. Mid to basal inferiorlateral is hypokinetic The right ventricle is normal in size. LA is midly dilated 29-33ml/m2. The right atrial size is normal. Aortic valve is trileaflet and is mildly thickened. There is mild aortic regurgitation. There is mild aortic stenosis present. Peak/mean gradient across the Aortic Valve is 17.13mmHg / 10.55mmHg. The mitral valve leaflets are moderately thickened. Mild mitral annular calcification present. Mi ld mitral regurgitation is present. The peak and mean MV gradients are 7.35mmHg 2.32mmHg as measur ed by doppler. [id number] mitral stenosis. The tricuspid valve appears structurally normal. Mild tricuspid regurgitation present. Right vent ricular systolic pressure is normal at < 35 mmHg. There is no pulmonic regurgitation present. The aortic root size is normal. Normal inferior vena cava with normal inspiratory collapse consistent with estimated right atrial pre ssure of 5 mmHg. There is no pericardial effusion. CONCLUSIONS -------- 1. The left ventricular size is normal. 2. There is moderate concentric left ventricular hypertrophy. 3. Overall left ventricular systolic function is mildly impaired with, an EF between 45 - 50 %. 4. Normal LAP Grade 1 Diastolic Dysfunction. 5. Mid to basal inferiorlateral is hypokinetic 6. LA is midly dilated 29-33ml/m2. 7. Aortic valve is trileaflet and is mildly thickened. 8. There is mild aortic regurgitation. 9. There is mild aortic stenosis present. 10. Peak/mean gradient across the Aortic Valve is 17.13mmHg / 10.55mmHg. 11. The mitral valve leaflets are moderately thickened. 12. Mild mitral annular calcification present. 13. Mild mitral regurgitation is present. 14. The peak and mean MV gradients are 7.35mmHg 2.32mmHg as measured by doppler. 15. [id number] mitral stenosis. 16. Mild tricuspid regurgitation present. 17. There is no pericardial effusion. [employer] GRADER: Crystal Martínez RDCS
== END 2020-07-16 18:07 | disposition home or self-care (01) | DRG 291 ==
LOC: EC 14:10 → 3SCARD 16:32
PROVIDERS: ADMIT Hospitalist; ATTEND Hospitalist
PROC: 0W993ZZ Drainage of Right Pleural Cavity, Percutaneous Approach (ICD-10-PCS; principal; 2020-07-14)
PROC: 0W993ZZ Drainage of Right Pleural Cavity, Percutaneous Approach (ICD-10-PCS; 2020-07-15)
DX: I13.0 Hypertensive heart and chronic kidney disease with heart failure and stage 1 through stage 4 chronic kidney disease, or unspecified chronic kidney disease (principal); I50.33 Acute on chronic diastolic (congestive) heart failure; N17.0 Acute kidney failure with tubular necrosis; J96.21 Acute and chronic respiratory failure with hypoxia; N18.4 Chronic kidney disease, stage 4 (severe); E87.3 Alkalosis; J91.8 Pleural effusion in other conditions classified elsewhere; I70.92 Chronic total occlusion of artery of the extremities; J98.11 Atelectasis; N02.8 Recurrent and persistent hematuria with other morphologic changes; Z20.828 Contact with and (suspected) exposure to other viral communicable diseases; K21.9 Gastro-esophageal reflux disease without esophagitis; J44.9 Chronic obstructive pulmonary disease, unspecified; G25.81 Restless legs syndrome; F43.10 Post-traumatic stress disorder, unspecified; F32.9 Major depressive disorder, single episode, unspecified; F17.200 Nicotine dependence, unspecified, uncomplicated; E78.5 Hyperlipidemia, unspecified; E66.9 Obesity, unspecified; F12.90 Cannabis use, unspecified, uncomplicated; E11.51 Type 2 diabetes mellitus with diabetic peripheral angiopathy without gangrene; D63.1 Anemia in chronic kidney disease; D50.9 Iron deficiency anemia, unspecified; E11.22 Type 2 diabetes mellitus with diabetic chronic kidney disease; I25.10 Atherosclerotic heart disease of native coronary artery without angina pectoris; I05.9 Rheumatic mitral valve disease, unspecified; Z79.4 Long term (current) use of insulin; Z79.899 Other long term (current) drug therapy; Z91.041 Radiographic dye allergy status; Z98.61 Coronary angioplasty status; Z87.19 Personal history of other diseases of the digestive system; Z87.01 Personal history of pneumonia (recurrent); Z80.9 Family history of malignant neoplasm, unspecified; Z68.31 Body mass index [BMI] 31.0-31.9, adult; Z90.49 Acquired absence of other specified parts of digestive tract; Z98.890 Other specified postprocedural states
CPT/HCPCS: 36415; 71045; 71250; 74176; 76604; 80048; 80053; 81001; 82550; 82553; 82945; 83605; 83615; 83735; 83880; 84157; 84484; 85025; 85379; 85610; 85730; 87040; 87070; 87205; 87635; 89050; 93005; 93306; 94640; 94760; 96374; 99285

== ENCOUNTER → 2020-12-01 | Outpatient (CLI) | payer OTHER ==
--- NOTE | 2020-12-01 12:01 | XR ---
EXAMINATION TYPE: XR chest 2V DATE OF EXAM: 12/01/2020 COMPARISON: Chest x-ray 07/16/2020, chest x-ray 10/13/2020 HISTORY: Chronic kidney disease stage IV, abnormal chest x-ray, shortness of breath TECHNIQUE: Frontal and lateral views of the chest are obtained. FINDINGS: There is persistent obscured right hemidiaphragm, blunting of the right costophrenic angle , abnormal increased attenuation at the right lung base. No evident pneumothorax. Port is stable. Car diac mediastinal silhouette is not changed. Aorta is dense. Bones are stable. There are coronary bianca ry calcifications. IMPRESSION: Correlate for right lower lobe pneumonia and associated effusion. Coronary artery diseas e.
--- NOTE | 2020-12-01 14:31 | US ---
EXAMINATION TYPE: US abdomen limited DATE OF EXAM: 12/01/2020 COMPARISON: NONE CLINICAL HISTORY: N18.4 Chronic kidney disease stage IV. Pt states ABD distention No evidence of ascites visualized Limited abdomen ultrasound was performed. IMPRESSION: No ascites evident.
== END | disposition home or self-care (01) ==
LOC: RADUSWWP 11:05
PROVIDERS: ATTEND Internal Medicine
DX: I25.10 Atherosclerotic heart disease of native coronary artery without angina pectoris (principal); J18.1 Lobar pneumonia, unspecified organism; J90 Pleural effusion, not elsewhere classified; N18.4 Chronic kidney disease, stage 4 (severe)
CPT/HCPCS: 71046; 76705

== ENCOUNTER 2020-12-21 12:51 | Day surgery (SDC) | payer OTHER ==
[2020-12-19 11:54] VITALS: BMI 29.6
[~2020-12-21 12:51] MED LIST changes: -DEXAMETHASONE SOD PHOSPHATE 10 MG/ML 1 ML VIAL IV ONE; -ETOMIDATE 2 MG/ML 10 ML VIAL ONE; -HEPARIN SODIUM,PORCINE 100 UNIT/ML 5 ML VIAL IV ONE; -LIDOCAINE 1% INJ 10MG/ML (20 ML MDV) SQ ONE; -MIDAZOLAM 2 MG/2 ML VIAL ONE; -ONDANSETRON 4 MG/2 ML VIAL ONE; -Pre Op ABX Message 1 EACH MISC MISCELLANE ONE; -SODIUM CHLORIDE 0.9% 1,000 ML IV ONE; -SODIUM CHLORIDE 0.9% 100 ML with ceFAZolin 2,000 MG IV ONE; -fentaNYL (PF) 50 MCG/ML 2 ML AMP ONE
[2020-12-21] MEDS ORDERED: SODIUM CHLORIDE 0.9% 1,000 ML IV ONE (13:33)
[2020-12-21 13:42] LABS: Glucose,Whole Blood 275 mg/dL (75-99)
[2020-12-21] MEDS ORDERED: BUPIVACAINE (PF) 0.5% 30 ML VIAL SQ ONE (15:08)
[2020-12-21] MEDS ORDERED: LIDOCAINE 1% INJ 10MG/ML (20 ML MDV) SQ ONE (15:08)
[2020-12-21] MEDS ORDERED: HEPARIN SODIUM,PORCINE 2,000 UNIT in SODIUM CHLORIDE 0.9% 500 ML 500 ML IRRIGATION ONE (15:10)
[2020-12-21] MEDS ORDERED: ceFAZolin 2,000 MG in SODIUM CHLORIDE 0.9% 500 ML IRRIGATION ONE (15:11)
[2020-12-21] MEDS ORDERED: THROMBIN (BOVINE) 5,000 UNIT VIAL TOPICAL ONE (15:13)
[2020-12-21 16:59] VITALS: TEMP 96.8
--- NOTE | 2020-12-21 17:06 | P.OP ---
Date of Procedure: 12/21/20 Description of Procedure: Preoperative diagnosis: Chronic kidney disease Postoperative diagnosis: Same Procedure: [Left upper extremity brachial artery to axillary vein 4 x 7 PTFE AV graft] Surgeon: Jennifer Toth D.O. EBL: 50 mL[] IV fluids: [300 mL] Anesthesia: Monitored anesthesia care and local Urine output: [Not measured] Drains: [None] Complications: [None immediately apparent] Condition: [Stable to recovery] Operative indication and findings: [The patient is a 70-year-old male in today with chronic kidney disease. It was recommended he undergo placement and creation of dialysis access. Vein mapping was performed in the office showing no evidence of adequate sized vessels for a fistula creation therefore a brachial to axillary bypass graft was decided upon. Risks and benefits for this were discussed. He seemingly understood and was willing to proceed as such] Procedure in detail: [The left upper extremity was prepped and draped in usual sterile fashion. A preprocedure timeout was performed, all parties were in agreement. He brachial artery was palpated. The skin was anesthetized and a transverse incision was made just proximal to the antecubital fossa. Subcutaneous tissues were dissected with electrocautery. The fascia was opened. The brachial artery was identified and dissected free circumferentially proximally and distally. Attention was then turned towards the axillary vein. In the axillar fold an incision was made after proper anesthetization of the skin. Large cautery was used to divide through the soft tissues. The vein was identified medial to the artery. It was dissected free. The basilic vein was also identified and appeared to travel more proximally and did not converge into the vein anywhere within the incisional field. After the vein was dissected free the proposed tunnel was anesthetized. A tunneler was placed and the 4 x 7 graft was then placed through the tunnel with the 4 mm end at the arterial side of the brachial artery. The patient was then heparinized. After proper heparinization, flow was occluded through the brachial artery. An arteriotomy is performed and enlarged with the Cullen scissors. The graft was cut to size and an anastomosis was created with 6-0 Prolene. Prior to completion of the anastomosis the graft was flushed backflow and forward flow. The anastomosis was completed. The remaining portion Was then flushed with heparinized saline and clamped. Attention was then turned towards the axillary vein. A Satinsky clamp was placed. A venotomy was performed. The graft was cut to size and an anastomosis was created using 6-0 Prolene. Prior to completion of the anastomosis the vein was led back and forward bleed. The graft was also flushed of any air bubbles from the arterial side. The anastomosis completed and hemostasis at both sites was achieved with Surgicel. The areas were both copiously irrigated with antibiotic saline there was a good thrill proximal graft with good augmentation. He continued to have a palpable radial pulse after flow through the AV graft was established. This w as all confirmed with good flow proximal and distally to all anastomoses. The deep dermal tissues were reapproximated with interrupted sutures of 3-0 Vicryl at both sites. The skin was approximate with running 4-0 Monocryl. Glue was placed along with a light pressure dressing. The patient was allowed awaken from anesthesia and transferred to recovery in stable condition having tolerated his procedure well.] Plan - Discharge Summary Discharge Rx Participant: Yes New Discharge Prescriptions: New HYDROcodone/APAP 5-325MG [[place] 5-325] 1 tab PO Q4HR PRN 3 Days #18 tab PRN Reason: Pain No Action Simvastatin [Zocor] 40 mg PO HS Ergocalciferol (Vitamin D2) [Vitamin D2] 50,000 unit PO Q14D Aspirin EC [Ecotrin Low Dose] 81 mg PO HS Ferrous Sulfate [Iron (65 MG Elemental)] 325 mg PO TID Cyanocobalamin [Vitamin B-12] 1,000 mcg PO DAILY rOPINIRole HCL [Requip] 0.25 mg PO BID glipiZIDE [Glucotrol] 5 mg PO BID calcitrioL [Rocaltrol] 0.5 mcg PO SUWE Omeprazole [PriLOSEC] 20 mg PO HS Clopidogrel [Plavix] 75 mg PO HS Isosorbide Mononitrate ER [Imdur] 60 mg PO BID #60 tab.er.24h Nitroglycerin Sl Tabs [Nitrostat] 0.4 mg SUBLINGUAL Q5M PRN #20 tab PRN Reason: Chest Pain amLODIPine [Norvasc] 10 mg PO DAILY #30 tab Gabapentin [Neurontin] 200 mg PO BID cap hydrALAZINE HCL [Apresoline] 25 mg PO TID Furosemide [Lasix] 80 mg PO DAILY Insulin Glargine [Lantus] 10 unit SQ HS Metoprolol Tartrate [Lopressor] 25 mg PO TID DULoxetine HCL [Cymbalta] 20 mg PO DAILY Docusate [Colace] 100 mg PO BID Ascorbic Acid [Vitamin C] 500 mg PO DAILY Melatonin 5 mg PO HS Folic Acid-Vit B Complex-Vit C [Nephrocaps] 1 each PO DAILY Discharge Medication List Ergocalciferol (Vitamin D2) [Vitamin D2] 50,000 unit PO Q14D 07/18/17 [History] Simvastatin [Zocor] 40 mg PO HS 07/18/17 [History] Aspirin EC [Ecotrin Low Dose] 81 mg PO HS 02/10/18 [History] Ferrous Sulfate [Iron (65 MG Elemental)] 325 mg PO TID 02/10/18 [History] Cyanocobalamin [Vitamin B-12] 1,000 mcg PO DAILY 09/23/18 [History] rOPINIRole HCL [Requip] 0.25 mg PO BID 01/09/19 [History] glipiZIDE [Glucotrol] 5 mg PO BID 05/22/19 [History] calcitrioL [Rocaltrol] 0.5 mcg PO SUWE 09/17/19 [History] Omeprazole [PriLOSEC] 20 mg PO HS 09/25/19 [History] Clopidogrel [Plavix] 75 mg PO HS 04/18/20 [History] Isosorbide Mononitrate ER [Imdur] 60 mg PO BID #60 tab.er.24h 04/21/20 [Rx] Nitroglycerin Sl Tabs [Nitrostat] 0.4 mg SUBLINGUAL Q5M PRN #20 tab 04/21/20 [Rx] Gabapentin [Neurontin] 200 mg PO BID cap 04/28/20 [Rx] amLODIPine [Norvasc] 10 mg PO DAILY #30 tab 04/28/20 [Rx] hydrALAZINE HCL [Apresoline] 25 mg PO TID 05/19/20 [History] Furosemide [Lasix] 80 mg PO DAILY 05/26/20 [History] Insulin Glargine [Lantus] 10 unit SQ HS 07/13/20 [History] Metoprolol Tartrate [Lopressor] 25 mg PO TID 07/13/20 [History] DULoxetine HCL [Cymbalta] 20 mg PO DAILY 10/27/20 [History] Ascorbic Acid [Vitamin C] 500 mg PO DAILY 12/19/20 [History] Docusate [Colace] 100 mg PO BID 12/19/20 [History] Folic Acid-Vit B Complex-Vit C [Nephrocaps] 1 each PO DAILY 12/19/20 [History] Melatonin 5 mg PO HS 12/19/20 [History] HYDROcodone/APAP 5-325MG [[place] 5-325] 1 tab PO Q4HR PRN 3 Days #18 tab 12/21/20 [Rx] Activity/Diet/Wound Care/Special Instructions: May restart antiplatelet/anticoagulation medication tomorrow. Keep a dressing on arm for 48 hours. Elevate extremity. Follow-up with me in the office in 2 weeks. May shower once outer dressing is removed. Discharge Disposition: HOME SELF-CARE
[2020-12-21 17:35] LABS: Glucose,Whole Blood 234 mg/dL (75-99)
[2020-12-21 17:47] VITALS: RESP 16
[2020-12-21 18:18] VITALS: BP 131/74; PULSE 62
[2020-12-22] MEDS ORDERED: LIDOCAINE 1% INJ 10MG/ML (20 ML MDV) ONE (14:15)
[2020-12-22] MEDS ORDERED: MIDAZOLAM 2 MG/2 ML VIAL ONE (14:15)
[2020-12-22] MEDS ORDERED: KETAMINE 10 MG/ML 20 ML VIAL ONE (14:15)
[2020-12-22] MEDS ORDERED: fentaNYL (PF) 50 MCG/ML 2 ML AMP ONE (14:15)
[2020-12-22] MEDS ORDERED: HEPARIN SODIUM,PORCINE 5,000 UNIT/ML 1 ML VIAL ONE (14:15)
[2020-12-22] MEDS ORDERED: PROPOFOL 10 MG/ML 20 ML VIAL IV ONE (14:15)
== END 2020-12-21 18:20 | disposition home or self-care (01) ==
LOC: OR 12:51
PROVIDERS: ATTEND Surgery
DX: I12.9 Hypertensive chronic kidney disease with stage 1 through stage 4 chronic kidney disease, or unspecified chronic kidney disease (principal); E11.22 Type 2 diabetes mellitus with diabetic chronic kidney disease; N18.9 Chronic kidney disease, unspecified; I25.10 Atherosclerotic heart disease of native coronary artery without angina pectoris; D64.9 Anemia, unspecified; Z80.9 Family history of malignant neoplasm, unspecified; F17.290 Nicotine dependence, other tobacco product, uncomplicated; Z79.82 Long term (current) use of aspirin; Z79.4 Long term (current) use of insulin; Z79.899 Other long term (current) drug therapy
CPT/HCPCS: 36830; L8670; J1644; J0690 ×2; J2405; J2001

== ENCOUNTER 2020-12-31 13:50 | Inpatient (IN) | payer OTHER, MEDICARE ==
[2020-12-31] MEDS ORDERED: ONDANSETRON 4 MG/2 ML VIAL IVP STA (14:22)
[2020-12-31] MEDS ORDERED: MORPHINE SULFATE 4 MG/ML SYRINGE IVP STA ×2 (14:22→15:43)
--- NOTE | 2020-12-31 14:46 | ED ---
Recheck HPI - General Chief Complaint: Recheck/Abnormal Lab/Rx Stated Complaint: Shaking Time Seen by Provider: 12/31/20 14:00 Source: patient Mode of arrival: ambulatory Limitations: no limitations - History of Present Illness Initial Comments: 70 year-old male patient presents to the emergency department for evaluation of tremor for the last week. States that it is uncontrollable and keeps him awake at night. Patient is also report pain to the bilateral feet. States it is an aching pain. Denies any fever or chills. Reports feeling extremely tired due to not sleeping. States he has had similar symptoms in the past, but usually if he has a medication change, no recent changes. Denies any recent head injury. He also reports some intermittent chest pain. Denies shortness of breath. Denies nausea, vomiting, or diarrhea. Patient denies any recent rash, cough, diarrhea, constipation, back pain, numbness, tingling, dizziness, weakness, hematuria, d ysuria, urinary urgency, urinary frequency, or any other complaints. - Related Data Home Medications Medication Instructions Recorded Confirmed Ergocalciferol (Vitamin D2) 50,000 unit PO Q14D 07/18/17 12/31/20 [Vitamin D2] Simvastatin [Zocor] 40 mg PO HS 07/18/17 12/31/20 Aspirin EC [Ecotrin Low Dose] 81 mg PO HS 02/10/18 12/31/20 Ferrous Sulfate [Iron (65 MG 325 mg PO TID 02/10/18 12/31/20 Elemental)] Cyanocobalamin [Vitamin B-12] 1,000 mcg PO DAILY 09/23/18 12/31/20 rOPINIRole HCL [Requip] 0.25 mg PO BID 01/09/19 12/31/20 glipiZIDE [Glucotrol] 5 mg PO BID 05/22/19 12/31/20 calcitrioL [Rocaltrol] 0.5 mcg PO SUWE 09/17/19 12/31/20 Omeprazole [PriLOSEC] 20 mg PO HS 09/25/19 12/31/20 Clopidogrel [Plavix] 75 mg PO HS 04/18/20 12/31/20 hydrALAZINE HCL [Apresoline] 25 mg PO TID 05/19/20 12/31/20 Furosemide [Lasix] 80 mg PO BID 05/26/20 12/31/20 Insulin Glargine [Lantus] 10 unit SQ HS 07/13/20 12/31/20 Metoprolol Tartrate [Lopressor] 25 mg PO TID 07/13/20 12/31/20 DULoxetine HCL [Cymbalta] 20 mg PO DAILY 10/27/20 12/31/20 Ascorbic Acid [Vitamin C] 500 mg PO DAILY 12/19/20 12/31/20 Folic Acid-Vit B Complex-Vit C 1 cap PO DAILY 12/19/20 12/31/20 [Nephrocaps] Melatonin 5 mg PO HS 12/19/20 12/31/20 Sennosides-Docusate Sodium 2 tab PO TID PRN 12/31/20 12/31/20 [Senokot-S] Previous Rx's Medication Instructions Recorded Isosorbide Mononitrate ER [Imdur] 60 mg PO BID #60 tab.er.24h 04/21/20 Nitroglycerin Sl Tabs [Nitrostat] 0.4 mg SUBLINGUAL Q5M PRN #20 tab 04/21/20 Gabapentin [Neurontin] 200 mg PO BID cap 04/28/20 amLODIPine [Norvasc] 10 mg PO DAILY #30 tab 04/28/20 HYDROcodone/APAP 5-325MG [[place] 1 tab PO Q4HR PRN 3 Days #18 tab 12/21/20 5-325] Allergies Allergy/AdvReac Type Severity Reaction Status Date / Time Iodinated Contrast Media AdvReac CAN'T Verified 12/31/20 15:39 TAKE, RENAL DISEASE Iodine and Iodide Containing AdvReac CAN'T Verified 12/31/20 15:39 Produc TAKE, RENAL DISEASE Review of Systems ROS Statement: Those systems with pertinent positive or pertinent negative responses have been documented in the HPI. ROS Other: All systems not noted in ROS Statement are negative. Past Medical History Past Medical History: Coronary Artery Disease (CAD), Chest Pain / Angina, COPD, Diabetes Mellitus, GERD/Reflux, GI Bleed, Hyperlipidemia, Hypertension, Pn eumonia, Renal Disease, Vascular Disorder Additional Past Medical History / Comment(s): IDDM type II, lower GI bleed, benign colon polyps, spouse states micro bleeds in intestine are suspected, abdominal distention comes and goes which is nearly daily, partial SBO, chronic renal disease stage IV, iron anemia with iron transfusions (recent R upper chest mediport for infusions), PVD, stable lung nodules, chronic low back pain with bilateral sciatica, RLS, vertigo, insomnia, past agent orange exposure. History of Any Multi-Drug Resistant Organisms: None Reported Past Surgical History: Cholecystectomy, Heart Catheterization Additional Past Surgical History / Comment(s): 03/25/20 R sublclavian mediport, R carotid stent done in [place], EGD/colonoscopyDece2016, endoscopic capsule, fx lt wrist -sx re-set, aortagram, bilateral leg revascularizations/stents Past Anesthesia/Blood Transfusion Reactions: No Reported Reaction Additional Past Anesthesia/Blood Transfusion Reaction / Comment(s): Pt has had blood transfusion without reaction. Past Psychological History: Depression, PTSD Smoking Status: Current every day smoker Past Alcohol Use History: None Reported Past Drug Use History: None Reported - Past Family History Father History Unknown: Yes Mother Family Medical History: Cancer Additional Family Medical History / Comment(s): Mother from metastatic cancer pelvic origin. General Exam Limitations: no limitations General appearance: alert, in no apparent distress, other (This is a well devloped, well nourished adult male patient, appears pale. Vital signs upon presentation are temperature 97.7F, pulse 77, respirations 22, blood pressure 114/51, pulse ox 97% on room air.) Eye exam: Present: normal appearance, PERRL, EOMI. Absent: scleral icterus, conjunctival injection, periorbital swelling ENT exam: Present: normal exam, normal oropharynx, mucous membranes moist Respiratory exam: Present: normal lung sounds bilaterally. Absent: respiratory distress, wheezes, rales, rhonchi, stridor Cardiovascular Exam: Present: regular rate, normal rhythm, normal heart sounds. Absent: systolic murmur, diastolic murmur, rubs, gallop, clicks GI/Abdominal exam: Present: soft, normal bowel sounds. Absent: distended, tenderness, guarding, rebound, rigid Neurological exam: Present: alert, oriented X3, CN II-XII intact, other (Resting tremor noted to the right side of his body involves arm and right leg. ) Expanded Cranial nerves: EOM's Intact: Normal, Nystagmus: Normal Motor strength exam: RUE: 5, LUE: 5, RLE: 5, LLE: 5 Psychiatric exam: Present: normal affect, normal mood Skin exam: Present: warm, dry, intact, normal color. Absent: rash Course Vital Signs 12/31/20 12/31/20 12/31/20 13:54 14:16 15:36 Temperature 97.7 F Pulse Rate 77 68 79 Respiratory 22 20 20 Rate Blood Pressure 114/51 142/58 141/67 O2 Sat by Pulse 97 97 95 Oximetry 12/31/20 12/31/20 12/31/20 15:58 17:20 18:45 Temperature 98.0 F Pulse Rate 74 71 66 Respiratory 20 18 18 Rate Blood Pressure 153/64 140/60 149/80 O2 Sat by Pulse 96 95 96 Oximetry Medical Decision Making - Medical Decision Making 70 year-old male patient presented with complaints of right sided tremor and foot pain. Physical examination did reveal right sided tremor at rest. He is otherwise neurologically intact without focal deficits. There is wheezing bilaterally. He is afebrile. 96% on 2L. Labs show persistent renal failure. Decreased hemoglobin at 7.3 which is a change since 12/29/20. BP is stable. Chest xray shows infiltrate and pleural effusion right lower lobe. He will be admitted for further evaluation and treatment. Will start antibiotics for possible pneumonia. We will consult neurology. He is agreeable. My attending is Dr. Rowley. - Lab Data Result diagrams: 12/31/20 14:46 12/31/20 14:46 Lab Results 12/31/20 12/31/20 12/31/20 Range/Units 14:46 14:46 14:46 WBC 9.5 (3.8-10.6) k/uL RBC 2.15 L (4.30-5.90) m/uL Hgb 7.3 L D (13.0-17.5) gm/dL Hct 22.2 L (39.0-53.0) % MCV 103.3 H (80.0-100.0) fL MCH 34.0 (25.0-35.0) pg MCHC 32.9 (31.0-37.0) g/dL RDW 15.4 (11.5-15.5) % Plt Count 266 (150-450) k/uL MPV 8.7 Neutrophils % 86 % Lymphocytes % 7 % Monocytes % 6 % Eosinophils % 1 % Basophils % 0 % Neutrophils # 8.1 H (1.3-7.7) k/uL Lymphocytes # 0.6 L (1.0-4.8) k/uL Monocytes # 0.5 (0-1.0) k/uL Eosinophils # 0.1 (0-0.7) k/uL Basophils # 0.0 (0-0.2) k/uL Macrocytosis Moderate PT 9.5 (9.0-12.0) sec INR 0.9 (<1.2) APTT 29.6 (22.0-30.0) sec Sodium 135 L (137-145) mmol/L Potassium 4.3 (3.5-5.1) mmol/L Chloride 105 (98-107) mmol/L Carbon Dioxide 22 (22-30) mmol/L Anion Gap 8 mmol/L BUN 66 H (9-20) mg/dL Creatinine 4.06 H (0.66-1.25) mg/dL Est GFR (CKD-EPI)AfAm 16 (>60 ml/min/1.73 sqM) Est GFR (CKD-EPI)NonAf 14 (>60 ml/min/1.73 sqM) Glucose 368 H (74-99) mg/dL POC Glucose (mg/dL) (75-99) mg/dL POC Glu Cro ID Calcium 8.4 (8.4-10.2) mg/dL Total Bilirubin 0.2 (0.2-1.3) mg/dL AST 15 L (17-59) U/L ALT 6 (4-49) U/L Alkaline Phosphatase 97 (38-126) U/L Troponin I (0.000-0.034) ng/mL Total Protein 5.1 L (6.3-8.2) g/dL Albumin 2.8 L (3.5-5.0) g/dL Urine Color Urine Appearance (Clear) Urine pH (5.0-8.0) Ur Specific [place] (1.001-1.035) Urine Protein (Negative) Urine Glucose (UA) (Negative) Urine Ketones (Negative) Urine Blood (Negative) Urine Nitrite (Negative) Urine Bilirubin (Negative) Urine Urobilinogen (<2.0) mg/dL Ur Leukocyte Esterase (Negative) Urine RBC (0-5) /hpf Urine WBC (0-5) /hpf 12/31/20 12/31/20 12/31/20 Range/Units 14:46 16:47 17:17 WBC (3.8-10.6) k/uL RBC (4.30-5.90) m/uL Hgb (13.0-17.5) gm/dL Hct (39.0-53.0) % MCV (80.0-100.0) fL MCH (25.0-35.0) pg MCHC (31.0-37.0) g/dL RDW (11.5-15.5) % Plt Count (150-450) k/uL MPV Neutrophils % % Lymphocytes % % Monocytes % % Eosinophils % % Basophils % % Neutrophils # (1.3-7.7) k/uL Lymphocytes # (1.0-4.8) k/uL Monocytes # (0-1.0) k/uL Eosinophils # (0-0.7) k/uL Basophils # (0-0.2) k/uL Macrocytosis PT (9.0-12.0) sec INR (<1.2) APTT (22.0-30.0) sec Sodium (137-145) mmol/L Potassium (3.5-5.1) mmol/L Chloride (98-107) mmol/L Carbon Dioxide (22-30) mmol/L Anion Gap mmol/L BUN (9-20) mg/dL Creatinine (0.66-1.25) mg/dL Est GFR (CKD-EPI)AfAm (>60 ml/min/1.73 sqM) Est GFR (CKD-EPI)NonAf (>60 ml/min/1.73 sqM) Glucose (74-99) mg/dL POC Glucose (mg/dL) 382 H (75-99) mg/dL POC Glu Cro ID Dexter, [place] Calcium (8.4-10.2) mg/dL Total Bilirubin (0.2-1.3) mg/dL AST (17-59) U/L ALT (4-49) U/L Alkaline Phosphatase (38-126) U/L Troponin I <0.012 (0.000-0.034) ng/mL Total Protein (6.3-8.2) g/dL Albumin (3.5-5.0) g/dL Urine Color Light Yellow Urine Appearance Clear (Clear) Urine pH 5.5 (5.0-8.0) Ur Specific [place] 1.012 (1.001-1.035) Urine Protein 2+ H (Negative) Urine Glucose (UA) 3+ H (Negative) Urine Ketones Negative (Negative) Urine Blood Negative (Negative) Urine Nitrite Negative (Negative) Urine Bilirubin Negative (Negative) Urine Urobilinogen <2.0 (<2.0) mg/dL Ur Leukocyte Esterase Negative (Negative) Urine RBC 1 (0-5) /hpf Urine WBC <1 (0-5) /hpf - Radiology Data Radiology results: report reviewed, image reviewed CT brain without contrast was obtained. Report was reviewed in its entirety. Impression by Dr. Barrera shows no acute intracranial abnormality. Two-view x-ray of the chest is obtained. Report reviewed in its entirety. Impression by Dr. Barrera shows right pleural effusion and right lower lobe mild infiltrate and atelectasis slightly worse than last exam. Probably some mild heart failure. Pulmonary vascularity increase slightly. Disposition Clinical Impression: Tremor, Anemia, Right lower lobe pneumonia Disposition: ADMITTED IP TO THIS [facility] Condition: Serious Decision to Admit Reason: Admit from EC Decision Date: 12/31/20 Decision Time: 17:50
[2020-12-31 15:02] LABS: Basophils % (A) 0 %; Eosinophils # (A) 0.1 k/uL (0-0.7); Eosinophils % (A) 1 %; HCT 22.2 % (39.0-53.0); Lymphocytes # (A) 0.6 k/uL (1.0-4.8); Lymphocytes % (A) 7 %; MCHC 32.9 g/dL (31.0-37.0); MCV 103.3 fL (80.0-100.0); Macrocytosis Moderate; Mean Platelet Volume 8.7; Monocytes # (A) 0.5 k/uL (0-1.0); Monocytes % (A) 6 %; Neutrophils # (A) 8.1 k/uL (1.3-7.7); Neutrophils % (A) 86 %; Platelet Count 266 k/uL (150-450); RBC 2.15 m/uL (4.30-5.90); RDW 15.4 % (11.5-15.5); WBC 9.5 k/uL (3.8-10.6)
--- NOTE | 2020-12-31 15:03 | XR ---
EXAMINATION TYPE: XR chest 2V DATE OF EXAM: 12/31/2020 COMPARISON: 12/14/2020 HISTORY: Altered mental status TECHNIQUE: 2 views FINDINGS: There is blunting right costophrenic angle. There is mild pulmonary congestion. There is so me infiltrate right lung base. There is right central venous catheter with tip in the superior vena c ren. There are chest leads. IMPRESSION: Right pleural effusion and right lower lobe mild infiltrate and atelectasis slightly wors e than last exam. There is probably some mild heart failure. Pulmonary vascularity increased slightly .
[2020-12-31 15:19] LABS: INR 0.9 (<1.2); Partial Thromboplastin Time 29.6 sec (22.0-30.0); Prothrombin Time 9.5 sec (9.0-12.0)
[2020-12-31 15:36] LABS: HGB 7.3 gm/dL (13.0-17.5)
[2020-12-31 15:57] LABS: Albumin 2.8 g/dL (3.5-5.0); Calcium 8.4 mg/dL (8.4-10.2); Potassium 4.3 mmol/L (3.5-5.1); Total Bilirubin 0.2 mg/dL (0.2-1.3); Total Protein 5.1 g/dL (6.3-8.2)
--- NOTE | 2020-12-31 16:23 | CT ---
EXAMINATION TYPE: CT brain wo con DATE OF EXAM: 12/31/2020 COMPARISON: None HISTORY: Rt sided tremor. Pt denies dx of MS/Parkinsons. PT said tremors worse in last week. CT DLP: 1159.4 mGycm Automated exposure control for dose reduction was used. There is some mild cerebral atrophy. There is no mass effect nor midline shift. There is no sign of i ntracranial hemorrhage. Calvarium is intact. IMPRESSION: Mild atrophy. No acute intracranial abnormality.
[2020-12-31 17:02] LABS: Appearance,Urine Clear (Clear); Bilirubin,Urine Negative (Negative); Blood,Urine Negative (Negative); Color,Urine Light Yellow; Glucose,Urine (UA) 3+ (Negative); Ketones,Urine Negative (Negative); Leukocyte Esterase,Urine Negative (Negative); Nitrite,Urine Negative (Negative); PH, Urine 5.5 (5.0-8.0); Protein,Urine 2+ (Negative); RBC,Urine 1 /hpf (0-5); Specific Gravity,Urine 1.012 (1.001-1.035); Urobilinogen,Urine <2.0 mg/dL (<2.0); WBC,Urine <1 /hpf (0-5)
[2020-12-31] MEDS ORDERED: INSULIN ASPART (NovoLOG) 100 UNIT/ML VIAL SQ STA (17:04)
[2020-12-31 17:19] LABS: Glucose,Whole Blood 382 mg/dL (75-99)
[2020-12-31] MEDS ORDERED: ONDANSETRON 4 MG/2 ML VIAL IVP PRN (17:45)
[2020-12-31] MEDS ORDERED: NALOXONE 0.4 MG/ML 1 ML VIAL IV PRN (17:45)
[2020-12-31] MEDS ORDERED: SENNOSIDES-DOCUSATE SODIUM 1 EACH TAB PO PRN (19:31)
[2020-12-31] MEDS ORDERED: NITROGLYCERIN SL TABS 0.4 MG TAB SUBLINGUAL PRN (19:31)
[2020-12-31] MEDS ORDERED: AZITHROMYCIN 500 MG in SODIUM CHLORIDE 0.9% 250 ML IVPB STA (20:10)
[2020-12-31 20:31] LABS: Glucose,Whole Blood 237 mg/dL (75-99)
[2020-12-31] MEDS ORDERED: GABAPENTIN 100 MG CAP PO SCH (21:00)
[2020-12-31] MEDS ORDERED: INSULIN DETEMIR (LEVEMIR) 100 UNIT/ML SYR SQ SCH (21:00)
[2020-12-31] MEDS: glipiZIDE 5 MG TAB PO SCH (21:25)
[2020-12-31] MEDS: ASPIRIN 81 MG PO SCH (21:25)
[2020-12-31] MEDS: ISOSORBIDE MONONITRATE ER 60 MG TAB.ER.24H PO SCH (21:25)
[2020-12-31] MEDS: CLOPIDOGREL 75 MG TAB PO SCH (21:26)
[2020-12-31] MEDS: METOPROLOL TARTRATE 25 MG TAB PO SCH (21:26)
[2020-12-31] MEDS: INSULIN ASPART (NovoLOG) 100 UNIT/ML VIAL SQ SCH (21:26)
[2020-12-31] MEDS: MELATONIN 5 MG TABLET PO SCH (21:26)
[2020-12-31] MEDS: hydrALAZINE HCL 25 MG TAB PO SCH (21:26)
[2020-12-31] MEDS: PANTOPRAZOLE 40 MG TABLET PO SCH (21:26)
[2020-12-31] MEDS: FERROUS SULFATE 325 MG TAB PO SCH (21:26)
[2020-12-31 21:32] LABS: ABG Base Excess -0.5 mmol/L; ABG HCO3 25 mmol/L (21-25); ABG Oxygen Saturation 89.9 % (94-97); ABG PCO2 48 mmHg (35-45); ABG PH 7.33 (7.35-7.45); ABG TCO2 27 mmol/L (19-24); Allen Test Performed? Yes
[2020-12-31 21:36] LABS: ABG PO2 58 mmHg (83-108)
--- NOTE | 2020-12-31 22:29 | HP ---
HISTORY AND PHYSICAL DATE OF SERVICE: 12/31/2020. CHIEF COMPLAINTS: Shaking and weakness and shortness of breath. HISTORY OF PRESENT ILLNESS: This 70-year-old gentleman with a past medical history of multiple medical problems including CAD, COPD, history of diabetes, GERD, GI bleed, hypertension, hyperlipidemia, being followed by Dr. Myles in the [facility] in the outpatient setting, also had significant renal failure. The patient recently had hemodialysis catheter inserted on the left arm. The patient was found to have hemoglobin 7.3. The patient also has some tremors also. Patient admitted for evaluation. Patient also had change in mental status as well. The tremors also at night keeping the patient awake. The patient had multiple evaluations in the ER and CT scan of the brain showed slight atrophy. Otherwise a chest x-ray which was reviewed personally by me showed some atelectasis bilateral and some fluid overload also. There is no history of fever, rigors or chills. No history of headache, loss of consciousness or seizures. PAST MEDICAL HISTORY: History of CAD, COPD, history of chronic renal failure, GERD, GI bleed, hypertension. Hyperlipidemia. MEDICATIONS: Home medications are: Requip, Apresoline, Glucotrol, Rocaltrol, Norvasc, Zocor, Senokot, Prilosec, Nitrostat, Lopressor, Imdur, Lantus, [place], Lasix, Iron, vitamin D2, Cymbalta, vitamin B12, Plavix, Ecotrin, vitamin C. ALLERGIES: IODINATED CONTRAST DYES. FAMILY HISTORY: History of cancer, metastatic cancer, pelvis origin. SOCIAL HISTORY: History of THC, history of previous smoking. REVIEW OF SYSTEMS: ENT: Diminished vision. Diminished hearing. CARDIOVASCULAR: No angina or palpitations. RESPIRATORY: As mentioned earlier. GI: As mentioned earlier. : As mentioned earlier. NERVOUS SYSTEM: As mentioned earlier. ALLERGY/IMMUNOLOGY: No asthma or hayfever. MUSCULOSKELETAL as mentioned earlier. HEMATOLOGY/ONCOLOGY: No history of anemia. ENDOCRINE: Diabetes. CONSTITUTIONAL: As mentioned earlier. DERMATOLOGY: Negative. RHEUMATOLOGY: Negative. PSYCHIATRIC: As mentioned earlier. PHYSICAL EXAMINATION: The patient is alert and oriented times three. Pulse is 66, blood pressure 149/80, respiration 18. Temperature 98 degrees, pulse ox 97% on 2 L. HEENT: Conjunctivae normal. Oral mucosa moist. NECK is no jugular venous distention. No carotid bruit. No lymph node enlargement. Cardiovascular system: S1, S2. No S3. No S4. RESPIRATORY: Breath sounds diminished in the bases. A few scattered rhonchi and crackles. ABDOMEN: Soft, obese, nontender. No mass palpable. LEGS are no edema. No swelling. NERVOUS SYSTEM: Higher functions as mentioned earlier. Moves all four limbs. Mild diffuse weakness. Mild diffuse tremors also present. LYMPHATICS: No lymph nodes palpable in the neck, axillae or groin. SKIN: No ulcers. No rashes and no bleeding. JOINTS: No active deforming arthropathy. LABS: At this time shows WBC 9.2, hemoglobin 7.3, sodium 135 and creatinine 4.06 and blood sugar is noted. ASSESSMENT: 1. Acute on chronic renal failure possibly with acute tubular necrosis. 2. Chronic kidney disease stage 4 baseline. 3. Status post vascular access. 4. Rule out fluid overload and congestive heart failure. 5. Anemia, microcytic possibly secondary to renal disease. 6. Hyponatremia. 7. Diabetes mellitus, uncontrolled with hyperglycemia. 8. Hypoalbuminemia with mild protein calorie malnutrition. 9. History of coronary artery disease. 10.History of chronic obstructive pulmonary disease. 11.Gastroesophageal reflux disease. 12.History of gastrointestinal bleed. 13.Hypertension. 14.Hyperlipidemia. 15.History of pneumonia. 16.History of benign colonic polyps. 17.History of peripheral vascular disease. 18.History of lung nodules. 19.History of cholecystectomy. 20.History of right MediPort insertion. 21.History of right carotid stent history. 22.History of depression/PTSD. 23.History of nicotine dependence continued ongoing. 24.FULL CODE. RECOMMENDATIONS AND DISCUSSION: In this 70-year-old gentleman who presented with multiple complex medical issues, we will monitor the patient closely, continue the current medications, symptomatic treatment. Otherwise at this time I recommend BNP evaluation. I would also recommend ABG. We will recommend pulmonology and as well as nephrology consultations. The chest x-ray is abnormal most likely due to fluid overload and some atelectasis rather than a full-blown pneumonia, but we will continue to monitor. Guarded prognosis. Further recommendations to follow. A copy of dictation being forwarded to Dr. Myles who is the primary physician BESSY / MARITZA: [id number] /
[2021-01-01] MEDS: amLODIPine 10 MG TAB PO SCH ×2 (00:43→08:36)
[2021-01-01] MEDS: HYDROcodone/APAP 5-325MG 1 EACH TAB PO PRN ×2 (06:06→19:32)
[2021-01-01 06:31] LABS: Basophils % (A) 0 %; Eosinophils # (A) 0.1 k/uL (0-0.7); Eosinophils % (A) 1 %; HCT 24.5 % (39.0-53.0); HGB 7.8 gm/dL (13.0-17.5); Hypochromasia Slight; Lymphocytes # (A) 0.8 k/uL (1.0-4.8); Lymphocytes % (A) 8 %; MCH 33.8 pg (25.0-35.0); MCV 105.7 fL (80.0-100.0); Macrocytosis Moderate; Monocytes # (A) 0.4 k/uL (0-1.0); Monocytes % (A) 4 %; Neutrophils # (A) 8.4 k/uL (1.3-7.7); Neutrophils % (A) 85 %; Platelet Count 274 k/uL (150-450); RBC 2.32 m/uL (4.30-5.90); RDW 15.8 % (11.5-15.5); WBC 9.9 k/uL (3.8-10.6)
[2021-01-01 06:43] LABS: Potassium 3.7 mmol/L (3.5-5.1)
[2021-01-01 06:44] LABS: African American GFR (CKD) 17 (>60 ml/min/1.73 sqM); Anion Gap 9 mmol/L; Blood Urea Nitrogen 68 mg/dL (9-20); Carbon Dioxide 24 mmol/L (22-30); Chloride 106 mmol/L (98-107); Glucose 79 mg/dL (74-99); Non-African American GFR(CKD) 15 (>60 ml/min/1.73 sqM); Sodium 139 mmol/L (137-145)
[2021-01-01 07:10] LABS: Glucose,Whole Blood 102 mg/dL (75-99)
[2021-01-01] MEDS: INSULIN ASPART (NovoLOG) 100 UNIT/ML VIAL SQ SCH ×4 (08:32→21:52)
[2021-01-01] MEDS: FOLIC ACID-VIT B COMPLEX-VIT C 1 CAP PO SCH (08:35)
[2021-01-01] MEDS: ISOSORBIDE MONONITRATE ER 60 MG TAB.ER.24H PO SCH ×2 (08:35→21:53)
[2021-01-01] MEDS: DULoxetine HCL 20 MG CAPSULE.DR PO SCH (08:35)
[2021-01-01] MEDS: CYANOCOBALAMIN 500 MCG TAB PO SCH (08:35)
[2021-01-01] MEDS: hydrALAZINE HCL 25 MG TAB PO SCH ×3 (08:36→21:53)
[2021-01-01] MEDS: METOPROLOL TARTRATE 25 MG TAB PO SCH ×3 (08:36→21:53)
[2021-01-01] MEDS: glipiZIDE 5 MG TAB PO SCH ×2 (08:36→21:53)
[2021-01-01] MEDS: ASCORBIC ACID 500 MG TAB PO SCH (08:36)
[2021-01-01] MEDS: FERROUS SULFATE 325 MG TAB PO SCH ×3 (08:36→21:52)
[2021-01-01] MEDS ORDERED: AZITHROMYCIN 500 MG in SODIUM CHLORIDE 0.9% 250 ML IVPB SCH (09:00)
--- NOTE | 2021-01-01 11:12 | P.CNNES ---
History of Present Illness Consult date: 01/01/21 Requesting physician: Eleanor Rolon Reason for Consult: right sdide tremor History of Present Illness: This is a 70-year-old gentleman with medical history of restless leg syndrome, iron deficiency anemia, chronic kidney insufficiency, right carotid stent in 2017, diabetes mellitus, hypertension, hyperlipidemia, coronary artery disease status, peripheral vascular disease s/p stent presented emergency department on 12/31/2020 for tremor for the last 1-2 weeks. According to patient he is having tremor throughout the whole body of upper and lower extremities and they happen at rest and with movement and he feels like he has these jerks of his body. He denies any loss of consciousness, urinary bowel incontinence. He said these episode happened all of a sudden in the last 1-2 weeks. He is also having bilateral pain in the feet that he has had for years. Some of the patient's home medication includes ropinirole 0.25 mg 1 tablet twice a day, simvastatin 40 g daily at bedtime, gabapentin 200 mg tablet twice a day, folic acid, Cymbalta to 20 mg daily, vitamin B12 at thousand micrograms daily, Plavix 75 mg daily aspirin 81 mg daily at bedtime, multiple blood pressure medication as well as diabetic medication. Some of the workup in the hospital consisted of: CT of the head is reported as mild atrophy. No acute intracranial abnormality. Initial white blood cell is 9.5 which is normal. But the hemoglobin on presentation 7.3 and the repeated 7.8. The MCV is 103 and repeat his 105 throughout. Sodium is 139. Creatinine is 3.91 and the the BUN 68 on presentation the creatinine was 4.06. Initial POC glucose is 382 and it's trending down the last one is 102. AST of 15 and ALT of 6. [place] virus PCR was not detected. Review of Systems Review of system: The 12 point system was reviewed and apparent positive and negative per HPI. Past Medical History Past Medical History: Coronary Artery Disease (CAD), Chest Pain / Angina, COPD, Diabetes Mellitus, GERD/Reflux, GI Bleed, Hyperlipidemia, Hypertension, Pneu monia, Renal Disease, Vascular Disorder Additional Past Medical History / Comment(s): IDDM type II, lower GI bleed, benign colon polyps, spouse states micro bleeds in intestine are suspected, abdominal distention comes and goes which is nearly daily, partial SBO, chronic renal disease stage IV, iron anemia with iron transfusions (recent R upper chest mediport for infusions), PVD, stable lung nodules, chronic low back pain with bilateral sciatica, RLS, vertigo, insomnia, past agent orange exposure. History of Any Multi-Drug Resistant Organisms: None Reported Past Surgical History: Cholecystectomy, Heart Catheterization Additional Past Surgical History / Comment(s): 03/25/20 R sublclavian mediport, R carotid stent done in [place], EGD/colonoscopyScceer 2016, endoscopic capsule, fx lt wrist -sx re-set, aortagram, bilateral leg revascularizations/stents Past Anesthesia/Blood Transfusion Reactions: No Reported Reaction Additional Past Anesthesia/Blood Transfusion Reaction / Comment(s): Pt has had blood transfusion without reaction. Past Psychological History: Depression, PTSD Smoking Status: Current every day smoker Past Alcohol Use History: None Reported Past Drug Use History: None Reported - Past Family History Father History Unknown: Yes Mother Family Medical History: Cancer Additional Family Medical History / Comment(s): Mother from metastatic cancer pelvic origin. Medications and Allergies Home Medications Medication Instructions Recorded Confirmed Type Ergocalciferol (Vitamin D2) 50,000 unit PO Q14D 07/18/17 12/31/20 History [Vitamin D2] Simvastatin [Zocor] 40 mg PO HS 07/18/17 12/31/20 History Aspirin EC [Ecotrin Low Dose] 81 mg PO HS 02/10/18 12/31/20 History Ferrous Sulfate [Iron (65 MG 325 mg PO TID 02/10/18 12/31/20 History Elemental)] Cyanocobalamin [Vitamin B-12] 1,000 mcg PO DAILY 09/23/18 12/31/20 History rOPINIRole HCL [Requip] 0.25 mg PO BID 01/09/19 12/31/20 History glipiZIDE [Glucotrol] 5 mg PO BID 05/22/19 12/31/20 History calcitrioL [Rocaltrol] 0.5 mcg PO SUWE 09/17/19 12/31/20 History Omeprazole [PriLOSEC] 20 mg PO HS 09/25/19 12/31/20 History Clopidogrel [Plavix] 75 mg PO HS 04/18/20 12/31/20 History Isosorbide Mononitrate ER [Imdur] 60 mg PO BID #60 tab.er.24h 04/21/20 12/31/20 Rx Nitroglycerin Sl Tabs [Nitrostat] 0.4 mg SUBLINGUAL Q5M PRN #20 tab 04/21/20 12/31/20 Rx Gabapentin [Neurontin] 200 mg PO BID cap 04/28/20 12/31/20 Rx amLODIPine [Norvasc] 10 mg PO DAILY #30 tab 04/28/20 12/31/20 Rx hydrALAZINE HCL [Apresoline] 25 mg PO TID 05/19/20 12/31/20 History Furosemide [Lasix] 80 mg PO BID 05/26/20 12/31/20 History Insulin Glargine [Lantus] 10 unit SQ HS 07/13/20 12/31/20 History Metoprolol Tartrate [Lopressor] 25 mg PO TID 07/13/20 12/31/20 History DULoxetine HCL [Cymbalta] 20 mg PO DAILY 10/27/20 12/31/20 History Ascorbic Acid [Vitamin C] 500 mg PO DAILY 12/19/20 12/31/20 History Folic Acid-Vit B Complex-Vit C 1 cap PO DAILY 12/19/20 12/31/20 History [Nephrocaps] Melatonin 5 mg PO HS 12/19/20 12/31/20 History HYDROcodone/APAP 5-325MG [[place] 1 tab PO Q4HR PRN 3 Days #18 tab 12/21/20 12/31/20 Rx 5-325] Sennosides-Docusate Sodium 2 tab PO TID PRN 12/31/20 12/31/20 History [Senokot-S] Allergies Allergy/AdvReac Type Severity Reaction Status Date / Time Iodinated Contrast Media AdvReac CAN'T Verified 12/31/20 15:39 TAKE, RENAL DISEASE Iodine and Iodide Containing AdvReac CAN'T Verified 12/31/20 15:39 Produc TAKE, RENAL DISEASE Physical Examination - Vital Signs Vital Signs: Vital Signs Temp Pulse Pulse Resp BP BP Pulse Ox 01/01/21 08:04 94 L 01/01/21 08:00 16 01/01/21 07:53 97.6 F 68 18 145/66 99 01/01/21 02:15 97.4 F L 66 15 104/69 94 L 12/31/20 19:50 97.4 F L 67 18 145/60 99 12/31/20 18:45 98.0 F 66 18 149/80 96 12/31/20 17:20 71 18 140/60 95 12/31/20 15:58 74 20 153/64 96 12/31/20 15:36 79 20 141/67 95 12/31/20 14:16 68 20 142/58 97 12/31/20 13:54 97.7 F 77 22 114/51 97 Intake and Output 12/31/20 01/01/21 01/01/21 22:59 06:59 14:59 Other: # Voids 2 Weight 86.183 kg GENERAL: The patient is lying in bed and is in mild acute distress. CHEST: The heart rate is regular rate rhythm. No murmurs to auscultation. No carotid bruit bilaterally. He has a port on right side of chest. LUNG: Clear to auscultation bilaterally no wheezing noted throughout. Not labored breathing. ABDOMEN/GI: Bowel sounds present in all 4 quadrants. No tenderness to palpation throughout. NEUROLOGICAL: Higher mental function: The patient is awake, alert, oriented to self, place and time. Patient is following commands. No aphasia and no neglect. Cranial nerves: The pupils are round, equal and reactive to light and accommodation. Visual wing are full to confrontation throughout. Extraocular movement is intact no nystagmus is noted. Facial sensation is normal to touch throughout. The facial strength is normal throughout. Hearing is mildly decreased bilaterally to hand rub. Tongue is midline and moved [id number] without any difficulty. No dysarthria is noted. Shoulder shrug is normal bi laterally. Motor: Gait is deferred. 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 Otherwise 5 over 5 throughout. Normal tone and bulk. He has tremor of bilateral hands and the feet but they seem to be the nonrhythmic and upon asking the patient. He would stop and at times he would have only on the right hand or the left hand but again with action and let him know to stop he would stop. Cerebellum: Normal finger to nose bilaterally. At times I felt he had essential tremor with finger to nose but at times he did not. Sensation: Sensation is normal to touch throughout. Reflexes (right/left): 2+ upper and 1+ lowers Plantars are mute bilaterally. Results - Laboratory Findings CBC and BMP: 05/16/21 05:47 01/01/21 05:47 Abnormal Lab Findings: Abnormal Labs 12/31/20 12/31/20 12/31/20 14:46 14:46 16:47 RBC 2.15 L Hgb 7.3 L D Hct 22.2 L MCV 103.3 H RDW Neutrophils # 8.1 H Lymphocytes # 0.6 L ABG pH ABG pCO2 ABG pO2 ABG Total CO2 ABG O2 Saturation Sodium 135 L BUN 66 H Creatinine 4.06 H Glucose 368 H POC Glucose (mg/dL) Calcium AST 15 L Total Protein 5.1 L Albumin 2.8 L Urine Protein 2+ H Urine Glucose (UA) 3+ H 12/31/20 12/31/20 12/31/20 17:17 20:30 21:25 RBC Hgb Hct MCV RDW Neutrophils # Lymphocytes # ABG pH 7.33 L ABG pCO2 48 H ABG pO2 58 L* ABG Total CO2 27 H ABG O2 Saturation 89.9 L Sodium BUN Creatinine Glucose POC Glucose (mg/dL) 382 H 237 H Calcium AST Total Protein Albumin Urine Protein Urine Glucose (UA) 01/01/21 01/01/21 01/01/21 05:47 05:47 07:07 RBC 2.32 L Hgb 7.8 L Hct 24.5 L MCV 105.7 H RDW 15.8 H Neutrophils # 8.4 H Lymphocytes # 0.8 L ABG pH ABG pCO2 ABG pO2 ABG Total CO2 ABG O2 Saturation Sodium BUN 68 H Creatinine 3.91 H Glucose POC Glucose (mg/dL) 102 H Calcium 8.0 L AST Total Protein Albumin Urine Protein Urine Glucose (UA) Assessment and Plan Assessment: * Generalized tremors of upper and lower extremities at rest and movement with jerks (without loss of consciousness): Seems due to metabolic deneragement. I don't feel these are seizures. His tremor was asynchronous and with command of telling him to stop, he would stop and he would have a both bilateral hands but would occur back again. * Uncontrolled sugar on presentation with sugar in the 300's--improving * Acute on chronic kidney insufficiency not * Acute on chronic anemia * History of restless leg syndrome * History of right carotid stent in 2017 * Iron deficiency anemia * Diabetes mellitus * History of Coronary artery disease * History of Peripheral vascular disease status post stenting Plan: * CT of the head is reported as mild atrophy. No acute intracranial abnormality. * AST of 15 and ALT of 6. * Patient was started on his home medication 0.25 mg 1 tablet twice a day Requip. * I ordered TSH level, vitamin B12, folate level. * An EEG is not required at this time. * IF The patient's episodes don't resolve then recommend MRI of the brain to rule out any intracranial process which I feel is unlikely. * Also on a few the patient the has a classical Parkinson's disease again his tremor was bilateral upper and lower extremity at rest and with movement and they're asynchronous and they resolved with command. * Regarding the patient complained of pain in the feet this could be neuropathy from uncontrolled diabetes as well as rule out other neuropathy. Recommend EMG with nerve conduction as an outpatient and further workup as an outpatient. * Upon discharge the patient is to follow up with a neurologist within 1-2 weeks as outpatient. * Will Defer the rest of the medical management to the primary team. The plan is discussed with the patient's nurse. Thank you for the consultation. Nawaf Gonzalez M.D. Neuro-hospitalist Time with Patient: Greater than 30
[2021-01-01 11:41] LABS: Glucose,Whole Blood 182 mg/dL (75-99)
[2021-01-01] MEDS: ASPIRIN 81 MG PO SCH (11:56)
[2021-01-01] MEDS ORDERED: ONDANSETRON 4 MG/2 ML VIAL ONE (12:18)
--- NOTE | 2021-01-01 13:13 | CONS ---
CONSULTATION REASON FOR CONSULT: Renal failure. HISTORY OF PRESENT ILLNESS: Patient is a 70-year-old male with CKD stage 5 with creatinine at about 4 mg/dL with recent worsening of renal function over the past 1-2 months. The patient has recently had an AV fistula placed in his left forearm. However, he was admitted to the hospital with increasing tremors. He has had decreased oral intake. He denies any significant chest pains or shortness of breath. He denies any significant nausea, although oral intake has been decreased. The patient has been voiding. His creatinine was 4.0 on admission down to 3.9 now. Previous creatinine 4.1-4.2 mg/dL. Home medications include Requip. I do not see Neurontin on his medication list. The patient states that these tremors are fairly new. There were plans to start dialysis via catheter placement as outpatient if his condition deteriorates. Patient was last seen in our office on 11/30/2020. PAST MEDICAL HISTORY: Chronic kidney disease stage 5, CKD mineral bone disorder, type 2 diabetes, coronary artery disease, chest pain, COPD, hypertension, hyperlipidemia, peripheral vascular disease, history of GI bleed, history of colon polyps, anemia of chronic disease. PAST SURGICAL HISTORY: Carotid stent placements, subclavian MediPort, EGD, colonoscopy, bilateral leg revascularization and stents. SOCIAL HISTORY: Patient is a current daily smoker. No history of drug abuse or alcohol abuse. MEDICATIONS: Medications prior to admission included aspirin, Zocor, vitamin D, iron, B12, Glucotrol, Requip, Rocaltrol, Prilosec, Plavix, hydralazine Lasix, insulin, Lopressor, Cymbalta, melatonin, Nephrocaps, Senokot, Imdur, Nitrostat, Neurontin, Norvasc and [place]. ALLERGIES: ALLERGIES include IV contrast. REVIEW OF SYSTEMS: As per HPI. Other systems negative. EXAMINATION: The patient is comfortable, awake. He did have an episode of tremors bilateral upper extremities, worse on the stretched out hands. He is not in any acute distress. Blood pressure 145/66, heart rate 68 per minute. He is afebrile. Examination of the heart S1, S2. Examination of the lungs, decreased breath sounds at bases. Abdomen is soft, nontender. Examination of lower extremities shows no significant edema. 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 LABS: Show sodium 139, potassium 3.7, chloride 106, BUN 68, creatinine 3.9, hemoglobin 7.8 g/dL. ASSESSMENT: 1. 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 However, patient needs to start dialysis given his overall general condition with decreased oral intake as well, albumin of 2.8 yesterday. We will consult Vascular Surgery for PermCath placement. Initiate dialysis with plans for first treatment tomorrow. 2. Tremors related to some degree of uremia as well as most likely from the Neurontin as well. Although I believe this was discontinued recently. 3. Chronic kidney disease mineral bone disorder. 4. Hypervolemia, volume overload. 5. Anemia, no active bleeding noted, mostly anemia of chronic disease. PLAN: Consult Vascular Surgery for dialysis catheter placement. We will plan for first treatment tomorrow. Check iron profile. Add Aranesp. Resume phosphate binders. Repeat labs in a.m. Thank you for this consultation. Will continue to follow the patient with you during his hospitalization. MMODL / IJN: [id number] /
[2021-01-01] MEDS ORDERED: DARBEPOETIN ALFA 40 MCG/0.4 ML SYRINGE SQ SCH (14:00)
--- NOTE | 2021-01-01 15:01 | P.CNPUL ---
History of Present Illness Consult date: 01/01/21 Requesting physician: Aida Ndiaye Reason for consult: COPD Chief complaint: Tremors, lower extremity pain History of present illness: This is a 70-year-old gentleman who follows with the [place] as his primary care provider. He has history of coronary artery disease, carotid stenosis with previous right stent placement, right subclavian Mediport placement, bilateral leg revascularizations with stents for peripheral vascular disease, depression/PTSD, diabetes mellitus, hypertension, hyperlipidemia, chronic obstructive pulmonary disease with chronic and ongoing tobacco dependence. He presented to the emergency room yesterday with complaints of uncontrolled tremors and lower extremity pain and discomfort. No shortness of breath, cough or congestion. Computed tomography scan of the brain revealed no acute intracranial abnormality. Chest x-ray did reveal some chronic changes of the right pleural effusion with right lower lobe mild infiltrate/atelectasis. We're consulted for the same. He is seen today in consultation on the regular medical floor. He is currently up ambulating in his room. He is quite tremorous. He also was complaining of nausea and chest pain. He denies any shortness of breath, cough or congestion. No fever, chills or night sweats. He is maintaining O2 saturations in the mid 90s on room air. He's afebrile. Hemodynamically stable. Arterial blood gases revealed a pO2 58, pCO2 40, pH 7.33 on 21% FiO2 White count 9.9. Hemoglobin 7.8. Sodium 139. Potassium 3.7. Creatinine 3.91. Troponin negative 2. ProBNP 5180. Dodson virus not detected. Initiated on antibiotics in the form of ceftriaxone and azithromycin. Review of Systems REVIEW OF SYSTEMS: CONSTITUTIONAL: Denies any recent significant weight loss or weight gain. EYES: Denies change in vision. EARS, NOSE, MOUTH, THROAT: Denies headaches, denies sore throat. CARDIOVASCULAR: Positive for chest pain, no palpitations or syncopal episodes. RESPIRATORY: Denies shortness of breath, cough, congestion or hemoptysis. GASTROINTESTINAL: Denies change in appetite, denies abdominal pain GENITOURINARY: Denies hematuria, denies infections. MUSKULOSKELETAL: Denies pain, denies swelling. INTEGUMENTARY: Denies rash, denies eczema. NEUROLOGICAL: Uncontrolled tremors, pain in the bilateral lower extremities Denies recent memory loss, no recent seizure activity. PSYCHIATRIC: Denies anxiety, denies depression. HEMATOLOGIC/LYMPHATIC: Denies anemia, denies enlarged lymph nodes. Past Medical History Past Medical History: Coronary Artery Disease (CAD), Chest Pain / Angina, COPD, Diabetes Mellitus, GERD/Reflux, GI Bleed, Hyperlipidemia, Hypertension, Pneumonia, Renal Disease, Vascular Disorder Additional Past Medical History / Comment(s): IDDM type II, lower GI bleed, benign colon polyps, spouse states micro bleeds in intestine are suspected, abdominal distention comes and goes which is nearly daily, partial SBO, chronic renal disease stage IV, iron anemia with iron transfusions (recent R upper chest mediport for infusions), PVD, stable lung nodules, chronic low back pain with bilateral sciatica, RLS, vertigo, insomnia, past agent orange exposure. History of Any Multi-Drug Resistant Organisms: None Reported Past Surgical History: Cholecystectomy, Heart Catheterization Additional Past Surgical History / Comment(s): 03/25/20 R sublclavian mediport, R carotid stent done in [place], EGD/colonoscopyDece2016, endoscopic capsule, fx lt wrist -sx re-set, aortagram, bilateral leg revascularizations/stents Past Anesthesia/Blood Transfusion Reactions: No Reported Reaction Additional Past Anesthesia/Blood Transfusion Reaction / Comment(s): Pt has had blood transfusion without reaction. Past Psychological History: Depression, PTSD Smoking Status: Current every day smoker Past Alcohol Use History: None Reported Past Drug Use History: None Reported - Past Family History Father History Unknown: Yes Mother Family Medical History: Cancer Additional Family Medical History / Comment(s): Mother from metastatic cancer pelvic origin. Medications and Allergies Home Medications Medication Instructions Recorded Confirmed Type Ergocalciferol (Vitamin D2) 50,000 unit PO Q14D 07/18/17 12/31/20 History [Vitamin D2] Simvastatin [Zocor] 40 mg PO HS 07/18/17 12/31/20 History Aspirin EC [Ecotrin Low Dose] 81 mg PO HS 02/10/18 12/31/20 History Ferrous Sulfate [Iron (65 MG 325 mg PO TID 02/10/18 12/31/20 History Elemental)] Cyanocobalamin [Vitamin B-12] 1,000 mcg PO DAILY 09/23/18 12/31/20 History rOPINIRole HCL [Requip] 0.25 mg PO BID 01/09/19 12/31/20 History glipiZIDE [Glucotrol] 5 mg PO BID 05/22/19 12/31/20 History calcitrioL [Rocaltrol] 0.5 mcg PO SUWE 09/17/19 12/31/20 History Omeprazole [PriLOSEC] 20 mg PO HS 09/25/19 12/31/20 History Clopidogrel [Plavix] 75 mg PO HS 04/18/20 12/31/20 History Isosorbide Mononitrate ER [Imdur] 60 mg PO BID #60 tab.er.24h 04/21/20 12/31/20 Rx Nitroglycerin Sl Tabs [Nitrostat] 0.4 mg SUBLINGUAL Q5M PRN #20 tab 04/21/20 12/31/20 Rx Gabapentin [Neurontin] 200 mg PO BID cap 04/28/20 12/31/20 Rx amLODIPine [Norvasc] 10 mg PO DAILY #30 tab 04/28/20 12/31/20 Rx hydrALAZINE HCL [Apresoline] 25 mg PO TID 05/19/20 12/31/20 History Furosemide [Lasix] 80 mg PO BID 05/26/20 12/31/20 History Insulin Glargine [Lantus] 10 unit SQ HS 07/13/20 12/31/20 History Metoprolol Tartrate [Lopressor] 25 mg PO TID 07/13/20 12/31/20 History DULoxetine HCL [Cymbalta] 20 mg PO DAILY 10/27/20 12/31/20 History Ascorbic Acid [Vitamin C] 500 mg PO DAILY 12/19/20 12/31/20 History Folic Acid-Vit B Complex-Vit C 1 cap PO DAILY 12/19/20 12/31/20 History [Nephrocaps] Melatonin 5 mg PO HS 12/19/20 12/31/20 History HYDROcodone/APAP 5-325MG [[place] 1 tab PO Q4HR PRN 3 Days #18 tab 12/21/20 12/31/20 Rx 5-325] Sennosides-Docusate Sodium 2 tab PO TID PRN 12/31/20 12/31/20 History [Senokot-S] Allergies Allergy/AdvReac Type Severity Reaction Status Date / Time Iodinated Contrast Media AdvReac CAN'T Verified 12/31/20 15:39 TAKE, RENAL DISEASE Iodine and Iodide Containing AdvReac CAN'T Verified 12/31/20 15:39 Produc TAKE, RENAL DISEASE Physical Exam Vitals: Vital Signs Temp Pulse Pulse Resp BP BP Pulse Ox 01/01/21 08:04 94 L 01/01/21 08:00 16 01/01/21 07:53 97.6 F 68 18 145/66 99 01/01/21 02:15 97.4 F L 66 15 104/69 94 L 12/31/20 19:50 97.4 F L 67 18 145/60 99 12/31/20 18:45 98.0 F 66 18 149/80 96 12/31/20 17:20 71 18 140/60 95 12/31/20 15:58 74 20 153/64 96 12/31/20 15:36 79 20 141/67 95 Intake and Output 12/31/20 01/01/21 01/01/21 22:59 06:59 14:59 Intake Total 240 Balance 240 Intake: Oral 240 Other: # Voids 2 Weight 86.183 kg GENERAL EXAM: Alert, obese, 70-year-old gentleman, on room air comfortable in no apparent distress. HEAD: Normocephalic. EYES: Normal reaction of pupils, equal size. NOSE: Clear with pink turbinates. THROAT: No erythema or exudates. NECK: No masses, no JVD. CHEST: No chest wall deformity. LUNGS: Equal air entry with crackles in the right base. CVS: S1 and S2 normal with no audible murmur, regular rhythm. ABDOMEN: Obese. No hepatosplenomegaly, normal bowel sounds, no guarding or ri gidity. SPINE: No scoliosis or deformity SKIN: No rashes CENTRAL NERVOUS SYSTEM: No focal deficits, tone is normal in all 4 extremities. EXTREMITIES: There is no peripheral edema. No clubbing, no cyanosis. Peripheral pulses are intact. Results - Laboratory Findings CBC and BMP: 01/01/21 05:47 01/01/21 05:47 ABG ABG pH 7.33 (7.35-7.45) L 12/31/20 21:25 ABG pCO2 48 mmHg (35-45) H 12/31/20 21:25 ABG pO2 58 mmHg (83-108) L* 12/31/20 21:25 ABG O2 Saturation 89.9 % (94-97) L 12/31/20 21:25 PT/INR, D-dimer PT 9.5 sec (9.0-12.0) 12/31/20 14:46 INR 0.9 (<1.2) 12/31/20 14:46 Abnormal lab findings: Abnormal Labs 12/31/20 12/31/20 12/31/20 14:46 14:46 16:47 RBC 2.15 L Hgb 7.3 L D Hct 22.2 L MCV 103.3 H RDW Neutrophils # 8.1 H Lymphocytes # 0.6 L ABG pH ABG pCO2 ABG pO2 ABG Total CO2 ABG O2 Saturation Sodium 135 L BUN 66 H Creatinine 4.06 H Glucose 368 H POC Glucose (mg/dL) Calcium AST 15 L Total Protein 5.1 L Albumin 2.8 L Urine Protein 2+ H Urine Glucose (UA) 3+ H 12/31/20 12/31/20 12/31/20 17:17 20:30 21:25 RBC Hgb Hct MCV RDW Neutrophils # Lymphocytes # ABG pH 7.33 L ABG pCO2 48 H ABG pO2 58 L* ABG Total CO2 27 H ABG O2 Saturation 89.9 L Sodium BUN Creatinine Glucose POC Glucose (mg/dL) 382 H 237 H Calcium AST Total Protein Albumin Urine Protein Urine Glucose (UA) 01/01/21 01/01/21 01/01/21 05:47 05:47 07:07 RBC 2.32 L Hgb 7.8 L Hct 24.5 L MCV 105.7 H RDW 15.8 H Neutrophils # 8.4 H Lymphocytes # 0.8 L ABG pH ABG pCO2 ABG pO2 ABG Total CO2 ABG O2 Saturation Sodium BUN 68 H Creatinine 3.91 H Glucose POC Glucose (mg/dL) 102 H Calcium 8.0 L AST Total Protein Albumin Urine Protein Urine Glucose (UA) 01/01/21 11:40 RBC Hgb Hct MCV RDW Neutrophils # Lymphocytes # ABG pH ABG pCO2 ABG pO2 ABG Total CO2 ABG O2 Saturation Sodium BUN Creatinine Glucose POC Glucose (mg/dL) 182 H Calcium AST Total Protein Albumin Urine Protein Urine Glucose (UA) - Diagnostic Findings Chest x-ray: image reviewed Assessment and Plan Assessment: 1 Tremors and lower extremity pain of unclear etiology , possible Parkinson's 2 Lower extremity pain and suspected diabetic neuropathy 3 Atypical chest pain 4 Chronic right lower lobe changes without evidence of acute pneumonia 5 Chronic kidney disease, stage V with recent AV fistula of the left forearm 5 Chronic obstructive pulmonary disease 6 Chronic tobacco dependence 7 Diabetes mellitus 8 hypertension 9 Hyperlipidemia 10 Peripheral vascular disease with previous bilateral leg revascularizations/ stent placement 11 Carotid stenosis with previous right carotid stent placement 12 History of PTSD/depression 13 Right subclavian Mediport placement Plan: The patient was seen and evaluated by Dr. Orta Chest x-ray and labs reviewed Right lower lobe changes felt to be chronic in nature No evidence of an acute pneumonia On room air, stable from the pulmonary standpoint Continue antibiotics for now To have dialysis catheter placement with HD to start tomorrow Follow-up chest x-ray and labs in the a.m. We'll continue to follow and make further recommendations based on his clinical status I, the cosigning physician, performed a history & physical examination of the patient. Lungs sounds with crackles in the right base. Maintaining good O2 saturations in the 90s on room air. I discussed the assessment and plan of care with my nurse practitioner, Zhanna Cruz. I attest to the above consultation as dictated by her. Time with Patient: Greater than 30
[2021-01-01 16:26] LABS: Glucose,Whole Blood 237 mg/dL (75-99)
--- NOTE | 2021-01-01 19:08 | PN ---
PROGRESS NOTE DATE OF SERVICE: 01/01/2021 INTERVAL HISTORY: This is a 70-year-old gentleman who was admitted with significant tremors and some weakness and renal failure is being closely monitored. Patient is found to be acidotic. Patient is not feeling well . The patient also has multiple jerks also. Dr. Ivory is planning possible hemodialysis for the stage 5 renal disease. The patient has empiric antibiotics also. The patient also had uncontrolled blood sugars. PAST MEDICAL HISTORY: Reviewed. REVIEW OF SYSTEMS: CARDIOVASCULAR: No angina or palpitations. RESPIRATORY: As mentioned earlier. GI: As mentioned earlier. : No dysuria. NERVOUS SYSTEM: No numbness or weakness. CURRENT MEDICATIONS: Reviewed include Norvasc, [place], Zithromax, Rocaltrol, Rocephin, Cymbalta, Glucotrol. Doses reviewed. PHYSICAL EXAMINATION: GENERAL: Patient is alert and oriented times two. VITAL SIGNS: Pulse 62, blood pressure 137/52, respirations 18, temperature 97.3, pulse ox 98% on 3 liters. HEENT: Conjunctivae normal. Oral mucosa moist. NECK: No jugular venous distention. RESPIRATORY: Breath sounds diminished at the bases. A few scattered rhonchi. HEART: S1 and S2, muffled. ABDOMEN: Soft, no tenderness, obese. EXTREMITIES: No edema, no swelling. NERVOUS: Diffusely weak and tremors. LABS: WBC is 9.9, hemoglobin 7. Other labs are noted. ABGs noted. ASSESSMENT: 1. Acute on chronic renal failure with possible acute tubular necrosis. 2. 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 3. Status post vascular access. 4. Possible congestive heart failure with fluid overload. 5. Anemia macrocytic possibly secondary to renal disease. 6. Hyponatremia. 7. Diabetes mellitus type 2, uncontrolled with hyperglycemia. 8. Hypoalbuminemia with mild protein calorie malnutrition. 9. History of coronary artery disease. 10.Chronic obstructive pulmonary disease. 11.History of gastroesophageal reflux disease. 12.History of gastrointestinal bleed. 13.Hypertension. 14.Hyperlipidemia. 15.History of pneumonia. 16.History of benign colonic polyps. 17.History of peripheral vascular disease. 18.History of lung nodules. 19.History of cholecystectomy. 20.Right MediPort insertion. 21.History of right carotid stent history. 22.History of depression and PTSD. 23.History of nicotine dependence and continued ongoing. 24.FULL CODE. RECOMMENDATIONS AND DISCUSSION: I recommend to continue current medications and continue with monitoring and symptomatic treatment. Otherwise, hemodialysis per Nephrology. Continue the rest of the medications. Empiric antibiotics initiated. I would increase the dose of insulin to 20 units and continue to monitor. MMYOJANAL / IJN: [id number] / MTDD
[2021-01-01 20:25] LABS: % Iron Saturation 18.58 (15.00-50.00); Folate, Serum >24.0 ng/mL
[2021-01-01 20:45] LABS: Glucose,Whole Blood 235 mg/dL (75-99)
[2021-01-01] MEDS: MORPHINE SULFATE 4 MG/ML SYRINGE IVP PRN (21:40)
[2021-01-01] MEDS: PANTOPRAZOLE 40 MG TABLET PO SCH (21:52)
[2021-01-01] MEDS: INSULIN DETEMIR (LEVEMIR) 100 UNIT/ML SYR SQ SCH (21:52)
[2021-01-01] MEDS: MELATONIN 5 MG TABLET PO SCH (21:52)
[2021-01-01] MEDS: CLOPIDOGREL 75 MG TAB PO SCH (21:53)
[2021-01-02 06:51] LABS: Glucose,Whole Blood 71 mg/dL (75-99)
[2021-01-02] MEDS: INSULIN ASPART (NovoLOG) 100 UNIT/ML VIAL SQ SCH ×4 (07:16→20:44)
[2021-01-02] MEDS: MORPHINE SULFATE 4 MG/ML SYRINGE IVP PRN ×2 (07:25→16:45)
[2021-01-02] MEDS: glipiZIDE 5 MG TAB PO SCH ×2 (07:28→20:50)
[2021-01-02] MEDS: CYANOCOBALAMIN 500 MCG TAB PO SCH (07:28)
[2021-01-02] MEDS: FERROUS SULFATE 325 MG TAB PO SCH ×3 (07:29→20:50)
[2021-01-02] MEDS: ASCORBIC ACID 500 MG TAB PO SCH (07:29)
[2021-01-02] MEDS: DULoxetine HCL 20 MG CAPSULE.DR PO SCH (07:30)
[2021-01-02] MEDS: AZITHROMYCIN 500 MG TAB PO SCH (07:30)
[2021-01-02] MEDS: FOLIC ACID-VIT B COMPLEX-VIT C 1 CAP PO SCH (07:30)
[2021-01-02] MEDS: CLOPIDOGREL 75 MG TAB PO SCH (08:15)
--- NOTE | 2021-01-02 08:29 | P.GSCN ---
History of Present Illness Consult date: 01/02/21 Reason for Consult: End-stage renal disease, need for permacath placement for hemodialysis Requesting physician: Yulissa Ivory History of present illness: This is a pleasant 70-year-old male patient with a history of coronary artery disease, carotid stenosis with previous right stent placement, right subclavian Mediport placement, bilateral leg revascularization with stents for peripheral vascular disease(about one year ago) depression, diabetes mellitus, hypertension, hyperlipidemia COPD with ongoing tobacco dependence and end-stage renal disease. The patient underwent a left brachial artery to axillary vein gr aft placement on 12/21/[address] Toth. He was admitted to the hospital with new onset of tremors and lower extremity pain. He is been having worsening kidney function over the last 2 months, nephrology consult with vascular surgery for a permacath placement for hemodialysis treatment due to immature AV graft. The patient came to the emergency room with uncontrolled tremors. He also stated he had some chest pain and nausea when he came in. He denies any current chest pain shortness of breath, abdominal pain, nausea or vomiting currently. The patient states he noticed some swelling to his left upper extremity beginning about a week ago, with some pain. He is able to move his left upper extremity and all his fingers. He also notes that he has some pain to his bilateral feet Past Medical History Past Medical History: Coronary Artery Disease (CAD), Chest Pain / Angina, COPD, Diabetes Mellitus, GERD/Reflux, GI Bleed, Hyperlipidemia, Hypertension, Pneumonia, Renal Disease, Vascular Disorder Additional Past Medical History / Comment(s): IDDM type II, lower GI bleed, benign colon polyps, spouse states micro bleeds in intestine are suspected, abdominal distention comes and goes which is nearly daily, partial SBO, chronic renal disease stage IV, iron anemia with iron transfusions (recent R upper chest mediport for infusions), PVD, stable lung nodules, chronic low back pain with bilateral sciatica, RLS, vertigo, insomnia, past agent orange exposure. History of Any Multi-Drug Resistant Organisms: None Reported Past Surgical History: Cholecystectomy, Heart Catheterization Additional Past Surgical History / Comment(s): 03/25/20 R sublclavian mediport, R carotid stent done in [place], EGD/colonoscopyDecember 2016, endoscopic capsule, fx lt wrist -sx re-set, aortagram, bilateral leg revascularizations/stents Past Anesthesia/Blood Transfusion Reactions: No Reported Reaction Additional Past Anesthesia/Blood Transfusion Reaction / Comm: Pt has had blood transfusion without reaction. Past Psychological History: Depression, PTSD Smoking Status: Current every day smoker Past Alcohol Use History: None Reported Past Drug Use History: None Reported - Past Family History Father History Unknown: Yes Mother Family Medical History: Cancer Additional Family Medical History / Comment(s): Mother from metastatic cancer pelvic origin. Medications and Allergies Home Medications Medication Instructions Recorded Confirmed Type Ergocalciferol (Vitamin D2) 50,000 unit PO Q14D 07/18/17 12/31/20 History [Vitamin D2] Simvastatin [Zocor] 40 mg PO HS 07/18/17 12/31/20 History Aspirin EC [Ecotrin Low Dose] 81 mg PO HS 02/10/18 12/31/20 History Ferrous Sulfate [Iron (65 MG 325 mg PO TID 02/10/18 12/31/20 History Elemental)] Cyanocobalamin [Vitamin B-12] 1,000 mcg PO DAILY 09/23/18 12/31/20 History rOPINIRole HCL [Requip] 0.25 mg PO BID 01/09/19 12/31/20 History glipiZIDE [Glucotrol] 5 mg PO BID 05/22/19 12/31/20 History calcitrioL [Rocaltrol] 0.5 mcg PO SUWE 09/17/19 12/31/20 History Omeprazole [PriLOSEC] 20 mg PO HS 09/25/19 12/31/20 History Clopidogrel [Plavix] 75 mg PO HS 04/18/20 12/31/20 History Isosorbide Mononitrate ER [Imdur] 60 mg PO BID #60 tab.er.24h 04/21/20 12/31/20 Rx Nitroglycerin Sl Tabs [Nitrostat] 0.4 mg SUBLINGUAL Q5M PRN #20 tab 04/21/20 12/31/20 Rx Gabapentin [Neurontin] 200 mg PO BID cap 04/28/20 12/31/20 Rx amLODIPine [Norvasc] 10 mg PO DAILY #30 tab 04/28/20 12/31/20 Rx hydrALAZINE HCL [Apresoline] 25 mg PO TID 05/19/20 12/31/20 History Furosemide [Lasix] 80 mg PO BID 05/26/20 12/31/20 History Insulin Glargine [Lantus] 10 unit SQ HS 07/13/20 12/31/20 History Metoprolol Tartrate [Lopressor] 25 mg PO TID 07/13/20 12/31/20 History DULoxetine HCL [Cymbalta] 20 mg PO DAILY 10/27/20 12/31/20 History Ascorbic Acid [Vitamin C] 500 mg PO DAILY 12/19/20 12/31/20 History Folic Acid-Vit B Complex-Vit C 1 cap PO DAILY 12/19/20 12/31/20 History [Nephrocaps] Melatonin 5 mg PO HS 12/19/20 12/31/20 History HYDROcodone/APAP 5-325MG [[place] 1 tab PO Q4HR PRN 3 Days #18 tab 12/21/20 12/31/20 Rx 5-325] Sennosides-Docusate Sodium 2 tab PO TID PRN 12/31/20 12/31/20 History [Senokot-S] Allergies Allergy/AdvReac Type Severity Reaction Status Date / Time Iodinated Contrast Media AdvReac CAN'T Verified 12/31/20 15:39 TAKE, RENAL DISEASE Iodine and Iodide Containing AdvReac CAN'T Verified 12/31/20 15:39 Produc TAKE, RENAL DISEASE Surgical - Exam Vital Signs Temp Pulse Resp BP Pulse Ox 97.7 F 77 22 114/51 97 12/31/20 13:54 12/31/20 13:54 12/31/20 13:54 12/31/20 13:54 12/31/20 13:54 General appearance: The patient is alert, oriented, in no acute distress. HET: Head is normocephalic and atraumatic. Pupils are equal and reactive. Oropharynx is clear without lesions. Neck: Supple without lymphadenopathy. Trachea midline. Heart: S1 S2. Regular rate and rhythm. Lungs: Diminished with crackles in the lower right base Abdomen: Soft, nontender, nondistended. Extremities: Normal skin color and turgor. Left upper extremity with AV graft with audible bruit, nonpalpable thrill. Left upper extremity swelling, AV graft incision site was small amount of serosanguineous drainage. Palpable bilateral radial and DP pulses. Neurological: No focal deficits. Strength and sensation are grossly intact. Results - Labs 01/01/21 05:47 01/01/21 05:47 Abnormal Lab Results - Last 24 Hours (Table) 01/01/21 01/01/21 01/01/21 Range/Units 05:47 05:47 11:40 POC Glucose (mg/dL) 182 H (75-99) mg/dL Iron 47 L (65-175) ug/dL Vitamin B12 1322.0 H (200.0-944.0) pg/mL 01/01/21 01/01/21 01/02/21 Range/Units 16:25 20:44 06:50 POC Glucose (mg/dL) 237 H 235 H 71 L (75-99) mg/dL Iron (65-175) ug/dL Vitamin B12 (200.0-944.0) pg/mL Thyroid panel 01/01/21 Range/Units 05:47 TSH 2.640 (0.350-5.500) uIU/mL Pituitary panel 01/01/21 Range/Units 05:47 TSH 2.640 (0.350-5.500) uIU/mL Assessment and Plan Assessment: 1. End-stage renal disease with worsening creatinine 2. Recent history of left upper extremity AV graft on 12/21/2020 3. Extremity swelling 4. Tremors 5. History of COPD 6. Diabetes mellitus, type II 7. History of coronary artery disease 8. History of peripheral arterial disease status post stenting 9. History of carotid stenosis status post stenting 10. Chronic tobacco dependence Plan: 1. Hold Plavix 2. Nothing by mouth 3. Patient scheduled for tunneled dialysis catheter placement today 4. Left upper extremity venous Doppler ultrasound ordered 5. Hemodialysis per nephrology 6. Tobacco cessation Thank you for this consultation and allowing us take part in the plan of care of your patient during his hospital stay The impression and plan of care has been dictated as directed. Dr. Knox I performed a history and examination of this patient, discussed the same with the dictator. I agree with the dictator's note ,documented as a scribe. Any additional findings or plans will be noted.
[2021-01-02] MEDS: amLODIPine 10 MG TAB PO SCH (10:54)
[2021-01-02] MEDS: hydrALAZINE HCL 25 MG TAB PO SCH ×3 (10:55→20:50)
[2021-01-02] MEDS: METOPROLOL TARTRATE 25 MG TAB PO SCH ×3 (10:55→20:50)
[2021-01-02] MEDS: ISOSORBIDE MONONITRATE ER 60 MG TAB.ER.24H PO SCH ×2 (10:55→20:50)
[2021-01-02 11:06] LABS: Basophils # (A) 0.03 X 10*3/uL (0.00-0.10); Basophils % (A) 0.3 %; Eosinophils # (A) 0.04 X 10*3/uL (0.04-0.35); Eosinophils % (A) 0.4 %; HGB 7.3 g/dL (13.0-17.0); Lymphocytes # (A) 0.84 X 10*3/uL (0.90-5.00); Lymphocytes % (A) 8.3 %; MCHC 30.4 g/dL (32.0-37.0); MCV 111.6 fL (80.0-97.0); Mean Platelet Volume 10.8 fL (9.5-12.2); Monocytes # (A) 0.63 X 10*3/uL (0.20-1.00); Monocytes % (A) 6.3 %; Neutrophils # (A) 8.47 X 10*3/uL (1.80-7.70); Neutrophils % (A) 84.2 %; Platelet Count 291 X 10*3/uL (140-440); RBC 2.15 X 10*6/uL (4.40-5.60); RDW 16.4 % (11.5-14.5); WBC 10.06 X 10*3/uL (4.50-10.00)
[2021-01-02 11:24] LABS: Glucose,Whole Blood 96 mg/dL (75-99)
[2021-01-02 11:31] LABS: Anion Gap 6.2 mmol/L (4.00-12.00); BUN/Creat Ratio 17.03 Ratio (12.00-20.00); Calcium 8.2 mg/dL (8.7-10.3); Carbon Dioxide 26.8 mmol/L (21.6-31.8); Non-African American GFR(CKD) 15.5 (60.0-200.0)
--- NOTE | 2021-01-02 11:34 | US ---
EXAMINATION TYPE: US venous doppler duplex UE LT DATE OF EXAM: 01/02/2021 COMPARISON: NONE CLINICAL HISTORY: swelling, pain. Known AV graft in left arm, pain and swelling and no h/o DVT SIDE PERFORMED: Left Left Arm: Negative for DVT. There is a patent graft seen at area of left cephalic in upper arm IMPRESSION: Grayscale, color doppler, spectral doppler imaging performed of the deep veins of the upper extremiti es. There is normal flow, compressibility and vascular waveforms. 1. No evidence of deep venous thrombosis in the left upper extremity. There is a patent graft in the left cephalic region in the upper arm.
--- NOTE | 2021-01-02 12:00 | PN ---
PROGRESS NOTE Patient is seen for followup for CKD stage 5, scheduled to start hemodialysis today. Patient has had an AV fistula placed about a week to 2 ago and he was admitted with worsening tremors, decreased oral intake, lethargy. The plan is to start dialysis with first treatment for today. PHYSICAL EXAMINATION: On examination today, blood pressure is 131/54, heart rate 65 per minute. Patient is afebrile. EXAMINATION OF THE HEART: S1, S2. EXAMINATION OF THE LUNGS: Decreased breath sounds at bases. Abdomen is soft, nontender. Examination of lower extremities shows no significant edema. CLINICAL DATA ANALYST exam shows persistent tremors. LABS: Labs show sodium 139, potassium 3.7, chloride 106, BUN 68, creatinine 3.9 on 01/01/2021. Hemoglobin 7.8. ASSESSMENT: 1. Chronic kidney disease stage 5 with possible underlying uremia contributing to the tremors. The patient had been on Neurontin, which was already discontinued prior to admission. Patient is scheduled for PermCath placement today with first treatment scheduled for today. We will dialyze him again tomorrow. 2. Status post recent AV fistula left upper extremity. 3. Chronic kidney disease mineral bone disorder. 4. Anemia of chronic disease. PLAN: Hemodialysis today after PermCath is placed. MMODL / IJN: [id number] /
--- NOTE | 2021-01-02 12:22 | P.CRDCN ---
History of Present Illness History of present illness: HISTORY OF PRESENTING ILLNESS This is a pleasant 70-year-old male past medical history significant for coronary artery disease s/p PCI in 04/2020, hypertension, dyslipidemia, chronic kidney disease, type II diabetes, anemia, obstructive sleep apnea, peripheral artery disease with prior stenting of the right SFA and left SFA, bilateral carotid artery disease status post stent placement of the carotid, he has had recurrent pleural effusions. He follows in the office with Dr. Sims. We have been asked to see in consultation for episode of chest pain yesterday. Patient is seen and examined at bedside, no acute distress, sitting up in the bedside chair. Patient presents emergency department for evaluation of tremor for the past week. He endorses some intermittent chest pain. It comes and goes. It only lasts for a few seconds. It is non-exertional, non-radiating. He denies shortness of breath, diaphoresis, nausea, lightheadedness or dizziness, palpitations. EKG with no signs of ischemia or acute changes. Troponin negative x 1. DIAGNOSTICS CT brain no acute intracranial abnormality Chest xray right pleural effusion and right lower lobe mild infiltrate and atelectasis slightly worse than last exam Echocardiogram 06/2020- EF 45-50%, normal LAP grade 1 diastolic dysfunction, mid to basal inferolateral is hypokinetic, LA is mildly dilated, mild aortic regurgitation, mild aortic stenosis with a peak/mean gradient 17 mmHg/10 mmHg, mild mitral regurgitation, mild to moderate mitral stenosis with a peak/mean gradient of 7 mmHg/2.3 mmHg, mild tricuspid regurgitation. Echocardiogram performed in March 2020 revealing EF 50-55%, mild aortic regurgitation and mild mitral regurgitation. Cardiac catheterization on 04/27/2020 with PCI to the ostial PDA branch of the RCA. Laboratory reviewed, troponin negative 1, sodium 139, potassium 3.7, serum creatinine 3.91, BUN 68. Currenthome cardiac medications include hydralazine 25 mg 3 times a day, amlodipine 10 mg daily, simvastatin 40 mg daily, metoprolol titrate 25 mg 3 times a day, Imdur 60 mg twice a day, Lasix 80 mg twice a day, Plavix 75 mg nightly, aspirin 81 mg nightly. REVIEW OF SYSTEMS At the time of my exam: CONSTITUTIONAL: Denies fever or chills. CARDIOVASCULAR: +chest pain Denies , shortness of breath, orthopnea, PND or palpitations. RESPIRATORY: Denies cough. GASTROINTESTINAL: Denies abdominal pain, diarrhea, constipation, nausea or vomiting. MUSCULOSKELETAL: Denies myalgias. NEUROLOGIC: +tremors Denies numbness, tingling, headacbe or weakness. ENDOCRINE: Denies fatigue, weight change, polydipsia or polyurina. GENITOURINARY: Denies burning, hematuria or urgency with micturation. HEMATOLOGIC: Denies history of anemia or bleeding. PHYSICAL EXAMINATION Blood pressure 131/54 heart rate 65 afebrile and maintaining oxygen saturation 96% on 2 L nasal cannula CONSTITUTIONAL: No apparent distress. HEENT: Head is normocephalic. Pupils are equal, round. Sclerae anicteric. Mucous membranes of the mouth are moist. No JVD. No carotid bruit. CHEST EXAMINATION: Lungs are clear to auscultation. No chest wall tenderness is noted on palpation or with deep breathing. HEART EXAMINATION: Regular rate and rhythm. S1, S2 heard. Systolic ejection murmur noted at the apex No gallops or rub. ABDOMEN: Soft, nontender. Positive bowel sounds. EXTREMITIES: 2+ peripheral pulses, no lower extremity edema and no calf tenderness. NEUROLOGIC EXAMINATION: Patient is awake, alert and oriented x3. ASSESSMENT Chest pain, atypical, not indicative of acute myocardial injury with no ishemia on EKGs and negative cardiac enzyme Coronary artery disease with recent PCI of ostial PDA branch of the RCA, April 2020 Carotid stenosis with previous right carotid stenting Peripheral arterial disease with previous bilateral revascularization with stents History of recurrent pleural effusions- History of thoracentesis in April and June 2020 with removal of 1300 mL Hypertension Hyperlipidemia Type 2 Diabetes mellitus COPD Chronic kidney disease PLAN 2D echocardiogram ordered, will follow up on the results From cardiology perspective, chest pain is atypical, not indicative of acute myocardial injury. Coronary artery disease is stable. No further testing indicative at this time. If not acute changes on echocardiogram, we will follow the patient as needed. Patient can follow up outpatient with Dr. Sims Nurse Practitioner note has been reviewed, I agree with a documented findings an d plan of care. Patient was seen and examined. Past Medical History Past Medical History: Coronary Artery Disease (CAD), Chest Pain / Angina, COPD, Diabetes Mellitus, GERD/Reflux, GI Bleed, Hyperlipidemia, Hypertension, Pneumonia, Renal Disease, Vascular Disorder Additional Past Medical History / Comment(s): IDDM type II, lower GI bleed, benign colon polyps, spouse states micro bleeds in intestine are suspected, abdominal distention comes and goes which is nearly daily, partial SBO, chronic renal disease stage IV, iron anemia with iron transfusions (recent R upper chest mediport for infusions), PVD, stable lung nodules, chronic low back pain with bilateral sciatica, RLS, vertigo, insomnia, past agent orange exposure. History of Any Multi-Drug Resistant Organisms: None Reported Past Surgical History: Cholecystectomy, Heart Catheterization Additional Past Surgical History / Comment(s): 03/25/20 R sublclavian mediport, R carotid stent done in [place], EGD/colonoscopyDecember 2017, endoscopic capsule, fx lt wrist -sx re-set, aortagram, bilateral leg revascularizations/stents Past Anesthesia/Blood Transfusion Reactions: No Reported Reaction Additional Past Anesthesia/Blood Transfusion Reaction / Comment(s): Pt has had blood transfusion without reaction. Past Psychological History: Depression, PTSD Smoking Status: Current every day smoker Past Alcohol Use History: None Reported Past Drug Use History: None Reported - Past Family History Father History Unknown: Yes Mother Family Medical History: Cancer Additional Family Medical History / Comment(s): Mother from metastatic cancer pelvic origin. Medications and Allergies Home Medications Medication Instructions Recorded Confirmed Type Ergocalciferol (Vitamin D2) 50,000 unit PO Q14D 07/18/17 12/31/20 History [Vitamin D2] Simvastatin [Zocor] 40 mg PO HS 07/18/17 12/31/20 History Aspirin EC [Ecotrin Low Dose] 81 mg PO HS 02/10/18 12/31/20 History Ferrous Sulfate [Iron (65 MG 325 mg PO TID 02/10/18 12/31/20 History Elemental)] Cyanocobalamin [Vitamin B-12] 1,000 mcg PO DAILY 09/23/18 12/31/20 History rOPINIRole HCL [Requip] 0.25 mg PO BID 01/09/19 12/31/20 History glipiZIDE [Glucotrol] 5 mg PO BID 05/22/19 12/31/20 History calcitrioL [Rocaltrol] 0.5 mcg PO SUWE 09/17/19 12/31/20 History Omeprazole [PriLOSEC] 20 mg PO HS 09/25/19 12/31/20 History Clopidogrel [Plavix] 75 mg PO HS 04/18/20 12/31/20 History Isosorbide Mononitrate ER [Imdur] 60 mg PO BID #60 tab.er.24h 04/21/20 12/31/20 Rx Nitroglycerin Sl Tabs [Nitrostat] 0.4 mg SUBLINGUAL Q5M PRN #20 tab 04/21/20 12/31/20 Rx Gabapentin [Neurontin] 200 mg PO BID cap 04/28/20 12/31/20 Rx amLODIPine [Norvasc] 10 mg PO DAILY #30 tab 04/28/20 12/31/20 Rx hydrALAZINE HCL [Apresoline] 25 mg PO TID 05/19/20 12/31/20 History Furosemide [Lasix] 80 mg PO BID 05/26/20 12/31/20 History Insulin Glargine [Lantus] 10 unit SQ HS 07/13/20 12/31/20 History Metoprolol Tartrate [Lopressor] 25 mg PO TID 07/13/20 12/31/20 History DULoxetine HCL [Cymbalta] 20 mg PO DAILY 10/27/20 12/31/20 History Ascorbic Acid [Vitamin C] 500 mg PO DAILY 12/19/20 12/31/20 History Folic Acid-Vit B Complex-Vit C 1 cap PO DAILY 12/19/20 12/31/20 History [Nephrocaps] Melatonin 5 mg PO HS 12/19/20 12/31/20 History HYDROcodone/APAP 5-325MG [Assonet 1 tab PO Q4HR PRN 3 Days #18 tab 12/21/20 12/31/20 Rx 5-325] Sennosides-Docusate Sodium 2 tab PO TID PRN 12/31/20 12/31/20 History [Senokot-S] Allergies Allergy/AdvReac Type Severity Reaction Status Date / Time Iodinated Contrast Media AdvReac CAN'T Verified 12/31/20 15:39 TAKE, RENAL DISEASE Iodine and Iodide Containing AdvReac CAN'T Verified 12/31/20 15:39 Produc TAKE, RENAL DISEASE Physical Exam Vitals: Vital Signs Temp Pulse Resp BP Pulse Ox 01/02/21 07:58 97.9 F 65 19 131/54 96 01/02/21 02:27 98.0 F 72 16 119/60 100 01/01/21 19:45 16 01/01/21 19:31 98.5 F 76 16 134/57 94 L 01/01/21 13:45 97.3 F L 62 18 137/52 98 Intake and Output 01/01/21 01/02/21 01/02/21 22:59 06:59 14:59 Intake Total 910 Balance 910 Intake: Intake, IV Titration 550 Amount Azithromycin 500 mg In 250 Sodium Chloride 0.9% 250 ml @ 250 mls/hr IVPB DAILY [facility] Rx#:[id number] Azithromycin 500 mg In 250 Sodium Chloride 0.9% 250 ml @ 250 mls/hr IVPB ONCE STA Rx#:[id number] cefTRIAXone 1 gm In 50 Sodium Chloride 0.9% 50 ml @ 100 mls/hr IVPB ONCE STA Rx#:[id number] Oral 360 Other: # Voids 2 Results 01/02/21 06:30 01/02/21 06:30 Cardiac Enzymes 01/01/21 Range/Units 12:20 Troponin I <0.012 (0.000-0.034) ng/mL Current Medications Generic Name Dose Route Start Last Admin Trade Name Freq PRN Reason Stop Dose Admin Hydrocodone Bitart/Acetaminophen 1 each 12/31/20 19:31 01/01/21 19:32 Hydrocodone/Apap 5-325mg 1 Each Tab PO 1 each Q4HR PRN Administration Pain Amlodipine Besylate 10 mg 12/31/20 19:45 01/01/21 08:36 Amlodipine 10 Mg Tab PO 10 mg DAILY [facility] Administration Ascorbic Acid 500 mg 01/01/21 09:00 01/02/21 07:29 Ascorbic Acid 500 Mg Tab PO 500 mg DAILY [facility] Administration Aspirin 81 mg 12/31/20 21:00 01/01/21 11:56 Aspirin 81 Mg PO 81 mg HS [facility] Administration Azithromycin 500 mg 01/02/21 09:00 01/02/21 07:30 Azithromycin 500 Mg Tab PO 500 mg DAILY [facility] Administration Calcitriol 0.5 mcg 01/01/21 09:00 01/01/21 08:35 Calcitriol 0.25 Mcg Cap PO 0.5 mcg SUWE [facility] Administration Clopidogrel Bisulfate 75 mg 12/31/20 21:00 01/02/21 08:15 Clopidogrel 75 Mg Tab PO Not Given HS [facility] Cyanocobalamin 1,000 mcg 01/01/21 09:00 01/02/21 07:28 Cyanocobalamin 500 Mcg Tab PO 1,000 mcg DAILY [facility] Administration Darbepoetin Joel 40 mcg 01/01/21 14:00 01/01/21 16:54 Darbepoetin Joel 40 Mcg/0.4 Ml Syringe SQ 40 mcg Q7D [facility] Administration Duloxetine HCl 20 mg 01/01/21 09:00 01/02/21 07:30 Duloxetine Hcl 20 Mg Capsule.Dr PO 20 mg DAILY [facility] Administration Ergocalciferol 1,250 mcg 01/12/21 09:00 Ergocalciferol 1,250 Mcg (50,000 Iu) Capsule PO Q14D [facility] Ferrous Sulfate 325 mg 12/31/20 22:00 01/02/21 07:29 Ferrous Sulfate 325 Mg Tab PO 325 mg TID [facility] Administration Glipizide 5 mg 12/31/20 21:00 01/02/21 07:28 Glipizide 5 Mg Tab PO 5 mg BID [facility] Administration Hydralazine HCl 25 mg 12/31/20 22:00 01/01/21 21:53 Hydralazine Hcl 25 Mg Tab PO 25 mg TID [facility] Administration Ceftriaxone Sodium 1 gm/ 50 mls @ 100 mls/hr 01/01/21 09:00 01/02/21 07:25 Sodium Chloride IVPB 100 mls/hr Q24HR [facility] Administration Insulin Aspart 0 unit 12/31/20 21:00 01/02/21 07:16 Insulin Aspart (Novolog) 100 Unit/Ml Vial SQ Not Given ACHS [facility] Protocol Insulin Detemir 20 unit 01/01/21 21:00 01/01/21 21:52 Insulin Detemir (Levemir) 100 Unit/Ml Syr SQ 20 unit HS [facility] Administration Isosorbide Mononitrate 60 mg 12/31/20 21:00 01/01/21 21:53 Isosorbide Mononitrate Er 60 Mg Tab.Er.24h PO 60 mg BID [facility] Administration Melatonin 5 mg 12/31/20 21:00 01/01/21 21:52 Melatonin 5 Mg Tablet PO 5 mg HS [facility] Administration Metoprolol Tartrate 25 mg 12/31/20 22:00 01/01/21 21:53 Metoprolol Tartrate 25 Mg Tab PO 25 mg TID [facility] Administration Morphine Sulfate 4 mg 12/31/20 17:49 01/02/21 07:25 Morphine Sulfate 4 Mg/Ml Syringe IVP 4 mg Q4HR PRN Administration Pain Multivit/Ca Carb/B Cmplx/FA/Prenat 1 each 01/01/21 09:00 01/02/21 07:30 Folic Acid-Vit B Complex-Vit C 1 Cap PO 1 each DAILY [facility] Administration Naloxone HCl 0.2 mg 12/31/20 17:45 Naloxone 0.4 Mg/Ml 1 Ml Vial IV Q2M PRN Opioid Reversal Nitroglycerin 0.4 mg 12/31/20 19:31 01/01/21 11:55 Nitroglycerin Sl Tabs 0.4 Mg Tab SUBLINGUAL 0.4 mg Q5M PRN Administration Chest Pain Pantoprazole Sodium 40 mg 12/31/20 21:00 01/01/21 21:52 Pantoprazole 40 Mg Tablet PO 40 mg HS [facility] Administration Ropinirole HCl 0.25 mg 12/31/20 21:00 01/02/21 07:29 Ropinirole Hcl 0.25 Mg Tab PO 0.25 mg BID [facility] Administration Senna/Docusate Sodium 2 each 12/31/20 19:31 Sennosides-Docusate Sodium 1 Each Tab PO TID PRN Constipation Intake and Output 01/01/21 01/02/21 01/02/21 22:59 06:59 14:59 Intake Total 910 Balance 910 Intake: Intake, IV Titration 550 Amount Azithromycin 500 mg In 250 Sodium Chloride 0.9% 250 ml @ 250 mls/hr IVPB DAILY [facility] Rx#:[id number] Azithromycin 500 mg In 250 Sodium Chloride 0.9% 250 ml @ 250 mls/hr IVPB ONCE STA Rx#:[id number] cefTRIAXone 1 gm In 50 Sodium Chloride 0.9% 50 ml @ 100 mls/hr IVPB ONCE STA Rx#:[id number] Oral 360 Other: # Voids 2 01/01/21 05:47 01/01/21 05:47
--- NOTE | 2021-01-02 13:33 | P.PN ---
Subjective Progress Note Date: 01/02/21 Patient was seen for a follow-up. Initially patient was seen by Dr. Nawaf Gonzalez. Please refer to his note for details. Patient's was also present by the bedside. Neurology was consulted for tremors. It was felt by Dr. Gonzalez that patient's tremors are metabolic in nature. Patient also has RLS, iron deficiency anemia, diabetes which is not controlled. Patient has worsening renal functions. Tammy edwards is undergoing dialysis catheter placement today and will undergo dialysis. Patient is currently on Neurontin 200 mg twice a day. Also on Requip 0.25 mg twice a day for restless legs. Patient denies any worsening of his tremors. Objective - Vital Signs Vital signs: Vital Signs Temp 97.9 F 01/02/21 07:58 Pulse 65 01/02/21 07:58 Resp 19 01/02/21 07:58 BP 131/54 01/02/21 07:58 Pulse Ox 96 01/02/21 07:58 Intake & Output 01/01/21 01/02/21 01/02/21 18:59 06:59 18:59 Intake Total 1150 720 Balance 1150 720 Intake: Intake, IV Titration 550 Amount Azithromycin 500 mg In 250 Sodium Chloride 0.9% 250 ml @ 250 mls/hr IVPB DAILY [facility] Rx#:[id number] Azithromycin 500 mg In 250 Sodium Chloride 0.9% 250 ml @ 250 mls/hr IVPB ONCE STA Rx#:[id number] cefTRIAXone 1 gm In 50 Sodium Chloride 0.9% 50 ml @ 100 mls/hr IVPB ONCE STA Rx#:[id number] Oral 600 720 Other: # Voids 2 - Exam Patient is an elderly male, laying comfortably in the bed. Appears to be somewhat nervous. Speech and language functions are normal. Cranial nerves are normal except for decreased hearing bilaterally. Muscle strength no drift and the strength is normal in arms and legs. Reflexes are 1+ in the upper limbs, 2 at the knees and ankles and plantars are downgoing. Sensory touch is equal. No ataxia. Patient has at least moderate tremors of outstretched hands as well as with intention for [id number] testing. Occasional tremors noted at rest also. Tone is mildly increased on the left. Gait deferred. - Labs CBC & Chem 7: 01/02/21 06:30 01/02/21 06:30 Labs: Abnormal Lab Results - Last 24 Hours (Table) 01/01/21 01/01/21 01/01/21 Range/Units 05:47 05:47 16:25 WBC (4.50-10.00) X 10*3/uL RBC (4.40-5.60) X 10*6/uL Hgb (13.0-17.0) g/dL Hct (39.6-50.0) % MCV (80.0-97.0) fL MCH (27.0-32.0) pg MCHC (32.0-37.0) g/dL RDW (11.5-14.5) % Immature Gran # (0.00-0.04) X 10*3/uL Neutrophils # (1.80-7.70) X 10*3/uL Lymphocytes # (0.90-5.00) X 10*3/uL Chloride (96-109) mmol/L BUN (9.0-27.0) mg/dL Creatinine (0.6-1.5) mg/dL Est GFR (CKD-EPI)AfAm (60.0-200.0) Est GFR (CKD-EPI)NonAf (60.0-200.0) Glucose (70-110) mg/dL POC Glucose (mg/dL) 237 H (75-99) mg/dL Calcium (8.7-10.3) mg/dL Iron 47 L (65-175) ug/dL Vitamin B12 1322.0 H (200.0-944.0) pg/mL 01/01/21 01/02/21 01/02/21 Range/Units 20:44 06:30 06:30 WBC 10.06 H (4.50-10.00) X 10*3/uL RBC 2.15 L (4.40-5.60) X 10*6/uL Hgb 7.3 L (13.0-17.0) g/dL Hct 24.0 L (39.6-50.0) % MCV 111.6 H (80.0-97.0) fL MCH 34.0 H (27.0-32.0) pg MCHC 30.4 L (32.0-37.0) g/dL RDW 16.4 H (11.5-14.5) % Immature Gran # 0.05 H (0.00-0.04) X 10*3/uL Neutrophils # 8.47 H (1.80-7.70) X 10*3/uL Lymphocytes # 0.84 L (0.90-5.00) X 10*3/uL Chloride 111 H (96-109) mmol/L BUN 63.0 H (9.0-27.0) mg/dL Creatinine 3.7 H (0.6-1.5) mg/dL Est GFR (CKD-EPI)AfAm 18.0 L (60.0-200.0) Est GFR (CKD-EPI)NonAf 15.5 L (60.0-200.0) Glucose 62 L (70-110) mg/dL POC Glucose (mg/dL) 235 H (75-99) mg/dL Calcium 8.2 L (8.7-10.3) mg/dL Iron (65-175) ug/dL Vitamin B12 (200.0-944.0) pg/mL 01/02/21 Range/Units 06:50 WBC (4.50-10.00) X 10*3/uL RBC (4.40-5.60) X 10*6/uL Hgb (13.0-17.0) g/dL Hct (39.6-50.0) % MCV (80.0-97.0) fL MCH (27.0-32.0) pg MCHC (32.0-37.0) g/dL RDW (11.5-14.5) % Immature Gran # (0.00-0.04) X 10*3/uL Neutrophils # (1.80-7.70) X 10*3/uL Lymphocytes # (0.90-5.00) X 10*3/uL Chloride (96-109) mmol/L BUN (9.0-27.0) mg/dL Creatinine (0.6-1.5) mg/dL Est GFR (CKD-EPI)AfAm (60.0-200.0) Est GFR (CKD-EPI)NonAf (60.0-200.0) Glucose (70-110) mg/dL POC Glucose (mg/dL) 71 L (75-99) mg/dL Calcium (8.7-10.3) mg/dL Iron (65-175) ug/dL Vitamin B12 (200.0-944.0) pg/mL Assessment and Plan Assessment: * Generalized tremors of upper and lower extremities at rest and movement with jerks (without loss of consciousness): Seems due to metabolic derangement. No evidence of seizures. * Uncontrolled sugar on presentation with sugar in the 300's--improving * Acute on chronic kidney insufficiency, mildly improving * Hypoxemia with pO2 58, saturation 89% (on 21% FiO2) on ABG 12/31/2020. * Acute on chronic anemia, macrocytic anemia. * History of restless leg syndrome * History of right carotid stent in 2017 * Diabetes mellitus * History of Coronary artery disease * History of Peripheral vascular disease status post stenting Plan: * Patient's tremors are likely metabolic due to multiple metabolic dysfunction as mentioned above. * CT of the head is reported as mild atrophy. No acute intracranial abnormality. * Continue Requip 0.25 mg 1 tablet twice a day. * TSH 2.64, vitamin B12 1322, folate level > 24.0. * Regarding the patient complained of pain in the feet this could be neuropathy from uncontrolled diabetes as well as rule out other neuropathy. Recommend EMG with nerve conduction as an outpatient and further workup as an outpatient. * Hemoglobin A1c 8.1. Need to optimize diabetes to target A1c <7.0. * Upon discharge the patient is to follow up with a neurologist within 1-2 weeks as outpatient. * Will Defer the rest of the medical management to the primary team.
[2021-01-02] MEDS ORDERED: LIDOCAINE 1% INJ 10MG/ML (20 ML MDV) ONE (14:23)
--- NOTE | 2021-01-02 15:26 | P.PN ---
Subjective Progress Note Date: 01/02/21 Principal diagnosis: Chronic right lower lobe changes without evidence of acute pneumonia This is a 70-year-old gentleman who follows with the [facility] as his primary care provider. He has history of coronary artery disease, carotid stenosis with previous right stent placement, right subclavian Mediport placement, bilateral leg revascularizations with stents for peripheral vascular disease, depression/PTSD, diabetes mellitus, hypertension, hyperlipidemia, chronic obstructive pulmonary disease with chronic and ongoing tobacco dependence. He presented to the emergency room yesterday with complaints of uncontrolled tremors and lower extremity pain and discomfort. No shortness of breath, cough or congestion. Computed tomography scan of the brain revealed no acute intracranial abnormality. Chest x-ray did reveal some chronic changes of the right pleural effusion with right lower lobe mild infiltrate/atelectasis. We're consulted for the same. He is seen today in consultation on the regular medical floor. He is currently up ambulating in his room. He is quite tremorous. He also was complaining of nausea and chest pain. He denies any shortness of breath, cough or congestion. No fever, chills or night sweats. He is maintaining O2 saturations in the mid 90s on room air. He's afebrile. Hemodynamically stable. Arterial blood gases revealed a pO2 58, pCO2 40, pH 7.33 on 21% FiO2 White count 9.9. Hemoglobin 7.8. Sodium 139. Potassium 3.7. Creatinine 3.91. Troponin negative 2. ProBNP 5180. Dodson virus not detected. Initiated on antibiotics in the form of ceftriaxone and azithromycin. On 01/02/2021 patient seen in follow-up on medical surgical floor. He is awake and alert, in no acute distress, he is currently on 3 L of oxygen his pulse ox is 97%, no cough, no complaints of chest discomfort. He is supposed to have his first hemodialysis treatment today. His had no fever or chills. No hemoptysis. He remains on Zithromax and Rocephin for possibility of underlying pneumonia although this is felt to be less likely. Today's labs have been reviewed showing white blood cell count of 10.06, hemoglobin of 7.3, sodium is 144, potassium is 4.0, chloride is 111, BUN of 63 creatinine of 3.7 Objective - Vital Signs Vital signs: Vital Signs Temp 98.0 F 01/02/21 14:00 Pulse 70 01/02/21 14:00 Resp 18 01/02/21 14:00 BP 149/61 01/02/21 14:00 Pulse Ox 97 01/02/21 14:00 Intake & Output 01/01/21 01/02/21 01/02/21 18:59 06:59 18:59 Intake Total 1150 720 Balance 1150 720 Intake: Intake, IV Titration 550 Amount Azithromycin 500 mg In 250 Sodium Chloride 0.9% 250 ml @ 250 mls/hr IVPB DAILY [facility] Rx#:[id number] Azithromycin 500 mg In 250 Sodium Chloride 0.9% 250 ml @ 250 mls/hr IVPB ONCE STA Rx#:[id number] cefTRIAXone 1 gm In 50 Sodium Chloride 0.9% 50 ml @ 100 mls/hr IVPB ONCE STA Rx#:[id number] Oral 600 720 Other: # Voids 2 - Exam GENERAL EXAM: Alert, very pleasant, 70-year-old white female, resting in bed, on 2 L of oxygen a pulse ox of 96% comfortable in no apparent distress. HEAD: Normocephalic/atraumatic. EYES: Normal reaction of pupils, equal size. Conjunctiva pink, sclera white. NOSE: Clear with pink turbinates. THROAT: No erythema or exudates. NECK: No masses, no JVD, no thyroid enlargement, no adenopathy. CHEST: No chest wall deformity. Symmetrical expansion. LUNGS: Equal air entry with no crackles, wheeze, rhonchi or dullness. CVS: Regular rate and rhythm, normal S1 and S2, no gallops, no murmurs, no rubs ABDOMEN: Soft, nontender. No hepatosplenomegaly, normal bowel sounds, no guarding or rigidity. EXTREMITIES: No clubbing, no edema, no cyanosis, 2+ pulses and upper and lower extremities. MUSCULOSKELETAL: Muscle strength and tone normal. SPINE: No scoliosis or deformity SKIN: No rashes CENTRAL NERVOUS SYSTEM: Alert and oriented -3. No focal deficits, tone is normal in all 4 extremities. PSYCHIATRIC: Alert and oriented -3. Appropriate affect. Intact judgment and insight. - Labs CBC & Chem 7: 01/02/21 06:30 01/02/21 06:30 Labs: Abnormal Lab Results - Last 24 Hours (Table) 01/01/21 01/01/21 01/01/21 Range/Units 05:47 05:47 16:25 WBC (4.50-10.00) X 10*3/uL RBC (4.40-5.60) X 10*6/uL Hgb (13.0-17.0) g/dL Hct (39.6-50.0) % MCV (80.0-97.0) fL MCH (27.0-32.0) pg MCHC (32.0-37.0) g/dL RDW (11.5-14.5) % Immature Gran # (0.00-0.04) X 10*3/uL Neutrophils # (1.80-7.70) X 10*3/uL Lymphocytes # (0.90-5.00) X 10*3/uL Chloride (96-109) mmol/L BUN (9.0-27.0) mg/dL Creatinine (0.6-1.5) mg/dL Est GFR (CKD-EPI)AfAm (60.0-200.0) Est GFR (CKD-EPI)NonAf (60.0-200.0) Glucose (70-110) mg/dL POC Glucose (mg/dL) 237 H (75-99) mg/dL Calcium (8.7-10.3) mg/dL Iron 47 L (65-175) ug/dL Vitamin B12 1322.0 H (200.0-944.0) pg/mL 01/01/21 01/02/21 01/02/21 Range/Units 20:44 06:30 06:30 WBC 10.06 H (4.50-10.00) X 10*3/uL RBC 2.15 L (4.40-5.60) X 10*6/uL Hgb 7.3 L (13.0-17.0) g/dL Hct 24.0 L (39.6-50.0) % MCV 111.6 H (80.0-97.0) fL MCH 34.0 H (27.0-32.0) pg MCHC 30.4 L (32.0-37.0) g/dL RDW 16.4 H (11.5-14.5) % Immature Gran # 0.05 H (0.00-0.04) X 10*3/uL Neutrophils # 8.47 H (1.80-7.70) X 10*3/uL Lymphocytes # 0.84 L (0.90-5.00) X 10*3/uL Chloride 111 H (96-109) mmol/L BUN 63.0 H (9.0-27.0) mg/dL Creatinine 3.7 H (0.6-1.5) mg/dL Est GFR (CKD-EPI)AfAm 18.0 L (60.0-200.0) Est GFR (CKD-EPI)NonAf 15.5 L (60.0-200.0) Glucose 62 L (70-110) mg/dL POC Glucose (mg/dL) 235 H (75-99) mg/dL Calcium 8.2 L (8.7-10.3) mg/dL Iron (65-175) ug/dL Vitamin B12 (200.0-944.0) pg/mL 01/02/21 Range/Units 06:50 WBC (4.50-10.00) X 10*3/uL RBC (4.40-5.60) X 10*6/uL Hgb (13.0-17.0) g/dL Hct (39.6-50.0) % MCV (80.0-97.0) fL MCH (27.0-32.0) pg MCHC (32.0-37.0) g/dL RDW (11.5-14.5) % Immature Gran # (0.00-0.04) X 10*3/uL Neutrophils # (1.80-7.70) X 10*3/uL Lymphocytes # (0.90-5.00) X 10*3/uL Chloride (96-109) mmol/L BUN (9.0-27.0) mg/dL Creatinine (0.6-1.5) mg/dL Est GFR (CKD-EPI)AfAm (60.0-200.0) Est GFR (CKD-EPI)NonAf (60.0-200.0) Glucose (70-110) mg/dL POC Glucose (mg/dL) 71 L (75-99) mg/dL Calcium (8.7-10.3) mg/dL Iron (65-175) ug/dL Vitamin B12 (200.0-944.0) pg/mL Assessment and Plan Plan: Assessment: #1. Chronic right lower lobe changes without evidence of acute pneumonia #2. Tremors and lower extremity pain unclear etiology #3. Atypical chest pain #4. Chronic kidney disease stage V with recent AV fistula of the left forearm #5. History of COPD #6. Chronic tobacco dependence syndrome #7. Diabetes mellitus with diabetic neuropathy #8. Hypertension #9. Hyperlipidemia #10. Peripheral vascular disease with previous bilateral lack revascularization and stent placement #11. Carotid artery stenosis with previous right carotid stent placement #12. History of PTSD and depression #13. Right subclavian MediPort placement Plan: Continue current medical treatment Vital signs are stable, no fever or chills Weaning FiO2 No worsening dyspnea or cough No phlegm production Follow-up chest x-ray tomorrow Patient will have his first hemodialysis session today I performed a history & physical examination of the patient and discussed their management with my nurse practitioner, Arelis Mohamud. I reviewed the nurse practitioner's note and agree with the documented findings and plan of care. Lung sounds are positive for diffuse wheezes throughout the lung wing. The findings and the impression was discussed with the patient. I attest to the documentation by the nurse practitioner. Time with Patient: Less than 30
[2021-01-02 16:25] LABS: Glucose,Whole Blood 87 mg/dL (75-99)
[2021-01-02 16:28] LABS: Hepatitis A Antibody IgM Non-Reactive (Non-Reactive); Hepatitis B Core IgM Non-Reactive (Non-Reactive)
[2021-01-02 16:29] LABS: Hepatitis B Surface Antigen Non-Reactive (Non-Reactive); Hepatitis C IgG Antibody Non-Reactive (Non-Reactive)
[2021-01-02] MEDS: ONDANSETRON 4 MG/2 ML VIAL IVP PRN (16:45)
--- NOTE | 2021-01-02 17:37 | PN ---
PROGRESS NOTE DATE OF SERVICE: 01/02/2021 This 70-year-old gentleman who was admitted with acute on chronic renal failure with possible acute tubular necrosis is being closely monitored at this time. The patient has severe metabolic acidosis. The patient continues to be confused. Neurology is following the patient closely. Venous Doppler showed no evidence of DVT. Patent graft was noted. Dr. Ivory is recommending a PermCath placement because there is some leaking at the AV graft site on the left arm. No chest pain. No palpitations. Past medical history reviewed. REVIEW OF SYSTEMS: CARDIOVASCULAR SYSTEM: No angina, palpitations. RESPIRATORY SYSTEM: As mentioned earlier. GI: As mentioned earlier. : No dysuria or retention. NERVOUS SYSTEM: No numbness, weakness. CURRENT MEDICATIONS: Reviewed. They include [place], Norvasc, vitamin C, aspirin, Zithromax, Rocaltrol, Rocephin, Plavix, vitamin B, Aranesp. Doses are reviewed. PHYSICAL EXAMINATION: Patient alert and oriented x3. Pulse 70, blood pressure 140/61, respiration 18, temperature 98 degrees, pulse ox 97% on 3 L. HEENT: Conjunctivae normal. NECK: No jugular venous distention. CARDIOVASCULAR SYSTEM: S1, S2 muffled. RESPIRATORY SYSTEM: Breath sounds diminished at the bases. A few scattered rhonchi and crackles. ABDOMEN: Soft, non-tender. LEGS: No edema. No swelling. NERVOUS SYSTEM: No focal deficit. LABS: WBC 10.06, hemoglobin 7.3. Calcium is 8.2. ASSESSMENT: 1. Acute on chronic renal failure with possible acute tubular necrosis. 2. 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 3. Change in mental status, acute metabolic encephalopathy. 4. Status post vascular access. 5. Congestive heart failure with fluid overload. 6. Anemia, macrocytic, possibly secondary to renal disease. 7. Hyponatremia. 8. Diabetes mellitus, type 2, uncontrolled with hyperglycemia. 9. Hypoalbuminemia with mild protein-calorie malnutrition. 10.History of coronary artery disease. 11.Chronic obstructive pulmonary disease. 12.History of gastroesophageal reflux disease. 13.History of gastrointestinal bleed. 14.Hypertension. 15.Hyperlipidemia. 16.History of pneumonia. 17.History of benign colonic polyps. 18.History of peripheral vascular disease. 19.History of lung nodules. 20.History of cholecystectomy. 21.Right MediPort insertion. 22.History of right carotid stent. 23.History of depression, post-traumatic stress disorder. 24.History of nicotine dependence, continued ongoing. 25.FULL CODE. RECOMMENDATIONS AND DISCUSSION: I recommend to continue current medications, continue with the monitoring, symptomatic treatment. Otherwise, we will continue to monitor. Hemodialysis per Dr. Ivory. Empiric antibiotics have been initiated. The cultures are negative so far. I would also recommend repeat labs. Prognosis guarded because of multiple complex medical issues. Further recommendations to follow. DVT prophylaxis. MMODL / IJN: [id number] /
[2021-01-02 20:44] LABS: Glucose,Whole Blood 130 mg/dL (75-99)
[2021-01-02] MEDS: INSULIN DETEMIR (LEVEMIR) 100 UNIT/ML SYR SQ SCH (20:45)
[2021-01-02] MEDS: MELATONIN 5 MG TABLET PO SCH (20:50)
[2021-01-02] MEDS: PANTOPRAZOLE 40 MG TABLET PO SCH (20:50)
[2021-01-02] MEDS: ASPIRIN 81 MG PO SCH (20:50)
[2021-01-02] MEDS: HYDROcodone/APAP 5-325MG 1 EACH TAB PO PRN (23:07)
[2021-01-03 04:33] LABS: Hepatitis B Surface AB- Quant 3.5 mIU/mL; Hepatitis B Surface Antibody Non-Reactive (Non-Reactive)
[2021-01-03 07:21] LABS: Glucose,Whole Blood 136 mg/dL (75-99)
[2021-01-03] MEDS: INSULIN ASPART (NovoLOG) 100 UNIT/ML VIAL SQ SCH ×2 (07:23→11:50)
[2021-01-03] MEDS: METOPROLOL TARTRATE 25 MG TAB PO SCH (07:24)
[2021-01-03] MEDS: CYANOCOBALAMIN 500 MCG TAB PO SCH (07:24)
[2021-01-03] MEDS: FERROUS SULFATE 325 MG TAB PO SCH (07:24)
[2021-01-03] MEDS: glipiZIDE 5 MG TAB PO SCH (07:25)
[2021-01-03] MEDS: hydrALAZINE HCL 25 MG TAB PO SCH (07:25)
[2021-01-03] MEDS: ASCORBIC ACID 500 MG TAB PO SCH (07:25)
[2021-01-03] MEDS: ISOSORBIDE MONONITRATE ER 60 MG TAB.ER.24H PO SCH (07:25)
[2021-01-03] MEDS: amLODIPine 10 MG TAB PO SCH (07:25)
[2021-01-03] MEDS: AZITHROMYCIN 500 MG TAB PO SCH (07:26)
[2021-01-03] MEDS: FOLIC ACID-VIT B COMPLEX-VIT C 1 CAP PO SCH (07:26)
[2021-01-03] MEDS: DULoxetine HCL 20 MG CAPSULE.DR PO SCH (07:26)
--- NOTE | 2021-01-03 08:19 | XR ---
EXAMINATION TYPE: XR chest 1V portable DATE OF EXAM: 01/03/2021 COMPARISON: Chest x-ray 12/31/2020 HISTORY: Dyspnea TECHNIQUE: Single frontal view of the chest is obtained. FINDINGS: There is increased attenuation obscuring the right hemidiaphragm, bandlike areas of increa sed density present at the right lung base as on prior. There is no pneumothorax. The cardiac silhou ette size is stable, borderline enlarged. Right jugular central venous Port-A-Cath is present with t he distal tip in the right atrium. The osseous structures are intact. IMPRESSION: Some minimal patchy basilar atelectasis or scarring, difficult to exclude small effusion versus chronic pleural reaction
[2021-01-03] MEDS: HYDROcodone/APAP 5-325MG 1 EACH TAB PO PRN (09:23)
[2021-01-03 09:41] LABS: Basophils # (A) 0.03 X 10*3/uL (0.00-0.10); Basophils % (A) 0.3 %; Eosinophils # (A) 0.04 X 10*3/uL (0.04-0.35); Eosinophils % (A) 0.4 %; HCT 23.8 % (39.6-50.0); HGB 7.3 g/dL (13.0-17.0); Lymphocytes # (A) 0.56 X 10*3/uL (0.90-5.00); Lymphocytes % (A) 5.7 %; MCH 34.1 pg (27.0-32.0); MCHC 30.7 g/dL (32.0-37.0); MCV 111.2 fL (80.0-97.0); Mean Platelet Volume 10.7 fL (9.5-12.2); Monocytes # (A) 0.69 X 10*3/uL (0.20-1.00); Monocytes % (A) 7.1 %; Neutrophils # (A) 8.38 X 10*3/uL (1.80-7.70); Neutrophils % (A) 86.1 %; Platelet Count 292 X 10*3/uL (140-440); RBC 2.14 X 10*6/uL (4.40-5.60); RDW 16.3 % (11.5-14.5); WBC 9.74 X 10*3/uL (4.50-10.00)
--- NOTE | 2021-01-03 11:00 | ECHOF ---
Referral Reason:chf MEASUREMENTS -------- HEIGHT: 170.2 cm WEIGHT: 86.2 kg BP: 119/60 RVIDd: 2.4 cm (< 3.3) IVSd: 1.7 cm (0.6 - 1.1) LVIDd: 5.2 cm (3.9 - 5.3) LVPWd: 1.0 cm (0.6 - 1.1) IVSs: 1.7 cm LVIDs: 3.8 cm LVPWs: 1.5 cm LAESV Index (A-L): 47.71 ml/m Ao Diam: 3.8 cm (2.0 - 3.7) AV Cusp: 1.7 cm (1.5 - 2.6) LA Diam: 3.0 cm (2.7 - 3.8) MV EXCURSION: 15.271 mm (> 18.000) MV EF SLOPE: 51 mm/s (70 - 150) EPSS: 2.0 cm MV E Ray: 1.43 m/s MV DecT: 363 ms MV A Ray: 1.45 m/s MV E/A Ratio: 0.99 AV maxP.68 mmHg AV meanP.62 mmHg AR PHT: 864 ms RAP: 5.00 mmHg RVSP: 41.67 mmHg FINDINGS -------- This was a technically good study. The left ventricular size is normal. There is mild concentric left ventricular hypertrophy. Overa ll left ventricular systolic function is low-normal with, an EF between 50 - 55 %. Increased LAP Gr alexandru 2 Diastolic Dysfunction. Mid inferior LV wall motion is hypokinetic. The right ventricle is normal in size. LA is severely dilated >40 ml/m2 The right atrial size is normal. Aortic valve is trileaflet and is mildly thickened. There is mild aortic regurgitation. There is mild aortic stenosis present. Peak/mean gradient across the Aortic Valve is 21.68mmHg / 11.62mmHg. The mitral valve is normal. The mitral valve leaflets are mildly thickened. Mild mitral annular c alcification present. Mild mitral regurgitation is present. The peak and mean MV gradients are 1 1.11mmHg 3.88mmHg as measured by doppler. Rynq-le-wxjopstu mitral stenosis. The tricuspid valve appears structurally normal. Mild tricuspid regurgitation present. Right vent ricular systolic pressure is normal at < 35 mmHg. There is mild pulmonary hypertension. The right ventricular systolic pressure, as measured by Doppler, is 41.67mmHg. There is no pulmonic regurgitation present. The aortic root size is normal. Normal inferior vena cava with normal inspiratory collapse consistent with estimated right atrial pre ssure of 5 mmHg. Echo free space may represent effusion or a pericardial fat pad. CONCLUSIONS -------- 1. The left ventricular size is normal. 2. There is mild concentric left ventricular hypertrophy. 3. Overall left ventricular systolic function is low-normal with, an EF between 50 - 55 %. 4. Increased LAP Grade 2 Diastolic Dysfunction. 5. Mid inferior LV wall motion is hypokinetic. 6. LA is severely dilated >40 ml/m2 7. Aortic valve is trileaflet and is mildly thickened. 8. There is mild aortic regurgitation. 9. There is mild aortic stenosis present. 10. Peak/mean gradient across the Aortic Valve is 21.68mmHg / 11.62mmHg. 11. The mitral valve leaflets are mildly thickened. 12. Mild mitral annular calcification present. 13. Mild mitral regurgitation is present. 14. The peak and mean MV gradients are 11.11mmHg 3.88mmHg as measured by doppler. 15. Qngh-lg-qhllhhic mitral stenosis. 16. Mild tricuspid regurgitation present. 17. Right ventricular systolic pressure is normal at < 35 mmHg. 18. There is mild pulmonary hypertension. 19. The right ventricular systolic pressure, as measured by Doppler, is 41.67mmHg. 20. Echo free space may represent effusion or a pericardial fat pad. RN FLOAT: Crystal Martínez RDCS
[2021-01-03 11:46] LABS: Glucose,Whole Blood 125 mg/dL (75-99)
--- NOTE | 2021-01-03 12:39 | P.PN ---
Subjective Progress Note Date: 01/03/21 Principal diagnosis: End-stage renal disease with worsening creatinine She was seen and examined lying in bed undergoing hemodialysis per left upper extremity loop graft. He also underwent hemodialysis therapy yesterday without any difficulty. Yesterday he was scheduled for a tunneled dialysis catheter, but it was deemed that his loop graft was mature and should be able to be accessed therefore a tunneled catheter was canceled. No acute changes through the night. Patient denies any pain in the left upper extremity, other than mild achiness. Objective - Vital Signs Vital signs: Vital Signs Temp 97.4 F L 01/03/21 08:00 Pulse 62 01/03/21 08:00 Resp 18 01/03/21 08:00 BP 150/63 01/03/21 08:00 Pulse Ox 100 01/03/21 08:00 Intake & Output 01/02/21 01/03/21 01/03/21 18:59 06:59 18:59 Intake Total 720 Output Total 2200 Balance -1480 Intake: Oral 720 Output: Hemodialysis 2200 Other: # Voids 2 - Exam General appearance: The patient is alert, oriented, appears in no acute distress. HET: Head is normocephalic and atraumatic. Neck: Supple without lymphadenopathy. Trachea midline. Extremities: Normal skin color and turgor. Bilateral lower extremity edema. Palpable bilateral radial pulse. Left upper extremity with decreased swelling, incision site near occipital Jovon without any drainage or redness. Patient currently undergoing hemodialysis through loop graft. Neurological: No focal deficits. Alert and oriented 3. - Labs CBC & Chem 7: 01/03/21 05:54 01/02/21 06:30 Labs: Abnormal Lab Results - Last 24 Hours (Table) 01/02/21 01/02/21 01/02/21 Range/Units 06:30 06:30 20:42 WBC 10.06 H (4.50-10.00) X 10*3/uL RBC 2.15 L (4.40-5.60) X 10*6/uL Hgb 7.3 L (13.0-17.0) g/dL Hct 24.0 L (39.6-50.0) % MCV 111.6 H (80.0-97.0) fL MCH 34.0 H (27.0-32.0) pg MCHC 30.4 L (32.0-37.0) g/dL RDW 16.4 H (11.5-14.5) % Immature Gran # 0.05 H (0.00-0.04) X 10*3/uL Neutrophils # 8.47 H (1.80-7.70) X 10*3/uL Lymphocytes # 0.84 L (0.90-5.00) X 10*3/uL Chloride 111 H (96-109) mmol/L BUN 63.0 H (9.0-27.0) mg/dL Creatinine 3.7 H (0.6-1.5) mg/dL Est GFR (CKD-EPI)AfAm 18.0 L (60.0-200.0) Est GFR (CKD-EPI)NonAf 15.5 L (60.0-200.0) Glucose 62 L (70-110) mg/dL POC Glucose (mg/dL) 130 H (75-99) mg/dL Calcium 8.2 L (8.7-10.3) mg/dL 01/03/21 Range/Units 07:19 WBC (4.50-10.00) X 10*3/uL RBC (4.40-5.60) X 10*6/uL Hgb (13.0-17.0) g/dL Hct (39.6-50.0) % MCV (80.0-97.0) fL MCH (27.0-32.0) pg MCHC (32.0-37.0) g/dL RDW (11.5-14.5) % Immature Gran # (0.00-0.04) X 10*3/uL Neutrophils # (1.80-7.70) X 10*3/uL Lymphocytes # (0.90-5.00) X 10*3/uL Chloride (96-109) mmol/L BUN (9.0-27.0) mg/dL Creatinine (0.6-1.5) mg/dL Est GFR (CKD-EPI)AfAm (60.0-200.0) Est GFR (CKD-EPI)NonAf (60.0-200.0) Glucose (70-110) mg/dL POC Glucose (mg/dL) 136 H (75-99) mg/dL Calcium (8.7-10.3) mg/dL Assessment and Plan Assessment: 1. End-stage renal disease with worsening creatinine 2. Recent history of left upper extremity AV graft on 12/21/2020 3. Extremity swelling 4. Tremors 5. History of COPD 6. Diabetes mellitus, type II 7. History of coronary artery disease 8. History of peripheral arterial disease status post stenting 9. History of carotid stenosis status post stenting 10. Chronic tobacco dependence Plan: Continue symptomatic and supportive care Continue hemodialysis as ordered per nephrology Left upper extremity graft working well for her hemodialysis, no further vascular surgical intervention indicated Thank you for this consultation, we will sign off at this time. Patient notified to follow-up with Dr. Toth as scheduled. The impression and plan of care has been dictated as directed. Dr. Goddard I performed a history and examination of this patient, discussed the same with the dictator. I agree with the dictator's note ,documented as a scribe. Any additional findings or plans will be noted.
--- NOTE | 2021-01-03 12:56 | PN ---
PROGRESS NOTE Patient is seen for followup for end-stage renal disease. He was started on dialysis this admission. He was dialyzed yesterday from his left forearm AV graft. The patient tolerated his treatment well. He is getting his second treatment today as well. Plans are for home hemodialysis training to start sometime this week. There are plans for discharge today which is okay as patient will be seen for dialysis on Saturday. PHYSICAL EXAMINATION: He is comfortable. Blood pressure 145/65, later on 150/63, heart rate 62 per minute. He is afebrile. EXAMINATION OF THE HEART: S1, S2. EXAMINATION OF THE LUNGS: Bilateral breath sounds are heard. Abdomen is soft, nontender. Examination of lower extremities shows trace edema bilaterally. POT ANNEALER exam grossly intact. LABS: Labs show hemoglobin 7.3 g/dL. Creatinine was 3.7 yesterday. I do not have labs today. Potassium was 4.0. ASSESSMENT: 1. End-stage renal disease started dialysis this admission secondary to underlying uremia and significant tremors, which have now improved post dialysis. Patient is receiving his second treatment today. He can be discharged and follow up as outpatient for training for home hemo on Saturday. 2. Tremors, now improved. 3. Status post recent AV graft placement left forearm, currently being used. 4. Chronic kidney disease mineral bone disorder. 5. Anemia of chronic disease. PLAN: Second treatment of hemodialysis today. Patient can be discharged. He will follow up for training as outpatient. MMYOJANAL / EMILYN: [id number] /
--- NOTE | 2021-01-03 12:57 | P.PN ---
Subjective HISTORY OF PRESENTING ILLNESS This is a pleasant 70-year-old male past medical history significant for coronary artery disease s/p PCI in 04/2020, hypertension, dyslipidemia, chronic kidney disease, type II diabetes, anemia, obstructive sleep apnea, peripheral artery disease with prior stenting of the right SFA and left SFA, bilateral carotid artery disease status post stent placement of the carotid, he has had recurrent pleural effusions. He follows in the office with Dr. Sims. We have been asked to see in consultation for episode of chest pain yesterday. Patient is seen and examined at bedside, no acute distress, sitting up in the b edside chair. Patient presents emergency department for evaluation of tremor for the past week. He endorses some intermittent chest pain. It comes and goes. It only lasts for a few seconds. It is non-exertional, non-radiating. He denies shortness of breath, diaphoresis, nausea, lightheadedness or dizziness, palpitations. EKG with no signs of ischemia or acute changes. Troponin negative x 1. Current home cardiac medications include hydralazine 25 mg 3 times a day, amlodipine 10 mg daily, simvastatin 40 mg daily, metoprolol titrate 25 mg 3 times a day, Imdur 60 mg twice a day, Lasix 80 mg twice a day, Plavix 75 mg nightly, aspirin [address] brain no acute intracranial abnormality Chest xray right pleural effusion and right lower lobe mild infiltrate and atelectasis slightly worse than last exam Echocardiogram 06/2020- EF 45-50%, normal LAP grade 1 diastolic dysfunction, mid to basal inferolateral is hypokinetic, LA is mildly dilated, mild aortic regurgitation, mild aortic stenosis with a peak/mean gradient 17 mmHg/10 mmHg, mild mitral regurgitation, mild to moderate mitral stenosis with a peak/mean gradient of 7 mmHg/2.3 mmHg, mild tricuspid regurgitation. Echocardiogram performed in March 2020 revealing EF 50-55%, mild aortic regurgitation and mild mitral regurgitation. Cardiac catheterization on 04/27/2020 with PCI to the ostial PDA branch of the RCA. 01/03/21: Patient seen and examined at bedside, no acute distress. Patient underwent initiation of dialysis yesterday with 2.2L removed. BP 150/63, heart rate 62, afebrile, maintaining oxygen saturations 100% on 3 L nasal cannula. Laboratory data review WBC 9.7, hemoglobin 7.3, platelets 22, BMP not resulted yet today Chest xray this morning, some patchy bilateral atelectasis Echocardiogram revealed EF 50-55%, increased LAP grade 2 diastolic dysfunction, mid inferior LV wall is hypokinetic, LA severely dilated, mild aortic regurgitation, mild aortic stenosis with a peak/mean gradient 21.6 mmHg/11.6 mmHg, mild mitral regurgitation, mild to moderate mitral stenosis with a peak/mean gradient 11 mmHg/3.8 mmHg, mild tricuspid regurgitation, mild pulmonary hypertension, echo-free space may represent effusion or pericardial fat pad. PHYSICAL EXAMINATION CONSTITUTIONAL: No apparent distress. HEENT: Neck supple No JVD CHEST EXAMINATION: Lungs with bilateral wheezes HEART EXAMINATION: Regular rate and rhythm. S1, S2 heard. Systolic ejection murmur noted at the apex No gallops or rub. ABDOMEN: Soft, nontender. Positive bowel sounds. EXTREMITIES: 2+ peripheral pulses, no lower extremity edema NEUROLOGIC EXAMINATION: Patient is awake, alert and oriented x3. ASSESSMENT Chest pain, atypical, not indicative of acute myocardial injury with no ishemia on EKGs and negative cardiac enzyme Coronary artery disease with recent PCI of ostial PDA branch of the RCA, April 2020 Carotid stenosis with previous right carotid stenting Peripheral arterial disease with previous bilateral revascularization with stents History of recurrent pleural effusions- History of thoracentesis in April and June 2020 with removal of 1300 mL Hypertension Hyperlipidemia Type 2 Diabetes mellitus COPD Tremors Acute on Chronic Kidney disease- Nephrology following. plan for permacath placement. Patient received hemodialysis 01/02 with 2.2L removed PLAN From cardiology perspective, chest pain is atypical, not indicative of acute myocardial injury. Coronary artery disease is stable. Echocardiogram obtained and reviewed. No further testing indicative at this time. We will sign off at this time. Please reach out with any further questions or concerns Patient can follow up outpatient with Dr. Sims Thank you kindly for this consultation Nurse Practitioner note has been reviewed, I agree with a documented findings and plan of care. Patient was seen and examined. Objective - Vital Signs Vital signs: Vital Signs Temp 97.4 F L 01/03/21 08:00 Pulse 62 01/03/21 08:00 Resp 18 01/03/21 08:00 BP 150/63 01/03/21 08:00 Pulse Ox 100 01/03/21 08:00 Intake & Output 01/02/21 01/03/21 01/03/21 18:59 06:59 18:59 Intake Total 720 Output Total 2200 Balance -1480 Intake: Oral 720 Output: Hemodialysis 0 Other: # Voids 2 - Labs CBC & Chem 7: 01/03/21 05:54 01/02/21 06:30 Labs: Abnormal Lab Results - Last 24 Hours (Table) 01/02/21 01/02/21 01/02/21 Range/Units 06:30 06:30 20:42 WBC 10.06 H (4.50-10.00) X 10*3/uL RBC 2.15 L (4.40-5.60) X 10*6/uL Hgb 7.3 L (13.0-17.0) g/dL Hct 24.0 L (39.6-50.0) % MCV 111.6 H (80.0-97.0) fL MCH 34.0 H (27.0-32.0) pg MCHC 30.4 L (32.0-37.0) g/dL RDW 16.4 H (11.5-14.5) % Immature Gran # 0.05 H (0.00-0.04) X 10*3/uL Neutrophils # 8.47 H (1.80-7.70) X 10*3/uL Lymphocytes # 0.84 L (0.90-5.00) X 10*3/uL Chloride 111 H (96-109) mmol/L BUN 63.0 H (9.0-27.0) mg/dL Creatinine 3.7 H (0.6-1.5) mg/dL Est GFR (CKD-EPI)AfAm 18.0 L (60.0-200.0) Est GFR (CKD-EPI)NonAf 15.5 L (60.0-200.0) Glucose 62 L (70-110) mg/dL POC Glucose (mg/dL) 130 H (75-99) mg/dL Calcium 8.2 L (8.7-10.3) mg/dL 01/03/21 01/03/21 Range/Units 05:54 07:19 WBC (4.50-10.00) X 10*3/uL RBC 2.14 L (4.40-5.60) X 10*6/uL Hgb 7.3 L (13.0-17.0) g/dL Hct 23.8 L (39.6-50.0) % MCV 111.2 H (80.0-97.0) fL MCH 34.1 H (27.0-32.0) pg MCHC 30.7 L (32.0-37.0) g/dL RDW 16.3 H (11.5-14.5) % Immature Gran # (0.00-0.04) X 10*3/uL Neutrophils # 8.38 H (1.80-7.70) X 10*3/uL Lymphocytes # 0.56 L (0.90-5.00) X 10*3/uL Chloride (96-109) mmol/L BUN (9.0-27.0) mg/dL Creatinine (0.6-1.5) mg/dL Est GFR (CKD-EPI)AfAm (60.0-200.0) Est GFR (CKD-EPI)NonAf (60.0-200.0) Glucose (70-110) mg/dL POC Glucose (mg/dL) 136 H (75-99) mg/dL Calcium (8.7-10.3) mg/dL
--- NOTE | 2021-01-03 13:19 | P.PN ---
Subjective Progress Note Date: 01/03/21 Principal diagnosis: Chronic right lower lobe changes without evidence of acute pneumonia This is a 70-year-old gentleman who follows with the [facility] as his primary care provider. He has history of coronary artery disease, carotid stenosis with previous right stent placement, right subclavian Mediport placement, bilateral leg revascularizations with stents for peripheral vascular disease, depression/PTSD, diabetes mellitus, hypertension, hyperlipidemia, chronic obstructive pulmonary disease with chronic and ongoing tobacco dependence. He presented to the emergency room yesterday with complaints of uncontrolled tremors and lower extremity pain and discomfort. No shortness of breath, cough or congestion. Computed tomography scan of the brain revealed no acute intracranial abnormality. Chest x-ray did reveal some chronic changes of the right pleural effusion with right lower lobe mild infiltrate/atelectasis. We're consulted for the same. He is seen today in consultation on the regular medical floor. He is currently up ambulating in his room. He is quite tremorous. He also was complaining of nausea and chest pain. He denies any shortness of breath, cough or congestion. No fever, chills or night sweats. He is maintaining O2 saturations in the mid 90s on room air. He's afebrile. Hemodynamically stable. Arterial blood gases revealed a pO2 58, pCO2 40, pH 7.33 on 21% FiO2 White count 9.9. Hemoglobin 7.8. Sodium 139. Potassium 3.7. Creatinine 3.91. Troponin negative 2. ProBNP 5180. Dodson virus not detected. Initiated on antibiotics in the form of ceftriaxone and azithromycin. On 01/02/2021 patient seen in follow-up on medical surgical floor. He is awake and alert, in no acute distress, he is currently on 3 L of oxygen his pulse ox is 97%, no cough, no complaints of chest discomfort. He is supposed to have his first hemodialysis treatment today. His had no fever or chills. No hemoptysis. He remains on Zithromax and Rocephin for possibility of underlying pneumonia although this is felt to be less likely. Today's labs have been reviewed showing white blood cell count of 10.06, hemoglobin of 7.3, sodium is 144, potassium is 4.0, chloride is 111, BUN of 63 creatinine of 3.7 On 01/03/2021 patient seen in follow-up on medical surgical floor. He is resting comfortably in bed, he is on 3 L of oxygen his pulse ox 100%, he is c urrently having hemodialysis treatment, his chest x-ray today shows some minimal patchy basilar atelectasis or scarring and possibility of small pleural effusion. Clinically patient has remained stable, no worsening dyspnea. Today's labs have been reviewed his white blood cell count is 9.7, hemoglobin 7.3, BNP is pending. No fever or chills, no acute events overnight, no worsening dyspnea and hypoxia, remains on azithromycin and Rocephin, had no fever or chills Objective - Vital Signs Vital signs: Vital Signs Temp 97.4 F L 01/03/21 08:00 Pulse 62 01/03/21 08:00 Resp 18 01/03/21 08:00 BP 150/63 01/03/21 08:00 Pulse Ox 100 01/03/21 08:00 Intake & Output 01/02/21 01/03/21 01/03/21 18:59 06:59 18:59 Intake Total 720 Output Total 2200 Balance -1480 Intake: Oral 720 Output: Hemodialysis 2200 Other: # Voids 2 - Exam GENERAL EXAM: Alert, very pleasant, 70-year-old white female, resting in bed, on 3 L of oxygen a pulse ox of 100% comfortable in no apparent distress. HEAD: Normocephalic/atraumatic. EYES: Normal reaction of pupils, equal size. Conjunctiva pink, sclera white. NOSE: Clear with pink turbinates. THROAT: No erythema or exudates. NECK: No masses, no JVD, no thyroid enlargement, no adenopathy. CHEST: No chest wall deformity. Symmetrical expansion. LUNGS: Equal air entry with no crackles, wheeze, rhonchi or dullness. CVS: Regular rate and rhythm, normal S1 and S2, no gallops, no murmurs, no rubs ABDOMEN: Soft, nontender. No hepatosplenomegaly, normal bowel sounds, no guarding or rigidity. EXTREMITIES: No clubbing, no edema, no cyanosis, 2+ pulses and upper and lower extremities. MUSCULOSKELETAL: Muscle strength and tone normal. SPINE: No scoliosis or deformity SKIN: No rashes CENTRAL NERVOUS SYSTEM: Alert and oriented -3. No focal deficits, tone is normal in all 4 extremities. PSYCHIATRIC: Alert and oriented -3. Appropriate affect. Intact judgment and insight. - Labs CBC & Chem 7: 01/03/21 05:54 01/02/21 06:30 Labs: Abnormal Lab Results - Last 24 Hours (Table) 01/02/21 01/03/21 01/03/21 Range/Units 20:42 05:54 07:19 RBC 2.14 L (4.40-5.60) X 10*6/uL Hgb 7.3 L (13.0-17.0) g/dL Hct 23.8 L (39.6-50.0) % MCV 111.2 H (80.0-97.0) fL MCH 34.1 H (27.0-32.0) pg MCHC 30.7 L (32.0-37.0) g/dL RDW 16.3 H (11.5-14.5) % Neutrophils # 8.38 H (1.80-7.70) X 10*3/uL Lymphocytes # 0.56 L (0.90-5.00) X 10*3/uL POC Glucose (mg/dL) 130 H 136 H (75-99) mg/dL 01/03/21 Range/Units 11:44 RBC (4.40-5.60) X 10*6/uL Hgb (13.0-17.0) g/dL Hct (39.6-50.0) % MCV (80.0-97.0) fL MCH (27.0-32.0) pg MCHC (32.0-37.0) g/dL RDW (11.5-14.5) % Neutrophils # (1.80-7.70) X 10*3/uL Lymphocytes # (0.90-5.00) X 10*3/uL POC Glucose (mg/dL) 125 H (75-99) mg/dL Assessment and Plan Plan: Assessment: #1. Chronic right lower lobe changes without evidence of acute pneumonia #2. Tremors and lower extremity pain unclear etiology #3. Atypical chest pain #4. Chronic kidney disease stage V with recent AV fistula of the left forearm #5. History of COPD #6. Chronic tobacco dependence syndrome #7. Diabetes mellitus with diabetic neuropathy #8. Hypertension #9. Hyperlipidemia #10. Peripheral vascular disease with previous bilateral lack revascularization and stent placement #11. Carotid artery stenosis with previous right carotid stent placement #12. History of PTSD and depression #13. Right subclavian MediPort placement Plan: Patient remains stable No worsening dyspnea or hypoxia Weaning FiO2 Today's chest x-ray has been reviewed No acute events overnight From pulmonary perspective patient can be considered for discharge home following his hemodialysis I performed a history & physical examination of the patient and discussed their management with my nurse practitioner, Arelis Mohamud. I reviewed the nurse practitioner's note and agree with the documented findings and plan of care. Lung sounds are positive for diffuse wheezes throughout the lung wing. The findings and the impression was discussed with the patient. I attest to the documentation by the nurse practitioner. Time with Patient: Less than 30
[2021-01-03 13:22] LABS: African American GFR (CKD) 21.4 (60.0-200.0); Anion Gap 8.8 mmol/L (4.00-12.00); BUN/Creat Ratio 14.69 Ratio (12.00-20.00); Calcium 8.1 mg/dL (8.7-10.3); Carbon Dioxide 26.2 mmol/L (21.6-31.8); Non-African American GFR(CKD) 18.5 (60.0-200.0); Potassium 3.8 mmol/L (3.5-5.5)
[2021-01-03] MEDS: ONDANSETRON 4 MG/2 ML VIAL IVP PRN (14:15)
[2021-01-03 14:31] VITALS: BP 150/60; PULSE 61; RESP 20; TEMP 98.2
--- NOTE | 2021-01-03 23:50 | P.DS ---
Providers Date of admission: 01/02/21 08:54 Attending physician: Aida Ndiaye Consults: 12/31/20 17:45 Consult Physician Routine Consulting Provider: Nawaf Gonzalez Consult Reason/Comments: Right sided tremor Do you want consulting provider notified?: Yes 12/31/20 19:37 Consult Physician Routine Consulting Provider: Eduardo French Consult Reason/Comments: new dialysis port/ hasn't started dialysis yet Do you want consulting provider notified?: Yes 12/31/20 21:01 Consult Physician Routine Consulting Provider: Ritchie Orta Consult Reason/Comments: pneumonia/chf Do you want consulting provider notified?: Yes 01/01/21 11:40 Consult Physician Routine Consulting Provider: Donato Goddard Consult Reason/Comments: dialysis catheter Do you want consulting provider notified?: Yes 01/01/21 11:53 Consult Physician Stat Consulting Provider: Burak Dowell Consult Reason/Comments: chest pain and diaphoresis Do you want consulting provider notified?: Yes Primary care physician: [facility] Hospital Course: Diagnoses: Chronic right lower lobe pulmonary changes, unlikely pneumonia per pulmonary team Atypical chest pain, patient was cleared by timber deadener for discharge Chronic kidney disease stage V. Status post left forearm AV fistula and started on new hemodialysis, first HD on 01/02 Lower extremity and upper extremity tremor secondary to metabolic abnormality, improved and cleared by neurologist Bilateral feet pain secondary to diabetic neuropathy, recommend N CVS and EMG as an outpatient Hospital course: This is a pleasant 70 years old male with multiple medical problems presents because of tumor for 1 week and duration associated with generalized weakness and atypical chest pain. Patient with worsening creatinine, patient is station 5 kidney disease and he has left forearm AV fistula and he was started on hemodialysis yesterday and today, nephrology cleared patient for discharge and continue with hemodialysis next Saturday, patient aware of this recommendation and agrees Also patient followed by other consultants including pulmonary, neurology, cardiology. Patient found to have chronic right lung changes. Pneumonia felt less likely however patient was treated with oral antibiotics of Zithromax and ceftriaxone. chest x-ray showed minimal atelectasis. Patient is discharged on a short course of oral antibiotic to finish course of therapy. Patient today symptoms significantly improved, no tremor. No dyspnea or chest pain. No abdominal pain. No nausea vomiting. No diarrhea or dysuria. No fever. Patient was cleared for discharge by pulmonary, cardiology, nephrology and neurology teams. Problems and management plan were discussed with the patient and he verbalized understanding and acceptance Patient was found stable and can be discharged home however he needs follow-up as an outpatient. Patient was instructed to follow up with PCP at the [place] [facility] within one week and patient agrees Patient also was instructed to follow up with Dr. Olson in 2 weeks, car storer Dr. Ivory in one week, neurologist Dr. Novak in one week and timber deadener Dr. Sims in 2 weeks and janet morse agrees with this recommendation and he wants to make his own appointment Physical exam Gen: patient is a AAOx3, no distress CVS: S1-S2, RRR, no murmur Lungs: B/L CTA, no wheezing Abdomen: soft, no distention, no tenderness, positive bowel sounds Extremity: no leg edema or induration Time spent more than 35 minutes Patient Condition at Discharge: Fair Plan - Discharge Summary Discharge Rx Participant: No New Discharge Prescriptions: New Cefuroxime [Ceftin] 250 mg PO BID 3 Days #6 tab Azithromycin [Zithromax] 250 mg PO DAILY 3 Days #3 tab Continue Simvastatin [Zocor] 40 mg PO HS Ergocalciferol (Vitamin D2) [Vitamin D2] 50,000 unit PO Q14D Aspirin EC [Ecotrin Low Dose] 81 mg PO HS Ferrous Sulfate [Iron (65 MG Elemental)] 325 mg PO TID Cyanocobalamin [Vitamin B-12] 1,000 mcg PO DAILY rOPINIRole HCL [Requip] 0.25 mg PO BID glipiZIDE [Glucotrol] 5 mg PO BID calcitrioL [Rocaltrol] 0.5 mcg PO SUWE Omeprazole [PriLOSEC] 20 mg PO HS Clopidogrel [Plavix] 75 mg PO HS Isosorbide Mononitrate ER [Imdur] 60 mg PO BID #60 tab.er.24h Nitroglycerin Sl Tabs [Nitrostat] 0.4 mg SUBLINGUAL Q5M PRN #20 tab PRN Reason: Chest Pain amLODIPine [Norvasc] 10 mg PO DAILY #30 tab hydrALAZINE HCL [Apresoline] 25 mg PO TID Metoprolol Tartrate [Lopressor] 25 mg PO TID DULoxetine HCL [Cymbalta] 20 mg PO DAILY Ascorbic Acid [Vitamin C] 500 mg PO DAILY Melatonin 5 mg PO HS Folic Acid-Vit B Complex-Vit C [Nephrocaps] 1 cap PO DAILY HYDROcodone/APAP 5-325MG [Morris 5-325] 1 tab PO Q4HR PRN 3 Days #18 tab PRN Reason: Pain Sennosides-Docusate Sodium [Senokot-S] 2 tab PO TID PRN PRN Reason: Constipation Changed Insulin Glargine [Lantus] 15 unit SQ HS #0 Discontinued Gabapentin [Neurontin] 200 mg PO BID cap Furosemide [Lasix] 80 mg PO BID Discharge Medication List Ergocalciferol (Vitamin D2) [Vitamin D2] 50,000 unit PO Q14D 07/18/17 [History] Simvastatin [Zocor] 40 mg PO HS 07/18/17 [History] Aspirin EC [Ecotrin Low Dose] 81 mg PO HS 02/10/18 [History] Ferrous Sulfate [Iron (65 MG Elemental)] 325 mg PO TID 02/10/18 [History] Cyanocobalamin [Vitamin B-12] 1,000 mcg PO DAILY 09/23/18 [History] rOPINIRole HCL [Requip] 0.25 mg PO BID 01/09/19 [History] glipiZIDE [Glucotrol] 5 mg PO BID 05/22/19 [History] calcitrioL [Rocaltrol] 0.5 mcg PO SUWE 09/17/19 [History] Omeprazole [PriLOSEC] 20 mg PO HS 09/25/19 [History] Clopidogrel [Plavix] 75 mg PO HS 04/18/20 [History] Isosorbide Mononitrate ER [Imdur] 60 mg PO BID #60 tab.er.24h 04/21/20 [Rx] Nitroglycerin Sl Tabs [Nitrostat] 0.4 mg SUBLINGUAL Q5M PRN #20 tab 04/21/20 [Rx] amLODIPine [Norvasc] 10 mg PO DAILY #30 tab 04/28/20 [Rx] hydrALAZINE HCL [Apresoline] 25 mg PO TID 05/19/20 [History] Metoprolol Tartrate [Lopressor] 25 mg PO TID 07/13/20 [History] DULoxetine HCL [Cymbalta] 20 mg PO DAILY 10/27/20 [History] Ascorbic Acid [Vitamin C] 500 mg PO DAILY 12/19/20 [History] Folic Acid-Vit B Complex-Vit C [Nephrocaps] 1 cap PO DAILY 12/19/20 [History] Melatonin 5 mg PO HS 12/19/20 [History] HYDROcodone/APAP 5-325MG [Morris 5-325] 1 tab PO Q4HR PRN 3 Days #18 tab 12/21/20 [Rx] Sennosides-Docusate Sodium [Senokot-S] 2 tab PO TID PRN 12/31/20 [History] Azithromycin [Zithromax] 250 mg PO DAILY 3 Days #3 tab 01/03/21 [Rx] Cefuroxime [Ceftin] 250 mg PO BID 3 Days #6 tab 01/03/21 [Rx] Insulin Glargine [Lantus] 15 unit SQ HS #0 01/03/21 [Rx] Follow up Appointment(s)/Referral(s): Ritchie Orta MD [STAFF PHYSICIAN] - 2 Weeks (potato chip cooker machine ) Yulissa Ivory MD [STAFF PHYSICIAN] - 1 Week (car storer) [facility] [NON-STAFF] - 01/06/21 8:15 am Shara Novak MD [Medical Doctor] - 1 Week (neurologist , please call to make appointment in 1-2 weeks for your lower extremity tremor We recommend nerve conduction study and EMG for your bilateral feet pain) Garth Sims MD [STAFF PHYSICIAN] - 2 Weeks [facility] [Primary Care Provider] - 1-2 days Activity/Diet/Wound Care/Special Instructions: Chairperson Anesthesiology is working on a chair time for hemodialysis while patient does teaching for in home hemodialysis: heart healthy diet Discharge Disposition: HOME SELF-CARE
[2021-01-12] MEDS ORDERED: ERGOCALCIFEROL 1,250 MCG (50,000 IU) CAPSULE PO SCH (09:00)
== END 2021-01-03 16:43 | disposition home or self-care (01) | DRG 682 ==
LOC: EC 13:50 → 4SSUR 17:45 → OBSVTOIN 01-02 08:54
PROVIDERS: ADMIT Hospitalist; ATTEND Hospitalist
DX: N17.9 Acute kidney failure, unspecified (principal); J18.9 Pneumonia, unspecified organism; G93.41 Metabolic encephalopathy; E87.1 Hypo-osmolality and hyponatremia; E44.1 Mild protein-calorie malnutrition; J44.0 Chronic obstructive pulmonary disease with (acute) lower respiratory infection; E87.2 Acidosis; I13.2 Hypertensive heart and chronic kidney disease with heart failure and with stage 5 chronic kidney disease, or end stage renal disease; N18.6 End stage renal disease; D50.9 Iron deficiency anemia, unspecified; E11.65 Type 2 diabetes mellitus with hyperglycemia; I25.10 Atherosclerotic heart disease of native coronary artery without angina pectoris; K21.9 Gastro-esophageal reflux disease without esophagitis; E78.5 Hyperlipidemia, unspecified; M89.9 Disorder of bone, unspecified; E11.22 Type 2 diabetes mellitus with diabetic chronic kidney disease; Z99.2 Dependence on renal dialysis; E11.40 Type 2 diabetes mellitus with diabetic neuropathy, unspecified; I65.29 Occlusion and stenosis of unspecified carotid artery; M79.89 Other specified soft tissue disorders; Z20.822 Contact with and (suspected) exposure to COVID-19; D63.8 Anemia in other chronic diseases classified elsewhere; I50.9 Heart failure, unspecified; F32.9 Major depressive disorder, single episode, unspecified; E11.51 Type 2 diabetes mellitus with diabetic peripheral angiopathy without gangrene; F17.200 Nicotine dependence, unspecified, uncomplicated; F43.10 Post-traumatic stress disorder, unspecified; I65.23 Occlusion and stenosis of bilateral carotid arteries; G25.81 Restless legs syndrome; G47.33 Obstructive sleep apnea (adult) (pediatric); R09.02 Hypoxemia; Z79.02 Long term (current) use of antithrombotics/antiplatelets; Z79.4 Long term (current) use of insulin; Z79.82 Long term (current) use of aspirin; Z79.899 Other long term (current) drug therapy; Z95.5 Presence of coronary angioplasty implant and graft; Z95.820 Peripheral vascular angioplasty status with implants and grafts
CPT/HCPCS: 36415; 36600; 70450; 71045; 71046; 80048; 80053; 80074; 81001; 82607; 82746; 82805; 83540; 83550; 83880; 84443; 84484; 85025; 85610; 85730; 86706; 87635; 90935; 93005; 93306; 94760; 96374; 96375; 99285

== ENCOUNTER 2021-01-05 11:48 | Inpatient (IN) | payer OTHER, MEDICARE ==
[2021-01-05 12:15] LABS: Glucose,Whole Blood 163 mg/dL (75-99)
--- NOTE | 2021-01-05 12:40 | ED ---
SOB HPI - General Chief Complaint: Shortness of Breath Stated Complaint: KASSANDRA Time Seen by Provider: 01/05/21 12:10 Source: patient, family, RN/MD, RN notes reviewed Mode of arrival: wheelchair Limitations: no limitations - History of Present Illness Initial Comments: A 70-year-old male history of multiple medical issues including a recent starting of dialysis 3 days ago who presents from outpatient with complaints of shortness of breath he was found to be shortness of breath with exertional dyspnea status in the 40s initially up to 70-administration. He was dizzy be having an effusion this morning. He denies any fevers chills apparently this morning chest pain or coughing up any phlegm no palpitations no focal weakness. He did have dialysis 3 days ago with completion 2 days ago. He's been feeling weak since then MD Complaint: shortness of breath - Related Data Home Medications Medication Instructions Recorded Confirmed Ergocalciferol (Vitamin D2) 50,000 unit PO Q14D 07/18/17 01/05/21 [Vitamin D2] Simvastatin [Zocor] 40 mg PO HS 07/18/17 01/05/21 Aspirin EC [Ecotrin Low Dose] 81 mg PO HS 02/10/18 01/05/21 Ferrous Sulfate [Iron (65 MG 325 mg PO TID 02/10/18 01/05/21 Elemental)] Cyanocobalamin [Vitamin B-12] 1,000 mcg PO DAILY 09/23/18 01/05/21 rOPINIRole HCL [Requip] 0.25 mg PO BID 01/09/19 01/05/21 glipiZIDE [Glucotrol] 5 mg PO BID 05/22/19 01/05/21 calcitrioL [Rocaltrol] 0.5 mcg PO SUWE 09/17/19 01/05/21 Omeprazole [PriLOSEC] 20 mg PO HS 09/25/19 01/05/21 Clopidogrel [Plavix] 75 mg PO HS 04/18/20 01/05/21 hydrALAZINE HCL [Apresoline] 25 mg PO TID 05/19/20 01/05/21 Metoprolol Tartrate [Lopressor] 25 mg PO TID 07/13/20 01/05/21 DULoxetine HCL [Cymbalta] 20 mg PO DAILY 10/27/20 01/05/21 Ascorbic Acid [Vitamin C] 500 mg PO DAILY 12/19/20 01/05/21 Folic Acid-Vit B Complex-Vit C 1 cap PO DAILY 12/19/20 01/05/21 [Nephrocaps] Melatonin 5 mg PO HS 12/19/20 01/05/21 Sennosides-Docusate Sodium 2 tab PO TID PRN 12/31/20 01/05/21 [Senokot-S] Azithromycin 250 mg PO DAILY 01/05/21 01/05/21 Cefuroxime Axetil [Ceftin] 250 mg PO BID 01/05/21 01/05/21 Ondansetron HCl [Zofran] 1 tab PO Q8HR PRN 01/05/21 01/05/21 Previous Rx's Medication Instructions Recorded Isosorbide Mononitrate ER [Imdur] 60 mg PO BID #60 tab.er.24h 04/21/20 Nitroglycerin Sl Tabs [Nitrostat] 0.4 mg SUBLINGUAL Q5M PRN #20 tab 04/21/20 amLODIPine [Norvasc] 10 mg PO DAILY #30 tab 04/28/20 HYDROcodone/APAP 5-325MG [[place] 1 tab PO Q4HR PRN 3 Days #18 tab 12/21/20 5-325] Azithromycin [Zithromax] 250 mg PO DAILY 3 Days #3 tab 01/03/21 Cefuroxime [Ceftin] 250 mg PO BID 3 Days #6 tab 01/03/21 Insulin Glargine [Lantus] 15 unit SQ HS #0 01/03/21 Allergies Allergy/AdvReac Type Severity Reaction Status Date / Time Iodinated Contrast Media AdvReac CAN'T Verified 01/05/21 14:03 TAKE, RENAL DISEASE Iodine and Iodide Containing AdvReac CAN'T Verified 01/05/21 14:03 Produc TAKE, RENAL DISEASE Review of Systems ROS Statement: Those systems with pertinent positive or pertinent negative responses have been documented in the HPI. ROS Other: All systems not noted in ROS Statement are negative. Past Medical History Past Medical History: Coronary Artery Disease (CAD), Chest Pain / Angina, COPD, Diabetes Mellitus, GERD/Reflux, GI Bleed, Hyperlipidemia, Hypertension, Pneumonia, Renal Disease, Vascular Disorder Additional Past Medical History / Comment(s): IDDM type II, lower GI bleed, benign colon polyps, spouse states micro bleeds in intestine are suspected, abdominal distention comes and goes which is nearly daily, partial SBO, chronic renal disease stage IV, iron anemia with iron transfusions (recent R upper chest mediport for infusions), PVD, stable lung nodules, chronic low back pain with bilateral sciatica, RLS, vertigo, insomnia, past agent orange exposure. History of Any Multi-Drug Resistant Organisms: None Reported Past Surgical History: Cholecystectomy, Heart Catheterization Additional Past Surgical History / Comment(s): 03/25/20 R sublclavian mediport, R carotid stent done in [place], EGD/colonoscopyDecember 2017, endoscopic capsule, fx lt wrist -sx re-set, aortagram, bilateral leg revascula rizations/stents Past Anesthesia/Blood Transfusion Reactions: No Reported Reaction Additional Past Anesthesia/Blood Transfusion Reaction / Comment(s): Pt has had blood transfusion without reaction. Past Psychological History: Depression, PTSD Smoking Status: Current every day smoker Past Alcohol Use History: None Reported Past Drug Use History: None Reported - Past Family History Father History Unknown: Yes Mother Family Medical History: Cancer Additional Family Medical History / Comment(s): Mother from metastatic cancer pelvic origin. General Exam - General Exam Comments Initial Comments: Is a well-developed well-nourished awake alert oriented times 3 male Limitations: no limitations General appearance: alert, in no apparent distress Head exam: Present: atraumatic, normocephalic, normal inspection Eye exam: Present: normal appearance, PERRL, EOMI. Absent: scleral icterus, conjunctival injection, periorbital swelling ENT exam: Present: mucous membranes dry Neck exam: Present: normal inspection. Absent: tenderness, meningismus, lymphadenopathy Respiratory exam: Present: decreased breath sounds, other (Patient does demonstrate some tachypnea). Absent: respiratory distress, wheezes, rales, rhonchi, stridor Cardiovascular Exam: Present: regular rate, normal rhythm, normal heart sounds. Absent: systolic murmur, diastolic murmur, rubs, gallop, clicks GI/Abdominal exam: Present: soft, normal bowel sounds. Absent: distended, tenderness, guarding, rebound, rigid Extremities exam: Present: normal inspection, full ROM, normal capillary refill. Absent: tenderness, pedal edema, joint swelling, calf tenderness Back exam: Present: normal inspection Neurological exam: Present: alert, oriented X3, CN II-XII intact Psychiatric exam: Present: normal affect, normal mood Skin exam: Present: warm, dry, intact, pallor. Absent: rash Course Vital Signs 01/05/21 01/05/21 01/05/21 11:49 12:04 12:39 Temperature 97.6 F Pulse Rate 76 75 71 Respiratory 32 H 30 H 24 Rate Blood Pressure 159/59 160/68 158/60 O2 Sat by Pulse 100 100 100 Oximetry 01/05/21 01/05/21 13:43 14:09 Temperature Pulse Rate 73 68 Respiratory 14 16 Rate Blood Pressure 160/68 165/77 O2 Sat by Pulse 100 98 Oximetry Medical Decision Making - Medical Decision Making I did discuss Pfizer the patient has . The patient is evidence of increased pulmonary vascular markings and CHF also elevated troponin he will be admitted I did discuss case with Dr. Cedillo is not. Nephrology will be consulted - Lab Data Result diagrams: 01/05/21 12:39 01/05/21 12:39 Lab Results 01/05/21 01/05/21 01/05/21 Range/Units 12:14 12:39 12:39 WBC 11.3 H (3.8-10.6) k/uL RBC 2.82 L (4.30-5.90) m/uL Hgb 9.2 L (13.0-17.5) gm/dL Hct 29.5 L (39.0-53.0) % MCV 104.8 H (80.0-100.0) fL MCH 32.7 (25.0-35.0) pg MCHC 31.2 (31.0-37.0) g/dL RDW 16.8 H (11.5-15.5) % Plt Count 360 (150-450) k/uL MPV 8.5 Neutrophils % 86 % Lymphocytes % 7 % Monocytes % 6 % Eosinophils % 0 % Basophils % 0 % Neutrophils # 9.8 H (1.3-7.7) k/uL Lymphocytes # 0.7 L (1.0-4.8) k/uL Monocytes # 0.6 (0-1.0) k/uL Eosinophils # 0.0 (0-0.7) k/uL Basophils # 0.0 (0-0.2) k/uL Anisocytosis Slight Macrocytosis Moderate PT 10.1 (9.0-12.0) sec INR 0.9 (<1.2) APTT 23.6 (22.0-30.0) sec Sodium (137-145) mmol/L Potassium (3.5-5.1) mmol/L Chloride (98-107) mmol/L Carbon Dioxide (22-30) mmol/L Anion Gap mmol/L BUN (9-20) mg/dL Creatinine (0.66-1.25) mg/dL Est GFR (CKD-EPI)AfAm (>60 ml/min/1.73 sqM) Est GFR (CKD-EPI)NonAf (>60 ml/min/1.73 sqM) Glucose (74-99) mg/dL POC Glucose (mg/dL) 163 H (75-99) mg/dL POC Glu [employer] Arrangement Counselor ID Abby Dela Cruz Plasma Lactic Acid Leobardo (0.7-2.0) mmol/L Calcium (8.4-10.2) mg/dL Magnesium (1.6-2.3) mg/dL Total Bilirubin (0.2-1.3) mg/dL AST (17-59) U/L ALT (4-49) U/L Alkaline Phosphatase (38-126) U/L Creatine Kinase (55-170) U/L Troponin I (0.000-0.034) ng/mL NT-Pro-B Natriuret Pep pg/mL Total Protein (6.3-8.2) g/dL Albumin (3.5-5.0) g/dL TSH (0.465-4.680) mIU/L 01/05/21 01/05/21 01/05/21 Range/Units 12:39 12:39 12:39 WBC (3.8-10.6) k/uL RBC (4.30-5.90) m/uL Hgb (13.0-17.5) gm/dL Hct (39.0-53.0) % MCV (80.0-100.0) fL MCH (25.0-35.0) pg MCHC (31.0-37.0) g/dL RDW (11.5-15.5) % Plt Count (150-450) k/uL MPV Neutrophils % % Lymphocytes % % Monocytes % % Eosinophils % % Basophils % % Neutrophils # (1.3-7.7) k/uL Lymphocytes # (1.0-4.8) k/uL Monocytes # (0-1.0) k/uL Eosinophils # (0-0.7) k/uL Basophils # (0-0.2) k/uL Anisocytosis Macrocytosis PT (9.0-12.0) sec INR (<1.2) APTT (22.0-30.0) sec Sodium 136 L (137-145) mmol/L Potassium 3.8 (3.5-5.1) mmol/L Chloride 101 (98-107) mmol/L Carbon Dioxide 23 (22-30) mmol/L Anion Gap 12 mmol/L BUN 39 H (9-20) mg/dL Creatinine 4.08 H (0.66-1.25) mg/dL Est GFR (CKD-EPI)AfAm 16 (>60 ml/min/1.73 sqM) Est GFR (CKD-EPI)NonAf 14 (>60 ml/min/1.73 sqM) Glucose 140 H (74-99) mg/dL POC Glucose (mg/dL) (75-99) mg/dL POC Glu [employer]eral Pre Arrangement Counselor ID Plasma Lactic Acid Leobardo 1.0 (0.7-2.0) mmol/L Calcium 9.0 (8.4-10.2) mg/dL Magnesium 2.3 (1.6-2.3) mg/dL Total Bilirubin 0.2 (0.2-1.3) mg/dL AST 23 (17-59) U/L ALT 14 (4-49) U/L Alkaline Phosphatase 64 (38-126) U/L Creatine Kinase 77 (55-170) U/L Troponin I 0.014 (0.000-0.034) ng/mL NT-Pro-B Natriuret Pep pg/mL Total Protein 6.0 L (6.3-8.2) g/dL Albumin 3.4 L (3.5-5.0) g/dL TSH 1.650 (0.465-4.680) mIU/L 01/05/21 Range/Units 12:39 WBC (3.8-10.6) k/uL RBC (4.30-5.90) m/uL Hgb (13.0-17.5) gm/dL Hct (39.0-53.0) % MCV (80.0-100.0) fL MCH (25.0-35.0) pg MCHC (31.0-37.0) g/dL RDW (11.5-15.5) % Plt Count (150-450) k/uL MPV Neutrophils % % Lymphocytes % % Monocytes % % Eosinophils % % Basophils % % Neutrophils # (1.3-7.7) k/uL Lymphocytes # (1.0-4.8) k/uL Monocytes # (0-1.0) k/uL Eosinophils # (0-0.7) k/uL Basophils # (0-0.2) k/uL Anisocytosis Macrocytosis PT (9.0-12.0) sec INR (<1.2) APTT (22.0-30.0) sec Sodium (137-145) mmol/L Potassium (3.5-5.1) mmol/L Chloride (98-107) mmol/L Carbon Dioxide (22-30) mmol/L Anion Gap mmol/L BUN (9-20) mg/dL Creatinine (0.66-1.25) mg/dL Est GFR (CKD-EPI)AfAm (>60 ml/min/1.73 sqM) Est GFR (CKD-EPI)NonAf (>60 ml/min/1.73 sqM) Glucose (74-99) mg/dL POC Glucose (mg/dL) (75-99) mg/dL POC Glu Funeral Pre Arrangement Counselor ID Plasma Lactic Acid Leobardo (0.7-2.0) mmol/L Calcium (8.4-10.2) mg/dL Magnesium (1.6-2.3) mg/dL Total Bilirubin (0.2-1.3) mg/dL AST (17-59) U/L ALT (4-49) U/L Alkaline Phosphatase (38-126) U/L Creatine Kinase (55-170) U/L Troponin I (0.000-0.034) ng/mL NT-Pro-B Natriuret Pep 85687 pg/mL Total Protein (6.3-8.2) g/dL Albumin (3.5-5.0) g/dL TSH (0.465-4.680) mIU/L - Radiology Data Radiology results: report reviewed (Imaging reviewed evidence of increased pulmonary vascular markings please see the complete report), image reviewed Disposition Clinical Impression: Elevated troponin, Congestive heart failure, [id number] renal failure, Acute dyspnea Disposition: ADMITTED IP TO THIS HOSP Condition: Fair Referrals: [facility],Clinic [Primary Care Provider] - 1-2 days
[2021-01-05 13:55] LABS: Albumin 3.4 g/dL (3.5-5.0); Magnesium 2.3 mg/dL (1.6-2.3); Potassium 3.8 mmol/L (3.5-5.1); Total Bilirubin 0.2 mg/dL (0.2-1.3)
[2021-01-05 14:18] LABS: Anisocytosis Slight; Basophils % (A) 0 %; Eosinophils % (A) 0 %; HCT 29.5 % (39.0-53.0); HGB 9.2 gm/dL (13.0-17.5); Lymphocytes # (A) 0.7 k/uL (1.0-4.8); Lymphocytes % (A) 7 %; MCH 32.7 pg (25.0-35.0); MCHC 31.2 g/dL (31.0-37.0); MCV 104.8 fL (80.0-100.0); Macrocytosis Moderate; Mean Platelet Volume 8.5; Monocytes # (A) 0.6 k/uL (0-1.0); Monocytes % (A) 6 %; Neutrophils # (A) 9.8 k/uL (1.3-7.7); Neutrophils % (A) 86 %; Platelet Count 360 k/uL (150-450); RBC 2.82 m/uL (4.30-5.90); RDW 16.8 % (11.5-15.5); WBC 11.3 k/uL (3.8-10.6)
--- NOTE | 2021-01-05 14:32 | XR ---
EXAMINATION TYPE: XR chest 2V DATE OF EXAM: 01/05/2021 COMPARISON: Chest x-ray 2 days ago. HISTORY: Difficulty in breathing. TECHNIQUE: Frontal and lateral views of the chest are obtained. FINDINGS: Stable right internal jugular Mediport catheter. Persistent cardiomegaly with mild central vascular congestion and small right pleural effusion with associated compressive atelectasis. Left lung remains clear. The osseous structures are intact. IMPRESSION: As above. No significant change from prior.
[2021-01-05 14:38] LABS: INR 0.9 (<1.2); Partial Thromboplastin Time 23.6 sec (22.0-30.0); Prothrombin Time 10.1 sec (9.0-12.0)
[2021-01-05 15:52] VITALS: TEMP 98.6
[2021-01-05] MEDS ORDERED: SENNOSIDES-DOCUSATE SODIUM 1 EACH TAB PO PRN (15:58)
[2021-01-05] MEDS ORDERED: NITROGLYCERIN SL TABS 0.4 MG TAB SUBLINGUAL PRN (15:58)
[2021-01-05] MEDS ORDERED: ONDANSETRON 4 MG TAB PO PRN (15:58)
[2021-01-05] MEDS ORDERED: HYDROcodone/APAP 5-325MG 1 EACH TAB PO PRN (15:58)
[2021-01-05] MEDS ORDERED: FUROSEMIDE 10 MG/ML 4 ML VIAL IV SCH (16:00)
[2021-01-05] MEDS ORDERED: METOPROLOL TARTRATE 25 MG TAB PO SCH (16:00)
[2021-01-05 16:47] VITALS: BP 157/64; PULSE 82; RESP 17
[2021-01-05] MEDS ORDERED: hydrALAZINE HCL 25 MG TAB PO SCH (17:00)
[2021-01-05] MEDS ORDERED: FERROUS SULFATE 325 MG TAB PO SCH (17:00)
--- NOTE | 2021-01-05 17:09 | P.HPIM ---
History of Present Illness Patient is on a-year-old male came in with complains of shortness of breath on exertion. Patient was recently hospitalized was initiated on hemodialysis was subsequently sent home patient had 2 sessions of hemodialysis before his d ischarge and the patient is Saturday, Saturday, Saturday hemodialysis. She was given breathing treatments. With significant improvement in his respiratory status and patient wanted to go home. Patient the was probably wheezing when he came and patient does have history of COPD patient the chest x-ray showed some infiltrate predominantly in the right lower lobe and there was a concern about pulmonary edema although after reviewing the previous x-rays patient infiltrates significantly improved his bilateral pleural effusions improved patient usually uses to dislodge and patient is presently on 2 L. Patient has hemodialysis scheduled and will undergo hemodialysis tomorrow. Patient doesn't have any fever chills patient doesn't have any pneumonia. Patient probably can be discharged today patient can follow-up for hemodialysis tomorrow. Review of Systems REVIEW OF SYSTEMS: CONSTITUTIONAL: No fever, no malaise, no fatigue. HEENT: No recent visual problems or hearing problems. Denied any sore throat. CARDIOVASCULAR: No chest pain, orthopnea, PND, no palpitations, no syncope. PULMONARY: no hemoptysis. GASTROINTESTINAL: No diarrhea, no nausea, no vomiting, no abdominal pain. NEUROLOGICAL: No headaches, no weakness, no numbness. HEMATOLOGICAL: Denies any bleeding or petechiae. GENITOURINARY: Denies any burning micturition, frequency, or urgency. MUSCULOSKELETAL/RHEUMATOLOGICAL: Denies any joint pain, swelling, or any muscle pain. ENDOCRINE: Denies any polyuria or polydipsia. The rest of the 14-point review of systems is negative. Past Medical History Past Medical History: Coronary Artery Disease (CAD), Chest Pain / Angina, COPD, Diabetes Mellitus, GERD/Reflux, GI Bleed, Hyperlipidemia, Hypertension, Pneumonia, Renal Disease, Vascular Disorder Additional Past Medical History / Comment(s): IDDM type II, lower GI bleed, benign colon polyps, spouse states micro bleeds in intestine are suspected, abdominal distention comes and goes which is nearly daily, partial SBO, chronic renal disease stage IV, iron anemia with iron transfusions (recent R upper chest mediport for infusions), PVD, stable lung nodules, chronic low back pain with bilateral sciatica, RLS, vertigo, insomnia, past agent orange exposure. History of Any Multi-Drug Resistant Organisms: None Reported Past Surgical History: Cholecystectomy, Heart Catheterization Additional Past Surgical History / Comment(s): 03/25/20 R sublclavian mediport, R carotid stent done in [place], EGD/colonoscopyDecember 2016, endoscopic capsule, fx lt wrist -sx re-set, aortagram, bilateral leg revascularizations/stents Past Anesthesia/Blood Transfusion Reactions: No Reported Reaction Additional Past Anesthesia/Blood Transfusion Reaction / Comment(s): Pt has had blood transfusion without reaction. Past Psychological History: Depression, PTSD Smoking Status: Current every day smoker Past Alcohol Use History: None Reported Past Drug Use History: None Reported - Past Family History Father History Unknown: Yes Mother Family Medical History: Cancer Additional Family Medical History / Comment(s): Mother from metastatic cancer pelvic origin. Medications and Allergies Home Medications Medication Instructions Recorded Confirmed Type Ergocalciferol (Vitamin D2) 50,000 unit PO Q14D 07/18/17 01/05/21 History [Vitamin D2] Simvastatin [Zocor] 40 mg PO HS 07/18/17 01/05/21 History Aspirin EC [Ecotrin Low Dose] 81 mg PO HS 02/10/18 01/05/21 History Ferrous Sulfate [Iron (65 MG 325 mg PO TID 02/10/18 01/05/21 History Elemental)] Cyanocobalamin [Vitamin B-12] 1,000 mcg PO DAILY 09/23/18 01/05/21 History rOPINIRole HCL [Requip] 0.25 mg PO BID 01/09/19 01/05/21 History glipiZIDE [Glucotrol] 5 mg PO BID 05/22/19 01/05/21 History calcitrioL [Rocaltrol] 0.5 mcg PO SUWE 09/17/19 01/05/21 History Omeprazole [PriLOSEC] 20 mg PO HS 09/25/19 01/05/21 History Clopidogrel [Plavix] 75 mg PO HS 04/18/20 01/05/21 History Isosorbide Mononitrate ER [Imdur] 60 mg PO BID #60 tab.er.24h 04/21/20 01/05/21 Rx Nitroglycerin Sl Tabs [Nitrostat] 0.4 mg SUBLINGUAL Q5M PRN #20 tab 04/21/20 01/05/21 Rx amLODIPine [Norvasc] 10 mg PO DAILY #30 tab 04/28/20 01/05/21 Rx hydrALAZINE HCL [Apresoline] 25 mg PO TID 05/19/20 01/05/21 History Metoprolol Tartrate [Lopressor] 25 mg PO TID 07/13/20 01/05/21 History DULoxetine HCL [Cymbalta] 20 mg PO DAILY 10/27/20 01/05/21 History Ascorbic Acid [Vitamin C] 500 mg PO DAILY 12/19/20 01/05/21 History Folic Acid-Vit B Complex-Vit C 1 cap PO DAILY 12/19/20 01/05/21 History [Nephrocaps] Melatonin 5 mg PO HS 12/19/20 01/05/21 History HYDROcodone/APAP 5-325MG [[place] 1 tab PO Q4HR PRN 3 Days #18 tab 12/21/20 01/05/21 Rx 5-325] Sennosides-Docusate Sodium 2 tab PO TID PRN 12/31/20 01/05/21 History [Senokot-S] Azithromycin [Zithromax] 250 mg PO DAILY 3 Days #3 tab 01/03/21 01/05/21 Rx Cefuroxime [Ceftin] 250 mg PO BID 3 Days #6 tab 01/03/21 01/05/21 Rx Insulin Glargine [Lantus] 15 unit SQ HS #0 01/03/21 01/05/21 Rx Azithromycin 250 mg PO DAILY 01/05/21 01/05/21 History Cefuroxime Axetil [Ceftin] 250 mg PO BID 01/05/21 01/05/21 History Ondansetron HCl [Zofran] 1 tab PO Q8HR PRN 01/05/21 01/05/21 History Allergies Allergy/AdvReac Type Severity Reaction Status Date / Time Iodinated Contrast Media AdvReac CAN'T Verified 01/05/21 14:03 TAKE, RENAL DISEASE Iodine and Iodide Containing AdvReac CAN'T Verified 01/05/21 14:03 Produc TAKE, RENAL DISEASE Physical Exam Vitals: Vital Signs Temp Pulse Resp BP Pulse Ox 01/05/21 16:11 100 01/05/21 16:10 81 20 124/95 92 L 01/05/21 15:50 98.6 F 72 20 150/89 99 01/05/21 14:09 68 16 165/77 98 01/05/21 13:43 73 14 160/68 100 01/05/21 12:39 71 24 158/60 100 01/05/21 12:04 75 30 H 160/68 100 01/05/21 11:49 97.6 F 76 32 H 159/59 100 Intake and Output 01/05/21 01/05/21 01/05/21 06:59 14:59 22:59 Other: Weight 83.007 kg PHYSICAL EXAMINATION: GENERAL: The patient is alert and oriented x3, not in any acute distress. Well developed, well nourished. HEENT: Pupils are round and equally reacting to light. EOMI. No scleral icterus. No conjunctival pallor. Normocephalic, atraumatic. No pharyngeal erythema. No thyromegaly. CARDIOVASCULAR: S1 and S2 present. No murmurs, rubs, or gallops. PULMONARY: Chest is clear to auscultation, no wheezing or crackles. ABDOMEN: Soft, nontender, nondistended, normoactive bowel sounds. No palpable organomegaly. MUSCULOSKELETAL: No joint swelling or deformity. EXTREMITIES: No cyanosis, clubbing, or pedal edema. NEUROLOGICAL: Gross neurological examination did not reveal any focal deficits. SKIN: No rashes. Results CBC & Chem 7: 01/05/21 12:39 01/05/21 12:39 Labs: Abnormal Lab Results - Last 24 Hours (Table) 01/05/21 01/05/21 01/05/21 Range/Units 12:14 12:39 12:39 WBC 11.3 H (3.8-10.6) k/uL RBC 2.82 L (4.30-5.90) m/uL Hgb 9.2 L (13.0-17.5) gm/dL Hct 29.5 L (39.0-53.0) % MCV 104.8 H (80.0-100.0) fL RDW 16.8 H (11.5-15.5) % Neutrophils # 9.8 H (1.3-7.7) k/uL Lymphocytes # 0.7 L (1.0-4.8) k/uL Sodium 136 L (137-145) mmol/L BUN 39 H (9-20) mg/dL Creatinine 4.08 H (0.66-1.25) mg/dL Glucose 140 H (74-99) mg/dL POC Glucose (mg/dL) 163 H (75-99) mg/dL Total Protein 6.0 L (6.3-8.2) g/dL Albumin 3.4 L (3.5-5.0) g/dL Assessment and Plan Plan: -Short of breath: Most probably secondary to mild COPD exacerbation resolved at this time patient will be discharged today. -Chronic kidney disease stage IV patient was recently initiated on hemodialysis -Coronary artery disease -Diabetic peripheral neuropathy -Gastroesophageal reflux disease and 10-hyponatremic and have an hypertension -Professor disease Patient shortness of breath resolved patient is saturating well on 2 L of oxygen patient probably can be discharged and patient wanted to go home. Patient will follow-up in hemodialysis clinic today in
[2021-01-05] MEDS ORDERED: glipiZIDE 5 MG TAB PO SCH (17:30)
--- NOTE | 2021-01-05 18:03 | P.DS ---
Providers Date of admission: 01/05/21 15:55 Attending physician: Landy Jean Baptiste Consults: 01/05/21 15:54 Consult Physician Routine Consulting Provider: Yulissa Ivory Consult Reason/Comments: Renal failure Do you want consulting provider notified?: Yes Primary care physician: [facility] Hospital Course: Refer to my HPI for further details Patient Condition at Discharge: Fair Plan - Discharge Summary New Discharge Prescriptions: Continue Simvastatin [Zocor] 40 mg PO HS Ergocalciferol (Vitamin D2) [Vitamin D2] 50,000 unit PO Q14D Aspirin EC [Ecotrin Low Dose] 81 mg PO HS Ferrous Sulfate [Iron (65 MG Elemental)] 325 mg PO TID Cyanocobalamin [Vitamin B-12] 1,000 mcg PO DAILY rOPINIRole HCL [Requip] 0.25 mg PO BID glipiZIDE [Glucotrol] 5 mg PO BID calcitrioL [Rocaltrol] 0.5 mcg PO SUWE Omeprazole [PriLOSEC] 20 mg PO HS Clopidogrel [Plavix] 75 mg PO HS Isosorbide Mononitrate ER [Imdur] 60 mg PO BID #60 tab.er.24h Nitroglycerin Sl Tabs [Nitrostat] 0.4 mg SUBLINGUAL Q5M PRN #20 tab PRN Reason: Chest Pain amLODIPine [Norvasc] 10 mg PO DAILY #30 tab hydrALAZINE HCL [Apresoline] 25 mg PO TID Metoprolol Tartrate [Lopressor] 25 mg PO TID DULoxetine HCL [Cymbalta] 20 mg PO DAILY Ascorbic Acid [Vitamin C] 500 mg PO DAILY Melatonin 5 mg PO HS Folic Acid-Vit B Complex-Vit C [Nephrocaps] 1 cap PO DAILY HYDROcodone/APAP 5-325MG [[place] 5-325] 1 tab PO Q4HR PRN 3 Days #18 tab PRN Reason: Pain Sennosides-Docusate Sodium [Senokot-S] 2 tab PO TID PRN PRN Reason: Constipation Cefuroxime [Ceftin] 250 mg PO BID 3 Days #6 tab Azithromycin [Zithromax] 250 mg PO DAILY 3 Days #3 tab Insulin Glargine [Lantus] 15 unit SQ HS #0 Cefuroxime Axetil [Ceftin] 250 mg PO BID Azithromycin 250 mg PO DAILY Ondansetron HCl [Zofran] 1 tab PO Q8HR PRN PRN Reason: Nausea Discharge Medication List Ergocalciferol (Vitamin D2) [Vitamin D2] 50,000 unit PO Q14D 07/18/17 [History] Simvastatin [Zocor] 40 mg PO HS 07/18/17 [History] Aspirin EC [Ecotrin Low Dose] 81 mg PO HS 02/10/18 [History] Ferrous Sulfate [Iron (65 MG Elemental)] 325 mg PO TID 02/10/18 [History] Cyanocobalamin [Vitamin B-12] 1,000 mcg PO DAILY 09/23/18 [History] rOPINIRole HCL [Requip] 0.25 mg PO BID 01/09/19 [History] glipiZIDE [Glucotrol] 5 mg PO BID 05/22/19 [History] calcitrioL [Rocaltrol] 0.5 mcg PO SUWE 09/17/19 [History] Omeprazole [PriLOSEC] 20 mg PO HS 09/25/19 [History] Clopidogrel [Plavix] 75 mg PO HS 04/18/20 [History] Isosorbide Mononitrate ER [Imdur] 60 mg PO BID #60 tab.er.24h 04/21/20 [Rx] Nitroglycerin Sl Tabs [Nitrostat] 0.4 mg SUBLINGUAL Q5M PRN #20 tab 04/21/20 [Rx] amLODIPine [Norvasc] 10 mg PO DAILY #30 tab 04/28/20 [Rx] hydrALAZINE HCL [Apresoline] 25 mg PO TID 05/19/20 [History] Metoprolol Tartrate [Lopressor] 25 mg PO TID 07/13/20 [History] DULoxetine HCL [Cymbalta] 20 mg PO DAILY 10/27/20 [History] Ascorbic Acid [Vitamin C] 500 mg PO DAILY 12/19/20 [History] Folic Acid-Vit B Complex-Vit C [Nephrocaps] 1 cap PO DAILY 12/19/20 [History] Melatonin 5 mg PO HS 12/19/20 [History] HYDROcodone/APAP 5-325MG [[place] 5-325] 1 tab PO Q4HR PRN 3 Days #18 tab 12/21/20 [Rx] Sennosides-Docusate Sodium [Senokot-S] 2 tab PO TID PRN 12/31/20 [History] Azithromycin [Zithromax] 250 mg PO DAILY 3 Days #3 tab 01/03/21 [Rx] Cefuroxime [Ceftin] 250 mg PO BID 3 Days #6 tab 01/03/21 [Rx] Insulin Glargine [Lantus] 15 unit SQ HS #0 01/03/21 [Rx] Azithromycin 250 mg PO DAILY 01/05/21 [History] Cefuroxime Axetil [Ceftin] 250 mg PO BID 01/05/21 [History] Ondansetron HCl [Zofran] 1 tab PO Q8HR PRN 01/05/21 [History] Follow up Appointment(s)/Referral(s): [facility],Clinic [Primary Care Provider] - 1-2 days Discharge Disposition: HOME SELF-CARE
[2021-01-05] MEDS ORDERED: CLOPIDOGREL 75 MG TAB PO SCH (21:00)
[2021-01-05] MEDS ORDERED: ASPIRIN 81 MG PO SCH (21:00)
[2021-01-05] MEDS ORDERED: PANTOPRAZOLE 40 MG TABLET PO SCH (21:00)
[2021-01-05] MEDS ORDERED: CEFDINIR 300 MG CAP PO SCH (21:00)
[2021-01-05] MEDS ORDERED: ATORVASTATIN 20 MG TAB PO SCH (21:00)
[2021-01-05] MEDS ORDERED: MELATONIN 5 MG TABLET PO SCH (21:00)
[2021-01-05] MEDS ORDERED: ISOSORBIDE MONONITRATE ER 60 MG TAB.ER.24H PO SCH (21:00)
[2021-01-05] MEDS ORDERED: INSULIN DETEMIR (LEVEMIR) 100 UNIT/ML SYR SQ SCH (21:00)
[2021-01-06] MEDS ORDERED: CYANOCOBALAMIN 500 MCG TAB PO SCH (09:00)
[2021-01-06] MEDS ORDERED: DULoxetine HCL 20 MG CAPSULE.DR PO SCH (09:00)
[2021-01-06] MEDS ORDERED: ASCORBIC ACID 500 MG TAB PO SCH (09:00)
[2021-01-06] MEDS ORDERED: FOLIC ACID-VIT B COMPLEX-VIT C 1 CAP PO SCH (09:00)
[2021-01-06] MEDS ORDERED: AZITHROMYCIN 250 MG TAB PO SCH (09:00)
[2021-01-06] MEDS ORDERED: amLODIPine 10 MG TAB PO SCH (09:00)
[2021-01-11] MEDS ORDERED: ERGOCALCIFEROL 1,250 MCG (50,000 IU) CAPSULE PO SCH (09:00)
== END 2021-01-05 17:40 | disposition home or self-care (01) | DRG 191 ==
LOC: EC 11:48 → 3SCARD 15:55
PROVIDERS: ADMIT Internal Medicine; ATTEND Internal Medicine
DX: J44.1 Chronic obstructive pulmonary disease with (acute) exacerbation (principal); N18.4 Chronic kidney disease, stage 4 (severe); I13.0 Hypertensive heart and chronic kidney disease with heart failure and stage 1 through stage 4 chronic kidney disease, or unspecified chronic kidney disease; E87.1 Hypo-osmolality and hyponatremia; N17.9 Acute kidney failure, unspecified; E11.22 Type 2 diabetes mellitus with diabetic chronic kidney disease; E11.42 Type 2 diabetes mellitus with diabetic polyneuropathy; E11.51 Type 2 diabetes mellitus with diabetic peripheral angiopathy without gangrene; Z99.2 Dependence on renal dialysis; Z79.4 Long term (current) use of insulin; I50.9 Heart failure, unspecified; E78.5 Hyperlipidemia, unspecified; I25.10 Atherosclerotic heart disease of native coronary artery without angina pectoris; K21.9 Gastro-esophageal reflux disease without esophagitis; G89.29 Other chronic pain; M54.42 Lumbago with sciatica, left side; M54.41 Lumbago with sciatica, right side; G25.81 Restless legs syndrome; F32.9 Major depressive disorder, single episode, unspecified; F43.10 Post-traumatic stress disorder, unspecified; G47.00 Insomnia, unspecified; R91.8 Other nonspecific abnormal finding of lung field; F17.200 Nicotine dependence, unspecified, uncomplicated; Z79.02 Long term (current) use of antithrombotics/antiplatelets; Z79.82 Long term (current) use of aspirin; Z79.899 Other long term (current) drug therapy; Z77.098 Contact with and (suspected) exposure to other hazardous, chiefly nonmedicinal, chemicals; Z87.19 Personal history of other diseases of the digestive system; Z87.01 Personal history of pneumonia (recurrent); Z90.49 Acquired absence of other specified parts of digestive tract; Z95.828 Presence of other vascular implants and grafts; Z87.81 Personal history of (healed) traumatic fracture; Z91.041 Radiographic dye allergy status; Z80.9 Family history of malignant neoplasm, unspecified
CPT/HCPCS: 36415; 71046; 80053; 82550; 83605; 83735; 83880; 84443; 84484; 85025; 85610; 85730; 93005; 99285

== ENCOUNTER 2021-01-23 02:48 | Observation (INO) | payer OTHER, MEDICARE ==
--- NOTE | 2021-01-23 02:55 | ED ---
Fall HPI - General Stated Complaint: Fall Time Seen by Provider: 01/23/21 02:54 Source: RN notes reviewed, old records reviewed Mode of arrival: ambulatory Limitations: no limitations - History of Present Illness Initial Comments: This is a 70-year-old male DF for evaluation patient Dese for evaluation of fall. Fall with weakness fall with hitting his face hitting his head and bleeding from his nose. Patient presents by EMS after fall. Does occasionally complains of chest pain some weakness lightheadedness and dizziness. Patient denies current headache. Denies recent nausea vomiting diarrhea or any other complaints. No recent fevers. 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: yes, by family Place Fall Occurred: home Loss of Consciousness: none Prolonged Down Time?: no Symptoms Prior to Fall: none Location: face Severity: moderate Context: tripped/slipped Associated Symptoms: denies - Related Data Home Medications Medication Instructions Recorded Confirmed Ergocalciferol (Vitamin D2) 50,000 unit PO Q14D 07/18/17 01/23/21 [Vitamin D2] Simvastatin [Zocor] 40 mg PO HS 07/18/17 01/23/21 Aspirin EC [Ecotrin Low Dose] 81 mg PO HS 02/10/18 01/23/21 Ferrous Sulfate [Iron (65 MG 325 mg PO TID 02/10/18 01/23/21 Elemental)] Cyanocobalamin [Vitamin B-12] 1,000 mcg PO DAILY 09/23/18 01/23/21 glipiZIDE [Glucotrol] 5 mg PO BID 05/22/19 01/23/21 calcitrioL [Rocaltrol] 0.5 mcg PO SUWE 09/17/19 01/23/21 Omeprazole [PriLOSEC] 20 mg PO HS 09/25/19 01/23/21 Clopidogrel [Plavix] 75 mg PO HS 04/18/20 01/23/21 hydrALAZINE HCL [Apresoline] 25 mg PO TID 05/19/20 01/23/21 Metoprolol Tartrate [Lopressor] 25 mg PO TID 07/13/20 01/23/21 DULoxetine HCL [Cymbalta] 20 mg PO DAILY 10/27/20 01/23/21 Ascorbic Acid [Vitamin C] 500 mg PO DAILY 12/19/20 01/23/21 Folic Acid-Vit B Complex-Vit C 1 cap PO DAILY 12/19/20 01/23/21 [Nephrocaps] Melatonin 5 mg PO HS 12/19/20 01/23/21 Sennosides-Docusate Sodium 2 tab PO TID PRN 12/31/20 01/23/21 [Senokot-S] Darbepoetin Joel [Aranesp] 60 mcg IV Q7D 01/23/21 01/23/21 Furosemide [Lasix] 80 mg PO DAILY 01/23/21 01/23/21 Gabapentin [Neurontin] 100 mg PO TID 01/23/21 01/23/21 Loratadine 10 mg PO DAILY 01/23/21 01/23/21 Nitroglycerin Sl Tabs [Nitrostat] 0.4 mg SL Q5M PRN 01/23/21 01/23/21 Sodium Bicarbonate Tab 650 mg PO BID 01/23/21 01/23/21 rOPINIRole HCL [Requip] 0.5 mg PO BID 01/23/21 01/23/21 Previous Rx's Medication Instructions Recorded Isosorbide Mononitrate ER [Imdur] 60 mg PO BID #60 tab.er.24h 04/21/20 amLODIPine [Norvasc] 10 mg PO DAILY #30 tab 04/28/20 Insulin Glargine [Lantus] 15 unit SQ HS #0 01/03/21 Allergies Allergy/AdvReac Type Severity Reaction Status Date / Time Iodinated Contrast Media AdvReac CAN'T Verified 01/23/21 09:29 TAKE, RENAL DISEASE Iodine and Iodide Containing AdvReac CAN'T Verified 01/23/21 09:29 Produc TAKE, RENAL DISEASE Review of Systems ROS Statement: Those systems with pertinent positive or pertinent negative responses have been documented in the HPI. ROS Other: All systems not noted in ROS Statement are negative. Past Medical History Past Medical History: Coronary Artery Disease (CAD), Chest Pain / Angina, COPD, Diabetes Mellitus, GERD/Reflux, GI Bleed, Hyperlipidemia, Hypertension, P neumonia, Renal Disease, Vascular Disorder Additional Past Medical History / Comment(s): IDDM type II, lower GI bleed, benign colon polyps, spouse states micro bleeds in intestine are suspected, abdominal distention comes and goes which is nearly daily, partial SBO, chronic renal disease stage IV, iron anemia with iron transfusions (recent R upper chest mediport for infusions), PVD, stable lung nodules, chronic low back pain with bilateral sciatica, RLS, vertigo, insomnia, past agent orange exposure. History of Any Multi-Drug Resistant Organisms: None Reported Past Surgical History: Cholecystectomy, Heart Catheterization Additional Past Surgical History / Comment(s): 03/25/20 R sublclavian mediport, R carotid stent done in [place], EGD/colonoscopyDecember 2016, endoscopic capsule, fx lt wrist -sx re-set, aortagram, bilateral leg revascularizations/stents Past Anesthesia/Blood Transfusion Reactions: No Reported Reaction Additional Past Anesthesia/Blood Transfusion Reaction / Comment(s): Pt has had blood transfusion without reaction. Past Psychological History: Depression, PTSD Smoking Status: Current every day smoker Past Alcohol Use History: None Reported Past Drug Use History: None Reported - Past Family History Father History Unknown: Yes Mother Family Medical History: Cancer Additional Family Medical History / Comment(s): Mother from metastatic cancer pelvic origin. General Exam General appearance: alert, in no apparent distress Head exam: Present: normocephalic, normal inspection. Absent: atraumatic (Patient does have nasal swelling and bleeding from naris) Eye exam: Present: normal appearance, PERRL, EOMI. Absent: scleral icterus, conjunctival injection, periorbital swelling ENT exam: Present: normal exam, mucous membranes moist Neck exam: Present: normal inspection. Absent: tenderness, meningismus, lymphadenopathy Respiratory exam: Present: normal lung sounds bilaterally. Absent: respiratory distress, wheezes, rales, rhonchi, stridor Cardiovascular Exam: Present: regular rate, normal rhythm, normal heart sounds. Absent: systolic murmur, diastolic murmur, rubs, gallop, clicks GI/Abdominal exam: Present: soft, normal bowel sounds. Absent: distended, tenderness, guarding, rebound, rigid Extremities exam: Present: normal inspection, full ROM, normal capillary refill. Absent: tenderness, pedal edema, joint swelling, calf tenderness Back exam: Present: normal inspection Neurological exam: Present: alert, oriented X3, CN II-XII intact Psychiatric exam: Present: normal affect, normal mood Skin exam: Present: warm, dry, intact, normal color. Absent: rash Course Vital Signs 01/23/21 01/23/21 01/23/21 02:54 03:24 03:51 Temperature 97.9 F Pulse Rate 63 53 L 62 Respiratory 16 16 18 Rate Blood Pressure 133/56 136/55 136/66 O2 Sat by Pulse 94 L 98 98 Oximetry 01/23/21 01/23/21 01/23/21 04:40 06:26 07:44 Temperature Pulse Rate 85 78 71 Respiratory 18 18 16 Rate Blood Pressure 137/63 146/67 148/62 O2 Sat by Pulse 95 99 98 Oximetry 01/23/21 01/23/21 01/23/21 11:59 13:50 13:55 Temperature 97.7 F 97.6 F 97.6 F Pulse Rate 87 70 76 Respiratory 16 18 16 Rate Blood Pressure 129/59 131/54 O2 Sat by Pulse 97 99 Oximetry 01/23/21 01/23/21 01/23/21 14:05 14:35 15:54 Temperature 97.7 F 97.6 F 97.7 F Pulse Rate 50 L 73 71 Respiratory 16 16 16 Rate Blood Pressure 144/59 155/61 155/61 O2 Sat by Pulse 98 98 99 Oximetry 01/23/21 01/23/21 15:56 22:00 Temperature 97.7 F 98.1 F Pulse Rate 71 78 Respiratory 16 18 Rate Blood Pressure 155/61 150/65 O2 Sat by Pulse 99 96 Oximetry - Reevaluation(s) Reevaluation #1: Medical record is reviewed Patient symptoms are improved here in the ER Patient does have occasional chest pain throughout ER stay Spoke patient and family regarding results questions answered Medical Decision Making - Medical Decision Making 70 male DF for evaluation patient is having chest pain with anemia he had of dizziness and mechanical related fall secondary to weakness prior to arrival withsignificant somatic injury. Patient will be admitted - Lab Data Result diagrams: 01/23/21 03:04 01/23/21 03:04 Lab Results 01/23/21 01/23/21 01/23/21 Range/Units 02:52 03:04 03:04 WBC 10.8 H (3.8-10.6) k/uL RBC 2.20 L (4.30-5.90) m/uL Hgb 7.1 L D (13.0-17.5) gm/dL Hct 22.3 L (39.0-53.0) % MCV 101.7 H (80.0-100.0) fL MCH 32.5 (25.0-35.0) pg MCHC 31.9 (31.0-37.0) g/dL RDW 15.6 H (11.5-15.5) % Plt Count 304 (150-450) k/uL MPV 8.1 Neutrophils % 89 % Lymphocytes % 5 % Monocytes % 4 % Eosinophils % 1 % Basophils % 0 % Neutrophils # 9.5 H (1.3-7.7) k/uL Lymphocytes # 0.6 L (1.0-4.8) k/uL Monocytes # 0.4 (0-1.0) k/uL Eosinophils # 0.1 (0-0.7) k/uL Basophils # 0.0 (0-0.2) k/uL Macrocytosis Slight PT 9.5 (9.0-12.0) sec INR 0.9 (<1.2) APTT 22.3 (22.0-30.0) sec Sodium (137-145) mmol/L Potassium (3.5-5.1) mmol/L Chloride (98-107) mmol/L Carbon Dioxide (22-30) mmol/L Anion Gap mmol/L BUN (9-20) mg/dL Creatinine (0.66-1.25) mg/dL Est GFR (CKD-EPI)AfAm (>60 ml/min/1.73 sqM) Est GFR (CKD-EPI)NonAf (>60 ml/min/1.73 sqM) Glucose (74-99) mg/dL POC Glucose (mg/dL) 441 H (75-99) mg/dL POC Glu Chief Of Staff ID Jayde Emma Calcium (8.4-10.2) mg/dL Phosphorus (2.5-4.5) mg/dL Magnesium (1.6-2.3) mg/dL Total Bilirubin (0.2-1.3) mg/dL AST (17-59) U/L ALT (4-49) U/L Alkaline Phosphatase (38-126) U/L Troponin I (0.000-0.034) ng/mL Total Protein (6.3-8.2) g/dL Albumin (3.5-5.0) g/dL 01/23/21 01/23/21 Range/Units 03:04 03:04 WBC (3.8-10.6) k/uL RBC (4.30-5.90) m/uL Hgb (13.0-17.5) gm/dL Hct (39.0-53.0) % MCV (80.0-100.0) fL MCH (25.0-35.0) pg MCHC (31.0-37.0) g/dL RDW (11.5-15.5) % Plt Count (150-450) k/uL MPV Neutrophils % % Lymphocytes % % Monocytes % % Eosinophils % % Basophils % % Neutrophils # (1.3-7.7) k/uL Lymphocytes # (1.0-4.8) k/uL Monocytes # (0-1.0) k/uL Eosinophils # (0-0.7) k/uL Basophils # (0-0.2) k/uL Macrocytosis PT (9.0-12.0) sec INR (<1.2) APTT (22.0-30.0) sec Sodium 133 L (137-145) mmol/L Potassium 3.8 (3.5-5.1) mmol/L Chloride 94 L (98-107) mmol/L Carbon Dioxide 28 (22-30) mmol/L Anion Gap 11 mmol/L BUN 67 H (9-20) mg/dL Creatinine 4.12 H (0.66-1.25) mg/dL Est GFR (CKD-EPI)AfAm 16 (>60 ml/min/1.73 sqM) Est GFR (CKD-EPI)NonAf 14 (>60 ml/min/1.73 sqM) Glucose 371 H (74-99) mg/dL POC Glucose (mg/dL) (75-99) mg/dL POC Glu Chief Of Staff ID Calcium 8.7 (8.4-10.2) mg/dL Phosphorus 5.2 H (2.5-4.5) mg/dL Magnesium 2.2 (1.6-2.3) mg/dL Total Bilirubin 0.2 (0.2-1.3) mg/dL AST 29 (17-59) U/L ALT 13 (4-49) U/L Alkaline Phosphatase 92 (38-126) U/L Troponin I <0.012 (0.000-0.034) ng/mL Total Protein 5.5 L (6.3-8.2) g/dL Albumin 3.0 L (3.5-5.0) g/dL - EKG Data -: EKG Interpreted by Me (EKG is sinus rhythm 69 OK 166 QRS 100 QTc 495) - Radiology Data Radiology results: report reviewed (CT brain C-spine and facial bones, chest x- ray negative for traumatic injury), image reviewed Disposition Clinical Impression: Fall, Pre-syncope, Acute blood loss anemia, Anemia, MICHELLE (acute kidney injury), CKD (chronic kidney disease), stage III Disposition: ADMITTED IP TO THIS HOSP Condition: Fair Is patient prescribed a controlled substance at d/c from ED?: No
[2021-01-23] MEDS ORDERED: SODIUM CHLORIDE 0.9% 1,000 ML IV STA (03:01)
[2021-01-23 03:10] LABS: Glucose,Whole Blood 441 mg/dL (75-99)
[2021-01-23 03:15] LABS: Basophils % (A) 0 %; Eosinophils # (A) 0.1 k/uL (0-0.7); Eosinophils % (A) 1 %; HCT 22.3 % (39.0-53.0); Lymphocytes # (A) 0.6 k/uL (1.0-4.8); Lymphocytes % (A) 5 %; MCH 32.5 pg (25.0-35.0); MCHC 31.9 g/dL (31.0-37.0); MCV 101.7 fL (80.0-100.0); Macrocytosis Slight; Mean Platelet Volume 8.1; Monocytes # (A) 0.4 k/uL (0-1.0); Monocytes % (A) 4 %; Neutrophils # (A) 9.5 k/uL (1.3-7.7); Neutrophils % (A) 89 %; Platelet Count 304 k/uL (150-450); RDW 15.6 % (11.5-15.5); WBC 10.8 k/uL (3.8-10.6)
[2021-01-23 03:20] LABS: HGB 7.1 gm/dL (13.0-17.5)
--- NOTE | 2021-01-23 03:26 | XR ---
EXAM: XR Chest, 1 View CLINICAL HISTORY: ITS.REASON XR Reason: Weakness TECHNIQUE: Frontal view of the chest. COMPARISON: January 05, 2021. FINDINGS: There is stable appearance of the right lung base which is increased in density in mildly rounded. This may represent a persistent small right pleural effusion and underlying atelectasis, though a pleural and parenchymal scarring is also possible. The left chest remains clear. A right-sided infusion port and catheter are stable. IMPRESSION: No significant interval change as above.
[2021-01-23 03:28] LABS: Calcium 8.7 mg/dL (8.4-10.2); Magnesium 2.2 mg/dL (1.6-2.3); Phosphorus 5.2 mg/dL (2.5-4.5); Potassium 3.8 mmol/L (3.5-5.1); Total Bilirubin 0.2 mg/dL (0.2-1.3); Total Protein 5.5 g/dL (6.3-8.2)
--- NOTE | 2021-01-23 03:42 | CT ---
EXAMINATION TYPE: CT brain cspine wo con DATE OF EXAM: 01/23/2021 COMPARISON: CT brain 12/31/2020 HISTORY: fall CT DLP: 407.2 mGycm Automated exposure control for dose reduction was used. There is cerebral atrophy. There is no mass effect nor midline shift. There is no sign of intracrania l hemorrhage. The calvarium is intact. There is some mucosal thickening in the ethmoid and maxillary and sphenoid sinuses. There is increased density in the nasopharynx that could be blood clot and debris. Cervical vertebra have normal alignment. There is degenerative hypertrophic disc changes at multiple levels of the cervical spine. The facet joints are intact. There is no evidence of a fracture. Prever tebral soft tissues are intact. IMPRESSION cerebral atrophy. No acute intracranial abnormality. Sinusitis. Spondylotic changes in the cervical spine. No fracture seen. Brain unchanged compared to old exam. Nasopharyngeal density consistent with blood clot and debris.
--- NOTE | 2021-01-23 03:47 | CT ---
EXAMINATION TYPE: CT facial bones wo con DATE OF EXAM: 01/23/2021 COMPARISON: None HISTORY: fall CT DLP: 799.20 mGycm Automated exposure control for dose reduction was used. Images obtained from the bottom of the mandible to the top of the frontal sinuses without contrast. The mandibular ring is intact. Temporomandibular joints appear intact. Mandibular condyles are anteri or with the mouth open. There is mucosal thickening in small fluid levels in the maxillary sinuses. There is no evidence of a blowout fracture. I see no definite nasal bone fracture. Orbital margins are intact. There is no kirsten dence of retro-orbital mass. There is some mucosal thickening in the ethmoid and sphenoid sinuses. Th ere is increased density with significant opacification of the nasopharynx. There is some debris in the right side external auditory canal. There is normal aeration of the epity mpanic recess bilaterally. There is normal aeration of the mastoid air cells. I see no bony destructi ve process. IMPRESSION: Sinusitis. Increased density in the nasopharynx consistent with blood clot and debris. No fracture se en.
[2021-01-23 03:53] LABS: INR 0.9 (<1.2); Partial Thromboplastin Time 22.3 sec (22.0-30.0); Prothrombin Time 9.5 sec (9.0-12.0)
[2021-01-23] MEDS ORDERED: NALOXONE 0.4 MG/ML 1 ML VIAL IV PRN (03:56)
[2021-01-23] MEDS: MORPHINE SULFATE 4 MG/ML SYRINGE IV PRN (04:41)
[2021-01-23] MEDS ORDERED: SENNOSIDES-DOCUSATE SODIUM 1 EACH TAB PO PRN (10:24)
[2021-01-23] MEDS ORDERED: ERGOCALCIFEROL 1,250 MCG (50,000 IU) CAPSULE PO SCH (10:30)
[2021-01-23] MEDS ORDERED: DARBEPOETIN ALFA 60 MCG/0.3 ML SYRINGE IV SCH (11:00)
[2021-01-23 12:02] LABS: Glucose,Whole Blood 284 mg/dL (75-99)
[2021-01-23] MEDS: amLODIPine 10 MG TAB PO SCH (12:10)
[2021-01-23] MEDS: CYANOCOBALAMIN 500 MCG TAB PO SCH (12:10)
[2021-01-23] MEDS: INSULIN ASPART (NovoLOG) 100 UNIT/ML VIAL SQ SCH ×3 (12:11→21:50)
[2021-01-23 12:54] LABS: Appearance,Urine Clear (Clear); Bilirubin,Urine Negative (Negative); Blood,Urine Negative (Negative); Color,Urine Yellow; Glucose,Urine (UA) 4+ (Negative); Ketones,Urine Negative (Negative); Leukocyte Esterase,Urine Negative (Negative); Nitrite,Urine Negative (Negative); Protein,Urine 2+ (Negative); RBC,Urine <1 /hpf (0-5); Specific Gravity,Urine 1.013 (1.001-1.035); Urobilinogen,Urine <2.0 mg/dL (<2.0); WBC,Urine 1 /hpf (0-5)
[2021-01-23] MEDS: FOLIC ACID-VIT B COMPLEX-VIT C 1 CAP PO SCH (13:11)
--- NOTE | 2021-01-23 16:14 | CONS ---
CONSULTATION REASON FOR CONSULT: End-stage renal disease. HISTORY OF PRESENT ILLNESS: The patient is a 70-year-old male with end-stage renal disease, being trained for home hemodialysis. He was admitted to the hospital with a history of fall. The patient is not able to give me a detailed history. His has been helping him with training for the home hemodialysis and has been doing pretty good. There have not been any issues with low blood pressure. The patient currently denies any chest pains or shortness of breath. He denies any nausea, vomiting, or abdominal pain. The patient is currently lying in bed. He is comfortable. He nods to simple questions. He is sleepy but easily arousable. He had a head and face CT scan done on admission, which does not show any fractures. Patient's blood pressure has been around 130-140 mmHg systolic. PAST MEDICAL HISTORY: End-stage renal disease, anemia of chronic disease, CKD mineral bone disorder, coronary artery disease, COPD, type 2 diabetes, hyperlipidemia, hypertension, history of pneumonia, gastroesophageal reflux disease, history of colonic polyps and GI bleed, partial bowel obstruction, peripheral vascular disease, chronic back pain, sciatica, insomnia, vertigo, Agent [place] exposure. PAST SURGICAL HISTORY: Cholecystectomy, cardiac catheterization, right carotid stent placement, EGD, colonoscopy, AV graft, left arm. SOCIAL HISTORY: Patient is a current everyday smoker. No history of drug abuse or alcohol abuse. MEDICATIONS: Medications prior to admission included vitamin D2, Zocor, aspirin, iron, Requip, Glucotrol, Rocaltrol, Prilosec, Plavix, hydralazine, Lopressor, Cymbalta, vitamin C, melatonin, Senokot, Ceftin, Zofran, Imdur, Nitrostat, Loiza, Norvasc, Zithromax, insulin. ALLERGIES: IV CONTRAST. REVIEW OF SYSTEMS: As per HPI. Rest of the systems are negative. EXAMINATION: Currently comfortable, sleeping but arousable. Blood pressure 129/59, heart rate 87 per minute. He is afebrile. Examination of the heart S1, S2. Examination of the lungs, bilateral breath sounds are heard. Abdomen is soft, nontender. Examination of lower extremities shows no evidence of edema. The patient has evidence off bruising on the face. He has a cut in his nose. EMPLOYEE RELATIONS ASSISTANT exam grossly intact. LAB: Show sodium 133, potassium 3.8, chloride 94, BUN 67, serum creatinine 4.12, hemoglobin 7.1 g/dL. Coronavirus PCR negative. ASSESSMENT: 1. End-stage renal disease, currently on home hemodialysis. The patient and his have been doing fairly well. No episodes of hypotension. We will plan for hemodialysis tomorrow. 2. History of fall. Details not available. However, patient was not hypotensive and he denies any chest pains, shortness of breath, dizziness or lightheadedness. 3. Hypertension, blood pressure not significantly elevated. 4. Chronic kidney disease mineral bone disorder, maintained on Rocaltrol. 5. Anemia of chronic disease, currently on Aranesp. 6. History of neuropathy. Maintained on Neurontin at home. I am not sure if this contributed to his fall. PLAN: Hemodialysis in a.m. Encourage increased oral intake. Continue current medications including Rocaltrol, Drisdol. I will check iron profile as well. Thank you for this consultation. Will continue to follow the patient with you during his hospitalization. MMODL / IJN: [id number] /
[2021-01-23] MEDS: METOPROLOL TARTRATE 25 MG TAB PO SCH ×2 (17:58→21:42)
[2021-01-23] MEDS: hydrALAZINE HCL 25 MG TAB PO SCH ×2 (17:58→21:41)
[2021-01-23] MEDS: GABAPENTIN 100 MG CAP PO SCH ×2 (17:58→21:49)
[2021-01-23 18:02] LABS: Glucose,Whole Blood 231 mg/dL (75-99)
--- NOTE | 2021-01-23 18:44 | P.CONS ---
History of Present Illness - Reason for Consult Consult date: 01/23/21 known pt Requesting physician: Philippe Villeda - Chief Complaint ARF - History of Present Illness Mr. Egan is a pleasant male pt, initially seen in consult at [facility] 03/05/18. Hx of mult medical problems including cardiac disease on antiplatelet therapy, he presented with anemia, present since 08/04. Had EGD and colonoscopy 07/20/17 with 3 benign polyps removed. Labs from 11/03 had confirmed iron deficiency with ferritin of 27, and iron saturation of 11, despite him getting intermittent blood transfusions. He had had at least 3 acevedo sfusions since 08/04. Was taking oral iron daily, increased to twice a day and then 3 times a day, after 08/04. He was admitted with symptomatic anemia, with hemoglobin 7.3 on 03/04/18, whereas it had been 9.2 on 02/13/18. On 02/10/18 it was 6.6. It was felt that the drop in hemoglobin was more likely due to natural breakdown of transfused blood draws and active bleeding. The patient was transfused and also received IV iron. He was then discharged. Came in on asa and Plavix, Plavix discontinued during that admission. He received additional IV iron on 03/20/18, 03/24/18, and in 05/06. Seen for his 1st OV 03/26/18. He was placed on Hgb monitoring with IV iron as needed. He was admitted to [facility] for abdominal pain/n/v in early 06/05. CT AP and Abd XR did not show any major findings other than possible, mild ileus. His symptoms were felt to be due to constipation. Hgb 06/05 was still 9.8, with normal iron stores. It is thus felt that he also has a component of AOCKD. 10/07 hospitalized for 2 days (09/23-09/24) with a Hgb <6, had transfusion. Had c/o chest pain, Cardiology work up resulted in discontinuation of lasix and decreased dose of glipizide. He received IV iron in 10/07 and was started on Aranesp 60 mcg Q wk at [facility]. He was off JOEL in 12/05 due to Hgb levels, resumed in 02/04, at a Q 3 wk dosing with Hgb limit of 11. He was switched to Q 2 wks in 06/06, but had it Q 3 wks through 07/07 as he had a stent in his LLE, and then due to . He received PRBC transfusion in 08/06 for symptomatic anemia with Hgb of 7.5. Catheterization with stent in the right lower extremity in early 10/08. He was started back on Plavix. He did have a drop in hemoglobin subsequently in 10/08 into the 7 range and received another blood transfusion. He therefore stopped taking the Plavix after his initial months prescription ran out. Resumed Plavix soon after due his recent stent. He received IV iron again in early 12/06. 01/05 he received iron infusions. He stopped his plavix without telling his Technical Sales Manager around that time. After his visit in 12/27 aranesp was increased to 60 g every week. This led to rapid increase in hemoglobin, due to which it was decreased to 40 ug every other week at his visit on 02/09/20. Increased to 40 g every week at his visit in 04/07. Further increased to 60 g every week in 07/08. He had MA around 05/08, he was hospitalized for hyperglycemia, CHF and pleural effusions. He had another cardiac catheterization with stent placement, had a thoracentesis of 1500 cc too. As a result of the above he did not get iron or JOEL in the first 2 weeks of 05/08 and resumed JOEL only on 05/05/20. He received 1 unit PRBC for hemoglobin of 7.2 on 05/05/20. He stopped taking the Plavix again-he was told that he could not have peritoneal dialysis if he was on plavix. Despite repeated urging as to the severe risk of not taking the Plavix, he did not resume till his visit in 07/08. He had a transfusion 09/08. Last injectofer was 12/22/20, no documented aranesp injections since Aug 2020. Pt states he was feeling weak and lethargic, he passed out, he has lots of coagulated blood in the left nostril, he denies MARTIN, vision changes, mild SOB on exertion, CBG was 371, he states he last had dialysis on Saturday, Cr 4.12. Denies any current N, pain, black or bloody stool, fevers. Review of Systems ROS unobtainable: due to mental status (Pt lethargic, did answer a few questions and was appropriate) Past Medical History Past Medical History: Coronary Artery Disease (CAD), Chest Pain / Angina, COPD, Diabetes Mellitus, GERD/Reflux, GI Bleed, Hyperlipidemia, Hypertension, Pneumonia, Renal Disease, Vascular Disorder Additional Past Medical History / Comment(s): IDDM type II, lower GI bleed, benign colon polyps, spouse states micro bleeds in intestine are suspected, abdominal distention comes and goes which is nearly daily, partial SBO, chronic renal disease stage IV, iron anemia with iron transfusions (recent R upper chest mediport for infusions), PVD, stable lung nodules, chronic low back pain with bilateral sciatica, RLS, vertigo, insomnia, past agent orange exposure. History of Any Multi-Drug Resistant Organisms: None Reported Past Surgical History: Cholecystectomy, Heart Catheterization Additional Past Surgical History / Comment(s): 03/25/20 R sublclavian mediport, R carotid stent done in [place], EGD/colonoscopyDece2016, endoscopic capsule, fx lt wrist -sx re-set, aortagram, bilateral leg revascularizations/stents Past Anesthesia/Blood Transfusion Reactions: No Reported Reaction Additional Past Anesthesia/Blood Transfusion Reaction / Comm: Pt has had blood transfusion without reaction. Past Psychological History: Depression, PTSD Smoking Status: Current every day smoker Past Alcohol Use History: None Reported Past Drug Use History: None Reported - Past Family History Father History Unknown: Yes Mother Family Medical History: Cancer Additional Family Medical History / Comment(s): Mother from metastatic cancer pelvic origin. Medications and Allergies Home Medications Medication Instructions Recorded Confirmed Type Ergocalciferol (Vitamin D2) 50,000 unit PO Q14D 07/18/17 01/23/21 History [Vitamin D2] Simvastatin [Zocor] 40 mg PO HS 07/18/17 01/23/21 History Aspirin EC [Ecotrin Low Dose] 81 mg PO HS 02/10/18 01/23/21 History Ferrous Sulfate [Iron (65 MG 325 mg PO TID 02/10/18 01/23/21 History Elemental)] Cyanocobalamin [Vitamin B-12] 1,000 mcg PO DAILY 09/23/18 01/23/21 History glipiZIDE [Glucotrol] 5 mg PO BID 05/22/19 01/23/21 History calcitrioL [Rocaltrol] 0.5 mcg PO SUWE 09/17/19 01/23/21 History Omeprazole [PriLOSEC] 20 mg PO HS 09/25/19 01/23/21 History Clopidogrel [Plavix] 75 mg PO HS 04/18/20 01/23/21 History Isosorbide Mononitrate ER [Imdur] 60 mg PO BID #60 tab.er.24h 04/21/20 01/23/21 Rx amLODIPine [Norvasc] 10 mg PO DAILY #30 tab 04/28/20 01/23/21 Rx hydrALAZINE HCL [Apresoline] 25 mg PO TID 05/19/20 01/23/21 History Metoprolol Tartrate [Lopressor] 25 mg PO TID 07/13/20 01/23/21 History DULoxetine HCL [Cymbalta] 20 mg PO DAILY 10/27/20 01/23/21 History Ascorbic Acid [Vitamin C] 500 mg PO DAILY 12/19/20 01/23/21 History Folic Acid-Vit B Complex-Vit C 1 cap PO DAILY 12/19/20 01/23/21 History [Nephrocaps] Melatonin 5 mg PO HS 12/19/20 01/23/21 History Sennosides-Docusate Sodium 2 tab PO TID PRN 12/31/20 01/23/21 History [Senokot-S] Insulin Glargine [Lantus] 15 unit SQ HS #0 01/03/21 01/23/21 Rx Darbepoetin Joel [Aranesp] 60 mcg IV Q7D 01/23/21 01/23/21 History Furosemide [Lasix] 80 mg PO DAILY 01/23/21 01/23/21 History Gabapentin [Neurontin] 100 mg PO TID 01/23/21 01/23/21 History Loratadine 10 mg PO DAILY 01/23/21 01/23/21 History Nitroglycerin Sl Tabs [Nitrostat] 0.4 mg SL Q5M PRN 01/23/21 01/23/21 History Sodium Bicarbonate Tab 650 mg PO BID 01/23/21 01/23/21 History rOPINIRole HCL [Requip] 0.5 mg PO BID 01/23/21 01/23/21 History Allergies Allergy/AdvReac Type Severity Reaction Status Date / Time Iodinated Contrast Media AdvReac CAN'T Verified 01/23/21 09:29 TAKE, RENAL DISEASE Iodine and Iodide Containing AdvReac CAN'T Verified 01/23/21 09:29 Produc TAKE, RENAL DISEASE Physical Exam Vitals: Vital Signs Temp Pulse Resp BP Pulse Ox 01/23/21 07:44 71 16 148/62 98 01/23/21 06:26 78 18 146/67 99 01/23/21 04:40 85 18 137/63 95 01/23/21 03:51 62 18 136/66 98 01/23/21 03:24 53 L 16 136/55 98 01/23/21 02:54 97.9 F 63 16 133/56 94 L Intake and Output 01/22/21 01/23/21 01/23/21 22:59 06:59 14:59 Other: Weight 76.657 kg - Constitutional General appearance: average body habitus, disheveled, mild distress - EENT very large blood clot in the left nare Eyes: anicteric sclerae, edentulous ENT: hearing grossly normal - Neck Neck: no lymphadenopathy - Respiratory Respiratory: bilateral: diminished (weak inspiratory effort) - Cardiovascular Heart sounds: normal: S1, S2 Abnormal Heart Sounds: no systolic murmur, no diastolic murmur, no rub, no S3 Gallop, no S4 Gallop, no click, no other leg Peripheral Edema: bilateral: None - Gastrointestinal General gastrointestinal: no absent bowel sounds, no decreased bowel sounds, no distended, no hepatomegaly, no hyperactive bowel sounds, normal bowel sounds, no organomegaly, no rigid, no scaphoid, soft, no splenomegaly, no tenderness, no umbilical hernia, no ventral hernia - Integumentary Integumentary: pale - Neurologic Neurologic: CNII-XII intact - Musculoskeletal Musculoskeletal: generalized weakness, strength equal bilaterally - Psychiatric Lethargic, oriented x 3 Results CBC & Chem 7: 01/23/21 03:04 01/23/21 03:04 Labs: Abnormal Lab Results - Last 24 Hours (Table) 01/23/21 01/23/21 01/23/21 Range/Units 02:52 03:04 03:04 WBC 10.8 H (3.8-10.6) k/uL RBC 2.20 L (4.30-5.90) m/uL Hgb 7.1 L D (13.0-17.5) gm/dL Hct 22.3 L (39.0-53.0) % MCV 101.7 H (80.0-100.0) fL RDW 15.6 H (11.5-15.5) % Neutrophils # 9.5 H (1.3-7.7) k/uL Lymphocytes # 0.6 L (1.0-4.8) k/uL Sodium 133 L (137-145) mmol/L Chloride 94 L (98-107) mmol/L BUN 67 H (9-20) mg/dL Creatinine 4.12 H (0.66-1.25) mg/dL Glucose 371 H (74-99) mg/dL POC Glucose (mg/dL) 441 H (75-99) mg/dL Phosphorus 5.2 H (2.5-4.5) mg/dL Total Protein 5.5 L (6.3-8.2) g/dL Albumin 3.0 L (3.5-5.0) g/dL Comments: Head, neck, facial x-ray reports reviewed Chest x-ray: report reviewed Assessment and Plan (1) Symptomatic anemia Narrative/Plan: 1 unit PRBCs ordered for Hgb 7.1-pt is symptomatic. Current Visit: Yes Status: Acute Priority: High Code(s): D64.9 - ANEMIA, UNSPECIFIED SNOMED Code(s): 604557377 (2) Anemia in chronic kidney disease (CKD) Narrative/Plan: On dialysis, pending verification if getting EPO at dialysis. Defer to Nephrology Current Visit: Yes Status: Chronic Priority: High Code(s): N18.9 - CHRONIC KIDNEY DISEASE, UNSPECIFIED; D63.1 - ANEMIA IN CHRONIC KIDNEY DISEASE SNOMED Code(s): 690379637 (3) Iron deficiency anemia Narrative/Plan: Iron studies ordered to evaluate parenteral iron given last month Current Visit: No Status: Chronic Priority: Medium Code(s): D50.9 - IRON DEFICIENCY ANEMIA, UNSPECIFIED SNOMED Code(s): 59601996 Plan: Doctor attests: I performed a history and physical examination of this patient, developed impression and plan of care, discussed with dictator. I agree with dictators note, documented as a scribe.
[2021-01-23 19:02] LABS: Ferritin 174.5 ng/mL (22.0-322.0)
[2021-01-23 19:03] LABS: % Iron Saturation 8.63 (15.00-50.00)
[2021-01-23] MEDS ORDERED: CLOPIDOGREL 75 MG TAB PO SCH (21:00)
[2021-01-23] MEDS ORDERED: ASPIRIN 81 MG PO SCH (21:00)
[2021-01-23] MEDS ORDERED: MELATONIN 5 MG TABLET PO SCH (21:00)
[2021-01-23] MEDS ORDERED: ATORVASTATIN 20 MG TAB PO SCH (21:00)
[2021-01-23] MEDS ORDERED: INSULIN DETEMIR (LEVEMIR) 100 UNIT/ML SYR SQ SCH (21:00)
[2021-01-23] MEDS: ISOSORBIDE MONONITRATE ER 60 MG TAB.ER.24H PO SCH (21:43)
[2021-01-23 21:49] LABS: Glucose,Whole Blood 232 mg/dL (75-99)
[2021-01-23] MEDS: HEPARIN SODIUM,PORCINE/PF 5,000 UNIT/0.5 ML SYRINGE SQ SCH (21:59)
--- NOTE | 2021-01-24 00:45 | P.HPIM ---
History of Present Illness H&P Date: 01/23/21 Chief Complaint: Nose bleed Patient is a 70-year-old male with a known history of ESRD on hemodialysis Saturday, previously on peritoneal dialysis, hypertension, diabetes type 2, hyperlipidemia, history of lower GI bleed and anemia with iron deficiency requiring multiple blood transfusions and history of EGD and colonoscopy, peripheral vascular disease, chronic low back pain, vertigo and other multiple medical problems presents to ER due to fall and nosebleed. Patient states that he felt very weak and fell with hitting his head and bleeding from his nose. Patient was brought to the hospital by EMS. Patient is also complaining of occasional chest pains and lightheadedness and dizziness. No complaints of nausea vomiting. Denies any hematemesis or melena. No active bleeding at this time. No complaints of fever or chills. No abdominal pain. Chest x-ray showed no significant interval change. CT head and cervical spine showed cerebral atrophy. No acute intracranial abnormality. Sinusitis. Spondylotic changes in the cervical spine. No frac tures seen. Brain unchanged compared to old exam. Nasopharyngeal density consistent with blood clot and debris's. EKG showed normal sinus rhythm. Laboratory data showed WBC 10.8 hemoglobin 7.1 and MCV 101.7 and platelets 304 Sodium 133 potassium 3.8 chloride 94 BUN 67 creatinine 4.12 and blood sugar is 371 and phosphorus 5.2 troponin x1 - and albumin 3.0 UA negative for infection Coronavirus PCR not detected. Past Medical History Past Medical History: Coronary Artery Disease (CAD), Chest Pain / Angina, COPD, Diabetes Mellitus, GERD/Reflux, GI Bleed, Hyperlipidemia, Hypertension, Pneumonia, Renal Disease, Vascular Disorder Additional Past Medical History / Comment(s): IDDM type II, lower GI bleed, benign colon polyps, spouse states micro bleeds in intestine are suspected, abdominal distention comes and goes which is nearly daily, partial SBO, chronic renal disease stage IV, iron anemia with iron transfusions (recent R upper chest mediport for infusions), PVD, stable lung nodules, chronic low back pain with bilateral sciatica, RLS, vertigo, insomnia, past agent orange exposure. History of Any Multi-Drug Resistant Organisms: None Reported Past Surgical History: Cholecystectomy, Heart Catheterization Additional Past Surgical History / Comment(s): 03/25/20 R sublclavian mediport, R carotid [facility] in [place] endoscopic capsule, fx lt wrist -sx re-set, aortagram, bilateral leg revascularizations/stents Past Anesthesia/Blood Transfusion Reactions: No Reported Reaction Additional Past Anesthesia/Blood Transfusion Reaction / Comment(s): Pt has had blood transfusion without reaction. Past Psychological History: Depression, PTSD Smoking Status: Current every day smoker Past Alcohol Use History: None Reported Past Drug Use History: None Reported - Past Family History Father History Unknown: Yes Mother Family Medical History: Cancer Additional Family Medical History / Comment(s): Mother from metastatic cancer pelvic origin. Medications and Allergies Home Medications Medication Instructions Recorded Confirmed Type Ergocalciferol (Vitamin D2) 50,000 unit PO Q14D 07/18/17 01/23/21 History [Vitamin D2] Simvastatin [Zocor] 40 mg PO HS 07/18/17 01/23/21 History Aspirin EC [Ecotrin Low Dose] 81 mg PO HS 02/10/18 01/23/21 History Ferrous Sulfate [Iron (65 MG 325 mg PO TID 02/10/18 01/23/21 History Elemental)] Cyanocobalamin [Vitamin B-12] 1,000 mcg PO DAILY 09/23/18 01/23/21 History glipiZIDE [Glucotrol] 5 mg PO BID 05/22/19 01/23/21 History calcitrioL [Rocaltrol] 0.5 mcg PO SUWE 09/17/19 01/23/21 History Omeprazole [PriLOSEC] 20 mg PO HS 09/25/19 01/23/21 History Clopidogrel [Plavix] 75 mg PO HS 04/18/20 01/23/21 History Isosorbide Mononitrate ER [Imdur] 60 mg PO BID #60 tab.er.24h 04/21/20 01/23/21 Rx amLODIPine [Norvasc] 10 mg PO DAILY #30 tab 04/28/20 01/23/21 Rx hydrALAZINE HCL [Apresoline] 25 mg PO TID 05/19/20 01/23/21 History Metoprolol Tartrate [Lopressor] 25 mg PO TID 07/13/20 01/23/21 History DULoxetine HCL [Cymbalta] 20 mg PO DAILY 10/27/20 01/23/21 History Ascorbic Acid [Vitamin C] 500 mg PO DAILY 12/19/20 01/23/21 History Folic Acid-Vit B Complex-Vit C 1 cap PO DAILY 12/19/20 01/23/21 History [Nephrocaps] Melatonin 5 mg PO HS 12/19/20 01/23/21 History Sennosides-Docusate Sodium 2 tab PO TID PRN 12/31/20 01/23/21 History [Senokot-S] Insulin Glargine [Lantus] 15 unit SQ HS #0 01/03/21 01/23/21 Rx Darbepoetin Joel [Aranesp] 60 mcg IV Q7D 01/23/21 01/23/21 History Furosemide [Lasix] 80 mg PO DAILY 01/23/21 01/23/21 History Gabapentin [Neurontin] 100 mg PO TID 01/23/21 01/23/21 History Loratadine 10 mg PO DAILY 01/23/21 01/23/21 History Nitroglycerin Sl Tabs [Nitrostat] 0.4 mg SL Q5M PRN 01/23/21 01/23/21 History Sodium Bicarbonate Tab 650 mg PO BID 01/23/21 01/23/21 History rOPINIRole HCL [Requip] 0.5 mg PO BID 01/23/21 01/23/21 History Allergies Allergy/AdvReac Type Severity Reaction Status Date / Time Iodinated Contrast Media AdvReac CAN'T Verified 01/23/21 09:29 TAKE, RENAL DISEASE Iodine and Iodide Containing AdvReac CAN'T Verified 01/23/21 09:29 Produc TAKE, RENAL DISEASE Physical Exam Vitals: Vital Signs Temp Pulse Resp BP Pulse Ox 01/23/21 07:44 71 16 148/62 98 01/23/21 06:26 78 18 146/67 99 01/23/21 04:40 85 18 137/63 95 01/23/21 03:51 62 18 136/66 98 01/23/21 03:24 53 L 16 136/55 98 01/23/21 02:54 97.9 F 63 16 133/56 94 L Intake and Output 01/22/21 01/23/21 01/23/21 22:59 06:59 14:59 Other: Weight 76.657 kg Results CBC & Chem 7: 01/23/21 03:04 01/23/21 03:04 Labs: Abnormal Lab Results - Last 24 Hours (Table) 01/23/21 01/23/21 01/23/21 Range/Units 02:52 03:04 03:04 WBC 10.8 H (3.8-10.6) k/uL RBC 2.20 L (4.30-5.90) m/uL Hgb 7.1 L D (13.0-17.5) gm/dL Hct 22.3 L (39.0-53.0) % MCV 101.7 H (80.0-100.0) fL RDW 15.6 H (11.5-15.5) % Neutrophils # 9.5 H (1.3-7.7) k/uL Lymphocytes # 0.6 L (1.0-4.8) k/uL Sodium 133 L (137-145) mmol/L Chloride 94 L (98-107) mmol/L BUN 67 H (9-20) mg/dL Creatinine 4.12 H (0.66-1.25) mg/dL Glucose 371 H (74-99) mg/dL POC Glucose (mg/dL) 441 H (75-99) mg/dL Phosphorus 5.2 H (2.5-4.5) mg/dL Total Protein 5.5 L (6.3-8.2) g/dL Albumin 3.0 L (3.5-5.0) g/dL Assessment and Plan Assessment: Symptomatic anemia with hemoglobin 7.1. Patient was transfused with 1 mL PRBC. Status post fall with hitting his head and nosebleed. Iron deficiency anemia with history of multiple blood transfusions and iron oral supplementation. ESRD on hemodialysis Saturday Hypertension Hyperlipidemia Coronary artery disease DVT prophylaxis with heparin subcu Plan: Patient will be continued telemetry monitoring. Patient is being transfused with 1 unit of PRBC. Monitor H&H. Iron supplementation. Nephrology was consulted is scheduled for hemodialysis Saturday and Saturday. Continue with Ernacep. Hematology is on board. No active nose bleeding at this time. Continue with home medications and further recommendations based on the clinical course. Time with Patient: Greater than 30
[2021-01-24] MEDS: MORPHINE SULFATE 4 MG/ML SYRINGE IV PRN ×2 (07:17→12:23)
[2021-01-24 07:26] LABS: ALT 12 U/L (4-49); AST 19 U/L (17-59); African American GFR (CKD) 16 (>60 ml/min/1.73 sqM); Albumin 3.1 g/dL (3.5-5.0); Albumin/Globulin Ratio 1.2; Alkaline Phosphatase 63 U/L (38-126); Anion Gap 6 mmol/L; Blood Urea Nitrogen 62 mg/dL (9-20); Calcium 8.9 mg/dL (8.4-10.2); Carbon Dioxide 33 mmol/L (22-30); Chloride 102 mmol/L (98-107); Globulin 2.5 g/dL; Glucose 73 mg/dL (74-99); Non-African American GFR(CKD) 14 (>60 ml/min/1.73 sqM); Potassium 3.5 mmol/L (3.5-5.1); Sodium 141 mmol/L (137-145); Total Bilirubin 0.2 mg/dL (0.2-1.3); Total Protein 5.6 g/dL (6.3-8.2)
[2021-01-24 07:50] LABS: Glucose,Whole Blood 67 mg/dL (75-99)
[2021-01-24 07:52] LABS: Basophils % (A) 0 %; Eosinophils % (A) 0 %; HCT 26.7 % (39.0-53.0); Lymphocytes # (A) 0.6 k/uL (1.0-4.8); Lymphocytes % (A) 6 %; MCH 32.3 pg (25.0-35.0); MCHC 32.5 g/dL (31.0-37.0); MCV 99.5 fL (80.0-100.0); Macrocytosis Slight; Mean Platelet Volume 8.6; Monocytes # (A) 0.4 k/uL (0-1.0); Monocytes % (A) 3 %; Neutrophils # (A) 9.8 k/uL (1.3-7.7); Neutrophils % (A) 90 %; Platelet Count 335 k/uL (150-450); RBC 2.69 m/uL (4.30-5.90); RDW 15.9 % (11.5-15.5); WBC 10.9 k/uL (3.8-10.6)
[2021-01-24 07:53] LABS: HGB 8.7 gm/dL (13.0-17.5)
[2021-01-24] MEDS: INSULIN ASPART (NovoLOG) 100 UNIT/ML VIAL SQ SCH ×2 (08:00→12:35)
[2021-01-24] MEDS ORDERED: DULoxetine HCL 20 MG CAPSULE.DR PO SCH (09:00)
[2021-01-24] MEDS ORDERED: ASCORBIC ACID 500 MG TAB PO SCH (09:00)
--- NOTE | 2021-01-24 10:43 | P.PN ---
Subjective Patient is seen in follow-up for end-stage renal disease. Patient is currently undergoing home hemodialysis training. Tolerating dialysis well. No chest pain or shortness of breath. Blood pressure stable. Vital signs are stable. General: The patient appeared well nourished and normally developed. HEENT: Head exam is unremarkable. Neck is without jugular venous distension. LUNGS: Breath sounds decreased. HEART: Rate and Rhythm are regular. ABDOMEN: Soft, no distention. EXTREMITITES: No edema. Objective - Vital Signs Vital signs: Vital Signs Temp 98.4 F 01/24/21 05:08 Pulse 77 01/24/21 07:00 Resp 18 01/24/21 07:00 BP 138/88 01/24/21 07:00 Pulse Ox 98 01/24/21 07:00 Intake & Output 01/23/21 01/24/21 01/24/21 18:59 06:59 18:59 Intake Total 310 Balance 310 Weight 76.657 kg Intake: Blood Product 310 Rc As-1 Unit 310 [id number] - Labs CBC & Chem 7: 01/24/21 06:53 01/24/21 06:53 Labs: Abnormal Lab Results - Last 24 Hours (Table) 01/23/21 01/23/21 01/23/21 Range/Units 10:54 10:54 12:01 WBC (3.8-10.6) k/uL RBC (4.30-5.90) m/uL Hgb (13.0-17.5) gm/dL Hct (39.0-53.0) % RDW (11.5-15.5) % Neutrophils # (1.3-7.7) k/uL Lymphocytes # (1.0-4.8) k/uL Carbon Dioxide (22-30) mmol/L BUN (9-20) mg/dL Creatinine (0.66-1.25) mg/dL Glucose (74-99) mg/dL POC Glucose (mg/dL) 284 H (75-99) mg/dL Iron 24 L (65-175) ug/dL % Saturation 8.63 L (15.00-50.00) Total Protein (6.3-8.2) g/dL Albumin (3.5-5.0) g/dL Urine Protein (Negative) Urine Glucose (UA) (Negative) Crossmatch See Detail 01/23/21 01/23/21 01/23/21 Range/Units 12:10 18:00 21:38 WBC (3.8-10.6) k/uL RBC (4.30-5.90) m/uL Hgb (13.0-17.5) gm/dL Hct (39.0-53.0) % RDW (11.5-15.5) % Neutrophils # (1.3-7.7) k/uL Lymphocytes # (1.0-4.8) k/uL Carbon Dioxide (22-30) mmol/L BUN (9-20) mg/dL Creatinine (0.66-1.25) mg/dL Glucose (74-99) mg/dL POC Glucose (mg/dL) 231 H 232 H (75-99) mg/dL Iron (65-175) ug/dL % Saturation (15.00-50.00) Total Protein (6.3-8.2) g/dL Albumin (3.5-5.0) g/dL Urine Protein 2+ H (Negative) Urine Glucose (UA) 4+ H (Negative) Crossmatch 01/24/21 01/24/21 01/24/21 Range/Units 06:53 06:53 07:47 WBC 10.9 H (3.8-10.6) k/uL RBC 2.69 L (4.30-5.90) m/uL Hgb 8.7 L D (13.0-17.5) gm/dL Hct 26.7 L (39.0-53.0) % RDW 15.9 H (11.5-15.5) % Neutrophils # 9.8 H (1.3-7.7) k/uL Lymphocytes # 0.6 L (1.0-4.8) k/uL Carbon Dioxide 33 H (22-30) mmol/L BUN 62 H (9-20) mg/dL Creatinine 4.01 H (0.66-1.25) mg/dL Glucose 73 L (74-99) mg/dL POC Glucose (mg/dL) 67 L (75-99) mg/dL Iron (65-175) ug/dL % Saturation (15.00-50.00) Total Protein 5.6 L (6.3-8.2) g/dL Albumin 3.1 L (3.5-5.0) g/dL Urine Protein (Negative) Urine Glucose (UA) (Negative) Crossmatch Assessment and Plan Plan: Assessment: 1. End-stage renal disease currently undergoing home hemodialysis training. 2. Status post fall. Unclear cause. No hypotension. ?due to anemia. 3. Hypertension with chronic kidney disease. Stable. 4. Anemia of chronic kidney disease maintained on Aranesp. Received blood transfusion this admission. 5. Chronic kidney disease mineral bone disease maintained on calcitriol. 6. Diabetes mellitus. 7. Neuropathy. Maintained on gabapentin 100 mg 3 times daily. 8. Chronic diastolic CHF. Plan: Currently seen while undergoing hemodialysis. Another treatment tomorrow. He will be then be maintained on Saturday schedule while in the hospital. To continue with home hemodialysis training upon discharge.
[2021-01-24] MEDS: HEPARIN SODIUM,PORCINE/PF 5,000 UNIT/0.5 ML SYRINGE SQ SCH (10:58)
[2021-01-24 11:33] VITALS: TEMP 97.6
[2021-01-24] MEDS: amLODIPine 10 MG TAB PO SCH (11:43)
[2021-01-24] MEDS: CYANOCOBALAMIN 500 MCG TAB PO SCH (11:44)
[2021-01-24] MEDS: GABAPENTIN 100 MG CAP PO SCH ×2 (11:44→17:10)
[2021-01-24] MEDS: FOLIC ACID-VIT B COMPLEX-VIT C 1 CAP PO SCH (11:44)
[2021-01-24] MEDS: ISOSORBIDE MONONITRATE ER 60 MG TAB.ER.24H PO SCH (11:44)
[2021-01-24] MEDS: hydrALAZINE HCL 25 MG TAB PO SCH ×2 (11:44→17:10)
[2021-01-24] MEDS: METOPROLOL TARTRATE 25 MG TAB PO SCH ×2 (11:44→17:10)
[2021-01-24 11:47] VITALS: RESP 18
[2021-01-24 12:37] LABS: Glucose,Whole Blood 109 mg/dL (75-99)
[2021-01-24] MEDS ORDERED: SODIUM FERRIC GLUCONAT-SUCROSE 125 MG in SODIUM CHLORIDE 0.9% 100 ML IVPB ONE (13:00)
[2021-01-24 15:53] VITALS: BP 140/58; PULSE 77
--- NOTE | 2021-01-26 15:55 | P.DS ---
Providers Date of admission: 01/23/21 03:56 Expected date of discharge: 01/24/21 Attending physician: Aida Ndiaye Consults: 01/23/21 03:57 Consult Physician Routine Consulting Provider: Lucas Singletary Consult Reason/Comments: known Do you want consulting provider notified?: Yes 01/23/21 04:53 Consult Physician Routine Consulting Provider: Yulissa Ivory Consult Reason/Comments: arfHD Do you want consulting provider notified?: Yes, Notify in am Primary care physician: [facility] Hospital Course: Final diagnosis Symptomatic anemia with hemoglobin 7.1. Patient was transfused with 1 unit PRBC. Status post fall with hitting his head and nosebleed. Iron deficiency anemia with history of multiple blood transfusions and iron oral supplementation. ESRD on hemodialysis Saturday Hypertension Hyperlipidemia Coronary artery disease DVT prophylaxis Discharge disposition Patient is being discharged in a stable condition with guarded prognosis to home. Patient will follow-up with [facility] in the outpatient setting upon discharge. Patient is also to follow-up with hematology and nephrology in the outpatient setting. Patient will continue on Saturday/Saturday/Saturday schedule of hemodialysis. Total time taken is greater than 35 minutes. Hospital course Patient is a 70-year-old male with a known history of ESRD on hemodialysis Saturday, previously on peritoneal dialysis, hypertension, diabetes type 2, hyperlipidemia, history of lower GI bleed and anemia with iron deficiency requiring multiple blood transfusions and history of EGD and colonoscopy, peripheral vascular disease, chronic low back pain, vertigo and other multiple medical problems presents to ER due to fall and nosebleed. Patient states that he felt very weak and fell with hitting his head and bleeding from his nose. Patient was brought to the hospital by EMS. Patient is also complaining of occasional chest pains and lightheadedness and dizziness. No complaints of nausea vomiting. Denies any hematemesis or melena. No active bleeding at this time. No complaints of fever or chills. No abdominal pain. Chest x-ray showed no significant interval change. CT head and cervical spine showed cerebral atrophy. No acute intracranial abnormality. Sinusitis. Spondylotic changes in the cervical spine. No fractures seen. Brain unchanged compared to old exam. Nasopharyngeal density consistent with blood clot and debris's. EKG showed normal sinus rhythm. Laboratory data showed WBC 10.8 hemoglobin 7.1 and MCV 101.7 and platelets 304 Sodium 133 potassium 3.8 chloride 94 BUN 67 creatinine 4.12 and blood sugar is 371 and phosphorus 5.2 troponin x1 - and albumin 3.0 UA negative for infection Coronavirus PCR not detected. 01/24/2021 Patient is seen and evaluated and follow-up continues to be a hold in the ER and has currently just received dialysis and is scheduled to receive his next dose on Saturday and nephrology following and recommended continuing Saturday/Saturday/Saturday schedule. Discussed with hematology and will arrange for iron transfusion as needed in the office. Hemoglobin is stable at 8.7 status post 1 unit of PRBCs yesterday. Patient is requesting to to be discharged today. Currently no reports of chest pain, shortness of breath, or palpitations. Patient is afebrile. No reports of nausea or vomiting noted. Patient will be discharged home today. On exam vital signs are stable. Cardio S1, S2 are muffled. Respiratory system shows diminished breath sounds at the bases with scattered rhonchi noted. Abdomen is soft and nontender. Nervous system shows no focal deficits. Please refer to medication reconciliation sheet for a list of medications. Patient Condition at Discharge: Fair Plan - Discharge Summary Discharge Rx Participant: No New Discharge Prescriptions: Continue Simvastatin [Zocor] 40 mg PO HS Ergocalciferol (Vitamin D2) [Vitamin D2] 50,000 unit PO Q14D Aspirin EC [Ecotrin Low Dose] 81 mg PO HS Ferrous Sulfate [Iron (65 MG Elemental)] 325 mg PO TID Cyanocobalamin [Vitamin B-12] 1,000 mcg PO DAILY glipiZIDE [Glucotrol] 5 mg PO BID calcitrioL [Rocaltrol] 0.5 mcg PO SUWE Omeprazole [PriLOSEC] 20 mg PO HS Clopidogrel [Plavix] 75 mg PO HS Isosorbide Mononitrate ER [Imdur] 60 mg PO BID #60 tab.er.24h amLODIPine [Norvasc] 10 mg PO DAILY #30 tab hydrALAZINE HCL [Apresoline] 25 mg PO TID Metoprolol Tartrate [Lopressor] 25 mg PO TID DULoxetine HCL [Cymbalta] 20 mg PO DAILY Ascorbic Acid [Vitamin C] 500 mg PO DAILY Melatonin 5 mg PO HS Folic Acid-Vit B Complex-Vit C [Nephrocaps] 1 cap PO DAILY Sennosides-Docusate Sodium [Senokot-S] 2 tab PO TID PRN PRN Reason: Constipation Nitroglycerin Sl Tabs [Nitrostat] 0.4 mg SL Q5M PRN PRN Reason: Chest Pain Darbepoetin Joel [Aranesp] 60 mcg IV Q7D Gabapentin [Neurontin] 100 mg PO TID Insulin Glargine [Lantus] 15 unit SQ HS #0 rOPINIRole HCL [Requip] 0.5 mg PO BID Loratadine 10 mg PO DAILY Discontinued Sodium Bicarbonate Tab 650 mg PO BID Furosemide [Lasix] 80 mg PO DAILY Discharge Medication List Ergocalciferol (Vitamin D2) [Vitamin D2] 50,000 unit PO Q14D 07/18/17 [History] Simvastatin [Zocor] 40 mg PO HS 07/18/17 [History] Aspirin EC [Ecotrin Low Dose] 81 mg PO HS 02/10/18 [History] Ferrous Sulfate [Iron (65 MG Elemental)] 325 mg PO TID 02/10/18 [History] Cyanocobalamin [Vitamin B-12] 1,000 mcg PO DAILY 09/23/18 [History] glipiZIDE [Glucotrol] 5 mg PO BID 05/22/19 [History] calcitrioL [Rocaltrol] 0.5 mcg PO SUWE 09/17/19 [History] Omeprazole [PriLOSEC] 20 mg PO HS 09/25/19 [History] Clopidogrel [Plavix] 75 mg PO HS 04/18/20 [History] Isosorbide Mononitrate ER [Imdur] 60 mg PO BID #60 tab.er.24h 04/21/20 [Rx] amLODIPine [Norvasc] 10 mg PO DAILY #30 tab 04/28/20 [Rx] hydrALAZINE HCL [Apresoline] 25 mg PO TID 05/19/20 [History] Metoprolol Tartrate [Lopressor] 25 mg PO TID 07/13/20 [History] DULoxetine HCL [Cymbalta] 20 mg PO DAILY 10/27/20 [History] Ascorbic Acid [Vitamin C] 500 mg PO DAILY 12/19/20 [History] Folic Acid-Vit B Complex-Vit C [Nephrocaps] 1 cap PO DAILY 12/19/20 [History] Melatonin 5 mg PO HS 12/19/20 [History] Sennosides-Docusate Sodium [Senokot-S] 2 tab PO TID PRN 12/31/20 [History] Insulin Glargine [Lantus] 15 unit SQ HS #0 01/03/21 [Rx] Darbepoetin Ojel [Aranesp] 60 mcg IV Q7D 01/23/21 [History] Gabapentin [Neurontin] 100 mg PO TID 01/23/21 [History] Loratadine 10 mg PO DAILY 01/23/21 [History] Nitroglycerin Sl Tabs [Nitrostat] 0.4 mg SL Q5M PRN 01/23/21 [History] rOPINIRole HCL [Requip] 0.5 mg PO BID 01/23/21 [History] Follow up Appointment(s)/Referral(s): Lucas Singletary MD [STAFF PHYSICIAN] - 1 Week Eduardo French DO [STAFF PHYSICIAN] - 1 Week [facility] [Primary Care Provider] - 1-2 days Activity/Diet/Wound Care/Special Instructions: Activity Limited until follow-up Continue with Saturday/Saturday/Saturday dialysis schedule with the next treatment being tomorrow 01/25/2021 Continue renal diet Follow-up with hematology/oncology outpatient Follow-up with nephrology outpatient Discharge Disposition: HOME SELF-CARE
== END 2021-01-24 17:12 | disposition home or self-care (01) ==
LOC: EC 02:48 → 1SOBS 03:56 → 6NMEDSUR 14:18 → 5NMEDONC 01-24 16:02
PROVIDERS: ADMIT Hospitalist; ATTEND Hospitalist
DX: D50.9 Iron deficiency anemia, unspecified (principal); N17.9 Acute kidney failure, unspecified; I13.2 Hypertensive heart and chronic kidney disease with heart failure and with stage 5 chronic kidney disease, or end stage renal disease; N18.6 End stage renal disease; E11.22 Type 2 diabetes mellitus with diabetic chronic kidney disease; D63.1 Anemia in chronic kidney disease; I50.32 Chronic diastolic (congestive) heart failure; E11.51 Type 2 diabetes mellitus with diabetic peripheral angiopathy without gangrene; R07.9 Chest pain, unspecified; D62 Acute posthemorrhagic anemia; E78.5 Hyperlipidemia, unspecified; I25.10 Atherosclerotic heart disease of native coronary artery without angina pectoris; J44.9 Chronic obstructive pulmonary disease, unspecified; K21.9 Gastro-esophageal reflux disease without esophagitis; M89.9 Disorder of bone, unspecified; J32.9 Chronic sinusitis, unspecified; E11.42 Type 2 diabetes mellitus with diabetic polyneuropathy; F17.200 Nicotine dependence, unspecified, uncomplicated; F32.9 Major depressive disorder, single episode, unspecified; F43.10 Post-traumatic stress disorder, unspecified; G25.81 Restless legs syndrome; G89.29 Other chronic pain; M54.42 Lumbago with sciatica, left side; M54.41 Lumbago with sciatica, right side; G47.00 Insomnia, unspecified; R91.1 Solitary pulmonary nodule; Z20.822 Contact with and (suspected) exposure to COVID-19; R04.0 Epistaxis; W18.40XA Slipping, tripping and stumbling without falling, unspecified, initial encounter; Z79.02 Long term (current) use of antithrombotics/antiplatelets; Z79.82 Long term (current) use of aspirin; Z79.4 Long term (current) use of insulin; Z79.899 Other long term (current) drug therapy; Z91.041 Radiographic dye allergy status; Z86.010 Personal history of colon polyps; Z77.29 Contact with and (suspected) exposure to other hazardous substances; Z90.49 Acquired absence of other specified parts of digestive tract; Z91.81 History of falling; Z87.19 Personal history of other diseases of the digestive system; Z87.01 Personal history of pneumonia (recurrent); Z95.828 Presence of other vascular implants and grafts; Z99.2 Dependence on renal dialysis; Z98.890 Other specified postprocedural states; Z80.9 Family history of malignant neoplasm, unspecified
CPT/HCPCS: 36430; 96376; 96365; 96375 ×2; 96361; 99285; 36415; 90935; 93005 ×2; 86900; 86901; 80053 ×2; 82728; 83540; 83550; 83735; 84100; 84484 ×2; 85025 ×2; 85610; 85730; 86850; 86920; 81001; 87635; 71045; 72125; 70486; 70450; G0378 ×3; P9016; J2270 ×2; J1642; J2916; J0881

== ENCOUNTER 2021-01-30 21:09 | Inpatient (IN) | payer OTHER, MEDICARE ==
[2021-01-30] MEDS ORDERED: ALBUTEROL NEBULIZED 2.5 MG/3 ML INHALATION STA (21:22)
[2021-01-30] MEDS ORDERED: SODIUM CHLORIDE 0.9% 1,000 ML IV STA (21:22)
[2021-01-30] MEDS ORDERED: IPRATROPIUM 0.5 MG/2.5 ML NEBU INHALATION STA (21:22)
[2021-01-30] MEDS ORDERED: methylPREDNISolone SOD SUCCI 125 MG/2 ML VIAL IV STA (21:22)
--- NOTE | 2021-01-30 21:22 | ED ---
SOB HPI - General Chief Complaint: Shortness of Breath Stated Complaint: KASSANDRA Time Seen by Provider: 01/30/21 21:16 Source: patient, EMS, RN notes reviewed, old records reviewed Mode of arrival: EMS Limitations: no limitations - History of Present Illness Initial Comments: This is a 70-year-old male presented for evaluation, patient presents today for shortness of breath severe. Patient had dialysis 0.9 dialysis appointment patient is known to have low blood sugar. Did not make it to dialysis. Patient otherwise has no recent fevers travel history shortness of breath or sick contacts. Denies chest pain MD Complaint: shortness of breath, cough, anxiety -: hour(s) Severity: moderate Severity scale (1-10): 6 Quality: dull, aching Consistency: constant Improves With: nothing Known History Of: COPD, congestive heart failure, recurrent pneumonia Context: recent URI, anxiety, recent illness Associated Symptoms: cough, sputum production, orthopnea, parasthesias, palpitations, diaphoresis Treatments Prior to Arrival: oxygen, bronchodilator - Related Data Home Medications Medication Instructions Recorded Confirmed Ergocalciferol (Vitamin D2) 50,000 unit PO Q14D 07/18/17 01/30/21 [Vitamin D2] Simvastatin [Zocor] 40 mg PO HS 07/18/17 01/30/21 Aspirin EC [Ecotrin Low Dose] 81 mg PO HS 02/10/18 01/30/21 Ferrous Sulfate [Iron (65 MG 325 mg PO TID 02/10/18 01/30/21 Elemental)] Cyanocobalamin [Vitamin B-12] 1,000 mcg PO DAILY 09/23/18 01/30/21 glipiZIDE [Glucotrol] 5 mg PO BID 05/22/19 01/30/21 calcitrioL [Rocaltrol] 0.5 mcg PO SUWE 09/17/19 01/30/21 Omeprazole [PriLOSEC] 20 mg PO HS 09/25/19 01/30/21 Clopidogrel [Plavix] 75 mg PO HS 04/18/20 01/30/21 Metoprolol Tartrate [Lopressor] 25 mg PO TID 07/13/20 01/30/21 DULoxetine HCL [Cymbalta] 20 mg PO DAILY 10/27/20 01/30/21 Ascorbic Acid [Vitamin C] 500 mg PO DAILY 12/19/20 01/30/21 Folic Acid-Vit B Complex-Vit C 1 cap PO DAILY 12/19/20 01/30/21 [Nephrocaps] Melatonin 5 mg PO HS 12/19/20 01/30/21 Sennosides-Docusate Sodium 2 tab PO TID PRN 12/31/20 01/30/21 [Senokot-S] Darbepoetin Joel [Aranesp] 60 mcg IV Q7D 01/23/21 01/30/21 Gabapentin [Neurontin] 100 mg PO TID 01/23/21 01/30/21 Loratadine 10 mg PO DAILY 01/23/21 01/30/21 Nitroglycerin Sl Tabs [Nitrostat] 0.4 mg SL Q5M PRN 01/23/21 01/30/21 rOPINIRole HCL [Requip] 0.5 mg PO BID 01/23/21 01/30/21 Previous Rx's Medication Instructions Recorded Isosorbide Mononitrate ER [Imdur] 60 mg PO BID #60 tab.er.24h 04/21/20 Budesonide-Formot 160-4.5 Mcg 2 puff INHALATION RT-BID #1 inhaler 02/01/21 [Symbicort 160-4.5 Mcg Inhaler] Azithromycin [Zithromax] 500 mg PO DAILY 5 Days #5 tab 02/02/21 Cefuroxime Axetil [Ceftin] 500 mg PO BID 5 Days #10 tab 02/02/21 Insulin Glargine [Lantus] 20 unit SQ HS #0 02/02/21 Allergies Allergy/AdvReac Type Severity Reaction Status Date / Time Iodinated Contrast Media AdvReac CAN'T Verified 01/30/21 23:09 TAKE, RENAL DISEASE Iodine and Iodide Containing AdvReac CAN'T Verified 01/30/21 23:09 Produc TAKE, RENAL DISEASE Review of Systems ROS Statement: Those systems with pertinent positive or pertinent negative responses have been documented in the HPI. ROS Other: All systems not noted in ROS Statement are negative. Past Medical History Past Medical History: Coronary Artery Disease (CAD), Chest Pain / Angina, COPD, Diabetes Mellitus, GERD/Reflux, GI Bleed, Hyperlipidemia, Hypertension, Pneumonia, Renal Disease, Vascular Disorder Additional Past Medical History / Comment(s): IDDM type II, lower GI bleed, benign colon polyps, spouse states micro bleeds in intestine are suspected, abdominal distention comes and goes which is nearly daily, partial SBO, chronic renal disease stage IV, iron anemia with iron transfusions (recent R upper chest mediport for infusions), PVD, stable lung nodules, chronic low back pain with bilateral sciatica, RLS, vertigo, insomnia, past agent orange exposure. Last Myocardial Infarction Date:: 03/2020 History of Any Multi-Drug Resistant Organisms: None Reported Past Surgical History: Cholecystectomy, Heart Catheterization Additional Past Surgical History / Comment(s): 03/25/20 R sublclavian mediport, R carotid stent done in [place], EGD/colonoscopyDecember 2017, endoscopic capsule, fx lt wrist -sx re-set, aortagram, bilateral leg revasc ularizations/stents Past Anesthesia/Blood Transfusion Reactions: No Reported Reaction Additional Past Anesthesia/Blood Transfusion Reaction / Comment(s): Pt has had blood transfusion without reaction. Date of Last Stent Placement:: 04/27/20 Past Psychological History: Depression, PTSD Smoking Status: Current every day smoker Past Alcohol Use History: None Reported Past Drug Use History: None Reported - Past Family History Father History Unknown: Yes Mother Family Medical History: Cancer Additional Family Medical History / Comment(s): Mother from metastatic cancer pelvic origin. General Exam Limitations: no limitations General appearance: anxious Head exam: Present: atraumatic, normocephalic, normal inspection Eye exam: Present: normal appearance, PERRL, EOMI. Absent: scleral icterus, conjunctival injection, periorbital swelling ENT exam: Present: normal exam, mucous membranes moist Neck exam: Present: normal inspection. Absent: tenderness, meningismus, lymphadenopathy Respiratory exam: Present: normal lung sounds bilaterally. Absent: respiratory distress, wheezes, rales, rhonchi, stridor Cardiovascular Exam: Present: regular rate, normal rhythm, normal heart sounds. Absent: systolic murmur, diastolic murmur, rubs, gallop, clicks GI/Abdominal exam: Present: soft, normal bowel sounds. Absent: distended, tenderness, guarding, rebound, rigid Extremities exam: Present: normal inspection, full ROM, normal capillary refill. Absent: tenderness, pedal edema, joint swelling, calf tenderness Back exam: Present: normal inspection Neurological exam: Present: alert, oriented X3, CN II-XII intact Psychiatric exam: Present: normal affect, normal mood Skin exam: Present: warm, dry, intact, normal color. Absent: rash Course Vital Signs 01/30/21 01/30/21 01/30/21 21:11 22:15 22:31 Temperature 97.6 F Pulse Rate 74 72 76 Respiratory 20 Rate Blood Pressure 146/54 Blood Pressure [Right Arm] O2 Sat by Pulse 86 L Oximetry 01/30/21 01/31/21 01/31/21 22:40 00:09 01:55 Temperature Pulse Rate 94 78 74 Respiratory 30 H 18 16 Rate Blood Pressure 149/63 137/96 110/60 Blood Pressure [Right Arm] O2 Sat by Pulse 93 L 97 97 Oximetry 01/31/21 01/31/21 01/31/21 05:42 07:18 07:40 Temperature Pulse Rate 81 75 79 Respiratory 18 Rate Blood Pressure 130/62 129/59 Blood Pressure [Right Arm] O2 Sat by Pulse 100 100 Oximetry 01/31/21 01/31/21 01/31/21 07:48 07:49 11:00 Temperature Pulse Rate 93 94 Respiratory 16 Rate Blood Pressure 118/55 Blood Pressure [Right Arm] O2 Sat by Pulse 99 96 Oximetry 01/31/21 01/31/21 01/31/21 13:00 14:47 14:55 Temperature 97.2 F L Pulse Rate 68 93 Respiratory 18 18 18 Rate Blood Pressure 113/57 185/97 Blood Pressure 106/76 [Right Arm] O2 Sat by Pulse 96 97 Oximetry 01/31/21 16:51 Temperature Pulse Rate 75 Respiratory 18 Rate Blood Pressure 149/66 Blood Pressure [Right Arm] O2 Sat by Pulse 100 Oximetry - Reevaluation(s) Reevaluation #1: Medical records reviewed Symptoms are significantly improved here in the ER Patient informed of results and questions answered Medical Decision Making - Medical Decision Making 70 male DF for evaluation of shortness of breath. CHF exacerbation. Patient min for symptomatic treatment, patient also having severely restless legs and mild acute kidney injury - Lab Data Result diagrams: 02/02/21 07:04 02/02/21 07:04 Lab Results 01/30/21 01/30/21 01/30/21 Range/Units 21:27 21:27 21:27 WBC 10.7 H (3.8-10.6) k/uL RBC 2.21 L (4.30-5.90) m/uL Hgb 7.5 L (13.0-17.5) gm/dL Hct 22.2 L (39.0-53.0) % MCV 100.2 H (80.0-100.0) fL MCH 33.9 (25.0-35.0) pg MCHC 33.8 (31.0-37.0) g/dL RDW 17.0 H (11.5-15.5) % Plt Count 394 (150-450) k/uL MPV 8.3 Neutrophils % 86 % Lymphocytes % 8 % Monocytes % 4 % Eosinophils % 1 % Basophils % 0 % Neutrophils # 9.1 H (1.3-7.7) k/uL Lymphocytes # 0.8 L (1.0-4.8) k/uL Monocytes # 0.5 (0-1.0) k/uL Eosinophils # 0.1 (0-0.7) k/uL Basophils # 0.0 (0-0.2) k/uL Hypochromasia Slight Poikilocytosis Slight Anisocytosis Slight Macrocytosis Slight PT 10.0 (9.0-12.0) sec INR 0.9 (<1.2) APTT 23.1 (22.0-30.0) sec Sodium 133 L (137-145) mmol/L Potassium 3.4 L (3.5-5.1) mmol/L Chloride 91 L (98-107) mmol/L Carbon Dioxide 34 H (22-30) mmol/L Anion Gap 8 mmol/L BUN 36 H (9-20) mg/dL Creatinine 2.89 H (0.66-1.25) mg/dL Est GFR (CKD-EPI)AfAm 24 (>60 ml/min/1.73 sqM) Est GFR (CKD-EPI)NonAf 21 (>60 ml/min/1.73 sqM) Glucose 337 H (74-99) mg/dL Plasma Lactic Acid Leobardo (0.7-2.0) mmol/L Calcium 9.0 (8.4-10.2) mg/dL Magnesium 1.7 (1.6-2.3) mg/dL Total Bilirubin 0.2 (0.2-1.3) mg/dL AST 18 (17-59) U/L ALT 12 (4-49) U/L Alkaline Phosphatase 91 (38-126) U/L Creatine Kinase 29 L (55-170) U/L Troponin I (0.000-0.034) ng/mL NT-Pro-B Natriuret Pep pg/mL Total Protein 5.7 L (6.3-8.2) g/dL Albumin 3.2 L (3.5-5.0) g/dL Coronavirus (PCR) (Not Detectd) 01/30/21 01/30/21 01/30/21 Range/Units 21:27 21:27 21:27 WBC (3.8-10.6) k/uL RBC (4.30-5.90) m/uL Hgb (13.0-17.5) gm/dL Hct (39.0-53.0) % MCV (80.0-100.0) fL MCH (25.0-35.0) pg MCHC (31.0-37.0) g/dL RDW (11.5-15.5) % Plt Count (150-450) k/uL MPV Neutrophils % % Lymphocytes % % Monocytes % % Eosinophils % % Basophils % % Neutrophils # (1.3-7.7) k/uL Lymphocytes # (1.0-4.8) k/uL Monocytes # (0-1.0) k/uL Eosinophils # (0-0.7) k/uL Basophils # (0-0.2) k/uL Hypochromasia Poikilocytosis Anisocytosis Macrocytosis PT (9.0-12.0) sec INR (<1.2) APTT (22.0-30.0) sec Sodium (137-145) mmol/L Potassium (3.5-5.1) mmol/L Chloride (98-107) mmol/L Carbon Dioxide (22-30) mmol/L Anion Gap mmol/L BUN (9-20) mg/dL Creatinine (0.66-1.25) mg/dL Est GFR (CKD-EPI)AfAm (>60 ml/min/1.73 sqM) Est GFR (CKD-EPI)NonAf (>60 ml/min/1.73 sqM) Glucose (74-99) mg/dL Plasma Lactic Acid Leobardo 1.7 (0.7-2.0) mmol/L Calcium (8.4-10.2) mg/dL Magnesium (1.6-2.3) mg/dL Total Bilirubin (0.2-1.3) mg/dL AST (17-59) U/L ALT (4-49) U/L Alkaline Phosphatase (38-126) U/L Creatine Kinase (55-170) U/L Troponin I <0.012 (0.000-0.034) ng/mL NT-Pro-B Natriuret Pep 5460 pg/mL Total Protein (6.3-8.2) g/dL Albumin (3.5-5.0) g/dL Coronavirus (PCR) (Not Detectd) 01/31/21 Range/Units 00:12 WBC (3.8-10.6) k/uL RBC (4.30-5.90) m/uL Hgb (13.0-17.5) gm/dL Hct (39.0-53.0) % MCV (80.0-100.0) fL MCH (25.0-35.0) pg MCHC (31.0-37.0) g/dL RDW (11.5-15.5) % Plt Count (150-450) k/uL MPV Neutrophils % % Lymphocytes % % Monocytes % % Eosinophils % % Basophils % % Neutrophils # (1.3-7.7) k/uL Lymphocytes # (1.0-4.8) k/uL Monocytes # (0-1.0) k/uL Eosinophils # (0-0.7) k/uL Basophils # (0-0.2) k/uL Hypochromasia Poikilocytosis Anisocytosis Macrocytosis PT (9.0-12.0) sec INR (<1.2) APTT (22.0-30.0) sec Sodium (137-145) mmol/L Potassium (3.5-5.1) mmol/L Chloride (98-107) mmol/L Carbon Dioxide (22-30) mmol/L Anion Gap mmol/L BUN (9-20) mg/dL Creatinine (0.66-1.25) mg/dL Est GFR (CKD-EPI)AfAm (>60 ml/min/1.73 sqM) Est GFR (CKD-EPI)NonAf (>60 ml/min/1.73 sqM) Glucose (74-99) mg/dL Plasma Lactic Acid Leobardo (0.7-2.0) mmol/L Calcium (8.4-10.2) mg/dL Magnesium (1.6-2.3) mg/dL Total Bilirubin (0.2-1.3) mg/dL AST (17-59) U/L ALT (4-49) U/L Alkaline Phosphatase (38-126) U/L Creatine Kinase (55-170) U/L Troponin I (0.000-0.034) ng/mL NT-Pro-B Natriuret Pep pg/mL Total Protein (6.3-8.2) g/dL Albumin (3.5-5.0) g/dL Coronavirus (PCR) Not Detected (Not Detectd) - EKG Data -: EKG Interpreted by Me (KG is sinus rhythm 70, NM 100 QRS 96 QTc 486) Disposition Clinical Impression: CHF (congestive heart failure), Chronic renal failure syndrome, Acute exacerbation of chronic obstructive pulmonary disease, Dizziness, Tremor, Restless leg syndrome, Community acquired bacterial pneumonia Disposition: ADMITTED IP TO THIS HOSP Condition: Good Is patient prescribed a controlled substance at d/c from ED?: No
[2021-01-30 21:40] LABS: Anisocytosis Slight; Basophils % (A) 0 %; Eosinophils # (A) 0.1 k/uL (0-0.7); Eosinophils % (A) 1 %; HCT 22.2 % (39.0-53.0); HGB 7.5 gm/dL (13.0-17.5); Hypochromasia Slight; Lymphocytes # (A) 0.8 k/uL (1.0-4.8); Lymphocytes % (A) 8 %; MCH 33.9 pg (25.0-35.0); MCHC 33.8 g/dL (31.0-37.0); MCV 100.2 fL (80.0-100.0); Macrocytosis Slight; Mean Platelet Volume 8.3; Monocytes # (A) 0.5 k/uL (0-1.0); Monocytes % (A) 4 %; Neutrophils # (A) 9.1 k/uL (1.3-7.7); Neutrophils % (A) 86 %; Platelet Count 394 k/uL (150-450); Poikilocytosis Slight; RBC 2.21 m/uL (4.30-5.90); WBC 10.7 k/uL (3.8-10.6)
[2021-01-30 21:50] LABS: Albumin 3.2 g/dL (3.5-5.0); Magnesium 1.7 mg/dL (1.6-2.3); Potassium 3.4 mmol/L (3.5-5.1); Total Bilirubin 0.2 mg/dL (0.2-1.3); Total Protein 5.7 g/dL (6.3-8.2)
[2021-01-30 21:52] LABS: INR 0.9 (<1.2); Partial Thromboplastin Time 23.1 sec (22.0-30.0)
--- NOTE | 2021-01-30 22:07 | XR ---
EXAMINATION TYPE: XR chest 1V portable DATE OF EXAM: 01/30/2021 COMPARISON: 01/23/2021 INDICATION: Short of breath TECHNIQUE: Single frontal view of the chest is obtained. FINDINGS: The heart size is normal. The pulmonary vasculature is normal. Right lower lobe infiltrate is present. Small right pleural effusion is present. Port is present on t he right with the tip in the right atrium. IMPRESSION: 1. Right lower lobe infiltrate with small right pleural effusion. Correlate for pneumonia. Follow-up to clearing is recommended.
[2021-01-30] MEDS ORDERED: diphenhydrAMINE 50 MG/ML 1 ML VIAL IVP STA (22:39)
[2021-01-30] MEDS ORDERED: LORazepam 2 MG/ML INJ IV STA (22:39)
[2021-01-30] MEDS ORDERED: DIAZEPAM 5 MG/ML 2 ML INJ IVP STA (23:50)
[2021-01-31] MEDS ORDERED: MORPHINE SULFATE 4 MG/ML SYRINGE IV PRN (00:14)
[2021-01-31] MEDS ORDERED: NALOXONE 0.4 MG/ML 1 ML VIAL IV PRN (00:14)
[2021-01-31] MEDS ORDERED: MORPHINE SULFATE 4 MG/ML SYRINGE IVP STA (00:14)
[2021-01-31] MEDS ORDERED: ONDANSETRON 4 MG/2 ML VIAL IVP PRN (00:14)
[2021-01-31] MEDS ORDERED: IPRATROPIUM-ALBUTEROL 3 ML NEB INHALATION PRN (00:15)
[2021-01-31] MEDS ORDERED: AZITHROMYCIN 500 MG in SODIUM CHLORIDE 0.9% 250 ML IVPB STA (00:19)
[2021-01-31] MEDS ORDERED: NITROGLYCERIN SL TABS 0.4 MG TAB SUBLINGUAL PRN (10:07)
[2021-01-31] MEDS ORDERED: SENNOSIDES-DOCUSATE SODIUM 1 EACH TAB PO PRN (10:07)
[2021-01-31] MEDS ORDERED: amLODIPine 10 MG TAB PO SCH (10:15)
[2021-01-31] MEDS: LORazepam 2 MG/ML INJ IV PRN ×2 (12:08→20:42)
--- NOTE | 2021-01-31 13:06 | P.HPIM ---
History of Present Illness Patient presents of-year-old male came in with complaints of shortness of breath and cough with sputum production. Patient Did Undergo Hemodialysis Yesterday and Patient Usual Schedule Is Saturday and Apparently1 lit Fluid Was Removed. Patient still makes some urine. Patient denied any clear orthopnea proximal nocturnal dyspnea. Patient denied any fever does have mild leukocytosis. Does have history of COPD, does not wear oxygen at home. Presently on 2 L of oxygen was on 4 L on admission. Chest x-ray showed infiltrate in the right lower lung wing can be fluid or pneumonia. Patient is undergoing hemodialysis today again. Review of Systems REVIEW OF SYSTEMS: CONSTITUTIONAL: No fever, no malaise, no fatigue. HEENT: No recent visual problems or hearing problems. Denied any sore throat. CARDIOVASCULAR: No chest pain, orthopnea, PND, no palpitations, no syncope. PULMONARY: As mentioned in HPI GASTROINTESTINAL: No diarrhea, no nausea, no vomiting, no abdominal pain. NEUROLOGICAL: No headaches, no weakness, no numbness. HEMATOLOGICAL: Denies any bleeding or petechiae. GENITOURINARY: Denies any burning micturition, frequency, or urgency. MUSCULOSKELETAL/RHEUMATOLOGICAL: Denies any joint pain, swelling, or any muscle pain. ENDOCRINE: Denies any polyuria or polydipsia. The rest of the 14-point review of systems is negative. Past Medical History Past Medical History: Coronary Artery Disease (CAD), Chest Pain / Angina, COPD, Diabetes Mellitus, GERD/Reflux, GI Bleed, Hyperlipidemia, Hypertension, Pneumonia, Renal Disease, Vascular Disorder Additional Past Medical History / Comment(s): Pt recently admitted to [facility] on 01/23/21 with symptomatic anemia/fall/transfusion. Other hx: Spouse states recent short periods of confusion but reorients easily, IDDM type II, lower GI bleed, benign colon polyps, spouse states micro bleeds in intestine are suspected, abdominal distention comes and goes which is nearly daily, partial SBO, chronic renal disease stage IV, iron anemia with iron transfusions (recent R [facility] chest mediport for infusions), PVD, stable lung nodules, chronic low back pain with bilateral sciatica, RLS, vertigo, insomnia, past agent orange exposure. Last Myocardial Infarction Date:: 03/2020 History of Any Multi-Drug Resistant Organisms: None Reported Past Surgical History: Cholecystectomy, Heart Catheterization Additional Past Surgical History / Comment(s): 03/25/20 R sublclavian mediport, R carotid stent done in [place], EGD/colonoscopyDecember 2016, endoscopic ca psule, fx lt wrist -sx re-set, aortagram, bilateral leg revascularizations/stents Past Anesthesia/Blood Transfusion Reactions: No Reported Reaction Additional Past Anesthesia/Blood Transfusion Reaction / Comment(s): Pt has had blood transfusion without reaction. Date of Last Stent Placement:: 04/27/20 Smoking Status: Current every day smoker - Past Family History Father History Unknown: Yes Mother Family Medical History: Cancer Additional Family Medical History / Comment(s): Mother from metastatic cancer pelvic origin. Medications and Allergies Home Medications Medication Instructions Recorded Confirmed Type Ergocalciferol (Vitamin D2) 50,000 unit PO Q14D 07/18/17 01/30/21 History [Vitamin D2] Simvastatin [Zocor] 40 mg PO HS 07/18/17 01/30/21 History Aspirin EC [Ecotrin Low Dose] 81 mg PO HS 02/10/18 01/30/21 History Ferrous Sulfate [Iron (65 MG 325 mg PO TID 02/10/18 01/30/21 History Elemental)] Cyanocobalamin [Vitamin B-12] 1,000 mcg PO DAILY 09/23/18 01/30/21 History glipiZIDE [Glucotrol] 5 mg PO BID 05/22/19 01/30/21 History calcitrioL [Rocaltrol] 0.5 mcg PO SUWE 09/17/19 01/30/21 History Omeprazole [PriLOSEC] 20 mg PO HS 09/25/19 01/30/21 History Clopidogrel [Plavix] 75 mg PO HS 04/18/20 01/30/21 History Isosorbide Mononitrate ER [Imdur] 60 mg PO BID #60 tab.er.24h 04/21/20 01/30/21 Rx amLODIPine [Norvasc] 10 mg PO DAILY #30 tab 04/28/20 01/30/21 Rx hydrALAZINE HCL [Apresoline] 25 mg PO TID 05/19/20 01/30/21 History Metoprolol Tartrate [Lopressor] 25 mg PO TID 07/13/20 01/30/21 History DULoxetine HCL [Cymbalta] 20 mg PO DAILY 10/27/20 01/30/21 History Ascorbic Acid [Vitamin C] 500 mg PO DAILY 12/19/20 01/30/21 History Folic Acid-Vit B Complex-Vit C 1 cap PO DAILY 12/19/20 01/30/21 History [Nephrocaps] Melatonin 5 mg PO HS 12/19/20 01/30/21 History Sennosides-Docusate Sodium 2 tab PO TID PRN 12/31/20 01/30/21 History [Senokot-S] Insulin Glargine [Lantus] 15 unit SQ HS #0 01/03/21 01/30/21 Rx Darbepoetin Joel [Aranesp] 60 mcg IV Q7D 01/23/21 01/30/21 History Gabapentin [Neurontin] 100 mg PO TID 01/23/21 01/30/21 History Loratadine 10 mg PO DAILY 01/23/21 01/30/21 History Nitroglycerin Sl Tabs [Nitrostat] 0.4 mg SL Q5M PRN 01/23/21 01/30/21 History rOPINIRole HCL [Requip] 0.5 mg PO BID 01/23/21 01/30/21 History Allergies Allergy/AdvReac Type Severity Reaction Status Date / Time Iodinated Contrast Media AdvReac CAN'T Verified 01/30/21 23:09 TAKE, RENAL DISEASE Iodine and Iodide Containing AdvReac CAN'T Verified 01/30/21 23:09 Produc TAKE, RENAL DISEASE Physical Exam Vitals: Vital Signs Temp Pulse Resp BP Pulse Ox 01/31/21 11:00 94 16 118/55 96 01/31/21 07:49 99 01/31/21 07:48 93 01/31/21 07:40 79 100 01/31/21 07:18 75 129/59 01/31/21 05:42 81 18 130/62 100 01/31/21 01:55 74 16 110/60 97 01/31/21 00:09 78 18 137/96 97 01/30/21 22:40 94 30 H 149/63 93 L 01/30/21 22:31 76 01/30/21 22:15 72 01/30/21 21:11 97.6 F 74 20 146/54 86 L Intake and Output 01/30/21 01/31/21 01/31/21 22:59 06:59 14:59 Other: Weight 83.915 kg 83.915 kg PHYSICAL EXAMINATION: GENERAL: The patient is alert and oriented x3, not in any acute distress. Well developed, well nourished. HEENT: Pupils are round and equally reacting to light. EOMI. No scleral icterus. No conjunctival pallor. Normocephalic, atraumatic. No pharyngeal erythema. No thyromegaly. CARDIOVASCULAR: S1 and S2 present. No murmurs, rubs, or gallops. PULMONARY: Expiratory wheezing and some rhonchi bilaterally ABDOMEN: Soft, nontender, nondistended, normoactive bowel sounds. No palpable organomegaly. MUSCULOSKELETAL: No joint swelling or deformity. EXTREMITIES: No cyanosis, clubbing, or pedal edema. NEUROLOGICAL: Gross neurological examination did not reveal any focal deficits. SKIN: No rashes. Results CBC & Chem 7: 01/30/21 21:27 01/30/21 21:27 Labs: Abnormal Lab Results - Last 24 Hours (Table) 01/30/21 01/30/21 Range/Units 21:27 21:27 WBC 10.7 H (3.8-10.6) k/uL RBC 2.21 L (4.30-5.90) m/uL Hgb 7.5 L (13.0-17.5) gm/dL Hct 22.2 L (39.0-53.0) % MCV 100.2 H (80.0-100.0) fL RDW 17.0 H (11.5-15.5) % Neutrophils # 9.1 H (1.3-7.7) k/uL Lymphocytes # 0.8 L (1.0-4.8) k/uL Sodium 133 L (137-145) mmol/L Potassium 3.4 L (3.5-5.1) mmol/L Chloride 91 L (98-107) mmol/L Carbon Dioxide 34 H (22-30) mmol/L BUN 36 H (9-20) mg/dL Creatinine 2.89 H (0.66-1.25) mg/dL Glucose 337 H (74-99) mg/dL Creatine Kinase 29 L (55-170) U/L Total Protein 5.7 L (6.3-8.2) g/dL Albumin 3.2 L (3.5-5.0) g/dL Thrombosis Risk Factor Assmnt - Choose All That Apply Any of the Below Risk Factors Present?: Yes Each Factor Represents 1 point: Abnormal pulmonary function (COPD), Heart failure (<1month) Other Risk Factors: Yes Each Risk Factor Represents 2 Points: Age 61-74 years Other congenital or acquired thrombophilia - If yes, enter type in comment: No Thrombosis Risk Factor Assessment Total Risk Factor Score: 4 Thrombosis Risk Factor Assessment Level: Moderate Risk Assessment and Plan Plan: -Acute hypoxic respiratory failure etiology is probably pulmonary edema from end-stage renal disease. Although cannot completely rule out pneumonia patient will be continued on antibiotics for now. Patient will be started on inhaled steroids and inhalation treatments -COPD with mild acute exacerbation - possible pneumonia End-stage renal disease more dialysis dependent, nephrology evaluated the patient -Type 2 diabetes mellitus with sugars are elevated uncontrolled continue with present regimen titrate depending on his blood sugars -Hypertension next and-hyperlipidemia -Peripheral vascular disease -Cerebral vascular disease with carotid stents in the past - continued nicotine use: Counseling was provided
--- NOTE | 2021-01-31 15:19 | CONS ---
CONSULTATION REASON FOR CONSULT: End-stage renal disease. HISTORY OF PRESENT ILLNESS: The patient is a 70-year-old male with end-stage renal disease, on home hemodialysis, admitted to the hospital with complaints of increased weakness and shortness of breath. Patient's states that he developed significant shortness of breath last night which did not improve with home oxygen that he wears sometimes. He has been under training for home hemo and is being dialyzed 4 days a week. He had about 1 to 1-1/2 L of fluid removed yesterday. He did have a treatment yesterday. His chest x-ray showed right lower lobe infiltrate. He did not have any significant fever. He does have history of chronic obstructive pulmonary disease. Blood pressure has been about 118-130 mmHg systolic. O2 sats 96-100 percent on 2-4 L. PAST MEDICAL HISTORY: End-stage renal disease, CKD mineral bone disorder, coronary artery disease, COPD, type 2 diabetes, gastroesophageal reflux disease, hyperlipidemia, history of GI bleed, colonic polyp, bowel obstruction, vertigo, lung nodules which are stable, chronic back pain. PAST SURGICAL HISTORY: Cholecystectomy, cardiac catheterization, left AV fistula for a left arm AV graft, EGD, colonoscopy, carotid stent placement. SOCIAL HISTORY: Positive for smoking. No history of drug abuse or alcohol abuse. MEDICATIONS: Include vitamin D, Zocor, aspirin, B12, Glucotrol, Rocaltrol, Prilosec, Plavix, Norvasc, Imdur, hydralazine, Lopressor, Cymbalta, vitamin C, melatonin, insulin, Aranesp, Neurontin, loratadine, Requip. ALLERGIES: ALLERGIES INCLUDE IV CONTRAST, mostly intolerance. REVIEW OF SYSTEMS: As per HPI. Other systems negative. EXAMINATION: Comfortable, awake. He is not in any acute distress. He is sleepy and arousable but goes back to sleep. Blood pressure 118/55, heart rate 94 per minute. He is afebrile. Examination of the heart S1, S2. Examination of the lungs, bilateral breath sounds are heard. Abdomen is soft, nontender. Examination of lower extremities shows no evidence of edema. HUMAN RESOURCES ASSOCIATE exam grossly intact. LAB: Show hemoglobin 7.5, sodium 133, potassium 3.4, CO2 is 34, BUN 36, creatinine 2.89. ASSESSMENT: 1. End stage renal disease maintained on hemodialysis, currently under training for home hemodialysis receiving treatment 4 times a week. Usual UF 1 to 1-1/2 L. We will maintain the patient on a TTS schedule while he is hospitalized. No acute indication for dialysis today. No evidence of fluid overload. 2. Right lower lobe infiltrate, possible pneumonia. 3. Anemia, no active bleeding noted. Previous history of GI bleed and colonic polyps. Check iron studies and maintain Aranesp. 4. History of hypertension. Blood pressure is on the lower side. I will hold off on the Norvasc. 5. Chronic kidney disease mineral bone disorder. Continue with the calcitriol. PLAN: Check iron profile. Continue empiric antibiotics and steroids. Hold Norvasc for now. Thank you for this consultation. I will continue to follow the patient with you during his hospitalization. MMODL / IJN: [id number] /
[2021-01-31 17:32] LABS: Glucose,Whole Blood 374 mg/dL (75-99)
[2021-01-31] MEDS: FERROUS SULFATE 325 MG TAB PO SCH ×2 (17:50→20:41)
[2021-01-31] MEDS: METOPROLOL TARTRATE 25 MG TAB PO SCH ×2 (17:50→20:41)
[2021-01-31] MEDS: GABAPENTIN 100 MG CAP PO SCH ×2 (18:03→20:41)
[2021-01-31 20:38] LABS: Glucose,Whole Blood 414 mg/dL (75-99)
[2021-01-31] MEDS: INSULIN ASPART (NovoLOG) 100 UNIT/ML VIAL SQ SCH (20:39)
[2021-01-31] MEDS: ATORVASTATIN 20 MG TAB PO SCH (20:40)
[2021-01-31] MEDS: glipiZIDE 5 MG TAB PO SCH (20:41)
[2021-01-31] MEDS: ISOSORBIDE MONONITRATE ER 60 MG TAB.ER.24H PO SCH (20:41)
[2021-01-31] MEDS: PANTOPRAZOLE 40 MG TABLET PO SCH (20:41)
[2021-01-31] MEDS: CLOPIDOGREL 75 MG TAB PO SCH (20:41)
[2021-01-31] MEDS: ASPIRIN 81 MG PO SCH (20:41)
[2021-01-31] MEDS: MELATONIN 5 MG TABLET PO PRN (20:41)
[2021-01-31] MEDS ORDERED: INSULIN DETEMIR (LEVEMIR) 100 UNIT/ML SYR SQ SCH (21:00)
[2021-01-31] MEDS: SYMBICORT 160-4.5 MCG INHALER INHALATION SCH (21:48)
[2021-02-01] MEDS: AZITHROMYCIN 500 MG in SODIUM CHLORIDE 0.9% 250 ML IVPB SCH (00:57)
[2021-02-01 06:58] LABS: Glucose,Whole Blood 139 mg/dL (75-99)
[2021-02-01] MEDS: METOPROLOL TARTRATE 25 MG TAB PO SCH ×3 (08:07→19:43)
[2021-02-01] MEDS: glipiZIDE 5 MG TAB PO SCH ×2 (08:07→19:44)
[2021-02-01] MEDS: GABAPENTIN 100 MG CAP PO SCH ×3 (08:07→19:43)
[2021-02-01] MEDS: CYANOCOBALAMIN 500 MCG TAB PO SCH (08:07)
[2021-02-01] MEDS: ISOSORBIDE MONONITRATE ER 60 MG TAB.ER.24H PO SCH ×2 (08:07→19:44)
[2021-02-01] MEDS: LORATADINE 10 MG TAB PO SCH (08:07)
[2021-02-01] MEDS: DULoxetine HCL 20 MG CAPSULE.DR PO SCH (08:08)
[2021-02-01] MEDS: FERROUS SULFATE 325 MG TAB PO SCH ×3 (08:08→19:44)
[2021-02-01] MEDS: FOLIC ACID-VIT B COMPLEX-VIT C 1 CAP PO SCH (08:09)
[2021-02-01] MEDS: INSULIN ASPART (NovoLOG) 100 UNIT/ML VIAL SQ SCH ×5 (08:09→20:16)
[2021-02-01] MEDS: SYMBICORT 160-4.5 MCG INHALER INHALATION SCH ×3 (09:51→19:39)
[2021-02-01 11:23] LABS: Glucose,Whole Blood 261 mg/dL (75-99)
[2021-02-01 11:52] LABS: HCT 20.9 % (39.6-50.0); HGB 6.4 g/dL (13.0-17.0); MCH 33.5 pg (27.0-32.0); MCHC 30.6 g/dL (32.0-37.0); MCV 109.4 fL (80.0-97.0); Platelet Count 395 X 10*3/uL (140-440); RBC 1.91 X 10*6/uL (4.40-5.60); RDW 17.7 % (11.5-14.5); WBC 19.42 X 10*3/uL (4.50-10.00)
[2021-02-01] MEDS ORDERED: predniSONE 20 MG TAB PO STA (12:03)
[2021-02-01 13:13] LABS: African American GFR (CKD) 25.2 (60.0-200.0); Anion Gap 10.6 mmol/L (4.00-12.00); BUN/Creat Ratio 14.29 Ratio (12.00-20.00); Calcium 8.6 mg/dL (8.7-10.3); Carbon Dioxide 30.4 mmol/L (21.6-31.8); Non-African American GFR(CKD) 21.7 (60.0-200.0); Potassium 3.7 mmol/L (3.5-5.5)
--- NOTE | 2021-02-01 13:44 | PN ---
PROGRESS NOTE Patient is seen for followup for end-stage renal disease. He was dialyzed yesterday. Patient tolerated his treatment well. We had about 2 L of ultrafiltration. Currently patient is comfortable. Respiratory status is improved. He is maintained on antibiotics as well as steroids for possible pneumonia and/or COPD exacerbation. PHYSICAL EXAMINATION: On examination today, blood pressure 110/48, heart rate 62 per minute. He is afebrile. Examination of the heart S1, S2. Examination of the lungs, bilateral breath sounds are heard. Abdomen is soft, nontender. Examination of lower extremities shows no evidence of edema. UNIX ANALYST exam grossly intact. Patient moving all 4 extremities. LAB: Show today hemoglobin 6.4 g/dL. ASSESSMENT: 1. End-stage renal disease, on hemodialysis currently receiving training for home hemodialysis. We will maintain him on a Saturday, , Saturday schedule during his hospitalization. 2. Anemia with significant drop in hemoglobin, rule out gastrointestinal bleed. Transfuse 1 unit packed RBCs and check stool for occult blood. Maintain Aranesp as well. 3. Type 2 diabetes. 4. Increased weakness and lethargy, possibly related to severe anemia. 5. Acute hypoxic respiratory failure secondary to chronic obstructive pulmonary disease exacerbation, pneumonia. PLAN: Hemodialysis in a.m. Add Aranesp. Check stool for occult blood. Transfuse packed RBCs. MMODL / IJN: [id number] /
[2021-02-01] MEDS ORDERED: DARBEPOETIN ALFA 40 MCG/0.4 ML SYRINGE SQ ONE (14:00)
--- NOTE | 2021-02-01 14:42 | P.PN ---
Subjective Patient presents of-year-old male came in with complaints of shortness of breath and cough with sputum production. Patient Did Undergo Hemodialysis Yesterday and Patient Usual Schedule Is Saturday and Apparently1 lit Fluid Was Removed. Patient still makes some urine. Patient denied any clear orthopnea proximal nocturnal dyspnea. Patient denied any fever does have mild leukocytosis. Does have history of COPD, does not wear oxygen at home. Presently on 2 L of oxygen was on 4 L on admission. Chest x-ray showed infiltrate in the right lower lung wing can be fluid or pneumonia. Patient is undergoing hemodialysis today again. 02/01/2021 Patient can use to have some wheezing on exam and the patient was on antibiotics patient is undergoing dialysis tomorrow patient a drop in hemoglobin without any clear evidence of clinical GI bleed. Patient will be monitored overnight will be transfused 1 unit of PRBC. Constitutional: Denied any fatigue denied any fever. Cardio vascular: denied any chest pain, palpitations Gastrointestinal denied any nausea vomiting Pulmonary: Denied any shortness of breath cough Neurologic denied any new focal deficits All inpatient medications were reviewed and appropriate changes in these medications as dictated in the interval history and assessment and plan. Objective - Vital Signs Vital signs: Vital Signs Temp 98.3 F 02/01/21 14:33 Pulse 73 02/01/21 14:33 Resp 18 02/01/21 14:33 BP 120/48 02/01/21 14:33 Pulse Ox 100 02/01/21 14:33 Intake & Output 01/31/21 02/01/21 02/01/21 18:59 06:59 18:59 Output Total 1999 -1999 Weight 83.915 kg Output: Hemodialysis 1999 Other: Voiding Method Toilet # Voids 2 - Exam PHYSICAL EXAMINATION: GENERAL: The patient is alert and oriented x3, not in any acute distress. Well developed, well nourished. HEENT: Pupils are round and equally reacting to light. EOMI. No scleral icterus. No conjunctival pallor. Normocephalic, atraumatic. No pharyngeal erythema. No thyromegaly. CARDIOVASCULAR: S1 and S2 present. No murmurs, rubs, or gallops. PULMONARY: Expiratory wheezing and some rhonchi bilaterally ABDOMEN: Soft, nontender, nondistended, normoactive bowel sounds. No palpable organomegaly. MUSCULOSKELETAL: No joint swelling or deformity. EXTREMITIES: No cyanosis, clubbing, or pedal edema. NEUROLOGICAL: Gross neurological examination did not reveal any focal deficits. SKIN: No rashes. - Labs CBC & Chem 7: 02/01/21 06:11 02/01/21 06:11 Labs: Abnormal Lab Results - Last 24 Hours (Table) 01/31/21 01/31/21 02/01/21 Range/Units 17:31 20:34 06:11 WBC 19.42 H (4.50-10.00) X 10*3/uL RBC 1.91 L (4.40-5.60) X 10*6/uL Hgb 6.4 L* (13.0-17.0) g/dL Hct 20.9 L (39.6-50.0) % MCV 109.4 H (80.0-97.0) fL MCH 33.5 H (27.0-32.0) pg MCHC 30.6 L (32.0-37.0) g/dL RDW 17.7 H (11.5-14.5) % Absolute Nucleated RBC 0.03 H (0.00-0.00) X 10*3/uL NRBC/100 WBC Diff 0.2 H (0.0-0.0) /100 WBCS BUN (9.0-27.0) mg/dL Creatinine (0.6-1.5) mg/dL Est GFR (CKD-EPI)AfAm (60.0-200.0) Est GFR (CKD-EPI)NonAf (60.0-200.0) Glucose (70-110) mg/dL POC Glucose (mg/dL) 374 H 414 H (75-99) mg/dL Calcium (8.7-10.3) mg/dL Crossmatch 02/01/21 02/01/21 02/01/21 Range/Units 06:11 06:56 11:22 WBC (4.50-10.00) X 10*3/uL RBC (4.40-5.60) X 10*6/uL Hgb (13.0-17.0) g/dL Hct (39.6-50.0) % MCV (80.0-97.0) fL MCH (27.0-32.0) pg MCHC (32.0-37.0) g/dL RDW (11.5-14.5) % Absolute Nucleated RBC (0.00-0.00) X 10*3/uL NRBC/100 WBC Diff (0.0-0.0) /100 WBCS BUN 40.0 H (9.0-27.0) mg/dL Creatinine 2.8 H (0.6-1.5) mg/dL Est GFR (CKD-EPI)AfAm 25.2 L (60.0-200.0) Est GFR (CKD-EPI)NonAf 21.7 L (60.0-200.0) Glucose 126 H (70-110) mg/dL POC Glucose (mg/dL) 139 H 261 H (75-99) mg/dL Calcium 8.6 L (8.7-10.3) mg/dL Crossmatch 02/01/21 Range/Units 12:25 WBC (4.50-10.00) X 10*3/uL RBC (4.40-5.60) X 10*6/uL Hgb (13.0-17.0) g/dL Hct (39.6-50.0) % MCV (80.0-97.0) fL MCH (27.0-32.0) pg MCHC (32.0-37.0) g/dL RDW (11.5-14.5) % Absolute Nucleated RBC (0.00-0.00) X 10*3/uL NRBC/100 WBC Diff (0.0-0.0) /100 WBCS BUN (9.0-27.0) mg/dL Creatinine (0.6-1.5) mg/dL Est GFR (CKD-EPI)AfAm (60.0-200.0) Est GFR (CKD-EPI)NonAf (60.0-200.0) Glucose (70-110) mg/dL POC Glucose (mg/dL) (75-99) mg/dL Calcium (8.7-10.3) mg/dL Crossmatch See Detail Microbiology - Last 24 Hours (Table) 01/31/21 01:00 Blood Culture - Preliminary Blood No Growth after 24 hours 01/31/21 01:15 Blood Culture - Preliminary Blood No Growth after 24 hours Assessment and Plan Plan: -Acute hypoxic respiratory failure etiology is probably pulmonary edema from end-stage renal disease. Although cannot completely rule out pneumonia patient will be continued on antibiotics for now. Patient will be started on inhaled steroids and inhalation treatments, patient did have improvement in his respiratory status. Patient will be continued on treatment for come in today quite pneumonia. -COPD with mild acute exacerbation: Patient is still wheezing quite a bit will be given a dose of prednisone will increase dose of long-acting insulin - possible pneumonia End-stage renal disease more dialysis dependent, nephrology evaluated the patient -Type 2 diabetes mellitus with sugars are elevated uncontrolled increase long- acting insulin -Hypertension -hyperlipidemia -Peripheral vascular disease -Cerebral vascular disease with carotid stents in the past - continued nicotine use: Counseling was provided
[2021-02-01] MEDS: LORazepam 2 MG/ML INJ IV PRN (16:08)
[2021-02-01 16:28] LABS: Glucose,Whole Blood 291 mg/dL (75-99)
[2021-02-01] MEDS: ATORVASTATIN 20 MG TAB PO SCH (19:44)
[2021-02-01] MEDS: PANTOPRAZOLE 40 MG TABLET PO SCH (19:44)
[2021-02-01] MEDS: CLOPIDOGREL 75 MG TAB PO SCH (19:44)
[2021-02-01] MEDS: ASPIRIN 81 MG PO SCH (19:44)
[2021-02-01] MEDS: MELATONIN 5 MG TABLET PO PRN (19:44)
[2021-02-01 20:10] LABS: Glucose,Whole Blood 408 mg/dL (75-99)
[2021-02-01] MEDS ORDERED: INSULIN DETEMIR (LEVEMIR) 100 UNIT/ML SYR SQ SCH (21:00)
[2021-02-02] MEDS: AZITHROMYCIN 500 MG in SODIUM CHLORIDE 0.9% 250 ML IVPB SCH (03:02)
[2021-02-02] MEDS: GABAPENTIN 100 MG CAP PO SCH ×2 (04:46→15:54)
[2021-02-02 06:58] LABS: Glucose,Whole Blood 199 mg/dL (75-99)
[2021-02-02] MEDS: FOLIC ACID-VIT B COMPLEX-VIT C 1 CAP PO SCH (07:30)
[2021-02-02] MEDS: DULoxetine HCL 20 MG CAPSULE.DR PO SCH (07:30)
[2021-02-02] MEDS: METOPROLOL TARTRATE 25 MG TAB PO SCH ×2 (07:31→15:54)
[2021-02-02] MEDS: CYANOCOBALAMIN 500 MCG TAB PO SCH (07:31)
[2021-02-02] MEDS: glipiZIDE 5 MG TAB PO SCH (07:31)
[2021-02-02] MEDS: LORATADINE 10 MG TAB PO SCH (07:31)
[2021-02-02] MEDS: FERROUS SULFATE 325 MG TAB PO SCH ×2 (07:31→15:54)
[2021-02-02] MEDS: INSULIN ASPART (NovoLOG) 100 UNIT/ML VIAL SQ SCH ×2 (07:31→12:37)
[2021-02-02] MEDS: ISOSORBIDE MONONITRATE ER 60 MG TAB.ER.24H PO SCH (07:31)
[2021-02-02] MEDS: SYMBICORT 160-4.5 MCG INHALER INHALATION SCH (08:14)
[2021-02-02 11:14] LABS: Glucose,Whole Blood 195 mg/dL (75-99)
[2021-02-02 11:35] LABS: HCT 24.2 % (39.6-50.0); HGB 7.5 g/dL (13.0-17.0); MCH 33.2 pg (27.0-32.0); MCV 107.1 fL (80.0-97.0); Mean Platelet Volume 10.8 fL (9.5-12.2); Platelet Count 370 X 10*3/uL (140-440); RBC 2.26 X 10*6/uL (4.40-5.60); RDW 16.9 % (11.5-14.5); WBC 16.06 X 10*3/uL (4.50-10.00)
--- NOTE | 2021-02-02 13:58 | PN ---
PROGRESS NOTE Patient is seen for followup for end-stage renal disease. This morning he is comfortable, denies any significant complaints. Hemoglobin was up to 7.5 g/dL. No active bleeding noted. The patient did not get packed RBCs yesterday. He is currently not on any oxygen. PHYSICAL EXAMINATION: On examination this morning, blood pressure 142/55, heart rate 79 per minute, he is afebrile. Examination of the heart S1, S2. Examination of the lungs, bilateral breath sounds are heard. Abdomen is soft, nontender. Examination of lower extremities shows no evidence of edema. MANAGER FURNITURE exam grossly intact. LAB: Show hemoglobin 7.5 g/dL today. Yesterday potassium was 3.7. ASSESSMENT: 1. End-stage renal disease, on hemodialysis, currently being trained for home hemodialysis as outpatient. We will maintain him on a Saturday, , Saturday schedule. 2. Anemia with no active bleeding noted status post packed RBCs. Maintained on Aranesp. Will have GI evaluate as outpatient if patient continues to be significantly anemic. 3. Acute hypoxic respiratory failure on admission, currently improved. Possible pneumonia noted on chest x-ray. Patient is also maintained on steroids for possible COPD exacerbation. He did not appear to have significant volume overload. 4. Chronic kidney disease mineral bone disorder. PLAN: Hemodialysis today and possible discharge post dialysis today. MMODL / IJN: [id number] /
[2021-02-02 14:04] LABS: African American GFR (CKD) 22.2 (60.0-200.0); Anion Gap 10.2 mmol/L (4.00-12.00); BUN/Creat Ratio 16.45 Ratio (12.00-20.00); Calcium 8.4 mg/dL (8.7-10.3); Carbon Dioxide 25.8 mmol/L (21.6-31.8); Non-African American GFR(CKD) 19.2 (60.0-200.0); Potassium 3.6 mmol/L (3.5-5.5)
--- NOTE | 2021-02-02 14:35 | P.PN ---
Subjective Progress Note Date: 02/02/21 Patient presents of-year-old male came in with complaints of shortness of breath and cough with sputum production. Patient Did Undergo Hemodialysis Yesterday and Patient Usual Schedule Is Saturday and Apparently1 lit Fluid Was Removed. Patient still makes some urine. Patient denied any clear orthopnea proximal nocturnal dyspnea. Patient denied any fever does have mild leukocytosis. Does have history of COPD, does not wear oxygen at home. Presently on 2 L of oxygen was on 4 L on admission. Chest x-ray showed infiltrate in the right lower lung wing can be fluid or pneumonia. Patient is undergoing hemodialysis today again. 02/01/2021 Patient can use to have some wheezing on exam and the patient was on antibiotics patient is undergoing dialysis tomorrow patient a drop in hemoglobin without any clear evidence of clinical GI bleed. Patient will be monitored overnight will be transfused 1 unit of PRBC. 02/02/2021 Patient is seen and evaluated in follow-up this morning with no acute overnight issues. Patient maintained on IV and oral antibiotics and will continue for the possibility of a developing pneumonia. Patient received a unit of PRBCs yesterday and hemoglobin is 7.5 today. White blood count trending down at 16.06 and patient did receive a dose of prednisone. Wheezing improved on exam. Sodium is 138 with a potassium of 3.6 current creatinine is 3.1 and blood sugars improved on current dose and will continue. Patient states he is eating and tolerating with no nausea or vomiting noted. Patient denies any chest pain or palpitations. Patient denies shortness of breath and is to receive dialysis today and anticipating going home. Constitutional: Denied any fatigue denied any fever. Cardio vascular: denied any chest pain, palpitations Gastrointestinal denied any nausea vomiting Pulmonary: Denied any shortness of breath cough Neurologic denied any new focal deficits All inpatient medications were reviewed and appropriate changes in these med ications as dictated in the interval history and assessment and plan. Objective - Vital Signs Vital signs: Vital Signs Temp 98.0 F 02/02/21 12:25 Pulse 70 02/02/21 12:25 Resp 18 02/02/21 12:25 BP 140/69 02/02/21 12:25 Pulse Ox 97 02/02/21 07:38 Intake & Output 02/01/21 02/02/21 02/02/21 18:59 06:59 18:59 Intake Total 0 310 Output Total 0 Balance 0 310 0 Weight 81 kg Intake: Blood Product 0 310 Rc As-1 Unit 0 310 [id number] Output: Hemodialysis 0 Other: Voiding Method Toilet # Voids 1 1 1 - Exam GENERAL: The patient is alert and oriented x3, not in any acute distress. Well developed, well nourished. HEENT: Pupils are round and equally reacting to light. EOMI. No scleral icterus. No conjunctival pallor. Normocephalic, atraumatic. No pharyngeal erythema. No thyromegaly. CARDIOVASCULAR: S1 and S2 present. No murmurs, rubs, or gallops. PULMONARY: Diminished breath sounds bilaterally with some scattered rhonchi noted with no wheezing noted on exam. ABDOMEN: Soft, nontender, nondistended, normoactive bowel sounds. No palpable organomegaly. MUSCULOSKELETAL: No joint swelling or deformity. EXTREMITIES: No cyanosis, clubbing, or pedal edema. NEUROLOGICAL: Gross neurological examination did not reveal any focal deficits. SKIN: No rashes. - Labs CBC & Chem 7: 02/02/21 07:04 02/02/21 07:04 Labs: Abnormal Lab Results - Last 24 Hours (Table) 02/01/21 02/01/21 02/01/21 Range/Units 12:25 16:26 20:07 WBC (4.50-10.00) X 10*3/uL RBC (4.40-5.60) X 10*6/uL Hgb (13.0-17.0) g/dL Hct (39.6-50.0) % MCV (80.0-97.0) fL MCH (27.0-32.0) pg MCHC (32.0-37.0) g/dL RDW (11.5-14.5) % Absolute Nucleated RBC (0.00-0.00) X 10*3/uL NRBC/100 WBC Diff (0.0-0.0) /100 WBCS POC Glucose (mg/dL) 291 H 408 H (75-99) mg/dL Crossmatch See Detail 02/02/21 02/02/21 02/02/21 Range/Units 06:56 07:04 11:13 WBC 16.06 H (4.50-10.00) X 10*3/uL RBC 2.26 L (4.40-5.60) X 10*6/uL Hgb 7.5 L (13.0-17.0) g/dL Hct 24.2 L (39.6-50.0) % MCV 107.1 H (80.0-97.0) fL MCH 33.2 H (27.0-32.0) pg MCHC 31.0 L (32.0-37.0) g/dL RDW 16.9 H (11.5-14.5) % Absolute Nucleated RBC 0.02 H (0.00-0.00) X 10*3/uL NRBC/100 WBC Diff 0.1 H (0.0-0.0) /100 WBCS POC Glucose (mg/dL) 199 H 195 H (75-99) mg/dL Crossmatch Microbiology - Last 24 Hours (Table) 01/31/21 01:00 Blood Culture - Preliminary Blood No Growth after 48 hours 01/31/21 01:15 Blood Culture - Preliminary Blood No Growth after 48 hours Assessment and Plan Assessment: -Acute hypoxic respiratory failure etiology is probably pulmonary edema from end-stage renal disease. Although cannot completely rule out pneumonia patient will be continued on antibiotics for now. Will continue with breathing inhalational treatments and wheezing improved on today's exam. White blood count remains elevated and will continue with IV antibiotics in the form of ceftriaxone along with oral Zithromax. -Chest pain with elevated troponin. Troponin 0.165 and serial troponins ordered. cardiology consulted and pending at this time. Per nursing staff patient apparently developed chest pain and chest tightness during dialysis and ordered EKG and serial troponins. Most likely related to chronic kidney disease although will have cardiology evaluate the patient. Patient was also placed on telemetry. -COPD with mild acute exacerbation -possible pneumonia as noted on chest x-ray. White blood count Count slightly elevated although trending down and 16.06 -Anemia most likely of chronic kidney disease, hemoglobin is 7.5 today status post 1 unit of PRBCs with no active bleeding noted. Patient is maintained on Aranesp -End-stage renal disease; hemodialysis dependent, nephrology following and patient received dialysis again today and continue Saturday//Saturday schedule -Type 2 diabetes mellitus with elevated uncontrolled blood sugars and will continue with increase long-acting insulin -Hypertension -hyperlipidemia -Peripheral vascular disease -Cerebral vascular disease with carotid stents in the past -continued nicotine use: Counseling was provided
[2021-02-02 15:06] VITALS: BP 143/60; PULSE 85; RESP 17; TEMP 98.1
[2021-02-02 16:49] LABS: Glucose,Whole Blood 236 mg/dL (75-99)
[2021-02-03] MEDS ORDERED: AZITHROMYCIN 500 MG TAB PO SCH (09:00)
--- NOTE | 2021-02-03 09:07 | P.DS ---
Providers Date of admission: 01/31/21 14:03 Expected date of discharge: 02/02/21 Attending physician: Aida Ndiaye Consults: 01/31/21 00:14 Consult Physician Routine Consulting Provider: Yulissa Ivory Consult Reason/Comments: dialysis Do you want consulting provider notified?: Yes 02/02/21 14:14 Consult Physician Routine Consulting Provider: Mikel Galdamez Consult Reason/Comments: chest pain, elevated troponin, abnormal EKG Do you want consulting provider notified?: Yes Primary care physician: [facility] Hospital Course: Final Diagnosis -Acute hypoxic respiratory failure etiology is probably pulmonary edema from end-stage renal disease. -Chest pain with elevated troponin. Most likely secondary to chronic kidney disease. Troponin 0.165 and trending down and chest pain resolved -COPD with mild acute exacerbation -possible pneumonia as noted on chest x-ray -Anemia most likely of chronic kidney disease -End-stage renal disease; hemodialysis dependent -Type 2 diabetes mellitus with elevated uncontrolled blood sugars -Hypertension -hyperlipidemia -Peripheral vascular disease -Cerebral vascular disease with carotid stents in the past -continued nicotine use: Counseling was provided Discharge disposition Patient is being discharged in a stable condition with guarded prognosis to home. Patient will follow-up with [facility] in the outpatient setting upon discharge. Patient is to continue with hemodialysis as scheduled and Saturday//Saturday and close follow-up with nephrology outpatient. Total time taken is greater than 35 minutes. Hospital course Patient presents of-year-old male came in with complaints of shortness of breath and cough with sputum production. Patient Did Undergo Hemodialysis Yesterday and Patient Usual Schedule Is Saturday and Apparently1 lit Fluid Was Removed. Patient still makes some urine. Patient denied any clear orthopnea proximal nocturnal dyspnea. Patient denied any fever does have mild leukocytosis. Does have history of COPD, does not wear oxygen at home. Presently on 2 L of oxygen was on 4 L on admission. Chest x-ray showed infiltrate in the right lower lung wing can be fluid or pneumonia. Patient is undergoing hemodialysis today again. 02/01/2021 Patient can use to have some wheezing on exam and the patient was on antibiotics patient is undergoing dialysis tomorrow patient a drop in hemoglobin without any clear evidence of clinical GI bleed. Patient will be monitored overnight will be transfused 1 unit of PRBC. 02/02/2021 Patient is seen and evaluated in follow-up this morning with no acute overnight issues. Patient maintained on IV and oral antibiotics and will continue for the possibility of a developing pneumonia. Patient received a unit of PRBCs yesterday and hemoglobin is 7.5 today. White blood count trending down at 16.06 and patient did receive a dose of prednisone. Wheezing improved on exam. Sodium is 138 with a potassium of 3.6 current creatinine is 3.1 and blood sugars improved on current dose and will continue. Patient states he is eating and tolerating with no nausea or vomiting noted. Patient denies any chest pain or palpitations. Patient denies shortness of breath and is to receive dialysis today and anticipating going home. Per nursing staff patient started experiencing some chest pain immediately after starting dialysis and troponins were slightly elevated and trending down and patient hemodialysis was aborted early secondary to the chest pain. Cardiology was consulted and an EKG was done showing normal sinus rhythm and patient adamant about going home. Patient did not want to wait for cardiology evaluation and denied any further chest pain. is at the bedside to pick him up. Patient instructed to continue Saturday//Saturday dialysis schedule and follow-up closely with primary care provider along with nephrology outpatient. Patient also instructed if he experiences any feelings of chest pain, lightheadedness, dizziness, shortness of breath, or altered mental status to call 911 immediately or report to the ER. Patient verbalized understanding with at the bedside agreeing with this as well. Patient will be discharged home today. Patient will continue on oral antibiotics in the form of Ceftin along with Zithromax for the next 5 days to complete the course. Patient was also provided [facility] along with repeat labs to monitor hemoglobin closely. Guarded prognosis. On exam vital signs are stable. Cardio S1, S2 are muffled. Respiratory system shows diminished breath sounds at the bases with no wheezing or rhonchi noted. Abdomen is soft and nontender. Nervous system shows no focal deficits. Please refer to medication reconciliation sheet for a list of medications. Patient Condition at Discharge: Good Plan - Discharge Summary Discharge Rx Participant: No New Discharge Prescriptions: New Budesonide-Formot 160-4.5 Mcg [Symbicort 160-4.5 Mcg Inhaler] 2 puff INHALATION RT-BID #1 inhaler Cefuroxime Axetil [Ceftin] 500 mg PO BID 5 Days #10 tab Azithromycin [Zithromax] 500 mg PO DAILY 5 Days #5 tab Continue Simvastatin [Zocor] 40 mg PO HS Ergocalciferol (Vitamin D2) [Vitamin D2] 50,000 unit PO Q14D Aspirin EC [Ecotrin Low Dose] 81 mg PO HS Ferrous Sulfate [Iron (65 MG Elemental)] 325 mg PO TID Cyanocobalamin [Vitamin B-12] 1,000 mcg PO DAILY glipiZIDE [Glucotrol] 5 mg PO BID calcitrioL [Rocaltrol] 0.5 mcg PO SUWE Omeprazole [PriLOSEC] 20 mg PO HS Clopidogrel [Plavix] 75 mg PO HS Isosorbide Mononitrate ER [Imdur] 60 mg PO BID #60 tab.er.24h Metoprolol Tartrate [Lopressor] 25 mg PO TID DULoxetine HCL [Cymbalta] 20 mg PO DAILY Ascorbic Acid [Vitamin C] 500 mg PO DAILY Melatonin 5 mg PO HS Folic Acid-Vit B Complex-Vit C [Nephrocaps] 1 cap PO DAILY Sennosides-Docusate Sodium [Senokot-S] 2 tab PO TID PRN PRN Reason: Constipation Nitroglycerin Sl Tabs [Nitrostat] 0.4 mg SL Q5M PRN PRN Reason: Chest Pain Darbepoetin Joel [Aranesp] 60 mcg IV Q7D Gabapentin [Neurontin] 100 mg PO TID rOPINIRole HCL [Requip] 0.5 mg PO BID Loratadine 10 mg PO DAILY Changed Insulin Glargine [Lantus] 20 unit SQ HS #0 Discontinued amLODIPine [Norvasc] 10 mg PO DAILY #30 tab hydrALAZINE HCL [Apresoline] 25 mg PO TID Discharge Medication List Ergocalciferol (Vitamin D2) [Vitamin D2] 50,000 unit PO Q14D 07/18/17 [History] Simvastatin [Zocor] 40 mg PO HS 07/18/17 [History] Aspirin EC [Ecotrin Low Dose] 81 mg PO HS 02/10/18 [History] Ferrous Sulfate [Iron (65 MG Elemental)] 325 mg PO TID 02/10/18 [History] Cyanocobalamin [Vitamin B-12] 1,000 mcg PO DAILY 09/23/18 [History] glipiZIDE [Glucotrol] 5 mg PO BID 05/22/19 [History] calcitrioL [Rocaltrol] 0.5 mcg PO SUWE 09/17/19 [History] Omeprazole [PriLOSEC] 20 mg PO HS 09/25/19 [History] Clopidogrel [Plavix] 75 mg PO HS 04/18/20 [History] Isosorbide Mononitrate ER [Imdur] 60 mg PO BID #60 tab.er.24h 04/21/20 [Rx] Metoprolol Tartrate [Lopressor] 25 mg PO TID 07/13/20 [History] DULoxetine HCL [Cymbalta] 20 mg PO DAILY 10/27/20 [History] Ascorbic Acid [Vitamin C] 500 mg PO DAILY 12/19/20 [History] Folic Acid-Vit B Complex-Vit C [Nephrocaps] 1 cap PO DAILY 12/19/20 [History] Melatonin 5 mg PO HS 12/19/20 [History] Sennosides-Docusate Sodium [Senokot-S] 2 tab PO TID PRN 12/31/20 [History] Darbepoetin Joel [Aranesp] 60 mcg IV Q7D 01/23/21 [History] Gabapentin [Neurontin] 100 mg PO TID 01/23/21 [History] Loratadine 10 mg PO DAILY 01/23/21 [History] Nitroglycerin Sl Tabs [Nitrostat] 0.4 mg SL Q5M PRN 01/23/21 [History] rOPINIRole HCL [Requip] 0.5 mg PO BID 01/23/21 [History] Budesonide-Formot 160-4.5 Mcg [Symbicort 160-4.5 Mcg Inhaler] 2 puff INHALATION RT-BID #1 inhaler 02/01/21 [Rx] Azithromycin [Zithromax] 500 mg PO DAILY 5 Days #5 tab 02/02/21 [Rx] Cefuroxime Axetil [Ceftin] 500 mg PO BID 5 Days #10 tab 02/02/21 [Rx] Insulin Glargine [Lantus] 20 unit SQ HS #0 02/02/21 [Rx] Follow up Appointment(s)/Referral(s): [facility],Clinic [Primary Care Provider] - 1-2 days Ambulatory/Diagnostic Orders: Complete Blood Count w/diff [LAB.AMB] Time Frame: 2 Days, Location: None Selected Patient Instructions/Handouts: Heart Failure (DC), COPD (Chronic Obstructive Pulmonary Disease) (DC), Dizziness (ED), Tremors (DC) Activity/Diet/Wound Care/Special Instructions: prescriptions for antibiotics sent to [facility] here @ [facility], script for repeat labs sent to printer on [address] 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 finish antibiotics continue with inhalers Discharge Disposition: HOME SELF-CARE
[2021-02-06] MEDS ORDERED: ERGOCALCIFEROL 1,250 MCG (50,000 IU) CAPSULE PO SCH (09:00)
[2021-02-06] MEDS ORDERED: DARBEPOETIN ALFA 60 MCG/0.3 ML SYRINGE IV SCH (09:00)
== END 2021-02-02 18:14 | disposition home or self-care (01) | DRG 291 ==
LOC: EC 21:09 → 6NMEDSUR 01-31 00:15 → OBSVTOIN 01-31 14:03 → 4SSUR 01-31 15:40
PROVIDERS: ADMIT Hospitalist; ATTEND Hospitalist
PROC: 5A1D70Z Performance of Urinary Filtration, Intermittent, Less than 6 Hours Per Day (ICD-10-PCS; principal; 2021-01-31)
PROC: 5A1D70Z Performance of Urinary Filtration, Intermittent, Less than 6 Hours Per Day (ICD-10-PCS; 2021-02-01)
PROC: 5A1D70Z Performance of Urinary Filtration, Intermittent, Less than 6 Hours Per Day (ICD-10-PCS; 2021-02-02)
PROC: 30233N1 Transfusion of Nonautologous Red Blood Cells into Peripheral Vein, Percutaneous Approach (ICD-10-PCS; 2021-02-02)
DX: I13.2 Hypertensive heart and chronic kidney disease with heart failure and with stage 5 chronic kidney disease, or end stage renal disease (principal); J96.01 Acute respiratory failure with hypoxia; J15.9 Unspecified bacterial pneumonia; N18.6 End stage renal disease; J44.0 Chronic obstructive pulmonary disease with (acute) lower respiratory infection; R07.9 Chest pain, unspecified; I25.10 Atherosclerotic heart disease of native coronary artery without angina pectoris; E11.22 Type 2 diabetes mellitus with diabetic chronic kidney disease; E11.51 Type 2 diabetes mellitus with diabetic peripheral angiopathy without gangrene; D63.1 Anemia in chronic kidney disease; R79.89 Other specified abnormal findings of blood chemistry; F17.200 Nicotine dependence, unspecified, uncomplicated; M89.9 Disorder of bone, unspecified; I67.9 Cerebrovascular disease, unspecified; F43.10 Post-traumatic stress disorder, unspecified; G25.81 Restless legs syndrome; Z20.822 Contact with and (suspected) exposure to COVID-19; Z99.2 Dependence on renal dialysis; Z80.9 Family history of malignant neoplasm, unspecified; Z79.52 Long term (current) use of systemic steroids; I25.2 Old myocardial infarction; Z91.041 Radiographic dye allergy status; Z71.6 Tobacco abuse counseling; Z87.19 Personal history of other diseases of the digestive system; Z86.010 Personal history of colon polyps; Z87.01 Personal history of pneumonia (recurrent); Z77.098 Contact with and (suspected) exposure to other hazardous, chiefly nonmedicinal, chemicals
CPT/HCPCS: 36415; 71045; 80048; 80053; 82550; 83605; 83735; 83880; 84484; 85025; 85027; 85610; 85730; 86850; 86900; 86901; 86920; 87040; 87635; 90935; 93005; 94640; 94760; 96374; 96375; 99285

== ENCOUNTER 2021-02-17 09:29 | Inpatient (IN) | payer OTHER, MEDICARE ==
[2021-02-17] MEDS ORDERED: SODIUM CHLORIDE 0.9% 500 ML 500 ML IV STA (09:48)
--- NOTE | 2021-02-17 09:59 | ED ---
General Adult HPI - General Chief complaint: Recheck/Abnormal Lab/Rx Stated complaint: lab recheck Time Seen by Provider: 02/17/21 09:30 Source: patient, RN notes reviewed, old records reviewed Mode of arrival: wheelchair Limitations: no limitations - History of Present Illness Initial comments: This is a 70-year-old male who presents emergency Department complaining that he went to dialysis today; his hemoglobin was 6.3. Patient states he's been fee ling tired and short of breath over the last couple of days he's noticed some black stools. Patient states he is on Plavix but no other thinners. Patient denies any chest pain or palpitations. Patient denies any abdominal pain patient denies nausea vomiting diarrhea. Patient denies any recent fever chills or cough. Patient states there is a little bit more swelling to his legs bilaterally. - Related Data Home Medications Medication Instructions Recorded Confirmed Ergocalciferol (Vitamin D2) 50,000 unit PO Q14D 07/18/17 01/30/21 [Vitamin D2] Simvastatin [Zocor] 40 mg PO HS 07/18/17 01/30/21 Aspirin EC [Ecotrin Low Dose] 81 mg PO HS 02/10/18 01/30/21 Ferrous Sulfate [Iron (65 MG 325 mg PO TID 02/10/18 01/30/21 Elemental)] Cyanocobalamin [Vitamin B-12] 1,000 mcg PO DAILY 09/23/18 01/30/21 glipiZIDE [Glucotrol] 5 mg PO BID 05/22/19 01/30/21 calcitrioL [Rocaltrol] 0.5 mcg PO SUWE 09/17/19 01/30/21 Omeprazole [PriLOSEC] 20 mg PO HS 09/25/19 01/30/21 Clopidogrel [Plavix] 75 mg PO HS 04/18/20 01/30/21 Metoprolol Tartrate [Lopressor] 25 mg PO TID 07/13/20 01/30/21 DULoxetine HCL [Cymbalta] 20 mg PO DAILY 10/27/20 01/30/21 Ascorbic Acid [Vitamin C] 500 mg PO DAILY 12/19/20 01/30/21 Folic Acid-Vit B Complex-Vit C 1 cap PO DAILY 12/19/20 01/30/21 [Nephrocaps] Melatonin 5 mg PO HS 12/19/20 01/30/21 Sennosides-Docusate Sodium 2 tab PO TID PRN 12/31/20 01/30/21 [Senokot-S] Darbepoetin Joel [Aranesp] 60 mcg IV Q7D 01/23/21 01/30/21 Gabapentin [Neurontin] 100 mg PO TID 01/23/21 01/30/21 Loratadine 10 mg PO DAILY 01/23/21 01/30/21 Nitroglycerin Sl Tabs [Nitrostat] 0.4 mg SL Q5M PRN 01/23/21 01/30/21 rOPINIRole HCL [Requip] 0.5 mg PO BID 01/23/21 01/30/21 Previous Rx's Medication Instructions Recorded Isosorbide Mononitrate ER [Imdur] 60 mg PO BID #60 tab.er.24h 04/21/20 Budesonide-Formot 160-4.5 Mcg 2 puff INHALATION RT-BID #1 inhaler 02/01/21 [Symbicort 160-4.5 Mcg Inhaler] Azithromycin [Zithromax] 500 mg PO DAILY 5 Days #5 tab 02/02/21 Cefuroxime Axetil [Ceftin] 500 mg PO BID 5 Days #10 tab 02/02/21 Insulin Glargine [Lantus] 20 unit SQ HS #0 02/02/21 Allergies Allergy/AdvReac Type Severity Reaction Status Date / Time Iodinated Contrast Media AdvReac CAN'T Verified 02/17/21 09:30 TAKE, RENAL DISEASE Iodine and Iodide Containing AdvReac CAN'T Verified 02/17/21 09:30 Produc TAKE, RENAL DISEASE Review of Systems ROS Statement: Those systems with pertinent positive or pertinent negative responses have been documented in the HPI. ROS Other: All systems not noted in ROS Statement are negative. Past Medical History Past Medical History: Coronary Artery Disease (CAD), Chest Pain / Angina, COPD, Diabetes Mellitus, GERD/Reflux, GI Bleed, Hyperlipidemia, Hypertension, Pneumonia, Renal Disease, Vascular Disorder Additional Past Medical History / Comment(s): IDDM type II, lower GI bleed, benign colon polyps, spouse states micro bleeds in intestine are suspected, abdominal distention comes and goes which is nearly daily, partial SBO, chronic renal disease stage IV, iron anemia with iron transfusions (recent R upper chest mediport for infusions), PVD, stable lung nodules, chronic low back pain with bilateral sciatica, RLS, vertigo, insomnia, past agent orange exposure. Last Myocardial Infarction Date:: 03/2020 History of Any Multi-Drug Resistant Organisms: None Reported Past Surgical History: Cholecystectomy, Heart Catheterization Additional Past Surgical History / Comment(s): 03/25/20 R sublclavian mediport, R carotid stent done in [place], EGD/colonoscopyDecember 2016, endoscopic capsule, fx lt wrist -sx re-set, aortagram, bilateral leg revascularizations/stents Past Anesthesia/Blood Transfusion Reactions: No Reported Reaction Additional Past Anesthesia/Blood Transfusion Reaction / Comment(s): Pt has had blood transfusion without reaction. Date of Last Stent Placement:: 04/27/20 Past Psychological History: Depression, PTSD Smoking Status: Current every day smoker Past Alcohol Use History: None Reported Past Drug Use History: None Reported - Past Family History Father History Unknown: Yes Mother Family Medical History: Cancer Additional Family Medical History / Comment(s): Mother from metastatic cancer pelvic origin. General Exam - General Exam Comments Initial Comments: GENERAL: Patient is well-developed and well-nourished. Patient is nontoxic and well- hydrated and is in mild distress. ENT: Neck is soft and supple. No significant lymphadenopathy is noted. Oropharynx is clear. Moist mucous membranes. Neck has full range of motion without eliciting any pain. EYES: The sclera were anicteric and conjunctiva are pale. Extraocular movements were intact and pupils were equal round and reactive to light. Eyelids were unremarkable. PULMONARY: Unlabored respirations. Good breath sounds bilaterally. No audible rales rhonchi or wheezing was noted. CARDIOVASCULAR: There is a regular rate and rhythm without any murmurs gallops or rubs. ABDOMEN: Soft and nontender with normal bowel sounds. SKIN: Patient's skin is very pale NEUROLOGIC: Patient is alert and oriented x3. Cranial nerves II through XII are grossly intact. Motor and sensory are also intact. Normal speech, volume and content. Symmetrical smile. MUSCULOSKELETAL: Normal extremities with adequate strength and full range of motion. 2+ bilaterally LYMPHATICS: No significant lymphadenopathy is noted PSYCHIATRIC: Normal psychiatric evaluation. Limitations: no limitations Course Vital Signs 02/17/21 09:30 Temperature 98.2 F Pulse Rate 63 Respiratory 16 Rate Blood Pressure 104/44 O2 Sat by Pulse 95 Oximetry Medical Decision Making - Medical Decision Making EKG shows a normal sinus rhythm at 63 bpm CO interval 246 dresses 106 QT interval is 494 QTC is 55. Patient's EKG shows no ST segment elevation. Patient's hemoglobin was 6 and guaiac-positive from below the patient will be admitted to the hospital. [facility] agreed to admit the patient admitted the patient wrote admitting orders. - Lab Data Result diagrams: 02/17/21 09:52 02/17/21 09:52 Lab Results 02/17/21 02/17/21 02/17/21 Range/Units 09:52 09:52 09:52 WBC 7.7 (3.8-10.6) k/uL RBC 1.83 L (4.30-5.90) m/uL Hgb 6.0 L* D (13.0-17.5) gm/dL Hct 18.0 L* (39.0-53.0) % MCV 98.9 (80.0-100.0) fL MCH 32.8 (25.0-35.0) pg MCHC 33.2 (31.0-37.0) g/dL RDW 15.4 (11.5-15.5) % Plt Count 234 (150-450) k/uL MPV 8.2 Neutrophils % 89 % Lymphocytes % 5 % Monocytes % 5 % Eosinophils % 1 % Basophils % 0 % Neutrophils # 6.9 (1.3-7.7) k/uL Lymphocytes # 0.4 L (1.0-4.8) k/uL Monocytes # 0.4 (0-1.0) k/uL Eosinophils # 0.0 (0-0.7) k/uL Basophils # 0.0 (0-0.2) k/uL Hypochromasia Slight Poikilocytosis Slight Macrocytosis Slight PT (9.0-12.0) sec INR (<1.2) APTT (22.0-30.0) sec Sodium 129 L (137-145) mmol/L Potassium 2.9 L (3.5-5.1) mmol/L Chloride 92 L (98-107) mmol/L Carbon Dioxide 31 H (22-30) mmol/L Anion Gap 6 mmol/L BUN 31 H (9-20) mg/dL Creatinine 2.71 H (0.66-1.25) mg/dL Est GFR (CKD-EPI)AfAm 26 (>60 ml/min/1.73 sqM) Est GFR (CKD-EPI)NonAf 23 (>60 ml/min/1.73 sqM) Glucose 398 H (74-99) mg/dL Calcium 8.1 L (8.4-10.2) mg/dL Magnesium 1.8 (1.6-2.3) mg/dL Total Bilirubin 0.1 L (0.2-1.3) mg/dL AST 14 L (17-59) U/L ALT 8 (4-49) U/L Alkaline Phosphatase 76 (38-126) U/L Troponin I (0.000-0.034) ng/mL Total Protein 5.0 L (6.3-8.2) g/dL Albumin 2.6 L (3.5-5.0) g/dL Stool Occult Blood Positive (Negative) Blood Type Blood Type Recheck Bld Type Recheck Status Antibody Screen Crossmatch Spec Expiration Date 02/17/21 02/17/21 02/17/21 Range/Units 09:52 09:52 09:56 WBC (3.8-10.6) k/uL RBC (4.30-5.90) m/uL Hgb (13.0-17.5) gm/dL Hct (39.0-53.0) % MCV (80.0-100.0) fL MCH (25.0-35.0) pg MCHC (31.0-37.0) g/dL RDW (11.5-15.5) % Plt Count (150-450) k/uL MPV Neutrophils % % Lymphocytes % % Monocytes % % Eosinophils % % Basophils % % Neutrophils # (1.3-7.7) k/uL Lymphocytes # (1.0-4.8) k/uL Monocytes # (0-1.0) k/uL Eosinophils # (0-0.7) k/uL Basophils # (0-0.2) k/uL Hypochromasia Poikilocytosis Macrocytosis PT 9.9 (9.0-12.0) sec INR 0.9 (<1.2) APTT 23.8 (22.0-30.0) sec Sodium (137-145) mmol/L Potassium (3.5-5.1) mmol/L Chloride (98-107) mmol/L Carbon Dioxide (22-30) mmol/L Anion Gap mmol/L BUN (9-20) mg/dL Creatinine (0.66-1.25) mg/dL Est GFR (CKD-EPI)AfAm (>60 ml/min/1.73 sqM) Est GFR (CKD-EPI)NonAf (>60 ml/min/1.73 sqM) Glucose (74-99) mg/dL Calcium (8.4-10.2) mg/dL Magnesium (1.6-2.3) mg/dL Total Bilirubin (0.2-1.3) mg/dL AST (17-59) U/L ALT (4-49) U/L Alkaline Phosphatase (38-126) U/L Troponin I <0.012 (0.000-0.034) ng/mL Total Protein (6.3-8.2) g/dL Albumin (3.5-5.0) g/dL Stool Occult Blood (Negative) Blood Type B Positive Blood Type Recheck B Pos Bld Type Recheck Status No Antibody Screen NEGATIVE Crossmatch See Detail Spec Expiration Date 02/20/20212351 Disposition Clinical Impression: GI bleed, Anemia Disposition: ADMITTED IP TO THIS [facility] Referrals: [facility] [Primary Care Provider] - 1-2 days Time of Disposition: 11:19
[2021-02-17 10:51] LABS: Basophils % (A) 0 %; Eosinophils % (A) 1 %; Hypochromasia Slight; Lymphocytes # (A) 0.4 k/uL (1.0-4.8); Lymphocytes % (A) 5 %; MCH 32.8 pg (25.0-35.0); MCHC 33.2 g/dL (31.0-37.0); MCV 98.9 fL (80.0-100.0); Macrocytosis Slight; Mean Platelet Volume 8.2; Monocytes # (A) 0.4 k/uL (0-1.0); Monocytes % (A) 5 %; Neutrophils # (A) 6.9 k/uL (1.3-7.7); Neutrophils % (A) 89 %; Platelet Count 234 k/uL (150-450); Poikilocytosis Slight; RBC 1.83 m/uL (4.30-5.90); RDW 15.4 % (11.5-15.5); WBC 7.7 k/uL (3.8-10.6)
[2021-02-17 10:53] LABS: Albumin 2.6 g/dL (3.5-5.0); Calcium 8.1 mg/dL (8.4-10.2); Magnesium 1.8 mg/dL (1.6-2.3); Potassium 2.9 mmol/L (3.5-5.1); Total Bilirubin 0.1 mg/dL (0.2-1.3)
[2021-02-17 10:58] LABS: INR 0.9 (<1.2); Partial Thromboplastin Time 23.8 sec (22.0-30.0); Prothrombin Time 9.9 sec (9.0-12.0)
[2021-02-17] MEDS ORDERED: IPRATROPIUM-ALBUTEROL 3 ML NEB INHALATION PRN (12:30)
[2021-02-17] MEDS ORDERED: NITROGLYCERIN SL TABS 0.4 MG TAB SUBLINGUAL PRN (14:43)
[2021-02-17] MEDS ORDERED: LIDOCAINE-PRILOCAINE 2.5-2.5% CREAM 5 GM TUBE TOPICAL PRN (14:43)
--- NOTE | 2021-02-17 14:53 | P.HPIM ---
History of Present Illness Patient is 70-year-old male came in because of low hemoglobin of 6.1 patient does admit to having.stools about 4 of them yesterday. Patient is both on aspirin and Plavix patient last and was for his peripheral vascular disease and was in April 2020. Patient denied any fever chills. Patient denied any nausea vomiting. Patient denied any hematemesis, hematochezia. REVIEW OF SYSTEMS: CONSTITUTIONAL: No fever, no malaise, no fatigue. HEENT: No recent visual problems or hearing problems. Denied any sore throat. CARDIOVASCULAR: No chest pain, orthopnea, PND, no palpitations, no syncope. PULMONARY: No shortness of breath, no cough, no hemoptysis. GASTROINTESTINAL: No diarrhea, no nausea, no vomiting, no abdominal pain. NEUROLOGICAL: No headaches, no weakness, no numbness. HEMATOLOGICAL: Denies any bleeding or petechiae. GENITOURINARY: Denies any burning micturition, frequency, or urgency. MUSCULOSKELETAL/RHEUMATOLOGICAL: Denies any joint pain, swelling, or any muscle pain. ENDOCRINE: Denies any polyuria or polydipsia. The rest of the 14-point review of systems is negative. PHYSICAL EXAMINATION: GENERAL: The patient is alert and oriented x3, not in any acute distress. Well developed, well nourished. HEENT: Pupils are round and equally reacting to light. EOMI. No scleral icterus. Does have conjunctival pallor. Normocephalic, atraumatic. No pharyngeal erythema. No thyromegaly. CARDIOVASCULAR: S1 and S2 present. No murmurs, rubs, or gallops. PULMONARY: Chest is clear to auscultation, no wheezing or crackles. ABDOMEN: Soft, nontender, nondistended, normoactive bowel sounds. No palpable organomegaly. MUSCULOSKELETAL: No joint swelling or deformity. EXTREMITIES: No cyanosis, clubbing, or pedal edema. NEUROLOGICAL: Gross neurological examination did not reveal any focal deficits. SKIN: No rashes. Assessment and plan -Acute blood loss anemia we'll transfuse 1 unit of PRBC patient present hemoglobin is a 6 may need 1 more unit. An incision disease dialysis dependent patient will undergo scheduled hemodialysis -Diabetic peripheral neuropathy for which patient on gabapentin which will be continued -Depression -coronary artery disease and severe peripheral vascular disease with a recent stent in April 2022 bilateral lower extremities. Holding off aspirin and Plavix because of acute GI bleed -COPD without any acute exacerbation -Gastroesophageal reflux disease -Hypertension -Cerebrovascular disease -Diabetic nephropathy and diabetic peripheral neuropathy DVT prophylaxis: SCDs Past Medical History Past Medical History: Coronary Artery Disease (CAD), Chest Pain / Angina, COPD, Diabetes Mellitus, GERD/Reflux, GI Bleed, Hyperlipidemia, Hypertension, Pneumonia, Renal Disease, Vascular Disorder Additional Past Medical History / Comment(s): IDDM type II, lower GI bleed, benign colon polyps, spouse states micro bleeds in intestine are suspected, abdominal distention comes and goes which is nearly daily, partial SBO, chronic renal disease stage IV, iron anemia with iron transfusions (recent R upper chest mediport for infusions), PVD, stable lung nodules, chronic low back pain with bilateral sciatica, RLS, vertigo, insomnia, past agent orange exposure. Last Myocardial Infarction Date:: 03/2020 History of Any Multi-Drug Resistant Organisms: None Reported Past Surgical History: Cholecystectomy, Heart Catheterization Additional Past Surgical History / Comment(s): 03/25/20 R sublclavian mediport, R carotid stent done in [place], EGD/colonoscopyDecember 2016, endoscopic capsule, fx lt wrist -sx re-set, aortagram, bilateral leg revascularizations/stents Past Anesthesia/Blood Transfusion Reactions: No Reported Reaction Additional Past Anesthesia/Blood Transfusion Reaction / Comment(s): Pt has had blood transfusion without reaction. Date of Last Stent Placement:: 04/27/20 Past Psychological History: Depression, PTSD Additional Psychological History / Comment(s): Pt resides with his spouse and their 2 dogs. Pt uses a cane to ambulate. He has a mobility scooter which he uses prn. He does not drive, his spouse drives. Pt served in the [employer] for 2 tours in [place]. Spouse states pt and herself are being trained to perform home dialysis. Smoking Status: Current every day smoker Past Alcohol Use History: None Reported Additional Past Alcohol Use History / Comment(s): Pt started smoking in 1965 and is a 1 ppd smoker. Past Drug Use History: None Reported Additional Drug Use History / Comment(s): Pt states he takes a couple puffs from a marijuana joint occasionally - Past Family History Father History Unknown: Yes Mother Family Medical History: Cancer Additional Family Medical History / Comment(s): Mother from metastatic cancer pelvic origin. Medications and Allergies Home Medications Medication Instructions Recorded Confirmed Type Ergocalciferol (Vitamin D2) 50,000 unit PO Q14D 07/18/17 02/17/21 History [Vitamin D2] Simvastatin [Zocor] 40 mg PO HS 07/18/17 02/17/21 History Aspirin EC [Ecotrin Low Dose] 81 mg PO HS 02/10/18 02/17/21 History Ferrous Sulfate [Iron (65 MG 325 mg PO TID 02/10/18 02/17/21 History Elemental)] Cyanocobalamin [Vitamin B-12] 1,000 mcg PO DAILY 09/23/18 02/17/21 History glipiZIDE [Glucotrol] 5 mg PO BID 05/22/19 02/17/21 History Omeprazole [PriLOSEC] 20 mg PO HS 09/25/19 02/17/21 History Clopidogrel [Plavix] 75 mg PO HS 04/18/20 02/17/21 History Isosorbide Mononitrate ER [Imdur] 60 mg PO BID #60 tab.er.24h 04/21/20 02/17/21 Rx Metoprolol Tartrate [Lopressor] 25 mg PO TID 07/13/20 02/17/21 History DULoxetine HCL [Cymbalta] 20 mg PO DAILY 10/27/20 02/17/21 History Ascorbic Acid [Vitamin C] 500 mg PO DAILY 12/19/20 02/17/21 History Folic Acid-Vit B Complex-Vit C 1 cap PO DAILY 12/19/20 02/17/21 History [Nephrocaps] Melatonin 5 mg PO HS 12/19/20 02/17/21 History Sennosides-Docusate Sodium 2 tab PO TID PRN 12/31/20 02/17/21 History [Senokot-S] Darbepoetin Joel [Aranesp] 60 mcg IV Q7D 01/23/21 02/17/21 History Gabapentin [Neurontin] 100 mg PO TID 01/23/21 02/17/21 History Loratadine 10 mg PO DAILY 01/23/21 02/17/21 History Nitroglycerin Sl Tabs [Nitrostat] 0.4 mg SL Q5M PRN 01/23/21 02/17/21 History rOPINIRole HCL [Requip] 0.5 mg PO TID 01/23/21 02/17/21 History Budesonide-Formot 160-4.5 Mcg 2 puff INHALATION RT-BID #1 inhaler 02/01/21 02/17/21 Rx [Symbicort 160-4.5 Mcg Inhaler] Insulin Glargine [Lantus] 20 unit SQ HS #0 02/02/21 02/17/21 Rx Furosemide [Lasix] 80 mg PO DAILY 02/17/21 02/17/21 History Lidocaine-Prilocaine Cream [Emla 1 applic TOPICAL DIRECTED PRN 02/17/21 02/17/21 History Cream 2.5%/2.5%] Sodium Bicarbonate Tab 650 mg PO BID 02/17/21 02/17/21 History Allergies Allergy/AdvReac Type Severity Reaction Status Date / Time Iodinated Contrast Media AdvReac CAN'T Verified 02/17/21 11:46 TAKE, RENAL DISEASE Iodine and Iodide Containing AdvReac CAN'T Verified 02/17/21 11:46 Produc TAKE, RENAL DISEASE Physical Exam Vitals: Vital Signs Temp Pulse Pulse Resp BP BP Pulse Ox 02/17/21 12:52 98.3 F 84 18 152/52 96 02/17/21 12:26 67 18 147/59 100 02/17/21 11:56 68 17 154/62 100 02/17/21 11:46 67 18 149/64 100 02/17/21 10:30 98.2 F 68 18 110/56 97 02/17/21 09:30 98.2 F 63 16 104/44 95 Intake and Output 02/16/21 02/17/21 02/17/21 22:59 06:59 14:59 Intake Total 0 Balance 0 Intake: Blood Product 0 Rc As-1 Unit 0 [id number] Other: # Voids 1 Weight 84.368 kg Results CBC & Chem 7: 02/17/21 09:52 02/17/21 09:52 Labs: Abnormal Lab Results - Last 24 Hours (Table) 02/17/21 02/17/21 02/17/21 Range/Units 09:52 09:52 09:52 RBC 1.83 L (4.30-5.90) m/uL Hgb 6.0 L* D (13.0-17.5) gm/dL Hct 18.0 L* (39.0-53.0) % Lymphocytes # 0.4 L (1.0-4.8) k/uL Sodium 129 L (137-145) mmol/L Potassium 2.9 L (3.5-5.1) mmol/L Chloride 92 L (98-107) mmol/L Carbon Dioxide 31 H (22-30) mmol/L BUN 31 H (9-20) mg/dL Creatinine 2.71 H (0.66-1.25) mg/dL Glucose 398 H (74-99) mg/dL Calcium 8.1 L (8.4-10.2) mg/dL Total Bilirubin 0.1 L (0.2-1.3) mg/dL AST 14 L (17-59) U/L Total Protein 5.0 L (6.3-8.2) g/dL Albumin 2.6 L (3.5-5.0) g/dL Crossmatch See Detail Thrombosis Risk Factor Assmnt - Choose All That Apply Any of the Below Risk Factors Present?: Yes Each Factor Represents 1 point: Obesity (BMI >25) Other Risk Factors: Yes Each Risk Factor Represents 2 Points: Age 61-74 years Thrombosis Risk Factor Assessment Total Risk Factor Score: 3 Thrombosis Risk Factor Assessment Level: Moderate Risk
[2021-02-17] MEDS ORDERED: DARBEPOETIN ALFA 60 MCG/0.3 ML SYRINGE IV SCH (15:00)
[2021-02-17] MEDS ORDERED: ERGOCALCIFEROL 1,250 MCG (50,000 IU) CAPSULE PO SCH (15:00)
[2021-02-17] MEDS: GABAPENTIN 100 MG CAP PO SCH ×2 (15:42→21:09)
[2021-02-17] MEDS: FERROUS SULFATE 325 MG TAB PO SCH ×2 (15:42→21:09)
[2021-02-17] MEDS ORDERED: ONDANSETRON 4 MG/2 ML VIAL IVP PRN (17:36)
[2021-02-17 18:01] LABS: Basophils % (A) 0 %; Eosinophils % (A) 1 %; HCT 26.5 % (39.0-53.0); Hypochromasia Slight; Lymphocytes # (A) 0.4 k/uL (1.0-4.8); Lymphocytes % (A) 4 %; MCH 32.8 pg (25.0-35.0); MCHC 34.7 g/dL (31.0-37.0); MCV 94.6 fL (80.0-100.0); Mean Platelet Volume 8.1; Monocytes # (A) 0.4 k/uL (0-1.0); Monocytes % (A) 5 %; Neutrophils # (A) 7.4 k/uL (1.3-7.7); Neutrophils % (A) 88 %; Platelet Count 226 k/uL (150-450); Poikilocytosis Slight; WBC 8.3 k/uL (3.8-10.6)
[2021-02-17 18:12] LABS: Glucose,Whole Blood 252 mg/dL (75-99)
[2021-02-17 18:18] LABS: HGB 9.2 gm/dL (13.0-17.5)
[2021-02-17] MEDS: INSULIN ASPART (NovoLOG) 100 UNIT/ML VIAL SQ SCH ×2 (18:26→21:10)
--- NOTE | 2021-02-17 20:19 | P.CONS ---
History of Present Illness - Reason for Consult Consult date: 02/17/21 Anemia, melena Requesting physician: Landy Jean Baptiste - Chief Complaint Anemia - History of Present Illness 70-year-old male with multiple medical comorbidities including coronary artery disease, peripheral vascular disease on aspirin and Plavix therapy, chronic anemia, end-stage renal disease on hemodialysis, COPD, hypertension, hyperlipidemia, gastritis, colon polyps and small bowel angiectasia presented to the hospital due to anemia. The patient was found to be anemic in the outpatient setting and was sent to the hospital for further evaluation. The patient has a known history of iron deficiency anemia on iron supplementation is also on Procrit. He does state iron therapy with outpatient setting and does have chronically dark stool. Previously he has undergone endoscopic evaluation in 2016 with EGD and colonoscopy in 1216 significant for mild antral gastritis and polypectomy. 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 He denies any gross GI bleeding at this time. He denies any abdominal pain. Currently he is undergoing hemodialysis and receiving 2 additional units of PRBCs. The patient has been seen by the hematology/oncology service evaluation of his anemia in the past. Review of Systems REVIEW OF SYSTEMS: CONSTITUTIONAL: Denies any fevers, chills, weight change or fatigue. CARDIOVASCULAR: Denies any chest pain, palpitations high or low blood pressures RESPIRATORY: Denies any shortness of breath, hemoptysis or cough. GENITOURINARY: No dysuria or hematuria, end-stage renal disease on hemodialysis. MUSCULOSKELETAL: No weakness reported. SKIN: Denies any new rashes or lesions, jaundice or pallor. PSYCHIATRIC: Denies any depression or anxiety. NEUROLOGY: Denies headache, denies any new focal deficits. EARS/NOSE/THROAT: No recent hearing change, congestion, nasal discharge or sore throat. EYES: No pain in eyes, discharge or change in vision. GASTROINTESTINAL: As per HPI. Past Medical History Past Medical History: Coronary Artery Disease (CAD), Chest Pain / Angina, COPD, Diabetes Mellitus, GERD/Reflux, GI Bleed, Hyperlipidemia, Hypertension, Pneumonia, Renal Disease, Vascular Disorder Additional Past Medical History / Comment(s): IDDM type II, lower GI bleed, benign colon polyps, spouse states micro bleeds in intestine are suspected, abdo tessa distention comes and goes which is nearly daily, partial SBO, chronic renal disease stage IV, iron anemia with iron transfusions (recent R upper chest mediport for infusions), PVD, stable lung nodules, chronic low back pain with bilateral sciatica, RLS, vertigo, insomnia, past agent orange exposure. Last Myocardial Infarction Date:: 03/2020 History of Any Multi-Drug Resistant Organisms: None Reported Past Surgical History: Cholecystectomy, Heart Catheterization Additional Past Surgical History / Comment(s): 03/25/20 R sublclavian mediport, R carotid stent done in [place], EGD/colonoscopyDecember 2016, endoscopic capsule, fx lt wrist -sx re-set, aortagram, bilateral leg revascularizatio ns/stents Past Anesthesia/Blood Transfusion Reactions: No Reported Reaction Additional Past Anesthesia/Blood Transfusion Reaction / Comm: Pt has had blood transfusion without reaction. Date of Last Stent Placement:: 04/27/20 Past Psychological History: Depression, PTSD Additional Psychological History / Comment(s): Pt resides with his spouse and their 2 dogs. Pt uses a cane to ambulate. He has a mobility scooter which he uses prn. He does not drive, his spouse drives. Pt served in the [employer] for 2 tours in [place]. Spouse states pt and herself are being trained to perform home dialysis. Smoking Status: Current every day smoker Past Alcohol Use History: None Reported Additional Past Alcohol Use History / Comment(s): Pt started smoking in 1965 and is a 1 ppd smoker. Past Drug Use History: None Reported Additional Drug Use History / Comment(s): Pt states he takes a couple puffs from a marijuana joint occasionally - Past Family History Father History Unknown: Yes Mother Family Medical History: Cancer Additional Family Medical History / Comment(s): Mother from metastatic cancer pelvic origin. Medications and Allergies Home Medications Medication Instructions Recorded Confirmed Type Ergocalciferol (Vitamin D2) 50,000 unit PO Q14D 07/18/17 02/17/21 History [Vitamin D2] Simvastatin [Zocor] 40 mg PO HS 07/18/17 02/17/21 History Aspirin EC [Ecotrin Low Dose] 81 mg PO HS 02/10/18 02/17/21 History Ferrous Sulfate [Iron (65 MG 325 mg PO TID 02/10/18 02/17/21 History Elemental)] Cyanocobalamin [Vitamin B-12] 1,000 mcg PO DAILY 09/23/18 02/17/21 History glipiZIDE [Glucotrol] 5 mg PO BID 05/22/19 02/17/21 History Omeprazole [PriLOSEC] 20 mg PO HS 09/25/19 02/17/21 History Clopidogrel [Plavix] 75 mg PO HS 04/18/20 02/17/21 History Isosorbide Mononitrate ER [Imdur] 60 mg PO BID #60 tab.er.24h 04/21/20 02/17/21 Rx Metoprolol Tartrate [Lopressor] 25 mg PO TID 07/13/20 02/17/21 History DULoxetine HCL [Cymbalta] 20 mg PO DAILY 10/27/20 02/17/21 History Ascorbic Acid [Vitamin C] 500 mg PO DAILY 12/19/20 02/17/21 History Folic Acid-Vit B Complex-Vit C 1 cap PO DAILY 12/19/20 02/17/21 History [Nephrocaps] Melatonin 5 mg PO HS 12/19/20 02/17/21 History Sennosides-Docusate Sodium 2 tab PO TID PRN 12/31/20 02/17/21 History [Senokot-S] Darbepoetin Joel [Aranesp] 60 mcg IV Q7D 01/23/21 02/17/21 History Gabapentin [Neurontin] 100 mg PO TID 01/23/21 02/17/21 History Loratadine 10 mg PO DAILY 01/23/21 02/17/21 History Nitroglycerin Sl Tabs [Nitrostat] 0.4 mg SL Q5M PRN 01/23/21 02/17/21 History rOPINIRole HCL [Requip] 0.5 mg PO TID 01/23/21 02/17/21 History Budesonide-Formot 160-4.5 Mcg 2 puff INHALATION RT-BID #1 inhaler 02/01/21 02/17/21 Rx [Symbicort 160-4.5 Mcg Inhaler] Insulin Glargine [Lantus] 20 unit SQ HS #0 02/02/21 02/17/21 Rx Furosemide [Lasix] 80 mg PO DAILY 02/17/21 02/17/21 History Lidocaine-Prilocaine Cream [Emla 1 applic TOPICAL DIRECTED PRN 02/17/21 02/17/21 History Cream 2.5%/2.5%] Sodium Bicarbonate Tab 650 mg PO BID 02/17/21 02/17/21 History Allergies Allergy/AdvReac Type Severity Reaction Status Date / Time Iodinated Contrast Media AdvReac CAN'T Verified 02/17/21 11:46 TAKE, RENAL DISEASE Iodine and Iodide Containing AdvReac CAN'T Verified 02/17/21 11:46 Produc TAKE, RENAL DISEASE Physical Exam Vitals: Vital Signs Temp Pulse Pulse Resp BP BP Pulse Ox 02/17/21 12:52 98.3 F 84 18 152/52 96 02/17/21 12:26 67 18 147/59 100 02/17/21 11:56 68 17 154/62 100 02/17/21 11:46 67 18 149/64 100 02/17/21 10:30 98.2 F 68 18 110/56 97 02/17/21 09:30 98.2 F 63 16 104/44 95 Intake and Output 02/16/21 02/17/21 02/17/21 22:59 06:59 14:59 Intake Total 0 Balance 0 Intake: Blood Product 0 Rc As-1 Unit 0 [id number] Other: # Voids 1 Weight 84.368 kg On physical examination, patient appears comfortable in no apparent distress. HEAD: Normocephalic, atraumatic. EYES: No scleral icterus. No conjunctival injection. MOUTH: No lesions, tongue midline. NECK: Trachea midline, no gross abnormalities. CHEST: Decreased air entry in all lung wing. HEART: S1-S2 appreciated. ABDOMEN: Soft, obese. Bowel sounds are positive. No organomegaly. No guarding or rigidity. EXTREMITIES: No pedal edema. SKIN: No rashes, no jaundice. NEUROLOGIC: Alert and oriented x3. No focal deficits. Results CBC & Chem 7: 02/17/21 17:43 02/17/21 09:52 Labs: Abnormal Lab Results - Last 24 Hours (Table) 02/17/21 02/17/21 02/17/21 Range/Units 09:52 09:52 09:52 RBC 1.83 L (4.30-5.90) m/uL Hgb 6.0 L* D (13.0-17.5) gm/dL Hct 18.0 L* (39.0-53.0) % Lymphocytes # 0.4 L (1.0-4.8) k/uL Sodium 129 L (137-145) mmol/L Potassium 2.9 L (3.5-5.1) mmol/L Chloride 92 L (98-107) mmol/L Carbon Dioxide 31 H (22-30) mmol/L BUN 31 H (9-20) mg/dL Creatinine 2.71 H (0.66-1.25) mg/dL Glucose 398 H (74-99) mg/dL Calcium 8.1 L (8.4-10.2) mg/dL Total Bilirubin 0.1 L (0.2-1.3) mg/dL AST 14 L (17-59) U/L Total Protein 5.0 L (6.3-8.2) g/dL Albumin 2.6 L (3.5-5.0) g/dL Crossmatch See Detail Assessment and Plan (1) Chronic anemia Narrative/Plan: 70-year-old male with multiple medical comorbidities currently on Plavix and aspirin therapy for peripheral vascular disease who presented for evaluation of anemia. Patient has long-standing history of anemia since 2017 previously evaluated with EGD and colonoscopy in 2017 significant for gastritis and polypectomy he subsequently had video capsule endoscopy in 01/2018 showed multiple nonbleeding duodenal and jejunal angiectasia. He denies any gross signs or symptoms of bleeding he does report dark colored stool but is on iron therapy and also had a positive occult guaiac from his stool but this is unreliable the setting of iron therapy. Unclear etiology, likely multifactorial secondary to anemia of chronic disease, cannot rule out small bowel bleeding from previously seen angiectasia as follows patient denies any gross signs or symptoms of GI bleeding at this time. Current Visit: No Status: Acute Code(s): D64.9 - ANEMIA, UNSPECIFIED SNOMED Code(s): 955136745 (2) Stool guaiac positive Current Visit: No Status: Acute Code(s): R19.5 - OTHER FECAL ABNORMALITIES SNOMED Code(s): 60651683 Plan: Supportive care Okay for diet as tolerated Continue iron supplementation Continue monitor stool output Continue to monitor hemoglobin and hematocrit and transfuse as needed Continue follow-up with hematology service as scheduled No plans for endoscopic evaluation at this time The GI service will sign off, if endoscopic evaluation is required the patient w ill need to be seen by the surgical service as there is no gastroenterology coverage this weekend or transfer to an outside facility for GI evaluation as per discretion of the primary team, otherwise he can follow up after discharge with consideration for second look endoscopy at that time
[2021-02-17 20:34] LABS: Glucose,Whole Blood 221 mg/dL (75-99)
[2021-02-17] MEDS: BUDESONIDE 0.25 MG/2 ML NEBU INHALATION SCH (20:58)
[2021-02-17] MEDS: SYMBICORT 160-4.5 MCG INHALER INHALATION SCH (20:58)
[2021-02-17] MEDS ORDERED: ATORVASTATIN 20 MG TAB PO SCH (21:00)
[2021-02-17] MEDS ORDERED: INSULIN DETEMIR (LEVEMIR) 100 UNIT/ML SYR SQ SCH (21:00)
[2021-02-17] MEDS ORDERED: MELATONIN 5 MG TABLET PO SCH (21:00)
[2021-02-17] MEDS: ISOSORBIDE MONONITRATE ER 60 MG TAB.ER.24H PO SCH (21:09)
[2021-02-17] MEDS: SODIUM BICARBONATE TAB 650 MG TAB PO SCH (21:09)
[2021-02-17] MEDS: glipiZIDE 5 MG TAB PO SCH (21:09)
[2021-02-18 06:50] LABS: Glucose,Whole Blood 62 mg/dL (75-99)
[2021-02-18 07:12] LABS: Glucose,Whole Blood 72 mg/dL (75-99)
[2021-02-18 07:33] VITALS: BP 145/59; PULSE 66; RESP 15; TEMP 98
[2021-02-18 08:07] LABS: Glucose,Whole Blood 194 mg/dL (75-99)
[2021-02-18] MEDS: BUDESONIDE 0.25 MG/2 ML NEBU INHALATION SCH (08:26)
[2021-02-18] MEDS: SYMBICORT 160-4.5 MCG INHALER INHALATION SCH (08:26)
[2021-02-18] MEDS: glipiZIDE 5 MG TAB PO SCH (08:35)
[2021-02-18] MEDS: FERROUS SULFATE 325 MG TAB PO SCH (08:35)
[2021-02-18] MEDS: SODIUM BICARBONATE TAB 650 MG TAB PO SCH (08:35)
[2021-02-18] MEDS: ISOSORBIDE MONONITRATE ER 60 MG TAB.ER.24H PO SCH (08:35)
[2021-02-18] MEDS: INSULIN ASPART (NovoLOG) 100 UNIT/ML VIAL SQ SCH ×2 (08:36→12:04)
[2021-02-18] MEDS: GABAPENTIN 100 MG CAP PO SCH (08:36)
[2021-02-18] MEDS ORDERED: CYANOCOBALAMIN 500 MCG TAB PO SCH (09:00)
[2021-02-18] MEDS ORDERED: LORATADINE 10 MG TAB PO SCH (09:00)
[2021-02-18] MEDS ORDERED: FUROSEMIDE 80 MG TAB PO SCH (09:00)
[2021-02-18] MEDS ORDERED: DULoxetine HCL 20 MG CAPSULE.DR PO SCH (09:00)
--- NOTE | 2021-02-18 10:13 | P.NPCON ---
History of Present Illness - Reason for Consult end stage renal disease - History of Present Illness Reason for consultation: End-stage renal disease History of present illness: Patient is a 70-year-old male seen in consultation for end-stage renal disease. He is maintained on hemodialysis on Saturday schedule. Patient was been trained for home hemodialysis but decided to transition to peritoneal dialysis instead. He will be following up with the surgeon outpatient for PD catheter insertion but in the meantime he's on in-center hemodialysis. Patient presented to the hospital due to generalized weakness. He had blood work an outpatient and was noted to be anemic and was sent to the hospital. He does admit to noticing black stools but denies any active blood with bowel movement. Patient's hemoglobin on admission was 6.0 and he received transfusions. Hemoglobin as of yesterday evening was 9.2. Overall he feels better. No chest pain or shortness of breath. No vomiting or diarrhea. No fever or chills. Blood pressure stable. Vital signs are stable. General: The patient appeared well nourished and normally developed. HEENT: Head exam is unremarkable. Neck is without jugular venous distension. LUNGS: Breath sounds decreased. HEART: Rate and Rhythm are regular. ABDOMEN: Soft, no distention. EXTREMITITES: Trace edema. Past Medical History Past Medical History: Coronary Artery Disease (CAD), Chest Pain / Angina, COPD, Diabetes Mellitus, GERD/Reflux, GI Bleed, Hyperlipidemia, Hypertension, Pneumonia, Renal Disease, Vascular Disorder Additional Past Medical History / Comment(s): IDDM type II, lower GI bleed, benign colon polyps, spouse states micro bleeds in intestine are suspected, abdominal distention comes and goes which is nearly daily, partial SBO, chronic renal disease stage IV, iron anemia with iron transfusions (recent R upper chest mediport for infusions), PVD, stable lung nodules, chronic low back pain with bilateral sciatica, RLS, vertigo, insomnia, past agent orange exposure. Last Myocardial Infarction Date:: 03/2020 History of Any Multi-Drug Resistant Organisms: None Reported Past Surgical History: Cholecystectomy, Heart Catheterization Additional Past Surgical History / Comment(s): 03/25/20 R sublclavian mediport, R carotid stent done in [place], EGD/colonoscopyDecember 2016, endoscopic capsule, fx lt wrist -sx re-set, aortagram, bilateral leg revascularizations/stents Past Anesthesia/Blood Transfusion Reactions: No Reported Reaction Additional Past Anesthesia/Blood Transfusion Reaction / Comment(s): Pt has had blood transfusion without reaction. Date of Last Stent Placement:: 04/27/20 Past Psychological History: Depression, PTSD Additional Psychological History / Comment(s): Pt resides with his spouse and their 2 dogs. Pt uses a cane to ambulate. He has a mobility scooter which he uses prn. He does not drive, his spouse drives. Pt served in the [employer] for 2 tours in [place]. Spouse states pt and herself are being trained to perform home dialysis. Smoking Status: Current every day smoker Past Alcohol Use History: None Reported Additional Past Alcohol Use History / Comment(s): Pt started smoking in 1964 and is a 1 ppd smoker. Past Drug Use History: None Reported Additional Drug Use History / Comment(s): Pt states he takes a couple puffs from a marijuana joint occasionally - Past Family History Father History Unknown: Yes Mother Family Medical History: Cancer Additional Family Medical History / Comment(s): Mother from metastatic cancer pelvic origin. Medications and Allergies Home Medications Medication Instructions Recorded Confirmed Type Ergocalciferol (Vitamin D2) 50,000 unit PO Q14D 07/18/17 02/17/21 History [Vitamin D2] Simvastatin [Zocor] 40 mg PO HS 07/18/17 02/17/21 History Aspirin EC [Ecotrin Low Dose] 81 mg PO HS 02/10/18 02/17/21 History Ferrous Sulfate [Iron (65 MG 325 mg PO TID 02/10/18 02/17/21 History Elemental)] Cyanocobalamin [Vitamin B-12] 1,000 mcg PO DAILY 09/23/18 02/17/21 History glipiZIDE [Glucotrol] 5 mg PO BID 05/22/19 02/17/21 History Omeprazole [PriLOSEC] 20 mg PO HS 09/25/19 02/17/21 History Clopidogrel [Plavix] 75 mg PO HS 04/18/20 02/17/21 History Isosorbide Mononitrate ER [Imdur] 60 mg PO BID #60 tab.er.24h 04/21/20 02/17/21 Rx Metoprolol Tartrate [Lopressor] 25 mg PO TID 07/13/20 02/17/21 History DULoxetine HCL [Cymbalta] 20 mg PO DAILY 10/27/20 02/17/21 History Ascorbic Acid [Vitamin C] 500 mg PO DAILY 12/19/20 02/17/21 History Folic Acid-Vit B Complex-Vit C 1 cap PO DAILY 12/19/20 02/17/21 History [Nephrocaps] Melatonin 5 mg PO HS 12/19/20 02/17/21 History Sennosides-Docusate Sodium 2 tab PO TID PRN 12/31/20 02/17/21 History [Senokot-S] Darbepoetin Joel [Aranesp] 60 mcg IV Q7D 01/23/21 02/17/21 History Gabapentin [Neurontin] 100 mg PO TID 01/23/21 02/17/21 History Loratadine 10 mg PO DAILY 01/23/21 02/17/21 History Nitroglycerin Sl Tabs [Nitrostat] 0.4 mg SL Q5M PRN 01/23/21 02/17/21 History rOPINIRole HCL [Requip] 0.5 mg PO TID 01/23/21 02/17/21 History Budesonide-Formot 160-4.5 Mcg 2 puff INHALATION RT-BID #1 inhaler 02/01/21 02/17/21 Rx [Symbicort 160-4.5 Mcg Inhaler] Insulin Glargine [Lantus] 20 unit SQ HS #0 02/02/21 02/17/21 Rx Furosemide [Lasix] 80 mg PO DAILY 02/17/21 02/17/21 History Lidocaine-Prilocaine Cream [Emla 1 applic TOPICAL DIRECTED PRN 02/17/21 02/17/21 History Cream 2.5%/2.5%] Sodium Bicarbonate Tab 650 mg PO BID 02/17/21 02/17/21 History Allergies Allergy/AdvReac Type Severity Reaction Status Date / Time Iodinated Contrast Media AdvReac CAN'T Verified 02/17/21 11:46 TAKE, RENAL DISEASE Iodine and Iodide Containing AdvReac CAN'T Verified 02/17/21 11:46 Produc TAKE, RENAL DISEASE Physical Exam Vitals: Vital Signs Temp Pulse Pulse Resp BP BP Pulse Ox 02/18/21 07:40 66 15 02/18/21 07:32 98 F 66 15 145/59 92 L 02/18/21 02:08 98.6 F 74 16 127/49 92 L 02/17/21 20:00 83 18 02/17/21 19:26 97.5 F L 83 18 166/69 02/17/21 17:02 97.9 F 18 164/64 02/17/21 14:45 98.2 F 83 16 147/61 02/17/21 13:55 97.7 F 70 18 126/66 100 02/17/21 12:52 98.3 F 84 18 152/52 96 02/17/21 12:26 67 18 147/59 100 02/17/21 11:56 68 17 154/62 100 02/17/21 11:46 67 18 149/64 100 02/17/21 10:30 98.2 F 68 18 110/56 97 Intake and Output 02/17/21 02/18/21 02/18/21 22:59 06:59 14:59 Intake Total 0 Output Total 1500 Balance -1500 Intake: Blood Product 0 Rc As-1 Unit 0 [id number] Output: Hemodialysis 1500 Other: # Voids 0 # Bowel Movements 0 Weight 82.1 kg Results - Lab Results Most recent lab results Calcium 8.1 mg/dL (8.4-10.2) L 02/17/21 09:52 Magnesium 1.8 mg/dL (1.6-2.3) 02/17/21 09:52 02/17/21 17:43 02/17/21 09:52 Assessment and Plan Plan: Assessment: 1. End-stage renal disease maintained on hemodialysis. He will be transitioned over to peritoneal dialysis outpatient. 2. Acute blood loss anemia status post blood transfusion. GI following. On Aranesp. 3. Diabetes mellitus. 4. Hypokalemia. Recheck today. 5. Chronic diastolic CHF with mild to moderate mitral stenosis. Plan: Hemodialysis on Saturday. Check labs today. Stop oral bicarbonate. Thank you for the consultation. I will continue to follow the patient with you during his hospital stay.
--- NOTE | 2021-02-18 11:28 | P.DS ---
Providers Date of admission: 02/17/21 11:19 Attending physician: Landy Jean Baptiste Consults: 02/17/21 11:19 Consult Physician Urgent Consulting Provider: Eduardo French Consult Reason/Comments: Dialysis Do you want consulting provider notified?: Yes Primary care physician: [facility] Course: Patient is 70-year-old male came in because of low hemoglobin of 6.1 patient does admit to having.stools about 4 of them yesterday. Patient is both on aspirin and Plavix patient last and was for his peripheral vascular disease and was in April 2020. Patient denied any fever chills. Patient denied any nausea vomiting. Patient denied any hematemesis, hematochezia. 02/18/2021 Patient's hemoglobin went up to 9.5 from around 6. no more dark stools. Discussed with cardiology and gastroenterology regarding adequate for therapy and patient will be discharged on just aspirin. I do not have any labs available from today. Nephrology is following the patient. Patient's oral by the sodium bicarbonate is being this can urine patient will be discharged today if cleared by nephrology as well. 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 Well developed, well nourished. HEENT: Pupils are round and equally reacting to light. EOMI. No scleral icterus. Does have conjunctival pallor. Normocephalic, atraumatic. No pharyngeal erythema. No thyromegaly. CARDIOVASCULAR: S1 and S2 present. No murmurs, rubs, or gallops. PULMONARY: Chest is clear to auscultation, no wheezing or crackles. ABDOMEN: Soft, nontender, nondistended, normoactive bowel sounds. No palpable organomegaly. MUSCULOSKELETAL: No joint swelling or deformity. EXTREMITIES: No cyanosis, clubbing, or pedal edema. NEUROLOGICAL: Gross neurological examination did not reveal any focal deficits. SKIN: No rashes. Assessment and plan -Acute blood loss anemia possibly of upper GI bleed patient will be discharged on Prilosec End-stage renal disease on hemo dialysis dependent patient will undergo scheduled hemodialysis. Patient probably will be transitioned to peritoneal dialysis as an outpatient -Diabetic peripheral neuropathy for which patient on gabapentin which will be continued -Depression -coronary artery disease and severe peripheral vascular disease with a recent stent in April 2022 bilateral lower extremities. Plavix will risk and urine patient will be discharged on aspirin 81 mg daily -COPD without any acute exacerbation -Gastroesophageal reflux disease -Hypertension -Cerebrovascular disease -Diabetic nephropathy and diabetic peripheral neuropathy Plan - Discharge Summary Discharge Rx Participant: Yes New Discharge Prescriptions: Continue Simvastatin [Zocor] 40 mg PO HS Ergocalciferol (Vitamin D2) [Vitamin D2] 50,000 unit PO Q14D Aspirin EC [Ecotrin Low Dose] 81 mg PO HS Ferrous Sulfate [Iron (65 MG Elemental)] 325 mg PO TID Cyanocobalamin [Vitamin B-12] 1,000 mcg PO DAILY glipiZIDE [Glucotrol] 5 mg PO BID Omeprazole [PriLOSEC] 20 mg PO HS Isosorbide Mononitrate ER [Imdur] 60 mg PO BID #60 tab.er.24h DULoxetine HCL [Cymbalta] 20 mg PO DAILY Melatonin 5 mg PO HS Folic Acid-Vit B Complex-Vit C [Nephrocaps] 1 cap PO DAILY Sennosides-Docusate Sodium [Senokot-S] 2 tab PO TID PRN PRN Reason: Constipation Nitroglycerin Sl Tabs [Nitrostat] 0.4 mg SL Q5M PRN PRN Reason: Chest Pain Darbepoetin Joel [Aranesp] 60 mcg IV Q7D Gabapentin [Neurontin] 100 mg PO TID Insulin Glargine [Lantus] 20 unit SQ HS #0 Furosemide [Lasix] 80 mg PO DAILY rOPINIRole HCL [Requip] 0.5 mg PO TID Loratadine 10 mg PO DAILY Budesonide-Formot 160-4.5 Mcg [Symbicort 160-4.5 Mcg Inhaler] 2 puff INHALATION RT-BID #1 inhaler Lidocaine-Prilocaine Cream [Emla Cream 2.5%/2.5%] 1 applic TOPICAL DIRECTED PRN PRN Reason: dialysis Discontinued Clopidogrel [Plavix] 75 mg PO HS Metoprolol Tartrate [Lopressor] 25 mg PO TID Ascorbic Acid [Vitamin C] 500 mg PO DAILY Sodium Bicarbonate Tab 650 mg PO BID Discharge Medication List Ergocalciferol (Vitamin D2) [Vitamin D2] 50,000 unit PO Q14D 07/18/17 [History] Simvastatin [Zocor] 40 mg PO HS 11/30/17 [History] Aspirin EC [Ecotrin Low Dose] 81 mg PO HS 02/10/18 [History] Ferrous Sulfate [Iron (65 MG Elemental)] 325 mg PO TID 02/10/18 [History] Cyanocobalamin [Vitamin B-12] 1,000 mcg PO DAILY 09/23/18 [History] glipiZIDE [Glucotrol] 5 mg PO BID 05/22/19 [History] Omeprazole [PriLOSEC] 20 mg PO HS 09/25/19 [History] Isosorbide Mononitrate ER [Imdur] 60 mg PO BID #60 tab.er.24h 04/21/20 [Rx] DULoxetine HCL [Cymbalta] 20 mg PO DAILY 10/27/20 [History] Folic Acid-Vit B Complex-Vit C [Nephrocaps] 1 cap PO DAILY 12/19/20 [History] Melatonin 5 mg PO HS 12/19/20 [History] Sennosides-Docusate Sodium [Senokot-S] 2 tab PO TID PRN 12/31/20 [History] Darbepoetin Joel [Aranesp] 60 mcg IV Q7D 01/23/21 [History] Gabapentin [Neurontin] 100 mg PO TID 01/23/21 [History] Loratadine 10 mg PO DAILY 01/23/21 [History] Nitroglycerin Sl Tabs [Nitrostat] 0.4 mg SL Q5M PRN 01/23/21 [History] rOPINIRole HCL [Requip] 0.5 mg PO TID 01/23/21 [History] Budesonide-Formot 160-4.5 Mcg [Symbicort 160-4.5 Mcg Inhaler] 2 puff INHALATION RT-BID #1 inhaler 02/01/21 [Rx] Insulin Glargine [Lantus] 20 unit SQ HS #0 02/02/21 [Rx] Furosemide [Lasix] 80 mg PO DAILY 02/17/21 [History] Lidocaine-Prilocaine Cream [Emla Cream 2.5%/2.5%] 1 applic TOPICAL DIRECTED PRN 02/17/21 [History] Follow up Appointment(s)/Referral(s): Lucas Singletary MD [STAFF PHYSICIAN] - 1 Week (Office closed at time of disharge, please call office on Wednesday 02/21 and make appt.) Bobby Stone MD [STAFF PHYSICIAN] - 1 Week (Office closed at time of disharge, please call office on Wednesday 02/21 and make appt.) Fidencio Hartley MD [STAFF PHYSICIAN] - 1 Week (Office closed at time of disharge, please call office on Wednesday 02/21 and make appt.) [facility] [Primary Care Provider] - 3 Days (Office closed at time of disharge, please call office on Wednesday 02/21 and make appt.) Patient Instructions/Handouts: Gastrointestinal Bleeding (DC), Anemia (DC) Discharge Disposition: HOME SELF-CARE
[2021-02-18 11:33] LABS: Glucose,Whole Blood 188 mg/dL (75-99)
[2021-02-18 12:17] LABS: Basophils # (A) 0.03 X 10*3/uL (0.00-0.10); Basophils % (A) 0.3 %; Eosinophils # (A) 0.08 X 10*3/uL (0.04-0.35); Eosinophils % (A) 0.8 %; HCT 30.3 % (39.6-50.0); HGB 9.2 g/dL (13.0-17.0); Lymphocytes # (A) 0.62 X 10*3/uL (0.90-5.00); Lymphocytes % (A) 6.1 %; MCH 30.6 pg (27.0-32.0); MCHC 30.4 g/dL (32.0-37.0); MCV 100.7 fL (80.0-97.0); Mean Platelet Volume 11.3 fL (9.5-12.2); Monocytes # (A) 0.76 X 10*3/uL (0.20-1.00); Monocytes % (A) 7.5 %; Neutrophils # (A) 8.68 X 10*3/uL (1.80-7.70); Platelet Count 257 X 10*3/uL (140-440); RBC 3.01 X 10*6/uL (4.40-5.60); RDW 17.3 % (11.5-14.5)
[2021-02-18 12:36] LABS: African American GFR (CKD) 35.6 (60.0-200.0); Anion Gap 8.5 mmol/L (4.00-12.00); BUN/Creat Ratio 8.1 Ratio (12.00-20.00); Calcium 8.6 mg/dL (8.7-10.3); Carbon Dioxide 30.5 mmol/L (21.6-31.8); Non-African American GFR(CKD) 30.7 (60.0-200.0); Potassium 3.1 mmol/L (3.5-5.5)
== END 2021-02-18 13:45 | disposition home or self-care (01) | DRG 377 ==
LOC: EC 09:29 → 4SSUR 11:19
PROVIDERS: ADMIT Internal Medicine; ATTEND Internal Medicine
PROC: 30243N1 Transfusion of Nonautologous Red Blood Cells into Central Vein, Percutaneous Approach (ICD-10-PCS; principal; 2021-02-17)
PROC: 5A1D70Z Performance of Urinary Filtration, Intermittent, Less than 6 Hours Per Day (ICD-10-PCS; 2021-02-17)
DX: K92.2 Gastrointestinal hemorrhage, unspecified (principal); N18.6 End stage renal disease; D62 Acute posthemorrhagic anemia; I13.2 Hypertensive heart and chronic kidney disease with heart failure and with stage 5 chronic kidney disease, or end stage renal disease; I50.32 Chronic diastolic (congestive) heart failure; E11.42 Type 2 diabetes mellitus with diabetic polyneuropathy; E11.51 Type 2 diabetes mellitus with diabetic peripheral angiopathy without gangrene; E11.22 Type 2 diabetes mellitus with diabetic chronic kidney disease; D63.1 Anemia in chronic kidney disease; J44.9 Chronic obstructive pulmonary disease, unspecified; I73.9 Peripheral vascular disease, unspecified; Z79.4 Long term (current) use of insulin; F32.9 Major depressive disorder, single episode, unspecified; Z99.2 Dependence on renal dialysis; I25.10 Atherosclerotic heart disease of native coronary artery without angina pectoris; Z95.820 Peripheral vascular angioplasty status with implants and grafts; I99.8 Other disorder of circulatory system; G89.29 Other chronic pain; M54.42 Lumbago with sciatica, left side; M54.41 Lumbago with sciatica, right side; K21.9 Gastro-esophageal reflux disease without esophagitis; R91.8 Other nonspecific abnormal finding of lung field; G25.81 Restless legs syndrome; I25.2 Old myocardial infarction; F43.10 Post-traumatic stress disorder, unspecified; G47.00 Insomnia, unspecified; Z77.098 Contact with and (suspected) exposure to other hazardous, chiefly nonmedicinal, chemicals; E78.5 Hyperlipidemia, unspecified; E87.6 Hypokalemia; I05.0 Rheumatic mitral stenosis; K63.5 Polyp of colon; D50.9 Iron deficiency anemia, unspecified; I67.9 Cerebrovascular disease, unspecified; F17.210 Nicotine dependence, cigarettes, uncomplicated; Z79.82 Long term (current) use of aspirin; Z79.51 Long term (current) use of inhaled steroids; Z79.02 Long term (current) use of antithrombotics/antiplatelets; Z79.899 Other long term (current) drug therapy; Z87.19 Personal history of other diseases of the digestive system; Z87.01 Personal history of pneumonia (recurrent); Z90.49 Acquired absence of other specified parts of digestive tract; Z91.041 Radiographic dye allergy status; Z80.9 Family history of malignant neoplasm, unspecified
CPT/HCPCS: 36415; 80048; 80053; 82272; 83735; 84484; 85025; 85610; 85730; 86850; 86900; 86901; 86920; 90935; 93005; 99285

== ENCOUNTER 2021-04-09 16:02 | Inpatient (IN) | payer OTHER, MEDICARE ==
[2021-04-09 16:17] LABS: Glucose,Whole Blood >600 mg/dL (75-99)
--- NOTE | 2021-04-09 16:27 | ED ---
General Adult HPI - General Chief complaint: Chest Pain Stated complaint: Chest Pain Time Seen by Provider: 04/09/21 16:06 Source: patient, EMS Mode of arrival: EMS Limitations: no limitations - History of Present Illness Initial comments: 71-year-old male with a complicated past medical history including IDDM type II, anemia with GI bleed, end-stage renal disease on hemodialysis Saturday, hyperlipidemia, hypertension presents to the emergency room for a chief of late of chest pain. Patient states he woke up today with a pain in his chest that radiated to his left shoulder and jaw. Patient states they came and went throughout the morning. He thought it was going away. When he got up it got worse and so his called 911. When they arrive his chest pain felt better but they noted his blood sugar was high and advised him to come to the emergency room. Patient states he has been taking his insulin as usual. He does admit to eating cookies today. Patient did have his dialysis on Saturday.Patient has no other complaints at this time including shortness of breath, abdominal pain, nausea or vomiting, headache, or visual changes. - Related Data Home Medications Medication Instructions Recorded Confirmed Ergocalciferol (Vitamin D2) 50,000 unit PO Q14D 07/18/17 04/09/21 [Vitamin D2] Simvastatin [Zocor] 40 mg PO HS 07/18/17 04/09/21 Aspirin EC [Ecotrin Low Dose] 81 mg PO HS 02/10/18 04/09/21 Ferrous Sulfate [Iron (65 MG 325 mg PO TID 02/10/18 04/09/21 Elemental)] Cyanocobalamin [Vitamin B-12] 1,000 mcg PO DAILY 09/23/18 04/09/21 glipiZIDE [Glucotrol] 5 mg PO BID 05/22/19 04/09/21 DULoxetine HCL [Cymbalta] 20 mg PO DAILY 10/27/20 04/09/21 Folic Acid-Vit B Complex-Vit C 1 cap PO DAILY 12/19/20 04/09/21 [Nephrocaps] Melatonin 5 mg PO HS 12/19/20 04/09/21 Sennosides-Docusate Sodium 2 tab PO TID PRN 12/31/20 04/09/21 [Senokot-S] Darbepoetin Joel [Aranesp] 60 mcg IV Q7D 01/23/21 04/09/21 Gabapentin [Neurontin] 100 mg PO TID 01/23/21 04/09/21 Loratadine 10 mg PO DAILY 01/23/21 04/09/21 Nitroglycerin Sl Tabs [Nitrostat] 0.4 mg SL Q5M PRN 01/23/21 04/09/21 rOPINIRole HCL [Requip] 0.5 mg PO TID 01/23/21 04/09/21 Furosemide [Lasix] 80 mg PO DAILY 02/17/21 04/09/21 Lidocaine-Prilocaine Cream [Emla 1 applic TOPICAL DIRECTED PRN 02/17/21 04/09/21 Cream 2.5%/2.5%] Previous Rx's Medication Instructions Recorded Isosorbide Mononitrate ER [Imdur] 60 mg PO BID #60 tab.er.24h 04/21/20 Budesonide-Formot 160-4.5 Mcg 2 puff INHALATION RT-BID #1 inhaler 02/01/21 [Symbicort 160-4.5 Mcg Inhaler] Insulin Glargine [Lantus Vial] 20 unit SQ HS #0 02/02/21 Omeprazole [PriLOSEC] 40 mg PO HS #0 02/18/21 Allergies Allergy/AdvReac Type Severity Reaction Status Date / Time Iodinated Contrast Media AdvReac CAN'T Verified 04/09/21 16:52 TAKE, RENAL DISEASE Iodine and Iodide Containing AdvReac CAN'T Verified 04/09/21 16:52 Produc TAKE, RENAL DISEASE Review of Systems ROS Statement: Those systems with pertinent positive or pertinent negative responses have been documented in the HPI. ROS Other: All systems not noted in ROS Statement are negative. Past Medical History Past Medical History: Coronary Artery Disease (CAD), Chest Pain / Angina, COPD, Diabetes Mellitus, GERD/Reflux, GI Bleed, Hyperlipidemia, Hypertension, Pneumonia, Renal Disease, Vascular Disorder Additional Past Medical History / Comment(s): IDDM type II, lower GI bleed, benign colon polyps, spouse states micro bleeds in intestine are suspected, abdominal distention comes and goes which is nearly daily, partial SBO, chronic renal disease stage IV, iron anemia with iron transfusions (recent R upper chest mediport for infusions), PVD, stable lung nodules, chronic low back pain with bilateral sciatica, RLS, vertigo, insomnia, past agent orange exposure. Last Myocardial Infarction Date:: 03/2020 History of Any Multi-Drug Resistant Organisms: None Reported Past Surgical History: Cholecystectomy, Heart Catheterization Additional Past Surgical History / Comment(s): 03/25/20 R sublclavian mediport, R carotid stent done in [place], EGD/colonoscopyDecember 2017, endoscopic capsule, fx lt wrist -sx re-set, aortagram, bilateral leg revascularizations/stents Past Anesthesia/Blood Transfusion Reactions: No Reported Reaction Additional Past Anesthesia/Blood Transfusion Reaction / Comment(s): Pt has had blood transfusion without reaction. Date of Last Stent Placement:: 04/27/20 Past Psychological History: Depression, PTSD Smoking Status: Current every day smoker Past Alcohol Use History: None Reported Past Drug Use History: None Reported - Past Family History Father History Unknown: Yes Mother Family Medical History: Cancer Additional Family Medical History / Comment(s): Mother from metastatic cancer pelvic origin. General Exam Limitations: no limitations General appearance: alert Head exam: Present: atraumatic Eye exam: Present: normal appearance, PERRL, EOMI ENT exam: Present: normal exam, mucous membranes moist Neck exam: Present: normal inspection, full ROM. Absent: tenderness Respiratory exam: Present: rales (L sided). Absent: respiratory distress, wheezes Cardiovascular Exam: Present: regular rate, normal rhythm, normal heart sounds GI/Abdominal exam: Present: soft, normal bowel sounds. 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 Patient is on 2 L nasal cannula which she does use at home as needed. EKG nonischemic. Patient was given aspirin by EMS transportation. Laboratory evaluation was initiated. CBC shows chronic anemia. CMP does show slight hyponatremia as well as chronic kidney disease. Patient is noted to have a serum glucose of 652 however anion gap is normal and acetone is negative. Patient treated with subcu insulin and sliding scale. Troponin is within normal limits. X-ray of the chest does show prominence of the lung interstitial perihilar fullness and a small right pleural effusion favored to represent fluid overload. There are patchy bibasilar airspace opacities which may be related to fluid overload however superimposed pneumonia is not excluded. Clinically patient does not have a cough fever or white blood cell count. Therefore suspect that these are due to fluid overload especially with his history of dialysis and BNP of 7500. Patient was given a dose of Lasix. Patient will be admitted for cardiology consultation given his chest pain with radiation to the jaw and shoulder. Nephrology will be consulted given hemodialysis. - Lab Data Result diagrams: 04/09/21 16:21 04/09/21 16:21 Lab Results 04/09/21 04/09/21 04/09/21 Range/Units 16:16 16:21 16:21 WBC 8.4 (3.8-10.6) k/uL RBC 2.91 L (4.30-5.90) m/uL Hgb 8.9 L (13.0-17.5) gm/dL Hct 28.7 L (39.0-53.0) % MCV 98.4 (80.0-100.0) fL MCH 30.6 (25.0-35.0) pg MCHC 31.0 (31.0-37.0) g/dL RDW 16.3 H (11.5-15.5) % Plt Count 364 (150-450) k/uL MPV 8.8 Neutrophils % 87 % Lymphocytes % 7 % Monocytes % 4 % Eosinophils % 1 % Basophils % 0 % Neutrophils # 7.3 (1.3-7.7) k/uL Lymphocytes # 0.6 L (1.0-4.8) k/uL Monocytes # 0.4 (0-1.0) k/uL Eosinophils # 0.1 (0-0.7) k/uL Basophils # 0.0 (0-0.2) k/uL Hypochromasia Marked Poikilocytosis Slight Anisocytosis Slight Macrocytosis Slight PT 9.6 (9.0-12.0) sec INR 0.9 (<1.2) APTT 25.1 (22.0-30.0) sec Sodium (137-145) mmol/L Potassium (3.5-5.1) mmol/L Chloride (98-107) mmol/L Carbon Dioxide (22-30) mmol/L Anion Gap mmol/L BUN (9-20) mg/dL Creatinine (0.66-1.25) mg/dL Est GFR (CKD-EPI)AfAm (>60 ml/min/1.73 sqM) Est GFR (CKD-EPI)NonAf (>60 ml/min/1.73 sqM) Glucose (74-99) mg/dL POC Glucose (mg/dL) >600 H (75-99) mg/dL POC Glu Human Resource Professional ID Belval, Suzanna Calcium (8.4-10.2) mg/dL Magnesium (1.6-2.3) mg/dL Total Bilirubin (0.2-1.3) mg/dL AST (17-59) U/L ALT (4-49) U/L Alkaline Phosphatase (38-126) U/L Troponin I (0.000-0.034) ng/mL NT-Pro-B Natriuret Pep pg/mL Total Protein (6.3-8.2) g/dL Albumin (3.5-5.0) g/dL Acetone, Qual (Negative) 04/09/21 04/09/21 04/09/21 Range/Units 16:21 16:21 16:21 WBC (3.8-10.6) k/uL RBC (4.30-5.90) m/uL Hgb (13.0-17.5) gm/dL Hct (39.0-53.0) % MCV (80.0-100.0) fL MCH (25.0-35.0) pg MCHC (31.0-37.0) g/dL RDW (11.5-15.5) % Plt Count (150-450) k/uL MPV Neutrophils % % Lymphocytes % % Monocytes % % Eosinophils % % Basophils % % Neutrophils # (1.3-7.7) k/uL Lymphocytes # (1.0-4.8) k/uL Monocytes # (0-1.0) k/uL Eosinophils # (0-0.7) k/uL Basophils # (0-0.2) k/uL Hypochromasia Poikilocytosis Anisocytosis Macrocytosis PT (9.0-12.0) sec INR (<1.2) APTT (22.0-30.0) sec Sodium 129 L (137-145) mmol/L Potassium 4.1 (3.5-5.1) mmol/L Chloride 94 L (98-107) mmol/L Carbon Dioxide 26 (22-30) mmol/L Anion Gap 9 mmol/L BUN 27 H (9-20) mg/dL Creatinine 3.18 H (0.66-1.25) mg/dL Est GFR (CKD-EPI)AfAm 21 (>60 ml/min/1.73 sqM) Est GFR (CKD-EPI)NonAf 19 (>60 ml/min/1.73 sqM) Glucose 652 H* (74-99) mg/dL POC Glucose (mg/dL) (75-99) mg/dL POC Glu Human Resource Professional ID Calcium 8.3 L (8.4-10.2) mg/dL Magnesium 2.1 (1.6-2.3) mg/dL Total Bilirubin <0.1 L (0.2-1.3) mg/dL AST 16 L (17-59) U/L ALT 8 (4-49) U/L Alkaline Phosphatase 129 H (38-126) U/L Troponin I 0.015 (0.000-0.034) ng/mL NT-Pro-B Natriuret Pep 7500 pg/mL Total Protein 5.7 L (6.3-8.2) g/dL Albumin 3.0 L (3.5-5.0) g/dL Acetone, Qual (Negative) 04/09/21 04/09/21 Range/Units 16:21 16:27 WBC (3.8-10.6) k/uL RBC (4.30-5.90) m/uL Hgb (13.0-17.5) gm/dL Hct (39.0-53.0) % MCV (80.0-100.0) fL MCH (25.0-35.0) pg MCHC (31.0-37.0) g/dL RDW (11.5-15.5) % Plt Count (150-450) k/uL MPV Neutrophils % % Lymphocytes % % Monocytes % % Eosinophils % % Basophils % % Neutrophils # (1.3-7.7) k/uL Lymphocytes # (1.0-4.8) k/uL Monocytes # (0-1.0) k/uL Eosinophils # (0-0.7) k/uL Basophils # (0-0.2) k/uL Hypochromasia Poikilocytosis Anisocytosis Macrocytosis PT (9.0-12.0) sec INR (<1.2) APTT (22.0-30.0) sec Sodium (137-145) mmol/L Potassium 4.0 (3.5-5.1) mmol/L Chloride (98-107) mmol/L Carbon Dioxide (22-30) mmol/L Anion Gap mmol/L BUN (9-20) mg/dL Creatinine (0.66-1.25) mg/dL Est GFR (CKD-EPI)AfAm (>60 ml/min/1.73 sqM) Est GFR (CKD-EPI)NonAf (>60 ml/min/1.73 sqM) Glucose (74-99) mg/dL POC Glucose (mg/dL) (75-99) mg/dL POC Glu Human Resource Professional ID Calcium (8.4-10.2) mg/dL Magnesium (1.6-2.3) mg/dL Total Bilirubin (0.2-1.3) mg/dL AST (17-59) U/L ALT (4-49) U/L Alkaline Phosphatase (38-126) U/L Troponin I (0.000-0.034) ng/mL NT-Pro-B Natriuret Pep pg/mL Total Protein (6.3-8.2) g/dL Albumin (3.5-5.0) g/dL Acetone, Qual Negative (Negative) Disposition Clinical Impression: Chest pain, Hyperglycemia, Hyponatremia, Chronic anemia, CKD (chronic kidney disease) Disposition: ADMITTED IP TO THIS HOSP Condition: Serious Is patient prescribed a controlled substance at d/c from ED?: No Referrals: [facility],Clinic [Primary Care Provider] - 1-2 days Time of Disposition: 18:24
--- NOTE | 2021-04-09 17:13 | XR ---
EXAMINATION TYPE: XR chest 2V DATE OF EXAM: 04/09/2021 COMPARISON: Chest radiograph 04/04/2021 HISTORY: Chest pain TECHNIQUE: Frontal and lateral views of the chest are obtained. FINDINGS: Right-sided central venous port with tip overlying the cavoatrial junction. Cardiomediasti nal silhouette appears within normal limits. Prominence of the lung interstitium and perihilar fullne ss. Patchy bibasilar airspace opacities. Small right pleural effusion. No pneumothorax. Visualized os seous structures and upper abdomen appear unremarkable. IMPRESSION: 1. Prominence of the lung interstitium with perihilar fullness and small right pleural effusion. Find ings are favored to represent fluid overload. 2. Patchy bibasilar airspace opacities which may be related to fluid overload; however, superimposed pneumonia is not excluded. Recommend appropriate clinical correlation.
[2021-04-09 17:23] LABS: Anisocytosis Slight; Basophils % (A) 0 %; Eosinophils # (A) 0.1 k/uL (0-0.7); Eosinophils % (A) 1 %; HCT 28.7 % (39.0-53.0); HGB 8.9 gm/dL (13.0-17.5); Hypochromasia Marked; Lymphocytes # (A) 0.6 k/uL (1.0-4.8); Lymphocytes % (A) 7 %; MCH 30.6 pg (25.0-35.0); MCV 98.4 fL (80.0-100.0); Macrocytosis Slight; Mean Platelet Volume 8.8; Monocytes # (A) 0.4 k/uL (0-1.0); Monocytes % (A) 4 %; Neutrophils # (A) 7.3 k/uL (1.3-7.7); Neutrophils % (A) 87 %; Platelet Count 364 k/uL (150-450); Poikilocytosis Slight; RBC 2.91 m/uL (4.30-5.90); RDW 16.3 % (11.5-15.5); WBC 8.4 k/uL (3.8-10.6)
[2021-04-09 17:31] LABS: ALT 8 U/L (4-49); AST 16 U/L (17-59); African American GFR (CKD) 21 (>60 ml/min/1.73 sqM); Alkaline Phosphatase 129 U/L (38-126); Anion Gap 9 mmol/L; Blood Urea Nitrogen 27 mg/dL (9-20); Calcium 8.3 mg/dL (8.4-10.2); Carbon Dioxide 26 mmol/L (22-30); Chloride 94 mmol/L (98-107); Magnesium 2.1 mg/dL (1.6-2.3); Non-African American GFR(CKD) 19 (>60 ml/min/1.73 sqM); Potassium 4.1 mmol/L (3.5-5.1); Sodium 129 mmol/L (137-145); Total Bilirubin <0.1 mg/dL (0.2-1.3); Total Protein 5.7 g/dL (6.3-8.2)
[2021-04-09 17:34] LABS: INR 0.9 (<1.2); Partial Thromboplastin Time 25.1 sec (22.0-30.0); Prothrombin Time 9.6 sec (9.0-12.0)
[2021-04-09 17:45] LABS: Glucose 652 mg/dL (74-99)
[2021-04-09] MEDS ORDERED: INSULIN ASPART (NovoLOG) 100 UNIT/ML VIAL SQ STA (18:21)
[2021-04-09] MEDS ORDERED: FUROSEMIDE 10 MG/ML 4 ML VIAL IV STA (18:25)
[2021-04-09] MEDS ORDERED: LIDOCAINE-PRILOCAINE 2.5-2.5% CREAM 5 GM TUBE TOPICAL PRN (18:25)
[2021-04-09] MEDS ORDERED: SENNOSIDES-DOCUSATE SODIUM 1 EACH TAB PO PRN (18:25)
[2021-04-09] MEDS ORDERED: LORazepam 2 MG/ML INJ IV STA (18:25)
[2021-04-09 19:57] LABS: Glucose,Whole Blood 431 mg/dL (75-99)
[2021-04-09 20:08] LABS: Appearance,Urine Clear (Clear); Bacteria,Urine Rare /hpf; Bilirubin,Urine Negative (Negative); Blood,Urine Negative (Negative); Color,Urine Light Yellow; Glucose,Urine (UA) 4+ (Negative); Ketones,Urine Negative (Negative); Leukocyte Esterase,Urine Negative (Negative); Nitrite,Urine Negative (Negative); Protein,Urine 2+ (Negative); RBC,Urine 1 /hpf (0-5); Specific Gravity,Urine 1.014 (1.001-1.035); Urobilinogen,Urine <2.0 mg/dL (<2.0); WBC,Urine <1 /hpf (0-5)
[2021-04-09] MEDS ORDERED: PANTOPRAZOLE 40 MG TABLET PO SCH (21:00)
[2021-04-09] MEDS ORDERED: INSULIN ASPART (NovoLOG) 100 UNIT/ML VIAL SQ ONE (21:24)
[2021-04-09] MEDS ORDERED: HEPARIN SODIUM 1,000 UN/ML (10ML VL) IV ONE (21:29)
[2021-04-09] MEDS ORDERED: HEPARIN SODIUM 1,000 UN/ML (10ML VL) IV PRN (21:29)
[2021-04-09] MEDS: HEPARIN SOD,PORK IN 0.45% NACL 25,000 UNIT in 0.45% NACL 1 250ML.BAG IV SCH (21:53)
[2021-04-09] MEDS: ISOSORBIDE MONONITRATE ER 60 MG TAB.ER.24H PO SCH (21:54)
[2021-04-09] MEDS: ASPIRIN 81 MG PO SCH (21:54)
[2021-04-09] MEDS: MELATONIN 5 MG TABLET PO SCH (21:54)
[2021-04-09] MEDS: ATORVASTATIN 20 MG TAB PO SCH (21:54)
[2021-04-09] MEDS: SYMBICORT 160-4.5 MCG INHALER INHALATION SCH ×2 (22:09→22:25)
[2021-04-09 22:39] LABS: Glucose,Whole Blood 239 mg/dL (75-99)
[2021-04-09] MEDS: FERROUS SULFATE 325 MG TAB PO SCH (22:46)
[2021-04-09] MEDS: GABAPENTIN 100 MG CAP PO SCH (22:46)
[2021-04-09] MEDS: INSULIN ASPART (NovoLOG) 100 UNIT/ML VIAL SQ SCH (22:47)
[2021-04-10 03:25] LABS: Anisocytosis Slight; Basophils # (A) 0.1 k/uL (0-0.2); Basophils % (A) 1 %; Eosinophils # (A) 0.3 k/uL (0-0.7); Eosinophils % (A) 3 %; HCT 28.4 % (39.0-53.0); HGB 8.9 gm/dL (13.0-17.5); Hypochromasia Marked; Lymphocytes # (A) 1.2 k/uL (1.0-4.8); Lymphocytes % (A) 10 %; MCH 30.4 pg (25.0-35.0); MCHC 31.3 g/dL (31.0-37.0); MCV 97.1 fL (80.0-100.0); Macrocytosis Slight; Mean Platelet Volume 8.2; Monocytes # (A) 0.5 k/uL (0-1.0); Monocytes % (A) 4 %; Neutrophils # (A) 9.6 k/uL (1.3-7.7); Neutrophils % (A) 80 %; Platelet Count 407 k/uL (150-450); Poikilocytosis Slight; RBC 2.92 m/uL (4.30-5.90); RDW 16.7 % (11.5-15.5); WBC 12.1 k/uL (3.8-10.6)
[2021-04-10 03:56] LABS: INR 0.9 (<1.2); Partial Thromboplastin Time 25.6 sec (22.0-30.0); Prothrombin Time 9.7 sec (9.0-12.0)
[2021-04-10 05:57] LABS: Glucose,Whole Blood 102 mg/dL (75-99)
[2021-04-10] MEDS: INSULIN ASPART (NovoLOG) 100 UNIT/ML VIAL SQ SCH ×4 (06:20→21:24)
[2021-04-10] MEDS: SYMBICORT 160-4.5 MCG INHALER INHALATION SCH ×2 (08:36→18:43)
[2021-04-10] MEDS ORDERED: DARBEPOETIN ALFA 60 MCG/0.3 ML SYRINGE IV SCH (09:00)
[2021-04-10] MEDS ORDERED: ERGOCALCIFEROL 1,250 MCG (50,000 IU) CAPSULE PO SCH (09:00)
[2021-04-10] MEDS ORDERED: ASPIRIN 325 MG TAB PO STA (09:07)
[2021-04-10] MEDS ORDERED: ALPRAZolam 0.5 MG TAB PO PRN (09:07)
[2021-04-10] MEDS ORDERED: NITROGLYCERIN SL TABS 0.4 MG TAB SUBLINGUAL PRN ×2 (09:07→12:58)
[2021-04-10] MEDS ORDERED: SODIUM CHLORIDE 0.9% 1,000 ML in EMPTY BAG 1 BAG IV ONE ×2 (09:07→09:30)
[2021-04-10] MEDS ORDERED: ALPRAZolam 0.25 MG TAB PO PRN (09:07)
[2021-04-10] MEDS ORDERED: ATORVASTATIN 80 MG TAB PO STA (09:07)
[2021-04-10] MEDS: GABAPENTIN 100 MG CAP PO SCH ×3 (09:23→21:24)
[2021-04-10] MEDS: CYANOCOBALAMIN 500 MCG TAB PO SCH (09:23)
[2021-04-10] MEDS: FOLIC ACID-VIT B COMPLEX-VIT C 1 CAP PO SCH (09:23)
[2021-04-10] MEDS: LORATADINE 10 MG TAB PO SCH (09:23)
[2021-04-10] MEDS: FUROSEMIDE 10 MG/ML 4 ML VIAL IV SCH ×2 (09:23→21:25)
[2021-04-10] MEDS: METOPROLOL TARTRATE 25 MG TAB PO SCH ×2 (09:24→21:24)
[2021-04-10] MEDS: ISOSORBIDE MONONITRATE ER 60 MG TAB.ER.24H PO SCH ×2 (09:24→21:24)
[2021-04-10] MEDS: DULoxetine HCL 20 MG CAPSULE.DR PO SCH (09:24)
[2021-04-10] MEDS: FERROUS SULFATE 325 MG TAB PO SCH ×3 (09:24→21:24)
--- NOTE | 2021-04-10 09:24 | P.NPCON ---
History of Present Illness - Reason for Consult end stage renal disease - History of Present Illness Reason for consultation: End-stage renal disease History of present illness: Patient is a 71-year-old male seen in renal consultation for end-stage renal disease. He is maintained on hemodialysis on Saturday schedule. Patient presented to the hospital due to pain and is left chest which began yesterday morning. Patient states he took a nitroglycerin which helped relieve the pain. He also complains of pain going down to his left arm and in his jaw. He also became short of breath but is better now. He is currently on 4 L nasal cannula. Blood pressure stable. Patient does have history of coronary artery disease with last stent placed in April 2020. No vomiting or diarrhea. Does feel nauseous at times. No fever or chills. Vital signs are stable. General: The patient appeared well nourished and normally developed. HEENT: Head exam is unremarkable. Neck is without jugular venous distension. LUNGS: Breath sounds decreased. HEART: Rate and Rhythm are regular. ABDOMEN: Soft, no distention. EXTREMITITES: No edema. Past Medical History Past Medical History: Coronary Artery Disease (CAD), Chest Pain / Angina, COPD, Diabetes Mellitus, GERD/Reflux, GI Bleed, Hyperlipidemia, Hypertension, Pneumonia, Renal Disease, Vascular Disorder Additional Past Medical History / Comment(s): IDDM type II, lower GI bleed, benign colon polyps, spouse states micro bleeds in intestine are suspected, abdominal distention comes and goes which is nearly daily, partial SBO, chronic renal disease stage IV, iron anemia with iron transfusions (recent R upper chest mediport for infusions), PVD, stable lung nodules, chronic low back pain with bilateral sciatica, RLS, vertigo, insomnia, past agent orange exposure. Last Myocardial Infarction Date:: 03/2020 History of Any Multi-Drug Resistant Organisms: None Reported Past Surgical History: Cholecystectomy, Heart Catheterization Additional Past Surgical History / Comment(s): 03/25/20 R sublclavian mediport, R carotid stent done in [place], EGD/colonoscopyDecember 2016, endoscopic capsule, fx lt wrist -sx re-set, aortagram, bilateral leg revascularizations/stents Past Anesthesia/Blood Transfusion Reactions: No Reported Reaction Additional Past Anesthesia/Blood Transfusion Reaction / Comment(s): Pt has had blood transfusion without reaction. Date of Last Stent Placement:: 04/27/20 Past Psychological History: Depression, PTSD Additional Psychological History / Comment(s): Pt resides with his spouse and their 2 dogs. Pt uses a cane to ambulate. He has a mobility scooter which he uses prn. He does not drive, his spouse drives. Pt served in the [employer] for 2 tours in [employer]. Spouse states pt and herself are being trained to perform home dialysis. Smoking Status: Current every day smoker Past Alcohol Use History: None Reported Additional Past Alcohol Use History / Comment(s): Pt started smoking in 1964 and is a 1 ppd smoker. Past Drug Use History: None Reported Additional Drug Use History / Comment(s): Pt states he takes a couple puffs from a marijuana joint occasionally - Past Family History Father History Unknown: Yes Mother Family Medical History: Cancer Additional Family Medical History / Comment(s): Mother from metastatic cancer pelvic origin. Medications and Allergies Home Medications Medication Instructions Recorded Confirmed Type Ergocalciferol (Vitamin D2) 50,000 unit PO Q14D 07/18/17 04/09/21 History [Vitamin D2] Simvastatin [Zocor] 40 mg PO HS 07/18/17 04/09/21 History Aspirin EC [Ecotrin Low Dose] 81 mg PO HS 02/10/18 04/09/21 History Ferrous Sulfate [Iron (65 MG 325 mg PO TID 02/10/18 04/09/21 History Elemental)] Cyanocobalamin [Vitamin B-12] 1,000 mcg PO DAILY 09/23/18 04/09/21 History glipiZIDE [Glucotrol] 5 mg PO BID 05/22/19 04/09/21 History Isosorbide Mononitrate ER [Imdur] 60 mg PO BID #60 tab.er.24h 04/21/20 04/09/21 Rx DULoxetine HCL [Cymbalta] 20 mg PO DAILY 10/27/20 04/09/21 History Folic Acid-Vit B Complex-Vit C 1 cap PO DAILY 12/19/20 04/09/21 History [Nephrocaps] Melatonin 5 mg PO HS 12/19/20 04/09/21 History Sennosides-Docusate Sodium 2 tab PO TID PRN 12/31/20 04/09/21 History [Senokot-S] Darbepoetin Joel [Aranesp] 60 mcg IV Q7D 01/23/21 04/09/21 History Gabapentin [Neurontin] 100 mg PO TID 01/23/21 04/09/21 History Loratadine 10 mg PO DAILY 01/23/21 04/09/21 History Nitroglycerin Sl Tabs [Nitrostat] 0.4 mg SL Q5M PRN 01/23/21 04/09/21 History rOPINIRole HCL [Requip] 0.5 mg PO TID 01/23/21 04/09/21 History Budesonide-Formot 160-4.5 Mcg 2 puff INHALATION RT-BID #1 inhaler 02/01/21 04/09/21 Rx [Symbicort 160-4.5 Mcg Inhaler] Insulin Glargine [Lantus Vial] 20 unit SQ HS #0 02/02/21 04/09/21 Rx Furosemide [Lasix] 80 mg PO DAILY 02/17/21 04/09/21 History Lidocaine-Prilocaine Cream [Emla 1 applic TOPICAL DIRECTED PRN 02/17/21 04/09/21 History Cream 2.5%/2.5%] Omeprazole [PriLOSEC] 40 mg PO HS #0 02/18/21 04/09/21 Rx Allergies Allergy/AdvReac Type Severity Reaction Status Date / Time Iodinated Contrast Media AdvReac CAN'T Verified 04/09/21 16:52 TAKE, RENAL DISEASE Iodine and Iodide Containing AdvReac CAN'T Verified 04/09/21 16:52 Produc TAKE, RENAL DISEASE Physical Exam Vitals: Vital Signs Temp Pulse Pulse Pulse Resp BP BP 04/10/21 08:40 04/10/21 08:00 98 F 66 18 147/65 04/10/21 04:00 86 16 04/10/21 01:03 60 18 04/09/21 23:49 97.8 F 60 18 04/09/21 20:03 96.9 F L 78 16 145/60 04/09/21 16:24 92 04/09/21 16:05 97.8 F 92 16 144/62 BP Pulse Ox 04/10/21 08:40 95 04/10/21 08:00 98 04/10/21 04:00 152/56 100 04/10/21 01:03 04/09/21 23:49 175/64 94 L 04/09/21 20:03 98 04/09/21 16:24 04/09/21 16:05 92 L Intake and Output 04/09/21 04/10/21 04/10/21 22:59 06:59 14:59 Intake Total 72.644 Balance 72.644 Intake: Intake, IV Titration 72.644 Amount Heparin Sod,Pork in 0.45% 72.644 NaCl 25,000 unit In 0.45 % NaCl 1 250ml.bag @ 12 UNITS/KG/HR 9.906 mls/hr IV .Q24H GRECIA Rx#: [id number] Other: # Voids 1 Weight 82.554 kg 80.4 kg Results - Lab Results Most recent lab results Calcium 8.3 mg/dL (8.4-10.2) L 04/09/21 16:21 Magnesium 2.1 mg/dL (1.6-2.3) 04/09/21 16:21 04/10/21 02:37 04/09/21 16:21 Assessment and Plan Plan: Assessment: 1. End-stage renal disease maintained on hemodialysis on Saturday schedule. 2. Chest pain. Concern for acute coronary syndrome. Cardiology following. On IV heparin. 3. History of coronary artery disease status post stent placement. 4. Anemia of chronic kidney disease. Rule out iron deficiency. Maintained on Aranesp. 5. Volume overload. 6. Diabetes mellitus. 7. Hypertonic hyponatremia secondary to hyperglycemia. Plan: Hemodialysis today. Check iron studies. Case discussed with cardiology. Possible cardiac catheterization this admission. Hep-Lock IV fluids as patient is hypervolemic. Tight blood sugar control. Thank you for the consultation. I will continue to follow the patient with you during his hospital stay.
[2021-04-10 10:21] LABS: Glucose,Whole Blood 138 mg/dL (75-99)
[2021-04-10] MEDS ORDERED: LIDOCAINE 1% INJ 10MG/ML (20 ML MDV) ONE (11:01)
[2021-04-10] MEDS ORDERED: VERAPAMIL 2.5 MG/ML 2 ML AMP ONE (11:02)
[2021-04-10] MEDS ORDERED: fentaNYL (PF) 50 MCG/ML 2 ML AMP ONE (11:33)
[2021-04-10] MEDS ORDERED: HEPARIN SODIUM 1,000 UN/ML (10ML VL) ONE (11:33)
[2021-04-10] MEDS ORDERED: MIDAZOLAM 2 MG/2 ML VIAL IV ONE (11:37)
[2021-04-10] MEDS ORDERED: IV FLUID CONTINUATION 600 ML IV ONE (11:38)
[2021-04-10] MEDS ORDERED: fentaNYL (PF) 50 MCG/ML 2 ML AMP IV ONE (11:38)
[2021-04-10] MEDS ORDERED: LIDOCAINE 1% INJ 10MG/ML (20 ML MDV) SQ ONE (11:38)
[2021-04-10] MEDS: VERAPAMIL SYRINGE (5 MG/10 ML) INTRAARTER ONE ×2 (11:43→12:54)
[2021-04-10] MEDS ORDERED: HEPARIN SODIUM 1,000 UN/ML (10ML VL) IV ONE (11:44)
--- NOTE | 2021-04-10 12:18 | P.CARDCATH ---
Date of Procedure: 04/10/21 Preoperative Diagnosis: Unstable angina, non-STEMI Postoperative Diagnosis: Critical lesion involving the PDA and moderate to severe disease in the RCA Procedure(s) Performed: Left heart catheterization without left ventriculography Description of Procedure: HISTORY: This is a 71-year-old gentleman with history of ischemic heart disease and previous stent placement comes to the hospital with complaints of chest pain and positive troponin. Patient is advised to have a cardiac catheterization for diagnosis CONSENT:I have discussed the risks, benefits and alternative therapies for the above-mentioned procedure and for both sedation/analgesia as well as necessary blood product administration, if indicated, as they pertain to this patient. The patient has indicated understanding and acceptance of the risks and procedures discussed. PROCEDURE: Patient was brought to the lab in a fasting state. Patient was given some IV sedation. The right wrist is infiltrated with lidocaine and right radial artery was entered using Seldinger technique. A 6-Malaw[place] catheter was left in place and selective coronary arteriography was performed. Patient tolerated the procedure well. Patient is waiting to have intervention by Dr. Boyd. No immediate complications were noted Conscious Sedation: Versed 1mg Fentanyl 50] g Duration 26minutes HEMODYNAMICS: The aortic pressure is 130/65 SELECTIVE CORONARY ARTERIOGRAPHY: LEFT MAIN: Normal length and free of occlusive disease THE LEFT ANTERIOR DESCENDING CORONARY ARTERY: . A good caliber vessel giving rise to several diagonal and septal branches. Free of any significant occlusive disease THE LEFT CIRCUMFLEX AND IS CORONARY ARTERY: Moderate caliber vessel and free of any significant focal lesions THE RIGHT CORONARY ARTERY: . Good caliber vessel with in-stent stenosis involving the ostium of the PDA with 80-90% stenosis. This seemed to be extension to flexion RCA LEFT VENTRICULOGRAPHY: Not performed FINAL IMPRESSION: Critical lesion Involving the PDA and distal RCA. Rest of the coronary system is no significant focal lesions PLAN: Stent placement of the RCA PROGNOSIS: . FAIR
[2021-04-10 12:35] LABS: Chol/HDL Ratio 2.19; LDL Cholesterol,Calculated 33.2 mg/dL (0.0-131.0); VLDL Calculation 17.8 mg/dL (5.00-40.00)
[2021-04-10] MEDS ORDERED: IOPAMIDOL-370 125ML BTL INJ ONE (12:45)
[2021-04-10] MEDS ORDERED: CLOPIDOGREL 75 MG TAB ONE (12:50)
[2021-04-10] MEDS ORDERED: CLOPIDOGREL 75 MG TAB PO ONE (12:52)
[2021-04-10] MEDS ORDERED: IOPAMIDOL-370 100ML BTL INJ ONE (12:53)
[2021-04-10] MEDS ORDERED: ZOLPIDEM 5 MG TAB PO PRN (12:58)
[2021-04-10] MEDS ORDERED: MAG HYDROX/AL HYDROX/SIMETH 30 ML CUP PO PRN (12:58)
[2021-04-10] MEDS ORDERED: ATROPINE SULFATE 0.1 MG/ML 10ML SYRINGE IV PRN (12:58)
[2021-04-10] MEDS ORDERED: RX INFO: IV CONTRAST WAS GIVEN 1 EACH MISC MISCELLANE PRN (12:58)
[2021-04-10] MEDS ORDERED: SODIUM CHLORIDE 0.9% 1,000 ML IV SCH (13:00)
--- NOTE | 2021-04-10 13:30 | P.CRDCN ---
History of Present Illness Consult date: 04/10/21 History of present illness: HISTORY OF PRESENT ILLNESS: This is a 71-year-old male with a past medical history significant for chronic kidney disease on hemodialysis, hypertension, hyperlipidemia, and coronary artery disease with recent PCI in April 2020 of ostial PDA branch of the RCA. Patient follows in the office with Dr. Sims. We have been asked to see the patient in consultation for elevated troponins. Patient examined at the bedside. Patient states his stream morning he woke up with chest pain. He states it felt like a heavy pressure sensation in the middle of his chest. He states the pain went into his left arm and shoulder and also into his jaw. He reports feeling short of breath at that time. He states he took sublingual nitro which helped the pain for a little while and then the pain returned so he decided to come to the emergency room for further evaluation. The patient was found to have normal troponins. He was started on IV heparin. At the time of examination, the patient denies chest pain or pressure. EKG reveals sinus mechanism with no signs of acute ischemia Chest xray prominence of the lung interstitium with perihilar fullness and small right pleural effusion. Findings are favored to represent fluid overload. Patchy bibasilar airspace opacities which may be related to fluid overload de guzman osiel superimposed pneumonia was not excluded. Laboratory data: WBC 12.1. Hemoglobin 8.9. Platelet count 407. Sodium 129. Potassium 4.1. BUN 27. Creatinine 3.18. Glucose 652. Troponin 0.015. 0.134. 0.306. ProBNP 7500. Current home cardiac medications include simvastatin 40 mg daily, Imdur 60 mg twice a day, Lasix 80 mg daily, and aspirin 81 mg daily Most recent echocardiogram obtained in December 2020 revealed ejection fraction 50- 55%, mild aortic regurgitation, mild aortic stenosis, mild mitral regurgitation, and mild to moderate mitral stenosis Cardiac catheterization history: April 2020 with PCI of the ostial PDA branch of RCA REVIEW OF SYSTEMS: At the time of my exam: CONSTITUTIONAL: Denies fever or chills. HEENT: Denies blurred vision, vision changes, or eye pain. Denies hemoptysis CARDIOVASCULAR: Denies chest pain. Denies orthopnea. Denies PND. Denies palpitations RESPIRATORY: Denies shortness of breath. GASTROINTESTINAL: Denies abdominal pain. Denies nausea or vomiting. HEMATOLOGIC: Denies bleeding disorders. GENITOURINARY: Denies any blood in urine. SKIN: Denies pruitis. Denies rash. PHYSICAL EXAM: VITAL SIGNS: Reviewed. GENERAL: Well-developed in no acute distress. HEENT: Head is normocephalic. Pupils are equal, round. Sclerae anicteric. Mucous membranes of the mouth are moist. Neck supple. No JVD or thyromegaly LUNGS: Respirations even and unlabored. Lungs essentially clear to auscultation bilaterally. HEART: Regular rate and rhythm. S1 and S2 heard. ABDOMEN: Soft. Nondistended. Nontender. EXTREMITIES: Normal range of motion. No clubbing or cyanosis. Peripheral pulses intact. No lower extremity edema NEUROLOGIC: Awake and alert. Oriented x 3. ASSESSMENT: Non-ST elevated myocardial infarction Coronary artery disease with previous PCI, most recent in April 2020 Chronic kidney disease on hemodialysis Acute of chronic diastolic congestive heart failure Hypertension Hyperlipidemia Peripheral vascular disease with previous intervention to lower extremities PLAN: Obtain 2-D echo to assess cardiac structure and function Continue IV heparin Resume home cardiac medications Patient to undergo cardiac cath today with Dr. Sims Further recommendations pending patient course Nurse practitioner note has been reviewed by physician. Signing provider agrees with the documented findings, assessment, and plan of care. Past Medical History Past Medical History: Coronary Artery Disease (CAD), Chest Pain / Angina, COPD, Diabetes Mellitus, GERD/Reflux, GI Bleed, Hyperlipidemia, Hypertension, Pneumonia, Renal Disease, Vascular Disorder Additional Past Medical History / Comment(s): IDDM type II, lower GI bleed, benign colon polyps, spouse states micro bleeds in intestine are suspected, abdominal distention comes and goes which is nearly daily, partial SBO, chronic renal disease stage IV, iron anemia with iron transfusions (recent R upper chest mediport for infusions), PVD, stable lung nodules, chronic low back pain with bilateral sciatica, RLS, vertigo, insomnia, past agent orange exposure. Last Myocardial Infarction Date:: 03/2020 History of Any Multi-Drug Resistant Organisms: None Reported Past Surgical History: Cholecystectomy, Heart Catheterization Additional Past Surgical History / Comment(s): 03/25/20 R sublclavian mediport, R carotid stent done in [place], EGD/colonoscopyDecember 2016, endoscopic capsule, fx lt wrist -sx re-set, aortagram, bilateral leg revascularizations/stents Past Anesthesia/Blood Transfusion Reactions: No Reported Reaction Additional Past Anesthesia/Blood Transfusion Reaction / Comment(s): Pt has had blood transfusion without reaction. Date of Last Stent Placement:: 04/27/20 Past Psychological History: Depression, PTSD Additional Psychological History / Comment(s): Pt resides with his spouse and their 2 dogs. Pt uses a cane to ambulate. He has a mobility scooter which he uses prn. He does not drive, his spouse drives. Pt served in the [employer] for 2 tours in [place]. Spouse states pt and herself are being trained to perform home dialysis. Smoking Status: Current every day smoker Past Alcohol Use History: None Reported Additional Past Alcohol Use History / Comment(s): Pt started smoking in 1964 and is a 1 ppd smoker. Past Drug Use History: None Reported Additional Drug Use History / Comment(s): Pt states he takes a couple puffs from a marijuana joint occasionally - Past Family History Father History Unknown: Yes Mother Family Medical History: Cancer Additional Family Medical History / Comment(s): Mother from metastatic cancer pelvic origin. Medications and Allergies Home Medications Medication Instructions Recorded Confirmed Type Ergocalciferol (Vitamin D2) 50,000 unit PO Q14D 07/18/17 04/09/21 History [Vitamin D2] Simvastatin [Zocor] 40 mg PO HS 07/18/17 04/09/21 History Aspirin EC [Ecotrin Low Dose] 81 mg PO HS 02/10/18 04/09/21 History Ferrous Sulfate [Iron (65 MG 325 mg PO TID 02/10/18 04/09/21 History Elemental)] Cyanocobalamin [Vitamin B-12] 1,000 mcg PO DAILY 09/23/18 04/09/21 History glipiZIDE [Glucotrol] 5 mg PO BID 05/22/19 04/09/21 History Isosorbide Mononitrate ER [Imdur] 60 mg PO BID #60 tab.er.24h 04/21/20 04/09/21 Rx DULoxetine HCL [Cymbalta] 20 mg PO DAILY 10/27/20 04/09/21 History Folic Acid-Vit B Complex-Vit C 1 cap PO DAILY 12/19/20 04/09/21 History [Nephrocaps] Melatonin 5 mg PO HS 12/19/20 04/09/21 History Sennosides-Docusate Sodium 2 tab PO TID PRN 12/31/20 04/09/21 History [Senokot-S] Darbepoetin Joel [Aranesp] 60 mcg IV Q7D 01/23/21 04/09/21 History Gabapentin [Neurontin] 100 mg PO TID 01/23/21 04/09/21 History Loratadine 10 mg PO DAILY 01/23/21 04/09/21 History Nitroglycerin Sl Tabs [Nitrostat] 0.4 mg SL Q5M PRN 01/23/21 04/09/21 History rOPINIRole HCL [Requip] 0.5 mg PO TID 01/23/21 04/09/21 History Budesonide-Formot 160-4.5 Mcg 2 puff INHALATION RT-BID #1 inhaler 02/01/21 04/09/21 Rx [Symbicort 160-4.5 Mcg Inhaler] Insulin Glargine [Lantus Vial] 20 unit SQ HS #0 02/02/21 04/09/21 Rx Furosemide [Lasix] 80 mg PO DAILY 02/17/21 04/09/21 History Lidocaine-Prilocaine Cream [Emla 1 applic TOPICAL DIRECTED PRN 02/17/21 04/09/21 History Cream 2.5%/2.5%] Omeprazole [PriLOSEC] 40 mg PO HS #0 02/18/21 04/09/21 Rx Allergies Allergy/AdvReac Type Severity Reaction Status Date / Time Iodinated Contrast Media AdvReac CAN'T Verified 04/09/21 16:52 TAKE, RENAL DISEASE Iodine and Iodide Containing AdvReac CAN'T Verified 04/09/21 16:52 Produc TAKE, RENAL DISEASE Physical Exam Vitals: Vital Signs Temp Pulse Pulse Pulse Resp BP BP 04/10/21 08:40 04/10/21 08:00 98 F 66 18 147/65 04/10/21 04:00 86 16 04/10/21 01:03 60 18 04/09/21 23:49 97.8 F 60 18 04/09/21 20:03 96.9 F L 78 16 145/60 04/09/21 16:24 92 04/09/21 16:05 97.8 F 92 16 144/62 BP Pulse Ox 08/23/21 08:40 95 04/10/21 08:00 98 04/10/21 04:00 152/56 100 04/10/21 01:03 04/09/21 23:49 175/64 94 L 04/09/21 20:03 98 04/09/21 16:24 04/09/21 16:05 92 L Intake and Output 04/09/21 04/10/21 04/10/21 22:59 06:59 14:59 Intake Total 72.644 100 Output Total 100 Balance 72.644 0 Intake: IV 100 Intake, IV Titration 72.644 Amount Heparin Sod,Pork in 0.45% 72.644 NaCl 25,000 unit In 0.45 % NaCl 1 250ml.bag @ 12 UNITS/KG/HR 9.906 mls/hr IV .Q24H [facility] Rx#: [id number] Output: Urine 100 Other: # Voids 1 Weight 82.554 kg 80.4 kg Results 04/10/21 02:37 04/09/21 16:21 Cardiac Enzymes 04/09/21 04/09/21 04/09/21 Range/Units 16:21 16:21 19:34 AST 16 L (17-59) U/L Troponin I 0.015 0.134 H* (0.000-0.034) ng/mL 04/09/21 Range/Units 22:42 AST (17-59) U/L Troponin I 0.306 H* (0.000-0.034) ng/mL Coagulation 04/09/21 04/10/21 04/10/21 Range/Units 16: 02:37 10:50 PT 9.6 9.7 (9.0-12.0) sec APTT 25.1 25.6 24.2 (22.0-30.0) sec Lipids 04/10/21 Range/Units 02:37 Triglycerides 89.0 (0.0-149.0) mg/dL Cholesterol 94 (0-200) mg/dL HDL Cholesterol 43.0 (40.0-60.0) mg/dL Cholesterol/HDL Ratio 2.19 CBC 04/09/21 04/10/21 Range/Units 16:21 02:37 WBC 8.4 12.1 H (3.8-10.6) k/uL RBC 2.91 L 2.92 L (4.30-5.90) m/uL Hgb 8.9 L 8.9 L (13.0-17.5) gm/dL Hct 28.7 L 28.4 L (39.0-53.0) % Plt Count 364 407 (150-450) k/uL Comprehensive Metabolic Panel 04/09/21 04/09/21 Range/Units 16:21 16:21 Sodium 129 L (137-145) mmol/L Potassium 4.1 4.0 (3.5-5.1) mmol/L Chloride 94 L (98-107) mmol/L Carbon Dioxide 26 (22-30) mmol/L BUN 27 H (9-20) mg/dL Creatinine 3.18 H (0.66-1.25) mg/dL Glucose 652 H* (74-99) mg/dL Calcium 8.3 L (8.4-10.2) mg/dL AST 16 L (17-59) U/L ALT 8 (4-49) U/L Alkaline Phosphatase 129 H (38-126) U/L Total Protein 5.7 L (6.3-8.2) g/dL Albumin 3.0 L (3.5-5.0) g/dL Current Medications Generic Name Dose Route Start Last Admin Trade Name Freq PRN Reason Stop Dose Admin Al Hydroxide/Mg Hydroxide 30 ml 04/10/21 12:58 Mag Hydrox/Al Hydrox/Simeth 30 Ml Cup PO Q4HR PRN Heartburn Alprazolam 0.25 mg 04/10/21 09:07 Alprazolam 0.25 Mg Tab PO Q6HR PRN Mild Anxiety Alprazolam 0.5 mg 04/10/21 09:07 Alprazolam 0.5 Mg Tab PO Q6HR PRN Moderate Anxiety Aspirin 81 mg 04/09/21 21:00 04/09/21 21:54 Aspirin 81 Mg PO 81 mg HS GREC[facility] Administration Atorvastatin Calcium 20 mg 04/09/21 21:00 04/09/21 21:54 Atorvastatin 20 Mg Tab PO 20 mg HS GRECIA Administration Atropine Sulfate 0.5 mg 04/10/21 12:58 Atropine Sulfate 0.1 Mg/Ml 10ml Syringe IV ONCE PRN Symptomatic Bradycardia Budesonide/Formoterol Fumarate 2 puff 04/09/21 20:00 04/10/21 08:36 Symbicort 160-4.5 Mcg Inhaler INHALATION 2 puff RT-BID GRECIA Administration Clopidogrel Bisulfate 75 mg 04/11/21 09:00 Clopidogrel 75 Mg Tab PO DAILY [facility] Cyanocobalamin 1,000 mcg 04/10/21 09:00 04/10/21 09:23 Cyanocobalamin 500 Mcg Tab PO 1,000 mcg DAILY GREC[facility] Administration Darbepoetin Joel 60 mcg 04/10/21 09:00 04/10/21 09:22 Darbepoetin Joel 60 Mcg/0.3 Ml Syringe IV 60 mcg Q7D [facility] Administration Duloxetine HCl 20 mg 04/10/21 09:00 04/10/21 09:24 Duloxetine Hcl 20 Mg Capsule.Dr PO 20 mg DAILY [facility] Administration Ergocalciferol 1,250 mcg 04/10/21 09:00 04/10/21 09:24 Ergocalciferol 1,250 Mcg (50,000 Iu) Capsule PO 1,250 mcg Q14D [facility] Administration Ferrous Sulfate 325 mg 04/09/21 22:00 04/10/21 09:24 Ferrous Sulfate 325 Mg Tab PO 325 mg TID GRECIA Administration Furosemide 40 mg 04/10/21 09:00 04/10/21 09:23 Furosemide 10 Mg/Ml 4 Ml Vial IV 40 mg BID GRECIA Administration Gabapentin 100 mg 04/09/21 22:00 04/10/21 09:23 Gabapentin 100 Mg Cap PO 100 mg TID GRECIA Administration Heparin Sodium (Porcine) 0 unit 04/09/21 21:29 Heparin Sodium 1,000 Un/Ml (10ml Vl) IV PER PROTOCOL PRN Low PTT Protocol Heparin Sodium/Sodium Chloride 250 mls @ 9.906 mls/hr 04/09/21 21:30 04/10/21 05:13 25,000 unit/ Sodium Chloride IV 15 units/kg/hr .Q24H [facility] 12.383 mls/hr Titration Protocol 12 UNITS/KG/HR Heparin Sodium (Porcine) 10, 1,001 mls @ 999 mls/hr 04/11/21 07:00 000 unit/ Sodium Chloride IRRIGATION 04/11/21 23:00 ONCE PRN INTRA-OP Heparin Sodium (Porcine) 2,500 250.5 mls @ 250 mls/hr 04/11/21 07:00 unit/ Sodium Chloride IRRIGATION 04/11/21 23:00 ONCE PRN INTRA-OP Sodium Chloride 1,000 ml/ IV 1,000 mls @ 80.4 mls/hr 04/10/21 09:30 04/10/21 09:30 Solution IV 04/10/21 21:56 80.4 mls/hr .[id number] ONE Administration 1 ML/KG/HR Sodium Chloride 1,000 mls @ 75 mls/hr 04/10/21 13:00 04/10/21 13:22 Saline 0.9% IV 04/10/21 18:01 75 mls/hr .[id number] [facility] Administration Insulin Aspart 0 unit 04/09/21 21:00 04/10/21 06:20 Insulin Aspart (Novolog) 100 Unit/Ml Vial SQ Not Given ACHS [facility] Protocol Isosorbide Mononitrate 60 mg 04/09/21 21:00 04/10/21 09:24 Isosorbide Mononitrate Er 60 Mg Tab.Er.24h PO 60 mg BID GRECIA Administration Lidocaine/Prilocaine 1 applic 04/09/21 18:25 Lidocaine-Prilocaine 2.5-2.5% Cream 5 Gm Tube TOPICAL DAILY PRN dialysis Protocol Loratadine 10 mg 04/10/21 09:00 04/10/21 09:23 Loratadine 10 Mg Tab PO 10 mg DAILY [facility] Administration Melatonin 5 mg 04/09/21 21:00 04/09/21 21:54 Melatonin 5 Mg Tablet PO 5 mg HS GRECIA Administration Metoprolol Tartrate 25 mg 04/10/21 09:00 04/10/21 09:24 Metoprolol Tartrate 25 Mg Tab PO 25 mg BID GRECIA Administration Miscellaneous Information 1 each 04/10/21 12:58 Rx Info: Iv Contrast Was Given 1 Each Misc MISCELLANE 04/12/21 12:58 DAILY PRN Per Protocol Multivit/Ca Carb/B Cmplx/FA/Prenat 1 each 04/10/21 09:00 04/10/21 09:23 Folic Acid-Vit B Complex-Vit C 1 Cap PO 1 each DAILY [facility] Administration Nitroglycerin 0.4 mg 04/10/21 09:07 Nitroglycerin Sl Tabs 0.4 Mg Tab SUBLINGUAL Q5M PRN Chest Pain Nitroglycerin 0.4 mg 08/23/21 12:58 Nitroglycerin Sl Tabs 0.4 Mg Tab SUBLINGUAL Q5M PRN Chest Pain Pantoprazole Sodium 40 mg 04/09/21 21:00 04/09/21 21:55 Pantoprazole 40 Mg Tablet PO 40 mg HS GRECIA Administration Ropinirole HCl 0.5 mg 04/09/21 22:00 04/10/21 09:23 Ropinirole Hcl 0.25 Mg Tab PO 0.5 mg TID GRECIA Administration Senna/Docusate Sodium 2 each 04/09/21 18:25 Sennosides-Docusate Sodium 1 Each Tab PO TID PRN Constipation Zolpidem Tartrate 5 mg 04/10/21 12:58 Zolpidem 5 Mg Tab PO HS PRN Insomnia Intake and Output 04/09/21 04/10/21 04/10/21 22:59 06:59 14:59 Intake Total 72.644 100 Output Total 100 Balance 72.644 0 Intake: IV 100 Intake, IV Titration 72.644 Amount Heparin Sod,Pork in 0.45% 72.644 NaCl 25,000 unit In 0.45 % NaCl 1 250ml.bag @ 12 UNITS/KG/HR 9.906 mls/hr IV .Q24H [facility] Rx#: [id number] Output: Urine 100 Other: # Voids 1 Weight 82.554 kg 80.4 kg 04/10/21 02:37 04/09/21 16:21
--- NOTE | 2021-04-10 14:14 | CC ---
CARDIAC CATHETERIZATION REPORT DATE OF SERVICE: April 10, 2021. PERFORMING PHYSICIAN: Bobby Stone MD. PROCEDURE PERFORMED: Successful stenting of the mid right coronary artery using 3.5 x 15 mm Xience drug- eluting stent which was dilated using a 4 mm balloon with an excellent angiographic results and reduction of stenosis from 70% to 0%. INDICATION: Acute [id number] myocardial infarction. COMPLICATION: None. LEVEL OF SEDATION: Moderate with sedation length of 22 minutes. PROCEDURE DESCRIPTION: Please refer to diagnostic heart catheterization was performed by Dr. Sims earlier today. Anticoagulation was initiated using heparin with continuous ACT monitoring throughout the procedure. Subsequently, I did then engage the RCA using JR4 guide. I did wire the RCA using a run-through wire. After that, I did balloon angioplasty using 3.0 x 15 x 12 mm balloon before I deployed 3.5 x 15 mm Xience drug-eluting stent where the stent was positioned under fluoroscopy guidance and deployed under its nominal pressure. The following angiogram showed that the stent did not seem to be well deployed and because of that I decided to post dilate. I postdilated the stent using 4 mm balloon. The final angiogram showed excellent angiographic results and the procedure was completed without any complication. POSTPROCEDURE MANAGEMENT: 1. Dual anti-platelet therapy. 2. Aggressive cholesterol control. 3. Risk factor modifications. 4. Follow up with the patient. MMODL / IJN: [id number] /
[2021-04-10 16:17] LABS: Ferritin 88.5 ng/mL (22.0-322.0)
[2021-04-10 16:38] LABS: % Iron Saturation 22.26 (15.00-50.00)
[2021-04-10 16:53] LABS: Glucose,Whole Blood 226 mg/dL (75-99)
[2021-04-10] MEDS ORDERED: ONDANSETRON 4 MG/2 ML VIAL IM STA (18:55)
[2021-04-10] MEDS ORDERED: ONDANSETRON 4 MG/2 ML VIAL IVP STA (19:13)
[2021-04-10 21:11] LABS: Glucose,Whole Blood 145 mg/dL (75-99)
[2021-04-10] MEDS: ATORVASTATIN 20 MG TAB PO SCH (21:24)
[2021-04-10] MEDS: ASPIRIN 81 MG PO SCH (21:24)
[2021-04-10] MEDS: MELATONIN 5 MG TABLET PO SCH (21:24)
--- NOTE | 2021-04-11 00:02 | P.HPIM ---
History of Present Illness H&P Date: 04/10/21 Chief Complaint: Chest PAin Patient is a 71-year-old male with a known history of ESRD on hemodialysis, Saturday and Saturday schedule, diabetes type 2, GERD, hypertension, hyperlipidemia, history of lower GI bleed, depressio/n/PTSD and currently everyday smoker and also history of right carotid stent placement presents to ER with a complaint of left-sided retrosternal chest pain started yesterday morning. Chest pain was radiating to his left arm and his jaw. Reviewed with nitroglycerin tablet sublingual. Chest pain was associated with shortness of breath. Nausea no episodes of vomiting. No diaphoresis. Denied any recent illnesses. No fever no chills. No cough or sputum production. Chest x-ray showed prominence of the lung interstitium with perihilar fullness and small right pleural effusion. Findings represent fluid overload. EKG showed normal sinus rhythm. Inferior infarct age undetermined. Laboratory data showed WBC 8.4 hemoglobin 8.9 and platelets 364 Sodium 129 potassium 4.0 chloride 94 BUN 27 creatinine 3.18 blood sugar is 652 Troponin 0 0.015, 0.134 and 0.306 LDL 33.2 Urinalysis showed 4+ glucose and negative for infection. Acetone negative. Review of Systems Constitutional: Patient denies any fever or chills . No generalized weakness or weight loss. Abdomen: Patient denied nausea vomiting and diarrhea and abdominal pain. Cardiovascular: Chest pain associate with shortness of breath and nausea. No palpitations no leg swelling.. Respiratory: patient denied any cough or sputum production. No shortness of breath Neurologic: Patient denied any numbness or tingling headache. Musculoskeletal: Patient denies any complaints of joint swelling or deformity. Skin: Negative Psychiatric: Negative Endocrine: No heat or cold intolerance. No recent weight gain. Genitourinary: No dysuria or hematuria. All other 14 point ROS negative except the above Past Medical History Past Medical History: Coronary Artery Disease (CAD), Chest Pain / Angina, COPD, Diabetes Mellitus, GERD/Reflux, GI Bleed, Hyperlipidemia, Hypertension, Pneumonia, Renal Disease, Vascular Disorder Additional Past Medical History / Comment(s): IDDM type II, lower GI bleed, benign colon polyps, spouse states micro bleeds in intestine are suspected, abdominal distention comes and goes which is nearly daily, partial SBO, chronic renal disease stage IV, iron anemia with iron transfusions (recent R upper chest mediport for infusions), PVD, stable lung nodules, chronic low back pain with bilateral sciatica, RLS, vertigo, insomnia, past agent orange exposure. Last Myocardial Infarction Date:: 03/2020 History of Any Multi-Drug Resistant Organisms: None Reported Past Surgical History: Cholecystectomy, Heart Catheterization Additional Past Surgical History / Comment(s): 03/25/20 R sublclavian mediport, R carotid stent done in [place], EGD/colonoscopyDecember 2016, endoscopic capsule, fx lt wrist -sx re-set, aortagram, bilateral leg revascularizations/stents Past Anesthesia/Blood Transfusion Reactions: No Reported Reaction Additional Past Anesthesia/Blood Transfusion Reaction / Comment(s): Pt has had blood transfusion without reaction. Date of Last Stent Placement:: 04/27/20 Past Psychological History: Depression, PTSD Additional Psychological History / Comment(s): Pt resides with his spouse and their 2 dogs. Pt uses a cane to ambulate. He has a mobility scooter which he uses prn. He does not drive, his spouse drives. Pt served in the [employer] for 2 tours in [place], [place]. Spouse states pt and herself are being trained to perform home dialysis. Smoking Status: Current every day smoker Past Alcohol Use History: None Reported Additional Past Alcohol Use History / Comment(s): Pt started smoking in 1965 and is a 1 ppd smoker. Past Drug Use History: None Reported Additional Drug Use History / Comment(s): Pt states he takes a couple puffs from a marijuana joint occasionally - Past Family History Father History Unknown: Yes Mother Family Medical History: Cancer Additional Family Medical History / Comment(s): Mother from metastatic cancer pelvic origin. Medications and Allergies Home Medications Medication Instructions Recorded Confirmed Type Ergocalciferol (Vitamin D2) 50,000 unit PO Q14D 07/18/17 04/09/21 History [Vitamin D2] Simvastatin [Zocor] 40 mg PO HS 07/18/17 04/09/21 History Aspirin EC [Ecotrin Low Dose] 81 mg PO HS 02/10/18 04/09/21 History Ferrous Sulfate [Iron (65 MG 325 mg PO TID 02/10/18 04/09/21 History Elemental)] Cyanocobalamin [Vitamin B-12] 1,000 mcg PO DAILY 09/23/18 04/09/21 History glipiZIDE [Glucotrol] 5 mg PO BID 05/22/19 04/09/21 History Isosorbide Mononitrate ER [Imdur] 60 mg PO BID #60 tab.er.24h 04/21/20 04/09/21 Rx DULoxetine HCL [Cymbalta] 20 mg PO DAILY 10/27/20 04/09/21 History Folic Acid-Vit B Complex-Vit C 1 cap PO DAILY 12/19/20 04/09/21 History [Nephrocaps] Melatonin 5 mg PO HS 12/19/20 04/09/21 History Sennosides-Docusate Sodium 2 tab PO TID PRN 12/31/20 04/09/21 History [Senokot-S] Darbepoetin Joel [Aranesp] 60 mcg IV Q7D 01/23/21 04/09/21 History Gabapentin [Neurontin] 100 mg PO TID 01/23/21 04/09/21 History Loratadine 10 mg PO DAILY 01/23/21 04/09/21 History Nitroglycerin Sl Tabs [Nitrostat] 0.4 mg SL Q5M PRN 01/23/21 04/09/21 History rOPINIRole HCL [Requip] 0.5 mg PO TID 01/23/21 04/09/21 History Budesonide-Formot 160-4.5 Mcg 2 puff INHALATION RT-BID #1 inhaler 02/01/21 04/09/21 Rx [Symbicort 160-4.5 Mcg Inhaler] Insulin Glargine [Lantus Vial] 20 unit SQ HS #0 02/02/21 04/09/21 Rx Furosemide [Lasix] 80 mg PO DAILY 02/17/21 04/09/21 History Lidocaine-Prilocaine Cream [Emla 1 applic TOPICAL DIRECTED PRN 02/17/21 04/09/21 History Cream 2.5%/2.5%] Omeprazole [PriLOSEC] 40 mg PO HS #0 02/18/21 04/09/21 Rx Allergies Allergy/AdvReac Type Severity Reaction Status Date / Time Iodinated Contrast Media AdvReac CAN'T Verified 04/09/21 16:52 TAKE, RENAL DISEASE Iodine and Iodide Containing AdvReac CAN'T Verified 04/09/21 16:52 Produc TAKE, RENAL DISEASE Physical Exam Vitals: Vital Signs Temp Pulse Pulse Pulse Resp BP BP 04/10/21 08:40 04/10/21 08:00 98 F 66 18 147/65 04/10/21 04:00 86 16 04/10/21 01:03 60 18 04/09/21 23:49 97.8 F 60 18 04/09/21 20:03 96.9 F L 78 16 145/60 04/09/21 16:24 92 04/09/21 16:05 97.8 F 92 16 144/62 BP Pulse Ox 04/10/21 08:40 95 04/10/21 08:00 98 04/10/21 04:00 152/56 100 04/10/21 01:03 04/09/21 23:49 175/64 94 L 04/09/21 20:03 98 04/09/21 16:24 04/09/21 16:05 92 L Intake and Output 04/09/21 04/10/21 04/10/21 22:59 06:59 14:59 Intake Total 72.644 Output Total 100 Balance 72.644 -100 Intake: Intake, IV Titration 72.644 Amount Heparin Sod,Pork in 0.45% 72.644 NaCl 25,000 unit In 0.45 % NaCl 1 250ml.bag @ 12 UNITS/KG/HR 9.906 mls/hr IV .Q24H [facility] Rx#: [id number] Output: Urine 100 Other: # Voids 1 Weight 82.554 kg 80.4 kg PHYSICAL EXAMINATION: Patient is lying in the bed comfortably, no acute distress, awake alert and oriented.. HEENT: Normocephalic. Neck is supple. Pupils reactive. Nostrils clear. Oral cavity is moist. Ears reveal no drainage. Neck reveals no JVD, carotid bruits, or thyromegaly. CHEST EXAMINATION: Trachea is central. Symmetrical expansion. Bibasilar diminished sounds. No wheezing.. CARDIAC: Normal S1, S2 with no gallops. No murmurs ABDOMEN: Soft. Bowel sounds normal. No organomegaly. No abdominal bruits. Extremities: trace edema. No clubbing or cyanosis Neurologically awake, alert, oriented x3 with well-coordinated movements. No fo lenin deficits noted Skin: No rash or skin lesions. Psychiatric: Coperative. Nonsuicidal Musculoskeletal: No joint swelling or deformity. Normal range of motion. Results CBC & Chem 7: 04/10/21 02:37 04/09/21 16:21 Labs: Abnormal Lab Results - Last 24 Hours (Table) 04/09/21 04/09/21 04/09/21 Range/Units 16:16 16:21 16:21 WBC (3.8-10.6) k/uL RBC 2.91 L (4.30-5.90) m/uL Hgb 8.9 L (13.0-17.5) gm/dL Hct 28.7 L (39.0-53.0) % RDW 16.3 H (11.5-15.5) % Neutrophils # (1.3-7.7) k/uL Lymphocytes # 0.6 L (1.0-4.8) k/uL Sodium 129 L (137-145) mmol/L Chloride 94 L (98-107) mmol/L BUN 27 H (9-20) mg/dL Creatinine 3.18 H (0.66-1.25) mg/dL Glucose 652 H* (74-99) mg/dL POC Glucose (mg/dL) >600 H (75-99) mg/dL Calcium 8.3 L (8.4-10.2) mg/dL Total Bilirubin <0.1 L (0.2-1.3) mg/dL AST 16 L (17-59) U/L Alkaline Phosphatase 129 H (38-126) U/L Troponin I (0.000-0.034) ng/mL Total Protein 5.7 L (6.3-8.2) g/dL Albumin 3.0 L (3.5-5.0) g/dL Urine Protein (Negative) Urine Glucose (UA) (Negative) Urine Bacteria (None) /hpf 04/09/21 04/09/21 04/09/21 Range/Units 19:34 19:45 19:55 WBC (3.8-10.6) k/uL RBC (4.30-5.90) m/uL Hgb (13.0-17.5) gm/dL Hct (39.0-53.0) % RDW (11.5-15.5) % Neutrophils # (1.3-7.7) k/uL Lymphocytes # (1.0-4.8) k/uL Sodium (137-145) mmol/L Chloride (98-107) mmol/L BUN (9-20) mg/dL Creatinine (0.66-1.25) mg/dL Glucose (74-99) mg/dL POC Glucose (mg/dL) 431 H (75-99) mg/dL Calcium (8.4-10.2) mg/dL Total Bilirubin (0.2-1.3) mg/dL AST (17-59) U/L Alkaline Phosphatase (38-126) U/L Troponin I 0.134 H* (0.000-0.034) ng/mL Total Protein (6.3-8.2) g/dL Albumin (3.5-5.0) g/dL Urine Protein 2+ H (Negative) Urine Glucose (UA) 4+ H (Negative) Urine Bacteria Rare H (None) /hpf 04/09/21 04/09/21 04/10/21 Range/Units 22:38 22:42 02:37 WBC 12.1 H (3.8-10.6) k/uL RBC 2.92 L (4.30-5.90) m/uL Hgb 8.9 L (13.0-17.5) gm/dL Hct 28.4 L (39.0-53.0) % RDW 16.7 H (11.5-15.5) % Neutrophils # 9.6 H (1.3-7.7) k/uL Lymphocytes # (1.0-4.8) k/uL Sodium (137-145) mmol/L Chloride (98-107) mmol/L BUN (9-20) mg/dL Creatinine (0.66-1.25) mg/dL Glucose (74-99) mg/dL POC Glucose (mg/dL) 239 H (75-99) mg/dL Calcium (8.4-10.2) mg/dL Total Bilirubin (0.2-1.3) mg/dL AST (17-59) U/L Alkaline Phosphatase (38-126) U/L Troponin I 0.306 H* (0.000-0.034) ng/mL Total Protein (6.3-8.2) g/dL Albumin (3.5-5.0) g/dL Urine Protein (Negative) Urine Glucose (UA) (Negative) Urine Bacteria (None) /hpf 04/10/21 04/10/21 Range/Units 05:55 10:19 WBC (3.8-10.6) k/uL RBC (4.30-5.90) m/uL Hgb (13.0-17.5) gm/dL Hct (39.0-53.0) % RDW (11.5-15.5) % Neutrophils # (1.3-7.7) k/uL Lymphocytes # (1.0-4.8) k/uL Sodium (137-145) mmol/L Chloride (98-107) mmol/L BUN (9-20) mg/dL Creatinine (0.66-1.25) mg/dL Glucose (74-99) mg/dL POC Glucose (mg/dL) 102 H 138 H (75-99) mg/dL Calcium (8.4-10.2) mg/dL Total Bilirubin (0.2-1.3) mg/dL AST (17-59) U/L Alkaline Phosphatase (38-126) U/L Troponin I (0.000-0.034) ng/mL Total Protein (6.3-8.2) g/dL Albumin (3.5-5.0) g/dL Urine Protein (Negative) Urine Glucose (UA) (Negative) Urine Bacteria (None) /hpf Thrombosis Risk Factor Assmnt - DVT/VTE Prophylaxis DVT/VTE Prophylaxis: Pharmacologic Prophylaxis ordered - Choose All That Apply Any of the Below Risk Factors Present?: No Assessment and Plan Assessment: Acute non-ST elevated PR ESRD on hemodialysis Saturday Hyperglycemia with uncontrolled diabetes type 2 insulin-dependent Coronary artery disease with history of stent placement Acute on chronic CHF with diastolic function and fluid overload Hypertension Hyperlipidemia GERD COPD Currently everyday smoker Depression/PTSD History of right carotid stent placement Bilateral lower extremity peripheral vascular disease DVT prophylaxis Plan: Patient will be continued on telemetry monitoring. Started on IV heparin and follow-up troponin level. Cardiology is planning for cardiac catheterization today. 2D echocardiogram was ordered. With aspirin, statins and beta-blockers. Patient will be started back on Levemir 20 units at bedtime along with sliding scale for better blood sugar control. Nephrology is on board and hemodialysis as per schedule. Patient is being continued on Lasix 40 mg IV twice daily Continue with home medications and follow-up closely. Prognosis guarded with multiple medical problems and comorbid conditions. Time with Patient: Greater than 30
[2021-04-11] MEDS: INSULIN DETEMIR (LEVEMIR) 100 UNIT/ML SYR SQ SCH ×2 (00:42→20:34)
[2021-04-11 06:05] LABS: Glucose,Whole Blood 226 mg/dL (75-99)
[2021-04-11] MEDS: INSULIN ASPART (NovoLOG) 100 UNIT/ML VIAL SQ SCH ×4 (06:36→20:33)
[2021-04-11] MEDS ORDERED: HEPARIN SODIUM,PORCINE 2,500 UNIT in SODIUM CHLORIDE 0.9% 250 ML IRRIGATION PRN (07:00)
[2021-04-11] MEDS ORDERED: HEPARIN SODIUM,PORCINE 10,000 UNIT in SODIUM CHLORIDE 0.9% 1,000 ML IRRIGATION PRN (07:00)
[2021-04-11] MEDS: SYMBICORT 160-4.5 MCG INHALER INHALATION SCH ×2 (07:58→20:25)
[2021-04-11] MEDS: HEPARIN SOD,PORK IN 0.45% NACL 25,000 UNIT in 0.45% NACL 1 250ML.BAG IV SCH ×2 (08:19→21:00)
[2021-04-11] MEDS: CYANOCOBALAMIN 500 MCG TAB PO SCH (08:24)
[2021-04-11] MEDS: METOPROLOL TARTRATE 25 MG TAB PO SCH ×2 (08:24→20:34)
[2021-04-11] MEDS: FUROSEMIDE 10 MG/ML 4 ML VIAL IV SCH ×2 (08:25→20:33)
[2021-04-11] MEDS: LORATADINE 10 MG TAB PO SCH (08:25)
[2021-04-11] MEDS: CLOPIDOGREL 75 MG TAB PO SCH (08:25)
[2021-04-11] MEDS: FERROUS SULFATE 325 MG TAB PO SCH ×3 (08:25→21:13)
[2021-04-11] MEDS: ISOSORBIDE MONONITRATE ER 60 MG TAB.ER.24H PO SCH ×2 (08:25→20:34)
[2021-04-11] MEDS: GABAPENTIN 100 MG CAP PO SCH ×3 (08:25→21:13)
[2021-04-11] MEDS: FOLIC ACID-VIT B COMPLEX-VIT C 1 CAP PO SCH (08:26)
[2021-04-11] MEDS: DULoxetine HCL 20 MG CAPSULE.DR PO SCH (08:26)
[2021-04-11 09:17] LABS: Anisocytosis Slight; Basophils % (A) 0 %; Eosinophils # (A) 0.1 k/uL (0-0.7); Eosinophils % (A) 1 %; HCT 31.7 % (39.0-53.0); HGB 9.7 gm/dL (13.0-17.5); Hypochromasia Marked; Lymphocytes # (A) 0.6 k/uL (1.0-4.8); Lymphocytes % (A) 6 %; MCH 29.9 pg (25.0-35.0); MCHC 30.6 g/dL (31.0-37.0); MCV 97.7 fL (80.0-100.0); Macrocytosis Slight; Mean Platelet Volume 8.9; Monocytes # (A) 0.4 k/uL (0-1.0); Monocytes % (A) 4 %; Neutrophils # (A) 8.7 k/uL (1.3-7.7); Neutrophils % (A) 87 %; Platelet Count 354 k/uL (150-450); Poikilocytosis Slight; RBC 3.25 m/uL (4.30-5.90); RDW 16.3 % (11.5-15.5)
--- NOTE | 2021-04-11 09:26 | P.PN ---
Subjective Patient is seen in follow-up for end-stage renal disease. He is maintained on hemodialysis on Saturday schedule. Tolerated dialysis yesterday without any problems. Underwent right coronary artery stenting yesterday. No chest pain or shortness of breath at this time. Vital signs are stable. General: The patient appeared well nourished and normally developed. HEENT: Head exam is unremarkable. Neck is without jugular venous distension. LUNGS: Breath sounds decreased. HEART: Rate and Rhythm are regular. ABDOMEN: Soft, no distention. EXTREMITITES: No edema. Objective - Vital Signs Vital signs: Vital Signs Temp 98.4 F 04/11/21 07:57 Pulse 62 04/11/21 07:57 Resp 20 04/11/21 07:57 BP 165/63 04/11/21 07:57 Pulse Ox 97 04/11/21 07:57 Intake & Output 04/10/21 04/11/21 04/11/21 18:59 06:59 18:59 Intake Total 580 Output Total 100 3375 Balance 480 -3375 Weight 76.7 kg Intake: IV 100 Oral 480 Output: Urine 100 375 Hemodialysis 3000 Other: Voiding Method Urinal Urinal - Labs CBC & Chem 7: 04/11/21 08:45 04/09/21 16:21 Labs: Abnormal Lab Results - Last 24 Hours (Table) 04/10/21 04/10/21 04/10/21 Range/Units 10:19 10:50 16:51 RBC (4.30-5.90) m/uL Hgb (13.0-17.5) gm/dL Hct (39.0-53.0) % MCHC (31.0-37.0) g/dL RDW (11.5-15.5) % Neutrophils # (1.3-7.7) k/uL Lymphocytes # (1.0-4.8) k/uL POC Glucose (mg/dL) 138 H 226 H (75-99) mg/dL Iron 59 L (65-175) ug/dL 04/10/21 04/11/21 04/11/21 Range/Units 21:09 06:04 08:45 RBC 3.25 L (4.30-5.90) m/uL Hgb 9.7 L (13.0-17.5) gm/dL Hct 31.7 L (39.0-53.0) % MCHC 30.6 L (31.0-37.0) g/dL RDW 16.3 H (11.5-15.5) % Neutrophils # 8.7 H (1.3-7.7) k/uL Lymphocytes # 0.6 L (1.0-4.8) k/uL POC Glucose (mg/dL) 145 H 226 H (75-99) mg/dL Iron (65-175) ug/dL Assessment and Plan Plan: Assessment: 1. End-stage renal disease maintained on hemodialysis on Saturday schedule. 2. Chest pain. Concern for acute coronary syndrome. Cardiology following. On IV heparin. 3. History of coronary artery disease status post stent placement. Underwent cardiac catheterization April 10 with stenting of the RCA. 4. Anemia of chronic kidney disease. Mild iron deficiency noted. Maintained on Aranesp. 5. Volume overload. Improved post ultrafiltration. 6. Diabetes mellitus. 7. Hypertonic hyponatremia secondary to hyperglycemia. Plan: Hemodialysis tomorrow. IV iron today.
[2021-04-11 09:27] LABS: Calcium 8.5 mg/dL (8.4-10.2); Potassium 4.1 mmol/L (3.5-5.1)
[2021-04-11] MEDS ORDERED: SODIUM FERRIC GLUCONAT-SUCROSE 125 MG in SODIUM CHLORIDE 0.9% 100 ML IVPB ONE (10:00)
--- NOTE | 2021-04-11 11:34 | ECHOF ---
Referral Reason:LV function MEASUREMENTS -------- HEIGHT: 170.2 cm WEIGHT: 76.7 kg BP: IVSd: 1.2 cm (0.6 - 1.1) LVIDd: 4.3 cm (3.9 - 5.3) LVPWd: 1.6 cm (0.6 - 1.1) IVSs: 1.9 cm LVIDs: 3.3 cm LVPWs: 1.8 cm LAESV Index (A-L): 35.30 ml/m Ao Diam: 4.0 cm (2.0 - 3.7) AV Cusp: 1.7 cm (1.5 - 2.6) LA Diam: 3.2 cm (2.7 - 3.8) MV EXCURSION: 18.048 mm (> 18.000) MV EF SLOPE: 32 mm/s (70 - 150) EPSS: 2.5 cm MV E Ray: 1.39 m/s MV DecT: 334 ms MV A Ray: 1.17 m/s MV E/A Ratio: 1.19 AV maxP.72 mmHg AV meanP.88 mmHg AR PHT: 457 ms RAP: 5.00 mmHg RVSP: 9.64 mmHg FINDINGS -------- This was a technically good study. The left ventricular size is normal. There is mild concentric left ventricular hypertrophy. Overa ll left ventricular systolic function is mildly impaired with, an EF between 45 - 50 %. Increased L AP Grade 3 Diastolic Dysfunction. Basal inferior LV wall motion is hypokinetic. Mid inferior LV wall motion is hypokinetic. The right ventricle is normal in size. LA is moderately dilated 34-39 ml/m2 The right atrial size is normal. Aortic valve is trileaflet and is mildly thickened. There is [id number] aortic regurgitation. There is mild aortic stenosis present. Peak/mean gradient across the Aortic Valve is 18.72mmHg / 9.88mmHg. The mitral valve leaflets are moderately thickened. Mild mitral annular calcification present. Mi ld mitral regurgitation is present. The peak and mean MV gradients are 9.39mmHg 3.57mmHg as measur ed by doppler. Pieb-kr-awfhqwos mitral stenosis. Cannot rule out vegetation. The tricuspid valve appears structurally normal. Mild tricuspid regurgitation present. Right vent ricular systolic pressure is normal at < 35 mmHg. There is no pulmonic regurgitation present. The aortic root size is normal. Normal inferior vena cava with normal inspiratory collapse consistent with estimated right atrial pre ssure of 5 mmHg. There is no pericardial effusion. CONCLUSIONS -------- 1. The left ventricular size is normal. 2. There is mild concentric left ventricular hypertrophy. 3. Overall left ventricular systolic function is mildly impaired with, an EF between 45 - 50 %. 4. Increased LAP Grade 3 Diastolic Dysfunction. 5. Basal inferior LV wall motion is hypokinetic. 6. Mid inferior LV wall motion is hypokinetic. 7. LA is moderately dilated 34-39 ml/m2 8. Aortic valve is trileaflet and is mildly thickened. 9. There is dwpz-rl-vgekkirs aortic regurgitation. 10. There is mild aortic stenosis present. 11. Peak/mean gradient across the Aortic Valve is 18.72mmHg / 9.88mmHg. 12. The mitral valve leaflets are moderately thickened. 13. Mild mitral annular calcification present. 14. Mild mitral regurgitation is present. 15. The peak and mean MV gradients are 9.39mmHg 3.57mmHg as measured by doppler. 16. Xrxe-zr-cakswdtt mitral stenosis. 17. Cannot rule out vegetation. 18. Mild tricuspid regurgitation present. 19. There is no pericardial effusion. LYE MACHINE OPERATOR: Crystal Martínez RDCS
[2021-04-11 11:36] LABS: Glucose,Whole Blood 263 mg/dL (75-99)
[2021-04-11 11:40] VITALS: BMI 26.4
[2021-04-11] MEDS ORDERED: amLODIPine 5 MG TAB PO SCH (12:00)
[2021-04-11] MEDS: amLODIPine 10 MG TAB PO SCH (12:09)
--- NOTE | 2021-04-11 14:38 | P.PN ---
Subjective Progress Note Date: 04/11/21 HISTORY OF PRESENT ILLNESS: This is a 71-year-old male with a past medical history significant for chronic kidney disease on hemodialysis, hypertension, hyperlipidemia, and coronary artery disease with recent PCI in April 2020 of ostial PDA branch of the RCA. Patient follows in the office with Dr. Sims. We have been asked to see the patient in consultation for elevated troponins. Patient examined at the bedside. Patient states his stream morning he woke up with chest pain. He states it felt like a heavy pressure sensation in the middle of his chest. He states the pain went into his left arm and shoulder and also into his jaw. He reports feeling short of breath at that time. He states he took sublingual nitro which helped the pain for a little while and then the pain returned so he decided to come to the emergency room for further evaluation. The patient was found to have normal troponins. He was started on IV heparin. At the time of examination, the patient denies chest pain or pressure. EKG reveals sinus mechanism with no signs of acute ischemia Chest xray prominence of the lung interstitium with perihilar fullness and small right pleural effusion. Findings are favored to represent fluid overload. Patchy bibasilar airspace opacities which may be related to fluid overload however superimposed pneumonia was not excluded. Laboratory data: WBC 12.1. Hemoglobin 8.9. Platelet count 407. Sodium 129. Potassium 4.1. BUN 27. Creatinine 3.18. Glucose 652. Troponin 0.015. 0.134. 0.306. ProBNP 7500. Current home cardiac medications include simvastatin 40 mg daily, Imdur 60 mg twice a day, Lasix 80 mg daily, and aspirin 81 mg daily Most recent echocardiogram obtained in December 2020 revealed ejection fraction 50- 55%, mild aortic regurgitation, mild aortic stenosis, mild mitral regurgitation, and mild to moderate mitral stenosis Cardiac catheterization history: April 2020 with PCI of the ostial PDA branch of RCA 04/11/2021 Patient examined this morning at the bedside. He underwent cardiac catheterization yesterday with PCI to the RCA. Patient denies chest pain or pressure. He denies shortness of breath. Patient underwent hemodialysis yesterday after his heart catheterization and tolerated well. Patient's blood pressure is elevated and has been running with a systolic between 150 and 170. Echocardiogram completed revealed ejection fraction 45-50%. Basal inferior LV wall hypokinesis. Mid inferior LV wall hypokinesis. Mild to moderate aortic regurgitation. Mild aortic stenosis. Mild mitral regurgitation. Gwyw-ax-gvzdhhsk mitral stenosis. Cannot rule out vegetation. PHYSICAL EXAM: VITAL SIGNS: Reviewed. GENERAL: Well-developed in no acute distress. HEENT: Head is normocephalic. Pupils are equal, round. Sclerae anicteric. Mucous membranes of the mouth are moist. Neck supple. No JVD or thyromegaly LUNGS: Respirations even and unlabored. Lungs essentially clear to auscultation bilaterally. HEART: Regular rate and rhythm. S1 and S2 heard. EXTREMITIES: Normal range of motion. No clubbing or cyanosis. Peripheral pulses intact. No lower extremity edema. Right radial cath site with TR band present ASSESSMENT: Non-ST elevated myocardial infarction Coronary artery disease with previous PCI, most recent in April 2020 Chronic kidney disease on hemodialysis Acute of chronic diastolic congestive heart failure Hypertension Hyperlipidemia Peripheral vascular disease with previous intervention to lower extremities PLAN: Continue current cardiac medications Add Norvasc 10 mg daily for optimal blood pressure control Clinically, patient does not have any signs or symptoms of endocarditis. If patient develops fever we'll obtain blood cultures and/or possible JENNIFER. Stable from a cardiac perspective Further recommendations pending patient course Nurse practitioner note has been reviewed by physician. Signing provider agrees with the documented findings, assessment, and plan of care. Objective - Vital Signs Vital signs: Vital Signs Temp 98.5 F 04/11/21 11:23 Pulse 68 04/11/21 11:23 Resp 20 04/11/21 11:23 BP 178/69 04/11/21 11:23 Pulse Ox 98 04/11/21 11:23 Intake & Output 04/10/21 04/11/21 04/11/21 18:59 06:59 18:59 Intake Total 580 580 Output Total 100 3375 100 Balance 480 -3375 480 Weight 76.7 kg 76.7 kg Intake: IV 100 Intake, IV Titration 100 Amount Sodium Ferric Gluconat- 100 Sucrose 125 mg In Sodium Chloride 0.9% 100 ml @ 100 mls/hr IVPB ONCE ONE Rx#:[id number] Oral 480 480 Output: Urine 100 375 100 Hemodialysis 3000 Other: Voiding Method Urinal Urinal - Labs CBC & Chem 7: 04/11/21 08:45 04/11/21 08:45 Labs: Abnormal Lab Results - Last 24 Hours (Table) 08/23/21 08/23/21 08/23/21 Range/Units 10:50 16:51 21:09 RBC (4.30-5.90) m/uL Hgb (13.0-17.5) gm/dL Hct (39.0-53.0) % MCHC (31.0-37.0) g/dL RDW (11.5-15.5) % Neutrophils # (1.3-7.7) k/uL Lymphocytes # (1.0-4.8) k/uL Sodium (137-145) mmol/L BUN (9-20) mg/dL Creatinine (0.66-1.25) mg/dL Glucose (74-99) mg/dL POC Glucose (mg/dL) 226 H 145 H (75-99) mg/dL Iron 59 L (65-175) ug/dL 04/11/21 04/11/21 04/11/21 Range/Units 06:04 08:45 08:45 RBC 3.25 L (4.30-5.90) m/uL Hgb 9.7 L (13.0-17.5) gm/dL Hct 31.7 L (39.0-53.0) % MCHC 30.6 L (31.0-37.0) g/dL RDW 16.3 H (11.5-15.5) % Neutrophils # 8.7 H (1.3-7.7) k/uL Lymphocytes # 0.6 L (1.0-4.8) k/uL Sodium 136 L (137-145) mmol/L BUN 21 H (9-20) mg/dL Creatinine 2.38 H (0.66-1.25) mg/dL Glucose 246 H (74-99) mg/dL POC Glucose (mg/dL) 226 H (75-99) mg/dL Iron (65-175) ug/dL 04/11/21 Range/Units 11:35 RBC (4.30-5.90) m/uL Hgb (13.0-17.5) gm/dL Hct (39.0-53.0) % MCHC (31.0-37.0) g/dL RDW (11.5-15.5) % Neutrophils # (1.3-7.7) k/uL Lymphocytes # (1.0-4.8) k/uL Sodium (137-145) mmol/L BUN (9-20) mg/dL Creatinine (0.66-1.25) mg/dL Glucose (74-99) mg/dL POC Glucose (mg/dL) 263 H (75-99) mg/dL Iron (65-175) ug/dL
[2021-04-11 15:51] LABS: Glucose,Whole Blood 272 mg/dL (75-99)
[2021-04-11 19:18] LABS: Hemoglobin A1C 9.1 % (4.0-6.0)
[2021-04-11 20:15] LABS: Glucose,Whole Blood 314 mg/dL (75-99)
[2021-04-11] MEDS: ATORVASTATIN 20 MG TAB PO SCH (20:33)
[2021-04-11] MEDS: ASPIRIN 81 MG PO SCH (20:33)
[2021-04-11] MEDS: MELATONIN 5 MG TABLET PO SCH (20:34)
[2021-04-12 06:12] LABS: Glucose,Whole Blood 159 mg/dL (75-99)
[2021-04-12] MEDS: INSULIN ASPART (NovoLOG) 100 UNIT/ML VIAL SQ SCH ×2 (06:34→12:08)
[2021-04-12] MEDS: CYANOCOBALAMIN 500 MCG TAB PO SCH (08:18)
[2021-04-12] MEDS: GABAPENTIN 100 MG CAP PO SCH (08:18)
[2021-04-12] MEDS: CLOPIDOGREL 75 MG TAB PO SCH (08:18)
[2021-04-12] MEDS: amLODIPine 10 MG TAB PO SCH (08:18)
[2021-04-12] MEDS: LORATADINE 10 MG TAB PO SCH (08:18)
[2021-04-12] MEDS: FUROSEMIDE 10 MG/ML 4 ML VIAL IV SCH (08:18)
[2021-04-12] MEDS: FERROUS SULFATE 325 MG TAB PO SCH (08:18)
[2021-04-12] MEDS: ISOSORBIDE MONONITRATE ER 60 MG TAB.ER.24H PO SCH (08:18)
[2021-04-12] MEDS: DULoxetine HCL 20 MG CAPSULE.DR PO SCH (08:18)
[2021-04-12] MEDS: METOPROLOL TARTRATE 25 MG TAB PO SCH (08:18)
[2021-04-12] MEDS: FOLIC ACID-VIT B COMPLEX-VIT C 1 CAP PO SCH (08:18)
[2021-04-12] MEDS: SYMBICORT 160-4.5 MCG INHALER INHALATION SCH (08:36)
[2021-04-12] MEDS ORDERED: FUROSEMIDE 80 MG TAB PO SCH (09:00)
--- NOTE | 2021-04-12 09:14 | P.PN ---
Subjective Patient is seen in follow-up for end-stage renal disease. He is maintained on hemodialysis on Saturday schedule. Underwent right coronary artery stenting this admission. No chest pain or shortness of breath at this time. Vital signs are stable. General: The patient appeared well nourished and normally developed. HEENT: Head exam is unremarkable. Neck is without jugular venous distension. LUNGS: Breath sounds decreased. HEART: Rate and Rhythm are regular. ABDOMEN: Soft, no distention. EXTREMITITES: No edema. Objective - Vital Signs Vital signs: Vital Signs Temp 97.9 F 04/12/21 03:24 Pulse 64 04/12/21 03:24 Resp 16 04/12/21 03:24 BP 159/60 04/12/21 03:24 Pulse Ox 97 04/12/21 03:24 Intake & Output 04/11/21 04/12/21 04/12/21 18:59 06:59 18:59 Intake Total 820 240 Output Total 100 Balance 720 240 Weight 76.7 kg 77.1 kg Intake: Intake, IV Titration 100 Amount Sodium Ferric Gluconat- 100 Sucrose 125 mg In Sodium Chloride 0.9% 100 ml @ 100 mls/hr IVPB ONCE ONE Rx#:[id number] Oral 720 240 Output: Urine 100 Other: Voiding Method Urinal Urinal # Voids 2 - Labs CBC & Chem 7: 04/11/21 08:45 04/11/21 08:45 Labs: Abnormal Lab Results - Last 24 Hours (Table) 04/11/21 04/11/21 04/11/21 Range/Units 08:45 08:45 08:45 RBC 3.25 L (4.30-5.90) m/uL Hgb 9.7 L (13.0-17.5) gm/dL Hct 31.7 L (39.0-53.0) % MCHC 30.6 L (31.0-37.0) g/dL RDW 16.3 H (11.5-15.5) % Neutrophils # 8.7 H (1.3-7.7) k/uL Lymphocytes # 0.6 L (1.0-4.8) k/uL Sodium 136 L (137-145) mmol/L BUN 21 H (9-20) mg/dL Creatinine 2.38 H (0.66-1.25) mg/dL Glucose 246 H (74-99) mg/dL POC Glucose (mg/dL) (75-99) mg/dL Hemoglobin A1c 9.1 H (4.0-6.0) % 04/11/21 04/11/21 04/11/21 Range/Units 11:35 15:49 20:14 RBC (4.30-5.90) m/uL Hgb (13.0-17.5) gm/dL Hct (39.0-53.0) % MCHC (31.0-37.0) g/dL RDW (11.5-15.5) % Neutrophils # (1.3-7.7) k/uL Lymphocytes # (1.0-4.8) k/uL Sodium (137-145) mmol/L BUN (9-20) mg/dL Creatinine (0.66-1.25) mg/dL Glucose (74-99) mg/dL POC Glucose (mg/dL) 263 H 272 H 314 H (75-99) mg/dL Hemoglobin A1c (4.0-6.0) % 04/12/21 Range/Units 06:11 RBC (4.30-5.90) m/uL Hgb (13.0-17.5) gm/dL Hct (39.0-53.0) % MCHC (31.0-37.0) g/dL RDW (11.5-15.5) % Neutrophils # (1.3-7.7) k/uL Lymphocytes # (1.0-4.8) k/uL Sodium (137-145) mmol/L BUN (9-20) mg/dL Creatinine (0.66-1.25) mg/dL Glucose (74-99) mg/dL POC Glucose (mg/dL) 159 H (75-99) mg/dL Hemoglobin A1c (4.0-6.0) % Assessment and Plan Plan: Assessment: 1. End-stage renal disease maintained on hemodialysis on Saturday schedule. 2. NSTEMI. 3. History of coronary artery disease status post stent placement. Underwent cardiac catheterization April 10 with stenting of the RCA. 4. Anemia of chronic kidney disease. Mild iron deficiency noted status post IV iron - . Maintained on Aranesp. 5. Volume overload. Improved post ultrafiltration. 6. Diabetes mellitus. 7. Hypertonic hyponatremia secondary to hyperglycemia. Better. Plan: Hemodialysis today. Possible discharge after dialysis.
[2021-04-12 11:59] LABS: Glucose,Whole Blood 273 mg/dL (75-99)
[2021-04-12 12:50] LABS: Anisocytosis Slight; HCT 28.1 % (39.0-53.0); HGB 9.2 gm/dL (13.0-17.5); Hypochromasia Marked; MCH 31.3 pg (25.0-35.0); MCHC 32.6 g/dL (31.0-37.0); MCV 95.9 fL (80.0-100.0); Mean Platelet Volume 8.8; Platelet Count 342 k/uL (150-450); RBC 2.94 m/uL (4.30-5.90); RDW 16.7 % (11.5-15.5); WBC 9.2 k/uL (3.8-10.6)
[2021-04-12 13:14] LABS: Calcium 8.7 mg/dL (8.4-10.2); Potassium 3.5 mmol/L (3.5-5.1)
--- NOTE | 2021-04-12 13:46 | P.PN ---
Subjective Progress Note Date: 04/12/21 HISTORY OF PRESENT ILLNESS: This is a 71-year-old male with a past medical history significant for chronic kidney disease on hemodialysis, hypertension, hyperlipidemia, and coronary artery disease with recent PCI in April 2020 of ostial PDA branch of the RCA. Patient follows in the office with Dr. Sims. We have been asked to see the patient in consultation for elevated troponins. Patient examined at the bedside. Patient states his stream morning he woke up with chest pain. He states it felt like a heavy pressure sensation in the middle of his chest. He states the pain went into his left arm and shoulder and also into his jaw. He reports feeling short of breath at that time. He states he took sublingual nitro which helped the pain for a little while and then the pain returned so he decided to come to the emergency room for further evaluation. The patient was found to have normal troponins. He was started on IV heparin. At the time of examination, the patient denies chest pain or pressure. EKG reveals sinus mechanism with no signs of acute ischemia Chest xray prominence of the lung interstitium with perihilar fullness and small right pleural effusion. Findings are favored to represent fluid overload. Patchy bibasilar airspace opacities which may be related to fluid overload however superimposed pneumonia was not excluded. Laboratory data: WBC 12.1. Hemoglobin 8.9. Platelet count 407. Sodium 129. Potassium 4.1. BUN 27. Creatinine 3.18. Glucose 652. Troponin 0.015. 0.134. 0.306. ProBNP 7500. Current home cardiac medications include simvastatin 40 mg daily, Imdur 60 mg twice a day, Lasix 80 mg daily, and aspirin 81 mg daily Most recent echocardiogram obtained in December 2020 revealed ejection fraction 50- 55%, mild aortic regurgitation, mild aortic stenosis, mild mitral regurgitation, and mild to moderate mitral stenosis Cardiac catheterization history: April 2020 with PCI of the ostial PDA branch of RCA 04/11/2021 Patient examined this morning at the bedside. He underwent cardiac catheterization yesterday with PCI to the RCA. Patient denies chest pain or pressure. He denies shortness of breath. Patient underwent hemodialysis yesterday after his heart catheterization and tolerated well. Patient's blood pressure is elevated and has been running with a systolic between 150 and 170. Echocardiogram completed revealed ejection fraction 45-50%. Basal inferior LV wall hypokinesis. Mid inferior LV wall hypokinesis. Mild to moderate aortic regurgitation. Mild aortic stenosis. Mild mitral regurgitation. [id number] mitral stenosis. Cannot rule out vegetation. 04/12/2021 Patient examined this morning at the bedside. Patient denies chest pain or pressure. He denies shortness of breath. Patient is to undergo hemodialysis today and then is to be discharged home after that. PHYSICAL EXAM: VITAL SIGNS: Reviewed. GENERAL: Well-developed in no acute distress. HEENT: Head is normocephalic. Pupils are equal, round. Sclerae anicteric. Mucous membranes of the mouth are moist. Neck supple. No JVD or thyromegaly LUNGS: Respirations even and unlabored. Lungs essentially clear to auscultation bilaterally. HEART: Regular rate and rhythm. S1 and S2 heard. EXTREMITIES: Normal range of motion. No clubbing or cyanosis. Peripheral pulses intact. No lower extremity edema. Right radial cath site with TR band present ASSESSMENT: Non-ST elevated myocardial infarction Coronary artery disease with previous PCI, most recent in April 2020 Chronic kidney disease on hemodialysis Acute of chronic diastolic congestive heart failure Hypertension Hyperlipidemia Peripheral vascular disease with previous intervention to lower extremities PLAN: Continue current cardiac medications Stable from a cardiac perspective Further recommendations pending patient course Nurse practitioner note has been reviewed by physician. Signing provider agrees with the documented findings, assessment, and plan of care. Objective - Vital Signs Vital signs: Vital Signs Temp 98.3 F 04/12/21 08:00 Pulse 74 04/12/21 12:00 Resp 20 04/12/21 12:00 BP 168/61 04/12/21 12:00 Pulse Ox 99 04/12/21 12:00 Intake & Output 04/11/21 04/12/21 04/12/21 18:59 06:59 18:59 Intake Total 820 240 Output Total 100 Balance 720 240 Weight 76.7 kg 77.1 kg Intake: Intake, IV Titration 100 Amount Sodium Ferric Gluconat- 100 Sucrose 125 mg In Sodium Chloride 0.9% 100 ml @ 100 mls/hr IVPB ONCE ONE Rx#:[id number] Oral 720 240 Output: Urine 100 Other: Voiding Method Urinal Urinal # Voids 2 - Labs CBC & Chem 7: 04/12/21 12:31 04/12/21 12:31 Labs: Abnormal Lab Results - Last 24 Hours (Table) 04/11/21 04/11/21 04/11/21 Range/Units 08:45 15:49 20:14 RBC (4.30-5.90) m/uL Hgb (13.0-17.5) gm/dL Hct (39.0-53.0) % RDW (11.5-15.5) % Sodium (137-145) mmol/L BUN (9-20) mg/dL Creatinine (0.66-1.25) mg/dL Glucose (74-99) mg/dL POC Glucose (mg/dL) 272 H 314 H (75-99) mg/dL Hemoglobin A1c 9.1 H (4.0-6.0) % 04/12/21 04/12/21 04/12/21 Range/Units 06:11 11:57 12:31 RBC 2.94 L (4.30-5.90) m/uL Hgb 9.2 L (13.0-17.5) gm/dL Hct 28.1 L (39.0-53.0) % RDW 16.7 H (11.5-15.5) % Sodium (137-145) mmol/L BUN (9-20) mg/dL Creatinine (0.66-1.25) mg/dL Glucose (74-99) mg/dL POC Glucose (mg/dL) 159 H 273 H (75-99) mg/dL Hemoglobin A1c (4.0-6.0) % 04/12/21 Range/Units 12:31 RBC (4.30-5.90) m/uL Hgb (13.0-17.5) gm/dL Hct (39.0-53.0) % RDW (11.5-15.5) % Sodium 133 L (137-145) mmol/L BUN 31 H (9-20) mg/dL Creatinine 2.94 H (0.66-1.25) mg/dL Glucose 309 H (74-99) mg/dL POC Glucose (mg/dL) (75-99) mg/dL Hemoglobin A1c (4.0-6.0) %
[2021-04-12 15:37] VITALS: PULSE 63
[2021-04-12 16:58] VITALS: BP 150/73; RESP 20; TEMP 97.7
== END 2021-04-12 16:51 | disposition home or self-care (01) | DRG 246 ==
LOC: EC 16:02 → 3SCARD 18:28
PROVIDERS: ADMIT Internal Medicine; ATTEND Internal Medicine
PROC: 5A1D70Z Performance of Urinary Filtration, Intermittent, Less than 6 Hours Per Day (ICD-10-PCS; 2021-04-10)
PROC: 027034Z Dilation of Coronary Artery, One Artery with Drug-eluting Intraluminal Device, Percutaneous Approach (ICD-10-PCS; principal; 2021-04-10 11:00)
PROC: 4A023N7 Measurement of Cardiac Sampling and Pressure, Left Heart, Percutaneous Approach (ICD-10-PCS; 2021-04-10 11:00)
PROC: B2111ZZ Fluoroscopy of Multiple Coronary Arteries using Low Osmolar Contrast (ICD-10-PCS; 2021-04-10 11:00)
DX: I21.4 Non-ST elevation (NSTEMI) myocardial infarction (principal); N18.6 End stage renal disease; I13.2 Hypertensive heart and chronic kidney disease with heart failure and with stage 5 chronic kidney disease, or end stage renal disease; I50.33 Acute on chronic diastolic (congestive) heart failure; E11.22 Type 2 diabetes mellitus with diabetic chronic kidney disease; E87.1 Hypo-osmolality and hyponatremia; D63.1 Anemia in chronic kidney disease; E11.51 Type 2 diabetes mellitus with diabetic peripheral angiopathy without gangrene; E11.65 Type 2 diabetes mellitus with hyperglycemia; J44.9 Chronic obstructive pulmonary disease, unspecified; Z79.4 Long term (current) use of insulin; I25.10 Atherosclerotic heart disease of native coronary artery without angina pectoris; Z99.2 Dependence on renal dialysis; E78.5 Hyperlipidemia, unspecified; G25.81 Restless legs syndrome; D50.0 Iron deficiency anemia secondary to blood loss (chronic); I08.3 Combined rheumatic disorders of mitral, aortic and tricuspid valves; G89.29 Other chronic pain; K21.9 Gastro-esophageal reflux disease without esophagitis; M54.42 Lumbago with sciatica, left side; M54.41 Lumbago with sciatica, right side; I25.2 Old myocardial infarction; G47.00 Insomnia, unspecified; F32.9 Major depressive disorder, single episode, unspecified; F43.10 Post-traumatic stress disorder, unspecified; F17.210 Nicotine dependence, cigarettes, uncomplicated; Z79.82 Long term (current) use of aspirin; Z79.51 Long term (current) use of inhaled steroids; Z79.899 Other long term (current) drug therapy; Z77.098 Contact with and (suspected) exposure to other hazardous, chiefly nonmedicinal, chemicals; Z86.010 Personal history of colon polyps; Z95.5 Presence of coronary angioplasty implant and graft; Z87.01 Personal history of pneumonia (recurrent); Z90.49 Acquired absence of other specified parts of digestive tract; Z87.19 Personal history of other diseases of the digestive system; Z95.828 Presence of other vascular implants and grafts; Z98.890 Other specified postprocedural states; Z91.041 Radiographic dye allergy status; Z80.9 Family history of malignant neoplasm, unspecified
CPT/HCPCS: 36415; 71046; 80048; 80053; 80061; 81001; 82009; 82728; 83036; 83540; 83550; 83735; 83880; 84132; 84484; 85025; 85027; 85610; 85730; 90935; 93005; 93306; 93458; 94640; 94760; 96372; 96374; 96375; 99285

== ENCOUNTER 2021-04-24 15:36 | Emergency (ER) | payer MEDICARE, OTHER ==
[2021-04-24 16:32] LABS: Anisocytosis Slight; Basophils % (A) 0 %; Eosinophils # (A) 0.2 k/uL (0-0.7); Eosinophils % (A) 2 %; HCT 23.5 % (39.0-53.0); Hypochromasia Slight; Lymphocytes # (A) 0.8 k/uL (1.0-4.8); Lymphocytes % (A) 8 %; MCH 30.2 pg (25.0-35.0); MCHC 31.2 g/dL (31.0-37.0); Macrocytosis Slight; Mean Platelet Volume 8.2; Monocytes # (A) 0.4 k/uL (0-1.0); Monocytes % (A) 4 %; Neutrophils % (A) 84 %; Platelet Count 406 k/uL (150-450); RBC 2.42 m/uL (4.30-5.90); WBC 9.5 k/uL (3.8-10.6)
[2021-04-24 16:35] LABS: HGB 7.3 gm/dL (13.0-17.5)
[2021-04-24 16:41] LABS: Albumin 3.2 g/dL (3.5-5.0); Calcium 8.9 mg/dL (8.4-10.2); INR 0.9 (<1.2); Magnesium 1.8 mg/dL (1.6-2.3); Partial Thromboplastin Time 24.4 sec (22.0-30.0); Potassium 3.6 mmol/L (3.5-5.1); Prothrombin Time 9.6 sec (9.0-12.0); Total Bilirubin 0.1 mg/dL (0.2-1.3); Total Protein 5.9 g/dL (6.3-8.2)
--- NOTE | 2021-04-24 17:22 | ED ---
Recheck HPI - General Chief Complaint: Recheck/Abnormal Lab/Rx Stated Complaint: low hemoglobin, sent from dialysis Time Seen by Provider: 04/24/21 15:55 Source: patient Mode of arrival: wheelchair Limitations: no limitations - History of Present Illness Initial Comments: 71-year-old male with history of chronic kidney disease, anemia, dialysis Saturday presenting to the emergency department with a chief complaint of a low hemoglobin. Patient laboratory work obtained earlier today prior to dialysis. Patient had dialysis performed and was discharged home. They were then contacted and informed the patient had a hemoglobin of 6.8. The reports the patient is feeling weaker than usual. She states the patient had transfusions in the ED before. Patient denies any nausea vomiting diarrhea chest pain or shortness of breath. - Related Data Home Medications Medication Instructions Recorded Confirmed RX: Ergocalciferol (Vitamin D2) 50,000 unit PO Q14D 07/18/17 04/24/21 [Vitamin D2] RX: Aspirin EC [Ecotrin Low Dose] 81 mg PO HS 02/10/18 04/24/21 RX: Cyanocobalamin [Vitamin B-12] 1,000 mcg PO DAILY 09/23/18 04/24/21 RX: glipiZIDE [Glucotrol] 5 mg PO BID 05/22/19 04/24/21 RX: DULoxetine HCL [Cymbalta] 20 mg PO DAILY 10/27/20 04/24/21 RX: Folic Acid-Vit B Complex-Vit C 1 cap PO DAILY 12/19/20 04/24/21 [Nephrocaps] RX: Melatonin 5 mg PO HS 12/19/20 04/24/21 RX: Sennosides-Docusate Sodium 2 tab PO TID PRN 12/31/20 04/24/21 [Senokot-S] RX: Darbepoetin Joel [Aranesp] 60 mcg IV Q7D 01/23/21 04/24/21 RX: Gabapentin [Neurontin] 100 mg PO TID 01/23/21 04/24/21 RX: Loratadine 10 mg PO DAILY 01/23/21 04/24/21 RX: Nitroglycerin Sl Tabs 0.4 mg SL Q5M PRN 01/23/21 04/24/21 [Nitrostat] RX: rOPINIRole HCL [Requip] 0.5 mg PO TID 01/23/21 04/24/21 RX: Furosemide [Lasix] 80 mg PO DAILY 02/17/21 04/24/21 RX: Lidocaine-Prilocaine Cream 1 applic TOPICAL DIRECTED PRN 02/17/21 04/24/21 [Emla Cream 2.5%/2.5%] Previous Rx's Medication Instructions Recorded RX: Isosorbide Mononitrate ER 60 mg PO BID #60 tab.er.24h 04/21/20 [Imdur] RX: Budesonide-Formot 160-4.5 Mcg 2 puff INHALATION RT-BID #1 inhaler 02/01/21 [Symbicort 160-4.5 Mcg Inhaler] RX: Insulin Glargine [Lantus Vial] 20 unit SQ HS #0 02/02/21 RX: Omeprazole [PriLOSEC] 40 mg PO HS #0 02/18/21 RX: Atorvastatin [Lipitor] 20 mg PO HS #30 tab 04/12/21 RX: Clopidogrel [Plavix] 75 mg PO DAILY #30 tab 04/12/21 RX: Metoprolol Tartrate [Lopressor] 25 mg PO BID #60 tab 04/12/21 RX: amLODIPine [Norvasc] 10 mg PO DAILY #30 tab 04/12/21 Allergies Allergy/AdvReac Type Severity Reaction Status Date / Time Iodinated Contrast Media AdvReac CAN'T Verified 04/24/21 16:20 TAKE, RENAL DISEASE Iodine and Iodide Containing AdvReac CAN'T Verified 04/24/21 16:20 Produc TAKE, RENAL DISEASE Review of Systems ROS Statement: Those systems with pertinent positive or pertinent negative responses have been documented in the HPI. ROS Other: All systems not noted in ROS Statement are negative. Past Medical History Past Medical History: Coronary Artery Disease (CAD), Chest Pain / Angina, COPD, Diabetes Mellitus, GERD/Reflux, GI Bleed, Hyperlipidemia, Hypertension, Pn eumonia, Renal Disease, Vascular Disorder Additional Past Medical History / Comment(s): IDDM type II, lower GI bleed, benign colon polyps, spouse states micro bleeds in intestine are suspected, abdominal distention comes and goes which is nearly daily, partial SBO, chronic renal disease stage IV, iron anemia with iron transfusions (recent R upper chest mediport for infusions), PVD, stable lung nodules, chronic low back pain with bilateral sciatica, RLS, vertigo, insomnia, past agent orange exposure. Last Myocardial Infarction Date:: 03/2020 History of Any Multi-Drug Resistant Organisms: None Reported Past Surgical History: Cholecystectomy, Heart Catheterization Additional Past Surgical History / Comment(s): 03/25/20 R sublclavian mediport, R carotid stent done in [place], EGD/colonoscopyDecember 2017, endoscopic capsule, fx lt wrist -sx re-set, aortagram, bilateral leg revascularizations/stents Past Anesthesia/Blood Transfusion Reactions: No Reported Reaction Additional Past Anesthesia/Blood Transfusion Reaction / Comment(s): Pt has had blood transfusion without reaction. Date of Last Stent Placement:: 04/27/20 Past Psychological History: Depression, PTSD Smoking Status: Current every day smoker Past Alcohol Use History: None Reported Past Drug Use History: None Reported - Past Family History Father History Unknown: Yes Mother Family Medical History: Cancer Additional Family Medical History / Comment(s): Mother from metastatic cancer pelvic origin. General Exam Limitations: no limitations General appearance: alert, in no apparent distress Head exam: Present: atraumatic, normocephalic, normal inspection Eye exam: Present: normal appearance, other (Pale mucous membranes) Pupils: Present: normal accommodation ENT exam: Present: normal exam, normal oropharynx, mucous membranes moist Neck exam: Present: normal inspection, full ROM. Absent: tenderness Respiratory exam: Present: normal lung sounds bilaterally. Absent: respiratory distress Cardiovascular Exam: Present: regular rate, normal rhythm, normal heart sounds. Absent: systolic murmur GI/Abdominal exam: Present: soft. Absent: distended, tenderness, guarding, rebound Extremities exam: Present: normal inspection, full ROM. Absent: tenderness Back exam: Present: normal inspection, full ROM. Absent: tenderness, CVA tenderness (R), CVA tenderness (L), muscle spasm Neurological exam: Present: alert, oriented X3 Psychiatric exam: Present: normal affect, normal mood Skin exam: Present: warm, dry, intact, normal color Course Vital Signs 04/24/21 04/24/21 04/24/21 15:48 18:06 19:06 Temperature 98.1 F 97.9 F 98 F Pulse Rate 69 80 71 Respiratory 20 18 16 Rate Blood Pressure 123/53 138/56 136/51 O2 Sat by Pulse 99 97 97 Oximetry 04/24/21 19:16 Temperature 97.9 F Pulse Rate 65 Respiratory 16 Rate Blood Pressure 137/56 O2 Sat by Pulse Oximetry Medical Decision Making - Medical Decision Making [id number] male with history of chronic kidney disease, anemia, dialysis Saturday presenting to the emergency department with a chief complaint of a low hemoglobin. On physical examination, pale mucous membranes. Repeat laboratory work reveals hemoglobin of 7.3. Patient will still be given 1 unit of blood. Patient was offered admission due to symptomatic anemia, he declined. States he would rather go home. Return parameters were discussed with patient was understanding and agreeable. Case discussed with Dr. Andersen. - Lab Data Result diagrams: 04/24/21 16:25 04/24/21 16:25 Lab Results 04/24/21 04/24/21 04/24/21 Range/Units 16:25 16:25 16:25 WBC 9.5 (3.8-10.6) k/uL RBC 2.42 L (4.30-5.90) m/uL Hgb 7.3 L D (13.0-17.5) gm/dL Hct 23.5 L (39.0-53.0) % MCV 97.0 (80.0-100.0) fL MCH 30.2 (25.0-35.0) pg MCHC 31.2 (31.0-37.0) g/dL RDW 19.0 H (11.5-15.5) % Plt Count 406 (150-450) k/uL MPV 8.2 Neutrophils % 84 % Lymphocytes % 8 % Monocytes % 4 % Eosinophils % 2 % Basophils % 0 % Neutrophils # 8.0 H (1.3-7.7) k/uL Lymphocytes # 0.8 L (1.0-4.8) k/uL Monocytes # 0.4 (0-1.0) k/uL Eosinophils # 0.2 (0-0.7) k/uL Basophils # 0.0 (0-0.2) k/uL Hypochromasia Slight Anisocytosis Slight Macrocytosis Slight PT 9.6 (9.0-12.0) sec INR 0.9 (<1.2) APTT 24.4 (22.0-30.0) sec Sodium 132 L (137-145) mmol/L Potassium 3.6 (3.5-5.1) mmol/L Chloride 96 L (98-107) mmol/L Carbon Dioxide 28 (22-30) mmol/L Anion Gap 8 mmol/L BUN 19 (9-20) mg/dL Creatinine 1.90 H (0.66-1.25) mg/dL Est GFR (CKD-EPI)AfAm 40 (>60 ml/min/1.73 sqM) Est GFR (CKD-EPI)NonAf 34 (>60 ml/min/1.73 sqM) Glucose 209 H (74-99) mg/dL Calcium 8.9 (8.4-10.2) mg/dL Phosphorus 3.0 (2.5-4.5) mg/dL Magnesium 1.8 (1.6-2.3) mg/dL Total Bilirubin 0.1 L (0.2-1.3) mg/dL AST 20 (17-59) U/L ALT 11 (4-49) U/L Alkaline Phosphatase 100 (38-126) U/L Troponin I (0.000-0.034) ng/mL Total Protein 5.9 L (6.3-8.2) g/dL Albumin 3.2 L (3.5-5.0) g/dL Blood Type Blood Type Recheck Bld Type Recheck Status Antibody Screen Crossmatch Spec Expiration Date 04/24/21 04/24/21 Range/Units 16:25 17:15 WBC (3.8-10.6) k/uL RBC (4.30-5.90) m/uL Hgb (13.0-17.5) gm/dL Hct (39.0-53.0) % MCV (80.0-100.0) fL MCH (25.0-35.0) pg MCHC (31.0-37.0) g/dL RDW (11.5-15.5) % Plt Count (150-450) k/uL MPV Neutrophils % % Lymphocytes % % Monocytes % % Eosinophils % % Basophils % % Neutrophils # (1.3-7.7) k/uL Lymphocytes # (1.0-4.8) k/uL Monocytes # (0-1.0) k/uL Eosinophils # (0-0.7) k/uL Basophils # (0-0.2) k/uL Hypochromasia Anisocytosis Macrocytosis PT (9.0-12.0) sec INR (<1.2) APTT (22.0-30.0) sec Sodium (137-145) mmol/L Potassium (3.5-5.1) mmol/L Chloride (98-107) mmol/L Carbon Dioxide (22-30) mmol/L Anion Gap mmol/L BUN (9-20) mg/dL Creatinine (0.66-1.25) mg/dL Est GFR (CKD-EPI)AfAm (>60 ml/min/1.73 sqM) Est GFR (CKD-EPI)NonAf (>60 ml/min/1.73 sqM) Glucose (74-99) mg/dL Calcium (8.4-10.2) mg/dL Phosphorus (2.5-4.5) mg/dL Magnesium (1.6-2.3) mg/dL Total Bilirubin (0.2-1.3) mg/dL AST (17-59) U/L ALT (4-49) U/L Alkaline Phosphatase (38-126) U/L Troponin I <0.012 (0.000-0.034) ng/mL Total Protein (6.3-8.2) g/dL Albumin (3.5-5.0) g/dL Blood Type B Positive Blood Type Recheck B Pos Bld Type Recheck Status No Antibody Screen NEGATIVE Crossmatch See Detail Spec Expiration Date 04/27/2021 - 9140 - EKG Data EKG Comments: Sinus rhythm Ventricular rate 67, NC 166, QRS 90, QTC 481. Disposition Clinical Impression: Anemia Disposition: HOME SELF-CARE Condition: Stable Instructions (If sedation given, give patient instructions): Anemia (ED) Additional Instructions: Please return to the Emergency Department if symptoms worsen or any other concerns. Is patient prescribed a controlled substance at d/c from ED?: No Referrals: [facility],Clinic [Primary Care Provider] - 1-2 days Time of Disposition: 19:23
[2021-04-24] MEDS ORDERED: Acetaminophen-Codeine 300-30mg TAB PO STA (19:07)
[2021-04-24] MEDS ORDERED: ONDANSETRON 4 MG TAB PO STA (19:40)
[2021-04-24 21:33] VITALS: BP 167/61; PULSE 66; RESP 16; TEMP 98
== END 2021-04-24 22:16 | disposition home or self-care (01) ==
LOC: EC 15:36
DX: D64.9 Anemia, unspecified (principal); J44.9 Chronic obstructive pulmonary disease, unspecified; R53.1 Weakness; I25.2 Old myocardial infarction; E11.22 Type 2 diabetes mellitus with diabetic chronic kidney disease; I12.9 Hypertensive chronic kidney disease with stage 1 through stage 4 chronic kidney disease, or unspecified chronic kidney disease; N18.4 Chronic kidney disease, stage 4 (severe); F17.200 Nicotine dependence, unspecified, uncomplicated; Z79.4 Long term (current) use of insulin; Z88.8 Allergy status to other drugs, medicaments and biological substances; Z79.82 Long term (current) use of aspirin; Z86.79 Personal history of other diseases of the circulatory system
CPT/HCPCS: 36415; 93005; 86900; 86901; 80053; 83735; 84100; 84484; 85025; 85610; 85730; 86850; 86920; 99285; P9016

== ENCOUNTER 2021-05-06 10:19 | Emergency (ER) | payer MEDICARE, OTHER ==
[2021-05-06 10:28] VITALS: TEMP 97.8
--- NOTE | 2021-05-06 10:56 | ED ---
General Adult HPI - General Chief complaint: Recheck/Abnormal Lab/Rx Stated complaint: abd labs Time Seen by Provider: 05/06/21 10:43 Source: patient, family, RN notes reviewed, old records reviewed Mode of arrival: ambulatory Limitations: no limitations - History of Present Illness Initial comments: This is a well-appearing 71-year-old white male that presents to the emergency room, alert and oriented 4, complaining of generalized weakness and fatigue. He was sent for a low hemoglobin drawn at dialysis yesterday. He denies any chest pain or shortness of breath he states that he does get tired with exertion. He states that he had a stent placed on April 10 and was put on Plavix. In the past when he was on Plavix his hemoglobin has dropped. His last transfusion was . He denies any bleeding, hematuria or bloody stools Location: left, right, lower extremity (Chronic restless legs syndrome) Severity scale (1-10): 0 Quality: aching Consistency: intermittent, now resolved Improves with: medication Associated Symptoms: denies other symptoms Treatments Prior to Arrival: none - Related Data Home Medications Medication Instructions Recorded Confirmed Ergocalciferol (Vitamin D2) 50,000 unit PO Q14D 07/18/17 04/24/21 [Vitamin D2] Aspirin EC [Ecotrin Low Dose] 81 mg PO HS 02/10/18 04/24/21 Cyanocobalamin [Vitamin B-12] 1,000 mcg PO DAILY 09/23/18 04/24/21 glipiZIDE [Glucotrol] 5 mg PO BID 05/22/19 04/24/21 DULoxetine HCL [Cymbalta] 20 mg PO DAILY 10/27/20 04/24/21 Folic Acid-Vit B Complex-Vit C 1 cap PO DAILY 12/19/20 04/24/21 [Nephrocaps] Melatonin 5 mg PO HS 12/19/20 04/24/21 Sennosides-Docusate Sodium 2 tab PO TID PRN 12/31/20 04/24/21 [Senokot-S] Darbepoetin Joel [Aranesp] 60 mcg IV Q7D 01/23/21 04/24/21 Gabapentin [Neurontin] 100 mg PO TID 01/23/21 04/24/21 Loratadine 10 mg PO DAILY 01/23/21 04/24/21 Nitroglycerin Sl Tabs [Nitrostat] 0.4 mg SL Q5M PRN 01/23/21 04/24/21 rOPINIRole HCL [Requip] 0.5 mg PO TID 01/23/21 04/24/21 Furosemide [Lasix] 80 mg PO DAILY 02/17/21 04/24/21 Lidocaine-Prilocaine Cream [Emla 1 applic TOPICAL DIRECTED PRN 02/17/21 04/24/21 Cream 2.5%/2.5%] Previous Rx's Medication Instructions Recorded Isosorbide Mononitrate ER [Imdur] 60 mg PO BID #60 tab.er.24h 04/21/20 Budesonide-Formot 160-4.5 Mcg 2 puff INHALATION RT-BID #1 inhaler 02/01/21 [Symbicort 160-4.5 Mcg Inhaler] Insulin Glargine [Lantus Vial] 20 unit SQ HS #0 02/02/21 Omeprazole [PriLOSEC] 40 mg PO HS #0 02/18/21 Atorvastatin [Lipitor] 20 mg PO HS #30 tab 04/12/21 Clopidogrel [Plavix] 75 mg PO DAILY #30 tab 04/12/21 Metoprolol Tartrate [Lopressor] 25 mg PO BID #60 tab 04/12/21 amLODIPine [Norvasc] 10 mg PO DAILY #30 tab 04/12/21 Allergies Allergy/AdvReac Type Severity Reaction Status Date / Time Iodinated Contrast Media AdvReac CAN'T Verified 05/06/21 10:27 TAKE, RENAL DISEASE Iodine and Iodide Containing AdvReac CAN'T Verified 05/06/21 10:27 Produc TAKE, RENAL DISEASE Review of Systems ROS Statement: Those systems with pertinent positive or pertinent negative responses have been documented in the HPI. ROS Other: All systems not noted in ROS Statement are negative. Past Medical History Past Medical History: Coronary Artery Disease (CAD), Chest Pain / Angina, COPD, Diabetes Mellitus, GERD/Reflux, GI Bleed, Hyperlipidemia, Hypertension, Pneumonia, Renal Disease, Vascular Disorder Additional Past Medical History / Comment(s): IDDM type II, lower GI bleed, benign colon polyps, spouse states micro bleeds in intestine are suspected, abdominal distention comes and goes which is nearly daily, partial SBO, chronic renal disease stage IV, iron anemia with iron transfusions (recent R upper chest mediport for infusions), PVD, stable lung nodules, chronic low back pain with bilateral sciatica, RLS, vertigo, insomnia, past agent orange exposure. Last Myocardial Infarction Date:: 03/2020 History of Any Multi-Drug Resistant Organisms: None Reported Past Surgical History: Cholecystectomy, Heart Catheterization Additional Past Surgical History / Comment(s): 03/25/20 R sublclavian mediport, R carotid stent done in [place], EGD/colonoscopyDecember 2016, endoscopic capsule, fx lt wrist -sx re-set, aortagram, bilateral leg revascularizations/stents Past Anesthesia/Blood Transfusion Reactions: No Reported Reaction Additional Past Anesthesia/Blood Transfusion Reaction / Comment(s): Pt has had blood transfusion without reaction. Date of Last Stent Placement:: 04/27/20 Past Psychological History: Depression, PTSD Smoking Status: Current every day smoker Past Alcohol Use History: None Reported Past Drug Use History: None Reported - Past Family History Father History Unknown: Yes Mother Family Medical History: Cancer Additional Family Medical History / Comment(s): Mother from metastatic cancer pelvic origin. General Exam Limitations: no limitations General appearance: alert, in no apparent distress Head exam: Present: atraumatic, normocephalic, normal inspection Eye exam: Present: PERRL, EOMI, other (Pill conjunctiva) ENT exam: Present: normal exam, mucous membranes moist Neck exam: Present: normal inspection, full ROM. Absent: tenderness, meningismus, lymphadenopathy, thyromegaly Respiratory exam: Present: rales. Absent: respiratory distress (Right lower quadrant), stridor, chest wall tenderness, accessory muscle use Cardiovascular Exam: Present: regular rate, normal rhythm, normal heart sounds. Absent: systolic murmur, diastolic murmur, rubs, gallop, clicks GI/Abdominal exam: Present: soft, normal bowel sounds. Absent: distended, ten derness, guarding, rebound, rigid Extremities exam: Present: full ROM, normal capillary refill, other (Bruising to bilateral forearms). Absent: tenderness Back exam: Present: normal inspection, full ROM. Absent: tenderness, CVA tenderness (R), CVA tenderness (L), rash noted Neurological exam: Present: alert, oriented X3, CN II-XII intact Psychiatric exam: Present: normal affect, normal mood Skin exam: Present: warm, dry, intact, pallor. Absent: rash, cyanosis, diaphor etic Course Vital Signs 05/06/21 10:25 Temperature 97.8 F Pulse Rate 63 Respiratory 20 Rate Blood Pressure 131/56 O2 Sat by Pulse 99 Oximetry EKG Findings - EKG Results: EKG: sinus rhythm (Ventricular rate of 63, LA interval 0.162, QRS of 0.100, QTC 0.487), no acute changes, not changed from: (04/24/21) Medical Decision Making - Medical Decision Making Patient's hemoglobin is 7.4 and hematocrit is 23.8. He is a renal dialysis patient. His EKG shows normal sinus rhythm with a ventricular rate of 63. No acute changes. Troponin is negative at 0.012. Patient is agreeable to being discharged home and following up with his primary care doctor. He also directed to return to the emergency room with any new or worsening symptoms including chest pain, shortness of breath or any abnormal bleeding. Case discussed with Dr. Azevedo - Lab Data Result diagrams: 05/06/21 11:25 05/06/21 11:25 Lab Results 05/06/21 05/06/21 05/06/21 Range/Units 11:25 11:25 11:25 WBC 9.7 (3.8-10.6) k/uL RBC 2.44 L (4.30-5.90) m/uL Hgb 7.4 L (13.0-17.5) gm/dL Hct 23.8 L (39.0-53.0) % MCV 97.3 (80.0-100.0) fL MCH 30.1 (25.0-35.0) pg MCHC 30.9 L (31.0-37.0) g/dL RDW 17.8 H (11.5-15.5) % Plt Count 410 (150-450) k/uL MPV 8.4 Neutrophils % 85 % Lymphocytes % 7 % Monocytes % 5 % Eosinophils % 1 % Basophils % 0 % Neutrophils # 8.2 H (1.3-7.7) k/uL Lymphocytes # 0.7 L (1.0-4.8) k/uL Monocytes # 0.5 (0-1.0) k/uL Eosinophils # 0.1 (0-0.7) k/uL Basophils # 0.0 (0-0.2) k/uL Hypochromasia Slight Anisocytosis Slight Macrocytosis Slight PT 9.6 (9.0-12.0) sec INR 0.9 (<1.2) APTT 23.5 (22.0-30.0) sec Sodium (137-145) mmol/L Potassium (3.5-5.1) mmol/L Chloride (98-107) mmol/L Carbon Dioxide (22-30) mmol/L Anion Gap mmol/L BUN (9-20) mg/dL Creatinine (0.66-1.25) mg/dL Est GFR (CKD-EPI)AfAm (>60 ml/min/1.73 sqM) Est GFR (CKD-EPI)NonAf (>60 ml/min/1.73 sqM) Glucose (74-99) mg/dL Plasma Lactic Acid Leobardo (0.7-2.0) mmol/L Calcium (8.4-10.2) mg/dL Magnesium (1.6-2.3) mg/dL Total Bilirubin (0.2-1.3) mg/dL AST (17-59) U/L ALT (4-49) U/L Alkaline Phosphatase (38-126) U/L Troponin I (0.000-0.034) ng/mL Total Protein (6.3-8.2) g/dL Albumin (3.5-5.0) g/dL Urine Color Yellow Urine Appearance Clear (Clear) Urine pH 5.5 (5.0-8.0) Ur Specific [place] 1.014 (1.001-1.035) Urine Protein 2+ H (Negative) Urine Glucose (UA) Negative (Negative) Urine Ketones Negative (Negative) Urine Blood Negative (Negative) Urine Nitrite Negative (Negative) Urine Bilirubin Negative (Negative) Urine Urobilinogen 2.0 (<2.0) mg/dL Ur Leukocyte Esterase Negative (Negative) Urine RBC 2 (0-5) /hpf Urine WBC 1 (0-5) /hpf Ur Squamous Epith Cells <1 (0-4) /hpf Hyaline Casts 4 H (0-2) /lpf Urine Mucus Rare H (None) /hpf 05/06/21 05/06/21 05/06/21 Range/Units 11:25 11:25 11:25 WBC (3.8-10.6) k/uL RBC (4.30-5.90) m/uL Hgb (13.0-17.5) gm/dL Hct (39.0-53.0) % MCV (80.0-100.0) fL MCH (25.0-35.0) pg MCHC (31.0-37.0) g/dL RDW (11.5-15.5) % Plt Count (150-450) k/uL MPV Neutrophils % % Lymphocytes % % Monocytes % % Eosinophils % % Basophils % % Neutrophils # (1.3-7.7) k/uL Lymphocytes # (1.0-4.8) k/uL Monocytes # (0-1.0) k/uL Eosinophils # (0-0.7) k/uL Basophils # (0-0.2) k/uL Hypochromasia Anisocytosis Macrocytosis PT (9.0-12.0) sec INR (<1.2) APTT (22.0-30.0) sec Sodium 134 L (137-145) mmol/L Potassium 4.0 (3.5-5.1) mmol/L Chloride 99 (98-107) mmol/L Carbon Dioxide 27 (22-30) mmol/L Anion Gap 8 mmol/L BUN 30 H (9-20) mg/dL Creatinine 2.50 H (0.66-1.25) mg/dL Est GFR (CKD-EPI)AfAm 29 (>60 ml/min/1.73 sqM) Est GFR (CKD-EPI)NonAf 25 (>60 ml/min/1.73 sqM) Glucose 147 H (74-99) mg/dL Plasma Lactic Acid Leobardo 1.1 (0.7-2.0) mmol/L Calcium 9.0 (8.4-10.2) mg/dL Magnesium 1.8 (1.6-2.3) mg/dL Total Bilirubin 0.3 (0.2-1.3) mg/dL AST 24 (17-59) U/L ALT 12 (4-49) U/L Alkaline Phosphatase 91 (38-126) U/L Troponin I <0.012 (0.000-0.034) ng/mL Total Protein 6.0 L (6.3-8.2) g/dL Albumin 3.2 L (3.5-5.0) g/dL Urine Color Urine Appearance (Clear) Urine pH (5.0-8.0) Ur Specific [place] (1.001-1.035) Urine Protein (Negative) Urine Glucose (UA) (Negative) Urine Ketones (Negative) Urine Blood (Negative) Urine Nitrite (Negative) Urine Bilirubin (Negative) Urine Urobilinogen (<2.0) mg/dL Ur Leukocyte Esterase (Negative) Urine RBC (0-5) /hpf Urine WBC (0-5) /hpf Ur Squamous Epith Cells (0-4) /hpf Hyaline Casts (0-2) /lpf Urine Mucus (None) /hpf Disposition Clinical Impression: Anemia, Anemia in chronic kidney disease (CKD) Disposition: HOME SELF-CARE Condition: Good Instructions (If sedation given, give patient instructions): Anemia (ED) Additional Instructions: Follow-up with your primary care doctor next week. Continue with her dialysis. Return to the emergency room with any new or worsening symptoms including shortness of breath, chest pain or any abnormal bleeding. Is patient prescribed a controlled substance at d/c from ED?: No Referrals: [facility],Clinic [Primary Care Provider] - 1-2 days Time of Disposition: 12:27
[2021-05-06 12:02] LABS: Albumin 3.2 g/dL (3.5-5.0); Magnesium 1.8 mg/dL (1.6-2.3); Total Bilirubin 0.3 mg/dL (0.2-1.3)
[2021-05-06 12:06] LABS: INR 0.9 (<1.2); Prothrombin Time 9.6 sec (9.0-12.0)
[2021-05-06 12:07] LABS: Partial Thromboplastin Time 23.5 sec (22.0-30.0)
[2021-05-06 12:08] LABS: Anisocytosis Slight; Basophils % (A) 0 %; Eosinophils # (A) 0.1 k/uL (0-0.7); Eosinophils % (A) 1 %; HCT 23.8 % (39.0-53.0); HGB 7.4 gm/dL (13.0-17.5); Hypochromasia Slight; Lymphocytes # (A) 0.7 k/uL (1.0-4.8); Lymphocytes % (A) 7 %; MCH 30.1 pg (25.0-35.0); MCHC 30.9 g/dL (31.0-37.0); MCV 97.3 fL (80.0-100.0); Macrocytosis Slight; Mean Platelet Volume 8.4; Monocytes # (A) 0.5 k/uL (0-1.0); Monocytes % (A) 5 %; Neutrophils # (A) 8.2 k/uL (1.3-7.7); Neutrophils % (A) 85 %; Platelet Count 410 k/uL (150-450); RBC 2.44 m/uL (4.30-5.90); RDW 17.8 % (11.5-15.5); WBC 9.7 k/uL (3.8-10.6)
--- NOTE | 2021-05-06 12:12 | XR ---
EXAMINATION TYPE: XR chest 2V DATE OF EXAM: 05/06/2021 COMPARISON: 04/09/2021 HISTORY: 71 years Male. STUDY INDICATION GIVEN: Weakness . TECHNIQUE: Frontal and lateral chest radiograph IMPRESSION: Right jugular Port-A-Cath tip at the cavoatrial junction/right atrium similar to prior study. Patchy bibasilar opacities again seen however decreased in number and size compared to prior study. F indings could be on the basis of a focal pneumonia/resolving pneumonia, bibasilar atelectasis and/or scarring. Recommend follow-up chest radiography to resolution to rule out developing mass lung nodule . Stable size right small pleural effusion. No pneumothorax. Centrilobular emphysema/COPD changes in the lung apices. No acute osseous abnormality.
[2021-05-06 12:16] LABS: Appearance,Urine Clear (Clear); Bilirubin,Urine Negative (Negative); Blood,Urine Negative (Negative); Color,Urine Yellow; Glucose,Urine (UA) Negative (Negative); Hyaline Casts,Urine 4 /lpf (0-2); Ketones,Urine Negative (Negative); Leukocyte Esterase,Urine Negative (Negative); Mucus,Urine Rare /hpf; Nitrite,Urine Negative (Negative); PH, Urine 5.5 (5.0-8.0); Protein,Urine 2+ (Negative); RBC,Urine 2 /hpf (0-5); Specific Gravity,Urine 1.014 (1.001-1.035); Squamous Epithelial Cell,Urine <1 /hpf (0-4); WBC,Urine 1 /hpf (0-5)
[2021-05-06 12:51] VITALS: BP 130/78; PULSE 66; RESP 18
== END 2021-05-06 12:51 | disposition home or self-care (01) ==
LOC: EC 10:19
DX: N18.4 Chronic kidney disease, stage 4 (severe) (principal); D63.1 Anemia in chronic kidney disease; E11.22 Type 2 diabetes mellitus with diabetic chronic kidney disease; I12.9 Hypertensive chronic kidney disease with stage 1 through stage 4 chronic kidney disease, or unspecified chronic kidney disease; F17.200 Nicotine dependence, unspecified, uncomplicated; I25.2 Old myocardial infarction; J44.9 Chronic obstructive pulmonary disease, unspecified; Z91.041 Radiographic dye allergy status; Z79.899 Other long term (current) drug therapy; Z79.84 Long term (current) use of oral hypoglycemic drugs
CPT/HCPCS: 36415; 71046; 80053; 81001; 83605; 83735; 84484; 85025; 85610; 85730; 86850; 86900; 86901; 99285

== ENCOUNTER 2021-05-08 18:45 | Inpatient (IN) | payer OTHER, MEDICARE ==
[2021-05-08] MEDS ORDERED: ONDANSETRON 4 MG/2 ML VIAL IVP STA (19:15)
[2021-05-08] MEDS ORDERED: METOCLOPRAMIDE 5 MG/ML 2 ML VIAL IVP STA (19:28)
[2021-05-08] MEDS ORDERED: MORPHINE SULFATE 4 MG/ML SYRINGE IVP STA (19:28)
--- NOTE | 2021-05-08 19:28 | ED ---
General Adult HPI <Donato Bird - Last Filed: 05/08/21 22:58> - General Source: patient, family (), RN notes reviewed, old records reviewed Mode of arrival: EMS Limitations: no limitations - History of Present Illness -: hour(s) (5) Location: abdomen Radiation: back Severity scale (1-10): 6 Consistency: constant Improves with: none Worsens with: none Associated Symptoms: nausea/vomiting Treatments Prior to Arrival: Aspirin, other (Zofran ) <Titus Delatorre - Last Filed: 05/08/21 23:10> - General Chief complaint: Chest Pain Stated complaint: Chest pain/vomiting Time Seen by Provider: 05/08/21 19:06 - History of Present Illness Initial comments: This is a 69-year-old white male patient presents to the emergency room with complaints of low back pain and nausea. He is tremulous and states he gets this way after dialysis. He was told today that his hemoglobin was 6.7. at bedside states that he normally gets tremulous and nauseated after dialysis. She said that she brought him home and when she left around 3 oclock, he said he was okay. When she came back he was in the bathroom complaining of nausea and back pain. Denies chest pain or shortness of breath. He is rolling on the cart back and forth complaining of severe nausea. (Titus Delatorre) - Related Data Home Medications Medication Instructions Recorded Confirmed Ergocalciferol (Vitamin D2) 50,000 unit PO Q14D 07/18/17 04/24/21 [Vitamin D2] Aspirin EC [Ecotrin Low Dose] 81 mg PO HS 02/10/18 04/24/21 Cyanocobalamin [Vitamin B-12] 1,000 mcg PO DAILY 09/23/18 04/24/21 glipiZIDE [Glucotrol] 5 mg PO BID 05/22/19 04/24/21 DULoxetine HCL [Cymbalta] 20 mg PO DAILY 10/27/20 04/24/21 Folic Acid-Vit B Complex-Vit C 1 cap PO DAILY 12/19/20 04/24/21 [Nephrocaps] Melatonin 5 mg PO HS 12/19/20 04/24/21 Sennosides-Docusate Sodium 2 tab PO TID PRN 12/31/20 04/24/21 [Senokot-S] Darbepoetin Joel [Aranesp] 60 mcg IV Q7D 01/23/21 04/24/21 Gabapentin [Neurontin] 100 mg PO TID 01/23/21 04/24/21 Loratadine 10 mg PO DAILY 01/23/21 04/24/21 Nitroglycerin Sl Tabs [Nitrostat] 0.4 mg SL Q5M PRN 01/23/21 04/24/21 rOPINIRole HCL [Requip] 0.5 mg PO TID 01/23/21 04/24/21 Furosemide [Lasix] 80 mg PO DAILY 02/17/21 04/24/21 Lidocaine-Prilocaine Cream [Emla 1 applic TOPICAL DIRECTED PRN 02/17/21 04/24/21 Cream 2.5%/2.5%] Previous Rx's Medication Instructions Recorded Isosorbide Mononitrate ER [Imdur] 60 mg PO BID #60 tab.er.24h 04/21/20 Budesonide-Formot 160-4.5 Mcg 2 puff INHALATION RT-BID #1 inhaler 02/01/21 [Symbicort 160-4.5 Mcg Inhaler] Insulin Glargine [Lantus Vial] 20 unit SQ HS #0 02/02/21 Omeprazole [PriLOSEC] 40 mg PO HS #0 02/18/21 Atorvastatin [Lipitor] 20 mg PO HS #30 tab 04/12/21 Clopidogrel [Plavix] 75 mg PO DAILY #30 tab 04/12/21 Metoprolol Tartrate [Lopressor] 25 mg PO BID #60 tab 04/12/21 amLODIPine [Norvasc] 10 mg PO DAILY #30 tab 04/12/21 Allergies Allergy/AdvReac Type Severity Reaction Status Date / Time Iodinated Contrast Media AdvReac CAN'T Verified 05/08/21 23:04 TAKE, RENAL DISEASE Iodine and Iodide Containing AdvReac CAN'T Verified 05/08/21 23:04 Produc TAKE, RENAL DISEASE Review of Systems ROS Other: All systems not noted in ROS Statement are negative. <Donato Bird - Last Filed: 05/08/21 22:58> ROS Other: All systems not noted in ROS Statement are negative. <Titus Delatorre - Last Filed: 05/08/21 23:10> ROS Statement: Those systems with pertinent positive or pertinent negative responses have been documented in the HPI. Past Medical History Past Medical History: Coronary Artery Disease (CAD), Chest Pain / Angina, COPD, Diabetes Mellitus, GERD/Reflux, GI Bleed, Hyperlipidemia, Hypertension, Pneumonia, Renal Disease, Vascular Disorder Additional Past Medical History / Comment(s): IDDM type II, lower GI bleed, benign colon polyps, spouse states micro bleeds in intestine are suspected, abdominal distention comes and goes which is nearly daily, partial SBO, chronic renal disease stage IV, iron anemia with iron transfusions (recent R upper chest mediport for infusions), PVD, stable lung nodules, chronic low back pain with bilateral sciatica, RLS, vertigo, insomnia, past agent orange exposure. Last Myocardial Infarction Date:: 03/2020 History of Any Multi-Drug Resistant Organisms: None Reported Past Surgical History: Cholecystectomy, Heart Catheterization Additional Past Surgical History / Comment(s): 03/25/20 R sublclavian mediport, R carotid stent done in [place], EGD/colonoscopyDecember 2016, endoscopic capsule, fx lt wrist -sx re-set, aortagram, bilateral leg revascularizations/stents Past Anesthesia/Blood Transfusion Reactions: No Reported Reaction Additional Past Anesthesia/Blood Transfusion Reaction / Comment(s): Pt has had blood transfusion without reaction. Date of Last Stent Placement:: 04/27/20 Past Psychological History: Depression, PTSD Smoking Status: Current every day smoker Past Alcohol Use History: None Reported Past Drug Use History: None Reported - Past Family History Father History Unknown: Yes Mother Family Medical History: Cancer Additional Family Medical History / Comment(s): Mother from metastatic ca ncer pelvic origin. <Titus Delatorre - Last Filed: 05/08/21 23:10> General Exam Limitations: no limitations General appearance: alert, in distress Head exam: Present: atraumatic, normocephalic, normal inspection Eye exam: Present: PERRL, EOMI, other (Conjunctiva pale) ENT exam: Present: normal exam, normal oropharynx, mucous membranes moist Neck exam: Present: normal inspection, full ROM. Absent: tenderness, m eningismus, lymphadenopathy Respiratory exam: Present: rhonchi. Absent: chest wall tenderness, accessory muscle use Cardiovascular Exam: Present: regular rate, normal rhythm, normal heart sounds. Absent: systolic murmur, diastolic murmur, rubs, gallop, clicks, JVD GI/Abdominal exam: Present: soft, distended. Absent: rigid Extremities exam: Present: full ROM, normal capillary refill. Absent: te nderness, pedal edema, joint swelling, calf tenderness Back exam: Present: normal inspection, full ROM, tenderness (Lumbar ), paraspinal tenderness. Absent: CVA tenderness (R), CVA tenderness (L) (Lumbar), rash noted Neurological exam: Present: alert, oriented X3 Psychiatric exam: Present: anxious Skin exam: Present: warm, dry, intact, pallor. Absent: rash, cyanosis, diaphoretic, petechiae <Titus Delatorre - Last Filed: 05/08/21 23:10> Course <Donato Bird - Last Filed: 05/08/21 22:58> Vital Signs 05/08/21 05/08/21 05/08/21 19:15 19:23 19:27 Temperature 97.2 F L Pulse Rate 91 Pulse Rate [ 76 Manager [place] ] Respiratory 24 26 H Rate Blood Pressure 170/60 O2 Sat by Pulse 98 Oximetry - Reevaluation(s) Reevaluation #1: 05/08/21 22:58 I was asked to enter replacement ordered, no other care involvement (Donato Bird) EKG Findings - EKG Results: EKG: sinus rhythm (Ventricular rate 88, RI interval 0.170, QRS 0.100, QTC 0.491) <Titus Delatorre - Last Filed: 05/08/21 23:10> Medical Decision Making - Lab Data Result diagrams: 05/08/21 19:43 05/08/21 19:43 <Donato Bird - Last Filed: 05/08/21 22:58> - Lab Data Result diagrams: 05/08/21 19:43 05/08/21 19:43 <Titus Delatorre - Last Filed: 05/08/21 23:10> - Medical Decision Making His hemoglobin is 7.5. Patient's white blood cell count is 13, 2 days ago he was 9.7. His lung sounds are coarse bilaterally. CXR shows bilateral infiltrates with right pleural effusion. CT of the abdomen shows mild to moderate airspace opacities in the right pleural effusion consistent with multifocal pneumonia. Antibiotics were started in the emergency room. There is an indeterminate 1.4 cm right renal lesion. There is also a 5 mm right sacral focal sclerotic lesion that may represent a bone island in the absence of known malignancy. Troponin is negative at 0.012, EKG is unchanged from 05/06/2021 (Titus Delatorre) - Lab Data Lab Results 05/08/21 05/08/21 05/08/21 Range/Units 19:43 19:43 19:43 WBC 13.0 H (3.8-10.6) k/uL RBC 2.45 L (4.30-5.90) m/uL Hgb 7.5 L (13.0-17.5) gm/dL Hct 24.8 L (39.0-53.0) % MCV 100.9 H (80.0-100.0) fL MCH 30.5 (25.0-35.0) pg MCHC 30.2 L (31.0-37.0) g/dL RDW 18.3 H (11.5-15.5) % Plt Count 402 (150-450) k/uL MPV 8.3 Neutrophils % 89 % Lymphocytes % 5 % Monocytes % 4 % Eosinophils % 1 % Basophils % 0 % Neutrophils # 11.6 H (1.3-7.7) k/uL Lymphocytes # 0.6 L (1.0-4.8) k/uL Monocytes # 0.6 (0-1.0) k/uL Eosinophils # 0.1 (0-0.7) k/uL Basophils # 0.0 (0-0.2) k/uL Hypochromasia Marked Anisocytosis Slight Macrocytosis Moderate PT 9.9 (9.0-12.0) sec INR 0.9 (<1.2) APTT 22.2 (22.0-30.0) sec Sodium 135 L (137-145) mmol/L Potassium 3.7 (3.5-5.1) mmol/L Chloride 100 (98-107) mmol/L Carbon Dioxide 24 (22-30) mmol/L Anion Gap 11 mmol/L BUN 19 (9-20) mg/dL Creatinine 1.92 H (0.66-1.25) mg/dL Est GFR (CKD-EPI)AfAm 39 (>60 ml/min/1.73 sqM) Est GFR (CKD-EPI)NonAf 34 (>60 ml/min/1.73 sqM) Glucose 226 H (74-99) mg/dL Calcium 9.5 (8.4-10.2) mg/dL Magnesium 1.8 (1.6-2.3) mg/dL Total Bilirubin 0.4 (0.2-1.3) mg/dL AST 25 (17-59) U/L ALT 17 (4-49) U/L Alkaline Phosphatase 130 H (38-126) U/L Troponin I (0.000-0.034) ng/mL Total Protein 6.4 (6.3-8.2) g/dL Albumin 3.5 (3.5-5.0) g/dL Coronavirus (PCR) (Not Detectd) 05/08/21 05/08/21 Range/Units 19:43 20:45 WBC (3.8-10.6) k/uL RBC (4.30-5.90) m/uL Hgb (13.0-17.5) gm/dL Hct (39.0-53.0) % MCV (80.0-100.0) fL MCH (25.0-35.0) pg MCHC (31.0-37.0) g/dL RDW (11.5-15.5) % Plt Count (150-450) k/uL MPV Neutrophils % % Lymphocytes % % Monocytes % % Eosinophils % % Basophils % % Neutrophils # (1.3-7.7) k/uL Lymphocytes # (1.0-4.8) k/uL Monocytes # (0-1.0) k/uL Eosinophils # (0-0.7) k/uL Basophils # (0-0.2) k/uL Hypochromasia Anisocytosis Macrocytosis PT (9.0-12.0) sec INR (<1.2) APTT (22.0-30.0) sec Sodium (137-145) mmol/L Potassium (3.5-5.1) mmol/L Chloride (98-107) mmol/L Carbon Dioxide (22-30) mmol/L Anion Gap mmol/L BUN (9-20) mg/dL Creatinine (0.66-1.25) mg/dL Est GFR (CKD-EPI)AfAm (>60 ml/min/1.73 sqM) Est GFR (CKD-EPI)NonAf (>60 ml/min/1.73 sqM) Glucose (74-99) mg/dL Calcium (8.4-10.2) mg/dL Magnesium (1.6-2.3) mg/dL Total Bilirubin (0.2-1.3) mg/dL AST (17-59) U/L ALT (4-49) U/L Alkaline Phosphatase (38-126) U/L Troponin I <0.012 (0.000-0.034) ng/mL Total Protein (6.3-8.2) g/dL Albumin (3.5-5.0) g/dL Coronavirus (PCR) Not Detected (Not Detectd) Disposition <Donato Bird - Last Filed: 05/08/21 22:58> Decision Date: 05/08/21 Decision Time: 22:10 <Titus Delatorre - Last Filed: 05/08/21 23:10> Clinical Impression: Pneumonia, Anemia in chronic kidney disease (CKD), Pleural effusion, right Disposition: ADMITTED IP TO THIS HOSP
[2021-05-08 19:49] LABS: Anisocytosis Slight; Basophils % (A) 0 %; Eosinophils # (A) 0.1 k/uL (0-0.7); Eosinophils % (A) 1 %; HCT 24.8 % (39.0-53.0); HGB 7.5 gm/dL (13.0-17.5); Hypochromasia Marked; Lymphocytes # (A) 0.6 k/uL (1.0-4.8); Lymphocytes % (A) 5 %; MCH 30.5 pg (25.0-35.0); MCHC 30.2 g/dL (31.0-37.0); MCV 100.9 fL (80.0-100.0); Macrocytosis Moderate; Mean Platelet Volume 8.3; Monocytes # (A) 0.6 k/uL (0-1.0); Monocytes % (A) 4 %; Neutrophils # (A) 11.6 k/uL (1.3-7.7); Neutrophils % (A) 89 %; Platelet Count 402 k/uL (150-450); RBC 2.45 m/uL (4.30-5.90); RDW 18.3 % (11.5-15.5)
[2021-05-08] MEDS ORDERED: LORazepam 2 MG/ML INJ IV STA (19:50)
[2021-05-08 20:09] LABS: INR 0.9 (<1.2); Partial Thromboplastin Time 22.2 sec (22.0-30.0); Prothrombin Time 9.9 sec (9.0-12.0)
[2021-05-08 20:13] LABS: Albumin 3.5 g/dL (3.5-5.0); Calcium 9.5 mg/dL (8.4-10.2); Magnesium 1.8 mg/dL (1.6-2.3); Total Bilirubin 0.4 mg/dL (0.2-1.3); Total Protein 6.4 g/dL (6.3-8.2)
[2021-05-08 20:49] LABS: Potassium 3.7 mmol/L (3.5-5.1)
--- NOTE | 2021-05-08 21:20 | CT ---
EXAMINATION TYPE: CT abdomen pelvis wo con DATE OF EXAM: 05/08/2021 COMPARISON: None available. HISTORY: MID ABD PAIN CT DLP: 619.4 mGycm Automated exposure control for dose reduction was used. TECHNIQUE: Helical acquisition of images was performed from the lung bases through the pelvis. FINDINGS: LUNG BASES: Moderate right pleural effusion with adjacent right lower lobe consolidation. Also mild t o moderate patchy opacities in the imaged bilateral lower lobes, right middle lobe and lingula. LIVER/GB: No acute abnormality is appreciated. Cholecystectomy. PANCREAS: No significant abnormality is seen. SPLEEN: No significant abnormality is seen. ADRENALS: No significant abnormality is seen. KIDNEYS: No hydronephrosis or nephrolithiasis. Indeterminate 1.4 cm mildly hyperattenuating, right up per pole renal exophytic lesion. FREE AIR: No free air is visualized RETROPERITONEAL ADENOPATHY: None visualized REPRODUCTIVE ORGANS: No significant abnormality is seen URINARY BLADDER: No significant abnormality is seen. PELVIC ADENOPATHY: None visualized. OSSEOUS STRUCTURES: No acute abnormality is seen. Nonspecific 5 mm right sacral alar focal sclerotic lesion, may represent bone island in the absence of known malignancy. BOWEL: No significant abnormality is seen. OTHER: Advanced atherosclerotic disease. IMPRESSION: MILD TO MODERATE AIRSPACE OPACITIES WITH MODERATE RIGHT PLEURAL EFFUSION. CORRELATE FOR MULTIFOCAL PN EUMONIA VERSUS PULMONARY EDEMA. INDETERMINATE 1.4 CM RIGHT RENAL LESION. Recommend follow-up and/ultrasound correlation. Otherwise no acute abnormality of the abdomen/pelvis.
--- NOTE | 2021-05-08 21:26 | XR ---
EXAMINATION TYPE: XR chest 2V DATE OF EXAM: 05/08/2021 COMPARISON: 05/06/2021. HISTORY: Pneumonia. TECHNIQUE: Frontal and lateral views of the chest are obtained. FINDINGS: There is moderate perihilar and bibasilar opacities with accompanying moderate right pleur al effusion. No pneumothorax. The right IJ port catheter remains in place. The cardiac silhouette si ze is enlarged. The osseous structures are intact. IMPRESSION: Bilateral infiltrates with small right pleural effusion and component of interstitial alvin ma in the appropriate clinical setting.
[2021-05-08] MEDS ORDERED: AZITHROMYCIN 500 MG in SODIUM CHLORIDE 0.9% 250 ML IVPB STA (22:03)
[2021-05-08] MEDS ORDERED: cefTRIAXone IN SWFI 1,000 MG/10 ML SYRINGE IVP STA (22:03)
[2021-05-08] MEDS ORDERED: NALOXONE 0.4 MG/ML 1 ML VIAL IV PRN (22:10)
[2021-05-08] MEDS ORDERED: ACETAMINOPHEN TAB 325 MG TAB PO PRN (22:10)
[2021-05-09] MEDS ORDERED: LORazepam 2 MG/ML INJ IV STA (01:57)
[2021-05-09 02:53] LABS: African American GFR (CKD) 32 (>60 ml/min/1.73 sqM); Anion Gap 12 mmol/L; Blood Urea Nitrogen 23 mg/dL (9-20); Carbon Dioxide 22 mmol/L (22-30); Chloride 102 mmol/L (98-107); Glucose 258 mg/dL (74-99); Non-African American GFR(CKD) 28 (>60 ml/min/1.73 sqM); Potassium 3.6 mmol/L (3.5-5.1); Sodium 136 mmol/L (137-145)
[2021-05-09 03:20] LABS: Anisocytosis Slight; HCT 26.2 % (39.0-53.0); HGB 7.8 gm/dL (13.0-17.5); Hypochromasia Marked; MCH 30.7 pg (25.0-35.0); MCHC 29.9 g/dL (31.0-37.0); MCV 102.6 fL (80.0-100.0); Macrocytosis Moderate; Mean Platelet Volume 8.4; Platelet Count 534 k/uL (150-450); Poikilocytosis Slight; RBC 2.56 m/uL (4.30-5.90); RDW 18.6 % (11.5-15.5); WBC 12.2 k/uL (3.8-10.6)
[2021-05-09] MEDS ORDERED: LIDOCAINE-PRILOCAINE 2.5-2.5% CREAM 5 GM TUBE TOPICAL PRN (09:22)
[2021-05-09] MEDS ORDERED: ONDANSETRON 4 MG TAB PO PRN (09:22)
[2021-05-09] MEDS ORDERED: MELATONIN 5 MG TABLET PO PRN (09:22)
[2021-05-09] MEDS ORDERED: NITROGLYCERIN SL TABS 0.4 MG TAB SUBLINGUAL PRN (09:22)
[2021-05-09] MEDS ORDERED: SENNOSIDES-DOCUSATE SODIUM 1 EACH TAB PO PRN (09:22)
[2021-05-09 10:11] LABS: Glucose,Whole Blood 174 mg/dL (75-99)
--- NOTE | 2021-05-09 10:18 | P.HPIM ---
History of Present Illness Patient is a 69-year-old male came in with complains of shortness of breath and cough without any significant sputum production. Patient is more dialysis dependent and patient did undergo hemodialysis yesterday patient is usual sche dule is Saturday hemodialysis. Patient had a chest x-ray and a CT of the chest with chest x-ray consistent with CHF CT of the chest showed CHF with some right sided pleural effusion although there is mild a bronchogram in the right lung. Patient does have leukocytosis doesn't have any fever. Patient was comparing of chest pain pressure-like sensation in the retrosternal area nonradiating unable to obtain much of the history as patient is wearing BiPAP when I evaluated the patient. Patient was also having nausea patient does feel bit better compared to yesterday. Patient barely urinates and does take oral Lasix at home. REVIEW OF SYSTEMS: All other review of systems is negative except those mentioned above review of systems is bit limited because of her his BiPAP situation PHYSICAL EXAMINATION: GENERAL: The patient is alert and oriented x3, not in any acute distress. Well developed, well nourished. She is wearing BiPAP HEENT: Pupils are round and equally reacting to light. EOMI. No scleral icterus. No conjunctival pallor. Normocephalic, atraumatic. No pharyngeal erythema. No thyromegaly. CARDIOVASCULAR: S1 and S2 present. No murmurs, rubs, or gallops. PULMONARY: Chest is clear to auscultation, no wheezing or crackles. ABDOMEN: Soft, nontender, nondistended, normoactive bowel sounds. No palpable organomegaly. MUSCULOSKELETAL: No joint swelling or deformity. EXTREMITIES: No cyanosis, clubbing, or pedal edema. NEUROLOGICAL: Gross neurological examination did not reveal any focal deficits. SKIN: No rashes. Assessment and plan -Shadows of breath, acute hypoxic respiratory failure: Secondary to pulmonary edema, chronic diastolic dysfunction with acute exacerbation patient will be continued on IV Lasix patient may need additional letter hemodialysis session I cannot completely rule out pneumonia because of which I'll start him on a short course of antibiotics considering is a bronchogram which was minimal on the computed tomography scan. -End-stage renal disease dialysis dependent with Saturday schedule -Type 2 diabetes mellitus uncontrolled elevated blood sugars patient will be resumed on long-acting insulin hold off on by mouth hypoglycemic agents patient will be on sliding scale insulin -Can start failure chronic diastolic dysfunction with acute exacerbation -Hypertension -chest pressure like sensation: Cardiology will be consulted patient has mildly elevated troponins these are secondary to end-stage renal disease rather than acute myocardial infarction my suspicion is low for acute [place] considering his iritis Consulting cardiology -Gastroesophageal reflux disease -Hypertension next and-hyperlipidemia -PTSD -Peripheral vascular disease -Restless leg syndrome DVT prophylaxis: Past Medical History Past Medical History: Coronary Artery Disease (CAD), Chest Pain / Angina, COPD, Diabetes Mellitus, GERD/Reflux, GI Bleed, Hyperlipidemia, Hypertension, Pneumonia, Renal Disease, Vascular Disorder Additional Past Medical History / Comment(s): IDDM type II, lower GI bleed, benign colon polyps, spouse states micro bleeds in intestine are suspected, abdominal distention comes and goes which is nearly daily, partial SBO, chronic renal disease stage IV, iron anemia with iron transfusions (recent R upper chest mediport for infusions), PVD, stable lung nodules, chronic low back pain with bilateral sciatica, RLS, vertigo, insomnia, past agent orange exposure. Last Myocardial Infarction Date:: 03/2020 History of Any Multi-Drug Resistant Organisms: None Reported Past Surgical History: Cholecystectomy, Heart Catheterization Additional Past Surgical History / Comment(s): 03/25/20 R sublclavian mediport, R carotid stent done in [place], EGD/colonoscopyDecember 2016, endoscopic capsule, fx lt wrist -sx re-set, aortagram, bilateral leg alireza scularizations/stents Past Anesthesia/Blood Transfusion Reactions: No Reported Reaction Additional Past Anesthesia/Blood Transfusion Reaction / Comment(s): Pt has had blood transfusion without reaction. Date of Last Stent Placement:: 04/27/20 Past Psychological History: Depression, PTSD Additional Psychological History / Comment(s): Pt resides with his spouse and their 2 dogs. Pt uses a cane to ambulate. He has a mobility scooter which he uses prn. He does not drive, his spouse drives. Pt served in the [employer] for 2 tours in [place]. Spouse states pt and herself are being trained to perform home dialysis. Smoking Status: Current every day smoker Past Alcohol Use History: None Reported Additional Past Alcohol Use History / Comment(s): Pt started smoking in 1965 and is a 1 ppd smoker. Past Drug Use History: None Reported Additional Drug Use History / Comment(s): Pt states he takes a couple puffs from a marijuana joint occasionally - Past Family History Father History Unknown: Yes Mother Family Medical History: Cancer Additional Family Medical History / Comment(s): Mother from metastatic cancer pelvic origin. Medications and Allergies Home Medications Medication Instructions Recorded Confirmed Type Ergocalciferol (Vitamin D2) 50,000 unit PO Q14D 07/18/17 05/08/21 History [Vitamin D2] Aspirin EC [Ecotrin Low Dose] 81 mg PO HS 02/10/18 05/08/21 History Cyanocobalamin [Vitamin B-12] 1,000 mcg PO DAILY 09/23/18 05/08/21 History glipiZIDE [Glucotrol] 5 mg PO BID 05/22/19 05/08/21 History Isosorbide Mononitrate ER [Imdur] 60 mg PO BID #60 tab.er.24h 04/21/20 05/08/21 Rx DULoxetine HCL [Cymbalta] 20 mg PO DAILY 10/27/20 05/08/21 History Folic Acid-Vit B Complex-Vit C 1 cap PO DAILY 12/19/20 05/08/21 History [Nephrocaps] Melatonin 5 mg PO HS 12/19/20 05/08/21 History Sennosides-Docusate Sodium 2 tab PO TID PRN 12/31/20 05/08/21 History [Senokot-S] Gabapentin [Neurontin] 100 mg PO TID 01/23/21 05/08/21 History Loratadine 10 mg PO DAILY 01/23/21 05/08/21 History Nitroglycerin Sl Tabs [Nitrostat] 0.4 mg SL Q5M PRN 01/23/21 05/08/21 History rOPINIRole HCL [Requip] 0.5 mg PO TID 01/23/21 05/08/21 History Budesonide-Formot 160-4.5 Mcg 2 puff INHALATION RT-BID #1 inhaler 02/01/21 05/08/21 Rx [Symbicort 160-4.5 Mcg Inhaler] Insulin Glargine [Lantus Vial] 20 unit SQ HS #0 02/02/21 05/08/21 Rx Furosemide [Lasix] 80 mg PO DAILY 02/17/21 05/08/21 History Lidocaine-Prilocaine Cream [Emla 1 applic TOPICAL DIRECTED PRN 02/17/21 05/08/21 History Cream 2.5%/2.5%] Omeprazole [PriLOSEC] 40 mg PO HS #0 02/18/21 05/08/21 Rx Clopidogrel [Plavix] 75 mg PO DAILY #30 tab 04/12/21 05/08/21 Rx Metoprolol Tartrate [Lopressor] 25 mg PO BID #60 tab 04/12/21 05/08/21 Rx amLODIPine [Norvasc] 10 mg PO DAILY #30 tab 04/12/21 05/08/21 Rx Atorvastatin [Lipitor] 20 mg PO HS 05/08/21 05/08/21 History Ondansetron [Zofran] 4 mg PO DAILY PRN 05/08/21 05/08/21 History Allergies Allergy/AdvReac Type Severity Reaction Status Date / Time Iodinated Contrast Media AdvReac CAN'T Verified 05/08/21 23:04 TAKE, RENAL DISEASE Iodine and Iodide Containing AdvReac CAN'T Verified 05/08/21 23:04 Produc TAKE, RENAL DISEASE Physical Exam Vitals: Vital Signs Temp Pulse Pulse Resp BP BP Pulse Ox 05/09/21 08:35 97.1 F L 62 15 135/54 96 05/09/21 06:00 70 18 133/57 100 05/09/21 05:00 71 18 133/49 98 05/09/21 03:00 64 18 125/57 100 05/09/21 02:29 79 20 133/57 96 05/09/21 02:14 82 24 150/74 95 05/09/21 02:04 134 H 38 H 194/81 96 05/09/21 01:46 138 H 38 H 05/09/21 01:18 92 L 05/09/21 01:17 84 16 129/51 86 L 05/08/21 19:27 26 H 05/08/21 19:23 76 05/08/21 19:15 97.2 F L 91 24 170/60 98 Intake and Output 05/08/21 05/09/21 05/09/21 22:59 06:59 14:59 Other: Voiding Method Urinal Weight 95.254 kg 95.254 kg Results CBC & Chem 7: 05/09/21 02:29 05/09/21 02:29 Labs: Abnormal Lab Results - Last 24 Hours (Table) 05/08/21 05/08/21 05/09/21 Range/Units 19:43 19:43 02:29 WBC 13.0 H 12.2 H (3.8-10.6) k/uL RBC 2.45 L 2.56 L (4.30-5.90) m/uL Hgb 7.5 L 7.8 L (13.0-17.5) gm/dL Hct 24.8 L 26.2 L (39.0-53.0) % MCV 100.9 H 102.6 H (80.0-100.0) fL MCHC 30.2 L 29.9 L (31.0-37.0) g/dL RDW 18.3 H 18.6 H (11.5-15.5) % Plt Count 534 H (150-450) k/uL Neutrophils # 11.6 H (1.3-7.7) k/uL Lymphocytes # 0.6 L (1.0-4.8) k/uL Sodium 135 L (137-145) mmol/L BUN (9-20) mg/dL Creatinine 1.92 H (0.66-1.25) mg/dL Glucose 226 H (74-99) mg/dL POC Glucose (mg/dL) (75-99) mg/dL Alkaline Phosphatase 130 H (38-126) U/L 05/09/21 05/09/21 Range/Units 02:29 10:08 WBC (3.8-10.6) k/uL RBC (4.30-5.90) m/uL Hgb (13.0-17.5) gm/dL Hct (39.0-53.0) % MCV (80.0-100.0) fL MCHC (31.0-37.0) g/dL RDW (11.5-15.5) % Plt Count (150-450) k/uL Neutrophils # (1.3-7.7) k/uL Lymphocytes # (1.0-4.8) k/uL Sodium 136 L (137-145) mmol/L BUN 23 H (9-20) mg/dL Creatinine 2.25 H (0.66-1.25) mg/dL Glucose 258 H (74-99) mg/dL POC Glucose (mg/dL) 174 H (75-99) mg/dL Alkaline Phosphatase (38-126) U/L Thrombosis Risk Factor Assmnt - Choose All That Apply Each Factor Represents 1 point: Abnormal pulmonary function (COPD), Obesity (BMI >25) Each Risk Factor Represents 2 Points: Age 61-74 years Thrombosis Risk Factor Assessment Total Risk Factor Score: 4 Thrombosis Risk Factor Assessment Level: Moderate Risk
[2021-05-09] MEDS: DULoxetine HCL 20 MG CAPSULE.DR PO SCH (10:19)
[2021-05-09] MEDS: FUROSEMIDE 10 MG/ML 10 ML VIAL IV SCH ×2 (10:20→20:09)
[2021-05-09] MEDS: METOPROLOL TARTRATE 25 MG TAB PO SCH ×2 (10:20→20:09)
[2021-05-09 12:13] LABS: Glucose,Whole Blood 171 mg/dL (75-99)
[2021-05-09 17:20] LABS: Glucose,Whole Blood 174 mg/dL (75-99)
[2021-05-09] MEDS: GABAPENTIN 100 MG CAP PO SCH ×2 (18:40→21:14)
[2021-05-09] MEDS: SYMBICORT 160-4.5 MCG INHALER INHALATION SCH (19:09)
--- NOTE | 2021-05-09 19:24 | CONS ---
CONSULTATION REASON FOR CONSULT: End-stage renal disease. HISTORY OF PRESENT ILLNESS: The patient is a 71-year-old male who has end-stage renal disease maintained on hemodialysis on a Saturday, Saturday, Saturday schedule. The patient was admitted to the hospital with complaints of shortness of breath. He denied any cough. No history of fevers, nausea, vomiting, abdominal pain. His chest x-ray shows evidence of pulmonary vascular congestion. The patient states he did not miss any of his outpatient treatments. PAST MEDICAL HISTORY: Coronary artery disease, COPD, type 2 diabetes, GI bleed, gastroesophageal reflux disease, hypertension, hyperlipidemia, history of colon polyps, CKD mineral bone disorder, peripheral vascular disease, history of lung nodules which are stable, chronic back pain, vertigo, insomnia, exposure to [place]. Depression and posttraumatic stress disorder. PAST SURGICAL HISTORY: Cholecystectomy, cardiac catheterization, carotid stent placement, EGD, colonoscopy, AV fistula, revascularization bilateral lower extremities, surgery for fracture left wrist. SOCIAL HISTORY: Positive for smoking. No history of drug abuse or alcohol abuse. MEDICATIONS: At home prior to admission included: Vitamin D2, aspirin, Glucotrol, Imdur, Cymbalta, Nephrocaps, melatonin, Senokot, Neurontin, loratadine, Nitrostat, Requip, Lasix, Plavix, Lopressor, Norvasc, Lipitor, Zofran. ALLERGIES: INCLUDE IV CONTRAST, IODINE. REVIEW OF SYSTEMS: As per HPI. Other systems negative. EXAMINATION: Comfortable, awake. He is mildly short of breath, currently maintained on BiPAP. Blood pressure was this morning 139/67, heart rate of 71 per minute. Patient is afebrile. Examination of the heart S1, S2. Examination of the lungs, bilateral breath sounds are heard. Abdomen is soft, nontender. Decreased breath sounds at the bases with basal crackles heard. Examination of lower extremities shows no significant edema. FORESTRY ENGINEER exam grossly intact. LAB: Show sodium 136, potassium 3.6, serum creatinine 2.25, hemoglobin 7.8 g/dL. ASSESSMENT: 1. End-stage renal disease, on hemodialysis on a Saturday, Saturday, Saturday schedule. 2. Fluid overload. We will arrange for hemodialysis today. 3. Type 2 diabetes with uncontrolled blood sugars. 4. Gastroesophageal reflux disease. 5. Peripheral vascular disease. 6. Cardiomyopathy, EF 45-50% with mild to moderate mitral stenosis. 7. Coronary artery disease status post acute non ST elevation myocardial infarction in March of 2021 status post cardiac catheterization with plan for aggressive medical therapy. The patient had successful stenting of the mid-right coronary artery. PLAN: Hemodialysis today. UF of about 2-3 L and we will plan for another treatment tomorrow which is the patient's regular day. Resume home medications. May continue with empiric antibiotics. Continue with IV Lasix in the meantime. Thank you for this consultation. We will continue to follow the patient with you during his hospitalization. MMYOJANAL / EMILYN: [id number] /
[2021-05-09 19:34] LABS: Glucose,Whole Blood 184 mg/dL (75-99)
[2021-05-09] MEDS: HEPARIN SODIUM,PORCINE/PF 5,000 UNIT/0.5 ML SYRINGE SQ SCH (20:09)
[2021-05-09] MEDS: INSULIN ASPART (NovoLOG) 100 UNIT/ML VIAL SQ SCH (20:09)
[2021-05-09] MEDS: ISOSORBIDE MONONITRATE ER 60 MG TAB.ER.24H PO SCH (20:09)
[2021-05-09] MEDS ORDERED: PANTOPRAZOLE 40 MG TABLET PO SCH (21:00)
[2021-05-09] MEDS ORDERED: INSULIN DETEMIR (LEVEMIR) 100 UNIT/ML SYR SQ SCH (21:00)
[2021-05-09] MEDS ORDERED: ATORVASTATIN 20 MG TAB PO SCH (21:00)
[2021-05-09] MEDS ORDERED: ASPIRIN 81 MG PO SCH (21:00)
[2021-05-10 05:53] LABS: Glucose,Whole Blood 70 mg/dL (75-99)
[2021-05-10] MEDS: INSULIN ASPART (NovoLOG) 100 UNIT/ML VIAL SQ SCH ×2 (05:56→12:57)
[2021-05-10 06:23] LABS: Glucose,Whole Blood 74 mg/dL (75-99)
[2021-05-10] MEDS ORDERED: glipiZIDE 5 MG TAB PO SCH (07:30)
[2021-05-10] MEDS: SYMBICORT 160-4.5 MCG INHALER INHALATION SCH (08:33)
[2021-05-10] MEDS ORDERED: CLOPIDOGREL 75 MG TAB PO SCH (09:00)
[2021-05-10] MEDS ORDERED: LORATADINE 10 MG TAB PO SCH (09:00)
[2021-05-10] MEDS ORDERED: CYANOCOBALAMIN 500 MCG TAB PO SCH (09:00)
[2021-05-10] MEDS ORDERED: FOLIC ACID-VIT B COMPLEX-VIT C 1 CAP PO SCH (09:00)
[2021-05-10] MEDS: HEPARIN SODIUM,PORCINE/PF 5,000 UNIT/0.5 ML SYRINGE SQ SCH (09:35)
[2021-05-10] MEDS: FUROSEMIDE 10 MG/ML 10 ML VIAL IV SCH (09:35)
[2021-05-10] MEDS: DULoxetine HCL 20 MG CAPSULE.DR PO SCH (09:36)
[2021-05-10] MEDS: ISOSORBIDE MONONITRATE ER 60 MG TAB.ER.24H PO SCH (09:36)
[2021-05-10] MEDS: GABAPENTIN 100 MG CAP PO SCH ×2 (09:36→16:49)
[2021-05-10] MEDS: METOPROLOL TARTRATE 25 MG TAB PO SCH (09:36)
[2021-05-10] MEDS ORDERED: levOCARNitine (WITH SUGAR) 100 MG/ML BOTTLE PO SCH (10:30)
--- NOTE | 2021-05-10 11:43 | P.CRDCN ---
History of Present Illness History of present illness: Saturday after dialysis felt nauseated, he had a full course. then started feeling short of breath and had abdominal pain. also had associated chest pressure exacerbated by deep breathing. HISTORY OF PRESENTING ILLNESS This is a pleasant 71-year-old male past medical history significant for coronary artery disease status post recent PCI to the RCA, end-stage renal disease on hemodialysis, hypertension, dyslipidemia, dyslipidemia and peripheral vascular disease. He follows in the office with Dr. Sims. We have been asked to see in consultation for chest pain. He states Saturday during dialysis after completing his treatment he started feeling nauseated, short of breath, abdominal pain and chest pressure. He states his chest pressure was exacerbated by deep breathing. It was tight across his entire chest intermittently. Apparently yesterday upon arrival he had an extra dialysis with 3 L was removed. Since that time he has had no further symptoms of chest discomfort. He is seen and examined sitting up in the edge of the bed in no acute distress. In March of this year he underwent cardiac catheterization in the setting of a non-ST elevated myocardial infarction and had successful PCI of the RCA per Dr. Stone. Echocardiogram obtained at that time revealed mildly impaired LV systolic function with ejection fraction 45-50%, mild aortic stenosis with a mean gradient of 9.8 mmHg and mild mitral stenosis with a mean gradient of 3.5 mmHg. DIAGNOSTICS EKG reveals sinus rhythm heart rate of 88 with nonspecific abnormalities noted inferiorly/laterally and PVCs.. Telemetry tracings indicate sinus rhythm with no acute arrhythmia. Chest xray bilateral infiltrates with small right pleural effusion and interstitial edema. CT of the abdomen and pelvis reveals mild to moderate airspace opacity is with moderate right pleural effusion, consider multifocal pneumonia, intermediate right renal lesion noted. Laboratory reviewed, WBC 12.2, hemoglobin 7.8, platelets 534, sodium 136, potassium 3.6, creatinine 2.25, magnesium 1.8 and cardiac enzymes negative 2. Current cardiac medications include aspirin 81 mg daily, atorvastatin 20 mg daily, amlodipine 10 mg daily, Plavix 75 mg daily, Lopressor 25 mg twice a day, Lasix 80 mg daily and Imdur 60 mg twice a day. REVIEW OF SYSTEMS At the time of my exam: CONSTITUTIONAL: Denies fever or chills. CARDIOVASCULAR: Denies chest pain, shortness of breath, orthopnea, PND or palpitations. RESPIRATORY: Denies cough. GASTROINTESTINAL: Denies abdominal pain, diarrhea, constipation, nausea or vomiting. MUSCULOSKELETAL: Denies myalgias. NEUROLOGIC: Denies numbness, tingling, headache or weakness. ENDOCRINE: Denies fatigue, weight change, polydipsia or polyurina. GENITOURINARY: Denies burning, hematuria or urgency with micturation. HEMATOLOGIC: Denies history of anemia or bleeding. PHYSICAL EXAMINATION Blood pressure 139/63 heart rate 71 afebrile and maintaining oxygen saturation on nasal cannula. CONSTITUTIONAL: No apparent distress. HEENT: Head is normocephalic. Pupils are equal, round. Sclerae anicteric. Mucous membranes of the mouth are moist. No JVD. No carotid bruit. CHEST EXAMINATION: Bibasilar crackles, no rhonchi or wheezes. No chest wall tenderness is noted on palpation or with deep breathing. HEART EXAMINATION: Regular rate and rhythm. S1, S2 heard. Systolic ejection murmur at the base and apex, no gallops or rub. ABDOMEN: Soft, nontender. EXTREMITIES: 2+ peripheral pulses, no lower extremity edema and no calf tenderness. NEUROLOGIC EXAMINATION: Patient is awake, alert and oriented x3. ASSESSMENT Chest pain secondary to fluid overload End-stage renal disease on hemodialysis Coronary artery disease status post recent PCI Hypertension Dyslipidemia Diabetes mellitus Valvular heart disease PLAN An acute coronary event has been ruled out. Symptoms have resolved after additional hemodialysis yesterday. Continue dual antiplatelet therapy. Obtain limited echo to assess for pericardial effusion. Thank you kindly for this consultation. Nurse Practitioner note has been reviewed, I agree with a documented findings and plan of care. Patient was seen and examined. Past Medical History Past Medical History: Coronary Artery Disease (CAD), Chest Pain / Angina, COPD, Diabetes Mellitus, GERD/Reflux, GI Bleed, Hyperlipidemia, Hypertension, Pneumonia, Renal Disease, Vascular Disorder Additional Past Medical History / Comment(s): IDDM type II, lower GI bleed, benign colon polyps, spouse states micro bleeds in intestine are suspected, abdominal distention comes and goes which is nearly daily, partial SBO, chronic renal disease stage IV, iron anemia with iron transfusions (recent R upper chest mediport for infusions), PVD, stable lung nodules, chronic low back pain with bilateral sciatica, RLS, vertigo, insomnia, past agent orange exposure. Last Myocardial Infarction Date:: 03/2020 History of Any Multi-Drug Resistant Organisms: None Reported Past Surgical History: Cholecystectomy, Heart Catheterization Additional Past Surgical History / Comment(s): 03/25/20 R sublclavian mediport, R carotid stent done in [place], EGD/colonoscopyDecember 2017, endoscopic capsule, fx lt wrist -sx re-set, aortagram, bilateral leg revascularizations/stents Past Anesthesia/Blood Transfusion Reactions: No Reported Reaction Additional Past Anesthesia/Blood Transfusion Reaction / Comment(s): Pt has had blood transfusion without reaction. Date of Last Stent Placement:: 04/27/20 Past Psychological History: Depression, PTSD Additional Psychological History / Comment(s): Pt resides with his spouse and their 2 dogs. Pt uses a cane to ambulate. He has a mobility scooter which he uses prn. He does not drive, his spouse drives. Pt served in the [employer] for 2 tours in [employer]. Spouse states pt and herself are being trained to perform home dialysis. Smoking Status: Current every day smoker Past Alcohol Use History: None Reported Additional Past Alcohol Use History / Comment(s): Pt started smoking in 1965 and is a 1 ppd smoker. Past Drug Use History: None Reported Additional Drug Use History / Comment(s): Pt states he takes a couple puffs from a marijuana joint occasionally - Past Family History Father History Unknown: Yes Mother Family Medical History: Cancer Additional Family Medical History / Comment(s): Mother from metastatic cancer pelvic origin. Medications and Allergies Home Medications Medication Instructions Recorded Confirmed Type Ergocalciferol (Vitamin D2) 50,000 unit PO Q14D 07/18/17 05/08/21 History [Vitamin D2] Aspirin EC [Ecotrin Low Dose] 81 mg PO HS 02/10/18 05/08/21 History Cyanocobalamin [Vitamin B-12] 1,000 mcg PO DAILY 09/23/18 05/08/21 History Isosorbide Mononitrate ER [Imdur] 60 mg PO BID #60 tab.er.24h 04/21/20 05/08/21 Rx DULoxetine HCL [Cymbalta] 20 mg PO DAILY 10/27/20 05/08/21 History Folic Acid-Vit B Complex-Vit C 1 cap PO DAILY 12/19/20 05/08/21 History [Nephrocaps] Melatonin 5 mg PO HS 12/19/20 05/08/21 History Sennosides-Docusate Sodium 2 tab PO TID PRN 12/31/20 05/08/21 History [Senokot-S] Gabapentin [Neurontin] 100 mg PO TID 01/23/21 05/08/21 History Loratadine 10 mg PO DAILY 01/23/21 05/08/21 History Nitroglycerin Sl Tabs [Nitrostat] 0.4 mg SL Q5M PRN 01/23/21 05/08/21 History rOPINIRole HCL [Requip] 0.5 mg PO TID 01/23/21 05/08/21 History Budesonide-Formot 160-4.5 Mcg 2 puff INHALATION RT-BID #1 inhaler 02/01/21 05/08/21 Rx [Symbicort 160-4.5 Mcg Inhaler] Furosemide [Lasix] 80 mg PO DAILY 02/17/21 05/08/21 History Lidocaine-Prilocaine Cream [Emla 1 applic TOPICAL DIRECTED PRN 02/17/21 05/08/21 History Cream 2.5%/2.5%] Omeprazole [PriLOSEC] 40 mg PO HS #0 02/18/21 05/08/21 Rx Clopidogrel [Plavix] 75 mg PO DAILY #30 tab 04/12/21 05/08/21 Rx Metoprolol Tartrate [Lopressor] 25 mg PO BID #60 tab 04/12/21 05/08/21 Rx Atorvastatin [Lipitor] 20 mg PO HS 05/08/21 05/08/21 History Ondansetron [Zofran] 4 mg PO DAILY PRN 05/08/21 05/08/21 History Cefuroxime Axetil [Ceftin] 500 mg PO BID 2 Days #4 tab 05/10/21 Rx Insulin Glargine [Lantus Vial] 20 unit SQ HS #0 05/10/21 05/08/21 Rx amLODIPine [Norvasc] 5 mg PO DAILY #30 tab 05/10/21 05/08/21 Rx Allergies Allergy/AdvReac Type Severity Reaction Status Date / Time Iodinated Contrast Media AdvReac CAN'T Verified 05/08/21 23:04 TAKE, RENAL DISEASE Iodine and Iodide Containing AdvReac CAN'T Verified 05/08/21 23:04 Produc TAKE, RENAL DISEASE Physical Exam Vitals: Vital Signs Temp Pulse Resp BP Pulse Ox 05/10/21 03:27 98.8 F 65 18 130/44 100 05/09/21 23:36 98.4 F 81 18 157/46 98 05/09/21 20:00 98.2 F 71 18 149/66 97 05/09/21 18:33 65 18 142/60 97 05/09/21 17:25 65 18 153/57 94 L 05/09/21 14:35 98.1 F 75 18 141/61 97 05/09/21 11:35 98.0 F 71 19 139/67 97 05/09/21 08:35 97.1 F L 62 15 135/54 96 Intake and Output 05/09/21 05/10/21 05/10/21 22:59 06:59 14:59 Intake Total 100 Output Total 250 100 Balance -250 0 Intake: Oral 100 Output: Urine 250 100 Other: Voiding Method Urinal Urinal # Voids 1 Weight 74.642 kg Results 05/09/21 02:29 05/09/21 02:29 Current Medications Generic Name Dose Route Start Last Admin Trade Name Freq PRN Reason Stop Dose Admin Acetaminophen 650 mg 05/08/21 22:10 Acetaminophen Tab 325 Mg Tab PO Q6HR PRN Mild Pain or Fever > 100.5 Aspirin 81 mg 05/09/21 21:00 05/09/21 20:09 Aspirin 81 Mg PO 81 mg HS GRECIA Administration Atorvastatin Calcium 20 mg 05/09/21 21:00 05/09/21 20:09 Atorvastatin 20 Mg Tab PO 20 mg HS GRECIA Administration Budesonide/Formoterol Fumarate 2 puff 05/09/21 20:00 05/09/21 19:09 Symbicort 160-4.5 Mcg Inhaler INHALATION 2 puff RT-BID GRECIA Administration Clopidogrel Bisulfate 75 mg 05/10/21 09:00 Clopidogrel 75 Mg Tab PO DAILY [facility]CIA Cyanocobalamin 1,000 mcg 05/10/21 09:00 Cyanocobalamin 500 Mcg Tab PO DAILY [facility]CIA Duloxetine HCl 20 mg 05/09/21 09:30 05/09/21 10:19 Duloxetine Hcl 20 Mg Capsule.Dr PO 20 mg DAILY GRECIA Administration Ergocalciferol 1,250 mcg 05/16/21 09:00 Ergocalciferol 1,250 Mcg (50,000 Iu) Capsule PO Q14D [facility]CIA Furosemide 80 mg 05/09/21 09:30 05/09/21 20:09 Furosemide 10 Mg/Ml 10 Ml Vial IV 80 mg Q12HR [facility]CIA Administration Gabapentin 100 mg 05/09/21 16:00 05/09/21 21:14 Gabapentin 100 Mg Cap PO 100 mg TID GRECIA Administration Glipizide 5 mg 05/10/21 07:30 05/10/21 06:25 Glipizide 5 Mg Tab PO Not Given AC-BID [facility] Heparin Sodium (Porcine) 5,000 unit 05/09/21 21:00 05/09/21 20:09 Heparin Sodium,Porcine/Pf 5,000 Unit/0.5 Ml Syringe SQ 5,000 unit Q12HR [facility] Administration Ceftriaxone Sodium 1 gm/ 50 mls @ 100 mls/hr 05/09/21 10:15 05/09/21 10:39 Sodium Chloride IVPB 100 mls/hr Q24HR [facility] Administration Insulin Aspart 0 unit 05/09/21 21:00 05/10/21 05:56 Insulin Aspart (Novolog) 100 Unit/Ml Vial SQ Not Given ACHS [facility] Protocol Insulin Detemir 20 unit 05/09/21 21:00 05/09/21 21:13 Insulin Detemir (Levemir) 100 Unit/Ml Syr SQ 20 unit HS [facility] Administration Isosorbide Mononitrate 60 mg 05/09/21 21:00 05/09/21 20:09 Isosorbide Mononitrate Er 60 Mg Tab.Er.24h PO 60 mg BID [facility] Administration Lidocaine/Prilocaine 1 applic 05/09/21 09:22 Lidocaine-Prilocaine 2.5-2.5% Cream 5 Gm Tube TOPICAL DIRECTED PRN dialysis Protocol Loratadine 10 mg 05/10/21 09:00 Loratadine 10 Mg Tab PO DAILY [facility] Melatonin 5 mg 05/09/21 09:22 Melatonin 5 Mg Tablet PO HS PRN Insomnia Metoprolol Tartrate 25 mg 05/09/21 09:30 05/09/21 20:09 Metoprolol Tartrate 25 Mg Tab PO 25 mg BID [facility] Administration Multivit/Ca Carb/B Cmplx/FA/Prenat 1 each 05/10/21 09:00 Folic Acid-Vit B Complex-Vit C 1 Cap PO DAILY [facility] Naloxone HCl 0.2 mg 05/08/21 22:10 Naloxone 0.4 Mg/Ml 1 Ml Vial IV Q2M PRN Opioid Reversal Nitroglycerin 0.4 mg 05/09/21 09:22 Nitroglycerin Sl Tabs 0.4 Mg Tab SUBLINGUAL Q5M PRN Chest Pain Ondansetron HCl 4 mg 05/09/21 09:22 Ondansetron 4 Mg Tab PO DAILY PRN Nausea And Vomiting Pantoprazole Sodium 40 mg 05/09/21 21:00 05/09/21 20:10 Pantoprazole 40 Mg Tablet PO 40 mg HS [facility] Administration Ropinirole HCl 0.5 mg 05/08/21 22:45 05/09/21 21:14 Ropinirole Hcl 0.25 Mg Tab PO 0.5 mg TID [facility]CIA Administration Senna/Docusate Sodium 2 each 05/09/21 09:22 Sennosides-Docusate Sodium 1 Each Tab PO TID PRN Constipation Intake and Output 05/09/21 05/10/21 05/10/21 22:59 06:59 14:59 Intake Total 100 Output Total 250 100 Balance -250 0 Intake: Oral 100 Output: Urine 250 100 Other: Voiding Method Urinal Urinal # Voids 1 Weight 74.642 kg 05/09/21 02:29 05/09/21 02:29
[2021-05-10 12:07] LABS: Glucose,Whole Blood 163 mg/dL (75-99)
--- NOTE | 2021-05-10 12:38 | P.DS ---
Providers Date of admission: 05/08/21 22:57 Attending physician: Aida Ndiaye Consults: 05/08/21 22:11 Consult Physician Routine Consulting Provider: Yulissa Ivory Consult Reason/Comments: Chronic kidney disease renal dialysis Do you want consulting provider notified?: Yes, Notify in am 05/09/21 09:54 Consult Physician Routine Consulting Provider: Bobby Stone Consult Reason/Comments: chest pain/pressure Do you want consulting provider notified?: Yes Primary care physician: [facility] Course: Patient is a 69-year-old male came in with complains of shortness of breath and cough without any significant sputum production. Patient is more dialysis dependent and patient did undergo hemodialysis yesterday patient is usual schedule is Saturday hemodialysis. Patient had a chest x-ray and a CT of the chest with chest x-ray consistent with CHF CT of the chest showed CHF with some right sided pleural effusion although there is mild a bronchogram in the right lung. Patient does have leukocytosis doesn't have any fever. Patient was comparing of chest pain pressure-like sensation in the retrosternal area nonradiating unable to obtain much of the history as patient is wearing BiPAP when I evaluated the patient. Patient was also having nausea patient does feel bit better compared to yesterday. Patient barely urinates and does take oral Lasix at home. 05/10/2021 Patient still has leukocytosis which is improving patient up respiratory status improved and patient is presently on results of oxygen which he uses at home but saturating at 100%. Patient is fairly euvolemic patient will be discharged after hemodialysis today patient was cleared by cardiology and nephrology. PHYSICAL EXAMINATION: GENERAL: The patient is alert and oriented x3, not in any acute distress. Well developed, well nourished. Patient looks much better today HEENT: Pupils are round and equally reacting to light. EOMI. No scleral icterus. No conjunctival pallor. Normocephalic, atraumatic. No pharyngeal erythema. No thyromegaly. CARDIOVASCULAR: S1 and S2 present. No murmurs, rubs, or gallops. PULMONARY: Chest is clear to auscultation, no wheezing or crackles. ABDOMEN: Soft, nontender, nondistended, normoactive bowel sounds. No palpable organomegaly. MUSCULOSKELETAL: No joint swelling or deformity. EXTREMITIES: No cyanosis, clubbing, or pedal edema. NEUROLOGICAL: Gross neurological examination did not reveal any focal deficits. SKIN: No rashes. Assessment and plan -Shortness of breath, acute hypoxic respiratory failure: Secondary to pulmonary edema, chronic diastolic dysfunction with acute exacerbation patient will be continued on IV Lasix patient may need additional letter hemodialysis session I cannot completely rule out pneumonia because of which patient will be discharged on short course of antibiotics considering is a bronchogram which was minimal on the computed tomography scan. -End-stage renal disease dialysis dependent with Saturday schedule -Type 2 diabetes mellitus uncontrolled elevated blood sugars patient will be resumed on long-acting insulin hold off on by mouth hypoglycemic agents patient will be on sliding scale insulin -Congestive heart failure chronic diastolic dysfunction with acute exacerbation -Hypertension -chest pressure like sensation: Cardiology will be consulted patient has mildly elevated troponins these are secondary to end-stage renal disease rather than acute myocardial infarction my suspicion is low for acute [place] is low and cardiology valid the patient over the is being planned at this time -Gastroesophageal reflux disease -Hypertension next and-hyperlipidemia -PTSD -Peripheral vascular disease -Restless leg syndrome Plan - Discharge Summary Discharge Rx Participant: No New Discharge Prescriptions: New Cefuroxime Axetil [Ceftin] 500 mg PO BID 2 Days #4 tab Continue Ergocalciferol (Vitamin D2) [Vitamin D2] 50,000 unit PO Q14D Aspirin EC [Ecotrin Low Dose] 81 mg PO HS Cyanocobalamin [Vitamin B-12] 1,000 mcg PO DAILY Isosorbide Mononitrate ER [Imdur] 60 mg PO BID #60 tab.er.24h DULoxetine HCL [Cymbalta] 20 mg PO DAILY Melatonin 5 mg PO HS Folic Acid-Vit B Complex-Vit C [Nephrocaps] 1 cap PO DAILY Sennosides-Docusate Sodium [Senokot-S] 2 tab PO TID PRN PRN Reason: Constipation Nitroglycerin Sl Tabs [Nitrostat] 0.4 mg SL Q5M PRN PRN Reason: Chest Pain Gabapentin [Neurontin] 100 mg PO TID Furosemide [Lasix] 80 mg PO DAILY Insulin Glargine [Lantus Vial] 20 unit SQ HS #0 rOPINIRole HCL [Requip] 0.5 mg PO TID Loratadine 10 mg PO DAILY Budesonide-Formot 160-4.5 Mcg [Symbicort 160-4.5 Mcg Inhaler] 2 puff INHALATION RT-BID #1 inhaler Lidocaine-Prilocaine Cream [Emla Cream 2.5%/2.5%] 1 applic TOPICAL DIRECTED PRN PRN Reason: dialysis Omeprazole [PriLOSEC] 40 mg PO HS #0 Metoprolol Tartrate [Lopressor] 25 mg PO BID #60 tab Clopidogrel [Plavix] 75 mg PO DAILY #30 tab Atorvastatin [Lipitor] 20 mg PO HS Ondansetron [Zofran] 4 mg PO DAILY PRN PRN Reason: Nausea And Vomiting Changed amLODIPine [Norvasc] 5 mg PO DAILY #30 tab Discontinued glipiZIDE [Glucotrol] 5 mg PO BID Discharge Medication List Ergocalciferol (Vitamin D2) [Vitamin D2] 50,000 unit PO Q14D 07/18/17 [History] Aspirin EC [Ecotrin Low Dose] 81 mg PO HS 02/10/18 [History] Cyanocobalamin [Vitamin B-12] 1,000 mcg PO DAILY 09/23/18 [History] Isosorbide Mononitrate ER [Imdur] 60 mg PO BID #60 tab.er.24h 04/21/20 [Rx] DULoxetine HCL [Cymbalta] 20 mg PO DAILY 10/27/20 [History] Folic Acid-Vit B Complex-Vit C [Nephrocaps] 1 cap PO DAILY 12/19/20 [History] Melatonin 5 mg PO HS 12/19/20 [History] Sennosides-Docusate Sodium [Senokot-S] 2 tab PO TID PRN 12/31/20 [History] Gabapentin [Neurontin] 100 mg PO TID 01/23/21 [History] Loratadine 10 mg PO DAILY 01/23/21 [History] Nitroglycerin Sl Tabs [Nitrostat] 0.4 mg SL Q5M PRN 01/23/21 [History] rOPINIRole HCL [Requip] 0.5 mg PO TID 01/23/21 [History] Budesonide-Formot 160-4.5 Mcg [Symbicort 160-4.5 Mcg Inhaler] 2 puff INHALATION RT-BID #1 inhaler 02/01/21 [Rx] Furosemide [Lasix] 80 mg PO DAILY 02/17/21 [History] Lidocaine-Prilocaine Cream [Emla Cream 2.5%/2.5%] 1 applic TOPICAL DIRECTED PRN 02/17/21 [History] Omeprazole [PriLOSEC] 40 mg PO HS #0 02/18/21 [Rx] Clopidogrel [Plavix] 75 mg PO DAILY #30 tab 04/12/21 [Rx] Metoprolol Tartrate [Lopressor] 25 mg PO BID #60 tab 04/12/21 [Rx] Atorvastatin [Lipitor] 20 mg PO HS 05/08/21 [History] Ondansetron [Zofran] 4 mg PO DAILY PRN 05/08/21 [History] Cefuroxime Axetil [Ceftin] 500 mg PO BID 2 Days #4 tab 05/10/21 [Rx] Insulin Glargine [Lantus Vial] 20 unit SQ HS #0 05/10/21 [Rx] amLODIPine [Norvasc] 5 mg PO DAILY #30 tab 05/10/21 [Rx] Follow up Appointment(s)/Referral(s): [facility],Clinic [Primary Care Provider] - 3 Days Activity/Diet/Wound Care/Special Instructions: PA to set up Homecare. Discharge Disposition: HOME SELF-CARE
[2021-05-10 14:34] LABS: Calcium 8.8 mg/dL (8.4-10.2); Potassium 3.7 mmol/L (3.5-5.1)
[2021-05-10 16:32] VITALS: RESP 16
[2021-05-10 16:42] LABS: Glucose,Whole Blood 112 mg/dL (75-99)
[2021-05-10 17:17] VITALS: BP 121/73; PULSE 70; TEMP 96.4
--- NOTE | 2021-05-10 20:24 | PN ---
PROGRESS NOTE Patient was seen this morning for followup for end-stage renal disease. He was admitted to the hospital with fluid overload. His symptoms significantly improved with ultrafiltration with dialysis. We had about 2 L of ultrafiltration today and yesterday patient had 2.5 L. Overall, he states he is feeling much better. PHYSICAL EXAMINATION: On examination today, blood pressure was 135/63, heart rate 66 per minute. He is afebrile. Examination of the heart S1, S2. Examination of lungs, decreased breath sounds at the bases. No crackles or wheezing is heard. Abdomen is soft, nontender. Examination of lower extremity shows no evidence of edema. [employer] exam grossly intact. LAB: Show sodium 134, potassium 3.7, BUN 31, creatinine 2.94. ASSESSMENT: 1. End-stage renal disease, on hemodialysis on a Saturday, Saturday, Saturday schedule. Patient will be dialyzed today. He had an extra treatment yesterday for volume overload. We will try about 2 L of ultrafiltration. Patient stated that he had cramping yesterday. We can use the levocarnitine to help with the cramps and this should be continued as outpatient as well. 2. Chronic kidney disease, mineral bone disorder. 3. Anemia of chronic disease. Hemoglobin 7.8 g/dL. No active bleeding noted. Maintained on Epogen as outpatient. PLAN: Hemodialysis today. Goal UF of about 2 L. Add levocarnitine which should help with the cramps. The patient's dry weight will be adjusted as outpatient. Can use midodrine to help with ultrafiltration. Blood pressure has not been low at least during his hospitalization. MMODL / IJN: [id number] /
--- NOTE | 2021-05-11 11:31 | ECHOF ---
Referral Reason:Pericardial effusion MEASUREMENTS -------- HEIGHT: 170.2 cm WEIGHT: 74.4 kg BP: FINDINGS -------- Echo done 04/08: limited study for pericardial effusion. There is no pericardial effusion. CONCLUSIONS -------- 1. Echo done 04/08: limited study for pericardial effusion. 2. There is no pericardial effusion. ORTHO/PROSTHETIC AIDE: Kalpana Cole RDCS
[2021-05-16] MEDS ORDERED: ERGOCALCIFEROL 1,250 MCG (50,000 IU) CAPSULE PO SCH (09:00)
== END 2021-05-10 17:10 | disposition home or self-care (01) | DRG 291 ==
LOC: EC 18:45 → 4SSUR 22:57 → UNDOADMOB 22:57 → 4SSUR 22:57 → 3SCARD 05-09 02:04
PROVIDERS: ADMIT Hospitalist; ATTEND Hospitalist
DX: I13.2 Hypertensive heart and chronic kidney disease with heart failure and with stage 5 chronic kidney disease, or end stage renal disease (principal); J18.9 Pneumonia, unspecified organism; J96.01 Acute respiratory failure with hypoxia; N18.6 End stage renal disease; I50.33 Acute on chronic diastolic (congestive) heart failure; J44.0 Chronic obstructive pulmonary disease with (acute) lower respiratory infection; E11.22 Type 2 diabetes mellitus with diabetic chronic kidney disease; I42.9 Cardiomyopathy, unspecified; E11.51 Type 2 diabetes mellitus with diabetic peripheral angiopathy without gangrene; E11.65 Type 2 diabetes mellitus with hyperglycemia; E78.5 Hyperlipidemia, unspecified; F17.200 Nicotine dependence, unspecified, uncomplicated; F32.9 Major depressive disorder, single episode, unspecified; D63.1 Anemia in chronic kidney disease; F43.10 Post-traumatic stress disorder, unspecified; G25.81 Restless legs syndrome; I05.0 Rheumatic mitral stenosis; I25.10 Atherosclerotic heart disease of native coronary artery without angina pectoris; I25.2 Old myocardial infarction; Z79.02 Long term (current) use of antithrombotics/antiplatelets; Z79.4 Long term (current) use of insulin; Z79.51 Long term (current) use of inhaled steroids; Z79.82 Long term (current) use of aspirin; Z79.899 Other long term (current) drug therapy; Z80.9 Family history of malignant neoplasm, unspecified; Z87.19 Personal history of other diseases of the digestive system; Z98.61 Coronary angioplasty status; Z99.2 Dependence on renal dialysis; M89.9 Disorder of bone, unspecified; K21.9 Gastro-esophageal reflux disease without esophagitis
CPT/HCPCS: 36415; 71046; 74176; 80048; 80053; 83735; 84100; 84484; 85025; 85027; 85610; 85730; 87635; 90935; 93005; 93308; 94640; 94660; 96365; 96366; 96367; 96375; 96376; 99285

== ENCOUNTER 2021-05-15 16:12 | Emergency (ER) | payer MEDICARE, OTHER ==
[2021-05-15 18:38] LABS: Appearance,Urine Clear (Clear); Bilirubin,Urine Negative (Negative); Blood,Urine Small (Negative); Color,Urine Yellow; Glucose,Urine (UA) Trace (Negative); Ketones,Urine Negative (Negative); Leukocyte Esterase,Urine Negative (Negative); Mucus,Urine Rare /hpf; Nitrite,Urine Negative (Negative); Protein,Urine 3+ (Negative); RBC,Urine 1 /hpf (0-5); Specific Gravity,Urine 1.013 (1.001-1.035); Squamous Epithelial Cell,Urine <1 /hpf (0-4); Urobilinogen,Urine <2.0 mg/dL (<2.0); WBC,Urine 3 /hpf (0-5)
[2021-05-15 18:55] LABS: Anisocytosis Slight; Basophils % (A) 0 %; Eosinophils # (A) 0.2 k/uL (0-0.7); Eosinophils % (A) 2 %; HCT 25.2 % (39.0-53.0); HGB 8.2 gm/dL (13.0-17.5); Hypochromasia Moderate; Lymphocytes # (A) 0.7 k/uL (1.0-4.8); Lymphocytes % (A) 8 %; MCH 30.9 pg (25.0-35.0); MCHC 32.6 g/dL (31.0-37.0); Mean Platelet Volume 9.6; Monocytes # (A) 0.5 k/uL (0-1.0); Monocytes % (A) 6 %; Neutrophils # (A) 7.2 k/uL (1.3-7.7); Neutrophils % (A) 83 %; Platelet Count 435 k/uL (150-450); Poikilocytosis Slight; RBC 2.66 m/uL (4.30-5.90); WBC 8.7 k/uL (3.8-10.6)
[2021-05-15 19:50] LABS: Albumin 3.2 g/dL (3.5-5.0); Calcium 8.9 mg/dL (8.4-10.2); Potassium 3.7 mmol/L (3.5-5.1); Total Bilirubin 0.3 mg/dL (0.2-1.3)
[2021-05-15 20:03] VITALS: BP 139/61; PULSE 87; RESP 18; TEMP 98.5
--- NOTE | 2021-05-15 20:07 | ED ---
Recheck HPI - General Chief Complaint: Recheck/Abnormal Lab/Rx Stated Complaint: weak Time Seen by Provider: 05/15/21 16:59 Source: patient, RN notes reviewed Mode of arrival: wheelchair Limitations: no limitations - History of Present Illness Initial Comments: Patient is a 71-year-old male that presents emergency department complaining of low hemoglobin. He was sent by his primary care with a prescription for a 1 unit of blood transfusion. Patient is been here several times in the last couple weeks for similar complaints. Patient was otherwise a well-appearing 71-year-old male in no apparent distress or pain. He denied any other issues. He noted that he was mildly fatigue but nothing out of the ordinary for him. He denied chest pain first breath headache nausea vomiting diarrhea constipation fever fatigue chills. - Related Data Home Medications Medication Instructions Recorded Confirmed Ergocalciferol (Vitamin D2) 50,000 unit PO Q14D 07/18/17 05/08/21 [Vitamin D2] Aspirin EC [Ecotrin Low Dose] 81 mg PO HS 02/10/18 05/08/21 Cyanocobalamin [Vitamin B-12] 1,000 mcg PO DAILY 09/23/18 05/08/21 DULoxetine HCL [Cymbalta] 20 mg PO DAILY 10/27/20 05/08/21 Folic Acid-Vit B Complex-Vit C 1 cap PO DAILY 12/19/20 05/08/21 [Nephrocaps] Melatonin 5 mg PO HS 12/19/20 05/08/21 Sennosides-Docusate Sodium 2 tab PO TID PRN 12/31/20 05/08/21 [Senokot-S] Gabapentin [Neurontin] 100 mg PO TID 01/23/21 05/08/21 Loratadine 10 mg PO DAILY 01/23/21 05/08/21 Nitroglycerin Sl Tabs [Nitrostat] 0.4 mg SL Q5M PRN 01/23/21 05/08/21 rOPINIRole HCL [Requip] 0.5 mg PO TID 01/23/21 05/08/21 Furosemide [Lasix] 80 mg PO DAILY 02/17/21 05/08/21 Lidocaine-Prilocaine Cream [Emla 1 applic TOPICAL DIRECTED PRN 02/17/21 05/08/21 Cream 2.5%/2.5%] Atorvastatin [Lipitor] 20 mg PO HS 05/08/21 05/08/21 Ondansetron [Zofran] 4 mg PO DAILY PRN 05/08/21 05/08/21 Previous Rx's Medication Instructions Recorded Isosorbide Mononitrate ER [Imdur] 60 mg PO BID #60 tab.er.24h 04/21/20 Budesonide-Formot 160-4.5 Mcg 2 puff INHALATION RT-BID #1 inhaler 02/01/21 [Symbicort 160-4.5 Mcg Inhaler] Omeprazole [PriLOSEC] 40 mg PO HS #0 02/18/21 Clopidogrel [Plavix] 75 mg PO DAILY #30 tab 04/12/21 Metoprolol Tartrate [Lopressor] 25 mg PO BID #60 tab 04/12/21 Cefuroxime Axetil [Ceftin] 500 mg PO BID 2 Days #4 tab 05/10/21 Insulin Glargine [Lantus Vial] 20 unit SQ HS #0 05/10/21 amLODIPine [Norvasc] 5 mg PO DAILY #30 tab 05/10/21 Allergies Allergy/AdvReac Type Severity Reaction Status Date / Time Iodinated Contrast Media AdvReac CAN'T Verified 05/15/21 16:54 TAKE, RENAL DISEASE Iodine and Iodide Containing AdvReac CAN'T Verified 05/15/21 16:54 Produc TAKE, RENAL DISEASE Review of Systems ROS Statement: Those systems with pertinent positive or pertinent negative responses have been documented in the HPI. ROS Other: All systems not noted in ROS Statement are negative. Past Medical History Past Medical History: Coronary Artery Disease (CAD), Chest Pain / Angina, COPD, Diabetes Mellitus, GERD/Reflux, GI Bleed, Hyperlipidemia, Hypertension, Pneumonia, Renal Disease, Vascular Disorder Additional Past Medical History / Comment(s): IDDM type II, lower GI bleed, benign colon polyps, spouse states micro bleeds in intestine are suspected, abdominal distention comes and goes which is nearly daily, partial SBO, chronic renal disease stage IV, iron anemia with iron transfusions (recent R upper chest mediport for infusions), PVD, stable lung nodules, chronic low back pain with bilateral sciatica, RLS, vertigo, insomnia, past agent orange exposure. Last Myocardial Infarction Date:: 03/2020 History of Any Multi-Drug Resistant Organisms: None Reported Past Surgical History: Cholecystectomy, Heart Catheterization Additional Past Surgical History / Comment(s): 03/25/20 R sublclavian mediport, R carotid stent done in [place], EGD/colonoscopyDecember 2017, endoscopic capsule, fx lt wrist -sx re-set, aortagram, bilateral leg rev ascularizations/stents Past Anesthesia/Blood Transfusion Reactions: No Reported Reaction Additional Past Anesthesia/Blood Transfusion Reaction / Comment(s): Pt has had blood transfusion without reaction. Date of Last Stent Placement:: 04/27/20 Past Psychological History: Depression, PTSD Smoking Status: Current every day smoker Past Alcohol Use History: None Reported Past Drug Use History: None Reported - Past Family History Father History Unknown: Yes Mother Family Medical History: Cancer Additional Family Medical History / Comment(s): Mother from metastatic cancer pelvic origin. General Exam Limitations: no limitations General appearance: alert, in no apparent distress Head exam: Present: atraumatic, normocephalic, normal inspection Eye exam: Present: normal appearance, PERRL, EOMI. Absent: scleral icterus, conjunctival injection, periorbital swelling ENT exam: Present: normal exam, mucous membranes moist Neck exam: Present: normal inspection Respiratory exam: Present: normal lung sounds bilaterally. Absent: respiratory distress, wheezes, rales, rhonchi, stridor Cardiovascular Exam: Present: regular rate, normal rhythm, normal heart sounds. Absent: systolic murmur, diastolic murmur, rubs, gallop, clicks Extremities exam: Present: normal inspection, full ROM, normal capillary refill. Absent: tenderness, pedal edema, joint swelling, calf tenderness Neurological exam: Present: alert, oriented X3 Psychiatric exam: Present: normal affect, normal mood Skin exam: Present: warm, dry, intact, normal color. Absent: rash Course Vital Signs 05/15/21 05/15/21 05/15/21 16:51 18:33 20:00 Temperature 97.9 F 98.5 F Pulse Rate 81 72 87 Respiratory 16 16 18 Rate Blood Pressure 122/58 170/73 139/61 O2 Sat by Pulse 98 100 100 Oximetry Medical Decision Making - Medical Decision Making 71-year-old male with a prescription was primary care for blood transfusion due to low hemoglobin office. CBC, CMP, type and screen ordered. Hemoglobin was 8.2 on recheck. Emma Perry was consulted from [facility] and noted the patient to discharge home with follow-up to primary care. Case discussed with Dr. Trotter, patient discharge in stable condition. - Lab Data Result diagrams: 05/15/21 18:24 05/15/21 19:15 Lab Results 05/15/21 05/15/21 05/15/21 Range/Units 17:43 18:24 18:24 WBC 8.7 (3.8-10.6) k/uL RBC 2.66 L (4.30-5.90) m/uL Hgb 8.2 L (13.0-17.5) gm/dL Hct 25.2 L (39.0-53.0) % MCV 95.0 D (80.0-100.0) fL MCH 30.9 (25.0-35.0) pg MCHC 32.6 (31.0-37.0) g/dL RDW 17.0 H (11.5-15.5) % Plt Count 435 (150-450) k/uL MPV 9.6 Neutrophils % 83 % Lymphocytes % 8 % Monocytes % 6 % Eosinophils % 2 % Basophils % 0 % Neutrophils # 7.2 (1.3-7.7) k/uL Lymphocytes # 0.7 L (1.0-4.8) k/uL Monocytes # 0.5 (0-1.0) k/uL Eosinophils # 0.2 (0-0.7) k/uL Basophils # 0.0 (0-0.2) k/uL Hypochromasia Moderate Poikilocytosis Slight Anisocytosis Slight Sodium (137-145) mmol/L Potassium (3.5-5.1) mmol/L Chloride (98-107) mmol/L Carbon Dioxide (22-30) mmol/L Anion Gap mmol/L BUN (9-20) mg/dL Creatinine (0.66-1.25) mg/dL Est GFR (CKD-EPI)AfAm (>60 ml/min/1.73 sqM) Est GFR (CKD-EPI)NonAf (>60 ml/min/1.73 sqM) Glucose (74-99) mg/dL Calcium (8.4-10.2) mg/dL Total Bilirubin (0.2-1.3) mg/dL AST (17-59) U/L ALT (4-49) U/L Alkaline Phosphatase (38-126) U/L Total Protein (6.3-8.2) g/dL Albumin (3.5-5.0) g/dL Urine Color Yellow Urine Appearance Clear (Clear) Urine pH 6.0 (5.0-8.0) Ur Specific [place] 1.013 (1.001-1.035) Urine Protein 3+ H (Negative) Urine Glucose (UA) Trace H (Negative) Urine Ketones Negative (Negative) Urine Blood Small H (Negative) Urine Nitrite Negative (Negative) Urine Bilirubin Negative (Negative) Urine Urobilinogen <2.0 (<2.0) mg/dL Ur Leukocyte Esterase Negative (Negative) Urine RBC 1 (0-5) /hpf Urine WBC 3 (0-5) /hpf Ur Squamous Epith Cells <1 (0-4) /hpf Urine Mucus Rare H (None) /hpf Blood Type B Positive Blood Type Recheck B Pos Bld Type Recheck Status No Antibody Screen NEGATIVE Spec Expiration Date 05/18/2021 - 234205/15/21 Range/Units 19:15 WBC (3.8-10.6) k/uL RBC (4.30-5.90) m/uL Hgb (13.0-17.5) gm/dL Hct (39.0-53.0) % MCV (80.0-100.0) fL MCH (25.0-35.0) pg MCHC (31.0-37.0) g/dL RDW (11.5-15.5) % Plt Count (150-450) k/uL MPV Neutrophils % % Lymphocytes % % Monocytes % % Eosinophils % % Basophils % % Neutrophils # (1.3-7.7) k/uL Lymphocytes # (1.0-4.8) k/uL Monocytes # (0-1.0) k/uL Eosinophils # (0-0.7) k/uL Basophils # (0-0.2) k/uL Hypochromasia Poikilocytosis Anisocytosis Sodium 135 L (137-145) mmol/L Potassium 3.7 (3.5-5.1) mmol/L Chloride 98 (98-107) mmol/L Carbon Dioxide 29 (22-30) mmol/L Anion Gap 8 mmol/L BUN 21 H (9-20) mg/dL Creatinine 2.50 H (0.66-1.25) mg/dL Est GFR (CKD-EPI)AfAm 29 (>60 ml/min/1.73 sqM) Est GFR (CKD-EPI)NonAf 25 (>60 ml/min/1.73 sqM) Glucose 132 H (74-99) mg/dL Calcium 8.9 (8.4-10.2) mg/dL Total Bilirubin 0.3 (0.2-1.3) mg/dL AST 16 L (17-59) U/L ALT 9 (4-49) U/L Alkaline Phosphatase 88 (38-126) U/L Total Protein 6.0 L (6.3-8.2) g/dL Albumin 3.2 L (3.5-5.0) g/dL Urine Color Urine Appearance (Clear) Urine pH (5.0-8.0) Ur Specific [place] (1.001-1.035) Urine Protein (Negative) Urine Glucose (UA) (Negative) Urine Ketones (Negative) Urine Blood (Negative) Urine Nitrite (Negative) Urine Bilirubin (Negative) Urine Urobilinogen (<2.0) mg/dL Ur Leukocyte Esterase (Negative) Urine RBC (0-5) /hpf Urine WBC (0-5) /hpf Ur Squamous Epith Cells (0-4) /hpf Urine Mucus (None) /hpf Blood Type Blood Type Recheck Bld Type Recheck Status Antibody Screen Spec Expiration Date Disposition Clinical Impression: Anemia Disposition: HOME SELF-CARE Condition: Stable Instructions (If sedation given, give patient instructions): Iron Deficiency Anemia (ED) Additional Instructions: Please return to the Emergency Department if symptoms worsen or any other concerns. Follow-up primary care 1-2 days. Increase oral fluids. Is patient prescribed a controlled substance at d/c from ED?: No Referrals: [facility],Clinic [Primary Care Provider] - 1-2 days Time of Disposition: 20:07
[2021-05-15] MEDS ORDERED: Acetaminophen-Codeine 300-30mg TAB PO STA (20:08)
== END 2021-05-15 20:28 | disposition home or self-care (01) ==
LOC: EC 16:12
DX: D64.9 Anemia, unspecified (principal); E11.22 Type 2 diabetes mellitus with diabetic chronic kidney disease; I12.9 Hypertensive chronic kidney disease with stage 1 through stage 4 chronic kidney disease, or unspecified chronic kidney disease; N18.4 Chronic kidney disease, stage 4 (severe); E78.5 Hyperlipidemia, unspecified; I25.10 Atherosclerotic heart disease of native coronary artery without angina pectoris; I25.2 Old myocardial infarction; F17.200 Nicotine dependence, unspecified, uncomplicated; Z88.8 Allergy status to other drugs, medicaments and biological substances; Z79.82 Long term (current) use of aspirin; Z79.899 Other long term (current) drug therapy
CPT/HCPCS: 36415; 80053; 81001; 85025; 86850; 86900; 86901; 99284

== ENCOUNTER 2021-05-26 11:04 | Observation (INO) | payer OTHER, MEDICARE ==
[2021-05-26 13:27] LABS: Anisocytosis Slight; Basophils % (A) 0 %; Eosinophils # (A) 0.1 k/uL (0-0.7); Eosinophils % (A) 1 %; HCT 22.8 % (39.0-53.0); Hypochromasia Marked; Lymphocytes # (A) 0.6 k/uL (1.0-4.8); Lymphocytes % (A) 7 %; MCH 29.8 pg (25.0-35.0); MCV 99.3 fL (80.0-100.0); Macrocytosis Slight; Mean Platelet Volume 8.8; Monocytes # (A) 0.4 k/uL (0-1.0); Monocytes % (A) 4 %; Neutrophils # (A) 7.7 k/uL (1.3-7.7); Neutrophils % (A) 86 %; Platelet Count 376 k/uL (150-450); RDW 16.9 % (11.5-15.5)
[2021-05-26 13:42] LABS: HGB 6.8 gm/dL (13.0-17.5)
[2021-05-26 13:44] LABS: Albumin 3.2 g/dL (3.5-5.0); Calcium 8.5 mg/dL (8.4-10.2); Potassium 4.1 mmol/L (3.5-5.1); Total Bilirubin 0.3 mg/dL (0.2-1.3)
[2021-05-26] MEDS ORDERED: NALOXONE 0.4 MG/ML 1 ML VIAL IV PRN (14:24)
[2021-05-26] MEDS ORDERED: HYDROcodone/APAP 5-325MG 1 EACH TAB PO PRN (14:24)
[2021-05-26] MEDS ORDERED: ACETAMINOPHEN TAB 325 MG TAB PO PRN (14:24)
[2021-05-26] MEDS ORDERED: MORPHINE SULFATE 4 MG/ML SYRINGE IVP STA (14:25)
[2021-05-26] MEDS ORDERED: ONDANSETRON 4 MG/2 ML VIAL IVP STA (14:25)
--- NOTE | 2021-05-26 14:25 | ED ---
General Adult HPI - General Chief complaint: Recheck/Abnormal Lab/Rx Stated complaint: abd labs Time Seen by Provider: 05/26/21 12:48 Source: patient, RN notes reviewed Mode of arrival: ambulatory Limitations: no limitations - History of Present Illness Initial comments: this is a 71-year-old male presents emergency Department chief complaint of anemia. Patient received a phone call stating that he needs with hospital centimeters hemoglobin. She has recurrent anemia secondary to chronic kidney disease. Patient missed dialysis today. Patient denies any significant shortness of breath is complaining of some leg pain which is chronic in nature. Patient states he has renal disease secondary to diabetes. - Related Data Home Medications Medication Instructions Recorded Confirmed Ergocalciferol (Vitamin D2) 50,000 unit PO Q14D 07/18/17 05/08/21 [Vitamin D2] Aspirin EC [Ecotrin Low Dose] 81 mg PO HS 02/10/18 05/08/21 Cyanocobalamin [Vitamin B-12] 1,000 mcg PO DAILY 09/23/18 05/08/21 DULoxetine HCL [Cymbalta] 20 mg PO DAILY 10/27/20 05/08/21 Folic Acid-Vit B Complex-Vit C 1 cap PO DAILY 12/19/20 05/08/21 [Nephrocaps] Melatonin 5 mg PO HS 12/19/20 05/08/21 Sennosides-Docusate Sodium 2 tab PO TID PRN 12/31/20 05/08/21 [Senokot-S] Gabapentin [Neurontin] 100 mg PO TID 01/23/21 05/08/21 Loratadine 10 mg PO DAILY 01/23/21 05/08/21 Nitroglycerin Sl Tabs [Nitrostat] 0.4 mg SL Q5M PRN 01/23/21 05/08/21 rOPINIRole HCL [Requip] 0.5 mg PO TID 01/23/21 05/08/21 Furosemide [Lasix] 80 mg PO DAILY 02/17/21 05/08/21 Lidocaine-Prilocaine Cream [Emla 1 applic TOPICAL DIRECTED PRN 02/17/21 05/08/21 Cream 2.5%/2.5%] Atorvastatin [Lipitor] 20 mg PO HS 05/08/21 05/08/21 Ondansetron [Zofran] 4 mg PO DAILY PRN 05/08/21 05/08/21 Previous Rx's Medication Instructions Recorded Isosorbide Mononitrate ER [Imdur] 60 mg PO BID #60 tab.er.24h 04/21/20 Budesonide-Formot 160-4.5 Mcg 2 puff INHALATION RT-BID #1 inhaler 02/01/21 [Symbicort 160-4.5 Mcg Inhaler] Omeprazole [PriLOSEC] 40 mg PO HS #0 02/18/21 Clopidogrel [Plavix] 75 mg PO DAILY #30 tab 04/12/21 Metoprolol Tartrate [Lopressor] 25 mg PO BID #60 tab 04/12/21 Cefuroxime Axetil [Ceftin] 500 mg PO BID 2 Days #4 tab 05/10/21 Insulin Glargine [Lantus Vial] 20 unit SQ HS #0 05/10/21 amLODIPine [Norvasc] 5 mg PO DAILY #30 tab 05/10/21 Allergies Allergy/AdvReac Type Severity Reaction Status Date / Time Iodinated Contrast Media AdvReac CAN'T Verified 05/26/21 11:14 TAKE, RENAL DISEASE Iodine and Iodide Containing AdvReac CAN'T Verified 05/26/21 11:14 Produc TAKE, RENAL DISEASE Review of Systems ROS Statement: Those systems with pertinent positive or pertinent negative responses have been documented in the HPI. ROS Other: All systems not noted in ROS Statement are negative. Past Medical History Past Medical History: Coronary Artery Disease (CAD), Chest Pain / Angina, COPD, Diabetes Mellitus, GERD/Reflux, GI Bleed, Hyperlipidemia, Hypertension, Pneumonia, Renal Disease, Vascular Disorder Additional Past Medical History / Comment(s): IDDM type II, lower GI bleed, benign colon polyps, spouse states micro bleeds in intestine are suspected, abdominal distention comes and goes which is nearly daily, partial SBO, chronic renal disease stage IV, iron anemia with iron transfusions (recent R upper chest mediport for infusions), PVD, stable lung nodules, chronic low back pain with bilateral sciatica, RLS, vertigo, insomnia, past agent orange exposure. Last Myocardial Infarction Date:: 03/2020 History of Any Multi-Drug Resistant Organisms: None Reported Past Surgical History: Cholecystectomy, Heart Catheterization Additional Past Surgical History / Comment(s): 03/25/20 R sublclavian mediport, R carotid stent done in [place], EGD/colonoscopyDecember 2017, endoscopic capsule, fx lt wrist -sx re-set, aortagram, bilateral leg revascularizations/st ents Past Anesthesia/Blood Transfusion Reactions: No Reported Reaction Additional Past Anesthesia/Blood Transfusion Reaction / Comment(s): Pt has had blood transfusion without reaction. Date of Last Stent Placement:: 04/27/20 Past Psychological History: Depression, PTSD Smoking Status: Current every day smoker Past Alcohol Use History: None Reported Past Drug Use History: None Reported - Past Family History Father History Unknown: Yes Mother Family Medical History: Cancer Additional Family Medical History / Comment(s): Mother from metastatic cancer pelvic origin. General Exam Limitations: no limitations General appearance: alert, in no apparent distress Head exam: Present: atraumatic, normocephalic, normal inspection Respiratory exam: Present: normal lung sounds bilaterally. Absent: respiratory distress, wheezes, rales, rhonchi, stridor Cardiovascular Exam: Present: regular rate, normal rhythm, normal heart sounds. Absent: systolic murmur, diastolic murmur, rubs, gallop, clicks GI/Abdominal exam: Present: soft, normal bowel sounds. Absent: distended, tenderness, guarding, rebound, rigid Course Vital Signs 05/26/21 11:12 Temperature 98.3 F Pulse Rate 77 Respiratory 20 Rate Blood Pressure 132/52 O2 Sat by Pulse 99 Oximetry Medical Decision Making - Medical Decision Making patient has a hemoglobin 6.8. Patient's name is related to chronic disease patient has no evidence of GI bleed, no melena stools no hematochezia. Patiently admitted for blood transfusion, dialysis. - Lab Data Result diagrams: 05/26/21 13:11 05/26/21 13:11 Lab Results 05/26/21 05/26/21 Range/Units 13:11 13:11 WBC 9.0 (3.8-10.6) k/uL RBC 2.30 L (4.30-5.90) m/uL Hgb 6.8 L* (13.0-17.5) gm/dL Hct 22.8 L (39.0-53.0) % MCV 99.3 (80.0-100.0) fL MCH 29.8 (25.0-35.0) pg MCHC 30.0 L (31.0-37.0) g/dL RDW 16.9 H (11.5-15.5) % Plt Count 376 (150-450) k/uL MPV 8.8 Neutrophils % 86 % Lymphocytes % 7 % Monocytes % 4 % Eosinophils % 1 % Basophils % 0 % Neutrophils # 7.7 (1.3-7.7) k/uL Lymphocytes # 0.6 L (1.0-4.8) k/uL Monocytes # 0.4 (0-1.0) k/uL Eosinophils # 0.1 (0-0.7) k/uL Basophils # 0.0 (0-0.2) k/uL Hypochromasia Marked Anisocytosis Slight Macrocytosis Slight Sodium 133 L (137-145) mmol/L Potassium 4.1 (3.5-5.1) mmol/L Chloride 98 (98-107) mmol/L Carbon Dioxide 29 (22-30) mmol/L Anion Gap 6 mmol/L BUN 33 H (9-20) mg/dL Creatinine 3.55 H (0.66-1.25) mg/dL Est GFR (CKD-EPI)AfAm 19 (>60 ml/min/1.73 sqM) Est GFR (CKD-EPI)NonAf 16 (>60 ml/min/1.73 sqM) Glucose 295 H (74-99) mg/dL Calcium 8.5 (8.4-10.2) mg/dL Total Bilirubin 0.3 (0.2-1.3) mg/dL AST 16 L (17-59) U/L ALT 10 (4-49) U/L Alkaline Phosphatase 98 (38-126) U/L Total Protein 6.0 L (6.3-8.2) g/dL Albumin 3.2 L (3.5-5.0) g/dL Disposition Clinical Impression: Anemia, Anemia in chronic kidney disease (CKD), Missed dialysis Disposition: ADMITTED IP TO THIS HOSP Condition: Fair Referrals: [facility],Clinic [Primary Care Provider] - 1-2 days
--- NOTE | 2021-05-26 16:44 | XR ---
EXAMINATION TYPE: XR chest 1V portable DATE OF EXAM: 05/26/2021 CLINICAL HISTORY: Difficulty breathing and CHF progress study. TECHNIQUE: Single AP portable upright view of the chest is obtained. COMPARISON: Chest x-ray from May 08, 2021 FINDINGS: Stable right internal jugular Mediport catheter. Persistent cardiomegaly with central vasc ular congestion and moderate interstitial edema along with small right pleural effusion and associate d right basilar compressive atelectasis. Osseous structures are demineralized. IMPRESSION: Findings consistent with CHF exacerbation redemonstrated as detailed above, slightly more prominent than most recent study
[2021-05-26 17:49] LABS: Glucose,Whole Blood 228 mg/dL (75-99)
[2021-05-26 20:06] LABS: Glucose,Whole Blood 236 mg/dL (75-99)
[2021-05-26] MEDS ORDERED: NITROGLYCERIN SL TABS 0.4 MG TAB SUBLINGUAL PRN (20:21)
[2021-05-26] MEDS ORDERED: SENNOSIDES-DOCUSATE SODIUM 1 EACH TAB PO PRN (20:21)
[2021-05-26] MEDS ORDERED: ONDANSETRON 4 MG TAB PO PRN (20:21)
[2021-05-26] MEDS ORDERED: ERGOCALCIFEROL 1,250 MCG (50,000 IU) CAPSULE PO SCH (21:00)
--- NOTE | 2021-05-26 21:06 | HP ---
HISTORY AND PHYSICAL DATE OF SERVICE: 05/26/2021 CHIEF COMPLAINT: Anemia. HISTORY OF PRESENT ILLNESS: This 71-year-old gentleman with a past medical history of multiple medical issues, including CAD, COPD, diabetes, GERD, GI bleed, hypertension, hyperlipidemia, history of cholecystectomy, history of renal disease, on hemodialysis, being followed by Dr. Myles in the [facility] in the outpatient setting, apparently missed hemodialysis, and the patient was also complaining of weakness. Hemoglobin was found to be low. The patient apparently had recurrent anemia secondary to chronic kidney disease. Because of increasing difficulty, shortness of breath and other medical issues, the patient came to [facility] and hemoglobin was found to be 6.8. Patient was admitted for further evaluation and treatment. There is no history of any fever, rigors or chills at this time. PAST MEDICAL HISTORY: History of GI bleed, history of COPD, GERD, hypertension, hyperlipidemia, and multiple medical issues, as mentioned earlier. MEDICATIONS: Home medications are Requip, Senokot-S, Zofran, Prilosec, Nitrostat, Lopressor, melatonin, loratadine, EMLA cream, Lantus, Lipitor, Ecotrin, Norvasc, Imdur, Neurontin, Lasix, Nephrocaps, vitamin D2, Cymbalta, vitamin B1. Doses are reviewed. ALLERGIES: IODINATED CONTRAST DYES. FAMILY HISTORY: History of metastatic cancer. SOCIAL HISTORY: History of smoking. No history of alcohol intake. REVIEW OF SYSTEMS: ENT: Diminished hearing. Diminished vision. CARDIOVASCULAR SYSTEM: As mentioned earlier. RESPIRATORY SYSTEM: As mentioned earlier. GI: As mentioned earlier. : As mentioned earlier. NERVOUS SYSTEM: No numbness, weakness. ALLERGY/IMMUNOLOGY: No asthma or hay fever. MUSCULOSKELETAL: As mentioned earlier. HEMATOLOGY/ONCOLOGY: As mentioned earlier. ENDOCRINE: ntd CONSTITUTIONAL: As mentioned earlier. DERMATOLOGY: Negative. RHEUMATOLOGY: Negative. HEMATOLOGY: As mentioned earlier. PSYCHIATRY: As mentioned earlier. PHYSICAL EXAMINATION: Patient alert and x3. Pulse 73, blood pressure 141/70, respiration 22, temperature 98.2, pulse ox 95% on 2 L. HEENT: Conjunctivae pale. Oral mucosa moist. NECK: No jugular venous distention. No carotid bruit. No lymph node enlargement. CARDIOVASCULAR: S1, S2 muffled. No S3. No S4. Ejection systolic murmur. RESPIRATION: Breath sounds diminished at the bases. A few scattered rhonchi and crackles. ABDOMEN: Soft, nontender. No mass palpable. LEGS: No edema. No swelling. NERVOUS SYSTEM: Higher functions as mentioned earlier. Moves all 4 limbs. No focal motor or sensory deficit. LYMPHATICS: No lymph node palpable in neck, axillae or groin. SKIN: No ulcer, rash, bleeding. JOINTS: No active deforming arthropathy. LABS: WBC 9. Labs are reviewed and include hemoglobin 6.8. Creatinine is elevated up to 3.55. Sodium 133. Other labs are noted. ASSESSMENT: 1. Acute blood loss anemia, symptomatic. 2. Hyponatremia. 3. End-stage renal disease, on hemodialysis. 4. Diabetes mellitus, type 2, uncontrolled with hyperglycemia. 5. Mild hypoalbuminemia with mild protein-calorie malnutrition. 6. History of coronary artery disease. 7. History of chronic obstructive pulmonary disease. 8. Diabetes mellitus, type 2. 9. Gastroesophageal reflux disease. 10.History of gastrointestinal bleed. 11.Hypertension. 12.Hyperlipidemia. 13.History of pneumonia. 14.History of benign colonic polyp. 15.History of partial small-bowel obstruction. 16.History of peripheral vascular disease. 17.History of stable lung nodules. 18.History of cholecystectomy. 19.History of right subclavian MediPort. 20.History of carotid stent from [place]. 21.Depression, posttraumatic stress disorder. 22.FULL CODE. RECOMMENDATIONS AND DISCUSSION: In this 71-year-old gentleman who presented with multiple complex medical issues, we will monitor the patient closely, continue the current medications, continue symptomatic treatment. One unit transfusion. Resume the home medications. Stool guaiac. Nephrology evaluation. Guarded prognosis because of multiple complex medical issues. Further recommendations to follow. I also recommend a gastroenterology evaluation. MMODL / IJN: [id number] / MTDD
[2021-05-26] MEDS ORDERED: FUROSEMIDE 10 MG/ML 4 ML VIAL IV STA (21:42)
[2021-05-26] MEDS ORDERED: FUROSEMIDE 10 MG/ML 10 ML VIAL IV STA (21:42)
[2021-05-26] MEDS ORDERED: LORazepam 2 MG/ML INJ IV STA (21:43)
[2021-05-26 21:45] LABS: Glucose,Whole Blood 220 mg/dL (75-99)
[2021-05-26] MEDS: METOPROLOL TARTRATE 25 MG TAB PO SCH (21:52)
[2021-05-26] MEDS: ISOSORBIDE MONONITRATE ER 60 MG TAB.ER.24H PO SCH (21:52)
--- NOTE | 2021-05-26 22:06 | P.EN ---
A team note patient suddenly started experiencing respiratory distress and hypoxemia after coming back from rest room he is ESRD missed HD. upon exam , diaphoretic, tachypnic , hypoxic lungs diminished breath sounds, rhonchorus no leg edema alert, anxious follows commands patient on non rebreather no skin changes no fever BP 216/74 tachycardia he also has just started blood transfusion assessment acute hypoxic respiratory failure secondary to flash pulmonary edema with malignant hypertension plan Bipap lasix 40 mg IVP ativan 1 mg IV once check EKG , no acute ST changes compared to before, frequent PVCs check 3 sets of trops q3hrs resume lopressor and imdur transfer to for close monitoring patient significantly improved after above measures CXR ordered and reviewed Total amount of critical care time spent was 35 minutes not counting procedures performed.
--- NOTE | 2021-05-26 22:30 | XR ---
EXAMINATION TYPE: XR chest 1V portable DATE OF EXAM: 05/26/2021 COMPARISON: Chest radiograph 05/26/2021 HISTORY: Difficulty breathing TECHNIQUE: Single frontal view of the chest is obtained. FINDINGS: Right chest wall medical infusion port with the catheter tip over the right atrium. The cardiomediastinal silhouette is stable. The pulmonary vasculature is partially obscured. There is bilateral patchy airspace opacity and blunting of the right costophrenic angle, worse from prior. No pneumothorax. The osseous structures are demineralized but intact. IMPRESSION: Bilateral airspace disease and a small right effusion, worse from prior.
[2021-05-27] MEDS: ASPIRIN 81 MG PO SCH ×2 (00:34→21:06)
[2021-05-27] MEDS: PANTOPRAZOLE 40 MG TABLET PO SCH ×2 (00:34→21:08)
[2021-05-27] MEDS: MELATONIN 5 MG TABLET PO SCH ×2 (00:34→21:07)
[2021-05-27] MEDS: GABAPENTIN 100 MG CAP PO SCH ×4 (00:34→21:07)
[2021-05-27] MEDS: ATORVASTATIN 20 MG TAB PO SCH ×2 (00:34→21:07)
[2021-05-27 01:27] LABS: Anisocytosis Slight; Basophils % (A) 0 %; Eosinophils # (A) 0.1 k/uL (0-0.7); Eosinophils % (A) 1 %; HCT 25.2 % (39.0-53.0); HGB 7.3 gm/dL (13.0-17.5); Hypochromasia Marked; Lymphocytes # (A) 0.5 k/uL (1.0-4.8); Lymphocytes % (A) 4 %; MCH 29.6 pg (25.0-35.0); MCHC 29.2 g/dL (31.0-37.0); MCV 101.4 fL (80.0-100.0); Macrocytosis Moderate; Mean Platelet Volume 8.1; Monocytes # (A) 0.5 k/uL (0-1.0); Monocytes % (A) 3 %; Neutrophils # (A) 12.3 k/uL (1.3-7.7); Neutrophils % (A) 91 %; Platelet Count 392 k/uL (150-450); RBC 2.48 m/uL (4.30-5.90); WBC 13.5 k/uL (3.8-10.6)
[2021-05-27] MEDS: INSULIN DETEMIR (LEVEMIR) 100 UNIT/ML SYR SQ SCH ×2 (01:46→21:08)
[2021-05-27 05:59] LABS: Glucose,Whole Blood 173 mg/dL (75-99)
[2021-05-27] MEDS: SYMBICORT 160-4.5 MCG INHALER INHALATION SCH ×2 (07:40→20:36)
[2021-05-27] MEDS: DULoxetine HCL 20 MG CAPSULE.DR PO SCH (07:47)
[2021-05-27] MEDS: ISOSORBIDE MONONITRATE ER 60 MG TAB.ER.24H PO SCH ×2 (07:47→21:07)
[2021-05-27] MEDS: amLODIPine 5 MG TAB PO SCH (07:47)
[2021-05-27] MEDS: LORATADINE 10 MG TAB PO SCH (07:48)
[2021-05-27] MEDS: FOLIC ACID-VIT B COMPLEX-VIT C 1 CAP PO SCH (07:48)
[2021-05-27] MEDS: METOPROLOL TARTRATE 25 MG TAB PO SCH ×2 (07:48→21:07)
[2021-05-27] MEDS: CLOPIDOGREL 75 MG TAB PO SCH (07:48)
[2021-05-27] MEDS: CYANOCOBALAMIN 500 MCG TAB PO SCH (07:48)
--- NOTE | 2021-05-27 08:47 | P.NPCON ---
History of Present Illness - Reason for Consult end stage renal disease - History of Present Illness Reason for consultation: End-stage renal disease History of present illness: Patient is a 71-year-old male seen in renal consultation for end-stage renal disease. He is maintained on hemodialysis on Saturday schedule for left upper extremity AV fistula. Patient presented to the hospital due to low hemoglobin. Patient denies any melena or hematochezia. No hematuria. No vomiting or diarrhea. No chest pain. Last night patient did go into respiratory distress. He was put on BiPAP and also received a dose of Ativan. Currently he is awake and alert. No chest pain or shortness of breath. He is on room air. Blood pressure stable. No fever or chills. Hemoglobin was 6.8 on admission and is 7.3 today. Chest x-ray showed small right effusion. Patient does have history of systolic CHF with ejection fraction of 45-50% with mild to moderate aortic regurgitation and mitral stenosis. Patient did miss yesterday's hemodialysis treatment. Vital signs are stable. General: The patient appeared well nourished and normally developed. HEENT: Head exam is unremarkable. LUNGS: Breath sounds decreased. HEART: Rate and Rhythm are regular. ABDOMEN: Soft, obese. EXTREMITITES: No edema. Past Medical History Past Medical History: Coronary Artery Disease (CAD), Chest Pain / Angina, COPD, Diabetes Mellitus, GERD/Reflux, GI Bleed, Hyperlipidemia, Hypertension, Pneumonia, Renal Disease, Vascular Disorder Additional Past Medical History / Comment(s): IDDM type II, lower GI bleed, benign colon polyps, spouse states micro bleeds in intestine are suspected, abdominal distention comes and goes which is nearly daily, partial SBO, chronic renal disease stage IV, iron anemia with iron transfusions (recent R upper chest mediport for infusions), PVD, stable lung nodules, chronic low back pain with bilateral sciatica, RLS, vertigo, insomnia, past agent orange exposure. Last Myocardial Infarction Date:: 03/2020 History of Any Multi-Drug Resistant Organisms: None Reported Past Surgical History: Cholecystectomy, Heart Catheterization Additional Past Surgical History / Comment(s): 03/25/20 R sublclavian mediport, R carotid stent done in [place], EGD/colonoscopyDecember 2016, endoscopic capsule, fx lt wrist -sx re-set, aortagram, bilateral leg revascularizations/stents Past Anesthesia/Blood Transfusion Reactions: No Reported Reaction Additional Past Anesthesia/Blood Transfusion Reaction / Comment(s): Pt has had blood transfusion without reaction. Date of Last Stent Placement:: 04/27/20 Past Psychological History: Depression, PTSD Additional Psychological History / Comment(s): Pt resides with his spouse and their 2 dogs. Pt uses a cane to ambulate. He has a mobility scooter which he u ses prn. He does not drive, his spouse drives. Pt served in the [employer] for 2 tours in [place]. Spouse states pt and herself are being trained to perform home dialysis. Smoking Status: Current every day smoker Past Alcohol Use History: None Reported Additional Past Alcohol Use History / Comment(s): Pt started smoking in 1964 and is a 1 ppd smoker. Past Drug Use History: None Reported Additional Drug Use History / Comment(s): Pt states he takes a couple puffs from a marijuana joint occasionally - Past Family History Father History Unknown: Yes Mother Family Medical History: Cancer Additional Family Medical History / Comment(s): Mother from metastatic cancer pelvic origin. Medications and Allergies Home Medications Medication Instructions Recorded Confirmed Type Ergocalciferol (Vitamin D2) 50,000 unit PO Q14D 07/18/17 05/26/21 History [Vitamin D2] Aspirin EC [Ecotrin Low Dose] 81 mg PO HS 02/10/18 05/26/21 History Cyanocobalamin [Vitamin B-12] 1,000 mcg PO DAILY 09/23/18 05/26/21 History Isosorbide Mononitrate ER [Imdur] 60 mg PO BID #60 tab.er.24h 04/21/20 05/26/21 Rx DULoxetine HCL [Cymbalta] 20 mg PO DAILY 10/27/20 05/26/21 History Folic Acid-Vit B Complex-Vit C 1 cap PO DAILY 12/19/20 05/26/21 History [Nephrocaps] Melatonin 5 mg PO HS 12/19/20 05/26/21 History Sennosides-Docusate Sodium 2 tab PO TID PRN 12/31/20 05/26/21 History [Senokot-S] Gabapentin [Neurontin] 100 mg PO TID 01/23/21 05/26/21 History Loratadine 10 mg PO DAILY 01/23/21 05/26/21 History Nitroglycerin Sl Tabs [Nitrostat] 0.4 mg SL Q5M PRN 01/23/21 05/26/21 History rOPINIRole HCL [Requip] 0.5 mg PO TID 01/23/21 05/26/21 History Budesonide-Formot 160-4.5 Mcg 2 puff INHALATION RT-BID #1 inhaler 02/01/21 05/26/21 Rx [Symbicort 160-4.5 Mcg Inhaler] Furosemide [Lasix] 80 mg PO DAILY 02/17/21 05/26/21 History Lidocaine-Prilocaine Cream [Emla 1 applic TOPICAL DIRECTED PRN 02/17/21 05/26/21 History Cream 2.5%/2.5%] Omeprazole [PriLOSEC] 40 mg PO HS #0 02/18/21 05/26/21 Rx Clopidogrel [Plavix] 75 mg PO DAILY #30 tab 04/12/21 05/26/21 Rx Metoprolol Tartrate [Lopressor] 25 mg PO BID #60 tab 04/12/21 05/26/21 Rx Atorvastatin [Lipitor] 20 mg PO HS 05/08/21 05/26/21 History Ondansetron [Zofran] 4 mg PO DAILY PRN 05/08/21 05/26/21 History Insulin Glargine [Lantus Vial] 20 unit SQ HS #0 05/10/21 05/26/21 Rx amLODIPine [Norvasc] 5 mg PO DAILY #30 tab 05/10/21 05/26/21 Rx Allergies Allergy/AdvReac Type Severity Reaction Status Date / Time Iodinated Contrast Media AdvReac CAN'T Verified 05/26/21 15:20 TAKE, RENAL DISEASE Iodine and Iodide Containing AdvReac CAN'T Verified 05/26/21 15:20 Produc TAKE, RENAL DISEASE Physical Exam Vitals: Vital Signs Temp Pulse Pulse Resp BP BP Pulse Ox 05/27/21 07:00 98 F 69 22 135/57 98 05/27/21 01:34 97.5 F L 65 20 141/59 97 05/26/21 21:25 205/81 05/26/21 21:16 98.2 F 90 20 164/69 05/26/21 21:15 98.2 F 90 20 164/69 05/26/21 21:06 98.2 F 86 20 156/69 05/26/21 16:43 98.2 F 79 22 141/70 95 05/26/21 15:14 92 22 153/67 92 L 05/26/21 13:14 77 20 145/67 94 L 05/26/21 11:12 98.3 F 77 20 132/52 99 Intake and Output 05/26/21 05/27/21 05/27/21 22:59 06:59 14:59 Intake Total 30 Output Total 350 Balance 30 -350 Intake: Blood Product 30 Rc As-1 Unit 30 [id number] Output: Urine 350 Other: Voiding Method Urinal Weight 81.647 kg 80.5 kg Results - Lab Results Most recent lab results Calcium 8.5 mg/dL (8.4-10.2) 05/26/21 13:11 05/27/21 00:53 05/26/21 13:11 Assessment and Plan Plan: Assessment: 1. End-stage renal disease maintained on hemodialysis on Saturday schedule. Left upper extremity AV fistula. 2. Anemia of chronic kidney disease. No active bleeding. Hemoglobin was 6.8 on admission and is 7.3 today. Status post blood transfusion. 3. Hypertension with chronic kidney disease. Stable. 4. Chronic systolic CHF with ejection fraction of 40-45%. 5. History of coronary artery disease status post cardiac stenting. 6. Diabetes mellitus. Plan: Hemodialysis today. Add Aranesp. Check phosphorus level. Thank you for the consultation. I will continue to follow the patient with you during his hospital stay.
[2021-05-27] MEDS ORDERED: FUROSEMIDE 40 MG TAB PO SCH (09:00)
[2021-05-27] MEDS ORDERED: DARBEPOETIN ALFA 40 MCG/0.4 ML SYRINGE SQ SCH (09:30)
[2021-05-27 09:55] LABS: African American GFR (CKD) 18 (>60 ml/min/1.73 sqM); Anion Gap 8 mmol/L; Blood Urea Nitrogen 40 mg/dL (9-20); Calcium 8.5 mg/dL (8.4-10.2); Carbon Dioxide 26 mmol/L (22-30); Chloride 101 mmol/L (98-107); Glucose 233 mg/dL (74-99); Non-African American GFR(CKD) 15 (>60 ml/min/1.73 sqM); Potassium 4.5 mmol/L (3.5-5.1); Sodium 135 mmol/L (137-145)
[2021-05-27 09:57] LABS: Anisocytosis Slight; Basophils % (A) 0 %; Eosinophils # (A) 0.1 k/uL (0-0.7); Eosinophils % (A) 1 %; HCT 22.7 % (39.0-53.0); Hypochromasia Marked; Lymphocytes # (A) 0.5 k/uL (1.0-4.8); Lymphocytes % (A) 6 %; MCH 29.8 pg (25.0-35.0); MCHC 29.6 g/dL (31.0-37.0); MCV 100.7 fL (80.0-100.0); Macrocytosis Slight; Mean Platelet Volume 8.2; Monocytes # (A) 0.3 k/uL (0-1.0); Monocytes % (A) 3 %; Neutrophils # (A) 7.5 k/uL (1.3-7.7); Neutrophils % (A) 88 %; Platelet Count 339 k/uL (150-450); RBC 2.25 m/uL (4.30-5.90); RDW 16.9 % (11.5-15.5); WBC 8.5 k/uL (3.8-10.6)
[2021-05-27 10:06] LABS: HGB 6.7 gm/dL (13.0-17.5)
[2021-05-27 11:40] LABS: Glucose,Whole Blood 216 mg/dL (75-99)
[2021-05-27] MEDS ORDERED: polyethylene glycoL 3350 17 GM POWD.PACK PO STA (15:48)
[2021-05-27 16:44] LABS: Glucose,Whole Blood 208 mg/dL (75-99)
[2021-05-27] MEDS: INSULIN ASPART (NovoLOG) 100 UNIT/ML VIAL SQ SCH ×2 (18:37→21:06)
[2021-05-27 20:02] LABS: Glucose,Whole Blood 254 mg/dL (75-99)
--- NOTE | 2021-05-27 20:55 | XR ---
EXAMINATION TYPE: XR KUB DATE OF EXAM: 05/27/2021 COMPARISON: 05/24/2018 HISTORY: Abdominal pain TECHNIQUE: 2 views supine FINDINGS: There is blunting right costophrenic angle. There is infiltrate right lung base. There is distended gas-filled loop of small bowel over the mid abdomen. Large bowel gas pattern is no rmal. There is no evidence of free air. IMPRESSION: There is right lower lobe pneumonia and pleural fluid which appears new compared to old e xam. Distended small bowel suggestive of ileus or partial mechanical obstruction and appears new compared to old exam.
[2021-05-27] MEDS: FUROSEMIDE 10 MG/ML 4 ML VIAL IV SCH (21:06)
--- NOTE | 2021-05-27 21:32 | PN ---
PROGRESS NOTE DATE OF SERVICE: 05/27/2021 This 71-year-old gentleman who was admitted with anemia had transfusion yesterday, but the patient had significant transfusion reaction, including some fluid overload. The patient was treated symptomatically. Patient has improved significantly currently. Chest x-ray showed significant CHF. The patient is getting hemodialysis. No chest pain. No palpitations. Hemoglobin is 6.7 today. Past medical history reviewed. REVIEW OF SYSTEMS: CARDIOVASCULAR: No angina, palpitations. RESPIRATORY SYSTEM: As mentioned earlier. GI: As mentioned earlier. : No dysuria. NERVOUS SYSTEM: No numbness, weakness. CURRENT MEDICATIONS: Reviewed. They include Tylenol, [place], Norvasc, aspirin, Lipitor. The rest of the medications and doses are reviewed. PHYSICAL EXAMINATION: Patient is alert, oriented x3. Pulse 68, blood pressure 141/65, respiration 20, temperature 97.5, pulse ox 94% on 2 L. HEENT: Conjunctivae pale. NECK: No jugular venous distention. CARDIOVASCULAR: S1, S2 muffled. RESPIRATION: Breath sounds diminished at the bases. A few scattered rhonchi and crackles. ABDOMEN: Soft, nontender. LEGS: No edema. No swelling. NERVOUS SYSTEM: No focal deficit. LABS: WBC 8.4, hemoglobin 6.7, sodium 135, creatinine 6.74. ASSESSMENT: 1. Acute blood loss anemia, symptomatic. 2. Congestive heart failure, acute exacerbation; ejection fraction unknown. 3. Hyponatremia. 4. History of renal disease, on hemodialysis. 5. Diabetes mellitus, type 2, uncontrolled with hyperglycemia. 6. Mild hypoalbuminemia with mild protein-calorie malnutrition. 7. History of coronary artery disease. 8. History of chronic obstructive pulmonary disease. 9. Diabetes mellitus, type 2. 10.Gastroesophageal reflux disease. 11.History of gastrointestinal bleed. 12.Hypertension. 13.Hyperlipidemia. 14.History of pneumonia. 15.History of benign prostatic hypertrophy. 16.History of partial small-bowel obstruction. 17.History of peripheral vascular disease. 18.History of stable lung nodules. 19.History of cholecystectomy. 20.History of right subclavian MediPort. 21.History of carotid stent from [place]. 22.Depression and post-traumatic stress disorder. 23.FULL CODE. RECOMMENDATIONS AND DISCUSSION: I recommend to continue current medications, continue with symptomatic treatment. Otherwise, at this time I recommend repeat labs. I would recommend monitoring the hemoglobin closely and transfusion if the hemoglobin is found to be less than 7, possibly prior to hemodialysis. Prognosis guarded. Further recommendations to follow. MMODL / IJN: [id number] /
[2021-05-27] MEDS: DOXYCYCLINE 100 MG CAP PO SCH (23:00)
[2021-05-28 00:34] LABS: Hepatitis B Surface Antibody NonReactive (Nonreactive); Hepatitis B Surface Antigen Nonreactive (Nonreactive)
[2021-05-28] MEDS: FUROSEMIDE 10 MG/ML 4 ML VIAL IV SCH ×2 (03:19→14:42)
[2021-05-28 06:02] LABS: Glucose,Whole Blood 75 mg/dL (75-99)
[2021-05-28] MEDS: INSULIN ASPART (NovoLOG) 100 UNIT/ML VIAL SQ SCH ×2 (06:07→11:39)
[2021-05-28] MEDS: SYMBICORT 160-4.5 MCG INHALER INHALATION SCH (07:28)
[2021-05-28 08:21] LABS: Calcium 8.7 mg/dL (8.4-10.2); Potassium 4.2 mmol/L (3.5-5.1)
[2021-05-28 08:48] VITALS: RESP 16
[2021-05-28 08:49] LABS: Anisocytosis Slight; Basophils % (A) 0 %; Eosinophils % (A) 0 %; HCT 23.8 % (39.0-53.0); Hypochromasia Marked; Lymphocytes # (A) 0.5 k/uL (1.0-4.8); Lymphocytes % (A) 7 %; MCH 28.9 pg (25.0-35.0); MCHC 29.5 g/dL (31.0-37.0); MCV 97.9 fL (80.0-100.0); Macrocytosis Slight; Mean Platelet Volume 8.8; Monocytes # (A) 0.3 k/uL (0-1.0); Monocytes % (A) 5 %; Neutrophils # (A) 5.7 k/uL (1.3-7.7); Neutrophils % (A) 86 %; Platelet Count 340 k/uL (150-450); Poikilocytosis Slight; RBC 2.43 m/uL (4.30-5.90); RDW 16.7 % (11.5-15.5); WBC 6.6 k/uL (3.8-10.6)
[2021-05-28] MEDS: CLOPIDOGREL 75 MG TAB PO SCH (08:49)
[2021-05-28] MEDS: DOXYCYCLINE 100 MG CAP PO SCH (08:49)
[2021-05-28] MEDS: DULoxetine HCL 20 MG CAPSULE.DR PO SCH (08:49)
[2021-05-28] MEDS: amLODIPine 5 MG TAB PO SCH (08:49)
[2021-05-28] MEDS: LORATADINE 10 MG TAB PO SCH (08:49)
[2021-05-28] MEDS: ISOSORBIDE MONONITRATE ER 60 MG TAB.ER.24H PO SCH (08:49)
[2021-05-28] MEDS: CYANOCOBALAMIN 500 MCG TAB PO SCH (08:49)
[2021-05-28] MEDS: FOLIC ACID-VIT B COMPLEX-VIT C 1 CAP PO SCH (08:49)
[2021-05-28] MEDS: GABAPENTIN 100 MG CAP PO SCH ×2 (08:49→15:54)
[2021-05-28] MEDS: METOPROLOL TARTRATE 25 MG TAB PO SCH (08:50)
--- NOTE | 2021-05-28 09:52 | P.PN ---
Subjective Patient is seen in follow-up for end-stage renal disease. He is maintained on hemodialysis on Saturday schedule. Hemoglobin 7.0 this morning. No active bleeding. No chest pain or shortness of breath. Wants to go home. Vital signs are stable. General: The patient appeared well nourished and normally developed. HEENT: Head exam is unremarkable. LUNGS: Breath sounds decreased. HEART: Rate and Rhythm are regular. ABDOMEN: Soft, no distention. EXTREMITITES: No edema. Objective - Vital Signs Vital signs: Vital Signs Temp 97.8 F 05/28/21 08:47 Pulse 66 05/28/21 08:47 Resp 16 05/28/21 08:47 BP 157/64 05/28/21 08:47 Pulse Ox 97 05/28/21 08:47 Intake & Output 05/27/21 05/28/21 05/28/21 18:59 06:59 18:59 Intake Total 180 550 240 Output Total 2850 100 175 Balance -2670 450 65 Weight 78 kg Intake: IV 10 Invasive Line 1 10 Oral 180 540 240 Output: Urine 350 100 175 Hemodialysis 2500 Other: Voiding Method Urinal # Voids 1 - Labs CBC & Chem 7: 05/28/21 07:09 05/28/21 07:09 Labs: Abnormal Lab Results - Last 24 Hours (Table) 05/26/21 05/27/21 05/27/21 Range/Units 17:32 08:59 08:59 RBC 2.25 L (4.30-5.90) m/uL Hgb 6.7 L* (13.0-17.5) gm/dL Hct 22.7 L (39.0-53.0) % MCV 100.7 H (80.0-100.0) fL MCHC 29.6 L (31.0-37.0) g/dL RDW 16.9 H (11.5-15.5) % Lymphocytes # 0.5 L (1.0-4.8) k/uL Sodium 135 L (137-145) mmol/L BUN 40 H (9-20) mg/dL Creatinine 3.74 H (0.66-1.25) mg/dL Glucose 233 H (74-99) mg/dL POC Glucose (mg/dL) (75-99) mg/dL Phosphorus (2.5-4.5) mg/dL Hep Bs Antibody (Nonreactive) Crossmatch See Detail 05/27/21 05/27/21 05/27/21 Range/Units 08:59 11:38 15:31 RBC (4.30-5.90) m/uL Hgb (13.0-17.5) gm/dL Hct (39.0-53.0) % MCV (80.0-100.0) fL MCHC (31.0-37.0) g/dL RDW (11.5-15.5) % Lymphocytes # (1.0-4.8) k/uL Sodium (137-145) mmol/L BUN (9-20) mg/dL Creatinine (0.66-1.25) mg/dL Glucose (74-99) mg/dL POC Glucose (mg/dL) 216 H (75-99) mg/dL Phosphorus 5.3 H (2.5-4.5) mg/dL Hep Bs Antibody NonReactive A (Nonreactive) Crossmatch 05/27/21 05/27/21 05/28/21 Range/Units 16:42 20:01 07:09 RBC 2.43 L (4.30-5.90) m/uL Hgb 7.0 L (13.0-17.5) gm/dL Hct 23.8 L (39.0-53.0) % MCV (80.0-100.0) fL MCHC 29.5 L (31.0-37.0) g/dL RDW 16.7 H (11.5-15.5) % Lymphocytes # 0.5 L (1.0-4.8) k/uL Sodium (137-145) mmol/L BUN (9-20) mg/dL Creatinine (0.66-1.25) mg/dL Glucose (74-99) mg/dL POC Glucose (mg/dL) 208 H 254 H (75-99) mg/dL Phosphorus (2.5-4.5) mg/dL Hep Bs Antibody (Nonreactive) Crossmatch 05/28/21 Range/Units 07:09 RBC (4.30-5.90) m/uL Hgb (13.0-17.5) gm/dL Hct (39.0-53.0) % MCV (80.0-100.0) fL MCHC (31.0-37.0) g/dL RDW (11.5-15.5) % Lymphocytes # (1.0-4.8) k/uL Sodium (137-145) mmol/L BUN 23 H (9-20) mg/dL Creatinine 2.92 H (0.66-1.25) mg/dL Glucose 72 L (74-99) mg/dL POC Glucose (mg/dL) (75-99) mg/dL Phosphorus (2.5-4.5) mg/dL Hep Bs Antibody (Nonreactive) Crossmatch Assessment and Plan Plan: Assessment: 1. End-stage renal disease maintained on hemodialysis on Saturday schedule via left upper extremity AV fistula. 2. Anemia of chronic kidney disease. No active bleeding. Hemoglobin was 6.8 on admission and is 7.0 today. Status post blood transfusion - ? ALLERGIC reaction. On Aranesp. Patient has been evaluated by GI recently. 3. Hypertension with chronic kidney disease. Stable. 4. Chronic systolic CHF with ejection fraction of 40-45%. 5. History of coronary artery disease status post cardiac stenting. 6. Diabetes mellitus. 7. Chronic kidney disease mineral bone disease. Phosphorous 5.3. Plan: Hemodialysis tomorrow. Scheduled to receive a unit of blood today.
[2021-05-28 11:39] LABS: Glucose,Whole Blood 123 mg/dL (75-99)
--- NOTE | 2021-05-28 11:55 | P.CONS ---
History of Present Illness - Reason for Consult Consult date: 05/28/21 ?transfusion reaction? Requesting physician: Aida Ndiaye - Chief Complaint Anemia on OP labs - History of Present Illness Mr. Egan is a very pleasant 71-year-old gentleman with a history of end- stage renal disease on dialysis Saturday as well as anemia chronic kidney disease and multiple other comorbidities as listed under past medical history who is here for fatigue, anemia, and missing dialysis. He ended up being too fatigued and tired to go to his dialysis due to acute on chronic anemia. He was advised to go to the ER where his hemoglobin was 6.7. He is on JOEL as per nephrology. He was transfused and had an episode of shortness of breath/dyspnea on exertion while walking from the restroom back to his bed shortly after his blood transfusion. He continues to make urine and he was diuresed with resolution of his symptoms. Hematology was consulted for concerns of a transfusion reaction. Chest x-ray revealed bilateral airspace disease, which is worse from his presenting chest x-ray which also revealed finding consistent with CHF exacerbation. He subsequently had an acute abdominal series which revealed a possible right lower lobe pneumonia as well as distended bowel suggestive of ileus or partial obstruction. His symptoms resolved with diuresis and he feels much better now as compared to when he first came in. He is curre ntly receiving a second unit of blood as his hemoglobin improved to 7.3 and then went back down to 6.77.0, without any problems. Hemoglobin and platelets have been normal. He does smoke. No significant alcohol or drug use. He lives with his . No known family history of blood disorders or malignancy. Past Medical History Past Medical History: Coronary Artery Disease (CAD), Chest Pain / Angina, COPD, Diabetes Mellitus, GERD/Reflux, GI Bleed, Hyperlipidemia, Hypertension, Pneumonia, Renal Disease, Vascular Disorder Additional Past Medical History / Comment(s): IDDM type II, lower GI bleed, benign colon polyps, spouse states micro bleeds in intestine are suspected, abdominal distention comes and goes which is nearly daily, partial SBO, chronic renal disease stage IV, iron anemia with iron transfusions (recent R upper chest mediport for infusions), PVD, stable lung nodules, chronic low back pain with bilateral sciatica, RLS, vertigo, insomnia, past agent orange exposure. Last Myocardial Infarction Date:: 03/2020 History of Any Multi-Drug Resistant Organisms: None Reported Past Surgical History: Cholecystectomy, Heart Catheterization Additional Past Surgical History / Comment(s): 03/25/20 R sublclavian mediport, R carotid stent done in [place], EGD/colonoscopyDecember 2016, endoscopic capsule, fx lt wrist -sx re-set, aortagram, bilateral leg revascularizations/stents Past Anesthesia/Blood Transfusion Reactions: No Reported Reaction Additional Past Anesthesia/Blood Transfusion Reaction / Comm: Pt has had blood transfusion without reaction. Date of Last Stent Placement:: 04/27/20 Past Psychological History: Depression, PTSD Additional Psychological History / Comment(s): Pt resides with his spouse and their 2 dogs. Pt uses a cane to ambulate. He has a mobility scooter which he uses prn. He does not drive, his spouse drives. Pt served in the [employer] for 2 tours in [place]. Spouse states pt and herself are being trained to perform home dialysis. Smoking Status: Current every day smoker Past Alcohol Use History: None Reported Additional Past Alcohol Use History / Comment(s): Pt started smoking in 1965 and is a 1 ppd smoker. Past Drug Use History: None Reported Additional Drug Use History / Comment(s): Pt states he takes a couple puffs from a marijuana joint occasionally - Past Family History Father History Unknown: Yes Mother Family Medical History: Cancer Additional Family Medical History / Comment(s): Mother from metastatic cancer pelvic origin. Medications and Allergies Home Medications Medication Instructions Recorded Confirmed Type Ergocalciferol (Vitamin D2) 50,000 unit PO Q14D 07/18/17 05/26/21 History [Vitamin D2] Aspirin EC [Ecotrin Low Dose] 81 mg PO HS 02/10/18 05/26/21 History Cyanocobalamin [Vitamin B-12] 1,000 mcg PO DAILY 09/23/18 05/26/21 History Isosorbide Mononitrate ER [Imdur] 60 mg PO BID #60 tab.er.24h 04/21/20 05/26/21 Rx DULoxetine HCL [Cymbalta] 20 mg PO DAILY 10/27/20 05/26/21 History Folic Acid-Vit B Complex-Vit C 1 cap PO DAILY 12/19/20 05/26/21 History [Nephrocaps] Melatonin 5 mg PO HS 12/19/20 05/26/21 History Sennosides-Docusate Sodium 2 tab PO TID PRN 12/31/20 05/26/21 History [Senokot-S] Gabapentin [Neurontin] 100 mg PO TID 01/23/21 05/26/21 History Loratadine 10 mg PO DAILY 01/23/21 05/26/21 History Nitroglycerin Sl Tabs [Nitrostat] 0.4 mg SL Q5M PRN 01/23/21 05/26/21 History rOPINIRole HCL [Requip] 0.5 mg PO TID 01/23/21 05/26/21 History Budesonide-Formot 160-4.5 Mcg 2 puff INHALATION RT-BID #1 inhaler 02/01/21 05/26/21 Rx [Symbicort 160-4.5 Mcg Inhaler] Furosemide [Lasix] 80 mg PO DAILY 02/17/21 05/26/21 History Lidocaine-Prilocaine Cream [Emla 1 applic TOPICAL DIRECTED PRN 02/17/21 05/26/21 History Cream 2.5%/2.5%] Omeprazole [PriLOSEC] 40 mg PO HS #0 02/18/21 05/26/21 Rx Clopidogrel [Plavix] 75 mg PO DAILY #30 tab 04/12/21 05/26/21 Rx Metoprolol Tartrate [Lopressor] 25 mg PO BID #60 tab 04/12/21 05/26/21 Rx Atorvastatin [Lipitor] 20 mg PO HS 05/08/21 05/26/21 History Ondansetron [Zofran] 4 mg PO DAILY PRN 05/08/21 05/26/21 History Insulin Glargine [Lantus Vial] 20 unit SQ HS #0 05/10/21 05/26/21 Rx amLODIPine [Norvasc] 5 mg PO DAILY #30 tab 05/10/21 05/26/21 Rx Allergies Allergy/AdvReac Type Severity Reaction Status Date / Time Iodinated Contrast Media AdvReac CAN'T Verified 05/26/21 15:20 TAKE, RENAL DISEASE Iodine and Iodide Containing AdvReac CAN'T Verified 05/26/21 15:20 Produc TAKE, RENAL DISEASE Physical Exam Vitals: Vital Signs Temp Pulse Resp BP Pulse Ox 05/28/21 08:47 97.8 F 66 16 157/64 97 05/28/21 03:17 98.1 F 62 18 140/60 96 05/28/21 02:00 60 18 05/28/21 00:00 97.9 F 60 18 124/52 99 05/27/21 20:00 98.6 F 75 20 159/70 94 L 05/27/21 17:43 97.6 F 20 167/78 05/27/21 17:39 97.5 F L 68 20 141/65 94 L 05/27/21 12:13 67 20 05/27/21 11:44 98.1 F 67 20 149/60 97 Intake and Output 05/27/21 05/28/21 05/28/21 22:59 06:59 14:59 Intake Total 180 550 240 Output Total 2600 175 Balance -2420 550 65 Intake: IV 10 Invasive Line 1 10 Oral 180 540 240 Output: Urine 100 175 Hemodialysis 2500 Other: Voiding Method Urinal Urinal # Voids 1 Weight 78 kg Gen.: In no acute distress. HEENT: Mucosa moist. Lungs: No respiratory distress. Heart: Regular rate. Abdomen: Soft. MSK: Appropriate strength in all 4 extremities. Neuro: Alert and oriented 3. Skin: No jaundice. Psych: Appropriate affect. Results CBC & Chem 7: 05/28/21 07:09 05/28/21 07:09 Labs: Abnormal Lab Results - Last 24 Hours (Table) 05/26/21 05/27/21 05/27/21 Range/Units 17:32 11:38 15:31 RBC (4.30-5.90) m/uL Hgb (13.0-17.5) gm/dL Hct (39.0-53.0) % MCHC (31.0-37.0) g/dL RDW (11.5-15.5) % Lymphocytes # (1.0-4.8) k/uL BUN (9-20) mg/dL Creatinine (0.66-1.25) mg/dL Glucose (74-99) mg/dL POC Glucose (mg/dL) 216 H (75-99) mg/dL Hep Bs Antibody NonReactive A (Nonreactive) Crossmatch See Detail 05/27/21 05/27/21 05/28/21 Range/Units 16:42 20:01 07:09 RBC 2.43 L (4.30-5.90) m/uL Hgb 7.0 L (13.0-17.5) gm/dL Hct 23.8 L (39.0-53.0) % MCHC 29.5 L (31.0-37.0) g/dL RDW 16.7 H (11.5-15.5) % Lymphocytes # 0.5 L (1.0-4.8) k/uL BUN (9-20) mg/dL Creatinine (0.66-1.25) mg/dL Glucose (74-99) mg/dL POC Glucose (mg/dL) 208 H 254 H (75-99) mg/dL Hep Bs Antibody (Nonreactive) Crossmatch 05/28/21 Range/Units 07:09 RBC (4.30-5.90) m/uL Hgb (13.0-17.5) gm/dL Hct (39.0-53.0) % MCHC (31.0-37.0) g/dL RDW (11.5-15.5) % Lymphocytes # (1.0-4.8) k/uL BUN 23 H (9-20) mg/dL Creatinine 2.92 H (0.66-1.25) mg/dL Glucose 72 L (74-99) mg/dL POC Glucose (mg/dL) (75-99) mg/dL Hep Bs Antibody (Nonreactive) Crossmatch Chest x-ray: report reviewed Abdominal x-ray: report reviewed Assessment and Plan (1) Anemia Current Visit: Yes Status: Acute Code(s): D64.9 - ANEMIA, UNSPECIFIED SN OMED Code(s): 589768108 (2) Flash pulmonary edema Current Visit: Yes Status: Acute Code(s): J81.0 - ACUTE PULMONARY EDEMA SNOMED Code(s): 139565348 (3) Missed dialysis Current Visit: Yes Status: Acute Code(s): YFH8574 - SNOMED Code(s): 281 231005 (4) Anemia in chronic kidney disease (CKD) Current Visit: Yes Status: Chronic Priority: High Code(s): N18.9 - CHRONIC KIDNEY DISEASE, UNSPECIFIED; D63.1 - ANEMIA IN CHRONIC KIDNEY DISEASE SNOMED Code(s): 823289294 (5) Dyspnea Current Visit: No Status: Acute Code(s): R06.00 - DYSPNEA, UNSPECIFIED SNOMED Code(s): 975303360 (6) Pneumonia Current Visit: No Status: Acute Code(s): J18.9 - PNEUMONIA, UNSPECIFIED ORGANISM SNOMED Code(s): 955803877 Plan: Mr. Egan is a very pleasant 71-year-old gentleman with history of multiple comorbidities including end-stage renal disease on dialysis Saturday as well as anemia of chronic kidney disease on JOEL therapy per nephrology who is here for fatigue and dyspnea on exertion due to symptomatic anemia. He also missed his dialysis on the day of presentation due to his symptoms. Hemoglobin was 6.8 on presentation, normal WBC and platelets. He underwent dialysis and unit of blood transfusion complicated by acute respiratory distress requiring diuresis. Chest x-ray revealed worsening pulmonary edema. His symptoms resolved with diuresis. Hemoglobin continues to be low at 6.77.0 and he is currently receiving another unit without any difficulty. I suspect he had TACO due to his blood transfusion. He might benefit from diuresis after transfusion versus receiving his blood transfusion during dialysis, or giving the blood at a slower rate and possible smaller volume. He continues to make urine and diuresis after transfusion is very reasonable. We'll also complete anemia workup to rule out other contributing factors including iron deficiency, vitamin B12 and folate deficiency and we'll supplement as needed. Discussed with patient in detail and is agreeable to the plan. All of his questions were answered.
--- NOTE | 2021-05-28 12:28 | P.PN ---
Subjective Progress Note Date: 05/28/21 PROGRESS NOTE Interval History 71-year-old gentleman is admitted with anemia, had transfusion yesterday, p atient had significant transfusion reaction and some fluid overload. Patient's treated symptomatically, patient has improved chest x-ray at that time showed significant CHF. Patient is hemodialysis patient receiving dialysis. 05/28/2021 Hemoglobin 7.0 today, patient is being transfused 1 unit PRBC. He did have a transfusion reaction previously. KUB yesterday showed evidence of partial ileus with distended small bowel, he is on clear liquid diet tolerating, he has received MiraLAX and has moved his bowels, he is not currently having abdominal pain. Patient is anxious to go home. He is currently on 2 L nasal cannula saturating above 90%, blood pressure and heart rate stable. Blood sugars are controlled, glucose 123 today. REVIEW OF SYSTEMS: CONSTITUTIONAL: Negative CARDIOVASCULAR: Negative PULMONARY: Negative GASTROINTESTINAL: Improving abdominal discomfort GENITOURINARY: Negative CONSTITUTIONAL: Alert, in no distress, appears stated age HEENT: Head is atraumatic, normocephalic. Pupils equal, round. Sclerae is anicteric. NECK: Supple. No JVD. No lymphadenopathy. No thyromegaly. LUNGS: Diminished breath sounds at bases. Chest expansion symmetrical, on 2 L nasal cannula HEART: Regular rate and rhythm. No murmur. S1S2, no rub or Gallop ABDOMEN: Soft, mild distention, hypoactive bowel sounds No masses or organomegally EXTREMITIES: Atraumatic, pulses present bilaterally, no Edema NEUROLOGIC: A&O x3, No focal weakness, no facial droop, ASSESSMENT & PLAN: Acute blood loss anemia Partial ileus Symptomatic anemia Acute exacerbation of CHF, LVEF unknown Hyponatremia ESRD on hemodialysis Type 2 diabetes mellitus, uncontrolled with hyperglycemia Mild hypoalbuminemia with mild protein calorie malnutrition History of coronary artery disease History of COPD Gastroesophageal reflux disease History of GI bleed Hypertension Hyperlipidemia History of pneumonia History of benign prostatic hypertrophy History of partial small bowel obstruction History of peripheral vascular disease History of stable lung nodules History of cholecystectomy History of right subclavian Mediport History of carotid stent from [place] Depression Post traumatic stress disorder Patient is being transfused 1 unit PRBC for hemoglobin 7.0. Monitor closely for any evidence of transfusion reaction. KUB yesterday showed a partial ileus, he is on clear liquid diet tolerating has moved his bowels with MiraLAX. Nephrology is following, he is continued on IV Lasix 40 twice daily. Antimicrobial therapy of doxycycline and Rocephin. Continue on appropriate home medications. Monitor volume status. Encourage incentive spirometer. possible discharge insulin sliding scale coverage, Levemir 20 units at night. Discharge planning, possible DC tomorrow Objective - Vital Signs Vital signs: Vital Signs Temp 97.9 F 05/28/21 11:36 Pulse 58 L 05/28/21 11:36 Resp 16 05/28/21 11:36 BP 148/48 05/28/21 11:36 Pulse Ox 98 05/28/21 11:36 Intake & Output 05/27/21 05/28/21 05/28/21 18:59 06:59 18:59 Intake Total 180 550 240 Output Total 2850 100 625 Balance -2670 450 -385 Weight 78 kg Intake: IV 10 Invasive Line 1 10 Oral 180 540 240 Blood Product 0 Rc As-1 Unit 0 [id number] Output: Urine 350 100 625 Hemodialysis 2500 Other: Voiding Method Urinal Urinal # Voids 1 - Labs CBC & Chem 7: 05/28/21 07:09 05/28/21 07:09 Labs: Abnormal Lab Results - Last 24 Hours (Table) 05/26/21 05/27/21 05/27/21 Range/Units 17:32 15:31 16:42 RBC (4.30-5.90) m/uL Hgb (13.0-17.5) gm/dL Hct (39.0-53.0) % MCHC (31.0-37.0) g/dL RDW (11.5-15.5) % Lymphocytes # (1.0-4.8) k/uL BUN (9-20) mg/dL Creatinine (0.66-1.25) mg/dL Glucose (74-99) mg/dL POC Glucose (mg/dL) 208 H (75-99) mg/dL Hep Bs Antibody NonReactive A (Nonreactive) Crossmatch See Detail 05/27/21 05/28/21 05/28/21 Range/Units 20:01 07:09 07:09 RBC 2.43 L (4.30-5.90) m/uL Hgb 7.0 L (13.0-17.5) gm/dL Hct 23.8 L (39.0-53.0) % MCHC 29.5 L (31.0-37.0) g/dL RDW 16.7 H (11.5-15.5) % Lymphocytes # 0.5 L (1.0-4.8) k/uL BUN 23 H (9-20) mg/dL Creatinine 2.92 H (0.66-1.25) mg/dL Glucose 72 L (74-99) mg/dL POC Glucose (mg/dL) 254 H (75-99) mg/dL Hep Bs Antibody (Nonreactive) Crossmatch 05/28/21 Range/Units 11:37 RBC (4.30-5.90) m/uL Hgb (13.0-17.5) gm/dL Hct (39.0-53.0) % MCHC (31.0-37.0) g/dL RDW (11.5-15.5) % Lymphocytes # (1.0-4.8) k/uL BUN (9-20) mg/dL Creatinine (0.66-1.25) mg/dL Glucose (74-99) mg/dL POC Glucose (mg/dL) 123 H (75-99) mg/dL Hep Bs Antibody (Nonreactive) Crossmatch
--- NOTE | 2021-05-28 13:49 | P.DS ---
Providers Date of admission: 05/26/21 15:23 Interval History 71-year-old gentleman is admitted with anemia, had transfusion yesterday, patient had significant transfusion reaction and some fluid overload. Patient's treated symptomatically, patient has improved chest x-ray at that time showed significant CHF. Patient is hemodialysis patient receiving dialysis. 05/28/2021 Hemoglobin 7.0 today, patient is being transfused 1 unit PRBC. He did have a transfusion reaction previously. KUB yesterday showed evidence of partial ileus with distended small bowel, he is on clear liquid diet tolerating, he has received MiraLAX and has moved his bowels, he is not currently having abdominal pain. Patient is anxious to go home. He is currently on 2 L nasal cannula saturating above 90%, blood pressure and heart rate stable. Blood sugars are controlled, glucose 123 today. REVIEW OF SYSTEMS: CONSTITUTIONAL: Negative CARDIOVASCULAR: Negative PULMONARY: Negative GASTROINTESTINAL: Improving abdominal discomfort GENITOURINARY: Negative CONSTITUTIONAL: Alert, in no distress, appears stated age HEENT: Head is atraumatic, normocephalic. Pupils equal, round. Sclerae is anicteric. NECK: Supple. No JVD. No lymphadenopathy. No thyromegaly. LUNGS: Diminished breath sounds at bases. Chest expansion symmetrical, on 2 L nasal cannula HEART: Regular rate and rhythm. No murmur. S1S2, no rub or Gallop ABDOMEN: Soft, mild distention, hypoactive bowel sounds No masses or organomegally EXTREMITIES: Atraumatic, pulses present bilaterally, no Edema NEUROLOGIC: A&O x3, No focal weakness, no facial droop, ASSESSMENT & PLAN: Acute blood loss anemia Partial ileus Symptomatic anemia Acute exacerbation of CHF, LVEF unknown Hyponatremia ESRD on hemodialysis Type 2 diabetes mellitus, uncontrolled with hyperglycemia Mild hypoalbuminemia with mild protein calorie malnutrition History of coronary artery disease History of COPD Gastroesophageal reflux disease History of GI bleed Hypertension Hyperlipidemia History of pneumonia History of benign prostatic hypertrophy History of partial small bowel obstruction History of peripheral vascular disease History of stable lung nodules History of cholecystectomy History of right subclavian Mediport History of carotid stent from [place] Depression Post traumatic stress disorder Patient transfused 1 unit PRBC for hemoglobin 7.0. KUB yesterday showed partial ileus, he is tolerating oral intake at this time is abdominal pain is improved and he has moved his bowels since receiving dose of MiraLAX. He reports he is feeling better and is anxious to go home. Vital signs are stable, afebrile. Patient will be discharged home continue antimicrobial therapy with doxycycline, continue on oral Lasix 80 daily. Follow-up with PCP and nephrology in the outpatient setting. Patient is being transfused 1 unit PRBC for hemoglobin 7.0. Monitor closely for any evidence of transfusion reaction. KUB yesterday showed a partial ileus, he is on clear liquid diet tolerating has moved his bowels with MiraLAX. Nephrology is following, he is continued on IV Lasix 40 twice daily. Antimicrobial therapy of doxycycline and Rocephin. Continue on appropriate home medications. Monitor volume status. Encourage incentive spirometer. possible discharge insulin sliding scale coverage, Levemir 20 units at night. Discharge planning, possible DC tomorrow Attending physician: Thierry Salcedo MD Consults: 05/26/21 14:25 Consult Physician Urgent Consulting Provider: Yulissa Ivory Consult Reason/Comments: dialysis Do you want consulting provider notified?: Yes 05/27/21 19:34 Consult Physician Routine Consulting Provider: Lucas Singletary Consult Reason/Comments: transfusion reaction? Do you want consulting provider notified?: Yes Primary care physician: [facility] Patient Condition at Discharge: Fair Plan - Discharge Summary Discharge Rx Participant: Yes New Discharge Prescriptions: New Doxycycline [Vibramycin] 100 mg PO BID #6 cap Continue Ergocalciferol (Vitamin D2) [Vitamin D2] 50,000 unit PO Q14D Aspirin EC [Ecotrin Low Dose] 81 mg PO HS Cyanocobalamin [Vitamin B-12] 1,000 mcg PO DAILY Isosorbide Mononitrate ER [Imdur] 60 mg PO BID #60 tab.er.24h DULoxetine HCL [Cymbalta] 20 mg PO DAILY Melatonin 5 mg PO HS Folic Acid-Vit B Complex-Vit C [Nephrocaps] 1 cap PO DAILY Sennosides-Docusate Sodium [Senokot-S] 2 tab PO TID PRN PRN Reason: Constipation Nitroglycerin Sl Tabs [Nitrostat] 0.4 mg SL Q5M PRN PRN Reason: Chest Pain Gabapentin [Neurontin] 100 mg PO TID Furosemide [Lasix] 80 mg PO DAILY Insulin Glargine [Lantus Vial] 20 unit SQ HS #0 rOPINIRole HCL [Requip] 0.5 mg PO TID Loratadine 10 mg PO DAILY Budesonide-Formot 160-4.5 Mcg [Symbicort 160-4.5 Mcg Inhaler] 2 puff INHALATION RT-BID #1 inhaler Lidocaine-Prilocaine Cream [Emla Cream 2.5%/2.5%] 1 applic TOPICAL DIRECTED PRN PRN Reason: dialysis Omeprazole [PriLOSEC] 40 mg PO HS #0 Metoprolol Tartrate [Lopressor] 25 mg PO BID #60 tab Clopidogrel [Plavix] 75 mg PO DAILY #30 tab Atorvastatin [Lipitor] 20 mg PO HS Ondansetron [Zofran] 4 mg PO DAILY PRN PRN Reason: Nausea And Vomiting amLODIPine [Norvasc] 5 mg PO DAILY #30 tab Discharge Medication List Ergocalciferol (Vitamin D2) [Vitamin D2] 50,000 unit PO Q14D 07/18/17 [History] Aspirin EC [Ecotrin Low Dose] 81 mg PO HS 02/10/18 [History] Cyanocobalamin [Vitamin B-12] 1,000 mcg PO DAILY 09/23/18 [History] Isosorbide Mononitrate ER [Imdur] 60 mg PO BID #60 tab.er.24h 04/21/20 [Rx] DULoxetine HCL [Cymbalta] 20 mg PO DAILY 10/27/20 [History] Folic Acid-Vit B Complex-Vit C [Nephrocaps] 1 cap PO DAILY 12/19/20 [History] Melatonin 5 mg PO HS 12/19/20 [History] Sennosides-Docusate Sodium [Senokot-S] 2 tab PO TID PRN 12/31/20 [History] Gabapentin [Neurontin] 100 mg PO TID 01/23/21 [History] Loratadine 10 mg PO DAILY 01/23/21 [History] Nitroglycerin Sl Tabs [Nitrostat] 0.4 mg SL Q5M PRN 01/23/21 [History] rOPINIRole HCL [Requip] 0.5 mg PO TID 01/23/21 [History] Budesonide-Formot 160-4.5 Mcg [Symbicort 160-4.5 Mcg Inhaler] 2 puff INHALATION RT-BID #1 inhaler 02/01/21 [Rx] Furosemide [Lasix] 80 mg PO DAILY 02/17/21 [History] Lidocaine-Prilocaine Cream [Emla Cream 2.5%/2.5%] 1 applic TOPICAL DIRECTED PRN 02/17/21 [History] Omeprazole [PriLOSEC] 40 mg PO HS #0 02/18/21 [Rx] Clopidogrel [Plavix] 75 mg PO DAILY #30 tab 04/12/21 [Rx] Metoprolol Tartrate [Lopressor] 25 mg PO BID #60 tab 04/12/21 [Rx] Atorvastatin [Lipitor] 20 mg PO HS 05/08/21 [History] Ondansetron [Zofran] 4 mg PO DAILY PRN 05/08/21 [History] Insulin Glargine [Lantus Vial] 20 unit SQ HS #0 05/10/21 [Rx] amLODIPine [Norvasc] 5 mg PO DAILY #30 tab 05/10/21 [Rx] Doxycycline [Vibramycin] 100 mg PO BID #6 cap 05/28/21 [Rx] Follow up Appointment(s)/Referral(s): [facility],Clinic [Primary Care Provider] - 1-2 days Ambulatory/Diagnostic Orders: Complete Blood Count w/diff [LAB.AMB] Location: None Selected
[2021-05-28 14:42] VITALS: BP 163/70; PULSE 60; TEMP 97.5
[2021-05-28 16:55] LABS: Protein, Total 5.5 g/dL (6.2-8.2)
[2021-05-28 17:09] LABS: % Iron Saturation 5.28 (15.00-50.00); Iron 16 ug/dL (65-175); Total Iron Binding Capacity 301 ug/dL (228-460)
[2021-05-28 17:11] LABS: Folate, Serum >20.00 ng/mL (4.40-31.00)
[2021-05-30 13:05] LABS: Gamma Globulin 0.85 g/dL (0.70-1.50)
[2021-05-30 13:34] LABS: Free Kappa Lt Chain Qnt, Serum 11.95 mg/dL (0.33-1.94)
== END 2021-05-28 16:08 | disposition home or self-care (01) ==
LOC: EC 11:04 → 6NMEDSUR 15:23 → 3SCARD 23:14
PROVIDERS: ADMIT Internal Medicine; ATTEND Internal Medicine
DX: D62 Acute posthemorrhagic anemia (principal); K56.7 Ileus, unspecified; I13.2 Hypertensive heart and chronic kidney disease with heart failure and with stage 5 chronic kidney disease, or end stage renal disease; E11.22 Type 2 diabetes mellitus with diabetic chronic kidney disease; N18.6 End stage renal disease; D63.1 Anemia in chronic kidney disease; I50.22 Chronic systolic (congestive) heart failure; E11.65 Type 2 diabetes mellitus with hyperglycemia; R06.03 Acute respiratory distress; E87.1 Hypo-osmolality and hyponatremia; E44.1 Mild protein-calorie malnutrition; E78.5 Hyperlipidemia, unspecified; F17.200 Nicotine dependence, unspecified, uncomplicated; T45.8X5A Adverse effect of other primarily systemic and hematological agents, initial encounter; Y84.8 Other medical procedures as the cause of abnormal reaction of the patient, or of later complication, without mention of misadventure at the time of the procedure; E11.51 Type 2 diabetes mellitus with diabetic peripheral angiopathy without gangrene; N40.0 Benign prostatic hyperplasia without lower urinary tract symptoms; M89.8X9 Other specified disorders of bone, unspecified site; I25.10 Atherosclerotic heart disease of native coronary artery without angina pectoris; J44.9 Chronic obstructive pulmonary disease, unspecified; I08.0 Rheumatic disorders of both mitral and aortic valves; K21.9 Gastro-esophageal reflux disease without esophagitis; R91.1 Solitary pulmonary nodule; I25.2 Old myocardial infarction; F43.10 Post-traumatic stress disorder, unspecified; F32.9 Major depressive disorder, single episode, unspecified; Z79.899 Other long term (current) drug therapy; Z79.51 Long term (current) use of inhaled steroids; Z79.02 Long term (current) use of antithrombotics/antiplatelets; Z79.4 Long term (current) use of insulin; Z91.041 Radiographic dye allergy status; Z90.49 Acquired absence of other specified parts of digestive tract; Z95.5 Presence of coronary angioplasty implant and graft; Z87.01 Personal history of pneumonia (recurrent); Z99.2 Dependence on renal dialysis; Z87.19 Personal history of other diseases of the digestive system; Z80.9 Family history of malignant neoplasm, unspecified
CPT/HCPCS: 99285; 96376 ×2; 90935; 96365; 96366; 96372; 96375 ×3; 36430 ×2; 36415; 94660 ×2; 94640 ×3; 86900; 86901; 80053; 80048 ×2; 82607; 82728; 82746; 83540; 83550; 84100; 84484; 85025 ×3; 86850; 86920; 86880; 86706; 87340; 84165; 86334; 83883; 87635; 71045; 74018; G0378 ×3; P9016 ×2; J2060; J2270; J1940 ×3; J2405; J0696; J1642; J0881

== ENCOUNTER 2021-06-07 08:28 | Inpatient (IN) | payer OTHER, MEDICARE ==
--- NOTE | 2021-06-07 09:22 | ED ---
General Adult HPI - General Chief complaint: Weakness Stated complaint: Low Hemoglobin Time Seen by Provider: 06/07/21 08:34 Source: patient, family Mode of arrival: wheelchair Limitations: no limitations - History of Present Illness Initial comments: Dictation was produced using [employer] dictation software. please excuse any grammatical, word or spelling errors. Chief Complaint: 71-year-old male presents emergency department for abnormal outpatient lab History of Present Illness: 71-year-old male has extensive history of anemia. He gets dialysis. He had his blood drawn at dialysis. He was told today come to the ER for hemoglobin of 6.6. Patient states he has been feeling a little lightheaded. Patient was recently in the hospital earlier this month for anemia. His history of transfusion reactions. No black or bloody stools. He takes Plavix. Denies any pain. The ROS documented in this emergency department record has been reviewed and confirmed by me. Those systems with pertinent positive or negative responses h ave been documented in the HPI. All other systems are other negative and/or noncontributory. PHYSICAL EXAM: General Impression: Alert and oriented x3, not in acute distress HEENT: Normocephalic atraumatic, extra-ocular movements intact, pupils equal and reactive to light bilaterally, mucous membranes moist. Cardiovascular: Heart regular rate and rhythm Chest: Able to complete full sentences, no retractions, no tachypnea Abdomen: abdomen soft, non-tender, non-distended, no organomegaly Musculoskeletal: Pulses present and equal in all extremities, no peripheral edema Motor: no focal deficits noted Neurological: CN II-XII grossly intact, no focal motor or sensory deficits noted Skin: Intact with no visualized rashes Psych: Normal affect and mood Rectal: No gross blood on SARAI, no melanotic stool ED course: 71-year-old male presents with outpatient hemoglobin of 6.6. He does report symptoms of anemia. Vital signs upon arrival are within acceptable limits. Laboratory evaluation obtained. No leukocytosis. Hemoglobin is 6.6 per coag panel is negative. Metabolic panel shows cerebral 131. Renal markers are within patient's baseline. [place] blood is negative. Patient reevaluated at 10:50 AM on in stable medical condition. Given degree of anemia patient ordered for transfusion of blood. He has history of transfusion reaction. He'll be admitted under the care of [facility] hospitalist group. Patient will require monitoring during and after transfusion for history of transfusion reaction. Patient is agreeable to plan. EKG interpretation: Ventricular rate 61, sinus rhythm, AK interval 150, QRS 90, QTc 463. No AK prolongation, no QTC prolongation, no ST or T-wave changes noted. EKG compared to 05/08/2021 showing no changes. Overall, this EKG is unremarkable - Related Data Home Medications Medication Instructions Recorded Confirmed Ergocalciferol (Vitamin D2) 50,000 unit PO Q14D 07/18/17 05/26/21 [Vitamin D2] Aspirin EC [Ecotrin Low Dose] 81 mg PO HS 02/10/18 05/26/21 Cyanocobalamin [Vitamin B-12] 1,000 mcg PO DAILY 09/23/18 05/26/21 DULoxetine HCL [Cymbalta] 20 mg PO DAILY 10/27/20 05/26/21 Folic Acid-Vit B Complex-Vit C 1 cap PO DAILY 12/19/20 05/26/21 [Nephrocaps] Melatonin 5 mg PO HS 12/19/20 05/26/21 Sennosides-Docusate Sodium 2 tab PO TID PRN 12/31/20 05/26/21 [Senokot-S] Gabapentin [Neurontin] 100 mg PO TID 01/23/21 05/26/21 Loratadine 10 mg PO DAILY 01/23/21 05/26/21 Nitroglycerin Sl Tabs [Nitrostat] 0.4 mg SL Q5M PRN 01/23/21 05/26/21 rOPINIRole HCL [Requip] 0.5 mg PO TID 01/23/21 05/26/21 Furosemide [Lasix] 80 mg PO DAILY 02/17/21 05/26/21 Lidocaine-Prilocaine Cream [Emla 1 applic TOPICAL DIRECTED PRN 02/17/21 05/26/21 Cream 2.5%/2.5%] Atorvastatin [Lipitor] 20 mg PO HS 05/08/21 05/26/21 Ondansetron [Zofran] 4 mg PO DAILY PRN 05/08/21 05/26/21 Previous Rx's Medication Instructions Recorded Isosorbide Mononitrate ER [Imdur] 60 mg PO BID #60 tab.er.24h 09/03/20 Budesonide-Formot 160-4.5 Mcg 2 puff INHALATION RT-BID #1 inhaler 02/01/21 [Symbicort 160-4.5 Mcg Inhaler] Omeprazole [PriLOSEC] 40 mg PO HS #0 02/18/21 Clopidogrel [Plavix] 75 mg PO DAILY #30 tab 04/12/21 Metoprolol Tartrate [Lopressor] 25 mg PO BID #60 tab 04/12/21 Insulin Glargine [Lantus Vial] 20 unit SQ HS #0 05/10/21 amLODIPine [Norvasc] 5 mg PO DAILY #30 tab 05/10/21 Doxycycline [Vibramycin] 100 mg PO BID #6 cap 05/28/21 Allergies Allergy/AdvReac Type Severity Reaction Status Date / Time Iodinated Contrast Media AdvReac CAN'T Verified 05/26/21 15:20 TAKE, RENAL DISEASE Iodine and Iodide Containing AdvReac CAN'T Verified 05/26/21 15:20 Produc TAKE, RENAL DISEASE Review of Systems ROS Statement: Those systems with pertinent positive or pertinent negative responses have been documented in the HPI. ROS Other: All systems not noted in ROS Statement are negative. Past Medical History Past Medical History: Coronary Artery Disease (CAD), Chest Pain / Angina, COPD, Diabetes Mellitus, GERD/Reflux, GI Bleed, Hyperlipidemia, Hypertension, Pneumonia, Renal Disease, Vascular Disorder Additional Past Medical History / Comment(s): IDDM type II, lower GI bleed, benign colon polyps, spouse states micro bleeds in intestine are suspected, abdominal distention comes and goes which is nearly daily, partial SBO, chronic renal disease stage IV, iron anemia with iron transfusions (recent R upper chest mediport for infusions), PVD, stable lung nodules, chronic low back pain with bilateral sciatica, RLS, vertigo, insomnia, past agent orange exposure. Last Myocardial Infarction Date:: 03/2020 History of Any Multi-Drug Resistant Organisms: None Reported Past Surgical History: Cholecystectomy, Heart Catheterization Additional Past Surgical History / Comment(s): 03/25/20 R sublclavian mediport, R carotid stent done in [place], EGD/colonoscopyDecember 2016, endoscopic capsule, fx lt wrist -sx re-set, aortagram, bilateral leg revascularizations/stents Past Anesthesia/Blood Transfusion Reactions: No Reported Reaction Additional Past Anesthesia/Blood Transfusion Reaction / Comment(s): Pt has had blood transfusion without reaction. Date of Last Stent Placement:: 04/27/20 Past Psychological History: Depression, PTSD Smoking Status: Current every day smoker Past Alcohol Use History: None Reported Past Drug Use History: None Reported - Past Family History Father History Unknown: Yes Mother Family Medical History: Cancer Additional Family Medical History / Comment(s): Mother from metastatic cancer pelvic origin. General Exam Limitations: no limitations Course Vital Signs 06/07/21 06/07/21 08:29 10:16 Temperature 97.2 F L Pulse Rate 68 50 L Respiratory 18 18 Rate Blood Pressure 120/38 133/55 O2 Sat by Pulse 99 Oximetry Medical Decision Making - Lab Data Result diagrams: 06/07/21 09:37 06/07/21 09:37 Lab Results 06/07/21 06/07/21 06/07/21 Range/Units 09:33 09:37 09:37 WBC 8.3 (3.8-10.6) k/uL RBC 2.28 L (4.30-5.90) m/uL Hgb 6.6 L* (13.0-17.5) gm/dL Hct 21.3 L (39.0-53.0) % MCV 93.4 (80.0-100.0) fL MCH 28.8 (25.0-35.0) pg MCHC 30.8 L (31.0-37.0) g/dL RDW 18.0 H (11.5-15.5) % Plt Count 421 (150-450) k/uL MPV 8.6 Neutrophils % 86 % Lymphocytes % 7 % Monocytes % 5 % Eosinophils % 1 % Basophils % 0 % Neutrophils # 7.1 (1.3-7.7) k/uL Lymphocytes # 0.6 L (1.0-4.8) k/uL Monocytes # 0.4 (0-1.0) k/uL Eosinophils # 0.1 (0-0.7) k/uL Basophils # 0.0 (0-0.2) k/uL Hypochromasia Moderate Poikilocytosis Slight Anisocytosis Slight PT 10.2 (9.0-12.0) sec INR 0.9 (<1.2) APTT 22.0 (22.0-30.0) sec Sodium (137-145) mmol/L Potassium (3.5-5.1) mmol/L Chloride (98-107) mmol/L Carbon Dioxide (22-30) mmol/L Anion Gap mmol/L BUN (9-20) mg/dL Creatinine (0.66-1.25) mg/dL Est GFR (CKD-EPI)AfAm (>60 ml/min/1.73 sqM) Est GFR (CKD-EPI)NonAf (>60 ml/min/1.73 sqM) Glucose (74-99) mg/dL Plasma Lactic Acid Leobardo (0.7-2.0) mmol/L Calcium (8.4-10.2) mg/dL Urine Color Urine Appearance (Clear) Urine pH (5.0-8.0) Ur Specific [place] (1.001-1.035) Urine Protein (Negative) Urine Glucose (UA) (Negative) Urine Ketones (Negative) Urine Blood (Negative) Urine Nitrite (Negative) Urine Bilirubin (Negative) Urine Urobilinogen (<2.0) mg/dL Ur Leukocyte Esterase (Negative) Urine RBC (0-5) /hpf Urine WBC (0-5) /hpf Ur Squamous Epith Cells (0-4) /hpf Amorphous Sediment (None) /hpf Hyaline Casts (0-2) /lpf Urine Mucus (None) /hpf Stool Occult Blood (Negative) Blood Type B Positive Blood Type Recheck B Pos Bld Type Recheck Status No Antibody Screen NEGATIVE Crossmatch See Detail Spec Expiration Date 06/10/2021 - 233606/07/21 06/07/21 06/07/21 Range/Units 09:37 09:37 09:37 WBC (3.8-10.6) k/uL RBC (4.30-5.90) m/uL Hgb (13.0-17.5) gm/dL Hct (39.0-53.0) % MCV (80.0-100.0) fL MCH (25.0-35.0) pg MCHC (31.0-37.0) g/dL RDW (11.5-15.5) % Plt Count (150-450) k/uL MPV Neutrophils % % Lymphocytes % % Monocytes % % Eosinophils % % Basophils % % Neutrophils # (1.3-7.7) k/uL Lymphocytes # (1.0-4.8) k/uL Monocytes # (0-1.0) k/uL Eosinophils # (0-0.7) k/uL Basophils # (0-0.2) k/uL Hypochromasia Poikilocytosis Anisocytosis PT (9.0-12.0) sec INR (<1.2) APTT (22.0-30.0) sec Sodium 131 L (137-145) mmol/L Potassium 4.0 (3.5-5.1) mmol/L Chloride 99 (98-107) mmol/L Carbon Dioxide 24 (22-30) mmol/L Anion Gap 8 mmol/L BUN 37 H (9-20) mg/dL Creatinine 3.43 H (0.66-1.25) mg/dL Est GFR (CKD-EPI)AfAm 20 (>60 ml/min/1.73 sqM) Est GFR (CKD-EPI)NonAf 17 (>60 ml/min/1.73 sqM) Glucose 259 H (74-99) mg/dL Plasma Lactic Acid Leobardo 0.8 (0.7-2.0) mmol/L Calcium 8.5 (8.4-10.2) mg/dL Urine Color Urine Appearance (Clear) Urine pH (5.0-8.0) Ur Specific [place] (1.001-1.035) Urine Protein (Negative) Urine Glucose (UA) (Negative) Urine Ketones (Negative) Urine Blood (Negative) Urine Nitrite (Negative) Urine Bilirubin (Negative) Urine Urobilinogen (<2.0) mg/dL Ur Leukocyte Esterase (Negative) Urine RBC (0-5) /hpf Urine WBC (0-5) /hpf Ur Squamous Epith Cells (0-4) /hpf Amorphous Sediment (None) /hpf Hyaline Casts (0-2) /lpf Urine Mucus (None) /hpf Stool Occult Blood Negative (Negative) Blood Type Blood Type Recheck Bld Type Recheck Status Antibody Screen Crossmatch Spec Expiration Date 06/07/21 Range/Units 09:59 WBC (3.8-10.6) k/uL RBC (4.30-5.90) m/uL Hgb (13.0-17.5) gm/dL Hct (39.0-53.0) % MCV (80.0-100.0) fL MCH (25.0-35.0) pg MCHC (31.0-37.0) g/dL RDW (11.5-15.5) % Plt Count (150-450) k/uL MPV Neutrophils % % Lymphocytes % % Monocytes % % Eosinophils % % Basophils % % Neutrophils # (1.3-7.7) k/uL Lymphocytes # (1.0-4.8) k/uL Monocytes # (0-1.0) k/uL Eosinophils # (0-0.7) k/uL Basophils # (0-0.2) k/uL Hypochromasia Poikilocytosis Anisocytosis PT (9.0-12.0) sec INR (<1.2) APTT (22.0-30.0) sec Sodium (137-145) mmol/L Potassium (3.5-5.1) mmol/L Chloride (98-107) mmol/L Carbon Dioxide (22-30) mmol/L Anion Gap mmol/L BUN (9-20) mg/dL Creatinine (0.66-1.25) mg/dL Est GFR (CKD-EPI)AfAm (>60 ml/min/1.73 sqM) Est GFR (CKD-EPI)NonAf (>60 ml/min/1.73 sqM) Glucose (74-99) mg/dL Plasma Lactic Acid Leobardo (0.7-2.0) mmol/L Calcium (8.4-10.2) mg/dL Urine Color Yellow Urine Appearance Clear (Clear) Urine pH 5.5 (5.0-8.0) Ur Specific [place] 1.016 (1.001-1.035) Urine Protein 3+ H (Negative) Urine Glucose (UA) 3+ H (Negative) Urine Ketones Negative (Negative) Urine Blood Negative (Negative) Urine Nitrite Negative (Negative) Urine Bilirubin Negative (Negative) Urine Urobilinogen <2.0 (<2.0) mg/dL Ur Leukocyte Esterase Negative (Negative) Urine RBC 1 (0-5) /hpf Urine WBC 3 (0-5) /hpf Ur Squamous Epith Cells <1 (0-4) /hpf Amorphous Sediment Rare H (None) /hpf Hyaline Casts 3 H (0-2) /lpf Urine Mucus Rare H (None) /hpf Stool Occult Blood (Negative) Blood Type Blood Type Recheck Bld Type Recheck Status Antibody Screen Crossmatch Spec Expiration Date Disposition Clinical Impression: Anemia Disposition: ADMITTED IP TO THIS HOSP Condition: Fair Referrals: [facility],Clinic [Primary Care Provider] - 1-2 days
[2021-06-07 10:25] LABS: INR 0.9 (<1.2); Prothrombin Time 10.2 sec (9.0-12.0)
[2021-06-07 10:29] LABS: Anisocytosis Slight; Basophils % (A) 0 %; Eosinophils # (A) 0.1 k/uL (0-0.7); Eosinophils % (A) 1 %; HCT 21.3 % (39.0-53.0); Hypochromasia Moderate; Lymphocytes # (A) 0.6 k/uL (1.0-4.8); Lymphocytes % (A) 7 %; MCH 28.8 pg (25.0-35.0); MCHC 30.8 g/dL (31.0-37.0); MCV 93.4 fL (80.0-100.0); Mean Platelet Volume 8.6; Monocytes # (A) 0.4 k/uL (0-1.0); Monocytes % (A) 5 %; Neutrophils # (A) 7.1 k/uL (1.3-7.7); Neutrophils % (A) 86 %; Platelet Count 421 k/uL (150-450); Poikilocytosis Slight; RBC 2.28 m/uL (4.30-5.90); WBC 8.3 k/uL (3.8-10.6)
[2021-06-07 10:31] LABS: Calcium 8.5 mg/dL (8.4-10.2)
[2021-06-07 10:34] LABS: HGB 6.6 gm/dL (13.0-17.5)
[2021-06-07 10:59] LABS: Amorphous Sediment,Urine Rare /hpf; Appearance,Urine Clear (Clear); Bilirubin,Urine Negative (Negative); Blood,Urine Negative (Negative); Color,Urine Yellow; Glucose,Urine (UA) 3+ (Negative); Hyaline Casts,Urine 3 /lpf (0-2); Ketones,Urine Negative (Negative); Leukocyte Esterase,Urine Negative (Negative); Mucus,Urine Rare /hpf; Nitrite,Urine Negative (Negative); PH, Urine 5.5 (5.0-8.0); Protein,Urine 3+ (Negative); RBC,Urine 1 /hpf (0-5); Specific Gravity,Urine 1.016 (1.001-1.035); Squamous Epithelial Cell,Urine <1 /hpf (0-4); Urobilinogen,Urine <2.0 mg/dL (<2.0); WBC,Urine 3 /hpf (0-5)
[2021-06-07] MEDS ORDERED: NALOXONE 0.4 MG/ML 1 ML VIAL IV PRN (11:08)
[2021-06-07] MEDS ORDERED: NICOTINE 21MG/24HR PATCH TRANSDERM STA (11:40)
[2021-06-07] MEDS ORDERED: NITROGLYCERIN SL TABS 0.4 MG TAB SUBLINGUAL PRN (11:46)
[2021-06-07] MEDS ORDERED: SENNOSIDES-DOCUSATE SODIUM 1 EACH TAB PO PRN (11:46)
[2021-06-07] MEDS ORDERED: MELATONIN 5 MG TABLET PO PRN (11:46)
[2021-06-07] MEDS ORDERED: LIDOCAINE-PRILOCAINE 2.5-2.5% CREAM 5 GM TUBE TOPICAL PRN (11:46)
[2021-06-07] MEDS ORDERED: ONDANSETRON 4 MG TAB PO PRN (11:46)
--- NOTE | 2021-06-07 11:48 | P.HPIM ---
History of Present Illness This is a pleasant 71 years old male with past medical history of end-stage renal disease on hemodialysis, COPD, Diabetes Mellitus, GERD/Reflux, GI Bleed, Hyperlipidemia, Hypertension, chronic low back pain, vertigo Patient was sent from his Dr. office for his low hemoglobin. Patient still denies any symptoms. No chest pain or dyspnea. No abdominal pain or nausea vomiting. No diarrhea. No headache or dizziness or weakness. He smoked 1 pack per day and he is consult and agrees to quit. No alcohol or illicit tracts Vitals are stable. Blood pressure is good. Hemoglobin 6.6. Rest of the CBC is unremarkable. Test was good 4.0, sodium 131. Creatinine 3.4. Urinalysis showing proteinuria and glucosuria. Coronavirus not detected. EKG showing normal sinus rhythm at [address]-T changes. QTC 463 Review of Systems CONSTITUTIONAL: No fever, no malaise, no fatigue. HEENT: No recent visual problems or hearing problems. Denied any sore throat. CARDIOVASCULAR: No orthopnea, PND, no palpitations, no syncope. PULMONARY: No shortness of breath, no cough, no hemoptysis. GASTROINTESTINAL: No diarrhea, no nausea, no vomiting, no abdominal pain. Normoactive bowel sounds. NEUROLOGICAL: No headaches, no weakness, no numbness. HEMATOLOGICAL: Denies any bleeding or petechiae. GENITOURINARY: Denies any burning micturition, frequency, or urgency. MUSCULOSKELETAL/RHEUMATOLOGICAL: Denies any joint pain, swelling, or any muscle pain. ENDOCRINE: Denies any polyuria or polydipsia. Past Medical History Past Medical History: Coronary Artery Disease (CAD), Chest Pain / Angina, COPD, Diabetes Mellitus, GERD/Reflux, GI Bleed, Hyperlipidemia, Hypertension, Pneumonia, Renal Disease, Vascular Disorder Additional Past Medical History / Comment(s): IDDM type II, lower GI bleed, benign colon polyps, spouse states micro bleeds in intestine are suspected, abdominal distention comes and goes which is nearly daily, partial SBO, chronic renal disease stage IV, iron anemia with iron transfusions (recent R upper chest mediport for infusions), PVD, stable lung nodules, chronic low back pain with bilateral sciatica, RLS, vertigo, insomnia, past agent orange exposure. Last Myocardial Infarction Date:: 03/2020 History of Any Multi-Drug Resistant Organisms: None Reported Past Surgical History: Cholecystectomy, Heart Catheterization Additional Past Surgical History / Comment(s): 03/25/20 R sublclavian mediport, R carotid stent done in [place], EGD/colonoscopyDecember 2016, endoscopic capsule, fx lt wrist -sx re-set, aortagram, bilateral leg revascularizations/stents Past Anesthesia/Blood Transfusion Reactions: No Reported Reaction Additional Past Anesthesia/Blood Transfusion Reaction / Comment(s): Pt has had blood transfusion without reaction. Date of Last Stent Placement:: 04/27/20 Past Psychological History: Depression, PTSD Smoking Status: Current every day smoker Past Alcohol Use History: None Reported Past Drug Use History: None Reported - Past Family History Father History Unknown: Yes Mother Family Medical History: Cancer Additional Family Medical History / Comment(s): Mother from metastatic cancer pelvic origin. Medications and Allergies Home Medications Medication Instructions Recorded Confirmed Type Ergocalciferol (Vitamin D2) 50,000 unit PO Q14D 07/18/17 06/07/21 History [Vitamin D2] Aspirin EC [Ecotrin Low Dose] 81 mg PO HS 02/10/18 06/07/21 History Cyanocobalamin [Vitamin B-12] 1,000 mcg PO DAILY 09/23/18 06/07/21 History Isosorbide Mononitrate ER [Imdur] 60 mg PO BID #60 tab.er.24h 04/21/20 06/07/21 Rx DULoxetine HCL [Cymbalta] 20 mg PO DAILY 10/27/20 06/07/21 History Folic Acid-Vit B Complex-Vit C 1 cap PO DAILY 12/19/20 06/07/21 History [Nephrocaps] Melatonin 5 mg PO HS 12/19/20 06/07/21 History Sennosides-Docusate Sodium 2 tab PO TID PRN 12/31/20 06/07/21 History [Senokot-S] Gabapentin [Neurontin] 100 mg PO TID 01/23/21 06/07/21 History Loratadine 10 mg PO DAILY 01/23/21 06/07/21 History Nitroglycerin Sl Tabs [Nitrostat] 0.4 mg SL Q5M PRN 01/23/21 06/07/21 History rOPINIRole HCL [Requip] 0.5 mg PO TID 01/23/21 06/07/21 History Budesonide-Formot 160-4.5 Mcg 2 puff INHALATION RT-BID #1 inhaler 02/01/21 06/07/21 Rx [Symbicort 160-4.5 Mcg Inhaler] Furosemide [Lasix] 80 mg PO DAILY 02/17/21 06/07/21 History Lidocaine-Prilocaine Cream [Emla 1 applic TOPICAL DIRECTED PRN 02/17/21 06/07/21 History Cream 2.5%/2.5%] Omeprazole [PriLOSEC] 40 mg PO HS #0 02/18/21 06/07/21 Rx Clopidogrel [Plavix] 75 mg PO DAILY #30 tab 04/12/21 06/07/21 Rx Metoprolol Tartrate [Lopressor] 25 mg PO BID #60 tab 04/12/21 06/07/21 Rx Atorvastatin [Lipitor] 20 mg PO HS 05/08/21 06/07/21 History Ondansetron [Zofran] 4 mg PO DAILY PRN 05/08/21 06/07/21 History Insulin Glargine [Lantus Vial] 20 unit SQ HS #0 05/10/21 06/07/21 Rx amLODIPine [Norvasc] 5 mg PO DAILY #30 tab 05/10/21 06/07/21 Rx Allergies Allergy/AdvReac Type Severity Reaction Status Date / Time Iodinated Contrast Media AdvReac CAN'T Verified 06/07/21 11:10 TAKE, RENAL DISEASE Iodine and Iodide Containing AdvReac CAN'T Verified 06/07/21 11:10 Produc TAKE, RENAL DISEASE Physical Exam Vitals: Vital Signs Temp Pulse Resp BP Pulse Ox 06/07/21 10:16 50 L 18 133/55 06/07/21 08:29 97.2 F L 68 18 120/38 99 Intake and Output 06/06/21 06/07/21 06/07/21 22:59 06:59 14:59 Other: Weight 81.647 kg GENERAL: The patient is alert and oriented x3, not in any acute distress. Well developed, well nourished. HEENT: Pupils are round and equally reacting to light. EOMI. No scleral icterus. No conjunctival pallor. Normocephalic, atraumatic. No pharyngeal erythema. No thyromegaly. CARDIOVASCULAR: S1 and S2 present. No murmurs, rubs, or gallops. PULMONARY: Chest is clear to auscultation, no wheezing or crackles. ABDOMEN: Soft, nontender, nondistended, normoactive bowel sounds. No palpable organomegaly. MUSCULOSKELETAL: No joint swelling or deformity. EXTREMITIES: No cyanosis, clubbing, or pedal edema. NEUROLOGICAL: Gross neurological examination did not reveal any focal deficits. SKIN: No rashes. No petechiae Results CBC & Chem 7: 06/07/21 09:37 06/07/21 09:37 Labs: Abnormal Lab Results - Last 24 Hours (Table) 06/07/21 06/07/21 06/07/21 Range/Units 09:33 09:37 09:37 RBC 2.28 L (4.30-5.90) m/uL Hgb 6.6 L* (13.0-17.5) gm/dL Hct 21.3 L (39.0-53.0) % MCHC 30.8 L (31.0-37.0) g/dL RDW 18.0 H (11.5-15.5) % Lymphocytes # 0.6 L (1.0-4.8) k/uL Sodium 131 L (137-145) mmol/L BUN 37 H (9-20) mg/dL Creatinine 3.43 H (0.66-1.25) mg/dL Glucose 259 H (74-99) mg/dL Urine Protein (Negative) Urine Glucose (UA) (Negative) Amorphous Sediment (None) /hpf Hyaline Casts (0-2) /lpf Urine Mucus (None) /hpf Crossmatch See Detail 06/07/21 Range/Units 09:59 RBC (4.30-5.90) m/uL Hgb (13.0-17.5) gm/dL Hct (39.0-53.0) % MCHC (31.0-37.0) g/dL RDW (11.5-15.5) % Lymphocytes # (1.0-4.8) k/uL Sodium (137-145) mmol/L BUN (9-20) mg/dL Creatinine (0.66-1.25) mg/dL Glucose (74-99) mg/dL Urine Protein 3+ H (Negative) Urine Glucose (UA) 3+ H (Negative) Amorphous Sediment Rare H (None) /hpf Hyaline Casts 3 H (0-2) /lpf Urine Mucus Rare H (None) /hpf Crossmatch Assessment and Plan Assessment: Severe anemia on admission. Hemoglobin 6.6 on admission. Status post one unit of blood transfusion ESRD on hemodialysis Nicotine dependence History of vitamin B12 deficiency on replacement therapy GERD Hyperlipidemia Hypertension Diabetes mellitus COPD, no acute exacerbation History of Coronary Artery Disease Chronic low back pain History of vertigo Plan: this is a pleasant 71 years old female who presents with severe anemia First use for hemoglobin less than 7 Anemia workup Nephrology consult for hemodialysis Hold Plavix until further workup. Continue with aspirin for now with close monitoring Labs and medication were reviewed.. Continue same treatment. Continue with sym ptomatic treatment. Resume home medication. Monitor lytes and vitals. DVT and GI prophylaxis. Further recommendations depends on the clinical course of the patient DVT prophylaxis: no Subcutaneous heparin for severe anemia GI Prophylaxis: Ppi Prognosis is guarded
[2021-06-07] MEDS ORDERED: ERGOCALCIFEROL 1,250 MCG (50,000 IU) CAPSULE PO SCH (12:00)
[2021-06-07 12:49] LABS: Glucose,Whole Blood 294 mg/dL (75-99)
[2021-06-07] MEDS: INSULIN ASPART (NovoLOG) 100 UNIT/ML VIAL SQ SCH ×3 (12:50→21:34)
[2021-06-07] MEDS: SODIUM CHLORIDE 0.9% 1,000 ML IV SCH (12:51)
[2021-06-07] MEDS: GABAPENTIN 100 MG CAP PO SCH ×2 (15:51→22:37)
[2021-06-07 17:05] LABS: Glucose,Whole Blood 220 mg/dL (75-99)
[2021-06-07] MEDS: SYMBICORT 160-4.5 MCG INHALER INHALATION SCH (20:29)
--- NOTE | 2021-06-07 20:42 | CONS ---
CONSULTATION REASON FOR CONSULT: End-stage renal disease. HISTORY OF PRESENT ILLNESS: Patient is a 71-year-old male with end-stage renal disease, on hemodialysis on a Saturday, Saturday, Saturday schedule. He was admitted to the hospital with complaints of weakness and patient was found to have a hemoglobin of 6.6 g/dL. No active bleeding noted. He is being transfused one unit packed RBCs. Patient did complain of some shortness of breath. No abdominal pain, nausea, vomiting or diarrhea. PAST MEDICAL HISTORY: Coronary artery disease, COPD, type 2 diabetes, previous history of GI bleed, gastroesophageal reflux disease, hypertension, hyperlipidemia, anemia of chronic disease, stable lung nodules, peripheral vascular disease, history of Agent Roberta exposure. PAST SURGICAL HISTORY: Cholecystectomy, cardiac catheterization, AV fistula, EGD, colonoscopies, bilateral leg revascularizations and stent placement, right carotid artery stent. SOCIAL HISTORY: Positive for smoking. No history of drug abuse or alcohol abuse. MEDICATIONS: Medications prior to admission included vitamin D, aspirin, Imdur, Cymbalta, melatonin, folic acid, Senokot, Neurontin, loratadine, Requip, Lasix, Lipitor, Zofran, insulin, Norvasc. ALLERGIES: ALLERGIES include IV CONTRAST. REVIEW OF SYSTEMS: As per HPI. Other systems negative. PHYSICAL EXAMINATION: Patient is comfortable, awake, alert, oriented x3, not in any acute distress. Blood pressure this morning was 133/55, heart rate of 74 per minute. Patient is afebrile. EXAMINATION OF THE HEART: S1 and S2. EXAMINATION OF LUNGS: Bilateral breath sounds are heard. Abdomen is soft, non-tender. Examination of lower extremities shows no significant edema. 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 LABS: Sodium 131, potassium 4.0, BUN 37, creatinine 3.4, hemoglobin 6.6 g/dL. ASSESSMENT: 1. End-stage renal disease, on hemodialysis on a Saturday, Saturday, Saturday schedule. 2. Anemia with previous history of GI bleed and gastroesophageal reflux disease. No obvious bleeding noted. Patient is being transfused packed RBCs. Mostly acute blood loss anemia. 3. Hyperlipidemia. 4. Type 2 diabetes. 5. Chronic kidney disease mineral bone disorder. 6. Chronic obstructive pulmonary disease. PLAN: Transfuse packed RBCs. Hemodialysis today after packed RBCs transfusion. Check patient's phosphorus binders and resume. I do not see any on his current med list. I will order a phosphorus level for morning labs. MMODL / IJN: [id number] /
[2021-06-07] MEDS ORDERED: ATORVASTATIN 20 MG TAB PO SCH (21:00)
[2021-06-07] MEDS ORDERED: ASPIRIN 81 MG PO SCH (21:00)
[2021-06-07] MEDS ORDERED: INSULIN DETEMIR (LEVEMIR) 100 UNIT/ML SYR SQ SCH (21:00)
[2021-06-07] MEDS: METOPROLOL TARTRATE 25 MG TAB PO SCH (21:27)
[2021-06-07 21:28] LABS: Glucose,Whole Blood 174 mg/dL (75-99)
[2021-06-07 22:07] LABS: % Iron Saturation 5.82 (15.00-50.00); Iron 19 ug/dL (65-175); Total Iron Binding Capacity 318 ug/dL (228-460)
[2021-06-07 22:15] LABS: Ferritin 72.2 ng/mL (22.0-322.0); Folate, Serum >20.00 ng/mL (4.40-31.00)
[2021-06-08 06:55] LABS: Anisocytosis Slight; Basophils % (A) 0 %; Eosinophils # (A) 0.1 k/uL (0-0.7); Eosinophils % (A) 1 %; HCT 28.3 % (39.0-53.0); Hypochromasia Marked; Lymphocytes # (A) 0.8 k/uL (1.0-4.8); Lymphocytes % (A) 10 %; MCH 29.9 pg (25.0-35.0); MCHC 31.2 g/dL (31.0-37.0); MCV 95.8 fL (80.0-100.0); Macrocytosis Slight; Mean Platelet Volume 8.8; Monocytes # (A) 0.4 k/uL (0-1.0); Monocytes % (A) 6 %; Neutrophils # (A) 6.5 k/uL (1.3-7.7); Neutrophils % (A) 81 %; Platelet Count 342 k/uL (150-450); Poikilocytosis Moderate; RBC 2.95 m/uL (4.30-5.90); RDW 16.6 % (11.5-15.5)
[2021-06-08 06:58] LABS: HGB 8.8 gm/dL (13.0-17.5)
[2021-06-08 07:05] LABS: ALT 10 U/L (4-49); AST 17 U/L (17-59); African American GFR (CKD) 31 (>60 ml/min/1.73 sqM); Albumin 2.9 g/dL (3.5-5.0); Alkaline Phosphatase 99 U/L (38-126); Anion Gap 9 mmol/L; Blood Urea Nitrogen 19 mg/dL (9-20); Carbon Dioxide 25 mmol/L (22-30); Chloride 108 mmol/L (98-107); Glucose 60 mg/dL (74-99); Non-African American GFR(CKD) 27 (>60 ml/min/1.73 sqM); Potassium 3.5 mmol/L (3.5-5.1); Sodium 142 mmol/L (137-145); Total Bilirubin 0.3 mg/dL (0.2-1.3); Total Protein 5.9 g/dL (6.3-8.2)
[2021-06-08 07:19] LABS: Glucose,Whole Blood 67 mg/dL (75-99)
[2021-06-08] MEDS: SYMBICORT 160-4.5 MCG INHALER INHALATION SCH (07:42)
[2021-06-08 08:01] LABS: Glucose,Whole Blood 88 mg/dL (75-99)
[2021-06-08] MEDS ORDERED: FOLIC ACID-VIT B COMPLEX-VIT C 1 CAP PO SCH (09:00)
[2021-06-08] MEDS ORDERED: CYANOCOBALAMIN 500 MCG TAB PO SCH (09:00)
[2021-06-08] MEDS ORDERED: amLODIPine 5 MG TAB PO SCH (09:00)
[2021-06-08] MEDS ORDERED: DULoxetine HCL 20 MG CAPSULE.DR PO SCH (09:00)
[2021-06-08] MEDS ORDERED: FUROSEMIDE 80 MG TAB PO SCH (09:00)
[2021-06-08] MEDS: INSULIN ASPART (NovoLOG) 100 UNIT/ML VIAL SQ SCH ×2 (09:27→13:32)
[2021-06-08] MEDS: GABAPENTIN 100 MG CAP PO SCH (09:55)
[2021-06-08] MEDS: METOPROLOL TARTRATE 25 MG TAB PO SCH (09:55)
[2021-06-08 11:37] LABS: Glucose,Whole Blood 201 mg/dL (75-99)
--- NOTE | 2021-06-08 12:12 | P.GSCN ---
History of Present Illness Consult date: 06/08/21 History of present illness: CHIEF COMPLAINT: Anemia HISTORY OF PRESENT ILLNESS: This is a 71-year-old male with a known history of chronic anemia and lower GI bleed. He presents to the hospital due to abnormal outpatient lab with a low hemoglobin. Her his hemoglobin on admission was 6.6. He did receive 1 unit of blood hemoglobin has gone up to 8.8. Patient denies any abdominal pain. He denies any blood in his stools or black stools. He denies any nausea or vomiting. He is on aspirin and Plavix at home. He has known history of coronary artery disease with cardiac stents. Patient's stool for occult blood is negative. His iron levels are low. Surgical consult requested regarding patient's anemia. Last EGD and colonoscopy was in 2017 had shown colon polyps and mild antral gastritis. PAST MEDICAL HISTORY: Coronary artery disease with cardiac stent, COPD, diabetes mellitus, GERD, hyperlipidemia, hypertension, end-stage renal disease on hemodialysis, lower GI bleed, history of iron deficiency anemia, benign colon polyps, PTSD and depression PAST SURGICAL HISTORY: Cholecystectomy, heart catheterization, right carotid stent MEDICATIONS: See list. ALLERGIES: See list. SOCIAL HISTORY: No illicit drug use. Smoker REVIEW OF SYSTEMS: CONSTITUTIONAL: Denies fever or chills. HEENT: Denies blurred vision, vision changes, or eye pain. Denies hemoptysis CARDIOVASCULAR: Denies chest pain or pressure. RESPIRATORY: No shortness of breath. GASTROINTESTINAL: See HPI for pertinent findings HEMATOLOGIC: Denies bleeding disorders. GENITOURINARY: Denies any blood in urine or increased urinary frequency. SKIN: Denies pruitis. Denies rash. PHYSICAL EXAM: VITAL SIGNS: Reviewed GENERAL: Well-developed in no acute distress. HEENT: No sclera icterus. Extraocular movements grossly intact. Moist buccal mucosa. Head is atraumatic, normocephalic. No nasal drainage. ABDOMEN: Soft. Nondistended. Nontender NEUROLOGIC: Alert and oriented. Cranial nerves II through XII grossly intact. LABORATORY DATA: WBC 8.0 hemoglobin 6.6 up to 8.8 platelets 342 sodium 142 potassium 3.5 BUN 19 creatinine 2.32 Iron 19 LFTs normal B12 elevated folate greater than 20 Stool for occult blood negative IMAGING: ASSESSMENT: 1. Anemia with no evidence of active bleeding. Status post 1 unit of blood 2. Iron deficiency anemia and chronic anemia 3. End-stage renal disease on hemodialysis PLAN: -No endoscopies or surgical intervention planned -Continue supportive care -Patient can be discharge from surgical standpoint -Recommend patient continue on iron supplements Thank you for this consultation Physician Salesperson Stereo Equipment note has been reviewed by physician. Signing provider agrees with the documented findings, assessment, and plan of care. Past Medical History Past Medical History: Coronary Artery Disease (CAD), Chest Pain / Angina, COPD, Diabetes Mellitus, GERD/Reflux, GI Bleed, Hyperlipidemia, Hypertension, Pneumonia, Renal Disease, Vascular Disorder Additional Past Medical History / Comment(s): IDDM type II, lower GI bleed, benign colon polyps, spouse states micro bleeds in intestine are suspected, abdominal distention comes and goes which is nearly daily, partial SBO, chronic renal disease stage IV HD MWF, iron anemia with iron transfusions (recent R upper chest mediport for infusions), PVD, stable lung nodules, chronic low back pain with bilateral sciatica, RLS, vertigo, insomnia, past agent orange exposure. Last Myocardial Infarction Date:: 03/2020 History of Any Multi-Drug Resistant Organisms: None Reported Past Surgical History: Cholecystectomy, Heart Catheterization Additional Past Surgical History / Comment(s): 03/25/20 R sublclavian mediport, R carotid stent done in [place], EGD/colonoscopyDecember 2016, endoscopic capsule, fx lt wrist -sx re-set, aortagram, bilateral leg revascularizations/stents, Left upper arm fistula Past Anesthesia/Blood Transfusion Reactions: No Reported Reaction Additional Past Anesthesia/Blood Transfusion Reaction / Comm: Pt has had blood transfusion without reaction. Date of Last Stent Placement:: 04/27/20 Past Psychological History: No Psychological Hx Reported Additional Psychological History / Comment(s): Pt resides with his spouse and their 2 dogs. Pt uses a cane to ambulate. He has a mobility scooter which he uses prn. He does not drive, his spouse drives. Pt served in the [employer] for 2 tours in [place]. Spouse states pt and herself are being trained to perform home dialysis. Smoking Status: Current every day smoker Past Alcohol Use History: None Reported Additional Past Alcohol Use History / Comment(s): Pt started smoking in 1965 and is a 1 ppd smoker. Past Drug Use History: None Reported Additional Drug Use History / Comment(s): Pt states he takes a couple puffs from a marijuana joint occasionally - Past Family History Father History Unknown: Yes Mother Family Medical History: Cancer Additional Family Medical History / Comment(s): Mother from metastatic cancer pelvic origin. Medications and Allergies Home Medications Medication Instructions Recorded Confirmed Type Ergocalciferol (Vitamin D2) 50,000 unit PO Q14D 07/18/17 06/07/21 History [Vitamin D2] Aspirin EC [Ecotrin Low Dose] 81 mg PO HS 02/10/18 06/07/21 History Cyanocobalamin [Vitamin B-12] 1,000 mcg PO DAILY 09/23/18 06/07/21 History Isosorbide Mononitrate ER [Imdur] 60 mg PO BID #60 tab.er.24h 04/21/20 06/07/21 Rx DULoxetine HCL [Cymbalta] 20 mg PO DAILY 10/27/20 06/07/21 History Folic Acid-Vit B Complex-Vit C 1 cap PO DAILY 12/19/20 06/07/21 History [Nephrocaps] Melatonin 5 mg PO HS 12/19/20 06/07/21 History Sennosides-Docusate Sodium 2 tab PO TID PRN 12/31/20 06/07/21 History [Senokot-S] Gabapentin [Neurontin] 100 mg PO TID 01/23/21 06/07/21 History Loratadine 10 mg PO DAILY 01/23/21 06/07/21 History Nitroglycerin Sl Tabs [Nitrostat] 0.4 mg SL Q5M PRN 01/23/21 06/07/21 History rOPINIRole HCL [Requip] 0.5 mg PO TID 01/23/21 06/07/21 History Budesonide-Formot 160-4.5 Mcg 2 puff INHALATION RT-BID #1 inhaler 02/01/21 06/07/21 Rx [Symbicort 160-4.5 Mcg Inhaler] Furosemide [Lasix] 80 mg PO DAILY 02/17/21 06/07/21 History Lidocaine-Prilocaine Cream [Emla 1 applic TOPICAL DIRECTED PRN 02/17/21 06/07/21 History Cream 2.5%/2.5%] Omeprazole [PriLOSEC] 40 mg PO HS #0 02/18/21 06/07/21 Rx Clopidogrel [Plavix] 75 mg PO DAILY #30 tab 04/12/21 06/07/21 Rx Metoprolol Tartrate [Lopressor] 25 mg PO BID #60 tab 04/12/21 06/07/21 Rx Atorvastatin [Lipitor] 20 mg PO HS 05/08/21 06/07/21 History Ondansetron [Zofran] 4 mg PO DAILY PRN 05/08/21 06/07/21 History Insulin Glargine [Lantus Vial] 20 unit SQ HS #0 05/10/21 06/07/21 Rx amLODIPine [Norvasc] 5 mg PO DAILY #30 tab 05/10/21 06/07/21 Rx Allergies Allergy/AdvReac Type Severity Reaction Status Date / Time Iodinated Contrast Media AdvReac CAN'T Verified 06/07/21 11:10 TAKE, RENAL DISEASE Iodine and Iodide Containing AdvReac CAN'T Verified 06/07/21 11:10 Produc TAKE, RENAL DISEASE Surgical - Exam Vital Signs Temp Pulse Resp BP Pulse Ox 97.2 F L 68 18 120/38 99 06/07/21 08:29 06/07/21 08:29 06/07/21 08:29 06/07/21 08:29 06/07/21 08:29 Results - Labs 06/08/21 06:39 06/08/21 06:39 Abnormal Lab Results - Last 24 Hours (Table) 06/07/21 06/07/21 06/07/21 Range/Units 09:33 09:37 09:37 RBC (4.30-5.90) m/uL Hgb (13.0-17.5) gm/dL Hct (39.0-53.0) % RDW (11.5-15.5) % Lymphocytes # (1.0-4.8) k/uL Chloride (98-107) mmol/L Creatinine (0.66-1.25) mg/dL Glucose (74-99) mg/dL POC Glucose (mg/dL) (75-99) mg/dL Hemoglobin A1c 6.6 H (4.0-6.0) % Iron 19 L (65-175) ug/dL % Saturation 5.82 L (15.00-50.00) Total Protein (6.3-8.2) g/dL Albumin (3.5-5.0) g/dL Vitamin B12 1472.0 H (200.0-944.0) pg/mL Crossmatch See Detail 06/07/21 06/07/21 06/07/21 Range/Units 12:47 17:03 21:27 RBC (4.30-5.90) m/uL Hgb (13.0-17.5) gm/dL Hct (39.0-53.0) % RDW (11.5-15.5) % Lymphocytes # (1.0-4.8) k/uL Chloride (98-107) mmol/L Creatinine (0.66-1.25) mg/dL Glucose (74-99) mg/dL POC Glucose (mg/dL) 294 H 220 H 174 H (75-99) mg/dL Hemoglobin A1c (4.0-6.0) % Iron (65-175) ug/dL % Saturation (15.00-50.00) Total Protein (6.3-8.2) g/dL Albumin (3.5-5.0) g/dL Vitamin B12 (200.0-944.0) pg/mL Crossmatch 06/08/21 06/08/21 06/08/21 Range/Units 06:39 06:39 07:15 RBC 2.95 L (4.30-5.90) m/uL Hgb 8.8 L D (13.0-17.5) gm/dL Hct 28.3 L (39.0-53.0) % RDW 16.6 H (11.5-15.5) % Lymphocytes # 0.8 L (1.0-4.8) k/uL Chloride 108 H (98-107) mmol/L Creatinine 2.32 H (0.66-1.25) mg/dL Glucose 60 L (74-99) mg/dL POC Glucose (mg/dL) 67 L (75-99) mg/dL Hemoglobin A1c (4.0-6.0) % Iron (65-175) ug/dL % Saturation (15.00-50.00) Total Protein 5.9 L (6.3-8.2) g/dL Albumin 2.9 L (3.5-5.0) g/dL Vitamin B12 (200.0-944.0) pg/mL Crossmatch Diabetes panel 06/07/21 06/08/21 Range/Units 09:37 06:39 Sodium 142 (137-145) mmol/L Potassium 3.5 (3.5-5.1) mmol/L Chloride 108 H (98-107) mmol/L Carbon Dioxide 25 (22-30) mmol/L BUN 19 (9-20) mg/dL Creatinine 2.32 H (0.66-1.25) mg/dL Glucose 60 L (74-99) mg/dL Hemoglobin A1c 6.6 H (4.0-6.0) % Calcium 9.0 (8.4-10.2) mg/dL AST 17 (17-59) U/L ALT 10 (4-49) U/L Alkaline Phosphatase 99 (38-126) U/L Total Protein 5.9 L (6.3-8.2) g/dL Albumin 2.9 L (3.5-5.0) g/dL Calcium panel 06/07/21 06/08/21 Range/Units 22:37 06:39 Calcium 9.0 (8.4-10.2) mg/dL Phosphorus 2.6 (2.5-4.5) mg/dL Albumin 2.9 L (3.5-5.0) g/dL Pituitary panel 06/08/21 Range/Units 06:39 Sodium 142 (137-145) mmol/L Potassium 3.5 (3.5-5.1) mmol/L Chloride 108 H (98-107) mmol/L Carbon Dioxide 25 (22-30) mmol/L BUN 19 (9-20) mg/dL Creatinine 2.32 H (0.66-1.25) mg/dL Glucose 60 L (74-99) mg/dL Calcium 9.0 (8.4-10.2) mg/dL Adrenal panel 06/08/21 Range/Units 06:39 Sodium 142 (137-145) mmol/L Potassium 3.5 (3.5-5.1) mmol/L Chloride 108 H (98-107) mmol/L Carbon Dioxide 25 (22-30) mmol/L BUN 19 (9-20) mg/dL Creatinine 2.32 H (0.66-1.25) mg/dL Glucose 60 L (74-99) mg/dL Calcium 9.0 (8.4-10.2) mg/dL Total Bilirubin 0.3 (0.2-1.3) mg/dL AST 17 (17-59) U/L ALT 10 (4-49) U/L Alkaline Phosphatase 99 (38-126) U/L Total Protein 5.9 L (6.3-8.2) g/dL Albumin 2.9 L (3.5-5.0) g/dL
[2021-06-08] MEDS ORDERED: FERROUS SULFATE 325 MG TAB PO SCH (12:30)
[2021-06-08 12:47] VITALS: PULSE 64; RESP 16; TEMP 97.6
[2021-06-08] MEDS: SODIUM CHLORIDE 0.9% 1,000 ML IV SCH (13:31)
[2021-06-08 14:57] VITALS: BP 141/68
--- NOTE | 2021-06-08 18:14 | PN ---
PROGRESS NOTE The patient is seen for followup for end-stage renal disease. He was admitted to the hospital with a hemoglobin of 6.6 g/dL. The patient has had packed RBCs transfusion. He states he is feeling much better and is being discharged. I discussed with the patient regarding previous workup including endoscopies or further evaluation for recurrent anemia. At this time he states that he is not sure if he has had a scope recently. He has not noticed any active bleeding at this point. Upon review of notes from surgery, it appears that patient's last EGD and colonoscopy was in 2017. PHYSICAL EXAMINATION: On examination today, blood pressure was 155/61, heart rate 64 per minute, patient is afebrile. Examination of the lower extremities shows no evidence of edema. The patient appears euvolemic. INSTITUTIONAL ASSET MANAGER exam grossly intact. LAB: Show hemoglobin 8.8, sodium 142, potassium 3.5. ASSESSMENT: 1. End-stage renal disease on hemodialysis on a Saturday, Saturday, Saturday schedule. 2. Recurrent anemia with possible underlying gastrointestinal bleed. Needs further GI evaluation as there is evidence of iron deficiency with iron saturation only at 5.8. The patient is receiving iron as outpatient at the dialysis unit. He is also maintained on Mircera, which is equivalent to Epogen as outpatient. 3. CKD mineral bone disorder. 4. Type 2 diabetes. PLAN: Follow up with GI as outpatient. Continue with IV iron and Epogen supplementation at the dialysis unit. MMODL / EMILYN: [id number] /
--- NOTE | 2021-06-09 07:53 | P.DS ---
Providers Date of admission: 06/07/21 11:08 Attending physician: Thierry Salcedo MD Consults: 06/07/21 11:08 Consult Physician Routine Consulting Provider: Yulissa Ivory Consult Reason/Comments: esrd Do you want consulting provider notified?: Yes 06/08/21 06:44 Consult Physician Urgent Consulting Provider: Adolfo Huerta Consult Reason/Comments: anemia ,possible GI bleed , WILLIE Do you want consulting provider notified?: Yes Primary care physician: [facility] Hospital Course: Diagnoses: Severe anemia on admission. Hemoglobin 6.6 on admission. Status post one unit of blood transfusion ESRD on hemodialysis Diabetes mellitus with hyperglycemia Nicotine dependence History of vitamin B12 deficiency on replacement therapy GERD Hyperlipidemia Hypertension COPD, no acute exacerbation History of Coronary Artery Disease Chronic low back pain History of vertigo Hospital course: This is a pleasant 71 years old male with past medical history of end-stage renal disease on hemodialysis, COPD, Diabetes Mellitus, GERD/Reflux, GI Bleed, Hyperlipidemia, Hypertension, chronic low back pain, vertigo Patient was sent from his Dr. office for his low hemoglobin. Patient still denies any symptoms. No chest pain or dyspnea. No abdominal pain or nausea vomiting. No diarrhea. No headache or dizziness or weakness. His hemoglobin is 6.6 went up to 8.8 upon 1 unit of blood transfusion. 6+ and 9 . There was no GI covered in this facility this week and next week therefore general surgery team were consulted who recommended no endoscopy or surgical intervention and to continue supportive care and cleared the patient for discharge. Membership Coordinator followed the case for dialysis. Patient on the day of discharge was walking freely in his room, asymptomatic. Other than increased frequency of urination his only symptom. vitals stable. And he agrees to go home and follow-up as an outpatient. Patient polyuria showing a glucosuria in his urine analysis. Patient needed 10 extra units of NovoLog yesterday. He is on Lantus 20 units at bedtime. NovoLog 3 units with meals is admitted for the patient and he agrees. Patient was instructed to monitor his glucose closely 4 times a day and to come to ED if his glucose less than 70 or more than 400. Patient was cleared for discharge by all consultants, surgery and nephrology Problems and management plan were discussed with the patient and he verbalized understanding and acceptance Patient was found stable and can be discharged home however he needs follow-up as an outpatient. Patient [facility] and patient agrees With appointment made for him on 06/16 Also patient agrees with the appointments made for him with Dr. Ivory on 06/26" surgeon Dr. Anderson on 06/15 and states he will follow-up Physical exam Gen: patient is a AAOx3, no distress CVS: S1-S2, RRR, no murmur Lungs: B/L CTA, no wheezing Abdomen: soft, no distention, no tenderness, positive bowel sounds Extremity: no leg edema or induration Time spent more than 35 minutes Patient Condition at Discharge: Fair Plan - Discharge Summary Discharge Rx Participant: No New Discharge Prescriptions: New Ferrous Sulfate [Iron (65 MG Elemental)] 325 mg PO BID-W/MEALS #60 tab Insulin Aspart [NovoLOG] 3 units SQ AC-TID #10 ml Continue Ergocalciferol (Vitamin D2) [Vitamin D2] 50,000 unit PO Q14D Aspirin EC [Ecotrin Low Dose] 81 mg PO HS Isosorbide Mononitrate ER [Imdur] 60 mg PO BID #60 tab.er.24h DULoxetine HCL [Cymbalta] 20 mg PO DAILY Melatonin 5 mg PO HS Sennosides-Docusate Sodium [Senokot-S] 2 tab PO TID PRN PRN Reason: Constipation Nitroglycerin Sl Tabs [Nitrostat] 0.4 mg SL Q5M PRN PRN Reason: Chest Pain Gabapentin [Neurontin] 100 mg PO TID Furosemide [Lasix] 80 mg PO DAILY Insulin Glargine [Lantus Vial] 20 unit SQ HS #0 rOPINIRole HCL [Requip] 0.5 mg PO TID Budesonide-Formot 160-4.5 Mcg [Symbicort 160-4.5 Mcg Inhaler] 2 puff INHALATION RT-BID #1 inhaler Lidocaine-Prilocaine Cream [Emla Cream 2.5%/2.5%] 1 applic TOPICAL DIRECTED PRN PRN Reason: dialysis Omeprazole [PriLOSEC] 40 mg PO HS #0 Metoprolol Tartrate [Lopressor] 25 mg PO BID #60 tab Clopidogrel [Plavix] 75 mg PO DAILY #30 tab Atorvastatin [Lipitor] 20 mg PO HS Ondansetron [Zofran] 4 mg PO DAILY PRN PRN Reason: Nausea And Vomiting amLODIPine [Norvasc] 5 mg PO DAILY #30 tab Discontinued Cyanocobalamin [Vitamin B-12] 1,000 mcg PO DAILY Folic Acid-Vit B Complex-Vit C [Nephrocaps] 1 cap PO DAILY Loratadine 10 mg PO DAILY Discharge Medication List Ergocalciferol (Vitamin D2) [Vitamin D2] 50,000 unit PO Q14D 07/18/17 [History] Aspirin EC [Ecotrin Low Dose] 81 mg PO HS 02/10/18 [History] Isosorbide Mononitrate ER [Imdur] 60 mg PO BID #60 tab.er.24h 04/21/20 [Rx] DULoxetine HCL [Cymbalta] 20 mg PO DAILY 10/27/20 [History] Melatonin 5 mg PO HS 12/19/20 [History] Sennosides-Docusate Sodium [Senokot-S] 2 tab PO TID PRN 12/31/20 [History] Gabapentin [Neurontin] 100 mg PO TID 01/23/21 [History] Nitroglycerin Sl Tabs [Nitrostat] 0.4 mg SL Q5M PRN 01/23/21 [History] rOPINIRole HCL [Requip] 0.5 mg PO TID 01/23/21 [History] Budesonide-Formot 160-4.5 Mcg [Symbicort 160-4.5 Mcg Inhaler] 2 puff INHALATION RT-BID #1 inhaler 02/01/21 [Rx] Furosemide [Lasix] 80 mg PO DAILY 02/17/21 [History] Lidocaine-Prilocaine Cream [Emla Cream 2.5%/2.5%] 1 applic TOPICAL DIRECTED PRN 02/17/21 [History] Omeprazole [PriLOSEC] 40 mg PO HS #0 02/18/21 [Rx] Clopidogrel [Plavix] 75 mg PO DAILY #30 tab 04/12/21 [Rx] Metoprolol Tartrate [Lopressor] 25 mg PO BID #60 tab 04/12/21 [Rx] Atorvastatin [Lipitor] 20 mg PO HS 05/08/21 [History] Ondansetron [Zofran] 4 mg PO DAILY PRN 05/08/21 [History] Insulin Glargine [Lantus Vial] 20 unit SQ HS #0 05/10/21 [Rx] amLODIPine [Norvasc] 5 mg PO DAILY #30 tab 05/10/21 [Rx] Ferrous Sulfate [Iron (65 MG Elemental)] 325 mg PO BID-W/MEALS #60 tab 06/08/21 [Rx] Insulin Aspart [NovoLOG] 3 units SQ AC-TID #10 ml 06/08/21 [Rx] Follow up Appointment(s)/Referral(s): Yulissa Ivory MD [STAFF PHYSICIAN] - 06/26/21 9:00 am [facility] [Primary Care Provider] - 06/16/21 4:00 pm Adolfo Huerta MD [STAFF PHYSICIAN] - 06/15/21 3:10 pm Patient Instructions/Handouts: Iron Supplements (By mouth), Type 1 Diabetes in Adults: New Diagnosis (DC), Anemia (DC) Activity/Diet/Wound Care/Special Instructions: Renal diet Activity is restricted till you see your doctor Ok to restart Plavix and Aspirin INSULIN 3 UNITS WITH EACH MEAL CHECK YOUR BLOOD SUGAR WITH EACH MEAL AND KEEP A LOG AND TAKE TO YOUR DR'S APPOINTMENT. Discharge Disposition: HOME SELF-CARE
== END 2021-06-08 16:51 | disposition home or self-care (01) | DRG 811 ==
LOC: EC 08:28 → 5NMEDONC 11:08
PROVIDERS: ADMIT Internal Medicine; ATTEND Internal Medicine
PROC: 30233N1 Transfusion of Nonautologous Red Blood Cells into Peripheral Vein, Percutaneous Approach (ICD-10-PCS; principal; 2021-06-07)
PROC: 5A1D70Z Performance of Urinary Filtration, Intermittent, Less than 6 Hours Per Day (ICD-10-PCS; 2021-06-07)
DX: D62 Acute posthemorrhagic anemia (principal); N18.6 End stage renal disease; K92.2 Gastrointestinal hemorrhage, unspecified; I12.0 Hypertensive chronic kidney disease with stage 5 chronic kidney disease or end stage renal disease; D50.9 Iron deficiency anemia, unspecified; E11.22 Type 2 diabetes mellitus with diabetic chronic kidney disease; E11.51 Type 2 diabetes mellitus with diabetic peripheral angiopathy without gangrene; E11.65 Type 2 diabetes mellitus with hyperglycemia; E78.5 Hyperlipidemia, unspecified; F32.9 Major depressive disorder, single episode, unspecified; F43.10 Post-traumatic stress disorder, unspecified; G89.29 Other chronic pain; I25.10 Atherosclerotic heart disease of native coronary artery without angina pectoris; I25.2 Old myocardial infarction; J44.9 Chronic obstructive pulmonary disease, unspecified; M89.9 Disorder of bone, unspecified; Z79.02 Long term (current) use of antithrombotics/antiplatelets; Z79.4 Long term (current) use of insulin; Z79.51 Long term (current) use of inhaled steroids; Z79.82 Long term (current) use of aspirin; Z79.899 Other long term (current) drug therapy; Z80.9 Family history of malignant neoplasm, unspecified; Z86.010 Personal history of colon polyps; Z95.5 Presence of coronary angioplasty implant and graft; Z99.2 Dependence on renal dialysis; F17.210 Nicotine dependence, cigarettes, uncomplicated; Z71.6 Tobacco abuse counseling; Z20.822 Contact with and (suspected) exposure to COVID-19; E53.8 Deficiency of other specified B group vitamins
CPT/HCPCS: 36415; 80048; 80053; 81001; 82272; 82607; 82728; 82746; 83036; 83540; 83550; 83605; 83735; 84100; 85025; 85610; 85730; 86850; 86900; 86901; 86920; 87635; 90935; 93005; 94640; 99285

== ENCOUNTER 2021-06-28 15:17 | Inpatient (IN) | payer OTHER, MEDICARE ==
--- NOTE | 2021-06-28 15:52 | ED ---
General Adult HPI - General Chief complaint: Recheck/Abnormal Lab/Rx Stated complaint: Abn labs Time Seen by Provider: 06/28/21 15:37 Source: patient, family, RN notes reviewed, old records reviewed Mode of arrival: wheelchair Limitations: no limitations - History of Present Illness Initial comments: 71-year-old male presenting for evaluation of anemia. Patient is end-stage renal patient on hemodialysis, he states that at hemodialysis today they noted his hemoglobin to be 5.1 was sent to the emergency department for transfusion. He has dealt with chronic anemia and has had multiple blood transfusions in the past. He denies current bright red rectal bleeding or melena. He states that he has had workup for gastrointestinal hemorrhage in the past. He complains of generalized weakness and fatigue. No central chest pain. [facility]. - Related Data Home Medications Medication Instructions Recorded Confirmed Ergocalciferol (Vitamin D2) 50,000 unit PO Q14D 07/18/17 06/07/21 [Vitamin D2] Aspirin EC [Ecotrin Low Dose] 81 mg PO HS 02/10/18 06/07/21 DULoxetine HCL [Cymbalta] 20 mg PO DAILY 10/27/20 06/07/21 Melatonin 5 mg PO HS 12/19/20 06/07/21 Sennosides-Docusate Sodium 2 tab PO TID PRN 12/31/20 06/07/21 [Senokot-S] Gabapentin [Neurontin] 100 mg PO TID 01/23/21 06/07/21 Nitroglycerin Sl Tabs [Nitrostat] 0.4 mg SL Q5M PRN 01/23/21 06/07/21 rOPINIRole HCL [Requip] 0.5 mg PO TID 01/23/21 06/07/21 Furosemide [Lasix] 80 mg PO DAILY 02/17/21 06/07/21 Lidocaine-Prilocaine Cream [Emla 1 applic TOPICAL DIRECTED PRN 02/17/21 06/07/21 Cream 2.5%/2.5%] Atorvastatin [Lipitor] 20 mg PO HS 05/08/21 06/07/21 Ondansetron [Zofran] 4 mg PO DAILY PRN 05/08/21 06/07/21 Previous Rx's Medication Instructions Recorded Isosorbide Mononitrate ER [Imdur] 60 mg PO BID #60 tab.er.24h 04/21/20 Budesonide-Formot 160-4.5 Mcg 2 puff INHALATION RT-BID #1 inhaler 02/01/21 [Symbicort 160-4.5 Mcg Inhaler] Omeprazole [PriLOSEC] 40 mg PO HS #0 02/18/21 Clopidogrel [Plavix] 75 mg PO DAILY #30 tab 04/12/21 Metoprolol Tartrate [Lopressor] 25 mg PO BID #60 tab 04/12/21 Insulin Glargine [Lantus Vial] 20 unit SQ HS #0 05/10/21 amLODIPine [Norvasc] 5 mg PO DAILY #30 tab 05/10/21 Ferrous Sulfate [Iron (65 MG 325 mg PO BID-W/MEALS #60 tab 06/08/21 Elemental)] Insulin Aspart [NovoLOG] 3 units SQ AC-TID #10 ml 06/08/21 Allergies Allergy/AdvReac Type Severity Reaction Status Date / Time Iodinated Contrast Media AdvReac CAN'T Verified 06/28/21 15:18 TAKE, RENAL DISEASE Iodine and Iodide Containing AdvReac CAN'T Verified 06/28/21 15:18 Produc TAKE, RENAL DISEASE Review of Systems ROS Statement: Those systems with pertinent positive or pertinent negative responses have been documented in the HPI. ROS Other: All systems not noted in ROS Statement are negative. Past Medical History Past Medical History: Coronary Artery Disease (CAD), Chest Pain / Angina, COPD, Diabetes Mellitus, GERD/Reflux, GI Bleed, Hyperlipidemia, Hypertension, Pneumonia, Renal Disease, Vascular Disorder Additional Past Medical History / Comment(s): IDDM type II, lower GI bleed, benign colon polyps, spouse states micro bleeds in intestine are suspected, abdominal distention comes and goes which is nearly daily, partial SBO, chronic renal disease stage IV HD MWF, iron anemia with iron transfusions (recent R upper chest mediport for infusions), PVD, stable lung nodules, chronic low back pain with bilateral sciatica, RLS, vertigo, insomnia, past agent orange exposure. Last Myocardial Infarction Date:: 03/2020 History of Any Multi-Drug Resistant Organisms: None Reported Past Surgical History: Cholecystectomy, Heart Catheterization Additional Past Surgical History / Comment(s): 03/25/20 R sublclavian mediport, R carotid stent done in [place], EGD/colonoscopyDecember 2017, endoscopic capsule, fx lt wrist -sx re-set, aortagram, bilateral leg revascularizations/stents, Left upper arm fistula Past Anesthesia/Blood Transfusion Reactions: No Reported Reaction Additional Past Anesthesia/Blood Transfusion Reaction / Comment(s): Pt has had blood transfusion without reaction. Date of Last Stent Placement:: 04/27/20 Past Psychological History: No Psychological Hx Reported Smoking Status: Current every day smoker Past Alcohol Use History: None Reported Past Drug Use History: None Reported - Past Family History Father History Unknown: Yes Mother Family Medical History: Cancer Additional Family Medical History / Comment(s): Mother from metastatic cancer pelvic origin. General Exam Limitations: no limitations General appearance: alert, in no apparent distress Head exam: Present: atraumatic, normocephalic Eye exam: Present: normal appearance, PERRL ENT exam: Present: normal exam Neck exam: Present: normal inspection. Absent: tenderness, meningismus Respiratory exam: Present: normal lung sounds bilaterally. Absent: respiratory distress, wheezes Cardiovascular Exam: Present: regular rate, normal rhythm GI/Abdominal exam: Present: soft. Absent: distended, tenderness, guarding Extremities exam: Present: normal inspection, normal capillary refill. Absent: pedal edema Neurological exam: Present: alert, oriented X3. Absent: motor sensory deficit Skin exam: Present: pallor Course Vital Signs 06/28/21 06/28/21 15:19 16:28 Temperature 98.1 F Pulse Rate 80 74 Respiratory 20 18 Rate Blood Pressure 122/49 128/58 O2 Sat by Pulse 100 98 Oximetry - Reevaluation(s) Reevaluation #1: 06/28/21 16:18 Patient has an ischemic EKG, possible posterior ischemia. No active chest pain. I did discuss this with Dr. Sims who agrees that the patient's best course of action at this time is transfusion. EKG Findings - EKG Comments: EKG Findings:: EKG: Normal sinus rhythm, significant ischemic changes in the precordial leads as well as T-wave inversion in aVL rate of 63, OR interval 156, QRS duration 100, QTC 448. Medical Decision Making - Medical Decision Making 71-year-old who had presented with anemia from dialysis. Hemoglobin was 5.1. His repeated in the emergency department and is 5.1. He is transfused 2 units. Patient complaining of generalized weakness and fatigue, no other acute complaints. Case discussed with Dr. Ndiaye who will admit. Repeat hemoglobin will be ordered for the morning after transfusion. - Lab Data Result diagrams: 06/28/21 16:00 06/28/21 16:00 Lab Results 06/28/21 06/28/21 06/28/21 Range/Units 16:00 16:00 16:00 WBC 8.4 (3.8-10.6) k/uL RBC 1.94 L (4.30-5.90) m/uL Hgb 5.1 L* D (13.0-17.5) gm/dL Hct 16.3 L* (39.0-53.0) % MCV 84.1 D (80.0-100.0) fL MCH 26.0 (25.0-35.0) pg MCHC 31.0 (31.0-37.0) g/dL RDW 16.8 H (11.5-15.5) % Plt Count 376 (150-450) k/uL MPV 8.1 Neutrophils % 85 % Lymphocytes % 7 % Monocytes % 5 % Eosinophils % 1 % Basophils % 0 % Neutrophils # 7.1 (1.3-7.7) k/uL Lymphocytes # 0.6 L (1.0-4.8) k/uL Monocytes # 0.4 (0-1.0) k/uL Eosinophils # 0.1 (0-0.7) k/uL Basophils # 0.0 (0-0.2) k/uL Hypochromasia Marked Poikilocytosis Moderate Anisocytosis Slight PT 10.1 (9.0-12.0) sec INR 0.9 (<1.2) APTT 21.4 L (22.0-30.0) sec Sodium 132 L (137-145) mmol/L Potassium 3.6 (3.5-5.1) mmol/L Chloride 96 L (98-107) mmol/L Carbon Dioxide 29 (22-30) mmol/L Anion Gap 7 mmol/L BUN 29 H (9-20) mg/dL Creatinine 2.23 H (0.66-1.25) mg/dL Est GFR (CKD-EPI)AfAm 33 (>60 ml/min/1.73 sqM) Est GFR (CKD-EPI)NonAf 28 (>60 ml/min/1.73 sqM) Glucose 230 H (74-99) mg/dL Calcium 8.6 (8.4-10.2) mg/dL Magnesium 1.7 (1.6-2.3) mg/dL Total Bilirubin 0.2 (0.2-1.3) mg/dL AST 17 (17-59) U/L ALT 12 (4-49) U/L Alkaline Phosphatase 88 (38-126) U/L Total Protein 5.7 L (6.3-8.2) g/dL Albumin 3.0 L (3.5-5.0) g/dL Blood Type Blood Type Recheck Bld Type Recheck Status Antibody Screen Crossmatch Spec Expiration Date 06/28/21 Range/Units 16:00 WBC (3.8-10.6) k/uL RBC (4.30-5.90) m/uL Hgb (13.0-17.5) gm/dL Hct (39.0-53.0) % MCV (80.0-100.0) fL MCH (25.0-35.0) pg MCHC (31.0-37.0) g/dL RDW (11.5-15.5) % Plt Count (150-450) k/uL MPV Neutrophils % % Lymphocytes % % Monocytes % % Eosinophils % % Basophils % % Neutrophils # (1.3-7.7) k/uL Lymphocytes # (1.0-4.8) k/uL Monocytes # (0-1.0) k/uL Eosinophils # (0-0.7) k/uL Basophils # (0-0.2) k/uL Hypochromasia Poikilocytosis Anisocytosis PT (9.0-12.0) sec INR (<1.2) APTT (22.0-30.0) sec Sodium (137-145) mmol/L Potassium (3.5-5.1) mmol/L Chloride (98-107) mmol/L Carbon Dioxide (22-30) mmol/L Anion Gap mmol/L BUN (9-20) mg/dL Creatinine (0.66-1.25) mg/dL Est GFR (CKD-EPI)AfAm (>60 ml/min/1.73 sqM) Est GFR (CKD-EPI)NonAf (>60 ml/min/1.73 sqM) Glucose (74-99) mg/dL Calcium (8.4-10.2) mg/dL Magnesium (1.6-2.3) mg/dL Total Bilirubin (0.2-1.3) mg/dL AST (17-59) U/L ALT (4-49) U/L Alkaline Phosphatase (38-126) U/L Total Protein (6.3-8.2) g/dL Albumin (3.5-5.0) g/dL Blood Type B Positive Blood Type Recheck B Pos Bld Type Recheck Status No Antibody Screen NEGATIVE Crossmatch See Detail Spec Expiration Date 07/01/20212299 Disposition Clinical Impression: Symptomatic anemia, ESRD (end stage renal disease) Disposition: ADMITTED IP TO THIS [facility] Condition: Stable Is patient prescribed a controlled substance at d/c from ED?: No Referrals: [facility] [Primary Care Provider] - 1-2 days Decision to Admit Reason: Admit from EC Decision Date: 06/28/21 Decision Time: 17:03
[2021-06-28 16:23] LABS: Anisocytosis Slight; Basophils % (A) 0 %; Eosinophils # (A) 0.1 k/uL (0-0.7); Eosinophils % (A) 1 %; Hypochromasia Marked; Lymphocytes # (A) 0.6 k/uL (1.0-4.8); Lymphocytes % (A) 7 %; MCV 84.1 fL (80.0-100.0); Mean Platelet Volume 8.1; Monocytes # (A) 0.4 k/uL (0-1.0); Monocytes % (A) 5 %; Neutrophils # (A) 7.1 k/uL (1.3-7.7); Neutrophils % (A) 85 %; Platelet Count 376 k/uL (150-450); Poikilocytosis Moderate; RBC 1.94 m/uL (4.30-5.90); RDW 16.8 % (11.5-15.5); WBC 8.4 k/uL (3.8-10.6)
[2021-06-28 16:25] LABS: Calcium 8.6 mg/dL (8.4-10.2); HGB 5.1 gm/dL (13.0-17.5); Magnesium 1.7 mg/dL (1.6-2.3); Potassium 3.6 mmol/L (3.5-5.1); Total Bilirubin 0.2 mg/dL (0.2-1.3); Total Protein 5.7 g/dL (6.3-8.2)
[2021-06-28 16:26] LABS: HCT 16.3 % (39.0-53.0)
[2021-06-28 16:32] LABS: INR 0.9 (<1.2); Partial Thromboplastin Time 21.4 sec (22.0-30.0); Prothrombin Time 10.1 sec (9.0-12.0)
[2021-06-28] MEDS ORDERED: NALOXONE 0.4 MG/ML 1 ML VIAL IV PRN (17:01)
[2021-06-28] MEDS ORDERED: HYDROcodone/APAP 5-325MG 1 EACH TAB PO STA (17:46)
[2021-06-28] MEDS ORDERED: MORPHINE SULFATE 2 MG/ML SYRINGE IVP STA (17:55)
[2021-06-28] MEDS ORDERED: LORazepam 2 MG/ML INJ IV STA (18:27)
[2021-06-28] MEDS ORDERED: FUROSEMIDE 10 MG/ML 4 ML VIAL IV STA (18:29)
--- NOTE | 2021-06-28 19:18 | XR ---
EXAMINATION TYPE: XR chest 1V portable DATE OF EXAM: 06/28/2021 COMPARISON: 06/27/2021 HISTORY: Short of breath TECHNIQUE: Single view FINDINGS: Heart is enlarged. There is right central venous catheter with tip in the right atrium. The re is pulmonary interstitial and airspace edema. There is blunting of the right costophrenic angle. T here is airspace infiltrate right lower lobe. There are chest leads. IMPRESSION: Increasing pleural fluid and pulmonary edema compared to yesterday and consistent with wo rsening congestive heart failure or RDS.
--- NOTE | 2021-06-28 19:37 | HP ---
HISTORY AND PHYSICAL DATE OF SERVICE: 06/28/2021. CHIEF COMPLAINTS: Weakness and anemia. HISTORY OF PRESENT ILLNESS: This 71-year-old gentleman with a past medical history of multiple medical problems including CAD, history of COPD, diabetes type 2, history of GI bleed, hypertension, hyperlipidemia, history of pneumonia, also had chronic renal failure. Patient also is receiving hemodialysis Saturday, Saturday, Saturday. The patient also had a partial small- bowel obstruction and multiple other medical problems also. The patient complaining of severe weakness and the patient came to [facility]. Hemoglobin found to be 5.7. Severe anemia. Patient is extremely pale and tired and weak. The patient admitted for further evaluation and treatment. During one of the previous admissions, Hematology/Oncology also consulted for evaluation of the anemia and the patient had multiple workups previously and the patient also received multiple transfusions also. There is no history of fever, rigors, chills at this time. Some melena was reported. PAST MEDICAL HISTORY: History of CAD, history of chest pain, COPD, diabetes, GERD, GI bleed, hypertension, hyperlipidemia. MEDICATIONS: Prior to admission included home medications are not confirmed include: Norvasc, Senokot-S, Zofran, Prilosec, Nitrostat, Lopressor, EMLA cream, Imdur, NovoLog, Lasix, Cymbalta, Plavix. Lipitor, Ecotrin, doses reviewed. ALLERGIES: IODINATED CONTRAST DYE. FAMILY HISTORY: History of cancer in the family, metastatic cancer. SOCIAL HISTORY: History of smoking. REVIEW OF SYSTEMS: ENT: Diminished vision. Diminished hearing. CARDIOVASCULAR as mentioned earlier. GI as mentioned earlier. : As mentioned earlier. NERVOUS SYSTEM: No numbness or weakness. ALLERGY/IMMUNOLOGY: No asthma or hayfever. MUSCULOSKELETAL: As mentioned earlier. HEMATOLOGY/ONCOLOGY: As mentioned earlier. ENDOCRINE: As mentioned earlier. CONSTITUTIONAL: As mentioned earlier. DERMATOLOGY: Negative. RHEUMATOLOGY: Negative. PSYCHIATRIC: As mentioned earlier. PHYSICAL EXAMINATION: Patient is alert, oriented x3. Pulse is 90. Blood pressure is 152/60, respiration 26, temperature is normal at 98.4. Pulse ox 100 percent on room air. HEENT: Conjunctivae pale. Oral mucosa is pale. NECK is no jugular venous distention. No carotid bruit. No lymph node enlargement. CARDIOVASCULAR: S1, S2 muffled. RESPIRATORY: Breath sounds diminished in the bases. A few scattered rhonchi. ABDOMEN: Soft, nontender. No mass palpable. LEGS: Minimal edema. NERVOUS SYSTEM: Higher functions as mentioned earlier. Moves all 4 limbs. Mild diffuse weakness. SKIN: Yellowish tinge. LYMPHATICS: No lymph nodes palpable in the neck, axillae or groin. JOINTS: No active deforming arthropathy. Examination of the left arm AV fistula noted. LABS: WBC 8.4, hemoglobin 5.1, MCV is 84.1, and sodium is 132, potassium 3.8, creatinine is 2.23, albumin is 5. ASSESSMENT: 1. Anemia, possibly acute on chronic. Rule out acute GI blood loss anemia. 2. Chronic end stage renal disease on hemodialysis. 3. Hyponatremia. 4. Elevated random glucose. 5. History of coronary artery disease. 6. History of chronic obstructive pulmonary disease. 7. Diabetes mellitus, type 2. 8. Gastroesophageal reflux disease. 9. History of gastrointestinal bleed. 10.Hypertension. 11.Hyperlipidemia. 12.History of pneumonia. 13.History of vascular disorder. 14.History of benign colonic polyps. 15.History of suspected intestinal bleed. 16.History of partial small bowel obstruction. 17.History of restless legs syndrome. 18.History of vertigo. 19.History of cholecystectomy. 20.History of continued ongoing nicotine dependence. 21.FULL CODE. RECOMMENDATIONS AND DISCUSSION: This 71-year-old gentleman who presented with multiple complex medical issues, we will monitor the patient closely. Continue the current medications, and symptomatic treatment. Transfuse at least 2 units transfusion carefully and nephrology consultations. Continue hemodialysis. Resume the home medications. I would also recommend surgical evaluation. Prognosis guarded. Further recommendations to follow. Apparently, Gastroenterology is not available and none of the hospitals in [facility] is also not accepting patients according to the shelter case manager. We had a patient from [facility] waiting for several days on the floor waiting for transfer and possible bed. Otherwise, we will continue to monitor and prognosis guarded. Further recommendations to follow. See orders for details. A copy of this dictation is being forwarded to Dr. Myles who is following the patient in the [facility]. MMODL / IJN: [id number] /
[2021-06-28 23:46] LABS: Glucose,Whole Blood 256 mg/dL (75-99)
[2021-06-29] MEDS: ATORVASTATIN 20 MG TAB PO SCH ×2 (00:23→21:09)
[2021-06-29] MEDS: METOPROLOL TARTRATE 25 MG TAB PO SCH ×3 (00:24→21:09)
[2021-06-29] MEDS: GABAPENTIN 100 MG CAP PO SCH ×4 (00:24→21:09)
[2021-06-29] MEDS: ASPIRIN 81 MG PO SCH ×2 (00:24→21:07)
[2021-06-29] MEDS: ISOSORBIDE MONONITRATE ER 60 MG TAB.ER.24H PO SCH ×3 (00:24→21:21)
[2021-06-29] MEDS: INSULIN DETEMIR (LEVEMIR) 100 UNIT/ML SYR SQ SCH ×2 (01:11→21:10)
[2021-06-29 03:07] LABS: Anisocytosis Slight; HCT 22.6 % (39.0-53.0); Hypochromasia Moderate; MCH 26.4 pg (25.0-35.0); MCHC 31.2 g/dL (31.0-37.0); MCV 84.8 fL (80.0-100.0); Mean Platelet Volume 8.4; Platelet Count 367 k/uL (150-450); Poikilocytosis Moderate; RBC 2.67 m/uL (4.30-5.90); RDW 16.9 % (11.5-15.5); WBC 9.7 k/uL (3.8-10.6)
[2021-06-29 06:16] LABS: Glucose,Whole Blood 140 mg/dL (75-99)
[2021-06-29 06:41] LABS: Anisocytosis Slight; Basophils % (A) 0 %; Eosinophils # (A) 0.1 k/uL (0-0.7); Eosinophils % (A) 1 %; HCT 24.5 % (39.0-53.0); HGB 7.6 gm/dL (13.0-17.5); Hypochromasia Marked; Lymphocytes # (A) 0.5 k/uL (1.0-4.8); Lymphocytes % (A) 6 %; MCH 26.8 pg (25.0-35.0); MCHC 30.9 g/dL (31.0-37.0); MCV 86.7 fL (80.0-100.0); Mean Platelet Volume 8.4; Monocytes # (A) 0.5 k/uL (0-1.0); Monocytes % (A) 6 %; Neutrophils # (A) 7.6 k/uL (1.3-7.7); Neutrophils % (A) 85 %; Platelet Count 369 k/uL (150-450); Poikilocytosis Moderate; RBC 2.83 m/uL (4.30-5.90); RDW 16.7 % (11.5-15.5); WBC 8.9 k/uL (3.8-10.6)
[2021-06-29 07:09] LABS: Calcium 8.7 mg/dL (8.4-10.2); Potassium 4.1 mmol/L (3.5-5.1)
[2021-06-29] MEDS: INSULIN ASPART (NovoLOG) 100 UNIT/ML VIAL SQ SCH ×7 (09:28→21:09)
[2021-06-29] MEDS: PANTOPRAZOLE 40 MG/10 ML VIAL IV SCH (09:49)
[2021-06-29 11:32] LABS: Glucose,Whole Blood 63 mg/dL (75-99)
[2021-06-29 11:47] LABS: Glucose,Whole Blood 82 mg/dL (75-99)
[2021-06-29] MEDS: amLODIPine 5 MG TAB PO SCH (12:36)
[2021-06-29] MEDS: DULoxetine HCL 20 MG CAPSULE.DR PO SCH (12:36)
[2021-06-29] MEDS: TAMSULOSIN 0.4 MG CAP.ER.24H PO SCH (12:36)
--- NOTE | 2021-06-29 13:47 | P.GSCN ---
History of Present Illness Consult date: 06/29/21 History of present illness: CHIEF COMPLAINT: Anemia HISTORY OF PRESENT ILLNESS: This is a 71-year-old male with a known history of end-stage renal disease and chronic anemia. He was at hemodialysis yesterday and was found to have a hemoglobin of 5.1 and was sent to the emergency room for transfusion. He has required blood transfusions in the past. He denies any re ctal bleeding or melena. He has been weak and fatigued. Patient has had capsule endoscopy in the past and what sounds like possible AVMs. He was just recently hospitalized in May for anemia with no active bleeding. Endoscopies were not completed at that time because patient was on Plavix and aspirin. Last EGD and colonoscopy was in 2017 with gastritis and colon polyps. Patient does report occasionally he'll have a lower abdominal pain resolves on its own. Hemoglobin 5.1 on admission up to 7.6 after 2 units of blood. Patient's last cardiac stent was placed in 04/10/2021. PAST MEDICAL HISTORY: End-stage renal disease on hemodialysis, myocardial infarction, coronary artery disease cardiac stents, COPD, diabetes mellitus, GERD, hyperlipidemia, hypertension, lower GI bleed, iron deficiency anemia, benign colon polyps, PTSD and depres PAST SURGICAL HISTORY: Cholecystectomy, heart catheterization with stents, right carotid artery stent MEDICATIONS: See list. ALLERGIES: See list. SOCIAL HISTORY: No illicit drug use. REVIEW OF SYSTEMS: CONSTITUTIONAL: Denies fever or chills. HEENT: Denies blurred vision, vision changes, or eye pain. Denies hemoptysis CARDIOVASCULAR: Denies chest pain or pressure. RESPIRATORY: No shortness of breath. GASTROINTESTINAL: See HPI for pertinent findings HEMATOLOGIC: Denies bleeding disorders. GENITOURINARY: Denies any blood in urine or increased urinary frequency. SKIN: Denies pruitis. Denies rash. PHYSICAL EXAM: VITAL SIGNS: Reviewed GENERAL: Well-developed in no acute distress. HEENT: No sclera icterus. Extraocular movements grossly intact. Moist buccal mucosa. Head is atraumatic, normocephalic. No nasal drainage. ABDOMEN: Soft. Nondistended. Nontender NEUROLOGIC: Alert and oriented. Cranial nerves II through XII grossly intact. LABORATORY DATA: WBC is 8.9 hemoglobin 5.1 up to 7.6 platelets 369 sodium 133 BUN 40 creatinine 2.95 IMAGING: ASSESSMENT: 1. Anemia with no evidence of active bleeding. Patient is status post 2 units of blood 2. History of iron deficiency anemia and anemia of chronic kidney disease 3. End-stage renal disease on hemodialysis 4. Coronary artery disease with cardiac stents. Last stent placed in March 2021 and on Plavix at home PLAN: -Patient scheduled for EGD on 07/03/[address] Huerta -Continue to hold Plavix -Continue to monitor for any signs or symptoms of bleeding -Continue to monitor hemoglobin. -Check stool for occult blood Thank you for this consultation Physician Language Pathologist note has been reviewed by physician. Signing provider agrees with the documented findings, assessment, and plan of care. Past Medical History Past Medical History: Coronary Artery Disease (CAD), Chest Pain / Angina, COPD, Diabetes Mellitus, GERD/Reflux, GI Bleed, Hyperlipidemia, Hypertension, Pneumonia, Renal Disease, Vascular Disorder Additional Past Medical History / Comment(s): IDDM type II, lower GI bleed, benign colon polyps, spouse states micro bleeds in intestine are suspected, abdominal distention comes and goes which is nearly daily, partial SBO, chronic renal disease stage IV HD MWF, iron anemia with iron transfusions (recent R upper chest mediport for infusions), PVD, stable lung nodules, chronic low back pain with bilateral sciatica, RLS, vertigo, insomnia, past agent orange exposure. Last Myocardial Infarction Date:: 03/2020 History of Any Multi-Drug Resistant Organisms: None Reported Past Surgical History: Cholecystectomy, Heart Catheterization Additional Past Surgical History / Comment(s): 03/25/20 R sublclavian mediport, R carotid stent done in [place], EGD/colonoscopyDecember 2016, endoscopic capsule, fx lt wrist -sx re-set, aortagram, bilateral leg revasculariza tions/stents, Left upper arm fistula Past Anesthesia/Blood Transfusion Reactions: No Reported Reaction Additional Past Anesthesia/Blood Transfusion Reaction / Comm: Pt has had blood transfusion without reaction. Date of Last Stent Placement:: 04/27/20 Past Psychological History: No Psychological Hx Reported Additional Psychological History / Comment(s): Pt resides with his spouse and their 2 dogs. Pt uses a cane to ambulate. He has a mobility scooter which he uses prn. He does not drive, his spouse drives. Pt served in the [employer] for 2 tours in [employer]. Spouse states pt and herself are being trained to perform home dialysis. Smoking Status: Current every day smoker Past Alcohol Use History: None Reported Additional Past Alcohol Use History / Comment(s): Pt started smoking in 1964 and is a 1 ppd smoker. Past Drug Use History: None Reported Additional Drug Use History / Comment(s): Pt states he takes a couple puffs from a marijuana joint occasionally - Past Family History Father History Unknown: Yes Mother Family Medical History: Cancer Additional Family Medical History / Comment(s): Mother from metastatic cancer pelvic origin. Medications and Allergies Home Medications Medication Instructions Recorded Confirmed Type Ergocalciferol (Vitamin D2) 50,000 unit PO Q14D 07/18/17 06/28/21 History [Vitamin D2] Aspirin EC [Ecotrin Low Dose] 81 mg PO HS 02/10/18 06/28/21 History Isosorbide Mononitrate ER [Imdur] 60 mg PO BID #60 tab.er.24h 04/21/20 06/28/21 Rx DULoxetine HCL [Cymbalta] 20 mg PO DAILY 10/27/20 06/28/21 History Melatonin 5 mg PO HS 12/19/20 06/28/21 History Sennosides-Docusate Sodium 2 tab PO TID PRN 12/31/20 06/28/21 History [Senokot-S] Gabapentin [Neurontin] 100 mg PO TID 01/23/21 06/28/21 History Nitroglycerin Sl Tabs [Nitrostat] 0.4 mg SL Q5M PRN 01/23/21 06/28/21 History rOPINIRole HCL [Requip] 0.5 mg PO TID 01/23/21 06/28/21 History Budesonide-Formot 160-4.5 Mcg 2 puff INHALATION RT-BID #1 inhaler 02/01/21 Rx [Symbicort 160-4.5 Mcg Inhaler] Furosemide [Lasix] 80 mg PO DAILY 02/17/21 06/28/21 History Lidocaine-Prilocaine Cream [Emla 1 applic TOPICAL DIRECTED PRN 02/17/21 06/28/21 History Cream 2.5%/2.5%] Omeprazole [PriLOSEC] 40 mg PO HS #0 02/18/21 06/28/21 Rx Clopidogrel [Plavix] 75 mg PO DAILY #30 tab 04/12/21 06/28/21 Rx Metoprolol Tartrate [Lopressor] 25 mg PO BID #60 tab 04/12/21 06/28/21 Rx Atorvastatin [Lipitor] 20 mg PO HS 05/08/21 06/28/21 History Ondansetron [Zofran] 4 mg PO DAILY PRN 05/08/21 06/28/21 History Insulin Glargine [Lantus Vial] 20 unit SQ HS #0 05/10/21 06/28/21 Rx amLODIPine [Norvasc] 5 mg PO DAILY #30 tab 05/10/21 06/28/21 Rx Ferrous Sulfate [Iron (65 MG 325 mg PO BID-W/MEALS #60 tab 06/08/21 06/28/21 Rx Elemental)] Insulin Aspart [NovoLOG] 3 units SQ AC-TID #10 ml 06/08/21 06/28/21 Rx Oxybutynin Chloride [Ditropan] 5 mg PO DAILY 06/28/21 06/28/21 History Tamsulosin HCl [Flomax] 0.4 mg PO DAILY 06/28/21 06/28/21 History Allergies Allergy/AdvReac Type Severity Reaction Status Date / Time Iodinated Contrast Media AdvReac CAN'T Verified 06/28/21 18: TAKE, RENAL DISEASE Iodine and Iodide Containing AdvReac CAN'T Verified 06/28/21 18: Produc TAKE, RENAL DISEASE Surgical - Exam Vital Signs Temp Pulse Resp BP Pulse Ox 98.1 F 80 20 122/49 100 06/28/21 15:19 06/28/21 15:19 06/28/21 15:19 06/28/21 15:19 06/28/21 15:19 Results - Labs 06/29/21 05:54 06/29/21 05:54 Abnormal Lab Results - Last 24 Hours (Table) 06/28/21 06/28/21 06/28/21 Range/Units 16:00 16:00 16:00 RBC 1.94 L (4.30-5.90) m/uL Hgb 5.1 L* D (13.0-17.5) gm/dL Hct 16.3 L* (39.0-53.0) % MCHC (31.0-37.0) g/dL RDW 16.8 H (11.5-15.5) % Lymphocytes # 0.6 L (1.0-4.8) k/uL APTT 21.4 L (22.0-30.0) sec Sodium 132 L (137-145) mmol/L Chloride 96 L (98-107) mmol/L BUN 29 H (9-20) mg/dL Creatinine 2.23 H (0.66-1.25) mg/dL Glucose 230 H (74-99) mg/dL POC Glucose (mg/dL) (75-99) mg/dL Total Protein 5.7 L (6.3-8.2) g/dL Albumin 3.0 L (3.5-5.0) g/dL Crossmatch 06/28/21 06/28/21 06/29/21 Range/Units 16:00 23:45 02:09 RBC 2.67 L (4.30-5.90) m/uL Hgb 7.0 L D (13.0-17.5) gm/dL Hct 22.6 L (39.0-53.0) % MCHC (31.0-37.0) g/dL RDW 16.9 H (11.5-15.5) % Lymphocytes # (1.0-4.8) k/uL APTT (22.0-30.0) sec Sodium (137-145) mmol/L Chloride (98-107) mmol/L BUN (9-20) mg/dL Creatinine (0.66-1.25) mg/dL Glucose (74-99) mg/dL POC Glucose (mg/dL) 256 H (75-99) mg/dL Total Protein (6.3-8.2) g/dL Albumin (3.5-5.0) g/dL Crossmatch See Detail 06/29/21 06/29/21 06/29/21 Range/Units 05:54 05:54 06:15 RBC 2.83 L (4.30-5.90) m/uL Hgb 7.6 L (13.0-17.5) gm/dL Hct 24.5 L (39.0-53.0) % MCHC 30.9 L (31.0-37.0) g/dL RDW 16.7 H (11.5-15.5) % Lymphocytes # 0.5 L (1.0-4.8) k/uL APTT (22.0-30.0) sec Sodium 133 L (137-145) mmol/L Chloride 97 L (98-107) mmol/L BUN 40 H (9-20) mg/dL Creatinine 2.95 H (0.66-1.25) mg/dL Glucose 135 H (74-99) mg/dL POC Glucose (mg/dL) 140 H (75-99) mg/dL Total Protein (6.3-8.2) g/dL Albumin (3.5-5.0) g/dL Crossmatch 06/29/21 Range/Units 11:29 RBC (4.30-5.90) m/uL Hgb (13.0-17.5) gm/dL Hct (39.0-53.0) % MCHC (31.0-37.0) g/dL RDW (11.5-15.5) % Lymphocytes # (1.0-4.8) k/uL APTT (22.0-30.0) sec Sodium (137-145) mmol/L Chloride (98-107) mmol/L BUN (9-20) mg/dL Creatinine (0.66-1.25) mg/dL Glucose (74-99) mg/dL POC Glucose (mg/dL) 63 L (75-99) mg/dL Total Protein (6.3-8.2) g/dL Albumin (3.5-5.0) g/dL Crossmatch Diabetes panel 06/28/21 06/29/21 Range/Units 16:00 05:54 Sodium 132 L 133 L (137-145) mmol/L Potassium 3.6 4.1 (3.5-5.1) mmol/L Chloride 96 L 97 L (98-107) mmol/L Carbon Dioxide 29 29 (22-30) mmol/L BUN 29 H 40 H (9-20) mg/dL Creatinine 2.23 H 2.95 H (0.66-1.25) mg/dL Glucose 230 H 135 H (74-99) mg/dL Calcium 8.6 8.7 (8.4-10.2) mg/dL AST 17 (17-59) U/L ALT 12 (4-49) U/L Alkaline Phosphatase 88 (38-126) U/L Total Protein 5.7 L (6.3-8.2) g/dL Albumin 3.0 L (3.5-5.0) g/dL Calcium panel 06/28/21 06/29/21 Range/Units 16:00 05:54 Calcium 8.6 8.7 (8.4-10.2) mg/dL Albumin 3.0 L (3.5-5.0) g/dL Pituitary panel 06/28/21 06/29/21 Range/Units 16:00 05:54 Sodium 132 L 133 L (137-145) mmol/L Potassium 3.6 4.1 (3.5-5.1) mmol/L Chloride 96 L 97 L (98-107) mmol/L Carbon Dioxide 29 29 (22-30) mmol/L BUN 29 H 40 H (9-20) mg/dL Creatinine 2.23 H 2.95 H (0.66-1.25) mg/dL Glucose 230 H 135 H (74-99) mg/dL Calcium 8.6 8.7 (8.4-10.2) mg/dL Adrenal panel 06/28/21 06/29/21 Range/Units 16:00 05:54 Sodium 132 L 133 L (137-145) mmol/L Potassium 3.6 4.1 (3.5-5.1) mmol/L Chloride 96 L 97 L (98-107) mmol/L Carbon Dioxide 29 29 (22-30) mmol/L BUN 29 H 40 H (9-20) mg/dL Creatinine 2.23 H 2.95 H (0.66-1.25) mg/dL Glucose 230 H 135 H (74-99) mg/dL Calcium 8.6 8.7 (8.4-10.2) mg/dL Total Bilirubin 0.2 (0.2-1.3) mg/dL AST 17 (17-59) U/L ALT 12 (4-49) U/L Alkaline Phosphatase 88 (38-126) U/L Total Protein 5.7 L (6.3-8.2) g/dL Albumin 3.0 L (3.5-5.0) g/dL
[2021-06-29 17:00] LABS: Glucose,Whole Blood 199 mg/dL (75-99)
[2021-06-29] MEDS: SYMBICORT 160-4.5 MCG INHALER INHALATION SCH (19:45)
[2021-06-29 20:23] LABS: Glucose,Whole Blood 200 mg/dL (75-99)
--- NOTE | 2021-06-29 20:55 | PN ---
PROGRESS NOTE DATE OF SERVICE: 06/29/2020 This 71-year-old gentleman who was admitted with weakness and anemia received 2 units of transfusion, and hemoglobin is improved to 7.6 today. No chest pain. No palpitations. No fever. Surgery has seen the patient today and is planning EGD on Saturday by Dr. Huerta. No chest pain. No palpitation. Plavix has been held. PHYSICAL EXAMINATION: Alert and oriented x3. Pulse 76, blood pressure 148/64, respiration 18, temperature 98.4, pulse ox 91% on 6 L. HEENT: Conjunctivae pale. NECK: No jugular venous distention. CARDIOVASCULAR: S1, S2 muffled. RESPIRATION: Breath sounds diminished at the bases. ABDOMEN: Soft, nontender. NERVOUS SYSTEM: No focal deficit. LABS: Hemoglobin 7.6, creatinine is 2.95. ASSESSMENT: 1. Anemia, possibly acute on chronic. Rule out acute GI blood loss anemia. 2. Chronic end-stage renal disease, on hemodialysis. 3. Hyponatremia. 4. Elevated random glucose. 5. History of coronary artery disease. 6. History of chronic obstructive pulmonary disease. 7. Diabetes mellitus, type 2. 8. Gastroesophageal reflux disease. 9. History of gastrointestinal bleed. 10.Hypertension. 11.Hyperlipidemia. 12.History of pneumonia. 13.History of vascular disorder. 14.History of benign colonic polyp which seems be suspected intestinal bleed. 15.History of partial small bowel obstruction. 16.History of restless leg syndrome. 17.History of vertigo. 18.History of cholecystectomy. 19.History of continued ongoing nicotine dependence. 20.FULL CODE. RECOMMENDATIONS AND DISCUSSION: I recommend to continue current medications, continue with symptomatic treatment. Will repeat CBC, BMP tomorrow. Follow closely with Surgery. I would also recommend nephrology and cardiology consultations. Prognosis is guarded because of multiple complex medical issues. Further recommendations to follow. MMODL / IJN: [id number] /
[2021-06-29] MEDS: MELATONIN 5 MG TABLET PO SCH (21:09)
[2021-06-30] MEDS: IPRATROPIUM-ALBUTEROL 3 ML NEB INHALATION PRN ×3 (03:52→20:10)
[2021-06-30 06:15] LABS: Glucose,Whole Blood 82 mg/dL (75-99)
[2021-06-30 06:31] LABS: Anisocytosis Slight; Basophils % (A) 0 %; Eosinophils % (A) 0 %; HCT 24.2 % (39.0-53.0); HGB 7.4 gm/dL (13.0-17.5); Hypochromasia Marked; Lymphocytes # (A) 0.5 k/uL (1.0-4.8); Lymphocytes % (A) 5 %; MCH 26.3 pg (25.0-35.0); MCHC 30.5 g/dL (31.0-37.0); MCV 86.3 fL (80.0-100.0); Mean Platelet Volume 8.6; Monocytes # (A) 0.6 k/uL (0-1.0); Monocytes % (A) 5 %; Neutrophils % (A) 87 %; Platelet Count 367 k/uL (150-450); Poikilocytosis Moderate; RDW 16.6 % (11.5-15.5); WBC 10.3 k/uL (3.8-10.6)
[2021-06-30] MEDS: INSULIN ASPART (NovoLOG) 100 UNIT/ML VIAL SQ SCH ×7 (06:46→20:29)
[2021-06-30 06:48] LABS: Calcium 8.7 mg/dL (8.4-10.2); Magnesium 1.9 mg/dL (1.6-2.3); Potassium 3.8 mmol/L (3.5-5.1)
[2021-06-30] MEDS: FERROUS SULFATE 325 MG TAB PO SCH ×2 (06:54→17:41)
[2021-06-30] MEDS ORDERED: DARBEPOETIN ALFA 40 MCG/0.4 ML SYRINGE SQ SCH ×2 (09:00→20:00)
[2021-06-30] MEDS ORDERED: LIDOCAINE-PRILOCAINE 2.5-2.5% CREAM 5 GM TUBE TOPICAL PRN (09:00)
--- NOTE | 2021-06-30 09:01 | P.NPCON ---
History of Present Illness - Reason for Consult end stage renal disease - History of Present Illness Reason for consultation: End-stage renal disease History of present illness: Patient is a 71-year-old male seen in renal consultation for end-stage renal disease. He is maintained on hemodialysis on Saturday schedule. Patient presented to the hospital with generalized weakness. He had a hemoglobin checked outpatient and was 5.1 and he was advised to what the hospital. He did receive blood transfusion and hemoglobin is up to 7.4 this morning. He denies any active bleeding. No melena or hematochezia. No chest pain or shortness breath. Blood pressure stable. No vomiting or diarrhea. Scheduled for dialysis today. He's being followed by surgery and has an EGD scheduled for Saturday. Vital signs are stable. General: The patient appeared well nourished and normally developed. HEENT: Head exam is unremarkable. LUNGS: Breath sounds decreased. HEART: Rate and Rhythm are regular. ABDOMEN: Soft, no distention. EXTREMITITES: No edema. Past Medical History Past Medical History: Coronary Artery Disease (CAD), Chest Pain / Angina, COPD, Diabetes Mellitus, GERD/Reflux, GI Bleed, Hyperlipidemia, Hypertension, Pneumonia, Renal Disease, Vascular Disorder Additional Past Medical History / Comment(s): IDDM type II, lower GI bleed, benign colon polyps, spouse states micro bleeds in intestine are suspected, abdominal distention comes and goes which is nearly daily, partial SBO, chronic renal disease stage IV HD MWF, iron anemia with iron transfusions (recent R upper chest mediport for infusions), PVD, stable lung nodules, chronic low back pain with bilateral sciatica, RLS, vertigo, insomnia, past agent orange exposure. Last Myocardial Infarction Date:: 03/2020 History of Any Multi-Drug Resistant Organisms: None Reported Past Surgical History: Cholecystectomy, Heart Catheterization Additional Past Surgical History / Comment(s): 03/25/20 R sublclavian mediport, R carotid stent done in [place], EGD/colonoscopyDecember 2016, endoscopic capsule, fx lt wrist -sx re-set, aortagram, bilateral leg revasculari zations/stents, Left upper arm fistula Past Anesthesia/Blood Transfusion Reactions: No Reported Reaction Additional Past Anesthesia/Blood Transfusion Reaction / Comment(s): Pt has had blood transfusion without reaction. Date of Last Stent Placement:: 04/27/20 Past Psychological History: No Psychological Hx Reported Additional Psychological History / Comment(s): Pt resides with his spouse and their 2 dogs. Pt uses a cane to ambulate. He has a mobility scooter which he uses prn. He does not drive, his spouse drives. Pt served in the [employer] for 2 tours in [employer]. Spouse states pt and herself are being trained to perform home dialysis. Smoking Status: Current every day smoker Past Alcohol Use History: None Reported Additional Past Alcohol Use History / Comment(s): Pt started smoking in 1964 and is a 1 ppd smoker. Past Drug Use History: None Reported Additional Drug Use History / Comment(s): Pt states he takes a couple puffs from a marijuana joint occasionally - Past Family History Father History Unknown: Yes Mother Family Medical History: Cancer Additional Family Medical History / Comment(s): Mother from metastatic cancer pelvic origin. Medications and Allergies Home Medications Medication Instructions Recorded Confirmed Type Ergocalciferol (Vitamin D2) 50,000 unit PO Q14D 07/18/17 06/28/21 History [Vitamin D2] Aspirin EC [Ecotrin Low Dose] 81 mg PO HS 02/10/18 06/28/21 History Isosorbide Mononitrate ER [Imdur] 60 mg PO BID #60 tab.er.24h 04/21/20 06/28/21 Rx DULoxetine HCL [Cymbalta] 20 mg PO DAILY 10/27/20 06/28/21 History Melatonin 5 mg PO HS 12/19/20 06/28/21 History Sennosides-Docusate Sodium 2 tab PO TID PRN 12/31/20 06/28/21 History [Senokot-S] Gabapentin [Neurontin] 100 mg PO TID 01/23/21 06/28/21 History Nitroglycerin Sl Tabs [Nitrostat] 0.4 mg SL Q5M PRN 01/23/21 06/28/21 History rOPINIRole HCL [Requip] 0.5 mg PO TID 01/23/21 06/28/21 History Budesonide-Formot 160-4.5 Mcg 2 puff INHALATION RT-BID #1 inhaler 02/01/21 06/28/21 Rx [Symbicort 160-4.5 Mcg Inhaler] Furosemide [Lasix] 80 mg PO DAILY 02/17/21 06/28/21 History Lidocaine-Prilocaine Cream [Emla 1 applic TOPICAL DIRECTED PRN 02/17/21 06/28/21 History Cream 2.5%/2.5%] Omeprazole [PriLOSEC] 40 mg PO HS #0 02/18/21 06/28/21 Rx Clopidogrel [Plavix] 75 mg PO DAILY #30 tab 04/12/21 06/28/21 Rx Metoprolol Tartrate [Lopressor] 25 mg PO BID #60 tab 04/12/21 06/28/21 Rx Atorvastatin [Lipitor] 20 mg PO HS 05/08/21 06/28/21 History Ondansetron [Zofran] 4 mg PO DAILY PRN 05/08/21 06/28/21 History Insulin Glargine [Lantus Vial] 20 unit SQ HS #0 05/10/21 06/28/21 Rx amLODIPine [Norvasc] 5 mg PO DAILY #30 tab 05/10/21 06/28/21 Rx Ferrous Sulfate [Iron (65 MG 325 mg PO BID-W/MEALS #60 tab 06/08/21 06/28/21 Rx Elemental)] Insulin Aspart [NovoLOG] 3 units SQ AC-TID #10 ml 06/08/21 06/28/21 Rx Oxybutynin Chloride [Ditropan] 5 mg PO DAILY 06/28/21 06/28/21 History Tamsulosin HCl [Flomax] 0.4 mg PO DAILY 06/28/21 06/28/21 History Allergies Allergy/AdvReac Type Severity Reaction Status Date / Time Iodinated Contrast Media AdvReac CAN'T Verified 06/28/21 18:21 TAKE, RENAL DISEASE Iodine and Iodide Containing AdvReac CAN'T Verified 06/28/21 18:21 Produc TAKE, RENAL DISEASE Physical Exam Vitals: Vital Signs Temp Pulse Pulse Resp BP Pulse Ox 06/30/21 04:00 88 72 22 143/63 95 06/30/21 03:52 88 06/30/21 00:00 68 22 134/63 92 L 06/29/21 19:49 98.5 F 76 18 148/65 91 L 06/29/21 16:00 98.1 F 68 18 138/59 92 L 06/29/21 15:39 95 06/29/21 14:00 80 18 06/29/21 11:51 97.4 F L 80 18 139/51 93 L 06/29/21 09:00 98.6 F 83 18 127/55 95 Intake and Output 06/29/21 06/30/21 06/30/21 22:59 06:59 14:59 Other: # Voids 300 1 Weight 78.7 kg Results - Lab Results Most recent lab results Calcium 8.7 mg/dL (8.4-10.2) 06/30/21 05:38 Magnesium 1.9 mg/dL (1.6-2.3) 06/30/21 05:38 06/30/21 05:38 06/30/21 05:38 Assessment and Plan Plan: Assessment: 1. End-stage renal disease maintained on hemodialysis on Saturday schedule. 2. Acute blood loss anemia status post blood transfusion. Scheduled for EGD on Saturday. Has required multiple hospitalizations for the anemia. 3. Hypertension with chronic kidney disease. Stable. 4. Diabetes mellitus. 5. Chronic systolic heart failure with ejection fraction of 45 for 50% with mild to moderate aortic regurgitation. Plan: Hemodialysis today. Add Aranesp. EGD Saturday. Consult hematology as well due to persistent anemia. Thank you for the consultation. I will continue to follow the patient with you during his hospital stay
[2021-06-30] MEDS: SYMBICORT 160-4.5 MCG INHALER INHALATION SCH ×2 (09:12→20:09)
[2021-06-30] MEDS: METOPROLOL TARTRATE 25 MG TAB PO SCH ×2 (09:54→20:29)
[2021-06-30] MEDS: OXYBUTYNIN CHLORIDE 5 MG TAB PO SCH (09:54)
[2021-06-30] MEDS: ISOSORBIDE MONONITRATE ER 60 MG TAB.ER.24H PO SCH ×2 (09:54→20:29)
[2021-06-30] MEDS: GABAPENTIN 100 MG CAP PO SCH ×3 (09:55→20:29)
[2021-06-30] MEDS: PANTOPRAZOLE 40 MG/10 ML VIAL IV SCH (09:55)
[2021-06-30] MEDS: TAMSULOSIN 0.4 MG CAP.ER.24H PO SCH (09:55)
[2021-06-30] MEDS: amLODIPine 5 MG TAB PO SCH (09:55)
[2021-06-30] MEDS: DULoxetine HCL 20 MG CAPSULE.DR PO SCH (09:56)
[2021-06-30 11:45] LABS: Glucose,Whole Blood 135 mg/dL (75-99)
--- NOTE | 2021-06-30 12:02 | P.PN ---
Subjective Progress Note Date: 06/30/21 CHIEF COMPLAINT: Anemia HISTORY OF PRESENT ILLNESS: Surgical service is following in regards to patient's anemia. his hemoglobin has dropped from 7.6-7.4. He still denies any signs of bleeding. Denies any abdominal pain. Hgb on admission was 5.1 PHYSICAL EXAM: VITAL SIGNS: Reviewed. GENERAL: Well-developed in no acute distress. HEENT: No sclera icterus. Extraocular movements grossly intact. Moist buccal mucosa. Head is atraumatic, normocephalic. ABDOMEN: Soft. Nondistended. Nontender. NEUROLOGIC: Alert and oriented. Cranial nerves II through XII grossly intact. ASSESSMENT: 1. Anemia with no evidence of active bleeding. Patient is status post 2 units of blood 2. History of iron deficiency anemia and anemia of chronic kidney disease 3. End-stage renal disease on hemodialysis 4. Coronary artery disease with cardiac stents. Last stent placed in March 2021 and on Plavix at home 5. Patient reports prior history of capsule endoscopy and possible AVMs PLAN: -Patient scheduled for EGD on 07/03/[address] Huerta -Continue to hold Plavix -Continue to monitor for any signs or symptoms of bleeding -Continue to monitor hemoglobin Physician Csr Technician note has been reviewed by physician. Signing provider agrees with the documented findings, assessment, and plan of care. Objective - Vital Signs Vital signs: Vital Signs Temp 98.5 F 06/30/21 08:00 Pulse 70 06/30/21 08:00 Resp 20 06/30/21 08:00 BP 155/67 06/30/21 08:00 Pulse Ox 94 L 06/30/21 08:00 Intake & Output 06/29/21 06/30/21 06/30/21 18:59 06:59 18:59 Intake Total 240 118 Output Total 300 Balance -60 118 Weight 79.6 kg 78.7 kg Intake: Oral 240 118 Output: Urine 300 Other: # Voids 300 1 - Labs CBC & Chem 7: 06/30/21 05:38 06/30/21 05:38 Labs: Abnormal Lab Results - Last 24 Hours (Table) 06/29/21 06/29/21 06/30/21 Range/Units 16:40 20:12 05:38 RBC 2.80 L (4.30-5.90) m/uL Hgb 7.4 L (13.0-17.5) gm/dL Hct 24.2 L (39.0-53.0) % MCHC 30.5 L (31.0-37.0) g/dL RDW 16.6 H (11.5-15.5) % Neutrophils # 9.0 H (1.3-7.7) k/uL Lymphocytes # 0.5 L (1.0-4.8) k/uL Sodium (137-145) mmol/L BUN (9-20) mg/dL Creatinine (0.66-1.25) mg/dL Glucose (74-99) mg/dL POC Glucose (mg/dL) 199 H 200 H (75-99) mg/dL 06/30/21 06/30/21 Range/Units 05:38 11:44 RBC (4.30-5.90) m/uL Hgb (13.0-17.5) gm/dL Hct (39.0-53.0) % MCHC (31.0-37.0) g/dL RDW (11.5-15.5) % Neutrophils # (1.3-7.7) k/uL Lymphocytes # (1.0-4.8) k/uL Sodium 135 L (137-145) mmol/L BUN 49 H (9-20) mg/dL Creatinine 3.50 H (0.66-1.25) mg/dL Glucose 73 L (74-99) mg/dL POC Glucose (mg/dL) 135 H (75-99) mg/dL
--- NOTE | 2021-06-30 14:01 | P.CONS ---
History of Present Illness - Reason for Consult Consult date: 06/30/21 anemia Requesting physician: Eduardo French - Chief Complaint severe anemia, Hgb 5.1 - History of Present Illness Mr Egan is a pleasant male pt of Dr. Singletary, initially seen in consult at [facility] on 03/05/18 for anemia, present since 08/04. EGD and colonoscopy 07/20/17, 3 benign polyps removed. Labs 11/03 confirmed iron deficiency with ferritin of 27, and iron saturation of 11, despite intermittent blood transfusions. He was also on aspirin and Plavix, with Plavix being discontinued during that admission. He received IV iron. Seen for his 1st OV on 03/26/18. He was placed on monitoring with IV iron as needed. [facility] pain/n/v/ in early 06/05. CT AP did not show any major findings other than possible, mild ileus. His symptoms were felt to be due to constipation. His Hgb was still 9.8, with normal iron stores. It was felt that he also had a component of AOCKD. Started on Aranesp 60 mcg Q wk at [facility]. He was given the injections when Hgb <11. He had catheterization with stent in the right lower extremity in early 10/08, started back on Plavix. He did have a drop in hemoglobin subsequently in 10/08 into the 7 range and received another blood transfusion. He therefore stopped taking the Plavix after his initial months prescription ran out. He was asked to resume the Plavix due to his recent stent. He has started and stopped plavix on his own over the last year. He was in the hospital again in 02/06. Around that time he had progressive kidney failure, and started hemodialysis 3 times a week. He started getting monitoring of his blood, with IM and JOEL supplementation with Nephrology. He came back to the office in 07/09, as his hemoglobin was staying mostly in the 7- 8 range. He had had repeat stent placement in 04/08 and was started back on Plavix in addition to aspirin. He was at dialysis and was found to have a Hgb of 5.1, sent to hospital for transfusion, he is s/p 2 units with appropriate increase in Hgb to 7.4. He states intermittent abd pain, he did note dark stool a few days ago, no other bleeding to report. He is sched for EGD on Saturday Review of Systems 10 point ROS is neg except as stated in HPI Past Medical History Past Medical History: Coronary Artery Disease (CAD), Chest Pain / Angina, COPD, Diabetes Mellitus, GERD/Reflux, GI Bleed, Hyperlipidemia, Hypertension, Pneumonia, Renal Disease, Vascular Disorder Additional Past Medical History / Comment(s): IDDM type II, lower GI bleed, benign colon polyps, spouse states micro bleeds in intestine are suspected, abdominal distention comes and goes which is nearly daily, partial SBO, chronic renal disease stage IV HD MWF, iron anemia with iron transfusions (recent R upper chest mediport for infusions), PVD, stable lung nodules, chronic low back pain with bilateral sciatica, RLS, vertigo, insomnia, past agent orange e xposure. Last Myocardial Infarction Date:: 03/2020 History of Any Multi-Drug Resistant Organisms: None Reported Past Surgical History: Cholecystectomy, Heart Catheterization Additional Past Surgical History / Comment(s): 03/25/20 R sublclavian mediport, R carotid stent done in [place], EGD/colonoscopyDecember 2016, endoscopic capsule, fx lt wrist -sx re-set, aortagram, bilateral leg revascularizat ions/stents, Left upper arm fistula Past Anesthesia/Blood Transfusion Reactions: No Reported Reaction Additional Past Anesthesia/Blood Transfusion Reaction / Comm: Pt has had blood transfusion without reaction. Date of Last Stent Placement:: 04/27/20 Past Psychological History: No Psychological Hx Reported Additional Psychological History / Comment(s): Pt resides with his spouse and their 2 dogs. Pt uses a cane to ambulate. He has a mobility scooter which he uses prn. He does not drive, his spouse drives. Pt served in the [employer] for 2 tours in [employer]. Spouse states pt and herself are being trained to perform home dialysis. Smoking Status: Current every day smoker Past Alcohol Use History: None Reported Additional Past Alcohol Use History / Comment(s): Pt started smoking in 1965 and is a 1 ppd smoker. Past Drug Use History: None Reported Additional Drug Use History / Comment(s): Pt states he takes a couple puffs from a marijuana joint occasionally - Past Family History Father History Unknown: Yes Mother Family Medical History: Cancer Additional Family Medical History / Comment(s): Mother from metastatic cancer pelvic origin. Medications and Allergies Home Medications Medication Instructions Recorded Confirmed Type Ergocalciferol (Vitamin D2) 50,000 unit PO Q14D 07/18/17 06/28/21 History [Vitamin D2] Aspirin EC [Ecotrin Low Dose] 81 mg PO HS 02/10/18 06/28/21 History Isosorbide Mononitrate ER [Imdur] 60 mg PO BID #60 tab.er.24h 04/21/20 06/28/21 Rx DULoxetine HCL [Cymbalta] 20 mg PO DAILY 10/27/20 06/28/21 History Melatonin 5 mg PO HS 12/19/20 06/28/21 History Sennosides-Docusate Sodium 2 tab PO TID PRN 12/31/20 06/28/21 History [Senokot-S] Gabapentin [Neurontin] 100 mg PO TID 01/23/21 06/28/21 History Nitroglycerin Sl Tabs [Nitrostat] 0.4 mg SL Q5M PRN 01/23/21 06/28/21 History rOPINIRole HCL [Requip] 0.5 mg PO TID 01/23/21 06/28/21 History Budesonide-Formot 160-4.5 Mcg 2 puff INHALATION RT-BID #1 inhaler 02/01/2106/08 Rx [Symbicort 160-4.5 Mcg Inhaler] Furosemide [Lasix] 80 mg PO DAILY 02/17/21 06/28/21 History Lidocaine-Prilocaine Cream [Emla 1 applic TOPICAL DIRECTED PRN 02/17/21 06/28/21 History Cream 2.5%/2.5%] Omeprazole [PriLOSEC] 40 mg PO HS #0 02/18/21 06/28/21 Rx Clopidogrel [Plavix] 75 mg PO DAILY #30 tab 04/12/21 06/28/21 Rx Metoprolol Tartrate [Lopressor] 25 mg PO BID #60 tab 04/12/21 06/28/21 Rx Atorvastatin [Lipitor] 20 mg PO HS 05/08/21 06/28/21 History Ondansetron [Zofran] 4 mg PO DAILY PRN 05/08/21 06/28/21 History Insulin Glargine [Lantus Vial] 20 unit SQ HS #0 05/10/21 06/28/21 Rx amLODIPine [Norvasc] 5 mg PO DAILY #30 tab 05/10/21 06/28/21 Rx Ferrous Sulfate [Iron (65 MG 325 mg PO BID-W/MEALS #60 tab 06/08/21 06/28/21 Rx Elemental)] Insulin Aspart [NovoLOG] 3 units SQ AC-TID #10 ml 06/08/21 06/28/21 Rx Oxybutynin Chloride [Ditropan] 5 mg PO DAILY 06/28/21 06/28/21 History Tamsulosin HCl [Flomax] 0.4 mg PO DAILY 06/28/21 06/28/21 History Allergies Allergy/AdvReac Type Severity Reaction Status Date / Time Iodinated Contrast Media AdvReac CAN'T Verified 06/28/21 18:21 TAKE, RENAL DISEASE Iodine and Iodide Containing AdvReac CAN'T Verified 06/28/21 18:21 Produc TAKE, RENAL DISEASE Physical Exam Vitals: Vital Signs Temp Pulse Pulse Resp BP Pulse Ox 06/30/21 04:00 88 72 22 143/63 95 06/30/21 03:52 88 06/30/21 00:00 68 22 134/63 92 L 06/29/21 19:49 98.5 F 76 18 148/65 91 L 06/29/21 16:00 98.1 F 68 18 138/59 92 L 06/29/21 15:39 95 06/29/21 14:00 80 18 06/29/21 11:51 97.4 F L 80 18 139/51 93 L Intake and Output 06/29/21 06/30/21 06/30/21 22:59 06:59 14:59 Intake Total 118 Balance 118 Intake: Oral 118 Other: # Voids 300 1 Weight 78.7 kg - Constitutional General appearance: average body habitus, cooperative, no acute distress - EENT Eyes: anicteric sclerae, EOMI ENT: hearing grossly normal, normal oropharynx - Neck Neck: no lymphadenopathy - Respiratory Respiratory: bilateral: CTA - Cardiovascular Heart sounds: normal: S1, S2 Abnormal Heart Sounds: systolic murmur leg Peripheral Edema: bilateral: Trace - Gastrointestinal General gastrointestinal: soft Localized gastrointestinal: tender: epigastric periumbilical (firm, no rebound) - Integumentary Integumentary: pale - Neurologic Neurologic: CNII-XII intact - Musculoskeletal Musculoskeletal: generalized weakness - Psychiatric Psychiatric: A&O x's 3, appropriate affect, intact judgment & insight Results CBC & Chem 7: 06/30/21 05:38 06/30/21 05:38 Labs: Abnormal Lab Results - Last 24 Hours (Table) 06/29/21 06/29/21 06/29/21 Range/Units 11:29 16:40 20:12 RBC (4.30-5.90) m/uL Hgb (13.0-17.5) gm/dL Hct (39.0-53.0) % MCHC (31.0-37.0) g/dL RDW (11.5-15.5) % Neutrophils # (1.3-7.7) k/uL Lymphocytes # (1.0-4.8) k/uL Sodium (137-145) mmol/L BUN (9-20) mg/dL Creatinine (0.66-1.25) mg/dL Glucose (74-99) mg/dL POC Glucose (mg/dL) 63 L 199 H 200 H (75-99) mg/dL 06/30/21 06/30/21 Range/Units 05:38 05:38 RBC 2.80 L (4.30-5.90) m/uL Hgb 7.4 L (13.0-17.5) gm/dL Hct 24.2 L (39.0-53.0) % MCHC 30.5 L (31.0-37.0) g/dL RDW 16.6 H (11.5-15.5) % Neutrophils # 9.0 H (1.3-7.7) k/uL Lymphocytes # 0.5 L (1.0-4.8) k/uL Sodium 135 L (137-145) mmol/L BUN 49 H (9-20) mg/dL Creatinine 3.50 H (0.66-1.25) mg/dL Glucose 73 L (74-99) mg/dL POC Glucose (mg/dL) (75-99) mg/dL Chest x-ray: report reviewed Assessment and Plan (1) Anemia in chronic kidney disease (CKD) Current Visit: Yes Status: Chronic Priority: Medium Code(s): N18.9 - CHRONIC KIDNEY DISEASE, UNSPECIFIED; D63.1 - ANEMIA IN CHRONIC KIDNEY DISEASE SNOMED Code(s): 096050718 (2) Iron deficiency anemia due to chronic blood loss Current Visit: Yes Status: Chronic Priority: Medium Code(s): D50.0 - IRON DEFICIENCY ANEMIA SECONDARY TO BLOOD LOSS (CHRONIC) SNOMED Code(s): 651216935 Plan: Pt report very dark stool and abd discomfort a few days ago with acute drop in Hgb found at dialysis. 2 units of PRBCs with appropriate increase in Hgb, stab le today, no reports of ongoing suspicions of bleeding. Transfuse for Hgb <7. Cont aranesp. Iron studies from 06/07/21 showed a iron at of 5.8%, no documentation that pt received parenteral iron support. Will await US abd to assess abd pain then will consider ordering. Us abd for epigastric pain on exam Agree with EGD planned for Saturday
[2021-06-30 16:49] LABS: Glucose,Whole Blood 214 mg/dL (75-99)
--- NOTE | 2021-06-30 17:04 | HP ---
HISTORY AND PHYSICAL He is a 71-year-old gentleman with a known case of chronic renal failure, on hemodialysis, and also known ischemic heart disease who underwent stent placement to the RCA recently, COPD, diabetes, GERD syndrome, hyperlipidemia, hypertension, who was admitted to the hospital this time with complaints of generalized weakness. His hemoglobin was 5.1. He received a blood transfusion and the hemoglobin came up to 7.4. No active bleeding per rectum. He is not vomiting any blood. No melena or hematochezia. He denied any chest pain or shortness of breath. Blood pressures have been stable. The etiology of the anemia is not clear. May need hematology evaluation and also endoscopic studies. He is apparently scheduled for EGD on Saturday. At the time of my examination, patient appears to be pale, but does not appear to be in acute distress. He is going to have dialysis done today. PAST MEDICAL HISTORY: Significant for coronary artery disease with previous stent placement, COPD, diabetes, GERD syndrome, hyperlipidemia, hypertension, pneumonia, chronic renal disease. MEDICATIONS: His prior to admission included Requip 0.5 mg t.i.d., amlodipine 5 mg daily, Flomax, Ditropan, Zofran, Prilosec, Lopressor 25 mg p.o. b.i.d., isosorbide mononitrate 60 mg p.o. b.i.d., insulin, gabapentin, Lasix 80 mg daily, ferrous sulfate, clopidogrel 75 mg daily, Lipitor 20 mg daily, and aspirin 81 mg daily. ALLERGIES: IODINATED CONTRAST MEDIA, IODINE. PHYSICAL EXAMINATION: Physical examination at this time reveals an elderly gentleman who is alert, does not appear to be in acute distress at this time. He appears pale. Vital signs as described above. Neck shows some engorged veins. Heart: S1 and S2 heard. Lungs show diminished breath sounds. Abdomen is soft. Extremities show mild edema. LAB VALUES: Hemoglobin of 7.4 after the transfusion. His creatinine is 3.5, potassium is 3.8. COVID test is negative. FINAL IMPRESSION: 1. Severe anemia associated with symptoms of weakness. 2. Chronic renal failure, on dialysis. 3. Ischemic heart disease with recent stent placement. 4. Hypertension. 5. Hyperlipidemia. Continue current management. Blood transfusion as needed. Continue with dialysis. He is going to have endoscopic studies. May consider hematology consult. Prognosis is guarded. MMODL / IJN: [id number] /
[2021-06-30] MEDS ORDERED: ONDANSETRON 4 MG/2 ML VIAL IVP STA ×2 (17:55→20:39)
[2021-06-30 19:00] LABS: Glucose,Whole Blood 184 mg/dL (75-99)
[2021-06-30 19:12] LABS: Anisocytosis Slight; HCT 23.5 % (39.0-53.0); HGB 7.3 gm/dL (13.0-17.5); Hypochromasia Marked; MCHC 31.1 g/dL (31.0-37.0); MCV 83.8 fL (80.0-100.0); Mean Platelet Volume 8.5; Platelet Count 368 k/uL (150-450); Poikilocytosis Moderate; RDW 16.9 % (11.5-15.5); WBC 10.6 k/uL (3.8-10.6)
[2021-06-30 20:17] LABS: Glucose,Whole Blood 178 mg/dL (75-99)
[2021-06-30] MEDS: MELATONIN 5 MG TABLET PO SCH (20:29)
[2021-06-30] MEDS: ATORVASTATIN 20 MG TAB PO SCH (20:29)
[2021-06-30] MEDS: ASPIRIN 81 MG PO SCH (20:29)
[2021-06-30] MEDS: INSULIN DETEMIR (LEVEMIR) 100 UNIT/ML SYR SQ SCH (20:30)
[2021-06-30] MEDS: ACETAMINOPHEN TAB 325 MG TAB PO PRN (22:57)
[2021-07-01 06:14] LABS: Glucose,Whole Blood 91 mg/dL (75-99)
[2021-07-01] MEDS: INSULIN ASPART (NovoLOG) 100 UNIT/ML VIAL SQ SCH ×7 (06:28→21:02)
[2021-07-01] MEDS: FERROUS SULFATE 325 MG TAB PO SCH ×2 (06:41→15:46)
[2021-07-01] MEDS: SYMBICORT 160-4.5 MCG INHALER INHALATION SCH ×2 (07:05→19:13)
--- NOTE | 2021-07-01 08:31 | P.PN ---
Subjective Patient is seen in follow-up for end-stage renal disease. He is maintained on hemodialysis on Saturday schedule. No problems with dialysis yesterday. No active bleeding. Currently having breakfast. Vital signs are stable. General: The patient appeared well nourished and normally developed. HEENT: Head exam is unremarkable. LUNGS: Breath sounds decreased. HEART: Rate and Rhythm are regular. ABDOMEN: Soft, no distention. EXTREMITITES: No edema. Objective - Vital Signs Vital signs: Vital Signs Temp 98.8 F 06/30/21 23:37 Pulse 76 07/01/21 04:00 Resp 18 07/01/21 04:00 BP 129/60 07/01/21 04:00 Pulse Ox 98 07/01/21 07:07 Intake & Output 06/30/21 07/01/21 07/01/21 18:59 06:59 18:59 Intake Total 354 300 Output Total 1999 Balance -1646 300 Weight 78.5 kg Intake: Oral 354 300 Output: Hemodialysis 1999 Other: # Voids 1 2 - Labs CBC & Chem 7: 06/30/21 18:56 06/30/21 05:38 Labs: Abnormal Lab Results - Last 24 Hours (Table) 06/30/21 06/30/21 06/30/21 Range/Units 11:44 16:48 18:56 RBC 2.80 L (4.30-5.90) m/uL Hgb 7.3 L (13.0-17.5) gm/dL Hct 23.5 L (39.0-53.0) % RDW 16.9 H (11.5-15.5) % POC Glucose (mg/dL) 135 H 214 H (75-99) mg/dL 06/30/21 06/30/21 Range/Units 18:58 20:14 RBC (4.30-5.90) m/uL Hgb (13.0-17.5) gm/dL Hct (39.0-53.0) % RDW (11.5-15.5) % POC Glucose (mg/dL) 184 H 178 H (75-99) mg/dL Assessment and Plan Plan: Assessment: 1. End-stage renal disease maintained on hemodialysis on Saturday schedule. 2. Acute blood loss anemia status post blood transfusion. Scheduled for EGD on Saturday. Has required multiple hospitalizations for the anemia. No active bleeding. On . Also being followed by hematology. 3. Hypertension with chronic kidney disease. Stable. 4. Diabetes mellitus. 5. Chronic systolic heart failure with ejection fraction of 45 for 50% with mild to moderate aortic regurgitation. Plan: Hemodialysis on Saturday. EGD Saturday.
--- NOTE | 2021-07-01 08:43 | US ---
EXAMINATION TYPE: US abdomen complete DATE OF EXAM: 07/01/2021 COMPARISON: CLINICAL HISTORY: severe epigastric pain on exam. GB removed. EXAM MEASUREMENTS: Liver Length: 18.5 cm CBD: 0.8 cm Spleen: 11.1 cm Right Kidney: 10.0 x 5.4 x 5.2 cm Left Kidney: 11.0 x 4.7 x 6.5 cm Pancreas: Tail obscured by overlying bowel gas Liver: Enlarged in size Gallbladder: Surgically absent Evidence for sonographic Chavez's sign: neg CBD: wnl Spleen: wnl Right Kidney: lateral upper/mid cystic lesion = 1.8 x 1.2 x 1.4 cm Left Kidney: Lower pole cystic lesion = 0.9 x 0.7 x 0.6 cm Upper IVC: wnl Abd Aorta: mid portion obscured by overlying bowel gas Incidental finding- right pleural effusion seen IMPRESSION: 1. Right pleural effusion. 2. Hepatomegaly. 3. Bilateral renal cysts.
[2021-07-01] MEDS: PANTOPRAZOLE 40 MG/10 ML VIAL IV SCH (08:49)
[2021-07-01] MEDS: TAMSULOSIN 0.4 MG CAP.ER.24H PO SCH (08:49)
[2021-07-01] MEDS: OXYBUTYNIN CHLORIDE 5 MG TAB PO SCH (08:49)
[2021-07-01] MEDS: GABAPENTIN 100 MG CAP PO SCH ×3 (08:49→21:02)
[2021-07-01] MEDS: DULoxetine HCL 20 MG CAPSULE.DR PO SCH (08:49)
[2021-07-01] MEDS: ISOSORBIDE MONONITRATE ER 60 MG TAB.ER.24H PO SCH ×2 (08:49→21:02)
[2021-07-01] MEDS: METOPROLOL TARTRATE 25 MG TAB PO SCH ×2 (08:49→21:01)
[2021-07-01] MEDS: amLODIPine 5 MG TAB PO SCH (08:49)
--- NOTE | 2021-07-01 09:38 | P.PN ---
Subjective Progress Note Date: 07/01/21 Principal diagnosis: Anemia Patient resting comfortably in bed. Denies abdominal pain. Tolerating regular diet. Hemoglobin stable at 7.3. Denies rectal bleeding or melena. Objective - Vital Signs Vital signs: Vital Signs Temp 97.7 F 07/01/21 08:00 Pulse 81 07/01/21 08:00 Resp 19 07/01/21 08:00 BP 128/61 07/01/21 08:00 Pulse Ox 99 07/01/21 08:00 Intake & Output 06/30/21 07/01/21 07/01/21 18:59 06:59 18:59 Intake Total 354 300 Output Total 1999 Balance -1646 300 Weight 78.5 kg Intake: Oral 354 300 Output: Hemodialysis 1999 Other: Voiding Method Urinal # Voids 1 2 - Exam Abdomen: Soft, nondistended, no appreciable tenderness - Labs CBC & Chem 7: 06/30/21 18:56 06/30/21 05:38 Labs: Abnormal Lab Results - Last 24 Hours (Table) 06/30/21 06/30/21 06/30/21 Range/Units 11:44 16:48 18:56 RBC 2.80 L (4.30-5.90) m/uL Hgb 7.3 L (13.0-17.5) gm/dL Hct 23.5 L (39.0-53.0) % RDW 16.9 H (11.5-15.5) % POC Glucose (mg/dL) 135 H 214 H (75-99) mg/dL 06/30/21 06/30/21 Range/Units 18:58 20:14 RBC (4.30-5.90) m/uL Hgb (13.0-17.5) gm/dL Hct (39.0-53.0) % RDW (11.5-15.5) % POC Glucose (mg/dL) 184 H 178 H (75-99) mg/dL Assessment and Plan (1) Symptomatic anemia Narrative/Plan: Patient with anemia. Continue regular diet. Schedule for EGD on Saturday by Dr. Huerta. Current Visit: Yes Status: Acute Priority: High Code(s): D64.9 - ANEMIA, UNSPECIFIED SNOMED Code(s): 015392276
--- NOTE | 2021-07-01 11:05 | P.PN ---
Subjective Progress Note Date: 06/30/21 Principal diagnosis: Acute symptomatic anemia Hyponatremia End-stage renal disease/HD 71-year-old male patient with history of CAD, ESRD/HD, who presents to the hospital with complaint of weakness and was found to be markedly anemic; patient received 2 units of packed RBCs with improved hemoglobin at 7.5 Patient has been evaluated by general surgery with plans for EGD on Saturday Objective - Vital Signs Vital signs: Vital Signs Temp 98.5 F 06/30/21 08:00 Pulse 70 06/30/21 08:00 Resp 20 06/30/21 08:00 BP 155/67 06/30/21 08:00 Pulse Ox 94 L 06/30/21 08:00 Intake & Output 06/29/21 06/30/21 06/30/21 18:59 06:59 18:59 Intake Total 240 118 Output Total 300 Balance -60 118 Weight 79.6 kg 78.7 kg Intake: Oral 240 118 Output: Urine 300 Other: # Voids 300 1 - Exam PHYSICAL EXAMINATION: GENERAL: The patient is alert and oriented x3, not in any acute distress. Well developed, well nourished. HEENT: Pupils are round and equally reacting to light. EOMI. No scleral icterus. No conjunctival pallor. Normocephalic, atraumatic. No pharyngeal erythema. No thyromegaly. CARDIOVASCULAR: S1 and S2 present. No murmurs, rubs, or gallops. PULMONARY: Chest is clear to auscultation, no wheezing or crackles. ABDOMEN: Soft, nontender, nondistended, normoactive bowel sounds. No palpable organomegaly. MUSCULOSKELETAL: No joint swelling or deformity. EXTREMITIES: No cyanosis, clubbing, or pedal edema. NEUROLOGICAL: Gross neurological examination did not reveal any focal deficits. SKIN: No rashes. - Labs CBC & Chem 7: 06/30/21 18:56 06/30/21 05:38 Labs: Abnormal Lab Results - Last 24 Hours (Table) 06/29/21 06/29/21 06/29/21 Range/Units 11:29 16:40 20:12 RBC (4.30-5.90) m/uL Hgb (13.0-17.5) gm/dL Hct (39.0-53.0) % MCHC (31.0-37.0) g/dL RDW (11.5-15.5) % Neutrophils # (1.3-7.7) k/uL Lymphocytes # (1.0-4.8) k/uL Sodium (137-145) mmol/L BUN (9-20) mg/dL Creatinine (0.66-1.25) mg/dL Glucose (74-99) mg/dL POC Glucose (mg/dL) 63 L 199 H 200 H (75-99) mg/dL 06/30/21 06/30/21 Range/Units 05:38 05:38 RBC 2.80 L (4.30-5.90) m/uL Hgb 7.4 L (13.0-17.5) gm/dL Hct 24.2 L (39.0-53.0) % MCHC 30.5 L (31.0-37.0) g/dL RDW 16.6 H (11.5-15.5) % Neutrophils # 9.0 H (1.3-7.7) k/uL Lymphocytes # 0.5 L (1.0-4.8) k/uL Sodium 135 L (137-145) mmol/L BUN 49 H (9-20) mg/dL Creatinine 3.50 H (0.66-1.25) mg/dL Glucose 73 L (74-99) mg/dL POC Glucose (mg/dL) (75-99) mg/dL Assessment and Plan Assessment: 1. Acute symptomatic anemia; - patient is status post transfusion with 2 units packed RBCs, hemoglobin stable at 7.4 this morning; patient has been placed on iron sulfate and Aranesp; Plavix has been placed on hold - Gen. surgery on board and patient is scheduled for EGD on Saturday - We will monitor CBC with plans to transfuse if hemoglobin falls below 7; Plavix remains on hold 2. End-stage renal disease/HD; nephrology on board to resume home schedule of dialysis 3. Hyponatremia; improving; continue to monitor electrolytes 4. COPD; not in exacerbation; Symbicort 2 puffs twice a day 5. Coronary artery disease; patient has been resumed on aspirin, statin therapy, beta blockers and Imdur; Plavix has been placed on hold 6. Diabetes mellitus type 2; Levemir 20 units subcu daily at bedtime; monitor Accu-Cheks every before meals and at bedtime with insulin sliding scale 7. Hypertension; continue with home dose of metoprolol and Imdur 8. Hyperlipidemia; Lipitor 20 mg by mouth daily at bedtime DVT prophylaxis; SCDs CODE STATUS; full code
--- NOTE | 2021-07-01 12:09 | P.PN ---
Subjective Progress Note Date: 07/01/21 Principal diagnosis: anemia In follow-up today patient is sitting up at the bedside. We reviewed the negative abdominal ultrasound. Patient denies any abdominal pain today. He states that he did have a very large bowel movement. He is anxious to go home. Objective - Vital Signs Vital signs: Vital Signs Temp 97.7 F 07/01/21 08:00 Pulse 81 07/01/21 08:00 Resp 19 07/01/21 08:00 BP 128/61 07/01/21 08:00 Pulse Ox 99 07/01/21 08:00 Intake & Output 06/30/21 07/01/21 07/01/21 18:59 06:59 18:59 Intake Total 354 300 Output Total 1999 Balance -1646 300 Weight 78.5 kg Intake: Oral 354 300 Output: Hemodialysis 1999 Other: Voiding Method Urinal # Voids 1 2 # Bowel Movements 1 - Constitutional General appearance: Present: average body habitus, cooperative, no acute distress - EENT Eyes: Present: anicteric sclerae, EOMI ENT: Present: hearing grossly normal - Respiratory Details: Respirations even and unlabored - Gastrointestinal General gastrointestinal: Present: normal bowel sounds, soft. Absent: absent bowel sounds, decreased bowel sounds, distended, hepatomegaly, hyperactive bowel sounds, organomegaly, rigid, scaphoid, splenomegaly, tenderness, umbilical hernia, ventral hernia - Neurologic Neurologic: Present: CNII-XII intact - Musculoskeletal Musculoskeletal: Present: generalized weakness, strength equal bilaterally - Psychiatric Psychiatric: Present: A&O x's 3, appropriate affect, intact judgment & insight - Labs CBC & Chem 7: 06/30/21 18:56 06/30/21 05:38 Labs: Abnormal Lab Results - Last 24 Hours (Table) 06/30/21 06/30/21 06/30/21 Range/Units 16:48 18:56 18:58 RBC 2.80 L (4.30-5.90) m/uL Hgb 7.3 L (13.0-17.5) gm/dL Hct 23.5 L (39.0-53.0) % RDW 16.9 H (11.5-15.5) % POC Glucose (mg/dL) 214 H 184 H (75-99) mg/dL 06/30/21 Range/Units 20:14 RBC (4.30-5.90) m/uL Hgb (13.0-17.5) gm/dL Hct (39.0-53.0) % RDW (11.5-15.5) % POC Glucose (mg/dL) 178 H (75-99) mg/dL - Imaging and Cardiology US - abdomen: report reviewed Assessment and Plan (1) Anemia in chronic kidney disease (CKD) Current Visit: Yes Status: Chronic Priority: Medium Code(s): N18.9 - CHRONIC KIDNEY DISEASE, UNSPECIFIED; D63.1 - ANEMIA IN CHRONIC KIDNEY DISEASE SNOMED Code(s): 766362860 (2) Iron deficiency anemia due to chronic blood loss Current Visit: Yes Status: Chronic Priority: Medium Code(s): D50.0 - IRON DEFICIENCY ANEMIA SECONDARY TO BLOOD LOSS (CHRONIC) SNOMED Code(s): 460140623 Plan: Ultrasound of the abdomen did not reveal any underlying pathology from his abdominal discomfort yesterday. He does have hepatomegaly. He is not having abdominal pain today after having a very large bowel movement. Patient has been on Aranesp 40 mg but, he has been on 60 mg at times. May need to adjust the dose to help improve patient's anemia. He did have an appropriate increase in hemoglobin after 2 units of blood. His hemoglobin is stable. Parenteral iron ordered as I was unable to find any documentation that patient received any parenteral iron since the 06/07/21 iron studies that were low. Agree with EGD planned for Saturday
[2021-07-01 12:15] LABS: Anisocytosis Slight; HCT 23.4 % (39.0-53.0); HGB 7.3 gm/dL (13.0-17.5); Hypochromasia Marked; MCH 26.9 pg (25.0-35.0); MCV 86.6 fL (80.0-100.0); Mean Platelet Volume 8.6; Platelet Count 376 k/uL (150-450); Poikilocytosis Moderate; RDW 16.7 % (11.5-15.5); WBC 7.1 k/uL (3.8-10.6)
--- NOTE | 2021-07-01 12:25 | P.PN ---
Subjective Progress Note Date: 07/01/21 HISTORY OF PRESENT ILLNESS This is a 71-year-old male with past medical history of chronic renal failure on hemodialysis, ischemic heart disease with coronary artery disease status post stent placement to the RCA recently, COPD, diabetes, gastroesophageal reflux disease, hyperlipidemia, hypertension. Patient was admitted due to generalized weakness and found to have a hemoglobin of 5.1. Patient has been transfused 2 units packed RBCs with hemoglobin today of 7.3 Patient has been seen by general surgery with plan for EGD on Saturday. Patient states that he did have some chest pain last evening that came and went. He did not receive any treatment and the pain went away on its own. PHYSICAL EXAMINATION Gen: This is a 71-year-old male. His resting bed appears to be comfortable and in no acute distress. VS: Afebrile, heart rate 70s and 80s, blood pressure 128/61, pulse ox 99% on 5 L nasal cannula HEENT: Head is atraumatic, normocephalic. Pupils equal, round. Sclerae is anicteric. NECK: Supple. No JVD. No lymphadenopathy. No thyromegaly. LUNGS: Diminished breath sounds. No wheezes or rhonchi. No intercostal retractions. HEART: Regular rate and rhythm. No murmur. ABDOMEN: Soft. Bowel sounds are present. No masses. No tenderness. EXTREMITIES: Trace bilateral pedal edema. No calf tenderness. NEUROLOGICAL: Patient is awake, alert and oriented x3. Cranial nerves 2 through 12 are grossly intact. ASSESSMENT Severe anemia with symptoms of weakness End stage renal disease on hemodialysis Ischemic heart disease Coronary artery disease with recent stent placement Hypertension Hyperlipidemia PLAN Hold aspirin and eliquis, resume once cleared by general surgery Continue current cardiac medications May consider hematology consult Thank you kindly for this consultation. Nurse practitioner note has been reviewed, I agree with documented findings and plan of care. Patient was seen and examined. Objective - Vital Signs Vital signs: Vital Signs Temp 97.7 F 07/01/21 08:00 Pulse 81 07/01/21 08:00 Resp 19 07/01/21 08:00 BP 128/61 07/01/21 08:00 Pulse Ox 99 07/01/21 08:00 Intake & Output 06/30/21 07/01/21 07/01/21 18:59 06:59 18:59 Intake Total 354 300 Output Total 1999 Balance -1646 300 Weight 78.5 kg Intake: Oral 354 300 Output: Hemodialysis 1999 Other: Voiding Method Urinal # Voids 1 2 - Labs CBC & Chem 7: 07/01/21 11:08 06/30/21 05:38 Labs: Abnormal Lab Results - Last 24 Hours (Table) 06/30/21 06/30/21 06/30/21 Range/Units 11:44 16:48 18:56 RBC 2.80 L (4.30-5.90) m/uL Hgb 7.3 L (13.0-17.5) gm/dL Hct 23.5 L (39.0-53.0) % RDW 16.9 H (11.5-15.5) % POC Glucose (mg/dL) 135 H 214 H (75-99) mg/dL 06/30/21 06/30/21 Range/Units 18:58 20:14 RBC (4.30-5.90) m/uL Hgb (13.0-17.5) gm/dL Hct (39.0-53.0) % RDW (11.5-15.5) % POC Glucose (mg/dL) 184 H 178 H (75-99) mg/dL
[2021-07-01] MEDS: SODIUM FERRIC GLUCONAT-SUCROSE 125 MG in SODIUM CHLORIDE 0.9% 100 ML IVPB SCH (12:36)
[2021-07-01 17:04] LABS: Glucose,Whole Blood 195 mg/dL (75-99)
[2021-07-01 20:25] LABS: Glucose,Whole Blood 179 mg/dL (75-99)
[2021-07-01] MEDS: ATORVASTATIN 20 MG TAB PO SCH (21:02)
[2021-07-01] MEDS: ASPIRIN 81 MG PO SCH (21:02)
[2021-07-01] MEDS: INSULIN DETEMIR (LEVEMIR) 100 UNIT/ML SYR SQ SCH (21:02)
[2021-07-01] MEDS: MELATONIN 5 MG TABLET PO SCH (21:02)
[2021-07-02 06:03] LABS: Glucose,Whole Blood 90 mg/dL (75-99)
[2021-07-02] MEDS: FERROUS SULFATE 325 MG TAB PO SCH ×2 (06:18→17:03)
[2021-07-02] MEDS: INSULIN ASPART (NovoLOG) 100 UNIT/ML VIAL SQ SCH ×7 (06:19→20:07)
[2021-07-02] MEDS: OXYBUTYNIN CHLORIDE 5 MG TAB PO SCH (08:04)
[2021-07-02] MEDS: ISOSORBIDE MONONITRATE ER 60 MG TAB.ER.24H PO SCH ×2 (08:04→20:06)
[2021-07-02] MEDS: amLODIPine 5 MG TAB PO SCH (08:04)
[2021-07-02] MEDS: METOPROLOL TARTRATE 25 MG TAB PO SCH ×2 (08:04→20:07)
[2021-07-02] MEDS: DULoxetine HCL 20 MG CAPSULE.DR PO SCH (08:04)
[2021-07-02] MEDS: TAMSULOSIN 0.4 MG CAP.ER.24H PO SCH (08:04)
[2021-07-02] MEDS: GABAPENTIN 100 MG CAP PO SCH ×3 (08:04→20:07)
[2021-07-02] MEDS: PANTOPRAZOLE 40 MG/10 ML VIAL IV SCH (08:04)
[2021-07-02] MEDS: SYMBICORT 160-4.5 MCG INHALER INHALATION SCH ×2 (08:05→20:34)
--- NOTE | 2021-07-02 08:46 | P.PN ---
Subjective Patient is seen in follow-up for end-stage renal disease. He is maintained on hemodialysis on Saturday schedule. No active bleeding. No chest pain or shortness of breath. Hemodynamically stable. Vital signs are stable. General: The patient appeared well nourished and normally developed. HEENT: Head exam is unremarkable. LUNGS: Breath sounds decreased. HEART: Rate and Rhythm are regular. ABDOMEN: Soft, no distention. EXTREMITITES: No edema. Objective - Vital Signs Vital signs: Vital Signs Temp 97.7 F 07/02/21 08:00 Pulse 69 07/02/21 08:00 Resp 19 07/02/21 08:00 BP 154/67 07/02/21 08:00 Pulse Ox 96 07/02/21 08:00 Intake & Output 07/01/21 07/02/21 07/02/21 18:59 06:59 18:59 Intake Total 540 Balance 540 Intake: Oral 540 Other: Voiding Method Urinal # Voids 1 1 # Bowel Movements 1 - Labs CBC & Chem 7: 07/01/21 11:08 06/30/21 05:38 Labs: Abnormal Lab Results - Last 24 Hours (Table) 07/01/21 07/01/21 07/01/21 Range/Units 11:08 17:03 20:24 RBC 2.70 L (4.30-5.90) m/uL Hgb 7.3 L (13.0-17.5) gm/dL Hct 23.4 L (39.0-53.0) % RDW 16.7 H (11.5-15.5) % POC Glucose (mg/dL) 195 H 179 H (75-99) mg/dL Assessment and Plan Plan: Assessment: 1. End-stage renal disease maintained on hemodialysis on Saturday schedule. 2. Acute blood loss anemia status post blood transfusion. Scheduled for EGD on Saturday. Has required multiple hospitalizations for the anemia. No active bleeding. On . Also being followed by hematology. 3. Hypertension with chronic kidney disease. Stable. 4. Diabetes mellitus. 5. Chronic systolic heart failure with ejection fraction of 45 for 50% with mild to moderate aortic regurgitation. Plan: Hemodialysis tomorrow. EGD Saturday.
[2021-07-02] MEDS: SODIUM FERRIC GLUCONAT-SUCROSE 125 MG in SODIUM CHLORIDE 0.9% 100 ML IVPB SCH (08:59)
--- NOTE | 2021-07-02 10:21 | P.PN ---
Subjective Progress Note Date: 07/02/21 Principal diagnosis: Anemia Patient without new complaints. Denies bleeding. Scheduled for upper endoscopy tomorrow. Labs pending. Objective - Vital Signs Vital signs: Vital Signs Temp 97.7 F 07/02/21 08:00 Pulse 69 07/02/21 08:00 Resp 19 07/02/21 08:00 BP 154/67 07/02/21 08:00 Pulse Ox 96 07/02/21 08:00 Intake & Output 07/01/21 07/02/21 07/02/21 18:59 06:59 18:59 Intake Total 540 Balance 540 Weight 78.3 kg Intake: Oral 540 Other: Voiding Method Urinal Urinal # Voids 1 1 # Bowel Movements 1 - Exam Abdomen: Soft, nontender, nondistended - Labs CBC & Chem 7: 07/01/21 11:08 06/30/21 05:38 Labs: Abnormal Lab Results - Last 24 Hours (Table) 07/01/21 07/01/21 07/01/21 Range/Units 11:08 17:03 20:24 RBC 2.70 L (4.30-5.90) m/uL Hgb 7.3 L (13.0-17.5) gm/dL Hct 23.4 L (39.0-53.0) % RDW 16.7 H (11.5-15.5) % POC Glucose (mg/dL) 195 H 179 H (75-99) mg/dL Assessment and Plan (1) Symptomatic anemia Narrative/Plan: Check morning labs. Proceed with EGD in a.m. Current Visit: Yes Status: Acute Priority: High Code(s): D64.9 - ANEMIA, UNSPECIFIED SNOMED Code(s): 708320135
[2021-07-02 12:13] LABS: Glucose,Whole Blood 116 mg/dL (75-99)
--- NOTE | 2021-07-02 12:30 | P.PN ---
Subjective Progress Note Date: 07/02/21 HISTORY OF PRESENT ILLNESS This is a 71-year-old male with past medical history of chronic renal failure on hemodialysis, ischemic heart disease with coronary artery disease status post stent placement to the RCA recently, COPD, diabetes, gastroesophageal reflux disease, hyperlipidemia, hypertension. Patient was admitted due to generalized weakness and found to have a hemoglobin of 5.1. Patient has been transfused 2 units packed RBCs with hemoglobin today of 7.3 Patient has been seen by general surgery with plan for EGD on Saturday. Patient states that he did have some chest pain last evening that came and went. He did not receive any treatment and the pain went away on its own. 07/02/2021: Patient is scheduled for endoscopy tomorrow with Dr. Huerta, aspirin and eliquis are on hold. Patient is expecting to have hemodialysis tomorrow as well. Patient's been started on IV iron infusions 2/3. Oxygen has been weaned down from 5 L to 2 L. PHYSICAL EXAMINATION Gen: This is a 71-year-old male. His resting bed appears to be comfortable and in no acute distress. VS: Afebrile, heart rate 63, blood pressure 152/67, pulse ox 94% on 2 L nasal cannula. HEENT: Head is atraumatic, normocephalic. Pupils equal, round. Sclerae is anicteric. NECK: Supple. No JVD. No lymphadenopathy. No thyromegaly. LUNGS: Diminished breath sounds. No wheezes or rhonchi. No intercostal retractions. HEART: Regular rate and rhythm. No murmur. ABDOMEN: Soft. Bowel sounds are present. No masses. No tenderness. EXTREMITIES: Trace bilateral pedal edema. No calf tenderness. NEUROLOGICAL: Patient is awake, alert and oriented x3. Cranial nerves 2 through 12 are grossly intact. ASSESSMENT Severe anemia with symptoms of weakness End stage renal disease on hemodialysis Ischemic heart disease Coronary artery disease with recent stent placement Hypertension Hyperlipidemia PLAN Hold aspirin and eliquis, resume once cleared by general surgery Continue current cardiac medications May consider hematology consult Thank you kindly for this consultation. Nurse practitioner note has been reviewed, I agree with documented findings and plan of care. Patient was seen and examined. Objective - Vital Signs Vital signs: Vital Signs Temp 97.7 F 07/02/21 08:00 Pulse 69 07/02/21 08:00 Resp 19 07/02/21 08:00 BP 154/67 07/02/21 08:00 Pulse Ox 96 07/02/21 08:00 Intake & Output 07/01/21 07/02/21 07/02/21 18:59 06:59 18:59 Intake Total 540 Balance 540 Weight 78.3 kg Intake: Oral 540 Other: Voiding Method Urinal Urinal # Voids 1 1 # Bowel Movements 1 - Labs CBC & Chem 7: 07/01/21 11:08 06/30/21 05:38 Labs: Abnormal Lab Results - Last 24 Hours (Table) 07/01/21 07/01/21 07/01/21 Range/Units 11:08 17:03 20:24 RBC 2.70 L (4.30-5.90) m/uL Hgb 7.3 L (13.0-17.5) gm/dL Hct 23.4 L (39.0-53.0) % RDW 16.7 H (11.5-15.5) % POC Glucose (mg/dL) 195 H 179 H (75-99) mg/dL
[2021-07-02 12:50] LABS: Anisocytosis Slight; HCT 25.9 % (39.0-53.0); HGB 7.7 gm/dL (13.0-17.5); Hypochromasia Marked; MCH 26.3 pg (25.0-35.0); MCHC 29.5 g/dL (31.0-37.0); Mean Platelet Volume 9.7; Platelet Count 382 k/uL (150-450); Poikilocytosis Moderate; RBC 2.92 m/uL (4.30-5.90); RDW 16.2 % (11.5-15.5); WBC 8.3 k/uL (3.8-10.6)
[2021-07-02] MEDS ORDERED: LACTATED RINGERS 1,000 ML IV SCH (16:30)
[2021-07-02 17:15] LABS: Glucose,Whole Blood 215 mg/dL (75-99)
--- NOTE | 2021-07-02 19:41 | P.PN ---
Subjective Progress Note Date: 07/01/21 Principal diagnosis: Acute symptomatic anemia Hyponatremia End-stage renal disease/HD 71-year-old male patient with history of CAD, ESRD/HD, who presents to the hospital with complaint of weakness and was found to be markedly anemic; patient received 2 units of packed RBCs with improved hemoglobin at 7.5 Patient has been evaluated by general surgery with plans for EGD on Saturday07/01/2021 Patient is seen and evaluated resting comfortably in bed; denies any complaint of nausea, vomiting or abdominal pain; no complaint of bloody stools Vital signs are reviewed temperature 98.8, pulse 76, respiration 18 and blood pressure of 129/60 Lab review shows WBC 7.1, hemoglobin 7.3, hematocrit 23.4 and platelet count of 376 Hemoglobin remained stable; surgery is following with plans for EGD on Saturday Objective - Vital Signs Vital signs: Vital Signs Temp 97.7 F 07/01/21 12:00 Pulse 70 07/01/21 12:00 Resp 18 07/01/21 12:00 BP 129/59 07/01/21 12:00 Pulse Ox 95 07/01/21 12:00 Intake & Output 06/30/21 07/01/21 07/01/21 18:59 06:59 18:59 Intake Total 354 300 Output Total 1999 Balance -1646 300 Weight 78.5 kg Intake: Oral 354 300 Output: Hemodialysis 1999 Other: Voiding Method Urinal # Voids 1 2 # Bowel Movements 1 - Exam PHYSICAL EXAMINATION: GENERAL: The patient is alert and oriented x3, not in any acute distress. Well developed, well nourished. HEENT: Pupils are round and equally reacting to light. EOMI. No scleral icterus. No conjunctival pallor. Normocephalic, atraumatic. No pharyngeal erythema. No thyromegaly. CARDIOVASCULAR: S1 and S2 present. No murmurs, rubs, or gallops. PULMONARY: Chest is clear to auscultation, no wheezing or crackles. ABDOMEN: Soft, nontender, nondistended, normoactive bowel sounds. No palpable organomegaly. MUSCULOSKELETAL: No joint swelling or deformity. EXTREMITIES: No cyanosis, clubbing, or pedal edema. NEUROLOGICAL: Gross neurological examination did not reveal any focal deficits. SKIN: No rashes. - Labs CBC & Chem 7: 07/02/21 12:37 06/30/21 05:38 Labs: Abnormal Lab Results - Last 24 Hours (Table) 06/30/21 06/30/21 06/30/21 Range/Units 16:48 18:56 18:58 RBC 2.80 L (4.30-5.90) m/uL Hgb 7.3 L (13.0-17.5) gm/dL Hct 23.5 L (39.0-53.0) % RDW 16.9 H (11.5-15.5) % POC Glucose (mg/dL) 214 H 184 H (75-99) mg/dL 06/30/21 07/01/21 Range/Units 20:14 11:08 RBC 2.70 L (4.30-5.90) m/uL Hgb 7.3 L (13.0-17.5) gm/dL Hct 23.4 L (39.0-53.0) % RDW 16.7 H (11.5-15.5) % POC Glucose (mg/dL) 178 H (75-99) mg/dL Assessment and Plan Assessment: 1. Acute symptomatic anemia; - patient is status post transfusion with 2 units packed RBCs, hemoglobin stable at 7.4 this morning; patient has been placed on iron sulfate and Aranesp; Plavix has been placed on hold - Gen. surgery on board and patient is scheduled for EGD on Saturday - We will monitor CBC with plans to transfuse if hemoglobin falls below 7; Plavix remains on hold 2. End-stage renal disease/HD; nephrology on board to resume home schedule of dialysis 3. Hyponatremia; improving; continue to monitor electrolytes 4. COPD; not in exacerbation; Symbicort 2 puffs twice a day 5. Coronary artery disease; patient has been resumed on aspirin, statin therapy, beta blockers and Imdur; Plavix has been placed on hold 6. Diabetes mellitus type 2; Levemir 20 units subcu daily at bedtime; monitor Accu-Cheks every before meals and at bedtime with insulin sliding scale 7. Hypertension; continue with home dose of metoprolol and Imdur 8. Hyperlipidemia; Lipitor 20 mg by mouth daily at bedtime DVT prophylaxis; SCDs CODE STATUS; full code
--- NOTE | 2021-07-02 19:45 | P.PN ---
Subjective Progress Note Date: 07/02/21 Principal diagnosis: Acute symptomatic anemia Hyponatremia End-stage renal disease/HD 71-year-old male patient with history of CAD, ESRD/HD, who presents to the hospital with complaint of weakness and was found to be markedly anemic; patient received 2 units of packed RBCs with improved hemoglobin at 7.5 Patient has been evaluated by general surgery with plans for EGD on Saturday07/01/2021 Patient is seen and evaluated resting comfortably in bed; denies any complaint of nausea, vomiting or abdominal pain; no complaint of bloody stools Vital signs are reviewed temperature 98.8, pulse 76, respiration 18 and blood pressure of 129/60 Lab review shows WBC 7.1, hemoglobin 7.3, hematocrit 23.4 and platelet count of 376 Hemoglobin remained stable; surgery is following with plans for EGD on Saturday07/02/2021 Patient is seen and evaluated with family members at bedside; denies any specific complaints Vital signs review shows temperature 97.7, pulse 69, respiration 18 and blood pressure 154/67 Lab review shows a hemoglobin of 7.7 with hematocrit 25.9 Nephrology on board; patient is maintained on hemodialysis on Saturday and Saturday Patient is scheduled for endoscopy tomorrow morning; cardiology is recommending to hold aspirin and eliquis, resume once cleared by general surgery Objective - Vital Signs Vital signs: Vital Signs Temp 97.6 F 07/02/21 11:58 Pulse 63 07/02/21 11:58 Resp 18 07/02/21 11:58 BP 152/67 07/02/21 11:58 Pulse Ox 94 L 07/02/21 11:58 Intake & Output 07/01/21 07/02/21 07/02/21 18:59 06:59 18:59 Intake Total 540 Balance 540 Weight 78.3 kg Intake: Oral 540 Other: Voiding Method Urinal Urinal # Voids 1 1 1 # Bowel Movements 1 - Exam PHYSICAL EXAMINATION: GENERAL: The patient is alert and oriented x3, not in any acute distress. Well developed, well nourished. HEENT: Pupils are round and equally reacting to light. EOMI. No scleral icterus. No conjunctival pallor. Normocephalic, atraumatic. No pharyngeal erythema. No thyromegaly. CARDIOVASCULAR: S1 and S2 present. No murmurs, rubs, or gallops. PULMONARY: Chest is clear to auscultation, no wheezing or crackles. ABDOMEN: Soft, nontender, nondistended, normoactive bowel sounds. No palpable organomegaly. MUSCULOSKELETAL: No joint swelling or deformity. EXTREMITIES: No cyanosis, clubbing, or pedal edema. NEUROLOGICAL: Gross neurological examination did not reveal any focal deficits. SKIN: No rashes. - Labs CBC & Chem 7: 07/02/21 12:37 06/30/21 05:38 Labs: Abnormal Lab Results - Last 24 Hours (Table) 07/01/21 07/01/21 07/02/21 Range/Units 17:03 20:24 11:44 POC Glucose (mg/dL) 195 H 179 H 116 H (75-99) mg/dL Assessment and Plan Assessment: 1. Acute symptomatic anemia; - patient is status post transfusion with 2 units packed RBCs, hemoglobin stable at 7.4 this morning; patient has been placed on iron sulfate and Aranesp; Plavix has been placed on hold - Gen. surgery on board and patient is scheduled for EGD on Saturday - We will monitor CBC with plans to transfuse if hemoglobin falls below 7; Plavix remains on hold 2. End-stage renal disease/HD; nephrology on board to resume home schedule of dialysis 3. Hyponatremia; improving; continue to monitor electrolytes 4. COPD; not in exacerbation; Symbicort 2 puffs twice a day 5. Coronary artery disease; patient has been resumed on aspirin, statin therapy, beta blockers and Imdur; Plavix has been placed on hold 6. Diabetes mellitus type 2; Levemir 20 units subcu daily at bedtime; monitor Accu-Cheks every before meals and at bedtime with insulin sliding scale 7. Hypertension; continue with home dose of metoprolol and Imdur 8. Hyperlipidemia; Lipitor 20 mg by mouth daily at bedtime DVT prophylaxis; SCDs CODE STATUS; full code
[2021-07-02] MEDS: ACETAMINOPHEN TAB 325 MG TAB PO PRN (20:06)
[2021-07-02] MEDS: ASPIRIN 81 MG PO SCH (20:07)
[2021-07-02] MEDS: ATORVASTATIN 20 MG TAB PO SCH (20:07)
[2021-07-02] MEDS: MELATONIN 5 MG TABLET PO SCH (20:07)
[2021-07-02 20:08] LABS: Glucose,Whole Blood 237 mg/dL (75-99)
[2021-07-02] MEDS: INSULIN DETEMIR (LEVEMIR) 100 UNIT/ML SYR SQ SCH (20:11)
[2021-07-02] MEDS: IPRATROPIUM-ALBUTEROL 3 ML NEB INHALATION PRN (20:34)
[2021-07-03 06:08] LABS: Glucose,Whole Blood 98 mg/dL (75-99)
[2021-07-03] MEDS: FERROUS SULFATE 325 MG TAB PO SCH (06:52)
[2021-07-03] MEDS: INSULIN ASPART (NovoLOG) 100 UNIT/ML VIAL SQ SCH ×4 (06:52→11:38)
[2021-07-03] MEDS: IPRATROPIUM-ALBUTEROL 3 ML NEB INHALATION PRN (07:51)
[2021-07-03] MEDS: SYMBICORT 160-4.5 MCG INHALER INHALATION SCH (07:51)
[2021-07-03 08:21] LABS: Anisocytosis Slight; HCT 25.9 % (39.0-53.0); HGB 7.5 gm/dL (13.0-17.5); Hypochromasia Marked; MCH 25.8 pg (25.0-35.0); MCHC 29.1 g/dL (31.0-37.0); MCV 88.6 fL (80.0-100.0); Mean Platelet Volume 8.7; Platelet Count 398 k/uL (150-450); Poikilocytosis Moderate; RBC 2.92 m/uL (4.30-5.90); RDW 16.8 % (11.5-15.5); WBC 8.4 k/uL (3.8-10.6)
[2021-07-03 08:26] LABS: Calcium 9.1 mg/dL (8.4-10.2); Potassium 4.4 mmol/L (3.5-5.1)
[2021-07-03] MEDS: SODIUM FERRIC GLUCONAT-SUCROSE 125 MG in SODIUM CHLORIDE 0.9% 100 ML IVPB SCH (09:40)
[2021-07-03] MEDS: amLODIPine 5 MG TAB PO SCH (11:35)
[2021-07-03] MEDS: ISOSORBIDE MONONITRATE ER 60 MG TAB.ER.24H PO SCH (11:36)
[2021-07-03] MEDS: GABAPENTIN 100 MG CAP PO SCH (11:36)
[2021-07-03] MEDS: PANTOPRAZOLE 40 MG/10 ML VIAL IV SCH (11:36)
[2021-07-03] MEDS: TAMSULOSIN 0.4 MG CAP.ER.24H PO SCH (11:36)
[2021-07-03] MEDS: DULoxetine HCL 20 MG CAPSULE.DR PO SCH (11:36)
[2021-07-03] MEDS: METOPROLOL TARTRATE 25 MG TAB PO SCH (11:36)
[2021-07-03] MEDS: OXYBUTYNIN CHLORIDE 5 MG TAB PO SCH (11:36)
[2021-07-03 11:37] LABS: Glucose,Whole Blood 89 mg/dL (75-99)
--- NOTE | 2021-07-03 12:09 | PN ---
PROGRESS NOTE Patient is seen for followup for end-stage renal disease. Patient is currently seen on hemodialysis. He is tolerating his treatment well. He is scheduled for EGD today. On examination, blood pressure 182/73, heart rate 82 per minute. He is afebrile. EXAMINATION OF THE HEART: S1 and S2. EXAMINATION OF LUNGS: Bilateral breath sounds are heard. Abdomen is soft, non-tender. Examination of lower extremities shows no significant edema. HEALTH INFORMATION CODER EXAM: Grossly intact. Labs show sodium 137, potassium 4.4, BUN 48, creatinine 3.76, hemoglobin 7.5 g/dL. ASSESSMENT: 1. End-stage renal disease, on hemodialysis on a Saturday, Saturday, Saturday schedule. 2. Recurrent anemia. Rule out GI bleed. Scheduled for EGD today. 3. Hypertension with chronic kidney disease. 4. Type 2 diabetes. 5. Chronic congestive heart failure, ejection fraction 45% to 50%, currently not in failure. 6. Mild to moderate aortic regurgitation. PLAN: Hemodialysis today and follow up on results of EGD. MMODL / EMILYN: [id number] /
[2021-07-03 12:56] VITALS: RESP 18
[2021-07-03 13:23] VITALS: BMI 28.8
[2021-07-03 14:43] VITALS: BP 153/61; PULSE 74; TEMP 97.8
--- NOTE | 2021-07-03 14:57 | PN ---
PROGRESS NOTE Mr. Egan is a gentleman with end-stage renal disease on hemodialysis and also has anemia. He has history of CAD and underwent stenting performed in March. However, he has low hemoglobin. He is currently on dialysis and is going to have an endoscopy soon. His aspirin and Plavix are being held. He has no chest pain. He is resting comfortably. Vital signs are stable. No JVD. S1, S2 heard normally. Short systolic murmur noted. Lungs reveal diminished air entry. Abdomen is soft. Lower extremities reveal diminished pulses. Central nervous system grossly within normal limits. Hemoglobin today is 7.5. Endoscopy will be performed soon to rule out any active site of bleeding. Currently is on aspirin, Plavix has been held and the patient is resting comfortably. Based on the endoscopy, we will make further recommendations. Currently dialysis is in progress and patient is tolerating it well. No anginal symptoms. MMODL / IJN: [id number] /
[2021-07-03] MEDS ORDERED: LIDOCAINE 1% INJ 10MG/ML (20 ML MDV) ONE (15:07)
[2021-07-03] MEDS ORDERED: PROPOFOL 10 MG/ML 20 ML VIAL IV ONE (15:07)
[2021-07-03] MEDS ORDERED: LACTATED RINGERS 1,000 ML IV ONE (15:13)
--- NOTE | 2021-07-03 15:27 | PN ---
PROGRESS NOTE DATE OF SERVICE: 07/03/2021 This 71-year-old gentleman with a past medical history of end-stage renal disease, on hemodialysis, was admitted with significant anemia. The patient has been scheduled to have EGD to rule out any GI cause of blood loss. Patient has received 3 units. Hemoglobin is only 7.5. Patient is complaining of tiredness and weakness, and hemodialysis is also being carried out. No chest pain. No palpitations. No fever. PHYSICAL EXAMINATION: Alert and oriented x3. Pulse 67, blood pressure 162/74, respiration 20, temperature 97.4. HEENT: Conjunctivae pale. NECK: No jugular venous distention. CARDIOVASCULAR: S1, S2 muffled. RESPIRATION: Breath sounds diminished at the bases. A few scattered rhonchi. ABDOMEN: Soft. NERVOUS SYSTEM: No focal deficit. LABS: Hemoglobin 7.5, creatinine 3.76. ASSESSMENT: 1. Anemia, possibly acute on chronic. Rule out acute GI blood loss anemia, status post multiple transfusions x3. 2. Chronic end-stage renal disease, on hemodialysis. 3. Symptomatic anemia. 4. Hyponatremia. 5. Elevated random glucose. 6. History of coronary artery disease. 7. History of chronic obstructive pulmonary disease. 8. Diabetes mellitus, type 2. 9. Gastroesophageal reflux disease. 10.History of gastrointestinal bleed. 11.Hypertension. 12.Hyperlipidemia. 13.History of pneumonia. 14.History of vascular disorder. 15.History of benign colonic polyp which seems to be suspected cause of GI bleed previously. 16.History of partial small-bowel obstruction. 17.History of restless legs syndrome. 18.History of vertigo. 19.History of cholecystectomy. 20.History of continued ongoing nicotine dependence. 21.FULL CODE. RECOMMENDATIONS AND DISCUSSION: In this 71-year-old gentleman who presented with multiple complex medical issues, at this time continue the current medications, continue symptomatic treatment. I would also recommend one unit of blood transfusion because of the symptomatic anemia. Otherwise, repeat labs in the morning. Await EGD report to be performed by Surgery. Continue the rest of the medications. Guarded prognosis because of multiple complex medical issues. Further recommendations to follow. MMODL / IJN: [id number] /
--- NOTE | 2021-07-03 15:32 | P.OP ---
Date of Procedure: 07/03/21 Preoperative Diagnosis: GI bleed Postoperative Diagnosis: Mild antral gastritis Procedure(s) Performed: EGD Anesthesia: MAC Surgeon: Adolfo Huerta Pathology: other (Antrum) Condition: stable Disposition: PACU Description of Procedure: Patient's placed on the endoscopy table in the lateral position. He received IV sedation the gastroscope placed oropharynx passed in the esophagus and stomach. Scope was then placed through the pylorus. The first and second portion of the duodenum appeared normal. Scope was then brought back the antrum this was mildly inflamed. Biopsies performed. Scope was unretroflexed and remainder stomach appeared normal. The GE junction was at 40 cm the distal esophagus appeared normal. The proximal esophagus appeared normal. The scope was withdrawn. There is no evidence of any blood in the upper GI tract.
[2021-07-03 16:33] LABS: Glucose,Whole Blood 111 mg/dL (75-99)
--- NOTE | 2021-07-05 19:16 | DS ---
DISCHARGE SUMMARY DATE OF SERVICE: 07/05/2021 FINAL DIAGNOSES: 1. Anemia, possibly acute on chronic, rule out possibly GI blood loss anemia, status post multiple transfused x3. 2. Chronic kidney disease, on hemodialysis. 3. Symptomatic anemia. 4. Hyponatremia. 5. Elevated random glucose. 6. History of coronary artery disease. 7. History of chronic obstructive pulmonary disease. 8. Diabetes type 2. 9. Gastroesophageal reflux disease. 10.History of gastrointestinal bleed. 11.Hypertension. 12.Hyperlipidemia. 13.History of pneumonia. 14.History of vascular disorder. 15.History of benign colon polyps seems to be suspect cause of the GI bleed previously. 16.History of partial small bowel obstruction. 17.History of restless legs syndrome. 18.History of vertigo. 19.History of cholecystectomy. 20.History of continued ongoing nicotine dependence. 21.FULL CODE. DISCHARGE DISPOSITION: The patient left the hospital AGAINST MEDICAL ADVICE. HISTORY OF PRESENT ILLNESS: This 71-year-old gentleman admitted with symptoms of severe symptomatic anemia, hemoglobin 5.5. Patient had multiple transfusions. The patient also had an endoscopy done by Dr. Huerta. EGD did not show any acute abnormality, but the patient left the hospital AGAINST MEDICAL ADVICE. As mentioned, the patient's prognosis remained guarded throughout the hospitalization. Patient received 3 units of transfusion and the last hemoglobin available was 7.5. MMODL / IJN: [id number] /
== END 2021-07-03 17:00 | disposition left against medical advice (07) | DRG 811 ==
LOC: EC 15:17 → 3SCARD 17:02
PROVIDERS: ADMIT Hospitalist; ATTEND Hospitalist
PROC: 30233N1 Transfusion of Nonautologous Red Blood Cells into Peripheral Vein, Percutaneous Approach (ICD-10-PCS; principal; 2021-06-28)
PROC: 5A1D70Z Performance of Urinary Filtration, Intermittent, Less than 6 Hours Per Day (ICD-10-PCS; 2021-06-30)
PROC: 0DB78ZX Excision of Stomach, Pylorus, Via Natural or Artificial Opening Endoscopic, Diagnostic (ICD-10-PCS; 2021-07-03)
DX: D62 Acute posthemorrhagic anemia (principal); N18.6 End stage renal disease; I13.2 Hypertensive heart and chronic kidney disease with heart failure and with stage 5 chronic kidney disease, or end stage renal disease; I50.22 Chronic systolic (congestive) heart failure; E87.1 Hypo-osmolality and hyponatremia; E11.22 Type 2 diabetes mellitus with diabetic chronic kidney disease; E11.51 Type 2 diabetes mellitus with diabetic peripheral angiopathy without gangrene; K29.70 Gastritis, unspecified, without bleeding; Z79.4 Long term (current) use of insulin; Z99.2 Dependence on renal dialysis; J44.9 Chronic obstructive pulmonary disease, unspecified; Z20.822 Contact with and (suspected) exposure to COVID-19; D63.1 Anemia in chronic kidney disease; I35.1 Nonrheumatic aortic (valve) insufficiency; I25.10 Atherosclerotic heart disease of native coronary artery without angina pectoris; K21.9 Gastro-esophageal reflux disease without esophagitis; E78.5 Hyperlipidemia, unspecified; G25.81 Restless legs syndrome; F43.10 Post-traumatic stress disorder, unspecified; G47.00 Insomnia, unspecified; M54.42 Lumbago with sciatica, left side; M54.41 Lumbago with sciatica, right side; H54.7 Unspecified visual loss; H91.90 Unspecified hearing loss, unspecified ear; I25.2 Old myocardial infarction; Z77.098 Contact with and (suspected) exposure to other hazardous, chiefly nonmedicinal, chemicals; R91.8 Other nonspecific abnormal finding of lung field; F17.210 Nicotine dependence, cigarettes, uncomplicated; Z79.82 Long term (current) use of aspirin; Z79.51 Long term (current) use of inhaled steroids; Z79.02 Long term (current) use of antithrombotics/antiplatelets; Z79.899 Other long term (current) drug therapy; Z87.01 Personal history of pneumonia (recurrent); Z86.010 Personal history of colon polyps; Z90.49 Acquired absence of other specified parts of digestive tract; Z87.19 Personal history of other diseases of the digestive system; Z95.828 Presence of other vascular implants and grafts; Z87.81 Personal history of (healed) traumatic fracture; Z95.5 Presence of coronary angioplasty implant and graft; Z98.890 Other specified postprocedural states; Z91.041 Radiographic dye allergy status; Z80.9 Family history of malignant neoplasm, unspecified
CPT/HCPCS: 36415; 43239; 71045; 76700; 80048; 80053; 83735; 85025; 85027; 85610; 85730; 86850; 86900; 86901; 86920; 87635; 88305; 90935; 93005; 94640; 94660; 94760; 96374; 96375; 99285

== ENCOUNTER 2021-07-13 21:02 | Inpatient (IN) | payer OTHER, MEDICARE ==
[2021-07-13] MEDS ORDERED: LORazepam 2 MG/ML INJ IV STA (21:04)
[2021-07-13] MEDS ORDERED: NITROGLYCERIN-D5W PMX 50 MG in DEXTROSE/WATER 1 250ML.BAG IV ONE (21:05)
[2021-07-13] MEDS: WATER IV STA ×2 (21:21→21:46)
[2021-07-13] MEDS: DEXTROSE IV STA ×2 (21:21→21:46)
[2021-07-13] MEDS: NITROGLYCERIN IV STA ×2 (21:21→21:46)
[2021-07-13 21:30] LABS: VBG PH 7.26 (7.31-7.41)
[2021-07-13] MEDS ORDERED: NITROGLYCERIN 1000MCG/10ML SYRINGE IV ONE (21:30)
[2021-07-13 21:44] LABS: Albumin 3.6 g/dL (3.5-5.0); Calcium 8.5 mg/dL (8.4-10.2); Magnesium 1.9 mg/dL (1.6-2.3); Potassium 4.3 mmol/L (3.5-5.1); Total Bilirubin 0.3 mg/dL (0.2-1.3); Total Protein 6.9 g/dL (6.3-8.2)
[2021-07-13 21:51] LABS: INR 0.9 (<1.2); Partial Thromboplastin Time 22.4 sec (22.0-30.0); Prothrombin Time 10.2 sec (9.0-12.0)
--- NOTE | 2021-07-13 21:54 | XR ---
EXAMINATION TYPE: XR chest 1V portable DATE OF EXAM: 07/13/2021 COMPARISON: 06/28/2021 HISTORY: 71 years Male. STUDY INDICATION GIVEN: Chest Pain . TECHNIQUE: Frontal chest radiograph IMPRESSION: There is cardiomegaly with pulmonary congestion and interstitial edema. Findings are likely related t o congestive heart failure similar to prior study. Developing infiltrate/pneumonia cannot be entirely excluded. There is a portacatheter which is accessed, the tip is collecting in the right atrium. No pneumothorax. Small bilateral right greater than left pleural effusions. Osseous structures are stable. Overall there is mild improvement lung aeration compared to prior.
[2021-07-13 21:57] LABS: Anisocytosis Slight; Basophils # (A) 0.1 k/uL (0-0.2); Basophils % (A) 0 %; Eosinophils # (A) 0.2 k/uL (0-0.7); Eosinophils % (A) 1 %; HCT 34.8 % (39.0-53.0); HGB 10.1 gm/dL (13.0-17.5); Hypochromasia Marked; Lymphocytes # (A) 1.9 k/uL (1.0-4.8); Lymphocytes % (A) 11 %; MCH 26.8 pg (25.0-35.0); MCHC 29.2 g/dL (31.0-37.0); MCV 91.7 fL (80.0-100.0); Mean Platelet Volume 8.8; Monocytes # (A) 0.9 k/uL (0-1.0); Monocytes % (A) 5 %; Neutrophils # (A) 13.6 k/uL (1.3-7.7); Neutrophils % (A) 80 %; Platelet Count 476 k/uL (150-450); Poikilocytosis Slight; RBC 3.79 m/uL (4.30-5.90)
--- NOTE | 2021-07-13 22:39 | ED ---
SOB HPI - General Chief Complaint: Shortness of Breath Stated Complaint: KASSANDRA Time Seen by Provider: 07/13/21 21:04 Source: patient, EMS Mode of arrival: EMS Limitations: no limitations - History of Present Illness Initial Comments: Pt is a 71-year-old gentleman with extensive past medical history end-stage renal disease on dialysis Saturday, dialysis was postponed for today due to the think. Patient presents in acute respiratory distress due to flash pulmonary edema. History is limited due to respiratory distress. - Related Data Home Medications Medication Instructions Recorded Confirmed RX: Ergocalciferol (Vitamin D2) 50,000 unit PO Q14D 07/18/17 06/28/21 [Vitamin D2] RX: Aspirin EC [Ecotrin Low Dose] 81 mg PO HS 02/10/18 06/28/21 RX: DULoxetine HCL [Cymbalta] 20 mg PO DAILY 10/27/20 06/28/21 RX: Melatonin 5 mg PO HS 12/19/20 06/28/21 RX: Sennosides-Docusate Sodium 2 tab PO TID PRN 12/31/20 06/28/21 [Senokot-S] RX: Gabapentin [Neurontin] 100 mg PO TID 01/23/21 06/28/21 RX: Nitroglycerin Sl Tabs 0.4 mg SL Q5M PRN 01/23/21 06/28/21 [Nitrostat] RX: rOPINIRole HCL [Requip] 0.5 mg PO TID 01/23/21 06/28/21 RX: Furosemide [Lasix] 80 mg PO DAILY 02/17/21 06/28/21 RX: Lidocaine-Prilocaine Cream 1 applic TOPICAL DIRECTED PRN 02/17/21 [Emla Cream 2.5%/2.5%] RX: Atorvastatin [Lipitor] 20 mg PO HS 05/08/21 06/28/21 RX: Ondansetron [Zofran] 4 mg PO DAILY PRN 05/08/21 06/28/21 Oxybutynin Chloride [Ditropan] 5 mg PO DAILY 06/28/21 06/28/21 Tamsulosin HCl [Flomax] 0.4 mg PO DAILY 06/28/21 06/28/21 Previous Rx's Medication Instructions Recorded RX: Isosorbide Mononitrate ER 60 mg PO BID #60 tab.er.24h 04/21/20 [Imdur] RX: Budesonide-Formot 160-4.5 Mcg 2 puff INHALATION RT-BID #1 inhaler 02/01/21 [Symbicort 160-4.5 Mcg Inhaler] RX: Omeprazole [PriLOSEC] 40 mg PO HS #0 02/18/21 RX: Clopidogrel [Plavix] 75 mg PO DAILY #30 tab 04/12/21 RX: Metoprolol Tartrate [Lopressor] 25 mg PO BID #60 tab 04/12/21 RX: Insulin Glargine [Lantus Vial] 20 unit SQ HS #0 05/10/21 RX: amLODIPine [Norvasc] 5 mg PO DAILY #30 tab 05/10/21 Insulin Aspart [NovoLOG] 3 units SQ AC-TID #10 ml 06/08/21 RX: Ferrous Sulfate [Iron (65 MG 325 mg PO BID-W/MEALS #60 tab 06/08/21 Elemental)] Allergies Allergy/AdvReac Type Severity Reaction Status Date / Time Iodinated Contrast Media AdvReac CAN'T Verified 07/13/21 21:08 TAKE, RENAL DISEASE Iodine and Iodide Containing AdvReac CAN'T Verified 07/13/21 21:08 Produc TAKE, RENAL DISEASE Review of Systems ROS Statement: Those systems with pertinent positive or pertinent negative responses have been documented in the HPI. ROS Other: All systems not noted in ROS Statement are negative. Past Medical History Past Medical History: Coronary Artery Disease (CAD), Chest Pain / Angina, COPD, Diabetes Mellitus, GERD/Reflux, GI Bleed, Hyperlipidemia, Hypertension, Pneumonia, Renal Disease, Vascular Disorder Additional Past Medical History / Comment(s): IDDM type II, lower GI bleed, benign colon polyps, spouse states micro bleeds in intestine are suspected, abdominal distention comes and goes which is nearly daily, partial SBO, chronic renal disease stage IV HD MWF, iron anemia with iron transfusions (recent R upper chest mediport for infusions), PVD, stable lung nodules, chronic low back pain with bilateral sciatica, RLS, vertigo, insomnia, past agent orange exposure. Last Myocardial Infarction Date:: 03/2020 History of Any Multi-Drug Resistant Organisms: None Reported Past Surgical History: Cholecystectomy, Heart Catheterization Additional Past Surgical History / Comment(s): 03/25/20 R sublclavian mediport, R carotid stent done in [place], EGD/colonoscopyDecember 2016, endoscopic capsule, fx lt wrist -sx re-set, aortagram, bilateral leg revascularizations/stents, Left upper arm fistula Past Anesthesia/Blood Transfusion Reactions: No Reported Reaction Additional Past Anesthesia/Blood Transfusion Reaction / Comment(s): Pt has had blood transfusion without reaction. Date of Last Stent Placement:: 04/27/20 Past Psychological History: No Psychological Hx Reported Smoking Status: Current every day smoker Past Alcohol Use History: None Reported Past Drug Use History: None Reported - Past Family History Father History Unknown: Yes Mother Family Medical History: Cancer Additional Family Medical History / Comment(s): Mother from metastatic cancer pelvic origin. General Exam - General Exam Comments Initial Comments: Physical Exam GENERAL: Chronically ill-appearing gentleman in acute respiratory distress HENT: Normocephalic, Atraumatic. EYES: PERRL, EOMI PULMONARY: Crackles in all lung wing CARDIOVASCULAR: Tachycardia regular ABDOMEN: Soft and nontender with normal bowel sounds. SKIN: Dialysis access left upper extremity : Deferred NEUROLOGIC: Alert, moving all extremities MUSCULOSKELETAL: Normal extremities with adequate strength and full range of motion. No lower extremity swelling or edema. No calf tenderness. PSYCHIATRIC: Unable to assess due to respiratory distress Limitations: no limitations Course Vital Signs 07/13/21 07/13/21 21:08 22:45 Pulse Rate 126 H 66 Respiratory 22 18 Rate Blood Pressure 162/70 117/66 O2 Sat by Pulse 100 100 Oximetry Medical Decision Making - Medical Decision Making Patient was seen and evaluated, and in acute respiratory distress, patient placed immediately on BiPAP IV access was obtained, 50 g IV nitro was administered via IV push by myself Patient respiratory status improving with BiPAP and nitro Labs at baseline for the patient aside from some leukocytosis likely reactive Patient was reevaluated 2240 Patient resting comfortably in bed, heart rate 66, oxygen 97 on BiPAP, blood pressure 117 systolic at this time nitro was discontinued At this time the patient's respiratory status has been temporized, nephrology notified of need for dialysis in the morning Patient to be [facility] with nephrology on consult for flash pulmonary edema due to missed dialysis - Lab Data Result diagrams: 07/13/21 21:22 07/13/21 21:22 Lab Results 07/13/21 07/13/21 07/13/21 Range/Units 21:22 21:22 21:22 WBC 17.0 H (3.8-10.6) k/uL RBC 3.79 L (4.30-5.90) m/uL Hgb 10.1 L (13.0-17.5) gm/dL Hct 34.8 L (39.0-53.0) % MCV 91.7 (80.0-100.0) fL MCH 26.8 (25.0-35.0) pg MCHC 29.2 L (31.0-37.0) g/dL RDW 18.0 H (11.5-15.5) % Plt Count 476 H (150-450) k/uL MPV 8.8 Neutrophils % 80 % Lymphocytes % 11 % Monocytes % 5 % Eosinophils % 1 % Basophils % 0 % Neutrophils # 13.6 H (1.3-7.7) k/uL Lymphocytes # 1.9 (1.0-4.8) k/uL Monocytes # 0.9 (0-1.0) k/uL Eosinophils # 0.2 (0-0.7) k/uL Basophils # 0.1 (0-0.2) k/uL Hypochromasia Marked Poikilocytosis Slight Anisocytosis Slight PT 10.2 (9.0-12.0) sec INR 0.9 (<1.2) APTT 22.4 (22.0-30.0) sec VBG pH (7.31-7.41) VBG pCO2 (37-51) mmHg VBG HCO3 (24-28) mmol/L Sodium 136 L (137-145) mmol/L Potassium 4.3 (3.5-5.1) mmol/L Chloride 101 (98-107) mmol/L Carbon Dioxide 20 L (22-30) mmol/L Anion Gap 15 mmol/L BUN 39 H (9-20) mg/dL Creatinine 4.24 H (0.66-1.25) mg/dL Est GFR (CKD-EPI)AfAm 15 (>60 ml/min/1.73 sqM) Est GFR (CKD-EPI)NonAf 13 (>60 ml/min/1.73 sqM) Glucose 386 H (74-99) mg/dL Calcium 8.5 (8.4-10.2) mg/dL Magnesium 1.9 (1.6-2.3) mg/dL Total Bilirubin 0.3 (0.2-1.3) mg/dL AST 22 (17-59) U/L ALT 18 (4-49) U/L Alkaline Phosphatase 147 H (38-126) U/L Troponin I (0.000-0.034) ng/mL Total Protein 6.9 (6.3-8.2) g/dL Albumin 3.6 (3.5-5.0) g/dL 07/13/21 07/13/21 Range/Units 21:22 21:22 WBC (3.8-10.6) k/uL RBC (4.30-5.90) m/uL Hgb (13.0-17.5) gm/dL Hct (39.0-53.0) % MCV (80.0-100.0) fL MCH (25.0-35.0) pg MCHC (31.0-37.0) g/dL RDW (11.5-15.5) % Plt Count (150-450) k/uL MPV Neutrophils % % Lymphocytes % % Monocytes % % Eosinophils % % Basophils % % Neutrophils # (1.3-7.7) k/uL Lymphocytes # (1.0-4.8) k/uL Monocytes # (0-1.0) k/uL Eosinophils # (0-0.7) k/uL Basophils # (0-0.2) k/uL Hypochromasia Poikilocytosis Anisocytosis PT (9.0-12.0) sec INR (<1.2) APTT (22.0-30.0) sec VBG pH 7.26 L (7.31-7.41) VBG pCO2 45 (37-51) mmHg VBG HCO3 19 L (24-28) mmol/L Sodium (137-145) mmol/L Potassium (3.5-5.1) mmol/L Chloride (98-107) mmol/L Carbon Dioxide (22-30) mmol/L Anion Gap mmol/L BUN (9-20) mg/dL Creatinine (0.66-1.25) mg/dL Est GFR (CKD-EPI)AfAm (>60 ml/min/1.73 sqM) Est GFR (CKD-EPI)NonAf (>60 ml/min/1.73 sqM) Glucose (74-99) mg/dL Calcium (8.4-10.2) mg/dL Magnesium (1.6-2.3) mg/dL Total Bilirubin (0.2-1.3) mg/dL AST (17-59) U/L ALT (4-49) U/L Alkaline Phosphatase (38-126) U/L Troponin I <0.012 (0.000-0.034) ng/mL Total Protein (6.3-8.2) g/dL Albumin (3.5-5.0) g/dL Critical Care Time Critical Care Time: Yes Total Critical Care Time: 30 Critical Care Time: Critical Care Time 30 Critical care time was exclusive of separately billable procedures and treating other patients and teaching time. Critical care was necessary to treat or prevent imminent or life-threatening deterioration. Given the critical condition in which the patient arrived, the patient was immediately assessed by myself and the nurse, and cardiac monitoring initiated due to the potential for rapid decompensation of the patient's clinical condition. During the course of the patients stay, I spent a considerable amount of time at the bedside performing serial re-evaluations of the patient's hemodynamic and clinical status because of the recognized potential threat to life or limb in this condition. I then had a chance to review not only all of the available current laboratory and radiographic studies obtained today, but I also reviewed old records available to me at the time. Additionally, any ancillary information available including assembler equipment records were reviewed. Sequential vital signs were obtained. Disposition Clinical Impression: ESRD (end stage renal disease) on dialysis, Flash pulmonary edema, Missed dialysis Disposition: ADMITTED IP TO THIS HOSP Condition: Serious Is patient prescribed a controlled substance at d/c from ED?: No Referrals: [facility],Clinic [Primary Care Provider] - 1-2 days
[2021-07-13] MEDS ORDERED: INSULIN REGULAR 100 UNIT/ML VIAL (IM/SQ) SQ ONE (22:40)
[2021-07-13] MEDS ORDERED: ONDANSETRON 4 MG/2 ML VIAL IVP PRN (23:48)
[2021-07-13] MEDS ORDERED: LORazepam 2 MG/ML INJ IV PRN (23:48)
[2021-07-13] MEDS ORDERED: NALOXONE 0.4 MG/ML 1 ML VIAL IV PRN (23:48)
[2021-07-13] MEDS ORDERED: MORPHINE SULFATE 4 MG/ML SYRINGE IV PRN (23:48)
[2021-07-14 00:14] LABS: Glucose,Whole Blood 410 mg/dL (75-99)
[2021-07-14] MEDS ORDERED: INSULIN REGULAR 100 UNIT/ML VIAL (IM/SQ) SQ ONE (00:45)
[2021-07-14 01:14] LABS: Glucose,Whole Blood 331 mg/dL (75-99)
[2021-07-14 04:09] LABS: Glucose,Whole Blood 253 mg/dL (75-99)
[2021-07-14 04:11] LABS: Anisocytosis Slight; Basophils % (A) 0 %; Eosinophils # (A) 0.1 k/uL (0-0.7); Eosinophils % (A) 1 %; HCT 29.6 % (39.0-53.0); HGB 8.8 gm/dL (13.0-17.5); Hypochromasia Marked; Lymphocytes # (A) 0.7 k/uL (1.0-4.8); Lymphocytes % (A) 5 %; MCH 27.1 pg (25.0-35.0); MCHC 29.6 g/dL (31.0-37.0); MCV 91.4 fL (80.0-100.0); Mean Platelet Volume 8.9; Monocytes # (A) 0.6 k/uL (0-1.0); Monocytes % (A) 4 %; Neutrophils # (A) 12.7 k/uL (1.3-7.7); Neutrophils % (A) 89 %; Platelet Count 376 k/uL (150-450); Poikilocytosis Slight; RBC 3.24 m/uL (4.30-5.90); RDW 18.1 % (11.5-15.5); WBC 14.3 k/uL (3.8-10.6)
[2021-07-14 04:39] LABS: Albumin 2.9 g/dL (3.5-5.0); Calcium 8.3 mg/dL (8.4-10.2); Phosphorus 5.2 mg/dL (2.5-4.5); Potassium 4.5 mmol/L (3.5-5.1); Total Bilirubin 0.3 mg/dL (0.2-1.3); Total Protein 5.9 g/dL (6.3-8.2)
[2021-07-14 08:48] LABS: Glucose,Whole Blood 245 mg/dL (75-99)
[2021-07-14] MEDS: INSULIN ASPART (NovoLOG) 100 UNIT/ML VIAL SQ SCH ×4 (08:55→20:47)
--- NOTE | 2021-07-14 08:55 | XR ---
EXAMINATION TYPE: XR chest 1V DATE OF EXAM: 07/14/2021 COMPARISON: Chest x-ray 07/13/2021 HISTORY: Abnormal chest x-ray TECHNIQUE: Single frontal view of the chest is obtained. FINDINGS: Right jugular central venous catheter is stable. Cardiac mediastinal silhouette shows an e nlarged heart. There is likely right pleural effusion. Bilateral airspace disease is noted. No eviden t pneumothorax. IMPRESSION: Correlate for pneumonia, congestive heart failure, there is a right pleural effusion.
--- NOTE | 2021-07-14 10:59 | P.CRDCN ---
<Kingsley Bello - Last Filed: 07/14/21 10:45> History of Present Illness Consult date: 07/14/21 Consult reason: congestive heart failure Chief complaint: Shortness of breath History of present illness: This is Kingsley Bello NP dictating a consult on this patient on behalf of Dr. Munguia. The patient was interviewed and examined. HPI: [Patient is a pleasant 71-year-old male who initially presented to the hospital with shortness of breath secondary to CHF exacerbation and CKD. Patient was found to be in flash pulmonary edema. Patient was supposed to get dialysis on his normal schedule which is Saturday, , Saturday, however due to the the patient was unable to get his dialysis as scheduled. Patient is a past medical history includes coronary artery disease, COPD, diabetes, GERD, hyperlipidemia, hypertension, end-stage renal failure, and iron deficiency anemia. Patient was subsequent started on BiPAP due to respiratory distress, as well as given nitro initially. This seemed to improve the patient per emergency department notes. The patient's blood pressure initially was extremely elevated at systolic 210, as well as elevated heart rate.] ROS: [No fever, chills, or rigors] [Reports shortness of breath, otherwise no cough, phlegm, or expectoration] [no nausea, vomiting, or diarrhea] [no hematuria, dysuria] [no musculoskelatal complaints] [no strokes or seizures] [no skin lesions] EXAMINATION: GENERAL: ill-appearing, well-nourished and in no acute distress. NECK: Supple without JVD or thyromegaly. LUNGS: Breath sounds clear to auscultation bilaterally. Respiration equal and unlabored. No wheezes, rales or rhonchi. HEART: Regular rate and rhythm without murmurs, rubs or gallops. S1 and S2 heard. EXTREMITIES: Normal range of motion, trace edema. No clubbing or cyanosis. Peripheral pulses intact and strong. REVIEW OF LABS, ECG & MEDICAL DATA: LABS: White count 14.3, hemoglobin 8.8, platelets 376, sodium 134, potassium 4.5, B1 45, creatinine 4.32, calcium 8.3, magnesium 2.0, troponin-less than 0.012, less than 0.012. EKG: Sinus tachycardia with PVCs, T-wave inversion in leads V5 and V6 IMAGING: Chest x-ray shows cardiomegaly, with pulmonary congestion VITALS: Temp 98.1, pulse rate 68, respirations 20, blood pressure 144/62, O2 saturation 98% on BiPAP IMPRESSION/PLAN: 1. Congestive heart failure-continue current medications as prescribed. Patient has trace edema in the bilateral lower legs, and lungs sound clear at this time. Patient would benefit from dialysis. 2. Sinus tachycardia-patient appears to be currently normal sinus rhythm on telemetry. Most likely due to flash pulmonary edema. Again dialysis would be beneficial. Thank you for the consult and allowing us to participate in the care of this patient. If patient's condition changes or further evaluation is requested, please contact us. Past Medical History Past Medical History: Coronary Artery Disease (CAD), Chest Pain / Angina, COPD, Diabetes Mellitus, GERD/Reflux, GI Bleed, Hyperlipidemia, Hypertension, Pneumonia, Renal Disease, Vascular Disorder Additional Past Medical History / Comment(s): IDDM type II, lower GI bleed, benign colon polyps, spouse states micro bleeds in intestine are suspected, abdominal distention comes and goes which is nearly daily, partial SBO, chronic renal disease stage IV HD MWF, iron anemia with iron transfusions (recent R upper chest mediport for infusions), PVD, stable lung nodules, chronic low back pain with bilateral sciatica, RLS, vertigo, insomnia, past agent orange expos ure. Last Myocardial Infarction Date:: 03/2020 History of Any Multi-Drug Resistant Organisms: None Reported Past Surgical History: Cholecystectomy, Heart Catheterization Additional Past Surgical History / Comment(s): 03/25/20 R sublclavian mediport, R carotid stent done in [place], EGD/colonoscopyDecember 2016, endoscopic capsule, fx lt wrist -sx re-set, aortagram, bilateral leg revascularizations /stents, Left upper arm fistula Past Anesthesia/Blood Transfusion Reactions: No Reported Reaction Additional Past Anesthesia/Blood Transfusion Reaction / Comment(s): Pt has had blood transfusion without reaction. Date of Last Stent Placement:: 04/27/20 Past Psychological History: No Psychological Hx Reported Smoking Status: Current every day smoker Past Alcohol Use History: None Reported Past Drug Use History: None Reported - Past Family History Father History Unknown: Yes Mother Family Medical History: Cancer Additional Family Medical History / Comment(s): Mother from metastatic cancer pelvic origin. Medications and Allergies Home Medications Medication Instructions Recorded Confirmed Type Ergocalciferol (Vitamin D2) 50,000 unit PO Q14D 07/18/17 07/13/21 History [Vitamin D2] Aspirin EC [Ecotrin Low Dose] 81 mg PO HS 02/10/18 07/13/21 History Isosorbide Mononitrate ER [Imdur] 60 mg PO BID #60 tab.er.24h 04/21/20 07/13/21 Rx DULoxetine HCL [Cymbalta] 20 mg PO DAILY 10/27/20 07/13/21 History Melatonin 5 mg PO HS 12/19/20 07/13/21 History Sennosides-Docusate Sodium 2 tab PO TID PRN 12/31/20 07/13/21 History [Senokot-S] Gabapentin [Neurontin] 100 mg PO TID 01/23/21 07/13/21 History Nitroglycerin Sl Tabs [Nitrostat] 0.4 mg SL Q5M PRN 01/23/21 07/13/21 History rOPINIRole HCL [Requip] 0.5 mg PO TID 01/23/21 07/13/21 History Budesonide-Formot 160-4.5 Mcg 2 puff INHALATION RT-BID #1 inhaler 02/01/21 07/13/21 Rx [Symbicort 160-4.5 Mcg Inhaler] Furosemide [Lasix] 80 mg PO DAILY 02/17/21 07/13/21 History Lidocaine-Prilocaine Cream [Emla 1 applic TOPICAL DIRECTED PRN 02/17/21 07/13/21 History Cream 2.5%/2.5%] Omeprazole [PriLOSEC] 40 mg PO HS #0 02/18/21 07/13/21 Rx Clopidogrel [Plavix] 75 mg PO DAILY #30 tab 04/12/21 07/13/21 Rx Metoprolol Tartrate [Lopressor] 25 mg PO BID #60 tab 04/12/21 07/13/21 Rx Atorvastatin [Lipitor] 20 mg PO HS 05/08/21 07/13/21 History Ondansetron [Zofran] 4 mg PO DAILY PRN 05/08/21 07/13/21 History amLODIPine [Norvasc] 5 mg PO DAILY #30 tab 05/10/21 07/13/21 Rx Ferrous Sulfate [Iron (65 MG 325 mg PO BID-W/MEALS #60 tab 06/08/21 07/13/21 Rx Elemental)] Insulin Aspart [NovoLOG] 3 units SQ AC-TID #10 ml 06/08/21 07/13/21 Rx Oxybutynin Chloride [Ditropan] 5 mg PO DAILY 06/28/21 07/13/21 History Tamsulosin HCl [Flomax] 0.4 mg PO DAILY 06/28/21 07/13/21 History Insulin Glargine [Lantus Vial] 30 unit SQ HS 07/13/21 07/13/21 History Allergies Allergy/AdvReac Type Severity Reaction Status Date / Time Iodinated Contrast Media AdvReac CAN'T Verified 07/13/21 23:12 TAKE, RENAL DISEASE Iodine and Iodide Containing AdvReac CAN'T Verified 07/13/21 23:12 Produc TAKE, RENAL DISEASE Physical Exam Vitals: Vital Signs Temp Pulse Resp BP Pulse Ox 07/14/21 08:51 98.1 F 68 20 144/62 98 07/14/21 08:49 64 12 144/58 99 07/14/21 06:45 97.9 F 58 L 13 133/56 100 07/14/21 05:07 65 16 139/60 100 07/14/21 04:00 66 14 144/62 100 07/14/21 03:00 64 16 100 07/14/21 02:00 68 18 159/71 99 07/14/21 01:07 66 18 143/67 99 07/14/21 00:00 65 14 155/63 100 07/13/21 22:45 66 18 117/66 100 07/13/21 21:08 126 H 22 162/70 100 Intake and Output 07/13/21 07/14/21 07/14/21 22:59 06:59 14:59 Other: Weight 86.183 kg Results 07/14/21 03:51 07/14/21 03:51 Cardiac Enzymes 07/13/21 07/13/21 07/14/21 Range/Units 21:22 21:22 00:25 AST 22 (17-59) U/L Troponin I <0.012 <0.012 (0.000-0.034) ng/mL 07/14/21 07/14/21 Range/Units 03:51 03:51 AST 23 (17-59) U/L Troponin I <0.012 (0.000-0.034) ng/mL Coagulation 07/13/21 Range/Units 21:22 PT 10.2 (9.0-12.0) sec APTT 22.4 (22.0-30.0) sec CBC 07/13/21 07/14/21 Range/Units 21:22 03:51 WBC 17.0 H 14.3 H (3.8-10.6) k/uL RBC 3.79 L 3.24 L (4.30-5.90) m/uL Hgb 10.1 L 8.8 L (13.0-17.5) gm/dL Hct 34.8 L 29.6 L (39.0-53.0) % Plt Count 476 H 376 (150-450) k/uL Comprehensive Metabolic Panel 07/13/21 07/14/21 Range/Units 21:22 03:51 Sodium 136 L 134 L (137-145) mmol/L Potassium 4.3 4.5 (3.5-5.1) mmol/L Chloride 101 103 (98-107) mmol/L Carbon Dioxide 20 L 22 (22-30) mmol/L BUN 39 H 45 H (9-20) mg/dL Creatinine 4.24 H 4.32 H (0.66-1.25) mg/dL Glucose 386 H 248 H (74-99) mg/dL Calcium 8.5 8.3 L (8.4-10.2) mg/dL AST 22 23 (17-59) U/L ALT 18 13 (4-49) U/L Alkaline Phosphatase 147 H 103 (38-126) U/L Total Protein 6.9 5.9 L (6.3-8.2) g/dL Albumin 3.6 2.9 L (3.5-5.0) g/dL Current Medications Generic Name Dose Route Start Last Admin Trade Name Freq PRN Reason Stop Dose Admin Insulin Aspart 0 unit 07/14/21 07:30 07/14/21 08:55 Insulin Aspart (Novolog) 100 Unit/Ml Vial SQ 5 unit ACHS GRECIA Administration Protocol Lorazepam 0.5 mg 07/13/21 23:48 Lorazepam 2 Mg/Ml Inj IV Q6HR PRN Anxiety Morphine Sulfate 4 mg 07/13/21 23:48 Morphine Sulfate 4 Mg/Ml Syringe IV Q4HR PRN Severe Pain Naloxone HCl 0.2 mg 07/13/21 23:48 Naloxone 0.4 Mg/Ml 1 Ml Vial IV Q2M PRN Opioid Reversal Ondansetron HCl 4 mg 07/13/21 23:48 Ondansetron 4 Mg/2 Ml Vial IVP Q8HR PRN Nausea And Vomiting Intake and Output 07/13/21 07/14/21 07/14/21 22:59 06:59 14:59 Other: Weight 86.183 kg 07/14/21 03:51 07/14/21 03:51 <Devon Munguia - Last Filed: 07/14/21 11:01> History of Present Illness History of present illness: Patient interviewed and examined He will get dialyzed today We are restarting amlodipine 5 mrem daily We will reassess blood pressure tomorrow and consider 5 g twice daily if needed, off amlodipine Physical Exam Vitals: Vital Signs Temp Pulse Resp BP Pulse Ox 07/14/21 08:51 98.1 F 68 20 144/62 98 07/14/21 08:49 64 12 144/58 99 07/14/21 06:45 97.9 F 58 L 13 133/56 100 07/14/21 05:07 65 16 139/60 100 07/14/21 04:00 66 14 144/62 100 07/14/21 03:00 64 16 100 07/14/21 02:00 68 18 159/71 99 07/14/21 01:07 66 18 143/67 99 07/14/21 00:00 65 14 155/63 100 07/13/21 22:45 66 18 117/66 100 07/13/21 21:08 126 H 22 162/70 100 Intake and Output 07/13/21 07/14/21 07/14/21 22:59 06:59 14:59 Other: Weight 86.183 kg Results 07/14/21 03:51 07/14/21 03:51 Cardiac Enzymes 07/13/21 07/13/21 07/14/21 Range/Units 21:22 21:22 00:25 AST 22 (17-59) U/L Troponin I <0.012 <0.012 (0.000-0.034) ng/mL 07/14/21 07/14/21 Range/Units 03:51 03:51 AST 23 (17-59) U/L Troponin I <0.012 (0.000-0.034) ng/mL Coagulation 07/13/21 Range/Units 21:22 PT 10.2 (9.0-12.0) sec APTT 22.4 (22.0-30.0) sec CBC 07/13/21 07/14/21 Range/Units 21:22 03:51 WBC 17.0 H 14.3 H (3.8-10.6) k/uL RBC 3.79 L 3.24 L (4.30-5.90) m/uL Hgb 10.1 L 8.8 L (13.0-17.5) gm/dL Hct 34.8 L 29.6 L (39.0-53.0) % Plt Count 476 H 376 (150-450) k/uL Comprehensive Metabolic Panel 07/13/21 07/14/21 Range/Units 21:22 03:51 Sodium 136 L 134 L (137-145) mmol/L Potassium 4.3 4.5 (3.5-5.1) mmol/L Chloride 101 103 (98-107) mmol/L Carbon Dioxide 20 L 22 (22-30) mmol/L BUN 39 H 45 H (9-20) mg/dL Creatinine 4.24 H 4.32 H (0.66-1.25) mg/dL Glucose 386 H 248 H (74-99) mg/dL Calcium 8.5 8.3 L (8.4-10.2) mg/dL AST 22 23 (17-59) U/L ALT 18 13 (4-49) U/L Alkaline Phosphatase 147 H 103 (38-126) U/L Total Protein 6.9 5.9 L (6.3-8.2) g/dL Albumin 3.6 2.9 L (3.5-5.0) g/dL Current Medications Generic Name Dose Route Start Last Admin Trade Name Freq PRN Reason Stop Dose Admin Insulin Aspart 0 unit 07/14/21 07:30 07/14/21 08:55 Insulin Aspart (Novolog) 100 Unit/Ml Vial SQ 5 unit ACHS GRECIA Administration Protocol Lorazepam 0.5 mg 07/13/21 23:48 Lorazepam 2 Mg/Ml Inj IV Q6HR PRN Anxiety Morphine Sulfate 4 mg 07/13/21 23:48 Morphine Sulfate 4 Mg/Ml Syringe IV Q4HR PRN Severe Pain Naloxone HCl 0.2 mg 07/13/21 23:48 Naloxone 0.4 Mg/Ml 1 Ml Vial IV Q2M PRN Opioid Reversal Ondansetron HCl 4 mg 07/13/21 23:48 Ondansetron 4 Mg/2 Ml Vial IVP Q8HR PRN Nausea And Vomiting Intake and Output 07/13/21 07/14/21 07/14/21 22:59 06:59 14:59 Other: Weight 86.183 kg 07/14/21 03:51 07/14/21 03:51
[2021-07-14] MEDS ORDERED: amLODIPine 5 MG TAB PO SCH (11:15)
[2021-07-14 12:04] LABS: Glucose,Whole Blood 193 mg/dL (75-99)
--- NOTE | 2021-07-14 16:07 | P.NPCON ---
History of Present Illness - Reason for Consult Consult date: 07/14/21 end stage renal disease - Chief Complaint Shortness of breath - History of Present Illness ESRD on hemodialysis, Saturday coming to the hospital with worsening shortness of breath. Currently ongoing dialysis. On BiPAP and nitro drip. History limited with BiPAP on. Denies missing dialysis. No nausea vomiting or diarrhea. Diastolic CHF with EF of 45-50%. Review of Systems Constitutional: Reports as per HPI Past Medical History Past Medical History: Coronary Artery Disease (CAD), Chest Pain / Angina, COPD, Diabetes Mellitus, GERD/Reflux, GI Bleed, Hyperlipidemia, Hypertension, Pneumonia, Renal Disease, Vascular Disorder Additional Past Medical History / Comment(s): IDDM type II, lower GI bleed, benign colon polyps, spouse states micro bleeds in intestine are suspected, abdominal distention comes and goes which is nearly daily, partial SBO, chronic renal disease stage IV HD MWF, iron anemia with iron transfusions (recent R upper chest mediport for infusions), PVD, stable lung nodules, chronic low back pain with bilateral sciatica, RLS, vertigo, insomnia, past agent orange exposure. Last Myocardial Infarction Date:: 03/2020 History of Any Multi-Drug Resistant Organisms: None Reported Past Surgical History: Cholecystectomy, Heart Catheterization Additional Past Surgical History / Comment(s): 03/25/20 R sublclavian mediport, R carotid stent done in [place], EGD/colonoscopyDecember 2016, endoscopic capsule, fx lt wrist -sx re-set, aortagram, bilateral leg revascularizations/stents, Left upper arm fistula Past Anesthesia/Blood Transfusion Reactions: No Reported Reaction Additional Past Anesthesia/Blood Transfusion Reaction / Comment(s): Pt has had blood transfusion without reaction. Date of Last Stent Placement:: 04/27/20 Past Psychological History: No Psychological Hx Reported Smoking Status: Current every day smoker Past Alcohol Use History: None Reported Past Drug Use History: None Reported - Past Family History Father History Unknown: Yes Mother Family Medical History: Cancer Additional Family Medical History / Comment(s): Mother from metastatic canc er pelvic origin. Medications and Allergies Home Medications Medication Instructions Recorded Confirmed Type Ergocalciferol (Vitamin D2) 50,000 unit PO Q14D 07/18/17 07/13/21 History [Vitamin D2] Aspirin EC [Ecotrin Low Dose] 81 mg PO HS 06/25/18 11/25/21 History Isosorbide Mononitrate ER [Imdur] 60 mg PO BID #60 tab.er.24h 04/21/20 07/13/21 Rx DULoxetine HCL [Cymbalta] 20 mg PO DAILY 10/27/20 07/13/21 History Melatonin 5 mg PO HS 12/19/20 07/13/21 History Sennosides-Docusate Sodium 2 tab PO TID PRN 12/31/20 07/13/21 History [Senokot-S] Gabapentin [Neurontin] 100 mg PO TID 01/23/21 07/13/21 History Nitroglycerin Sl Tabs [Nitrostat] 0.4 mg SL Q5M PRN 01/23/21 07/13/21 History rOPINIRole HCL [Requip] 0.5 mg PO TID 01/23/21 07/13/21 History Budesonide-Formot 160-4.5 Mcg 2 puff INHALATION RT-BID #1 inhaler 02/01/21 07/13/21 Rx [Symbicort 160-4.5 Mcg Inhaler] Furosemide [Lasix] 80 mg PO DAILY 02/17/21 07/13/21 History Lidocaine-Prilocaine Cream [Emla 1 applic TOPICAL DIRECTED PRN 02/17/21 07/13/21 History Cream 2.5%/2.5%] Omeprazole [PriLOSEC] 40 mg PO HS #0 02/18/21 07/13/21 Rx Clopidogrel [Plavix] 75 mg PO DAILY #30 tab 04/12/21 07/13/21 Rx Metoprolol Tartrate [Lopressor] 25 mg PO BID #60 tab 04/12/21 07/13/21 Rx Atorvastatin [Lipitor] 20 mg PO HS 05/08/21 07/13/21 History Ondansetron [Zofran] 4 mg PO DAILY PRN 05/08/21 07/13/21 History amLODIPine [Norvasc] 5 mg PO DAILY #30 tab 05/10/21 07/13/21 Rx Ferrous Sulfate [Iron (65 MG 325 mg PO BID-W/MEALS #60 tab 06/08/21 07/13/21 Rx Elemental)] Insulin Aspart [NovoLOG] 3 units SQ AC-TID #10 ml 06/08/21 07/13/21 Rx Oxybutynin Chloride [Ditropan] 5 mg PO DAILY 06/28/21 07/13/21 History Tamsulosin HCl [Flomax] 0.4 mg PO DAILY 06/28/21 07/13/21 History Insulin Glargine [Lantus Vial] 30 unit SQ HS 07/13/21 07/13/21 History Allergies Allergy/AdvReac Type Severity Reaction Status Date / Time Iodinated Contrast Media AdvReac CAN'T Verified 07/13/21 23:12 TAKE, RENAL DISEASE Iodine and Iodide Containing AdvReac CAN'T Verified 07/13/21 23:12 Produc TAKE, RENAL DISEASE Physical Exam Vitals: Vital Signs Temp Pulse Resp BP Pulse Ox 07/14/21 15:00 58 L 13 99 07/14/21 14:00 60 10 L 147/53 100 07/14/21 13:00 56 L 12 100 07/14/21 12:05 98 F 76 24 97 07/14/21 12:00 148/51 07/14/21 11:00 56 L 16 148/51 99 07/14/21 10:00 61 12 164/62 100 07/14/21 08:51 98.1 F 68 20 144/62 98 07/14/21 08:49 64 12 144/58 99 07/14/21 06:45 97.9 F 58 L 13 133/56 100 07/14/21 05:07 65 16 139/60 100 07/14/21 04:00 66 14 144/62 100 07/14/21 03:00 64 16 100 07/14/21 02:00 68 18 159/71 99 07/14/21 01:07 66 18 143/67 99 07/14/21 00:00 65 14 155/63 100 07/13/21 22:45 66 18 117/66 100 07/13/21 21:08 126 H 22 162/70 100 No acute distress S1-S2 heard Lungs decreased breath sounds Edema Results - Lab Results Most recent lab results Calcium 8.3 mg/dL (8.4-10.2) L 07/14/21 03:51 Phosphorus 5.2 mg/dL (2.5-4.5) H 07/14/21 03:51 Magnesium 2.0 mg/dL (1.6-2.3) 07/14/21 03:51 07/14/21 03:51 07/14/21 03:51 Assessment and Plan Assessment: #1 shortness of breath secondary to flash pulmonary edema. Rule out underlying pneumonia. #2 ESRD on hemodialysis MWF schedule #3 hypertension with ESRD #4 metabolic bone disease with ESRD #5 anemia multifactorial Plan: 1 currently on BiPAP and nitro drip. Hemodialysis with a goal UF of 2 L. #2 plan again dialysis tomorrow for volume management #3 ESRD medications
[2021-07-14 17:59] LABS: Glucose,Whole Blood 72 mg/dL (75-99)
[2021-07-14 20:41] LABS: Glucose,Whole Blood 185 mg/dL (75-99)
[2021-07-14] MEDS: GABAPENTIN 100 MG CAP PO SCH (23:49)
[2021-07-15 06:00] LABS: Glucose,Whole Blood 225 mg/dL (75-99)
[2021-07-15] MEDS: INSULIN ASPART (NovoLOG) 100 UNIT/ML VIAL SQ SCH ×6 (06:31→22:02)
[2021-07-15] MEDS ORDERED: hydrALAZINE HCL 20 MG/ML 1 ML VIAL IVP PRN (09:26)
--- NOTE | 2021-07-15 09:28 | P.PN ---
Subjective Patient is seen in follow-up for end-stage renal disease. He is maintained on hemodialysis on Saturday schedule. Tolerated 4 L ultrafiltration yesterday. Dyspnea improved. Currently on 4 L nasal cannula. Vital signs are stable. General: The patient appeared well nourished and normally developed. HEENT: Head exam is unremarkable. LUNGS: Breath sounds decreased. HEART: Rate and Rhythm are regular. ABDOMEN: Soft, no distention. EXTREMITITES: No edema. Objective - Vital Signs Vital signs: Vital Signs Temp 97.8 F 07/15/21 04:00 Pulse 88 07/15/21 04:00 Resp 28 H 07/15/21 04:00 BP 179/73 07/15/21 04:00 Pulse Ox 95 07/15/21 04:00 Intake & Output 07/14/21 07/15/21 07/15/21 18:59 06:59 18:59 Intake Total 120 Output Total 4000 0 Balance -4000 120 Weight 83.2 kg Intake: Oral 120 Output: Urine 0 Hemodialysis 4000 Other: # Voids 0 - Labs CBC & Chem 7: 07/14/21 03:51 07/14/21 03:51 Labs: Abnormal Lab Results - Last 24 Hours (Table) 07/14/21 07/14/21 07/14/21 Range/Units 12:03 17:57 19:38 POC Glucose (mg/dL) 193 H 72 L 185 H (75-99) mg/dL 07/15/21 Range/Units 05:58 POC Glucose (mg/dL) 225 H (75-99) mg/dL Assessment and Plan Plan: Assessment: 1. End-stage renal disease maintained on hemodialysis on Saturday schedule. 2. Hypertension with chronic kidney disease. 3. Volume overload. Improved with ultrafiltration. 4. Anemia of chronic kidney disease. 5. Acute on chronic systolic CHF with ejection fraction of 45-50% with mild to moderate aortic regurgitation. Plan: Hemodialysis today mostly for ultrafiltration. Add Aranesp. Dose of amlodipine was increased. Add hydralazine 10 mg IV every 4-6 hours as needed for systolic blood pressure greater than 160.
[2021-07-15] MEDS ORDERED: SENNOSIDES-DOCUSATE SODIUM 1 EACH TAB PO PRN (09:31)
--- NOTE | 2021-07-15 09:34 | P.HPIM ---
History of Present Illness H&P Date: 07/14/21 Chief Complaint: Shortness of breath 71-year-old gentleman with extensive past medical history of CAD/CHF, COPD, diabetes, hypertension, hyperlipidemia, end-stage renal disease on dialysis Saturday, dialysis was postponed for today due to the think. Patient presents in acute respiratory distress due to flash pulmonary edema. History is limited due to respiratory distress; patient was placed on BiPAP in ED LABS: White count 14.3, hemoglobin 8.8, platelets 376, sodium 134, potassium 4.5, B1 45, creatinine 4.32, calcium 8.3, magnesium 2.0, troponin-less than 0.012, less than 0.012. EKG: Sinus tachycardia with PVCs, T-wave inversion in leads V5 and V6 IMAGING: Chest x-ray shows cardiomegaly, with pulmonary congestion Review of Systems REVIEW OF SYSTEMS: CONSTITUTIONAL: No fever, no malaise, no fatigue. HEENT: No recent visual problems or hearing problems. Denied any sore throat. CARDIOVASCULAR: No chest pain, orthopnea, PND, no palpitations, no syncope. PULMONARY: shortness of breath, no cough, no hemoptysis. GASTROINTESTINAL: No diarrhea, no nausea, no vomiting, no abdominal pain. NEUROLOGICAL: No headaches, no weakness, no numbness. HEMATOLOGICAL: Denies any bleeding or petechiae. GENITOURINARY: Denies any burning micturition, frequency, or urgency. MUSCULOSKELETAL/RHEUMATOLOGICAL: Denies any joint pain, swelling, or any muscle pain. ENDOCRINE: Denies any polyuria or polydipsia. The rest of the 14-point review of systems is negative. Past Medical History Past Medical History: Coronary Artery Disease (CAD), Chest Pain / Angina, COPD, Diabetes Mellitus, GERD/Reflux, GI Bleed, Hyperlipidemia, Hypertension, Pneumonia, Renal Disease, Vascular Disorder Additional Past Medical History / Comment(s): IDDM type II, lower GI bleed, benign colon polyps, spouse states micro bleeds in intestine are suspected, abdominal distention comes and goes which is nearly daily, partial SBO, chronic renal disease stage IV HD MWF, iron anemia with iron transfusions (recent R upper chest mediport for infusions), PVD, stable lung nodules, chronic low back pain with bilateral sciatica, RLS, vertigo, insomnia, past agent orange exposure. Last Myocardial Infarction Date:: 03/2020 History of Any Multi-Drug Resistant Organisms: None Reported Past Surgical History: Cholecystectomy, Heart Catheterization Additional Past Surgical History / Comment(s): 03/25/20 R sublclavian mediport, R carotid stent done in [place], EGD/colonoscopyDecember 2016, endoscopic capsule, fx lt wrist -sx re-set, aortagram, bilateral leg revascularizations/stents, Left upper arm fistula Past Anesthesia/Blood Transfusion Reactions: No Reported Reaction Additional Past Anesthesia/Blood Transfusion Reaction / Comment(s): Pt has had blood transfusion without reaction. Date of Last Stent Placement:: 04/27/20 Past Psychological History: No Psychological Hx Reported Smoking Status: Current every day smoker Past Alcohol Use History: None Reported Past Drug Use History: None Reported - Past Family History Father History Unknown: Yes Mother Family Medical History: Cancer Additional Family Medical History / Comment(s): Mother from metastatic cancer pelvic origin. Medications and Allergies Home Medications Medication Instructions Recorded Confirmed Type Ergocalciferol (Vitamin D2) 50,000 unit PO Q14D 07/18/17 07/13/21 History [Vitamin D2] Aspirin EC [Ecotrin Low Dose] 81 mg PO HS 02/10/18 07/13/21 History Isosorbide Mononitrate ER [Imdur] 60 mg PO BID #60 tab.er.24h 04/21/20 07/13/21 Rx DULoxetine HCL [Cymbalta] 20 mg PO DAILY 10/27/20 07/13/21 History Melatonin 5 mg PO HS 12/19/20 07/13/21 History Sennosides-Docusate Sodium 2 tab PO TID PRN 12/31/20 07/13/21 History [Senokot-S] Gabapentin [Neurontin] 100 mg PO TID 01/23/21 07/13/21 History Nitroglycerin Sl Tabs [Nitrostat] 0.4 mg SL Q5M PRN 01/23/21 07/13/21 History rOPINIRole HCL [Requip] 0.5 mg PO TID 01/23/21 07/13/21 History Budesonide-Formot 160-4.5 Mcg 2 puff INHALATION RT-BID #1 inhaler 02/01/21 07/13/21 Rx [Symbicort 160-4.5 Mcg Inhaler] Furosemide [Lasix] 80 mg PO DAILY 02/17/21 07/13/21 History Lidocaine-Prilocaine Cream [Emla 1 applic TOPICAL DIRECTED PRN 02/17/21 07/13/21 History Cream 2.5%/2.5%] Omeprazole [PriLOSEC] 40 mg PO HS #0 02/18/21 07/13/21 Rx Clopidogrel [Plavix] 75 mg PO DAILY #30 tab 04/12/21 07/13/21 Rx Metoprolol Tartrate [Lopressor] 25 mg PO BID #60 tab 04/12/21 07/13/21 Rx Atorvastatin [Lipitor] 20 mg PO HS 05/08/21 07/13/21 History Ondansetron [Zofran] 4 mg PO DAILY PRN 05/08/21 07/13/21 History amLODIPine [Norvasc] 5 mg PO DAILY #30 tab 05/10/21 07/13/21 Rx Ferrous Sulfate [Iron (65 MG 325 mg PO BID-W/MEALS #60 tab 06/08/21 07/13/21 Rx Elemental)] Insulin Aspart [NovoLOG] 3 units SQ AC-TID #10 ml 06/08/21 07/13/21 Rx Oxybutynin Chloride [Ditropan] 5 mg PO DAILY 06/28/21 07/13/21 History Tamsulosin HCl [Flomax] 0.4 mg PO DAILY 06/28/21 07/13/21 History Insulin Glargine [Lantus Vial] 30 unit SQ HS 07/13/21 07/13/21 History Allergies Allergy/AdvReac Type Severity Reaction Status Date / Time Iodinated Contrast Media AdvReac CAN'T Verified 07/13/21 23:12 TAKE, RENAL DISEASE Iodine and Iodide Containing AdvReac CAN'T Verified 07/13/21 23:12 Produc TAKE, RENAL DISEASE Physical Exam Vitals: Vital Signs Temp Pulse Resp BP Pulse Ox 07/14/21 08:51 98.1 F 68 20 144/62 98 07/14/21 06:45 97.9 F 58 L 13 133/56 100 07/14/21 05:07 65 16 139/60 100 07/14/21 04:00 66 14 144/62 100 07/14/21 03:00 64 16 100 07/14/21 02:00 68 18 159/71 99 07/14/21 01:07 66 18 143/67 99 07/14/21 00:00 65 14 155/63 100 07/13/21 22:45 66 18 117/66 100 07/13/21 21:08 126 H 22 162/70 100 Intake and Output 07/13/21 07/14/21 07/14/21 22:59 06:59 14:59 Other: Weight 86.183 kg PHYSICAL EXAMINATION: GENERAL: The patient is alert and oriented x3, not in any acute distress. Well developed, well nourished. HEENT: Pupils are round and equally reacting to light. EOMI. No scleral icterus. No conjunctival pallor. Normocephalic, atraumatic. No pharyngeal erythema. No thyromegaly. CARDIOVASCULAR: S1 and S2 present. No murmurs, rubs, or gallops. PULMONARY: crackles. ABDOMEN: Soft, nontender, nondistended, normoactive bowel sounds. No palpable organomegaly. MUSCULOSKELETAL: No joint swelling or deformity. EXTREMITIES: No cyanosis, clubbing, or pedal edema. NEUROLOGICAL: Gross neurological examination did not reveal any focal deficits. SKIN: No rashes. Results CBC & Chem 7: 07/14/21 03:51 07/14/21 03:51 Labs: Abnormal Lab Results - Last 24 Hours (Table) 07/13/21 07/13/21 07/13/21 Range/Units 21:22 21:22 21:22 WBC 17.0 H (3.8-10.6) k/uL RBC 3.79 L (4.30-5.90) m/uL Hgb 10.1 L (13.0-17.5) gm/dL Hct 34.8 L (39.0-53.0) % MCHC 29.2 L (31.0-37.0) g/dL RDW 18.0 H (11.5-15.5) % Plt Count 476 H (150-450) k/uL Neutrophils # 13.6 H (1.3-7.7) k/uL Lymphocytes # (1.0-4.8) k/uL VBG pH 7.26 L (7.31-7.41) VBG HCO3 19 L (24-28) mmol/L Sodium 136 L (137-145) mmol/L Carbon Dioxide 20 L (22-30) mmol/L BUN 39 H (9-20) mg/dL Creatinine 4.24 H (0.66-1.25) mg/dL Glucose 386 H (74-99) mg/dL POC Glucose (mg/dL) (75-99) mg/dL Calcium (8.4-10.2) mg/dL Phosphorus (2.5-4.5) mg/dL Alkaline Phosphatase 147 H (38-126) U/L Total Protein (6.3-8.2) g/dL Albumin (3.5-5.0) g/dL 07/14/21 07/14/21 07/14/21 Range/Units 00:12 01:10 03:51 WBC 14.3 H (3.8-10.6) k/uL RBC 3.24 L (4.30-5.90) m/uL Hgb 8.8 L (13.0-17.5) gm/dL Hct 29.6 L (39.0-53.0) % MCHC 29.6 L (31.0-37.0) g/dL RDW 18.1 H (11.5-15.5) % Plt Count (150-450) k/uL Neutrophils # 12.7 H (1.3-7.7) k/uL Lymphocytes # 0.7 L (1.0-4.8) k/uL VBG pH (7.31-7.41) VBG HCO3 (24-28) mmol/L Sodium (137-145) mmol/L Carbon Dioxide (22-30) mmol/L BUN (9-20) mg/dL Creatinine (0.66-1.25) mg/dL Glucose (74-99) mg/dL POC Glucose (mg/dL) 410 H 331 H (75-99) mg/dL Calcium (8.4-10.2) mg/dL Phosphorus (2.5-4.5) mg/dL Alkaline Phosphatase (38-126) U/L Total Protein (6.3-8.2) g/dL Albumin (3.5-5.0) g/dL 07/14/21 07/14/21 07/14/21 Range/Units 03:51 04:08 08:47 WBC (3.8-10.6) k/uL RBC (4.30-5.90) m/uL Hgb (13.0-17.5) gm/dL Hct (39.0-53.0) % MCHC (31.0-37.0) g/dL RDW (11.5-15.5) % Plt Count (150-450) k/uL Neutrophils # (1.3-7.7) k/uL Lymphocytes # (1.0-4.8) k/uL VBG pH (7.31-7.41) VBG HCO3 (24-28) mmol/L Sodium 134 L (137-145) mmol/L Carbon Dioxide (22-30) mmol/L BUN 45 H (9-20) mg/dL Creatinine 4.32 H (0.66-1.25) mg/dL Glucose 248 H (74-99) mg/dL POC Glucose (mg/dL) 253 H 245 H (75-99) mg/dL Calcium 8.3 L (8.4-10.2) mg/dL Phosphorus 5.2 H (2.5-4.5) mg/dL Alkaline Phosphatase (38-126) U/L Total Protein 5.9 L (6.3-8.2) g/dL Albumin 2.9 L (3.5-5.0) g/dL Assessment and Plan Assessment: 1. Acute hypoxemic respiratory failure; related to flash pulmonary edema - Patient remains on BiPAP and IV nitroglycerin infusion 2. Pulmonary edema related to fluid overload secondary to missed dialysis - Nephrology has been consulted and made aware; patient will benefit from urgent hemodialysis 3. End-stage renal disease/HD; nephrology on board and planning to initiate dialysis today with plans for repeat dialysis tomorrow morning for volume management 4. Hypertension; continue with home dose of Norvasc 10 mg daily, Lasix 80 mg daily; metoprolol 25 mg twice a day; Imdur held due to patient being on IV nitroglycerin 5. Hyperlipidemia; statin therapy in form of Lipitor 20 mg by mouth daily at bedtime 6. CAD/CHF; patient remains on aspirin, beta blockers, nitrates and statin therapy 7. Diabetes mellitus; we will monitor Accu-Cheks before meals and at bedtime with insulin sliding scale DVT prophylaxis; SCDs CODE STATUS; full code
[2021-07-15] MEDS ORDERED: DARBEPOETIN ALFA 40 MCG/0.4 ML SYRINGE SQ SCH (10:00)
[2021-07-15 10:18] VITALS: BMI 27.8
[2021-07-15] MEDS: amLODIPine 10 MG TAB PO SCH (10:45)
[2021-07-15] MEDS: GABAPENTIN 100 MG CAP PO SCH ×3 (10:45→22:02)
--- NOTE | 2021-07-15 11:30 | P.PN ---
Subjective Progress Note Date: 07/15/21 Principal diagnosis: CHF, CKD This is Kingsley rivers NP, dictating a progress note on behalf of Dr. Munguia. Patient was interviewed and examined. Patient is a pleasant 71-year-old male who initially presented to the hospital with shortness of breath. Patient reports that he is breathing much better today, and is no longer on the BiPAP machine. He states that it's not back to baseline, but significantly improved. Patient continues to demonstrate crackles in the posterior wing, along with a systolic ejection murmur. Patient's blood pressure is elevated today at 179/73. GENERAL: Well-appearing, well-nourished and in no acute distress. NECK: Supple without JVD or thyromegaly. LUNGS: Breath sounds crackles to auscultation in the posterior wing. Respiration equal and unlabored. No wheezes, rales or rhonchi. HEART: Regular rate and rhythm, systolic ejection murmur noted, no rubs or gallops. S1 and S2 heard. EXTREMITIES: Normal range of motion, no edema. No clubbing or cyanosis. Peripheral pulses intact and strong. VITALS: [Temp 97.8, pulse 88, respirations 28, blood pressure 179/73, O2 saturation 95% on 4 L nasal cannula] TELEMETRY: [Normal sinus rhythm with PVCs] LABS: [White count 14.3, hemoglobin 8.8, platelets 376, PT 10.2, INR 0.9, sodium 134, potassium 4.5, B1 45, creatinine 4.32, calcium 8.3, magnesium 2.0, serial troponins negative 3] IMPRESSION/PLAN: 1. Congestive heart failure-continue current medications as prescribed. Dialysis was completed yesterday with the patient's significantly improving. 2. Sinus tachycardia-we'll change amlodipine to 10 mg once a day. Add carvedilol 6.25 mg twice a day. Further recommendations pending the patient's clinical course. The patient has been seen and evaluated. Plan of care has been reviewed and agreed upon by Dr. Munguia. Objective - Vital Signs Vital signs: Vital Signs Temp 97.8 F 07/15/21 04:00 Pulse 88 07/15/21 04:00 Resp 28 H 07/15/21 04:00 BP 179/73 07/15/21 04:00 Pulse Ox 95 07/15/21 04:00 Intake & Output 07/14/21 07/15/21 07/15/21 18:59 06:59 18:59 Intake Total 120 240 Output Total 4000 0 Balance -4000 120 240 Weight 83.2 kg 83.2 kg Intake: Oral 120 240 Output: Urine 0 Hemodialysis 4000 Other: # Voids 0 - Labs CBC & Chem 7: 07/14/21 03:51 07/14/21 03:51 Labs: Abnormal Lab Results - Last 24 Hours (Table) 07/14/21 07/14/21 07/14/21 Range/Units 12:03 17:57 19:38 POC Glucose (mg/dL) 193 H 72 L 185 H (75-99) mg/dL 07/15/21 Range/Units 05:58 POC Glucose (mg/dL) 225 H (75-99) mg/dL
[2021-07-15 11:57] LABS: Glucose,Whole Blood 283 mg/dL (75-99)
[2021-07-15] MEDS: carvediloL 6.25 MG TAB PO SCH (12:34)
[2021-07-15 17:05] LABS: Glucose,Whole Blood 132 mg/dL (75-99)
[2021-07-15] MEDS: FERROUS SULFATE 325 MG TAB PO SCH (17:34)
[2021-07-15] MEDS: SYMBICORT 160-4.5 MCG INHALER INHALATION SCH (19:12)
[2021-07-15 20:37] LABS: Glucose,Whole Blood 166 mg/dL (75-99)
[2021-07-15] MEDS ORDERED: MELATONIN 5 MG TABLET PO SCH (21:00)
[2021-07-15] MEDS ORDERED: ASPIRIN 81 MG PO SCH (21:00)
[2021-07-15] MEDS ORDERED: INSULIN DETEMIR (LEVEMIR) 100 UNIT/ML SYR SQ SCH (21:00)
[2021-07-15] MEDS ORDERED: PANTOPRAZOLE 40 MG TABLET PO SCH (21:00)
[2021-07-15] MEDS ORDERED: ATORVASTATIN 20 MG TAB PO SCH (21:00)
[2021-07-15] MEDS: ISOSORBIDE MONONITRATE ER 60 MG TAB.ER.24H PO SCH (22:01)
[2021-07-16 05:41] VITALS: TEMP 97.9
[2021-07-16] MEDS: FERROUS SULFATE 325 MG TAB PO SCH (06:21)
[2021-07-16] MEDS: INSULIN ASPART (NovoLOG) 100 UNIT/ML VIAL SQ SCH ×4 (06:21→12:16)
[2021-07-16] MEDS: carvediloL 6.25 MG TAB PO SCH (06:21)
[2021-07-16 06:36] LABS: Glucose,Whole Blood 120 mg/dL (75-99)
[2021-07-16] MEDS: SYMBICORT 160-4.5 MCG INHALER INHALATION SCH (07:28)
[2021-07-16] MEDS: amLODIPine 10 MG TAB PO SCH (08:43)
[2021-07-16] MEDS: GABAPENTIN 100 MG CAP PO SCH (08:44)
[2021-07-16] MEDS: ISOSORBIDE MONONITRATE ER 60 MG TAB.ER.24H PO SCH (08:47)
[2021-07-16] MEDS ORDERED: FUROSEMIDE 80 MG TAB PO SCH (09:00)
[2021-07-16] MEDS ORDERED: DULoxetine HCL 20 MG CAPSULE.DR PO SCH (09:00)
[2021-07-16] MEDS ORDERED: OXYBUTYNIN CHLORIDE 5 MG TAB PO SCH (09:00)
[2021-07-16] MEDS ORDERED: CLOPIDOGREL 75 MG TAB PO SCH (09:00)
[2021-07-16] MEDS ORDERED: TAMSULOSIN 0.4 MG CAP.ER.24H PO SCH (09:00)
[2021-07-16 09:07] VITALS: RESP 16
--- NOTE | 2021-07-16 09:40 | P.PN ---
Subjective Patient is seen in follow-up for end-stage renal disease. He is maintained on hemodialysis on Saturday schedule. Tolerated 2 L ultrafiltration yesterday. Dyspnea improved. Currently on room air. No active complaints. Vital signs are stable. General: The patient appeared well nourished and normally developed. HEENT: Head exam is unremarkable. LUNGS: Breath sounds decreased. HEART: Rate and Rhythm are regular. ABDOMEN: Soft, no distention. EXTREMITITES: No edema. Objective - Vital Signs Vital signs: Vital Signs Temp 97.9 F 07/16/21 04:00 Pulse 74 07/16/21 08:00 Resp 16 07/16/21 08:00 BP 137/54 07/16/21 08:00 Pulse Ox 92 L 07/16/21 08:00 Intake & Output 07/15/21 07/16/21 07/16/21 18:59 06:59 18:59 Intake Total 838 120 240 Output Total 1999 Balance -1162 120 240 Weight 83.2 kg 82.7 kg Intake: Oral 838 120 240 Output: Hemodialysis 1999 Other: # Voids 1 0 # Bowel Movements 1 - Labs CBC & Chem 7: 07/14/21 03:51 07/14/21 03:51 Labs: Abnormal Lab Results - Last 24 Hours (Table) 07/15/21 07/15/21 07/15/21 Range/Units 11:54 16:54 19:50 POC Glucose (mg/dL) 283 H 132 H 166 H (75-99) mg/dL 07/16/21 Range/Units 05:51 POC Glucose (mg/dL) 120 H (75-99) mg/dL Assessment and Plan Plan: Assessment: 1. End-stage renal disease maintained on hemodialysis on Saturday schedule. 2. Hypertension with chronic kidney disease. Controlled. On Aranesp. 3. Volume overload. Improved with ultrafiltration. 4. Anemia of chronic kidney disease. 5. Acute on chronic systolic CHF with ejection fraction of 45-50% with mild to moderate aortic regurgitation. Plan: Hemodialysis tomorrow.
[2021-07-16 10:46] LABS: Calcium 8.3 mg/dL (8.4-10.2); Potassium 4.3 mmol/L (3.5-5.1)
[2021-07-16 10:52] LABS: Anisocytosis Slight; Basophils % (A) 0 %; Eosinophils # (A) 0.1 k/uL (0-0.7); Eosinophils % (A) 1 %; HCT 29.8 % (39.0-53.0); HGB 9.1 gm/dL (13.0-17.5); Hypochromasia Marked; Lymphocytes # (A) 0.5 k/uL (1.0-4.8); Lymphocytes % (A) 6 %; MCH 27.4 pg (25.0-35.0); MCHC 30.4 g/dL (31.0-37.0); MCV 90.1 fL (80.0-100.0); Mean Platelet Volume 8.8; Monocytes # (A) 0.5 k/uL (0-1.0); Monocytes % (A) 6 %; Neutrophils # (A) 6.6 k/uL (1.3-7.7); Neutrophils % (A) 85 %; Platelet Count 405 k/uL (150-450); Poikilocytosis Moderate; RBC 3.31 m/uL (4.30-5.90); RDW 18.4 % (11.5-15.5); WBC 7.8 k/uL (3.8-10.6)
[2021-07-16 11:37] LABS: Glucose,Whole Blood 111 mg/dL (75-99)
--- NOTE | 2021-07-16 11:49 | P.PN ---
Subjective Progress Note Date: 07/16/21 Principal diagnosis: CHF, CKD This is Kingsley rivers NP, dictating a progress note on behalf of Dr. Munguia. Patient was interviewed and examined. Patient is a pleasant 71-year-old male who initially presented to the hospital with shortness of breath. Patient reports that he's feeling better, and his breathing is significantly improved today. Patient's blood pressure and heart rate are significantly improved today as well. Patient was able to get dialysis this past Saturday. This significantly assisted the patient is feeling better. GENERAL: Well-appearing, well-nourished and in no acute distress. NECK: Supple without JVD or thyromegaly. LUNGS: Breath sounds demonstrate mild crackles to auscultation posterior lower lobes bilaterally. Respiration equal and unlabored. No wheezes, rales or rhonchi. HEART: Regular rate and rhythm with an ejection systolic murmur, no rubs or gallops. S1 and S2 heard. EXTREMITIES: Normal range of motion, no edema. No clubbing or cyanosis. Peripheral pulses intact and strong. VITALS: [Temp 97.9, pulse rate 74, respirations 16, blood pressure 137/54, O2 saturation 92% on 2 L nasal cannula] TELEMETRY: [Normal sinus rhythm] LABS: [White count 7.8, hemoglobin 9.1, platelets 45, sodium 137, potassium 4.3, BUN 30, creatinine 3.48, calcium 8.3.] IMPRESSION/PLAN: [1. Congestive heart failure-patient reports significant improvement after dialysis. Patient continues to improve. No changes to current medication course. 2. Sinus tachycardia-heart rate appears to be controlled with medication changes yesterday. Continue medications as prescribed. Further recommendations will be based on the patient's clinical course. The patient has been seen and evaluated. Plan of care has been reviewed and agreed upon by Dr. Munguia.] Objective - Vital Signs Vital signs: Vital Signs Temp 97.9 F 07/16/21 04:00 Pulse 74 07/16/21 08:00 Resp 16 07/16/21 08:00 BP 137/54 07/16/21 08:00 Pulse Ox 92 L 07/16/21 08:00 Intake & Output 07/15/21 07/16/21 07/16/21 18:59 06:59 18:59 Intake Total 838 120 240 Output Total 2000 Balance -1162 120 240 Weight 83.2 kg 82.7 kg Intake: Oral 838 120 240 Output: Hemodialysis 1999 Other: # Voids 1 0 # Bowel Movements 1 - Labs CBC & Chem 7: 07/16/21 10:15 07/16/21 10:15 Labs: Abnormal Lab Results - Last 24 Hours (Table) 07/15/21 07/15/21 07/15/21 Range/Units 11:54 16:54 19:50 RBC (4.30-5.90) m/uL Hgb (13.0-17.5) gm/dL Hct (39.0-53.0) % MCHC (31.0-37.0) g/dL RDW (11.5-15.5) % Lymphocytes # (1.0-4.8) k/uL BUN (9-20) mg/dL Creatinine (0.66-1.25) mg/dL Glucose (74-99) mg/dL POC Glucose (mg/dL) 283 H 132 H 166 H (75-99) mg/dL Calcium (8.4-10.2) mg/dL 07/16/21 07/16/21 07/16/21 Range/Units 05:51 10:15 10:15 RBC 3.31 L (4.30-5.90) m/uL Hgb 9.1 L (13.0-17.5) gm/dL Hct 29.8 L (39.0-53.0) % MCHC 30.4 L (31.0-37.0) g/dL RDW 18.4 H (11.5-15.5) % Lymphocytes # 0.5 L (1.0-4.8) k/uL BUN 30 H (9-20) mg/dL Creatinine 3.48 H (0.66-1.25) mg/dL Glucose 122 H (74-99) mg/dL POC Glucose (mg/dL) 120 H (75-99) mg/dL Calcium 8.3 L (8.4-10.2) mg/dL 07/16/21 Range/Units 11:35 RBC (4.30-5.90) m/uL Hgb (13.0-17.5) gm/dL Hct (39.0-53.0) % MCHC (31.0-37.0) g/dL RDW (11.5-15.5) % Lymphocytes # (1.0-4.8) k/uL BUN (9-20) mg/dL Creatinine (0.66-1.25) mg/dL Glucose (74-99) mg/dL POC Glucose (mg/dL) 111 H (75-99) mg/dL Calcium (8.4-10.2) mg/dL
[2021-07-16 12:24] VITALS: BP 170/60; PULSE 83
--- NOTE | 2021-07-16 17:40 | P.PN ---
Subjective Progress Note Date: 07/15/21 Principal diagnosis: Acute hypoxemic respiratory failure Pulmonary edema related to fluid overload secondary to missed dialysis End-stage renal disease/HD 71-year-old gentleman with extensive past medical history of CAD/CHF, COPD, diabetes, hypertension, hyperlipidemia, end-stage renal disease on dialysis Saturday, dialysis was postponed for today due to the thinks . Patient presents in acute respiratory distress due to flash pulmonary edema. History is limited due to respiratory distress; patient was placed on BiPAP in ED LABS: White count 14.3, hemoglobin 8.8, platelets 376, sodium 134, potassium 4.5, B1 45, creatinine 4.32, calcium 8.3, magnesium 2.0, troponin-less than 0.012, less than 0.012. EKG: Sinus tachycardia with PVCs, T-wave inversion in leads V5 and V6 IMAGING: Chest x-ray shows cardiomegaly, with pulmonary congestion Patient is maintained on hemodialysis on Saturday schedule. Tolerated 4 L ultrafiltration yesterday. Dyspnea improved. Currently on 4 L nasal cannula. Patient is to undergo hemodialysis mostly for ultrafiltration; patient is placed on Aranesp and amlodipine is increased due to persistent high blood pressure; patient will receive hydralazine 10 mg every 4-6 hours for systolic blood pressure greater than 160 Objective - Vital Signs Vital signs: Vital Signs Temp 97.8 F 07/15/21 04:00 Pulse 88 07/15/21 04:00 Resp 28 H 07/15/21 04:00 BP 179/73 07/15/21 04:00 Pulse Ox 95 07/15/21 04:00 Intake & Output 07/14/21 07/15/21 07/15/21 18:59 06:59 18:59 Intake Total 120 Output Total 4000 0 Balance -4000 120 Weight 83.2 kg Intake: Oral 120 Output: Urine 0 Hemodialysis 4000 Other: # Voids 0 - Exam GENERAL: The patient is alert and oriented x3, not in any acute distress. Well developed, well nourished. HEENT: Pupils are round and equally reacting to light. EOMI. No scleral icterus. No conjunctival pallor. Normocephalic, atraumatic. No pharyngeal erythema. No thyromegaly. CARDIOVASCULAR: S1 and S2 present. No murmurs, rubs, or gallops. PULMONARY: crackles. ABDOMEN: Soft, nontender, nondistended, normoactive bowel sounds. No palpable organomegaly. MUSCULOSKELETAL: No joint swelling or deformity. EXTREMITIES: No cyanosis, clubbing, or pedal edema. NEUROLOGICAL: Gross neurological examination did not reveal any focal deficits. SKIN: No rashes. - Labs CBC & Chem 7: 07/16/21 10:15 07/16/21 10:15 Labs: Abnormal Lab Results - Last 24 Hours (Table) 07/14/21 07/14/21 07/14/21 Range/Units 12:03 17:57 19:38 POC Glucose (mg/dL) 193 H 72 L 185 H (75-99) mg/dL 07/15/21 Range/Units 05:58 POC Glucose (mg/dL) 225 H (75-99) mg/dL Assessment and Plan Assessment: 1. Acute hypoxemic respiratory failure; related to flash pulmonary edema - Patient remains on BiPAP and IV nitroglycerin infusion 2. Pulmonary edema related to fluid overload secondary to missed dialysis - Nephrology has been consulted and made aware; patient will benefit from urgent hemodialysis 3. End-stage renal disease/HD; nephrology on board and planning to initiate dialysis today with plans for repeat dialysis tomorrow morning for volume management 4. Hypertension; continue with home dose of Norvasc 10 mg daily, Lasix 80 mg daily; metoprolol 25 mg twice a day; Imdur held due to patient being on IV nitroglycerin 5. Hyperlipidemia; statin therapy in form of Lipitor 20 mg by mouth daily at bedtime 6. CAD/CHF; patient remains on aspirin, beta blockers, nitrates and statin therapy 7. Diabetes mellitus; we will monitor Accu-Cheks before meals and at bedtime with insulin sliding scale DVT prophylaxis; SCDs CODE STATUS; full code
[2021-07-29] MEDS ORDERED: ERGOCALCIFEROL 1,250 MCG (50,000 IU) CAPSULE PO SCH (09:00)
== END 2021-07-16 15:04 | disposition home or self-care (01) | DRG 291 ==
LOC: EC 21:02 → 4SSUR 23:48 → 3SCARD 07-14 00:19
PROVIDERS: ADMIT Hospitalist; ATTEND Hospitalist
PROC: 5A09357 Assistance with Respiratory Ventilation, Less than 24 Consecutive Hours, Continuous Positive Airway Pressure (ICD-10-PCS; 2021-07-13)
PROC: 5A1D70Z Performance of Urinary Filtration, Intermittent, Less than 6 Hours Per Day (ICD-10-PCS; principal; 2021-07-14)
DX: I13.2 Hypertensive heart and chronic kidney disease with heart failure and with stage 5 chronic kidney disease, or end stage renal disease (principal); N18.6 End stage renal disease; J96.01 Acute respiratory failure with hypoxia; I50.43 Acute on chronic combined systolic (congestive) and diastolic (congestive) heart failure; Z20.822 Contact with and (suspected) exposure to COVID-19; E11.22 Type 2 diabetes mellitus with diabetic chronic kidney disease; M54.42 Lumbago with sciatica, left side; M54.41 Lumbago with sciatica, right side; G89.29 Other chronic pain; J44.9 Chronic obstructive pulmonary disease, unspecified; I25.10 Atherosclerotic heart disease of native coronary artery without angina pectoris; E78.5 Hyperlipidemia, unspecified; F17.200 Nicotine dependence, unspecified, uncomplicated; D63.1 Anemia in chronic kidney disease; R00.0 Tachycardia, unspecified; E88.89 Other specified metabolic disorders; I35.1 Nonrheumatic aortic (valve) insufficiency; I49.3 Ventricular premature depolarization; I25.2 Old myocardial infarction; Z86.010 Personal history of colon polyps; Z87.19 Personal history of other diseases of the digestive system; Z79.02 Long term (current) use of antithrombotics/antiplatelets; Z79.4 Long term (current) use of insulin; Z79.51 Long term (current) use of inhaled steroids; Z79.82 Long term (current) use of aspirin; Z79.899 Other long term (current) drug therapy; Z80.9 Family history of malignant neoplasm, unspecified; Z99.2 Dependence on renal dialysis
CPT/HCPCS: 36415; 71045; 80048; 80053; 82803; 83690; 83735; 84100; 84484; 85025; 85610; 85730; 87635; 90935; 93005; 94640; 94660; 96365; 96372; 96375; 99285

== ENCOUNTER 2021-08-24 11:16 | Day surgery (SDC) | payer MEDICARE, OTHER ==
[2021-08-18 12:08] VITALS: BMI 27.3
[~2021-08-24 11:16] MED LIST changes: +ACETAMINOPHEN TAB 500 MG TAB PO PRN; +DEXAMETHASONE SOD PHOSPHATE 4 MG/ML 1 ML VIAL IV ONE; +HEPARIN SODIUM,PORCINE/PF 5,000 UNIT/0.5 ML SYRINGE SQ PRN; -HYDROmorphone 0.5 MG/0.5 ML SYRINGE IVP PRN; -ONDANSETRON 4 MG/2 ML VIAL IVP ONE; +ONDANSETRON 4 MG/2 ML VIAL IVP PRN; +fentaNYL (PF) 50 MCG/ML 2 ML AMP IV PRN
[2021-08-24] MEDS ORDERED: SODIUM CHLORIDE 0.9% 1,000 ML IV ONE (11:53)
[2021-08-24 12:04] VITALS: RESP 16; TEMP 98.2
[2021-08-24 12:15] LABS: Glucose,Whole Blood 106 mg/dL (75-99)
[2021-08-24 12:30] LABS: Anisocytosis Slight; Basophils % (A) 0 %; Eosinophils # (A) 0.1 k/uL (0-0.7); Eosinophils % (A) 1 %; HCT 25.5 % (39.0-53.0); Hypochromasia Marked; Lymphocytes # (A) 0.7 k/uL (1.0-4.8); Lymphocytes % (A) 9 %; MCH 25.6 pg (25.0-35.0); MCHC 29.8 g/dL (31.0-37.0); MCV 86.1 fL (80.0-100.0); Mean Platelet Volume 8.4; Monocytes # (A) 0.5 k/uL (0-1.0); Monocytes % (A) 6 %; Neutrophils # (A) 6.6 k/uL (1.3-7.7); Neutrophils % (A) 82 %; Platelet Count 362 k/uL (150-450); RBC 2.96 m/uL (4.30-5.90); RDW 16.1 % (11.5-15.5)
[2021-08-24 12:37] LABS: HGB 7.6 gm/dL (13.0-17.5)
[2021-08-24 12:43] LABS: Albumin 3.4 g/dL (3.5-5.0); Calcium 8.9 mg/dL (8.4-10.2); Potassium 4.9 mmol/L (3.5-5.1); Total Bilirubin 0.3 mg/dL (0.2-1.3); Total Protein 6.5 g/dL (6.3-8.2)
[2021-08-24] MEDS ORDERED: MIDAZOLAM 2 MG/2 ML VIAL ONE (12:51)
[2021-08-24] MEDS ORDERED: KETAMINE 10 MG/ML 20 ML VIAL ONE (12:51)
[2021-08-24] MEDS ORDERED: fentaNYL (PF) 50 MCG/ML 2 ML AMP ONE (12:51)
[2021-08-24] MEDS ORDERED: PROPOFOL 10 MG/ML 20 ML VIAL IV ONE (12:51)
[2021-08-24] MEDS ORDERED: MINERAL OIL 1 APPLIC/ML OIL TOPICAL ONE ×2 (13:15→13:21)
[2021-08-24] MEDS ORDERED: BUPIVACAIN-EPI 0.25%-1:200,000 30 ML VIAL SQ ONE ×2 (13:16→13:21)
--- NOTE | 2021-08-24 13:47 | P.OP ---
Date of Procedure: 08/24/21 Procedure(s) Performed: PREOPERATIVE DIAGNOSIS: Renal failure POSTOPERATIVE DIAGNOSIS: Same PROCEDURE: Peritoneal dialysis catheter insertion SURGEON: Amanda EBL: Minimal ANESTHESIA: Sedation plus local COMPLICATIONS: None OPERATIVE PROCEDURE: The patient was placed in the operative table in the supine position. The abdomen was prepped and draped in usual sterile fashion. A small vertical incision was made in the left periumbilical location. Dissection down through the subcutaneous tissues took place using electrocautery. The anterior rectus was divided vertically using the scalpel. The rectus was bluntly. The posterior rectus was visualized. An 0 Vicryl pursestring was placed. A small opening in the posterior rectus fascia and peritoneum took place using a Metzenbaum scissors. There were no adhesions to the suture that was placed. The pigtail catheter was advanced into the pelvis over a stylette. No resistance was met. The inner cuff was secured to the fascia using the 0 Vicryl pursestring that was placed. The catheter was tunneled to an exit site in the right lateral lower quadrant. The catheter was connected to the 1 L bag of saline and approximated 800 mL of saline was easily introduced into the peritoneal cavity. The fluid was then allowed to evacuate. The majority of the fluid was returned. The anterior rectus fascia was then reapproximated using a running 0 Vicryl stitch. The subcutaneous tissues reprepped using 3-0 Vicryl sutures and the skin using 4-0 Monocryl sutures. The outpatient dialysis adapter was applied to the end of the catheter. Sterile dressings were then applied after skin glue was placed over the incision. DISPOSITION: Stable to recovery room
[2021-08-24 14:19] VITALS: BP 114/44; PULSE 62
[2021-08-24] MEDS ORDERED: HYDROcodone/APAP 5-325MG 1 EACH TAB PO ONE (14:30)
== END 2021-08-24 14:51 | disposition home or self-care (01) ==
LOC: OR 11:16
PROVIDERS: ATTEND Surgery
DX: N17.8 Other acute kidney failure (principal); Z20.822 Contact with and (suspected) exposure to COVID-19
CPT/HCPCS: 49419; 86900; 86901; 80053; 85025; 86850; 87635; C1752; J2250; J1100; J0690; J2405; J3010; J2704; J1644

== ENCOUNTER 2021-09-05 13:55 | Emergency (ER) | payer OTHER ==
[2021-09-05] MEDS ORDERED: SODIUM CHLORIDE 0.9% 500 ML 500 ML IV STA (15:51)
--- NOTE | 2021-09-05 16:00 | ED ---
General Adult HPI - General Chief complaint: Recheck/Abnormal Lab/Rx Stated complaint: low hemoglobin Time Seen by Provider: 09/05/21 15:10 Source: patient, RN notes reviewed, old records reviewed Mode of arrival: wheelchair Limitations: no limitations - History of Present Illness Initial comments: This is a 71-year-old male who has a past medical history significant for renal failure as well as anemia. Patient is been in multiple times for blood tra nsfusions. Patient comes in today because his hemoglobin is 6.7 a and he's been feeling much more fatigued over the last 4-5 days. Patient states he has some soreness shortness of breath with exertion however sitting here he does not. Patient denies chest pain or palpitations. Patient has any recent fever chills or cough. Patient denies abdominal pain patient's nausea vomiting diarrhea. - Related Data Home Medications Medication Instructions Recorded Confirmed Ergocalciferol (Vitamin D2) 50,000 unit PO Q14D 07/18/17 08/24/21 [Vitamin D2] Aspirin EC [Ecotrin Low Dose] 81 mg PO HS 02/10/18 08/24/21 DULoxetine HCL [Cymbalta] 20 mg PO DAILY 10/27/20 08/24/21 Melatonin 5 mg PO HS 12/19/20 08/24/21 Sennosides-Docusate Sodium 2 tab PO TID PRN 12/31/20 08/24/21 [Senokot-S] Gabapentin [Neurontin] 100 mg PO TID 01/23/21 08/24/21 Nitroglycerin Sl Tabs [Nitrostat] 0.4 mg SL Q5M PRN 01/23/21 08/24/21 rOPINIRole HCL [Requip] 0.5 mg PO TID 01/23/21 08/24/21 Furosemide [Lasix] 80 mg PO DAILY 02/17/21 08/24/21 Lidocaine-Prilocaine Cream [Emla 1 applic TOPICAL DIRECTED PRN 02/17/21 08/24/21 Cream 2.5%/2.5%] Atorvastatin [Lipitor] 20 mg PO HS 05/08/21 08/24/21 Ondansetron [Zofran] 4 mg PO DAILY PRN 05/08/21 08/24/21 Oxybutynin Chloride [Ditropan] 5 mg PO DAILY 06/28/21 08/24/21 Insulin Glargine [Lantus Vial] 30 unit SQ HS 07/13/21 08/24/21 Insulin Aspart [NovoLOG] 0 units SQ DIRECTED 08/18/21 08/24/21 Previous Rx's Medication Instructions Recorded Isosorbide Mononitrate ER [Imdur] 60 mg PO BID #60 tab.er.24h 04/21/20 Budesonide-Formot 160-4.5 Mcg 2 puff INHALATION RT-BID #1 inhaler 02/01/21 [Symbicort 160-4.5 Mcg Inhaler] Omeprazole [PriLOSEC] 40 mg PO HS #0 02/18/21 Clopidogrel [Plavix] 75 mg PO DAILY #30 tab 04/12/21 amLODIPine [Norvasc] 5 mg PO DAILY #30 tab 05/10/21 carvediloL [Coreg] 6.25 mg PO BID-W/MEALS #60 tab 07/16/21 oxyCODONE HCL [OxyIR] 5 mg PO Q6H PRN 3 Days #6 tab 08/24/21 Allergies Allergy/AdvReac Type Severity Reaction Status Date / Time Iodinated Contrast Media AdvReac CAN'T Verified 09/05/21 15:13 TAKE, RENAL DISEASE Iodine and Iodide Containing AdvReac CAN'T Verified 09/05/21 15:13 Produc TAKE, RENAL DISEASE Review of Systems ROS Statement: Those systems with pertinent positive or pertinent negative responses have been documented in the HPI. ROS Other: All systems not noted in ROS Statement are negative. Past Medical History Past Medical History: Coronary Artery Disease (CAD), Chest Pain / Angina, COPD, Diabetes Mellitus, GERD/Reflux, GI Bleed, Hyperlipidemia, Hypertension, Pneumonia, Renal Disease, Vascular Disorder Additional Past Medical History / Comment(s): IDDM type II, lower GI bleed, benign colon polyps, spouse states micro bleeds in intestine are suspected, abdominal distention comes and goes which is nearly daily, partial SBO, chronic renal disease stage IV HD MWF, iron anemia with iron transfusions (recent R upper chest mediport for infusions), PVD, stable lung nodules, chronic low back pain with bilateral sciatica, RLS, vertigo, insomnia, past agent orange exposure. Last Myocardial Infarction Date:: 03/2020 History of Any Multi-Drug Resistant Organisms: None Reported Past Surgical History: Cholecystectomy, Heart Catheterization Additional Past Surgical History / Comment(s): 03/25/20 R sublclavian mediport, R carotid stent done in [place], EGD/colonoscopyDecember 2017, endoscopic c apsule, fx lt wrist -sx re-set, aortagram, bilateral leg revascularizations/stents, Left upper arm fistula Past Anesthesia/Blood Transfusion Reactions: No Reported Reaction Additional Past Anesthesia/Blood Transfusion Reaction / Comment(s): Pt has had blood transfusion without reaction. Date of Last Stent Placement:: 04/27/20 Past Psychological History: No Psychological Hx Reported Smoking Status: Current every day smoker Past Alcohol Use History: None Reported Past Drug Use History: None Reported - Past Family History Father History Unknown: Yes Mother Family Medical History: Cancer Additional Family Medical History / Comment(s): Mother from metastatic cancer pelvic origin. General Exam - General Exam Comments Initial Comments: GENERAL: Patient is well-developed and well-nourished. Patient is nontoxic and well- hydrated and is in mild distress. ENT: Neck is soft and supple. No significant lymphadenopathy is noted. Oropharynx is clear. Moist mucous membranes. Neck has full range of motion without eliciting any pain. EYES: Conjunctiva is pale. Extraocular movements were intact and pupils were equal round and reactive to light. Eyelids were unremarkable. PULMONARY: Unlabored respirations. Good breath sounds bilaterally. No audible rales rhonchi or wheezing was noted. CARDIOVASCULAR: There is a regular rate and rhythm without any murmurs gallops or rubs. ABDOMEN: Soft and nontender with normal bowel sounds. SKIN: Patient's skin is pale NEUROLOGIC: Patient is alert and oriented x3. Cranial nerves II through XII are grossly intact. Motor and sensory are also intact. Normal speech, volume and content. Symmetrical smile. MUSCULOSKELETAL: Normal extremities with adequate strength and full range of motion. LYMPHATICS: No significant lymphadenopathy is noted PSYCHIATRIC: Normal psychiatric evaluation. Limitations: no limitations Course Vital Signs 09/05/21 09/05/21 09/05/21 15:10 15:21 18:50 Temperature 98.1 F 97.8 F Pulse Rate 67 70 Pulse Rate [ 65 Clip Loading Machine Feeder ] Respiratory 20 16 Rate Blood Pressure 111/46 151/63 O2 Sat by Pulse 100 95 Oximetry 09/05/21 09/05/21 09/05/21 19:00 19:15 19:30 Temperature 98.7 F 97.7 F 98.2 F Pulse Rate 65 70 Pulse Rate [ Clip Loading Machine Feeder ] Respiratory 16 18 18 Rate Blood Pressure 123/62 151/70 147/56 O2 Sat by Pulse 98 Oximetry Medical Decision Making - Medical Decision Making EKG shows normal sinus rhythm at 65 bpm VA interval 160 QRS is 92 QT interval 444 QTC is 461. Patient's EKG shows no ST segment elevation or depression. Patient's hemoglobin is 6.7 and he received 1 unit of packed red blood cells. Dr. Singletary nurse practitioner was contacted and she agreed to follow him up. The patient gets regular blood draws with his dialysis. - Lab Data Result diagrams: 09/05/21 Unknown 09/05/21 Unknown Lab Results 09/05/21 09/05/21 09/05/21 Range/Units 16:30 16:30 16:45 WBC (3.8-10.6) k/uL RBC (4.30-5.90) m/uL Hgb (13.0-17.5) gm/dL Hct (39.0-53.0) % MCV (80.0-100.0) fL MCH (25.0-35.0) pg MCHC (31.0-37.0) g/dL RDW (11.5-15.5) % Plt Count (150-450) k/uL MPV Neutrophils % % Lymphocytes % % Monocytes % % Eosinophils % % Basophils % % Neutrophils # (1.3-7.7) k/uL Lymphocytes # (1.0-4.8) k/uL Monocytes # (0-1.0) k/uL Eosinophils # (0-0.7) k/uL Basophils # (0-0.2) k/uL Hypochromasia Poikilocytosis Anisocytosis PT 10.2 (9.0-12.0) sec INR 0.9 (<1.2) APTT 21.5 L (22.0-30.0) sec Sodium (137-145) mmol/L Potassium (3.5-5.1) mmol/L Chloride (98-107) mmol/L Carbon Dioxide (22-30) mmol/L Anion Gap mmol/L BUN (9-20) mg/dL Creatinine (0.66-1.25) mg/dL Est GFR (CKD-EPI)AfAm (>60 ml/min/1.73 sqM) Est GFR (CKD-EPI)NonAf (>60 ml/min/1.73 sqM) Glucose (74-99) mg/dL Plasma Lactic Acid Leobardo 0.7 (0.7-2.0) mmol/L Calcium (8.4-10.2) mg/dL Magnesium (1.6-2.3) mg/dL Total Bilirubin (0.2-1.3) mg/dL AST (17-59) U/L ALT (4-49) U/L Alkaline Phosphatase (38-126) U/L Troponin I (0.000-0.034) ng/mL Total Protein (6.3-8.2) g/dL Albumin (3.5-5.0) g/dL Blood Type B Positive Blood Type Recheck B Pos Bld Type Recheck Status No Antibody Screen NEGATIVE Crossmatch See Detail Spec Expiration Date 09/08/2021 - 232909/05/21 09/05/21 09/05/21 Range/Units Unknown Unknown Unknown WBC 6.7 (3.8-10.6) k/uL RBC 2.85 L (4.30-5.90) m/uL Hgb 6.7 L* (13.0-17.5) gm/dL Hct 23.4 L (39.0-53.0) % MCV 82.1 (80.0-100.0) fL MCH 23.6 L (25.0-35.0) pg MCHC 28.7 L (31.0-37.0) g/dL RDW 16.0 H (11.5-15.5) % Plt Count 201 (150-450) k/uL MPV 9.0 Neutrophils % 78 % Lymphocytes % 11 % Monocytes % 7 % Eosinophils % 1 % Basophils % 0 % Neutrophils # 5.2 (1.3-7.7) k/uL Lymphocytes # 0.7 L (1.0-4.8) k/uL Monocytes # 0.5 (0-1.0) k/uL Eosinophils # 0.1 (0-0.7) k/uL Basophils # 0.0 (0-0.2) k/uL Hypochromasia Marked Poikilocytosis Slight Anisocytosis Slight PT (9.0-12.0) sec INR (<1.2) APTT (22.0-30.0) sec Sodium 133 L (137-145) mmol/L Potassium 4.6 (3.5-5.1) mmol/L Chloride 105 (98-107) mmol/L Carbon Dioxide 23 (22-30) mmol/L Anion Gap 5 mmol/L BUN 36 H (9-20) mg/dL Creatinine 3.26 H (0.66-1.25) mg/dL Est GFR (CKD-EPI)AfAm 21 (>60 ml/min/1.73 sqM) Est GFR (CKD-EPI)NonAf 18 (>60 ml/min/1.73 sqM) Glucose 177 H (74-99) mg/dL Plasma Lactic Acid Leobardo (0.7-2.0) mmol/L Calcium 7.6 L (8.4-10.2) mg/dL Magnesium 1.7 (1.6-2.3) mg/dL Total Bilirubin 0.5 (0.2-1.3) mg/dL AST 32 (17-59) U/L ALT 9 (4-49) U/L Alkaline Phosphatase 73 (38-126) U/L Troponin I <0.012 (0.000-0.034) ng/mL Total Protein 5.4 L (6.3-8.2) g/dL Albumin 2.6 L (3.5-5.0) g/dL Blood Type Blood Type Recheck Bld Type Recheck Status Antibody Screen Crossmatch Spec Expiration Date Disposition Clinical Impression: Anemia, chronic renal failure Disposition: HOME SELF-CARE Condition: Good Instructions (If sedation given, give patient instructions): Anemia (ED) Is patient prescribed a controlled substance at d/c from ED?: No Referrals: [facility],Clinic [Primary Care Provider] - 1-2 days Time of Disposition: 20:12
[2021-09-05 16:12] LABS: Albumin 2.6 g/dL (3.5-5.0); Calcium 7.6 mg/dL (8.4-10.2); Magnesium 1.7 mg/dL (1.6-2.3); Total Bilirubin 0.5 mg/dL (0.2-1.3); Total Protein 5.4 g/dL (6.3-8.2)
[2021-09-05 16:13] LABS: Potassium 4.6 mmol/L (3.5-5.1)
[2021-09-05 16:17] LABS: Anisocytosis Slight; Basophils % (A) 0 %; Eosinophils # (A) 0.1 k/uL (0-0.7); Eosinophils % (A) 1 %; HCT 23.4 % (39.0-53.0); Hypochromasia Marked; Lymphocytes # (A) 0.7 k/uL (1.0-4.8); Lymphocytes % (A) 11 %; MCH 23.6 pg (25.0-35.0); MCHC 28.7 g/dL (31.0-37.0); MCV 82.1 fL (80.0-100.0); Monocytes # (A) 0.5 k/uL (0-1.0); Monocytes % (A) 7 %; Neutrophils # (A) 5.2 k/uL (1.3-7.7); Neutrophils % (A) 78 %; Platelet Count 201 k/uL (150-450); Poikilocytosis Slight; RBC 2.85 m/uL (4.30-5.90); WBC 6.7 k/uL (3.8-10.6)
[2021-09-05 16:22] LABS: HGB 6.7 gm/dL (13.0-17.5)
[2021-09-05 17:20] LABS: INR 0.9 (<1.2)
[2021-09-05 17:21] LABS: Prothrombin Time 10.2 sec (9.0-12.0)
[2021-09-05 17:25] LABS: Partial Thromboplastin Time 21.5 sec (22.0-30.0)
[2021-09-05 21:36] VITALS: RESP 16; TEMP 97.7
[2021-09-05 23:23] VITALS: BP 126/67; PULSE 86
== END 2021-09-05 22:10 | disposition home or self-care (01) ==
LOC: EC 13:55
DX: D64.9 Anemia, unspecified (principal); N18.9 Chronic kidney disease, unspecified; J44.9 Chronic obstructive pulmonary disease, unspecified; E11.9 Type 2 diabetes mellitus without complications; I10 Essential (primary) hypertension; Z86.79 Personal history of other diseases of the circulatory system; Z79.4 Long term (current) use of insulin; Z91.041 Radiographic dye allergy status
CPT/HCPCS: 36415; 93005; 86900; 86901; 80053; 83605; 83735; 84484; 85025; 85610; 85730; 86850; 86920; 99283; 96374; P9016; J1642

== ENCOUNTER 2021-11-23 12:25 | Day surgery (SDC) | payer MEDICARE, OTHER ==
[2021-11-22 14:02] VITALS: BMI 27.8
[~2021-11-23 12:25] MED LIST changes: +HYDROmorphone 0.5 MG/0.5 ML SYRINGE IVP PRN; +METOCLOPRAMIDE 5 MG/ML 2 ML VIAL IVP PRN; +ONDANSETRON 4 MG/2 ML VIAL IVP ONE; -ONDANSETRON 4 MG/2 ML VIAL IVP PRN; -fentaNYL (PF) 50 MCG/ML 2 ML AMP IV PRN
[2021-11-23 13:10] LABS: Glucose,Whole Blood 75 mg/dL (75-99)
[2021-11-23 13:15] LABS: Anisocytosis Slight; Basophils % (A) 0 %; Eosinophils # (A) 0.1 k/uL (0-0.7); Eosinophils % (A) 1 %; HCT 27.3 % (39.0-53.0); HGB 7.9 gm/dL (13.0-17.5); Hypochromasia Marked; Lymphocytes # (A) 0.9 k/uL (1.0-4.8); Lymphocytes % (A) 10 %; MCH 24.7 pg (25.0-35.0); MCHC 28.9 g/dL (31.0-37.0); MCV 85.3 fL (80.0-100.0); Mean Platelet Volume 9.2; Microcytosis Slight; Monocytes # (A) 0.5 k/uL (0-1.0); Monocytes % (A) 6 %; Neutrophils # (A) 6.8 k/uL (1.3-7.7); Neutrophils % (A) 81 %; Platelet Count 392 k/uL (150-450); RDW 19.3 % (11.5-15.5); WBC 8.4 k/uL (3.8-10.6)
[2021-11-23] MEDS ORDERED: SODIUM CHLORIDE 0.9% 500 ML 500 ML IV ONE (13:19)
[2021-11-23 13:32] LABS: Albumin 3.4 g/dL (3.5-5.0); Calcium 8.8 mg/dL (8.4-10.2); Potassium 4.4 mmol/L (3.5-5.1); Total Bilirubin 0.5 mg/dL (0.2-1.3); Total Protein 6.7 g/dL (6.3-8.2)
[2021-11-23] MEDS ORDERED: fentaNYL (PF) 50 MCG/ML 2 ML AMP ONE (13:42)
[2021-11-23] MEDS ORDERED: MIDAZOLAM 2 MG/2 ML VIAL ONE (13:42)
[2021-11-23] MEDS ORDERED: ePHEDrine 50 MG/ML 1 ML VIAL ONE (13:42)
[2021-11-23] MEDS ORDERED: ETOMIDATE 2 MG/ML 10 ML VIAL ONE (13:42)
[2021-11-23] MEDS ORDERED: PROPOFOL 10 MG/ML 20 ML VIAL IV ONE (13:42)
[2021-11-23] MEDS ORDERED: LIDOCAINE 1% INJ 10MG/ML (20 ML MDV) ONE (13:42)
[2021-11-23] MEDS ORDERED: BUPIVACAIN-EPI 0.25%-1:200,000 30 ML VIAL SQ ONE ×3 (14:04→14:07)
[2021-11-23] MEDS ORDERED: MINERAL OIL 1 APPLIC/ML OIL TOPICAL ONE ×2 (14:09→14:14)
[2021-11-23 15:03] VITALS: TEMP 97.5
[2021-11-23 15:10] LABS: Glucose,Whole Blood 87 mg/dL (75-99)
[2021-11-23] MEDS ORDERED: NALOXONE 0.4 MG/ML 1 ML VIAL IV PRN (15:17)
--- NOTE | 2021-11-23 15:21 | P.OP ---
Date of Procedure: 11/23/21 Procedure(s) Performed: PREOPERATIVE DIAGNOSIS: Renal failure, malfunctioning dialysis catheter POSTOPERATIVE DIAGNOSIS: Same PROCEDURE: Peritoneal dialysis catheter insertion and removal SURGEON: Amanda EBL: 10 mL ANESTHESIA: General COMPLICATIONS: None OPERATIVE PROCEDURE: The patient was placed in the operative table in the supine position. The abdomen was prepped and draped in usual sterile fashion. A small vertical incision was made in the right periumbilical location. Dissection down through the subcutaneous tissues took place using electrocautery. The anterior rectus was divided vertically using the scalpel. The rectus was bluntly. The posterior rectus was visualized. An 0 Vicryl pursestring was placed. A small opening in the posterior rectus fascia and peritoneum took place using a Metzenbaum scissors. There were no adhesions to the suture that was placed. The pigtail catheter was advanced into the pelvis over a stylette. No resistance was met. The inner cuff was secured to the fascia using the 0 Vicryl pursestring that was placed. The catheter was tunneled to an exit site in the right lateral lower quadrant. The catheter was connected to the 1 L bag of saline and approximated 800 mL of saline was easily introduced into the peritoneal cavity. The fluid was then allowed to evacuate. The majority of the fluid was returned. The anterior rectus fascia was then reapproximated using a running 0 Vicryl stitch. The subcutaneous tissues reprepped using 3-0 Vicryl sutures and the skin using 4-0 Monocryl sutures. The outpatient dialysis adapter was applied to the end of the catheter. Sterile dressings were then applied after skin glue was placed over the incision. Next the left-sided catheter was addressed. The previous paramedian incision was re-incised after localizing the skin. The subcutaneous tissues were divided using electrocautery. Blunt dissection around the cuff that was present at the fascia and peritoneum took place. The cuff was fully mobilized. The catheter was removed from the peritoneal cavity. The outer cuff was dissected from the subcutaneous fascia using electrocautery. The catheter was completely removed at that time. No evidence of purulence or fluid around the catheter was noted. There was no skin opening at the exit site. The fascial defect was closed using a single [id number] 0 Vicryl stitch. The subcutaneous tissues were closed using 3-0 Vicryl sutures and the skin using 4-0 Monocryl sutures. Skin glue and sterile dressings were applied. DISPOSITION: Stable to recovery room
[2021-11-23 16:19] VITALS: BP 129/55; PULSE 73; RESP 20
== END 2021-11-23 16:30 | disposition home or self-care (01) ==
LOC: OR 12:25
PROVIDERS: ATTEND Surgery
DX: N19 Unspecified kidney failure (principal); T82.41XA Breakdown (mechanical) of vascular dialysis catheter, initial encounter; I25.10 Atherosclerotic heart disease of native coronary artery without angina pectoris; Z95.1 Presence of aortocoronary bypass graft; I10 Essential (primary) hypertension; E87.5 Hyperkalemia; J44.9 Chronic obstructive pulmonary disease, unspecified; E11.9 Type 2 diabetes mellitus without complications; G62.9 Polyneuropathy, unspecified; Z79.4 Long term (current) use of insulin; Z79.02 Long term (current) use of antithrombotics/antiplatelets; Z79.82 Long term (current) use of aspirin; Z79.899 Other long term (current) drug therapy
CPT/HCPCS: 49418; 80053; 85025; C1752; J2250; J1100; J0690; J2405; J2001; J3010; J2704; J1170; J1644

== ENCOUNTER 2021-12-15 05:51 | Day surgery (SDC) | payer MEDICARE, OTHER ==
[2021-12-14 09:21] VITALS: BMI 27.3
[~2021-12-15 05:51] MED LIST changes: -ACETAMINOPHEN TAB 500 MG TAB PO PRN; -HEPARIN SODIUM,PORCINE/PF 5,000 UNIT/0.5 ML SYRINGE SQ PRN; -HYDROmorphone 0.5 MG/0.5 ML SYRINGE IVP PRN; -LIDOCAINE 1% (10MG/ML) FOR IV START INTRADERMA PRN; -METOCLOPRAMIDE 5 MG/ML 2 ML VIAL IVP PRN; +MIDAZOLAM 2 MG/2 ML VIAL IV PRN
[2021-12-15 06:22] VITALS: TEMP 97
[2021-12-15] MEDS ORDERED: SODIUM CHLORIDE 0.9% 1,000 ML IV ONE (06:39)
[2021-12-15] MEDS ORDERED: HYDROmorphone 0.5 MG/0.5 ML SYRINGE IVP PRN (07:00)
[2021-12-15 07:02] LABS: Glucose,Whole Blood 69 mg/dL (75-99)
[2021-12-15] MEDS ORDERED: DEXTROSE 50% SYRINGE 50 ML IVP ONE (07:11)
[2021-12-15 07:15] LABS: Anisocytosis Slight; HCT 24.4 % (39.0-53.0); HGB 7.1 gm/dL (13.0-17.5); Hypochromasia Marked; MCH 23.8 pg (25.0-35.0); MCV 82.1 fL (80.0-100.0); Mean Platelet Volume 8.2; Microcytosis Slight; Platelet Count 386 k/uL (150-450); RBC 2.98 m/uL (4.30-5.90); RDW 18.6 % (11.5-15.5); WBC 9.9 k/uL (3.8-10.6)
[2021-12-15 07:18] LABS: Glucose,Whole Blood 153 mg/dL (75-99)
--- NOTE | 2021-12-15 07:21 | P.HPIHPCON ---
History of Present Illness H&P Date: 12/15/21 Jack is a 71-year-old male with end-stage renal disease who initially had a left upper extremity brachial axillary graft placed. He subsequently transitioned to peritoneal dialysis. Last month, he had a malfunction and breakage of his peritoneal dialysis catheter was prepped with a to utilize the graft more frequently he had the peritoneal dialysis catheter replaced and in the interim awaiting for the catheter to be ready for use, the AV graft thrombosis. This was approximately a week and a half ago. He has been using the peritoneal catheter since then without issue. We have been asked to attempt to reopen this as access point should his peritoneal dialysis have issues once more. Risks and benefits were discussed including but not limited to bleeding, infection, injury to the vessels and inability to open the graft. The family and the patient seemingly understand and are willing to proceed. Consent for Procedure: I have explained the operation/procedure to the patient, including the risks, benefits, side effects, alternative therapies (including not receiving the proposed treatment or service), the likelihood of the patient achieving his/her goals, and potential recuperation problems for the procedure/sedation/analgesia, as well as any blood products, if indicated. I also explained to the patient the risks, benefits and side effects of the alternatives, as well as the risks related to not receiving the proposed procedure, care, treatment, or services. Past Medical History Past Medical History: Coronary Artery Disease (CAD), Chest Pain / Angina, COPD, Diabetes Mellitus, Dialysis, GERD/Reflux, GI Bleed, Hyperlipidemia, Hypertension, Pneumonia, Renal Disease, Vascular Disorder Additional Past Medical History / Comment(s): Per spouse "hemodialysis catheter plugged up on December 04." Spouse states "micro bleeds in intestine are suspected". Chronic renal disease stage IV- currently doing peritoneal dialysis four times day. Iron anemia with iron transfusions (recent R upper chest mediport for infusions). PVD. Lung nodules, chronic low back pain with bilateral sciatica, RLS, vertigo, insomnia, past agent orange exposure. Spouse denies hx CHF. Last Myocardial Infarction Date:: 03/2020 History of Any Multi-Drug Resistant Organisms: None Reported Past Surgical History: Cholecystectomy, Heart Catheterization With Stent Additional Past Surgical History / Comment(s): 03/25/20 R sublclavian mediport, R carotid stent done in [place], EGD/colonoscopy, endoscopic capsule, ORIF left wrist, aortagram, bilateral leg revascularizations/stents, left upper arm fistu la, peritoneal dialysis catheter removal and insertion (11/23/21). Past Anesthesia/Blood Transfusion Reactions: No Reported Reaction Additional Past Anesthesia/Blood Transfusion Reaction / Comment(s): . Date of Last Stent Placement:: 03/2021 Past Psychological History: PTSD Smoking Status: Current every day smoker, Vaper Past Alcohol Use History: None Reported Additional Past Alcohol Use History / Comment(s): Pt started smoking in 1964 and is a 1 ppd smoker. Past Drug Use History: Marijuana Additional Drug Use History / Comment(s): Occasional Marijuana use. Aware no use 24 hrs prior to procedure. - Past Family History Father History Unknown: Yes Mother Family Medical History: Cancer Additional Family Medical History / Comment(s): . Medications and Allergies Home Medications Medication Instructions Recorded Confirmed Type Ergocalciferol (Vitamin D2) 50,000 unit PO Q14D 07/18/17 12/14/21 History [Vitamin D2] Aspirin EC [Ecotrin Low Dose] 81 mg PO HS 02/10/18 12/14/21 History Isosorbide Mononitrate ER [Imdur] 60 mg PO BID #60 tab.er.24h 04/21/20 12/14/21 Rx DULoxetine HCL [Cymbalta] 20 mg PO HS 10/27/20 12/14/21 History Melatonin 5 mg PO HS 12/19/20 12/14/21 History Sennosides-Docusate Sodium 2 tab PO TID PRN 12/31/20 12/14/21 History [Senokot-S] Gabapentin [Neurontin] 100 mg PO TID 01/23/21 12/14/21 History Nitroglycerin Sl Tabs [Nitrostat] 0.4 mg SL Q5M PRN 01/23/21 12/14/21 History rOPINIRole HCL [Requip] 0.5 mg PO TID 01/23/21 12/14/21 History Furosemide [Lasix] 80 mg PO QAM 02/17/21 12/14/21 History Lidocaine-Prilocaine Cream [Emla 1 applic TOPICAL DIRECTED PRN 02/17/21 12/14/21 History Cream 2.5%/2.5%] Clopidogrel [Plavix] 75 mg PO DAILY #30 tab 04/12/21 12/14/21 Rx Atorvastatin [Lipitor] 20 mg PO HS 05/08/21 12/14/21 History Ondansetron [Zofran] 4 mg PO DAILY PRN 05/08/21 12/14/21 History Oxybutynin Chloride [Ditropan] 5 mg PO HS 06/28/21 12/14/21 History Insulin Glargine [Lantus Vial] 35 unit SQ HS 07/13/21 12/14/21 History Insuln Asp Prt/Insulin Aspart 8 unit SQ AC-TID 11/12/21 12/14/21 History [NovoLOG MIX 70-30 VIAL] Lactulose [Constulose] 10 gm PO DAILY PRN 11/12/21 12/14/21 History Nephro-Deepa 1 tab PO DAILY 11/12/21 12/14/21 History Omeprazole 80 mg PO HS 11/12/21 12/14/21 History amLODIPine [Norvasc] 5 mg PO QAM 11/12/21 12/14/21 History carvediloL [Coreg] 6.25 mg PO BID 11/22/21 12/14/21 History Cyanocobalamin [Vitamin B-12] 500 mcg PO DAILY 12/14/21 12/14/21 History Allergies Allergy/AdvReac Type Severity Reaction Status Date / Time Iodinated Contrast Media AdvReac CAN'T Verified 12/15/21 06:17 TAKE, RENAL DISEASE Iodine and Iodide Containing AdvReac CAN'T Verified 12/15/21 06:17 Produc TAKE, RENAL DISEASE Surgical - Exam Vital Signs Temp Pulse Resp BP Pulse Ox 97.0 F L 66 20 128/61 100 12/15/21 06:20 12/15/21 06:20 12/15/21 06:20 12/15/21 06:20 12/15/21 06:20 Gen. is a pleasant cooperative male in no acute distress. Chronically ill-appearing. HEENT is normocephalic. Heart appears regular at this time. Lungs are clear but diminished. Right chest wall port. Abdominal peritoneal dialysis catheter. Extremities no clubbing, cyanosis or edema. Thrombosed left upper extremity graft Results - Labs 12/15/21 07:02 Abnormal Lab Results - Last 24 Hours (Table) 04/29/22 04/29/22 Range/Units 07:01 07:02 RBC 2.98 L (4.30-5.90) m/uL Hgb 7.1 L (13.0-17.5) gm/dL Hct 24.4 L (39.0-53.0) % MCH 23.8 L (25.0-35.0) pg MCHC 29.0 L (31.0-37.0) g/dL RDW 18.6 H (11.5-15.5) % POC Glucose (mg/dL) 69 L (75-99) mg/dL Assessment and Plan Assessment: End-stage renal disease on dialysis Thrombosed left upper extremity graft Plan: At this time the patient for open thrombectomy and fistulogram. Risks and benefits were discussed. They seemingly understand and are willing to proceed as such.
[2021-12-15 07:25] LABS: Prothrombin Time 10.5 sec (9.0-12.0)
[2021-12-15] MEDS ORDERED: diphenhydrAMINE 50 MG/ML 1 ML VIAL ONE (07:30)
[2021-12-15] MEDS ORDERED: fentaNYL (PF) 50 MCG/ML 2 ML AMP ONE (07:30)
[2021-12-15] MEDS ORDERED: HEPARIN SODIUM,PORCINE 5,000 UNIT/ML 1 ML VIAL ONE (07:30)
[2021-12-15] MEDS ORDERED: MIDAZOLAM 2 MG/2 ML VIAL ONE (07:30)
[2021-12-15] MEDS ORDERED: methylPREDNISolone SOD SUCCI 125 MG/2 ML VIAL ONE (07:30)
[2021-12-15 07:43] LABS: Albumin 3.1 g/dL (3.5-5.0); Calcium 7.9 mg/dL (8.4-10.2); Potassium 3.4 mmol/L (3.5-5.1); Total Bilirubin 0.3 mg/dL (0.2-1.3)
[2021-12-15] MEDS ORDERED: LIDOCAINE 1% INJ 10MG/ML (20 ML MDV) SQ ONE ×2 (07:55)
[2021-12-15] MEDS ORDERED: IOPAMIDOL-370 100ML BTL MISCELLANE ONE ×2 (08:12)
[2021-12-15] MEDS ORDERED: HEPARIN SODIUM,PORCINE 2,000 UNIT in SODIUM CHLORIDE 0.9% 500 ML 500 ML IRRIGATION ONE (08:25)
[2021-12-15 09:34] LABS: Glucose,Whole Blood 119 mg/dL (75-99)
--- NOTE | 2021-12-15 09:49 | P.OP ---
Date of Procedure: 12/15/21 Description of Procedure: Preoperative diagnosis: End-stage renal disease, thrombosed left upper extremity graft Postoperative diagnosis: Same Procedure: Open thrombectomy left upper extremity AV graft Fistulogram Percutaneous transluminal balloon angioplasty of the axillary venous anastomosis Percutaneous transluminal balloon angioplasty of the brachial artery anastomosis Surgeon: Jennifer Toth D.O. EBL: 75 mL IV fluids: See records Urine output: Not measured Drains: None Complications: None immediately apparent Condition: Stable to recovery Operative indication and findings: Patient is a 71-year-old male who has end- stage renal disease. He is currently utilizing peritoneal dialysis catheter but had thrombosed his dialysis graft in his arm. Attempts to open this were discussed and it was decided that he may benefit if he has another available option for dialysis if possible. Risks and benefits of going forward with open thrombectomy were discussed. He seemingly understood and are willing to proceed. Procedure in detail: [Patient was taken to the operative suite and placed in supine position. The left upper extremity is prepped and draped in usual sterile fashion. A preprocedure timeout was performed, all parties are in agreement. An incision was made over the midportion of the graft and carried down through subcutaneous tissues to the graft itself. The graft was encircled proximally and distally. A graftotomy was performed. A 4 Alek catheter was passed distally with extrusion of thrombus. There was minimal return of blood flow. At that point a sheath was placed and a venogram was performed revealing significant outflow stenosis. Guidewires and catheters were used across the anastomosis and a 6 x 40 balloon angioplasty was performed. This appeared to improve the outflow significantly at this level. Attention was then turned towards inflow. A 3 and 4 Alek were passed. There is still no pulsatile blood flow therefore a wire was passed into the brachial artery fistulogram again was performed. There appeared to be narrowing of the anastomosis without evidence of flow through. A 4 x 20 balloon was utilized angioplasty the inflow. Upon this are was improvement with pulsatile flow through the graft. At that point catheters and wires were removed. Using 6-0 Prolene, the graftotomy was reapproximated. There was augmentation to the graft itself. The area was irrigated. The deep dermal tissues were reapproximated with interrupted sutures of 3-0 Vicryl. The skin was reapproximated running 4-0 Monocryl. Patient is transferred to recovery in stable condition and tolerated the procedure well. Plan - Discharge Summary Discharge Rx Participant: Yes New Discharge Prescriptions: No Action Ergocalciferol (Vitamin D2) [Vitamin D2] 50,000 unit PO Q14D Aspirin EC [Ecotrin Low Dose] 81 mg PO HS Isosorbide Mononitrate ER [Imdur] 60 mg PO BID #60 tab.er.24h DULoxetine HCL [Cymbalta] 20 mg PO HS Melatonin 5 mg PO HS Sennosides-Docusate Sodium [Senokot-S] 2 tab PO TID PRN PRN Reason: Constipation Nitroglycerin Sl Tabs [Nitrostat] 0.4 mg SL Q5M PRN PRN Reason: Chest Pain Gabapentin [Neurontin] 100 mg PO TID Furosemide [Lasix] 80 mg PO QAM Oxybutynin Chloride [Ditropan] 5 mg PO HS Insuln Asp Prt/Insulin Aspart [NovoLOG MIX 70-30 VIAL] 8 unit SQ AC-TID carvediloL [Coreg] 6.25 mg PO BID Cyanocobalamin [Vitamin B-12] 500 mcg PO DAILY rOPINIRole HCL [Requip] 0.5 mg PO TID Lidocaine-Prilocaine Cream [Emla Cream 2.5%/2.5%] 1 applic TOPICAL DIRECTED PRN PRN Reason: dialysis Clopidogrel [Plavix] 75 mg PO DAILY #30 tab Atorvastatin [Lipitor] 20 mg PO HS Ondansetron [Zofran] 4 mg PO DAILY PRN PRN Reason: Nausea And Vomiting Insulin Glargine [Lantus Vial] 35 unit SQ HS amLODIPine [Norvasc] 5 mg PO QAM Omeprazole 80 mg PO HS Nephro-Deepa 1 tab PO DAILY Lactulose [Constulose] 10 gm PO DAILY PRN PRN Reason: Constipation Discharge Medication List Ergocalciferol (Vitamin D2) [Vitamin D2] 50,000 unit PO Q14D 07/18/17 [History] Aspirin EC [Ecotrin Low Dose] 81 mg PO HS 02/10/18 [History] Isosorbide Mononitrate ER [Imdur] 60 mg PO BID #60 tab.er.24h 04/21/20 [Rx] DULoxetine HCL [Cymbalta] 20 mg PO HS 10/27/20 [History] Melatonin 5 mg PO HS 12/19/20 [History] Sennosides-Docusate Sodium [Senokot-S] 2 tab PO TID PRN 12/31/20 [History] Gabapentin [Neurontin] 100 mg PO TID 01/23/21 [History] Nitroglycerin Sl Tabs [Nitrostat] 0.4 mg SL Q5M PRN 01/23/21 [History] rOPINIRole HCL [Requip] 0.5 mg PO TID 01/23/21 [History] Furosemide [Lasix] 80 mg PO QAM 02/17/21 [History] Lidocaine-Prilocaine Cream [Emla Cream 2.5%/2.5%] 1 applic TOPICAL DIRECTED PRN 02/17/21 [History] Clopidogrel [Plavix] 75 mg PO DAILY #30 tab 04/12/21 [Rx] Atorvastatin [Lipitor] 20 mg PO HS 05/08/21 [History] Ondansetron [Zofran] 4 mg PO DAILY PRN 05/08/21 [History] Oxybutynin Chloride [Ditropan] 5 mg PO HS 06/28/21 [History] Insulin Glargine [Lantus Vial] 35 unit SQ HS 07/13/21 [History] Insuln Asp Prt/Insulin Aspart [NovoLOG MIX 70-30 VIAL] 8 unit SQ AC-TID 11/12/21 [History] Lactulose [Constulose] 10 gm PO DAILY PRN 11/12/21 [History] Nephro-Deepa 1 tab PO DAILY 11/12/21 [History] Omeprazole 80 mg PO HS 11/12/21 [History] amLODIPine [Norvasc] 5 mg PO QAM 11/12/21 [History] carvediloL [Coreg] 6.25 mg PO BID 11/22/21 [History] Cyanocobalamin [Vitamin B-12] 500 mcg PO DAILY 12/14/21 [History]
[2021-12-15 09:51] VITALS: BP 131/68; PULSE 95; RESP 16
--- NOTE | 2021-12-15 10:44 | FL ---
Fluoroscopy HISTORY: Dialysis graft malfunction 10 minutes 32 seconds fluoroscopy time supplied to the referring clinician. 6 intraoperative C-arm c ine runs, 1 intraoperativ image document the procedure. See dictated report from vascular surgery.
== END 2021-12-15 10:08 | disposition home or self-care (01) ==
LOC: OR 05:51
PROVIDERS: ATTEND Surgery
DX: T82.868A Thrombosis due to vascular prosthetic devices, implants and grafts, initial encounter (principal); I12.0 Hypertensive chronic kidney disease with stage 5 chronic kidney disease or end stage renal disease; E11.22 Type 2 diabetes mellitus with diabetic chronic kidney disease; N18.6 End stage renal disease; Z99.2 Dependence on renal dialysis; D64.9 Anemia, unspecified; E11.51 Type 2 diabetes mellitus with diabetic peripheral angiopathy without gangrene; J44.9 Chronic obstructive pulmonary disease, unspecified; I25.10 Atherosclerotic heart disease of native coronary artery without angina pectoris; I10 Essential (primary) hypertension; E78.5 Hyperlipidemia, unspecified; F17.210 Nicotine dependence, cigarettes, uncomplicated; G47.33 Obstructive sleep apnea (adult) (pediatric); I77.9 Disorder of arteries and arterioles, unspecified; K21.9 Gastro-esophageal reflux disease without esophagitis; G47.00 Insomnia, unspecified; R91.1 Solitary pulmonary nodule; G25.81 Restless legs syndrome; I25.2 Old myocardial infarction; R42 Dizziness and giddiness; Z90.49 Acquired absence of other specified parts of digestive tract; Z98.890 Other specified postprocedural states; Z80.9 Family history of malignant neoplasm, unspecified; Z95.5 Presence of coronary angioplasty implant and graft; Z82.49 Family history of ischemic heart disease and other diseases of the circulatory system; Z79.84 Long term (current) use of oral hypoglycemic drugs; Z79.82 Long term (current) use of aspirin; Z79.4 Long term (current) use of insulin; Z79.899 Other long term (current) drug therapy; Z79.02 Long term (current) use of antithrombotics/antiplatelets; Z91.041 Radiographic dye allergy status
CPT/HCPCS: 36831; 80053; 85027; 85610; C1757 ×2; J2250; J1200; J1644; J1100; J2930; J0690; J2405; J2001; J3010; Q9967

== ENCOUNTER 2021-12-25 10:26 | Inpatient (IN) | payer OTHER, MEDICARE ==
--- NOTE | 2021-12-25 11:51 | ED ---
General Adult HPI - General Chief complaint: Recheck/Abnormal Lab/Rx Stated complaint: Abn labs Time Seen by Provider: 12/25/21 10:51 Source: patient, family, RN notes reviewed Mode of arrival: ambulatory Limitations: no limitations - History of Present Illness Initial comments: Patient is a pleasant 71-year-old male presenting to the emergency department with concern regarding anemia. Patient does have history of chronic anemia and has port placed secondary to this. Patient has had dozens of previous blood transfusions. No active bleeding. No hematochezia or melena. Patient has been having fatigue, that does worsen with exertion. Patient may have minimal dyspnea with exertion. Patient was standing making breakfast today and did have a syncopal episode. No injury. No chest pain. No confusion or dyspnea or abdominal pain. Patient had a recent red blood cell count of 6.8 and was advised by dialysis to come to the emergency department. - Related Data Home Medications Medication Instructions Recorded Confirmed Ergocalciferol (Vitamin D2) 1,250 mcg PO Q14D 07/18/17 12/25/21 [Vitamin D2] Aspirin EC [Ecotrin Low Dose] 81 mg PO HS 02/10/18 12/25/21 DULoxetine HCL [Cymbalta] 20 mg PO HS 10/27/20 12/25/21 Melatonin 5 mg PO HS 12/19/20 12/25/21 Sennosides-Docusate Sodium 2 tab PO TID PRN 12/31/20 12/25/21 [Senokot-S] Gabapentin [Neurontin] 100 mg PO TID 01/23/21 12/25/21 Nitroglycerin Sl Tabs [Nitrostat] 0.4 mg SL Q5M PRN 01/23/21 12/25/21 rOPINIRole HCL [Requip] 0.5 mg PO TID 01/23/21 12/25/21 Furosemide [Lasix] 80 mg PO DAILY 02/17/21 12/25/21 Lidocaine-Prilocaine Cream [Emla 1 applic TOPICAL DIRECTED PRN 02/17/21 12/25/21 Cream 2.5%/2.5%] Atorvastatin [Lipitor] 20 mg PO HS 05/08/21 12/25/21 Ondansetron [Zofran] 4 mg PO DAILY PRN 05/08/21 12/25/21 Oxybutynin Chloride [Ditropan] 5 mg PO HS 06/28/21 12/25/21 Insulin Glargine [Lantus Vial] 35 unit SQ HS 07/13/21 12/25/21 Insuln Asp Prt/Insulin Aspart 8 unit SQ AC-TID 11/12/21 12/25/21 [NovoLOG MIX 70-30 VIAL] Lactulose [Constulose] 10 gm PO DAILY PRN 11/12/21 12/25/21 Nephro-Deepa 1 tab PO DAILY 11/12/21 12/25/21 Omeprazole 80 mg PO HS 11/12/21 12/25/21 amLODIPine [Norvasc] 5 mg PO DAILY 11/12/21 12/25/21 carvediloL [Coreg] 6.25 mg PO BID 11/22/21 12/25/21 Cyanocobalamin [Vitamin B-12] 500 mcg PO DAILY 12/14/21 12/25/21 Previous Rx's Medication Instructions Recorded Isosorbide Mononitrate ER [Imdur] 60 mg PO BID #60 tab.er.24h 04/21/20 Clopidogrel [Plavix] 75 mg PO DAILY #30 tab 04/12/21 Allergies Allergy/AdvReac Type Severity Reaction Status Date / Time Iodinated Contrast Media AdvReac CAN'T Verified 12/25/21 12:19 TAKE, RENAL DISEASE Iodine and Iodide Containing AdvReac CAN'T Verified 12/25/21 12:19 Produc TAKE, RENAL DISEASE Review of Systems ROS Statement: Those systems with pertinent positive or pertinent negative responses have been documented in the HPI. ROS Other: All systems not noted in ROS Statement are negative. Constitutional: Denies: fever Eyes: Denies: eye pain ENT: Denies: ear pain Respiratory: Denies: cough Cardiovascular: Denies: chest pain Endocrine: Reports: fatigue Gastrointestinal: Denies: abdominal pain, vomiting Genitourinary: Denies: dysuria Musculoskeletal: Denies: back pain Skin: Denies: rash Neurological: Denies: headache Past Medical History Past Medical History: Coronary Artery Disease (CAD), Chest Pain / Angina, COPD, Diabetes Mellitus, Dialysis, GERD/Reflux, GI Bleed, Hyperlipidemia, Hypertension, Pneumonia, Renal Disease, Vascular Disorder Additional Past Medical History / Comment(s): Per spouse "hemodialysis catheter plugged up on [address]." Spouse states "micro bleeds in intestine are gwen pected". Chronic renal disease stage IV- currently doing peritoneal dialysis four times day. Iron anemia with iron transfusions (recent R upper chest mediport for infusions). PVD. Lung nodules, chronic low back pain with bilateral sciatica, RLS, vertigo, insomnia, past agent orange exposure. Spouse denies hx CHF. Last Myocardial Infarction Date:: 03/2020 History of Any Multi-Drug Resistant Organisms: None Reported Past Surgical History: Cholecystectomy, Heart Catheterization With Stent Additional Past Surgical History / Comment(s): 03/25/20 R sublclavian mediport, R carotid stent done in [place], EGD/colonoscopy, endoscopic capsule, ORIF left wrist, aortagram, bilateral leg revascularizations/stents, left upper arm fistula, peritoneal dialysis catheter removal and insertion (11/23/21). Past Anesthesia/Blood Transfusion Reactions: No Reported Reaction Additional Past Anesthesia/Blood Transfusion Reaction / Comment(s): . Date of Last Stent Placement:: 03/2021 Past Psychological History: PTSD Smoking Status: Current every day smoker, Vaper Past Alcohol Use History: None Reported Past Drug Use History: Marijuana - Past Family History Father History Unknown: Yes Mother Family Medical History: Cancer Additional Family Medical History / Comment(s): . General Exam Limitations: no limitations General appearance: alert, in no apparent distress Head exam: Present: atraumatic, normocephalic Eye exam: Present: normal appearance, PERRL, EOMI Neck exam: Present: normal inspection. Absent: tenderness Respiratory exam: Present: normal lung sounds bilaterally Cardiovascular Exam: Present: regular rate, normal rhythm GI/Abdominal exam: Present: soft. Absent: tenderness, pulsatile mass Extremities exam: Present: normal inspection, full ROM Neurological exam: Present: alert, oriented X3, CN II-XII intact. Absent: motor sensory deficit Expanded Neurological exam: Present: protecting the airway Patient oriented to: Present: person, place, time Speech: Present: fluid speech Motor strength exam: RUE: 5, LUE: 5, RLE: 5, LLE: 5 Eye Response: (4) open spontaneously Motor Response: (6) obeys commands Verbal Response: (5) oriented Psychiatric exam: Present: normal affect, normal mood Skin exam: Present: normal color Course Vital Signs 12/25/21 10:40 Temperature 98.1 F Pulse Rate 71 Respiratory 16 Rate Blood Pressure 130/51 O2 Sat by Pulse 100 Oximetry EKG Findings - EKG Comments: EKG Findings:: Sinus rhythm with a rate of 68. [place] 183. QRS 103. QT 449. QTC 467. Left axis. Inferior Q waves. Nonspecific T waves. Medical Decision Making - Medical Decision Making Patient reevaluated. Patient and family updated. Case discussed with Dr. Gillespie, who will admit covering the patient. Patient will need blood trans fusion. - Lab Data Result diagrams: 12/25/21 11:50 12/25/21 11:50 Lab Results 12/25/21 12/25/21 12/25/21 Range/Units 11:50 11:50 11:50 WBC 9.7 (3.8-10.6) k/uL RBC 2.52 L (4.30-5.90) m/uL Hgb 5.8 L* (13.0-17.5) gm/dL Hct 20.6 L (39.0-53.0) % MCV 81.8 (80.0-100.0) fL MCH 22.9 L (25.0-35.0) pg MCHC 28.0 L (31.0-37.0) g/dL RDW 18.1 H (11.5-15.5) % Plt Count 420 (150-450) k/uL MPV 8.0 Neutrophils % 85 % Lymphocytes % 7 % Monocytes % 5 % Eosinophils % 1 % Basophils % 0 % Neutrophils # 8.2 H (1.3-7.7) k/uL Lymphocytes # 0.7 L (1.0-4.8) k/uL Monocytes # 0.5 (0-1.0) k/uL Eosinophils # 0.1 (0-0.7) k/uL Basophils # 0.0 (0-0.2) k/uL Hypochromasia Marked Anisocytosis Slight Microcytosis Slight PT 10.5 (9.0-12.0) sec INR 1.0 (<1.2) APTT 46.4 H (22.0-30.0) sec Sodium 131 L (137-145) mmol/L Potassium 3.5 (3.5-5.1) mmol/L Chloride 97 L (98-107) mmol/L Carbon Dioxide 24 (22-30) mmol/L Anion Gap 10 mmol/L BUN 59 H (9-20) mg/dL Creatinine 4.92 H (0.66-1.25) mg/dL Est GFR (CKD-EPI)AfAm 13 (>60 ml/min/1.73 sqM) Est GFR (CKD-EPI)NonAf 11 (>60 ml/min/1.73 sqM) Glucose 471 H (74-99) mg/dL Calcium 7.5 L (8.4-10.2) mg/dL Total Bilirubin 0.3 (0.2-1.3) mg/dL AST 19 (17-59) U/L ALT 13 (4-49) U/L Alkaline Phosphatase 124 (38-126) U/L Troponin I (0.000-0.034) ng/mL Total Protein 5.4 L (6.3-8.2) g/dL Albumin 2.8 L (3.5-5.0) g/dL Blood Type Blood Type Recheck Bld Type Recheck Status Antibody Screen Spec Expiration Date 12/25/21 12/25/21 Range/Units 11:50 11:55 WBC (3.8-10.6) k/uL RBC (4.30-5.90) m/uL Hgb (13.0-17.5) gm/dL Hct (39.0-53.0) % MCV (80.0-100.0) fL MCH (25.0-35.0) pg MCHC (31.0-37.0) g/dL RDW (11.5-15.5) % Plt Count (150-450) k/uL MPV Neutrophils % % Lymphocytes % % Monocytes % % Eosinophils % % Basophils % % Neutrophils # (1.3-7.7) k/uL Lymphocytes # (1.0-4.8) k/uL Monocytes # (0-1.0) k/uL Eosinophils # (0-0.7) k/uL Basophils # (0-0.2) k/uL Hypochromasia Anisocytosis Microcytosis PT (9.0-12.0) sec INR (<1.2) APTT (22.0-30.0) sec Sodium (137-145) mmol/L Potassium (3.5-5.1) mmol/L Chloride (98-107) mmol/L Carbon Dioxide (22-30) mmol/L Anion Gap mmol/L BUN (9-20) mg/dL Creatinine (0.66-1.25) mg/dL Est GFR (CKD-EPI)AfAm (>60 ml/min/1.73 sqM) Est GFR (CKD-EPI)NonAf (>60 ml/min/1.73 sqM) Glucose (74-99) mg/dL Calcium (8.4-10.2) mg/dL Total Bilirubin (0.2-1.3) mg/dL AST (17-59) U/L ALT (4-49) U/L Alkaline Phosphatase (38-126) U/L Troponin I <0.012 (0.000-0.034) ng/mL Total Protein (6.3-8.2) g/dL Albumin (3.5-5.0) g/dL Blood Type B Positive Blood Type Recheck B Pos Bld Type Recheck Status No Antibody Screen NEGATIVE Spec Expiration Date 12/28/2021 - 353 - Radiology Data Radiology results: image reviewed (Chest x-ray does show cardiomegaly with small right effusion and associated atelectasis or infiltrate redemonstrated, no change from prior.) Disposition Clinical Impression: Symptomatic anemia, Syncope Disposition: ADMITTED IP TO THIS HOSP Is patient prescribed a controlled substance at d/c from ED?: No Referrals: [facility] [Primary Care Provider] - 1-2 days Time of Disposition: 13:09
[2021-12-25 12:10] LABS: Anisocytosis Slight; Basophils % (A) 0 %; Eosinophils # (A) 0.1 k/uL (0-0.7); Eosinophils % (A) 1 %; HCT 20.6 % (39.0-53.0); Hypochromasia Marked; Lymphocytes # (A) 0.7 k/uL (1.0-4.8); Lymphocytes % (A) 7 %; MCH 22.9 pg (25.0-35.0); MCV 81.8 fL (80.0-100.0); Microcytosis Slight; Monocytes # (A) 0.5 k/uL (0-1.0); Monocytes % (A) 5 %; Neutrophils # (A) 8.2 k/uL (1.3-7.7); Neutrophils % (A) 85 %; Platelet Count 420 k/uL (150-450); RBC 2.52 m/uL (4.30-5.90); RDW 18.1 % (11.5-15.5); WBC 9.7 k/uL (3.8-10.6)
[2021-12-25 12:16] LABS: Partial Thromboplastin Time 46.4 sec (22.0-30.0); Prothrombin Time 10.5 sec (9.0-12.0)
[2021-12-25 12:17] LABS: HGB 5.8 gm/dL (13.0-17.5)
--- NOTE | 2021-12-25 12:22 | XR ---
EXAMINATION TYPE: XR chest 2V DATE OF EXAM: 12/25/2021 COMPARISON: Chest x-ray November 12, 2021 HISTORY: Syncope and weakness. TECHNIQUE: Frontal and lateral views of the chest are obtained. FINDINGS: There is right internal jugular Mediport catheter redemonstrated. There is small right ple ural effusion with right basilar opacity redemonstrated. Left lung remains clear. The cardiac silhou ette size is mildly enlarged with atherosclerotic aortic knob. The osseous structures are intact. C holecystectomy clips are redemonstrated. IMPRESSION: Cardiomegaly with small right pleural effusion and associated right basilar atelectasis a nd/or infiltrate redemonstrated. No significant change from most recent prior.
[2021-12-25 12:23] LABS: Albumin 2.8 g/dL (3.5-5.0); Calcium 7.5 mg/dL (8.4-10.2); Potassium 3.5 mmol/L (3.5-5.1); Total Bilirubin 0.3 mg/dL (0.2-1.3); Total Protein 5.4 g/dL (6.3-8.2)
[2021-12-25] MEDS ORDERED: ONDANSETRON 4 MG/2 ML VIAL IVP PRN (12:55)
[2021-12-25] MEDS ORDERED: ACETAMINOPHEN TAB 325 MG TAB PO PRN (12:55)
[2021-12-25] MEDS ORDERED: DOCUSATE 100 MG CAP PO PRN (12:55)
[2021-12-25] MEDS ORDERED: NALOXONE 0.4 MG/ML 1 ML VIAL IV PRN (12:55)
[2021-12-25] MEDS ORDERED: MAG HYDROX/AL HYDROX/SIMETH 30 ML CUP PO PRN (12:55)
--- NOTE | 2021-12-25 14:33 | P.HPIM ---
History of Present Illness H&P Date: 12/25/21 Chief Complaint: Syncope Patient is a 71-year-old male with PMH of CAD on aspirin and Plavix, COPD, diabetes mellitus, ESRD on peritoneal dialysis, hypertension, dyslipidemia, GERD presents the ED for generalized weakness and syncopal episode. Patient reports attempting to stand up from a seated position this morning when he started to feel lightheaded and had a syncopal episode. There was noone to witness the syncopal episode. He denies any auras, chest pain or shortness of breath prior to passing out. He denies any bladder or bowel incontinence. He denies any postictal confusion. He reports generalized weakness and lightheadedness that is usually positional that has been ongoing for the past 3 weeks. He denies any hematochezia, blood in his stool or melena. Patient reports undergoing colonoscopy 5 months ago that was within normal limits. He denies any headache, lower extremity edema, nausea or vomiting, fever or chills, cough, palpitations, changes in urination or bowel habits. No changes in appetite or weight. He denies any numbness/weakness/tingling of the extremities. The ED, his vital signs are stable. CBC showed hemoglobin of 5.8 MCV of 81.8. INR was 1. CMP showed sodium of 131, chloride of 97, BUN of 59, creatinine of 4.92, glucose of 471, calcium is 7.5. Patient is admitted under observation status for symptomatic anemia and blood transfusion. Review of systems was performed and is negative except above. General: [non toxic], [no distress], [appears at stated age] Derm: [warm], [dry] Head: [atraumatic], [normocephalic], [symmetric] Eyes: [EOMI], [no lid lag], [pale sclera] Mouth: [no lip lesion], [mucus membranes moist] Cardiovascular: [S1S2 reg], [systolic murmur] Lungs: [CTA bilateral], [no rhonchi, no rales] , [no accessory muscle use] Abdominal: [soft], [ nontender to palpation], [no guarding], [no appreciable organomegaly] Ext: [no gross muscle atrophy], [no edema], [no contractures] Neuro: [ CN II-XI grossly intact], [no focal neuro deficits] Psych: [Alert], [oriented], [appropriate affect] #Symptomatic anemia #Syncopal episode #Diabetes mellitus with hyperglycemia #ESRD on peritoneal dialysis daily #Hyponatremia #Hypocalcemia Chronic conditions: CAD, COPD, hypertension, dyslipidemia, GERD Patient presents a hemoglobin of 5.8 MCV 81.8 with no active signs of bleeding. This is likely anemia of chronic disease from ESRD. He'll be transfused 2 units PRBC. Telemetry monitoring will be ordered. Ferritin and iron studies will be ordered along with B12 and folate. Stool for occult blood will be ordered. His syncopal episode is likely related to his low hemoglobin. Troponins will be trended and ACS will be ruled out. Given his systolic murmur, Echocardiogram will be ordered. Patient will be restarted on Levemir 35 units at bedtime. Insulin sliding scale will be ordered along with accuchecks four times a day and hypoglycemic precautions. Nephrology will be consulted to resume peritoneal dialysis daily. His hyponatremia is within normal limits when corrected for hyperglycemia. His hypocalcemia is within normal limits when taking his albumin into consideration. Holding aspirin and Plavix until hemoglobin better. Restart Amlodipine, Lasix, Imdur and Coreg for hypertension. Restart omeprazole for GERD. Ropinirole for RLS. DVT prophylaxis: [SCDs] Discussed with: [Patient] Anticipated discharge: [1-2 days] Anticipated discharge place: [Home] A total of [45] minutes was spent on the care of this complex patient more than 50% of the time was spent in counseling and care coordination. Patient names his decision maker if he cant make decisions for himself. Patient would like to be FULL CODE. Past Medical History Past Medical History: Coronary Artery Disease (CAD), Chest Pain / Angina, COPD, Diabetes Mellitus, Dialysis, GERD/Reflux, GI Bleed, Hyperlipidemia, Hypertension, Pneumonia, Renal Disease, Vascular Disorder Additional Past Medical History / Comment(s): Per spouse "hemodialysis catheter plugged up on December 04." Spouse states "micro bleeds in intestine are suspected". Chronic renal disease stage IV- currently doing peritoneal dialysis four times day. Iron anemia with iron transfusions (recent R upper chest mediport for infusions). PVD. Lung nodules, chronic low back pain with bilateral sciatica, RLS, vertigo, insomnia, past agent orange exposure. Spouse denies hx CHF. Last Myocardial Infarction Date:: 03/2020 History of Any Multi-Drug Resistant Organisms: None Reported Past Surgical History: Cholecystectomy, Heart Catheterization With Stent Additional Past Surgical History / Comment(s): 03/25/20 R sublclavian mediport, R carotid stent done in [place], EGD/colonoscopy, endoscopic capsule, ORIF left wrist, aortagram, bilateral leg revascularizations/stents, left upper arm fistula, peritoneal dialysis catheter removal and insertion (11/23/21). Past Anesthesia/Blood Transfusion Reactions: No Reported Reaction Additional Past Anesthesia/Blood Transfusion Reaction / Comment(s): . Date of Last Stent Placement:: 03/2021 Past Psychological History: PTSD Smoking Status: Current every day smoker, Vaper Past Alcohol Use History: None Reported Past Drug Use History: Marijuana - Past Family History Father History Unknown: Yes Mother Family Medical History: Cancer Additional Family Medical History / Comment(s): . Medications and Allergies Home Medications Medication Instructions Recorded Confirmed Type Ergocalciferol (Vitamin D2) 1,250 mcg PO Q14D 07/18/17 12/25/21 History [Vitamin D2] Aspirin EC [Ecotrin Low Dose] 81 mg PO HS 02/10/18 12/25/21 History Isosorbide Mononitrate ER [Imdur] 60 mg PO BID #60 tab.er.24h 04/21/20 12/25/21 Rx DULoxetine HCL [Cymbalta] 20 mg PO HS 10/27/20 12/25/21 History Melatonin 5 mg PO HS 12/19/20 12/25/21 History Sennosides-Docusate Sodium 2 tab PO TID PRN 12/31/20 12/25/21 History [Senokot-S] Gabapentin [Neurontin] 100 mg PO TID 01/23/21 12/25/21 History Nitroglycerin Sl Tabs [Nitrostat] 0.4 mg SL Q5M PRN 01/23/21 12/25/21 History rOPINIRole HCL [Requip] 0.5 mg PO TID 01/23/21 12/25/21 History Furosemide [Lasix] 80 mg PO DAILY 02/17/21 12/25/21 History Lidocaine-Prilocaine Cream [Emla 1 applic TOPICAL DIRECTED PRN 02/17/21 12/25/21 History Cream 2.5%/2.5%] Clopidogrel [Plavix] 75 mg PO DAILY #30 tab 04/12/21 12/25/21 Rx Atorvastatin [Lipitor] 20 mg PO HS 05/08/21 12/25/21 History Ondansetron [Zofran] 4 mg PO DAILY PRN 05/08/21 12/25/21 History Oxybutynin Chloride [Ditropan] 5 mg PO HS 06/28/21 12/25/21 History Insulin Glargine [Lantus Vial] 35 unit SQ HS 07/13/21 12/25/21 History Insuln Asp Prt/Insulin Aspart 8 unit SQ AC-TID 11/12/21 12/25/21 History [NovoLOG MIX 70-30 VIAL] Lactulose [Constulose] 10 gm PO DAILY PRN 11/12/21 12/25/21 History Nephro-Deepa 1 tab PO DAILY 11/12/21 12/25/21 History Omeprazole 80 mg PO HS 11/12/21 12/25/21 History amLODIPine [Norvasc] 5 mg PO DAILY 11/12/21 12/25/21 History carvediloL [Coreg] 6.25 mg PO BID 11/22/21 12/25/21 History Cyanocobalamin [Vitamin B-12] 500 mcg PO DAILY 12/14/21 12/25/21 History Allergies Allergy/AdvReac Type Severity Reaction Status Date / Time Iodinated Contrast Media AdvReac CAN'T Verified 12/25/21 12:19 TAKE, RENAL DISEASE Iodine and Iodide Containing AdvReac CAN'T Verified 12/25/21 12:19 Produc TAKE, RENAL DISEASE Physical Exam Vitals: Vital Signs Temp Pulse Resp BP Pulse Ox 12/25/21 13:37 97.8 F 66 18 141/59 12/25/21 10:40 98.1 F 71 16 130/51 100 Intake and Output 12/24/21 12/25/21 12/25/21 22:59 06:59 14:59 Intake Total 0 Balance 0 Intake: Blood Product 0 Rc As-1 Unit 0 [id number] Other: Weight 81.647 kg Results CBC & Chem 7: 12/25/21 11:50 12/25/21 11:50 Labs: Abnormal Lab Results - Last 24 Hours (Table) 0512/25/21 12/25/21 Range/Units 11:50 11:50 11:50 RBC 2.52 L (4.30-5.90) m/uL Hgb 5.8 L* (13.0-17.5) gm/dL Hct 20.6 L (39.0-53.0) % MCH 22.9 L (25.0-35.0) pg MCHC 28.0 L (31.0-37.0) g/dL RDW 18.1 H (11.5-15.5) % Neutrophils # 8.2 H (1.3-7.7) k/uL Lymphocytes # 0.7 L (1.0-4.8) k/uL APTT 46.4 H (22.0-30.0) sec Sodium 131 L (137-145) mmol/L Chloride 97 L (98-107) mmol/L BUN 59 H (9-20) mg/dL Creatinine 4.92 H (0.66-1.25) mg/dL Glucose 471 H (74-99) mg/dL Calcium 7.5 L (8.4-10.2) mg/dL Total Protein 5.4 L (6.3-8.2) g/dL Albumin 2.8 L (3.5-5.0) g/dL Crossmatch 12/25/21 Range/Units 11:55 RBC (4.30-5.90) m/uL Hgb (13.0-17.5) gm/dL Hct (39.0-53.0) % MCH (25.0-35.0) pg MCHC (31.0-37.0) g/dL RDW (11.5-15.5) % Neutrophils # (1.3-7.7) k/uL Lymphocytes # (1.0-4.8) k/uL APTT (22.0-30.0) sec Sodium (137-145) mmol/L Chloride (98-107) mmol/L BUN (9-20) mg/dL Creatinine (0.66-1.25) mg/dL Glucose (74-99) mg/dL Calcium (8.4-10.2) mg/dL Total Protein (6.3-8.2) g/dL Albumin (3.5-5.0) g/dL Crossmatch See Detail
[2021-12-25] MEDS: GABAPENTIN 100 MG CAP PO SCH ×2 (16:01→20:57)
[2021-12-25 17:17] LABS: Glucose,Whole Blood 357 mg/dL (75-99)
[2021-12-25] MEDS: DIALYSIS (PERIT 1.5%) 2,000 ML 30 G/2,000 ML BAG INTRAPERIT SCH (17:22)
[2021-12-25] MEDS: INSULIN ASPART (NovoLOG) 100 UNIT/ML VIAL SQ SCH (18:08)
[2021-12-25 18:35] LABS: Appearance,Urine Clear (Clear); Bilirubin,Urine Negative (Negative); Blood,Urine Negative (Negative); Color,Urine Yellow; Glucose,Urine (UA) 4+ (Negative); Hyaline Casts,Urine 1 /lpf (0-2); Ketones,Urine Negative (Negative); Leukocyte Esterase,Urine Negative (Negative); Mucus,Urine Rare /hpf; Nitrite,Urine Negative (Negative); PH, Urine 5.5 (5.0-8.0); Protein,Urine 2+ (Negative); RBC,Urine 1 /hpf (0-5); Urobilinogen,Urine <2.0 mg/dL (<2.0); WBC,Urine 1 /hpf (0-5)
[2021-12-25] MEDS: ISOSORBIDE MONONITRATE ER 60 MG TAB.ER.24H PO SCH (20:56)
[2021-12-25] MEDS: carvediloL 6.25 MG TAB PO SCH (20:56)
[2021-12-25] MEDS ORDERED: PANTOPRAZOLE 40 MG TABLET PO SCH (21:00)
[2021-12-25] MEDS ORDERED: OXYBUTYNIN CHLORIDE 5 MG TAB PO SCH (21:00)
[2021-12-25] MEDS ORDERED: ATORVASTATIN 20 MG TAB PO SCH (21:00)
[2021-12-25] MEDS ORDERED: DULoxetine HCL 20 MG CAPSULE.DR PO SCH (21:00)
[2021-12-25] MEDS ORDERED: INSULIN DETEMIR (LEVEMIR) 100 UNIT/ML SYR SQ SCH (21:00)
[2021-12-25 21:01] LABS: Glucose,Whole Blood 291 mg/dL (75-99)
[2021-12-26] MEDS: DIALYSIS (PERIT 1.5%) 2,000 ML 30 G/2,000 ML BAG INTRAPERIT SCH ×2 (00:52→05:54)
[2021-12-26 01:26] LABS: Glucose,Whole Blood 182 mg/dL (75-99)
[2021-12-26 07:00] LABS: Glucose,Whole Blood 51 mg/dL (75-99)
[2021-12-26] MEDS: INSULIN ASPART (NovoLOG) 100 UNIT/ML VIAL SQ SCH ×2 (07:03→12:23)
[2021-12-26 07:35] LABS: Glucose,Whole Blood 85 mg/dL (75-99)
[2021-12-26 08:18] VITALS: RESP 14
--- NOTE | 2021-12-26 08:41 | P.NPCON ---
History of Present Illness - Reason for Consult end stage renal disease - History of Present Illness Reason for consultation: End-stage renal disease History of present illness: Patient is a 71-year-old male seen in consultation for end-stage renal disease. He is maintained on peritoneal dialysis. Patient denies any problems with PD exchanges. He denies constipation. No abdominal pain. Patient had blood work an outpatient and was noted to have a low hemoglobin and was advised to go to the hospital. Hemoglobin on admission was 5.8 and he did receive 2 units of blood. Morning labs are pending. Hemodynamically stable. No fever or chills. Denies chest pain or shortness of breath. No edema. Patient has history of coronary disease with cardiac stenting. Echocardiogram from March 2021 showed ejection fraction of 45-50% and mild to moderate aortic regurgitation and mitral stenosis. Repeat echocardiogram is pending. Patient denies any active bleeding. No melena or hematochezia. No hematuria. Vital signs are stable. General: Awake and alert. No acute distress. HEENT: Head exam is unremarkable. LUNGS: Breath sounds decreased. HEART: Rate and Rhythm are regular. ABDOMEN: Soft, no distention. EXTREMITITES: No edema. Past Medical History Past Medical History: Coronary Artery Disease (CAD), Chest Pain / Angina, Heart Failure, COPD, Diabetes Mellitus, Dialysis, GERD/Reflux, GI Bleed, Hyperlipidemia, Hypertension, Myocardial Infarction ([place]), Pneumonia, Renal Disease, Vascular Disorder Additional Past Medical History / Comment(s): Lower GI bleeds/suspect micro bleeds in intestine, occasional abdominal bloating, IDDM type II, neuropathy bilateral feet, ESRD with peritoneal dialysis ((cycler at night for 5 hours), past hemodialysis/spouse states she was told L upper arm fistula is plugged again, chronic anemia/transfusion of blood/iron, past partial SBO, benign colon polyps, chronic low back pain with bilateral sciatica, PVD, RLS, vertigo, insomnia, 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 Last Myocardial Infarction Date:: 03/2020 History of Any Multi-Drug Resistant Organisms: None Reported Past Surgical History: Cholecystectomy, Heart Catheterization With Stent Additional Past Surgical History / Comment(s): 03/25/20 R sublclavian mediport, R carotid stent done in [place], EGD/colonoscopy, endoscopic capsule, ORIF left wrist, aortagram, bilateral leg revascularizations/stents, left upper arm fistula and on 12/15/21 had thrombectomy balloon angioplasty of L arm fistula, peritoneal dialysis catheter removal and insertion (11/23/21). Past Anesthesia/Blood Transfusion Reactions: No Reported Reaction Additional Past Anesthesia/Blood Transfusion Reaction / Comment(s): Pt has had multiple blood transfusions without reaction. Date of Last Stent Placement:: 03/2021 Smoking Status: Current every day smoker - Past Family History Father History Unknown: Yes Mother Family Medical History: Cancer Additional Family Medical History / Comment(s): Metastatic cancer Medications and Allergies Home Medications Medication Instructions Recorded Confirmed Type Ergocalciferol (Vitamin D2) 1,250 mcg PO Q14D 07/18/17 12/25/21 History [Vitamin D2] Aspirin EC [Ecotrin Low Dose] 81 mg PO HS 02/10/18 12/25/21 History Isosorbide Mononitrate ER [Imdur] 60 mg PO BID #60 tab.er.24h 04/21/20 12/25/21 Rx DULoxetine HCL [Cymbalta] 20 mg PO HS 10/27/20 12/25/21 History Melatonin 5 mg PO HS 12/19/20 12/25/21 History Sennosides-Docusate Sodium 2 tab PO TID PRN 12/31/20 12/25/21 History [Senokot-S] Gabapentin [Neurontin] 100 mg PO TID 01/23/21 12/25/21 History Nitroglycerin Sl Tabs [Nitrostat] 0.4 mg SL Q5M PRN 01/23/21 12/25/21 History rOPINIRole HCL [Requip] 0.5 mg PO TID 01/23/21 12/25/21 History Furosemide [Lasix] 80 mg PO DAILY 02/17/21 12/25/21 History Lidocaine-Prilocaine Cream [Emla 1 applic TOPICAL DIRECTED PRN 02/17/21 12/25/21 History Cream 2.5%/2.5%] Clopidogrel [Plavix] 75 mg PO DAILY #30 tab 04/12/21 12/25/21 Rx Atorvastatin [Lipitor] 20 mg PO HS 05/08/21 12/25/21 History Ondansetron [Zofran] 4 mg PO DAILY PRN 05/08/21 12/25/21 History Oxybutynin Chloride [Ditropan] 5 mg PO HS 06/28/21 12/25/21 History Insulin Glargine [Lantus Vial] 35 unit SQ HS 07/13/21 12/25/21 History Insuln Asp Prt/Insulin Aspart 8 unit SQ AC-TID 11/12/21 12/25/21 History [NovoLOG MIX 70-30 VIAL] Lactulose [Constulose] 10 gm PO DAILY PRN 11/12/21 12/25/21 History Nephro-Deepa 1 tab PO DAILY 11/12/21 12/25/21 History Omeprazole 80 mg PO HS 11/12/21 12/25/21 History amLODIPine [Norvasc] 5 mg PO DAILY 11/12/21 12/25/21 History carvediloL [Coreg] 6.25 mg PO BID 11/22/21 12/25/21 History Cyanocobalamin [Vitamin B-12] 500 mcg PO DAILY 12/14/21 12/25/21 History Allergies Allergy/AdvReac Type Severity Reaction Status Date / Time Iodinated Contrast Media AdvReac CAN'T Verified 12/25/21 12:19 TAKE, RENAL DISEASE Iodine and Iodide Containing AdvReac CAN'T Verified 12/25/21 12:19 Produc TAKE, RENAL DISEASE Physical Exam Vitals: Vital Signs Temp Pulse Pulse Resp BP BP Pulse Ox 12/26/21 07:00 97.4 F L 69 14 176/76 96 12/26/21 02:06 98.2 F 68 17 140/68 97 12/26/21 01:37 66 18 12/25/21 21:10 98 F 67 18 138/75 98 12/25/21 20:55 98 F 66 18 136/79 98 12/25/21 20:00 18 12/25/21 18:55 98.2 F 87 18 136/79 94 L 12/25/21 17:55 98.0 F 62 14 149/61 12/25/21 17:25 98.0 F 58 L 16 142/56 12/25/21 17:23 97.6 F 60 14 142/56 98 12/25/21 17:15 97.6 F 57 L 14 149/60 12/25/21 17:00 14 12/25/21 16:52 97.6 F 55 L 18 152/66 98 12/25/21 15:28 97.4 F L 64 17 138/49 98 12/25/21 14:55 98.0 F 61 20 135/60 97 12/25/21 14:17 97.9 F 65 18 127/57 97 12/25/21 13:47 97.8 F 69 18 133/62 98 12/25/21 13:37 97.8 F 66 18 141/59 12/25/21 13:30 64 16 134/62 99 12/25/21 12:30 68 16 125/58 99 12/25/21 12:00 64 16 124/55 99 12/25/21 10:40 98.1 F 71 16 130/51 100 Intake and Output 12/25/21 12/26/21 12/26/21 22:59 06:59 14:59 Intake Total 855 Balance 855 Intake: Blood Product 855 Rc As-1 Unit 310 [id number] Rc Pheresis 2 As3 Unit 274 [id number] Other: # Voids 1 2 Weight 81.647 kg Results - Lab Results Most recent lab results Calcium 7.5 mg/dL (8.4-10.2) L 12/25/21 11:50 12/25/21 11:50 12/25/21 11:50 Assessment and Plan Plan: Assessment: 1. End-stage renal disease maintained on peritoneal dialysis. 2. Acute GI bleed status post blood transfusion. No active bleeding. 3. Coronary artery disease status post cardiac stenting. 4. Hypertension with chronic any disease. 5. Diabetes mellitus. Plan: Change PD exchanges to 2 L every 6 hours for 2.5% dextrose solution. Maintain oral Lasix. Check phosphorus level. Add Aranesp. Monitor hemoglobin and transfuse as needed. Surgery/GI consult. Thank you for the consultation. I will continue to follow the patient with you during his hospital stay.
[2021-12-26] MEDS ORDERED: DARBEPOETIN ALFA 40 MCG/0.4 ML SYRINGE SQ SCH (09:00)
[2021-12-26] MEDS ORDERED: FUROSEMIDE 40 MG TAB PO SCH (09:00)
[2021-12-26] MEDS ORDERED: amLODIPine 5 MG TAB PO SCH (09:00)
[2021-12-26] MEDS ORDERED: CYANOCOBALAMIN 500 MCG TAB PO SCH (09:00)
[2021-12-26] MEDS: carvediloL 6.25 MG TAB PO SCH (09:02)
[2021-12-26] MEDS: ISOSORBIDE MONONITRATE ER 60 MG TAB.ER.24H PO SCH (09:03)
[2021-12-26] MEDS: GABAPENTIN 100 MG CAP PO SCH (09:03)
[2021-12-26 09:36] LABS: Basophils # (A) 0.03 X 10*3/uL (0.00-0.10); Basophils % (A) 0.3 %; Eosinophils # (A) 0.13 X 10*3/uL (0.04-0.35); Eosinophils % (A) 1.5 %; HCT 30.9 % (39.6-50.0); HGB 9.2 g/dL (13.0-17.0); Immature Grans, Automated 0.3 %; Lymphocytes # (A) 0.74 X 10*3/uL (0.90-5.00); Lymphocytes % (A) 8.6 %; MCH 24.3 pg (27.0-32.0); MCHC 29.8 g/dL (32.0-37.0); MCV 81.7 fL (80.0-97.0); Mean Platelet Volume 10.4 fL (9.5-12.2); Monocytes # (A) 0.74 X 10*3/uL (0.20-1.00); Monocytes % (A) 8.6 %; NRBC Per 100 WBC 0 /100 WBCS (0.0-0.0); Neutrophils # (A) 6.91 X 10*3/uL (1.80-7.70); Neutrophils % (A) 80.7 %; Platelet Count 403 X 10*3/uL (140-440); RBC 3.78 X 10*6/uL (4.40-5.60); RDW 18.1 % (11.5-14.5); WBC 8.58 X 10*3/uL (4.50-10.00)
[2021-12-26 10:05] LABS: % Iron Saturation 7.53 (15.00-50.00)
[2021-12-26 10:42] LABS: African American GFR (CKD) 12.4 (60.0-200.0); Anion Gap 13.7 mmol/L (10.00-18.00); BUN/Creat Ratio 10.6 Ratio (12.00-20.00); Calcium 8.5 mg/dL (8.7-10.3); Carbon Dioxide 26.3 mmol/L (20.0-27.5); Non-African American GFR(CKD) 10.7 (60.0-200.0); Potassium 3.2 mmol/L (3.5-5.5)
--- NOTE | 2021-12-26 10:48 | CA ---
Transthoracic Echo Report Name: Jack Egan Age: 71 Gender: M : 1950 Exam Date: 12/26/2021 08:17 Exam Location: [facility] Ht (in): 67 Wt (lb): 180 Ordering Physician: Rafa Sanchez MD Attending/Referring Phys: Oven Dumper Crystal Farrell RDCS Procedure CPT: Indications: systolic murmur Cardiac Hx: Hx of [place]ENT[place], [place], HTN, and CHOL. Technical Quality: Good Contrast 1: Total Dose (mL): Contrast 2: Total Dose (mL): MEASUREMENTS (Male / Female) Normal Values 2D ECHO LV Diastolic Diameter PLAX 4.2 cm 4.2 - 5.9 / 3.9 - 5.3 cm LV Systolic Diameter PLAX 3.1 cm IVS Diastolic Thickness 1.3 cm 0.6 - 1.0 / 0.6 - 0.9 cm LVPW Diastolic Thickness 1.0 cm 0.6 - 1.0 / 0.6 - 0.9 cm LV Relative Wall Thickness 0.6 LVOT Diameter 1.3 cm M-MODE Aortic Root Diameter MM 3.8 cm LA Systolic Diameter MM 3.6 cm LA Ao Ratio MM 0.9 MV E Point Septal Separation 3.2 cm AV Cusp Separation MM 1.5 cm DOPPLER AV Peak Velocity 214.4 cm/s AV Peak Gradient 18.4 mmHg AV Mean Velocity 151.8 cm/s AV Mean Gradient 10.7 mmHg AV Velocity Time Integral 46.2 cm AI Peak Velocity 215.6 cm/s AI Peak Gradient 18.6 mmHg AI Pressure Half Time 925.2 ms LVOT Peak Velocity 77.1 cm/s LVOT Peak Gradient 2.4 mmHg AV Area Cont Eq pk 0.5 cm??? MV Peak Velocity 127.9 cm/s MV Peak Gradient 6.5 mmHg MV Mean Velocity 69.7 cm/s MV Mean Gradient 2.3 mmHg MV Velocity Time Integral 61.1 cm MV Area PHT 1.3 cm??? MR Peak Velocity 181.9 cm/s MR Peak Gradient 13.2 mmHg Mitral E Point Velocity 114.5 cm/s Mitral A Point Velocity 101.8 cm/s Mitral E to A Ratio 1.1 MV Deceleration Time 604.9 ms MV E' Velocity 5.8 cm/s Mitral E to MV E' Ratio 19.6 TR Peak Velocity 119.8 cm/s TR Peak Gradient 5.7 mmHg Right Ventricular Systolic Press 10.7 mmHg FINDINGS Left Ventricle Mildly increased septal wall thickness. Left ventricular ejection fraction is estimated at 45-50%. Mid to Basal inferolateral is hypokinetic. Right Ventricle Normal right ventricular size and function. Right ventricular systolic pressure within normal limits. Right Atrium Normal right atrial size. Left Atrium Normal left atrial size. Mitral Valve Mitral annular calcification. Moderate mitral stenosis. Mild mitral regurgitation. Possible mobile vegetation seen on the anterior mitral valve leaflet.mild thickening/calcification of the anterior mitral valve leaflet. Severe thickening/calcification of the posterior mitral valve leaflet. Aortic Valve Mild aortic stenosis with a peak gradient of 18 mmHg and a mean gradient of 10 mmHg. Mild aortic regurgitation. Trileaflet aortic valve. Diffuse thickening of the aortic valve cusps with reduced excursion. Tricuspid Valve Structurally normal tricuspid valve. Mild tricuspid regurgitation. Pulmonic Valve Structurally normal pulmonic valve. Pericardium No pericardial effusion. Aorta Aortic root and proximal ascending aorta not well visualized. CONCLUSIONS Mild LV systolic dysfunction Hypokinesis of the basal inferior wall Mitral annular calcification and thickening of the mitral valve leaflets with moderate mitral stenosis. There is a mobile echodense lesion noted attached to the anterior mitral leaflet which could be vegetation Previewed by: Dr. Yasmani Garcia MD (Electronically Signed) Final Date: 26 Dec 2021 10:47
[2021-12-26] MEDS ORDERED: POTASSIUM CHLORIDE ER 20 MEQ TAB.ER PO STA (10:49)
--- NOTE | 2021-12-26 11:50 | P.PN ---
Subjective Progress Note Date: 12/26/21 Principal diagnosis: Hypoglycemia Patient was seen and examined. No acute events overnight. Transfuse 2 units PRBC yesterday. Repeat hemoglobin 9.2. Patient had blood glucose in the 40s this morning, asymptomatic. He reports an increased amount of energy. He is looking for to going home. He denies any chest pain, shortness breath or palpitations. No dizziness. No nausea or vomiting. No fever or chills. Objective - Vital Signs Vital signs: Vital Signs Temp 97.4 F L 12/26/21 07:00 Pulse 69 12/26/21 07:00 Resp 14 12/26/21 07:00 BP 176/76 12/26/21 07:00 Pulse Ox 96 12/26/21 07:00 Intake & Output 12/25/21 12/26/21 12/26/21 18:59 06:59 18:59 Intake Total 310 545 118 Balance 310 545 118 Weight 81.647 kg Intake: Oral 118 Blood Product 310 545 Rc As-1 Unit 310 [id number] Rc Pheresis 2 As3 Unit 0 274 [id number] Other: # Voids 0 2 - Exam General: [non toxic], [no distress], [appears at stated age] Derm: [warm], [dry] Head: [atraumatic], [normocephalic], [symmetric] Eyes: [EOMI], [no lid lag], [pale sclera] Mouth: [no lip lesion], [mucus membranes moist] Cardiovascular: [S1S2 reg], [systolic murmur] Lungs: [CTA bilateral], [no rhonchi, no rales] , [no accessory muscle use] Ext: [no gross muscle atrophy], [no edema], [no contractures] Neuro: [no focal neuro deficits] Psych: [Alert], [oriented], [appropriate affect] - Labs CBC & Chem 7: 12/26/21 05:52 12/26/21 05:52 Labs: Abnormal Lab Results - Last 24 Hours (Table) 12/25/21 12/25/21 12/25/21 Range/Units 11:50 11:50 11:50 RBC 2.52 L (4.30-5.90) m/uL Hgb 5.8 L* (13.0-17.5) gm/dL Hct 20.6 L (39.0-53.0) % MCH 22.9 L (25.0-35.0) pg MCHC 28.0 L (31.0-37.0) g/dL RDW 18.1 H (11.5-15.5) % Neutrophils # 8.2 H (1.3-7.7) k/uL Lymphocytes # 0.7 L (1.0-4.8) k/uL APTT 46.4 H (22.0-30.0) sec Sodium (137-145) mmol/L Potassium (3.5-5.5) mmol/L Chloride (98-107) mmol/L BUN (9-20) mg/dL Creatinine (0.66-1.25) mg/dL Est GFR (CKD-EPI)AfAm (60.0-200.0) Est GFR (CKD-EPI)NonAf (60.0-200.0) BUN/Creatinine Ratio (12.00-20.00) Ratio Glucose (74-99) mg/dL POC Glucose (mg/dL) (75-99) mg/dL Calcium (8.4-10.2) mg/dL Iron (65-175) ug/dL % Saturation (15.00-50.00) Total Protein (6.3-8.2) g/dL Albumin (3.5-5.0) g/dL Vitamin B12 (200.0-944.0) pg/mL Urine Protein 2+ H (Negative) Urine Glucose (UA) 4+ H (Negative) Urine Mucus Rare H (None) /hpf Crossmatch 12/25/21 12/25/21 12/25/21 Range/Units 11:50 11:55 17:15 RBC (4.30-5.90) m/uL Hgb (13.0-17.5) gm/dL Hct (39.0-53.0) % MCH (25.0-35.0) pg MCHC (31.0-37.0) g/dL RDW (11.5-15.5) % Neutrophils # (1.3-7.7) k/uL Lymphocytes # (1.0-4.8) k/uL APTT (22.0-30.0) sec Sodium 131 L (137-145) mmol/L Potassium (3.5-5.5) mmol/L Chloride 97 L (98-107) mmol/L BUN 59 H (9-20) mg/dL Creatinine 4.92 H (0.66-1.25) mg/dL Est GFR (CKD-EPI)AfAm (60.0-200.0) Est GFR (CKD-EPI)NonAf (60.0-200.0) BUN/Creatinine Ratio (12.00-20.00) Ratio Glucose 471 H (74-99) mg/dL POC Glucose (mg/dL) 357 H (75-99) mg/dL Calcium 7.5 L (8.4-10.2) mg/dL Iron (65-175) ug/dL % Saturation (15.00-50.00) Total Protein 5.4 L (6.3-8.2) g/dL Albumin 2.8 L (3.5-5.0) g/dL Vitamin B12 (200.0-944.0) pg/mL Urine Protein (Negative) Urine Glucose (UA) (Negative) Urine Mucus (None) /hpf Crossmatch See Detail 12/25/21 12/26/21 12/26/21 Range/Units 21:00 01:24 05:52 RBC 3.78 L (4.30-5.90) m/uL Hgb 9.2 L (13.0-17.5) gm/dL Hct 30.9 L (39.0-53.0) % MCH 24.3 L (25.0-35.0) pg MCHC 29.8 L (31.0-37.0) g/dL RDW 18.1 H (11.5-15.5) % Neutrophils # (1.3-7.7) k/uL Lymphocytes # 0.74 L (1.0-4.8) k/uL APTT (22.0-30.0) sec Sodium (137-145) mmol/L Potassium (3.5-5.5) mmol/L Chloride (98-107) mmol/L BUN (9-20) mg/dL Creatinine (0.66-1.25) mg/dL Est GFR (CKD-EPI)AfAm (60.0-200.0) Est GFR (CKD-EPI)NonAf (60.0-200.0) BUN/Creatinine Ratio (12.00-20.00) Ratio Glucose (74-99) mg/dL POC Glucose (mg/dL) 291 H 182 H (75-99) mg/dL Calcium (8.4-10.2) mg/dL Iron (65-175) ug/dL % Saturation (15.00-50.00) Total Protein (6.3-8.2) g/dL Albumin (3.5-5.0) g/dL Vitamin B12 (200.0-944.0) pg/mL Urine Protein (Negative) Urine Glucose (UA) (Negative) Urine Mucus (None) /hpf Crossmatch 12/26/21 12/26/21 Range/Units 05:52 06:58 RBC (4.30-5.90) m/uL Hgb (13.0-17.5) gm/dL Hct (39.0-53.0) % MCH (25.0-35.0) pg MCHC (31.0-37.0) g/dL RDW (11.5-15.5) % Neutrophils # (1.3-7.7) k/uL Lymphocytes # (1.0-4.8) k/uL APTT (22.0-30.0) sec Sodium (137-145) mmol/L Potassium 3.2 L (3.5-5.5) mmol/L Chloride (98-107) mmol/L BUN 53.0 H (9-20) mg/dL Creatinine 5.0 H (0.66-1.25) mg/dL Est GFR (CKD-EPI)AfAm 12.4 L (60.0-200.0) Est GFR (CKD-EPI)NonAf 10.7 L (60.0-200.0) BUN/Creatinine Ratio 10.60 L (12.00-20.00) Ratio Glucose 47 L* (74-99) mg/dL POC Glucose (mg/dL) 51 L (75-99) mg/dL Calcium 8.5 L (8.4-10.2) mg/dL Iron 25 L (65-175) ug/dL % Saturation 7.53 L (15.00-50.00) Total Protein (6.3-8.2) g/dL Albumin (3.5-5.0) g/dL Vitamin B12 1856.0 H (200.0-944.0) pg/mL Urine Protein (Negative) Urine Glucose (UA) (Negative) Urine Mucus (None) /hpf Crossmatch Assessment and Plan Assessment: #Symptomatic anemia #Syncopal episode #Mitral vegetation #Diabetes mellitus with hypoglycemia #ESRD on peritoneal dialysis daily #Hypokalemia #Hypocalcemia Resolved: Hyponatremia Chronic conditions: CAD, COPD, hypertension, dyslipidemia, GERD His hemoglobin is 9.2 post 2 units PRBC. Iron studies seem to point towards iron deficiency anemia. Telemetry monitoring will be ordered. Stool for occult blood will be ordered. General surgery consulted as per Nephrology recommendations. His syncopal episode is likely related to his low hemoglobin. ACS has been ruled out. Echocardiogram shows hypokinesis of the basal inferior wall, moderate mitral stenosis, mobile echodense lesion attached to the anterior leaflet. Cardiology has been consulted for further management of this patient. Blood cultures will be collected with regard to vegetation seen on Echocardiogram. No fever or leukocytosis. No indications for antibiotics for now. Decreased Levemir to 15 units QHS (from 35). Insulin sliding scale will be ordered along with accuchecks four times a day and hypoglycemic precautions. Nephrology will be consulted to resume peritoneal dialysis daily. His hypokalemia will be replaced orally. Repeat BMP tomorrow. His hypocalcemia is within normal limits when taking his albumin into consideration. Holding aspirin and Plavix until cleared by surgery. Restart Amlodipine, Lasix, Imdur and Coreg for hypertension. Restart omeprazole for GERD. Ropinirole for RLS. Given findings on Echocardiogram, patient will be switched to inpatient. Pending Cardiology and Surgery evaluation. Anticipate DC in 2 days.
[2021-12-26] MEDS ORDERED: DIALYSIS (PERIT 2.5%) 2,000 ML 50 G/2,000 ML BAG INTRAPERIT SCH (12:00)
[2021-12-26 12:03] LABS: Glucose,Whole Blood 126 mg/dL (75-99)
[2021-12-26] MEDS ORDERED: amLODIPine 5 MG TAB PO STA (13:04)
--- NOTE | 2021-12-26 13:11 | P.CRDCN ---
History of Present Illness Consult date: 12/26/21 History of present illness: HISTORY OF PRESENT ILLNESS: This is a 71-year-old male with a past medical history significant for coronary artery disease with previous stenting, end-stage renal disease on peritoneal dialysis, hypertension, and diabetes. Patient follows in the office with Dr. Sims. We have been asked to see the patient in consultation for possible vegetation. Patient examined at the bedside. Patient is admitted to the [facility] secondary to generalized weakness and possible syncopal episode. Patient was found to be anemic with a hemoglobin of 5.8. He received RBC transfusion. Repeat hemoglobin is 9.2. Patient has no complaints of chest pain or pressure. He denies shortness of breath. Patient's blood pressure is on the higher side with a reading of 176/76. * EKG reveals sinus mechanism with T-wave inversions in lead 1, aVL, V5, V6 * Chest xray cardiomegaly with small right pleural effusion and associated right basilar atelectasis and/or infiltrate redemonstrated. No significant change from prior. * Laboratory data: WBC 8.58. Hemoglobin 9.2. Platelet count 403. Sodium 142. Potassium 3.2. BUN 53. Creatinine 5.0. * Current home cardiac medications include Plavix any 5 mg daily, Lasix 80 mg daily, Imdur 60 mg twice a day, amlodipine 5 mg daily, carvedilol 6.25 mg twice a day, aspirin 81 mg daily, atorvastatin 20 mg at night * Echocardiogram completed revealing ejection fraction 45-50%, mid to basal inferior lateral hypokinesis, mild tricuspid regurgitation, mild aortic stenosis, mild mitral regurgitation, possible mobile vegetation seen on the anterior mitral valve leaflet. * Cardiac catheterization history: March 2021 with successful stenting of the mid right coronary artery. REVIEW OF SYSTEMS: At the time of my exam: CONSTITUTIONAL: Denies fever or chills. HEENT: Denies blurred vision, vision changes, or eye pain. Denies hemoptysis CARDIOVASCULAR: Denies chest pain. Denies orthopnea. Denies PND. Denies palpitations RESPIRATORY: Denies shortness of breath. GASTROINTESTINAL: Denies abdominal pain. Denies nausea or vomiting. HEMATOLOGIC: Denies bleeding disorders. GENITOURINARY: Denies any blood in urine. SKIN: Denies pruitis. Denies rash. PHYSICAL EXAM: VITAL SIGNS: Reviewed. GENERAL: Well-developed in no acute distress. HEENT: Head is normocephalic. Pupils are equal, round. Sclerae anicteric. Mucous membranes of the mouth are moist. Neck supple. No JVD or thyromegaly LUNGS: Respirations even and unlabored. Lungs essentially clear to auscultation bilaterally. HEART: Regular rate and rhythm. S1 and S2 heard. Systolic murmur noted. ABDOMEN: Soft. Nondistended. Nontender. EXTREMITIES: Normal range of motion. No clubbing or cyanosis. Peripheral pulses intact. Mild bilateral lower extremity edema NEUROLOGIC: Awake and alert. Oriented x 3. ASSESSMENT: Acute anemia, status post RBC transfusion End-stage renal disease on peritoneal dialysis Coronary artery disease with previous stenting Hypertension, uncontrolled Diabetes Abnormal echo showing possible vegetation on mitral valve, unchanged from echo in 2020 PLAN: Aspirin and plavix are on hold. Resume when okay with general surgery Continue current cardiac medications Increase amlodipine for optimal blood pressure control Echo shows possible vegetation on mitral valve, which is unchanged from patient's previous echo in 2020. Patient is currently not exhibiting any signs of endocarditis. No plans for JENNIFER at this time. Will follow up on blood cultures. If patients blood cultures come back positive, will further consider JENNIFER at that time. Further recommendations pending patient course Nurse practitioner note has been reviewed by physician. Signing provider agrees with the documented findings, assessment, and plan of care. Past Medical History Past Medical History: Coronary Artery Disease (CAD), Chest Pain / Angina, Heart Failure, COPD, Diabetes Mellitus, Dialysis, GERD/Reflux, GI Bleed, Hyperlipidemia, Hypertension, Myocardial Infarction (IA), Pneumonia, Renal Disease, Vascular Disorder Additional Past Medical History / Comment(s): Lower GI bleeds/suspect micro bleeds in intestine, occasional abdominal bloating, IDDM type II, neuropathy bilateral feet, ESRD with peritoneal dialysis ((cycler at night for 5 hours), past hemodialysis/spouse states she was told L upper arm fistula is plugged aga in, chronic anemia/transfusion of blood/iron, past partial SBO, benign colon polyps, chronic low back pain with bilateral sciatica, PVD, RLS, vertigo, insomnia, 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 Last Myocardial Infarction Date:: 03/2020 History of Any Multi-Drug Resistant Organisms: None Reported Past Surgical History: Cholecystectomy, Heart Catheterization With Stent Additional Past Surgical History / Comment(s): 03/25/20 R sublclavian mediport, R carotid stent done in [place], EGD/colonoscopy, endoscopic capsule, ORIF left wrist, aortagram, bilateral leg revascularizations/stents, left upper arm fistula and on 12/15/21 had thrombectomy balloon angioplasty of L arm fistula, peritoneal dialysis catheter removal and insertion (11/23/21). Past Anesthesia/Blood Transfusion Reactions: No Reported Reaction Additional Past Anesthesia/Blood Transfusion Reaction / Comment(s): Pt has had multiple blood transfusions without reaction. Date of Last Stent Placement:: 03/2021 Smoking Status: Current every day smoker - Past Family History Father History Unknown: Yes Mother Family Medical History: Cancer Additional Family Medical History / Comment(s): Metastatic cancer Medications and Allergies Home Medications Medication Instructions Recorded Confirmed Type Ergocalciferol (Vitamin D2) 1,250 mcg PO Q14D 07/18/17 12/25/21 History [Vitamin D2] Aspirin EC [Ecotrin Low Dose] 81 mg PO HS 02/10/18 12/25/21 History Isosorbide Mononitrate ER [Imdur] 60 mg PO BID #60 tab.er.24h 04/21/20 12/25/21 Rx DULoxetine HCL [Cymbalta] 20 mg PO HS 10/27/20 12/25/21 History Melatonin 5 mg PO HS 12/19/20 12/25/21 History Sennosides-Docusate Sodium 2 tab PO TID PRN 12/31/20 12/25/21 History [Senokot-S] Gabapentin [Neurontin] 100 mg PO TID 01/23/21 12/25/21 History Nitroglycerin Sl Tabs [Nitrostat] 0.4 mg SL Q5M PRN 01/23/21 12/25/21 History rOPINIRole HCL [Requip] 0.5 mg PO TID 01/23/21 12/25/21 History Furosemide [Lasix] 80 mg PO DAILY 02/17/21 12/25/21 History Lidocaine-Prilocaine Cream [Emla 1 applic TOPICAL DIRECTED PRN 02/17/21 12/25/21 History Cream 2.5%/2.5%] Clopidogrel [Plavix] 75 mg PO DAILY #30 tab 04/12/21 12/25/21 Rx Atorvastatin [Lipitor] 20 mg PO HS 05/08/21 12/25/21 History Ondansetron [Zofran] 4 mg PO DAILY PRN 05/08/21 12/25/21 History Oxybutynin Chloride [Ditropan] 5 mg PO HS 06/28/21 12/25/21 History Insulin Glargine [Lantus Vial] 35 unit SQ HS 07/13/21 12/25/21 History Insuln Asp Prt/Insulin Aspart 8 unit SQ AC-TID 11/12/21 12/25/21 History [NovoLOG MIX 70-30 VIAL] Lactulose [Constulose] 10 gm PO DAILY PRN 11/12/21 12/25/21 History Nephro-Deepa 1 tab PO DAILY 11/12/21 12/25/21 History Omeprazole 80 mg PO HS 11/12/21 12/25/21 History amLODIPine [Norvasc] 5 mg PO DAILY 11/12/21 12/25/21 History carvediloL [Coreg] 6.25 mg PO BID 11/22/21 12/25/21 History Cyanocobalamin [Vitamin B-12] 500 mcg PO DAILY 12/14/21 12/25/21 History Allergies Allergy/AdvReac Type Severity Reaction Status Date / Time Iodinated Contrast Media AdvReac CAN'T Verified 12/25/21 12:19 TAKE, RENAL DISEASE Iodine and Iodide Containing AdvReac CAN'T Verified 12/25/21 12:19 Produc TAKE, RENAL DISEASE Physical Exam Vitals: Vital Signs Temp Pulse Pulse Resp BP BP Pulse Ox 12/26/21 07:00 97.4 F L 69 14 176/76 96 12/26/21 02:06 98.2 F 68 17 140/68 97 12/26/21 01:37 66 18 12/25/21 21:10 98 F 67 18 138/75 98 12/25/21 20:55 98 F 66 18 136/79 98 12/25/21 20:00 18 12/25/21 18:55 98.2 F 87 18 136/79 94 L 12/25/21 17:55 98.0 F 62 14 149/61 12/25/21 17:25 98.0 F 58 L 16 142/56 12/25/21 17:23 97.6 F 60 14 142/56 98 12/25/21 17:15 97.6 F 57 L 14 149/60 12/25/21 17:00 14 12/25/21 16:52 97.6 F 55 L 18 152/66 98 12/25/21 15:28 97.4 F L 64 17 138/49 98 12/25/21 14:55 98.0 F 61 20 135/60 97 12/25/21 14:17 97.9 F 65 18 127/57 97 12/25/21 13:47 97.8 F 69 18 133/62 98 12/25/21 13:37 97.8 F 66 18 141/59 12/25/21 13:30 64 16 134/62 99 12/25/21 12:30 68 16 125/58 99 12/25/21 12:00 64 16 124/55 99 Intake and Output 12/25/21 12/26/21 12/26/21 22:59 06:59 14:59 Intake Total 855 118 Balance 855 118 Intake: Oral 118 Blood Product 855 Rc As-1 Unit 310 [id number] Rc Pheresis 2 As3 Unit 274 [id number] Other: # Voids 1 2 Weight 81.647 kg Results 12/26/21 05:52 12/26/21 05:52 Cardiac Enzymes 12/25/21 12/25/21 12/25/21 Range/Units 11:50 11:50 16:16 AST 19 (17-59) U/L Troponin I <0.012 <0.012 (0.000-0.034) ng/mL Coagulation 12/25/21 Range/Units 11:50 PT 10.5 (9.0-12.0) sec APTT 46.4 H (22.0-30.0) sec CBC 12/25/21 12/26/21 Range/Units 11:50 05:52 WBC 9.7 8.58 (3.8-10.6) k/uL RBC 2.52 L 3.78 L (4.30-5.90) m/uL Hgb 5.8 L* 9.2 L (13.0-17.5) gm/dL Hct 20.6 L 30.9 L (39.0-53.0) % Plt Count 420 403 (150-450) k/uL Comprehensive Metabolic Panel 12/25/21 12/26/21 Range/Units 11:50 05:52 Sodium 131 L 142 (137-145) mmol/L Potassium 3.5 3.2 L (3.5-5.1) mmol/L Chloride 97 L 102 (98-107) mmol/L Carbon Dioxide 24 26.3 (22-30) mmol/L BUN 59 H 53.0 H (9-20) mg/dL Creatinine 4.92 H 5.0 H (0.66-1.25) mg/dL Glucose 471 H 47 L* (74-99) mg/dL Calcium 7.5 L 8.5 L (8.4-10.2) mg/dL AST 19 (17-59) U/L ALT 13 (4-49) U/L Alkaline Phosphatase 124 (38-126) U/L Total Protein 5.4 L (6.3-8.2) g/dL Albumin 2.8 L (3.5-5.0) g/dL Current Medications Generic Name Dose Route Start Last Admin Trade Name Freq PRN Reason Stop Dose Admin Acetaminophen 650 mg 12/25/21 12:55 Acetaminophen Tab 325 Mg Tab PO Q6HR PRN Mild Pain or Fever > 100.5 Al Hydroxide/Mg Hydroxide 15 ml 12/25/21 12:55 Mag Hydrox/Al Hydrox/Simeth 30 Ml Cup PO Q6HR PRN Indigestion Amlodipine Besylate 5 mg 12/26/21 09:00 12/26/21 09:02 Amlodipine 5 Mg Tab PO 5 mg DAILY GRECIA Administration Atorvastatin Calcium 20 mg 12/25/21 21:00 12/25/21 20:56 Atorvastatin 20 Mg Tab PO 20 mg HS GRECIA Administration Carvedilol 6.25 mg 12/25/21 21:00 12/26/21 09:02 Carvedilol 6.25 Mg Tab PO 6.25 mg BID GRECIA Administration Cyanocobalamin 500 mcg 12/26/21 09:00 12/26/21 09:02 Cyanocobalamin 500 Mcg Tab PO 500 mcg DAILY GRECIA Administration Darbepoetin Joel 40 mcg 12/26/21 09:00 12/26/21 09:02 Darbepoetin Joel 40 Mcg/0.4 Ml Syringe SQ 40 mcg Q7D GRECIA Administration Docusate Sodium 100 mg 12/25/21 12:55 Docusate 100 Mg Cap PO BID PRN Constipation Duloxetine HCl 20 mg 12/25/21 21:00 12/25/21 20:57 Duloxetine Hcl 20 Mg Capsule.Dr PO 20 mg HS GRECIA Administration Furosemide 80 mg 12/26/21 09:00 12/26/21 09:03 Furosemide 40 Mg Tab PO 80 mg DAILY GRECIA Administration Gabapentin 100 mg 12/25/21 16:00 12/26/21 09:03 Gabapentin 100 Mg Cap PO 100 mg TID GRECIA Administration Peritoneal Dialysis Solution 50 g in 2,000 mls @ 0 mls/hr 12/26/21 12:00 Delflex With 2.5% Dextrose (2,000 Ml) INTRAPERIT Q6HR [facility] Protocol As Directed Insulin Aspart 0 unit 12/25/21 17:30 12/26/21 07:03 Insulin Aspart (Novolog) 100 Unit/Ml Vial SQ Not Given AC-TID [facility] Protocol Insulin Detemir 35 unit 12/25/21 21:00 12/25/21 21:01 Insulin Detemir (Levemir) 100 Unit/Ml Syr SQ 35 unit HS GRECIA Administration Isosorbide Mononitrate 60 mg 12/25/21 21:00 12/26/21 09:03 Isosorbide Mononitrate Er 60 Mg Tab.Er.24h PO 60 mg BID GRECIA Administration Naloxone HCl 0.2 mg 12/25/21 12:55 Naloxone 0.4 Mg/Ml 1 Ml Vial IV Q2M PRN Opioid Reversal Ondansetron HCl 4 mg 12/25/21 12:55 Ondansetron 4 Mg/2 Ml Vial IVP Q8HR PRN Nausea And Vomiting Oxybutynin Chloride 5 mg 12/25/21 21:00 12/25/21 20:57 Oxybutynin Chloride 5 Mg Tab PO 5 mg HS GRECIA Administration Pantoprazole Sodium 40 mg 12/25/21 21:00 12/25/21 20:56 Pantoprazole 40 Mg Tablet PO 40 mg HS GRECIA Administration Ropinirole HCl 0.5 mg 12/25/21 16:00 12/26/21 09:03 Ropinirole Hcl 0.25 Mg Tab PO 0.5 mg TID GRECIA Administration Intake and Output 12/25/21 12/26/21 12/26/21 22:59 06:59 14:59 Intake Total 855 118 Balance 855 118 Intake: Oral 118 Blood Product 855 Rc As-1 Unit 310 [id number] Rc Pheresis 2 As3 Unit 274 [id number] Other: # Voids 1 2 Weight 81.647 kg 12/26/21 05:52 12/26/21 05:52
[2021-12-26 13:44] VITALS: BP 157/49; PULSE 65; TEMP 98.2
--- NOTE | 2021-12-26 15:03 | P.GSCN ---
History of Present Illness Consult date: 12/26/21 History of present illness: CHIEF COMPLAINT: syncope HISTORY OF PRESENT ILLNESS: This is a 71-year-old male who presented to the hospital with complaints of syncope and weakness. Apparently he was sitting down at the table eating breakfast yesterday morning and when he went to stand up he felt lightheaded and had a syncopal episode. Patient reports feeling very weak and tired. He was found to have a hemoglobin of 5.8. He received 2 units of blood and hemoglobin is 99.2. He denies any blood in his stools or black stools. Denies any abdominal pain. Denies any nausea or vomiting. His last EGD was in June 2021 which revealed antral gastritis. He reports that his last colonoscopy was several years ago and reported as negative. He does have history of chronic anemia and has had blood transfusions in the past. He reports he thought it was due to his end-stage renal disease in which she is on peritoneal dialysis. Patient reports that he has not had any active GI bleed history. He also has known coronary artery disease with cardiac stents almost a year old. He is on aspirin and Plavix. Those medications are currently on hold. Surgical service was consulted in regards to patient's anemia. Cardiology is following in regards to valve vegetation that was noted on echo. They have ordered blood cultures. PAST MEDICAL HISTORY: See list. PAST SURGICAL HISTORY: See list. MEDICATIONS: See list. ALLERGIES: See list. SOCIAL HISTORY: No illicit drug use. REVIEW OF SYSTEMS: CONSTITUTIONAL: Denies fever or chills. HEENT: Denies blurred vision, vision changes, or eye pain. Denies hemoptysis CARDIOVASCULAR: Denies chest pain or pressure. RESPIRATORY: No shortness of breath. GASTROINTESTINAL: See HPI for pertinent findings HEMATOLOGIC: Denies bleeding disorders. GENITOURINARY: Denies any blood in urine or increased urinary frequency. SKIN: Denies pruitis. Denies rash. PHYSICAL EXAM: VITAL SIGNS: Reviewed GENERAL: Well-developed in no acute distress. HEENT: No sclera icterus. Extraocular movements grossly intact. Moist buccal mucosa. Head is atraumatic, normocephalic. No nasal drainage. ABDOMEN: Soft. Nondistended. Nontender NEUROLOGIC: Alert and oriented. Cranial nerves II through XII grossly intact. LABORATORY DATA: WBC is 9.7 hemoglobin 5.8-9.2 platelets 403 INR 1.0 Sodium 142 k 3.2 cr 5.0 Iron level low at 25 iron saturation 7.3% ferritin 132 B12 1856 folate greater than 20 IMAGING: ASSESSMENT: 1. Symptomatic anemia 2. Syncopal episode 3. History of coronary artery disease with cardiac stent on Plavix at home 4. End-stage renal disease on peritoneal dialysis 5. 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 Chronic anemia PLAN: -Further recommendations forthcoming per surgeon -Continue to hold aspirin and Plavix -Continue to monitor hemoglobin -Continue monitor for any signs or symptoms of bleeding Physician Historic Site Administrator note has been reviewed by physician. Signing provider agrees with the documented findings, assessment, and plan of care. Past Medical History Past Medical History: Coronary Artery Disease (CAD), Chest Pain / Angina, Heart Failure, COPD, Diabetes Mellitus, Dialysis, GERD/Reflux, GI Bleed, Hyperlipidemia, Hypertension, Myocardial Infarction (DE), Pneumonia, Renal Disease, Vascular Disorder Additional Past Medical History / Comment(s): Lower GI bleeds/suspect micro bleeds in intestine, occasional abdominal bloating, IDDM type II, neuropathy bilateral feet, ESRD with peritoneal dialysis ((cycler at night for 5 hours), past hemodialysis/spouse states she was told L upper arm fistula is plugged again, chronic anemia/transfusion of blood/iron, past partial SBO, benign colon polyps, chronic low back pain with bilateral sciatica, PVD, RLS, vertigo, in somnia, 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 Last Myocardial Infarction Date:: 03/2020 History of Any Multi-Drug Resistant Organisms: None Reported Past Surgical History: Cholecystectomy, Heart Catheterization With Stent Additional Past Surgical History / Comment(s): 03/25/20 R sublclavian mediport, R carotid stent done in [place], EGD/colonoscopy, endoscopic capsule, ORIF left wrist, aortagram, bilateral leg revascularizations/stents, left upper arm fistula and on 12/15/21 had thrombectomy balloon angioplasty of L arm fistula, peritoneal dialysis catheter removal and insertion (11/23/21). Past Anesthesia/Blood Transfusion Reactions: No Reported Reaction Additional Past Anesthesia/Blood Transfusion Reaction / Comm: Pt has had multiple blood transfusions without reaction. Date of Last Stent Placement:: 03/2021 Smoking Status: Current every day smoker - Past Family History Father History Unknown: Yes Mother Family Medical History: Cancer Additional Family Medical History / Comment(s): Metastatic cancer Medications and Allergies Home Medications Medication Instructions Recorded Confirmed Type Ergocalciferol (Vitamin D2) 1,250 mcg PO Q14D 07/18/17 12/25/21 History [Vitamin D2] Aspirin EC [Ecotrin Low Dose] 81 mg PO HS 02/10/18 12/25/21 History Isosorbide Mononitrate ER [Imdur] 60 mg PO BID #60 tab.er.24h 04/21/20 12/25/21 Rx DULoxetine HCL [Cymbalta] 20 mg PO HS 10/27/20 12/25/21 History Melatonin 5 mg PO HS 12/19/20 12/25/21 History Sennosides-Docusate Sodium 2 tab PO TID PRN 12/31/20 12/25/21 History [Senokot-S] Gabapentin [Neurontin] 100 mg PO TID 01/23/21 12/25/21 History Nitroglycerin Sl Tabs [Nitrostat] 0.4 mg SL Q5M PRN 01/23/21 12/25/21 History rOPINIRole HCL [Requip] 0.5 mg PO TID 01/23/21 12/25/21 History Furosemide [Lasix] 80 mg PO DAILY 02/17/21 12/25/21 History Lidocaine-Prilocaine Cream [Emla 1 applic TOPICAL DIRECTED PRN 02/17/21 12/25/21 History Cream 2.5%/2.5%] Clopidogrel [Plavix] 75 mg PO DAILY #30 tab 04/12/21 12/25/21 Rx Atorvastatin [Lipitor] 20 mg PO HS 05/08/21 12/25/21 History Ondansetron [Zofran] 4 mg PO DAILY PRN 05/08/21 12/25/21 History Oxybutynin Chloride [Ditropan] 5 mg PO HS 06/28/21 12/25/21 History Insulin Glargine [Lantus Vial] 35 unit SQ HS 07/13/21 12/25/21 History Insuln Asp Prt/Insulin Aspart 8 unit SQ AC-TID 11/12/21 12/25/21 History [NovoLOG MIX 70-30 VIAL] Lactulose [Constulose] 10 gm PO DAILY PRN 11/12/21 12/25/21 History Nephro-Deepa 1 tab PO DAILY 11/12/21 12/25/21 History Omeprazole 80 mg PO HS 11/12/21 12/25/21 History amLODIPine [Norvasc] 5 mg PO DAILY 11/12/21 12/25/21 History carvediloL [Coreg] 6.25 mg PO BID 11/22/21 12/25/21 History Cyanocobalamin [Vitamin B-12] 500 mcg PO DAILY 12/14/21 12/25/21 History Allergies Allergy/AdvReac Type Severity Reaction Status Date / Time Iodinated Contrast Media AdvReac CAN'T Verified 12/25/21 12:19 TAKE, RENAL DISEASE Iodine and Iodide Containing AdvReac CAN'T Verified 12/25/21 12:19 Produc TAKE, RENAL DISEASE Surgical - Exam Vital Signs Temp Pulse Resp BP Pulse Ox 98.1 F 71 16 130/51 100 12/25/21 10:40 12/25/21 10:40 12/25/21 10:40 12/25/21 10:40 12/25/21 10:40 Results - Labs 12/26/21 05:52 12/26/21 05:52 Abnormal Lab Results - Last 24 Hours (Table) 12/25/21 12/25/21 12/25/21 Range/Units 11:50 11:55 17:15 RBC (4.40-5.60) X 10*6/uL Hgb (13.0-17.0) g/dL Hct (39.6-50.0) % MCH (27.0-32.0) pg MCHC (32.0-37.0) g/dL RDW (11.5-14.5) % Lymphocytes # (0.90-5.00) X 10*3/uL Potassium (3.5-5.5) mmol/L BUN (9.0-27.0) mg/dL Creatinine (0.6-1.5) mg/dL Est GFR (CKD-EPI)AfAm (60.0-200.0) Est GFR (CKD-EPI)NonAf (60.0-200.0) BUN/Creatinine Ratio (12.00-20.00) Ratio Glucose (70-110) mg/dL POC Glucose (mg/dL) 357 H (75-99) mg/dL Calcium (8.7-10.3) mg/dL Phosphorus (2.4-5.1) mg/dL Iron (65-175) ug/dL % Saturation (15.00-50.00) Vitamin B12 (200.0-944.0) pg/mL Urine Protein 2+ H (Negative) Urine Glucose (UA) 4+ H (Negative) Urine Mucus Rare H (None) /hpf Crossmatch See Detail 12/25/21 12/26/21 12/26/21 Range/Units 21:00 01:24 05:52 RBC 3.78 L (4.40-5.60) X 10*6/uL Hgb 9.2 L (13.0-17.0) g/dL Hct 30.9 L (39.6-50.0) % MCH 24.3 L (27.0-32.0) pg MCHC 29.8 L (32.0-37.0) g/dL RDW 18.1 H (11.5-14.5) % Lymphocytes # 0.74 L (0.90-5.00) X 10*3/uL Potassium (3.5-5.5) mmol/L BUN (9.0-27.0) mg/dL Creatinine (0.6-1.5) mg/dL Est GFR (CKD-EPI)AfAm (60.0-200.0) Est GFR (CKD-EPI)NonAf (60.0-200.0) BUN/Creatinine Ratio (12.00-20.00) Ratio Glucose (70-110) mg/dL POC Glucose (mg/dL) 291 H 182 H (75-99) mg/dL Calcium (8.7-10.3) mg/dL Phosphorus (2.4-5.1) mg/dL Iron (65-175) ug/dL % Saturation (15.00-50.00) Vitamin B12 (200.0-944.0) pg/mL Urine Protein (Negative) Urine Glucose (UA) (Negative) Urine Mucus (None) /hpf Crossmatch 12/26/21 12/26/21 12/26/21 Range/Units 05:52 05:52 06:58 RBC (4.40-5.60) X 10*6/uL Hgb (13.0-17.0) g/dL Hct (39.6-50.0) % MCH (27.0-32.0) pg MCHC (32.0-37.0) g/dL RDW (11.5-14.5) % Lymphocytes # (0.90-5.00) X 10*3/uL Potassium 3.2 L (3.5-5.5) mmol/L BUN 53.0 H (9.0-27.0) mg/dL Creatinine 5.0 H (0.6-1.5) mg/dL Est GFR (CKD-EPI)AfAm 12.4 L (60.0-200.0) Est GFR (CKD-EPI)NonAf 10.7 L (60.0-200.0) BUN/Creatinine Ratio 10.60 L (12.00-20.00) Ratio Glucose 47 L* (70-110) mg/dL POC Glucose (mg/dL) 51 L (75-99) mg/dL Calcium 8.5 L (8.7-10.3) mg/dL Phosphorus 5.6 H (2.4-5.1) mg/dL Iron 25 L (65-175) ug/dL % Saturation 7.53 L (15.00-50.00) Vitamin B12 1856.0 H (200.0-944.0) pg/mL Urine Protein (Negative) Urine Glucose (UA) (Negative) Urine Mucus (None) /hpf Crossmatch 12/26/21 Range/Units 12:02 RBC (4.40-5.60) X 10*6/uL Hgb (13.0-17.0) g/dL Hct (39.6-50.0) % MCH (27.0-32.0) pg MCHC (32.0-37.0) g/dL RDW (11.5-14.5) % Lymphocytes # (0.90-5.00) X 10*3/uL Potassium (3.5-5.5) mmol/L BUN (9.0-27.0) mg/dL Creatinine (0.6-1.5) mg/dL Est GFR (CKD-EPI)AfAm (60.0-200.0) Est GFR (CKD-EPI)NonAf (60.0-200.0) BUN/Creatinine Ratio (12.00-20.00) Ratio Glucose (70-110) mg/dL POC Glucose (mg/dL) 126 H (75-99) mg/dL Calcium (8.7-10.3) mg/dL Phosphorus (2.4-5.1) mg/dL Iron (65-175) ug/dL % Saturation (15.00-50.00) Vitamin B12 (200.0-944.0) pg/mL Urine Protein (Negative) Urine Glucose (UA) (Negative) Urine Mucus (None) /hpf Crossmatch Diabetes panel 12/26/21 Range/Units 05:52 Sodium 142 (135-145) mmol/L Potassium 3.2 L (3.5-5.5) mmol/L Chloride 102 (96-109) mmol/L Carbon Dioxide 26.3 (20.0-27.5) mmol/L BUN 53.0 H (9.0-27.0) mg/dL Creatinine 5.0 H (0.6-1.5) mg/dL Glucose 47 L* (70-110) mg/dL Calcium 8.5 L (8.7-10.3) mg/dL Calcium panel 12/26/21 12/26/21 Range/Units 05:52 05:52 Calcium 8.5 L (8.7-10.3) mg/dL Phosphorus 5.6 H (2.4-5.1) mg/dL Pituitary panel 12/26/21 Range/Units 05:52 Sodium 142 (135-145) mmol/L Potassium 3.2 L (3.5-5.5) mmol/L Chloride 102 (96-109) mmol/L Carbon Dioxide 26.3 (20.0-27.5) mmol/L BUN 53.0 H (9.0-27.0) mg/dL Creatinine 5.0 H (0.6-1.5) mg/dL Glucose 47 L* (70-110) mg/dL Calcium 8.5 L (8.7-10.3) mg/dL Adrenal panel 12/26/21 Range/Units 05:52 Sodium 142 (135-145) mmol/L Potassium 3.2 L (3.5-5.5) mmol/L Chloride 102 (96-109) mmol/L Carbon Dioxide 26.3 (20.0-27.5) mmol/L BUN 53.0 H (9.0-27.0) mg/dL Creatinine 5.0 H (0.6-1.5) mg/dL Glucose 47 L* (70-110) mg/dL Calcium 8.5 L (8.7-10.3) mg/dL
--- NOTE | 2021-12-26 16:53 | P.DS ---
Providers Date of admission: 12/26/21 10:56 Expected date of discharge: 12/26/21 Attending physician: Rafa Sanchez MD Consults: 12/25/21 12:56 Consult Physician Routine Consulting Provider: Eduardo French Consult Reason/Comments: Peritoneal dialysis Do you want consulting provider notified?: Yes 12/26/21 10:51 Consult Physician Routine Consulting Provider: Deepak Patel Consult Reason/Comments: Low Hg Do you want consulting provider notified?: Yes Consult Physician Stat Consulting Provider: Bobby Stone Consult Reason/Comments: Vegetation of mitral valve? Do you want consulting provider notified?: Yes Primary care physician: [place] [facility] Hospital Course: Patient is a 71-year-old male with PMH of CAD on aspirin and Plavix, COPD, diabetes mellitus, ESRD on peritoneal dialysis, hypertension, dyslipidemia, GERD presents the ED for generalized weakness and syncopal episode. Patient reports attempting to stand up from a seated position this morning when he started to feel lightheaded and had a syncopal episode. There was noone to witness the syncopal episode. He denies any auras, chest pain or shortness of breath prior to passing out. He denies any bladder or bowel incontinence. He denies any postictal confusion. He reports generalized weakness and lightheadedness that is usually positional that has been ongoing for the past 3 weeks. He denies any hematochezia, blood in his stool or melena. Patient reports undergoing colonoscopy 5 months ago that was within normal limits. He denies any headache, lower extremity edema, nausea or vomiting, fever or chills, cough, palpitations, changes in urination or bowel habits. No changes in appetite or weight. He denies any numbness/weakness/tingling of the extremities. The ED, his vital sig ns are stable. CBC showed hemoglobin of 5.8 MCV of 81.8. INR was 1. CMP showed sodium of 131, chloride of 97, BUN of 59, creatinine of 4.92, glucose of 471, calcium is 7.5. Patient is admitted under observation status for symptomatic anemia and blood transfusion. He recieved 2 units of PRBC. Repeat hemoglobin was 9.2. Echocardiogram showed hypokinesis of the basal inferior wall, moderate mitral stenosis, mobile echodense lesion attached to the anterior leaflet. Cardiology was consulted and recommended no JENNIFER but to follow blood cultures. Surgery and Nephrology was consulted and followed the patient during his hospitalization. Unfortunately, patient left against medical advise. Physical exam - see progress note from 12/26. Discharge Diagnosis: #Symptomatic anemia #Syncopal episode #Mitral vegetation #Diabetes mellitus with hypoglycemia #ESRD on peritoneal dialysis daily #Hypokalemia #Hypocalcemia Resolved: Hyponatremia Chronic conditions: CAD, COPD, hypertension, dyslipidemia, GERD Pertinent Studies: Echocardiogram Patient Condition at Discharge: Serious Plan - Discharge Summary Discharge Rx Participant: No New Discharge Prescriptions: Continue Ergocalciferol (Vitamin D2) [Vitamin D2] 1,250 mcg PO Q14D Aspirin EC [Ecotrin Low Dose] 81 mg PO HS Isosorbide Mononitrate ER [Imdur] 60 mg PO BID #60 tab.er.24h DULoxetine HCL [Cymbalta] 20 mg PO HS Melatonin 5 mg PO HS Sennosides-Docusate Sodium [Senokot-S] 2 tab PO TID PRN PRN Reason: Constipation Nitroglycerin Sl Tabs [Nitrostat] 0.4 mg SL Q5M PRN PRN Reason: Chest Pain Gabapentin [Neurontin] 100 mg PO TID Furosemide [Lasix] 80 mg PO DAILY Oxybutynin Chloride [Ditropan] 5 mg PO HS Insuln Asp Prt/Insulin Aspart [NovoLOG MIX 70-30 VIAL] 8 unit SQ AC-TID carvediloL [Coreg] 6.25 mg PO BID Cyanocobalamin [Vitamin B-12] 500 mcg PO DAILY rOPINIRole HCL [Requip] 0.5 mg PO TID Lidocaine-Prilocaine Cream [Emla Cream 2.5%/2.5%] 1 applic TOPICAL DIRECTED PRN PRN Reason: dialysis Clopidogrel [Plavix] 75 mg PO DAILY #30 tab Atorvastatin [Lipitor] 20 mg PO HS Ondansetron [Zofran] 4 mg PO DAILY PRN PRN Reason: Nausea And Vomiting Insulin Glargine [Lantus Vial] 35 unit SQ HS amLODIPine [Norvasc] 5 mg PO DAILY Omeprazole 80 mg PO HS Nephro-Deepa 1 tab PO DAILY Lactulose [Constulose] 10 gm PO DAILY PRN PRN Reason: Constipation Discharge Medication List Ergocalciferol (Vitamin D2) [Vitamin D2] 1,250 mcg PO Q14D 07/18/17 [History] Aspirin EC [Ecotrin Low Dose] 81 mg PO HS 02/10/18 [History] Isosorbide Mononitrate ER [Imdur] 60 mg PO BID #60 tab.er.24h 04/21/20 [Rx] DULoxetine HCL [Cymbalta] 20 mg PO HS 10/27/20 [History] Melatonin 5 mg PO HS 12/19/20 [History] Sennosides-Docusate Sodium [Senokot-S] 2 tab PO TID PRN 12/31/20 [History] Gabapentin [Neurontin] 100 mg PO TID 01/23/21 [History] Nitroglycerin Sl Tabs [Nitrostat] 0.4 mg SL Q5M PRN 01/23/21 [History] rOPINIRole HCL [Requip] 0.5 mg PO TID 01/23/21 [History] Furosemide [Lasix] 80 mg PO DAILY 02/17/21 [History] Lidocaine-Prilocaine Cream [Emla Cream 2.5%/2.5%] 1 applic TOPICAL DIRECTED PRN 02/17/21 [History] Clopidogrel [Plavix] 75 mg PO DAILY #30 tab 04/12/21 [Rx] Atorvastatin [Lipitor] 20 mg PO HS 05/08/21 [History] Ondansetron [Zofran] 4 mg PO DAILY PRN 05/08/21 [History] Oxybutynin Chloride [Ditropan] 5 mg PO HS 06/28/21 [History] Insulin Glargine [Lantus Vial] 35 unit SQ HS 07/13/21 [History] Insuln Asp Prt/Insulin Aspart [NovoLOG MIX 70-30 VIAL] 8 unit SQ AC-TID 11/12/21 [History] Lactulose [Constulose] 10 gm PO DAILY PRN 11/12/21 [History] Nephro-Deepa 1 tab PO DAILY 11/12/21 [History] Omeprazole 80 mg PO HS 11/12/21 [History] amLODIPine [Norvasc] 5 mg PO DAILY 11/12/21 [History] carvediloL [Coreg] 6.25 mg PO BID 11/22/21 [History] Cyanocobalamin [Vitamin B-12] 500 mcg PO DAILY 04/28/22 [History] Follow up Appointment(s)/Referral(s): Keri Garcia MD [STAFF PHYSICIAN] - 1 Week Eduardo French DO [STAFF PHYSICIAN] - 1 Week [facility]Clinic [Primary Care Provider] - 1-2 days Ambulatory/Diagnostic Orders: Complete Blood Count w/diff [LAB.AMB] Time Frame: 3 Days, Location: None Selected Patient Instructions/Handouts: Anemia (DC) Activity/Diet/Wound Care/Special Instructions: Diet: Renal diet FU with PCP within 1-2 days of discharge. Resume dialysis schedule. FU with GI Dr. Garcia within 1 week of discharge. FU with Nephrology Dr. French within 1 week of discharge. Restart all home medications. Come back to the ED or call 911 for chest pain, shortness of breath, palpitations, blood in your stool or any signs of active bleeding. Discharge Disposition: Left Against Medical Advice
[2021-12-26] MEDS ORDERED: INSULIN DETEMIR (LEVEMIR) 100 UNIT/ML SYR SQ SCH (21:00)
[2021-12-27] MEDS ORDERED: amLODIPine 10 MG TAB PO SCH (09:00)
== END 2021-12-26 16:03 | disposition left against medical advice (07) | DRG 811 ==
LOC: EC 10:26 → 6NMEDSUR 12:55 → OBSVTOIN 12-26 10:56
PROVIDERS: ADMIT Family Medicine; ATTEND Family Medicine
PROC: 30233N1 Transfusion of Nonautologous Red Blood Cells into Peripheral Vein, Percutaneous Approach (ICD-10-PCS; principal; 2021-12-26)
DX: D50.9 Iron deficiency anemia, unspecified (principal); N18.6 End stage renal disease; E87.1 Hypo-osmolality and hyponatremia; I13.2 Hypertensive heart and chronic kidney disease with heart failure and with stage 5 chronic kidney disease, or end stage renal disease; E83.51 Hypocalcemia; Z53.29 Procedure and treatment not carried out because of patient's decision for other reasons; I50.9 Heart failure, unspecified; D63.1 Anemia in chronic kidney disease; E11.22 Type 2 diabetes mellitus with diabetic chronic kidney disease; E11.51 Type 2 diabetes mellitus with diabetic peripheral angiopathy without gangrene; E11.649 Type 2 diabetes mellitus with hypoglycemia without coma; E11.65 Type 2 diabetes mellitus with hyperglycemia; E78.5 Hyperlipidemia, unspecified; E87.6 Hypokalemia; F43.10 Post-traumatic stress disorder, unspecified; G25.81 Restless legs syndrome; R55 Syncope and collapse; I08.0 Rheumatic disorders of both mitral and aortic valves; I25.10 Atherosclerotic heart disease of native coronary artery without angina pectoris; I25.2 Old myocardial infarction; M54.32 Sciatica, left side; M54.31 Sciatica, right side; I08.3 Combined rheumatic disorders of mitral, aortic and tricuspid valves; R01.1 Cardiac murmur, unspecified; G47.00 Insomnia, unspecified; J44.9 Chronic obstructive pulmonary disease, unspecified; K21.9 Gastro-esophageal reflux disease without esophagitis; K29.70 Gastritis, unspecified, without bleeding; Z79.02 Long term (current) use of antithrombotics/antiplatelets; Z79.4 Long term (current) use of insulin; Z79.82 Long term (current) use of aspirin; Z79.899 Other long term (current) drug therapy; Z95.5 Presence of coronary angioplasty implant and graft; Z99.2 Dependence on renal dialysis; Z91.041 Radiographic dye allergy status
CPT/HCPCS: 36415; 71046; 80048; 80053; 81001; 82607; 82728; 82746; 83540; 83550; 84100; 84484; 85025; 85610; 85730; 86850; 86900; 86901; 86920; 87040; 93005; 93306; 99285

== ENCOUNTER 2023-01-12 18:34 | Inpatient (IN) | payer OTHER, MEDICARE ==
[2023-01-12] MEDS ORDERED: ASPIRIN 81 MG PO STA (18:56)
[2023-01-12] MEDS ORDERED: NITROGLYCERIN SL TABS 0.4 MG TAB SUBLINGUAL STA ×3 (18:56)
--- NOTE | 2023-01-12 18:58 | ED ---
General Adult HPI - General Chief complaint: Chest Pain Stated complaint: Chest pain Time Seen by Provider: 01/12/23 18:44 Source: patient, family, RN notes reviewed Mode of arrival: wheelchair Limitations: no limitations - History of Present Illness Initial comments: Patient is a pleasant 72-year-old male presenting to the emergency department with concerns of chest discomfort. Onset of symptoms was yesterday evening. Symptoms have been somewhat waxing and waning since that time. Symptoms do improve with nitroglycerin. Patient does have history of similar symptoms associated with previous cardiac disease. Discomfort feels like tightness or p ressure. Patient has mild dyspnea and nausea. Discomfort is currently 8/10. No radiation. - Related Data Home Medications Medication Instructions Recorded Confirmed Ergocalciferol (Vitamin D2) 50,000 mcg PO Q14D 07/18/17 12/05/22 [Vitamin D2] Aspirin EC [Ecotrin Low Dose] 81 mg PO HS 02/10/18 12/05/22 DULoxetine HCL [Cymbalta] 20 mg PO HS 10/27/20 12/05/22 Melatonin 5 mg PO HS 12/19/20 12/05/22 Sennosides-Docusate Sodium 2 tab PO TID PRN 12/31/20 12/05/22 [Senokot-S] Gabapentin [Neurontin] 100 mg PO TID 01/23/21 12/05/22 Nitroglycerin Sl Tabs [Nitrostat] 0.4 mg SL Q5M PRN 01/23/21 12/05/22 rOPINIRole HCL [Requip] 0.5 mg PO TID 01/23/21 12/05/22 Furosemide [Lasix] 80 mg PO DAILY 02/17/21 12/05/22 Atorvastatin [Lipitor] 20 mg PO HS 05/08/21 12/05/22 Ondansetron [Zofran] 4 mg PO DAILY PRN 05/08/21 12/05/22 oxyBUTYnin chloride [Ditropan] 5 mg PO HS 06/28/21 12/05/22 Lactulose [Constulose] 10 gm PO DAILY PRN 11/12/21 12/05/22 Nephro-Deepa 1 tab PO DAILY 11/12/21 12/05/22 Omeprazole 80 mg PO BID 11/12/21 12/05/22 carvediloL [Coreg] 6.25 mg PO DAILY 11/22/21 12/05/22 Cyanocobalamin [Vitamin B-12] 1,000 mcg PO DAILY 12/14/21 12/05/22 Insulin Aspart 8 units SQ TID-W/MEALS 04/12/22 12/05/22 Midodrine HCl 5 mg PO BID 11/29/22 12/05/22 Potassium Chloride 10 meq PO BID 11/29/22 12/05/22 Ranolazine [Ranexa] 500 mg PO BID 11/29/22 12/05/22 Sodium Bicarbonate 650 mg PO DAILY 11/29/22 12/05/22 Previous Rx's Medication Instructions Recorded Isosorbide Mononitrate ER [Imdur] 60 mg PO BID #60 tab.er.24h 04/21/20 Allergies Allergy/AdvReac Type Severity Reaction Status Date / Time Iodinated Contrast Media AdvReac CAN'T Verified 01/12/23 18:39 TAKE, RENAL DISEASE Iodine and Iodide Containing AdvReac CAN'T Verified 01/12/23 18:39 Produc TAKE, RENAL DISEASE Review of Systems ROS Statement: Those systems with pertinent positive or pertinent negative responses have been documented in the HPI. ROS Other: All systems not noted in ROS Statement are negative. Constitutional: Denies: fever Eyes: Denies: eye pain ENT: Denies: ear pain Respiratory: Denies: cough Cardiovascular: Reports: as per HPI, chest pain Endocrine: Denies: fatigue Gastrointestinal: Denies: abdominal pain Genitourinary: Denies: dysuria Musculoskeletal: Denies: back pain Past Medical History Past Medical History: Coronary Artery Disease (CAD), Chest Pain / Angina, Heart Failure, COPD, Diabetes Mellitus, Dialysis, GERD/Reflux, GI Bleed, Hyperlipidemia, Hypertension, Myocardial Infarction ([place]), Pneumonia, Renal Disease, Vascular Disorder Additional Past Medical History / Comment(s): Lower GI bleeds/suspect micro bleeds in intestine, occasional abdominal bloating, IDDM type II, neuropathy bilateral feet, ESRD with peritoneal dialysis ((cycler at night for 5 hours), past hemodialysis/spouse states she was told L upper arm fistula is plugged again, chronic anemia/transfusion of blood/iron, past partial SBO, benign colon polyps, chronic low back pain with bilateral sciatica, PVD, RLS, vertigo, insomnia, 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 Last Myocardial Infarction Date:: 03/2020 History of Any Multi-Drug Resistant Organisms: None Reported Past Surgical History: Cholecystectomy, Heart Catheterization With Stent Additional Past Surgical History / Comment(s): 03/25/20 R sublclavian mediport, R carotid stent done in [place], EGD/colonoscopy, endoscopic capsule, ORIF left wrist, aortagram, bilateral leg revascularizations/stents, left upper arm fistula and on 12/15/21 had thrombectomy balloon angioplasty of L arm fistula, peritoneal dialysis catheter removal and insertion (11/23/21). Past Anesthesia/Blood Transfusion Reactions: No Reported Reaction Additional Past Anesthesia/Blood Transfusion Reaction / Comment(s): Pt has had multiple blood transfusions without reaction. Date of Last Stent Placement:: 03/2021 Past Psychological History: PTSD Smoking Status: Current every day smoker Past Alcohol Use History: None Reported Past Drug Use History: None Reported - Past Family History Father History Unknown: Yes Mother Family Medical History: Cancer Additional Family Medical History / Comment(s): Mother from metastatic cancer pelvic origin. General Exam Limitations: no limitations General appearance: alert, in no apparent distress Head exam: Present: normocephalic Eye exam: Present: normal appearance Neck exam: Present: normal inspection Respiratory exam: Present: normal lung sounds bilaterally. Absent: chest wall tenderness Cardiovascular Exam: Present: regular rate, normal rhythm Expanded Peripheral pulses: 2+: Radial (R), Radial (L), Posterior Tibialis (R), Posterior Tibialis (L) GI/Abdominal exam: Present: soft. Absent: tenderness Extremities exam: Present: normal inspection. Absent: pedal edema, calf tenderness Neurological exam: Present: alert Psychiatric exam: Present: normal affect, normal mood Skin exam: Present: normal color Course Vital Signs 01/12/23 01/12/23 01/12/23 18:36 19:00 19:30 Temperature 98.5 F Pulse Rate 84 74 76 Respiratory 22 14 16 Rate Blood Pressure 135/57 141/60 144/62 O2 Sat by Pulse 100 Oximetry 01/12/23 01/12/23 01/12/23 19:32 20:00 20:30 Temperature Pulse Rate 72 67 66 Respiratory 18 Rate Blood Pressure 144/62 O2 Sat by Pulse 99 99 100 Oximetry 01/12/23 21:00 Temperature Pulse Rate 87 Respiratory 14 Rate Blood Pressure O2 Sat by Pulse 99 Oximetry EKG Findings - EKG Results: EKG: interpreted by ERMD (Left axis. Inferior Q waves. Lateral T wave inversion. Previous EKGs reviewed.), sinus rhythm Medical Decision Making - Medical Decision Making Was pt. sent in by a medical professional or institution ([facility]ER[facility] Felton, YOUTH PASTOR, urgent care, hospital, or group home...) When possible be specific @ -No Did you speak to anyone other than the patient for history (EMS, parent, family, police, friend...)? What history was obtained from this source @ -Family is present and helps provide history including history of previous cardiac disease Did you review nursing and triage notes (agree or disagree)? Why? @ -I reviewed and agree with nursing and triage notes Were old charts reviewed (outside hosp., previous admission, EMS record, old EKG, old radiological studies, urgent care reports/EKG's, group home records)? Report findings @ -No old charts were reviewed Differential Diagnosis (chest pain, altered mental status, abdominal pain women, abdominal pain men, vaginal bleeding, weakness, fever, dyspnea, syncope, headache, dizziness, GI bleed, back pain, seizure, CVA, palpatations, mental health)? @ -Differential Chest Pain: Stable Angina, Unstable Angina, STEMI, NSTEMI Aortic Dissection, Pneumothorax, Musculoskeletal, Esophageal Spasm GERD, Cholecystitis, Pancreatitis, Zoster, t his is not meant to be an all-inclusive list. EKG interpreted by me (3pts min.). @ -As above X-rays interpreted by me (1pt min.). @ -Chest x-ray shows no acute process cardiomegaly. Persistent right lower lobe atelectasis versus infiltrate unchanged from previous CT interpreted by me (1pt min.). @ -None done U/S interpreted by me (1pt. min.). @ -None done What testing was considered but not performed or refused? (CT, X-rays, U/S, labs)? Why? @ -None What meds were considered but not given or refused? Why? @ -None Did you discuss the management of the patient with other professionals (professionals i.e. CAMERON Felton, YOUTH PASTOR, lab, RT, psych nurse, social media manager, resource specialist teacher, teacher, hospital security officer, pillowcase folder)? Give summary @ -Case discussed with Dr. Orozco who will admit this be va patient. He agrees with heparin despite anemia. Cardiology has been paged Was smoking cessation discussed for >3mins.? @ -No Was critical care preformed (if so, how long)? @ -32 minutes crackle care time Were there social determinants of health that impacted care today? How? (Homelessness, low income, unemployed, alcoholism, drug addiction, transportation, low edu. Level, literacy, decrease access to med. care, group home, rehab)? @ -No Was there de-escalation of care discussed even if they declined (Discuss DNR or withdrawal of care, Hospice)? DNR status @ -No What co-morbidities impacted this encounter? (DM, HTN, Smoking, COPD, CAD, Cancer, CVA, ARF, Chemo, Hep., AIDS, mental health diagnosis, sleep apnea, morbid obesity)? @ -Patient has previous cardiac disease as well as chronic renal failure and chronic anemia Was patient admitted / discharged? Hospital course, mention meds given and route, prescriptions, significant lab abnormalities, going to OR and other pertinent info. @ -Patient reevaluated. Patient improved with nitroglycerin stating discomfort is currently 2 or 3/10. Patient family are updated on results and plan. There is concern for non-ST elevation myocardial infarction and patient will be heparinized. Hemoglobin is similar to previous as patient has chronic anemia. Undiagnosed new problem with uncertain prognosis? @ -No Drug Therapy requiring intensive monitoring for toxicity (Heparin, Nitro, Insulin, Cardizem)? @ -Will be placed on heparin drip and need monitoring for this Were any procedures done? @ -No Diagnosis/symptom? @ -nstemi Acute, or Chronic, or Acute on Chronic? @ -Acute Uncomplicated (without systemic symptoms) or Complicated (systemic symptoms)? @ -default Side effects of treatment? @ -No Exacerbation, Progression, or Severe Exacerbation? @ -No Poses a threat to life or bodily function? How? (Chest pain, USA, NM, pneumonia, PE, COPD, DKA, ARF, appy, cholecystitis, CVA, Diverticulitis, Homicidal, Suicidal, threat to staff... and all critical care pts) @ -No - Lab Data Result diagrams: 01/12/23 19:20 01/12/23 19:20 Lab Results 01/12/23 01/12/23 01/12/23 Range/Units 19:20 19:20 19:20 WBC 10.0 (3.8-10.6) k/uL RBC 2.40 L (4.30-5.90) m/uL Hgb 7.4 L (13.0-17.5) gm/dL Hct 23.5 L (39.0-53.0) % MCV 97.7 (80.0-100.0) fL MCH 30.9 (25.0-35.0) pg MCHC 31.6 (31.0-37.0) g/dL RDW 17.9 H (11.5-15.5) % Plt Count 376 (150-450) k/uL MPV 8.9 Neutrophils % 84 % Lymphocytes % 8 % Monocytes % 5 % Eosinophils % 1 % Basophils % 0 % Neutrophils # 8.4 H (1.3-7.7) k/uL Lymphocytes # 0.8 L (1.0-4.8) k/uL Monocytes # 0.5 (0-1.0) k/uL Eosinophils # 0.1 (0-0.7) k/uL Basophils # 0.0 (0-0.2) k/uL Hypochromasia Slight Anisocytosis Slight Macrocytosis Slight PT 9.8 (9.0-12.0) sec INR 0.9 (<1.2) APTT 23.9 (22.0-30.0) sec Sodium 134 L (137-145) mmol/L Potassium 4.5 (3.5-5.1) mmol/L Chloride 98 (98-107) mmol/L Carbon Dioxide 27 (22-30) mmol/L Anion Gap 9 mmol/L BUN 45 H (9-20) mg/dL Creatinine 6.50 H (0.66-1.25) mg/dL Est GFR (CKD-EPI)AfAm 9 (>60 ml/min/1.73 sqM) Est GFR (CKD-EPI)NonAf 8 (>60 ml/min/1.73 sqM) Glucose 182 H (74-99) mg/dL Calcium 8.2 L (8.4-10.2) mg/dL Magnesium 1.5 L (1.6-2.3) mg/dL Total Bilirubin 0.3 (0.2-1.3) mg/dL AST 105 H (17-59) U/L ALT 24 (4-49) U/L Alkaline Phosphatase 114 (38-126) U/L Troponin I (0.000-0.034) ng/mL Total Protein 5.7 L (6.3-8.2) g/dL Albumin 3.0 L (3.5-5.0) g/dL 01/12/23 Range/Units 19:20 WBC (3.8-10.6) k/uL RBC (4.30-5.90) m/uL Hgb (13.0-17.5) gm/dL Hct (39.0-53.0) % MCV (80.0-100.0) fL MCH (25.0-35.0) pg MCHC (31.0-37.0) g/dL RDW (11.5-15.5) % Plt Count (150-450) k/uL MPV Neutrophils % % Lymphocytes % % Monocytes % % Eosinophils % % Basophils % % Neutrophils # (1.3-7.7) k/uL Lymphocytes # (1.0-4.8) k/uL Monocytes # (0-1.0) k/uL Eosinophils # (0-0.7) k/uL Basophils # (0-0.2) k/uL Hypochromasia Anisocytosis Macrocytosis PT (9.0-12.0) sec INR (<1.2) APTT (22.0-30.0) sec Sodium (137-145) mmol/L Potassium (3.5-5.1) mmol/L Chloride (98-107) mmol/L Carbon Dioxide (22-30) mmol/L Anion Gap mmol/L BUN (9-20) mg/dL Creatinine (0.66-1.25) mg/dL Est GFR (CKD-EPI)AfAm (>60 ml/min/1.73 sqM) Est GFR (CKD-EPI)NonAf (>60 ml/min/1.73 sqM) Glucose (74-99) mg/dL Calcium (8.4-10.2) mg/dL Magnesium (1.6-2.3) mg/dL Total Bilirubin (0.2-1.3) mg/dL AST (17-59) U/L ALT (4-49) U/L Alkaline Phosphatase (38-126) U/L Troponin I 13.600 H* (0.000-0.034) ng/mL Total Protein (6.3-8.2) g/dL Albumin (3.5-5.0) g/dL Disposition Clinical Impression: Acute non-ST elevation myocardial infarction (NSTEMI) Disposition: ADMITTED IP TO THIS HOSP Condition: Serious Is patient prescribed a controlled substance at d/c from ED?: No Referrals: [facility],Clinic [Primary Care Provider] - 1-2 days Time of Disposition: 21:40
[2023-01-12 20:02] LABS: Anisocytosis Slight; Basophils % (A) 0 %; Eosinophils # (A) 0.1 k/uL (0-0.7); Eosinophils % (A) 1 %; HCT 23.5 % (39.0-53.0); HGB 7.4 gm/dL (13.0-17.5); Hypochromasia Slight; Lymphocytes # (A) 0.8 k/uL (1.0-4.8); Lymphocytes % (A) 8 %; MCH 30.9 pg (25.0-35.0); MCHC 31.6 g/dL (31.0-37.0); MCV 97.7 fL (80.0-100.0); Macrocytosis Slight; Mean Platelet Volume 8.9; Monocytes # (A) 0.5 k/uL (0-1.0); Monocytes % (A) 5 %; Neutrophils # (A) 8.4 k/uL (1.3-7.7); Neutrophils % (A) 84 %; Platelet Count 376 k/uL (150-450); RDW 17.9 % (11.5-15.5)
[2023-01-12 20:03] LABS: Calcium 8.2 mg/dL (8.4-10.2); Magnesium 1.5 mg/dL (1.6-2.3); Potassium 4.5 mmol/L (3.5-5.1); Total Bilirubin 0.3 mg/dL (0.2-1.3); Total Protein 5.7 g/dL (6.3-8.2)
[2023-01-12 20:08] LABS: INR 0.9 (<1.2); Partial Thromboplastin Time 23.9 sec (22.0-30.0); Prothrombin Time 9.8 sec (9.0-12.0)
--- NOTE | 2023-01-12 20:31 | XR ---
EXAMINATION TYPE: XR chest 2V DATE OF EXAM: 01/12/2023 7:18 PM COMPARISON: Chest x-ray 12/25/2021 TECHNIQUE: XR chest 2V . CLINICAL INDICATION:Male, 72 years old with history of Chest Pain; FINDINGS: Lungs/Pleura: Small right pleural effusion with persistent right basilar airspace opacity, similar to earlier radiograph on 12/25/2021. Minimal subsegmental atelectasis in the medial left lower lobe. Pulmonary vascularity: Unremarkable. Heart/mediastinum: Cardiomediastinal silhouette is prominent in size. Atherosclerotic calcifications are seen in the aorta. Musculoskeletal: Multiple level degenerative disc disease changes seen throughout the spine. Other findings: Right internal jugular Mediport catheter in stable position. IMPRESSION: Cardiomegaly with small right pleural effusion. Persistent right lower lobe atelectasis versus lower lobe infiltrate. Overall exam is not significantly progressed from 12/25/2021.
[2023-01-12] MEDS ORDERED: HEPARIN SODIUM 1,000 UN/ML (10ML VL) IV ONE (21:40)
[2023-01-12] MEDS ORDERED: HEPARIN SOD,PORK IN 0.45% NACL 25,000 UNIT in 0.45% NACL 1 250ML.BAG IV SCH (21:45)
[2023-01-12] MEDS: ATORVASTATIN 80 MG TAB PO SCH (21:58)
[2023-01-12] MEDS: NITROGLYCERIN SL TABS 0.4 MG TAB SUBLINGUAL PRN ×2 (22:13→23:08)
[2023-01-12] MEDS: NITROGLYCERIN OINT 1 INCH/GM PACKET TOPICAL SCH (23:18)
--- NOTE | 2023-01-13 01:30 | P.HPIM ---
History of Present Illness H&P Date: 01/12/23 Chief Complaint: chest pain 72 year year old male with chronic kidney disease on peritoneal dialysis , DM , hypertension he is coming in for chest pain that has started the night before while sleeping, he describes severe squeezing pain central chest radiates to the left side, jaw and left arm. pain rated 8-9/10 in severity , associated with feeling dizzy, tired, profuse sweating, nauseated , no vomiting. and shortness of breath, pain is resolved by nitro. patient did not want to come to the hospital , but kept getting recurrent episodes throughout the day and finally decided to come in . he does have history of CAD s/p stents > 1 year ago, he takes aspirin and statin at home. no recent travel , no history of blood clots. he is not on blood thinners at home. he denies any leg swelling, fever, chills, cough, URI symptoms, no GI bleeding he does peritoneal dialysis at night , and sometimes throughout the day he also reports dysuria and lower abd discomfort. he admits to daily heavy smoking Review of Systems Pertinent positives as noted in HPI. All other systems were reviewed and are negative Past Medical History Past Medical History: Coronary Artery Disease (CAD), Chest Pain / Angina, Heart Failure, COPD, Diabetes Mellitus, Dialysis, GERD/Reflux, GI Bleed, Hyperlipidemia, Hypertension, Myocardial Infarction ([place]), Pneumonia, Renal Disease, Vascular Disorder Additional Past Medical History / Comment(s): Lower GI bleeds/suspect micro bleeds in intestine, occasional abdominal bloating, IDDM type II, neuropathy bilateral feet, ESRD with peritoneal dialysis ((cycler at night for 5 hours), past hemodialysis/spouse states she was told L upper arm fistula is plugged again, chronic anemia/transfusion of blood/iron, past partial SBO, benign colon polyps, chronic low back pain with bilateral sciatica, PVD, RLS, vertigo, insomnia, 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 Last Myocardial Infarction Date:: 03/2020 History of Any Multi-Drug Resistant Organisms: None Reported Past Surgical History: Cholecystectomy, Heart Catheterization With Stent Additional Past Surgical History / Comment(s): 03/25/20 R sublclavian mediport, R carotid stent done in [place], EGD/colonoscopy, endoscopic capsule, ORIF left wrist, aortagram, bilateral leg revascularizations/stents, left upper arm fistula and on 12/15/21 had thrombectomy balloon angioplasty of L arm fistula, peritoneal dialysis catheter removal and insertion (11/23/21). Past Anesthesia/Blood Transfusion Reactions: No Reported Reaction Additional Past Anesthesia/Blood Transfusion Reaction / Comment(s): Pt has had multiple blood transfusions without reaction. Date of Last Stent Placement:: 03/2021 Past Psychological History: PTSD Smoking Status: Current every day smoker Past Alcohol Use History: None Reported Past Drug Use History: None Reported - Past Family History Father History Unknown: Yes Mother Family Medical History: Cancer Additional Family Medical History / Comment(s): Mother from metastatic cancer pelvic origin. Medications and Allergies Home Medications Medication Instructions Recorded Confirmed Type Ergocalciferol (Vitamin D2) 1,250 mcg PO Q14D 07/18/17 01/12/23 History [Vitamin D2] Aspirin EC [Ecotrin Low Dose] 81 mg PO HS 02/10/18 01/12/23 History DULoxetine HCL [Cymbalta] 20 mg PO HS 10/27/20 01/12/23 History Melatonin 5 mg PO HS 12/19/20 01/12/23 History Sennosides-Docusate Sodium 2 tab PO TID 12/31/20 01/12/23 History [Senokot-S] Gabapentin [Neurontin] 100 mg PO TID 01/23/21 01/12/23 History Nitroglycerin Sl Tabs [Nitrostat] 0.4 mg SL Q5M PRN 01/23/21 01/12/23 History rOPINIRole HCL [Requip] 0.5 mg PO TID 01/23/21 01/12/23 History Furosemide [Lasix] 80 mg PO DAILY 02/17/21 01/12/23 History Atorvastatin [Lipitor] 20 mg PO HS 05/08/21 01/12/23 History Ondansetron [Zofran] 4 mg PO DAILY PRN 05/08/21 01/12/23 History oxyBUTYnin chloride [Ditropan] 5 mg PO HS 06/28/21 01/12/23 History Lactulose [Constulose] 10 gm PO DAILY PRN 11/12/21 01/12/23 History Nephro-Deepa 1 tab PO DAILY 11/12/21 01/12/23 History Omeprazole 80 mg PO BID 11/12/21 01/12/23 History carvediloL [Coreg] 6.25 mg PO DAILY 11/22/21 01/12/23 History Cyanocobalamin [Vitamin B-12] 1,000 mcg PO DAILY 12/14/21 01/12/23 History Midodrine HCl 5 mg PO BID PRN 11/29/22 01/12/23 History Potassium Chloride 20 meq PO DAILY 11/29/22 01/12/23 History Ranolazine [Ranexa] 500 mg PO BID 11/29/22 01/12/23 History Insulin Glargine,Hum.rec.anlog 20 units SQ HS 01/12/23 01/12/23 History [Lantus Solostar Pen] Isosorbide Mononitrate ER [Imdur] 60 mg PO DAILY 01/12/23 01/12/23 History Sodium Bicarbonate Tab 650 mg PO DAILY 01/12/23 01/12/23 History Allergies Allergy/AdvReac Type Severity Reaction Status Date / Time Iodinated Contrast Media AdvReac CAN'T Verified 01/12/23 22:01 TAKE, RENAL DISEASE Iodine and Iodide Containing AdvReac CAN'T Verified 01/12/23 22:01 Produc TAKE, RENAL DISEASE Physical Exam Vitals: Vital Signs Temp Pulse Resp BP Pulse Ox 01/12/23 22:12 73 22 126/80 100 01/12/23 21:00 87 14 99 01/12/23 20:30 66 100 01/12/23 20:00 67 99 01/12/23 19:32 72 18 144/62 99 01/12/23 19:30 76 16 144/62 01/12/23 19:00 74 14 141/60 01/12/23 18:36 98.5 F 84 22 135/57 100 Intake and Output 01/12/23 01/12/23 01/12/23 06:59 14:59 22:59 Other: Weight 81.647 kg Constitutional: still reporting some discomfort in the chest , better than earlier, conversant, pleasant Eyes: Anicteric sclerae, moist conjunctiva, Pupils equal round reactive to light ENMT: NC/AT Oropharynx clear, no erythema, or exudates Neck: Supple, no masses, or JVD No carotid bruits No thyromegaly Lungs: Clear to auscultation Clear to percussion Normal respiratory effort, no accessory muscle use Cardiovascular: Heart regular in rate and rhythm, No murmurs, gallops, or rubs No peripheral edema Abdominal: Soft, peritoneal dialysis cath inthe right LQ, no surrounding erythema or induration tenderness to deep palpation suprapubic region, no guarding, rebound or rigidity Abdomen moving with respiration Normoactive bowel sounds No hepatomegaly, No splenomegaly No palpable mass No abdominal wall hernia noted Skin: Normal temperature, tone, texture, turgor Extremities: No digital cyanosis No clubbing Pedal pulses intact and symmetrical Radial pulses intact and symmetrical No calf tenderness Psychiatric: Alert and oriented to person, place and time Appropriate affect Neuro Muscles Strength 5/5 in all 4 extremities Sensation to light touch grossly present throughout Cranial nerves II-XII grossly intact Lymphatics: no palpable cervical or supraclavicular lymph nodes Results CBC & Chem 7: 01/12/23 19:20 01/12/23 19:20 Labs: Abnormal Lab Results - Last 24 Hours (Table) 01/12/23 01/12/23 01/12/23 Range/Units 19:20 19:20 19:20 RBC 2.40 L (4.30-5.90) m/uL Hgb 7.4 L (13.0-17.5) gm/dL Hct 23.5 L (39.0-53.0) % RDW 17.9 H (11.5-15.5) % Neutrophils # 8.4 H (1.3-7.7) k/uL Lymphocytes # 0.8 L (1.0-4.8) k/uL Sodium 134 L (137-145) mmol/L BUN 45 H (9-20) mg/dL Creatinine 6.50 H (0.66-1.25) mg/dL Glucose 182 H (74-99) mg/dL Calcium 8.2 L (8.4-10.2) mg/dL Magnesium 1.5 L (1.6-2.3) mg/dL AST 105 H (17-59) U/L Troponin I 13.600 H* (0.000-0.034) ng/mL Total Protein 5.7 L (6.3-8.2) g/dL Albumin 3.0 L (3.5-5.0) g/dL Assessment and Plan Assessment: 72 year old male with multiple comorbidities, CAD, DM , CKD on peritoneal dialysis , coming in for chest pain , I discussed the case with ED doc, patient having elevated trops, and chest pain, I accepted the admission for NSTEMI and further cardiac workup with anticipated length of stay > 2 midnights NSTEMI CAD s/p stents manager monitoring monitor vital signs nitro paste aspirin 325 mg po daily atorvastatin 40 mg po daily resume home cardiac mets cardiology consult trend trops , initial elevated 13 heparin drip ACS protocol suprapubic pain and dysuria , rule out UTI check UA if patient starts spiking fever, or WBC becomes elevated, then culture peritoneal fluids currently WBC 10 , afebrile chronic conditions chronic anemia , Hgb 7.4 denies bleeding most likely secondary to chronic disease CKD bun 45 , cr 6.5 continue peritoneal dialysis nephrology consult full code DVT PPX currently on heparin drip for ACS
--- NOTE | 2023-01-13 01:32 | P.EN ---
notified by RN , patient having increasing chest pain despite nitro, trops trending up. vital signs stable repeat EKG , showed elevated ST on lead V4 and more peaked T wave on lead V2-3 attempted to contact cardiology community relations manager to discuss EKG , could not be reached STEMI alert activated.
[2023-01-13 01:35] LABS: Glucose,Whole Blood 129 mg/dL (70-110)
[2023-01-13] MEDS: NITROGLYCERIN SL TABS 0.4 MG TAB SUBLINGUAL PRN (01:40)
[2023-01-13] MEDS ORDERED: VERAPAMIL 2.5 MG/ML 2 ML AMP ONE (01:52)
[2023-01-13] MEDS ORDERED: IV FLUID CONTINUATION 1,000 ML IV ONE (02:05)
[2023-01-13] MEDS ORDERED: fentaNYL (PF) 50 MCG/ML 2 ML AMP ONE (02:10)
[2023-01-13] MEDS ORDERED: LIDOCAINE 1% INJ 10MG/ML (5 ML VIAL-PF) SQ ONE (02:11)
[2023-01-13] MEDS: fentaNYL (PF) 50 MCG/ML 2 ML AMP IV ONE ×2 (02:15→02:30)
[2023-01-13] MEDS ORDERED: HYDROmorphone 0.5 MG/0.5 ML SYRINGE IVP ONE (02:38)
--- NOTE | 2023-01-13 02:42 | P.PN ---
Progress Note - Text Update Twelve-lead EKG is reviewed Sinus mechanism normal MA interval no ST elevation in the inferior leads No clear cut ST elevations consistent with acute myocardial infarction. The ST segment abnormality in V4 is evident but his isolated only to V4 Likely non-Q-wave myocardial infarction given the troponins Coronary angiography does not reveal any occlusive disease in the LAD territory Progression of disease in the stented lesions in the RCA which does not correspond to changes in the precordial leads In the Locate Technician. Noted spontaneous left bundle branch block transitions from narrow QRS on EKG Diagnosis Non-ST segment elevation ND based on chest discomfort and EKG changes No occlusive disease noted in the left coronary system Mild progression of disease in the RCA, prior stents in the RCA, heavily calcified On-call pager system tested, not receiving any pages. Did not receive a test page from the ER Did not receive a test page from the answering service Patient reset by [facility] answering service and on-call paging system functioning normally
[2023-01-13] MEDS ORDERED: CLOPIDOGREL 75 MG TAB PO ONE (02:47)
[2023-01-13] MEDS ORDERED: CLOPIDOGREL 75 MG TAB ONE (02:48)
[2023-01-13] MEDS ORDERED: IOPAMIDOL-370 100ML BTL INJ ONE ×2 (02:50→03:03)
[2023-01-13] MEDS ORDERED: RX INFO: IV CONTRAST WAS GIVEN 1 EACH MISC MISCELLANE PRN (03:10)
[2023-01-13] MEDS ORDERED: ZOLPIDEM 5 MG TAB PO PRN (03:10)
[2023-01-13] MEDS ORDERED: ATROPINE SULFATE 0.1 MG/ML 10ML SYRINGE IV PRN (03:10)
[2023-01-13] MEDS ORDERED: MAG HYDROX/AL HYDROX/SIMETH 30 ML CUP PO PRN (03:10)
[2023-01-13] MEDS ORDERED: NITROGLYCERIN SL TABS 0.4 MG TAB SUBLINGUAL PRN (03:10)
[2023-01-13] MEDS ORDERED: ONDANSETRON 4 MG/2 ML VIAL ONE (03:14)
[2023-01-13] MEDS ORDERED: SODIUM CHLORIDE 0.9% 1,000 ML in EMPTY BAG 1 BAG IV SCH (03:15)
[2023-01-13] MEDS ORDERED: ONDANSETRON 4 MG/2 ML VIAL IVP ONE (03:20)
--- NOTE | 2023-01-13 03:25 | P.PCN ---
Date of Procedure: 01/13/23 Operative Findings: CARDIAC CATHETERIZATION AND PERCUTANEOUS CORONARY INTERVENTION PERFORMING PHYSICIAN: Bobby Stone MD, [facility] PROCEDURE PERFORMED: 1. Selective right and left coronary angiogram 2. Left heart catheterization 3. Successful stenting of distal RCA using 3.5 x 23 mm Xience OTILIA with an excellent angiographic results 4. Successful stenting of the mid RCA using 4.0 x 15 mm Xience OTILIA with an excellent angiographic results 5. Adjunctive use of cardiac imaging using IVUS 6. Selective right common femoral artery angiogram INDICATION: Acute non-ST elevation myocardial infarction in this 72-year-old gentleman who is known to have CAD with prior stenting of the RCA and also known to have PAD with prior angioplasty as well. He also does have hypertension and dyslipidemia and end-stage renal disease on dialysis. 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 The right common femoral artery was cannulated using micropuncture technique, the micropuncture wire passed easily then I placed a 6-Icelandic sheath at the right common femoral artery. Subsequently selective right and left coronary angiogram performed using JR4 and JL4 catheters. Left heart catheterization was performed using 6-Icelandic pigtail catheter after intervention on the RCA was performed. After that I did intervene on the RCA. The procedure was completed was no complication. By then I did selective right common femoral artery angiogram. SELECTIVE CORONARY ANGIOGRAM: The right coronary artery: large-caliber vessel and super dominant vessel. The mid and distal RCA appears to be severely diseased with a lesion up to about 80% appears to be hazy and likely represent plaque rupture and thrombus formation. Left main: appeared to have mild disease only. Bifurcates into an LCx and LAD The left circumflex: large caliber vessel nondominant vessel. The LCx appears to have mild disease only. Gives rises into an OM1 which appeared to have mild disease only. The left anterior descending artery: the proximal LAD appeared to have mild disease only. The mid LAD also has mild disease only. The LAD does not reach the apex. It gives rises into a diagonal branch which appears to be possibly occluded distally. It becomes a small caliber vessel at that point HEMODYNAMICS: The LVEDP was 23 mmHg was no significant gradient across aortic valve PCI OF THE RCA: Anticoagulation was initiated using heparin was continuous ACT monitoring. Subsequently and at the beginning I did exchange my 11 cm 6-Icelandic short sheath into a 23 cm 6-Icelandic sheath using the 035 wire. The reason aortoiliac was extremely tortuous with significant friction advancing the diagnostic catheter. After that I did engage the RCA using an a.l. 0.75 guiding catheter. I did wire the RCA using a run-through wire. I did intravascular ultrasound which showed a diameter of the RCA distally about 3.5 mm and that the mid that about 4.0 mm. Predilatation was performed using 3 mm balloon which was inflated in the distal and midportion of the right coronary artery. After that I deployed distally 3.5 x 23 mm stent where the stent was positioned under fluoroscopy guidance and deployed under its nominal pressure. For the midportion I deployed a 4.0 x 15 mm stent where the stent again was positioned under fluoroscopy guidance and deployed under 14 allyson for 20 seconds. I did review his guide liner to be able to deliver the stent. Final angiogram was performed and showed an excellent angiographic results and the procedure was completed was no complication. By the end I did exchange my long sheath now into short sheath using 035 wire before I did selective right common femoral artery angiogram. The procedure was completed was no complication CONCLUSION: 1. Acute non-ST elevation myocardial infarction in this 72-year-old gentleman who is known to have CAD was prior stenting of the RCA 2. Severe disease involving the mid and distal RCA with a plaque rupture and thrombus formation. I did perform successful stenting of the distal and mid RCA as described above 3. Elevated left-sided filling pressure POSTPROCEDURE MANAGEMENT: 1. Dual antiplatelet therapy using aspirin and Plavix for 12 month 2. Aggressive cholesterol control 3. Follow-up with the patient
[2023-01-13] MEDS: NITROGLYCERIN OINT 1 INCH/GM PACKET TOPICAL SCH ×4 (06:12→23:42)
[2023-01-13 06:45] LABS: Glucose,Whole Blood 166 mg/dL (70-110)
[2023-01-13] MEDS: INSULIN ASPART (NovoLOG) 100 UNIT/ML VIAL SQ SCH ×4 (06:58→21:06)
[2023-01-13] MEDS: carvediloL 6.25 MG TAB PO SCH (08:48)
[2023-01-13] MEDS: METOPROLOL TARTRATE 25 MG TAB PO SCH ×2 (08:48→21:06)
[2023-01-13] MEDS: ASPIRIN 325 MG TAB PO SCH ×2 (08:48→09:06)
[2023-01-13] MEDS: PANTOPRAZOLE 40 MG TABLET PO SCH ×2 (08:48→21:04)
[2023-01-13] MEDS: ATORVASTATIN 80 MG TAB PO SCH (08:48)
[2023-01-13] MEDS: SODIUM BICARBONATE TAB 650 MG TAB PO SCH (08:49)
[2023-01-13] MEDS: EZETIMIBE 10 MG TAB PO SCH (09:13)
[2023-01-13] MEDS: ASPIRIN 81 MG PO SCH (09:14)
[2023-01-13 09:16] LABS: Chol/HDL Ratio 2.56 Ratio
[2023-01-13] MEDS: RIVAROXABAN 2.5 MG TABLET PO SCH ×2 (09:20→21:02)
[2023-01-13 10:04] LABS: Anisocytosis Slight; Basophils % (A) 0 %; Eosinophils % (A) 0 %; HCT 23.4 % (39.0-53.0); HGB 7.2 gm/dL (13.0-17.5); Hypochromasia Marked; Lymphocytes # (A) 0.7 k/uL (1.0-4.8); Lymphocytes % (A) 4 %; MCH 31.2 pg (25.0-35.0); MCHC 30.9 g/dL (31.0-37.0); MCV 100.8 fL (80.0-100.0); Macrocytosis Moderate; Mean Platelet Volume 9.9; Monocytes # (A) 0.8 k/uL (0-1.0); Monocytes % (A) 4 %; Neutrophils # (A) 17.1 k/uL (1.3-7.7); Neutrophils % (A) 91 %; Platelet Count 335 k/uL (150-450); RBC 2.32 m/uL (4.30-5.90); RDW 17.9 % (11.5-15.5); WBC 18.8 k/uL (3.8-10.6)
--- NOTE | 2023-01-13 10:11 | P.NPCON ---
History of Present Illness - Reason for Consult Consult date: 01/13/23 end stage renal disease - Chief Complaint Acute HI - History of Present Illness This is a 72-year-old male known to us with ESRD on dialysis 30 Dialysis on a cycler for the last few years. Came in with chest pain and had acute HI and underwent cardiac cath this morning and had 2 stents in the right coronary artery. Currently he is feeling fairly well no chest pain no shortness of breath. Does have a poor appetite though. No nausea vomiting no abdominal pain no pain in his feet Patient known with coronary artery disease, diabetes, COPD, peripheral vascular disease. In the past has had partial small bowel obstruction. Currently he is afebrile with vital signs stable, blood pressure in the 110s to 120s systolic heart rate in the 80s afebrile Past Medical History Past Medical History: Coronary Artery Disease (CAD), Chest Pain / Angina, Heart Failure, COPD, Diabetes Mellitus, Dialysis, GERD/Reflux, GI Bleed, Hyperlipidemia, Hypertension, Myocardial Infarction (HI), Pneumonia, Renal Disease, Vascular Disorder Additional Past Medical History / Comment(s): Lower GI bleeds/suspect micro bleeds in intestine, occasional abdominal bloating, IDDM type II, neuropathy bilateral feet, ESRD with peritoneal dialysis ((cycler at night for 5 hours), past hemodialysis/spouse states she was told L upper arm fistula is plugged again, chronic anemia/transfusion of blood/iron, past partial SBO, benign colon polyps, chronic low back pain with bilateral sciatica, PVD, RLS, vertigo, insomnia, 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 Last Myocardial Infarction Date:: 03/2020 History of Any Multi-Drug Resistant Organisms: None Reported Past Surgical History: Cholecystectomy, Heart Catheterization With Stent Additional Past Surgical History / Comment(s): 03/25/20 R sublclavian mediport, R carotid stent done in [place], EGD/colonoscopy, endoscopic capsule, ORIF left wrist, aortagram, bilateral leg revascularizations/stents, left upper arm fistula and on 12/15/21 had thrombectomy balloon angioplasty of L arm fistula, peritoneal dialysis catheter removal and insertion (11/23/21). Past Anesthesia/Blood Transfusion Reactions: No Reported Reaction Additional Past Anesthesia/Blood Transfusion Reaction / Comment(s): Pt has had multiple blood transfusions without reaction. Date of Last Stent Placement:: 03/2021 Past Psychological History: PTSD Additional Psychological History / Comment(s): Pt resides with his spouse. He has a cane and 2 mobility scooters. 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 He does not drive, his spouse drives and organizes his meds for [employer]. Smoking Status: Current every day smoker Past Alcohol Use History: None Reported Additional Past Alcohol Use History / Comment(s): Pt started smoking in 1964 and is a 1 ppd smoker. Past Drug Use History: None Reported Additional Drug Use History / Comment(s): Occasional Marijuana use. - Past Family History Father History Unknown: Yes Mother Family Medical History: Cancer Additional Family Medical History / Comment(s): Mother from metastatic cancer pelvic origin. Medications and Allergies Home Medications Medication Instructions Recorded Confirmed Type Ergocalciferol (Vitamin D2) 1,250 mcg PO Q14D 07/18/17 01/12/23 History [Vitamin D2] Aspirin EC [Ecotrin Low Dose] 81 mg PO HS 02/10/18 01/12/23 History DULoxetine HCL [Cymbalta] 20 mg PO HS 10/27/20 01/12/23 History Melatonin 5 mg PO HS 12/19/20 01/12/23 History Sennosides-Docusate Sodium 2 tab PO TID 12/31/20 01/12/23 History [Senokot-S] Gabapentin [Neurontin] 100 mg PO TID 01/23/21 01/12/23 History Nitroglycerin Sl Tabs [Nitrostat] 0.4 mg SL Q5M PRN 01/23/21 01/12/23 History rOPINIRole HCL [Requip] 0.5 mg PO TID 01/23/21 01/12/23 History Furosemide [Lasix] 80 mg PO DAILY 02/17/21 01/12/23 History Atorvastatin [Lipitor] 20 mg PO HS 05/08/21 01/12/23 History Ondansetron [Zofran] 4 mg PO DAILY PRN 05/08/21 01/12/23 History oxyBUTYnin chloride [Ditropan] 5 mg PO HS 06/28/21 01/12/23 History Lactulose [Constulose] 10 gm PO DAILY PRN 11/12/21 01/12/23 History Nephro-Deepa 1 tab PO DAILY 11/12/21 01/12/23 History Omeprazole 80 mg PO BID 11/12/21 01/12/23 History carvediloL [Coreg] 6.25 mg PO DAILY 11/22/21 01/12/23 History Cyanocobalamin [Vitamin B-12] 1,000 mcg PO DAILY 12/14/21 01/12/23 History Midodrine HCl 5 mg PO BID PRN 11/29/22 01/12/23 History Potassium Chloride 20 meq PO DAILY 11/29/22 01/12/23 History Ranolazine [Ranexa] 500 mg PO BID 11/29/22 01/12/23 History Insulin Glargine,Hum.rec.anlog 20 units SQ HS 01/12/23 01/12/23 History [Lantus Solostar Pen] Isosorbide Mononitrate ER [Imdur] 60 mg PO DAILY 01/12/23 01/12/23 History Sodium Bicarbonate Tab 650 mg PO DAILY 01/12/23 01/12/23 History Allergies Allergy/AdvReac Type Severity Reaction Status Date / Time Iodinated Contrast Media AdvReac CAN'T Verified 01/12/23 22:01 TAKE, RENAL DISEASE Iodine and Iodide Containing AdvReac CAN'T Verified 01/12/23 22:01 Produc TAKE, RENAL DISEASE Physical Exam Vitals: Vital Signs Temp Pulse Pulse Resp BP BP Pulse Ox 01/13/23 10:00 77 14 113/55 97 01/13/23 09:00 87 20 118/59 01/13/23 08:00 98 F 83 18 123/58 98 01/13/23 04:00 97.4 F L 99 14 132/66 92 L 01/13/23 01:45 84 20 134/66 100 01/13/23 01:40 85 17 154/70 100 01/13/23 01:35 86 22 120/66 01/13/23 01:30 93 11 L 135/74 100 01/13/23 01:10 89 43 H 135/70 94 L 01/13/23 01:05 93 22 135/70 89 L 01/13/23 01:00 96 23 139/60 99 01/13/23 00:55 87 12 139/60 97 01/13/23 00:50 86 14 139/60 97 01/13/23 00:45 73 15 139/60 98 01/13/23 00:40 85 25 H 139/70 99 01/13/23 00:35 87 22 139/70 99 01/13/23 00:30 87 0 L 139/70 100 01/13/23 00:25 86 38 H 139/70 98 01/13/23 00:20 85 35 H 151/68 98 01/13/23 00:15 89 15 151/68 96 01/13/23 00:10 85 38 H 151/68 99 01/13/23 00:05 80 42 H 151/68 97 01/13/23 00:03 76 38 H 151/68 98 01/13/23 00:00 84 19 148/71 99 01/12/23 23:07 93 22 138/72 99 01/12/23 23:00 95 19 126/80 85 L 01/12/23 22:12 73 22 126/80 100 01/12/23 22:00 81 20 100 01/12/23 21:00 87 14 99 01/12/23 20:30 66 100 01/12/23 20:00 67 99 01/12/23 19:32 72 18 144/62 99 01/12/23 19:30 76 16 144/62 01/12/23 19:00 74 14 141/60 01/12/23 18:36 98.5 F 84 22 135/57 100 Intake and Output 01/12/23 01/13/23 01/13/23 22:59 06:59 14:59 Intake Total 300 220 Output Total 250 175 Balance 50 45 Intake: IV 150 Intake, IV Titration 150 100 Amount Sodium Chloride 0.9% 1, 150 100 000 ml In Empty Bag 1 bag @ 75 mls/hr IV .[id number] [facility] Rx#:[id number] Oral 120 Output: Urine 250 175 Other: Voiding Method Urinal Urinal Weight 81.647 kg 82.5 kg Awake alert oriented comfortable A chin exam no JVP neck is supple no facial asymmetry Lungs clear to auscultation good air entry Heart sounds unremarkable Normal sinus rhythm Abdomen soft, tenderness in the right upper quadrant. No masses felt Exit site of PD catheter clean Extremity exam was no edema Neurologically awake alert oriented Results - Lab Results Most recent lab results Calcium 8.2 mg/dL (8.4-10.2) L 01/12/23 19:20 Magnesium 1.5 mg/dL (1.6-2.3) L 01/12/23 19:20 01/13/23 09:49 01/12/23 19:20 Assessment and Plan Plan: Impression 1. ESRD on peritoneal dialysis at home with a cycler. Etiology is diabetic nephropathy. Dialysis at about 2 years ago. 2. Admitted with chest pain acute HI is post cardiac cath 01/13/2023 with 2 stents in the RCA 3. Anemia rule out iron deficiency 4. History of diabetes mellitus 5. History of small bowel obstructions the past Recommendation 1. Start peritoneal dialysis 2000 mL 1.5% 4 exchanges a day. 2. Check iron saturation, phosphorus 3. Start Aranesp 60 g every week subcutaneous 4. Watch her pressure, hemoglobin.
[2023-01-13 10:19] LABS: ALT 24 U/L (4-49); AST 77 U/L (17-59); African American GFR (CKD) 8 (>60 ml/min/1.73 sqM); Albumin 2.7 g/dL (3.5-5.0); Alkaline Phosphatase 94 U/L (38-126); Anion Gap 9 mmol/L; Blood Urea Nitrogen 46 mg/dL (9-20); Carbon Dioxide 27 mmol/L (22-30); Chloride 100 mmol/L (98-107); Glucose 118 mg/dL (74-99); Non-African American GFR(CKD) 7 (>60 ml/min/1.73 sqM); Potassium 4.9 mmol/L (3.5-5.1); Sodium 136 mmol/L (137-145); Total Bilirubin 0.4 mg/dL (0.2-1.3); Total Protein 5.3 g/dL (6.3-8.2)
[2023-01-13 10:46] LABS: Phosphorus 4.7 mg/dL (2.5-4.5)
--- NOTE | 2023-01-13 11:08 | P.CRDCN ---
History of Present Illness Consult date: 01/13/23 History of present illness: The patient is a 72-year-old male who presented to the emergency room with acute onset of chest discomfort and shortness of breath. EKG revealed ST elevations in leads V2-4. Troponin elevation of 13.6, 14.5, and 17.7. Coronary angiogram revealed severe disease in the mid and distal RCA, noted to be plaque rupture and thrombus. 2 coronary stents were placed. DIAGNOSTICS: EKG showed ST elevations in V2 through V6 Chest x-ray shows cardiomegaly with small right pleural effusion Lab data: WBC 18.8, hemoglobin 7.2, hematocrit 23.4, platelet 335, sodium 136, potassium 4.9, BUN 46, creatinine 6.96, magnesium 1.5, AST 77, ALT 24, triglyce rides 113, LDL 36, HDL 37 PAST MEDICAL HISTORY: Coronary artery disease, end-stage renal disease on peritoneal dialysis, dyslipidemia, peripheral vascular disease REVIEW OF SYSTEMS: No fever or chills. No cough or expectoration. No diaphoresis. Patient denies headache, dizziness, blurred vision, double vision. Patient denies any stomach discomfort. No nausea, vomiting. No hematochezia. No hematemesis. Denies any black stools or blood in his stools. Denies dysuria or hematuria. No muscle weakness or numbness. Denies chest pain or chest pressure. No dyspnea PHYSICAL EXAMINATION: This is a 72-year-old male in no apparent distress at the time of my examination. HEENT: Head is atraumatic, normocephalic. Pupils are equal, round. Sclerae anicteric. Conjunctivae are clear. Mucous membranes of the mouth are moist. Neck is supple. There is no jugular venous distention. No carotid bruit is heard. CHEST EXAMINATION: Lungs are coarse to auscultation. No chest wall tenderness is noted on palpation or with deep breathing. Bilateral inspiratory wheezes. HEART EXAMINATION: Heart regular rate and rhythm. S1, S2 heard. No murmurs, gallops or rub. ABDOMEN: Soft, nontender. Bowel sounds are heard. No organomegaly noted. EXTREMITIES: 2+ peripheral pulses with no evidence of peripheral edema and no calf tenderness noted. NEUROLOGIC EXAMINATION: Patient is awake, alert and oriented x3. FINAL ASSESSMENT AND PLAN: ST elevated myocardial infarction Status post stenting of the RCA End-stage renal disease on peritoneal dialysis Dyslipidemia History of peripheral vascular disease Current smoker PLAN: Add Zetia to current regimen Start Xarelto 2-1/2 mg twice daily Continue triple therapy for 1 month, then discontinue low-dose aspirin Echocardiogram and Doppler studies Further recommendations to be based on clinical course I am dictating on behalf of Dr Devon Munguia's history/physical and assessment/plan. Past Medical History Past Medical History: Coronary Artery Disease (CAD), Chest Pain / Angina, Heart Failure, COPD, Diabetes Mellitus, Dialysis, GERD/Reflux, GI Bleed, Hyperlipidemia, Hypertension, Myocardial Infarction (MS), Pneumonia, Renal Disease, Vascular Disorder Additional Past Medical History / Comment(s): Lower GI bleeds/suspect micro bleeds in intestine, occasional abdominal bloating, IDDM type II, neuropathy bilateral feet, ESRD with peritoneal dialysis ((cycler at night for 5 hours), past hemodialysis/spouse states she was told L upper arm fistula is plugged again, chronic anemia/transfusion of blood/iron, past partial SBO, benign colon polyps, chronic low back pain with bilateral sciatica, PVD, RLS, vertigo, insomnia, 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 Last Myocardial Infarction Date:: 03/2020 History of Any Multi-Drug Resistant Organisms: None Reported Past Surgical History: Cholecystectomy, Heart Catheterization With Stent Additional Past Surgical History / Comment(s): 03/25/20 R sublclavian mediport, R carotid stent done in [place], EGD/colonoscopy, endoscopic capsule, ORIF left wrist, aortagram, bilateral leg revascularizations/stents, left upper arm fistula and on 12/15/21 had thrombectomy balloon angioplasty of L arm fistula, peritoneal dialysis catheter removal and insertion (11/23/21). Past Anesthesia/Blood Transfusion Reactions: No Reported Reaction Additional Past Anesthesia/Blood Transfusion Reaction / Comment(s): Pt has had multiple blood transfusions without reaction. Date of Last Stent Placement:: 03/2021 Past Psychological History: PTSD Additional Psychological History / Comment(s): Pt resides with his spouse. He has a cane and 2 mobility scooters. 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 He does not drive, his spouse drives and organizes his meds for him. Smoking Status: Current every day smoker Past Alcohol Use History: None Reported Additional Past Alcohol Use History / Comment(s): Pt started smoking in 1964 and is a 1 ppd smoker. Past Drug Use History: None Reported Additional Drug Use History / Comment(s): Occasional Marijuana use. - Past Family History Father History Unknown: Yes Mother Family Medical History: Cancer Additional Family Medical History / Comment(s): Mother from metastatic cancer pelvic origin. Medications and Allergies Home Medications Medication Instructions Recorded Confirmed Type Ergocalciferol (Vitamin D2) 1,250 mcg PO Q14D 07/18/17 01/12/23 History [Vitamin D2] Aspirin EC [Ecotrin Low Dose] 81 mg PO HS 02/10/18 01/12/23 History DULoxetine HCL [Cymbalta] 20 mg PO HS 10/27/20 01/12/23 History Melatonin 5 mg PO HS 12/19/20 01/12/23 History Sennosides-Docusate Sodium 2 tab PO TID 12/31/20 01/12/23 History [Senokot-S] Gabapentin [Neurontin] 100 mg PO TID 01/23/21 01/12/23 History Nitroglycerin Sl Tabs [Nitrostat] 0.4 mg SL Q5M PRN 01/23/21 01/12/23 History rOPINIRole HCL [Requip] 0.5 mg PO TID 01/23/21 01/12/23 History Furosemide [Lasix] 80 mg PO DAILY 02/17/21 01/12/23 History Atorvastatin [Lipitor] 20 mg PO HS 05/08/21 01/12/23 History Ondansetron [Zofran] 4 mg PO DAILY PRN 05/08/21 01/12/23 History oxyBUTYnin chloride [Ditropan] 5 mg PO HS 06/28/21 01/12/23 History Lactulose [Constulose] 10 gm PO DAILY PRN 11/12/21 01/12/23 History Nephro-Deepa 1 tab PO DAILY 11/12/21 01/12/23 History Omeprazole 80 mg PO BID 11/12/21 01/12/23 History carvediloL [Coreg] 6.25 mg PO DAILY 11/22/21 01/12/23 History Cyanocobalamin [Vitamin B-12] 1,000 mcg PO DAILY 12/14/21 01/12/23 History Midodrine HCl 5 mg PO BID PRN 11/29/22 01/12/23 History Potassium Chloride 20 meq PO DAILY 11/29/22 01/12/23 History Ranolazine [Ranexa] 500 mg PO BID 11/29/22 01/12/23 History Insulin Glargine,Hum.rec.anlog 20 units SQ HS 01/12/23 01/12/23 History [Lantus Solostar Pen] Isosorbide Mononitrate ER [Imdur] 60 mg PO DAILY 01/12/23 01/12/23 History Sodium Bicarbonate Tab 650 mg PO DAILY 01/12/23 01/12/23 History Allergies Allergy/AdvReac Type Severity Reaction Status Date / Time Iodinated Contrast Media AdvReac CAN'T Verified 01/12/23 22:01 TAKE, RENAL DISEASE Iodine and Iodide Containing AdvReac CAN'T Verified 01/12/23 22:01 Produc TAKE, RENAL DISEASE Physical Exam Vitals: Vital Signs Temp Pulse Pulse Resp BP BP Pulse Ox 01/13/23 10:00 77 14 113/55 97 01/13/23 09:00 87 20 118/59 01/13/23 08:00 98 F 83 18 123/58 98 01/13/23 04:00 97.4 F L 99 14 132/66 92 L 01/13/23 01:45 84 20 134/66 100 01/13/23 01:40 85 17 154/70 100 01/13/23 01:35 86 22 120/66 01/13/23 01:30 93 11 L 135/74 100 01/13/23 01:10 89 43 H 135/70 94 L 01/13/23 01:05 93 22 135/70 89 L 01/13/23 01:00 96 23 139/60 99 01/13/23 00:55 87 12 139/60 97 01/13/23 00:50 86 14 139/60 97 01/13/23 00:45 73 15 139/60 98 01/13/23 00:40 85 25 H 139/70 99 01/13/23 00:35 87 22 139/70 99 01/13/23 00:30 87 0 L 139/70 100 01/13/23 00:25 86 38 H 139/70 98 01/13/23 00:20 85 35 H 151/68 98 01/13/23 00:15 89 15 151/68 96 01/13/23 00:10 85 38 H 151/68 99 01/13/23 00:05 80 42 H 151/68 97 01/13/23 00:03 76 38 H 151/68 98 01/13/23 00:00 84 19 148/71 99 01/12/23 23:07 93 22 138/72 99 01/12/23 23:00 95 19 126/80 85 L 01/12/23 22:12 73 22 126/80 100 01/12/23 22:00 81 20 100 01/12/23 21:00 87 14 99 01/12/23 20:30 66 100 01/12/23 20:00 67 99 01/12/23 19:32 72 18 144/62 99 01/12/23 19:30 76 16 144/62 01/12/23 19:00 74 14 141/60 01/12/23 18:36 98.5 F 84 22 135/57 100 Intake and Output 01/12/23 01/13/23 01/13/23 22:59 06:59 14:59 Intake Total 300 220 Output Total 250 175 Balance 50 45 Intake: IV 150 Intake, IV Titration 150 100 Amount Sodium Chloride 0.9% 1, 150 100 000 ml In Empty Bag 1 bag @ 75 mls/hr IV .[id number] PENDING SALE TO [facility] Rx#:[id number] Oral 120 Output: Urine 250 175 Other: Voiding Method Urinal Urinal Weight 81.647 kg 82.5 kg Results 01/13/23 09:49 01/13/23 09:49 Cardiac Enzymes 01/12/23 01/12/23 01/12/23 Range/Units 19:20 19:20 22:07 AST 105 H (17-59) U/L Troponin I 13.600 H* 14.500 H* (0.000-0.034) ng/mL 01/13/23 01/13/23 Range/Units 00:56 09:49 AST 77 H (17-59) U/L Troponin I 17.700 H* (0.000-0.034) ng/mL Coagulation 01/12/23 01/12/23 01/12/23 Range/Units 19:20 22:07 23:14 PT 9.8 (9.0-12.0) sec APTT 23.9 116.7 H* 73.9 H (22.0-30.0) sec 01/13/23 01/13/23 Range/Units 06:05 09:49 PT (9.0-12.0) sec APTT 32.3 H 24.9 (22.0-30.0) sec Lipids 01/13/23 Range/Units 06:05 Triglycerides 113.00 (0.00-149.00) mg/dL Cholesterol 96.00 (0.00-200.00) mg/dL HDL Cholesterol 37.50 L (40.00-60.00) mg/dL Cholesterol/HDL Ratio 2.56 Ratio CBC 01/12/23 01/13/23 Range/Units 19:20 09:49 WBC 10.0 18.8 H (3.8-10.6) k/uL RBC 2.40 L 2.32 L (4.30-5.90) m/uL Hgb 7.4 L 7.2 L (13.0-17.5) gm/dL Hct 23.5 L 23.4 L (39.0-53.0) % Plt Count 376 335 (150-450) k/uL Comprehensive Metabolic Panel 01/12/23 01/13/23 Range/Units 19:20 09:49 Sodium 134 L 136 L (137-145) mmol/L Potassium 4.5 4.9 (3.5-5.1) mmol/L Chloride 98 100 (98-107) mmol/L Carbon Dioxide 27 27 (22-30) mmol/L BUN 45 H 46 H (9-20) mg/dL Creatinine 6.50 H 6.96 H (0.66-1.25) mg/dL Glucose 182 H 118 H (74-99) mg/dL Calcium 8.2 L 8.0 L (8.4-10.2) mg/dL AST 105 H 77 H (17-59) U/L ALT 24 24 (4-49) U/L Alkaline Phosphatase 114 94 (38-126) U/L Total Protein 5.7 L 5.3 L (6.3-8.2) g/dL Albumin 3.0 L 2.7 L (3.5-5.0) g/dL Current Medications Generic Name Dose Route Start Last Admin Trade Name Freq PRN Reason Stop Dose Admin Al Hydroxide/Mg Hydroxide 30 ml 01/13/23 03:10 Mag Hydrox/Al Hydrox/Simeth 30 Ml Cup PO Q4HR PRN Heartburn Aspirin 81 mg 01/13/23 09:15 01/13/23 09:14 Aspirin 81 Mg PO 81 mg DAILY [facility] Administration Atorvastatin Calcium 80 mg 01/12/23 21:45 01/13/23 08:48 Atorvastatin 80 Mg Tab PO 80 mg DAILY [facility] Administration Atropine Sulfate 0.5 mg 01/13/23 03:10 Atropine Sulfate 0.1 Mg/Ml 10ml Syringe IV ONCE PRN Symptomatic Bradycardia Carvedilol 6.25 mg 01/13/23 09:00 01/13/23 08:48 Carvedilol 6.25 Mg Tab PO 6.25 mg DAILY [facility] Administration Clopidogrel Bisulfate 75 mg 01/14/23 09:00 Clopidogrel 75 Mg Tab PO DAILY PENDING SALE TO [facility] Protocol Darbepoetin Joel 60 mcg 01/13/23 12:00 Darbepoetin Joel 60 Mcg/0.3 Ml Syringe SQ Q7D [facility] Ezetimibe 10 mg 01/13/23 09:15 01/13/23 09:13 Ezetimibe 10 Mg Tab PO 10 mg DAILY [facility] Administration Heparin Sodium/Sodium Chloride 250 mls @ 9.798 mls/hr 01/12/23 21:45 01/12/23 22:02 25,000 unit/ Sodium Chloride IV 12 units/kg/hr .Q24H [facility] 9.798 mls/hr Administration Protocol 12 UNITS/KG/HR Peritoneal Dialysis Solution 30 g in 2,000 mls @ 0 mls/hr 01/13/23 12:00 Delflex With 1.5% Dextrose (2,500 Ml) INTRAPERIT Q6HR PENDING SALE TO [facility] Protocol As Directed Insulin Aspart 0 unit 01/13/23 07:30 01/13/23 06:58 Insulin Aspart (Novolog) 100 Unit/Ml Vial SQ 3 unit ACHS [facility] Administration Protocol Melatonin 5 mg 01/13/23 21:00 Melatonin 5 Mg Tablet PO HS PENDING SALE TO [facility] Metoprolol Tartrate 25 mg 01/13/23 09:00 01/13/23 08:48 Metoprolol Tartrate 25 Mg Tab PO 25 mg BID [facility] Administration Miscellaneous Information 1 each 01/13/23 03:10 Rx Info: Iv Contrast Was Given 1 Each Misc MISCELLANE 01/15/23 03:10 DAILY PRN Per Protocol Nitroglycerin 0.4 mg 01/12/23 21:40 01/13/23 01:40 Nitroglycerin Sl Tabs 0.4 Mg Tab SUBLINGUAL 0.4 mg Q5M PRN Administration Chest Pain Nitroglycerin 1 inch 01/13/23 00:00 01/13/23 06:12 Nitroglycerin Oint 1 Inch/Gm Packet TOPICAL 1 inch Q6HR [facility] Administration Nitroglycerin 0.4 mg 01/13/23 03:10 Nitroglycerin Sl Tabs 0.4 Mg Tab SUBLINGUAL Q5M PRN Chest Pain Oxybutynin Chloride 5 mg 01/13/23 21:00 Oxybutynin Chloride 5 Mg Tab PO HS [facility] Pantoprazole Sodium 40 mg 01/13/23 09:00 01/13/23 08:48 Pantoprazole 40 Mg Tablet PO 40 mg BID [facility] Administration Rivaroxaban 2.5 mg 01/13/23 09:15 01/13/23 09:20 Rivaroxaban 2.5 Mg Tablet PO 2.5 mg BID [facility] Administration Protocol Ropinirole HCl 0.5 mg 01/13/23 09:00 01/13/23 08:48 Ropinirole Hcl 0.25 Mg Tab PO 0.5 mg TID [facility] Administration Sodium Bicarbonate 650 mg 01/13/23 09:00 01/13/23 08:49 Sodium Bicarbonate Tab 650 Mg Tab PO 650 mg DAILY [facility] Administration Sodium Chloride 10 ml 01/13/23 09:15 01/13/23 09:14 Sodium Chloride 0.9% Flush 10 Ml Syringe IV 10 ml BID [facility] Administration Zolpidem Tartrate 5 mg 01/13/23 03:10 Zolpidem 5 Mg Tab PO HS PRN Insomnia Intake and Output 01/12/23 01/13/23 01/13/23 22:59 06:59 14:59 Intake Total 300 220 Output Total 250 175 Balance 50 45 Intake: IV 150 Intake, IV Titration 150 100 Amount Sodium Chloride 0.9% 1, 150 100 000 ml In Empty Bag 1 bag @ 75 mls/hr IV .[id number] PENDING SALE TO [facility] Rx#:[id number] Oral 120 Output: Urine 250 175 Other: Voiding Method Urinal Urinal Weight 81.647 kg 82.5 kg 01/13/23 09:49 01/13/23 09:49
--- NOTE | 2023-01-13 11:30 | P.PN ---
Subjective Progress Note Date: 01/13/23 Hospital Course: 72-year-old male with history of CAD status post stent, end-stage renal disease on peritoneal dialysis, diabetes, hypertension presented for STEMI. Initially patient presented with temperature of 98.5, pulse 84, respiratory rate 22, a pressure 135/57, saturating at 100% on room air. Laboratory analysis showed WBC 10, hemoglobin 7.4, creatinine 6.5, magnesium 1.5. EKG showed ST elevation in anterior leads. Patient had emergent left heart cath. Noted to have severe disease in the mid and distal RCA with a plaque rupture and thrombus, 2 stents placed, had elevated left-sided filling pressures. Patient currently in the medical ICU. Subjective: Seen and examined at bedside. No acute events overnight. He claims that his chest pain has improved. Denies any significant shortness of breath. Pertinent positives and negatives as discussed above, a complete review of systems was performed and all other systems are negative. Vitals Signs Reviewed. General: nontoxic, no distress, appears at stated age Derm: warm, dry Head: atraumatic, normocephalic, symmetric Eyes: EOMI, no lid lag, anicteric sclera Mouth: no lip lesion, mucus membranes moist Cardiovascular: S1S2 reg, no murmur Lungs: CTA bilateral, no rhonchi, no rales , no accessory muscle use, supplemental oxygen Abdominal: soft, nontender to palpation, no guarding, no appreciable organomega ly Ext: no gross muscle atrophy, no edema, no contractures Neuro: CN II-XI grossly intact, no focal neuro deficits Psych: Alert, oriented, appropriate affect Data Reviewed Today: Pertinent Labs: WBC 18.8, hemoglobin 7.2, sodium 136, creatinine 6.96, troponin 17.7, LDL 36 Imaging: None today Assessment and Plan: Patient is critically ill, currently in the medical ICU. STEMI status post stents CAD Dyslipidemia History of peripheral vascular disease ESRD on peritoneal dialysis Hypomagnesemia Chronic normocytic anemia Leukocytosis, likely reactive Type 2 diabetes -Cardiology note reviewed, started on Saturday, Xarelto 2-1/2 mg twice a day, continue triple therapy for 1 month and then discontinue low-dose aspirin -Echocardiogram pending -Nephrology note reviewed, started peritoneal dialysis, iron studies pending, started on aranesp -Repeat magnesium level tomorrow -No signs or symptoms of infection at the moment, repeat CBC tomorrow -Continue home glargine 20 units, also on sliding scale insulin DVT ppx: xarelto Code status: full code Anticipated discharge place: pending clinical course Anticipated discharge time: pending clinical course Objective - Vital Signs Vital signs: Vital Signs Temp 98 F 01/13/23 08:00 Pulse 77 01/13/23 10:00 Resp 14 01/13/23 10:00 BP 113/55 01/13/23 10:00 Pulse Ox 97 01/13/23 10:00 FiO2 Intake & Output 01/12/23 01/13/23 01/13/23 18:59 06:59 18:59 Intake Total 300 220 Output Total 250 175 Balance 50 45 Weight 81.647 kg 82.5 kg Intake: IV 150 Intake, IV Titration 150 100 Amount Sodium Chloride 0.9% 1, 150 100 000 ml In Empty Bag 1 bag @ 75 mls/hr IV .[id number] [facility] Rx#:[id number] Oral 120 Output: Urine 250 175 Other: Voiding Method Urinal Urinal - Labs CBC & Chem 7: 01/13/23 09:49 01/13/23 09:49 Labs: Abnormal Lab Results - Last 24 Hours (Table) 01/12/23 01/12/23 01/12/23 Range/Units 19:20 19:20 19:20 WBC (3.8-10.6) k/uL RBC 2.40 L (4.30-5.90) m/uL Hgb 7.4 L (13.0-17.5) gm/dL Hct 23.5 L (39.0-53.0) % MCV (80.0-100.0) fL MCHC (31.0-37.0) g/dL RDW 17.9 H (11.5-15.5) % Neutrophils # 8.4 H (1.3-7.7) k/uL Lymphocytes # 0.8 L (1.0-4.8) k/uL APTT (22.0-30.0) sec Sodium 134 L (137-145) mmol/L BUN 45 H (9-20) mg/dL Creatinine 6.50 H (0.66-1.25) mg/dL Glucose 182 H (74-99) mg/dL POC Glucose (mg/dL) (70-110) mg/dL Calcium 8.2 L (8.4-10.2) mg/dL Phosphorus (2.5-4.5) mg/dL Magnesium 1.5 L (1.6-2.3) mg/dL AST 105 H (17-59) U/L Troponin I 13.600 H* (0.000-0.034) ng/mL Total Protein 5.7 L (6.3-8.2) g/dL Albumin 3.0 L (3.5-5.0) g/dL HDL Cholesterol (40.00-60.00) mg/dL 01/12/23 01/12/23 01/12/23 Range/Units 22:07 22:07 23:14 WBC (3.8-10.6) k/uL RBC (4.30-5.90) m/uL Hgb (13.0-17.5) gm/dL Hct (39.0-53.0) % MCV (80.0-100.0) fL MCHC (31.0-37.0) g/dL RDW (11.5-15.5) % Neutrophils # (1.3-7.7) k/uL Lymphocytes # (1.0-4.8) k/uL APTT 116.7 H* 73.9 H (22.0-30.0) sec Sodium (137-145) mmol/L BUN (9-20) mg/dL Creatinine (0.66-1.25) mg/dL Glucose (74-99) mg/dL POC Glucose (mg/dL) (70-110) mg/dL Calcium (8.4-10.2) mg/dL Phosphorus (2.5-4.5) mg/dL Magnesium (1.6-2.3) mg/dL AST (17-59) U/L Troponin I 14.500 H* (0.000-0.034) ng/mL Total Protein (6.3-8.2) g/dL Albumin (3.5-5.0) g/dL HDL Cholesterol (40.00-60.00) mg/dL 01/13/23 01/13/23 01/13/23 Range/Units 00:56 01:33 06:05 WBC (3.8-10.6) k/uL RBC (4.30-5.90) m/uL Hgb (13.0-17.5) gm/dL Hct (39.0-53.0) % MCV (80.0-100.0) fL MCHC (31.0-37.0) g/dL RDW (11.5-15.5) % Neutrophils # (1.3-7.7) k/uL Lymphocytes # (1.0-4.8) k/uL APTT 32.3 H (22.0-30.0) sec Sodium (137-145) mmol/L BUN (9-20) mg/dL Creatinine (0.66-1.25) mg/dL Glucose (74-99) mg/dL POC Glucose (mg/dL) 129 H (70-110) mg/dL Calcium (8.4-10.2) mg/dL Phosphorus (2.5-4.5) mg/dL Magnesium (1.6-2.3) mg/dL AST (17-59) U/L Troponin I 17.700 H* (0.000-0.034) ng/mL Total Protein (6.3-8.2) g/dL Albumin (3.5-5.0) g/dL HDL Cholesterol (40.00-60.00) mg/dL 01/13/23 01/13/23 01/13/23 Range/Units 06:05 06:05 06:43 WBC (3.8-10.6) k/uL RBC (4.30-5.90) m/uL Hgb (13.0-17.5) gm/dL Hct (39.0-53.0) % MCV (80.0-100.0) fL MCHC (31.0-37.0) g/dL RDW (11.5-15.5) % Neutrophils # (1.3-7.7) k/uL Lymphocytes # (1.0-4.8) k/uL APTT (22.0-30.0) sec Sodium (137-145) mmol/L BUN (9-20) mg/dL Creatinine (0.66-1.25) mg/dL Glucose (74-99) mg/dL POC Glucose (mg/dL) 166 H (70-110) mg/dL Calcium (8.4-10.2) mg/dL Phosphorus 4.7 H (2.5-4.5) mg/dL Magnesium (1.6-2.3) mg/dL AST (17-59) U/L Troponin I (0.000-0.034) ng/mL Total Protein (6.3-8.2) g/dL Albumin (3.5-5.0) g/dL HDL Cholesterol 37.50 L (40.00-60.00) mg/dL 01/13/23 01/13/23 Range/Units 09:49 09:49 WBC 18.8 H (3.8-10.6) k/uL RBC 2.32 L (4.30-5.90) m/uL Hgb 7.2 L (13.0-17.5) gm/dL Hct 23.4 L (39.0-53.0) % MCV 100.8 H (80.0-100.0) fL MCHC 30.9 L (31.0-37.0) g/dL RDW 17.9 H (11.5-15.5) % Neutrophils # 17.1 H (1.3-7.7) k/uL Lymphocytes # 0.7 L (1.0-4.8) k/uL APTT (22.0-30.0) sec Sodium 136 L (137-145) mmol/L BUN 46 H (9-20) mg/dL Creatinine 6.96 H (0.66-1.25) mg/dL Glucose 118 H (74-99) mg/dL POC Glucose (mg/dL) (70-110) mg/dL Calcium 8.0 L (8.4-10.2) mg/dL Phosphorus (2.5-4.5) mg/dL Magnesium (1.6-2.3) mg/dL AST 77 H (17-59) U/L Troponin I (0.000-0.034) ng/mL Total Protein 5.3 L (6.3-8.2) g/dL Albumin 2.7 L (3.5-5.0) g/dL HDL Cholesterol (40.00-60.00) mg/dL
[2023-01-13 11:47] LABS: Glucose,Whole Blood 144 mg/dL (70-110)
[2023-01-13] MEDS ORDERED: DARBEPOETIN ALFA 60 MCG/0.3 ML SYRINGE SQ SCH (12:00)
[2023-01-13] MEDS: DIALYSIS (PERIT 1.5%) 2,500 ML 30 G/2,000 ML BAG INTRAPERIT SCH ×3 (12:09→23:42)
[2023-01-13 13:07] LABS: Appearance,Urine Clear (Clear); Bilirubin,Urine Negative (Negative); Blood,Urine Negative (Negative); Color,Urine Yellow; Glucose,Urine (UA) Trace (Negative); Ketones,Urine Negative (Negative); Leukocyte Esterase,Urine Negative (Negative); Nitrite,Urine Negative (Negative); PH, Urine 6.5 (5.0-8.0); Protein,Urine 2+ (Negative); RBC,Urine <1 /hpf (0-5); Specific Gravity,Urine 1.026 (1.001-1.035); Squamous Epithelial Cell,Urine <1 /hpf (0-4); Urobilinogen,Urine <2.0 mg/dL (<2.0); WBC,Urine <1 /hpf (0-5)
[2023-01-13 13:33] VITALS: BMI 28.5
[2023-01-13] MEDS: SENNOSIDES-DOCUSATE SODIUM 1 EACH TAB PO SCH ×2 (16:30→21:05)
[2023-01-13] MEDS: GABAPENTIN 100 MG CAP PO SCH ×2 (16:32→21:05)
[2023-01-13 16:33] LABS: Glucose,Whole Blood 284 mg/dL (70-110)
[2023-01-13 16:38] LABS: Glucose,Whole Blood 292 mg/dL (70-110)
[2023-01-13] MEDS: ACETAMINOPHEN TAB 325 MG TAB PO PRN (18:12)
[2023-01-13 20:11] LABS: Glucose,Whole Blood 153 mg/dL (70-110)
[2023-01-13] MEDS: MELATONIN 5 MG TABLET PO SCH (21:04)
[2023-01-13] MEDS: DULoxetine HCL 20 MG CAPSULE.DR PO SCH (21:06)
[2023-01-13] MEDS: INSULIN DETEMIR (LEVEMIR) 100 UNIT/ML SYR SQ SCH (21:06)
[2023-01-13] MEDS: oxyBUTYnin chloride 5 MG TAB PO SCH (21:34)
[2023-01-13 22:58] LABS: Chol/HDL Ratio 2.53 Ratio; LDL Cholesterol,Calculated 32.7 mg/dL (0.0-131.0)
[2023-01-13 23:38] LABS: % Iron Saturation 4.96 (15.00-50.00)
[2023-01-14] MEDS: DIALYSIS (PERIT 1.5%) 2,500 ML 30 G/2,000 ML BAG INTRAPERIT SCH ×4 (05:14→23:50)
[2023-01-14] MEDS: NITROGLYCERIN OINT 1 INCH/GM PACKET TOPICAL SCH ×4 (05:14→22:36)
[2023-01-14 05:30] LABS: Anisocytosis Slight; Basophils % (A) 0 %; Eosinophils # (A) 0.1 k/uL (0-0.7); Eosinophils % (A) 0 %; HCT 22.9 % (39.0-53.0); HGB 7.1 gm/dL (13.0-17.5); Hypochromasia Marked; Lymphocytes # (A) 0.8 k/uL (1.0-4.8); Lymphocytes % (A) 6 %; MCHC 30.9 g/dL (31.0-37.0); MCV 100.6 fL (80.0-100.0); Macrocytosis Slight; Mean Platelet Volume 8.7; Monocytes # (A) 0.8 k/uL (0-1.0); Monocytes % (A) 6 %; Neutrophils # (A) 12.4 k/uL (1.3-7.7); Neutrophils % (A) 87 %; Platelet Count 342 k/uL (150-450); RBC 2.28 m/uL (4.30-5.90); RDW 17.8 % (11.5-15.5); WBC 14.4 k/uL (3.8-10.6)
[2023-01-14] MEDS ORDERED: BENZOCAINE/MENTHOL LOZENG 1 EACH LOZENGE MUCOUS MEM PRN (05:36)
[2023-01-14 05:39] LABS: Calcium 8.1 mg/dL (8.4-10.2); Magnesium 1.7 mg/dL (1.6-2.3); Potassium 4.3 mmol/L (3.5-5.1)
[2023-01-14 06:49] LABS: Glucose,Whole Blood 93 mg/dL (70-110)
[2023-01-14] MEDS: INSULIN ASPART (NovoLOG) 100 UNIT/ML VIAL SQ SCH ×4 (06:59→20:21)
[2023-01-14] MEDS: GABAPENTIN 100 MG CAP PO SCH ×3 (08:46→20:20)
[2023-01-14] MEDS: ACETAMINOPHEN TAB 325 MG TAB PO PRN (08:46)
[2023-01-14] MEDS: RIVAROXABAN 2.5 MG TABLET PO SCH ×2 (08:46→20:19)
[2023-01-14] MEDS: FOLIC ACID-VIT B COMPLEX-VIT C 1 CAP PO SCH (08:46)
[2023-01-14] MEDS: ATORVASTATIN 80 MG TAB PO SCH (08:47)
[2023-01-14] MEDS: METOPROLOL TARTRATE 25 MG TAB PO SCH (08:47)
[2023-01-14] MEDS: ASPIRIN 81 MG PO SCH (08:47)
[2023-01-14] MEDS: SENNOSIDES-DOCUSATE SODIUM 1 EACH TAB PO SCH ×3 (08:48→20:22)
[2023-01-14] MEDS: CLOPIDOGREL 75 MG TAB PO SCH (08:48)
[2023-01-14] MEDS: SODIUM BICARBONATE TAB 650 MG TAB PO SCH (08:48)
[2023-01-14] MEDS: EZETIMIBE 10 MG TAB PO SCH (08:48)
[2023-01-14] MEDS: PANTOPRAZOLE 40 MG TABLET PO SCH ×2 (08:48→20:19)
--- NOTE | 2023-01-14 09:40 | P.PN ---
Subjective Progress Note Date: 01/14/23 Principal diagnosis: This is 72-year-old male known to us with ESRD on peritoneal dialysis. Came in with acute [place] and had heart catheterization with 2 stents in the right coronary artery on 01/13/2023 yesterday. This morning continues to have chest pain, given sublingual nitro with immediate relief. No further chest pain shortness of breath dizziness. No need previous coronary artery disease COPD diabetes peripheral vascular disease Known with partial small bowel obstruction the past. Has a poor appetite. Remains 7.1 this morning Currently on 30 Currently on 1.5% 2000 mL 4 exchanges. He had a negative balance of 100 mL over the last 3 exchanges Objective - Vital Signs Vital signs: Vital Signs Temp 96.2 F L 01/14/23 05:37 Pulse 88 01/14/23 09:00 Resp 18 01/14/23 09:00 BP 109/52 01/14/23 09:00 Pulse Ox 94 L 01/14/23 09:00 FiO2 Intake & Output 01/13/23 01/14/23 01/14/23 18:59 06:59 18:59 Intake Total 580 200 120 Output Total 450 50 Balance 130 150 120 Weight 82.5 kg 81.9 kg Intake: Intake, IV Titration 100 Amount Sodium Chloride 0.9% 1, 100 000 ml In Empty Bag 1 bag @ 75 mls/hr IV .[id number] [facility] Rx#:[id number] Oral 480 200 120 Output: Urine 450 50 Stool 0 Other: Voiding Method Urinal Urinal # Voids 1 0 # Bowel Movements 1 0 Awake alert oriented comfortable A chin exam no JVP neck is supple no facial asymmetry Lungs clear to auscultation good air entry Heart sounds unremarkable Normal sinus rhythm Abdomen soft, tenderness in the right upper quadrant. No masses felt Exit site of PD catheter clean Extremity exam was no edema Neurologically awake alert oriented - Labs CBC & Chem 7: 01/14/23 04:46 01/14/23 04:46 Labs: Abnormal Lab Results - Last 24 Hours (Table) 01/13/23 01/13/23 01/13/23 Range/Units 06:05 09:49 09:49 WBC 18.8 H (3.8-10.6) k/uL RBC 2.32 L (4.30-5.90) m/uL Hgb 7.2 L (13.0-17.5) gm/dL Hct 23.4 L (39.0-53.0) % MCV 100.8 H (80.0-100.0) fL MCHC 30.9 L (31.0-37.0) g/dL RDW 17.9 H (11.5-15.5) % Neutrophils # 17.1 H (1.3-7.7) k/uL Lymphocytes # 0.7 L (1.0-4.8) k/uL Sodium 136 L (137-145) mmol/L BUN 46 H (9-20) mg/dL Creatinine 6.96 H (0.66-1.25) mg/dL Glucose 118 H (74-99) mg/dL POC Glucose (mg/dL) (70-110) mg/dL Calcium 8.0 L (8.4-10.2) mg/dL Phosphorus 4.7 H (2.5-4.5) mg/dL Iron 14 L (65-175) ug/dL % Saturation 4.96 L (15.00-50.00) Transferrin 196.0 L (204.0-354.0) mg/dL AST 77 H (17-59) U/L Total Protein 5.3 L (6.3-8.2) g/dL Albumin 2.7 L (3.5-5.0) g/dL HDL Cholesterol 37.60 L (40.00-60.00) mg/dL Urine Protein (Negative) Urine Glucose (UA) (Negative) 01/13/23 01/13/23 01/13/23 Range/Units 11:45 12:51 16:31 WBC (3.8-10.6) k/uL RBC (4.30-5.90) m/uL Hgb (13.0-17.5) gm/dL Hct (39.0-53.0) % MCV (80.0-100.0) fL MCHC (31.0-37.0) g/dL RDW (11.5-15.5) % Neutrophils # (1.3-7.7) k/uL Lymphocytes # (1.0-4.8) k/uL Sodium (137-145) mmol/L BUN (9-20) mg/dL Creatinine (0.66-1.25) mg/dL Glucose (74-99) mg/dL POC Glucose (mg/dL) 144 H 284 H (70-110) mg/dL Calcium (8.4-10.2) mg/dL Phosphorus (2.5-4.5) mg/dL Iron (65-175) ug/dL % Saturation (15.00-50.00) Transferrin (204.0-354.0) mg/dL AST (17-59) U/L Total Protein (6.3-8.2) g/dL Albumin (3.5-5.0) g/dL HDL Cholesterol (40.00-60.00) mg/dL Urine Protein 2+ H (Negative) Urine Glucose (UA) Trace H (Negative) 01/13/23 01/13/23 01/14/23 Range/Units 16:37 20:09 04:46 WBC 14.4 H (3.8-10.6) k/uL RBC 2.28 L (4.30-5.90) m/uL Hgb 7.1 L (13.0-17.5) gm/dL Hct 22.9 L (39.0-53.0) % MCV 100.6 H (80.0-100.0) fL MCHC 30.9 L (31.0-37.0) g/dL RDW 17.8 H (11.5-15.5) % Neutrophils # 12.4 H (1.3-7.7) k/uL Lymphocytes # 0.8 L (1.0-4.8) k/uL Sodium (137-145) mmol/L BUN (9-20) mg/dL Creatinine (0.66-1.25) mg/dL Glucose (74-99) mg/dL POC Glucose (mg/dL) 292 H 153 H (70-110) mg/dL Calcium (8.4-10.2) mg/dL Phosphorus (2.5-4.5) mg/dL Iron (65-175) ug/dL % Saturation (15.00-50.00) Transferrin (204.0-354.0) mg/dL AST (17-59) U/L Total Protein (6.3-8.2) g/dL Albumin (3.5-5.0) g/dL HDL Cholesterol (40.00-60.00) mg/dL Urine Protein (Negative) Urine Glucose (UA) (Negative) 01/14/23 Range/Units 04:46 WBC (3.8-10.6) k/uL RBC (4.30-5.90) m/uL Hgb (13.0-17.5) gm/dL Hct (39.0-53.0) % MCV (80.0-100.0) fL MCHC (31.0-37.0) g/dL RDW (11.5-15.5) % Neutrophils # (1.3-7.7) k/uL Lymphocytes # (1.0-4.8) k/uL Sodium 134 L (137-145) mmol/L BUN 55 H (9-20) mg/dL Creatinine 7.53 H* (0.66-1.25) mg/dL Glucose (74-99) mg/dL POC Glucose (mg/dL) (70-110) mg/dL Calcium 8.1 L (8.4-10.2) mg/dL Phosphorus (2.5-4.5) mg/dL Iron (65-175) ug/dL % Saturation (15.00-50.00) Transferrin (204.0-354.0) mg/dL AST (17-59) U/L Total Protein (6.3-8.2) g/dL Albumin (3.5-5.0) g/dL HDL Cholesterol (40.00-60.00) mg/dL Urine Protein (Negative) Urine Glucose (UA) (Negative) Assessment and Plan Plan: Impression 1. ESRD on peritoneal dialysis at home with a cycler. Etiology is diabetic nephropathy. Dialysis for about 2 years ago. 2. Admitted with chest pain acute [place] is post cardiac cath 01/13/2023 with 2 stents in the RCA. Recurrent chest pain this morning, immediately or resolved with 1 sublingual nitro 3. Anemia with iron saturation of 4% 4. History of diabetes mellitus 5. History of small bowel obstructions the past Recommendation 1. Continue peritoneal dialysis 2000 mL 1.5% 4 exchanges a day. 2. Transfuse 1 unit packed cells 3. Continue Aranesp 60 g every week subcutaneous 4. Watch her pressure, hemoglobin.
[2023-01-14] MEDS ORDERED: METOPROLOL TARTRATE 25 MG TAB PO STA (09:48)
[2023-01-14] MEDS: carvediloL 6.25 MG TAB PO SCH (09:58)
--- NOTE | 2023-01-14 10:13 | P.PN ---
Subjective Progress Note Date: 01/14/23 Hospital Course: 72-year-old male with history of CAD status post stent, end-stage renal disease on peritoneal dialysis, diabetes, hypertension presented for STEMI. Initially patient presented with temperature of 98.5, pulse 84, respiratory rate 22, a pressure 135/57, saturating at 100% on room air. Laboratory analysis showed WBC 10, hemoglobin 7.4, creatinine 6.5, magnesium 1.5. EKG showed ST elevation in anterior leads. Patient had emergent left heart cath. Noted to have severe disease in the mid and distal RCA with a plaque rupture and thrombus, 2 stents placed, had elevated left-sided filling pressures. Patient currently in the medical ICU. Subjective: Seen and examined at bedside. No acute events overnight. His chest pain is still present. Denies any significant shortness of breath, but on nasal cannula. Pertinent positives and negatives as discussed above, a complete review of systems was performed and all other systems are negative. Vitals Signs Reviewed. General: nontoxic, no distress, appears at stated age Derm: warm, dry Head: atraumatic, normocephalic, symmetric Eyes: EOMI, no lid lag, anicteric sclera Mouth: no lip lesion, mucus membranes moist Cardiovascular: S1S2 reg, no murmur Lungs: CTA bilateral, no rhonchi, no rales , no accessory muscle use, supplemental oxygen Abdominal: soft, nontender to palpation, no guarding, no appreciable organom egaly Ext: no gross muscle atrophy, no edema, no contractures Neuro: CN II-XI grossly intact, no focal neuro deficits Psych: Alert, oriented, appropriate affect Data Reviewed Today: Pertinent Labs: WBC 14.4, hemoglobin 7.1, potassium 4.3, magnesium 1.7, creatinine was 7.53, blood glucose ranged between 75-292 EKG from this morning independently interpreted, shows sinus rhythm with occasional PACs Assessment and Plan: Patient is critically ill, currently in the medical ICU. STEMI status post stents CAD Dyslipidemia History of peripheral vascular disease ESRD on peritoneal dialysis Hypomagnesemia, resolved Chronic normocytic anemia Leukocytosis, likely reactive Type 2 diabetes -Cardiology following, started on ezetimibe, Xarelto 2-1/2 mg twice a day, continue triple therapy for 1 month and then discontinue low-dose aspirin, metoprolol increased to 50 mg twice a day -Echocardiogram pending -Nephrology note reviewed, on peritoneal dialysis, on aranesp, 1 unit transfused PRBCs -No signs or symptoms of infection at the moment, repeat CBC tomorrow -Continue home glargine 20 units, also on sliding scale insulin, no changes DVT ppx: xarelto Code status: full code Anticipated discharge place: pending clinical course Anticipated discharge time: pending clinical course Objective - Vital Signs Vital signs: Vital Signs Temp 96.2 F L 01/14/23 05:37 Pulse 78 01/14/23 10:00 Resp 18 01/14/23 10:00 BP 107/58 01/14/23 10:00 Pulse Ox 100 01/14/23 10:00 FiO2 Intake & Output 01/13/23 01/14/23 01/14/23 18:59 06:59 18:59 Intake Total 580 200 120 Output Total 450 50 Balance 130 150 120 Weight 82.5 kg 81.9 kg Intake: Intake, IV Titration 100 Amount Sodium Chloride 0.9% 1, 100 000 ml In Empty Bag 1 bag @ 75 mls/hr IV .[id number] [facility] Rx#:[id number] Oral 480 200 120 Output: Urine 450 50 Stool 0 Other: Voiding Method Urinal Urinal # Voids 1 0 # Bowel Movements 1 0 - Labs CBC & Chem 7: 01/14/23 04:46 01/14/23 04:46 Labs: Abnormal Lab Results - Last 24 Hours (Table) 01/13/23 01/13/23 01/13/23 Range/Units 06:05 09:49 11:45 WBC (3.8-10.6) k/uL RBC (4.30-5.90) m/uL Hgb (13.0-17.5) gm/dL Hct (39.0-53.0) % MCV (80.0-100.0) fL MCHC (31.0-37.0) g/dL RDW (11.5-15.5) % Neutrophils # (1.3-7.7) k/uL Lymphocytes # (1.0-4.8) k/uL Sodium 136 L (137-145) mmol/L BUN 46 H (9-20) mg/dL Creatinine 6.96 H (0.66-1.25) mg/dL Glucose 118 H (74-99) mg/dL POC Glucose (mg/dL) 144 H (70-110) mg/dL Calcium 8.0 L (8.4-10.2) mg/dL Phosphorus 4.7 H (2.5-4.5) mg/dL Iron 14 L (65-175) ug/dL % Saturation 4.96 L (15.00-50.00) Transferrin 196.0 L (204.0-354.0) mg/dL AST 77 H (17-59) U/L Total Protein 5.3 L (6.3-8.2) g/dL Albumin 2.7 L (3.5-5.0) g/dL HDL Cholesterol 37.60 L (40.00-60.00) mg/dL Urine Protein (Negative) Urine Glucose (UA) (Negative) 01/13/23 01/13/23 01/13/23 Range/Units 12:51 16:31 16:37 WBC (3.8-10.6) k/uL RBC (4.30-5.90) m/uL Hgb (13.0-17.5) gm/dL Hct (39.0-53.0) % MCV (80.0-100.0) fL MCHC (31.0-37.0) g/dL RDW (11.5-15.5) % Neutrophils # (1.3-7.7) k/uL Lymphocytes # (1.0-4.8) k/uL Sodium (137-145) mmol/L BUN (9-20) mg/dL Creatinine (0.66-1.25) mg/dL Glucose (74-99) mg/dL POC Glucose (mg/dL) 284 H 292 H (70-110) mg/dL Calcium (8.4-10.2) mg/dL Phosphorus (2.5-4.5) mg/dL Iron (65-175) ug/dL % Saturation (15.00-50.00) Transferrin (204.0-354.0) mg/dL AST (17-59) U/L Total Protein (6.3-8.2) g/dL Albumin (3.5-5.0) g/dL HDL Cholesterol (40.00-60.00) mg/dL Urine Protein 2+ H (Negative) Urine Glucose (UA) Trace H (Negative) 01/13/23 01/14/23 01/14/23 Range/Units 20:09 04:46 04:46 WBC 14.4 H (3.8-10.6) k/uL RBC 2.28 L (4.30-5.90) m/uL Hgb 7.1 L (13.0-17.5) gm/dL Hct 22.9 L (39.0-53.0) % MCV 100.6 H (80.0-100.0) fL MCHC 30.9 L (31.0-37.0) g/dL RDW 17.8 H (11.5-15.5) % Neutrophils # 12.4 H (1.3-7.7) k/uL Lymphocytes # 0.8 L (1.0-4.8) k/uL Sodium 134 L (137-145) mmol/L BUN 55 H (9-20) mg/dL Creatinine 7.53 H* (0.66-1.25) mg/dL Glucose (74-99) mg/dL POC Glucose (mg/dL) 153 H (70-110) mg/dL Calcium 8.1 L (8.4-10.2) mg/dL Phosphorus (2.5-4.5) mg/dL Iron (65-175) ug/dL % Saturation (15.00-50.00) Transferrin (204.0-354.0) mg/dL AST (17-59) U/L Total Protein (6.3-8.2) g/dL Albumin (3.5-5.0) g/dL HDL Cholesterol (40.00-60.00) mg/dL Urine Protein (Negative) Urine Glucose (UA) (Negative)
--- NOTE | 2023-01-14 10:56 | P.PN ---
Subjective Progress Note Date: 01/14/23 The patient is a 72-year-old male who presented to the emergency room with acute onset of chest discomfort and shortness of breath. EKG revealed ST elevations in leads V2-4. Troponin elevation of 13.6, 14.5, and 17.7. Coronary angiogram revealed severe disease in the mid and distal RCA, noted to be plaque rupture and thrombus. 2 coronary stents were placed. Overnight the patient reported angina. He was given nitroglycerin with mild improvement in symptoms. Unfortunately he became hypotensive as a response. GENERAL: Well-appearing, well-nourished and in no acute distress. Pale. NECK: Supple without JVD or thyromegaly. LUNGS: Breath sounds diminished to auscultation bilaterally. Respiration equal and unlabored. No wheezes, rales or rhonchi. HEART: Regular rate and rhythm without murmurs, rubs or gallops. S1 and S2 heard. EXTREMITIES: Normal range of motion, no edema. No clubbing or cyanosis. Peripheral pulses intact and strong. Right groin site has no drainage or hematoma. TELEMETRY: Sinus rhythm with alternating bundle branch block LABS: Hemoglobin 7.1 IMPRESSION: ST elevated myocardial infarction Status post stenting of the RCA End-stage renal disease on peritoneal dialysis Dyslipidemia History of peripheral vascular disease Current smoker Anemia PLAN: Proceed with blood transfusion for low hemoglobin Cautious use of nitroglycerin as the patient developed secondary hypotension Awaiting echocardiogram results Further recommendations to be based on clinical course I am dictating on behalf of Dr Devno Munguia's history/physical and assessment/plan. Objective - Vital Signs Vital signs: Vital Signs Temp 96.2 F L 01/14/23 05:37 Pulse 78 01/14/23 10:00 Resp 18 01/14/23 10:00 BP 107/58 01/14/23 10:00 Pulse Ox 100 01/14/23 10:00 FiO2 Intake & Output 01/13/23 01/14/23 01/14/23 18:59 06:59 18:59 Intake Total 580 200 120 Output Total 450 50 Balance 130 150 120 Weight 82.5 kg 81.9 kg Intake: Intake, IV Titration 100 Amount Sodium Chloride 0.9% 1, 100 000 ml In Empty Bag 1 bag @ 75 mls/hr IV .[id number] [facility] Rx#:[id number] Oral 480 200 120 Output: Urine 450 50 Stool 0 Other: Voiding Method Urinal Urinal # Voids 1 0 # Bowel Movements 1 0 - Labs CBC & Chem 7: 01/14/23 04:46 01/14/23 04:46 Labs: Abnormal Lab Results - Last 24 Hours (Table) 01/13/23 01/13/23 01/13/23 Range/Units 06:05 09:49 11:45 WBC (3.8-10.6) k/uL RBC (4.30-5.90) m/uL Hgb (13.0-17.5) gm/dL Hct (39.0-53.0) % MCV (80.0-100.0) fL MCHC (31.0-37.0) g/dL RDW (11.5-15.5) % Neutrophils # (1.3-7.7) k/uL Lymphocytes # (1.0-4.8) k/uL Sodium (137-145) mmol/L BUN (9-20) mg/dL Creatinine (0.66-1.25) mg/dL POC Glucose (mg/dL) 144 H (70-110) mg/dL Calcium (8.4-10.2) mg/dL Phosphorus 4.7 H (2.5-4.5) mg/dL Iron 14 L (65-175) ug/dL % Saturation 4.96 L (15.00-50.00) Transferrin 196.0 L (204.0-354.0) mg/dL HDL Cholesterol 37.60 L (40.00-60.00) mg/dL Urine Protein (Negative) Urine Glucose (UA) (Negative) 01/13/23 01/13/23 01/13/23 Range/Units 12:51 16:31 16:37 WBC (3.8-10.6) k/uL RBC (4.30-5.90) m/uL Hgb (13.0-17.5) gm/dL Hct (39.0-53.0) % MCV (80.0-100.0) fL MCHC (31.0-37.0) g/dL RDW (11.5-15.5) % Neutrophils # (1.3-7.7) k/uL Lymphocytes # (1.0-4.8) k/uL Sodium (137-145) mmol/L BUN (9-20) mg/dL Creatinine (0.66-1.25) mg/dL POC Glucose (mg/dL) 284 H 292 H (70-110) mg/dL Calcium (8.4-10.2) mg/dL Phosphorus (2.5-4.5) mg/dL Iron (65-175) ug/dL % Saturation (15.00-50.00) Transferrin (204.0-354.0) mg/dL HDL Cholesterol (40.00-60.00) mg/dL Urine Protein 2+ H (Negative) Urine Glucose (UA) Trace H (Negative) 01/13/23 01/14/23 01/14/23 Range/Units 20:09 04:46 04:46 WBC 14.4 H (3.8-10.6) k/uL RBC 2.28 L (4.30-5.90) m/uL Hgb 7.1 L (13.0-17.5) gm/dL Hct 22.9 L (39.0-53.0) % MCV 100.6 H (80.0-100.0) fL MCHC 30.9 L (31.0-37.0) g/dL RDW 17.8 H (11.5-15.5) % Neutrophils # 12.4 H (1.3-7.7) k/uL Lymphocytes # 0.8 L (1.0-4.8) k/uL Sodium 134 L (137-145) mmol/L BUN 55 H (9-20) mg/dL Creatinine 7.53 H* (0.66-1.25) mg/dL POC Glucose (mg/dL) 153 H (70-110) mg/dL Calcium 8.1 L (8.4-10.2) mg/dL Phosphorus (2.5-4.5) mg/dL Iron (65-175) ug/dL % Saturation (15.00-50.00) Transferrin (204.0-354.0) mg/dL HDL Cholesterol (40.00-60.00) mg/dL Urine Protein (Negative) Urine Glucose (UA) (Negative)
[2023-01-14 11:45] LABS: Glucose,Whole Blood 127 mg/dL (70-110)
[2023-01-14 16:28] LABS: Glucose,Whole Blood 198 mg/dL (70-110)
[2023-01-14 19:52] LABS: Glucose,Whole Blood 246 mg/dL (70-110)
[2023-01-14] MEDS: oxyBUTYnin chloride 5 MG TAB PO SCH (20:19)
[2023-01-14] MEDS: METOPROLOL TARTRATE 50 MG TAB PO SCH (20:19)
[2023-01-14] MEDS: DULoxetine HCL 20 MG CAPSULE.DR PO SCH (20:19)
[2023-01-14] MEDS: MELATONIN 5 MG TABLET PO SCH (20:19)
[2023-01-14] MEDS: INSULIN DETEMIR (LEVEMIR) 100 UNIT/ML SYR SQ SCH (20:21)
[2023-01-15] MEDS: DIALYSIS (PERIT 1.5%) 2,500 ML 30 G/2,000 ML BAG INTRAPERIT SCH ×3 (05:41→18:05)
[2023-01-15] MEDS: NITROGLYCERIN OINT 1 INCH/GM PACKET TOPICAL SCH (06:11)
[2023-01-15 06:35] LABS: Anisocytosis Slight; Basophils % (A) 0 %; Eosinophils # (A) 0.1 k/uL (0-0.7); Eosinophils % (A) 1 %; HCT 27.1 % (39.0-53.0); Hypochromasia Marked; Lymphocytes # (A) 0.9 k/uL (1.0-4.8); Lymphocytes % (A) 6 %; MCH 31.1 pg (25.0-35.0); MCHC 31.7 g/dL (31.0-37.0); MCV 98.3 fL (80.0-100.0); Macrocytosis Slight; Mean Platelet Volume 9.7; Monocytes # (A) 0.8 k/uL (0-1.0); Monocytes % (A) 5 %; Neutrophils # (A) 14.4 k/uL (1.3-7.7); Neutrophils % (A) 87 %; Platelet Count 392 k/uL (150-450); RBC 2.75 m/uL (4.30-5.90); RDW 18.3 % (11.5-15.5); WBC 16.5 k/uL (3.8-10.6)
[2023-01-15 06:38] LABS: HGB 8.6 gm/dL (13.0-17.5)
[2023-01-15 06:56] LABS: Calcium 7.7 mg/dL (8.4-10.2); Potassium 4.1 mmol/L (3.5-5.1)
[2023-01-15 07:04] LABS: Glucose,Whole Blood 52 mg/dL (70-110)
[2023-01-15] MEDS: INSULIN ASPART (NovoLOG) 100 UNIT/ML VIAL SQ SCH ×4 (07:05→21:14)
--- NOTE | 2023-01-15 07:25 | P.PN ---
Subjective Progress Note Date: 01/15/23 PROGRESS NOTE The patient is a 72-year-old male with a known history of CAD, PAD, end-stage renal disease who presented with non-STEMI and was 5 to have significant obstructive disease involving the RCA and underwent stenting of that vessel. He's feeling better this morning, he denies any chest discomfort, dizziness or palpitations. He is in sinus mechanism. He denies any nausea or vomiting. Medications: Aspirin, Plavix 75 g daily, Lipitor 80 mg daily, insulin, Lopressor 50 mg twice a day, Cymbalta, Neurontin,Zetia 10 mg daily,Xarelto 2.5 mg twice a day PHYSICAL EXAMINATION: Blood pressure 120/60 heart rate 70 LUNGS: Clear to auscultation HEART: Regular rate and rhythm, S1, S2. No S3. systolic ejection murmur ABDOMEN: Soft, nontender, no organomegaly EXTREMETIES: No edema LAB: BUN 55, creatinine 8.22, hemoglobin 8.6 IMPRESSION: 1. Status post non-STEMI and stenting of the RCA 2. History of CAD and PAD 3. End-stage renal disease 4. Hyperlipidemia 5. History of diabetes PLAN: 1. Obtain an echocardiogram Doppler 2. Increase physical activity 3. Stop nitrate 4. If stable probable discharge in 24 hours Objective - Vital Signs Vital signs: Vital Signs Temp 98.0 F 01/15/23 06:09 Pulse 77 01/15/23 07:00 Resp 17 01/15/23 07:00 BP 120/65 01/15/23 07:00 Pulse Ox 100 01/15/23 07:00 FiO2 Intake & Output 01/14/23 01/15/23 01/15/23 18:59 06:59 18:59 Intake Total 700 100 Output Total 150 0 Balance 550 100 Intake: Oral 360 100 Blood Product 310 Rc As-1 Unit 310 [id number] Other 30 Rc As-1 Unit 30 [id number] Output: Urine 150 0 Other: Voiding Method Urinal Urinal - Labs CBC & Chem 7: 01/15/23 06:17 01/15/23 06:17 Labs: Abnormal Lab Results - Last 24 Hours (Table) 01/14/23 01/14/23 01/14/23 Range/Units 09:54 11:42 16:26 WBC (3.8-10.6) k/uL RBC (4.30-5.90) m/uL Hgb (13.0-17.5) gm/dL Hct (39.0-53.0) % RDW (11.5-15.5) % Neutrophils # (1.3-7.7) k/uL Lymphocytes # (1.0-4.8) k/uL BUN (9-20) mg/dL Creatinine (0.66-1.25) mg/dL Glucose (74-99) mg/dL POC Glucose (mg/dL) 127 H 198 H (70-110) mg/dL Calcium (8.4-10.2) mg/dL Crossmatch See Detail 01/14/23 01/15/23 01/15/23 Range/Units 19:50 06:17 06:17 WBC 16.5 H (3.8-10.6) k/uL RBC 2.75 L (4.30-5.90) m/uL Hgb 8.6 L D (13.0-17.5) gm/dL Hct 27.1 L (39.0-53.0) % RDW 18.3 H (11.5-15.5) % Neutrophils # 14.4 H (1.3-7.7) k/uL Lymphocytes # 0.9 L (1.0-4.8) k/uL BUN 55 H (9-20) mg/dL Creatinine 8.22 H* (0.66-1.25) mg/dL Glucose 45 L* (74-99) mg/dL POC Glucose (mg/dL) 246 H (70-110) mg/dL Calcium 7.7 L (8.4-10.2) mg/dL Crossmatch 01/15/23 Range/Units 07:01 WBC (3.8-10.6) k/uL RBC (4.30-5.90) m/uL Hgb (13.0-17.5) gm/dL Hct (39.0-53.0) % RDW (11.5-15.5) % Neutrophils # (1.3-7.7) k/uL Lymphocytes # (1.0-4.8) k/uL BUN (9-20) mg/dL Creatinine (0.66-1.25) mg/dL Glucose (74-99) mg/dL POC Glucose (mg/dL) 52 L (70-110) mg/dL Calcium (8.4-10.2) mg/dL Crossmatch
[2023-01-15 07:28] LABS: Glucose,Whole Blood 354 mg/dL (70-110)
[2023-01-15] MEDS: ASPIRIN 81 MG PO SCH (08:47)
[2023-01-15] MEDS: ATORVASTATIN 80 MG TAB PO SCH (08:47)
[2023-01-15] MEDS: METOPROLOL TARTRATE 50 MG TAB PO SCH ×2 (08:48→21:14)
[2023-01-15] MEDS: EZETIMIBE 10 MG TAB PO SCH (08:48)
[2023-01-15] MEDS: CLOPIDOGREL 75 MG TAB PO SCH (08:48)
[2023-01-15] MEDS: SENNOSIDES-DOCUSATE SODIUM 1 EACH TAB PO SCH ×3 (08:49→21:15)
[2023-01-15] MEDS: GABAPENTIN 100 MG CAP PO SCH ×3 (08:49→21:15)
[2023-01-15] MEDS: RIVAROXABAN 2.5 MG TABLET PO SCH ×2 (08:49→21:15)
[2023-01-15] MEDS: PANTOPRAZOLE 40 MG TABLET PO SCH ×2 (08:50→21:15)
[2023-01-15] MEDS: SODIUM BICARBONATE TAB 650 MG TAB PO SCH (08:50)
--- NOTE | 2023-01-15 09:48 | P.PN ---
Subjective Patient is seen in follow-up for end-stage renal disease. He is maintained on peritoneal dialysis. Resting in bed. No chest pain or shortness of breath at this time. No problems with PD exchanges per nurse. No constipation. Vital signs are stable. General: No acute distress. HEENT: Head exam is unremarkable. LUNGS: No audible rhonchi or wheezes. HEART: Rate and Rhythm are regular. ABDOMEN: Nontender. EXTREMITITES: No edema. Objective - Vital Signs Vital signs: Vital Signs Temp 97.5 F L 01/15/23 08:00 Pulse 73 01/15/23 09:00 Resp 14 01/15/23 09:00 BP 110/53 01/15/23 09:00 Pulse Ox 100 01/15/23 09:16 FiO2 Intake & Output 01/14/23 01/15/23 01/15/23 18:59 06:59 18:59 Intake Total 700 100 200 Output Total 150 0 1 Balance 550 100 199 Intake: Oral 360 100 200 Blood Product 310 Rc As-1 Unit 310 [id number] Other 30 Rc As-1 Unit 30 [id number] Output: Urine 150 0 1 Other: Voiding Method Urinal Urinal Urinal # Bowel Movements 1 - Labs CBC & Chem 7: 01/15/23 06:17 01/15/23 06:17 Labs: Abnormal Lab Results - Last 24 Hours (Table) 01/14/23 01/14/23 01/14/23 Range/Units 09:54 11:42 16:26 WBC (3.8-10.6) k/uL RBC (4.30-5.90) m/uL Hgb (13.0-17.5) gm/dL Hct (39.0-53.0) % RDW (11.5-15.5) % Neutrophils # (1.3-7.7) k/uL Lymphocytes # (1.0-4.8) k/uL BUN (9-20) mg/dL Creatinine (0.66-1.25) mg/dL Glucose (74-99) mg/dL POC Glucose (mg/dL) 127 H 198 H (70-110) mg/dL Calcium (8.4-10.2) mg/dL Crossmatch See Detail 01/14/23 01/15/23 01/15/23 Range/Units 19:50 06:17 06:17 WBC 16.5 H (3.8-10.6) k/uL RBC 2.75 L (4.30-5.90) m/uL Hgb 8.6 L D (13.0-17.5) gm/dL Hct 27.1 L (39.0-53.0) % RDW 18.3 H (11.5-15.5) % Neutrophils # 14.4 H (1.3-7.7) k/uL Lymphocytes # 0.9 L (1.0-4.8) k/uL BUN 55 H (9-20) mg/dL Creatinine 8.22 H* (0.66-1.25) mg/dL Glucose 45 L* (74-99) mg/dL POC Glucose (mg/dL) 246 H (70-110) mg/dL Calcium 7.7 L (8.4-10.2) mg/dL Crossmatch 01/15/23 01/15/23 Range/Units 07:01 07:26 WBC (3.8-10.6) k/uL RBC (4.30-5.90) m/uL Hgb (13.0-17.5) gm/dL Hct (39.0-53.0) % RDW (11.5-15.5) % Neutrophils # (1.3-7.7) k/uL Lymphocytes # (1.0-4.8) k/uL BUN (9-20) mg/dL Creatinine (0.66-1.25) mg/dL Glucose (74-99) mg/dL POC Glucose (mg/dL) 52 L 354 H (70-110) mg/dL Calcium (8.4-10.2) mg/dL Crossmatch Assessment and Plan Plan: Assessment: 1. End-stage renal disease maintained on peritoneal dialysis. 2. Acute RI status post RCA stenting. Cardiology following. 3. Diabetes. 4. Anemia of chronic kidney disease maintained on Aranesp. Plan: Maintain current PD exchanges - 2 L every 6 hours with 1.5% dextrose solution. Lactulose as needed for constipation. Check phosphorus level.
[2023-01-15] MEDS: FOLIC ACID-VIT B COMPLEX-VIT C 1 CAP PO SCH (10:07)
--- NOTE | 2023-01-15 10:10 | P.PN ---
Subjective Progress Note Date: 01/15/23 No new complaints today. Per nursing, pt still short of breath when laying flat. Gen: awake, alert HEENT: normocephalic, atraumatic, good hearing acuity, moist mucous membranes Resp: good air exchange, breathing comfortably with no accessory muscle use CVS: good distal perfusion x 4, GI: soft, NTTP, ND : no SPT, no CVAT, stephenson catheter not present MSK: no pitting edema, no clubbing Neuro: non-focal, moving all extremities Psych: cooperative, euthymic mood Hospital course: 72-year-old male with history of CAD status post stent, end-stage renal disease on peritoneal dialysis, diabetes, hypertension presented for STEMI. Initially patient presented with temperature of 98.5, pulse 84, respiratory rate 22, a pressure 135/57, saturating at 100% on room air. Laboratory analysis showed WBC 10, hemoglobin 7.4, creatinine 6.5, magnesium 1.5. EKG showed ST elevation in anterior leads. Patient had emergent left heart cath. Noted to have severe disease in the mid and distal RCA with a plaque rupture and thrombus, 2 stents placed in the RCA, had elevated left-sided filling pressures. Patient transferred to the medical ICU. Assessment: STEMI status post stents CAD Dyslipidemia History of peripheral vascular disease ESRD on peritoneal dialysis Hypomagnesemia, resolved Chronic normocytic anemia Leukocytosis, likely reactive Type 2 diabetes Plan: Today, patient is afebrile, 100/49, heart rate 79, 100% on 2 L of nasal cannula. White blood cell count 16.5, hemoglobin is 8.6 BUN is 55, creatinine is 8.22 Blood sugar was low at 45 today on basic metabolic panel, [id number] glucose was 54 CBC, basic metabolic panel, magnesium ordered for tomorrow Cardiology note reviewed, stop nitrate today, monitor patient for an additional 24 hours, stepped down to the cardiac floor Nephrology note reviewed, continue PD exchanges Continue aspirin 81 mg, Plavix 75 mg, Xarelto 2.5 mg twice a day Continue atorvastatin 80 mg, Zetia 10 mg Continue peritoneal dialysis exchanges, darbepoetin, sodium bicarbonate 650 mg daily Patient is full code Objective - Vital Signs Vital signs: Vital Signs Temp 97.5 F L 01/15/23 08:00 Pulse 73 01/15/23 09:00 Resp 14 01/15/23 09:00 BP 110/53 05/30/23 09:00 Pulse Ox 100 01/15/23 09:16 FiO2 Intake & Output 01/14/23 01/15/23 01/15/23 18:59 06:59 18:59 Intake Total 700 100 200 Output Total 150 0 1 Balance 550 100 199 Intake: Oral 360 100 200 Blood Product 310 Rc As-1 Unit 310 [id number] Other 30 Rc As-1 Unit 30 [id number] Output: Urine 150 0 1 Other: Voiding Method Urinal Urinal Urinal # Bowel Movements 1 - Labs CBC & Chem 7: 01/15/23 06:17 01/15/23 06:17 Labs: Abnormal Lab Results - Last 24 Hours (Table) 01/14/23 01/14/23 01/14/23 Range/Units 09:54 11:42 16:26 WBC (3.8-10.6) k/uL RBC (4.30-5.90) m/uL Hgb (13.0-17.5) gm/dL Hct (39.0-53.0) % RDW (11.5-15.5) % Neutrophils # (1.3-7.7) k/uL Lymphocytes # (1.0-4.8) k/uL BUN (9-20) mg/dL Creatinine (0.66-1.25) mg/dL Glucose (74-99) mg/dL POC Glucose (mg/dL) 127 H 198 H (70-110) mg/dL Calcium (8.4-10.2) mg/dL Crossmatch See Detail 01/14/23 01/15/23 01/15/23 Range/Units 19:50 06:17 06:17 WBC 16.5 H (3.8-10.6) k/uL RBC 2.75 L (4.30-5.90) m/uL Hgb 8.6 L D (13.0-17.5) gm/dL Hct 27.1 L (39.0-53.0) % RDW 18.3 H (11.5-15.5) % Neutrophils # 14.4 H (1.3-7.7) k/uL Lymphocytes # 0.9 L (1.0-4.8) k/uL BUN 55 H (9-20) mg/dL Creatinine 8.22 H* (0.66-1.25) mg/dL Glucose 45 L* (74-99) mg/dL POC Glucose (mg/dL) 246 H (70-110) mg/dL Calcium 7.7 L (8.4-10.2) mg/dL Crossmatch 01/15/23 01/15/23 Range/Units 07:01 07:26 WBC (3.8-10.6) k/uL RBC (4.30-5.90) m/uL Hgb (13.0-17.5) gm/dL Hct (39.0-53.0) % RDW (11.5-15.5) % Neutrophils # (1.3-7.7) k/uL Lymphocytes # (1.0-4.8) k/uL BUN (9-20) mg/dL Creatinine (0.66-1.25) mg/dL Glucose (74-99) mg/dL POC Glucose (mg/dL) 52 L 354 H (70-110) mg/dL Calcium (8.4-10.2) mg/dL Crossmatch
[2023-01-15 11:20] LABS: Glucose,Whole Blood 151 mg/dL (70-110)
--- NOTE | 2023-01-15 11:48 | CA ---
Transthoracic Echo Report Name: Jack Egan Age: 72 Gender: M : 1950 Exam Date: 01/15/2023 08:26 Exam Location: [place] [facility] Ht (in): 67 Wt (lb): 180 Ordering Physician: Bobby Stone MD ([id number]) Attending/Referring Phys: Felting Machine Operator Bakari Foreman Procedure CPT: Indications: nstemi Cardiac Hx: Technical Quality: Fair Contrast 1: Total Dose (mL): Contrast 2: Total Dose (mL): MEASUREMENTS (Male / Female) Normal Values 2D ECHO LV Diastolic Diameter PLAX 4.4 cm 4.2 - 5.9 / 3.9 - 5.3 cm IVS Diastolic Thickness 1.6 cm 0.6 - 1.0 / 0.6 - 0.9 cm LVPW Diastolic Thickness 1.5 cm 0.6 - 1.0 / 0.6 - 0.9 cm LV Relative Wall Thickness 0.7 RV Internal Dim ED PLAX 2.2 cm LVOT Diameter 2.0 cm Aortic Root Diameter 3.5 cm LA Systolic Diameter LX 2.6 cm 3.0 - 4.0 / 2.7 - 3.8 cm LV Diastolic Volume MOD BP 100.3 cm??? 67 - 155 / 56 - 104 cm??? LV Systolic Volume MOD BP 55.5 cm??? 22 - 58 / 19 - 49 cm??? LV Ejection Fraction MOD BP 44.7 % >= 55 % LV Diastolic Volume MOD 4C 109.2 cm??? LV Systolic Volume MOD 4C 55.8 cm??? LV Ejection Fraction MOD 4C 48.9 % LV Diastolic Length 4C 8.4 cm LV Systolic Length 4C 7.7 cm LV Diastolic Volume MOD 2C 80.4 cm??? LV Systolic Volume MOD 2C 49.3 cm??? LV Ejection Fraction MOD 2C 38.7 % LV Diastolic Length 2C 7.3 cm LV Systolic Length 2C 6.8 cm Ascending Aorta Diameter 3.6 cm DOPPLER AV Peak Velocity 206.8 cm/s AV Peak Gradient 17.1 mmHg AV Mean Velocity 163.1 cm/s AV Mean Gradient 11.7 mmHg AV Velocity Time Integral 56.4 cm AI Peak Velocity 244.6 cm/s AI Peak Gradient 23.9 mmHg AI Pressure Half Time 893.9 ms LVOT Peak Velocity 75.0 cm/s LVOT Peak Gradient 2.2 mmHg LVOT Velocity Time Integral 22.0 cm LVOT Stroke Volume 71.9 cm??? LVOT Stroke Volume Index 37.2 ml/m??? AV Area Cont Eq vti 1.3 cm??? AV Area Cont Eq pk 1.2 cm??? MV Peak Velocity 152.6 cm/s MV Peak Gradient 9.3 mmHg MV Mean Velocity 84.0 cm/s MV Mean Gradient 3.5 mmHg MV Velocity Time Integral 64.4 cm MR Peak Velocity 424.2 cm/s MR Peak Gradient 72.0 mmHg Mitral E Point Velocity 131.7 cm/s Mitral A Point Velocity 131.2 cm/s Mitral E to A Ratio 1.0 MV Deceleration Time 256.4 ms TR Peak Velocity 268.5 cm/s TR Peak Gradient 28.8 mmHg Right Ventricular Systolic Press 34.0 mmHg PV Peak Velocity 177.1 cm/s PV Peak Gradient 12.5 mmHg FINDINGS Left Ventricle Left ventricular ejection fraction is estimated at 35-40 %. Concentric LVH. Right Ventricle Normal right ventricular size. Right Atrium Normal right atrial size. Left Atrium Mild left atrial dilatation. LA Volume index=40.1ml/m2 Mitral Valve Mitral Thickening. Mild to Moderate MR. Aortic Valve Moderate AV Calcification. Moderate AI. Estimateted AV Area= 1.2cm2 Tricuspid Valve Structurally normal tricuspid valve. Mild TR. RVSP=29mmhg Pulmonic Valve Pulmonic valve not well visualized. No pulmonic regurgitation. Pericardium Normal pericardium. Aorta Normal size aortic root and proximal ascending aorta. CONCLUSIONS LV systolic dysfunction with an ejection fraction of 35% Apical hypokinesis Mild to moderate mitral regurgitation Moderate aortic regurgitation Mild tricuspid regurgitation Previewed by: Dr. Yasmani Garcia MD (Electronically Signed) Final Date: 15 Jan 2023 11:47
[2023-01-15] MEDS: ACETAMINOPHEN TAB 325 MG TAB PO PRN (15:26)
[2023-01-15 16:23] LABS: Glucose,Whole Blood 264 mg/dL (70-110)
[2023-01-15 20:19] LABS: Glucose,Whole Blood 169 mg/dL (70-110)
[2023-01-15] MEDS: DULoxetine HCL 20 MG CAPSULE.DR PO SCH (21:14)
[2023-01-15] MEDS: MELATONIN 5 MG TABLET PO SCH (21:14)
[2023-01-15] MEDS: oxyBUTYnin chloride 5 MG TAB PO SCH (21:15)
[2023-01-15] MEDS: INSULIN DETEMIR (LEVEMIR) 100 UNIT/ML SYR SQ SCH (21:43)
[2023-01-16] MEDS: DIALYSIS (PERIT 1.5%) 2,500 ML 30 G/2,000 ML BAG INTRAPERIT SCH ×2 (00:15→05:59)
[2023-01-16 04:25] LABS: Glucose,Whole Blood 61 mg/dL (70-110)
[2023-01-16 04:49] LABS: Glucose,Whole Blood 95 mg/dL (70-110)
[2023-01-16 06:42] LABS: Anisocytosis Slight; Basophils % (A) 0 %; Eosinophils # (A) 0.1 k/uL (0-0.7); Eosinophils % (A) 1 %; HCT 25.7 % (39.0-53.0); HGB 8.1 gm/dL (13.0-17.5); Hypochromasia Moderate; Lymphocytes # (A) 0.4 k/uL (1.0-4.8); Lymphocytes % (A) 4 %; MCH 30.4 pg (25.0-35.0); MCHC 31.5 g/dL (31.0-37.0); MCV 96.4 fL (80.0-100.0); Macrocytosis Slight; Mean Platelet Volume 8.9; Monocytes # (A) 0.6 k/uL (0-1.0); Monocytes % (A) 5 %; Neutrophils # (A) 11.3 k/uL (1.3-7.7); Neutrophils % (A) 90 %; Platelet Count 362 k/uL (150-450); RBC 2.67 m/uL (4.30-5.90); WBC 12.6 k/uL (3.8-10.6)
[2023-01-16 06:51] LABS: Glucose,Whole Blood 69 mg/dL (70-110)
[2023-01-16 06:57] LABS: Calcium 7.5 mg/dL (8.4-10.2); Magnesium 1.6 mg/dL (1.6-2.3); Potassium 3.6 mmol/L (3.5-5.1)
[2023-01-16] MEDS: INSULIN ASPART (NovoLOG) 100 UNIT/ML VIAL SQ SCH (06:57)
[2023-01-16 07:24] LABS: Glucose,Whole Blood 71 mg/dL (70-110)
--- NOTE | 2023-01-16 07:37 | P.PN ---
Subjective Progress Note Date: 01/16/23 PROGRESS NOTE The patient is a 72-year-old male with a known history of CAD, PAD, end-stage renal disease who presented with non-STEMI and was found to have significant obstructive disease involving the RCA and underwent stenting of that vessel. He's feeling better this morning, he denies any chest discomfort, dizziness or palpitations. He is in sinus mechanism. He denies any nausea or vomiting. January 16: The patient is doing well this morning, denies any chest discomfort, dizziness or palpitations. He continues to be in sinus mechanism. He denies any nausea or vomiting. He has been ambulating. His echocardiogram showed an ejection fraction of 35-40% with mild to moderate mitral and moderate aortic regurgitation. He continues to receive peritoneal dialysis Medications: Aspirin, Plavix 75 g daily, Lipitor 80 mg daily, insulin, Lopressor 50 mg twice a day, Cymbalta, Neurontin,Zetia 10 mg daily,Xarelto 2.5 mg twice a day PHYSICAL EXAMINATION: Blood pressure 119/90 heart rate 65 LUNGS: Clear to auscultation HEART: Regular rate and rhythm, S1, S2. No S3. systolic ejection murmur ABDOMEN: Soft, nontender, no organomegaly EXTREMETIES: No edema LAB: BUN 57, creatinine 7.67, hemoglobin 8.1 IMPRESSION: 1. Status post non-STEMI and stenting of the RCA 2. History of CAD and PAD 3. End-stage renal disease on peritoneal dialysis 4. Hyperlipidemia 5. History of diabetes 6. Ischemic cardiomyopathy PLAN: 1. Continue present therapy 2. Probable discharge home today 3. Follow-up as an outpatient Objective - Vital Signs Vital signs: Vital Signs Temp 97.7 F 01/16/23 06:57 Pulse 65 01/16/23 06:57 Resp 16 01/16/23 06:57 BP 119/99 01/16/23 06:57 Pulse Ox 97 01/16/23 04:00 FiO2 Intake & Output 01/15/23 01/16/23 01/16/23 18:59 06:59 18:59 Intake Total 450 Output Total 1 0 Balance 449 0 Weight 82.4 kg Intake: Oral 450 Output: Urine 1 0 Other: Voiding Method Urinal # Voids 1 # Bowel Movements 1 - Labs CBC & Chem 7: 01/16/23 06:07 01/16/23 06:07 Labs: Abnormal Lab Results - Last 24 Hours (Table) 01/14/23 01/15/23 01/15/23 Range/Units 09:54 10:21 11:19 WBC (3.8-10.6) k/uL RBC (4.30-5.90) m/uL Hgb (13.0-17.5) gm/dL Hct (39.0-53.0) % RDW (11.5-15.5) % Neutrophils # (1.3-7.7) k/uL Lymphocytes # (1.0-4.8) k/uL BUN (9-20) mg/dL Creatinine (0.66-1.25) mg/dL Glucose (74-99) mg/dL POC Glucose (mg/dL) 151 H (70-110) mg/dL Calcium (8.4-10.2) mg/dL Phosphorus 7.0 H (2.5-4.5) mg/dL Crossmatch See Detail 01/15/23 01/15/23 01/16/23 Range/Units 16:21 20:17 04:23 WBC (3.8-10.6) k/uL RBC (4.30-5.90) m/uL Hgb (13.0-17.5) gm/dL Hct (39.0-53.0) % RDW (11.5-15.5) % Neutrophils # (1.3-7.7) k/uL Lymphocytes # (1.0-4.8) k/uL BUN (9-20) mg/dL Creatinine (0.66-1.25) mg/dL Glucose (74-99) mg/dL POC Glucose (mg/dL) 264 H 169 H 61 L (70-110) mg/dL Calcium (8.4-10.2) mg/dL Phosphorus (2.5-4.5) mg/dL Crossmatch 01/16/23 01/16/23 01/16/23 Range/Units 06:07 06:07 06:49 WBC 12.6 H (3.8-10.6) k/uL RBC 2.67 L (4.30-5.90) m/uL Hgb 8.1 L (13.0-17.5) gm/dL Hct 25.7 L (39.0-53.0) % RDW 18.0 H (11.5-15.5) % Neutrophils # 11.3 H (1.3-7.7) k/uL Lymphocytes # 0.4 L (1.0-4.8) k/uL BUN 57 H (9-20) mg/dL Creatinine 7.67 H* (0.66-1.25) mg/dL Glucose 56 L (74-99) mg/dL POC Glucose (mg/dL) 69 L (70-110) mg/dL Calcium 7.5 L (8.4-10.2) mg/dL Phosphorus (2.5-4.5) mg/dL Crossmatch
[2023-01-16] MEDS: SENNOSIDES-DOCUSATE SODIUM 1 EACH TAB PO SCH (09:09)
[2023-01-16] MEDS: SODIUM BICARBONATE TAB 650 MG TAB PO SCH (09:10)
[2023-01-16] MEDS: EZETIMIBE 10 MG TAB PO SCH (09:10)
[2023-01-16] MEDS: PANTOPRAZOLE 40 MG TABLET PO SCH (09:10)
[2023-01-16] MEDS: CLOPIDOGREL 75 MG TAB PO SCH (09:10)
[2023-01-16] MEDS: METOPROLOL TARTRATE 50 MG TAB PO SCH (09:10)
[2023-01-16] MEDS: ASPIRIN 81 MG PO SCH (09:10)
[2023-01-16] MEDS: ATORVASTATIN 80 MG TAB PO SCH (09:10)
[2023-01-16] MEDS: RIVAROXABAN 2.5 MG TABLET PO SCH (09:11)
[2023-01-16] MEDS: FOLIC ACID-VIT B COMPLEX-VIT C 1 CAP PO SCH (09:11)
[2023-01-16] MEDS: GABAPENTIN 100 MG CAP PO SCH (09:12)
[2023-01-16 09:39] VITALS: TEMP 98
--- NOTE | 2023-01-16 09:46 | P.DS ---
Providers Date of admission: 01/12/23 21:42 Expected date of discharge: 01/16/23 Attending physician: Myriam Colvin MD Consults: 01/12/23 21:40 Consult Physician Urgent Consulting Provider: Devon Munguia Consult Reason/Comments: nstemi Do you want consulting provider notified?: Yes 01/13/23 01:33 Consult Physician Routine Consulting Provider: Yulissa Ivory Consult Reason/Comments: peritoneal dialysis Do you want consulting provider notified?: Yes 01/13/23 03:10 Consult Physician Routine Consulting Provider: [facility] Consult Reason/Comments: Post Interventional Patient Do you want consulting provider notified?: Already Contacted 01/13/23 04:00 Consult Physician Routine Consulting Provider: Eduardo French Consult Reason/Comments: Peritoneal dialysis Do you want consulting provider notified?: Yes, Notify in am Primary care physician: [facility] [place] Course: Assessment: STEMI status post stents CAD Dyslipidemia History of peripheral vascular disease ESRD on peritoneal dialysis Hypomagnesemia, resolved Chronic normocytic anemia Leukocytosis, likely reactive Type 2 diabetes Hospital course: 72-year-old male with history of CAD status post stent, end-stage renal disease on peritoneal dialysis, diabetes, hypertension presented for STEMI. Initially patient presented with temperature of 98.5, pulse 84, respiratory rate 22, a pressure 135/57, saturating at 100% on room air. Laboratory analysis showed WBC 10, hemoglobin 7.4, creatinine 6.5, magnesium 1.5. EKG showed ST elevation in anterior leads. Patient had emergent left heart cath. Noted to have severe disease in the mid and distal RCA with a plaque rupture and thrombus, 2 stents placed in the RCA, had elevated left-sided filling pressures. Patient transferred to the medical ICU. Patient had an uncomplicated hospital course following his procedure. He had an echocardiogram which demonstrated reduced ejection fraction with wall motion abnormalities, ejection fraction was down to 35%. Patient was seen and cleared by cardiology, discharged on appropriate medications with instructions to follow-up with their service. I spent 34 minutes coordinating this discharge on 01/16 Gen: awake, alert HEENT: normocephalic, atraumatic, good hearing acuity, moist mucous membranes Resp: good air exchange, breathing comfortably with no accessory muscle use CVS: good distal perfusion x 4, GI: soft, NTTP, ND : no SPT, no CVAT, stephenson catheter not present MSK: no pitting edema, no clubbing Neuro: non-focal, moving all extremities Psych: cooperative, euthymic mood Patient Condition at Discharge: Good Plan - Discharge Summary New Discharge Prescriptions: New Atorvastatin [Lipitor] 80 mg PO DAILY #30 tab Metoprolol Tartrate [Lopressor] 50 mg PO BID #60 tab Clopidogrel [Plavix] 75 mg PO DAILY #30 tab Ezetimibe [Zetia] 10 mg PO DAILY #30 tab Darbepoetin Joel [Aranesp] 60 mcg SQ Q7D each Acetaminophen Tab [Tylenol] 650 mg PO Q6HR PRN tab PRN Reason: Fever and/ or Mild Pain Rivaroxaban [Xarelto] 2.5 mg PO BID #60 tab Continue Ergocalciferol (Vitamin D2) [Vitamin D2] 1,250 mcg PO Q14D Aspirin EC [Ecotrin Low Dose] 81 mg PO HS DULoxetine HCL [Cymbalta] 20 mg PO HS Melatonin 5 mg PO HS Sennosides-Docusate Sodium [Senokot-S] 2 tab PO TID Nitroglycerin Sl Tabs [Nitrostat] 0.4 mg SL Q5M PRN PRN Reason: Chest Pain Gabapentin [Neurontin] 100 mg PO TID oxyBUTYnin chloride [Ditropan] 5 mg PO HS Cyanocobalamin [Vitamin B-12] 1,000 mcg PO DAILY Potassium Chloride 20 meq PO DAILY rOPINIRole HCL [Requip] 0.5 mg PO TID Ondansetron [Zofran] 4 mg PO DAILY PRN PRN Reason: Nausea And Vomiting Omeprazole 80 mg PO BID Nephro-Deepa 1 tab PO DAILY Lactulose [Constulose] 10 gm PO DAILY PRN PRN Reason: Constipation Insulin Glargine,Hum.rec.anlog [Lantus Solostar Pen] 20 units SQ HS Sodium Bicarbonate Tab 650 mg PO DAILY Changed Furosemide [Lasix] 40 mg PO DAILY #0 Discontinued carvediloL [Coreg] 6.25 mg PO DAILY Midodrine HCl 5 mg PO BID PRN PRN Reason: SBP<115 Atorvastatin [Lipitor] 20 mg PO HS Ranolazine [Ranexa] 500 mg PO BID Isosorbide Mononitrate ER [Imdur] 60 mg PO DAILY Discharge Medication List Ergocalciferol (Vitamin D2) [Vitamin D2] 1,250 mcg PO Q14D 07/18/17 [History] Aspirin EC [Ecotrin Low Dose] 81 mg PO HS 02/10/18 [History] DULoxetine HCL [Cymbalta] 20 mg PO HS 10/27/20 [History] Melatonin 5 mg PO HS 12/19/20 [History] Sennosides-Docusate Sodium [Senokot-S] 2 tab PO TID 12/31/20 [History] Gabapentin [Neurontin] 100 mg PO TID 01/23/21 [History] Nitroglycerin Sl Tabs [Nitrostat] 0.4 mg SL Q5M PRN 01/23/21 [History] rOPINIRole HCL [Requip] 0.5 mg PO TID 01/23/21 [History] Ondansetron [Zofran] 4 mg PO DAILY PRN 05/08/21 [History] oxyBUTYnin chloride [Ditropan] 5 mg PO HS 06/28/21 [History] Lactulose [Constulose] 10 gm PO DAILY PRN 11/12/21 [History] Nephro-Deepa 1 tab PO DAILY 11/12/21 [History] Omeprazole 80 mg PO BID 11/12/21 [History] Cyanocobalamin [Vitamin B-12] 1,000 mcg PO DAILY 12/14/21 [History] Potassium Chloride 20 meq PO DAILY 11/29/22 [History] Insulin Glargine,Hum.rec.anlog [Lantus Solostar Pen] 20 units SQ HS 01/12/23 [History] Sodium Bicarbonate Tab 650 mg PO DAILY 01/12/23 [History] Acetaminophen Tab [Tylenol] 650 mg PO Q6HR PRN tab 01/16/23 [Rx] Atorvastatin [Lipitor] 80 mg PO DAILY #30 tab 01/16/23 [Rx] Clopidogrel [Plavix] 75 mg PO DAILY #30 tab 01/16/23 [Rx] Darbepoetin Joel [Aranesp] 60 mcg SQ Q7D each 01/16/23 [Rx] Ezetimibe [Zetia] 10 mg PO DAILY #30 tab 01/16/23 [Rx] Furosemide [Lasix] 40 mg PO DAILY #0 01/16/23 [Rx] Metoprolol Tartrate [Lopressor] 50 mg PO BID #60 tab 01/16/23 [Rx] Rivaroxaban [Xarelto] 2.5 mg PO BID #60 tab 01/16/23 [Rx] Follow up Appointment(s)/Referral(s): Bobby Stone MD [STAFF PHYSICIAN] - 1 Week [facility] [Primary Care Provider] - 1-2 days Discharge Disposition: HOME SELF-CARE
[2023-01-16 11:33] LABS: Glucose,Whole Blood 228 mg/dL (70-110)
--- NOTE | 2023-01-16 12:10 | P.PN ---
Subjective Patient is seen in follow-up for end-stage renal disease. He is maintained on peritoneal dialysis. Resting in bed. No chest pain or shortness of breath at this time. No problems with PD exchanges per nurse. No constipation. Going home today. Vital signs are stable. General: No acute distress. HEENT: Head exam is unremarkable. LUNGS: No audible rhonchi or wheezes. HEART: Rate and Rhythm are regular. ABDOMEN: Nontender. EXTREMITITES: No edema. Objective - Vital Signs Vital signs: Vital Signs Temp 98 F 01/16/23 08:00 Pulse 71 01/16/23 09:00 Resp 16 01/16/23 09:00 BP 140/85 01/16/23 08:00 Pulse Ox 97 01/16/23 09:00 FiO2 Intake & Output 01/15/23 01/16/23 01/16/23 18:59 06:59 18:59 Intake Total 450 360 Output Total 1 0 Balance 449 0 360 Weight 82.4 kg Intake: Oral 450 360 Output: Urine 1 0 Other: Voiding Method Urinal Urinal # Voids 1 # Bowel Movements 1 1 - Labs CBC & Chem 7: 01/16/23 06:07 01/16/23 06:07 Labs: Abnormal Lab Results - Last 24 Hours (Table) 01/15/23 01/15/23 01/16/23 Range/Units 16:21 20:17 04:23 WBC (3.8-10.6) k/uL RBC (4.30-5.90) m/uL Hgb (13.0-17.5) gm/dL Hct (39.0-53.0) % RDW (11.5-15.5) % Neutrophils # (1.3-7.7) k/uL Lymphocytes # (1.0-4.8) k/uL BUN (9-20) mg/dL Creatinine (0.66-1.25) mg/dL Glucose (74-99) mg/dL POC Glucose (mg/dL) 264 H 169 H 61 L (70-110) mg/dL Calcium (8.4-10.2) mg/dL 01/16/23 01/16/23 01/16/23 Range/Units 06:07 06:07 06:49 WBC 12.6 H (3.8-10.6) k/uL RBC 2.67 L (4.30-5.90) m/uL Hgb 8.1 L (13.0-17.5) gm/dL Hct 25.7 L (39.0-53.0) % RDW 18.0 H (11.5-15.5) % Neutrophils # 11.3 H (1.3-7.7) k/uL Lymphocytes # 0.4 L (1.0-4.8) k/uL BUN 57 H (9-20) mg/dL Creatinine 7.67 H* (0.66-1.25) mg/dL Glucose 56 L (74-99) mg/dL POC Glucose (mg/dL) 69 L (70-110) mg/dL Calcium 7.5 L (8.4-10.2) mg/dL 01/16/23 Range/Units 11:31 WBC (3.8-10.6) k/uL RBC (4.30-5.90) m/uL Hgb (13.0-17.5) gm/dL Hct (39.0-53.0) % RDW (11.5-15.5) % Neutrophils # (1.3-7.7) k/uL Lymphocytes # (1.0-4.8) k/uL BUN (9-20) mg/dL Creatinine (0.66-1.25) mg/dL Glucose (74-99) mg/dL POC Glucose (mg/dL) 228 H (70-110) mg/dL Calcium (8.4-10.2) mg/dL Assessment and Plan Plan: Assessment: 1. End-stage renal disease maintained on peritoneal dialysis. 2. Acute TN status post RCA stenting. Cardiology following. 3. Diabetes. 4. Anemia of chronic kidney disease maintained on Aranesp. 5. Chronic kidney disease mineral bone disease. Phosphorous 7.0. Plan: Maintain current PD exchanges - 2 L every 6 hours with 1.5% dextrose solution. Lactulose as needed for constipation. Stressed compliance with phosphate binders.
[2023-01-16 12:18] VITALS: BP 141/61; PULSE 65; RESP 18
== END 2023-01-16 12:19 | disposition home or self-care (01) | DRG 246 ==
LOC: EC 18:34 → 3SCARD 21:42 → 2SICU 01-13 02:05
PROVIDERS: ADMIT Internal Medicine; ATTEND Internal Medicine
PROC: B240ZZ3 Ultrasonography of Single Coronary Artery, Intravascular (ICD-10-PCS; principal; 2023-01-13 01:51)
PROC: 4A023N7 Measurement of Cardiac Sampling and Pressure, Left Heart, Percutaneous Approach (ICD-10-PCS; principal; 2023-01-13 01:51)
PROC: B2111ZZ Fluoroscopy of Multiple Coronary Arteries using Low Osmolar Contrast (ICD-10-PCS; principal; 2023-01-13 01:51)
PROC: 027035Z Dilation of Coronary Artery, One Artery with Two Drug-eluting Intraluminal Devices, Percutaneous Approach (ICD-10-PCS; principal; 2023-01-13 01:51)
PROC: B41F1ZZ Fluoroscopy of Right Lower Extremity Arteries using Low Osmolar Contrast (ICD-10-PCS; principal; 2023-01-13 01:51)
PROC: 3E1M39Z Irrigation of Peritoneal Cavity using Dialysate, Percutaneous Approach (ICD-10-PCS; 2023-01-13 01:51)
DX: I21.11 ST elevation (STEMI) myocardial infarction involving right coronary artery (principal); N18.6 End stage renal disease; D63.1 Anemia in chronic kidney disease; E83.9 Disorder of mineral metabolism, unspecified; E11.36 Type 2 diabetes mellitus with diabetic cataract; I95.9 Hypotension, unspecified; E11.22 Type 2 diabetes mellitus with diabetic chronic kidney disease; E11.51 Type 2 diabetes mellitus with diabetic peripheral angiopathy without gangrene; E11.40 Type 2 diabetes mellitus with diabetic neuropathy, unspecified; I11.0 Hypertensive heart disease with heart failure; I50.9 Heart failure, unspecified; Z99.2 Dependence on renal dialysis; I25.119 Atherosclerotic heart disease of native coronary artery with unspecified angina pectoris; J44.9 Chronic obstructive pulmonary disease, unspecified; I45.4 Nonspecific intraventricular block; F43.10 Post-traumatic stress disorder, unspecified; E83.42 Hypomagnesemia; E78.5 Hyperlipidemia, unspecified; G25.81 Restless legs syndrome; H26.9 Unspecified cataract; I25.5 Ischemic cardiomyopathy; I08.0 Rheumatic disorders of both mitral and aortic valves; D72.829 Elevated white blood cell count, unspecified; K21.9 Gastro-esophageal reflux disease without esophagitis; M54.42 Lumbago with sciatica, left side; M54.41 Lumbago with sciatica, right side; I25.2 Old myocardial infarction; F17.210 Nicotine dependence, cigarettes, uncomplicated; Z79.82 Long term (current) use of aspirin; Z79.899 Other long term (current) drug therapy; Z88.8 Allergy status to other drugs, medicaments and biological substances; Z91.041 Radiographic dye allergy status; Z95.5 Presence of coronary angioplasty implant and graft
CPT/HCPCS: 36415; 71046; 80048; 80053; 80061; 81001; 83540; 83550; 83735; 84100; 84484; 85025; 85610; 85730; 86850; 86900; 86901; 86920; 92978; 93005; 93306; 93458; 96365; 96366; 99291

== ENCOUNTER 2023-01-25 21:25 | Emergency (ER) | payer OTHER, MEDICARE ==
[2023-01-25] MEDS ORDERED: SODIUM CHLORIDE 0.9% 1,000 ML IV STA (21:35)
[2023-01-25] MEDS ORDERED: HEPARIN SODIUM 1,000 UN/ML (10ML VL) IV ONE (21:36)
[2023-01-25] MEDS ORDERED: HEPARIN SODIUM 1,000 UN/ML (10ML VL) IV PRN (21:36)
[2023-01-25] MEDS ORDERED: MORPHINE SULFATE 4 MG/ML SYRINGE IVP STA ×2 (21:36→22:49)
[2023-01-25 21:45] LABS: Glucose,Whole Blood 299 mg/dL (70-110)
[2023-01-25] MEDS ORDERED: HEPARIN SOD,PORK IN 0.45% NACL 25,000 UNIT in 0.45% NACL 1 250ML.BAG IV SCH (21:45)
[2023-01-25 22:48] LABS: Anisocytosis Slight; Basophils % (A) 0 %; Eosinophils # (A) 0.1 k/uL (0-0.7); Eosinophils % (A) 1 %; Hypochromasia Marked; Lymphocytes # (A) 0.7 k/uL (1.0-4.8); Lymphocytes % (A) 6 %; MCH 28.4 pg (25.0-35.0); MCHC 29.9 g/dL (31.0-37.0); Macrocytosis Slight; Mean Platelet Volume 8.4; Monocytes # (A) 0.5 k/uL (0-1.0); Monocytes % (A) 4 %; Neutrophils % (A) 88 %; Platelet Count 412 k/uL (150-450); Poikilocytosis Moderate; RBC 2.02 m/uL (4.30-5.90); RDW 19.2 % (11.5-15.5); WBC 11.5 k/uL (3.8-10.6)
[2023-01-25 22:53] LABS: HGB 5.7 gm/dL (13.0-17.5)
--- NOTE | 2023-01-25 22:53 | XR ---
EXAMINATION TYPE: XR chest 2V DATE OF EXAM: 01/25/2023 9:55 PM COMPARISON: Chest radiographs from 01/12/2023 TECHNIQUE: XR chest 2V Frontal and lateral views of the chest. CLINICAL INDICATION:Male, 72 years old with history of Chest Pain; FINDINGS: Lungs/Pleura: There is no evidence of pleural effusion, focal consolidation, or pneumothorax. Pulmonary vascularity: Pulmonary vascular congestion. Heart/mediastinum: Cardiomediastinal silhouette is enlarged and stable. Musculoskeletal: No acute osseous pathology. Other findings: None Lines/Tubes: [id number]-m-[id number] projecting over the right hemithorax with distal tip at the cavoatrial junction. IMPRESSION: Cardiomegaly and mild pulmonary vascular congestion. Correlate with BNP for congestive heart failure.
[2023-01-25 22:54] LABS: HCT 19.2 % (39.0-53.0)
[2023-01-25 23:05] LABS: ALT 20 U/L (4-49); AST 28 U/L (17-59); African American GFR (CKD) 10 (>60 ml/min/1.73 sqM); Albumin 2.9 g/dL (3.5-5.0); Alkaline Phosphatase 116 U/L (38-126); Anion Gap 14 mmol/L; Blood Urea Nitrogen 74 mg/dL (9-20); Calcium 7.8 mg/dL (8.4-10.2); Carbon Dioxide 21 mmol/L (22-30); Chloride 97 mmol/L (98-107); Glucose 238 mg/dL (74-99); Lipase 269 U/L (23-300); Non-African American GFR(CKD) 8 (>60 ml/min/1.73 sqM); Potassium 4.1 mmol/L (3.5-5.1); Sodium 132 mmol/L (137-145); Total Bilirubin 0.3 mg/dL (0.2-1.3); Total Protein 5.6 g/dL (6.3-8.2)
[2023-01-25 23:25] LABS: Magnesium 1.4 mg/dL (1.6-2.3)
[2023-01-25] MEDS ORDERED: NITROGLYCERIN-D5W PMX 50 MG in DEXTROSE/WATER 1 250ML.BAG IV ONE (23:29)
--- NOTE | 2023-01-25 23:44 | ED ---
General Adult HPI - General Chief complaint: Chest Pain Stated complaint: Chest pain Time Seen by Provider: 01/25/23 21:37 Source: patient Mode of arrival: ambulatory Limitations: no limitations - History of Present Illness Initial comments: Patient is a 72-year-old male with past medical history remarkable for recent cardiac stent of the RCA on 01/13/2023, peritoneal dialysis, somewhat chronic dark tarry stools and GI bleed, chronic leg pain, diabetes, hypertension, who presents emergency Department complaining of chest pain. Began approximately 1- 2 hours prior to arrival. Attempted to take 2 nitros at home withrelief. EMS arrived and states that they gave an additional 1-2 of nitro as well as 324 mg of aspirin. No improvement in symptoms. Brought him here for further evaluation. Patient describes the pain as left-sided chest pain with radiation towards his left neck. States it is similar to the pain when he last presented when he received a cardiac stent. Denies shortness of breath. Denies abdominal pain, nausea, vomiting, diarrhea. States he didn't become sweaty earlier but that resolved. Primary complaint is the pain at this time. States he still is been having chronic dark tarry stools with no change. This is been unchanged for what he describes as months. He is concerned, as he was placed on Plavix upon discharge at the end of December. Patient was also prescribed xeralto at that time but he has not been taking it. Presents for further evaluation at this time. Denies any hematochezia. Denies any hematemesis. - Related Data Home Medications Medication Instructions Recorded Confirmed Ergocalciferol (Vitamin D2) 1,250 mcg PO Q14D 07/18/17 01/12/23 [Vitamin D2] Aspirin EC [Ecotrin Low Dose] 81 mg PO HS 02/10/18 01/12/23 DULoxetine HCL [Cymbalta] 20 mg PO HS 10/27/20 01/12/23 Melatonin 5 mg PO HS 12/19/20 01/12/23 Sennosides-Docusate Sodium 2 tab PO TID 12/31/20 01/12/23 [Senokot-S] Gabapentin [Neurontin] 100 mg PO TID 01/23/21 01/12/23 Nitroglycerin Sl Tabs [Nitrostat] 0.4 mg SL Q5M PRN 01/23/21 01/12/23 rOPINIRole HCL [Requip] 0.5 mg PO TID 01/23/21 01/12/23 Ondansetron [Zofran] 4 mg PO DAILY PRN 05/08/21 01/12/23 oxyBUTYnin chloride [Ditropan] 5 mg PO HS 06/28/21 01/12/23 Lactulose [Constulose] 10 gm PO DAILY PRN 11/12/21 01/12/23 Nephro-Deepa 1 tab PO DAILY 11/12/21 01/12/23 Omeprazole 80 mg PO BID 11/12/21 01/12/23 Cyanocobalamin [Vitamin B-12] 1,000 mcg PO DAILY 12/14/21 01/12/23 Potassium Chloride 20 meq PO DAILY 11/29/22 01/12/23 Insulin Glargine,Hum.rec.anlog 20 units SQ HS 01/12/23 01/12/23 [Lantus Solostar Pen] Sodium Bicarbonate Tab 650 mg PO DAILY 01/12/23 01/12/23 Previous Rx's Medication Instructions Recorded Acetaminophen Tab [Tylenol] 650 mg PO Q6HR PRN tab 01/16/23 Atorvastatin Calcium [Lipitor] 80 mg PO DAILY #30 tablet 01/16/23 Clopidogrel [Plavix] 75 mg PO DAILY #30 tablet 01/16/23 Darbepoetin Joel [Aranesp] 60 mcg SQ Q7D #5 each 01/16/23 Ezetimibe [Zetia] 10 mg PO DAILY #30 tab 01/16/23 Furosemide [Lasix] 40 mg PO DAILY #0 01/16/23 Metoprolol Tartrate [Lopressor] 50 mg PO BID #60 tab 01/16/23 Rivaroxaban [Xarelto] 2.5 mg PO BID #60 tab 01/16/23 Allergies Allergy/AdvReac Type Severity Reaction Status Date / Time Iodinated Contrast Media AdvReac CAN'T Verified 01/25/23 21:33 TAKE, RENAL DISEASE Iodine and Iodide Containing AdvReac CAN'T Verified 01/25/23 21:33 Produc TAKE, RENAL DISEASE Review of Systems ROS Statement: Those systems with pertinent positive or pertinent negative responses have been documented in the HPI. Review of Systems: CONST: Denies fever EYES: Denies blurry vision ENT: Denies nasal congestion C/V: Endorses chest pain RESP: Denies shortness of breath GI: Denies abdominal pain : Denies dysuria SKIN: Denies rash. MSK: Denies joint pain. NEURO: Denies headache ROS Other: All systems not noted in ROS Statement are negative. Past Medical History Past Medical History: Coronary Artery Disease (CAD), Chest Pain / Angina, Heart Failure, COPD, Diabetes Mellitus, Dialysis, GERD/Reflux, GI Bleed, Hyperlip idemia, Hypertension, Myocardial Infarction (NH), Pneumonia, Renal Disease, Vascular Disorder Additional Past Medical History / Comment(s): Lower GI bleeds/suspect micro bleeds in intestine, occasional abdominal bloating, IDDM type II, neuropathy bilateral feet, ESRD with peritoneal dialysis ((cycler at night for 5 hours), past hemodialysis/spouse states she was told L upper arm fistula is plugged again, chronic anemia/transfusion of blood/iron, past partial SBO, benign colon polyps, chronic low back pain with bilateral sciatica, PVD, RLS, vertigo, insomnia, 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 Last Myocardial Infarction Date:: 03/2020 History of Any Multi-Drug Resistant Organisms: None Reported Past Surgical History: Cholecystectomy, Heart Catheterization With Stent Additional Past Surgical History / Comment(s): 03/25/20 R sublclavian mediport, R carotid stent done in [place], EGD/colonoscopy, endoscopic capsule, ORIF left wrist, aortagram, bilateral leg revascularizations/stents, left upper arm fistula and on 12/15/21 had thrombectomy balloon angioplasty of L arm fistula, peritoneal dialysis catheter removal and insertion (11/23/21). Past Anesthesia/Blood Transfusion Reactions: No Reported Reaction Additional Past Anesthesia/Blood Transfusion Reaction / Comment(s): Pt has had multiple blood transfusions without reaction. Date of Last Stent Placement:: 03/2021 Past Psychological History: No Psychological Hx Reported, PTSD Smoking Status: Current every day smoker Past Alcohol Use History: None Reported Past Drug Use History: None Reported - Past Family History Father History Unknown: Yes Mother Family Medical History: Cancer Additional Family Medical History / Comment(s): Mother from metastatic cancer pelvic origin. General Exam - General Exam Comments Initial Comments: General: Appears in mild to moderate distress secondary to chest pain. HEAD: Normal with no signs of head trauma. EYES: PERRLA, EOMI, conjunctiva normal, no discharge. ENT: Hearing grossly intact, normal oropharynx. RESPIRATORY: Clear breath sounds bilaterally. No wheezes, rales, or rhonchi. Mild tachypnea, seems pain related. C/V: Regular rate and rhythm. S1 and S2 auscultated, no edema, peripheral pulses 2+ and intact throughout ABD: Abd is soft, nontender, nondistended. Rectal exam shows dark black stools. Good tone. EXT: Normal range of motion, no obvious deformity SKIN: No rashes or lesions observed on exposed skin. NEURO: Alert and oriented 4. No focal deficits. Limitations: no limitations Course Vital Signs 01/25/23 01/25/23 01/25/23 21:26 21:34 21:35 Temperature 97 F L Pulse Rate 96 95 Pulse Rate [ 94 Left Radial] Respiratory 38 H 16 Rate Blood Pressure 125/65 120/68 O2 Sat by Pulse 98 100 Oximetry 01/25/23 01/25/23 01/25/23 21:39 22:00 22:30 Temperature 97.9 F Pulse Rate 93 97 90 Pulse Rate [ Left Radial] Respiratory 18 16 18 Rate Blood Pressure 119/64 128/64 129/70 O2 Sat by Pulse 100 99 99 Oximetry 01/25/23 01/25/23 01/25/23 22:40 22:50 23:00 Temperature Pulse Rate 97 102 H Pulse Rate [ Left Radial] Respiratory 26 H 18 44 H Rate Blood Pressure 102/56 123/111 115/65 O2 Sat by Pulse 100 97 96 Oximetry 01/25/23 01/26/23 01/26/23 23:10 00:09 00:21 Temperature 98.4 F 98.2 F Pulse Rate 101 H 93 92 Pulse Rate [ Left Radial] Respiratory 31 H 20 18 Rate Blood Pressure 119/64 104/75 129/66 O2 Sat by Pulse 95 Oximetry 01/26/23 01/26/23 01/26/23 00:31 00:41 01:00 Temperature 98.6 F 98.8 F Pulse Rate 96 96 103 H Pulse Rate [ Left Radial] Respiratory 18 97 H 18 Rate Blood Pressure 129/75 121/68 124/67 O2 Sat by Pulse 97 98 97 Oximetry Medical Decision Making - Medical Decision Making Was pt. sent in by a medical professional or institution (, PA, PUBLIC POLICY ANALYST, urgent care, hospital, or retirement...) When possible be specific @ -No Did you speak to anyone other than the patient for history (EMS, parent, family, police, friend...)? What history was obtained from this source @ -No Did you review nursing and triage notes (agree or disagree)? Why? @ -I reviewed and agree with nursing and triage notes Were old charts reviewed (outside hosp., previous admission, EMS record, old EKG, old radiological studies, urgent care reports/EKG's, retirement records)? Report findings @ -Old charts reviewed from December 2022 Differential Diagnosis (chest pain, altered mental status, abdominal pain women, abdominal pain men, vaginal bleeding, weakness, fever, dyspnea, syncope, headache, dizziness, GI bleed, back pain, seizure, CVA, palpatations, mental health, musculoskeletal)? @ -Differential Chest Pain: Stable Angina, Unstable Angina, STEMI, NSTEMI Aortic Dissection, Pneumothorax, Musculoskeletal, Esophageal Spasm GERD, Cholecystitis, Pancreatitis, Zoster, this is not meant to be an all-inclusive list. Differential GI Bleed: Esophageal varices, aortoenteric fistula, Jaky-Phillips, gastritis, peptic ulcer disease, diverticulosis, inflammatory bowel disease, hemorrhoids, fissure, colitis, malignancy, Meckels diverticulum, this is not meant to be an all- inclusive list. EKG interpreted by me (3pts min.). @ -As above X-rays interpreted by me (1pt min.). @ -Chest x-ray shows no obvious acute cardio pulmonary process. Possible mild pulmonary vascular congestion. CT interpreted by me (1pt min.). @ -None done U/S interpreted by me (1pt. min.). @ -None done What testing was considered but not performed or refused? (CT, X-rays, U/S, labs)? Why? @ -None What meds were considered but not given or refused? Why? @ -None Did you discuss the management of the patient with other professionals (professionals i.e. , PA, PUBLIC POLICY ANALYST, lab, RT, psych nurse, social studies teacher, director of government sales, teacher, driver's license reviewing officer, case picker)? Give summary @ -I discussed the case with the on-call air conditioning insulation installer, Dr. Dowell after STEMI pager was initially activated over concern for the patient's third EKG. He did review the EKG, as well as patient's prior EKGs, Reports, labs. We discussed and agreed that this EKG does not technically meet sclerosis criteria. Has a history of left bundle-branch block. He believes the patient's symptoms likely related to the GI bleeding and anemia and recommended we treat this at this time. Recommended we hold heparin. Patient already received 324 mg of aspirin. Recommended discussion with required specialist for management of the GI bleed. Does not believe patient requires an emergent cardiac cath. We believe this is an NSTEMI currently. I was in agreement with this plan. I did speak with Dr. Huerta on the on-call surgeon, and as we do not have GI available at her facility, patient be transferred for management of the GI bleed and anemia aspect of his complaints. I spoke with the accepting physicians, Dr. Vazquez of GI at [facility] who was in agreement with the plan. Was in agreement with reversal of the initial heparin bolus with protamine sulfate, as well as requested that the patient be transfused and was in agreement to units. Patient also receive IV Protonix. I spoke with the accepting ER physician Dr. Collazo who accepted the patient. Was smoking cessation discussed for >3mins.? @ -No Was critical care preformed (if so, how long)? @ -Yes, 82 minutes. Were there social determinants of health that impacted care today? How? (Homelessness, low income, unemployed, alcoholism, drug addiction, transportation, low edu. Level, literacy, decrease access to med. care, senior care, rehab)? @ -No Was there de-escalation of care discussed even if they declined (Discuss DNR or withdrawal of care, Hospice)? DNR status @ -No What co-morbidities impacted this encounter? (DM, HTN, Smoking, COPD, CAD, Cancer, CVA, ARF, Chemo, Hep., AIDS, mental health diagnosis, sleep apnea, morbid obesity)? @ -History of GI bleeds, CAD with stents, peritoneal dialysis Was patient admitted / discharged? Hospital course, mention meds given and route, prescriptions, significant lab abnormalities, going to OR and other pertinent info. @ -Based on the patient's presentation and physical exam, presents as a chest pain patient with chronic dark tarry stools. Patient recently had stenting included. Initial presentation EKG was unremarkable and therefore we will obta in cardiac workup. Patient was empirically started on heparin for ACS. He only received a bolus. Already received aspirin from EMS. Nitro tablets did nothing for the patient's pain and route to the hospital May for which he was started on IV morphine. We will obtain a cardiopulmonary labs. He was in agreement this plan. Vital signs are within acceptable limits. Second EKG also was unremarkable and redemonstrated his chronic left bundle branch block. Chest x-ray showing no obvious process. Labs were remarkable for an anemia 5.7. APTT is elevated secondary to the heparin bolus. Troponin was found to be 0.6 6. Occult blood was obtained and was positive. Elevated BUN/creatinine in the setting of ESRD on peritoneal dialysis. Patient had a sudden episode of worsening chest pain. We obtain an EKG at that time and it showed some dynamic changes, but did ultimately redemonstrated the patient's left bundle-branch block. There is borderline scarbosas due to some increased elevations, and I did initially activated the STEMI pager. After discussion with Dr. Dowell of cardiology on-call, who reviewed the patient's EKGs, labs, as well as previous cardiac cath and stenting, we both determined that the patient's EKG does not reveal STEMI but rather left bundle-branch block. Patient not be taken to Data Engineer at this time his symptoms are likely secondary to his acute anemia. We agreed to hold heparin at this time, as well as start the patient on a nitro drip for chest pain. STEMI activation was canceled. We will trend troponins. The patient received the heparin bolus, I did reverse it with IV protamine. He was started on Protonix. We'll hold further anticoagulation at this time. 2 units of packed red blood cells were ordered for the patient as well. Due to GI bleeding component of this, I did reach out to our surgeon on-call Dr. Huerta who requested transfer as we do not have GI available at our facilities. I did discuss this with the patient and he was in agreement with transfer. We initially attempted transfer to [facility] who is close to transfers. We then reached out to [facility] who did accept the transfer. Accepting physicians are Dr. Vazquez of GI and Dr. Collazo of the ED. Patient is currently on a nitro drip, receiving his 2 units of packed red blood cells. Pain is controlled. Resting comfortably. Vital signs within acceptable limits. He was in agreement with the transfer. Patient will be transferred in serious condition. Undiagnosed new problem with uncertain prognosis? @ -No Drug Therapy requiring intensive monitoring for toxicity (Heparin, Nitro, Insuli n, Cardizem)? @ -Nitro Were any procedures done? @ -No Diagnosis/symptom? @ -NSTEMI Acute, or Chronic, or Acute on Chronic? @ -Acute Uncomplicated (without systemic symptoms) or Complicated (systemic symptoms)? @ -Complicated Side effects of treatment? @ -No Exacerbation, Progression, or Severe Exacerbation? @ -No Poses a threat to life or bodily function? How? (Chest pain, [place], NH, pneumonia, PE, COPD, DKA, ARF, appy, cholecystitis, CVA, Diverticulitis, Homicidal, Suicidal, threat to staff... and all critical care pts) @ -Yes Diagnosis/symptom? @ -Lower GI bleed, blood loss anemia Acute, or Chronic, or Acute on Chronic? @ -Acute on chronic Uncomplicated (without systemic symptoms) or Complicated (systemic symptoms)? @ -Complicated Side effects of treatment? @ -none Exacerbation, Progression, or Severe Exacerbation] @ -no Poses a threat to life or bodily function? @ -Yes Diagnosis/symptom? @ -ESRD on peritoneal dialysis Acute, or Chronic, or Acute on Chronic? @ -Chronic Uncomplicated (without systemic symptoms) or Complicated (systemic symptoms)? @ -Uncomplicated Side effects of treatment? @ -none Exacerbation, Progression, or Severe Exacerbation] @ -no Poses a threat to life or bodily function? @ -no - Lab Data Result diagrams: 01/25/23 22:16 01/25/23 22:16 Lab Results 01/25/23 01/25/23 01/25/23 Range/Units 21:43 22:11 22:16 WBC 11.5 H (3.8-10.6) k/uL RBC 2.02 L (4.30-5.90) m/uL Hgb 5.7 L* D (13.0-17.5) gm/dL Hct 19.2 L* (39.0-53.0) % MCV 95.0 (80.0-100.0) fL MCH 28.4 (25.0-35.0) pg MCHC 29.9 L (31.0-37.0) g/dL RDW 19.2 H (11.5-15.5) % Plt Count 412 (150-450) k/uL MPV 8.4 Neutrophils % 88 % Lymphocytes % 6 % Monocytes % 4 % Eosinophils % 1 % Basophils % 0 % Neutrophils # 10.0 H (1.3-7.7) k/uL Lymphocytes # 0.7 L (1.0-4.8) k/uL Monocytes # 0.5 (0-1.0) k/uL Eosinophils # 0.1 (0-0.7) k/uL Basophils # 0.0 (0-0.2) k/uL Hypochromasia Marked Poikilocytosis Moderate Anisocytosis Slight Macrocytosis Slight PT (9.0-12.0) sec INR (<1.2) APTT (22.0-30.0) sec Sodium (137-145) mmol/L Potassium (3.5-5.1) mmol/L Chloride (98-107) mmol/L Carbon Dioxide (22-30) mmol/L Anion Gap mmol/L BUN (9-20) mg/dL Creatinine (0.66-1.25) mg/dL Est GFR (CKD-EPI)AfAm (>60 ml/min/1.73 sqM) Est GFR (CKD-EPI)NonAf (>60 ml/min/1.73 sqM) Glucose (74-99) mg/dL POC Glucose (mg/dL) 299 H (70-110) mg/dL POC Glu Flight Operations Specialist ID Sandy, Caitlin Calcium (8.4-10.2) mg/dL Magnesium (1.6-2.3) mg/dL Total Bilirubin (0.2-1.3) mg/dL AST (17-59) U/L ALT (4-49) U/L Alkaline Phosphatase (38-126) U/L Troponin I (0.000-0.034) ng/mL Total Protein (6.3-8.2) g/dL Albumin (3.5-5.0) g/dL Lipase (23-300) U/L Stool Occult Blood (Negative) Blood Type B Positive Blood Type Recheck B Pos Bld Type Recheck Status No Antibody Screen NEGATIVE Crossmatch See Detail Spec Expiration Date 01/28/2023 - 2311 01/25/23 01/25/23 01/25/23 Range/Units 22:16 22:16 23:10 WBC (3.8-10.6) k/uL RBC (4.30-5.90) m/uL Hgb (13.0-17.5) gm/dL Hct (39.0-53.0) % MCV (80.0-100.0) fL MCH (25.0-35.0) pg MCHC (31.0-37.0) g/dL RDW (11.5-15.5) % Plt Count (150-450) k/uL MPV Neutrophils % % Lymphocytes % % Monocytes % % Eosinophils % % Basophils % % Neutrophils # (1.3-7.7) k/uL Lymphocytes # (1.0-4.8) k/uL Monocytes # (0-1.0) k/uL Eosinophils # (0-0.7) k/uL Basophils # (0-0.2) k/uL Hypochromasia Poikilocytosis Anisocytosis Macrocytosis PT 11.3 (9.0-12.0) sec INR 1.1 (<1.2) APTT 152.9 H* (22.0-30.0) sec Sodium 132 L (137-145) mmol/L Potassium 4.1 (3.5-5.1) mmol/L Chloride 97 L (98-107) mmol/L Carbon Dioxide 21 L (22-30) mmol/L Anion Gap 14 mmol/L BUN 74 H (9-20) mg/dL Creatinine 6.10 H (0.66-1.25) mg/dL Est GFR (CKD-EPI)AfAm 10 (>60 ml/min/1.73 sqM) Est GFR (CKD-EPI)NonAf 8 (>60 ml/min/1.73 sqM) Glucose 238 H (74-99) mg/dL POC Glucose (mg/dL) (70-110) mg/dL POC Glu Flight Operations Specialist ID Calcium 7.8 L (8.4-10.2) mg/dL Magnesium 1.4 L (1.6-2.3) mg/dL Total Bilirubin 0.3 (0.2-1.3) mg/dL AST 28 (17-59) U/L ALT 20 (4-49) U/L Alkaline Phosphatase 116 (38-126) U/L Troponin I 0.696 H* (0.000-0.034) ng/mL Total Protein 5.6 L (6.3-8.2) g/dL Albumin 2.9 L (3.5-5.0) g/dL Lipase 269 (23-300) U/L Stool Occult Blood (Negative) Blood Type Blood Type Recheck Bld Type Recheck Status Antibody Screen Crossmatch Spec Expiration Date 01/25/23 Range/Units 23:55 WBC (3.8-10.6) k/uL RBC (4.30-5.90) m/uL Hgb (13.0-17.5) gm/dL Hct (39.0-53.0) % MCV (80.0-100.0) fL MCH (25.0-35.0) pg MCHC (31.0-37.0) g/dL RDW (11.5-15.5) % Plt Count (150-450) k/uL MPV Neutrophils % % Lymphocytes % % Monocytes % % Eosinophils % % Basophils % % Neutrophils # (1.3-7.7) k/uL Lymphocytes # (1.0-4.8) k/uL Monocytes # (0-1.0) k/uL Eosinophils # (0-0.7) k/uL Basophils # (0-0.2) k/uL Hypochromasia Poikilocytosis Anisocytosis Macrocytosis PT (9.0-12.0) sec INR (<1.2) APTT (22.0-30.0) sec Sodium (137-145) mmol/L Potassium (3.5-5.1) mmol/L Chloride (98-107) mmol/L Carbon Dioxide (22-30) mmol/L Anion Gap mmol/L BUN (9-20) mg/dL Creatinine (0.66-1.25) mg/dL Est GFR (CKD-EPI)AfAm (>60 ml/min/1.73 sqM) Est GFR (CKD-EPI)NonAf (>60 ml/min/1.73 sqM) Glucose (74-99) mg/dL POC Glucose (mg/dL) (70-110) mg/dL POC Glu Flight Operations Specialist ID Calcium (8.4-10.2) mg/dL Magnesium (1.6-2.3) mg/dL Total Bilirubin (0.2-1.3) mg/dL AST (17-59) U/L ALT (4-49) U/L Alkaline Phosphatase (38-126) U/L Troponin I (0.000-0.034) ng/mL Total Protein (6.3-8.2) g/dL Albumin (3.5-5.0) g/dL Lipase (23-300) U/L Stool Occult Blood Positive (Negative) Blood Type Blood Type Recheck Bld Type Recheck Status Antibody Screen Crossmatch Spec Expiration Date - EKG Data -: EKG Interpreted by Me EKG Comments: 12-lead Electrocardiogram Interpretation Note EKG was reviewed and interpreted by myself. 12-lead ECG performed at 2127 is interpreted by me as revealing sinus tachycardia at a rate of 101 beats per minute. [place] is normal. PA interval is 104 ms, QRS duration is 114 ms, QTc is 418 ms.. Patient appears to have a chronic left bundle branch block morphology. There were no ST or T wave abnormalities to suggest myocardial ischemia or injury. R wave progression across the precordium was delayed. By my interpretation this EKG is non-diagnostic for acute ischemia. 12-lead Electrocardiogram Interpretation Note EKG was reviewed and interpreted by myself. 12-lead ECG performed at 2207 is interpreted by me as revealing normal sinus rhythm at a rate of 83 beats per minute. [place] is normal. PA interval is 122 ms, QT C is 454 ms and a QRS duration is 109 ms.. Left bundle branch block morphology still seen. There wer e no ST or T wave abnormalities to suggest myocardial ischemia or injury. R wave progression across the precordium was delayed. By my interpretation this EKG is non-diagnostic for acute ischemia. 12-lead Electrocardiogram Interpretation Note EKG was reviewed and interpreted by myself. 12-lead ECG performed at 2253 is interpreted by me as revealing normal sinus rhythm at a rate of 98 beats per mi nute. [place] is normal. PA interval is 173 ms, QRS duration is 171 ms, QTc is 426 ms.. Left bundle branch block at this time is more prominent with some ST segment elevation. Borderline positive prescribed doses criteria. No evidence of elevation in V4. Slight elevation in aVR. . R wave progression across the precordium was delayed. Critical Care Time Critical Care Time: Yes Total Critical Care Time: 82 Disposition Clinical Impression: GI bleed, Blood loss anemia, NSTEMI (non-ST elevated myocardial infarction), History of left bundle branch block Disposition: OTHER INSTITUTION NOT DEFINED Condition: Serious Referrals: [facility],Clinic [Primary Care Provider] - 1-2 days Time of Disposition: 23:30 - Out of Hospital Transfer - Req. Specs Out of Hospital Transfer - Requested Specifics: Other Emergency Center (Transferred to [facility] for nstemi and gi bleed. Requires GI coverage which we do not have.)
[2023-01-25 23:45] LABS: INR 1.1 (<1.2); Prothrombin Time 11.3 sec (9.0-12.0)
[2023-01-25 23:51] LABS: Partial Thromboplastin Time 152.9 sec (22.0-30.0)
[2023-01-26] MEDS ORDERED: PROTAMINE SULFATE 10 MG/ML 5 ML VIAL IV STA (00:10)
[2023-01-26] MEDS ORDERED: PANTOPRAZOLE 40 MG/10 ML VIAL IVP SCH (00:45)
[2023-01-26 02:06] VITALS: BP 124/67; PULSE 103; RESP 18; TEMP 98.8
== END 2023-01-26 01:38 | disposition other institution (70) ==
LOC: EC 21:25
DX: K92.2 Gastrointestinal hemorrhage, unspecified (principal); D50.0 Iron deficiency anemia secondary to blood loss (chronic); I21.4 Non-ST elevation (NSTEMI) myocardial infarction; E11.22 Type 2 diabetes mellitus with diabetic chronic kidney disease; E78.5 Hyperlipidemia, unspecified; I11.0 Hypertensive heart disease with heart failure; I50.9 Heart failure, unspecified; I25.10 Atherosclerotic heart disease of native coronary artery without angina pectoris; I25.2 Old myocardial infarction; J44.9 Chronic obstructive pulmonary disease, unspecified; K21.9 Gastro-esophageal reflux disease without esophagitis; F17.200 Nicotine dependence, unspecified, uncomplicated; Z79.01 Long term (current) use of anticoagulants; Z79.02 Long term (current) use of antithrombotics/antiplatelets; Z79.82 Long term (current) use of aspirin; Z79.899 Other long term (current) drug therapy; Z88.8 Allergy status to other drugs, medicaments and biological substances; Z90.49 Acquired absence of other specified parts of digestive tract
CPT/HCPCS: 99291; 99292; 96365; 96366 ×6; 96368; 96375 ×4; 96376; 36415; 93005; 86900; 86901; 80053; 83690; 83735; 84484; 85025; 85610; 85730; 86850; 86920; 82272; 71046; 36430; P9016; J2720; J2270; J1644 ×2; C9113; 96374

== ENCOUNTER 2023-02-18 13:36 | Observation (INO) | payer OTHER, MEDICARE ==
--- NOTE | 2023-02-18 14:52 | ED ---
General Adult HPI - General Chief complaint: Fall Stated complaint: Syncope Time Seen by Provider: 02/18/23 14:09 Source: patient Mode of arrival: EMS Limitations: no limitations - History of Present Illness Initial comments: Dictation was produced using Embedded Chat dictation software. please excuse any grammatical, word or spelling errors. Chief Complaint: 72-year-old male presents emergency department after fall History of Present Illness: Patient 72-year-old male he has multiple comorbidities. Patient states that he felt dizzy causing him to fall. Follows unwitnessed. at the bedside noticed a scratch on the left side of his face. Patient has any neck pain. He is worried that he might be anemic. He is had anemia in the past. Denies any dizziness currently. Been having black stools for the last 2 or 3 days. The ROS documented in this emergency department record has been reviewed and confirmed by me. Those systems with pertinent positive or negative responses have been documented in the HPI. All other systems are other negative and/or noncontributory. - Related Data Home Medications Medication Instructions Recorded Confirmed Ergocalciferol (Vitamin D2) 1,250 mcg PO Q14D 07/18/17 02/11/23 [Vitamin D2] Aspirin EC [Ecotrin Low Dose] 81 mg PO HS 02/10/18 02/11/23 DULoxetine HCL [Cymbalta] 20 mg PO HS 10/27/20 02/11/23 Melatonin 5 mg PO HS 12/19/20 02/11/23 Sennosides-Docusate Sodium 2 tab PO TID 12/31/20 02/11/23 [Senokot-S] Gabapentin [Neurontin] 100 mg PO TID 01/23/21 02/11/23 Nitroglycerin Sl Tabs [Nitrostat] 0.4 mg SL Q5M PRN 01/23/21 02/11/23 rOPINIRole HCL [Requip] 0.5 mg PO TID 01/23/21 02/11/23 Ondansetron [Zofran] 4 mg PO DAILY PRN 05/08/21 02/11/23 oxyBUTYnin chloride [Ditropan] 5 mg PO HS 06/28/21 02/11/23 Lactulose [Constulose] 10 gm PO DAILY PRN 11/12/21 02/11/23 Nephro-Deepa 1 tab PO DAILY 11/12/21 02/11/23 Omeprazole 80 mg PO BID 11/12/21 02/11/23 Cyanocobalamin [Vitamin B-12] 1,000 mcg PO DAILY 12/14/21 02/11/23 Potassium Chloride 20 meq PO DAILY 11/29/22 02/11/23 Insulin Glargine,Hum.rec.anlog 20 units SQ HS 01/12/23 02/11/23 [Lantus Solostar Pen] Sodium Bicarbonate Tab 650 mg PO DAILY 01/12/23 02/11/23 Clopidogrel [Plavix] 1 tab PO DAILY 02/11/23 02/11/23 Metoprolol Tartrate [Lopressor] 25 mg PO BID 02/11/23 02/11/23 Previous Rx's Medication Instructions Recorded Acetaminophen Tab [Tylenol] 650 mg PO Q6HR PRN tab 01/16/23 Atorvastatin Calcium [Lipitor] 80 mg PO DAILY #30 tablet 01/16/23 Clopidogrel [Plavix] 75 mg PO DAILY #30 tablet 01/16/23 Darbepoetin Joel [Aranesp] 60 mcg SQ Q7D #5 each 01/16/23 Ezetimibe [Zetia] 10 mg PO DAILY #30 tab 01/16/23 Furosemide [Lasix] 40 mg PO DAILY #0 01/16/23 Rivaroxaban [Xarelto] 2.5 mg PO BID #60 tab 01/16/23 Allergies Allergy/AdvReac Type Severity Reaction Status Date / Time Iodinated Contrast Media AdvReac CAN'T Verified 02/11/23 12:33 TAKE, RENAL DISEASE Iodine and Iodide Containing AdvReac CAN'T Verified 02/11/23 12:33 Produc TAKE, RENAL DISEASE Review of Systems ROS Statement: Those systems with pertinent positive or pertinent negative responses have been documented in the HPI. ROS Other: All systems not noted in ROS Statement are negative. Past Medical History Past Medical History: Coronary Artery Disease (CAD), Chest Pain / Angina, Heart Failure, COPD, Diabetes Mellitus, Dialysis, GERD/Reflux, GI Bleed, Hyperlipidemia, Hypertension, Myocardial Infarction ([place]), Pneumonia, Renal Disease, Vascular Disorder Additional Past Medical History / Comment(s): Lower GI bleeds/suspect micro bleeds in intestine, occasional abdominal bloating, IDDM type II, neuropathy bilateral feet, ESRD with peritoneal dialysis ((cycler at night for 5 hours), past hemodialysis/spouse states she was told L upper arm fistula is plugged again, chronic anemia/transfusion of blood/iron, past partial SBO, benign colon polyps, chronic low back pain with bilateral sciatica, PVD, RLS, vertigo, insomnia, 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 Last Myocardial Infarction Date:: 03/2020 History of Any Multi-Drug Resistant Organisms: None Reported Past Surgical History: Cholecystectomy, Heart Catheterization With Stent Additional Past Surgical History / Comment(s): 03/25/20 R sublclavian mediport, R carotid stent done in [place], EGD/colonoscopy, endoscopic capsule, ORIF left wrist, aortagram, bilateral leg revascularizations/stents, left upper arm f istula and on 12/15/21 had thrombectomy balloon angioplasty of L arm fistula, peritoneal dialysis catheter removal and insertion (11/23/21). Past Anesthesia/Blood Transfusion Reactions: No Reported Reaction Additional Past Anesthesia/Blood Transfusion Reaction / Comment(s): Pt has had multiple blood transfusions without reaction. Date of Last Stent Placement:: 03/2021 Past Psychological History: No Psychological Hx Reported, PTSD Smoking Status: Current every day smoker, Former smoker - Past Family History Father History Unknown: Yes Mother Family Medical History: Cancer Additional Family Medical History / Comment(s): Mother from metastatic cancer pelvic origin. General Exam - General Exam Comments Initial Comments: PHYSICAL EXAM: General Impression: Alert and oriented x3, not in acute distress HEENT: Superficial abrasion to the left mormon, extra-ocular movements intact, pupils equal and reactive to light bilaterally, mucous membranes moist. Cardiovascular: Heart regular rate and rhythm Chest: Able to complete full sentences, no retractions, no tachypnea Abdomen: abdomen soft, non-tender, non-distended, no organomegaly Musculoskeletal: Pulses present and equal in all extremities, no peripheral edema Motor: no focal deficits noted Neurological: CN II-XII grossly intact, no focal motor or sensory deficits noted Skin: Intact with no visualized rashes Psych: Normal affect and mood Limitations: no limitations Course Vital Signs 02/18/23 13:43 Temperature 98.6 F Pulse Rate 70 Respiratory 19 Rate Blood Pressure 106/60 O2 Sat by Pulse 95 Oximetry Medical Decision Making - Medical Decision Making Was pt. sent in by a medical professional or institution ([facility]ER[facility] Felton, PRODUCTION TROUBLES[employer]ER, urgent care, hospital, or fpc...) When possible be specific @ -No Did you speak to anyone other than the patient for history (EMS, parent, family, police, friend...)? What history was obtained from this source @ -No Did you review nursing and triage notes (agree or disagree)? Why? @ -I reviewed and agree with nursing and triage notes Were old charts reviewed (outside hosp., previous admission, EMS record, old EKG, old radiological studies, urgent care reports/EKG's, fpc records)? Report findings @ -No old charts were reviewed Differential Diagnosis (chest pain, altered mental status, abdominal pain women, abdominal pain men, vaginal bleeding, musculoskeletal, weakness, fever, dyspnea, syncope, headache, dizziness, GI bleed, back pain, seizure, CVA, palpatations, mental health)? @ -Differential Syncope: Valvular disease, hypertrophic cardiomyopathy, pulmonary embolism, tamponade, tachycardia, bradycardia, [place], hypovolemia, hemorrhage, dissection, anemia, intracranial hemorrhage, seizure, hypoglycemia, carbon monoxide poisoning, this is not meant to be an all-inclusive list. EKG interpreted by me (3pts min.). @ -My EKG interpretation: Ventricular rate 70 left bundle branch block, sinus rhythm, CA interval 204, QRS 185, QTc 510. No CA prolongation, no QTC prolongation, no ST or T-wave changes noted. Overall, this EKG is unremarkable X-rays interpreted by me (1pt min.). @ -None done CT interpreted by me (1pt min.). @ -Computed tomography scan of the head and C-spine shows no acute processes. U/S interpreted by me (1pt. min.). @ -None done What testing was considered but not performed or refused? (CT, X-rays, U/S, labs)? Why? @ -None What meds were considered but not given or refused? Why? @ -None Did you discuss the management of the patient with other professionals (professionals i.e. CAMERON Felton, [employer] TR[employer]BL[employer]ER, lab, RT, psych nurse, social sciences chair, barback, teacher, safety security officer, geriatric case manager)? Give summary @ -Case discussed with Dr. Armendariz for admission Was smoking cessation discussed for >3mins.? @ -No Was critical care preformed (if so, how long)? @ -No Were there social determinants of health that impacted care today? How? (Homelessness, low income, unemployed, alcoholism, drug addiction, transportation, low edu. Level, literacy, decrease access to med. care, longterm, rehab)? @ -No Was there de-escalation of care discussed even if they declined (Discuss DNR or withdrawal of care, Hospice)? DNR status @ -No What co-morbidities impacted this encounter? (DM, HTN, Smoking, COPD, CAD, Cancer, CVA, ARF, Chemo, Hep., AIDS, mental health diagnosis, sleep apnea, morbid obesity)? @ -None Was patient admitted / discharged? Hospital course, mention meds given and route, prescriptions, significant lab abnormalities, going to OR and other pertinent info. @ -72-year-old male presents emergency department for syncopal episode he fell has suffered an abrasion to the left mormon area. Vital signs upon arrival are within acceptable limits. Laboratory evaluation obtained: 713 has history of GI bleed and anemia. Is 7.3 hemoglobin seems to be improved from 5.7 last month. States that he did get a transfusion. Rest of labs within acceptable limits. Stool occult blood is positive. Patient given Protonix. He will be admitted to the hospital for serial CBCs. GI will be consulted. Undiagnosed new problem with uncertain prognosis? @ -No Drug Therapy requiring intensive monitoring for toxicity (Heparin, Nitro, Insulin, Cardizem)? @ -No Were any procedures done? @ -No Diagnosis/symptom? Acute, or Chronic, or Acute on Chronic? Uncomplicated (without systemic symptoms) or Complicated (systemic symptoms)? @ -1. Syncope, 2. GI bleed with anemia Side effects of treatment? @ -No Exacerbation, Progression, or Severe Exacerbation? @ -No Poses a threat to life or bodily function? How? (Chest pain, [place], [place], pneumonia, PE, COPD, DKA, ARF, appy, cholecystitis, CVA, Diverticulitis, Homicidal, Suicidal, threat to staff... and all critical care pts) @ -yes - Lab Data Result diagrams: 02/18/23 15:02 02/18/23 15:02 Lab Results 02/18/23 02/18/23 02/18/23 Range/Units 15:02 15:02 15:02 WBC 13.4 H (3.8-10.6) k/uL RBC 2.44 L (4.30-5.90) m/uL Hgb 7.3 L D (13.0-17.5) gm/dL Hct 24.0 L (39.0-53.0) % MCV 98.3 (80.0-100.0) fL MCH 29.8 (25.0-35.0) pg MCHC 30.3 L (31.0-37.0) g/dL RDW 23.8 H (11.5-15.5) % Plt Count 492 H (150-450) k/uL MPV 8.1 Neutrophils % 89 % Lymphocytes % 4 % Monocytes % 5 % Eosinophils % 1 % Basophils % 0 % Neutrophils # 11.9 H (1.3-7.7) k/uL Lymphocytes # 0.6 L (1.0-4.8) k/uL Monocytes # 0.6 (0-1.0) k/uL Eosinophils # 0.2 (0-0.7) k/uL Basophils # 0.0 (0-0.2) k/uL Hypochromasia Marked Poikilocytosis Slight Anisocytosis Moderate Macrocytosis Moderate PT 10.7 (9.0-12.0) sec INR 1.0 (<1.2) APTT 186.4 H* (22.0-30.0) sec Sodium 132 L (137-145) mmol/L Potassium 3.9 (3.5-5.1) mmol/L Chloride 93 L (98-107) mmol/L Carbon Dioxide 22 (22-30) mmol/L Anion Gap 17 mmol/L BUN 57 H (9-20) mg/dL Creatinine 8.61 H* (0.66-1.25) mg/dL Est GFR (CKD-EPI)AfAm 6 (>60 ml/min/1.73 sqM) Est GFR (CKD-EPI)NonAf 6 (>60 ml/min/1.73 sqM) Glucose 146 H (74-99) mg/dL Calcium 8.2 L (8.4-10.2) mg/dL Stool Occult Blood (Negative) 02/18/23 Range/Units 16:55 WBC (3.8-10.6) k/uL RBC (4.30-5.90) m/uL Hgb (13.0-17.5) gm/dL Hct (39.0-53.0) % MCV (80.0-100.0) fL MCH (25.0-35.0) pg MCHC (31.0-37.0) g/dL RDW (11.5-15.5) % Plt Count (150-450) k/uL MPV Neutrophils % % Lymphocytes % % Monocytes % % Eosinophils % % Basophils % % Neutrophils # (1.3-7.7) k/uL Lymphocytes # (1.0-4.8) k/uL Monocytes # (0-1.0) k/uL Eosinophils # (0-0.7) k/uL Basophils # (0-0.2) k/uL Hypochromasia Poikilocytosis Anisocytosis Macrocytosis PT (9.0-12.0) sec INR (<1.2) APTT (22.0-30.0) sec Sodium (137-145) mmol/L Potassium (3.5-5.1) mmol/L Chloride (98-107) mmol/L Carbon Dioxide (22-30) mmol/L Anion Gap mmol/L BUN (9-20) mg/dL Creatinine (0.66-1.25) mg/dL Est GFR (CKD-EPI)AfAm (>60 ml/min/1.73 sqM) Est GFR (CKD-EPI)NonAf (>60 ml/min/1.73 sqM) Glucose (74-99) mg/dL Calcium (8.4-10.2) mg/dL Stool Occult Blood Positive (Negative) Disposition Clinical Impression: GI bleed Disposition: ADMITTED IP TO THIS [facility] Condition: Fair Referrals: [facility],Clinic [Primary Care Provider] - 1-2 days Decision Time: 18:13
--- NOTE | 2023-02-18 15:40 | CT ---
Degenerative H 79 EXAMINATION TYPE: CT brain cspine wo con DATE OF EXAM: 02/18/2023 COMPARISON: 01/23/21 HISTORY: Fall. CT DLP: [address] of the brain was performed. The ventricles, basal cisterns and sulci overlying the cerebral convexities demonstrate mild enlargement. There is no evidence for intracranial hemorrhage or sulcal effacement. There is decreased attenuatio n about the periventricular white matter and deep white matter of both cerebral hemispheres, compatib le with chronic small vessel ischemia. No mass effects are seen. If symptoms persist consider MRI. Osseous calvarium is intact. IMPRESSION: 1. Age related atrophic and chronic small vessel ischemic change without acute intracranial process seen at this time. CT Cervical Spine: Unenhanced CT of the cervical spine was performed with bone and soft tissue window settings submitted . Coronal and sagittal reconstruction is obtained. There is normal alignment and prevertebral soft tissues. No evidence for acute cervical fracture . Scattered degenerative disc disease and spondylosis. Biapical scarring. IMPRESSION: 1. No evidence for acute fracture or subluxation of the cervical spine.
[2023-02-18 15:58] LABS: Anisocytosis Moderate; Basophils % (A) 0 %; Eosinophils # (A) 0.2 k/uL (0-0.7); Eosinophils % (A) 1 %; Hypochromasia Marked; Lymphocytes # (A) 0.6 k/uL (1.0-4.8); Lymphocytes % (A) 4 %; MCH 29.8 pg (25.0-35.0); MCHC 30.3 g/dL (31.0-37.0); MCV 98.3 fL (80.0-100.0); Macrocytosis Moderate; Mean Platelet Volume 8.1; Monocytes # (A) 0.6 k/uL (0-1.0); Monocytes % (A) 5 %; Neutrophils # (A) 11.9 k/uL (1.3-7.7); Neutrophils % (A) 89 %; Platelet Count 492 k/uL (150-450); Poikilocytosis Slight; RBC 2.44 m/uL (4.30-5.90); RDW 23.8 % (11.5-15.5); WBC 13.4 k/uL (3.8-10.6)
[2023-02-18 16:12] LABS: HGB 7.3 gm/dL (13.0-17.5)
[2023-02-18 16:13] LABS: African American GFR (CKD) 6 (>60 ml/min/1.73 sqM); Anion Gap 17 mmol/L; Blood Urea Nitrogen 57 mg/dL (9-20); Calcium 8.2 mg/dL (8.4-10.2); Carbon Dioxide 22 mmol/L (22-30); Chloride 93 mmol/L (98-107); Glucose 146 mg/dL (74-99); Non-African American GFR(CKD) 6 (>60 ml/min/1.73 sqM); Sodium 132 mmol/L (137-145)
[2023-02-18 16:28] LABS: Prothrombin Time 10.7 sec (9.0-12.0)
[2023-02-18 16:35] LABS: Partial Thromboplastin Time 186.4 sec (22.0-30.0)
[2023-02-18 16:41] LABS: Potassium 3.9 mmol/L (3.5-5.1)
[2023-02-18] MEDS ORDERED: PANTOPRAZOLE 40 MG/10 ML VIAL IVP STA (17:32)
[2023-02-18] MEDS ORDERED: NALOXONE 0.4 MG/ML 1 ML VIAL IV PRN (17:56)
[2023-02-18] MEDS: SODIUM CHLORIDE 0.9% 1,000 ML IV SCH (20:12)
[2023-02-19] MEDS: DIALYSIS (PERIT 1.5%) 2,500 ML 37.5 G/2,500 ML BAG INTRAPERIT SCH ×4 (00:06→17:59)
--- NOTE | 2023-02-19 00:36 | P.HPIM ---
History of Present Illness H&P Date: 02/18/23 Patient is a 72-year-old male with an extensive PMH including CAD status post multiple stents (on aspirin, Plavix, and Xarelto), history of GI bleeding with blood loss anemia, ESRD on peritoneal dialysis, type II DM, hypertension, and hyperlipidemia who presented to the emergency room after a syncopal episode. The patient reports that over the past few days, he has been experiencing intermittent episodes of lightheadedness and unsteadiness. He reports that he did not experience loss of consciousness until earlier today when he felt unsteady and also lost consciousness. The patient does not recall the circumstances surrounding the fall. He denied experiencing chest discomfort, shortness of breath, nausea, vomiting, diaphoresis. He reports that his dizziness is not vertiginous in nature. He reports that it is somewhat positional in nature and worsens with abrupt positional changes. The patient also reports that he has been experiencing black stools over the past 2 days. Denied bleeding elsewhere. In the emergency room, CT brain and cervical spine were unremarkable. EKG had revealed sinus rhythm with PVCs at 70 with a left bundle-branch block as reviewed by me. Laboratory evaluation was remarkable for WBC count of 13.4, hemoglobin 7.3, down from previously 8.1 on 01/16. Creatinine was 8.6, PTT 186, sodium 132, chloride 93, and stool occult blood positive. ED documentation reviewed and case discussed with ED provider. Review of systems: Pertinent positives and negatives as discussed in HPI, a complete review of systems was performed and all other systems are negative. Physical examination: Vital signs reviewed General: non toxic, no distress, appears at stated age, normal weight Derm: no unusual rashes/lesions, warm Head: atraumatic, normocephalic, symmetric Eyes: EOMI, no lid lag, anicteric sclera, pupils equal round reactive to light ENT: Nose and ears atraumatic Neck: No cervical lymphadenopathy, trachea midline, supple Mouth: no lip lesion, mucus membranes moist Cardiovascular: S1S2 reg, no murmur, positive dorsalis pedis pulse bilateral, no edema Lungs: CTA bilateral, no rhonchi, no rales, no accessory muscle use Abdominal: soft, nontender to palpation, no guarding Ext: muscle strength 5 out of 5 in all 4 extremities grossly, no gross muscle a trophy, no contractures, Neuro: CN II-XI grossly intact, no gross focal neuro deficits Psych: Alert, oriented, appropriate affect Assessment: Syncope, suspect secondary to blood loss anemia due to GI bleeding ESRD on dialysis Elevated PTT, suspect due to NOAC use CAD, hypertension, hyperlipidemia, type II DM Imaging: In the emergency room, CT brain and cervical spine were unremarkable. EKG had revealed sinus rhythm with PVCs at 70 with a left bundle-branch block as reviewed by me. Data Review: Laboratory evaluation was remarkable for WBC count of 13.4, hemoglobin 7.3, down from previously 8.1 on 01/16. Creatinine was 8.6, PTT 186, sodium 132, chloride 93, and stool occult blood positive. Plan: GI consulted Monitor CBC Hold the patient's anticoagulant Xarelto. Cardiology consult for guidance regarding resumption of antiplatelets in setting of recent stent 1 month ago Nephrology consulted for resumption of dialysis Insulin sliding scale and blood glucose monitoring Fall precautions DVT prophylaxis: IPCDs The patient is admitted with an anticipated less than 2 midnight stay for evaluation of syncope CODE STATUS: Full Code Discussed with: Patient Anticipated discharge date: in am Anticipated discharge place: Home Past Medical History Past Medical History: Coronary Artery Disease (CAD), Chest Pain / Angina, Heart Failure, COPD, Diabetes Mellitus, Dialysis, GERD/Reflux, GI Bleed, Hyperlipidemia, Hypertension, Myocardial Infarction ([place]), Pneumonia, Renal Disease, Vascular Disorder Additional Past Medical History / Comment(s): Lower GI bleeds/suspect micro bleeds in intestine, occasional abdominal bloating, IDDM type II, neuropathy bilateral feet, ESRD with peritoneal dialysis ((cycler at night for 5 hours), past hemodialysis/spouse states she was told L upper arm fistula is plugged again, chronic anemia/transfusion of blood/iron, past partial SBO, benign colon polyps, chronic low back pain with bilateral sciatica, PVD, RLS, vertigo, insomnia, 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 Last Myocardial Infarction Date:: 03/2020 History of Any Multi-Drug Resistant Organisms: None Reported Past Surgical History: Cholecystectomy, Heart Catheterization With Stent Additional Past Surgical History / Comment(s): 03/25/20 R sublclavian mediport, R carotid stent done in [place], EGD/colonoscopy, endoscopic capsule, ORIF left wrist, aortagram, bilateral leg revascularizations/stents, left upper arm fistula and on 12/15/21 had thrombectomy balloon angioplasty of L arm fistula, peritoneal dialysis catheter removal and insertion (11/23/21). Past Anesthesia/Blood Transfusion Reactions: No Reported Reaction Additional Past Anesthesia/Blood Transfusion Reaction / Comment(s): Pt has had multiple blood transfusions without reaction. Date of Last Stent Placement:: 03/2021 Past Psychological History: No Psychological Hx Reported, PTSD Smoking Status: Current every day smoker, Former smoker - Past Family History Father History Unknown: Yes Mother Family Medical History: Cancer Additional Family Medical History / Comment(s): Mother from metastatic cancer pelvic origin. Medications and Allergies Home Medications Medication Instructions Recorded Confirmed Type Ergocalciferol (Vitamin D2) 1,250 mcg PO Q14D 07/18/17 02/18/23 History [Vitamin D2] Aspirin EC [Ecotrin Low Dose] 81 mg PO HS 02/10/18 02/18/23 History DULoxetine HCL [Cymbalta] 20 mg PO HS 10/27/20 02/18/23 History Melatonin 5 mg PO HS 12/19/20 02/18/23 History Sennosides-Docusate Sodium 2 tab PO TID 12/31/20 02/18/23 History [Senokot-S] Gabapentin [Neurontin] 100 mg PO TID 01/23/21 02/18/23 History Nitroglycerin Sl Tabs [Nitrostat] 0.4 mg SL Q5M PRN 01/23/21 02/18/23 History rOPINIRole HCL [Requip] 0.5 mg PO TID 01/23/21 02/18/23 History Ondansetron [Zofran] 4 mg PO DAILY PRN 05/08/21 02/18/23 History oxyBUTYnin chloride [Ditropan] 5 mg PO HS 06/28/21 02/18/23 History Lactulose [Constulose] 10 gm PO DAILY PRN 11/12/21 02/18/23 History Nephro-Deepa 1 tab PO DAILY 11/12/21 02/18/23 History Omeprazole 80 mg PO BID 11/12/21 02/18/23 History Cyanocobalamin [Vitamin B-12] 1,000 mcg PO DAILY 12/14/21 02/18/23 History Potassium Chloride 20 meq PO DAILY 11/29/22 02/18/23 History Insulin Glargine,Hum.rec.anlog 20 units SQ HS 01/12/23 02/18/23 History [Lantus Solostar Pen] Sodium Bicarbonate Tab 650 mg PO DAILY 01/12/23 02/18/23 History Acetaminophen Tab [Tylenol] 650 mg PO Q6HR PRN tab 01/16/23 02/18/23 Rx Atorvastatin Calcium [Lipitor] 80 mg PO DAILY #30 tablet 01/16/23 02/18/23 Rx Clopidogrel [Plavix] 75 mg PO DAILY #30 tablet 01/16/23 02/18/23 Rx Metoprolol Tartrate [Lopressor] 25 mg PO BID 02/11/23 02/18/23 History Amiodarone [Cordarone] 200 mg PO DAILY@1400 02/18/23 02/18/23 History Calcium Acetate [Phoslo] 667 mg PO 5XD PRN 02/18/23 02/18/23 History Furosemide [Lasix] 80 mg PO DAILY 02/18/23 02/18/23 History Insulin Aspart [NovoLOG Flexpen] 8 units SQ TID-W/MEALS 02/18/23 02/18/23 History Isosorbide Mononitrate ER [Imdur] 30 mg PO DAILY 02/18/23 02/18/23 History Ranolazine [Ranexa] 500 mg PO BID 02/18/23 02/18/23 History Allergies Allergy/AdvReac Type Severity Reaction Status Date / Time Iodinated Contrast Media AdvReac CAN'T Verified 02/18/23 19:39 TAKE, RENAL DISEASE Iodine and Iodide Containing AdvReac CAN'T Verified 02/18/23 19:39 Produc TAKE, RENAL DISEASE Physical Exam Vitals: Vital Signs Temp Pulse Resp BP Pulse Ox 02/18/23 20:17 70 18 100/77 96 02/18/23 13:43 98.6 F 70 19 106/60 95 Intake and Output 02/18/23 02/18/23 02/18/23 06:59 14:59 22:59 Other: Weight 79.832 kg Results CBC & Chem 7: 02/18/23 15:02 02/18/23 15:02 Labs: Abnormal Lab Results - Last 24 Hours (Table) 02/18/23 02/18/23 02/18/23 Range/Units 15:02 15:02 15:02 WBC 13.4 H (3.8-10.6) k/uL RBC 2.44 L (4.30-5.90) m/uL Hgb 7.3 L D (13.0-17.5) gm/dL Hct 24.0 L (39.0-53.0) % MCHC 30.3 L (31.0-37.0) g/dL RDW 23.8 H (11.5-15.5) % Plt Count 492 H (150-450) k/uL Neutrophils # 11.9 H (1.3-7.7) k/uL Lymphocytes # 0.6 L (1.0-4.8) k/uL APTT 186.4 H* (22.0-30.0) sec Sodium 132 L (137-145) mmol/L Chloride 93 L (98-107) mmol/L BUN 57 H (9-20) mg/dL Creatinine 8.61 H* (0.66-1.25) mg/dL Glucose 146 H (74-99) mg/dL Calcium 8.2 L (8.4-10.2) mg/dL
[2023-02-19 07:21] LABS: Glucose,Whole Blood 180 mg/dL (70-110)
[2023-02-19] MEDS: INSULIN ASPART (NovoLOG) 100 UNIT/ML VIAL SQ SCH ×7 (08:51→21:28)
[2023-02-19] MEDS ORDERED: RIVAROXABAN 2.5 MG TABLET PO SCH (09:00)
[2023-02-19] MEDS ORDERED: METOPROLOL TARTRATE 25 MG TAB PO SCH (09:00)
[2023-02-19] MEDS ORDERED: LACTULOSE 20 GM/30 ML CUP PO PRN (09:00)
[2023-02-19] MEDS ORDERED: CLOPIDOGREL 75 MG TAB PO SCH (09:00)
--- NOTE | 2023-02-19 10:21 | P.CRDCN ---
History of Present Illness Consult date: 02/19/23 History of present illness: HISTORY OF PRESENT ILLNESS: This is a 72-year-old male with a past medical history significant for renal disease on peritoneal dialysis, coronary artery disease with recent stenting of the distal and mid RCA in December 2022, hypertension, hyperlipidemia, peripheral vascular disease, and ischemic cardiomyopathy. Patient follows in the office with Dr. Galdamez. We have been asked to see the patient in consultation for blood loss anemia on triple therapy. Patient examined at the bedside. Patient states he presented to the hospital after having a syncopal episode at home. The patient states he got up and was walking to the bathroom when he began to feel dizzy and lightheaded. He states he then fell to the ground. He believes that he lost consciousness for approximately 1 minute. He denied having any chest pain or pressure. He denied having any shortness of breath. The patient reports having some black stools about a week ago but states he has not had any dark colored stools or bright red blood in his stools for the past few days. The patient is currently prescribed aspirin, Plavix, and Xarelto. The patient states he has been taking all 3 of these. The patient is on aspirin and Plavix secondary to recent stenting in December 2022. He is also on low-dose Xarelto secondary to peripheral vascular disease. The patient's hemoglobin was 7.3 on admission. The patient has chronic anemia with a hemoglobin of 7-8. * EKG reveals sinus mechanism with left bundle-branch block. * Laboratory data: WBC 13.4. Hemoglobin 7.3. Platelet count 192. Sodium 132. Potassium 3.9. BUN 57. Creatinine 8.61. * Current home cardiac medications include aspirin 81 mg daily, Plavix 75 mg daily, Lipitor 80 mg daily, metoprolol tartrate 25 mg twice a day, amiodarone 200 mg daily, Ranexa 500 mg twice a day, Imdur 30 mg daily, Lasix 80 mg daily * Most recent echocardiogram obtained in December 2022 revealed ejection fraction 35- 40%, apical hypokinesis, [id number] mitral regurgitation, moderate aortic regurgitation, and mild tricuspid regurgitation * Cardiac catheterization history: December 2022 with stenting to the distal RCA and mid RCA REVIEW OF SYSTEMS: At the time of my exam: CONSTITUTIONAL: Denies fever or chills. HEENT: Denies blurred vision, vision changes, or eye pain. Denies hemoptysis CARDIOVASCULAR: Denies chest pain. Denies orthopnea. Denies PND. Denies palpitations RESPIRATORY: Denies shortness of breath. GASTROINTESTINAL: Denies abdominal pain. Denies nausea or vomiting. HEMATOLOGIC: Denies bleeding disorders. GENITOURINARY: Denies any blood in urine. SKIN: Denies pruitis. Denies rash. PHYSICAL EXAM: VITAL SIGNS: Reviewed. GENERAL: Well-developed in no acute distress. HEENT: Head is normocephalic. Pupils are equal, round. Sclerae anicteric. Mucous membranes of the mouth are moist. Neck supple. No JVD or thyromegaly LUNGS: Respirations even and unlabored. Lungs essentially clear to auscultation bilaterally. HEART: Regular rate and rhythm. S1 and S2 heard. Systolic murmur noted ABDOMEN: Soft. Nondistended. Nontender. EXTREMITIES: Normal range of motion. No clubbing or cyanosis. Peripheral pulses intact. No lower extremity edema NEUROLOGIC: Awake and alert. Oriented x 3. ASSESSMENT: Syncope Orthostatic hypotension Anemia of chronic disease Coronary artery disease with recent stenting of the RCA, December 2022 Ischemic cardiomyopathy End-stage renal disease on peritoneal dialysis Peripheral vascular disease, on low-dose Xarelto Hypertension Hyperlipidemia PLAN: No need to repeat echocardiogram as this was performed in December 2022 Patient with positive orthostatic blood pressures. Patient encouraged to change positions slowly. May discontinue aspirin. Resume Plavix and low-dose Xarelto Add Midodrine Patient is currently stable from a cardiac standpoint Further recommendations pending patient's course Nurse practitioner note has been reviewed by physician. Signing provider agrees with the documented findings, assessment, and plan of care. Past Medical History Past Medical History: Coronary Artery Disease (CAD), Chest Pain / Angina, Heart Failure, COPD, Diabetes Mellitus, Dialysis, GERD/Reflux, GI Bleed, Hyperlipidemia, Hypertension, Myocardial Infarction ([place]), Pneumonia, Renal Disease, Vascular Disorder Additional Past Medical History / Comment(s): Lower GI bleeds/suspect micro bleeds in intestine, occasional abdominal bloating, IDDM type II, neuropathy bilateral feet, ESRD with peritoneal dialysis ((cycler at night for 5 hours), past hemodialysis/spouse states she was told L upper arm fistula is plugged again, chronic anemia/transfusion of blood/iron, past partial SBO, benign colon polyps, chronic low back pain with bilateral sciatica, PVD, RLS, vertigo, insomnia, 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 Last Myocardial Infarction Date:: 03/2020 History of Any Multi-Drug Resistant Organisms: None Reported Past Surgical History: Cholecystectomy, Heart Catheterization With Stent Additional Past Surgical History / Comment(s): 03/25/20 R sublclavian mediport, R carotid stent done in [place], EGD/colonoscopy, endoscopic capsule, ORIF left wrist, aortagram, bilateral leg revascularizations/stents, left upper arm fistula and on 12/15/21 had thrombectomy balloon angioplasty of L arm fistula, peritoneal dialysis catheter removal and insertion (11/23/21). Past Anesthesia/Blood Transfusion Reactions: No Reported Reaction Additional Past Anesthesia/Blood Transfusion Reaction / Comment(s): Pt has had multiple blood transfusions without reaction. Date of Last Stent Placement:: 03/2021 Past Psychological History: No Psychological Hx Reported, PTSD Smoking Status: Current every day smoker, Former smoker - Past Family History Father History Unknown: Yes Mother Family Medical History: Cancer Additional Family Medical History / Comment(s): Mother from metastatic cancer pelvic origin. Medications and Allergies Home Medications Medication Instructions Recorded Confirmed Type Ergocalciferol (Vitamin D2) 1,250 mcg PO Q14D 07/18/17 02/18/23 History [Vitamin D2] Aspirin EC [Ecotrin Low Dose] 81 mg PO HS 02/10/18 02/18/23 History DULoxetine HCL [Cymbalta] 20 mg PO HS 10/27/20 02/18/23 History Melatonin 5 mg PO HS 12/19/20 02/18/23 History Sennosides-Docusate Sodium 2 tab PO TID 12/31/20 02/18/23 History [Senokot-S] Gabapentin [Neurontin] 100 mg PO TID 01/23/21 02/18/23 History Nitroglycerin Sl Tabs [Nitrostat] 0.4 mg SL Q5M PRN 01/23/21 02/18/23 History rOPINIRole HCL [Requip] 0.5 mg PO TID 01/23/21 02/18/23 History Ondansetron [Zofran] 4 mg PO DAILY PRN 05/08/21 02/18/23 History oxyBUTYnin chloride [Ditropan] 5 mg PO HS 06/28/21 02/18/23 History Lactulose [Constulose] 10 gm PO DAILY PRN 11/12/21 02/18/23 History Nephro-Deepa 1 tab PO DAILY 11/12/21 02/18/23 History Omeprazole 80 mg PO BID 11/12/21 02/18/23 History Cyanocobalamin [Vitamin B-12] 1,000 mcg PO DAILY 12/14/21 02/18/23 History Potassium Chloride 20 meq PO DAILY 11/29/22 02/18/23 History Insulin Glargine,Hum.rec.anlog 20 units SQ HS 01/12/23 02/18/23 History [Lantus Solostar Pen] Sodium Bicarbonate Tab 650 mg PO DAILY 01/12/23 02/18/23 History Acetaminophen Tab [Tylenol] 650 mg PO Q6HR PRN tab 01/16/23 02/18/23 Rx Atorvastatin Calcium [Lipitor] 80 mg PO DAILY #30 tablet 01/16/23 02/18/23 Rx Clopidogrel [Plavix] 75 mg PO DAILY #30 tablet 01/16/23 02/18/23 Rx Metoprolol Tartrate [Lopressor] 25 mg PO BID 02/11/23 02/18/23 History Amiodarone [Cordarone] 200 mg PO DAILY@1400 02/18/23 02/18/23 History Calcium Acetate [Phoslo] 667 mg PO 5XD PRN 02/18/23 02/18/23 History Furosemide [Lasix] 80 mg PO DAILY 02/18/23 02/18/23 History Insulin Aspart [NovoLOG Flexpen] 8 units SQ TID-W/MEALS 02/18/23 02/18/23 Hi story Isosorbide Mononitrate ER [Imdur] 30 mg PO DAILY 02/18/23 02/18/23 History Ranolazine [Ranexa] 500 mg PO BID 02/18/23 02/18/23 History Allergies Allergy/AdvReac Type Severity Reaction Status Date / Time Iodinated Contrast Media AdvReac CAN'T Verified 02/18/23 19:39 TAKE, RENAL DISEASE Iodine and Iodide Containing AdvReac CAN'T Verified 02/18/23 19:39 Produc TAKE, RENAL DISEASE Physical Exam Vitals: Vital Signs Temp Pulse Pulse Resp BP BP BP 02/19/23 07:22 97.9 F 71 16 02/19/23 05:05 95/45 02/19/23 00:05 97.7 F 48 L 20 100/56 02/18/23 20:17 70 18 100/77 02/18/23 13:43 98.6 F 70 19 106/60 BP BP Pulse Ox 02/19/23 07:22 118/61 96 02/19/23 05:05 88/48 121/61 02/19/23 00:05 100 02/18/23 20:17 96 02/18/23 13:43 95 Intake and Output 02/18/23 02/19/23 02/19/23 22:59 06:59 14:59 Other: Voiding Method Toilet # Voids 1 Weight 79.832 kg Results 02/18/23 15:02 02/18/23 15:02 Coagulation 02/18/23 Range/Units 15:02 PT 10.7 (9.0-12.0) sec APTT 186.4 H* (22.0-30.0) sec CBC 02/18/23 Range/Units 15:02 WBC 13.4 H (3.8-10.6) k/uL RBC 2.44 L (4.30-5.90) m/uL Hgb 7.3 L D (13.0-17.5) gm/dL Hct 24.0 L (39.0-53.0) % Plt Count 492 H (150-450) k/uL Comprehensive Metabolic Panel 02/18/23 Range/Units 15:02 Sodium 132 L (137-145) mmol/L Potassium 3.9 (3.5-5.1) mmol/L Chloride 93 L (98-107) mmol/L Carbon Dioxide 22 (22-30) mmol/L BUN 57 H (9-20) mg/dL Creatinine 8.61 H* (0.66-1.25) mg/dL Glucose 146 H (74-99) mg/dL Calcium 8.2 L (8.4-10.2) mg/dL Current Medications Generic Name Dose Route Start Last Admin Trade Name Freq PRN Reason Stop Dose Admin Amiodarone HCl 200 mg 02/19/23 14:00 Amiodarone 200 Mg Tab PO DAILY@1400 [facility] Atorvastatin Calcium 80 mg 02/19/23 09:00 Atorvastatin 80 Mg Tab PO DAILY [facility] Clopidogrel Bisulfate 75 mg 02/19/23 09:00 Clopidogrel 75 Mg Tab PO DAILY [facility] Furosemide 80 mg 02/19/23 09:00 Furosemide 40 Mg Tab PO DAILY [facility] Gabapentin 100 mg 02/19/23 09:00 Gabapentin 100 Mg Cap PO TID [facility] Sodium Chloride 1,000 mls @ 20 mls/hr 02/18/23 18:00 02/18/23 20:12 Saline 0.9% IV 20 mls/hr .Q24H [facility] Administration Peritoneal Dialysis Solution 37.5 g in 2,500 mls @ 0 mls/hr 02/19/23 00:00 02/19/23 05:38 Delflex With 1.5% Dextrose (2,500 Ml) INTRAPERIT 2,500 mls/hr Q6HR [facility] Administration Protocol As Directed Insulin Aspart 8 unit 02/19/23 07:30 Insulin Aspart (Novolog) 100 Unit/Ml Vial SQ TID-W/MEALS [facility] Insulin Aspart 0 unit 02/19/23 07:30 Insulin Aspart (Novolog) 100 Unit/Ml Vial SQ ACHS [facility] Protocol Isosorbide Mononitrate 30 mg 02/19/23 09:00 Isosorbide Mononitrate Er 30 Mg Tab.Er.24h PO DAILY [facility] Lactulose 10 gm 02/19/23 09:00 Lactulose 20 Gm/30 Ml Cup PO DAILY PRN Constipation Melatonin 5 mg 02/19/23 21:00 Melatonin 5 Mg Tablet PO HS [facility] Metoprolol Tartrate 25 mg 02/19/23 09:00 Metoprolol Tartrate 25 Mg Tab PO BID [facility] Naloxone HCl 0.2 mg 02/18/23 17:56 Naloxone 0.4 Mg/Ml 1 Ml Vial IV Q2M PRN Opioid Reversal Oxybutynin Chloride 5 mg 02/19/23 21:00 Oxybutynin Chloride 5 Mg Tab PO HS [facility] Potassium Chloride 20 meq 02/19/23 09:00 Potassium Chloride Er 20 Meq Tab.Er PO DAILY [facility] Ranolazine 500 mg 02/19/23 09:00 Ranolazine 500 Mg Tab.Er.12h PO BID [facility] Rivaroxaban 2.5 mg 02/19/23 09:45 Rivaroxaban 2.5 Mg Tablet PO BID [facility] Protocol Ropinirole HCl 0.5 mg 02/19/23 09:00 Ropinirole Hcl 0.25 Mg Tab PO TID [facility] Sodium Bicarbonate 650 mg 02/19/23 09:00 Sodium Bicarbonate Tab 650 Mg Tab PO DAILY [facility] Intake and Output 02/18/23 02/19/23 02/19/23 22:59 06:59 14:59 Other: Voiding Method Toilet # Voids 1 Weight 79.832 kg 02/18/23 15:02 02/18/23 15:02
[2023-02-19] MEDS: CLOPIDOGREL 75 MG TAB PO SCH (10:24)
[2023-02-19] MEDS: ATORVASTATIN 80 MG TAB PO SCH (10:24)
[2023-02-19] MEDS: GABAPENTIN 100 MG CAP PO SCH ×3 (10:29→21:26)
[2023-02-19] MEDS: FUROSEMIDE 40 MG TAB PO SCH (10:29)
[2023-02-19] MEDS: ISOSORBIDE MONONITRATE ER 30 MG TAB.ER.24H PO SCH (10:29)
[2023-02-19] MEDS: POTASSIUM CHLORIDE ER 20 MEQ TAB.ER PO SCH (10:29)
[2023-02-19] MEDS: RANOLAZINE 500 MG TAB.ER.12H PO SCH ×2 (10:30→21:26)
[2023-02-19] MEDS: SODIUM BICARBONATE TAB 650 MG TAB PO SCH (10:31)
[2023-02-19] MEDS: METOPROLOL TARTRATE 12.5 MG TAB PO SCH ×2 (10:51→21:26)
[2023-02-19] MEDS: RIVAROXABAN 2.5 MG TABLET PO SCH ×2 (10:51→21:26)
--- NOTE | 2023-02-19 11:12 | P.DS ---
Providers Date of admission: 02/18/23 17:56 Expected date of discharge: 02/19/23 Attending physician: Thuy Villela MD Consults: 02/18/23 17:56 Consult Physician Routine Consulting Provider: Keri Garcia Consult Reason/Comments: stool occult blood positive Do you want consulting provider notified?: Yes 02/18/23 19:03 Consult Physician Routine Consulting Provider: Yulissa Ivory Consult Reason/Comments: peritoneal dialysis Do you want consulting provider notified?: Yes 02/19/23 00:35 Consult Physician Urgent Consulting Provider: Bobby Stone Consult Reason/Comments: Blood loss anemia while on triple therapy for CAD Do you want consulting provider notified?: Yes Primary care physician: Cook Hospital Course: Patient is a 72-year-old male with an extensive PMH including CAD status post multiple stents (on aspirin, Plavix, and Xarelto), history of GI bleeding with blood loss anemia, ESRD on peritoneal dialysis, type II DM, hypertension, and hyperlipidemia who presented to the emergency room after a syncopal episode. The patient also reports that he has been experiencing black stools over the past 2 days. Denied bleeding elsewhere. In the emergency room, CT brain and cervical spine were unremarkable. EKG had revealed sinus rhythm with PVCs at 70 with a left bundle-branch block as reviewed by me. Laboratory evaluation was remarkable for WBC count of 13.4, hemoglobin 7.3, down from previously 8.1 on 01/16. Creatinine was 8.6, PTT 186, sodium 132, chloride 93, and stool occult blood positive. Cardiology was consulted and recommended discontinuing aspirin, continuing Plavix and Xarelto. His Metoprolol was cut down from 25 to 12.5 mg PO BID. Midodrine 5 mg PO TID was added as well. Patient was adamant about wanting to leave against medical advise on 02/19. He declined any further intervention and GI workup. He reported no lightheadedness when seen on 02/19. He was able to ambulate in his room comfortably. He states that his took care of him at home. He is advised to come back to the ED for worsening chest pain, shortness of breath, palpitations or dizziness. He is advised to obtain a CBC and BMP within 3 days to be followed up by his PCP. He is advised to follow up with Cardiology and Gastroenterology within 1 week of discharge. Patient verbalized understanding of the plan. Pertinent studies include a head CT, C-spine CT, EKG. General: non toxic, no distress, appears at stated age, normal weight Derm: no unusual rashes/lesions, warm Head: atraumatic, normocephalic, symmetric Eyes: EOMI, no lid lag, anicteric sclera ENT: Nose and ears atraumatic Neck: No cervical lymphadenopathy, trachea midline, supple Cardiovascular: S1S2 reg, no murmur, no edema Lungs: CTA bilateral, no rhonchi, no rales, no accessory muscle use Ext: muscle strength 5 out of 5 in all 4 extremities grossly, no gross muscle atrophy, no contractures, Neuro: no gross focal neuro deficits Psych: Alert, oriented, appropriate affect Discharge diagnosis: Syncope, suspect secondary to blood loss anemia due to GI bleeding ESRD on dialysis Elevated PTT, suspect due to NOAC use CAD, hypertension, hyperlipidemia, type II DM This complex discharge took 35 minutes to complete. Patient Condition at Discharge: Fair Plan - Discharge Summary Discharge Rx Participant: No New Discharge Prescriptions: New Metoprolol Tartrate [Lopressor] 12.5 mg PO BID #60 tab Midodrine [ProAmatine] 5 mg PO AC-TID #90 tab Rivaroxaban [Xarelto] 2.5 mg PO BID tab Continue Ergocalciferol (Vitamin D2) [Vitamin D2] 1,250 mcg PO Q14D DULoxetine HCL [Cymbalta] 20 mg PO HS Melatonin 5 mg PO HS Sennosides-Docusate Sodium [Senokot-S] 2 tab PO TID Nitroglycerin Sl Tabs [Nitrostat] 0.4 mg SL Q5M PRN PRN Reason: Chest Pain Gabapentin [Neurontin] 100 mg PO TID oxyBUTYnin chloride [Ditropan] 5 mg PO HS Cyanocobalamin [Vitamin B-12] 1,000 mcg PO DAILY Potassium Chloride 20 meq PO DAILY Clopidogrel [Plavix] 75 mg PO DAILY #30 tablet Amiodarone [Cordarone] 200 mg PO DAILY@1400 Calcium Acetate [PhosLo] 667 mg PO 5XD PRN PRN Reason: with meals and snacks Isosorbide Mononitrate ER [Imdur] 30 mg PO DAILY Ranolazine [Ranexa] 500 mg PO BID rOPINIRole HCL [Requip] 0.5 mg PO TID Ondansetron [Zofran] 4 mg PO DAILY PRN PRN Reason: Nausea And Vomiting Omeprazole 80 mg PO BID Nephro-Deepa 1 tab PO DAILY Lactulose [Constulose] 10 gm PO DAILY PRN PRN Reason: Constipation Insulin Glargine,Hum.rec.anlog [Lantus Solostar Pen] 20 units SQ HS Sodium Bicarbonate Tab 650 mg PO DAILY Acetaminophen Tab [Tylenol] 650 mg PO Q6HR PRN tab PRN Reason: Fever and/ or Mild Pain Atorvastatin Calcium [Lipitor] 80 mg PO DAILY #30 tablet Furosemide [Lasix] 80 mg PO DAILY Insulin Aspart [NovoLOG Flexpen] 8 units SQ TID-W/MEALS Discontinued Aspirin EC [Ecotrin Low Dose] 81 mg PO HS Metoprolol Tartrate [Lopressor] 25 mg PO BID Discharge Medication List Ergocalciferol (Vitamin D2) [Vitamin D2] 1,250 mcg PO Q14D 07/18/17 [History] DULoxetine HCL [Cymbalta] 20 mg PO HS 10/27/20 [History] Melatonin 5 mg PO HS 12/19/20 [History] Sennosides-Docusate Sodium [Senokot-S] 2 tab PO TID 12/31/20 [History] Gabapentin [Neurontin] 100 mg PO TID 01/23/21 [History] Nitroglycerin Sl Tabs [Nitrostat] 0.4 mg SL Q5M PRN 01/23/21 [History] rOPINIRole HCL [Requip] 0.5 mg PO TID 01/23/21 [History] Ondansetron [Zofran] 4 mg PO DAILY PRN 05/08/21 [History] oxyBUTYnin chloride [Ditropan] 5 mg PO HS 06/28/21 [History] Lactulose [Constulose] 10 gm PO DAILY PRN 11/12/21 [History] Nephro-Deepa 1 tab PO DAILY 11/12/21 [History] Omeprazole 80 mg PO BID 11/12/21 [History] Cyanocobalamin [Vitamin B-12] 1,000 mcg PO DAILY 12/14/21 [History] Potassium Chloride 20 meq PO DAILY 11/29/22 [History] Insulin Glargine,Hum.rec.anlog [Lantus Solostar Pen] 20 units SQ HS 01/12/23 [History] Sodium Bicarbonate Tab 650 mg PO DAILY 01/12/23 [History] Acetaminophen Tab [Tylenol] 650 mg PO Q6HR PRN tab 01/16/23 [Rx] Atorvastatin Calcium [Lipitor] 80 mg PO DAILY #30 tablet 01/16/23 [Rx] Clopidogrel [Plavix] 75 mg PO DAILY #30 tablet 01/16/23 [Rx] Amiodarone [Cordarone] 200 mg PO DAILY@1400 02/18/23 [History] Calcium Acetate [PhosLo] 667 mg PO 5XD PRN 02/18/23 [History] Furosemide [Lasix] 80 mg PO DAILY 02/18/23 [History] Insulin Aspart [NovoLOG Flexpen] 8 units SQ TID-W/MEALS 02/18/23 [History] Isosorbide Mononitrate ER [Imdur] 30 mg PO DAILY 02/18/23 [History] Ranolazine [Ranexa] 500 mg PO BID 02/18/23 [History] Metoprolol Tartrate [Lopressor] 12.5 mg PO BID #60 tab 02/19/23 [Rx] Midodrine [ProAmatine] 5 mg PO AC-TID #90 tab 02/19/23 [Rx] Rivaroxaban [Xarelto] 2.5 mg PO BID tab 02/19/23 [Rx] Follow up Appointment(s)/Referral(s): Burak Dowell DO [STAFF PHYSICIAN] - 1 Week Keri Garcia MD [STAFF PHYSICIAN] - 1 Week [facility]inic [Primary Care Provider] - 1-2 days Ambulatory/Diagnostic Orders: Basic Metabolic Panel [LAB.AMB] Location: None Selected Complete Blood Count w/diff [LAB.AMB] Location: None Selected Activity/Diet/Wound Care/Special Instructions: Diet: Renal Follow up with your PCP within 1-2 days of discharge. Follow up with Cardiology and Gastroenterology within 1 week of discharge. Stop aspirin. Continue Plavix and Xarelto. Repeat CBC and BMP in 3 days. Follow up the results with your PCP. Take all medications as advised. Come back to the ED for worsening chest pain, shortness of breath, palpitations or dizziness. Discharge Disposition: HOME SELF-CARE
--- NOTE | 2023-02-19 11:45 | P.CONS ---
History of Present Illness - Reason for Consult Consult date: 02/19/23 Stool occult blood positive Requesting physician: Myke Pack - Chief Complaint Syncope, fall - History of Present Illness This is a pleasant 72-year-old male who presented to the emergency department after feeling dizzy yesterday and having a fall. He has a past medical history including coronary artery disease with multiple stents his most recent done at [facility] in January, GI bleed, iron deficiency anemia, end-stage renal disease on peritoneal dialysis, peripheral vascular disease, COPD, diabetes mellitus, GERD, hypertension, and hyperlipidemia. He is currently on aspirin 81 mg, Plavix 75 mg daily and several toe 2.5 mg twice a day. He has a past medical history of iron deficiency anemia and suspected GI bleed. His last EGD was done in June [address] Gomez revealing mild gastritis. Last colonoscopy 2016 with overall normal colon. He then underwent a small bowel capsule endoscopy in 2017 with findings of duodenal and jejunum nonbleeding AVM. Patient had hemoglobin of 7.3 on admission, and had reported that he had been having black stools. He had a stool occult blood was positive. Patient presented to the emergency department on 01/25/2023 with chest pain he was noted to be severely anemic hemoglobin of 5.7. At that time there is no GI present and at this facility and he was transferred to [facility] where he underwent a cardiac standpoint states that he did not have any endoscopic evaluation due to his cardiac status. He has also follow-up with Dr. Armstrong for iron infusions as needed. States that about a week ago he did have some dark stools he denies any tarry stools. Denies any abdominal pain, nausea or vomiting. Patient states he wants to be discharged and does not want any endoscopic evaluation. Cardiology has seen patient and cleared for discharge with discontinuing aspirin and recommending continuing of xarelto and Plavix. Review of Systems REVIEW OF SYSTEMS: CARDIOPULMONARY: No chest pain or shortness of breath. Gastrointestinal: Denies any epigastric or abdominal pain. No nausea or vomiting. No hematemesis, coffee-ground emesis. No rectal bleeding, or melena. States he had dark stool about a week ago. GENITOURINARY: No dysuria or hematuria. MUSCULOSKELETAL: Reports normal range of motion., Joint pain. SKIN: No rashes. No jaundice. ENDOCRINE: No chills, fevers. No excessive weight gain or loss. No polydipsia or polyuria. PSYCHIATRIC: Unremarkable. NEUROLOGY: No change in mental status. Dizziness with recent fall. ENT: Vision unremarkable. CONSTITUTIONAL: No recent weight loss. No fever, chills, night sweats. Past Medical History Past Medical History: Coronary Artery Disease (CAD), Chest Pain / Angina, Heart Failure, COPD, Diabetes Mellitus, Dialysis, GERD/Reflux, GI Bleed, Hyperlipidemia, Hypertension, Myocardial Infarction ([place]), Pneumonia, Renal Disease, Vascular Disorder Additional Past Medical History / Comment(s): Lower GI bleeds/suspect micro bleeds in intestine, occasional abdominal bloating, IDDM type II, neuropathy bilateral feet, ESRD with peritoneal dialysis ((cycler at night for 5 hours), past hemodialysis/spouse states she was told L upper arm fistula is plugged again, chronic anemia/transfusion of blood/iron, past partial SBO, benign colon polyps, chronic low back pain with bilateral sciatica, PVD, RLS, vertigo, insomnia, 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 Last Myocardial Infarction Date:: 03/2020 History of Any Multi-Drug Resistant Organisms: None Reported Past Surgical History: Cholecystectomy, Heart Catheterization With Stent Additional Past Surgical History / Comment(s): 03/25/20 R sublclavian mediport, R carotid stent done in [place], EGD/colonoscopy, endoscopic capsule, ORIF left wrist, aortagram, bilateral leg revascularizations/stents, left upper arm fistula and on 12/15/21 had thrombectomy balloon angioplasty of L arm fistula, peritoneal dialysis catheter removal and insertion (11/23/21). Past Anesthesia/Blood Transfusion Reactions: No Reported Reaction Additional Past Anesthesia/Blood Transfusion Reaction / Comm: Pt has had multiple blood transfusions without reaction. Date of Last Stent Placement:: 03/2021 Past Psychological History: No Psychological Hx Reported, PTSD Smoking Status: Current every day smoker, Former smoker - Past Family History Father History Unknown: Yes Mother Family Medical History: Cancer Additional Family Medical History / Comment(s): Mother from metastatic cancer pelvic origin. Medications and Allergies Home Medications Medication Instructions Recorded Confirmed Type Ergocalciferol (Vitamin D2) 1,250 mcg PO Q14D 07/18/17 02/18/23 History [Vitamin D2] DULoxetine HCL [Cymbalta] 20 mg PO HS 10/27/20 02/18/23 History Melatonin 5 mg PO HS 12/19/20 02/18/23 History Sennosides-Docusate Sodium 2 tab PO TID 12/31/20 02/18/23 History [Senokot-S] Gabapentin [Neurontin] 100 mg PO TID 01/23/21 02/18/23 History Nitroglycerin Sl Tabs [Nitrostat] 0.4 mg SL Q5M PRN 01/23/21 02/18/23 History rOPINIRole HCL [Requip] 0.5 mg PO TID 01/23/21 02/18/23 History Ondansetron [Zofran] 4 mg PO DAILY PRN 05/08/21 02/18/23 History oxyBUTYnin chloride [Ditropan] 5 mg PO HS 06/28/21 02/18/23 History Lactulose [Constulose] 10 gm PO DAILY PRN 11/12/21 02/18/23 History Nephro-Deepa 1 tab PO DAILY 11/12/21 02/18/23 History Omeprazole 80 mg PO BID 11/12/21 02/18/23 History Cyanocobalamin [Vitamin B-12] 1,000 mcg PO DAILY 12/14/21 02/18/23 History Potassium Chloride 20 meq PO DAILY 11/29/22 02/18/23 History Insulin Glargine,Hum.rec.anlog 20 units SQ HS 01/12/23 02/18/23 History [Lantus Solostar Pen] Sodium Bicarbonate Tab 650 mg PO DAILY 01/12/23 02/18/23 History Acetaminophen Tab [Tylenol] 650 mg PO Q6HR PRN tab 01/16/23 02/18/23 Rx Atorvastatin Calcium [Lipitor] 80 mg PO DAILY #30 tablet 01/16/23 02/18/23 Rx Clopidogrel [Plavix] 75 mg PO DAILY #30 tablet 01/16/23 02/18/23 Rx Amiodarone [Cordarone] 200 mg PO DAILY@1400 02/18/23 02/18/23 History Calcium Acetate [PhosLo] 667 mg PO 5XD PRN 02/18/23 02/18/23 History Furosemide [Lasix] 80 mg PO DAILY 02/18/23 02/18/23 History Insulin Aspart [NovoLOG Flexpen] 8 units SQ TID-W/MEALS 02/18/23 02/18/23 History Isosorbide Mononitrate ER [Imdur] 30 mg PO DAILY 02/18/23 02/18/23 History Ranolazine [Ranexa] 500 mg PO BID 02/18/23 02/18/23 History Metoprolol Tartrate [Lopressor] 12.5 mg PO BID #60 tab 02/19/23 Rx Midodrine [ProAmatine] 5 mg PO AC-TID #90 tab 02/19/23 Rx Rivaroxaban [Xarelto] 2.5 mg PO BID tab 02/19/23 Rx Allergies Allergy/AdvReac Type Severity Reaction Status Date / Time Iodinated Contrast Media AdvReac CAN'T Verified 02/18/23 19:39 TAKE, RENAL DISEASE Iodine and Iodide Containing AdvReac CAN'T Verified 02/18/23 19:39 Produc TAKE, RENAL DISEASE Physical Exam Vitals: Vital Signs Temp Pulse Pulse Resp BP BP BP 02/19/23 05:05 95/45 02/19/23 00:05 97.7 F 48 L 20 100/56 02/18/23 20:17 70 18 100/77 02/18/23 13:43 98.6 F 70 19 106/60 BP BP Pulse Ox 02/19/23 05:05 88/48 121/61 02/19/23 00:05 100 02/18/23 20:17 96 02/18/23 13:43 95 Intake and Output 02/18/23 02/19/23 02/19/23 22:59 06:59 14:59 Other: Voiding Method Toilet # Voids 1 Weight 79.832 kg General appearance: The patient is alert, oriented, appears in no acute distress. HET: Head is normocephalic and atraumatic. Conjunctiva pink. Sclera anicteric. Neck: Supple without lymphadenopathy. Trachea midline. Heart: S1 S2. Regular rate and rhythm. Lungs: Clear to auscultation. Abdomen: Soft, nontender, nondistended with bowel sounds. No guarding or rigidity. Skin: No rashes. No jaundice. Extremities: Normal skin color and turgor. No pedal edema. Neurological: No focal deficits. Alert and oriented x3. Results CBC & Chem 7: 02/18/23 15:02 02/18/23 15:02 Labs: Abnormal Lab Results - Last 24 Hours (Table) 02/18/23 02/18/23 02/18/23 Range/Units 15:02 15:02 15:02 WBC 13.4 H (3.8-10.6) k/uL RBC 2.44 L (4.30-5.90) m/uL Hgb 7.3 L D (13.0-17.5) gm/dL Hct 24.0 L (39.0-53.0) % MCHC 30.3 L (31.0-37.0) g/dL RDW 23.8 H (11.5-15.5) % Plt Count 492 H (150-450) k/uL Neutrophils # 11.9 H (1.3-7.7) k/uL Lymphocytes # 0.6 L (1.0-4.8) k/uL APTT 186.4 H* (22.0-30.0) sec Sodium 132 L (137-145) mmol/L Chloride 93 L (98-107) mmol/L BUN 57 H (9-20) mg/dL Creatinine 8.61 H* (0.66-1.25) mg/dL Glucose 146 H (74-99) mg/dL POC Glucose (mg/dL) (70-110) mg/dL Calcium 8.2 L (8.4-10.2) mg/dL 02/19/23 Range/Units 07:20 WBC (3.8-10.6) k/uL RBC (4.30-5.90) m/uL Hgb (13.0-17.5) gm/dL Hct (39.0-53.0) % MCHC (31.0-37.0) g/dL RDW (11.5-15.5) % Plt Count (150-450) k/uL Neutrophils # (1.3-7.7) k/uL Lymphocytes # (1.0-4.8) k/uL APTT (22.0-30.0) sec Sodium (137-145) mmol/L Chloride (98-107) mmol/L BUN (9-20) mg/dL Creatinine (0.66-1.25) mg/dL Glucose (74-99) mg/dL POC Glucose (mg/dL) 180 H (70-110) mg/dL Calcium (8.4-10.2) mg/dL Assessment and Plan (1) Chronic anemia Narrative/Plan: 72-year-old male with a history of chronic iron deficiency anemia who has had multiple endoscopy evaluations in the past with his last EGD being in June 2021 showing mild gastritis with no active bleeding. Previously has had a small bowel capsule endoscopy in 2018 dictated revealed nonbleeding duodenal and jejunum AVMs. Patient presented with syncope and fall was noted to have a hemoglobin of 7.3 with a normocytic normochromic anemia. She had a positive occult stool test done in the emergency department. He denies any black stool currently, states he had black stool about a week ago. Does get outpatient iron infusions when needed. Patient had recent transfer to [facility] in the beginning of January of this year for chest pain and severe anemia. He underwent cardiac stenting at that time currently was on several toe aspirin and Plavix he did not have any scopes done during that hospitalization due to coronary artery disease. It is recommended to patient and offered to do endoscopic evaluation during this hospitalization however patient is declining and wishes to be disch arged with outpatient follow-up. Current Visit: No Status: Acute Code(s): D64.9 - ANEMIA, UNSPECIFIED SNOM ED Code(s): 454155227 (2) Stool guaiac positive Current Visit: No Status: Acute Code(s): R19.5 - OTHER FECAL ABNORMALITIES SNOMED Code(s): 15496464 (3) End-stage renal disease on peritoneal dialysis Current Visit: Yes Status: Acute Code(s): N18.6 - END STAGE RENAL DISEASE; Z99.2 - DEPENDENCE ON RENAL DIALYSIS SNOMED Code(s): 429051569 (4) Coronary artery disease Current Visit: Yes Status: Acute Code(s): I25.10 - ATHSCL HEART DISEASE OF [place] CORONARY ARTERY W/O ANG PCTRS SNOMED Code(s): 92836343 (5) History of heart artery stent Current Visit: Yes Status: Acute Code(s): Z95.5 - PRESENCE OF CORONARY ANGIOPLASTY IMPLANT AND GRAFT SNOMED Code(s): 343958897 (6) DM2 (diabetes mellitus, type 2) Current Visit: No Status: Acute Code(s): E11.9 - TYPE 2 DIABETES MELLITUS WITHOUT COMPLICATIONS SNOMED Code(s): 27404389 Plan: 1. Continue symptomatic and supportive care 2. Iron studies, anemia workup ordered. Recommend parental iron and labs consistent with iron deficiency anemia 3. Recommend and offered endoscopic evaluation for anemia during this hospitalization with recent anticoagulation/antiplatelet therapy. Patient is declining endoscopic evaluation at this time and requesting discharge with outpatient endoscopy. This is reasonable as patient is not currently having any black stool or blood in his stool. Recommend follow-up with gastroenterology in the next 1-2 weeks to schedule outpatient endoscopies. Recommend close follow-up with primary medical physician for repeat CBC and recommendation for possible iron infusions. Thank you for this consultation, we will continue to follow. Dr. Niko Garcia I agree with the dictator's note, documented as a scribe by Cindy Blanco.
[2023-02-19 11:57] LABS: Glucose,Whole Blood 172 mg/dL (70-110)
[2023-02-19 12:02] LABS: Anisocytosis Moderate; HGB 7.5 gm/dL (13.0-17.5); Hypochromasia Marked; MCH 30.4 pg (25.0-35.0); MCV 101.4 fL (80.0-100.0); Macrocytosis Marked; Mean Platelet Volume 8.1; Platelet Count 491 k/uL (150-450); Poikilocytosis Slight; RBC 2.47 m/uL (4.30-5.90); RDW 23.5 % (11.5-15.5); WBC 10.6 k/uL (3.8-10.6)
[2023-02-19] MEDS ORDERED: SODIUM CHLORIDE 0.9% 500 ML 500 ML IV ONE (12:04)
[2023-02-19 12:07] LABS: Reticulocyte % 8.7 % (0.5-2.0)
--- NOTE | 2023-02-19 12:07 | P.NPCON ---
History of Present Illness - Reason for Consult end stage renal disease - History of Present Illness Patient is a 72-year-old male with end-stage renal disease on peritoneal dialysis was admitted to the hospital with complaints of passing out at home. Patient was walking to the bathroom and he felt dizzy and lightheaded. He did fall. No complaints of chest pains or palpitations. Blood pressure has been low. Patient was noted to have hemoglobin of 7.3 g/dL. Previous hemoglobin has been low around 7-8 g/dL with a hemoglobin of 5.7 on 02/04/2023. Patient is any active bleeding however he did state that his stools had been dark about a week ago. Patient is scheduled to follow-up with GI as outpatient. Hemoglobin was 7.5 g/dL this morning. Patient wants to go home. No active bleeding currently. No issues with dialysis overnight. Review of Systems As per HPI Past Medical History Past Medical History: Coronary Artery Disease (CAD), Chest Pain / Angina, Heart Failure, COPD, Diabetes Mellitus, Dialysis, GERD/Reflux, GI Bleed, Hyperlipidemia, Hypertension, Myocardial Infarction ([place]), Pneumonia, Renal Disease, Vascular Disorder Additional Past Medical History / Comment(s): Lower GI bleeds/suspect micro bleeds in intestine, occasional abdominal bloating, IDDM type II, neuropathy bilateral feet, ESRD with peritoneal dialysis ((cycler at night for 5 hours), past hemodialysis/spouse states she was told L upper arm fistula is plugged again, chronic anemia/transfusion of blood/iron, past partial SBO, benign colon polyps, chronic low back pain with bilateral sciatica, PVD, RLS, vertigo, insomnia, 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 Last Myocardial Infarction Date:: 03/2020 History of Any Multi-Drug Resistant Organisms: None Reported Past Surgical History: Cholecystectomy, Heart Catheterization With Stent Additional Past Surgical History / Comment(s): 03/25/20 R sublclavian mediport, R carotid stent done in [place], EGD/colonoscopy, endoscopic capsule, ORIF left wrist, aortagram, bilateral leg revascularizations/stents, left upper arm fistula and on 12/15/21 had thrombectomy balloon angioplasty of L arm fistula, peritoneal dialysis catheter removal and insertion (11/23/21). Past Anesthesia/Blood Transfusion Reactions: No Reported Reaction Additional Past Anesthesia/Blood Transfusion Reaction / Comment(s): Pt has had multiple blood transfusions without reaction. Date of Last Stent Placement:: 03/2021 Past Psychological History: No Psychological Hx Reported, PTSD Smoking Status: Current every day smoker, Former smoker - Past Family History Father History Unknown: Yes Mother Family Medical History: Cancer Additional Family Medical History / Comment(s): Mother from metastatic cancer pelvic origin. Medications and Allergies Home Medications Medication Instructions Recorded Confirmed Type Ergocalciferol (Vitamin D2) 1,250 mcg PO Q14D 07/18/17 02/18/23 History [Vitamin D2] DULoxetine HCL [Cymbalta] 20 mg PO HS 10/27/20 02/18/23 History Melatonin 5 mg PO HS 12/19/20 02/18/23 History Sennosides-Docusate Sodium 2 tab PO TID 12/31/20 02/18/23 History [Senokot-S] Gabapentin [Neurontin] 100 mg PO TID 01/23/21 02/18/23 History Nitroglycerin Sl Tabs [Nitrostat] 0.4 mg SL Q5M PRN 01/23/21 02/18/23 History rOPINIRole HCL [Requip] 0.5 mg PO TID 01/23/21 02/18/23 History Ondansetron [Zofran] 4 mg PO DAILY PRN 05/08/21 02/18/23 History oxyBUTYnin chloride [Ditropan] 5 mg PO HS 06/28/21 02/18/23 History Lactulose [Constulose] 10 gm PO DAILY PRN 11/12/21 02/18/23 History Nephro-Deepa 1 tab PO DAILY 11/12/21 02/18/23 History Omeprazole 80 mg PO BID 11/12/21 02/18/23 History Cyanocobalamin [Vitamin B-12] 1,000 mcg PO DAILY 12/14/21 02/18/23 History Potassium Chloride 20 meq PO DAILY 11/29/22 02/18/23 History Insulin Glargine,Hum.rec.anlog 20 units SQ HS 01/12/23 02/18/23 History [Lantus Solostar Pen] Sodium Bicarbonate Tab 650 mg PO DAILY 01/12/23 02/18/23 History Acetaminophen Tab [Tylenol] 650 mg PO Q6HR PRN tab 01/16/23 02/18/23 Rx Atorvastatin Calcium [Lipitor] 80 mg PO DAILY #30 tablet 01/16/23 02/18/23 Rx Clopidogrel [Plavix] 75 mg PO DAILY #30 tablet 01/16/23 02/18/23 Rx Amiodarone [Cordarone] 200 mg PO DAILY@1400 02/18/23 02/18/23 History Calcium Acetate [PhosLo] 667 mg PO 5XD PRN 02/18/23 02/18/23 History Furosemide [Lasix] 80 mg PO DAILY 02/18/23 02/18/23 History Insulin Aspart [NovoLOG Flexpen] 8 units SQ TID-W/MEALS 02/18/23 02/18/23 History Isosorbide Mononitrate ER [Imdur] 30 mg PO DAILY 02/18/23 02/18/23 History Ranolazine [Ranexa] 500 mg PO BID 02/18/23 02/18/23 History Metoprolol Tartrate [Lopressor] 12.5 mg PO BID #60 tab 02/19/23 Rx Midodrine [ProAmatine] 5 mg PO AC-TID #90 tab 02/19/23 Rx Rivaroxaban [Xarelto] 2.5 mg PO BID tab 02/19/23 Rx Allergies Allergy/AdvReac Type Severity Reaction Status Date / Time Iodinated Contrast Media AdvReac CAN'T Verified 02/18/23 19:39 TAKE, RENAL DISEASE Iodine and Iodide Containing AdvReac CAN'T Verified 02/18/23 19:39 Produc TAKE, RENAL DISEASE Physical Exam Vitals: Vital Signs Temp Pulse Pulse Resp BP BP BP 02/19/23 08:00 16 02/19/23 07:22 97.9 F 71 16 02/19/23 05:05 95/45 02/19/23 00:05 97.7 F 48 L 20 100/56 02/18/23 20:17 70 18 100/77 02/18/23 13:43 98.6 F 70 19 106/60 BP BP Pulse Ox 02/19/23 08:00 02/19/23 07:22 118/61 96 02/19/23 05:05 88/48 121/61 02/19/23 00:05 100 02/18/23 20:17 96 02/18/23 13:43 95 Intake and Output 02/18/23 02/19/23 02/19/23 22:59 06:59 14:59 Other: Voiding Method Toilet Toilet # Voids 1 Weight 79.832 kg Patient is awake, comfortable, no acute distress Examination of the heart S1 and S2 Examination of the lungs bilateral breath sounds are heard Abdomen is soft nontender Examination of lower extremity shows no significant edema [employer] exam grossly intact Results - Lab Results Most recent lab results Calcium 8.2 mg/dL (8.4-10.2) L 02/18/23 15:02 02/18/23 15:02 02/18/23 15:02 Assessment and Plan Assessment: 1. End-stage renal disease on peritoneal dialysis 2. Anemia with no significant active bleeding noted. Patient is to follow-up with GI as outpatient. Hemoglobin 7.5 g/dL today 3. Coronary artery disease with history of recent stenting of RCA in December 2022 4. Hypotension and syncope 5. CK D mineral bone disorder Plan: Decrease dose of metoprolol Aranesp 1 prior to discharge Patient can be discharged from nephrology standpoint and follow-up as outpatient with GI.
[2023-02-19 12:43] LABS: Glucose,Whole Blood 129 mg/dL (70-110)
[2023-02-19] MEDS: MIDODRINE 5 MG TAB PO SCH ×2 (13:14→18:09)
[2023-02-19] MEDS ORDERED: DARBEPOETIN ALFA 60 MCG/0.3 ML SYRINGE SQ SCH (14:00)
[2023-02-19] MEDS ORDERED: SODIUM FERRIC GLUCONAT-SUCROSE 125 MG in SODIUM CHLORIDE 0.9% 100 ML IVPB ONE (15:37)
[2023-02-19] MEDS: AMIODARONE 200 MG TAB PO SCH (16:54)
[2023-02-19 17:15] LABS: Glucose,Whole Blood 183 mg/dL (70-110)
[2023-02-19 20:32] LABS: Glucose,Whole Blood 154 mg/dL (70-110)
[2023-02-19] MEDS ORDERED: oxyBUTYnin chloride 5 MG TAB PO SCH (21:00)
[2023-02-19] MEDS ORDERED: MELATONIN 5 MG TABLET PO SCH (21:00)
[2023-02-19] MEDS: SODIUM CHLORIDE 0.9% 1,000 ML IV SCH (21:29)
[2023-02-19 23:53] LABS: % Iron Saturation 10.25 (15.00-50.00)
[2023-02-20] MEDS: DIALYSIS (PERIT 1.5%) 2,500 ML 37.5 G/2,500 ML BAG INTRAPERIT SCH ×3 (00:31→12:12)
[2023-02-20 07:19] LABS: Anisocytosis Moderate; HCT 24.8 % (39.0-53.0); HGB 7.4 gm/dL (13.0-17.5); Hypochromasia Marked; MCHC 29.7 g/dL (31.0-37.0); MCV 101.1 fL (80.0-100.0); Macrocytosis Marked; Mean Platelet Volume 8.5; Platelet Count 296 k/uL (150-450); Poikilocytosis Slight; RBC 2.46 m/uL (4.30-5.90); RDW 23.5 % (11.5-15.5); WBC 10.2 k/uL (3.8-10.6)
[2023-02-20 07:19] LABS: Glucose,Whole Blood 271 mg/dL (70-110)
[2023-02-20 07:44] LABS: African American GFR (CKD) 7 (>60 ml/min/1.73 sqM); Anion Gap 15 mmol/L; Blood Urea Nitrogen 63 mg/dL (9-20); Calcium 7.5 mg/dL (8.4-10.2); Carbon Dioxide 20 mmol/L (22-30); Chloride 96 mmol/L (98-107); Glucose 207 mg/dL (74-99); Magnesium 1.6 mg/dL (1.6-2.3); Non-African American GFR(CKD) 6 (>60 ml/min/1.73 sqM); Potassium 4.3 mmol/L (3.5-5.1); Sodium 131 mmol/L (137-145)
[2023-02-20] MEDS: ISOSORBIDE MONONITRATE ER 30 MG TAB.ER.24H PO SCH (07:58)
[2023-02-20] MEDS: INSULIN ASPART (NovoLOG) 100 UNIT/ML VIAL SQ SCH ×4 (07:58→13:31)
[2023-02-20] MEDS: GABAPENTIN 100 MG CAP PO SCH (07:58)
[2023-02-20] MEDS: CLOPIDOGREL 75 MG TAB PO SCH (07:58)
[2023-02-20] MEDS: RANOLAZINE 500 MG TAB.ER.12H PO SCH (07:59)
[2023-02-20] MEDS: ATORVASTATIN 80 MG TAB PO SCH (07:59)
[2023-02-20] MEDS: METOPROLOL TARTRATE 12.5 MG TAB PO SCH (07:59)
[2023-02-20] MEDS: FUROSEMIDE 40 MG TAB PO SCH (07:59)
[2023-02-20] MEDS: MIDODRINE 5 MG TAB PO SCH ×2 (07:59→13:31)
[2023-02-20] MEDS: RIVAROXABAN 2.5 MG TABLET PO SCH (07:59)
[2023-02-20] MEDS: SODIUM BICARBONATE TAB 650 MG TAB PO SCH (08:01)
[2023-02-20] MEDS: POTASSIUM CHLORIDE ER 20 MEQ TAB.ER PO SCH (08:01)
[2023-02-20 08:30] VITALS: RESP 15
--- NOTE | 2023-02-20 09:44 | P.PN ---
Subjective HISTORY OF PRESENT ILLNESS: This is a 72-year-old male with a past medical history significant for renal disease on peritoneal dialysis, coronary artery disease with recent stenting of the distal and mid RCA in December 2022, hypertension, hyperlipidemia, peripheral vascular disease, and ischemic cardiomyopathy. Patient follows in the office with Dr. Galdamez. We have been asked to see the patient in consultation for blood loss anemia on triple therapy. Patient examined at the bedside. Patient states he presented to the hospital after having a syncopal episode at home. The patient states he got up and was walking to the bathroom when he began to feel dizzy and lightheaded. He states he then fell to the ground. He believes that he lost consciousness for approximately 1 minute. He denied having any chest pain or pressure. He denied having any shortness of breath. The patient reports having some black stools about a week ago but states he has not had any dark colored stools or bright red blood in his stools for the past few days. The patient is currently prescribed aspirin, Plavix, and Xarelto. The patient s tates he has been taking all 3 of these. The patient is on aspirin and Plavix secondary to recent stenting in December 2022. He is also on low-dose Xarelto secondary to peripheral vascular disease. The patient's hemoglobin was 7.3 on admission. The patient has chronic anemia with a hemoglobin of 7-8. * EKG reveals sinus mechanism with left bundle-branch block. * Laboratory data: WBC 13.4. Hemoglobin 7.3. Platelet count 192. Sodium 132. Potassium 3.9. BUN 57. Creatinine 8.61. * Current home cardiac medications include aspirin 81 mg daily, Plavix 75 mg daily, Lipitor 80 mg daily, metoprolol tartrate 25 mg twice a day, amiodarone 200 mg daily, Ranexa 500 mg twice a day, Imdur 30 mg daily, Lasix 80 mg daily * Most recent echocardiogram obtained in December 2022 revealed ejection fraction 35- 40%, apical hypokinesis, [id number] mitral regurgitation, moderate aortic regurgitation, and mild tricuspid regurgitation * Cardiac catheterization history: December 2022 with stenting to the distal RCA and mid RCA 02/20/2023 Patient examined this morning at the bedside. Patient denies chest pain or pressure. He denies shortness of breath. Vital signs are stable. Patient denies any episodes of dizziness or lightheadedness. Patient was supposed be discharged yesterday however he fell out of bed and his discharge was held. The patient denies losing consciousness at that time. No arrhythmias have been noted on telemetry. PHYSICAL EXAM: VITAL SIGNS: Reviewed. GENERAL: Well-developed in no acute distress. HEENT: Head is normocephalic. Pupils are equal, round. Sclerae anicteric. Mucous membranes of the mouth are moist. Neck supple. No JVD or thyromegaly LUNGS: Respirations even and unlabored. Lungs essentially clear to auscultation bilaterally. HEART: Regular rate and rhythm. S1 and S2 heard. Systolic murmur noted ABDOMEN: Soft. Nondistended. Nontender. EXTREMITIES: Normal range of motion. No clubbing or cyanosis. Peripheral pulses intact. No lower extremity edema NEUROLOGIC: Awake and alert. Oriented x 3. ASSESSMENT: Syncope Orthostatic hypotension Anemia of chronic disease Coronary artery disease with recent stenting of the RCA, December 2022 Ischemic cardiomyopathy End-stage renal disease on peritoneal dialysis Peripheral vascular disease, on low-dose Xarelto Hypertension Hyperlipidemia PLAN: No need to repeat echocardiogram as this was performed in December 2022 Patient with positive orthostatic blood pressures. Patient encouraged to change positions slowly. Continue to hold aspirin at discharge. Continue Plavix and low-dose Xarelto Patient is currently stable from a cardiac standpoint Further recommendations pending patient's course Nurse practitioner note has been reviewed by physician. Signing provider agrees with the documented findings, assessment, and plan of care. Objective - Vital Signs Vital signs: Vital Signs Temp 97.4 F L 02/20/23 07:15 Pulse 75 02/20/23 07:15 Resp 15 02/20/23 07:15 BP 107/61 02/20/23 07:15 Pulse Ox 98 02/20/23 07:15 FiO2 Intake & Output 02/19/23 02/20/23 02/20/23 18:59 06:59 18:59 Intake Total 600 Balance 600 Intake: Oral 600 Other: Voiding Method Toilet Toilet Urinal CAPD # Voids 3 2 # Bowel Movements 1 - Labs CBC & Chem 7: 02/20/23 06:19 02/20/23 06:19 Labs: Abnormal Lab Results - Last 24 Hours (Table) 02/19/23 02/19/23 02/19/23 Range/Units 11:23 11:23 11:23 RBC 2.47 L (4.30-5.90) m/uL Hgb 7.5 L (13.0-17.5) gm/dL Hct 25.0 L (39.0-53.0) % MCV 101.4 H (80.0-100.0) fL MCHC 30.0 L (31.0-37.0) g/dL RDW 23.5 H (11.5-15.5) % Plt Count 491 H (150-450) k/uL Macrocytosis Marked A Retic Count 8.7 H (0.5-2.0) % Sodium (137-145) mmol/L Chloride (98-107) mmol/L Carbon Dioxide (22-30) mmol/L BUN (9-20) mg/dL Creatinine (0.66-1.25) mg/dL Glucose (74-99) mg/dL POC Glucose (mg/dL) (70-110) mg/dL Calcium (8.4-10.2) mg/dL Iron 25 L (65-175) UG/DL % Saturation 10.25 L (15.00-50.00) Transferrin 174.0 L (204.0-354.0) mg/dL Ferritin 459.0 H (22.0-322.0) ng/mL Vitamin B12 2273.0 H (200.0-944.0) pg/mL Folate (4.40-31.00) ng/mL 02/19/23 02/19/23 02/19/23 Range/Units 11: 11:56 12:41 RBC (4.30-5.90) m/uL Hgb (13.0-17.5) gm/dL Hct (39.0-53.0) % MCV (80.0-100.0) fL MCHC (31.0-37.0) g/dL RDW (11.5-15.5) % Plt Count (150-450) k/uL Macrocytosis Retic Count (0.5-2.0) % Sodium (137-145) mmol/L Chloride (98-107) mmol/L Carbon Dioxide (22-30) mmol/L BUN (9-20) mg/dL Creatinine (0.66-1.25) mg/dL Glucose (74-99) mg/dL POC Glucose (mg/dL) 172 H 129 H (70-110) mg/dL Calcium (8.4-10.2) mg/dL Iron (65-175) UG/DL % Saturation (15.00-50.00) Transferrin (204.0-354.0) mg/dL Ferritin (22.0-322.0) ng/mL Vitamin B12 (200.0-944.0) pg/mL Folate 31.40 H (4.40-31.00) ng/mL 02/19/23 02/19/23 02/20/23 Range/Units 17:13 20:23 06:19 RBC 2.46 L (4.30-5.90) m/uL Hgb 7.4 L (13.0-17.5) gm/dL Hct 24.8 L (39.0-53.0) % MCV 101.1 H (80.0-100.0) fL MCHC 29.7 L (31.0-37.0) g/dL RDW 23.5 H (11.5-15.5) % Plt Count (150-450) k/uL Macrocytosis Marked A Retic Count (0.5-2.0) % Sodium (137-145) mmol/L Chloride (98-107) mmol/L Carbon Dioxide (22-30) mmol/L BUN (9-20) mg/dL Creatinine (0.66-1.25) mg/dL Glucose (74-99) mg/dL POC Glucose (mg/dL) 183 H 154 H (70-110) mg/dL Calcium (8.4-10.2) mg/dL Iron (65-175) UG/DL % Saturation (15.00-50.00) Transferrin (204.0-354.0) mg/dL Ferritin (22.0-322.0) ng/mL Vitamin B12 (200.0-944.0) pg/mL Folate (4.40-31.00) ng/mL 02/20/23 02/20/23 Range/Units 06:19 07:18 RBC (4.30-5.90) m/uL Hgb (13.0-17.5) gm/dL Hct (39.0-53.0) % MCV (80.0-100.0) fL MCHC (31.0-37.0) g/dL RDW (11.5-15.5) % Plt Count (150-450) k/uL Macrocytosis Retic Count (0.5-2.0) % Sodium 131 L (137-145) mmol/L Chloride 96 L (98-107) mmol/L Carbon Dioxide 20 L (22-30) mmol/L BUN 63 H (9-20) mg/dL Creatinine 8.43 H* (0.66-1.25) mg/dL Glucose 207 H (74-99) mg/dL POC Glucose (mg/dL) 271 H (70-110) mg/dL Calcium 7.5 L (8.4-10.2) mg/dL Iron (65-175) UG/DL % Saturation (15.00-50.00) Transferrin (204.0-354.0) mg/dL Ferritin (22.0-322.0) ng/mL Vitamin B12 (200.0-944.0) pg/mL Folate (4.40-31.00) ng/mL
[2023-02-20] MEDS: MAGNESIUM SULFATE-D5W PMX 1 GM in DEXTROSE/WATER 1 100ML.BAG IVPB SCH ×3 (10:45→15:46)
[2023-02-20 12:40] LABS: Glucose,Whole Blood 162 mg/dL (70-110)
--- NOTE | 2023-02-20 12:42 | P.PN ---
Subjective Progress Note Date: 02/20/23 Principal diagnosis: Anemia This is a pleasant 72-year-old male who presented to the emergency department after feeling dizzy yesterday and having a fall. He has a past medical history including coronary artery disease with multiple stents his most recent done at [facility] in January, GI bleed, iron deficiency anemia, end-stage renal disease on peritoneal dialysis, peripheral vascular disease, COPD, diabetes mellitus, GERD, hypertension, and hyperlipidemia. He is currently on aspirin 81 mg, Plavix 75 mg daily and several toe 2.5 mg twice a day. He has a past medic al history of iron deficiency anemia and suspected GI bleed. His last EGD was done in June [address] Gomez revealing mild gastritis. Last colonoscopy 2016 with overall normal colon. He then underwent a small bowel capsule endoscopy in 2017 with findings of duodenal and jejunum nonbleeding AVM. Patient had hemoglobin of 7.3 on admission, and had reported that he had been having black stools. He had a stool occult blood was positive. Patient presented to the emergency department on 01/25/2023 with chest pain he was noted to be severely anemic hemoglobin of 5.7. At that time there is no GI present and at this facility and he was transferred to [facility] where he underwent a cardiac standpoint states that he did not have any endoscopic evaluation due to his cardiac status. He has also follow-up with Dr. Armstrong for iron infusions as needed. States that about a week ago he did have some dark stools he denies any tarry stools. Denies any abdominal pain, nausea or vomit ing. Patient states he wants to be discharged and does not want any endoscopic evaluation. Cardiology has seen patient and cleared for discharge with discontinuing aspirin and recommending continuing of xarelto and Plavix. 02/20/2023 Patient seen and examined at the follow-up. Patient was exposed be discharged yesterday but apparently he had a fall. Nursing reports that he had slid out of bed denies any sustained injuries. He did receive dose of IV iron. He states had a bowel movement today, and normal-appearing. Denies any other rectal bleeding, abdominal pain, nausea, vomiting. Objective - Vital Signs Vital signs: Vital Signs Temp 97.4 F L 02/20/23 07:15 Pulse 75 07/05/23 07:15 Resp 15 02/20/23 07:15 BP 107/61 02/20/23 07:15 Pulse Ox 98 02/20/23 07:15 FiO2 Intake & Output 02/19/23 02/20/23 02/20/23 18:59 06:59 18:59 Intake Total 600 Balance 600 Intake: Oral 600 Other: Voiding Method Toilet Toilet Urinal CAPD # Voids 3 2 # Bowel Movements 1 - Exam General appearance: The patient is alert, oriented, appears in no acute distress. HET: Head is normocephalic and atraumatic. Conjunctiva pink. Sclera anicteric. Neck: Supple without lymphadenopathy. Abdomen: Soft, nontender, nondistended with bowel sounds. No guarding or rigidity. Extremities: Normal skin color and turgor. No pedal edema Skin: No rashes, no jaundice Neurological: No focal deficits. Alert and oriented. - Labs CBC & Chem 7: 02/20/23 06:19 02/20/23 06:19 Labs: Abnormal Lab Results - Last 24 Hours (Table) 02/19/23 02/19/23 02/19/23 Range/Units 11:23 11:23 12:41 RBC (4.30-5.90) m/uL Hgb (13.0-17.5) gm/dL Hct (39.0-53.0) % MCV (80.0-100.0) fL MCHC (31.0-37.0) g/dL RDW (11.5-15.5) % Macrocytosis Sodium (137-145) mmol/L Chloride (98-107) mmol/L Carbon Dioxide (22-30) mmol/L BUN (9-20) mg/dL Creatinine (0.66-1.25) mg/dL Glucose (74-99) mg/dL POC Glucose (mg/dL) 129 H (70-110) mg/dL Calcium (8.4-10.2) mg/dL Iron 25 L (65-175) UG/DL % Saturation 10.25 L (15.00-50.00) Transferrin 174.0 L (204.0-354.0) mg/dL Ferritin 459.0 H (22.0-322.0) ng/mL Vitamin B12 2273.0 H (200.0-944.0) pg/mL Folate 31.40 H (4.40-31.00) ng/mL 02/19/23 02/19/23 02/20/23 Range/Units 17:13 20:23 06:19 RBC 2.46 L (4.30-5.90) m/uL Hgb 7.4 L (13.0-17.5) gm/dL Hct 24.8 L (39.0-53.0) % MCV 101.1 H (80.0-100.0) fL MCHC 29.7 L (31.0-37.0) g/dL RDW 23.5 H (11.5-15.5) % Macrocytosis Marked A Sodium (137-145) mmol/L Chloride (98-107) mmol/L Carbon Dioxide (22-30) mmol/L BUN (9-20) mg/dL Creatinine (0.66-1.25) mg/dL Glucose (74-99) mg/dL POC Glucose (mg/dL) 183 H 154 H (70-110) mg/dL Calcium (8.4-10.2) mg/dL Iron (65-175) UG/DL % Saturation (15.00-50.00) Transferrin (204.0-354.0) mg/dL Ferritin (22.0-322.0) ng/mL Vitamin B12 (200.0-944.0) pg/mL Folate (4.40-31.00) ng/mL 02/20/23 02/20/23 Range/Units 06:19 07:18 RBC (4.30-5.90) m/uL Hgb (13.0-17.5) gm/dL Hct (39.0-53.0) % MCV (80.0-100.0) fL MCHC (31.0-37.0) g/dL RDW (11.5-15.5) % Macrocytosis Sodium 131 L (137-145) mmol/L Chloride 96 L (98-107) mmol/L Carbon Dioxide 20 L (22-30) mmol/L BUN 63 H (9-20) mg/dL Creatinine 8.43 H* (0.66-1.25) mg/dL Glucose 207 H (74-99) mg/dL POC Glucose (mg/dL) 271 H (70-110) mg/dL Calcium 7.5 L (8.4-10.2) mg/dL Iron (65-175) UG/DL % Saturation (15.00-50.00) Transferrin (204.0-354.0) mg/dL Ferritin (22.0-322.0) ng/mL Vitamin B12 (200.0-944.0) pg/mL Folate (4.40-31.00) ng/mL Assessment and Plan (1) Chronic anemia Narrative/Plan: 72-year-old male with a history of chronic iron deficiency anemia who has had multiple endoscopy evaluations in the past with his last EGD being in June 2021 showing mild gastritis with no active bleeding. Previously has had a small bowel capsule endoscopy in 2018 dictated revealed nonbleeding duodenal and jejunum AVMs. Patient presented with syncope and fall was noted to have a hemoglobin of 7.3 with a normocytic normochromic anemia. She had a positive occult stool test done in the emergency department. He denies any black stool currently, states he had black stool about a week ago. Does get outpatient iron infusions when needed. Patient had recent transfer to [facility] in the beginning of January of this year for chest pain and severe anemia. He underwent cardiac stenting at that time currently was on several toe aspirin and Plavix he did not have any scopes done during that hospitalization due to coronary artery disease. It is recommended to patient and offered to do endoscopic evaluation during this hospitalization however patient is declining and wishes to be discharged with outpatient follow-up. Current Visit: No Status: Acute Code(s): D64.9 - ANEMIA, UNSPECIFIED SNOMED Code(s): 549712720 (2) Stool guaiac positive Current Visit: No Status: Acute Code(s): R19.5 - OTHER FECAL ABNORMALITIES SNOMED Code(s): 36298481 (3) End-stage renal disease on peritoneal dialysis Current Visit: Yes Status: Acute Code(s): N18.6 - END STAGE RENAL DISEASE; Z99.2 - DEPENDENCE ON RENAL DIALYSIS SNOMED Code(s): 581857649 (4) Coronary artery disease Current Visit: Yes Status: Acute Code(s): I25.10 - ATHSCL HEART DISEASE OF [place] CORONARY ARTERY W/O ANG PCTRS SNOMED Code(s): 87500900 (5) History of heart artery stent Current Visit: Yes Status: Acute Code(s): Z95.5 - PRESENCE OF CORONARY ANGIOPLASTY IMPLANT AND GRAFT SNOMED Code(s): 796228337 (6) DM2 (diabetes mellitus, type 2) Current Visit: No Status: Acute Code(s): E11.9 - TYPE 2 DIABETES MELLITUS WITHOUT COMPLICATIONS SNOMED Code(s): 51183181 (7) Fall Current Visit: No Status: Acute Code(s): W19.XXXA - UNSPECIFIED FALL, INIT IAL ENCOUNTER SNOMED Code(s): 4410703 Plan: 1. Continue symptomatic and supportive care 2. Iron studies, anemia workup ordered. 3. Parental iron given 4. Continue Plavix and Xarelto recommended by cardiology 5. Recommend and offered endoscopic evaluation for anemia during this hospitalization with recent anticoagulation/antiplatelet therapy. Patient continues to decline endoscopic evaluation at this time and requesting discharge with outpatient endoscopy. This is reasonable as patient is not currently having any black stool or blood in his stool. Recommend follow-up with gastroenterology in the next 1-2 weeks to schedule outpatient endoscopies. Recommend close follow-up with primary medical physician for repeat CBC and rec ommendation for possible iron infusions. Thank you for this consultation, we will sign off at this time. Dr. Niko Garcia I agree with the dictator's note, documented as a scribe by Cindy Blanco.
--- NOTE | 2023-02-20 12:58 | P.PN ---
Subjective patient is seen for follow-up for end-stage renal disease. Complaining of urinary frequency No active bleeding noted No issues with Peritoneal dialysis Objective - Vital Signs Vital signs: Vital Signs Temp 97.4 F L 02/20/23 07:15 Pulse 75 02/20/23 07:15 Resp 15 02/20/23 07:15 BP 107/61 02/20/23 07:15 Pulse Ox 98 02/20/23 07:15 FiO2 Intake & Output 02/19/23 02/20/23 02/20/23 18:59 06:59 18:59 Intake Total 600 Balance 600 Intake: Oral 600 Other: Voiding Method Toilet Toilet Toilet Urinal Urinal CAPD CAPD # Voids 3 2 # Bowel Movements 1 - Exam Patient is awake, comfortable, no acute distress Examination of the heart S1 and S2 Examination of the lungs bilateral breath sounds are heard Abdomen is soft nontender Examination of lower extremity shows no significant edema ENSEMBLE MEMBER exam grossly intact - Labs CBC & Chem 7: 02/20/23 06:19 02/20/23 06:19 Labs: Abnormal Lab Results - Last 24 Hours (Table) 02/19/23 02/19/23 02/19/23 Range/Units 11:23 11:23 17:13 RBC (4.30-5.90) m/uL Hgb (13.0-17.5) gm/dL Hct (39.0-53.0) % MCV (80.0-100.0) fL MCHC (31.0-37.0) g/dL RDW (11.5-15.5) % Macrocytosis Sodium (137-145) mmol/L Chloride (98-107) mmol/L Carbon Dioxide (22-30) mmol/L BUN (9-20) mg/dL Creatinine (0.66-1.25) mg/dL Glucose (74-99) mg/dL POC Glucose (mg/dL) 183 H (70-110) mg/dL Calcium (8.4-10.2) mg/dL Iron 25 L (65-175) UG/DL % Saturation 10.25 L (15.00-50.00) Transferrin 174.0 L (204.0-354.0) mg/dL Ferritin 459.0 H (22.0-322.0) ng/mL Vitamin B12 2273.0 H (200.0-944.0) pg/mL Folate 31.40 H (4.40-31.00) ng/mL 02/19/23 02/20/23 02/20/23 Range/Units 20:23 06:19 06:19 RBC 2.46 L (4.30-5.90) m/uL Hgb 7.4 L (13.0-17.5) gm/dL Hct 24.8 L (39.0-53.0) % MCV 101.1 H (80.0-100.0) fL MCHC 29.7 L (31.0-37.0) g/dL RDW 23.5 H (11.5-15.5) % Macrocytosis Marked A Sodium 131 L (137-145) mmol/L Chloride 96 L (98-107) mmol/L Carbon Dioxide 20 L (22-30) mmol/L BUN 63 H (9-20) mg/dL Creatinine 8.43 H* (0.66-1.25) mg/dL Glucose 207 H (74-99) mg/dL POC Glucose (mg/dL) 154 H (70-110) mg/dL Calcium 7.5 L (8.4-10.2) mg/dL Iron (65-175) UG/DL % Saturation (15.00-50.00) Transferrin (204.0-354.0) mg/dL Ferritin (22.0-322.0) ng/mL Vitamin B12 (200.0-944.0) pg/mL Folate (4.40-31.00) ng/mL 02/20/23 02/20/23 Range/Units 07:18 12:39 RBC (4.30-5.90) m/uL Hgb (13.0-17.5) gm/dL Hct (39.0-53.0) % MCV (80.0-100.0) fL MCHC (31.0-37.0) g/dL RDW (11.5-15.5) % Macrocytosis Sodium (137-145) mmol/L Chloride (98-107) mmol/L Carbon Dioxide (22-30) mmol/L BUN (9-20) mg/dL Creatinine (0.66-1.25) mg/dL Glucose (74-99) mg/dL POC Glucose (mg/dL) 271 H 162 H (70-110) mg/dL Calcium (8.4-10.2) mg/dL Iron (65-175) UG/DL % Saturation (15.00-50.00) Transferrin (204.0-354.0) mg/dL Ferritin (22.0-322.0) ng/mL Vitamin B12 (200.0-944.0) pg/mL Folate (4.40-31.00) ng/mL Assessment and Plan Assessment: 1. End-stage renal disease on peritoneal dialysis 2. Anemia with no significant active bleeding noted. Patient is to follow-up with GI as outpatient. Hemoglobin 7.4 g/dL today 3. Coronary artery disease with history of recent stenting of RCA in December 2022 4. Hypotension and syncope 5. CK D mineral bone disorder 6. Dysuria rule out UTI Plan: continue current PD exchanges Check UA
[2023-02-20] MEDS: AMIODARONE 200 MG TAB PO SCH (13:31)
--- NOTE | 2023-02-20 13:55 | P.DS ---
Providers Date of admission: 02/18/23 17:56 Expected date of discharge: 02/20/23 Attending physician: Thuy Villela MD Consults: 02/18/23 17:56 Consult Physician Routine Consulting Provider: Keri Garcia Consult Reason/Comments: stool occult blood positive Do you want consulting provider notified?: Yes 02/18/23 19:03 Consult Physician Routine Consulting Provider: Yulissa Ivory Consult Reason/Comments: peritoneal dialysis Do you want consulting provider notified?: Yes 02/19/23 00:35 Consult Physician Urgent Consulting Provider: Bobby Stone Consult Reason/Comments: Blood loss anemia while on triple therapy for CAD Do you want consulting provider notified?: Yes Primary care physician: Cook Hospital Course: Patient is a 72-year-old male with an extensive PMH including CAD status post multiple stents (on aspirin, Plavix, and Xarelto), history of GI bleeding with blood loss anemia, ESRD on peritoneal dialysis, type II DM, hypertension, and hyperlipidemia who presented to the emergency room after a syncopal episode. The patient also reports that he has been experiencing black stools over the past 2 days. Denied bleeding elsewhere. In the emergency room, CT brain and cervical spine were unremarkable. EKG had revealed sinus rhythm with PVCs at 70 with a left bundle-branch block as reviewed by me. Laboratory evaluation was remarkable for WBC count of 13.4, hemoglobin 7.3, down from previously 8.1 on 01/16. Creatinine was 8.6, PTT 186, sodium 132, chloride 93, and stool occult blood positive. Cardiology was consulted and recommended discontinuing aspirin, continuing Plavix and Xarelto. His Metoprolol was cut down from 25 to 12.5 mg PO BID. Midodrine 5 mg PO TID was added as well. Patient was adamant about wanting to leave against medical advise on 02/19. He declined any further intervention and GI workup. While walking to the bathroom, he started to feel lightheaded and had to be lowered to the floor. He denied any LOC of head trauma. He also had a tremor in his right hand which has resolved now. This morning, patient states that he is feeling well. His magnesium level is 1.6 which will be replaced with magnesium sulfate 4g IV prior to discharge. Orthostats are pending for today. He is advised to come back to the ED for worsening chest pain, shortness of breath, palpitations or dizziness. He is advised to obtain a CBC and BMP within 3 days to be followed up by his PCP. He is advised to follow up with Cardiology and Gastroenterology within 1 week of discharge. Patient verbalized understanding of the plan. Pertinent studies include a head CT, C-spine CT, EKG. General: non toxic, no distress, appears at stated age, normal weight Derm: no unusual rashes/lesions, warm Head: atraumatic, normocephalic, symmetric Eyes: EOMI, no lid lag, anicteric sclera ENT: Nose and ears atraumatic Neck: No cervical lymphadenopathy, trachea midline, supple Cardiovascular: S1S2 reg, no murmur, no edema Lungs: CTA bilateral, no rhonchi, no rales, no accessory muscle use Ext: muscle strength 5 out of 5 in all 4 extremities grossly, no gross muscle atrophy, no contractures, Neuro: no gross focal neuro deficits Psych: Alert, oriented, appropriate affect Discharge diagnosis: Syncope, suspect secondary to blood loss anemia due to GI bleeding ESRD on dialysis Elevated PTT, suspect due to NOAC use CAD, hypertension, hyperlipidemia, type II DM This complex discharge took 35 minutes to complete. Patient Condition at Discharge: Stable Plan - Discharge Summary Discharge Rx Participant: No New Discharge Prescriptions: New Metoprolol Tartrate [Lopressor] 12.5 mg PO BID #60 tab Midodrine [ProAmatine] 5 mg PO AC-TID #90 tab Rivaroxaban [Xarelto] 2.5 mg PO BID tab Continue Ergocalciferol (Vitamin D2) [Vitamin D2] 1,250 mcg PO Q14D DULoxetine HCL [Cymbalta] 20 mg PO HS Melatonin 5 mg PO HS Sennosides-Docusate Sodium [Senokot-S] 2 tab PO TID Nitroglycerin Sl Tabs [Nitrostat] 0.4 mg SL Q5M PRN PRN Reason: Chest Pain Gabapentin [Neurontin] 100 mg PO TID oxyBUTYnin chloride [Ditropan] 5 mg PO HS Cyanocobalamin [Vitamin B-12] 1,000 mcg PO DAILY Potassium Chloride 20 meq PO DAILY Clopidogrel [Plavix] 75 mg PO DAILY #30 tablet Amiodarone [Cordarone] 200 mg PO DAILY@1400 Calcium Acetate [PhosLo] 667 mg PO 5XD PRN PRN Reason: with meals and snacks Isosorbide Mononitrate ER [Imdur] 30 mg PO DAILY Ranolazine [Ranexa] 500 mg PO BID rOPINIRole HCL [Requip] 0.5 mg PO TID Ondansetron [Zofran] 4 mg PO DAILY PRN PRN Reason: Nausea And Vomiting Omeprazole 80 mg PO BID Nephro-Deepa 1 tab PO DAILY Lactulose [Constulose] 10 gm PO DAILY PRN PRN Reason: Constipation Insulin Glargine,Hum.rec.anlog [Lantus Solostar Pen] 20 units SQ HS Sodium Bicarbonate Tab 650 mg PO DAILY Acetaminophen Tab [Tylenol] 650 mg PO Q6HR PRN tab PRN Reason: Fever and/ or Mild Pain Atorvastatin Calcium [Lipitor] 80 mg PO DAILY #30 tablet Furosemide [Lasix] 80 mg PO DAILY Insulin Aspart [NovoLOG Flexpen] 8 units SQ TID-W/MEALS Discontinued Aspirin EC [Ecotrin Low Dose] 81 mg PO HS Metoprolol Tartrate [Lopressor] 25 mg PO BID Discharge Medication List Ergocalciferol (Vitamin D2) [Vitamin D2] 1,250 mcg PO Q14D 07/18/17 [History] DULoxetine HCL [Cymbalta] 20 mg PO HS 10/27/20 [History] Melatonin 5 mg PO HS 12/19/20 [History] Sennosides-Docusate Sodium [Senokot-S] 2 tab PO TID 12/31/20 [History] Gabapentin [Neurontin] 100 mg PO TID 01/23/21 [History] Nitroglycerin Sl Tabs [Nitrostat] 0.4 mg SL Q5M PRN 01/23/21 [History] rOPINIRole HCL [Requip] 0.5 mg PO TID 01/23/21 [History] Ondansetron [Zofran] 4 mg PO DAILY PRN 05/08/21 [History] oxyBUTYnin chloride [Ditropan] 5 mg PO HS 06/28/21 [History] Lactulose [Constulose] 10 gm PO DAILY PRN 11/12/21 [History] Nephro-Deepa 1 tab PO DAILY 11/12/21 [History] Omeprazole 80 mg PO BID 11/12/21 [History] Cyanocobalamin [Vitamin B-12] 1,000 mcg PO DAILY 12/14/21 [History] Potassium Chloride 20 meq PO DAILY 11/29/22 [History] Insulin Glargine,Hum.rec.anlog [Lantus Solostar Pen] 20 units SQ HS 01/12/23 [History] Sodium Bicarbonate Tab 650 mg PO DAILY 01/12/23 [History] Acetaminophen Tab [Tylenol] 650 mg PO Q6HR PRN tab 01/16/23 [Rx] Atorvastatin Calcium [Lipitor] 80 mg PO DAILY #30 tablet 01/16/23 [Rx] Clopidogrel [Plavix] 75 mg PO DAILY #30 tablet 01/16/23 [Rx] Amiodarone [Cordarone] 200 mg PO DAILY@1400 02/18/23 [History] Calcium Acetate [PhosLo] 667 mg PO 5XD PRN 02/18/23 [History] Furosemide [Lasix] 80 mg PO DAILY 02/18/23 [History] Insulin Aspart [NovoLOG Flexpen] 8 units SQ TID-W/MEALS 02/18/23 [History] Isosorbide Mononitrate ER [Imdur] 30 mg PO DAILY 02/18/23 [History] Ranolazine [Ranexa] 500 mg PO BID 02/18/23 [History] Metoprolol Tartrate [Lopressor] 12.5 mg PO BID #60 tab 02/19/23 [Rx] Midodrine [ProAmatine] 5 mg PO AC-TID #90 tab 02/19/23 [Rx] Rivaroxaban [Xarelto] 2.5 mg PO BID tab 02/19/23 [Rx] Follow up Appointment(s)/Referral(s): Burak Dowell DO [STAFF PHYSICIAN] - 1 Week Keri Garcia MD [STAFF PHYSICIAN] - 1 Week [facility]inic [Primary Care Provider] - 1-2 days Ambulatory/Diagnostic Orders: Basic Metabolic Panel [LAB.AMB] Location: None Selected Complete Blood Count w/diff [LAB.AMB] Location: None Selected Activity/Diet/Wound Care/Special Instructions: Diet: Renal Follow up with your PCP within 1-2 days of discharge. Follow up with Cardiology and Gastroenterology within 1 week of discharge. Stop aspirin. Continue Plavix and Xarelto. Repeat CBC and BMP in 3 days. Follow up the results with your PCP. Take all medications as advised. Come back to the ED for worsening chest pain, shortness of breath, palpitations or dizziness. Discharge Disposition: HOME SELF-CARE
[2023-02-20 14:17] VITALS: BP 105/52; PULSE 85; TEMP 97.7
== END 2023-02-20 17:23 | disposition home or self-care (01) ==
LOC: EC 13:36 → 6NMEDSUR 17:56 → 5NMEDONC 21:14
PROVIDERS: ADMIT Internal Medicine; ATTEND Internal Medicine
DX: D50.0 Iron deficiency anemia secondary to blood loss (chronic) (principal); R19.5 Other fecal abnormalities; I25.10 Atherosclerotic heart disease of native coronary artery without angina pectoris; Z95.5 Presence of coronary angioplasty implant and graft; E78.5 Hyperlipidemia, unspecified; R55 Syncope and collapse; W19.XXXA Unspecified fall, initial encounter; I49.3 Ventricular premature depolarization; I12.0 Hypertensive chronic kidney disease with stage 5 chronic kidney disease or end stage renal disease; E11.22 Type 2 diabetes mellitus with diabetic chronic kidney disease; N18.6 End stage renal disease; Q27.30 Arteriovenous malformation, site unspecified; Z99.2 Dependence on renal dialysis; E11.51 Type 2 diabetes mellitus with diabetic peripheral angiopathy without gangrene; Z79.01 Long term (current) use of anticoagulants; Z79.02 Long term (current) use of antithrombotics/antiplatelets; Z79.82 Long term (current) use of aspirin; Z79.899 Other long term (current) drug therapy
CPT/HCPCS: 96366; 96367; 96372; 96375 ×2; 96365; 99285; 36415; 93005; 97162; 80048 ×2; 82607; 82728; 82746; 83540; 83550; 83735; 85025; 85027 ×2; 85610; 85045; 85730; 82272; 72125; 70450; G0378 ×4; A4722 ×2; J2916; J3475; J1642; C9113; J0881

== ENCOUNTER 2023-02-23 13:09 | Emergency (ER) | payer OTHER, MEDICARE ==
--- NOTE | 2023-02-23 13:44 | ED ---
Recheck HPI - General Chief Complaint: Recheck/Abnormal Lab/Rx Stated Complaint: low hemaglobin, sent by PCP Time Seen by Provider: 02/23/23 13:19 Source: patient Mode of arrival: wheelchair Limitations: no limitations - History of Present Illness Initial Comments: patient is [id number] male presenting to the emergency room at the direction [facility] for symptomatic anemia. He is complaining of generalized weakness, occasional chest pain and occasional shortness of breath that has progressively worsened over the last week. he reports that his shortness of breath and chest pain are both worse with exertion. He was recently hospitalized for severe weakness and a syncopal event and was discharged on 02/20/2023 with a hemoglobin of 7.3. [facility] his hemoglobin yesterday was 6.9 and to present to the emergency room. He has a history of chronic anemia and is on Mircera along with iron infusion therapy. He follows with Dr. Hightower outpatient and there are plans for future colonoscopies. He denies any black or tarry stool s. He denies any episodes of syncope since his discharge from the hospital. He denies any other complaints or concerns at this time including any chest pain at rest, shortness of breath at rest, abdominal pain, nausea, vomiting, headache, dizziness, fevers or chills. He has a significant past medical history which includes CAD, GA, hypertension, hyperlipidemia, diabetes, end-stage renal disease on peritoneal dialysis, COPD, GERD, peripheral vascular disease, restless leg syndrome and insomnia along with his chronic anemia as stated above. - Related Data Home Medications Medication Instructions Recorded Confirmed Ergocalciferol (Vitamin D2) 1,250 mcg PO Q14D 07/18/17 02/18/23 [Vitamin D2] DULoxetine HCL [Cymbalta] 20 mg PO HS 10/27/20 02/18/23 Melatonin 5 mg PO HS 12/19/20 02/18/23 Sennosides-Docusate Sodium 2 tab PO TID 12/31/20 02/18/23 [Senokot-S] Gabapentin [Neurontin] 100 mg PO TID 01/23/21 02/18/23 Nitroglycerin Sl Tabs [Nitrostat] 0.4 mg SL Q5M PRN 01/23/21 02/18/23 rOPINIRole HCL [Requip] 0.5 mg PO TID 01/23/21 02/18/23 Ondansetron [Zofran] 4 mg PO DAILY PRN 05/08/21 02/18/23 oxyBUTYnin chloride [Ditropan] 5 mg PO HS 06/28/21 02/18/23 Lactulose [Constulose] 10 gm PO DAILY PRN 11/12/21 02/18/23 Nephro-Deepa 1 tab PO DAILY 11/12/21 02/18/23 Omeprazole 80 mg PO BID 11/12/21 02/18/23 Cyanocobalamin [Vitamin B-12] 1,000 mcg PO DAILY 12/14/21 02/18/23 Potassium Chloride 20 meq PO DAILY 11/29/22 02/18/23 Insulin Glargine,Hum.rec.anlog 20 units SQ HS 01/12/23 02/18/23 [Lantus Solostar Pen] Sodium Bicarbonate Tab 650 mg PO DAILY 01/12/23 02/18/23 Amiodarone [Cordarone] 200 mg PO DAILY@1400 02/18/23 02/18/23 Calcium Acetate [PhosLo] 667 mg PO 5XD PRN 02/18/23 02/18/23 Furosemide [Lasix] 80 mg PO DAILY 02/18/23 02/18/23 Insulin Aspart [NovoLOG Flexpen] 8 units SQ TID-W/MEALS 02/18/23 02/18/23 Isosorbide Mononitrate ER [Imdur] 30 mg PO DAILY 02/18/23 02/18/23 Ranolazine [Ranexa] 500 mg PO BID 02/18/23 02/18/23 Metoprolol Tartrate [Lopressor] 12.5 mg PO BID 02/23/23 02/23/23 Previous Rx's Medication Instructions Recorded Acetaminophen Tab [Tylenol] 650 mg PO Q6HR PRN tab 01/16/23 Atorvastatin Calcium [Lipitor] 80 mg PO DAILY #30 tablet 01/16/23 Clopidogrel [Plavix] 75 mg PO DAILY #30 tablet 01/16/23 Midodrine [ProAmatine] 5 mg PO AC-TID #90 tab 02/19/23 Rivaroxaban [Xarelto] 2.5 mg PO BID tab 02/19/23 Allergies Allergy/AdvReac Type Severity Reaction Status Date / Time Iodinated Contrast Media AdvReac CAN'T Verified 02/23/23 15:37 TAKE, RENAL DISEASE Iodine and Iodide Containing AdvReac CAN'T Verified 02/23/23 15:37 Produc TAKE, RENAL DISEASE Review of Systems ROS Statement: Those systems with pertinent positive or pertinent negative responses have been documented in the HPI. ROS Other: All systems not noted in ROS Statement are negative. Past Medical History Past Medical History: Coronary Artery Disease (CAD), Chest Pain / Angina, Heart Failure, COPD, Diabetes Mellitus, Dialysis, GERD/Reflux, GI Bleed, Hyperlipidemia, Hypertension, Myocardial Infarction (GA), Pneumonia, Renal Disease, Vascular Disorder Additional Past Medical History / Comment(s): Lower GI bleeds/suspect micro bleeds in intestine, occasional abdominal bloating, IDDM type II, neuropathy bilateral feet, ESRD with peritoneal dialysis ((cycler at night for 5 hours), past hemodialysis/spouse states she was told L upper arm fistula is plugged again, chronic anemia/transfusion of blood/iron, past partial SBO, benign colon polyps, chronic low back pain with bilateral sciatica, PVD, RLS, vertigo, insomnia, 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 Last Myocardial Infarction Date:: 03/2020 History of Any Multi-Drug Resistant Organisms: None Reported Past Surgical History: Cholecystectomy, Heart Catheterization With Stent Additional Past Surgical History / Comment(s): 03/25/20 R sublclavian mediport, R carotid stent done in [place], EGD/colonoscopy, endoscopic capsule, ORIF left wrist, aortagram, bilateral leg revascularizations/stents, left upper arm fistula and on 12/15/21 had thrombectomy balloon angioplasty of L arm fistula, peritoneal dialysis catheter removal and insertion (11/23/21). Past Anesthesia/Blood Transfusion Reactions: No Reported Reaction Additional Past Anesthesia/Blood Transfusion Reaction / Comment(s): Pt has had multiple blood transfusions without reaction. Date of Last Stent Placement:: 03/2021 Past Psychological History: No Psychological Hx Reported, PTSD Smoking Status: Current every day smoker, Former smoker - Past Family History Father History Unknown: Yes Mother Family Medical History: Cancer Additional Family Medical History / Comment(s): Mother from metastatic cancer pelvic origin. General Exam Limitations: no limitations General appearance: alert, in no apparent distress Head exam: Present: atraumatic, normocephalic, normal inspection Eye exam: Present: normal appearance, PERRL, EOMI. Absent: scleral icterus, conjunctival injection, periorbital swelling ENT exam: Present: normal exam, mucous membranes moist Neck exam: Present: normal inspection, full ROM Respiratory exam: Present: decreased breath sounds. Absent: respiratory distress, wheezes, rales, rhonchi, stridor, accessory muscle use Cardiovascular Exam: Present: regular rate, normal rhythm, systolic murmur. Absent: diastolic murmur, rubs, gallop, clicks GI/Abdominal exam: Present: soft, distended (mildly), other (PD catheter intact). Absent: tenderness, guarding, rebound, rigid Extremities exam: Present: normal inspection, pedal edema (bilateral +1) Back exam: Present: normal inspection Neurological exam: Present: alert, oriented X3, CN II-XII intact Psychiatric exam: Present: flat affect Skin exam: Present: warm, dry, intact, pallor. Absent: rash Course Vital Signs 02/23/23 13:12 Temperature 97.7 F Pulse Rate 72 Respiratory 18 Rate Blood Pressure 106/54 O2 Sat by Pulse 94 L Oximetry Medical Decision Making - Medical Decision Making Was pt. sent in by a medical professional or institution (, PA, OUTGOING INSPECTOR, urgent care, hospital, or intermediate...) When possible be specific @ -Yes, sent in by [place] [facility] for low hemoglobin. Did you speak to anyone other than the patient for history (EMS, parent, family, police, friend...)? What history was obtained from this source @ -No Did you review nursing and triage notes (agree or disagree)? Why? @ -I reviewed and agree with nursing and triage notes Were old charts reviewed (outside hosp., previous admission, EMS record, old EKG, old radiological studies, urgent care reports/EKG's, intermediate records)? Report findings @ -Yes, I reviewed computed tomography scan of the brain and EKG completed 02/18/2023 along with cardiology consult and nephrology consult from recent hospitalization and discharge summary from 02/20/2023 Differential Diagnosis (chest pain, altered mental status, abdominal pain women, abdominal pain men, vaginal bleeding, weakness, fever, dyspnea, syncope, headache, dizziness, GI bleed, back pain, seizure, CVA, palpatations, mental health, musculoskeletal)? @ -Differential Weakness: Hypoglycemia, shock, sepsis, hyponatremia, anemia, infection, GA, ETOH, adverse medicine reaction, overdose, stroke, this is not meant to be an all-inclusive list. EKG interpreted by me (3pts min.). @ -Sinus rhythm with left bundle branch block, ventricular rate 64 bpm, NH interval 163 ms, QRS duration 190 ms, QT/QTC 521/530 ms PRT axes 46, 1, 184 X-rays interpreted by me (1pt min.). @ -Chest x-ray 2 view: cardiomegaly, right pleural effusion and atelectasis present on previous chest x-ray no acute cardiopulmonary process. CT interpreted by me (1pt min.). @ -None done U/S interpreted by me (1pt. min.). @ -None done What testing was considered but not performed or refused? (CT, X-rays, U/S, labs)? Why? @ -None What meds were considered but not given or refused? Why? @ -None Did you discuss the management of the patient with other professionals (professionals i.e. , PA, OUTGOING INSPECTOR, lab, RT, psych nurse, manager social services, wildlife and game protector, teacher, employee service officer, field nurse case manager)? Give summary @ -Yes, Spoke with Dr. Reveles on for sound physicians regarding [facility] and workup findings. He is accepting of admission and advise addition of cardiac consult in addition to commissioner public works already consulted and agrees to transfusion of 1 unit of packed red blood cells at this time Was smoking cessation discussed for >3mins.? @ -No Was critical care preformed (if so, how long)? @ -No Were there social determinants of health that impacted care today? How? (Homelessness, low income, unemployed, alcoholism, drug addiction, transportation, low edu. Level, literacy, decrease access to med. care, custodial, rehab)? @ -No Was there de-escalation of care discussed even if they declined (Discuss DNR or withdrawal of care, Hospice)? DNR status @ -No What co-morbidities impacted this encounter? (DM, HTN, Smoking, COPD, CAD, Cancer, CVA, ARF, Chemo, Hep., AIDS, mental health diagnosis, sleep apnea, morbid obesity)? @ -None Was patient admitted / discharged? Hospital course, mention meds given and route, prescriptions, significant lab abnormalities, going to OR and other pertinent info. @ -72-year-old male presenting to the emergency room at the [facility] for symptomatic anemia. He is complaining of generalized weakness occasional chest pain and occasional shortness of breath that has progressively worsened over the last week. He was recently hospitalized for severe weakness and a syncopal event and was discharged on 02/20/2023 with a hemoglobin of 7.3. [facility] his hemoglobin yesterday was 6.9 and to present to the emergency room. He has a history of chronic anemia and is on Micera along with iron infusion therapy. Will start workup for symptomatic anemia with EKG, chest x-ray, CBC, type and cross, CMP, magnesium, troponin and coags. EKG demonstrates sinus rhythm with left bundle branch block, unchanged. Chest x- ray demonstrates cardiomegaly with chronic right pleural effusion and atelectasis no acute cardiopulmonary process. Laboratory studies reveal a low hemoglobin at 6.6, hematocrit 21.7, slightly elevated WBC 11.7 with elevated neutrophils 10.3. Macrocytosis and hypochromasia present. Creatinine stable for ESRD status with a creatinine of 8.33 and BUN of 73. Potassium and magnesium normal. Troponin negative. Findings discussed with patient and advise recommendation of admission for symptomatic anemia. Patient is agreeable to this plan. Spoke with Dr. Reveles on for sound physicians regarding patient's presentation at the direction of the [place] [facility] and workup findings. He is accepting of admission and advise addition of cardiac consult in addition to commissioner public works already consulted and agrees to transfusion of 1 unit of packed red blood cells at this time. Will admit patient in stable condition to observation unit with telemetry under sound physicians for further evaluation and treatment of symptomatic anemia. Undiagnosed new problem with uncertain prognosis? @ -No Drug Therapy requiring intensive monitoring for toxicity (Heparin, Nitro, Insulin, Cardizem)? @ -No Were any procedures done? @ -No Diagnosis/symptom? @ -Symptomatic anemia Acute, or Chronic, or Acute on Chronic? @ -Acute on chronic Uncomplicated (without systemic symptoms) or Complicated (systemic symptoms)? @ -Complicated Side effects of treatment? @ -No Exacerbation, Progression, or Severe Exacerbation? @ -No Poses a threat to life or bodily function? How? (Chest pain, USA, GA, pneumonia, PE, COPD, DKA, ARF, appy, cholecystitis, CVA, Diverticulitis, Homicidal, Suicidal, threat to staff... and all critical care pts) @ -Yes, at risk for further decrease of hemoglobin and complications of s ymptomatic anemia including but not limited to cardiac arrhythmia and cardiac arrest. Case discussed with Dr. Post. - Lab Data Result diagrams: 02/23/23 13:44 02/23/23 13:44 Lab Results 02/23/23 02/23/23 02/23/23 Range/Units 13:44 13:44 13:44 WBC 11.7 H (3.8-10.6) k/uL RBC 2.20 L (4.30-5.90) m/uL Hgb 6.6 L* (13.0-17.5) gm/dL Hct 21.7 L (39.0-53.0) % MCV 98.6 (80.0-100.0) fL MCH 29.8 (25.0-35.0) pg MCHC 30.2 L (31.0-37.0) g/dL RDW 23.3 H (11.5-15.5) % Plt Count 370 (150-450) k/uL MPV 8.7 Neutrophils % 88 % Lymphocytes % 5 % Monocytes % 5 % Eosinophils % 1 % Basophils % 0 % Neutrophils # 10.3 H (1.3-7.7) k/uL Lymphocytes # 0.5 L (1.0-4.8) k/uL Monocytes # 0.6 (0-1.0) k/uL Eosinophils # 0.1 (0-0.7) k/uL Basophils # 0.0 (0-0.2) k/uL Hypochromasia Marked Poikilocytosis Slight Anisocytosis Moderate Macrocytosis Moderate Sodium 131 L (137-145) mmol/L Potassium 4.5 (3.5-5.1) mmol/L Chloride 93 L (98-107) mmol/L Carbon Dioxide 20 L (22-30) mmol/L Anion Gap 18 mmol/L BUN 73 H (9-20) mg/dL Creatinine 8.33 H* (0.66-1.25) mg/dL Est GFR (CKD-EPI)AfAm 7 (>60 ml/min/1.73 sqM) Est GFR (CKD-EPI)NonAf 6 (>60 ml/min/1.73 sqM) Glucose 176 H (74-99) mg/dL Calcium 7.8 L (8.4-10.2) mg/dL Magnesium 1.9 (1.6-2.3) mg/dL Total Bilirubin 0.4 (0.2-1.3) mg/dL AST 28 (17-59) U/L ALT 25 (4-49) U/L Alkaline Phosphatase 144 H (38-126) U/L Troponin I 0.014 (0.000-0.034) ng/mL Total Protein 5.4 L (6.3-8.2) g/dL Albumin 2.6 L (3.5-5.0) g/dL Blood Type Blood Type Recheck Bld Type Recheck Status Antibody Screen Crossmatch Spec Expiration Date 02/23/23 Range/Units 14:05 WBC (3.8-10.6) k/uL RBC (4.30-5.90) m/uL Hgb (13.0-17.5) gm/dL Hct (39.0-53.0) % MCV (80.0-100.0) fL MCH (25.0-35.0) pg MCHC (31.0-37.0) g/dL RDW (11.5-15.5) % Plt Count (150-450) k/uL MPV Neutrophils % % Lymphocytes % % Monocytes % % Eosinophils % % Basophils % % Neutrophils # (1.3-7.7) k/uL Lymphocytes # (1.0-4.8) k/uL Monocytes # (0-1.0) k/uL Eosinophils # (0-0.7) k/uL Basophils # (0-0.2) k/uL Hypochromasia Poikilocytosis Anisocytosis Macrocytosis Sodium (137-145) mmol/L Potassium (3.5-5.1) mmol/L Chloride (98-107) mmol/L Carbon Dioxide (22-30) mmol/L Anion Gap mmol/L BUN (9-20) mg/dL Creatinine (0.66-1.25) mg/dL Est GFR (CKD-EPI)AfAm (>60 ml/min/1.73 sqM) Est GFR (CKD-EPI)NonAf (>60 ml/min/1.73 sqM) Glucose (74-99) mg/dL Calcium (8.4-10.2) mg/dL Magnesium (1.6-2.3) mg/dL Total Bilirubin (0.2-1.3) mg/dL AST (17-59) U/L ALT (4-49) U/L Alkaline Phosphatase (38-126) U/L Troponin I (0.000-0.034) ng/mL Total Protein (6.3-8.2) g/dL Albumin (3.5-5.0) g/dL Blood Type B Positive Blood Type Recheck B Pos Bld Type Recheck Status No Antibody Screen NEGATIVE Crossmatch See Detail Spec Expiration Date 02/26/2023 - 7380 - Radiology Data Radiology results: report reviewed, image reviewed Disposition Clinical Impression: Symptomatic anemia Disposition: ADMITTED IP TO THIS [facility] Condition: Stable Is patient prescribed a controlled substance at d/c from ED?: No Referrals: [facility]inic [Primary Care Provider] - 1-2 days Time of Disposition: 14:55
--- NOTE | 2023-02-23 14:25 | XR ---
EXAMINATION TYPE: XR chest 2V DATE OF EXAM: 02/23/2023 2:19 PM COMPARISON: Chest radiographs from 01/25/2023 TECHNIQUE: XR chest 2V Frontal and lateral views of the chest. CLINICAL INDICATION:Male, 72 years old with history of Chest Pain; FINDINGS: Patient is rotated which limits evaluation. Lungs/Pleura: Blunting of the right costophrenic angle with associated atelectasis. No pneumothorax o r focal consolidation. Pulmonary vascularity: Unremarkable. Heart/mediastinum: Cardiomediastinal silhouette is enlarged and stable. Musculoskeletal: No acute osseous pathology. Other findings: None Lines/Tubes: [id number] projecting over the right hemithorax with distal tip at the right atrium IMPRESSION: Cardiomegaly with persistent small right pleural effusion with associated atelectasis.
[2023-02-23 14:39] LABS: Anisocytosis Moderate; Basophils % (A) 0 %; Eosinophils # (A) 0.1 k/uL (0-0.7); Eosinophils % (A) 1 %; HCT 21.7 % (39.0-53.0); Hypochromasia Marked; Lymphocytes # (A) 0.5 k/uL (1.0-4.8); Lymphocytes % (A) 5 %; MCH 29.8 pg (25.0-35.0); MCHC 30.2 g/dL (31.0-37.0); MCV 98.6 fL (80.0-100.0); Macrocytosis Moderate; Mean Platelet Volume 8.7; Monocytes # (A) 0.6 k/uL (0-1.0); Monocytes % (A) 5 %; Neutrophils # (A) 10.3 k/uL (1.3-7.7); Neutrophils % (A) 88 %; Platelet Count 370 k/uL (150-450); Poikilocytosis Slight; RDW 23.3 % (11.5-15.5); WBC 11.7 k/uL (3.8-10.6)
[2023-02-23 14:40] LABS: ALT 25 U/L (4-49); AST 28 U/L (17-59); African American GFR (CKD) 7 (>60 ml/min/1.73 sqM); Albumin 2.6 g/dL (3.5-5.0); Alkaline Phosphatase 144 U/L (38-126); Anion Gap 18 mmol/L; Blood Urea Nitrogen 73 mg/dL (9-20); Calcium 7.8 mg/dL (8.4-10.2); Carbon Dioxide 20 mmol/L (22-30); Chloride 93 mmol/L (98-107); Glucose 176 mg/dL (74-99); Magnesium 1.9 mg/dL (1.6-2.3); Non-African American GFR(CKD) 6 (>60 ml/min/1.73 sqM); Potassium 4.5 mmol/L (3.5-5.1); Sodium 131 mmol/L (137-145); Total Bilirubin 0.4 mg/dL (0.2-1.3); Total Protein 5.4 g/dL (6.3-8.2)
[2023-02-23 14:44] LABS: HGB 6.6 gm/dL (13.0-17.5)
[2023-02-23 14:50] LABS: INR 1.1 (<1.2); Prothrombin Time 11.3 sec (9.0-12.0)
[2023-02-23] MEDS ORDERED: NALOXONE 0.4 MG/ML 1 ML VIAL IV PRN (14:54)
[2023-02-23 15:24] LABS: Partial Thromboplastin Time 63.8 sec (22.0-30.0)
[2023-02-23] MEDS ORDERED: LACTULOSE 20 GM/30 ML CUP PO PRN (16:24)
[2023-02-23] MEDS ORDERED: CALCIUM ACETATE 667 MG TAB PO PRN (16:24)
[2023-02-23] MEDS ORDERED: DEXTROSE 50% SYRINGE 50 ML IVP PRN ×2 (16:50)
--- NOTE | 2023-02-23 16:54 | P.HPIM ---
History of Present Illness H&P Date: 02/23/23 Patient is a 72-year-old male with an extensive PMH including CAD status post multiple stents (on aspirin, Plavix, and Xarelto), history of GI bleeding with blood loss anemia on IV infusions in the outpatient setting, ESRD on peritoneal dialysis, type II DM, hypertension, COPD, PVD, RLS and hyperlipidemia who presented to the emergency room for abnormal lab work done at the [place] (Hg of 6.9). Of note, he was recently admitted from 02/18-02/20 for symptomatic anemia. He was transfused 1 PRBC and Cardiology was consulted and recommended discontinuing aspirin, continuing Plavix and Xarelto. His Metoprolol was cut down from 25 to 12.5 mg PO BID. Midodrine 5 mg PO TID was added as well. Patient was adamant about wanting to leave and declined any further intervention and GI workup. He complains of generalized weaness, exertional shortness of breath and chest pain. He denies any BRBPR and melena. In the ED, his vital signs are stable. CBC showed WBC count of 11.7, hemoglobin of 6.6 with MCV of 98.6. Coagulation panel showed a PTT of 63.8. CMP showed sodium 131, chloride of 93, bicarb of 20, BUN of 73, creatinine of 8.33, glucose of 176, calcium is 7.8, alkaline phosphatase 144, albumin at 2.6. Troponin was 0.014 with EKG showing normal sinus rhythm with ventricular rate of 64 along with LBBB. CXR showed cardiomegaly with persistent small right pleural effusion. Pertinent positives and negatives as discussed in HPI, a complete review of systems was performed and all other systems are negative. General: non toxic, no distress, appears at stated age Derm: warm, dry Head: atraumatic, normocephalic, symmetric Eyes: EOMI, no lid lag, pale conjunctiva Mouth: no lip lesion, mucus membranes moist Cardiovascular: S1S2 reg, no murmur Lungs: CTA bilateral, no rhonchi, no rales , no accessory muscle use Abdominal: soft, nontender to palpation, no guarding, no appreciable organomegaly Ext: no gross muscle atrophy, no edema, no contractures Neuro: no focal neuro deficits Psych: Alert, oriented, appropriate affect Symptomatic anemia likely secondary to GI bleed Exertional chest pain and shortness of breath likely related to above Hyponatremia Hypochloremic metabolic acidosis ESRD on peritoneal dialysis Diabetes mellitus on insulin Chronic conditions: CAD status post multiple stents (on aspirin, Plavix, and Xarelto), hypertension, COPD, PVD, RLS and hyperlipidemia Based on my assessment of this patient, this patient meets a high complexity level of care. Patient has a history of chronic anemia secondary to GI bleed with severe exacerbation or progression of disease which poses a threat to life or bodily function. His hemoglobin today 6.6. He will be transfused 1 unit PRBC. Hold Xarelto and Plavix. He will be placed on Telemetry monitoring. Cardiology will be consulted for exertional chest pain and SOB. Troponins will be trended. Nephrology consulted to resume peritoneal dialysis. Low-dose insulin sliding scale along with Accu-Cheks before meals and at bedtime and hypoglycemic precautions. SCDs for DVT prophylaxis. Full code. I have reviewed the following business continuity consultant notes: I have reviewed the results of the following tests: CBC, CMP, coagulation panel, troponin, chest x-ray. I have ordered the following tests: Repeat CBC and BMP tomorrow morning. I have discussed the care of this patient with the following independent historian: I have independently interpreted the following test below: EKG as above. I have discussed the management of this patient with the following physician: Case was discussed extensively with the ED physician. Past Medical History Past Medical History: Coronary Artery Disease (CAD), Chest Pain / Angina, Heart Failure, COPD, Diabetes Mellitus, Dialysis, GERD/Reflux, GI Bleed, H yperlipidemia, Hypertension, Myocardial Infarction (CA), Pneumonia, Renal Disease, Vascular Disorder Additional Past Medical History / Comment(s): Lower GI bleeds/suspect micro bleeds in intestine, occasional abdominal bloating, IDDM type II, neuropathy bilateral feet, ESRD with peritoneal dialysis ((cycler at night for 5 hours), past hemodialysis/spouse states she was told L upper arm fistula is plugged again, chronic anemia/transfusion of blood/iron, past partial SBO, benign colon polyps, chronic low back pain with bilateral sciatica, PVD, RLS, vertigo, insomnia, 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 Last Myocardial Infarction Date:: 03/2020 History of Any Multi-Drug Resistant Organisms: None Reported Past Surgical History: Cholecystectomy, Heart Catheterization With Stent Additional Past Surgical History / Comment(s): 03/25/20 R sublclavian mediport, R carotid stent done in [place], EGD/colonoscopy, endoscopic capsule, ORIF left wrist, aortagram, bilateral leg revascularizations/stents, left upper arm fistula and on 12/15/21 had thrombectomy balloon angioplasty of L arm fistula, peritoneal dialysis catheter removal and insertion (11/23/21). Past Anesthesia/Blood Transfusion Reactions: No Reported Reaction Additional Past Anesthesia/Blood Transfusion Reaction / Comment(s): Pt has had multiple blood transfusions without reaction. Date of Last Stent Placement:: 03/2021 Past Psychological History: No Psychological Hx Reported, PTSD Smoking Status: Current every day smoker, Former smoker - Past Family History Father History Unknown: Yes Mother Family Medical History: Cancer Additional Family Medical History / Comment(s): Mother from metastatic cancer pelvic origin. Medications and Allergies Home Medications Medication Instructions Recorded Confirmed Type Ergocalciferol (Vitamin D2) 1,250 mcg PO Q14D 07/18/17 02/23/23 History [Vitamin D2] DULoxetine HCL [Cymbalta] 20 mg PO HS 10/27/20 02/23/23 History Melatonin 5 mg PO HS 12/19/20 02/23/23 History Sennosides-Docusate Sodium 2 tab PO TID 12/31/20 02/23/23 History [Senokot-S] Gabapentin [Neurontin] 100 mg PO TID 01/23/21 02/23/23 History Nitroglycerin Sl Tabs [Nitrostat] 0.4 mg SL Q5M PRN 01/23/21 02/23/23 History rOPINIRole HCL [Requip] 0.5 mg PO TID 01/23/21 02/23/23 History Ondansetron [Zofran] 4 mg PO DAILY PRN 05/08/21 02/23/23 History oxyBUTYnin chloride [Ditropan] 5 mg PO HS 06/28/21 02/23/23 History Lactulose [Constulose] 10 gm PO DAILY PRN 11/12/21 02/23/23 History Nephro-Deepa 1 tab PO DAILY 11/12/21 02/23/23 History Omeprazole 80 mg PO BID 11/12/21 02/23/23 History Cyanocobalamin [Vitamin B-12] 1,000 mcg PO DAILY 12/14/21 02/23/23 History Potassium Chloride 20 meq PO DAILY 11/29/22 02/23/23 History Insulin Glargine,Hum.rec.anlog 20 units SQ HS 01/12/23 02/23/23 History [Lantus Solostar Pen] Sodium Bicarbonate Tab 650 mg PO DAILY 01/12/23 02/23/23 History Acetaminophen Tab [Tylenol] 650 mg PO Q6HR PRN tab 01/16/23 02/23/23 Rx Atorvastatin Calcium [Lipitor] 80 mg PO DAILY #30 tablet 01/16/23 02/23/23 Rx Clopidogrel [Plavix] 75 mg PO DAILY #30 tablet 01/16/23 02/23/23 Rx Amiodarone [Cordarone] 200 mg PO DAILY@1400 02/18/23 02/23/23 History Calcium Acetate [PhosLo] 667 mg PO 5XD PRN 02/18/23 02/23/23 History Furosemide [Lasix] 80 mg PO DAILY 02/18/23 02/23/23 History Insulin Aspart [NovoLOG Flexpen] 8 units SQ TID-W/MEALS 02/18/23 02/23/23 History Isosorbide Mononitrate ER [Imdur] 30 mg PO DAILY 02/18/23 02/23/23 History Ranolazine [Ranexa] 500 mg PO BID 02/18/23 02/23/23 History Midodrine [ProAmatine] 5 mg PO AC-TID #90 tab 02/19/23 02/23/23 Rx Rivaroxaban [Xarelto] 2.5 mg PO BID tab 02/19/23 02/23/23 Rx Metoprolol Tartrate [Lopressor] 12.5 mg PO BID 02/23/23 02/23/23 History Allergies Allergy/AdvReac Type Severity Reaction Status Date / Time Iodinated Contrast Media AdvReac CAN'T Verified 02/23/23 15:37 TAKE, RENAL DISEASE Iodine and Iodide Containing AdvReac CAN'T Verified 02/23/23 15:37 Produc TAKE, RENAL DISEASE Physical Exam Vitals: Vital Signs Temp Pulse Resp BP Pulse Ox 02/23/23 13:12 97.7 F 72 18 106/54 94 L Intake and Output 02/23/23 02/23/2323 06:59 14:59 22:59 Other: Weight 80.739 kg Results CBC & Chem 7: 02/23/23 13:44 02/23/23 13:44 Labs: Abnormal Lab Results - Last 24 Hours (Table) 02/23/23 02/23/23 02/23/23 Range/Units 13:44 13:44 13:44 WBC 11.7 H (3.8-10.6) k/uL RBC 2.20 L (4.30-5.90) m/uL Hgb 6.6 L* (13.0-17.5) gm/dL Hct 21.7 L (39.0-53.0) % MCHC 30.2 L (31.0-37.0) g/dL RDW 23.3 H (11.5-15.5) % Neutrophils # 10.3 H (1.3-7.7) k/uL Lymphocytes # 0.5 L (1.0-4.8) k/uL APTT 63.8 H (22.0-30.0) sec Sodium 131 L (137-145) mmol/L Chloride 93 L (98-107) mmol/L Carbon Dioxide 20 L (22-30) mmol/L BUN 73 H (9-20) mg/dL Creatinine 8.33 H* (0.66-1.25) mg/dL Glucose 176 H (74-99) mg/dL Calcium 7.8 L (8.4-10.2) mg/dL Alkaline Phosphatase 144 H (38-126) U/L Total Protein 5.4 L (6.3-8.2) g/dL Albumin 2.6 L (3.5-5.0) g/dL Crossmatch 02/23/23 Range/Units 14:05 WBC (3.8-10.6) k/uL RBC (4.30-5.90) m/uL Hgb (13.0-17.5) gm/dL Hct (39.0-53.0) % MCHC (31.0-37.0) g/dL RDW (11.5-15.5) % Neutrophils # (1.3-7.7) k/uL Lymphocytes # (1.0-4.8) k/uL APTT (22.0-30.0) sec Sodium (137-145) mmol/L Chloride (98-107) mmol/L Carbon Dioxide (22-30) mmol/L BUN (9-20) mg/dL Creatinine (0.66-1.25) mg/dL Glucose (74-99) mg/dL Calcium (8.4-10.2) mg/dL Alkaline Phosphatase (38-126) U/L Total Protein (6.3-8.2) g/dL Albumin (3.5-5.0) g/dL Crossmatch See Detail
[2023-02-23] MEDS ORDERED: PANTOPRAZOLE 40 MG TABLET PO SCH (17:30)
[2023-02-23] MEDS ORDERED: INSULIN ASPART (NovoLOG) 100 UNIT/ML VIAL SQ SCH (17:30)
[2023-02-23] MEDS ORDERED: MIDODRINE 5 MG TAB PO SCH (17:30)
[2023-02-23 18:23] VITALS: RESP 18
[2023-02-23 20:49] VITALS: BP 125/62; PULSE 64; TEMP 97.4
[2023-02-23] MEDS ORDERED: RANOLAZINE 500 MG TAB.ER.12H PO SCH (21:00)
[2023-02-23] MEDS ORDERED: MELATONIN 5 MG TABLET PO SCH (21:00)
[2023-02-23] MEDS ORDERED: DULoxetine HCL 20 MG CAPSULE.DR PO SCH (21:00)
[2023-02-23] MEDS ORDERED: oxyBUTYnin chloride 5 MG TAB PO SCH (21:00)
[2023-02-23] MEDS ORDERED: METOPROLOL TARTRATE 12.5 MG TAB PO SCH (21:00)
[2023-02-23] MEDS ORDERED: SENNOSIDES-DOCUSATE SODIUM 1 EACH TAB PO SCH (22:00)
[2023-02-23] MEDS ORDERED: GABAPENTIN 100 MG CAP PO SCH (22:00)
[2023-02-24] MEDS ORDERED: FUROSEMIDE 80 MG TAB PO SCH (09:00)
[2023-02-24] MEDS ORDERED: POTASSIUM CHLORIDE ER 20 MEQ TAB.ER PO SCH (09:00)
[2023-02-24] MEDS ORDERED: SODIUM BICARBONATE TAB 650 MG TAB PO SCH (09:00)
[2023-02-24] MEDS ORDERED: ISOSORBIDE MONONITRATE ER 30 MG TAB.ER.24H PO SCH (09:00)
[2023-02-24] MEDS ORDERED: ATORVASTATIN 80 MG TAB PO SCH (09:00)
[2023-02-24] MEDS ORDERED: AMIODARONE 200 MG TAB PO SCH (14:00)
== END 2023-02-23 21:02 | disposition other institution (70) ==
LOC: EC 13:09 → 6NMEDSUR 15:27 → UNDOADMOB 15:27 → 6NMEDSUR 17:02 → EC 21:02
DX: D64.9 Anemia, unspecified (principal); E11.22 Type 2 diabetes mellitus with diabetic chronic kidney disease; E78.5 Hyperlipidemia, unspecified; I13.2 Hypertensive heart and chronic kidney disease with heart failure and with stage 5 chronic kidney disease, or end stage renal disease; I50.9 Heart failure, unspecified; N18.6 End stage renal disease; K21.9 Gastro-esophageal reflux disease without esophagitis; J44.9 Chronic obstructive pulmonary disease, unspecified; I25.2 Old myocardial infarction; I25.10 Atherosclerotic heart disease of native coronary artery without angina pectoris; F17.200 Nicotine dependence, unspecified, uncomplicated; Z99.2 Dependence on renal dialysis; Z91.041 Radiographic dye allergy status; Z79.4 Long term (current) use of insulin; Z79.899 Other long term (current) drug therapy; Z79.01 Long term (current) use of anticoagulants; Z79.02 Long term (current) use of antithrombotics/antiplatelets
CPT/HCPCS: 36415; 93005; 86900; 86901; 80053; 83735; 84484; 85025; 85610; 85730; 86850; 86920; 71046; 99285; 36430; P9016

== ENCOUNTER 2023-04-25 10:52 | Inpatient (IN) | payer OTHER, MEDICARE ==
--- NOTE | 2023-04-25 11:50 | XR ---
EXAMINATION TYPE: XR chest 2V DATE OF EXAM: 04/25/2023 COMPARISON: 04/16/2023 TECHNIQUE: PA and lateral views submitted. HISTORY: Difficulty breathing FINDINGS: Global cardiomegaly with diffuse interstitial pattern and small right effusion. Large area of consoli dation in the right perihilar region. Underlying COPD with biapical pleural thickening. Mediport cath eter seen with tip overlying the right atrium. No sizable pneumothorax. AC joint arthropathy. Atheros clerotic change aorta. IMPRESSION: 1. COPD correlate for CHF. 2. Persistent area of consolidation right perihilar represent underlying pneumonia. Neoplastic proces s not excluded.
--- NOTE | 2023-04-25 12:12 | CT ---
EXAMINATION TYPE: CT abdomen pelvis wo con DATE OF EXAM: 04/25/2023 COMPARISON: 11/12/2021 INDICATION: Fall, weakness, pain DLP: 574.4 mGycm, Automated exposure control for dose reduction was used. CONTRAST: 0 mL of Isovue 300. Study performed without Oral Contrast TECHNIQUE: Axial images were obtained from above the diaphragm to the pubic rami in the axial plane a t 5 mm thick sections. Reconstructed images are reviewed on the computer in the coronal plane. FINDINGS: Limited CT sections are obtained the lung bases. There is a 2.9 x 6.1 cm masslike area in the plant puller ior right lung base enlarged from comparison. Minimal right pleural effusion remains present. Mini mal pericardial effusion is present. CT ABDOMEN: Small amount of fluid is adjacent to the liver and spleen and within the mesentery. Small amount of fluid is in the pelvis. Findings could be compatible with the patient's intraperitoneal di alysis. Liver: Normal Spleen: Normal Pancreas: Normal. Small amount of fluid is above the pancreas likely related to intraperitoneal dialy sis fluid. Adrenal glands: The adrenal glands are normal. Gallbladder: Surgically absent Kidneys: No masses are evident. No hydronephrosis is present. 2.2 cm cyst is within the posterior m id right kidney. Calcification within the kidneys appears to be largely vascular. A few nonobstructi ng smaller renal stones may be at the inferior poles of the kidneys. Aorta: Vascular calcification is within the aorta. Inferior vena cava: Normal. CT PELVIS: Air and debris are within the right inguinal region suspicious for infection. A discrete a bscess formation is not identified. This tracks into the proximal right hemiscrotum. Loops of bowel within the abdomen and pelvis are normal. The study is without oral contrast limit ing bowel evaluation. Appendix: Not Identified. Noted distended tubular structure or inflammatory changes are evident. Urinary bladder: Unremarkable Genitourinary structures: Prostate appears normal. Osseous structures: No suspicious lytic or sclerotic lesions. Degenerative disc changes within the junito mbar spine. IMPRESSION: 1. Subcutaneous air within the right inguinal region extending towards the right hemiscrotum. Infect ion is suspected. Abscess formation is not identified this time. No loops of bowel or obvious inguina l hernia is evident. Preliminary results were called to the emergency room physician by Dr. Alysha gonzalez telephone at the time of preliminary interpretation. 2. Renal vascular calcifications with a few nonobstructing small renal stones present. 3. Free fluid within the abdomen and pelvis related to intraperitoneal dialysis. 4. Increase in size masslike area right posterior lung base
[2023-04-25 12:27] LABS: Anisocytosis Slight; Basophils % (A) 0 %; Eosinophils % (A) 0 %; HCT 37.9 % (39.0-53.0); HGB 11.5 gm/dL (13.0-17.5); Hypochromasia Slight; Lymphocytes # (A) 0.6 k/uL (1.0-4.8); Lymphocytes % (A) 3 %; MCH 30.7 pg (25.0-35.0); MCHC 30.3 g/dL (31.0-37.0); MCV 101.2 fL (80.0-100.0); Macrocytosis Slight; Mean Platelet Volume 9.1; Monocytes # (A) 0.4 k/uL (0-1.0); Monocytes % (A) 2 %; Neutrophils % (A) 94 %; Platelet Count 217 k/uL (150-450); RBC 3.74 m/uL (4.30-5.90); RDW 16.5 % (11.5-15.5); WBC 21.3 k/uL (3.8-10.6)
[2023-04-25] MEDS ORDERED: PIPERACILLIN-TAZOBACTAM 3.375 GM in SODIUM CHLORIDE 0.9% 100 ML IVPB ONE (12:45)
[2023-04-25 12:52] LABS: INR 1.1 (<1.2); Prothrombin Time 11.3 sec (9.0-12.0)
[2023-04-25 12:58] LABS: ALT 43 U/L (4-49); AST 44 U/L (17-59); African American GFR (CKD) 9 (>60 ml/min/1.73 sqM); Albumin 2.2 g/dL (3.5-5.0); Alkaline Phosphatase 293 U/L (38-126); Anion Gap 13 mmol/L; Blood Urea Nitrogen 63 mg/dL (9-20); Calcium 7.9 mg/dL (8.4-10.2); Carbon Dioxide 24 mmol/L (22-30); Chloride 92 mmol/L (98-107); Glucose 160 mg/dL (74-99); Magnesium 1.3 mg/dL (1.6-2.3); Non-African American GFR(CKD) 8 (>60 ml/min/1.73 sqM); Potassium 4.7 mmol/L (3.5-5.1); Sodium 129 mmol/L (137-145); Total Bilirubin 0.5 mg/dL (0.2-1.3); Total Protein 4.8 g/dL (6.3-8.2)
--- NOTE | 2023-04-25 13:03 | ED ---
General Adult HPI - General Chief complaint: Shortness of Breath Stated complaint: Fall Time Seen by Provider: 04/25/23 11:12 Source: patient, family, RN notes reviewed, old records reviewed Mode of arrival: wheelchair Limitations: no limitations - History of Present Illness Initial comments: 73-year-old male presenting for evaluation of right groin pain and swelling, as well as abdominal distention. Patient has history of end-stage renal disease on peritoneal dialysis. He also complains of mild dyspnea. No fever. Patient states that he noticed pain and swelling in his groin approximately one week ago. He states he has been moving his bowels regularly. - Related Data Home Medications Medication Instructions Recorded Confirmed Ergocalciferol (Vitamin D2) 1,250 mcg PO Q14D 07/18/17 03/25/23 [Vitamin D2] DULoxetine HCL [Cymbalta] 20 mg PO HS 10/27/20 03/25/23 Melatonin 5 mg PO HS 12/19/20 03/25/23 Sennosides-Docusate Sodium 2 tab PO TID 12/31/20 03/25/23 [Senokot-S] Gabapentin [Neurontin] 100 mg PO TID 01/23/21 03/25/23 Nitroglycerin Sl Tabs [Nitrostat] 0.4 mg SL Q5M PRN 01/23/21 03/25/23 rOPINIRole HCL [Requip] 0.5 mg PO TID 01/23/21 03/25/23 Ondansetron [Zofran] 4 mg PO DAILY PRN 05/08/21 03/25/23 oxyBUTYnin chloride [Ditropan] 5 mg PO 06/28/21 03/25/23 Lactulose [Constulose] 10 gm PO DAILY PRN 11/12/21 03/25/23 Nephro-Deepa 1 tab PO DAILY 11/12/21 03/25/23 Omeprazole 80 mg PO BID 11/12/21 03/25/23 Cyanocobalamin [Vitamin B-12] 1,000 mcg PO DAILY 12/14/21 03/25/23 Potassium Chloride 20 meq PO DAILY 11/29/22 03/25/23 Insulin Glargine,Hum.rec.anlog 20 units SQ HS 01/12/23 03/25/23 [Lantus Solostar Pen] Sodium Bicarbonate Tab 650 mg PO DAILY 01/12/23 03/25/23 Amiodarone [Cordarone] 200 mg PO DAILY@1400 02/18/23 03/25/23 Calcium Acetate [PhosLo] 667 mg PO 5XD PRN 02/18/23 03/25/23 Furosemide [Lasix] 80 mg PO DAILY 02/18/23 03/25/23 Insulin Aspart [NovoLOG Flexpen] 8 units SQ TID-W/MEALS 02/18/23 03/25/23 Isosorbide Mononitrate ER [Imdur] 30 mg PO DAILY 02/18/23 03/25/23 Ranolazine [Ranexa] 500 mg PO BID 02/18/23 03/25/23 Metoprolol Tartrate [Lopressor] 12.5 mg PO BID 02/23/23 03/25/23 Previous Rx's Medication Instructions Recorded Acetaminophen Tab [Tylenol] 650 mg PO Q6HR PRN tab 01/16/23 Atorvastatin Calcium [Lipitor] 80 mg PO DAILY #30 tablet 01/16/23 Clopidogrel [Plavix] 75 mg PO DAILY #30 tablet 01/16/23 Midodrine [ProAmatine] 5 mg PO AC-TID #90 tab 02/19/23 Rivaroxaban [Xarelto] 2.5 mg PO BID tab 02/19/23 Cyclobenzaprine [Flexeril] 10 mg PO TID PRN #12 tablet 03/10/23 Allergies Allergy/AdvReac Type Severity Reaction Status Date / Time Iodinated Contrast Media AdvReac CAN'T Verified 04/16/23 15:38 TAKE, RENAL DISEASE Iodine and Iodide Containing AdvReac CAN'T Verified 04/16/23 15:38 Produc TAKE, RENAL DISEASE Review of Systems ROS Statement: Those systems with pertinent positive or pertinent negative responses have been documented in the HPI. ROS Other: All systems not noted in ROS Statement are negative. Past Medical History Past Medical History: Coronary Artery Disease (CAD), Chest Pain / Angina, Heart Failure, COPD, Diabetes Mellitus, Dialysis, GERD/Reflux, GI Bleed, Hyperlipidemia, Hypertension, Myocardial Infarction (ID), Pneumonia, Renal Disease, Vascular Disorder Additional Past Medical History / Comment(s): Lower GI bleeds/suspect micro bleeds in intestine, occasional abdominal bloating, IDDM type II, neuropathy bilateral feet, ESRD with peritoneal dialysis ((cycler at night for 5 hours), past hemodialysis/spouse states she was told L upper arm fistula is plugged again, chronic anemia/transfusion of blood/iron, past partial SBO, benign colon polyps, chronic low back pain with bilateral sciatica, PVD, RLS, vertigo, insomnia, 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 Last Myocardial Infarction Date:: 03/2020 History of Any Multi-Drug Resistant Organisms: None Reported Past Surgical History: Cholecystectomy, Heart Catheterization With Stent Additional Past Surgical History / Comment(s): 03/25/20 R sublclavian mediport, R carotid stent done in [place], EGD/colonoscopy, endoscopic capsule, ORIF left wrist, aortagram, bilateral leg revascularizations/stents, left upper arm fistula and on 12/15/21 had thrombectomy balloon angioplasty of L arm fistula, peritoneal dialysis catheter removal and insertion (11/23/21). Past Anesthesia/Blood Transfusion Reactions: No Reported Reaction Additional Past Anesthesia/Blood Transfusion Reaction / Comment(s): Pt has had multiple blood transfusions without reaction. Date of Last Stent Placement:: 03/2021 Past Psychological History: No Psychological Hx Reported, PTSD Smoking Status: Current every day smoker - Past Family History Father History Unknown: Yes Mother Family Medical History: Cancer Additional Family Medical History / Comment(s): Mother from metastatic cancer pelvic origin. General Exam Limitations: no limitations General appearance: alert, in no apparent distress Head exam: Present: atraumatic, normocephalic Eye exam: Present: normal appearance, PERRL Neck exam: Present: normal inspection. Absent: tenderness, meningismus Respiratory exam: Present: rales, rhonchi. Absent: respiratory distress Cardiovascular Exam: Present: regular rate, normal rhythm GI/Abdominal exam: Present: soft, distended, other (Right inguinal mass, induration, tenderness to palpation, , erythematous). Absent: tenderness Extremities exam: Present: normal inspection, normal capillary refill. Absent: pedal edema Neurological exam: Present: alert, oriented X3, CN II-XII intact. Absent: motor sensory deficit Skin exam: Present: warm, dry Course Vital Signs 04/25/23 10:53 Temperature 98.9 F Pulse Rate 84 Respiratory 24 Rate Blood Pressure 94/54 O2 Sat by Pulse 90 L Oximetry - Reevaluation(s) Reevaluation #1: 04/25/23 13:[address] Soriano Medical Decision Making - Medical Decision Making Was pt. sent in by a medical professional or institution ([facility], JUMP IRON MACHINE PRESSER, urgent care, hospital, or longterm...) When possible be specific @ -No Did you speak to anyone other than the patient for history (EMS, parent, family, police, friend...)? What history was obtained from this source @ -No Did you review nursing and triage notes (agree or disagree)? Why? @ -I reviewed and agree with nursing and triage notes Were old charts reviewed (outside hosp., previous admission, EMS record, old EKG, old radiological studies, urgent care reports/EKG's, longterm records)? Report findings @ -No old charts were reviewed Differential Diagnosis (chest pain, altered mental status, abdominal pain women, abdominal pain men, vaginal bleeding, weakness, fever, dyspnea, syncope, headache, dizziness, GI bleed, back pain, seizure, CVA, palpatations, mental health, musculoskeletal)? @ -not applicable EKG interpreted by me (3pts min.). @Sinus rhythm rate of 70, NC interval 23, QRS duration 121, QTC [address] segment elevation. X-rays interpreted by me (1pt min.). @ Cardiomegaly and pulmonary vascular congestion CT interpreted by me (1pt min.). @ -[CT showing an area of subcutaneous air within the right groin consistent with patient's pain complaint. No bowel contained. U/S interpreted by me (1pt. min.). @ -None done What testing was considered but not performed or refused? (CT, X-rays, U/S, labs)? Why? @ -None What meds were considered but not given or refused? Why? @ -None Did you discuss the management of the patient with other professionals (professionals i.e. [facility] Felton, JUMP IRON MACHINE PRESSER, lab, RT, psych nurse, perinatal social worker, pilot control operator helper, teacher, resident medical officer, leather case finisher)? Give summary @ -Case discussed with sound physician group Was smoking cessation discussed for >3mins.? @ -No Was critical care preformed (if so, how long)? @ -No Were there social determinants of health that impacted care today? How? (Homelessness, low income, unemployed, alcoholism, drug addiction, transportation, low edu. Level, literacy, decrease access to med. care, senior living, rehab)? @ -No Was there de-escalation of care discussed even if they declined (Discuss DNR or withdrawal of care, Hospice)? DNR status @ -No What co-morbidities impacted this encounter? (DM, HTN, Smoking, COPD, CAD, Cancer, CVA, ARF, Chemo, Hep., AIDS, mental health diagnosis, sleep apnea, morbid obesity)? @ -[End-stage renal disease, COPD, CHF Was patient admitted / discharged? Hospital course, mention meds given and route, prescriptions, significant lab abnormalities, going to OR and other pertinent info. @ 73-year-old male presenting with pain and swelling in the right groin. Patient has area of induration and erythema with tenderness to palpation in the right inguinal region, initial concern is for strangulated and incarcerated hernia. CT is ordered which does show soft tissue infection and soft tissue ga s. Patient started on Zosyn, ankle, and clindamycin. He does not have pain in the perineum or in the scrotum specifically. He is afebrile. He has an elevated white blood cell count at 21. Additional laboratory testing is baseline for this patient. He will be admitted to internal medicine with consultation to both general surgery and nephrology. He is discussed with Sound Physician Undiagnosed new problem with uncertain prognosis? @ -No Drug Therapy requiring intensive monitoring for toxicity (Heparin, Nitro, Insulin, Cardizem)? @ -No Were any procedures done? @ -No Diagnosis/symptom? @ -Soft tissue infection in the groin, gas-forming organism Acute, or Chronic, or Acute on Chronic? @ -[Acute Uncomplicated (without systemic symptoms) or Complicated (systemic symptoms)? @ -default Side effects of treatment? @ -No Exacerbation, Progression, or Severe Exacerbation? @ -No Poses a threat to life or bodily function? How? (Chest pain, USA, ID, pneumonia, PE, COPD, DKA, ARF, appy, cholecystitis, CVA, Diverticulitis, Homicidal, Suicidal, threat to staff... and all critical care pts) @ -[Yes, sepsis - Lab Data Result diagrams: 04/25/23 12:09 04/25/23 12:09 Lab Results 09/03/1004/25/23 04/25/23 Range/Units 12:09 12:09 12:09 WBC 21.3 H (3.8-10.6) k/uL RBC 3.74 L (4.30-5.90) m/uL Hgb 11.5 L (13.0-17.5) gm/dL Hct 37.9 L (39.0-53.0) % MCV 101.2 H (80.0-100.0) fL MCH 30.7 (25.0-35.0) pg MCHC 30.3 L (31.0-37.0) g/dL RDW 16.5 H (11.5-15.5) % Plt Count 217 (150-450) k/uL MPV 9.1 Neutrophils % 94 % Lymphocytes % 3 % Monocytes % 2 % Eosinophils % 0 % Basophils % 0 % Neutrophils # 20.0 H (1.3-7.7) k/uL Lymphocytes # 0.6 L (1.0-4.8) k/uL Monocytes # 0.4 (0-1.0) k/uL Eosinophils # 0.0 (0-0.7) k/uL Basophils # 0.0 (0-0.2) k/uL Hypochromasia Slight Anisocytosis Slight Macrocytosis Slight PT 11.3 (9.0-12.0) sec INR 1.1 (<1.2) APTT 47.0 H (22.0-30.0) sec Sodium 129 L (137-145) mmol/L Potassium 4.7 (3.5-5.1) mmol/L Chloride 92 L (98-107) mmol/L Carbon Dioxide 24 (22-30) mmol/L Anion Gap 13 mmol/L BUN 63 H (9-20) mg/dL Creatinine 6.62 H (0.66-1.25) mg/dL Est GFR (CKD-EPI)AfAm 9 (>60 ml/min/1.73 sqM) Est GFR (CKD-EPI)NonAf 8 (>60 ml/min/1.73 sqM) Glucose 160 H (74-99) mg/dL Plasma Lactic Acid Leobardo (0.7-2.0) mmol/L Calcium 7.9 L (8.4-10.2) mg/dL Magnesium 1.3 L (1.6-2.3) mg/dL Total Bilirubin 0.5 (0.2-1.3) mg/dL AST 44 (17-59) U/L ALT 43 (4-49) U/L Alkaline Phosphatase 293 H (38-126) U/L Troponin I (0.000-0.034) ng/mL Total Protein 4.8 L (6.3-8.2) g/dL Albumin 2.2 L (3.5-5.0) g/dL 04/25/23 04/25/23 Range/Units 12:09 12:09 WBC (3.8-10.6) k/uL RBC (4.30-5.90) m/uL Hgb (13.0-17.5) gm/dL Hct (39.0-53.0) % MCV (80.0-100.0) fL MCH (25.0-35.0) pg MCHC (31.0-37.0) g/dL RDW (11.5-15.5) % Plt Count (150-450) k/uL MPV Neutrophils % % Lymphocytes % % Monocytes % % Eosinophils % % Basophils % % Neutrophils # (1.3-7.7) k/uL Lymphocytes # (1.0-4.8) k/uL Monocytes # (0-1.0) k/uL Eosinophils # (0-0.7) k/uL Basophils # (0-0.2) k/uL Hypochromasia Anisocytosis Macrocytosis PT (9.0-12.0) sec INR (<1.2) APTT (22.0-30.0) sec Sodium (137-145) mmol/L Potassium (3.5-5.1) mmol/L Chloride (98-107) mmol/L Carbon Dioxide (22-30) mmol/L Anion Gap mmol/L BUN (9-20) mg/dL Creatinine (0.66-1.25) mg/dL Est GFR (CKD-EPI)AfAm (>60 ml/min/1.73 sqM) Est GFR (CKD-EPI)NonAf (>60 ml/min/1.73 sqM) Glucose (74-99) mg/dL Plasma Lactic Acid Leobardo 1.5 (0.7-2.0) mmol/L Calcium (8.4-10.2) mg/dL Magnesium (1.6-2.3) mg/dL Total Bilirubin (0.2-1.3) mg/dL AST (17-59) U/L ALT (4-49) U/L Alkaline Phosphatase (38-126) U/L Troponin I 0.015 (0.000-0.034) ng/mL Total Protein (6.3-8.2) g/dL Albumin (3.5-5.0) g/dL Disposition Clinical Impression: End-stage renal disease on peritoneal dialysis, Cellulitis, Necrotizing cellulitis Disposition: ADMITTED IP TO THIS HOSP Condition: Stable Is patient prescribed a controlled substance at d/c from ED?: No Referrals: [facility],Clinic [Primary Care Provider] - 1-2 days Time of Disposition: 13:21
[2023-04-25] MEDS ORDERED: VANCOMYCIN IV PER PHARMACY 1 EACH MISC MISCELLANE PRN (13:09)
[2023-04-25] MEDS ORDERED: CLINDAMYCIN 600 MG in DEXTROSE 5% IN WATER 50 ML IVPB STA ×2 (13:09)
[2023-04-25] MEDS ORDERED: NALOXONE 0.4 MG/ML 1 ML VIAL IV PRN (13:10)
[2023-04-25] MEDS ORDERED: SODIUM CHLORIDE 0.9% 1,000 ML IV SCH (13:15)
[2023-04-25] MEDS ORDERED: VANCOMYCIN 1,500 MG in SODIUM CHLORIDE 0.9% 500 ML 500 ML IVPB STA (13:15)
[2023-04-25 13:52] LABS: NT-Pro-B-Type Natriuretic Pept 33200 pg/mL
[2023-04-25] MEDS: HYDROmorphone 0.5 MG/0.5 ML SYRINGE IVP PRN ×2 (14:10→21:33)
[2023-04-25 14:34] VITALS: RESP 18
[2023-04-25] MEDS ORDERED: DIALYSIS (PERIT 2.5%) 2,000 ML 50 G/2,000 ML BAG INTRAPERIT SCH (14:45)
[2023-04-25] MEDS ORDERED: DEXTROSE 50% SYRINGE 50 ML IVP PRN ×2 (14:46)
--- NOTE | 2023-04-25 14:52 | P.HPIM ---
History of Present Illness H&P Date: 04/25/23 Patient is a 73-year-old male with history of ESRD on peritoneal dialysis, atrial fibrillation, type 2 diabetes insulin-dependent, CAD status post multiple stents, history of GI bleed, hypertension, dyslipidemia presenting with right inguinal pain. Pain started about 2 days ago, and then he showed it to his , who prompted him to come to the hospital. He claims that it is mostly pain and swelling bothering him. He has not noticed significant redness. He denies any fevers, or chills. He denies any recent trauma to that area. He has some nausea but no vomitting, or bowel issues. He makes very little urine. In the ED, temperature was 98.9, pulse 84, respiratory rate 24, blood pressure 94/53, saturating at 90% on room air. WBC 21.3 neutrophilic predominant, hemoglobin 11.5, sodium 129, BUN 63, creatinine 6.6 to, glucose 160, magnesium 1.9, negative troponin. Chest x-ray independently interpreted, shows right posterior lung capacity, increased vascular prominence. CT abdomen and pelvis shows subcu air within the right inguinal area extending towards the right hem iscrotum, nonobstructive renal stones, increase in size masslike area right posterior lung base. Patient given IV Zosyn and clindamycin, and vancomycin ED. General surgery consulted. Being admitted for sepsis secondary to right inguinal infected hernia/abscess. Pertinent positives and negatives as discussed in HPI, a complete review of systems was performed and all other systems are negative. Patient seen and examined at bedside. Vital signs reviewed General: nontoxic, no distress, appears at stated age Derm: warm, dry, right inguinal mass, tender to palpation, no significant erythema Head: atraumatic, normocephalic, symmetric Eyes: EOMI, no lid lag, anicteric sclera, pupils equal round reactive to light ENT: Nose and ears atraumatic Neck: No thyromegaly, supple Mouth: no lip lesion, mucus membranes moist Cardiovascular: S1S2 reg, no murmur, 2+ pitting edema Lungs: clear to auscultation bilateral, no rhonchi, no rales, no wheeze, no accessory muscle use, PD catheter in place Abdominal: soft, nontender to palpation, no guarding, no appreciable organomegaly Ext: no gross muscle atrophy, muscle strength muscle strength 5 out of 5 in all 4 extremities, no contractures Neuro: CN II-XII grossly intact Psych: Alert, oriented, appropriate affect Assessment/Plan: Active: Sepsis 2/2 gangrenous right inguinal infected mass Severe leukocytosis hyponatremia hypomagnesemia ESRD on PD Insulin dependent diabetes -Blood cx pending -Continue IV vanc, zosyn, and clinda -ID consulted -Gen Surgery consulted -Nephro consulted -SSI, continue home lantus -2 g mag sulfate IV being given -repeat CBC, CMP and mag tomorrow -hold lasix and imdur in the setting of sepsis -hold Anticoagulation -NPO Chronic: Afib CAD with stents hx of GI bleed HLD HTN The patient is admitted with an anticipated greater than 2 midnight stay as inpatient status for evaluation of sepsis. Surrogate decision-maker: spouse CODE STATUS:full code DVT prophylaxis: SCDs Anticipated discharge date: pending clinical course Anticipated discharge place: pending clinical course A total of 55 minutes was spent on the care of this complex patient more than 50% of the time was spent in counseling and care coordination. Past Medical History Past Medical History: Coronary Artery Disease (CAD), Chest Pain / Angina, Heart Failure, COPD, Diabetes Mellitus, Dialysis, GERD/Reflux, GI Bleed, Hyperlipidemia, Hypertension, Myocardial Infarction ([place]), Pneumonia, Renal Disease, Vascular Disorder Additional Past Medical History / Comment(s): Lower GI bleeds/suspect micro bleeds in intestine, occasional abdominal bloating, IDDM type II, neuropathy bilateral feet, ESRD with peritoneal dialysis ((cycler at night for 5 hours), past hemodialysis/spouse states she was told L upper arm fistula is plugged again, chronic anemia/transfusion of blood/iron, past partial SBO, benign colon polyps, chronic low back pain with bilateral sciatica, PVD, RLS, vertigo, insomnia, 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 Last Myocardial Infarction Date:: 03/2020 History of Any Multi-Drug Resistant Organisms: None Reported Past Surgical History: Cholecystectomy, Heart Catheterization With Stent Additional Past Surgical History / Comment(s): 03/25/20 R sublclavian mediport, R carotid stent done in [place], EGD/colonoscopy, endoscopic capsule, ORIF left wrist, aortagram, bilateral leg revascularizations/stents, left upper arm fistula and on 12/15/21 had thrombectomy balloon angioplasty of L arm fistula, peritoneal dialysis catheter removal and insertion (11/23/21). Past Anesthesia/Blood Transfusion Reactions: No Reported Reaction Additional Past Anesthesia/Blood Transfusion Reaction / Comment(s): Pt has had multiple blood transfusions without reaction. Date of Last Stent Placement:: 03/2021 Past Psychological History: No Psychological Hx Reported, PTSD Smoking Status: Current every day smoker - Past Family History Father History Unknown: Yes Mother Family Medical History: Cancer Additional Family Medical History / Comment(s): Mother from metastatic cancer pelvic origin. Medications and Allergies Home Medications Medication Instructions Recorded Confirmed Type Ergocalciferol (Vitamin D2) 1,250 mcg PO Q14D 07/18/17 03/25/23 History [Vitamin D2] DULoxetine HCL [Cymbalta] 20 mg PO HS 10/27/20 03/25/23 History Melatonin 5 mg PO HS 12/19/20 03/25/23 History Sennosides-Docusate Sodium 2 tab PO TID 12/31/20 03/25/23 History [Senokot-S] Gabapentin [Neurontin] 100 mg PO TID 01/23/21 03/25/23 History Nitroglycerin Sl Tabs [Nitrostat] 0.4 mg SL Q5M PRN 01/23/21 03/25/23 History rOPINIRole HCL [Requip] 0.5 mg PO TID 01/23/21 03/25/23 History Ondansetron [Zofran] 4 mg PO DAILY PRN 05/08/21 03/25/23 History oxyBUTYnin chloride [Ditropan] 5 mg PO HS 06/28/21 03/25/23 History Lactulose [Constulose] 10 gm PO DAILY PRN 11/12/21 03/25/23 History Nephro-Deepa 1 tab PO DAILY 11/12/21 03/25/23 History Omeprazole 80 mg PO BID 11/12/21 03/25/23 History Cyanocobalamin [Vitamin B-12] 1,000 mcg PO DAILY 12/14/21 03/25/23 History Potassium Chloride 20 meq PO DAILY 11/29/22 03/25/23 History Insulin Glargine,Hum.rec.anlog 20 units SQ HS 01/12/23 03/25/23 History [Lantus Solostar Pen] Sodium Bicarbonate Tab 650 mg PO DAILY 01/12/23 03/25/23 History Acetaminophen Tab [Tylenol] 650 mg PO Q6HR PRN tab 01/16/23 03/25/23 Rx Atorvastatin Calcium [Lipitor] 80 mg PO DAILY #30 tablet 01/16/23 03/25/23 Rx Clopidogrel [Plavix] 75 mg PO DAILY #30 tablet 01/16/23 03/25/23 Rx Amiodarone [Cordarone] 200 mg PO DAILY@1400 02/18/23 03/25/23 History Calcium Acetate [PhosLo] 667 mg PO 5XD PRN 02/18/23 03/25/23 History Furosemide [Lasix] 80 mg PO DAILY 02/18/23 03/25/23 History Insulin Aspart [NovoLOG Flexpen] 8 units SQ TID-W/MEALS 02/18/23 03/25/23 History Isosorbide Mononitrate ER [Imdur] 30 mg PO DAILY 02/18/23 03/25/23 History Ranolazine [Ranexa] 500 mg PO BID 02/18/23 03/25/23 History Midodrine [ProAmatine] 5 mg PO AC-TID #90 tab 02/19/23 03/25/23 Rx Rivaroxaban [Xarelto] 2.5 mg PO BID tab 02/19/23 03/25/23 Rx Metoprolol Tartrate [Lopressor] 12.5 mg PO BID 02/23/23 03/25/23 History Cyclobenzaprine [Flexeril] 10 mg PO TID PRN #12 tablet 03/10/23 03/25/23 Rx Allergies Allergy/AdvReac Type Severity Reaction Status Date / Time Iodinated Contrast Media AdvReac CAN'T Verified 04/25/23 14:48 TAKE, RENAL DISEASE Iodine and Iodide Containing AdvReac CAN'T Verified 04/25/23 14:48 Produc TAKE, RENAL DISEASE Physical Exam Vitals: Vital Signs Temp Pulse Resp BP Pulse Ox 04/25/23 14:27 74 18 103/56 94 L 04/25/23 10:53 98.9 F 84 24 94/54 90 L Intake and Output 04/24/23 04/25/23 04/25/23 22:59 06:59 14:59 Other: Weight 81.647 kg Results CBC & Chem 7: 04/25/23 12:09 04/25/23 12:09 Labs: Abnormal Lab Results - Last 24 Hours (Table) 04/25/23 04/25/23 04/25/23 Range/Units 12:09 12:09 12:09 WBC 21.3 H (3.8-10.6) k/uL RBC 3.74 L (4.30-5.90) m/uL Hgb 11.5 L (13.0-17.5) gm/dL Hct 37.9 L (39.0-53.0) % MCV 101.2 H (80.0-100.0) fL MCHC 30.3 L (31.0-37.0) g/dL RDW 16.5 H (11.5-15.5) % Neutrophils # 20.0 H (1.3-7.7) k/uL Lymphocytes # 0.6 L (1.0-4.8) k/uL APTT 47.0 H (22.0-30.0) sec Sodium 129 L (137-145) mmol/L Chloride 92 L (98-107) mmol/L BUN 63 H (9-20) mg/dL Creatinine 6.62 H (0.66-1.25) mg/dL Glucose 160 H (74-99) mg/dL Calcium 7.9 L (8.4-10.2) mg/dL Magnesium 1.3 L (1.6-2.3) mg/dL Alkaline Phosphatase 293 H (38-126) U/L Total Protein 4.8 L (6.3-8.2) g/dL Albumin 2.2 L (3.5-5.0) g/dL
[2023-04-25] MEDS ORDERED: LACTULOSE 20 GM/30 ML CUP PO ONE (16:00)
[2023-04-25] MEDS: MAGNESIUM SULFATE-D5W PMX 1 GM in DEXTROSE/WATER 1 100ML.BAG IVPB SCH ×2 (16:30→17:43)
[2023-04-25 16:35] LABS: Glucose,Whole Blood 158 mg/dL (70-110)
[2023-04-25] MEDS: INSULIN ASPART (NovoLOG) 100 UNIT/ML VIAL SQ SCH ×2 (16:39→20:33)
--- NOTE | 2023-04-25 17:17 | XR ---
EXAMINATION TYPE: XR KUB portable DATE OF EXAM: 04/25/2023 4:49 PM CLINICAL INDICATION:Male, 73 years old with history of CAPD cath placement; [facility] COMPARISON: None. TECHNIQUE: One radiographic view of the abdomen was obtained. FINDINGS: There is a catheter that terminates over the sacrum. There is gaseous dilation of multiple loops of small bowel. Right upper quadrant course significance. The bowel gas pattern is unremarkable . Multilevel degeneration changes of the spine. IMPRESSION: Catheter coiling over the sacrum. Few scattered gaseous dilated loops of small bowel.
--- NOTE | 2023-04-25 17:37 | P.GSCN ---
History of Present Illness Consult date: 04/25/23 History of present illness: Patient seen patient seen and evaluated. Tenderness along the right inguinal canal including the right testes. Patient has clinical history of insulin- dependent diabetes and stage renal disease. CT imaging reviewed. 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 Recommend urology consultation for Ed's gangrene. Past Medical History Past Medical History: Coronary Artery Disease (CAD), Chest Pain / Angina, Heart Failure, COPD, Diabetes Mellitus, Dialysis, GERD/Reflux, GI Bleed, Hyperlipidemia, Hypertension, Myocardial Infarction ([place]), Pneumonia, Renal Disea se, Vascular Disorder Additional Past Medical History / Comment(s): Lower GI bleeds/suspect micro bleeds in intestine, occasional abdominal bloating, IDDM type II, neuropathy bilateral feet, ESRD with peritoneal dialysis ((cycler at night for 5 hours), past hemodialysis/spouse states she was told L upper arm fistula is plugged again, chronic anemia/transfusion of blood/iron, past partial SBO, benign colon polyps, chronic low back pain with bilateral sciatica, PVD, RLS, vertigo, insomnia, 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 Last Myocardial Infarction Date:: 03/2020 History of Any Multi-Drug Resistant Organisms: None Reported Past Surgical History: Cholecystectomy, Heart Catheterization With Stent Additional Past Surgical History / Comment(s): 03/25/20 R sublclavian mediport, R carotid stent done in [place], EGD/colonoscopy, endoscopic capsule, ORIF left wrist, aortagram, bilateral leg revascularizations/stents, left upper arm fistula and on 12/15/21 had thrombectomy balloon angioplasty of L arm fistula, peritoneal dialysis catheter removal and insertion (11/23/21). Past Anesthesia/Blood Transfusion Reactions: No Reported Reaction Additional Past Anesthesia/Blood Transfusion Reaction / Comm: Pt has had multiple blood transfusions without reaction. Date of Last Stent Placement:: 03/2021 Past Psychological History: No Psychological Hx Reported, PTSD Smoking Status: Current every day smoker - Past Family History Father History Unknown: Yes Mother Family Medical History: Cancer Additional Family Medical History / Comment(s): Mother from metastatic cancer pelvic origin. Medications and Allergies Home Medications Medication Instructions Recorded Confirmed Type Ergocalciferol (Vitamin D2) 1,250 mcg PO Q14D 07/18/17 04/25/23 History [Vitamin D2] DULoxetine HCL [Cymbalta] 20 mg PO HS@2200 10/27/20 04/25/23 History Melatonin 5 mg PO HS@219912/19/20 04/25/23 History Sennosides-Docusate Sodium 2 tab PO BID@1000,2200 12/31/20 04/25/23 History [Senokot-S] Gabapentin [Neurontin] 100 mg PO TID@1000,1430,2200 01/23/21 04/25/23 History Nitroglycerin Sl Tabs [Nitrostat] 0.4 mg SL Q5M PRN 01/23/21 04/25/23 History rOPINIRole HCL [Requip] 0.5 mg PO TID@1000,1430,219901/23/21 04/25/23 History Ondansetron [Zofran] 4 mg PO DAILY PRN 05/08/21 04/25/23 History oxyBUTYnin chloride [Ditropan] 5 mg PO HS@219906/28/21 04/25/23 History Lactulose [Constulose] 10 gm PO DAILY PRN 11/12/21 04/25/23 History Nephro-Deepa 1 tab PO DAILY@1000 11/12/21 04/25/23 History Omeprazole 40 mg PO BID@1000,0 11/12/21 04/25/23 History Cyanocobalamin [Vitamin B-12] 1,000 mcg PO DAILY@1000 12/14/21 04/25/23 History Potassium Chloride 20 meq PO DAILY@1000 11/29/22 04/25/23 History Insulin Glargine,Hum.rec.anlog 25 units SQ HS@219901/12/23 04/25/23 History [Lantus Solostar Pen] Sodium Bicarbonate Tab 650 mg PO DAILY@1000 01/12/23 04/25/23 History Acetaminophen Tab [Tylenol] 650 mg PO Q6HR PRN tab 01/16/23 04/25/23 Rx Amiodarone [Cordarone] 200 mg PO DAILY@1430 02/18/23 04/25/23 History Calcium Acetate [PhosLo] 1,334 mg PO 5XD PRN 02/18/23 04/25/23 History Insulin Aspart [NovoLOG Flexpen] 8 units SQ TID-W/MEALS 02/18/23 04/25/23 History Isosorbide Mononitrate ER [Imdur] 30 mg PO DAILY@1000 02/18/23 04/25/23 History Ranolazine [Ranexa] 500 mg PO BID@1000,2200 02/18/23 04/25/23 History Midodrine [ProAmatine] 5 mg PO AC-TID #90 tab 02/19/23 04/25/23 Rx Metoprolol Tartrate [Lopressor] 12.5 mg PO BID@1000,2200 02/23/23 04/25/23 History Albuterol Nebulized [Ventolin 2.5 mg INHALATION RT-Q4H PRN 04/25/23 04/25/23 History Nebulized] Atorvastatin Calcium [Lipitor] 40 mg PO HS@219904/25/23 04/25/23 History Benzonatate 100 mg PO BID PRN 04/25/23 04/25/23 History Clopidogrel [Plavix] 75 mg PO DAILY@1000 04/25/23 04/25/23 History levOCARNitine 330 mg PO BID PRN 04/25/23 04/25/23 History Allergies Allergy/AdvReac Type Severity Reaction Status Date / Time Iodinated Contrast Media AdvReac CAN'T Verified 04/25/23 14:48 TAKE, RENAL DISEASE Iodine and Iodide Containing AdvReac CAN'T Verified 04/25/23 14:48 Produc TAKE, RENAL DISEASE Surgical - Exam Vital Signs Temp Pulse Resp BP Pulse Ox 98.9 F 84 24 94/54 90 L 04/25/23 10:53 04/25/23 10:53 04/25/23 10:53 04/25/23 10:53 04/25/23 10:53 Results - Labs 04/25/23 12:09 04/25/23 12:09 Abnormal Lab Results - Last 24 Hours (Table) 04/25/23 04/25/23 04/25/23 Range/Units 12:09 12:09 12:09 WBC 21.3 H (3.8-10.6) k/uL RBC 3.74 L (4.30-5.90) m/uL Hgb 11.5 L (13.0-17.5) gm/dL Hct 37.9 L (39.0-53.0) % MCV 101.2 H (80.0-100.0) fL MCHC 30.3 L (31.0-37.0) g/dL RDW 16.5 H (11.5-15.5) % Neutrophils # 20.0 H (1.3-7.7) k/uL Lymphocytes # 0.6 L (1.0-4.8) k/uL APTT 47.0 H (22.0-30.0) sec Sodium 129 L (137-145) mmol/L Chloride 92 L (98-107) mmol/L BUN 63 H (9-20) mg/dL Creatinine 6.62 H (0.66-1.25) mg/dL Glucose 160 H (74-99) mg/dL POC Glucose (mg/dL) (70-110) mg/dL Calcium 7.9 L (8.4-10.2) mg/dL Magnesium 1.3 L (1.6-2.3) mg/dL Alkaline Phosphatase 293 H (38-126) U/L Total Protein 4.8 L (6.3-8.2) g/dL Albumin 2.2 L (3.5-5.0) g/dL 04/25/23 Range/Units 16:33 WBC (3.8-10.6) k/uL RBC (4.30-5.90) m/uL Hgb (13.0-17.5) gm/dL Hct (39.0-53.0) % MCV (80.0-100.0) fL MCHC (31.0-37.0) g/dL RDW (11.5-15.5) % Neutrophils # (1.3-7.7) k/uL Lymphocytes # (1.0-4.8) k/uL APTT (22.0-30.0) sec Sodium (137-145) mmol/L Chloride (98-107) mmol/L BUN (9-20) mg/dL Creatinine (0.66-1.25) mg/dL Glucose (74-99) mg/dL POC Glucose (mg/dL) 158 H (70-110) mg/dL Calcium (8.4-10.2) mg/dL Magnesium (1.6-2.3) mg/dL Alkaline Phosphatase (38-126) U/L Total Protein (6.3-8.2) g/dL Albumin (3.5-5.0) g/dL Diabetes panel 04/25/23 Range/Units 12:09 Sodium 129 L (137-145) mmol/L Potassium 4.7 (3.5-5.1) mmol/L Chloride 92 L (98-107) mmol/L Carbon Dioxide 24 (22-30) mmol/L BUN 63 H (9-20) mg/dL Creatinine 6.62 H (0.66-1.25) mg/dL Glucose 160 H (74-99) mg/dL Calcium 7.9 L (8.4-10.2) mg/dL AST 44 (17-59) U/L ALT 43 (4-49) U/L Alkaline Phosphatase 293 H (38-126) U/L Total Protein 4.8 L (6.3-8.2) g/dL Albumin 2.2 L (3.5-5.0) g/dL Calcium panel 04/25/23 Range/Units 12:09 Calcium 7.9 L (8.4-10.2) mg/dL Albumin 2.2 L (3.5-5.0) g/dL Pituitary panel 04/25/23 Range/Units 12:09 Sodium 129 L (137-145) mmol/L Potassium 4.7 (3.5-5.1) mmol/L Chloride 92 L (98-107) mmol/L Carbon Dioxide 24 (22-30) mmol/L BUN 63 H (9-20) mg/dL Creatinine 6.62 H (0.66-1.25) mg/dL Glucose 160 H (74-99) mg/dL Calcium 7.9 L (8.4-10.2) mg/dL Adrenal panel 04/25/23 Range/Units 12:09 Sodium 129 L (137-145) mmol/L Potassium 4.7 (3.5-5.1) mmol/L Chloride 92 L (98-107) mmol/L Carbon Dioxide 24 (22-30) mmol/L BUN 63 H (9-20) mg/dL Creatinine 6.62 H (0.66-1.25) mg/dL Glucose 160 H (74-99) mg/dL Calcium 7.9 L (8.4-10.2) mg/dL Total Bilirubin 0.5 (0.2-1.3) mg/dL AST 44 (17-59) U/L ALT 43 (4-49) U/L Alkaline Phosphatase 293 H (38-126) U/L Total Protein 4.8 L (6.3-8.2) g/dL Albumin 2.2 L (3.5-5.0) g/dL
--- NOTE | 2023-04-25 19:15 | P.DS ---
Providers Date of admission: 04/25/23 13:11 Expected date of discharge: 04/25/23 Attending physician: Corrina Mccain DO Consults: 04/25/23 13:10 Consult Physician Routine Consulting Provider: Yulissa Ivory Consult Reason/Comments: Peritoneal dialysis Do you want consulting provider notified?: Yes 04/25/23 13:21 Consult Physician Routine Consulting Provider: Chastity Soriano Consult Reason/Comments: Cellulitis, necrotizing soft tissue infection Do you want consulting provider notified?: Yes 04/25/23 14:45 Consult Physician Routine Consulting Provider: Maricel Jansen Consult Reason/Comments: inguinal infection Do you want consulting provider notified?: Yes 04/25/23 17:34 Consult Physician Urgent Consulting Provider: Ruy Vázquez Consult Reason/Comments: fred right scrotum Do you want consulting provider notified?: Yes Primary care physician: [facility] Course: Please see H&P. Patient admitted few hours ago. Being transferred to [facility] for higher level of care. Accepting physician is Dr. Efrain Diamond. Plan - Discharge Summary Discharge Rx Participant: No New Discharge Prescriptions: No Action Ergocalciferol (Vitamin D2) [Vitamin D2] 1,250 mcg PO Q14D DULoxetine HCL [Cymbalta] 20 mg PO HS@2200 Melatonin 5 mg PO HS@2200 Sennosides-Docusate Sodium [Senokot-S] 2 tab PO BID@1000,2200 Nitroglycerin Sl Tabs [Nitrostat] 0.4 mg SL Q5M PRN PRN Reason: Chest Pain Gabapentin [Neurontin] 100 mg PO TID@1000,1430,2200 oxyBUTYnin chloride [Ditropan] 5 mg PO HS@2200 Cyanocobalamin [Vitamin B-12] 1,000 mcg PO DAILY@1000 Potassium Chloride 20 meq PO DAILY@1000 Amiodarone [Cordarone] 200 mg PO DAILY@1430 Calcium Acetate [PhosLo] 1,334 mg PO 5XD PRN PRN Reason: with meals and snacks Isosorbide Mononitrate ER [Imdur] 30 mg PO DAILY@1000 Ranolazine [Ranexa] 500 mg PO BID@1000,2200 Metoprolol Tartrate [Lopressor] 12.5 mg PO BID@1000,2200 Albuterol Nebulized [Ventolin Nebulized] 2.5 mg INHALATION RT-Q4H PRN PRN Reason: Shortness Of Breath Atorvastatin Calcium [Lipitor] 40 mg PO HS@2200 rOPINIRole HCL [Requip] 0.5 mg PO TID@1000,1430,2200 Ondansetron [Zofran] 4 mg PO DAILY PRN PRN Reason: Nausea And Vomiting Omeprazole 40 mg PO BID@1000,2200 Nephro-Deepa 1 tab PO DAILY@1000 Lactulose [Constulose] 10 gm PO DAILY PRN PRN Reason: Constipation Insulin Glargine,Hum.rec.anlog [Lantus Solostar Pen] 25 units SQ HS@2200 Sodium Bicarbonate Tab 650 mg PO DAILY@1000 Acetaminophen Tab [Tylenol] 650 mg PO Q6HR PRN tab PRN Reason: Fever and/ or Mild Pain Insulin Aspart [NovoLOG Flexpen] 8 units SQ TID-W/MEALS Midodrine [ProAmatine] 5 mg PO AC-TID #90 tab Benzonatate 100 mg PO BID PRN PRN Reason: Cough Clopidogrel [Plavix] 75 mg PO DAILY@1000 levOCARNitine 330 mg PO BID PRN PRN Reason: CRAMPING Discharge Medication List Ergocalciferol (Vitamin D2) [Vitamin D2] 1,250 mcg PO Q14D 07/18/17 [History] DULoxetine HCL [Cymbalta] 20 mg PO HS@219910/27/20 [History] Melatonin 5 mg PO HS@219912/19/20 [History] Sennosides-Docusate Sodium [Senokot-S] 2 tab PO BID@1000,2200 12/31/20 [History] Gabapentin [Neurontin] 100 mg PO TID@1000,1430,2200 01/23/21 [History] Nitroglycerin Sl Tabs [Nitrostat] 0.4 mg SL Q5M PRN 01/23/21 [History] rOPINIRole HCL [Requip] 0.5 mg PO TID@1000,1430,2200 01/23/21 [History] Ondansetron [Zofran] 4 mg PO DAILY PRN 05/08/21 [History] oxyBUTYnin chloride [Ditropan] 5 mg PO HS@2200 11/10/21 [History] Lactulose [Constulose] 10 gm PO DAILY PRN 11/12/21 [History] Nephro-Deepa 1 tab PO DAILY@99911/12/21 [History] Omeprazole 40 mg PO BID@999,219911/12/21 [History] Cyanocobalamin [Vitamin B-12] 1,000 mcg PO DAILY@99912/14/21 [History] Potassium Chloride 20 meq PO DAILY@99911/29/22 [History] Insulin Glargine,Hum.rec.anlog [Lantus Solostar Pen] 25 units SQ HS@219901/12/23 [History] Sodium Bicarbonate Tab 650 mg PO DAILY@99901/12/23 [History] Acetaminophen Tab [Tylenol] 650 mg PO Q6HR PRN tab 01/16/23 [Rx] Amiodarone [Cordarone] 200 mg PO DAILY@142902/18/23 [History] Calcium Acetate [PhosLo] 1,334 mg PO 5XD PRN 02/18/23 [History] Insulin Aspart [NovoLOG Flexpen] 8 units SQ TID-W/MEALS 02/18/23 [History] Isosorbide Mononitrate ER [Imdur] 30 mg PO DAILY@99902/18/23 [History] Ranolazine [Ranexa] 500 mg PO BID@999,219902/18/23 [History] Midodrine [ProAmatine] 5 mg PO AC-TID #90 tab 02/19/23 [Rx] Metoprolol Tartrate [Lopressor] 12.5 mg PO BID@999,219902/23/23 [History] Albuterol Nebulized [Ventolin Nebulized] 2.5 mg INHALATION RT-Q4H PRN 04/25/23 [History] Atorvastatin Calcium [Lipitor] 40 mg PO HS@219904/25/23 [History] Benzonatate 100 mg PO BID PRN 04/25/23 [History] Clopidogrel [Plavix] 75 mg PO DAILY@99904/25/23 [History] levOCARNitine 330 mg PO BID PRN 04/25/23 [History] Follow up Appointment(s)/Referral(s): [facility],Clinic [Primary Care Provider] - 1-2 days
[2023-04-25] MEDS ORDERED: PIPERACILLIN-TAZOBACTAM 3.375 GM in SODIUM CHLORIDE 0.9% 100 ML IVPB SCH ×2 (20:00→21:00)
[2023-04-25 20:33] LABS: Glucose,Whole Blood 174 mg/dL (70-110)
[2023-04-25 21:05] VITALS: BP 128/60; PULSE 83; TEMP 97.6
[2023-04-26] MEDS ORDERED: CLINDAMYCIN 600 MG in DEXTROSE 5% IN WATER 50 ML IVPB SCH ×2
[2023-04-26] MEDS ORDERED: VANCOMYCIN 1,250 MG in SODIUM CHLORIDE 0.9% 250 ML IVPB ONE (10:00)
== END 2023-04-25 21:50 | disposition short-term general hospital (02) | DRG 871 ==
LOC: EC 10:52 → 3SCARD 13:11
PROVIDERS: ADMIT Internal Medicine; ATTEND Internal Medicine
PROC: 3E1M39Z Irrigation of Peritoneal Cavity using Dialysate, Percutaneous Approach (ICD-10-PCS; principal; 2023-04-25)
DX: A41.9 Sepsis, unspecified organism (principal); N18.6 End stage renal disease; I13.2 Hypertensive heart and chronic kidney disease with heart failure and with stage 5 chronic kidney disease, or end stage renal disease; E87.1 Hypo-osmolality and hyponatremia; E11.36 Type 2 diabetes mellitus with diabetic cataract; E11.22 Type 2 diabetes mellitus with diabetic chronic kidney disease; I48.91 Unspecified atrial fibrillation; G25.81 Restless legs syndrome; E11.40 Type 2 diabetes mellitus with diabetic neuropathy, unspecified; N49.3 Fournier gangrene; E11.51 Type 2 diabetes mellitus with diabetic peripheral angiopathy without gangrene; I50.9 Heart failure, unspecified; J44.9 Chronic obstructive pulmonary disease, unspecified; Z99.2 Dependence on renal dialysis; Z79.4 Long term (current) use of insulin; Z20.822 Contact with and (suspected) exposure to COVID-19; I25.10 Atherosclerotic heart disease of native coronary artery without angina pectoris; K21.9 Gastro-esophageal reflux disease without esophagitis; E78.5 Hyperlipidemia, unspecified; N20.0 Calculus of kidney; E83.42 Hypomagnesemia; G89.29 Other chronic pain; H26.9 Unspecified cataract; M54.42 Lumbago with sciatica, left side; M54.41 Lumbago with sciatica, right side; I25.2 Old myocardial infarction; G47.00 Insomnia, unspecified; Z79.02 Long term (current) use of antithrombotics/antiplatelets; Z79.899 Other long term (current) drug therapy; F17.200 Nicotine dependence, unspecified, uncomplicated; Z95.5 Presence of coronary angioplasty implant and graft; Z88.8 Allergy status to other drugs, medicaments and biological substances
CPT/HCPCS: 36415; 71046; 74018; 74176; 80053; 83605; 83735; 83880; 84484; 85025; 85610; 85730; 87040; 87635; 93005; 96365; 99285

== ENCOUNTER 2023-06-01 06:35 | Inpatient (IN) | payer OTHER, MEDICARE ==
[2023-06-01 06:58] LABS: Anisocytosis Slight; Basophils % (A) 0 %; Eosinophils # (A) 0.1 k/uL (0-0.7); Eosinophils % (A) 1 %; HCT 29.6 % (39.0-53.0); HGB 9.3 gm/dL (13.0-17.5); Hypochromasia Moderate; Lymphocytes # (A) 0.9 k/uL (1.0-4.8); Lymphocytes % (A) 8 %; MCHC 31.4 g/dL (31.0-37.0); MCV 101.7 fL (80.0-100.0); Macrocytosis Moderate; Mean Platelet Volume 8.9; Monocytes # (A) 0.6 k/uL (0-1.0); Monocytes % (A) 5 %; Neutrophils # (A) 9.7 k/uL (1.3-7.7); Neutrophils % (A) 85 %; Platelet Count 279 k/uL (150-450); RBC 2.91 m/uL (4.30-5.90); RDW 17.9 % (11.5-15.5); WBC 11.4 k/uL (3.8-10.6)
[2023-06-01 07:07] LABS: INR 0.9 (<1.2); Partial Thromboplastin Time 24.7 sec (22.0-30.0); Prothrombin Time 10.1 sec (10.0-12.5)
--- NOTE | 2023-06-01 07:11 | ED ---
Chest Pain HPI - General Chief Complaint: Chest Pain Stated Complaint: Chest Pain Time Seen by Provider: 06/01/23 06:41 Source: patient, RN notes reviewed, old records reviewed Mode of arrival: EMS Limitations: no limitations - History of Present Illness Initial Comments: 73-year-old male presents emergency department via EMS chief complaint of increasing weakness, chest pain, falls. Patient was hospitalized and discharged yesterday patient states he was in ICU for her pulmonary edema. Patient states that he was extremely weak going home and felt that he should've gone home because he barely can ambulate. He states that he had 2 falls with no significant injuries he states he served chest pain around 6 AM this morning took nitro to alleviate his symptoms. Patient states he has pain all over which is more of a chronic issue he states his own back on from prior infection, surgeries of his groin. He states he did run his peritoneal dialysis last night with no complications. - Related Data Home Medications Medication Instructions Recorded Confirmed Ergocalciferol (Vitamin D2) 1,250 mcg PO Q14D 07/18/17 05/27/23 [Vitamin D2] DULoxetine HCL [Cymbalta] 20 mg PO HS@2200 10/27/20 05/27/23 Melatonin 5 mg PO HS@2200 12/19/20 05/27/23 Sennosides-Docusate Sodium 2 tab PO BID@1000,2200 12/31/20 05/27/23 [Senokot-S] Gabapentin [Neurontin] 100 mg PO TID@1000,1430,2200 01/23/21 05/27/23 Nitroglycerin Sl Tabs [Nitrostat] 0.4 mg SL Q5M PRN 01/23/21 05/27/23 rOPINIRole HCL [Requip] 0.5 mg PO TID@1000,1430,2200 01/23/21 05/27/23 Ondansetron [Zofran] 4 mg PO DAILY PRN 05/08/21 05/27/23 oxyBUTYnin chloride [Ditropan] 5 mg PO HS@2200 06/28/21 05/27/23 Lactulose [Constulose] 10 gm PO DAILY PRN 11/12/21 05/27/23 Nephro-Deepa 1 tab PO DAILY@1000 11/12/21 05/27/23 Omeprazole 40 mg PO BID@1000,2200 11/12/21 05/27/23 Cyanocobalamin [Vitamin B-12] 1,000 mcg PO DAILY@1000 12/14/21 05/27/23 Insulin Glargine,Hum.rec.anlog 25 units SQ HS@219901/12/23 05/27/23 [Lantus Solostar Pen] Sodium Bicarbonate Tab 650 mg PO DAILY@1000 01/12/23 05/27/23 Amiodarone [Cordarone] 200 mg PO DAILY@1430 02/18/23 05/27/23 Calcium Acetate [PhosLo] 1,334 mg PO 5XD 02/18/23 05/27/23 Insulin Aspart [NovoLOG Flexpen] 8 units SQ TID-W/MEALS 02/18/23 05/27/23 Isosorbide Mononitrate ER [Imdur] 30 mg PO DAILY@1000 02/18/23 05/27/23 Ranolazine [Ranexa] 500 mg PO BID@1000,219902/18/23 05/27/23 Metoprolol Tartrate [Lopressor] 12.5 mg PO BID@1000,219902/23/23 05/27/23 Albuterol Nebulized [Ventolin 2.5 mg INHALATION RT-Q4H PRN 04/25/23 05/27/23 Nebulized] Atorvastatin Calcium [Lipitor] 40 mg PO HS@219904/25/23 05/27/23 Benzonatate 100 mg PO BID PRN 04/25/23 05/27/23 Clopidogrel [Plavix] 75 mg PO DAILY@1000 04/25/23 05/27/23 levOCARNitine 330 mg PO BID PRN 04/25/23 05/27/23 oxyCODONE HCL [oxyCODONE HCL (IR)] 5 mg PO DAILY PRN 05/27/23 05/27/23 Previous Rx's Medication Instructions Recorded Acetaminophen Tab [Tylenol] 650 mg PO Q6HR PRN tab 01/16/23 Midodrine [ProAmatine] 10 mg PO AC-TID #180 tab 05/31/23 Allergies Allergy/AdvReac Type Severity Reaction Status Date / Time Iodinated Contrast Media AdvReac CAN'T Verified 05/27/23 21:37 TAKE, RENAL DISEASE Iodine and Iodide Containing AdvReac CAN'T Verified 05/27/23 21:37 Produc TAKE, RENAL DISEASE Review of Systems ROS Statement: Those systems with pertinent positive or pertinent negative responses have been documented in the HPI. ROS Other: All systems not noted in ROS Statement are negative. EKG Findings - EKG Comments: EKG Findings:: EKG performed at 6:37 sinus rhythm with a rate of 71. 205 QRS 178 QT/QTC 491/513 noted left bundle which is noted on prior EKG. - EKG Results: EKG: interpreted by [facility] Past Medical History Past Medical History: Coronary Artery Disease (CAD), Chest Pain / Angina, Heart Failure, COPD, Diabetes Mellitus, Dialysis, GERD/Reflux, GI Bleed, Hyperlipidemia, Hypertension, Myocardial Infarction ([place]), Pneumonia, Renal Disease, Vascular Disorder Additional Past Medical History / Comment(s): Lower GI bleeds/suspect micro bleeds in intestine, occasional abdominal bloating, IDDM type II, neuropathy bilateral feet, ESRD with peritoneal dialysis ((cycler at night for 5 hours), past hemodialysis/spouse states she was told L upper arm fistula is plugged again, chronic anemia/transfusion of blood/iron, past partial SBO, benign colon polyps, chronic low back pain with bilateral sciatica, PVD, RLS, vertigo, insomnia, 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 Last Myocardial Infarction Date:: 03/2020 History of Any Multi-Drug Resistant Organisms: None Reported Past Surgical History: Cholecystectomy, Heart Catheterization With Stent Additional Past Surgical History / Comment(s): 03/25/20 R sublclavian mediport, R carotid stent done in [place], EGD/colonoscopy, endoscopic capsule, ORIF left wrist, aortagram, bilateral leg revascularizations/stents, left upper arm fistula and on 12/15/21 had thrombectomy balloon angioplasty of L arm fistula, peritoneal dialysis catheter removal and insertion (11/23/21). Past Anesthesia/Blood Transfusion Reactions: No Reported Reaction Additional Past Anesthesia/Blood Transfusion Reaction / Comment(s): Pt has had multiple blood transfusions without reaction. Date of Last Stent Placement:: 03/2021 Past Psychological History: No Psychological Hx Reported, PTSD Smoking Status: Current every day smoker Past Alcohol Use History: None Reported Past Drug Use History: None Reported - Past Family History Father History Unknown: Yes Mother Family Medical History: Cancer Additional Family Medical History / Comment(s): Mother from metastatic cancer pelvic origin. General Exam Limitations: no limitations Course Vital Signs 06/01/23 06:44 Temperature 97.8 F Pulse Rate 69 Respiratory 18 Rate Blood Pressure 101/55 O2 Sat by Pulse 97 Oximetry Chest Pain MDM - MDM Was pt. sent in by a medical professional or institution (, PA, RN REVIEW, urgent care, hospital, or residential...) When possible be specific @ -No Did you speak to anyone other than the patient for history (EMS, parent, family, police, friend...)? What history was obtained from this source @ -No Did you review nursing and triage notes (agree or disagree)? Why? @ -I reviewed and agree with nursing and triage notes Were old charts reviewed (outside hosp., previous admission, EMS record, old EKG, old radiological studies, urgent care reports/EKG's, residential records)? Report findings @ -Reviewed a recent admission, constipation, Holter studies and EKGs Differential Diagnosis (chest pain, altered mental status, abdominal pain women, abdominal pain men, vaginal bleeding, weakness, fever, dyspnea, syncope, headache, dizziness, GI bleed, back pain, seizure, CVA, palpatations, mental health, musculoskeletal)? @ -Differential Chest Pain: Stable Angina, Unstable Angina, STEMI, NSTEMI Aortic Dissection, Pneumothorax, Musculoskeletal, Esophageal Spasm GERD, Cholecystitis, Pancreatitis, Zoster, this is not meant to be an all-inclusive list. e EKG interpreted by me (3pts min.). @ -As above X-rays interpreted by me (1pt min.). @ -Chest x-ray shows mild pulmonary edema CT interpreted by me (1pt min.). @ -None done U/S interpreted by me (1pt. min.). @ -None done What testing was considered but not performed or refused? (CT, X-rays, U/S, labs)? Why? @ -None What meds were considered but not given or refused? Why? @ -None Did you discuss the management of the patient with other professionals (professionals i.e. , PA, RN REVIEW, lab, RT, psych nurse, high school social studies teacher, mohel, teacher, campus security officer, bilingual case manager)? Give summary @ -Matty Kirby for admission given patient's increasing weakness, multiple falls and need for rehab or possible placement patient will have repeat troponin and further evaluation. Was smoking cessation discussed for >3mins.? @ -No Was critical care preformed (if so, how long)? @ -No Were there social determinants of health that impacted care today? How? (Homelessness, low income, unemployed, alcoholism, drug addiction, transportatio n, low edu. Level, literacy, decrease access to med. care, care home, rehab)? @ -No Was there de-escalation of care discussed even if they declined (Discuss DNR or withdrawal of care, Hospice)? DNR status @ -No What co-morbidities impacted this encounter? (DM, HTN, Smoking, COPD, CAD, Cancer, CVA, ARF, Chemo, Hep., AIDS, mental health diagnosis, sleep apnea, morbid obesity)? @ -Chronic kidney disease, COPD Was patient admitted / discharged? Hospital course, mention meds given and route, prescriptions, significant lab abnormalities, going to OR and other pertinent info. @ -Admitted observation for cardiac workup patient chest pain resolved with nitro. Initial troponin is negative. Patient does have elevated BMP which is chronic, pulmonary edema which is been noted on prior imaging. Patient will consult to social work. Undiagnosed new problem with uncertain prognosis? @ -No Drug Therapy requiring intensive monitoring for toxicity (Heparin, Nitro, Insulin, Cardizem)? @ -No Were any procedures done? @ -No Diagnosis/symptom? @ -Chest pain Acute, or Chronic, or Acute on Chronic? @ - acute Uncomplicated (without systemic symptoms) or Complicated (systemic symptoms)? @ -complicated Side effects of treatment? @ -No Exacerbation, Progression, or Severe Exacerbation? @ -No Poses a threat to life or bodily function? How? (Chest pain, [place], [place], pneumonia, PE, COPD, DKA, ARF, appy, cholecystitis, CVA, Diverticulitis, Homicidal, Suicidal, threat to staff... and all critical care pts) @ -Yes possible ACS Disposition Clinical Impression: Chest pain Disposition: ADMITTED IP TO THIS [facility] Condition: Fair Referrals: [facility],Clinic [Primary Care Provider] - 1-2 days Time of Disposition: 07:41
[2023-06-01 07:25] LABS: ALT 30 U/L (4-49); AST 26 U/L (17-59); African American GFR (CKD) 8 (>60 ml/min/1.73 sqM); Albumin 2.6 g/dL (3.5-5.0); Alkaline Phosphatase 164 U/L (38-126); Anion Gap 15 mmol/L; Blood Urea Nitrogen 54 mg/dL (9-20); Calcium 8.4 mg/dL (8.4-10.2); Carbon Dioxide 26 mmol/L (22-30); Chloride 93 mmol/L (98-107); Glucose 134 mg/dL (74-99); Magnesium 1.6 mg/dL (1.6-2.3); Non-African American GFR(CKD) 7 (>60 ml/min/1.73 sqM); Potassium 4.7 mmol/L (3.5-5.1); Sodium 134 mmol/L (137-145); Total Bilirubin 0.5 mg/dL (0.2-1.3); Total Protein 5.5 g/dL (6.3-8.2)
[2023-06-01 07:34] LABS: NT-Pro-B-Type Natriuretic Pept 29900 pg/mL
--- NOTE | 2023-06-01 07:37 | XR ---
EXAMINATION TYPE: XR chest 2V DATE OF EXAM: 06/01/2023 COMPARISON: 05/27/2023 HISTORY: Shortness of breath TECHNIQUE: Frontal and lateral views of the chest are obtained. FINDINGS: Scattered senescent parenchymal changes noted. Hyperinflation compatible with COPD. There is cardiomegaly with pulmonary venous congestion scattered infiltrates. Correlate for congestiv e failure. Mediastinal structures are stable and grossly unremarkable. No evidence for hilar prominence. Degenerative changes dorsal spine. IMPRESSION: 1. There is cardiomegaly with pulmonary venous congestion scattered infiltrates. Correlate for conges tive failure.
[2023-06-01] MEDS ORDERED: ASPIRIN 81 MG PO STA (07:55)
[2023-06-01] MEDS ORDERED: NITROGLYCERIN SL TABS 0.4 MG TAB SUBLINGUAL PRN (07:55)
[2023-06-01] MEDS ORDERED: BENZONATATE 100 MG CAP PO PRN (07:57)
[2023-06-01] MEDS ORDERED: LACTULOSE 20 GM/30 ML CUP PO PRN (07:57)
[2023-06-01] MEDS ORDERED: levOCARNitine (WITH SUGAR) 100 MG/ML BOTTLE PO PRN (07:57)
[2023-06-01] MEDS ORDERED: DEXTROSE 50% SYRINGE 50 ML IVP PRN ×2 (08:02)
[2023-06-01] MEDS: CLOPIDOGREL 75 MG TAB PO SCH (09:53)
[2023-06-01] MEDS: CYANOCOBALAMIN 500 MCG TAB PO SCH (09:53)
[2023-06-01] MEDS: ISOSORBIDE MONONITRATE ER 30 MG TAB.ER.24H PO SCH (09:54)
[2023-06-01] MEDS: GABAPENTIN 100 MG CAP PO SCH ×3 (09:54→22:49)
[2023-06-01] MEDS: SENNOSIDES-DOCUSATE SODIUM 1 EACH TAB PO SCH ×2 (09:55→22:49)
[2023-06-01] MEDS: METOPROLOL TARTRATE 12.5 MG TAB PO SCH ×2 (09:55→22:50)
[2023-06-01] MEDS: RANOLAZINE 500 MG TAB.ER.12H PO SCH ×2 (09:55→22:48)
[2023-06-01] MEDS: PANTOPRAZOLE 40 MG TABLET PO SCH ×2 (09:55→22:48)
[2023-06-01] MEDS: SODIUM BICARBONATE TAB 650 MG TAB PO SCH (09:55)
--- NOTE | 2023-06-01 10:41 | P.NPCON ---
History of Present Illness - Reason for Consult end stage renal disease - History of Present Illness Patient is a 73-year-old male with end-stage renal disease maintained on peritoneal dialysis. He was just discharged from the hospital yesterday and came back with significant weakness. Patient also states that he fell while trying to get into his wheelchair. He was recently hospitalized for volume overload, hyperkalemia and malfunctioning PD catheter at home. However that PD catheter worked well during his hospitalization and volume status had improved significantly. Patient has had a recent necrotizing infection in the right groin status post multiple surgeries and currently with a wound VAC. This has been fairly stable. Patient will need to be switched to hemodialysis while he is in rehab/ECF. We will continue with the PD for now. Consult will be placed for vascular surgery for hemodialysis catheter placement. Review of Systems As per HPI Past Medical History Past Medical History: Coronary Artery Disease (CAD), Chest Pain / Angina, Heart Failure, COPD, Diabetes Mellitus, Dialysis, GERD/Reflux, GI Bleed, Hyperlip idemia, Hypertension, Myocardial Infarction ([place]), Pneumonia, Renal Disease, Vascular Disorder Additional Past Medical History / Comment(s): Lower GI bleeds/suspect micro bleeds in intestine, occasional abdominal bloating, IDDM type II, neuropathy bilateral feet, ESRD with peritoneal dialysis ((cycler at night for 5 hours), past hemodialysis/spouse states she was told L upper arm fistula is plugged again, chronic anemia/transfusion of blood/iron, past partial SBO, benign colon polyps, chronic low back pain with bilateral sciatica, PVD, RLS, vertigo, insomnia, 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 Last Myocardial Infarction Date:: 03/2020 History of Any Multi-Drug Resistant Organisms: None Reported Past Surgical History: Cholecystectomy, Heart Catheterization With Stent Additional Past Surgical History / Comment(s): 03/25/20 R sublclavian mediport, R carotid stent done in [place], EGD/colonoscopy, endoscopic capsule, ORIF left wrist, aortagram, bilateral leg revascularizations/stents, left upper arm fistula and on 12/15/21 had thrombectomy balloon angioplasty of L arm fistula, peritoneal dialysis catheter removal and insertion (11/23/21). Past Anesthesia/Blood Transfusion Reactions: No Reported Reaction Additional Past Anesthesia/Blood Transfusion Reaction / Comment(s): Pt has had multiple blood transfusions without reaction. Date of Last Stent Placement:: 03/2021 Past Psychological History: No Psychological Hx Reported, PTSD Smoking Status: Current every day smoker Past Alcohol Use History: None Reported Past Drug Use History: None Reported - Past Family History Father History Unknown: Yes Mother Family Medical History: Cancer Additional Family Medical History / Comment(s): Mother from metastatic cancer pelvic origin. Medications and Allergies Home Medications Medication Instructions Recorded Confirmed Type Ergocalciferol (Vitamin D2) 1,250 mcg PO Q14D 07/18/17 05/27/23 History [Vitamin D2] DULoxetine HCL [Cymbalta] 20 mg PO HS@2200 10/27/20 05/27/23 History Melatonin 5 mg PO HS@2200 12/19/20 05/27/23 History Sennosides-Docusate Sodium 2 tab PO BID@1000,2200 12/31/20 05/27/23 History [Senokot-S] Gabapentin [Neurontin] 100 mg PO TID@1000,1430,2200 01/23/21 05/27/23 History Nitroglycerin Sl Tabs [Nitrostat] 0.4 mg SL Q5M PRN 01/23/21 05/27/23 History rOPINIRole HCL [Requip] 0.5 mg PO TID@1000,1430,2200 01/23/21 05/27/23 History Ondansetron [Zofran] 4 mg PO DAILY PRN 05/08/21 05/27/23 History oxyBUTYnin chloride [Ditropan] 5 mg PO HS@2200 06/28/21 05/27/23 History Lactulose [Constulose] 10 gm PO DAILY PRN 11/12/21 05/27/23 History Nephro-Deepa 1 tab PO DAILY@1000 11/12/21 05/27/23 History Omeprazole 40 mg PO BID@1000,2200 11/12/21 05/27/23 History Cyanocobalamin [Vitamin B-12] 1,000 mcg PO DAILY@1000 12/14/21 05/27/23 History Insulin Glargine,Hum.rec.anlog 25 units SQ HS@2200 01/12/23 05/27/23 History [Lantus Solostar Pen] Sodium Bicarbonate Tab 650 mg PO DAILY@1000 01/12/23 05/27/23 History Acetaminophen Tab [Tylenol] 650 mg PO Q6HR PRN tab 01/16/23 05/27/23 Rx Amiodarone [Cordarone] 200 mg PO DAILY@1430 02/18/23 05/27/23 History Calcium Acetate [PhosLo] 1,334 mg PO 5XD 02/18/23 05/27/23 History Insulin Aspart [NovoLOG Flexpen] 8 units SQ TID-W/MEALS 02/18/23 05/27/23 History Isosorbide Mononitrate ER [Imdur] 30 mg PO DAILY@1000 02/18/23 05/27/23 History Ranolazine [Ranexa] 500 mg PO BID@1000,2200 02/18/23 05/27/23 History Metoprolol Tartrate [Lopressor] 12.5 mg PO BID@1000,2200 02/23/23 05/27/23 History Albuterol Nebulized [Ventolin 2.5 mg INHALATION RT-Q4H PRN 04/25/23 05/27/23 History Nebulized] Atorvastatin Calcium [Lipitor] 40 mg PO HS@2200 04/25/23 05/27/23 History Benzonatate 100 mg PO BID PRN 04/25/23 05/27/23 History Clopidogrel [Plavix] 75 mg PO DAILY@1000 04/25/23 05/27/23 History levOCARNitine 330 mg PO BID PRN 04/25/23 05/27/23 History oxyCODONE HCL [oxyCODONE HCL (IR)] 5 mg PO DAILY PRN 05/27/23 05/27/23 History Midodrine [ProAmatine] 10 mg PO AC-TID #180 tab 05/31/23 Rx Allergies Allergy/AdvReac Type Severity Reaction Status Date / Time Iodinated Contrast Media AdvReac CAN'T Verified 05/27/23 21:37 TAKE, RENAL DISEASE Iodine and Iodide Containing AdvReac CAN'T Verified 05/27/23 21:37 Produc TAKE, RENAL DISEASE Physical Exam Vitals: Vital Signs Temp Pulse Resp BP Pulse Ox 06/01/23 10:05 97.9 F 69 18 155/61 95 06/01/23 06:44 97.8 F 69 18 101/55 97 Intake and Output 1006/01/23 06/01/23 22:59 06:59 14:59 Other: Weight 81.647 kg Patient is awake, comfortable, in no acute distress Alert oriented 3 Examination of the heart S1 and S2 Examination of the lungs bilateral breath sounds are heard Abdomen is soft nontender Right groin wound VAC Examination of lower extremities shows no significant edema COUNTERINTELLIGENCE AGENT exam grossly intact Results - Lab Results Most recent lab results Calcium 8.4 mg/dL (8.4-10.2) 06/01/23 06:49 Magnesium 1.6 mg/dL (1.6-2.3) 06/01/23 06:49 06/01/23 06:49 06/01/23 06:49 Assessment and Plan Assessment: 1. End-stage renal disease maintained on peritoneal dialysis. Patient will need to be switched to temporary hemodialysis while he is in rehab. 2. Volume overload currently improved 3. Status post recent surgeries to the right groin for necrotizing infection status post wound VAC 4. Generalized weakness and debility, patient will need to be discharged to rehab 5. Anemia of chronic disease status post IV iron last admission Plan: Continue with peritoneal dialysis for now. Consult vascular surgery for hemodialysis catheter placement while in rehab Add [place] Thank you for the consultation. We will continue to follow the patient with you during his hospitalization.
--- NOTE | 2023-06-01 12:06 | P.HPIM ---
History of Present Illness H&P Date: 06/01/23 History of Presenting Illness: Patient is a 73-year-old male male with a past medical history of ESRD on peritoneal dialysis, chronic systolic heart failure with previously known EF of 35%, CAD with previous stents, hypertension, hyperlipidemia, and diabetes mellitus. Presented to the emergency department with a chief complaint of increasing weakness, chest pain, and fall at home. Patient recently underwent hospitalization and ICU admission for pulmonary edema. Patient was discharged home on 05/31/23. Reports after going home he had difficulties ambulating resulting in fall due to weakness. Patient reports he was encouraged to go to a rehab facility but will not do hemodialysis and wanted to be discharged back home to continue his peritoneal dialysis. Patient reports this morning he developed some chest pain to his midsternal chest around 6 AM so he came back to the hospital for evaluation. Patient reports overall feeling weak, fatigued, and a pressure-like sensation to his midsternal chest accompanied by mild shortness of breath. He denies having any headache, lightheadedness, dizziness, palpitations, cough or congestion, fever or chills, nausea or vomiting, or experiencing any numbness/tingling/focal weakness/swelling in his extremities. Patient reports last receiving peritoneal dialysis last night. Upon arrival to our facility patient underwent full evaluation. EKG was completed showing normal sinus rhythm at 71 bpm with left bundle branch block. CBC showing mild leukocytosis with WBC count of 11.4, macrocytic anemia with hemoglobin of 9.3. BMP showing sodium 134, chloride 93, and elevated renal function consistent with ESRD with BUN 54, creatinine 7.36, and GFR of 7. Magnesium was low at 1.6. Alkaline phosphatase elevated at 164. Troponin 0.026 and pro-BMP 29,900. Patient admitted under our services to observation unit for chest pain with consultation to cardiology and nephrology. Review of systems: Pertinent positives and negatives as discussed in HPI, a complete review of systems was performed and all other systems are negative. Physical exam: Vital signs reviewed and stable. General: Nontoxic, no distress and appears stated age. Derm: Skin warm and dry, normal coloration for ethnicity. Head: Atraumatic, normocephalic and symmetric. Eyes: EOMs intact, no lid lag, and anicteric sclera Mouth: no lip lesions, mucus membranes moist Cardiovascular: regular rate and rhythm with normal S1S2, systolic murmur, po sitive posterior tibial pulses bilaterally, and cap refill < 2 seconds. Lungs: Respirations even, regular, and unlabored on room air. Lungs CTA bilaterally, no rhonchi, no rales, no wheezing, and no accessory muscle usage. Abdominal: soft and distended, nontender to palpation, no guarding, peritoneal dialysis catheter in place. Wound VAC in place right groin. Ext: ROM intact. No gross muscle atrophy, no edema, no contractures Neuro: Speech clear, face symmetrical and CN II-XII grossly intact with no noted focal neuro deficits Psych: Alert and oriented to person, place, time, and situation. Appropriate and pleasant affect. Assessment and Plan of Care: Chest pain, rule out acute coronary event History of CAD status post stents Hypertension Hyperlipidemia -Cardiology consult, appreciate further recommendations -Telemetry monitoring -Trend troponins -Cardiac diet, NPO at midnight -Continue daily medication regimen with aspirin 81 mg daily, atorvastatin 40 mg daily, Plavix 75 mg daily, isosorbide mononitrate 30 mg daily, metoprolol 12.5 mg twice daily, midodrine 10 mg 3 times daily with meals. Generalized weakness and debility -Progressively worsening, highly recommend discharge to residential facility for rehab however patient adamant that he will not be placed on hemodialysis and will go home to continue his peritoneal dialysis. ESRD -Nephrology consulted for continuation of peritoneal dialysis -Continuation of sodium bicarb 650 mg daily Insulin-dependent diabetes mellitus Continuation of scheduled NovoLog 8 units 3 times daily with meals and long- acting Levemir 25 units nightly. In addition. Patient placed on glycemic protocol for NovoLog sliding scale. Status post recent surgeries to right groin secondary to necrotizing infection -Wound care consulted for management of wound VAC CODE STATUS: Full code DVT prophylaxis: Heparin Discussed with: Pt, RN, ED physician,, and director of billing Anticipated discharge date: Clinical course to determine Anticipated discharge place: Home with home care versus rehab Patient was seen independently by Nurse Practitioner. This document was prepared using [employer] dictation software. Please allow for errors in coater brake linings while rare they do occur. Past Medical History Past Medical History: Coronary Artery Disease (CAD), Chest Pain / Angina, Heart Failure, COPD, Diabetes Mellitus, Dialysis, GERD/Reflux, GI Bleed, Hyperlipidemia, Hypertension, Myocardial Infarction ([place]), Pneumonia, Renal Disease, Vascular Disorder Additional Past Medical History / Comment(s): Lower GI bleeds/suspect micro bleeds in intestine, occasional abdominal bloating, IDDM type II, neuropathy bilateral feet, ESRD with peritoneal dialysis ((cycler at night for 5 hours), past hemodialysis/spouse states she was told L upper arm fistula is plugged again, chronic anemia/transfusion of blood/iron, past partial SBO, benign colon polyps, chronic low back pain with bilateral sciatica, PVD, RLS, vertigo, insomnia, 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 Last Myocardial Infarction Date:: 03/2020 History of Any Multi-Drug Resistant Organisms: None Reported Past Surgical History: Cholecystectomy, Heart Catheterization With Stent Additional Past Surgical History / Comment(s): 03/25/20 R sublclavian mediport, R carotid stent done in [place], EGD/colonoscopy, endoscopic capsule, ORIF left wrist, aortagram, bilateral leg revascularizations/stents, left upper arm fistula and on 12/15/21 had thrombectomy balloon angioplasty of L arm fistula, peritoneal dialysis catheter removal and insertion (11/23/21). Past Anesthesia/Blood Transfusion Reactions: No Reported Reaction Additional Past Anesthesia/Blood Transfusion Reaction / Comment(s): Pt has had multiple blood transfusions without reaction. Date of Last Stent Placement:: 03/2021 Past Psychological History: No Psychological Hx Reported, PTSD Smoking Status: Current every day smoker Past Alcohol Use History: None Reported Past Drug Use History: None Reported - Past Family History Father History Unknown: Yes Mother Family Medical History: Cancer Additional Family Medical History / Comment(s): Mother from metastatic cancer pelvic origin. Medications and Allergies Home Medications Medication Instructions Recorded Confirmed Type Ergocalciferol (Vitamin D2) 1,250 mcg PO Q14D 07/18/17 06/01/23 History [Vitamin D2] DULoxetine HCL [Cymbalta] 20 mg PO HS@2200 10/27/20 06/01/23 History Melatonin 5 mg PO HS@2200 12/19/20 06/01/23 History Sennosides-Docusate Sodium 2 tab PO BID@1000,2200 12/31/20 06/01/23 History [Senokot-S] Gabapentin [Neurontin] 100 mg PO TID@1000,1430,2200 01/23/21 06/01/23 History Nitroglycerin Sl Tabs [Nitrostat] 0.4 mg SL Q5M PRN 01/23/21 06/01/23 History rOPINIRole HCL [Requip] 0.5 mg PO TID@1000,1430,0 01/23/21 06/01/23 History Ondansetron [Zofran] 4 mg PO DAILY PRN 05/08/21 06/01/23 History oxyBUTYnin chloride [Ditropan] 5 mg PO HS@2200 06/28/21 06/01/23 History Lactulose [Constulose] 10 gm PO DAILY PRN 11/12/21 06/01/23 History Nephro-Deepa 1 tab PO DAILY@1000 11/12/21 06/01/23 History Omeprazole 40 mg PO BID@1000,219911/12/21 06/01/23 History Cyanocobalamin [Vitamin B-12] 1,000 mcg PO DAILY@1000 12/14/21 06/01/23 History Insulin Glargine,Hum.rec.anlog 25 units SQ HS@219901/12/23 06/01/23 History [Lantus Solostar Pen] Sodium Bicarbonate Tab 650 mg PO DAILY@1000 01/12/23 06/01/23 History Acetaminophen Tab [Tylenol] 650 mg PO Q6HR PRN tab 01/16/23 06/01/23 Rx Amiodarone [Cordarone] 200 mg PO DAILY@1430 02/18/23 06/01/23 History Calcium Acetate [PhosLo] 1,334 mg PO 5XD 02/18/23 06/01/23 History Insulin Aspart [NovoLOG Flexpen] 8 units SQ TID-W/MEALS 02/18/23 06/01/23 History Isosorbide Mononitrate ER [Imdur] 30 mg PO DAILY@1000 02/18/23 06/01/23 History Ranolazine [Ranexa] 500 mg PO BID@1000,219902/18/23 06/01/23 History Metoprolol Tartrate [Lopressor] 12.5 mg PO BID@1000,2200 02/23/23 06/01/23 History Albuterol Nebulized [Ventolin 2.5 mg INHALATION RT-Q4H PRN 04/25/23 06/01/23 History Nebulized] Atorvastatin Calcium [Lipitor] 40 mg PO HS@2200 04/25/23 06/01/23 History Benzonatate 100 mg PO BID PRN 04/25/23 06/01/23 History Clopidogrel [Plavix] 75 mg PO DAILY@1000 04/25/23 06/01/23 History levOCARNitine 330 mg PO BID PRN 04/25/23 06/01/23 History oxyCODONE HCL [oxyCODONE HCL (IR)] 5 mg PO DAILY PRN 05/27/23 06/01/23 History Midodrine [ProAmatine] 10 mg PO AC-TID #180 tab 05/31/23 06/01/23 Rx Allergies Allergy/AdvReac Type Severity Reaction Status Date / Time Iodinated Contrast Media AdvReac CAN'T Verified 06/01/23 10:57 TAKE, RENAL DISEASE Iodine and Iodide Containing AdvReac CAN'T Verified 06/01/23 10:57 Produc TAKE, RENAL DISEASE Physical Exam Vitals: Vital Signs Temp Pulse Resp BP Pulse Ox 06/01/23 06:44 97.8 F 69 18 101/55 97 Intake and Output 05/31/23 06/01/23 06/01/23 22:59 06:59 14:59 Other: Weight 81.647 kg Results CBC & Chem 7: 06/01/23 06:49 06/01/23 06:49 Labs: Abnormal Lab Results - Last 24 Hours (Table) 06/01/23 06/01/23 Range/Units 06:49 06:49 WBC 11.4 H (3.8-10.6) k/uL RBC 2.91 L (4.30-5.90) m/uL Hgb 9.3 L (13.0-17.5) gm/dL Hct 29.6 L (39.0-53.0) % MCV 101.7 H (80.0-100.0) fL RDW 17.9 H (11.5-15.5) % Neutrophils # 9.7 H (1.3-7.7) k/uL Lymphocytes # 0.9 L (1.0-4.8) k/uL Sodium 134 L (137-145) mmol/L Chloride 93 L (98-107) mmol/L BUN 54 H (9-20) mg/dL Creatinine 7.36 H* (0.66-1.25) mg/dL Glucose 134 H (74-99) mg/dL Alkaline Phosphatase 164 H (38-126) U/L Total Protein 5.5 L (6.3-8.2) g/dL Albumin 2.6 L (3.5-5.0) g/dL
[2023-06-01 12:39] LABS: Glucose,Whole Blood 131 mg/dL (70-110)
[2023-06-01] MEDS: FOLIC ACID-VIT B COMPLEX-VIT C 1 CAP PO SCH (12:53)
[2023-06-01] MEDS: INSULIN ASPART (NovoLOG) 100 UNIT/ML VIAL SQ SCH ×5 (12:53→22:49)
[2023-06-01] MEDS: MIDODRINE 5 MG TAB PO SCH ×2 (12:57→17:42)
[2023-06-01] MEDS: CALCIUM ACETATE 667 MG TAB PO SCH ×3 (12:57→19:57)
--- NOTE | 2023-06-01 13:21 | P.CRDCN ---
History of Present Illness Consult date: 06/01/23 History of present illness: HISTORY OF PRESENTING ILLNESS 73-year-old with end-stage renal disease, on peritoneal dialysis presented to the hospital with generalized weakness He was recently hospitalized for volume overload hyperkalemia and malfunctioning peritoneal dialysis catheter at home. Patient also had recent necrotizing infection in his right groin status post multiple surgeries and currently on wound VAC. Cardiology was consulted due to the concerns of patient remaining of chest pain. Patient reports that he has been significantly weak and he had 2 falls at home. Along with his weakness he has been complaining of on and off pain throughout his body and his chest pain. His ECG shows sinus rhythm with left bundle-branch block. His prior echo cardiac exam shows an EF of 35% with apical hypokinesia. Blood pressure 155/61, pulse 64, creatinine was 7.36 which appears to be chronic. Troponin was normal REVIEW OF SYSTEMS 14 point review of system is negative except what is mentioned above in HPI. PHYSICAL EXAMINATION Vital signs reviewed. Head: Normocephalic. Eyes: Sclerae nonicteric. Neck: Brisk carotid upstroke, elevated JVD Lungs: Clear to auscultation. Heart: Regular rate and rhythm, S1-S2, no S3, no murmur or rub. Abdomen: Soft nontender, peritoneal dialysis catheter Extremities: Swelling in bilateral lower extremity ASSESSMENT Generalized weakness due to uremia and azotemia Metabolic encephalopathy Chronic anemia Atypical chest pain, rule out of acute coronary syndrome Acute on chronic congestive heart failure. HFrEF EF 35% Ischemic cardiac myopathy ESRD on hemodialysis Peripheral arterial disease on low-dose Xarelto Hypertension Hyperlipidemia PLAN No need to repeat an echocardiogram. Last echo from December shows an EF of 35% with apical hypokinesia. Rule out of ACS with negative troponin and no significant changes of his ECG from his baseline. Continue aspirin 81 mg, Plavix 75 mg, Lipitor 80 mg, metoprolol tartrate 25 mg twice a day, amiodarone 200 mg, Ranexa 500 mg, Imdur 30 minutes, Lasix 80 mg daily Past Medical History Past Medical History: Coronary Artery Disease (CAD), Chest Pain / Angina, Heart Failure, COPD, Diabetes Mellitus, Dialysis, GERD/Reflux, GI Bleed, Hyperlipidemia, Hypertension, Myocardial Infarction (CT), Pneumonia, Renal Disease, Vascular Disorder Additional Past Medical History / Comment(s): Lower GI bleeds/suspect micro bleeds in intestine, occasional abdominal bloating, IDDM type II, neuropathy bilateral feet, ESRD with peritoneal dialysis ((cycler at night for 5 hours), past hemodialysis/spouse states she was told L upper arm fistula is plugged again, chronic anemia/transfusion of blood/iron, past partial SBO, benign colon polyps, chronic low back pain with bilateral sciatica, PVD, RLS, vertigo, insomnia, 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 Last Myocardial Infarction Date:: 03/2020 History of Any Multi-Drug Resistant Organisms: None Reported Past Surgical History: Cholecystectomy, Heart Catheterization With Stent Additional Past Surgical History / Comment(s): 03/25/20 R sublclavian mediport, R carotid stent done in [place], EGD/colonoscopy, endoscopic capsule, ORIF left wrist, aortagram, bilateral leg revascularizations/stents, left upper arm fistula and on 12/15/21 had thrombectomy balloon angioplasty of L arm fistula, peritoneal dialysis catheter removal and insertion (11/23/21). Past Anesthesia/Blood Transfusion Reactions: No Reported Reaction Additional Past Anesthesia/Blood Transfusion Reaction / Comment(s): Pt has had multiple blood transfusions without reaction. Date of Last Stent Placement:: 03/2021 Past Psychological History: No Psychological Hx Reported, PTSD Smoking Status: Current every day smoker Past Alcohol Use History: None Reported Past Drug Use History: None Reported - Past Family History Father History Unknown: Yes Mother Family Medical History: Cancer Additional Family Medical History / Comment(s): Mother from metastatic cancer pelvic origin. Medications and Allergies Home Medications Medication Instructions Recorded Confirmed Type Ergocalciferol (Vitamin D2) 1,250 mcg PO Q14D 07/18/17 06/01/23 History [Vitamin D2] DULoxetine HCL [Cymbalta] 20 mg PO HS@2200 10/27/20 06/01/23 History Melatonin 5 mg PO HS@2200 12/19/20 06/01/23 History Sennosides-Docusate Sodium 2 tab PO BID@1000,2200 12/31/20 06/01/23 History [Senokot-S] Gabapentin [Neurontin] 100 mg PO TID@1000,1430,2200 01/23/21 06/01/23 History Nitroglycerin Sl Tabs [Nitrostat] 0.4 mg SL Q5M PRN 01/23/21 06/01/23 History rOPINIRole HCL [Requip] 0.5 mg PO TID@1000,1430,219901/23/21 06/01/23 History Ondansetron [Zofran] 4 mg PO DAILY PRN 05/08/21 06/01/23 History oxyBUTYnin chloride [Ditropan] 5 mg PO HS@219906/28/21 06/01/23 History Lactulose [Constulose] 10 gm PO DAILY PRN 11/12/21 06/01/23 History Nephro-Deepa 1 tab PO DAILY@1000 11/12/21 06/01/23 History Omeprazole 40 mg PO BID@1000,219911/12/21 06/01/23 History Cyanocobalamin [Vitamin B-12] 1,000 mcg PO DAILY@1000 12/14/21 06/01/23 History Insulin Glargine,Hum.rec.anlog 25 units SQ HS@219901/12/23 06/01/23 History [Lantus Solostar Pen] Sodium Bicarbonate Tab 650 mg PO DAILY@1000 01/12/23 06/01/23 History Acetaminophen Tab [Tylenol] 650 mg PO Q6HR PRN tab 01/16/23 06/01/23 Rx Amiodarone [Cordarone] 200 mg PO DAILY@1430 02/18/23 06/01/23 History Calcium Acetate [PhosLo] 1,334 mg PO 5XD 02/18/23 06/01/23 History Insulin Aspart [NovoLOG Flexpen] 8 units SQ TID-W/MEALS 02/18/23 06/01/23 History Isosorbide Mononitrate ER [Imdur] 30 mg PO DAILY@1000 02/18/23 06/01/23 History Ranolazine [Ranexa] 500 mg PO BID@1000,219902/18/23 06/01/23 History Metoprolol Tartrate [Lopressor] 12.5 mg PO BID@1000,219902/23/23 06/01/23 History Albuterol Nebulized [Ventolin 2.5 mg INHALATION RT-Q4H PRN 04/25/23 06/01/23 History Nebulized] Atorvastatin Calcium [Lipitor] 40 mg PO HS@2200 04/25/23 06/01/23 History Benzonatate 100 mg PO BID PRN 04/25/23 06/01/23 History Clopidogrel [Plavix] 75 mg PO DAILY@1000 04/25/23 06/01/23 History levOCARNitine 330 mg PO BID PRN 04/25/23 06/01/23 History oxyCODONE HCL [oxyCODONE HCL (IR)] 5 mg PO DAILY PRN 05/27/23 06/01/23 History Midodrine [ProAmatine] 10 mg PO AC-TID #180 tab 05/31/23 06/01/23 Rx Allergies Allergy/AdvReac Type Severity Reaction Status Date / Time Iodinated Contrast Media AdvReac CAN'T Verified 06/01/23 10:57 TAKE, RENAL DISEASE Iodine and Iodide Containing AdvReac CAN'T Verified 06/01/23 10:57 Produc TAKE, RENAL DISEASE Physical Exam Vitals: Vital Signs Temp Pulse Resp BP Pulse Ox 06/01/23 10:05 97.9 F 69 18 155/61 95 06/01/23 06:44 97.8 F 69 18 101/55 97 Intake and Output 05/31/23 06/01/23 06/01/23 22:59 06:59 14:59 Other: Weight 81.647 kg Results 06/01/23 06:49 06/01/23 06:49 Cardiac Enzymes 06/01/23 06/01/23 06/01/23 Range/Units 06:49 06:49 08:19 AST 26 (17-59) U/L Troponin I 0.026 0.028 (0.000-0.034) ng/mL 06/01/23 Range/Units 10:26 AST (17-59) U/L Troponin I 0.026 (0.000-0.034) ng/mL Coagulation 06/01/23 Range/Units 06:49 PT 10.1 (10.0-12.5) sec APTT 24.7 (22.0-30.0) sec CBC 06/01/23 Range/Units 06:49 WBC 11.4 H (3.8-10.6) k/uL RBC 2.91 L (4.30-5.90) m/uL Hgb 9.3 L (13.0-17.5) gm/dL Hct 29.6 L (39.0-53.0) % Plt Count 279 (150-450) k/uL Comprehensive Metabolic Panel 06/01/23 Range/Units 06:49 Sodium 134 L (137-145) mmol/L Potassium 4.7 (3.5-5.1) mmol/L Chloride 93 L (98-107) mmol/L Carbon Dioxide 26 (22-30) mmol/L BUN 54 H (9-20) mg/dL Creatinine 7.36 H* (0.66-1.25) mg/dL Glucose 134 H (74-99) mg/dL Calcium 8.4 (8.4-10.2) mg/dL AST 26 (17-59) U/L ALT 30 (4-49) U/L Alkaline Phosphatase 164 H (38-126) U/L Total Protein 5.5 L (6.3-8.2) g/dL Albumin 2.6 L (3.5-5.0) g/dL Current Medications Generic Name Dose Route Start Last Admin Trade Name Freq PRN Reason Stop Dose Admin Acetaminophen 650 mg 06/01/23 07:57 Acetaminophen Tab 325 Mg Tab PO Q6HR PRN Fever and/ or Mild Pain Albuterol Sulfate 2.5 mg 06/01/23 07:57 Albuterol Nebulized 2.5 Mg/3 Ml INHALATION RT-Q4H PRN Shortness Of Breath Amiodarone HCl 200 mg 06/01/23 14:30 Amiodarone 200 Mg Tab PO DAILY@1430 [facility] Aspirin 81 mg 06/02/23 09:00 Aspirin 81 Mg PO DAILY [facility] Atorvastatin Calcium 40 mg 06/01/23 22:00 Atorvastatin 40 Mg Tab PO HS@2200 [facility] Benzonatate 100 mg 06/01/23 07:57 06/01/23 09:56 Benzonatate 100 Mg Cap PO 100 mg BID PRN Administration Cough Calcium Acetate 1,334 mg 06/01/23 11:00 06/01/23 12:57 Calcium Acetate 667 Mg Tab PO 1,334 mg 5XD [facility] Administration Clopidogrel Bisulfate 75 mg 06/01/23 10:00 06/01/23 09:53 Clopidogrel 75 Mg Tab PO 75 mg DAILY@1000 [facility] Administration Cyanocobalamin 1,000 mcg 06/01/23 10:00 06/01/23 09:53 Cyanocobalamin 500 Mcg Tab PO 1,000 mcg DAILY@1000 [facility] Administration Dextrose/Water 25 ml 06/01/23 08:02 Dextrose 50% Syringe 50 Ml IVP PER PROTOCOL PRN Hypoglycemia Protocol Dextrose/Water 50 ml 06/01/23 08:02 Dextrose 50% Syringe 50 Ml IVP PER PROTOCOL PRN Hypoglycemia Protocol Duloxetine HCl 20 mg 06/01/23 22:00 Duloxetine Hcl 20 Mg Capsule. PO HS@2200 [facility] Ergocalciferol 1,250 mcg 06/12/23 09:00 Ergocalciferol 1,250 Mcg (50,000 Iu) Capsule PO Q14D [facility] Gabapentin 100 mg 06/01/23 10:00 06/01/23 09:54 Gabapentin 100 Mg Cap PO 100 mg TID@1000,1430,2200 [facility] Administration Peritoneal Dialysis Solution 62.5 g in 2,500 mls @ 0 mls/hr 06/01/23 12:00 Delflex With 2.5% Dextrose (2,500 Ml) INTRAPERIT Q6HR [facility] Protocol As Directed Insulin Aspart 8 unit 06/01/23 12:30 06/01/23 12:57 Insulin Aspart (Novolog) 100 Unit/Ml Vial SQ 8 unit TID-W/MEALS [facility] Administration Insulin Aspart 0 unit 06/01/23 12:30 06/01/23 12:53 Insulin Aspart (Novolog) 100 Unit/Ml Vial SQ Not Given ACHS [facility] Protocol Insulin Detemir 25 unit 06/01/23 22:00 Insulin Detemir (Levemir) 100 Unit/Ml Syr SQ HS@2200 [facility] Isosorbide Mononitrate 30 mg 06/01/23 10:00 06/01/23 09:54 Isosorbide Mononitrate Er 30 Mg Tab.Er.24h PO 30 mg DAILY@1000 [facility] Administration Lactulose 10 gm 06/01/23 07:57 Lactulose 20 Gm/30 Ml Cup PO DAILY PRN Constipation Levocarnitine 330 mg 06/01/23 07:57 Levocarnitine (With Sugar) 100 Mg/Ml Bottle PO BID PRN [facility] Melatonin 5 mg 06/01/23 22:00 Melatonin 5 Mg Tablet PO HS@2200 [facility] Metoprolol Tartrate 12.5 mg 06/01/23 10:00 06/01/23 09:55 Metoprolol Tartrate 12.5 Mg Tab PO 12.5 mg BID@1000,2200 [facility] Administration Midodrine 10 mg 06/01/23 12:30 06/01/23 12:57 Midodrine 5 Mg Tab PO 10 mg AC-TID [facility] Administration Multivit/Ca Carb/B Cmplx/FA/Prenat 1 each 06/01/23 10:00 06/01/23 12:53 Folic Acid-Vit B Complex-Vit C 1 Cap PO Not Given DAILY@1000 [facility] Nitroglycerin 0.4 mg 06/01/23 07:55 Nitroglycerin Sl Tabs 0.4 Mg Tab SUBLINGUAL Q5M PRN Chest Pain Ondansetron HCl 4 mg 06/01/23 07:57 Ondansetron 4 Mg Tab PO DAILY PRN Nausea And Vomiting Oxybutynin Chloride 5 mg 06/01/23 22:00 Oxybutynin Chloride 5 Mg Tab PO HS@2200 [facility] Oxycodone HCl 5 mg 06/01/23 07:57 Oxycodone Hcl 5 Mg Tab PO DAILY PRN WOUND VAC CHANGES Pantoprazole Sodium 40 mg 06/01/23 10:00 06/01/23 09:55 Pantoprazole 40 Mg Tablet PO 40 mg BID@1000,2200 [facility] Administration Ranolazine 500 mg 06/01/23 10:00 06/01/23 09:55 Ranolazine 500 Mg Tab.Er.12h PO 500 mg BID@1000,2200 [facility] Administration Ropinirole HCl 0.5 mg 06/01/23 10:00 06/01/23 09:55 Ropinirole Hcl 0.25 Mg Tab PO 0.5 mg TID@1000,1430,2200 [facility] Administration Senna/Docusate Sodium 2 each 06/01/23 10:00 06/01/23 09:55 Sennosides-Docusate Sodium 1 Each Tab PO 2 each BID@1000,2200 [facility] Administration Sodium Bicarbonate 650 mg 06/01/23 10:00 06/01/23 09:55 Sodium Bicarbonate Tab 650 Mg Tab PO 650 mg DAILY@1000 [facility] Administration Intake and Output 05/31/23 06/01/23 06/01/23 22:59 06:59 14:59 Other: Weight 81.647 kg 06/01/23 06:49 06/01/23 06:49
[2023-06-01] MEDS: DIALYSIS (PERIT 2.5%) 2,500 ML 62.5 G/2,500 ML BAG INTRAPERIT SCH ×3 (15:55→18:39)
[2023-06-01] MEDS: AMIODARONE 200 MG TAB PO SCH (17:43)
[2023-06-01 17:56] LABS: Glucose,Whole Blood 54 mg/dL (70-110)
[2023-06-01 21:39] LABS: Glucose,Whole Blood 159 mg/dL (70-110)
[2023-06-01] MEDS: oxyBUTYnin chloride 5 MG TAB PO SCH (22:48)
[2023-06-01] MEDS: ATORVASTATIN 40 MG TAB PO SCH (22:48)
[2023-06-01] MEDS: MELATONIN 5 MG TABLET PO SCH (22:48)
[2023-06-01] MEDS: DULoxetine HCL 20 MG CAPSULE.DR PO SCH (22:49)
[2023-06-01] MEDS: INSULIN DETEMIR (LEVEMIR) 100 UNIT/ML SYR SQ SCH (22:49)
[2023-06-01] MEDS: HEPARIN SODIUM,PORCINE 5,000 UNIT/ML 1 ML VIAL SQ SCH (22:50)
[2023-06-02] MEDS: DIALYSIS (PERIT 2.5%) 2,500 ML 62.5 G/2,500 ML BAG INTRAPERIT SCH ×4 (00:18→17:52)
[2023-06-02] MEDS: CALCIUM ACETATE 667 MG TAB PO SCH ×5 (00:48→21:20)
[2023-06-02] MEDS: MELATONIN 5 MG TABLET PO SCH ×2 (03:25→21:20)
[2023-06-02] MEDS: METOPROLOL TARTRATE 12.5 MG TAB PO SCH ×3 (03:26→20:56)
[2023-06-02 07:27] LABS: Anisocytosis Slight; HCT 32.3 % (39.0-53.0); HGB 9.9 gm/dL (13.0-17.5); Hypochromasia Marked; MCH 31.2 pg (25.0-35.0); MCHC 30.6 g/dL (31.0-37.0); MCV 102.2 fL (80.0-100.0); Macrocytosis Moderate; Mean Platelet Volume 8.4; Platelet Count 285 k/uL (150-450); RBC 3.16 m/uL (4.30-5.90); RDW 17.9 % (11.5-15.5); WBC 12.1 k/uL (3.8-10.6)
[2023-06-02 07:46] LABS: African American GFR (CKD) 7 (>60 ml/min/1.73 sqM); Anion Gap 14 mmol/L; Blood Urea Nitrogen 56 mg/dL (9-20); Calcium 8.7 mg/dL (8.4-10.2); Carbon Dioxide 26 mmol/L (22-30); Chloride 92 mmol/L (98-107); Glucose 134 mg/dL (74-99); Magnesium 1.6 mg/dL (1.6-2.3); Non-African American GFR(CKD) 6 (>60 ml/min/1.73 sqM); Potassium 4.6 mmol/L (3.5-5.1); Sodium 132 mmol/L (137-145)
[2023-06-02 08:17] LABS: Glucose,Whole Blood 217 mg/dL (70-110)
[2023-06-02] MEDS ORDERED: ASPIRIN 325 MG TAB PO SCH (09:00)
[2023-06-02] MEDS: MIDODRINE 5 MG TAB PO SCH ×3 (09:31→16:55)
[2023-06-02] MEDS: PANTOPRAZOLE 40 MG TABLET PO SCH ×2 (09:32→21:20)
[2023-06-02] MEDS: SODIUM BICARBONATE TAB 650 MG TAB PO SCH ×2 (09:34→09:35)
[2023-06-02] MEDS: SENNOSIDES-DOCUSATE SODIUM 1 EACH TAB PO SCH ×2 (09:34→21:20)
[2023-06-02] MEDS: CLOPIDOGREL 75 MG TAB PO SCH (09:35)
[2023-06-02] MEDS: CYANOCOBALAMIN 500 MCG TAB PO SCH (09:35)
[2023-06-02] MEDS: HEPARIN SODIUM,PORCINE 5,000 UNIT/ML 1 ML VIAL SQ SCH ×2 (09:35→21:20)
[2023-06-02] MEDS: FOLIC ACID-VIT B COMPLEX-VIT C 1 CAP PO SCH (09:35)
[2023-06-02] MEDS: ASPIRIN 81 MG PO SCH (09:35)
[2023-06-02] MEDS: GABAPENTIN 100 MG CAP PO SCH ×3 (09:36→21:20)
[2023-06-02] MEDS: ISOSORBIDE MONONITRATE ER 30 MG TAB.ER.24H PO SCH (09:36)
[2023-06-02] MEDS: INSULIN ASPART (NovoLOG) 100 UNIT/ML VIAL SQ SCH ×7 (09:43→20:55)
--- NOTE | 2023-06-02 10:47 | P.PN ---
Subjective Progress Note Date: 06/02/23 Progress note: Patient continues to report that he is significantly weak. He denies having any active chest pain chest pressure shortness of breath. HISTORY OF PRESENTING ILLNESS 73-year-old with end-stage renal disease, on peritoneal dialysis presented to the hospital with generalized weakness He was recently hospitalized for volume overload hyperkalemia and malfunctioning peritoneal dialysis catheter at home. Patient also had recent necrotizing infection in his right groin status post multiple surgeries and currently on wound VAC. Cardiology was consulted due to the concerns of patient remaining of chest pain. Patient reports that he has been significantly weak and he had 2 falls at home. Along with his weakness he has been complaining of on and off pain throughout his body and his chest pain. His ECG shows sinus rhythm with left bundle-branch block. His prior echo cardiac exam shows an EF of 35% with apical hypokinesia. Blood pressure 155/61, pulse 64, creatinine was 7.36 which appears to be chronic. Troponin was normal REVIEW OF SYSTEMS 14 point review of system is negative except what is mentioned above in HPI. PHYSICAL EXAMINATION Vital signs reviewed. Head: Normocephalic. Eyes: Sclerae nonicteric. Neck: Brisk carotid upstroke, elevated JVD Lungs: Clear to auscultation. Heart: Regular rate and rhythm, S1-S2, no S3, no murmur or rub. Abdomen: Soft nontender, peritoneal dialysis catheter Extremities: Swelling in bilateral lower extremity ASSESSMENT Generalized weakness due to uremia and azotemia Metabolic encephalopathy Chronic anemia Atypical chest pain, rule out of acute coronary syndrome Acute on chronic congestive heart failure. HFrEF EF 35% Ischemic cardiac myopathy ESRD on hemodialysis Peripheral arterial disease on low-dose Xarelto Hypertension Hyperlipidemia PLAN No need to repeat an echocardiogram. Last echo from December shows an EF of 35% with apical hypokinesia. Rule out of ACS with negative troponin and no significant changes of his ECG from his baseline. Continue aspirin 81 mg, Plavix 75 mg, Lipitor 80 mg, metoprolol tartrate 25 mg twice a day, amiodarone 200 mg, Ranexa 500 mg, Imdur 30 minutes, Lasix 80 mg daily Nephrology team is managing his ESRD. I feel that patient's metabolic encephalopathy and generalized weakness is most likely due to azotemia. Cardiology team will sign off. Please reconsult us in case of any questions Objective - Vital Signs Vital signs: Vital Signs Temp 97.5 F L 06/02/23 08:30 Pulse 63 06/02/23 08:40 Resp 16 06/02/23 08:40 BP 131/64 06/02/23 08:30 Pulse Ox 98 06/02/23 08:30 FiO2 Intake & Output 06/01/23 06/02/23 06/02/23 18:59 06:59 18:59 Weight 53 kg Other: Voiding Method Bedside Commode Bedside Commode Urinal Urinal Diaper Diaper - Labs CBC & Chem 7: 06/02/23 06:18 06/02/23 06:18 Labs: Abnormal Lab Results - Last 24 Hours (Table) 06/01/23 06/01/23 06/01/23 Range/Units 12:38 17:50 21:31 WBC (3.8-10.6) k/uL RBC (4.30-5.90) m/uL Hgb (13.0-17.5) gm/dL Hct (39.0-53.0) % MCV (80.0-100.0) fL MCHC (31.0-37.0) g/dL RDW (11.5-15.5) % Sodium (137-145) mmol/L Chloride (98-107) mmol/L BUN (9-20) mg/dL Creatinine (0.66-1.25) mg/dL Glucose (74-99) mg/dL POC Glucose (mg/dL) 131 H 54 L 159 H (70-110) mg/dL 06/02/23 06/02/23 06/02/23 Range/Units 06:18 06:18 08:16 WBC 12.1 H (3.8-10.6) k/uL RBC 3.16 L (4.30-5.90) m/uL Hgb 9.9 L (13.0-17.5) gm/dL Hct 32.3 L (39.0-53.0) % MCV 102.2 H (80.0-100.0) fL MCHC 30.6 L (31.0-37.0) g/dL RDW 17.9 H (11.5-15.5) % Sodium 132 L (137-145) mmol/L Chloride 92 L (98-107) mmol/L BUN 56 H (9-20) mg/dL Creatinine 7.53 H* (0.66-1.25) mg/dL Glucose 134 H (74-99) mg/dL POC Glucose (mg/dL) 217 H (70-110) mg/dL
--- NOTE | 2023-06-02 11:22 | P.PN ---
Subjective Patient is a 73-year-old male with end-stage renal disease maintained on peritoneal dialysis. He was just discharged from the hospital yesterday and came back with significant weakness. Patient also states that he fell while trying to get into his wheelchair. He was recently hospitalized for volume overload, hyperkalemia and malfunctioning PD catheter at home. However that PD catheter worked well during his hospitalization and volume status had improved significantly. Patient has had a recent necrotizing infection in the right groin status post multiple surgeries and currently with a wound VAC. This has been fairly stable. Patient will need to be switched to hemodialysis while he is in rehab/ECF. We will continue with the PD for now. Consult vascular surgery for hemodialysis catheter placement if patient is discharged to rehab. patient states that she is feeling much better today. Objective - Vital Signs Vital signs: Vital Signs Temp 97.5 F L 06/02/23 08:30 Pulse 63 06/02/23 08:40 Resp 16 06/02/23 08:40 BP 131/64 06/02/23 08:30 Pulse Ox 98 06/02/23 08:30 FiO2 Intake & Output 06/01/23 06/02/23 06/02/23 18:59 06:59 18:59 Weight 53 kg Other: Voiding Method Bedside Commode Bedside Commode Urinal Urinal Diaper Diaper - Exam Patient is awake, comfortable, in no acute distress Alert oriented 3 Examination of the heart S1 and S2 Examination of the lungs bilateral breath sounds are heard Abdomen is soft nontender Right groin wound VAC Examination of lower extremities shows no significant edema [employer] [employer] exam grossly intact - Labs CBC & Chem 7: 06/02/23 06:18 06/02/23 06:18 Labs: Abnormal Lab Results - Last 24 Hours (Table) 06/01/23 06/01/23 06/01/23 Range/Units 12:38 17:50 21:31 WBC (3.8-10.6) k/uL RBC (4.30-5.90) m/uL Hgb (13.0-17.5) gm/dL Hct (39.0-53.0) % MCV (80.0-100.0) fL MCHC (31.0-37.0) g/dL RDW (11.5-15.5) % Sodium (137-145) mmol/L Chloride (98-107) mmol/L BUN (9-20) mg/dL Creatinine (0.66-1.25) mg/dL Glucose (74-99) mg/dL POC Glucose (mg/dL) 131 H 54 L 159 H (70-110) mg/dL 06/02/23 06/02/23 06/02/23 Range/Units 06:18 06:18 08:16 WBC 12.1 H (3.8-10.6) k/uL RBC 3.16 L (4.30-5.90) m/uL Hgb 9.9 L (13.0-17.5) gm/dL Hct 32.3 L (39.0-53.0) % MCV 102.2 H (80.0-100.0) fL MCHC 30.6 L (31.0-37.0) g/dL RDW 17.9 H (11.5-15.5) % Sodium 132 L (137-145) mmol/L Chloride 92 L (98-107) mmol/L BUN 56 H (9-20) mg/dL Creatinine 7.53 H* (0.66-1.25) mg/dL Glucose 134 H (74-99) mg/dL POC Glucose (mg/dL) 217 H (70-110) mg/dL Assessment and Plan Assessment: 1. End-stage renal disease maintained on peritoneal dialysis. Patient will need to be switched to temporary hemodialysis if he is discharged to rehab. 2. Volume overload currently improved 3. Status post recent surgeries to the right groin for necrotizing infection status post wound VAC 4. Generalized weakness and debility, patient will need to be discharged to rehab 5. Anemia of chronic disease status post IV iron last admission Plan: Continue with current PD exchanges. UF about 500-200 ML with each exchange. Consult vascular surgery for hemodialysis catheter placement if dischrged to rehab. Continue Aranesp
[2023-06-02 12:01] LABS: Glucose,Whole Blood 35 mg/dL (70-110)
[2023-06-02 12:18] LABS: Glucose,Whole Blood 93 mg/dL (70-110)
[2023-06-02] MEDS: RANOLAZINE 500 MG TAB.ER.12H PO SCH ×2 (12:27→21:20)
[2023-06-02] MEDS: ACETAMINOPHEN TAB 325 MG TAB PO PRN (12:56)
[2023-06-02] MEDS: AMIODARONE 200 MG TAB PO SCH (12:56)
--- NOTE | 2023-06-02 13:24 | P.PN ---
Subjective Progress Note Date: 06/02/23 Hospital Course: Patient is a 73-year-old male male with a past medical history of ESRD on peritoneal dialysis, chronic systolic heart failure with previously known EF of 35%, CAD with previous stents, hypertension, hyperlipidemia, and diabetes mellitus. Presented to the emergency department with a chief complaint of increasing weakness, chest pain, and fall at home. Patient recently underwent hospitalization and ICU admission for pulmonary edema. Patient was discharged home on 05/31/23. Reports after going home he had difficulties ambulating resulting in recurrent falls due to weakness. Patient reports he was encouraged to go to a rehab facility prior to discharge but will not do hemodialysis and wanted to be discharged back home to continue his peritoneal dialysis. He reports he would've stayed home but developed pain to his midsternal chest so he came back to the hospital for evaluation. Upon arrival to our facility patient underwent full evaluation. EKG was completed showing normal sinus rhythm at 71 bpm with left bundle branch block upon personal review and interpretation. CBC showing mild leukocytosis with WBC count of 11.4, macrocytic anemia with hemoglobin of 9.3. BMP showing sodium 134, chloride 93, and elevated renal function consistent with ESRD with BUN 54, creatinine 7.36, and GFR of 7. Magnesium was low at 1.6. Alkaline phosphatase elevated at 164. Troponin 0.026 and pro-BMP 29,900. Patient admitted under our services to observation unit with telemetry for chest pain with consultation to both cardiology and neph rology. Troponins were trended and flat at 0.026, 0.028, and 0.026. Cardiology evaluated and ruled out out acute coronary event recommending no medication changes at this time and continued outpatient follow-up in their office upon discharge. Nephrology following and managing peritoneal dialysis, manager vehicle is recommending patient be placed on temporary hemodialysis for much-needed discharged to [facility]. Currently patient declining wanting to go to [facility] facility, however aren't reports patient is not even able to feed himself. Patient does have intermittent episodes of confusion but states that his and daughter helps care for him at home. Called and left voice mail message with patient's , Kathi at [phone] regarding recommendations for rehab. Will reattempt to contact patient's family tomorrow. Physical exam: Patient seen and fully evaluated at bedside this morning. Patient reports overall he feels too weak. RN reports patient was unable to feed self breakfast and had to be fed. Discussed progressively worsening weakness and inability to independently complete ADLs with patient. Again discussed recommendations for patient to undergo temporary hemodialysis so he can be placed in [facility] facility for much-needed rehab. Patient states will discuss with family. Vital signs reviewed and stable. General: Nontoxic, no distress and appears stated age. Derm: Skin warm and dry, normal coloration for ethnicity. Head: Atraumatic, normocephalic and symmetric. Eyes: EOMs intact, no lid lag, and anicteric sclera Mouth: no lip lesions, mucus membranes moist Cardiovascular: regular rate and rhythm with normal S1S2, systolic murmur, positive posterior tibial pulses bilaterally, and cap refill < 2 seconds. Lungs: Respirations even, regular, and unlabored on room air. Lungs CTA bilaterally, no rhonchi, no rales, no wheezing, and no accessory muscle usage. Abdominal: soft and distended, nontender to palpation, no guarding, peritoneal dialysis catheter in place. Wound VAC in place right groin. Ext: ROM intact. No gross muscle atrophy, no edema, no contractures Neuro: Speech clear, face symmetrical and CN II-XII grossly intact with no noted focal neuro deficits Psych: Alert and oriented to person, place, time, and situation. Appropriate and pleasant affect. Patient does have episodes of confusion but is currently alert and oriented at this present time. Assessment and Plan of Care: Metabolic encephalopathy secondary to azotemia resulting from endstage renal disease Generalized weakness and debility with recurrent falls at home resulting from physical deconditioning secondary to advanced age and chronic illness Chest pain, acute coronary event ruled out History of CAD status post stents Hypertension Hyperlipidemia -Patient with intermittent confusion and generalized weakness progressively worsening resulting in inability to completely necessary ADLs. -Fall precautions in place. -Consult placed to physical therapy and case management for assistance with possible placement in [facility]. -Troponins were trended and flat at 0.026, 0.028, and 0.026. -Cardiology evaluated and ruled out out acute coronary event recommending no medication changes at this time and continued outpatient follow-up in their office upon discharge. -Nephrology following and managing peritoneal dialysis, manager vehicle is recommending patient be placed on temporary hemodialysis for much-needed discharge to [facility] facility. -Continue Telemetry monitoring -Continue heart healthy renal diet -Continue daily medication regimen with aspirin 81 mg daily, atorvastatin 40 mg daily, Plavix 75 mg daily, isosorbide mononitrate 30 mg daily, metoprolol 12.5 mg twice daily, midodrine 10 mg 3 times daily with meals. ESRD -Nephrology consulted for continuation of peritoneal dialysis -Continuation of sodium bicarb 650 mg daily Insulin-dependent diabetes mellitus Continuation of scheduled NovoLog 8 units 3 times daily with meals and long- acting Levemir 25 units nightly. In addition. Patient placed on glycemic protocol for NovoLog sliding scale. Status post recent I&D and placement of wound VAC to right inguinal mass -Wound care consulted for management of wound VAC to right groin CODE STATUS: Full code DVT prophylaxis: Heparin Discussed with: Pt, RN, cane weigher helper, and manager vehicle. Attempts made at calling patient's and voice mail message was left. Will reattempt to reach out to family tomorrow. Anticipated discharge date: Clinical course to determine Anticipated discharge place: Home with home care versus rehab Patient was seen independently by Nurse Practitioner. This document was prepared using [employer] dictation software. Please allow for errors in cage maker machine while rare they do occur. Objective - Vital Signs Vital signs: Vital Signs Temp 97.5 F L 06/02/23 08:30 Pulse 63 06/02/23 08:30 Resp 16 06/02/23 08:30 BP 131/64 06/02/23 08:30 Pulse Ox 98 06/02/23 08:30 FiO2 Intake & Output 06/01/23 06/02/23 06/02/23 18:59 06:59 18:59 Weight 53 kg Other: Voiding Method Bedside Commode Urinal Diaper - Labs CBC & Chem 7: 06/02/23 06:18 06/02/23 06:18 Labs: Abnormal Lab Results - Last 24 Hours (Table) 06/01/23 06/01/23 06/01/23 Range/Units 12:38 17:50 21:31 WBC (3.8-10.6) k/uL RBC (4.30-5.90) m/uL Hgb (13.0-17.5) gm/dL Hct (39.0-53.0) % MCV (80.0-100.0) fL MCHC (31.0-37.0) g/dL RDW (11.5-15.5) % Sodium (137-145) mmol/L Chloride (98-107) mmol/L BUN (9-20) mg/dL Creatinine (0.66-1.25) mg/dL Glucose (74-99) mg/dL POC Glucose (mg/dL) 131 H 54 L 159 H (70-110) mg/dL 06/02/23 06/02/23 06/02/23 Range/Units 06:18 06:18 08:16 WBC 12.1 H (3.8-10.6) k/uL RBC 3.16 L (4.30-5.90) m/uL Hgb 9.9 L (13.0-17.5) gm/dL Hct 32.3 L (39.0-53.0) % MCV 102.2 H (80.0-100.0) fL MCHC 30.6 L (31.0-37.0) g/dL RDW 17.9 H (11.5-15.5) % Sodium 132 L (137-145) mmol/L Chloride 92 L (98-107) mmol/L BUN 56 H (9-20) mg/dL Creatinine 7.53 H* (0.66-1.25) mg/dL Glucose 134 H (74-99) mg/dL POC Glucose (mg/dL) 217 H (70-110) mg/dL
[2023-06-02 13:27] LABS: Glucose,Whole Blood 41 mg/dL (70-110)
[2023-06-02 13:57] LABS: Glucose,Whole Blood 103 mg/dL (70-110)
[2023-06-02] MEDS: MAGNESIUM SULFATE-D5W PMX 1 GM in DEXTROSE/WATER 1 100ML.BAG IVPB SCH ×2 (15:50→16:54)
[2023-06-02 16:55] LABS: Glucose,Whole Blood 110 mg/dL (70-110)
[2023-06-02 18:55] LABS: Glucose,Whole Blood 108 mg/dL (70-110)
[2023-06-02 20:03] LABS: Glucose,Whole Blood 151 mg/dL (70-110)
[2023-06-02] MEDS: INSULIN DETEMIR (LEVEMIR) 100 UNIT/ML SYR SQ SCH (20:55)
[2023-06-02] MEDS: DULoxetine HCL 20 MG CAPSULE.DR PO SCH (21:20)
[2023-06-02] MEDS: oxyBUTYnin chloride 5 MG TAB PO SCH (21:20)
[2023-06-02] MEDS: ATORVASTATIN 40 MG TAB PO SCH (21:20)
[2023-06-03] MEDS: DIALYSIS (PERIT 2.5%) 2,500 ML 62.5 G/2,500 ML BAG INTRAPERIT SCH ×5 (00:03→23:51)
[2023-06-03] MEDS: CALCIUM ACETATE 667 MG TAB PO SCH ×6 (00:04→23:51)
[2023-06-03 07:40] LABS: Glucose,Whole Blood 284 mg/dL (70-110)
[2023-06-03] MEDS: HEPARIN SODIUM,PORCINE 5,000 UNIT/ML 1 ML VIAL SQ SCH ×2 (08:03→20:50)
[2023-06-03] MEDS: ASPIRIN 81 MG PO SCH (08:03)
[2023-06-03] MEDS: MIDODRINE 5 MG TAB PO SCH ×3 (08:03→18:01)
[2023-06-03] MEDS: METOPROLOL TARTRATE 12.5 MG TAB PO SCH ×2 (08:04→20:51)
[2023-06-03] MEDS: FOLIC ACID-VIT B COMPLEX-VIT C 1 CAP PO SCH (08:04)
[2023-06-03] MEDS: ISOSORBIDE MONONITRATE ER 30 MG TAB.ER.24H PO SCH (08:04)
[2023-06-03] MEDS: GABAPENTIN 100 MG CAP PO SCH ×3 (08:04→20:48)
[2023-06-03] MEDS: RANOLAZINE 500 MG TAB.ER.12H PO SCH ×2 (08:04→20:48)
[2023-06-03] MEDS: SENNOSIDES-DOCUSATE SODIUM 1 EACH TAB PO SCH ×2 (08:04→20:56)
[2023-06-03] MEDS: PANTOPRAZOLE 40 MG TABLET PO SCH ×2 (08:04→20:56)
[2023-06-03] MEDS: CYANOCOBALAMIN 500 MCG TAB PO SCH (08:04)
[2023-06-03] MEDS: SODIUM BICARBONATE TAB 650 MG TAB PO SCH (08:04)
[2023-06-03] MEDS: CLOPIDOGREL 75 MG TAB PO SCH (08:04)
[2023-06-03] MEDS: INSULIN ASPART (NovoLOG) 100 UNIT/ML VIAL SQ SCH ×7 (08:05→20:48)
--- NOTE | 2023-06-03 11:08 | P.PN ---
Subjective Progress Note Date: 06/03/23 Hospital Course: Patient is a 73-year-old male male with a past medical history of ESRD on peritoneal dialysis, chronic systolic heart failure with previously known EF of 35%, CAD with previous stents, hypertension, hyperlipidemia, and diabetes mellitus. Presented to the emergency department with a chief complaint of increasing weakness, chest pain, and fall at home. Patient recently underwent hospitalization and ICU admission for pulmonary edema. Patient was discharged home on 05/31/23. Reports after going home he had difficulties ambulating resulting in recurrent falls due to weakness. Patient reports he was encouraged to go to a rehab facility prior to discharge but will not do hemodialysis and wanted to be discharged back home to continue his peritoneal dialysis. He reports he would've stayed home but developed pain to his midsternal chest so he came back to the hospital for evaluation. Upon arrival to our facility patient underwent full evaluation. EKG was completed showing normal sinus rhythm at 71 bpm with left bundle branch block upon personal review and interpretation. CBC showing mild leukocytosis with WBC count of 11.4, macrocytic anemia with hemoglobin of 9.3. BMP showing sodium 134, chloride 93, and elevated renal function consistent with ESRD with BUN 54, creatinine 7.36, and GFR of 7. Magnesium was low at 1.6. Alkaline phosphatase elevated at 164. Troponin 0.026 and pro-BMP 29,900. Patient admitted under our services to observation unit with telemetry for chest pain with consultation to both cardiology and neph rology. Troponins were trended and flat at 0.026, 0.028, and 0.026. Cardiology evaluated and ruled out out acute coronary event recommending no medication changes at this time and continued outpatient follow-up in their office upon discharge. Nephrology following and managing peritoneal dialysis, automatic hemmer is recommending patient be placed on temporary hemodialysis for much-needed discharged to [facility]. Currently patient declining wanting to go to [facility], however aren't reports patient is not even able to feed himself. Patient does have intermittent episodes of confusion but states that his and daughter helps care for him at home. Called and left voice mail message with patient's , Kathi at [phone] regarding recommendations for rehab. Will reattempt to contact patient's family tomorrow. Physical exam: Patient seen and fully evaluated at bedside this morning. Had long discussion with patient and patient's , patient now in agreement to undergo hemodialysis treatments so he can go to [facility] to receive rehab to enable him to return home. Patient to have permacath placed later today and begin hemodialysis likely tomorrow. chef kitchen manager working on placement at this time. Vital signs reviewed and stable. General: Nontoxic, no distress and appears stated age. Derm: Skin warm and dry, normal coloration for ethnicity. Head: Atraumatic, normocephalic and symmetric. Eyes: EOMs intact, no lid lag, and anicteric sclera Mouth: no lip lesions, mucus membranes moist Cardiovascular: regular rate and rhythm with normal S1S2, systolic murmur, positive posterior tibial pulses bilaterally, and cap refill < 2 seconds. Lungs: Respirations even, regular, and unlabored on room air. Lungs CTA bilaterally, no rhonchi, no rales, no wheezing, and no accessory muscle usage. Abdominal: soft and distended, nontender to palpation, no guarding, peritoneal dialysis catheter in place. Wound VAC in place right groin. Ext: ROM intact. No gross muscle atrophy, no edema, no contractures Neuro: Speech clear, face symmetrical and CN II-XII grossly intact with no noted focal neuro deficits Psych: Alert and oriented to person, place, time, and situation. Appropriate and pleasant affect. Patient does have episodes of confusion but is currently alert and oriented at this present time. Assessment and Plan of Care: Metabolic encephalopathy secondary to azotemia resulting from endstage renal disease Generalized weakness and debility with recurrent falls at home resulting from physical deconditioning secondary to advanced age and chronic illness Chest pain, acute coronary event ruled out History of CAD status post stents Hypertension Hyperlipidemia -Patient with intermittent confusion and generalized weakness progressively worsening resulting in inability to completely necessary ADLs. -Fall precautions in place. -Physical therapy following, recommending patient will need rehab upon discharge -Cardiology evaluated and ruled out out acute coronary event recommending no med ication changes at this time and continued outpatient follow-up in their office upon discharge. -Continue Telemetry monitoring -Continue heart healthy renal diet -Continue daily medication regimen with aspirin 81 mg daily, atorvastatin 40 mg daily, Plavix 75 mg daily, isosorbide mononitrate 30 mg daily, metoprolol 12.5 mg twice daily, midodrine 10 mg 3 times daily with meals. ESRD -Nephrology following for management of dialysis -Order placed for consult to vascular surgery for permacath placement as patient and his are in agreement for transitioning to hemodialysis so patient can go to [facility] as needed for rehab -Continuation of sodium bicarb 650 mg daily Insulin-dependent diabetes mellitus Continuation of scheduled NovoLog 8 units 3 times daily with meals and long- acting Levemir 25 units nightly. In addition. Patient placed on glycemic protocol for NovoLog sliding scale. Status post recent I&D and placement of wound VAC to right inguinal mass -Wound care consulted for management of wound VAC to right groin CODE STATUS: Full code DVT prophylaxis: Heparin Discussed with: Pt, patient's , RN, automatic hemmer, and vascular surgeon. Anticipated discharge date: Awaiting placement Anticipated discharge place: Patient to be discharged to [facility] Patient was seen independently by Nurse Practitioner. This document was prepared using [employer] dictation software. Please allow for errors in import manager while rare they do occur. Objective - Vital Signs Vital signs: Vital Signs Temp 97.6 F 06/03/23 07:34 Pulse 71 06/03/23 07:34 Resp 20 06/03/23 07:34 BP 115/60 06/03/23 07:34 Pulse Ox 96 06/03/23 07:34 FiO2 Intake & Output 06/02/23 06/03/23 06/03/23 18:59 06:59 18:59 Intake Total 160 Output Total 0 0 Balance 160 0 Weight 60.5 kg Intake: Oral 160 Output: Urine 0 0 Other: Voiding Method Bedside Commode Bedside Commode Urinal Diaper # Voids 1 # Bowel Movements 1 - Labs CBC & Chem 7: 06/02/23 06:18 06/02/23 06:18 Labs: Abnormal Lab Results - Last 24 Hours (Table) 06/02/23 06/02/23 06/02/23 Range/Units 06:18 11:57 13:24 POC Glucose (mg/dL) 35 L 41 L (70-110) mg/dL Hemoglobin A1c 6.5 H (<=6.0) % 06/02/23 06/03/23 Range/Units 20:01 07:38 POC Glucose (mg/dL) 151 H 284 H (70-110) mg/dL Hemoglobin A1c (<=6.0) %
[2023-06-03 12:30] LABS: Glucose,Whole Blood 153 mg/dL (70-110)
--- NOTE | 2023-06-03 12:38 | P.CONS ---
History of Present Illness - Reason for Consult Consult date: 06/03/23 wound care - History of Present Illness This is a 73-year-old patient being seen in the ICU for management of a negative pressure wound VAC. Patient previously had a surgical debridement and wound VAC application done at [facility] due to a right inguinal infected mass. He was discharged from there and was home for short period time where wound VAC changes were occurring with home care. Patient has a large ulceration to the right groin with tunneling towards his scrotum. He does have sutures present. Patient has Slough and granulation noted within the wound bed. Ulceration noted to the penis and scrotum with significant amount of slough and nonviable tissue. No granulation noted to the wound bed. Stage 2 pressure ulcer to the sacrum that is tender to the touch. Patient's past medical history significant for peritoneal dialysis, atrial fibrillation, coronary artery disease with post- stents, type 2 diabetes, hypertension, hyperlipidemia and history of GI bleed. Review Of Systems: Constitutional: No fever, no chills, no night sweats. No weight change. No weakness, fatigue or lethargy. No daytime sleepiness. Integumentary:reports wounds, no lesions. No rash or pruritus. No unusual bruising. No change in hair or nails. Physical exam: General Appearance: Alert, cooperative, no distress, appears stated age. Sk in: See HPI all other Skin color, texture, tugor normal, no rashes or lesions. Neurologic: Alert oriented x3 Assessment: 1. Nonhealing ulceration with muscle involvement without necrosis right groin 2. Nonhealing ulceration other site with fat layer exposure 3. Stage 2 sacrum pressure ulcer 4. Diabetes with skin ulceration Plan: 1. Right groin: Apply negative pressure wound VAC with white and black foam at 150 mm/Hg constant pressure change Saturday. To the small ulcerations to the lateral right hip apply absorptive silver moistened. 2. Scrotum and penis ulceration: Apply triad daily. 3. Patient is scheduled to follow with the wound care center at [facility] next week. Thank you for the consultation any questions to contact the wound care center DNP note has been reviewed and discussed with Dr. Ralph and the impression and plan of care has been directed as dictated. Past Medical History Past Medical History: Coronary Artery Disease (CAD), Chest Pain / Angina, Heart Failure, COPD, Diabetes Mellitus, Dialysis, GERD/Reflux, GI Bleed, Hyperlipidemia, Hypertension, Myocardial Infarction (ND), Pneumonia, Renal Disease, Vascular Disorder Additional Past Medical History / Comment(s): Lower GI bleeds/suspect micro bleeds in intestine, occasional abdominal bloating, IDDM type II, neuropathy bilateral feet, ESRD with peritoneal dialysis ((cycler at night for 5 hours), past hemodialysis/spouse states she was told L upper arm fistula is plugged again, chronic anemia/transfusion of blood/iron, past partial SBO, benign colon polyps, chronic low back pain with bilateral sciatica, PVD, RLS, vertigo, insomnia, 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 Last Myocardial Infarction Date:: 03/2020 History of Any Multi-Drug Resistant Organisms: None Reported Past Surgical History: Cholecystectomy, Heart Catheterization With Stent Additional Past Surgical History / Comment(s): 03/25/20 R sublclavian mediport, R carotid stent done in [place], EGD/colonoscopy, endoscopic capsule, ORIF left wrist, aortagram, bilateral leg revascularizations/stents, left upper arm fistula and on 12/15/21 had thrombectomy balloon angioplasty of L arm fistula, peritoneal dialysis catheter removal and insertion (11/23/21). surgery on groin, patient cant remember what type. Past Anesthesia/Blood Transfusion Reactions: No Reported Reaction Additional Past Anesthesia/Blood Transfusion Reaction / Comm: Pt has had multiple blood transfusions without reaction. Date of Last Stent Placement:: 03/2021 Past Psychological History: No Psychological Hx Reported, PTSD Additional Psychological History / Comment(s): Pt resides with his spouse. He has a cane and 2 mobility scooters. 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 He does not drive, his spouse drives and organizes his meds for him. Smoking Status: Current every day smoker Past Alcohol Use History: None Reported Additional Past Alcohol Use History / Comment(s): Pt started smoking in 1965 and is a 1 ppd smoker. Past Drug Use History: None Reported Additional Drug Use History / Comment(s): Occasional Marijuana use. - Past Family History Father History Unknown: Yes Mother Family Medical History: Cancer Additional Family Medical History / Comment(s): Mother from metastatic cancer pelvic origin. Medications and Allergies Home Medications Medication Instructions Recorded Confirmed Type Ergocalciferol (Vitamin D2) 1,250 mcg PO Q14D 07/18/17 06/01/23 History [Vitamin D2] DULoxetine HCL [Cymbalta] 20 mg PO HS@2200 10/27/20 06/01/23 History Melatonin 5 mg PO HS@2200 12/19/20 06/01/23 History Sennosides-Docusate Sodium 2 tab PO BID@1000,2200 12/31/20 06/01/23 History [Senokot-S] Gabapentin [Neurontin] 100 mg PO TID@1000,1430,2200 01/23/21 06/01/23 History Nitroglycerin Sl Tabs [Nitrostat] 0.4 mg SL Q5M PRN 01/23/21 06/01/23 History rOPINIRole HCL [Requip] 0.5 mg PO TID@1000,1430,2200 01/23/21 06/01/23 History Ondansetron [Zofran] 4 mg PO DAILY PRN 05/08/21 06/01/23 History oxyBUTYnin chloride [Ditropan] 5 mg PO HS@2200 06/28/21 06/01/23 History Lactulose [Constulose] 10 gm PO DAILY PRN 11/12/21 06/01/23 History Nephro-Deepa 1 tab PO DAILY@1000 11/12/21 06/01/23 History Omeprazole 40 mg PO BID@1000,2200 11/12/21 06/01/23 History Cyanocobalamin [Vitamin B-12] 1,000 mcg PO DAILY@1000 12/14/21 06/01/23 History Insulin Glargine,Hum.rec.anlog 25 units SQ HS@22001/12/23 06/01/23 History [Lantus Solostar Pen] Sodium Bicarbonate Tab 650 mg PO DAILY@1000 01/12/23 06/01/23 History Acetaminophen Tab [Tylenol] 650 mg PO Q6HR PRN tab 01/16/23 06/01/23 Rx Amiodarone [Cordarone] 200 mg PO DAILY@1430 02/18/23 06/01/23 History Calcium Acetate [PhosLo] 1,334 mg PO 5XD 02/18/23 06/01/23 History Insulin Aspart [NovoLOG Flexpen] 8 units SQ TID-W/MEALS 02/18/23 06/01/23 History Isosorbide Mononitrate ER [Imdur] 30 mg PO DAILY@1000 02/18/23 06/01/23 History Ranolazine [Ranexa] 500 mg PO BID@1000,2200 02/18/23 06/01/23 History Metoprolol Tartrate [Lopressor] 12.5 mg PO BID@1000,2200 02/23/23 06/01/23 History Albuterol Nebulized [Ventolin 2.5 mg INHALATION RT-Q4H PRN 04/25/23 06/01/23 History Nebulized] Atorvastatin Calcium [Lipitor] 40 mg PO HS@219904/25/23 06/01/23 History Benzonatate 100 mg PO BID PRN 04/25/23 06/01/23 History Clopidogrel [Plavix] 75 mg PO DAILY@1000 04/25/23 06/01/23 History levOCARNitine 330 mg PO BID PRN 04/25/23 06/01/23 History oxyCODONE HCL [oxyCODONE HCL (IR)] 5 mg PO DAILY PRN 05/27/23 06/01/23 History Midodrine [ProAmatine] 10 mg PO AC-TID #180 tab 05/31/23 06/01/23 Rx Allergies Allergy/AdvReac Type Severity Reaction Status Date / Time Iodinated Contrast Media AdvReac CAN'T Verified 06/01/23 10:57 TAKE, RENAL DISEASE Iodine and Iodide Containing AdvReac CAN'T Verified 06/01/23 10:57 Produc TAKE, RENAL DISEASE Physical Exam Vitals: Vital Signs Temp Pulse Pulse Resp BP BP Pulse Ox 06/03/23 11:32 97.4 F L 69 18 88/51 100 06/03/23 07:34 97.6 F 71 20 115/60 96 06/03/23 06:30 97.6 F 72 18 111/56 96 06/03/23 00:41 98.2 F 71 18 105/57 98 06/02/23 19:18 97.1 F L 64 18 100/51 96 06/02/23 16:55 70 132/67 06/02/23 14:43 97.6 F 63 18 95/50 95 Intake and Output 10/06/03/23 06/03/23 22:59 06:59 14:59 Output Total 0 Balance 0 Output: Urine 0 Other: Voiding Method Bedside Commode Bedside Commode # Voids 1 # Bowel Movements 1 Weight 60.5 kg Results CBC & Chem 7: 06/02/23 06:18 06/02/23 06:18 Labs: Abnormal Lab Results - Last 24 Hours (Table) 06/02/23 06/02/23 06/02/23 Range/Units 06:18 13:24 20:01 POC Glucose (mg/dL) 41 L 151 H (70-110) mg/dL Hemoglobin A1c 6.5 H (<=6.0) % 06/03/23 06/03/23 Range/Units 07:38 12:29 POC Glucose (mg/dL) 284 H 153 H (70-110) mg/dL Hemoglobin A1c (<=6.0) % Assessment and Plan (1) Non-pressure chronic ulcer of other part of right foot with muscle involvement without evidence of necrosis Current Visit: No Status: Acute Code(s): L97.515 - NON-PRS CHR ULC OTH PRT R FOOT WITH MSL INVL W/O EVD OF NECR SNOMED Code(s): 32495585521064003 (2) Non-pressure chronic ulcer of skin of other sites with fat layer exposed Current Visit: No Status: Acute Code(s): L98.492 - NON-PRS CHRONIC ULCER OF SKIN OF SITES W FAT LAYER EXPOSED SNOMED Code(s): 19904641 (3) Type 2 diabetes mellitus with other skin ulcer Current Visit: No Status: Acute Code(s): E11.622 - TYPE 2 DIABETES MELLITUS WITH OTHER SKIN ULCER; L98.499 - NON-PRESSURE CHRONIC ULCER OF SKIN OF SITES W UNSP SEVERITY SNOMED Code(s): 500858650 (4) Stage II pressure ulcer of sacral region Current Visit: Yes Status: Acute Code(s): L89.152 - PRESSURE ULCER OF SACRAL REGION, STAGE 2 SNOMED Code(s): 02933720375637
--- NOTE | 2023-06-03 12:53 | P.PN ---
Subjective Patient is seen in follow-up for end-stage renal disease. He is maintained on peritoneal dialysis. No problems with PD exchanges. No active complaints. Wants to go to rehab. Vital signs are stable. General: No acute distress. HEENT: Head exam is unremarkable. LUNGS: No audible rhonchi or wheezes. HEART: Rate and Rhythm are regular. ABDOMEN: Nontender. EXTREMITITES: 1+ edema. Objective - Vital Signs Vital signs: Vital Signs Temp 97.4 F L 06/03/23 11:32 Pulse 69 06/03/23 11:32 Resp 18 06/03/23 11:32 BP 88/51 06/03/23 11:32 Pulse Ox 100 06/03/23 11:32 FiO2 Intake & Output 06/02/23 06/03/23 06/03/23 18:59 06:59 18:59 Intake Total 160 Output Total 0 0 Balance 160 0 Weight 60.5 kg Intake: Oral 160 Output: Urine 0 0 Other: Voiding Method Bedside Commode Bedside Commode Bedside Commode Urinal Diaper # Voids 1 # Bowel Movements 1 - Labs CBC & Chem 7: 06/02/23 06:18 06/02/23 06:18 Labs: Abnormal Lab Results - Last 24 Hours (Table) 06/02/23 06/02/23 06/02/23 Range/Units 06:18 13:24 20:01 POC Glucose (mg/dL) 41 L 151 H (70-110) mg/dL Hemoglobin A1c 6.5 H (<=6.0) % 06/03/23 06/03/23 Range/Units 07:38 12:29 POC Glucose (mg/dL) 284 H 153 H (70-110) mg/dL Hemoglobin A1c (<=6.0) % Assessment and Plan Plan: Assessment: 1. End-stage renal disease maintained on peritoneal dialysis. 2. Chronic kidney disease mineral bone disease maintained on PhosLo. 3. Diabetes mellitus. 4. Coronary disease with prior stenting. 5. Generalized debility. 6. Right inguinal infection status post incision and drainage of [facility] with wound VAC placement. Plan: Maintain current PD changes. Check iron studies. Add Aranesp. Patient will be transitioned to temporary hemodialysis if goes to subacute re hab. Discussed with patient and his present at bedside in detail. They are agreeable.
--- NOTE | 2023-06-03 12:59 | P.GSCN ---
History of Present Illness History of present illness: 73-year-old gentleman history of 4 chronic renal failure on peritoneal dialysis. Patient will be going to group home facility and he had consulted for placement of a permanent dialysis catheter. Patient has history of diabetes chronic renal failure right groin necrotizing infection had a surgery recently patient care is on Plavix and aspirin Neck examination neck is supple no bruit appreciated Chest is clear good and both lungs first and second sound present Abdomen patient has a Dialysis catheter no peritoneal sign Plan is placement of a dialysis catheter risk and complication discussed we will arrange for dialysis catheter placement Past Medical History Past Medical History: Coronary Artery Disease (CAD), Chest Pain / Angina, Heart Failure, COPD, Diabetes Mellitus, Dialysis, GERD/Reflux, GI Bleed, Hyperlipidemia, Hypertension, Myocardial Infarction (HI), Pneumonia, Renal Disease, Vascular Disorder Additional Past Medical History / Comment(s): Lower GI bleeds/suspect micro bleeds in intestine, occasional abdominal bloating, IDDM type II, neuropathy bilateral feet, ESRD with peritoneal dialysis ((cycler at night for 5 hours), past hemodialysis/spouse states she was told L upper arm fistula is plugged again, chronic anemia/transfusion of blood/iron, past partial SBO, benign colon polyps, chronic low back pain with bilateral sciatica, PVD, RLS, vertigo, insomnia, 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 Last Myocardial Infarction Date:: 03/2020 History of Any Multi-Drug Resistant Organisms: None Reported Past Surgical History: Cholecystectomy, Heart Catheterization With Stent Additional Past Surgical History / Comment(s): 03/25/20 R sublclavian mediport, R carotid stent done in [place], EGD/colonoscopy, endoscopic capsule, ORIF left wrist, aortagram, bilateral leg revascularizations/stents, left upper arm fistula and on 12/15/21 had thrombectomy balloon angioplasty of L arm fistula, peritoneal dialysis catheter removal and insertion (11/23/21). surgery on groin, patient cant remember what type. Past Anesthesia/Blood Transfusion Reactions: No Reported Reaction Additional Past Anesthesia/Blood Transfusion Reaction / Comm: Pt has had multiple blood transfusions without reaction. Date of Last Stent Placement:: 03/2021 Past Psychological History: No Psychological Hx Reported, PTSD Additional Psychological History / Comment(s): Pt resides with his spouse. He has a cane and 2 mobility scooters. He is a [employer] and served 2 tours in [email or web address]. He does not drive, his spouse drives and organizes his meds for him. Smoking Status: Current every day smoker Past Alcohol Use History: None Reported Additional Past Alcohol Use History / Comment(s): Pt started smoking in 1964 and is a 1 ppd smoker. Past Drug Use History: None Reported Additional Drug Use History / Comment(s): Occasional Marijuana use. - Past Family History Father History Unknown: Yes Mother Family Medical History: Cancer Additional Family Medical History / Comment(s): Mother from metastatic cancer pelvic origin. Medications and Allergies Home Medications Medication Instructions Recorded Confirmed Type Ergocalciferol (Vitamin D2) 1,250 mcg PO Q14D 07/18/17 06/01/23 History [Vitamin D2] DULoxetine HCL [Cymbalta] 20 mg PO HS@2200 10/27/20 06/01/23 History Melatonin 5 mg PO HS@2200 12/19/20 06/01/23 History Sennosides-Docusate Sodium 2 tab PO BID@1000,2200 12/31/20 06/01/23 History [Senokot-S] Gabapentin [Neurontin] 100 mg PO TID@1000,1430,2200 01/23/21 06/01/23 History Nitroglycerin Sl Tabs [Nitrostat] 0.4 mg SL Q5M PRN 01/23/21 06/01/23 History rOPINIRole HCL [Requip] 0.5 mg PO TID@1000,1430,2200 01/23/21 06/01/23 History Ondansetron [Zofran] 4 mg PO DAILY PRN 05/08/21 06/01/23 History oxyBUTYnin chloride [Ditropan] 5 mg PO HS@2200 06/28/21 06/01/23 History Lactulose [Constulose] 10 gm PO DAILY PRN 11/12/21 06/01/23 History Nephro-Deepa 1 tab PO DAILY@1000 11/12/21 06/01/23 History Omeprazole 40 mg PO BID@1000,2200 11/12/21 06/01/23 History Cyanocobalamin [Vitamin B-12] 1,000 mcg PO DAILY@1000 12/14/21 06/01/23 History Insulin Glargine,Hum.rec.anlog 25 units SQ HS@2200 01/12/23 06/01/23 History [Lantus Solostar Pen] Sodium Bicarbonate Tab 650 mg PO DAILY@1000 01/12/23 06/01/23 History Acetaminophen Tab [Tylenol] 650 mg PO Q6HR PRN tab 01/16/23 06/01/23 Rx Amiodarone [Cordarone] 200 mg PO DAILY@1430 02/18/23 06/01/23 History Calcium Acetate [PhosLo] 1,334 mg PO 5XD 02/18/23 06/01/23 History Insulin Aspart [NovoLOG Flexpen] 8 units SQ TID-W/MEALS 02/18/23 06/01/23 History Isosorbide Mononitrate ER [Imdur] 30 mg PO DAILY@1000 02/18/23 06/01/23 History Ranolazine [Ranexa] 500 mg PO BID@1000,2200 02/18/23 06/01/23 History Metoprolol Tartrate [Lopressor] 12.5 mg PO BID@1000,2200 02/23/23 06/01/23 History Albuterol Nebulized [Ventolin 2.5 mg INHALATION RT-Q4H PRN 04/25/23 06/01/23 History Nebulized] Atorvastatin Calcium [Lipitor] 40 mg PO HS@2200 04/25/23 06/01/23 History Benzonatate 100 mg PO BID PRN 04/25/23 06/01/23 History Clopidogrel [Plavix] 75 mg PO DAILY@1000 04/25/23 06/01/23 History levOCARNitine 330 mg PO BID PRN 04/25/23 06/01/23 History oxyCODONE HCL [oxyCODONE HCL (IR)] 5 mg PO DAILY PRN 05/27/23 06/01/23 History Midodrine [ProAmatine] 10 mg PO AC-TID #180 tab 05/31/23 06/01/23 Rx Allergies Allergy/AdvReac Type Severity Reaction Status Date / Time Iodinated Contrast Media AdvReac CAN'T Verified 06/01/23 10:57 TAKE, RENAL DISEASE Iodine and Iodide Containing AdvReac CAN'T Verified 06/01/23 10:57 Produc TAKE, RENAL DISEASE Surgical - Exam Vital Signs Temp Pulse Resp BP Pulse Ox 97.8 F 69 18 101/55 97 06/01/23 06:44 06/01/23 06:44 06/01/23 06:44 06/01/23 06:44 06/01/23 06:44 Results - Labs 06/02/23 06:18 06/02/23 06:18 Abnormal Lab Results - Last 24 Hours (Table) 06/02/23 06/02/23 06/02/23 Range/Units 06:18 13:24 20:01 POC Glucose (mg/dL) 41 L 151 H (70-110) mg/dL Hemoglobin A1c 6.5 H (<=6.0) % 06/03/23 06/03/23 Range/Units 07:38 12:29 POC Glucose (mg/dL) 284 H 153 H (70-110) mg/dL Hemoglobin A1c (<=6.0) % Diabetes panel 06/02/23 Range/Units 06:18 Hemoglobin A1c 6.5 H (<=6.0) %
[2023-06-03] MEDS: ACETAMINOPHEN TAB 325 MG TAB PO PRN (13:46)
[2023-06-03] MEDS ORDERED: SODIUM CHLORIDE 0.9% 250 ML IV ONE (14:58)
[2023-06-03] MEDS ORDERED: LIDOCAINE 1% INJ 10MG/ML (20 ML MDV) SQ ONE ×3 (15:18→15:26)
[2023-06-03] MEDS: fentaNYL (PF) 50 MCG/ML 2 ML AMP IVP ONE ×2 (15:18→15:23)
[2023-06-03] MEDS ORDERED: fentaNYL (PF) 50 MCG/ML 2 ML AMP IVP ONE (15:19)
[2023-06-03] MEDS: AMIODARONE 200 MG TAB PO SCH (16:20)
[2023-06-03] MEDS: HYDROPHILIC CREAM 180 GM TUBE TOPICAL SCH (16:22)
[2023-06-03] MEDS: DARBEPOETIN ALFA 40 MCG/0.4 ML SYRINGE SQ SCH (16:28)
--- NOTE | 2023-06-03 16:34 | XR ---
EXAMINATION TYPE: XR chest 1V confirm line [facility] DATE OF EXAM: 06/03/2023 COMPARISON: 06/01/2023 INDICATION: Dialysis catheter placement TECHNIQUE: Single frontal view of the chest is obtained. FINDINGS: The heart size is normal. The pulmonary vasculature is normal. Port is present on the right with the tip in the right atrium. Left double lumen catheter is in place with tip in the superior vena cava region. Mild diffuse increased scattered lung markings are presen t greater on the right lower base. A minimal right pleural effusion is present. IMPRESSION: 1. No pneumothorax post left catheter placement and tip is within the superior vena cava region. 2. Infiltrate at the right base small right pleural effusion, stable from comparison.
[2023-06-03 16:46] LABS: Glucose,Whole Blood 234 mg/dL (70-110)
[2023-06-03 20:20] LABS: Glucose,Whole Blood 241 mg/dL (70-110)
[2023-06-03] MEDS: ATORVASTATIN 40 MG TAB PO SCH (20:48)
[2023-06-03] MEDS: DULoxetine HCL 20 MG CAPSULE.DR PO SCH (20:48)
[2023-06-03] MEDS: MELATONIN 5 MG TABLET PO SCH (20:48)
[2023-06-03] MEDS: oxyBUTYnin chloride 5 MG TAB PO SCH (20:48)
[2023-06-03] MEDS: INSULIN DETEMIR (LEVEMIR) 100 UNIT/ML SYR SQ SCH (20:49)
--- NOTE | 2023-06-03 22:28 | OP ---
OPERATIVE REPORT DATE OF SERVICE : PREOPERATIVE DIAGNOSIS: Acute chronic renal failure. PROCEDURE PERFORMED: Placement of a 28-cm dialysis catheter, left jugular approach. DESCRIPTION OF PROCEDURE: The patient was brought to the seed laboratory assistant. Left side of the neck was prepped and drapes applied in a sterile manner. This patient has a Port-A-Cath placed from the right IJ catheter. We decided to go from the left side. Ultrasound-guided micropuncture into right jugular vein, micropuncture guidewire was passed and a 4-Austrian dilator advanced on top of the guidewire. Then, 4-Austrian sheath advanced on the top of the guidewire. Through the sheath, we introduced a regular guidewire which was parked in the inferior vena cava under fluoroscopy control. Then a tunnel was created. Through the tunnel, we brought 28 cm dialysis catheter. Dilator was advanced on top of the guidewire under fluoroscopic control. Then, sheath was advanced on the top of the guidewire and through the sheath we introduced the catheter. Tip of the catheter is in the junction of the atrium in superior vena cava, flushed with heparin saline and hep-locked, secured with 3-0 nylon, dressing applied, the patient tolerated the procedure well. MMODL / IJN: [id number] /
[2023-06-04] LABS: Glucose,Whole Blood 70 mg/dL (70-110)
[2023-06-04 01:43] LABS: Glucose,Whole Blood 100 mg/dL (70-110)
[2023-06-04] MEDS: CALCIUM ACETATE 667 MG TAB PO SCH ×4 (06:07→21:04)
[2023-06-04] MEDS: DIALYSIS (PERIT 2.5%) 2,500 ML 62.5 G/2,500 ML BAG INTRAPERIT SCH ×2 (06:07→12:05)
[2023-06-04 06:58] LABS: Glucose,Whole Blood 53 mg/dL (70-110)
[2023-06-04 07:12] LABS: Glucose,Whole Blood 64 mg/dL (70-110)
[2023-06-04] MEDS: INSULIN ASPART (NovoLOG) 100 UNIT/ML VIAL SQ SCH ×7 (07:25→20:59)
[2023-06-04 07:36] LABS: Glucose,Whole Blood 58 mg/dL (70-110)
[2023-06-04 07:51] LABS: Glucose,Whole Blood 53 mg/dL (70-110)
[2023-06-04 08:11] LABS: Glucose,Whole Blood 64 mg/dL (70-110)
[2023-06-04 08:54] LABS: Glucose,Whole Blood 117 mg/dL (70-110)
[2023-06-04] MEDS: CYANOCOBALAMIN 500 MCG TAB PO SCH (09:28)
[2023-06-04] MEDS: PANTOPRAZOLE 40 MG TABLET PO SCH ×2 (09:29→21:05)
[2023-06-04] MEDS: METOPROLOL TARTRATE 12.5 MG TAB PO SCH ×2 (09:29→21:05)
[2023-06-04] MEDS: MIDODRINE 5 MG TAB PO SCH ×3 (09:29→18:11)
[2023-06-04] MEDS: ISOSORBIDE MONONITRATE ER 30 MG TAB.ER.24H PO SCH (09:29)
[2023-06-04] MEDS: SODIUM BICARBONATE TAB 650 MG TAB PO SCH (09:29)
[2023-06-04] MEDS: GABAPENTIN 100 MG CAP PO SCH ×3 (09:29→21:04)
[2023-06-04] MEDS: CLOPIDOGREL 75 MG TAB PO SCH (09:29)
[2023-06-04] MEDS: SENNOSIDES-DOCUSATE SODIUM 1 EACH TAB PO SCH ×2 (09:29→23:02)
[2023-06-04] MEDS: ASPIRIN 81 MG PO SCH (09:29)
[2023-06-04] MEDS: HEPARIN SODIUM,PORCINE 5,000 UNIT/ML 1 ML VIAL SQ SCH ×2 (09:29→21:08)
[2023-06-04] MEDS: HYDROPHILIC CREAM 180 GM TUBE TOPICAL SCH (09:30)
[2023-06-04] MEDS: RANOLAZINE 500 MG TAB.ER.12H PO SCH ×2 (09:30→21:04)
[2023-06-04] MEDS: FOLIC ACID-VIT B COMPLEX-VIT C 1 CAP PO SCH (09:30)
[2023-06-04] MEDS: ACETAMINOPHEN TAB 325 MG TAB PO PRN (09:56)
[2023-06-04 11:02] LABS: Magnesium 2.1 mg/dL (1.5-2.4); Phosphorus 5.4 mg/dL (2.4-5.1)
[2023-06-04 11:04] LABS: BUN/Creat Ratio 6.79 Ratio (12.00-20.00); Blood Urea Nitrogen 48.2 mg/dL (9.0-27.0); Calcium 9.2 mg/dL (8.7-10.3); Carbon Dioxide 30.7 mmol/L (21.6-31.8); Chloride 90 mmol/L (96-109); Glucose 63 mg/dL (70-110); Potassium 5.1 mmol/L (3.5-5.5); Sodium 134 mmol/L (135-145)
[2023-06-04 11:58] LABS: Glucose,Whole Blood 245 mg/dL (70-110)
--- NOTE | 2023-06-04 12:14 | P.PN ---
Subjective Patient is seen in follow-up for end-stage renal disease. He is maintained on peritoneal dialysis. No problems with PD exchanges. No active complaints. Wants to go to rehab. Permacath for hemodialysis placed 06/03/2023. Vital signs are stable. General: No acute distress. HEENT: Head exam is unremarkable. LUNGS: No audible rhonchi or wheezes. HEART: Rate and Rhythm are regular. ABDOMEN: Nontender. EXTREMITITES: Trace edema. Objective - Vital Signs Vital signs: Vital Signs Temp 97.5 F L 06/04/23 06:50 Pulse 64 06/04/23 06:50 Resp 18 06/04/23 06:50 BP 109/57 06/04/23 06:50 Pulse Ox 100 06/04/23 06:50 FiO2 Intake & Output 06/03/23 06/04/23 06/04/23 18:59 06:59 18:59 Intake Total 290 360 Balance 290 360 Weight 65 kg Intake: IV 50 Oral 240 360 Other: Voiding Method Bedside Commode Bedside Commode Bedside Commode - Labs CBC & Chem 7: 06/02/23 06:18 06/04/23 06:13 Labs: Abnormal Lab Results - Last 24 Hours (Table) 06/03/23 06/03/23 06/03/23 Range/Units 12:29 16:45 20:18 Sodium (135-145) mmol/L Chloride (96-109) mmol/L Anion Gap (4.00-12.00) mmol/L BUN (9.0-27.0) mg/dL Creatinine (0.6-1.5) mg/dL Est GFR (CKD-EPI) (>=60) BUN/Creatinine Ratio (12.00-20.00) Ratio Glucose (70-110) mg/dL POC Glucose (mg/dL) 153 H 234 H 241 H (70-110) mg/dL Phosphorus (2.4-5.1) mg/dL 06/04/23 06/04/23 06/04/23 Range/Units 06:13 06:56 07:10 Sodium 134 L (135-145) mmol/L Chloride 90 L (96-109) mmol/L Anion Gap 13.30 H (4.00-12.00) mmol/L BUN 48.2 H (9.0-27.0) mg/dL Creatinine 7.1 H* (0.6-1.5) mg/dL Est GFR (CKD-EPI) 8 L (>=60) BUN/Creatinine Ratio 6.79 L (12.00-20.00) Ratio Glucose 63 L (70-110) mg/dL POC Glucose (mg/dL) 53 L 64 L (70-110) mg/dL Phosphorus 5.4 H (2.4-5.1) mg/dL 06/04/23 06/04/23 06/04/23 Range/Units 07:34 07:49 08:08 Sodium (135-145) mmol/L Chloride (96-109) mmol/L Anion Gap (4.00-12.00) mmol/L BUN (9.0-27.0) mg/dL Creatinine (0.6-1.5) mg/dL Est GFR (CKD-EPI) (>=60) BUN/Creatinine Ratio (12.00-20.00) Ratio Glucose (70-110) mg/dL POC Glucose (mg/dL) 58 L 53 L 64 L (70-110) mg/dL Phosphorus (2.4-5.1) mg/dL 06/04/23 06/04/23 Range/Units 08:34 11:57 Sodium (135-145) mmol/L Chloride (96-109) mmol/L Anion Gap (4.00-12.00) mmol/L BUN (9.0-27.0) mg/dL Creatinine (0.6-1.5) mg/dL Est GFR (CKD-EPI) (>=60) BUN/Creatinine Ratio (12.00-20.00) Ratio Glucose (70-110) mg/dL POC Glucose (mg/dL) 117 H 245 H (70-110) mg/dL Phosphorus (2.4-5.1) mg/dL Assessment and Plan Plan: Assessment: 1. End-stage renal disease maintained on peritoneal dialysis. 2. Chronic kidney disease mineral bone disease maintained on PhosLo. Phosphorus level 5.4 dated 06/04/2023. 3. Diabetes mellitus. 4. Coronary disease with prior stenting. 5. Generalized debility. 6. Right inguinal infection status post incision and drainage of [facility] with wound VAC placement. 7. Anemia of chronic kidney disease maintained on Aranesp. Plan: Stop PD exchanges this evening. Plan for hemodialysis treatment tomorrow. He will be maintained on hemodialysis on Saturday schedule outpatient while at rehab. Follow-up iron studies.
--- NOTE | 2023-06-04 12:19 | P.PN ---
Subjective Progress Note Date: 06/04/23 This is a 73-year-old patient being seen in the ICU for management of a negative pressure wound VAC. Patient previously had a surgical debridement and wound VAC application done at [facility] due to a right inguinal infected mass. He was discharged from there and was home for short period time where wound VAC changes were occurring with home care. Patient has a large ulceration to the right groin with tunneling towards his scrotum. He does have sutures present. Patient has Slough and granulation noted within the wound bed. Ulceration noted to the penis and scrotum with significant amount of slough and nonviable tissue. No granulation noted to the wound bed. Stage 2 pressure ulcer to the sacrum that is tender to the touch. Patient's past medical history significant for peritoneal dialysis, atrial fibrillation, coronary artery disease with post- stents, type 2 diabetes, hypertension, hyperlipidemia and history of GI bleed. 06/04/2023: Was asked to, and reconsult patient related to foam found to the scrotum. Nurse states that they were unable to remove the foam. Foam appears to be in for an extended amount of time. Large amounts of the phone was removed however foam is still adhered to the tissue. Urology has been consult it. Patient may require a surgical debridement to remove the remaining foam. If procedure is completed patient may return to a negative pressure wound VAC to that site or absorptive silver rope depending on patient's tolerance. Sutures removed X 4. Review Of Systems: Constitutional: No fever, no chills, no night sweats. No weight change. No weakness, fatigue or lethargy. No daytime sleepiness. Integumentary:reports wounds, no lesions. No rash or pruritus. No unusual bruising. No change in hair or nails. Physical exam: General Appearance: Alert, cooperative, no distress, appears stated age. Sk in: See HPI all other Skin color, texture, tugor normal, no rashes or lesions. Neurologic: Alert oriented x3 Assessment: 1. Nonhealing ulceration with muscle involvement without necrosis right groin 2. Nonhealing ulceration other site with fat layer exposure 3. Stage 2 sacrum pressure ulcer 4. Diabetes with skin ulceration Plan: 1. Consult urology for possible surgical debridement to remove remaining foam that it appeared to the tissue. Once the procedure is completed patient may return to negative pressure wound VAC or absorptive silver rope to the site. 2. Right groin: Apply negative pressure wound VAC with white and black foam at 150 mm/Hg constant pressure change Saturday. 3. Scrotum and penis ulceration: Apply triad daily. Thank you for the consultation any questions to contact the wound care center DNP note has been reviewed and discussed with Dr. Ralph and the impression and plan of care has been directed as dictated. Objective - Vital Signs Vital signs: Vital Signs Temp 97.5 F L 06/04/23 06:50 Pulse 64 06/04/23 06:50 Resp 18 06/04/23 06:50 BP 109/57 06/04/23 06:50 Pulse Ox 100 06/04/23 06:50 FiO2 Intake & Output 06/03/23 06/04/23 06/04/23 18:59 06:59 18:59 Intake Total 290 360 Balance 290 360 Weight 65 kg Intake: IV 50 Oral 240 360 Other: Voiding Method Bedside Commode Bedside Commode Bedside Commode - Labs CBC & Chem 7: 06/02/23 06:18 06/04/23 06:13 Labs: Abnormal Lab Results - Last 24 Hours (Table) 06/03/23 06/03/23 06/03/23 Range/Units 12:29 16:45 20:18 Sodium (135-145) mmol/L Chloride (96-109) mmol/L Anion Gap (4.00-12.00) mmol/L BUN (9.0-27.0) mg/dL Creatinine (0.6-1.5) mg/dL Est GFR (CKD-EPI) (>=60) BUN/Creatinine Ratio (12.00-20.00) Ratio Glucose (70-110) mg/dL POC Glucose (mg/dL) 153 H 234 H 241 H (70-110) mg/dL Phosphorus (2.4-5.1) mg/dL 06/04/23 06/04/23 06/04/23 Range/Units 06:13 06:56 07:10 Sodium 134 L (135-145) mmol/L Chloride 90 L (96-109) mmol/L Anion Gap 13.30 H (4.00-12.00) mmol/L BUN 48.2 H (9.0-27.0) mg/dL Creatinine 7.1 H* (0.6-1.5) mg/dL Est GFR (CKD-EPI) 8 L (>=60) BUN/Creatinine Ratio 6.79 L (12.00-20.00) Ratio Glucose 63 L (70-110) mg/dL POC Glucose (mg/dL) 53 L 64 L (70-110) mg/dL Phosphorus 5.4 H (2.4-5.1) mg/dL 06/04/23 06/04/23 06/04/23 Range/Units 07:34 07:49 08:08 Sodium (135-145) mmol/L Chloride (96-109) mmol/L Anion Gap (4.00-12.00) mmol/L BUN (9.0-27.0) mg/dL Creatinine (0.6-1.5) mg/dL Est GFR (CKD-EPI) (>=60) BUN/Creatinine Ratio (12.00-20.00) Ratio Glucose (70-110) mg/dL POC Glucose (mg/dL) 58 L 53 L 64 L (70-110) mg/dL Phosphorus (2.4-5.1) mg/dL 06/04/23 06/04/23 Range/Units 08:34 11:57 Sodium (135-145) mmol/L Chloride (96-109) mmol/L Anion Gap (4.00-12.00) mmol/L BUN (9.0-27.0) mg/dL Creatinine (0.6-1.5) mg/dL Est GFR (CKD-EPI) (>=60) BUN/Creatinine Ratio (12.00-20.00) Ratio Glucose (70-110) mg/dL POC Glucose (mg/dL) 117 H 245 H (70-110) mg/dL Phosphorus (2.4-5.1) mg/dL Assessment and Plan (1) Non-pressure chronic ulcer of other part of right foot with muscle involvement without evidence of necrosis Current Visit: No Status: Acute Code(s): L97.515 - NON-PRS CHR ULC OTH PRT R FOOT WITH MSL INVL W/O EVD OF NECR SNOMED Code(s): 95896707198667168 (2) Non-pressure chronic ulcer of skin of other sites with fat layer exposed Current Visit: No Status: Acute Code(s): L98.492 - NON-PRS CHRONIC ULCER OF SKIN OF SITES W FAT LAYER EXPOSED SNOMED Code(s): 26178174 (3) Type 2 diabetes mellitus with other skin ulcer Current Visit: No Status: Acute Code(s): E11.622 - TYPE 2 DIABETES MELLITUS WITH OTHER SKIN ULCER; L98.499 - NON-PRESSURE CHRONIC ULCER OF SKIN OF SITES W UNSP SEVERITY SNOMED Code(s): 633116091 (4) Stage II pressure ulcer of sacral region Current Visit: Yes Status: Acute Code(s): L89.152 - PRESSURE ULCER OF SACRAL REGION, STAGE 2 SNOMED Code(s): 56641921768067
--- NOTE | 2023-06-04 13:00 | P.PN ---
Subjective Progress Note Date: 06/04/23 Patient is a 73-year-old male male with a past medical history of ESRD on peritoneal dialysis, chronic systolic heart failure with previously known EF of 35%, CAD with previous stents, hypertension, hyperlipidemia, and diabetes mellitus. Presented to the emergency department with a chief complaint of increasing weakness, chest pain, and fall at home. Patient recently underwent hospitalization and ICU admission for pulmonary edema. Patient was discharged home on 05/31/23. Reports after going home he had difficulties ambulating resulting in recurrent falls due to weakness. Patient reports he was encouraged to go to a rehab facility prior to discharge but will not do hemodialysis and w anted to be discharged back home to continue his peritoneal dialysis. He reports he would've stayed home but developed pain to his midsternal chest so he came back to the hospital for evaluation. Upon arrival to our facility patient underwent full evaluation. EKG was completed showing normal sinus rhythm at 71 bpm with left bundle branch block upon personal review and interpretation. CBC showing mild leukocytosis with WBC count of 11.4, macrocytic anemia with hemoglobin of 9.3. BMP showing sodium 134, chloride 93, and elevated renal function consistent with ESRD with BUN 54, creatinine 7.36, and GFR of 7. Magnesium was low at 1.6. Alkaline phosphatase elevated at 164. Troponin 0.026 and pro-BMP 29,900. Patient admitted under our services to observation unit with telemetry for chest pain with consultation to both cardiology and nephrology. Troponins were trended and flat at 0.026, 0.028, and 0.026. Cardiology evaluated and ruled out out acute coronary event recommending no med ication changes at this time and continued outpatient follow-up in their office upon discharge. Nephrology following and managing peritoneal dialysis, systems spec is recommending patient be placed on temporary hemodialysis for discharge to detention facility. He also has a scrotal ulceration with retained wound VAC material. Urology consulted. Patient seen and examined at bedside. He was hypoglycemic overnight, asymptomatic. Does have right hip pain with movement. Denies any other new complaints. Physical exam: Vital signs reviewed and stable. General: Nontoxic, no distress and appears stated age. Derm: Skin warm and dry, normal coloration for ethnicity., Penile ulceration on the ventral aspect as well as inferior scrotum with wound VAC foam still in place and adhered, left chest hemodialysis catheter in place Head: Atraumatic, normocephalic and symmetric. Eyes: EOMs intact, no lid lag, and anicteric sclera Mouth: no lip lesions, mucus membranes moist Cardiovascular: regular rate and rhythm with normal S1S2, systolic murmur, positive posterior tibial pulses bilaterally, and cap refill < 2 seconds. Lungs: Respirations even, regular, and unlabored on room air. Lungs CTA bilaterally, no rhonchi, no rales, no wheezing, and no accessory muscle usage. Abdominal: soft and distended, nontender to palpation, no guarding, peritoneal dialysis catheter in place. Wound VAC in place right groin. Ext: ROM intact. No gross muscle atrophy, no edema, no contractures Neuro: Speech clear, face symmetrical and CN II-XII grossly intact with no noted focal neuro deficits Psych: Alert and oriented to person, place, time, and situation. Appropriate and pleasant affect. Patient does have episodes of confusion but is currently alert and oriented at this present time. Labs reviewed today: Blood sugars range between 53-245 Assessment and Plan of Care: Scrotal ulceration, present on admission -Urology consulted -Wound care following, recommending debridement -Patient has old wound VAC foam still adhered to scrotum, this was from outside hospital Metabolic encephalopathy secondary to azotemia resulting from endstage renal disease, resolved Generalized weakness and debility with recurrent falls at home resulting from physical deconditioning secondary to advanced age and chronic illness Chest pain, acute coronary event ruled out, resolved History of CAD status post stents Hypertension Hyperlipidemia -Patient with intermittent confusion and generalized weakness progressively worsening resulting in inability to completely necessary ADLs. -Fall precautions in place. -Physical therapy following, recommending patient will need rehab upon discharge -Cardiology evaluated and ruled out out acute coronary event recommending no medication changes at this time and continued outpatient follow-up in their office upon discharge. -Continue Telemetry monitoring -Continue heart healthy renal diet -Continue daily medication regimen with aspirin 81 mg daily, atorvastatin 40 mg daily, Plavix 75 mg daily, isosorbide mononitrate 30 mg daily, metoprolol 12.5 mg twice daily, midodrine 10 mg 3 times daily with meals. ESRD -Nephrology following for management of dialysis -Dialysis catheter in place -Continuation of sodium bicarb 650 mg daily Insulin-dependent diabetes mellitus Episode of hypoglycemia Continue sliding scale insulin, Levemir decreased to 10 units, NovoLog decreased to 3 units 3 times a day Status post recent I&D and placement of wound VAC to right inguinal mass -Wound care consulted for management of wound VAC to right groin CODE STATUS: Full code DVT prophylaxis: Heparin Anticipated discharge date: Awaiting placement Anticipated discharge place: Patient to be discharged to detention facility Objective - Vital Signs Vital signs: Vital Signs Temp 98.7 F 06/04/23 11:50 Pulse 84 06/04/23 11:50 Resp 23 06/04/23 11:50 BP 111/51 06/04/23 11:50 Pulse Ox 90 L 06/04/23 11:50 FiO2 Intake & Output 06/03/23 06/04/23 06/04/23 18:59 06:59 18:59 Intake Total 290 360 Balance 290 360 Weight 65 kg Intake: IV 50 Oral 240 360 Other: Voiding Method Bedside Commode Bedside Commode Bedside Commode - Labs CBC & Chem 7: 06/02/23 06:18 06/04/23 06:13 Labs: Abnormal Lab Results - Last 24 Hours (Table) 06/03/23 06/03/23 06/04/23 Range/Units 16:45 20:18 06:13 Sodium 134 L (135-145) mmol/L Chloride 90 L (96-109) mmol/L Anion Gap 13.30 H (4.00-12.00) mmol/L BUN 48.2 H (9.0-27.0) mg/dL Creatinine 7.1 H* (0.6-1.5) mg/dL Est GFR (CKD-EPI) 8 L (>=60) BUN/Creatinine Ratio 6.79 L (12.00-20.00) Ratio Glucose 63 L (70-110) mg/dL POC Glucose (mg/dL) 234 H 241 H (70-110) mg/dL Phosphorus 5.4 H (2.4-5.1) mg/dL 06/04/23 06/04/23 06/04/23 Range/Units 06:56 07:10 07:34 Sodium (135-145) mmol/L Chloride (96-109) mmol/L Anion Gap (4.00-12.00) mmol/L BUN (9.0-27.0) mg/dL Creatinine (0.6-1.5) mg/dL Est GFR (CKD-EPI) (>=60) BUN/Creatinine Ratio (12.00-.00) Ratio Glucose (70-110) mg/dL POC Glucose (mg/dL) 53 L 64 L 58 L (70-110) mg/dL Phosphorus (2.4-5.1) mg/dL 06/04/23 06/04/23 06/04/23 Range/Units 07:49 08:08 08:34 Sodium (135-145) mmol/L Chloride (96-109) mmol/L Anion Gap (4.00-12.00) mmol/L BUN (9.0-27.0) mg/dL Creatinine (0.6-1.5) mg/dL Est GFR (CKD-EPI) (>=60) BUN/Creatinine Ratio (.00-.00) Ratio Glucose (70-110) mg/dL POC Glucose (mg/dL) 53 L 64 L 117 H (70-110) mg/dL Phosphorus (2.4-5.1) mg/dL 06/04/23 Range/Units 11:57 Sodium (135-145) mmol/L Chloride (96-109) mmol/L Anion Gap (4.00-12.00) mmol/L BUN (9.0-27.0) mg/dL Creatinine (0.6-1.5) mg/dL Est GFR (CKD-EPI) (>=60) BUN/Creatinine Ratio (12.00-20.00) Ratio Glucose (70-110) mg/dL POC Glucose (mg/dL) 245 H (70-110) mg/dL Phosphorus (2.4-5.1) mg/dL
[2023-06-04 13:01] LABS: % Iron Saturation 9.22 (15.00-50.00)
--- NOTE | 2023-06-04 13:16 | IR ---
EXAMINATION TYPE: IR cvc insert central tunneled DATE OF EXAM: 06/03/2023 COMPARISON: NONE HISTORY: Fluoroscopy time. Fluoroscopy was provided to the referring clinician.
--- NOTE | 2023-06-04 14:32 | P.CONS ---
History of Present Illness - Reason for Consult Consult date: 06/03/23 rehab recommendations - Chief Complaint debility - History of Present Illness Mr. Egan is a 73-year-old male, right handed, , who lives in a 1 story home, with 3 ANDRES, but has a wheel chair ramp. Prior to admission, he was ambulating with a 2ww, 4ww and uses a wheel chair. He was needed assistance at times for basic/advanced ADLs. Current driving: no. Transportation by: family. Retired: yes. Support system: daughter lives with patient to help on an as needed basis. Daughter performs the patient peritoneal dialysis Patient arrived via EMS to [facility] on 06/01 with complaints of chest pain, increased weakness and falls. He was admitted with chest pain and a consultation to vascular surgery, cardiology and nephrology. Of note, the patient was discharged on 05/31 from [facility]. He was admitted on 05/27. He presented to the ED c/o bilateral lower extremity edema. This edema had progressed over several days. Of note, patient is depen dent on peritoneal dialysis. Patient was also recently hospitalized for a right inguinal necrotizing infected mass with subsequent transfer to [facility]. He currently has a wound VAC for the right inguinal wound. Patient reported that he had been feeling more weak and SOB several days prior to presentation to the EC. In the EC he had a chest x-ray completed, concerning for CHF. Labs on arrival showed WBCs of 11.2, potassium 7.3, creatinine 8.73, BNP 20,300. atient was admitted to the ICU with a diagnosis of hyperkalemia and pulmonary edema. He was started on antibiotics. Consults were placed to wound care, general surgery and nephrology. Patient received medications for the hyperkalemia. His PD cath was evaluated for patency and found to be working. PD was resumed in the hospital. PM&R consulted for rehab recommendations. Therapy evaluations reviewed; patient needing 05/30/2023, patient was evaluated. Daughter and at bedside. At that time patient refused to temporarily switch from peritoneal dialysis to hemodialysis. Advised patient that his rehab choices would be very slim as rehab centers do not accept patients with peritoneal dialysis. Patient refused hemodialysis and decided to be discharged home. 06/03/23:Saw patient at bedside. He is going for permcath to start hemodialysis Review of Systems negative unless noted in HPI Past Medical History Past Medical History: Coronary Artery Disease (CAD), Chest Pain / Angina, Heart Failure, COPD, Diabetes Mellitus, Dialysis, GERD/Reflux, GI Bleed, Hyperlipidemia, Hypertension, Myocardial Infarction ([place]), Pneumonia, Renal Dise ase, Vascular Disorder Additional Past Medical History / Comment(s): Lower GI bleeds/suspect micro bleeds in intestine, occasional abdominal bloating, IDDM type II, neuropathy bilateral feet, ESRD with peritoneal dialysis ((cycler at night for 5 hours), past hemodialysis/spouse states she was told L upper arm fistula is plugged again, chronic anemia/transfusion of blood/iron, past partial SBO, benign colon polyps, chronic low back pain with bilateral sciatica, PVD, RLS, vertigo, insomnia, 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 Last Myocardial Infarction Date:: 03/2020 History of Any Multi-Drug Resistant Organisms: None Reported Past Surgical History: Cholecystectomy, Heart Catheterization With Stent Additional Past Surgical History / Comment(s): 03/25/20 R sublclavian mediport, R carotid stent done in [place], EGD/colonoscopy, endoscopic capsule, ORIF left wrist, aortagram, bilateral leg revascularizations/stents, left upper arm fistula and on 12/15/21 had thrombectomy balloon angioplasty of L arm fistula, peritoneal dialysis catheter removal and insertion (11/23/21). surgery on groin, patient cant remember what type. Past Anesthesia/Blood Transfusion Reactions: No Reported Reaction Additional Past Anesthesia/Blood Transfusion Reaction / Comm: Pt has had multiple blood transfusions without reaction. Date of Last Stent Placement:: 03/2021 Past Psychological History: No Psychological Hx Reported, PTSD Additional Psychological History / Comment(s): Pt resides with his spouse. He has a cane and 2 mobility scooters. 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 He does not drive, his spouse drives and organizes his meds for him. Smoking Status: Current every day smoker Past Alcohol Use History: None Reported Additional Past Alcohol Use History / Comment(s): Pt started smoking in 1965 and is a 1 ppd smoker. Past Drug Use History: None Reported Additional Drug Use History / Comment(s): Occasional Marijuana use. - Past Family History Father History Unknown: Yes Mother Family Medical History: Cancer Additional Family Medical History / Comment(s): Mother from metastatic cancer pelvic origin. Medications and Allergies Home Medications Medication Instructions Recorded Confirmed Type Ergocalciferol (Vitamin D2) 1,250 mcg PO Q14D 07/18/17 06/01/23 History [Vitamin D2] DULoxetine HCL [Cymbalta] 20 mg PO HS@2200 10/27/20 06/01/23 History Melatonin 5 mg PO HS@2200 12/19/20 06/01/23 History Sennosides-Docusate Sodium 2 tab PO BID@1000,2200 12/31/20 06/01/23 History [Senokot-S] Gabapentin [Neurontin] 100 mg PO TID@1000,1430,2200 01/23/21 06/01/23 History Nitroglycerin Sl Tabs [Nitrostat] 0.4 mg SL Q5M PRN 01/23/21 06/01/23 History rOPINIRole HCL [Requip] 0.5 mg PO TID@1000,1430,0 01/23/21 06/01/23 History Ondansetron [Zofran] 4 mg PO DAILY PRN 05/08/21 06/01/23 History oxyBUTYnin chloride [Ditropan] 5 mg PO HS@2200 06/28/21 06/01/23 History Lactulose [Constulose] 10 gm PO DAILY PRN 11/12/21 06/01/23 History Nephro-Deepa 1 tab PO DAILY@1000 11/12/21 06/01/23 History Omeprazole 40 mg PO BID@1000,2200 11/12/21 06/01/23 History Cyanocobalamin [Vitamin B-12] 1,000 mcg PO DAILY@1000 12/14/21 06/01/23 History Insulin Glargine,Hum.rec.anlog 25 units SQ HS@219901/12/23 06/01/23 History [Lantus Solostar Pen] Sodium Bicarbonate Tab 650 mg PO DAILY@1000 01/12/23 06/01/23 History Acetaminophen Tab [Tylenol] 650 mg PO Q6HR PRN tab 01/16/23 06/01/23 Rx Amiodarone [Cordarone] 200 mg PO DAILY@1430 02/18/23 06/01/23 History Calcium Acetate [PhosLo] 1,334 mg PO 5XD 02/18/23 06/01/23 History Insulin Aspart [NovoLOG Flexpen] 8 units SQ TID-W/MEALS 02/18/23 06/01/23 History Isosorbide Mononitrate ER [Imdur] 30 mg PO DAILY@1000 02/18/23 06/01/23 History Ranolazine [Ranexa] 500 mg PO BID@1000,2200 02/18/23 06/01/23 History Metoprolol Tartrate [Lopressor] 12.5 mg PO BID@1000,2200 02/23/23 06/01/23 History Albuterol Nebulized [Ventolin 2.5 mg INHALATION RT-Q4H PRN 04/25/23 06/01/23 History Nebulized] Atorvastatin Calcium [Lipitor] 40 mg PO HS@2200 04/25/23 06/01/23 History Benzonatate 100 mg PO BID PRN 04/25/23 06/01/23 History Clopidogrel [Plavix] 75 mg PO DAILY@1000 04/25/23 06/01/23 History levOCARNitine 330 mg PO BID PRN 04/25/23 06/01/23 History oxyCODONE HCL [oxyCODONE HCL (IR)] 5 mg PO DAILY PRN 05/27/23 06/01/23 History Midodrine [ProAmatine] 10 mg PO AC-TID #180 tab 05/31/23 06/01/23 Rx Allergies Allergy/AdvReac Type Severity Reaction Status Date / Time Iodinated Contrast Media AdvReac CAN'T Verified 06/01/23 10:57 TAKE, RENAL DISEASE Iodine and Iodide Containing AdvReac CAN'T Verified 06/01/23 10:57 Produc TAKE, RENAL DISEASE Physical Exam Vitals: Vital Signs Temp Pulse Pulse Resp BP BP Pulse Ox 06/03/23 07:34 97.6 F 71 20 115/60 96 06/03/23 06:30 97.6 F 72 18 111/56 96 06/03/23 00:41 98.2 F 71 18 105/57 98 06/02/23 19:18 97.1 F L 64 18 100/51 96 06/02/23 16:55 70 132/67 06/02/23 14:43 97.6 F 63 18 95/50 95 Intake and Output 06/02/23 06/03/23 06/03/23 22:59 06:59 14:59 Output Total 0 Balance 0 Output: Urine 0 Other: Voiding Method Bedside Commode Bedside Commode # Voids 1 # Bowel Movements 1 Weight 60.5 kg EXAM; General: WDWN, male resting in bed with family at bedside, NAD Head: Normocephalic, atraumatic. Eyes: Symmetric Ears: Symmetric. Hearing within normal limits. Mouth: Clear, poor dentition Neck: Supple. Cardiac: television reporter in place. Calves supple, non tender, no edema Lungs: Breathing comfortably on RA. Chest symmetric. Abdomen: Soft, nontender, PD port in place Extremities: Arthritic changes consistent with age. Neurological: Alert and oriented x 3. Speech is clear and fluent without paraphasic errors Cranial nerves: CN II-XII: intact. Sensation: Intact and symmetrical limbs. Musculoskeletal: ROM WFL EXCEPT: decreased right due to groin wound MMT UE Sh Abd EE EF FABD WE HG Right 4 4 4 4 4 4 Left 4 4 4 4 4 4 MMT LE HF KE DF EHL Right 2 3 4 4 Left 3+ 3+ 4 4 Reflexes Biceps Triceps Brachioradialis Patella Achilles Babinski Hoffmans Right 2 2 2 2 Left 2 2 2 2 Skin: Skin intact where visible to head, neck, and bilateral upper and lower extremities EXCEPT: PIV, bilat UE areas of ecchymosis and scabbing, large right groin open wound with tunneling to scrotum. Area of skin breakdown on penis shaft, , several stitches to right scrotum, area of breakdown left scrotum, smaller wound to right hip Psych: Calm, cooperative Results CBC & Chem 7: 06/06/23 06:05 06/05/23 16:45 Labs: Abnormal Lab Results - Last 24 Hours (Table) 06/02/23 06/02/23 06/02/23 Range/Units 06:18 13:24 20:01 POC Glucose (mg/dL) 41 L 151 H (70-110) mg/dL Hemoglobin A1c 6.5 H (<=6.0) % 06/03/23 Range/Units 07:38 POC Glucose (mg/dL) 284 H (70-110) mg/dL Hemoglobin A1c (<=6.0) % Assessment and Plan Assessment: #Gait impairment/impaired ADLs secondary to ESRD, chest pain, wound, generalized weakness #Recent hospitalization for acute exacerbation of CHF with systolic dysfunction, fluid overload #Dyspnea secondary to above #End-stage renal disease dependent on peritoneal dialysis #Severe hyperkalemia at last admission #Necrotizing right inguinal wound infection s/p I&D and wound VAC #Hypotension -Midodrine #Anemia of chronic disease #CAD with history of [place] # Bowel/ Bladder: # Diet -Renal diet/cardiac low potassium, low phosphorus, # Skin/wound: Skin/Wound care to follow as needed # Pain Management -Tylenol 650 mg every 6 hours as needed, Gabapentin 100 mg 3 times daily, oxycodone 5 mg daily as needed for wound VAC changes # DVT Prophylaxis: -Subcu heparin # Comorbidities: hyperlipidemia, hypertension, COPD, A-fib, DM type II # Your medical dx and mgt Goals: Modified Independent mobility and ADLS both basic and advanced; increased functional mobility/strength; increased balance, safety, endurance. Improvement in medical issues through your care. Barriers: Endurance, pain, wound, peritoneal dialysis dependent Discharge recommendation: May be good candidate for IPR pending progress with therapy Patient seen and examined by Dr. Lopez Note prepped by Nneka Marroquni NP-C Author: Nneka Marroquin NP
[2023-06-04] MEDS: AMIODARONE 200 MG TAB PO SCH (15:26)
[2023-06-04 17:51] LABS: Glucose,Whole Blood 138 mg/dL (70-110)
[2023-06-04 19:59] LABS: Glucose,Whole Blood 220 mg/dL (70-110)
[2023-06-04] MEDS: INSULIN DETEMIR (LEVEMIR) 100 UNIT/ML SYR SQ SCH (21:00)
[2023-06-04] MEDS: DULoxetine HCL 20 MG CAPSULE.DR PO SCH (21:05)
[2023-06-04] MEDS: ATORVASTATIN 40 MG TAB PO SCH (21:05)
[2023-06-04] MEDS: oxyBUTYnin chloride 5 MG TAB PO SCH (21:05)
[2023-06-04] MEDS: MELATONIN 5 MG TABLET PO SCH (21:05)
[2023-06-05] MEDS: CALCIUM ACETATE 667 MG TAB PO SCH ×5 (01:38→21:03)
[2023-06-05 07:20] LABS: Glucose,Whole Blood 96 mg/dL (70-110)
[2023-06-05] MEDS: INSULIN ASPART (NovoLOG) 100 UNIT/ML VIAL SQ SCH ×7 (08:00→21:00)
[2023-06-05] MEDS: ONDANSETRON 4 MG TAB PO PRN (08:01)
[2023-06-05] MEDS: HYDROPHILIC CREAM 180 GM TUBE TOPICAL SCH (08:02)
[2023-06-05] MEDS: MIDODRINE 5 MG TAB PO SCH ×3 (08:40→16:53)
[2023-06-05 11:06] LABS: Basophils # (A) 0.03 X 10*3/uL (0.00-0.10); Basophils % (A) 0.2 %; Eosinophils # (A) 0.16 X 10*3/uL (0.04-0.35); HCT 30.1 % (39.6-50.0); HGB 9.2 d/dL (13.0-17.0); Lymphocytes # (A) 1.05 X 10*3/uL (0.90-5.00); Lymphocytes % (A) 6.8 %; MCH 30.6 pg (27.0-32.0); MCHC 30.6 d/dL (32.0-37.0); Mean Platelet Volume 10.6 FL (9.5-12.2); Monocytes # (A) 0.77 X 10*3/uL (0.20-1.00); NRBC Per 100 WBC 0 X 10*3/uL (0.00-0.01); Neutrophils # (A) 13.44 X 10*3/uL (1.80-7.70); Neutrophils % (A) 86.4 %; Platelet Count 272 X 10*3/uL (140-440); RBC 3.01 X 10*6/uL (4.40-5.60); RDW 18.3 % (11.5-14.5); WBC 15.54 X 10*3/uL (4.50-10.00)
[2023-06-05 11:10] LABS: BUN/Creat Ratio 9.26 Ratio (12.00-20.00); Blood Urea Nitrogen 66.7 mg/dL (9.0-27.0); Carbon Dioxide 26.5 mmol/L (21.6-31.8); Chloride 89 mmol/L (96-109); Glucose 81 mg/dL (70-110); Potassium 6.1 mmol/L (3.5-5.5); Sodium 131 mmol/L (135-145)
--- NOTE | 2023-06-05 11:50 | P.PN ---
Subjective Patient is seen in follow-up for end-stage renal disease. He is maintained on peritoneal dialysis. Permacath placed 06/04/2023 to transition to hemodialysis while he is at rehab. Tolerating hemodialysis well currently. Blood pressure on the lower side. Vital signs are stable. General: No acute distress. HEENT: Head exam is unremarkable. LUNGS: No audible rhonchi or wheezes. HEART: Rate and Rhythm are regular. ABDOMEN: Nontender. EXTREMITITES: No edema. Objective - Vital Signs Vital signs: Vital Signs Temp 97.3 F L 06/05/23 11:22 Pulse 68 06/05/23 11:22 Resp 20 06/05/23 11:22 BP 92/49 06/05/23 11:22 Pulse Ox 99 06/05/23 11:22 FiO2 Intake & Output 06/04/23 06/05/23 06/05/23 18:59 06:59 18:59 Intake Total 540 0 Balance 540 0 Weight 65 kg 69.5 kg Intake: Oral 540 0 Other: Voiding Method Bedside Commode Bedside Commode # Voids 0 - Labs CBC & Chem 7: 06/05/23 06:12 06/05/23 06:12 Labs: Abnormal Lab Results - Last 24 Hours (Table) 06/03/23 06/04/23 06/04/23 Range/Units 13:03 06:13 11:57 WBC (4.50-10.00) X 10*3/uL RBC (4.40-5.60) X 10*6/uL Hgb (13.0-17.0) d/dL Hct (39.6-50.0) % MCV (80.0-97.0) FL MCHC (32.0-37.0) d/dL RDW (11.5-14.5) % Neutrophils # (1.80-7.70) X 10*3/uL Sodium 134 L (135-145) mmol/L Potassium (3.5-5.5) mmol/L Chloride 90 L (96-109) mmol/L Anion Gap 13.30 H (4.00-12.00) mmol/L BUN 48.2 H (9.0-27.0) mg/dL Creatinine 7.1 H* (0.6-1.5) mg/dL Est GFR (CKD-EPI) 8 L (>=60) BUN/Creatinine Ratio 6.79 L (12.00-20.00) Ratio Glucose 63 L (70-110) mg/dL POC Glucose (mg/dL) 245 H (70-110) mg/dL Phosphorus 5.4 H (2.4-5.1) mg/dL Iron 19 L (65-175) UG/DL TIBC 206 L (228-460) UG/DL % Saturation 9.22 L (15.00-50.00) Transferrin 147.0 L (204.0-354.0) mg/dL 06/04/23 06/04/23 06/05/23 Range/Units 17:18 19:49 06:12 WBC 15.54 H (4.50-10.00) X 10*3/uL RBC 3.01 L (4.40-5.60) X 10*6/uL Hgb 9.2 L (13.0-17.0) d/dL Hct 30.1 L (39.6-50.0) % MCV 100.0 H (80.0-97.0) FL MCHC 30.6 L (32.0-37.0) d/dL RDW 18.3 H (11.5-14.5) % Neutrophils # 13.44 H (1.80-7.70) X 10*3/uL Sodium (135-145) mmol/L Potassium (3.5-5.5) mmol/L Chloride (96-109) mmol/L Anion Gap (4.00-12.00) mmol/L BUN (9.0-27.0) mg/dL Creatinine (0.6-1.5) mg/dL Est GFR (CKD-EPI) (>=60) BUN/Creatinine Ratio (12.00-20.00) Ratio Glucose (70-110) mg/dL POC Glucose (mg/dL) 138 H 220 H (70-110) mg/dL Phosphorus (2.4-5.1) mg/dL Iron (65-175) UG/DL TIBC (228-460) UG/DL % Saturation (15.00-50.00) Transferrin (204.0-354.0) mg/dL 06/05/23 Range/Units 06:12 WBC (4.50-10.00) X 10*3/uL RBC (4.40-5.60) X 10*6/uL Hgb (13.0-17.0) d/dL Hct (39.6-50.0) % MCV (80.0-97.0) FL MCHC (32.0-37.0) d/dL RDW (11.5-14.5) % Neutrophils # (1.80-7.70) X 10*3/uL Sodium 131 L (135-145) mmol/L Potassium 6.1 H* (3.5-5.5) mmol/L Chloride 89 L (96-109) mmol/L Anion Gap 15.50 H (4.00-12.00) mmol/L BUN 66.7 H (9.0-27.0) mg/dL Creatinine 7.2 H* (0.6-1.5) mg/dL Est GFR (CKD-EPI) 7 L (>=60) BUN/Creatinine Ratio 9.26 L (12.00-20.00) Ratio Glucose (70-110) mg/dL POC Glucose (mg/dL) (70-110) mg/dL Phosphorus (2.4-5.1) mg/dL Iron (65-175) UG/DL TIBC (228-460) UG/DL % Saturation (15.00-50.00) Transferrin (204.0-354.0) mg/dL Assessment and Plan Plan: Assessment: 1. End-stage renal disease maintained on peritoneal dialysis. 2. Chronic kidney disease mineral bone disease maintained on PhosLo. Phosphorus level 5.4 dated 06/04/2023. 3. Diabetes mellitus. 4. Coronary disease with prior stenting. 5. Generalized debility. 6. Right inguinal infection status post incision and drainage of [facility] with wound VAC placement. 7. Anemia of chronic kidney disease maintained on Aranesp. 8. Hyperkalemia secondary to chronic kidney disease. Expect improvement postdialysis. Plan: Currently seen while undergoing hemodialysis. He will be maintained on hemodialysis on Saturday schedule outpatient while at rehab. Add IV iron. Repeat potassium level this afternoon. Renal diet. Maintain midodrine. May give extra dose during dialysis.
[2023-06-05 11:53] LABS: Glucose,Whole Blood 85 mg/dL (70-110)
[2023-06-05] MEDS: GABAPENTIN 100 MG CAP PO SCH ×3 (12:24→21:04)
[2023-06-05] MEDS: HEPARIN SODIUM,PORCINE 5,000 UNIT/ML 1 ML VIAL SQ SCH ×2 (12:24→21:07)
[2023-06-05] MEDS: SENNOSIDES-DOCUSATE SODIUM 1 EACH TAB PO SCH ×2 (12:25→21:04)
[2023-06-05] MEDS: FOLIC ACID-VIT B COMPLEX-VIT C 1 CAP PO SCH (12:25)
[2023-06-05] MEDS: CLOPIDOGREL 75 MG TAB PO SCH (12:25)
[2023-06-05] MEDS: RANOLAZINE 500 MG TAB.ER.12H PO SCH ×2 (12:25→21:06)
[2023-06-05] MEDS: CYANOCOBALAMIN 500 MCG TAB PO SCH (12:25)
[2023-06-05] MEDS: ISOSORBIDE MONONITRATE ER 30 MG TAB.ER.24H PO SCH (12:25)
[2023-06-05] MEDS: PANTOPRAZOLE 40 MG TABLET PO SCH ×2 (12:26→21:04)
[2023-06-05] MEDS: METOPROLOL TARTRATE 12.5 MG TAB PO SCH ×2 (12:26→21:12)
[2023-06-05] MEDS: ASPIRIN 81 MG PO SCH (12:26)
[2023-06-05] MEDS: SODIUM BICARBONATE TAB 650 MG TAB PO SCH (12:26)
--- NOTE | 2023-06-05 12:37 | P.GSCN ---
History of Present Illness Consult date: 06/05/23 Reason for Consult: Scrotal wound, history of Herminia's gangrene Requesting physician: Bronson Lara History of present illness: The patient is a 73-year-old white male who presented to [facility] on 04/25/2023 with evidence of necrotizing fasciitis of the right groin. He was transferred to [facility] for definitive management. He is undergoing peritoneal dialysis for end-stage renal disease. Review of Systems - Constitutional Denies chills, Denies fever Past Medical History Past Medical History: Coronary Artery Disease (CAD), Chest Pain / Angina, Heart Failure, COPD, Diabetes Mellitus, Dialysis, GERD/Reflux, GI Bleed, Hyperlipidemia, Hypertension, Myocardial Infarction (DE), Pneumonia, Renal D isease, Vascular Disorder Additional Past Medical History / Comment(s): Lower GI bleeds/suspect micro bleeds in intestine, occasional abdominal bloating, IDDM type II, neuropathy bilateral feet, ESRD with peritoneal dialysis ((cycler at night for 5 hours), past hemodialysis/spouse states she was told L upper arm fistula is plugged again, chronic anemia/transfusion of blood/iron, past partial SBO, benign colon polyps, chronic low back pain with bilateral sciatica, PVD, RLS, vertigo, insomnia, 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 Last Myocardial Infarction Date:: 03/2020 History of Any Multi-Drug Resistant Organisms: None Reported Past Surgical History: Cholecystectomy, Heart Catheterization With Stent Additional Past Surgical History / Comment(s): 03/25/20 R sublclavian mediport, R carotid stent done in [place], EGD/colonoscopy, endoscopic capsule, ORIF left wrist, aortagram, bilateral leg revascularizations/stents, left upper arm fistu la and on 12/15/21 had thrombectomy balloon angioplasty of L arm fistula, peritoneal dialysis catheter removal and insertion (11/23/21). surgery on groin, patient cant remember what type. Past Anesthesia/Blood Transfusion Reactions: No Reported Reaction Additional Past Anesthesia/Blood Transfusion Reaction / Comm: Pt has had multiple blood transfusions without reaction. Date of Last Stent Placement:: 03/2021 Past Psychological History: No Psychological Hx Reported, PTSD Additional Psychological History / Comment(s): Pt resides with his spouse. He has a cane and 2 mobility scooters. 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 He does not drive, his spouse drives and organizes his meds for him. Smoking Status: Current every day smoker Past Alcohol Use History: None Reported Additional Past Alcohol Use History / Comment(s): Pt started smoking in 1964 and is a 1 ppd smoker. Past Drug Use History: None Reported Additional Drug Use History / Comment(s): Occasional Marijuana use. - Past Family History Father History Unknown: Yes Mother Family Medical History: Cancer Additional Family Medical History / Comment(s): Mother from metastatic cancer pelvic origin. Medications and Allergies Home Medications Medication Instructions Recorded Confirmed Type Ergocalciferol (Vitamin D2) 1,250 mcg PO Q14D 07/18/17 06/01/23 History [Vitamin D2] DULoxetine HCL [Cymbalta] 20 mg PO HS@2200 10/27/20 06/01/23 History Melatonin 5 mg PO HS@2200 12/19/20 06/01/23 History Sennosides-Docusate Sodium 2 tab PO BID@1000,2200 12/31/20 06/01/23 History [Senokot-S] Gabapentin [Neurontin] 100 mg PO TID@1000,1430,2200 01/23/21 06/01/23 History Nitroglycerin Sl Tabs [Nitrostat] 0.4 mg SL Q5M PRN 01/23/21 06/01/23 History rOPINIRole HCL [Requip] 0.5 mg PO TID@1000,1430,2200 01/23/21 06/01/23 History Ondansetron [Zofran] 4 mg PO DAILY PRN 05/08/21 06/01/23 History oxyBUTYnin chloride [Ditropan] 5 mg PO HS@2200 06/28/21 06/01/23 History Lactulose [Constulose] 10 gm PO DAILY PRN 11/12/21 06/01/23 History Nephro-Deepa 1 tab PO DAILY@1000 11/12/21 06/01/23 History Omeprazole 40 mg PO BID@1000,2200 11/12/21 06/01/23 History Cyanocobalamin [Vitamin B-12] 1,000 mcg PO DAILY@1000 12/14/21 06/01/23 History Insulin Glargine,Hum.rec.anlog 25 units SQ HS@22001/12/23 06/01/23 History [Lantus Solostar Pen] Sodium Bicarbonate Tab 650 mg PO DAILY@1000 01/12/23 06/01/23 History Acetaminophen Tab [Tylenol] 650 mg PO Q6HR PRN tab 01/16/23 06/01/23 Rx Amiodarone [Cordarone] 200 mg PO DAILY@1430 02/18/23 06/01/23 History Calcium Acetate [PhosLo] 1,334 mg PO 5XD 02/18/23 06/01/23 History Insulin Aspart [NovoLOG Flexpen] 8 units SQ TID-W/MEALS 02/18/23 06/01/23 History Isosorbide Mononitrate ER [Imdur] 30 mg PO DAILY@1000 02/18/23 06/01/23 History Ranolazine [Ranexa] 500 mg PO BID@1000,2200 02/18/23 06/01/23 History Metoprolol Tartrate [Lopressor] 12.5 mg PO BID@1000,2200 02/23/23 06/01/23 History Albuterol Nebulized [Ventolin 2.5 mg INHALATION RT-Q4H PRN 04/25/23 06/01/23 History Nebulized] Atorvastatin Calcium [Lipitor] 40 mg PO HS@0 04/25/23 06/01/23 History Benzonatate 100 mg PO BID PRN 04/25/23 06/01/23 History Clopidogrel [Plavix] 75 mg PO DAILY@1000 04/25/23 06/01/23 History levOCARNitine 330 mg PO BID PRN 04/25/23 06/01/23 History oxyCODONE HCL [oxyCODONE HCL (IR)] 5 mg PO DAILY PRN 05/27/23 06/01/23 History Midodrine [ProAmatine] 10 mg PO AC-TID #180 tab 05/31/23 06/01/23 Rx Allergies Allergy/AdvReac Type Severity Reaction Status Date / Time Iodinated Contrast Media AdvReac CAN'T Verified 06/01/23 10:57 TAKE, RENAL DISEASE Iodine and Iodide Containing AdvReac CAN'T Verified 06/01/23 10:57 Produc TAKE, RENAL DISEASE Surgical - Exam Vital Signs Temp Pulse Resp BP Pulse Ox 97.8 F 69 18 101/55 97 06/01/23 06:44 06/01/23 06:44 06/01/23 06:44 06/01/23 06:44 06/01/23 06:44 - General well developed, well nourished, no distress - Respiratory normal respiratory effort - Genitourinary Wound VAC is present over the right inguinal region. There are 2 scrotal wounds. One is on the anterior left hemiscrotum and is superficial. The other is in the posterior midline, with some purulent drainage. The wound is probed and there does not appear to be an abscess cavity. There is no fluctuance. There is no necrotic tissue. - Psychiatric oriented to time, oriented to person, oriented to place, speech is normal, memory intact Results - Labs 06/05/23 06:12 06/05/23 06:12 Abnormal Lab Results - Last 24 Hours (Table) 06/03/23 06/04/23 06/04/23 Range/Units 13:03 06:13 07:34 Sodium 134 L (135-145) mmol/L Chloride 90 L (96-109) mmol/L Anion Gap 13.30 H (4.00-12.00) mmol/L BUN 48.2 H (9.0-27.0) mg/dL Creatinine 7.1 H* (0.6-1.5) mg/dL Est GFR (CKD-EPI) 8 L (>=60) BUN/Creatinine Ratio 6.79 L (12.00-20.00) Ratio Glucose 63 L (70-110) mg/dL POC Glucose (mg/dL) 58 L (70-110) mg/dL Phosphorus 5.4 H (2.4-5.1) mg/dL Iron 19 L (65-175) UG/DL TIBC 206 L (228-460) UG/DL % Saturation 9.22 L (15.00-50.00) Transferrin 147.0 L (204.0-354.0) mg/dL 06/04/23 06/04/23 06/04/23 Range/Units 07:49 08:08 08:34 Sodium (135-145) mmol/L Chloride (96-109) mmol/L Anion Gap (4.00-12.00) mmol/L BUN (9.0-27.0) mg/dL Creatinine (0.6-1.5) mg/dL Est GFR (CKD-EPI) (>=60) BUN/Creatinine Ratio (12.00-20.00) Ratio Glucose (70-110) mg/dL POC Glucose (mg/dL) 53 L 64 L 117 H (70-110) mg/dL Phosphorus (2.4-5.1) mg/dL Iron (65-175) UG/DL TIBC (228-460) UG/DL % Saturation (15.00-50.00) Transferrin (204.0-354.0) mg/dL 06/04/23 06/04/23 06/04/23 Range/Units 11:57 17:18 19:49 Sodium (135-145) mmol/L Chloride (96-109) mmol/L Anion Gap (4.00-12.00) mmol/L BUN (9.0-27.0) mg/dL Creatinine (0.6-1.5) mg/dL Est GFR (CKD-EPI) (>=60) BUN/Creatinine Ratio (12.00-20.00) Ratio Glucose (70-110) mg/dL POC Glucose (mg/dL) 245 H 138 H 220 H (70-110) mg/dL Phosphorus (2.4-5.1) mg/dL Iron (65-175) UG/DL TIBC (228-460) UG/DL % Saturation (15.00-50.00) Transferrin (204.0-354.0) mg/dL Diabetes panel 06/04/23 Range/Units 06:13 Sodium 134 L (135-145) mmol/L Potassium 5.1 (3.5-5.5) mmol/L Chloride 90 L (96-109) mmol/L Carbon Dioxide 30.7 (21.6-31.8) mmol/L BUN 48.2 H (9.0-27.0) mg/dL Creatinine 7.1 H* (0.6-1.5) mg/dL Glucose 63 L (70-110) mg/dL Calcium 9.2 (8.7-10.3) mg/dL Calcium panel 06/04/23 Range/Units 06:13 Calcium 9.2 (8.7-10.3) mg/dL Phosphorus 5.4 H (2.4-5.1) mg/dL Pituitary panel 06/04/23 Range/Units 06:13 Sodium 134 L (135-145) mmol/L Potassium 5.1 (3.5-5.5) mmol/L Chloride 90 L (96-109) mmol/L Carbon Dioxide 30.7 (21.6-31.8) mmol/L BUN 48.2 H (9.0-27.0) mg/dL Creatinine 7.1 H* (0.6-1.5) mg/dL Glucose 63 L (70-110) mg/dL Calcium 9.2 (8.7-10.3) mg/dL Adrenal panel 06/04/23 Range/Units 06:13 Sodium 134 L (135-145) mmol/L Potassium 5.1 (3.5-5.5) mmol/L Chloride 90 L (96-109) mmol/L Carbon Dioxide 30.7 (21.6-31.8) mmol/L BUN 48.2 H (9.0-27.0) mg/dL Creatinine 7.1 H* (0.6-1.5) mg/dL Glucose 63 L (70-110) mg/dL Calcium 9.2 (8.7-10.3) mg/dL - Imaging CT scan - pelvis: report reviewed, image reviewed Assessment and Plan (1) Fourniers gangrene Current Visit: Yes Status: Acute Code(s): N49.3 - HERMINIA GANGRENE SNOMED Code(s): 052591129 Plan: Would leave the wound VAC over right inguinal region. Pack scrotal wound with iodoform gauze. Patient should be receiving broad-spectrum antibiotics. Time with Patient: Greater than 30
--- NOTE | 2023-06-05 13:19 | P.PN ---
Subjective Progress Note Date: 06/05/23 Patient is a 73-year-old male male with a past medical history of ESRD on peritoneal dialysis, chronic systolic heart failure with previously known EF of 35%, CAD with previous stents, hypertension, hyperlipidemia, and diabetes mellitus. Presented to the emergency department with a chief complaint of increasing weakness, chest pain, and fall at home. Patient recently underwent hospitalization and ICU admission for pulmonary edema. Patient was discharged home on 05/31/23. Reports after going home he had difficulties ambulating resulting in recurrent falls due to weakness. Patient reports he was encouraged to go to a rehab facility prior to discharge but will not do hemodialysis and wanted to be discharged back home to continue his peritoneal dialysis. He reports he would've stayed home but developed pain to his midsternal chest so he came back to the hospital for evaluation. Upon arrival to our facility patient underwent full evaluation. EKG was completed showing normal sinus rhythm at 71 bpm with left bundle branch block upon personal review and interpretation. CBC showing mild leukocytosis with WBC count of 11.4, macrocytic anemia with hemoglobin of 9.3. BMP showing sodium 134, chloride 93, and elevated renal function consistent with ESRD with BUN 54, creatinine 7.36, and GFR of 7. Magnesium was low at 1.6. Alkaline phosphatase elevated at 164. Troponin 0.026 and pro-BMP 29,900. Patient admitted under our services to observation unit with telemetry for chest pain with consultation to both cardiology and nephrology. Troponins were trended and flat at 0.026, 0.028, and 0.026. Cardiology evaluated and ruled out out acute coronary event recommending no medication changes at this time and continued outpatient follow-up in their office upon discharge. Nephrology following and managing peritoneal dialysis, quality systems engineer is recommending patient be placed on temporary hemodialysis for discharge to snf facility. He also has a scrotal ulceration with retained wound VAC material. Urology consulted. Patient seen and examined at bedside. No acute events overnight. Physical exam: Vital signs reviewed and stable. General: Nontoxic, no distress and appears stated age. Derm: Skin warm and dry, normal coloration for ethnicity., Penile ulceration on the ventral aspect as well as inferior scrotum with wound VAC foam still in plac e and adhered, left chest hemodialysis catheter in place Head: Atraumatic, normocephalic and symmetric. Eyes: EOMs intact, no lid lag, and anicteric sclera Mouth: no lip lesions, mucus membranes moist Cardiovascular: regular rate and rhythm with normal S1S2, systolic murmur, positive posterior tibial pulses bilaterally, and cap refill < 2 seconds. Lungs: Respirations even, regular, and unlabored on room air. Lungs CTA bilaterally, no rhonchi, no rales, no wheezing, and no accessory muscle usage. Abdominal: soft and distended, nontender to palpation, no guarding, peritoneal dialysis catheter in place. Wound VAC in place right groin. Ext: ROM intact. No gross muscle atrophy, no edema, no contractures Neuro: Speech clear, face symmetrical and CN II-XII grossly intact with no noted focal neuro deficits Psych: Alert and oriented to person, place, time, and situation. Appropriate and pleasant affect. Patient does have episodes of confusion but is currently alert and oriented at this present time. Labs reviewed today: WBC 15.54, hemoglobin 9.2, sodium 131, potassium 6.1, creatinine 7.2, blood sugars range between 81-220 Assessment and Plan of Care: Scrotal ulceration, present on admission Leukocytosis -Urology note reviewed, plan to pack scrotal wound -Started on IV Zosyn -ID consulted Metabolic encephalopathy secondary to azotemia resulting from endstage renal disease, resolved Generalized weakness and debility with recurrent falls at home resulting from physical deconditioning secondary to advanced age and chronic illness Chest pain, acute coronary event ruled out, resolved History of CAD status post stents Hypertension Hyperlipidemia -Patient with intermittent confusion and generalized weakness progressively worsening resulting in inability to completely necessary ADLs. -Fall precautions in place. -Physical therapy following, recommending patient will need rehab upon discharge -Cardiology evaluated and ruled out out acute coronary event recommending no medication changes at this time and continued outpatient follow-up in their office upon discharge. -Continue Telemetry monitoring -Continue heart healthy renal diet -Continue daily medication regimen with aspirin 81 mg daily, atorvastatin 40 mg daily, Plavix 75 mg daily, isosorbide mononitrate 30 mg daily, metoprolol 12.5 mg twice daily, midodrine 10 mg 3 times daily with meals. ESRD Hyperkalemia -Nephrology note reviewed, will need hemodialysis Saturday and Saturday, also started on IV iron -Hyperkalemia should resolve with dialysis -Continuation of sodium bicarb 650 mg daily Insulin-dependent diabetes mellitus Had episodes of hypoglycemia Continue sliding scale insulin, Levemir decreased to 10 units, NovoLog decreased to 3 units 3 times a day Status post recent I&D and placement of wound VAC to right inguinal mass -Wound care following for management of wound VAC to right groin CODE STATUS: Full code DVT prophylaxis: Heparin Anticipated discharge date: Awaiting placement Anticipated discharge place: Patient to be discharged to snf facility Objective - Vital Signs Vital signs: Vital Signs Temp 98.0 F 06/05/23 12:09 Pulse 68 06/05/23 12:09 Resp 18 06/05/23 12:09 BP 122/61 06/05/23 12:09 Pulse Ox 92 L 06/05/23 12:00 FiO2 Intake & Output 06/04/23 06/05/23 06/05/23 18:59 06:59 18:59 Intake Total 540 0 300 Output Total 800 Balance 540 0 -500 Weight 65 kg 69.5 kg Intake: Oral 540 0 Hemodialysis 300 Output: Hemodialysis 800 Other: Voiding Method Bedside Commode Bedside Commode # Voids 0 # Bowel Movements 1 - Labs CBC & Chem 7: 06/05/23 06:12 06/05/23 06:12 Labs: Abnormal Lab Results - Last 24 Hours (Table) 06/04/23 06/04/23 06/05/23 Range/Units 17:18 19:49 06:12 WBC 15.54 H (4.50-10.00) X 10*3/uL RBC 3.01 L (4.40-5.60) X 10*6/uL Hgb 9.2 L (13.0-17.0) d/dL Hct 30.1 L (39.6-50.0) % MCV 100.0 H (80.0-97.0) FL MCHC 30.6 L (32.0-37.0) d/dL RDW 18.3 H (11.5-14.5) % Neutrophils # 13.44 H (1.80-7.70) X 10*3/uL Sodium (135-145) mmol/L Potassium (3.5-5.5) mmol/L Chloride (96-109) mmol/L Anion Gap (4.00-12.00) mmol/L BUN (9.0-27.0) mg/dL Creatinine (0.6-1.5) mg/dL Est GFR (CKD-EPI) (>=60) BUN/Creatinine Ratio (12.00-20.00) Ratio POC Glucose (mg/dL) 138 H 220 H (70-110) mg/dL 06/05/23 Range/Units 06:12 WBC (4.50-10.00) X 10*3/uL RBC (4.40-5.60) X 10*6/uL Hgb (13.0-17.0) d/dL Hct (39.6-50.0) % MCV (80.0-97.0) FL MCHC (32.0-37.0) d/dL RDW (11.5-14.5) % Neutrophils # (1.80-7.70) X 10*3/uL Sodium 131 L (135-145) mmol/L Potassium 6.1 H* (3.5-5.5) mmol/L Chloride 89 L (96-109) mmol/L Anion Gap 15.50 H (4.00-12.00) mmol/L BUN 66.7 H (9.0-27.0) mg/dL Creatinine 7.2 H* (0.6-1.5) mg/dL Est GFR (CKD-EPI) 7 L (>=60) BUN/Creatinine Ratio 9.26 L (12.00-20.00) Ratio POC Glucose (mg/dL) (70-110) mg/dL
[2023-06-05] MEDS: SODIUM FERRIC GLUCONAT-SUCROSE 125 MG in SODIUM CHLORIDE 0.9% 100 ML IVPB SCH (13:34)
[2023-06-05] MEDS: HYDROcodone/APAP 5-325MG 1 EACH TAB PO PRN (14:19)
[2023-06-05] MEDS: AMIODARONE 200 MG TAB PO SCH (14:19)
[2023-06-05] MEDS ORDERED: PIPERACILLIN-TAZOBACTAM 3.375 GM in SODIUM CHLORIDE 0.9% 100 ML IVPB SCH (16:00)
[2023-06-05 17:10] LABS: Glucose,Whole Blood 135 mg/dL (70-110)
[2023-06-05 19:56] LABS: Hepatitis B Surface Antigen Nonreactive
[2023-06-05 20:16] LABS: Glucose,Whole Blood 162 mg/dL (70-110)
[2023-06-05] MEDS: ATORVASTATIN 40 MG TAB PO SCH (21:05)
[2023-06-05] MEDS: oxyBUTYnin chloride 5 MG TAB PO SCH (21:06)
[2023-06-05] MEDS: DULoxetine HCL 20 MG CAPSULE.DR PO SCH (21:06)
[2023-06-05] MEDS: PIPERACILLIN-TAZOBACTAM 3.375 GM in SODIUM CHLORIDE 0.9% 100 ML IVPB SCH (21:07)
[2023-06-05] MEDS: INSULIN DETEMIR (LEVEMIR) 100 UNIT/ML SYR SQ SCH (21:07)
[2023-06-05] MEDS: MELATONIN 5 MG TABLET PO SCH (21:12)
--- NOTE | 2023-06-05 22:32 | P.CONS ---
History of Present Illness - Reason for Consult Consult date: 06/05/23 - History of Present Illness Patient is a 73-year-old male with a past medical his significant for diabetes mellitus COPD hypertension hyperlipidemia coronary artery disease, patient also have a history of necrotizing infection to the right groin and scrotal area for the patient was treated at [facility] patient apparently was in the hospital for about 3 weeks and get discharged about 2 weeks ago mention he was not sent home on any IV or oral antibiotic therapy patient was doing well presenting back to the hospital about 4 days ago for evaluation of weakness and fall patient denies having any loss of consciousness or head injury and denies having any fever or any chills and no fever has been recorded over the last 4 days here in the hospital patient denies having any headache or URI symptoms no chest pain no shortness with occasional cough no nausea no vomiting no abdominal pain or diarrhea patient wound to the groin and scrotal area currently healing patient denies having any worsening pain or drainage from those areas patient did have a elevated white count of 15.4 today but did have a normal white count of 11.4 on admission creatinine is mildly elevated patient did have a chest x-ray no pneumothorax inferior right lung base stable from comparison infectious disease was consulted today after the patient has been hospital for 4 days regarding recent groin abscess with wound VAC wound VAC was just changed to before my evaluation by the nursing staff mention no evidence of any purulence or drainage to the wound area Past Medical History Past Medical History: Coronary Artery Disease (CAD), Chest Pain / Angina, Heart Failure, COPD, Diabetes Mellitus, Dialysis, GERD/Reflux, GI Bleed, Hyperlipidemia, Hypertension, Myocardial Infarction ([place]), Pneumonia, Renal Disease, Vascular Disorder Additional Past Medical History / Comment(s): Lower GI bleeds/suspect micro bleeds in intestine, occasional abdominal bloating, IDDM type II, neuropathy bilateral feet, ESRD with peritoneal dialysis ((cycler at night for 5 hours), past hemodialysis/spouse states she was told L upper arm fistula is plugged again, chronic anemia/transfusion of blood/iron, past partial SBO, benign colon polyps, chronic low back pain with bilateral sciatica, PVD, RLS, vertigo, insomnia, 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 Last Myocardial Infarction Date:: 03/2020 History of Any Multi-Drug Resistant Organisms: None Reported Past Surgical History: Cholecystectomy, Heart Catheterization With Stent Additional Past Surgical History / Comment(s): 03/25/20 R sublclavian mediport, R carotid stent done in [place], EGD/colonoscopy, endoscopic capsule, ORIF left wrist, aortagram, bilateral leg revascularizations/stents, left upper arm fistula and on 12/15/21 had thrombectomy balloon angioplasty of L arm fistula, peritoneal dialysis catheter removal and insertion (11/23/21). surgery on groin, patient cant remember what type. Past Anesthesia/Blood Transfusion Reactions: No Reported Reaction Additional Past Anesthesia/Blood Transfusion Reaction / Comm: Pt has had multi ple blood transfusions without reaction. Date of Last Stent Placement:: 03/2021 Past Psychological History: No Psychological Hx Reported, PTSD Additional Psychological History / Comment(s): Pt resides with his spouse. He has a cane and 2 mobility scooters. 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 He does not drive, his spouse drives and organizes his meds for him. Smoking Status: Current every day smoker Past Alcohol Use History: None Reported Additional Past Alcohol Use History / Comment(s): Pt started smoking in 1964 and is a 1 ppd smoker. Past Drug Use History: None Reported Additional Drug Use History / Comment(s): Occasional Marijuana use. - Past Family History Father History Unknown: Yes Mother Family Medical History: Cancer Additional Family Medical History / Comment(s): Mother from metastatic cancer pelvic origin. Medications and Allergies Home Medications Medication Instructions Recorded Confirmed Type Ergocalciferol (Vitamin D2) 1,250 mcg PO Q14D 07/18/17 06/01/23 History [Vitamin D2] DULoxetine HCL [Cymbalta] 20 mg PO HS@2200 10/27/20 06/01/23 History Melatonin 5 mg PO HS@2200 12/19/20 06/01/23 History Sennosides-Docusate Sodium 2 tab PO BID@1000,0 12/31/20 06/01/23 History [Senokot-S] Gabapentin [Neurontin] 100 mg PO TID@1000,1430,2200 01/23/21 06/01/23 History Nitroglycerin Sl Tabs [Nitrostat] 0.4 mg SL Q5M PRN 01/23/21 06/01/23 History rOPINIRole HCL [Requip] 0.5 mg PO TID@1000,1430,2200 01/23/21 06/01/23 History Ondansetron [Zofran] 4 mg PO DAILY PRN 05/08/21 06/01/23 History oxyBUTYnin chloride [Ditropan] 5 mg PO HS@2200 06/28/21 06/01/23 History Lactulose [Constulose] 10 gm PO DAILY PRN 11/12/21 06/01/23 History Nephro-Deepa 1 tab PO DAILY@1000 11/12/21 06/01/23 History Omeprazole 40 mg PO BID@1000,0 11/12/21 06/01/23 History Cyanocobalamin [Vitamin B-12] 1,000 mcg PO DAILY@1000 12/14/21 06/01/23 History Insulin Glargine,Hum.rec.anlog 25 units SQ HS@219901/12/23 06/01/23 History [Lantus Solostar Pen] Sodium Bicarbonate Tab 650 mg PO DAILY@1000 01/12/23 06/01/23 History Acetaminophen Tab [Tylenol] 650 mg PO Q6HR PRN tab 01/16/23 06/01/23 Rx Amiodarone [Cordarone] 200 mg PO DAILY@1430 02/18/23 06/01/23 History Calcium Acetate [PhosLo] 1,334 mg PO 5XD 02/18/23 06/01/23 History Insulin Aspart [NovoLOG Flexpen] 8 units SQ TID-W/MEALS 02/18/23 06/01/23 History Isosorbide Mononitrate ER [Imdur] 30 mg PO DAILY@1000 02/18/23 06/01/23 History Ranolazine [Ranexa] 500 mg PO BID@1000,0 02/18/23 06/01/23 History Metoprolol Tartrate [Lopressor] 12.5 mg PO BID@1000,0 02/23/23 06/01/23 History Albuterol Nebulized [Ventolin 2.5 mg INHALATION RT-Q4H PRN 04/25/23 06/01/23 History Nebulized] Atorvastatin Calcium [Lipitor] 40 mg PO HS@219904/25/23 06/01/23 History Benzonatate 100 mg PO BID PRN 04/25/23 06/01/23 History Clopidogrel [Plavix] 75 mg PO DAILY@1000 04/25/23 06/01/23 History levOCARNitine 330 mg PO BID PRN 04/25/23 06/01/23 History oxyCODONE HCL [oxyCODONE HCL (IR)] 5 mg PO DAILY PRN 05/27/23 06/01/23 History Midodrine [ProAmatine] 10 mg PO AC-TID #180 tab 05/31/23 06/01/23 Rx Allergies Allergy/AdvReac Type Severity Reaction Status Date / Time Iodinated Contrast Media AdvReac CAN'T Verified 06/01/23 10:57 TAKE, RENAL DISEASE Iodine and Iodide Containing AdvReac CAN'T Verified 06/01/23 10:57 Produc TAKE, RENAL DISEASE Physical Exam Vitals: Vital Signs Temp Pulse Resp BP Pulse Ox 06/05/23 14:53 94.5 F L 67 16 101/53 86 L 06/05/23 12:09 98.0 F 68 18 122/61 06/05/23 12:00 92 L 06/05/23 11:22 97.3 F L 68 20 92/49 99 06/05/23 06:25 57 L 20 128/70 95 06/05/23 01:18 97.9 F 65 18 113/53 96 06/04/23 20:00 66 18 06/04/23 18:43 97.5 F L 66 18 101/54 97 Intake and Output 06/05/23 06/05/23 06/05/23 06:59 14:59 22:59 Intake Total 0 300 Output Total 800 Balance 0 -500 Intake: Oral 0 Hemodialysis 300 Output: Hemodialysis 800 Other: # Voids 0 # Bowel Movements 1 Weight 69.5 kg Results CBC & Chem 7: 06/05/23 06:12 06/05/23 16:45 Labs: Abnormal Lab Results - Last 24 Hours (Table) 06/04/23 06/04/23 06/05/23 Range/Units 17:18 19:49 06:12 WBC 15.54 H (4.50-10.00) X 10*3/uL RBC 3.01 L (4.40-5.60) X 10*6/uL Hgb 9.2 L (13.0-17.0) d/dL Hct 30.1 L (39.6-50.0) % MCV 100.0 H (80.0-97.0) FL MCHC 30.6 L (32.0-37.0) d/dL RDW 18.3 H (11.5-14.5) % Neutrophils # 13.44 H (1.80-7.70) X 10*3/uL Sodium (135-145) mmol/L Potassium (3.5-5.5) mmol/L Chloride (96-109) mmol/L Anion Gap (4.00-12.00) mmol/L BUN (9.0-27.0) mg/dL Creatinine (0.6-1.5) mg/dL Est GFR (CKD-EPI) (>=60) BUN/Creatinine Ratio (12.00-20.00) Ratio POC Glucose (mg/dL) 138 H 220 H (70-110) mg/dL 06/05/23 Range/Units 06:12 WBC (4.50-10.00) X 10*3/uL RBC (4.40-5.60) X 10*6/uL Hgb (13.0-17.0) d/dL Hct (39.6-50.0) % MCV (80.0-97.0) FL MCHC (32.0-37.0) d/dL RDW (11.5-14.5) % Neutrophils # (1.80-7.70) X 10*3/uL Sodium 131 L (135-145) mmol/L Potassium 6.1 H* (3.5-5.5) mmol/L Chloride 89 L (96-109) mmol/L Anion Gap 15.50 H (4.00-12.00) mmol/L BUN 66.7 H (9.0-27.0) mg/dL Creatinine 7.2 H* (0.6-1.5) mg/dL Est GFR (CKD-EPI) 7 L (>=60) BUN/Creatinine Ratio 9.26 L (12.00-20.00) Ratio POC Glucose (mg/dL) (70-110) mg/dL Assessment and Plan Plan: 1patient with recent history of necrotizing fasciitis requiring extensive surgery to the right groin scrotal area and [facility] with admission to the hospital this time for weakness and fall patient did not have any fever however noticed to have slight worsening of the white count over the last 3 days overall her wound to the scrotum and groin area healed healing well chest x-ray did not show any pneumonia and patient denies any significant respiratory symptoms abdominal was soft no evidence of any cellulitis 2-we will check blood culture and inflammatory markers 3-repeat a CBC with a.m. lab 4-continue local wound care to the right groin with a wound VAC in the scrotal wound with iodoform packing as ordered by the wound care We will follow on clinical condition and cultures to further adjust medication if needed Thank you for this consultation we will follow the patient along with you Dictation was produced using [email or web address] dictation software. please excuse any grammatical, word or spelling errors. Time with Patient: Greater than 30
[2023-06-06] MEDS: CALCIUM ACETATE 667 MG TAB PO SCH ×6 (06:10→23:57)
[2023-06-06] MEDS: HYDROcodone/APAP 5-325MG 1 EACH TAB PO PRN ×2 (06:13→15:37)
[2023-06-06 07:31] LABS: Glucose,Whole Blood 51 mg/dL (70-110)
[2023-06-06 07:58] LABS: Glucose,Whole Blood 58 mg/dL (70-110)
[2023-06-06] MEDS: INSULIN ASPART (NovoLOG) 100 UNIT/ML VIAL SQ SCH ×3 (08:03→12:00)
[2023-06-06 08:15] LABS: Glucose,Whole Blood 90 mg/dL (70-110)
[2023-06-06] MEDS: PIPERACILLIN-TAZOBACTAM 3.375 GM in SODIUM CHLORIDE 0.9% 100 ML IVPB SCH ×2 (08:37→20:54)
[2023-06-06] MEDS: GABAPENTIN 100 MG CAP PO SCH ×3 (08:39→21:36)
[2023-06-06] MEDS: CYANOCOBALAMIN 500 MCG TAB PO SCH (08:39)
[2023-06-06] MEDS: METOPROLOL TARTRATE 12.5 MG TAB PO SCH ×2 (08:39→21:36)
[2023-06-06] MEDS: CLOPIDOGREL 75 MG TAB PO SCH (08:39)
[2023-06-06] MEDS: ISOSORBIDE MONONITRATE ER 30 MG TAB.ER.24H PO SCH (08:39)
[2023-06-06] MEDS: SENNOSIDES-DOCUSATE SODIUM 1 EACH TAB PO SCH ×2 (08:40→21:36)
[2023-06-06] MEDS: SODIUM BICARBONATE TAB 650 MG TAB PO SCH (08:40)
[2023-06-06] MEDS: MIDODRINE 5 MG TAB PO SCH ×3 (08:40→16:43)
[2023-06-06] MEDS: PANTOPRAZOLE 40 MG TABLET PO SCH ×2 (08:40→21:36)
[2023-06-06] MEDS: ASPIRIN 81 MG PO SCH (08:40)
[2023-06-06] MEDS: RANOLAZINE 500 MG TAB.ER.12H PO SCH ×2 (08:41→21:36)
[2023-06-06] MEDS: HYDROPHILIC CREAM 180 GM TUBE TOPICAL SCH (08:41)
[2023-06-06] MEDS: FOLIC ACID-VIT B COMPLEX-VIT C 1 CAP PO SCH (08:41)
[2023-06-06] MEDS: HEPARIN SODIUM,PORCINE 5,000 UNIT/ML 1 ML VIAL SQ SCH ×2 (08:41→20:54)
[2023-06-06 11:01] LABS: Basophils # (A) 0.02 X 10*3/uL (0.00-0.10); Basophils % (A) 0.2 %; Eosinophils % (A) 0.8 %; HGB 8.9 d/dL (13.0-17.0); Lymphocytes # (A) 0.82 X 10*3/uL (0.90-5.00); Lymphocytes % (A) 6.9 %; MCH 30.5 pg (27.0-32.0); MCHC 29.7 d/dL (32.0-37.0); MCV 102.7 FL (80.0-97.0); Mean Platelet Volume 10.7 FL (9.5-12.2); Monocytes # (A) 0.79 X 10*3/uL (0.20-1.00); Monocytes % (A) 6.6 %; NRBC Per 100 WBC 0 X 10*3/uL (0.00-0.01); Neutrophils # (A) 10.15 X 10*3/uL (1.80-7.70); Neutrophils % (A) 84.9 %; Platelet Count 267 X 10*3/uL (140-440); RBC 2.92 X 10*6/uL (4.40-5.60); RDW 18.5 % (11.5-14.5); WBC 11.95 X 10*3/uL (4.50-10.00)
[2023-06-06] MEDS: SODIUM FERRIC GLUCONAT-SUCROSE 125 MG in SODIUM CHLORIDE 0.9% 100 ML IVPB SCH (11:15)
[2023-06-06 12:07] LABS: Glucose,Whole Blood 122 mg/dL (70-110)
--- NOTE | 2023-06-06 12:13 | P.PN ---
Subjective Patient is seen in follow-up for end-stage renal disease. Permacath placed 06/04/2023 to transition to hemodialysis while he is at rehab. Blood pressure on the lower side. Resting in bed. No active complaints. Vital signs are stable. General: No acute distress. HEENT: Head exam is unremarkable. LUNGS: No audible rhonchi or wheezes. HEART: Rate and Rhythm are regular. ABDOMEN: Nontender. EXTREMITITES: No edema. Objective - Vital Signs Vital signs: Vital Signs Temp 97.5 F L 06/06/23 07:55 Pulse 56 L 06/06/23 11:11 Resp 20 06/06/23 11:11 BP 100/46 06/06/23 11:11 Pulse Ox 96 06/06/23 11:11 FiO2 Intake & Output 06/05/23 06/06/23 06/06/23 18:59 06:59 18:59 Intake Total 400 400 354 Output Total 800 Balance -400 400 354 Weight 60.5 kg Intake: Intake, IV Titration 100 Amount Sodium Ferric Gluconat- 100 Sucrose 125 mg In Sodium Chloride 0.9% 100 ml @ 100 mls/hr IVPB DAILY [facility] Rx#:[id number] Oral 400 354 Hemodialysis 300 Output: Hemodialysis 800 Other: Voiding Method Bedside Commode Bedside Commode # Voids 0 # Bowel Movements 1 1 - Labs CBC & Chem 7: 06/06/23 06:05 06/05/23 16:45 Labs: Abnormal Lab Results - Last 24 Hours (Table) 06/05/23 06/05/23 06/05/23 Range/Units 10:00 17:07 20:08 WBC (4.50-10.00) X 10*3/uL RBC (4.40-5.60) X 10*6/uL Hgb (13.0-17.0) d/dL Hct (39.6-50.0) % MCV (80.0-97.0) FL MCHC (32.0-37.0) d/dL RDW (11.5-14.5) % Neutrophils # (1.80-7.70) X 10*3/uL Lymphocytes # (0.90-5.00) X 10*3/uL POC Glucose (mg/dL) 135 H 162 H (70-110) mg/dL Procalcitonin (0.02-0.09) ng/mL Hep Bs Antibody A (Negative) 06/06/23 06/06/23 06/06/23 Range/Units 06:05 06:05 07:10 WBC 11.95 H (4.50-10.00) X 10*3/uL RBC 2.92 L (4.40-5.60) X 10*6/uL Hgb 8.9 L (13.0-17.0) d/dL Hct 30.0 L (39.6-50.0) % MCV 102.7 H (80.0-97.0) FL MCHC 29.7 L (32.0-37.0) d/dL RDW 18.5 H (11.5-14.5) % Neutrophils # 10.15 H (1.80-7.70) X 10*3/uL Lymphocytes # 0.82 L (0.90-5.00) X 10*3/uL POC Glucose (mg/dL) 51 L (70-110) mg/dL Procalcitonin 0.73 H (0.02-0.09) ng/mL Hep Bs Antibody (Negative) 06/06/23 06/06/23 Range/Units 07:48 11:59 WBC (4.50-10.00) X 10*3/uL RBC (4.40-5.60) X 10*6/uL Hgb (13.0-17.0) d/dL Hct (39.6-50.0) % MCV (80.0-97.0) FL MCHC (32.0-37.0) d/dL RDW (11.5-14.5) % Neutrophils # (1.80-7.70) X 10*3/uL Lymphocytes # (0.90-5.00) X 10*3/uL POC Glucose (mg/dL) 58 L 122 H (70-110) mg/dL Procalcitonin (0.02-0.09) ng/mL Hep Bs Antibody (Negative) Assessment and Plan Plan: Assessment: 1. End-stage renal disease maintained on peritoneal dialysis. 2. Chronic kidney disease mineral bone disease maintained on PhosLo. Phosphorus level 5.4 dated 06/04/2023. 3. Diabetes mellitus. 4. Coronary disease with prior stenting. 5. Generalized debility. 6. Right inguinal infection status post incision and drainage of [facility] with wound VAC placement. 7. Anemia of chronic kidney disease maintained on Aranesp. 8. Hyperkalemia secondary to chronic kidney disease. Improved postdialysis. Plan: Hemodialysis tomorrow. Maintain IV iron. Renal diet. Maintain midodrine. May give extra dose during dialysis. Awaits authorization to rehab.
[2023-06-06 14:22] LABS: ALT 24 U/L (10-49); AST 15 U/L (14-35); Albumin 2.6 d/dL (3.8-4.9); Alkaline Phosphatase 132 U/L (41-126); BUN/Creat Ratio 9.36 Ratio (12.00-20.00); Blood Urea Nitrogen 41.2 mg/dL (9.0-27.0); Calcium 8.9 mg/dL (8.7-10.3); Carbon Dioxide 27.4 mmol/L (21.6-31.8); Chloride 99 mmol/L (96-109); Globulin 2.6 d/dL (1.6-3.3); Glucose 44 mg/dL (70-110); Potassium 5.1 mmol/L (3.5-5.5); Sodium 138 mmol/L (135-145); Total Bilirubin <0.2 mg/dL (0.3-1.2); Total Protein 5.2 d/dL (6.2-8.2)
[2023-06-06 15:33] VITALS: BMI 20.9
[2023-06-06] MEDS: AMIODARONE 200 MG TAB PO SCH (15:36)
[2023-06-06] MEDS: COLLAGENASE 250 UNIT/GM OINTMENT 30 GM TUBE TOPICAL SCH (15:36)
--- NOTE | 2023-06-06 15:53 | P.PN ---
Subjective Progress Note Date: 06/06/23 Principal diagnosis: debility, Gait impairment/impaired ADLs secondary to ESRD, chest pain, wound, generalized weakness Mr. Egan is a 73-year-old male, right handed, , who lives in a 1 story home, with 3 ANDRES, but has a wheel chair ramp. Prior to admission, he was ambulating with a 2ww, 4ww and uses a wheel chair. He was needed assistance at times for basic/advanced ADLs. Current driving: no. Transportation by: family. Retired: yes. Support system: daughter lives with patient to help on an as needed basis. Daughter performs the patient peritoneal dialysis Patient arrived via EMS to [facility] on 06/01 with complaints of chest pain, increased weakness and falls. He was admitted with chest pain and a consultation to vascular surgery, cardiology and nephrology. Of note, the patient was discharged on 05/31 from . He was admitted on 05/27. He presented to the ED c/o bilateral lower extremity edema. This edema had progressed over several days. Of note, patient is dependent on peritoneal dialysis. Patient was also recently hospitalized for a right inguinal necrotizing infected mass with subsequent transfer to [facility]. He currently has a wound VAC for the right inguinal wound. Patient reported that he had been feeling more weak and SOB several days prior to presentation to the EC. In the EC he had a chest x-ray completed, concerning for CHF. Labs on arrival showed WBCs of 11.2, potassium 7.3, creatinine 8.73, BNP 20,300. atient was admitted to the ICU with a diagnosis of hyperkalemia and pulmonary edema. He was started on antibiotics. Consults were placed to wound care, general surgery and nephrology. Patient received medications for the hyperkalemia. His PD cath was evaluated for patency and found to be working. PD was resumed in the hospital. PM&R consulted for rehab recommendations. Therapy evaluations reviewed; patient needing 05/30/2023, patient was evaluated. Daughter and at bedside. At that time patient refused to temporarily switch from peritoneal dialysis to hemodialysis. Advised patient that his rehab choices would be very slim as rehab centers do not accept patients with peritoneal dialysis. Patient refused hemodialysis and decided to be discharged home. 06/03/23:Saw patient at bedside. He is going for permcath to start hemodialysis 06/06/23: Patient had a permacath placed to transition to hemodialysis while he is in rehab. Per EMR documentation patient has received hemodialysis and is tolerating it well, other than some lower blood pressures. Patient is on midodrine. Therapy evaluations as of 06/06 reviewed, patient needing mod assist for bathing, max assist for LB dressing, min assist for grooming, max assist for toileting ability with improved mobility tolerance today per therapy documentation. I had a conversation with patient and called his to again discuss IPR. He has significant debility and is below baseline function. He would benefit from IPR course given his multiple medical comorbidities, monitored HD (new to HD), with the hope of decreasing caregiver burden. Objective - Vital Signs Vital signs: Vital Signs Temp 96.3 F L 06/06/23 12:38 Pulse 59 L 06/06/23 15:29 Resp 20 06/06/23 12:38 BP 106/57 06/06/23 12:38 Pulse Ox 98 06/06/23 12:38 FiO2 Intake & Output 06/05/23 06/06/23 06/06/23 18:59 06:59 18:59 Intake Total 400 400 354 Output Total 800 Balance -400 400 354 Weight 60.5 kg 60.5 kg Intake: Intake, IV Titration 100 Amount Sodium Ferric Gluconat- 100 Sucrose 125 mg In Sodium Chloride 0.9% 100 ml @ 100 mls/hr IVPB DAILY [facility] Rx#:[id number] Oral 400 354 Hemodialysis 300 Output: Hemodialysis 800 Other: Voiding Method Bedside Commode Bedside Commode # Voids 0 # Bowel Movements 1 1 - Exam EXAM; General: WDWN, male resting in bed with family at bedside, NAD Head: Normocephalic, atraumatic. Eyes: Symmetric Ears: Symmetric. Hearing within normal limits. Mouth: Clear, poor dentition Neck: Supple. Cardiac: environmental monitoring technician in place. Calves supple, non tender, no edema Lungs: Breathing comfortably on RA. Chest symmetric. Abdomen: Soft, nontender, PD port in place Extremities: Arthritic changes consistent with age. Neurological: Alert and oriented x 3. Speech is clear and fluent without paraphasic errors Cranial nerves: CN II-XII: intact. Sensation: Intact and symmetrical limbs. Musculoskeletal: ROM WFL EXCEPT: decreased right due to groin wound MMT UE Sh Abd EE EF FABD WE HG Right 4 4 4 4 4 4 Left 4 4 4 4 4 4 MMT LE HF KE DF EHL Right 2 3 4 4 Left 3+ 3+ 4 4 Reflexes Biceps Triceps Brachioradialis Patella Achilles Babinski Hoffmans Right 2 2 2 2 Left 2 2 2 2 Skin: Skin intact where visible to head, neck, and bilateral upper and lower extremities EXCEPT: PIV, bilat UE areas of ecchymosis and scabbing, large right groin open wound with tunneling to scrotum. Area of skin breakdown on penis shaft, , several stitches to right scrotum, area of breakdown left scrotum, smaller wound to right hip Psych: Calm, cooperative - Labs CBC & Chem 7: 06/06/23 06:05 06/06/23 06:05 Labs: Abnormal Lab Results - Last 24 Hours (Table) 06/05/23 06/05/23 06/05/23 Range/Units 10:00 17:07 20:08 WBC (4.50-10.00) X 10*3/uL RBC (4.40-5.60) X 10*6/uL Hgb (13.0-17.0) d/dL Hct (39.6-50.0) % MCV (80.0-97.0) FL MCHC (32.0-37.0) d/dL RDW (11.5-14.5) % Neutrophils # (1.80-7.70) X 10*3/uL Lymphocytes # (0.90-5.00) X 10*3/uL BUN (9.0-27.0) mg/dL Creatinine (0.6-1.5) mg/dL Est GFR (CKD-EPI) (>=60) BUN/Creatinine Ratio (12.00-20.00) Ratio Glucose (70-110) mg/dL POC Glucose (mg/dL) 135 H 162 H (70-110) mg/dL Total Bilirubin (0.3-1.2) mg/dL Alkaline Phosphatase (41-126) U/L Total Protein (6.2-8.2) d/dL Albumin (3.8-4.9) d/dL Albumin/Globulin Ratio (1.60-3.17) Ratio Procalcitonin (0.02-0.09) ng/mL Hep Bs Antibody A (Negative) 06/06/23 06/06/23 06/06/23 Range/Units 06:05 06:05 06:05 WBC 11.95 H (4.50-10.00) X 10*3/uL RBC 2.92 L (4.40-5.60) X 10*6/uL Hgb 8.9 L (13.0-17.0) d/dL Hct 30.0 L (39.6-50.0) % MCV 102.7 H (80.0-97.0) FL MCHC 29.7 L (32.0-37.0) d/dL RDW 18.5 H (11.5-14.5) % Neutrophils # 10.15 H (1.80-7.70) X 10*3/uL Lymphocytes # 0.82 L (0.90-5.00) X 10*3/uL BUN 41.2 H (9.0-27.0) mg/dL Creatinine 4.4 H (0.6-1.5) mg/dL Est GFR (CKD-EPI) 13 L (>=60) BUN/Creatinine Ratio 9.36 L (12.00-20.00) Ratio Glucose 44 H* (70-110) mg/dL POC Glucose (mg/dL) (70-110) mg/dL Total Bilirubin <0.2 L (0.3-1.2) mg/dL Alkaline Phosphatase 132 H (41-126) U/L Total Protein 5.2 L (6.2-8.2) d/dL Albumin 2.6 L (3.8-4.9) d/dL Albumin/Globulin Ratio 1.00 L (1.60-3.17) Ratio Procalcitonin 0.73 H (0.02-0.09) ng/mL Hep Bs Antibody (Negative) 06/06/23 06/06/23 06/06/23 Range/Units 07:10 07:48 11:59 WBC (4.50-10.00) X 10*3/uL RBC (4.40-5.60) X 10*6/uL Hgb (13.0-17.0) d/dL Hct (39.6-50.0) % MCV (80.0-97.0) FL MCHC (32.0-37.0) d/dL RDW (11.5-14.5) % Neutrophils # (1.80-7.70) X 10*3/uL Lymphocytes # (0.90-5.00) X 10*3/uL BUN (9.0-27.0) mg/dL Creatinine (0.6-1.5) mg/dL Est GFR (CKD-EPI) (>=60) BUN/Creatinine Ratio (12.00-20.00) Ratio Glucose (70-110) mg/dL POC Glucose (mg/dL) 51 L 58 L 122 H (70-110) mg/dL Total Bilirubin (0.3-1.2) mg/dL Alkaline Phosphatase (41-126) U/L Total Protein (6.2-8.2) d/dL Albumin (3.8-4.9) d/dL Albumin/Globulin Ratio (1.60-3.17) Ratio Procalcitonin (0.02-0.09) ng/mL Hep Bs Antibody (Negative) Assessment and Plan Assessment: #Gait impairment/impaired ADLs secondary to ESRD, chest pain, wound, generalized weakness #Recent hospitalization for acute exacerbation of CHF with systolic dysfunction, fluid overload #Dyspnea secondary to above #End-stage renal disease dependent on peritoneal dialysis -06/06/2023: Patient now started on hemodialysis #hyperkalemia -06/06/23-should resolve with dialysis #Necrotizing right inguinal wound infection s/p I&D and wound VAC -06/06/2023: Wound care following #Hypotension -Midodrine #Anemia of chronic disease #CAD with history of AR # Bowel/ Bladder: # Diet -Renal diet/cardiac low potassium, low phosphorus, 1500 cc fluid restriction, Juan Alberto twice daily # Skin/wound: Skin/Wound care to follow as needed # Pain Management -Tylenol 650 mg every 6 hours as needed, Gabapentin 100 mg 3 times daily, oxycodone 5 mg daily as needed for wound VAC changes, [place] 5/325 mg every 6 hours as needed # DVT Prophylaxis: -Subcu heparin # Comorbidities: hyperlipidemia, hypertension, COPD, A-fib, DM type II # Your medical dx and mgt Goals: Modified Independent mobility and ADLS both basic and advanced; increased functional mobility/strength; increased balance, safety, endurance. Improvement in medical issues through your care. Barriers: Endurance, pain, wound, peritoneal dialysis dependent Discharge recommendation: IPR at discharge. Authorization sent. Patient motivated and requiring mod to max assistance. I had a conversation with patient and called his to again discuss IPR. He has significant debility and is below baseline function. He would benefit from IPR course given his multiple medical comorbidities, monitored HD (new to HD), w ith the hope of decreasing caregiver burden. Patient seen and examined by Dr. Lopez Note prepped by Nneka Marroquin NP-C Author: Nneka Marroquin NP
--- NOTE | 2023-06-06 16:49 | P.PN ---
Subjective Progress Note Date: 06/06/23 Hospital Course: Patient is a 73-year-old male male with a past medical history of ESRD on peritoneal dialysis, chronic systolic heart failure with previously known EF of 35%, CAD with previous stents, hypertension, hyperlipidemia, and diabetes mellitus. Presented to the emergency department with a chief complaint of increasing weakness, chest pain, and fall at home. Patient recently underwent hospitalization and ICU admission for pulmonary edema. Patient was discharged home on 05/31/23. Reports after going home he had difficulties ambulating resulting in recurrent falls due to weakness. Patient reports he was encouraged to go to a rehab facility prior to discharge but will not do hemodialysis and wanted to be discharged back home to continue his peritoneal dialysis. He reports he would've stayed home but developed pain to his midsternal chest so he came back to the hospital for evaluation. Upon arrival to our facility patient underwent full evaluation. EKG was completed showing normal sinus rhythm at 71 bpm with left bundle branch block upon personal review and interpretation. CBC showing mild leukocytosis with WBC count of 11.4, macrocytic anemia with hemoglobin of 9.3. BMP showing sodium 134, chloride 93, and elevated renal function consistent with ESRD with BUN 54, creatinine 7.36, and GFR of 7. Magnesium was low at 1.6. Alkaline phosphatase elevated at 164. Troponin 0.026 and pro-BMP 29,900. Patient admitted under our services to observation unit with telemetry for chest pain with consultation to both cardiology and neph rology. Troponins were trended and flat at 0.026, 0.028, and 0.026. Cardiology evaluated and ruled out out acute coronary event recommending no medication changes at this time and continued outpatient follow-up in their office upon discharge. Nephrology following and managing peritoneal dialysis, crm architect is recommending patient be placed on temporary hemodialysis for much-needed discharged to shelter facility. Patient and are in agreement for patient to undergo temporary hemodialysis while receiving rehab. Vascular surgery was consulted and patient had permacath placed to left jugular on 06/03/23. Wound care and urology also following for management of right inguinal mass status post recent I&D and placement of wound VAC as well as sacral ulcer which was present upon arrival. Physical exam: Patient seen and fully evaluated at bedside this morning. Patient was resting comfortably and easily awoken via verbal stimuli. Patient reports feeling tired and fatigued. Patient was hypoglycemic this morning with blood glucose of 44. Patient has had recurrent episodes of hypoglycemia throughout hospitalization. Vital signs reviewed and stable. General: Nontoxic, no distress and appears stated age. Derm: Skin warm and dry, normal coloration for ethnicity. Head: Atraumatic, normocephalic and symmetric. Eyes: EOMs intact, no lid lag, and anicteric sclera Mouth: no lip lesions, mucus membranes moist Cardiovascular: regular rate and rhythm with normal S1S2, systolic murmur, positive posterior tibial pulses bilaterally, and cap refill < 2 seconds. Lungs: Respirations even, regular, and unlabored on room air. Lungs CTA bilaterally, no rhonchi, no rales, no wheezing, and no accessory muscle usage. Abdominal: soft and distended, nontender to palpation, no guarding, peritoneal dialysis catheter in place. Wound VAC in place right groin. Ext: ROM intact. No gross muscle atrophy, no edema, no contractures Neuro: Speech clear, face symmetrical and CN II-XII grossly intact with no noted focal neuro deficits Psych: Alert and oriented to person, place, time, and situation. Appropriate and pleasant affect. Patient does have episodes of confusion but is currently alert and oriented at this present time. Assessment and Plan of Care: Scrotal ulceration, present on admission History of necrotizing infection to right groin/scrotal region Status post recent I&D of right groin and placement of wound VAC Leukocytosis -Wound care following for wound care orders and management of wound VAC -Urology following recommending leaving wound VAC over right inguinal region., and Packing scrotal wound with iodoform gauze. Patient should be receiving broad-spectrum antibiotics. -Infectious disease following, recommending continuation of current IV antibiotics and obtaining blood cultures, inflammatory markers, and repeat CBC. -Continue IV antibiotics with Zosyn 3.375 g every 12 hours pending further recommendations from infectious disease. Hypoglycemia, Insulin-dependent diabetes mellitus with Recurrent episodes of hypoglycemia -NovoLog sliding scale, Levemir 10 units nightly and scheduled NovoLog 3 units 3 times daily were all discontinued at this time. Patient to remain on glycemic protocol. Hemoglobin A1c 6.5%. Patient will likely be discharged without insulin. Metabolic encephalopathy secondary to azotemia resulting from endstage renal disease Generalized weakness and debility with recurrent falls at home resulting from physical deconditioning secondary to advanced age and chronic illness Chest pain, acute coronary event ruled out History of CAD status post stents Hypertension Hyperlipidemia -Patient with intermittent confusion and generalized weakness progressively worsening resulting in inability to completely necessary ADLs. -Fall precautions in place. -Physical therapy following, recommending patient will need rehab upon discharge -Cardiology evaluated and ruled out out acute coronary event recommending no medication changes at this time and continued outpatient follow-up in their office upon discharge. -Continue Telemetry monitoring -Continue heart healthy renal diet -Continue daily medication regimen with aspirin 81 mg daily, atorvastatin 40 mg daily, Plavix 75 mg daily, isosorbide mononitrate 30 mg daily, metoprolol 12.5 mg twice daily, midodrine 10 mg 3 times daily with meals. ESRD Hyperkalemia, resolved after hemodialysis -Nephrology following for management of dialysis. -Vascular surgery placed permacath to left jugular on 06/03/23. -Patient started on hemodialysis and she'll undergo hemodialysis Mondays/Wednesdays/Fridays -Order placed for consult to vascular surgery for permacath placement as patient and his are in agreement for transitioning to hemodialysis so patient can go to shelter facility as needed for rehab -Continuation of sodium bicarb 650 mg daily CODE STATUS: Full code DVT prophylaxis: Heparin Discussed with: Pt, patient's , RN, and infectious disease physician Anticipated discharge date: Awaiting placement Anticipated discharge place: Patient to be discharged to shelter facility Patient was seen independently by Nurse Practitioner. This document was prepared using mii dictation software. Please allow for errors in carriage rider while rare they do occur. I reviewed the documentation as provided by the LUDY above, who is the original author of this note. I agree with the documented assessment and plan, with the following changes: none Objective - Vital Signs Vital signs: Vital Signs Temp 97.5 F L 06/06/23 07:55 Pulse 61 06/06/23 07:55 Resp 20 06/06/23 07:55 BP 105/57 06/06/23 07:55 Pulse Ox 96 06/06/23 08:23 FiO2 Intake & Output 06/05/23 06/06/23 06/06/23 18:59 06:59 18:59 Intake Total 400 400 354 Output Total 800 Balance -400 400 354 Weight 60.5 kg Intake: Intake, IV Titration 100 Amount Sodium Ferric Gluconat- 100 Sucrose 125 mg In Sodium Chloride 0.9% 100 ml @ 100 mls/hr IVPB DAILY [facility] Rx#:[id number] Oral 400 354 Hemodialysis 300 Output: Hemodialysis 800 Other: Voiding Method Bedside Commode # Voids 0 # Bowel Movements 1 1 - Labs CBC & Chem 7: 06/06/23 06:05 06/06/23 06:05 Labs: Abnormal Lab Results - Last 24 Hours (Table) 06/05/23 06/05/23 06/05/23 Range/Units 06:12 06:12 10:00 WBC 15.54 H (4.50-10.00) X 10*3/uL RBC 3.01 L (4.40-5.60) X 10*6/uL Hgb 9.2 L (13.0-17.0) d/dL Hct 30.1 L (39.6-50.0) % MCV 100.0 H (80.0-97.0) FL MCHC 30.6 L (32.0-37.0) d/dL RDW 18.3 H (11.5-14.5) % Neutrophils # 13.44 H (1.80-7.70) X 10*3/uL Sodium 131 L (135-145) mmol/L Potassium 6.1 H* (3.5-5.5) mmol/L Chloride 89 L (96-109) mmol/L Anion Gap 15.50 H (4.00-12.00) mmol/L BUN 66.7 H (9.0-27.0) mg/dL Creatinine 7.2 H* (0.6-1.5) mg/dL Est GFR (CKD-EPI) 7 L (>=60) BUN/Creatinine Ratio 9.26 L (12.00-20.00) Ratio POC Glucose (mg/dL) (70-110) mg/dL Hep Bs Antibody A (Negative) 06/05/23 06/05/23 06/06/23 Range/Units 17:07 20:08 07:10 WBC (4.50-10.00) X 10*3/uL RBC (4.40-5.60) X 10*6/uL Hgb (13.0-17.0) d/dL Hct (39.6-50.0) % MCV (80.0-97.0) FL MCHC (32.0-37.0) d/dL RDW (11.5-14.5) % Neutrophils # (1.80-7.70) X 10*3/uL Sodium (135-145) mmol/L Potassium (3.5-5.5) mmol/L Chloride (96-109) mmol/L Anion Gap (4.00-12.00) mmol/L BUN (9.0-27.0) mg/dL Creatinine (0.6-1.5) mg/dL Est GFR (CKD-EPI) (>=60) BUN/Creatinine Ratio (12.00-20.00) Ratio POC Glucose (mg/dL) 135 H 162 H 51 L (70-110) mg/dL Hep Bs Antibody (Negative) 06/06/23 Range/Units 07:48 WBC (4.50-10.00) X 10*3/uL RBC (4.40-5.60) X 10*6/uL Hgb (13.0-17.0) d/dL Hct (39.6-50.0) % MCV (80.0-97.0) FL MCHC (32.0-37.0) d/dL RDW (11.5-14.5) % Neutrophils # (1.80-7.70) X 10*3/uL Sodium (135-145) mmol/L Potassium (3.5-5.5) mmol/L Chloride (96-109) mmol/L Anion Gap (4.00-12.00) mmol/L BUN (9.0-27.0) mg/dL Creatinine (0.6-1.5) mg/dL Est GFR (CKD-EPI) (>=60) BUN/Creatinine Ratio (12.00-20.00) Ratio POC Glucose (mg/dL) 58 L (70-110) mg/dL Hep Bs Antibody (Negative)
[2023-06-06 17:06] LABS: Glucose,Whole Blood 176 mg/dL (70-110)
[2023-06-06 20:49] LABS: Glucose,Whole Blood 197 mg/dL (70-110)
[2023-06-06] MEDS: ONDANSETRON 4 MG TAB PO PRN (20:53)
[2023-06-06] MEDS: MELATONIN 5 MG TABLET PO SCH (21:36)
[2023-06-06] MEDS: DULoxetine HCL 20 MG CAPSULE.DR PO SCH (21:36)
[2023-06-06] MEDS: oxyBUTYnin chloride 5 MG TAB PO SCH (21:36)
[2023-06-06] MEDS: ATORVASTATIN 40 MG TAB PO SCH (21:36)
--- NOTE | 2023-06-06 21:50 | P.PN ---
Subjective Progress Note Date: 06/06/23 Principal diagnosis: Scrotal wound The patient denies genital pain at this time. Objective - Vital Signs Vital signs: Vital Signs Temp 95.4 F L 06/06/23 16:28 Pulse 57 L 06/06/23 17:27 Resp 16 06/06/23 16:28 BP 118/59 06/06/23 17:27 Pulse Ox 98 06/06/23 17:27 FiO2 Intake & Output 06/06/23 06/06/23 06/07/23 06:59 18:59 06:59 Intake Total 400 554 Balance 400 554 Weight 60.5 kg 60.5 kg Intake: Intake, IV Titration 200 Amount Piperacillin-Tazobactam 3 100 .375 gm In Sodium Chloride 0.9% 100 ml @ 25 mls/hr IVPB Q12HR [facility] Rx #:[id number] Sodium Ferric Gluconat- 100 Sucrose 125 mg In Sodium Chloride 0.9% 100 ml @ 100 mls/hr IVPB DAILY [facility] Rx#:[id number] Oral 400 354 Other: Voiding Method Bedside Commode Bedside Commode # Voids 0 # Bowel Movements 1 - Constitutional General appearance: Present: average body habitus, no acute distress - Genitourinary Genitourinary Comment(s): The wound VAC over the right inguinal region is intact. The superficial anter ior scrotal wound is clean. The posterior scrotal wound is packed with iodoform gauze. There is no purulence or necrotic tissue. There is no fluctuance. - Psychiatric Psychiatric: Present: A&O x's 3 - Labs CBC & Chem 7: 06/06/23 06:05 06/06/23 06:05 Labs: Abnormal Lab Results - Last 24 Hours (Table) 06/06/23 06/06/23 06/06/23 Range/Units 06:05 06:05 06:05 WBC 11.95 H (4.50-10.00) X 10*3/uL RBC 2.92 L (4.40-5.60) X 10*6/uL Hgb 8.9 L (13.0-17.0) d/dL Hct 30.0 L (39.6-50.0) % MCV 102.7 H (80.0-97.0) FL MCHC 29.7 L (32.0-37.0) d/dL RDW 18.5 H (11.5-14.5) % Neutrophils # 10.15 H (1.80-7.70) X 10*3/uL Lymphocytes # 0.82 L (0.90-5.00) X 10*3/uL BUN 41.2 H (9.0-27.0) mg/dL Creatinine 4.4 H (0.6-1.5) mg/dL Est GFR (CKD-EPI) 13 L (>=60) BUN/Creatinine Ratio 9.36 L (12.00-20.00) Ratio Glucose 44 H* (70-110) mg/dL POC Glucose (mg/dL) (70-110) mg/dL Total Bilirubin <0.2 L (0.3-1.2) mg/dL Alkaline Phosphatase 132 H (41-126) U/L C-Reactive Protein (0.00-0.80) mg/dL Total Protein 5.2 L (6.2-8.2) d/dL Albumin 2.6 L (3.8-4.9) d/dL Albumin/Globulin Ratio 1.00 L (1.60-3.17) Ratio Procalcitonin 0.73 H (0.02-0.09) ng/mL 06/06/23 06/06/23 06/06/23 Range/Units 06:05 07:10 07:48 WBC (4.50-10.00) X 10*3/uL RBC (4.40-5.60) X 10*6/uL Hgb (13.0-17.0) d/dL Hct (39.6-50.0) % MCV (80.0-97.0) FL MCHC (32.0-37.0) d/dL RDW (11.5-14.5) % Neutrophils # (1.80-7.70) X 10*3/uL Lymphocytes # (0.90-5.00) X 10*3/uL BUN (9.0-27.0) mg/dL Creatinine (0.6-1.5) mg/dL Est GFR (CKD-EPI) (>=60) BUN/Creatinine Ratio (12.00-20.00) Ratio Glucose (70-110) mg/dL POC Glucose (mg/dL) 51 L 58 L (70-110) mg/dL Total Bilirubin (0.3-1.2) mg/dL Alkaline Phosphatase (41-126) U/L C-Reactive Protein 11.60 H (0.00-0.80) mg/dL Total Protein (6.2-8.2) d/dL Albumin (3.8-4.9) d/dL Albumin/Globulin Ratio (1.60-3.17) Ratio Procalcitonin (0.02-0.09) ng/mL 06/06/23 06/06/23 06/06/23 Range/Units 11:59 17:05 20:47 WBC (4.50-10.00) X 10*3/uL RBC (4.40-5.60) X 10*6/uL Hgb (13.0-17.0) d/dL Hct (39.6-50.0) % MCV (80.0-97.0) FL MCHC (32.0-37.0) d/dL RDW (11.5-14.5) % Neutrophils # (1.80-7.70) X 10*3/uL Lymphocytes # (0.90-5.00) X 10*3/uL BUN (9.0-27.0) mg/dL Creatinine (0.6-1.5) mg/dL Est GFR (CKD-EPI) (>=60) BUN/Creatinine Ratio (12.00-20.00) Ratio Glucose (70-110) mg/dL POC Glucose (mg/dL) 122 H 176 H 197 H (70-110) mg/dL Total Bilirubin (0.3-1.2) mg/dL Alkaline Phosphatase (41-126) U/L C-Reactive Protein (0.00-0.80) mg/dL Total Protein (6.2-8.2) d/dL Albumin (3.8-4.9) d/dL Albumin/Globulin Ratio (1.60-3.17) Ratio Procalcitonin (0.02-0.09) ng/mL Assessment and Plan Assessment: The patient's wounds are clean at this time. He is now receiving Zosyn. 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 - Continue to pack scrotal wound with iodoform gauze. - Continue Zosyn.
--- NOTE | 2023-06-06 23:38 | P.PN ---
Subjective Progress Note Date: 06/06/23 Principal diagnosis: scrotal wound Patient is a 73-year-old male with a past medical his significant for diabetes mellitus COPD hypertension hyperlipidemia coronary artery disease, patient also have a history of necrotizing infection to the right groin and scrotal area for the patient was treated at [facility], patient current did have wound to the right groin and scrotal area. On today's evaluation that is 06/06/2023, the patient denies having any fever or any chills he is breathing comfortably on room air denies any chest pain shortness of breath or cough has been complaining of some abdominal pain no pain to the right groin scrotal wound area and no diarrhea has been reported. Patient white count is down to 11.95 creatinine is 4.4., Patient did have a CRP of 11.60 procalcitonin 0.73 cultures are currently pending Objective - Vital Signs Vital signs: Vital Signs Temp 96.3 F L 06/06/23 12:38 Pulse 57 L 06/06/23 12:38 Resp 20 06/06/23 12:38 BP 106/57 06/06/23 12:38 Pulse Ox 98 06/06/23 12:38 FiO2 Intake & Output 06/05/23 06/06/23 06/06/23 18:59 06:59 18:59 Intake Total 400 400 354 Output Total 800 Balance -400 400 354 Weight 60.5 kg Intake: Intake, IV Titration 100 Amount Sodium Ferric Gluconat- 100 Sucrose 125 mg In Sodium Chloride 0.9% 100 ml @ 100 mls/hr IVPB DAILY [facility] Rx#:[id number] Oral 400 354 Hemodialysis 300 Output: Hemodialysis 800 Other: Voiding Method Bedside Commode Bedside Commode # Voids 0 # Bowel Movements 1 1 - Exam GENERAL DESCRIPTION: Elderly male lying in bed in no distress RESPIRATORY SYSTEM: Unlabored breathing , decreased breath sounds at bases Heart S1-S2 regular rate and rhythm ABDOMEN: Soft , mild tenderness, right groin wound looks clean with no slough tissue surrounding redness : Scrotal wound x2 lower wound did have embedded wound VAC sponge EXTREMITIES: No edema feet - Labs CBC & Chem 7: 06/06/23 06:05 06/06/23 06:05 Labs: Abnormal Lab Results - Last 24 Hours (Table) 06/05/23 06/05/23 06/05/23 Range/Units 10:00 17:07 20:08 WBC (4.50-10.00) X 10*3/uL RBC (4.40-5.60) X 10*6/uL Hgb (13.0-17.0) d/dL Hct (39.6-50.0) % MCV (80.0-97.0) FL MCHC (32.0-37.0) d/dL RDW (11.5-14.5) % Neutrophils # (1.80-7.70) X 10*3/uL Lymphocytes # (0.90-5.00) X 10*3/uL BUN (9.0-27.0) mg/dL Creatinine (0.6-1.5) mg/dL Est GFR (CKD-EPI) (>=60) BUN/Creatinine Ratio (12.00-20.00) Ratio Glucose (70-110) mg/dL POC Glucose (mg/dL) 135 H 162 H (70-110) mg/dL Total Bilirubin (0.3-1.2) mg/dL Alkaline Phosphatase (41-126) U/L Total Protein (6.2-8.2) d/dL Albumin (3.8-4.9) d/dL Albumin/Globulin Ratio (1.60-3.17) Ratio Procalcitonin (0.02-0.09) ng/mL Hep Bs Antibody A (Negative) 06/06/23 06/06/23 06/06/23 Range/Units 06:05 06:05 06:05 WBC 11.95 H (4.50-10.00) X 10*3/uL RBC 2.92 L (4.40-5.60) X 10*6/uL Hgb 8.9 L (13.0-17.0) d/dL Hct 30.0 L (39.6-50.0) % MCV 102.7 H (80.0-97.0) FL MCHC 29.7 L (32.0-37.0) d/dL RDW 18.5 H (11.5-14.5) % Neutrophils # 10.15 H (1.80-7.70) X 10*3/uL Lymphocytes # 0.82 L (0.90-5.00) X 10*3/uL BUN 41.2 H (9.0-27.0) mg/dL Creatinine 4.4 H (0.6-1.5) mg/dL Est GFR (CKD-EPI) 13 L (>=60) BUN/Creatinine Ratio 9.36 L (12.00-20.00) Ratio Glucose 44 H* (70-110) mg/dL POC Glucose (mg/dL) (70-110) mg/dL Total Bilirubin <0.2 L (0.3-1.2) mg/dL Alkaline Phosphatase 132 H (41-126) U/L Total Protein 5.2 L (6.2-8.2) d/dL Albumin 2.6 L (3.8-4.9) d/dL Albumin/Globulin Ratio 1.00 L (1.60-3.17) Ratio Procalcitonin 0.73 H (0.02-0.09) ng/mL Hep Bs Antibody (Negative) 06/06/23 06/06/23 06/06/23 Range/Units 07:10 07:48 11:59 WBC (4.50-10.00) X 10*3/uL RBC (4.40-5.60) X 10*6/uL Hgb (13.0-17.0) d/dL Hct (39.6-50.0) % MCV (80.0-97.0) FL MCHC (32.0-37.0) d/dL RDW (11.5-14.5) % Neutrophils # (1.80-7.70) X 10*3/uL Lymphocytes # (0.90-5.00) X 10*3/uL BUN (9.0-27.0) mg/dL Creatinine (0.6-1.5) mg/dL Est GFR (CKD-EPI) (>=60) BUN/Creatinine Ratio (12.00-20.00) Ratio Glucose (70-110) mg/dL POC Glucose (mg/dL) 51 L 58 L 122 H (70-110) mg/dL Total Bilirubin (0.3-1.2) mg/dL Alkaline Phosphatase (41-126) U/L Total Protein (6.2-8.2) d/dL Albumin (3.8-4.9) d/dL Albumin/Globulin Ratio (1.60-3.17) Ratio Procalcitonin (0.02-0.09) ng/mL Hep Bs Antibody (Negative) Assessment and Plan (1) Leukocytosis Current Visit: Yes Status: Acute Code(s): D72.829 - ELEVATED WHITE BLOOD CELL COUNT, UNSPECIFIED SNOMED Code(s): 454823537 (2) Open wound of scrotum Current Visit: Yes Status: Acute Code(s): S31.30XA - UNSPECIFIED OPEN WOUND OF SCROTUM AND TESTES, INIT ENCNTR SNOMED Code(s): 933291425 (3) Right groin wound Current Visit: No Status: Acute Code(s): S31.109A - UNSP OPN WND ABD WALL, UNSP Q W/O PENET PERIT CAV, INIT SNOMED Code(s): 559902649 Plan: 1patient with recent history of necrotizing fasciitis requiring extensive surgery to the right groin scrotal area and [facility] with admission to the hospital this time for weakness and fall patient did not have any fever however noticed to have slight worsening of the white count over the last 3 days overall her wound to the scrotum and groin area healed healing well chest x-ray did not show any pneumonia and patient denies any significant respiratory symptoms abdominal was soft no evidence of any cellulitis 2patient did have elevated inflammatory markers cultures are currently pending. 3patient noticed to have slight tenderness on abdominal examination question of peritonitis nursing staff has been advised to obtain peritoneal fluid for cell count differential and culture from PD catheter. 4continue current wound care to the right groin with a wound VAC, the lower scrotal wound still have some embedded black foam which can be removed with the help of tweezer if not apply Medihoney johanna if needed Dictation was produced using [employer] dictation software. please excuse any grammatical, word or spelling errors.
[2023-06-07] MEDS: CALCIUM ACETATE 667 MG TAB PO SCH ×4 (05:18→19:46)
[2023-06-07 07:19] LABS: Glucose,Whole Blood 176 mg/dL (70-110)
[2023-06-07] MEDS: ALBUTEROL NEBULIZED 2.5 MG/3 ML INHALATION PRN (07:55)
[2023-06-07] MEDS: GABAPENTIN 100 MG CAP PO SCH ×3 (08:56→21:51)
[2023-06-07] MEDS: SODIUM FERRIC GLUCONAT-SUCROSE 125 MG in SODIUM CHLORIDE 0.9% 100 ML IVPB SCH (08:58)
[2023-06-07] MEDS: MIDODRINE 5 MG TAB PO SCH ×3 (09:59→17:27)
--- NOTE | 2023-06-07 11:03 | P.PN ---
Subjective Patient is a 73-year-old male with end-stage renal disease maintained on peritoneal dialysis. Patient was admitted with increased weakness and he will be discharged to rehab. Patient has therefore been switched to hemodialysis. Receiving second treatment today. Tolerating treatment well. Objective - Vital Signs Vital signs: Vital Signs Temp 97.5 F L 06/07/23 06:55 Pulse 70 06/07/23 08:06 Resp 16 06/07/23 06:55 BP 125/70 06/07/23 06:55 Pulse Ox 95 06/07/23 08:07 FiO2 Intake & Output 06/06/23 06/07/23 06/07/23 18:59 06:59 18:59 Intake Total 554 400 Balance 554 400 Weight 60.5 kg 61 kg Intake: Intake, IV Titration 200 100 Amount Piperacillin-Tazobactam 3 100 100 .375 gm In Sodium Chloride 0.9% 100 ml @ 25 mls/hr IVPB Q12HR [facility] Rx #:[id number] Sodium Ferric Gluconat- 100 Sucrose 125 mg In Sodium Chloride 0.9% 100 ml @ 100 mls/hr IVPB DAILY [facility] Rx#:[id number] Oral 354 300 Other: Voiding Method Bedside Commode Bedside Commode Bedside Commode # Voids 0 - Exam Patient is awake, comfortable, in no acute distress Alert oriented 3 Examination of the heart S1 and S2 Examination of the lungs bilateral breath sounds are heard Abdomen is soft nontender Right groin wound VAC Examination of lower extremities shows no significant edema RECREATION MANAGER exam grossly intact - Labs CBC & Chem 7: 06/06/23 06:05 06/06/23 06:05 Labs: Abnormal Lab Results - Last 24 Hours (Table) 06/06/23 06/06/23 06/06/23 Range/Units 06:05 06:05 06:05 WBC 11.95 H (4.50-10.00) X 10*3/uL RBC 2.92 L (4.40-5.60) X 10*6/uL Hgb 8.9 L (13.0-17.0) d/dL Hct 30.0 L (39.6-50.0) % MCV 102.7 H (80.0-97.0) FL MCHC 29.7 L (32.0-37.0) d/dL RDW 18.5 H (11.5-14.5) % Neutrophils # 10.15 H (1.80-7.70) X 10*3/uL Lymphocytes # 0.82 L (0.90-5.00) X 10*3/uL BUN 41.2 H (9.0-27.0) mg/dL Creatinine 4.4 H (0.6-1.5) mg/dL Est GFR (CKD-EPI) 13 L (>=60) BUN/Creatinine Ratio 9.36 L (12.00-20.00) Ratio Glucose 44 H* (70-110) mg/dL POC Glucose (mg/dL) (70-110) mg/dL Total Bilirubin <0.2 L (0.3-1.2) mg/dL Alkaline Phosphatase 132 H (41-126) U/L C-Reactive Protein (0.00-0.80) mg/dL Total Protein 5.2 L (6.2-8.2) d/dL Albumin 2.6 L (3.8-4.9) d/dL Albumin/Globulin Ratio 1.00 L (1.60-3.17) Ratio Procalcitonin 0.73 H (0.02-0.09) ng/mL 06/06/23 06/06/23 06/06/23 Range/Units 06:05 11:59 17:05 WBC (4.50-10.00) X 10*3/uL RBC (4.40-5.60) X 10*6/uL Hgb (13.0-17.0) d/dL Hct (39.6-50.0) % MCV (80.0-97.0) FL MCHC (32.0-37.0) d/dL RDW (11.5-14.5) % Neutrophils # (1.80-7.70) X 10*3/uL Lymphocytes # (0.90-5.00) X 10*3/uL BUN (9.0-27.0) mg/dL Creatinine (0.6-1.5) mg/dL Est GFR (CKD-EPI) (>=60) BUN/Creatinine Ratio (12.00-20.00) Ratio Glucose (70-110) mg/dL POC Glucose (mg/dL) 122 H 176 H (70-110) mg/dL Total Bilirubin (0.3-1.2) mg/dL Alkaline Phosphatase (41-126) U/L C-Reactive Protein 11.60 H (0.00-0.80) mg/dL Total Protein (6.2-8.2) d/dL Albumin (3.8-4.9) d/dL Albumin/Globulin Ratio (1.60-3.17) Ratio Procalcitonin (0.02-0.09) ng/mL 06/06/23 06/07/23 Range/Units 20:47 06:59 WBC (4.50-10.00) X 10*3/uL RBC (4.40-5.60) X 10*6/uL Hgb (13.0-17.0) d/dL Hct (39.6-50.0) % MCV (80.0-97.0) FL MCHC (32.0-37.0) d/dL RDW (11.5-14.5) % Neutrophils # (1.80-7.70) X 10*3/uL Lymphocytes # (0.90-5.00) X 10*3/uL BUN (9.0-27.0) mg/dL Creatinine (0.6-1.5) mg/dL Est GFR (CKD-EPI) (>=60) BUN/Creatinine Ratio (12.00-20.00) Ratio Glucose (70-110) mg/dL POC Glucose (mg/dL) 197 H 176 H (70-110) mg/dL Total Bilirubin (0.3-1.2) mg/dL Alkaline Phosphatase (41-126) U/L C-Reactive Protein (0.00-0.80) mg/dL Total Protein (6.2-8.2) d/dL Albumin (3.8-4.9) d/dL Albumin/Globulin Ratio (1.60-3.17) Ratio Procalcitonin (0.02-0.09) ng/mL Assessment and Plan Assessment: 1. End-stage renal disease , switched to temporary hemodialysis while in rehab. 2. Volume overload currently improved 3. Status post recent surgeries to the right groin for necrotizing infection status post wound VAC 4. Generalized weakness and debility, patient will need to be discharged to rehab 5. Anemia of chronic disease status post IV iron last admission Plan: Maintain hemodialysis on Saturday schedule.
[2023-06-07] MEDS ORDERED: DIALYSIS (PERIT 2.5%) 2,000 ML 50 G/2,000 ML BAG INTRAPERIT SCH (12:00)
[2023-06-07 12:13] LABS: Glucose,Whole Blood 137 mg/dL (70-110)
[2023-06-07] MEDS: SENNOSIDES-DOCUSATE SODIUM 1 EACH TAB PO SCH ×2 (12:16→21:51)
[2023-06-07] MEDS: ASPIRIN 81 MG PO SCH (12:17)
[2023-06-07] MEDS: ISOSORBIDE MONONITRATE ER 30 MG TAB.ER.24H PO SCH (12:17)
[2023-06-07] MEDS: CLOPIDOGREL 75 MG TAB PO SCH (12:17)
[2023-06-07] MEDS: AMIODARONE 200 MG TAB PO SCH (12:17)
[2023-06-07] MEDS: PANTOPRAZOLE 40 MG TABLET PO SCH ×2 (12:17→21:51)
[2023-06-07] MEDS: CYANOCOBALAMIN 500 MCG TAB PO SCH (12:17)
[2023-06-07] MEDS: METOPROLOL TARTRATE 12.5 MG TAB PO SCH ×2 (12:17→21:51)
[2023-06-07] MEDS: RANOLAZINE 500 MG TAB.ER.12H PO SCH ×2 (12:18→22:09)
[2023-06-07] MEDS: SODIUM BICARBONATE TAB 650 MG TAB PO SCH (12:18)
[2023-06-07] MEDS: COLLAGENASE 250 UNIT/GM OINTMENT 30 GM TUBE TOPICAL SCH (12:19)
[2023-06-07] MEDS: HYDROPHILIC CREAM 180 GM TUBE TOPICAL SCH (12:19)
[2023-06-07] MEDS: PIPERACILLIN-TAZOBACTAM 3.375 GM in SODIUM CHLORIDE 0.9% 100 ML IVPB SCH ×2 (12:19→19:59)
[2023-06-07] MEDS: FOLIC ACID-VIT B COMPLEX-VIT C 1 CAP PO SCH (12:21)
[2023-06-07] MEDS: HEPARIN SODIUM,PORCINE 5,000 UNIT/ML 1 ML VIAL SQ SCH ×2 (12:23→19:59)
--- NOTE | 2023-06-07 14:51 | P.PN ---
Subjective Progress Note Date: 06/07/23 Mr. Egan is a 73-year-old male, right handed, , who lives in a 1 story home, with 3 ANDRES, but has a wheel chair ramp. Prior to admission, he was ambulating with a 2ww, 4ww and uses a wheel chair. He was needed assistance at times for basic/advanced ADLs. Current driving: no. Transportation by: family. Retired: yes. Support system: daughter lives with patient to help on an as needed basis. Daughter performs the patient peritoneal dialysis Patient arrived via EMS to [facility] on 06/01 with complaints of chest pain, increased weakness and falls. He was admitted with chest pain and a consultation to vascular surgery, cardiology and nephrology. Of note, the patient was discharged on 05/31 from [facility]. He was admitted on 05/27. He presented to the ED c/o bilateral lower extremity edema. This edema had progressed over several days. Of note, patient is dependent on peritoneal dialysis. Patient was also recently hospitalized for a right inguinal necrotizing infected mass with subsequent transfer to [facility]. He currently has a wound VAC for the right inguinal wound. Patient reported that he had been feeling more weak and SOB several days prior to presentation to the EC. In the EC he had a chest x-ray completed, concerning for CHF. Labs on arrival showed WBCs of 11.2, potassium 7.3, creatinine 8.73, BNP 20,300. atient was admitted to the ICU with a diagnosis of hyperkalemia and pulmonary edema. He was started on antibiotics. Consults were placed to wound care, general surgery and nephrology. Patient received medications for the hyperkalemia. His PD cath was evaluated for patency and found to be working. PD was resumed in the hospital. PM&R consulted for rehab recommendations. Therapy evaluations reviewed; patient needing 05/30/2023, patient was evaluated. Daughter and at bedside. At that time patient refused to temporarily switch from peritoneal dialysis to hemodialysis. Advised patient that his rehab choices would be very slim as rehab centers do not accept patients with peritoneal dialysis. Patient refused hemodialysis and decided to be discharged home. 06/03/23:Saw patient at bedside. He is going for permcath to start hemodialysis 06/06/23: Patient had a permacath placed to transition to hemodialysis while he is in rehab. Per EMR documentation patient has received hemodialysis and is tolerating it well, other than some lower blood pressures. Patient is on midodrine. Therapy evaluations as of 06/06 reviewed, patient needing mod assist for bathing, max assist for LB dressing, min assist for grooming, max assist for toileting ability with improved mobility tolerance today per therapy documentation. I had a conversation with patient and called his to again discuss IPR. He has significant debility and is below baseline function. He would benefit from IPR course given his multiple medical comorbidities, monitored HD (new to HD), with the hope of decreasing caregiver burden. 06/07/23: Patient having second session of HD today. Most recent therapy, needing mod assist with bathing, UB dressing min assist, LB dressing max assist, grooming and transfers min assist, toileting max assist. Patient has been approved for IPR, but has not been cleared by ID at this point as there are cultures pending. He is agreeable to come to IPR once medically stable. Objective - Vital Signs Vital signs: Vital Signs Temp 98.0 F 06/07/23 12:15 Pulse 73 06/07/23 12:05 Resp 18 06/07/23 12:15 BP 115/58 06/07/23 12:15 Pulse Ox 96 06/07/23 12:05 FiO2 Intake & Output 06/06/23 06/07/23 06/07/23 18:59 06:59 18:59 Intake Total 554 400 300 Output Total 1400 Balance 554 400 -1100 Weight 60.5 kg 61 kg Intake: Intake, IV Titration 200 100 Amount Piperacillin-Tazobactam 3 100 100 .375 gm In Sodium Chloride 0.9% 100 ml @ 25 mls/hr IVPB Q12HR [facility] Rx #:[id number] Sodium Ferric Gluconat- 100 Sucrose 125 mg In Sodium Chloride 0.9% 100 ml @ 100 mls/hr IVPB DAILY [facility] Rx#:[id number] Oral 354 300 Hemodialysis 300 Output: Hemodialysis 1400 Other: Voiding Method Bedside Commode Bedside Commode Bedside Commode # Voids 0 - Exam General: WDWN, male resting in bed with family at bedside, NAD Head: Normocephalic, atraumatic. Eyes: Symmetric Ears: Symmetric. Hearing within normal limits. Mouth: Clear, poor dentition Neck: Supple. Cardiac: quality assurance monitor final in place. Calves supple, non tender, no edema Lungs: Breathing comfortably on RA. Chest symmetric. Abdomen: Soft, nontender, PD port in place Extremities: Arthritic changes consistent with age. Neurological: Alert and oriented x 3. Speech is clear and fluent without paraphasic errors Cranial nerves: CN II-XII: intact. Sensation: Intact and symmetrical limbs. Musculoskeletal: ROM WFL EXCEPT: decreased right due to groin wound MMT UE Sh Abd EE EF FABD WE HG Right 4 4 4 4 4 4 Left 4 4 4 4 4 4 MMT LE HF KE DF EHL Right 2 3 4 4 Left 3+ 3+ 4 4 Skin: Skin intact where visible to head, neck, and bilateral upper and lower extremities EXCEPT: PIV, bilat UE areas of ecchymosis and scabbing, large right groin wound with wound vac. Area of skin breakdown on penis shaft, several stitches to right scrotum, area of breakdown left scrotum, smaller wound to right hip Psych: Calm, cooperative - Labs CBC & Chem 7: 06/06/23 06:05 06/06/23 06:05 Labs: Abnormal Lab Results - Last 24 Hours (Table) 06/06/23 06/06/23 06/06/23 Range/Units 06:05 17:05 20:47 POC Glucose (mg/dL) 176 H 197 H (70-110) mg/dL C-Reactive Protein 11.60 H (0.00-0.80) mg/dL 06/07/23 06/07/23 Range/Units 06:59 12:10 POC Glucose (mg/dL) 176 H 137 H (70-110) mg/dL C-Reactive Protein (0.00-0.80) mg/dL Microbiology - Last 24 Hours (Table) 06/06/23 06:05 Blood Culture - Preliminary Blood Assessment and Plan Assessment: # Gait impairment/impaired ADLs secondary to ESRD, chest pain, wound, generalized weakness -PT/OT # Recent hospitalization for acute exacerbation of CHF with systolic dysfunction, fluid overload # Dyspnea secondary to above # End-stage renal disease dependent on peritoneal dialysis -06/06/2023: Patient now started on hemodialysis # Hyperkalemia -06/06/23-should resolve with dialysis # 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 s/p I&D and wound VAC -06/06/2023: Wound care following -ID following # Hypotension -Midodrine # Anemia of chronic disease # CAD with history of [place] # Diet -Renal diet/cardiac low potassium, low phosphorus, 1500 cc fluid restriction, Juan Alberto twice daily # Skin/wound: Skin/Wound care to follow as needed # Pain Management -Tylenol 650 mg every 6 hours as needed, Gabapentin 100 mg 3 times daily, oxycodone 5 mg daily as needed for wound VAC changes, [place] 5/325 mg every 6 hours as needed # DVT Prophylaxis: -Subcu heparin # Comorbidities: hyperlipidemia, hypertension, COPD, A-fib, DM type II # Your medical dx and mgt Goals: Modified Independent mobility and ADLS both basic and advanced; increased functional mobility/strength; increased balance, safety, endurance. Improvement in medical issues through your care. Barriers: Endurance, pain, wound, peritoneal dialysis dependent Discharge recommendation: IPR at discharge. Patient approved for IPR but pending medical clearance/ID work up completion. Patient seen and examined by Dr. Braxton Conklin Note prepped by Corrina Whipple PA-C
[2023-06-07] MEDS: HYDROcodone/APAP 5-325MG 1 EACH TAB PO PRN ×2 (14:59→22:09)
--- NOTE | 2023-06-07 16:27 | P.PN ---
Subjective Progress Note Date: 06/07/23 Hospital Course: Patient is a 73-year-old male male with a past medical history of ESRD on peritoneal dialysis, chronic systolic heart failure with previously known EF of 35%, CAD with previous stents, hypertension, hyperlipidemia, and diabetes mellitus. Presented to the emergency department with a chief complaint of increasing weakness, chest pain, and fall at home. Patient recently underwent hospitalization and ICU admission for pulmonary edema. Patient was discharged home on 05/31/23. Reports after going home he had difficulties ambulating resulting in recurrent falls due to weakness. Patient reports he was encouraged to go to a rehab facility prior to discharge but will not do hemodialysis and wanted to be discharged back home to continue his peritoneal dialysis. He reports he would've stayed home but developed pain to his midsternal chest so he came back to the hospital for evaluation. Upon arrival to our facility patient underwent full evaluation. EKG was completed showing normal sinus rhythm at 71 bpm with left bundle branch block upon personal review and interpretation. CBC showing mild leukocytosis with WBC count of 11.4, macrocytic anemia with hemoglobin of 9.3. BMP showing sodium 134, chloride 93, and elevated renal function consistent with ESRD with BUN 54, creatinine 7.36, and GFR of 7. Magnesium was low at 1.6. Alkaline phosphatase elevated at 164. Troponin 0.026 and pro-BMP 29,900. Patient admitted under our services to observation unit with telemetry for chest pain with consultation to both cardiology and neph rology. Troponins were trended and flat at 0.026, 0.028, and 0.026. Cardiology evaluated and ruled out out acute coronary event recommending no medication changes at this time and continued outpatient follow-up in their office upon discharge. Nephrology following and managing peritoneal dialysis, aix architect is recommending patient be placed on temporary hemodialysis for much-needed discharged to [facility] facility. Patient and are in agreement for patient to undergo temporary hemodialysis while receiving rehab. Vascular surgery was consulted and patient had permacath placed to left jugular on 06/03/23. Wound care and urology also following for management of right inguinal mass status post recent I&D and placement of wound VAC as well as sacral ulcer which was present upon arrival. Physical exam: Patient seen and fully evaluated at bedside this morning. Patient was resting comfortably and easily awoken via verbal stimuli. Patient reports feeling tired and fatigued. Patient was hypoglycemic this morning with blood glucose of 44. Patient has had recurrent episodes of hypoglycemia throughout hospitalization. Vital signs reviewed and stable. General: Nontoxic, no distress and appears stated age. Derm: Skin warm and dry, normal coloration for ethnicity. Head: Atraumatic, normocephalic and symmetric. Eyes: EOMs intact, no lid lag, and anicteric sclera Mouth: no lip lesions, mucus membranes moist Cardiovascular: regular rate and rhythm with normal S1S2, systolic murmur, positive posterior tibial pulses bilaterally, and cap refill < 2 seconds. Lungs: Respirations even, regular, and unlabored on room air. Lungs CTA bilaterally, no rhonchi, no rales, no wheezing, and no accessory muscle usage. Abdominal: soft and distended, nontender to palpation, no guarding, peritoneal dialysis catheter in place. Wound VAC in place right groin. Ext: ROM intact. No gross muscle atrophy, no edema, no contractures Neuro: Speech clear, face symmetrical and CN II-XII grossly intact with no noted focal neuro deficits Psych: Alert and oriented to person, place, time, and situation. Appropriate and pleasant affect. Patient does have episodes of confusion but is currently alert and oriented at this present time. Assessment and Plan of Care: Scrotal ulceration, present on admission History of necrotizing infection to right groin/scrotal region Status post recent I&D of right groin and placement of wound VAC Leukocytosis -Wound care following for wound care orders and management of wound VAC -Urology following recommending leaving wound VAC over right inguinal region., and Packing scrotal wound with iodoform gauze. Patient should be receiving broad-spectrum antibiotics. -Infectious disease following, recommending continuation of current IV antibiotics and obtaining blood cultures, inflammatory markers, and repeat CBC. -Continue IV antibiotics with Zosyn 3.375 g every 12 hours pending further recommendations from infectious disease. -Blood cultures showing no growth to date. Hypoglycemia, Insulin-dependent diabetes mellitus with Recurrent episodes of hypoglycemia -Patient had recurrent episodes of hypoglycemia and sliding scale, long-acting, and fixed dose insulin was discontinued. Hemoglobin A1c 6.5%. Blood glucose levels have ranged from 90-197 over the past 24 hours since discontinuation of insulin. Patient will likely be discharged without insulin. Metabolic encephalopathy secondary to azotemia resulting from endstage renal disease Generalized weakness and debility with recurrent falls at home resulting from physical deconditioning secondary to advanced age and chronic illness Chest pain, acute coronary event ruled out History of CAD status post stents Hypertension Hyperlipidemia -Patient with intermittent confusion and generalized weakness progressively worsening resulting in inability to completely necessary ADLs. -Fall precautions in place. -Physical therapy following, recommending patient will need rehab upon discharge -Cardiology evaluated and ruled out out acute coronary event recommending no medication changes at this time and continued outpatient follow-up in their office upon discharge. -Continue Telemetry monitoring -Continue heart healthy renal diet -Continue daily medication regimen with aspirin 81 mg daily, atorvastatin 40 mg daily, Plavix 75 mg daily, isosorbide mononitrate 30 mg daily, metoprolol 12.5 mg twice daily, midodrine 10 mg 3 times daily with meals. ESRD Hyperkalemia, resolved after hemodialysis -Nephrology following for management of dialysis. -Vascular surgery placed permacath to left jugular on 06/03/23. -Patient started on hemodialysis and has since been undergoing hemodialysis Mondays/Wednesdays/Fridays -Continuation of sodium bicarb 650 mg daily Data reviewed: Vital signs reviewed. Blood pressure 125/70, heart rate 66, respiratory rate 16, temp 97.5F, SpO2 of 96% on room air. Data CODE STATUS: Full code DVT prophylaxis: Heparin Discussed with: Pt, RN, and infectious disease physician as well as patient's gr anddaughter at bedside Anticipated discharge date: Patient has received authorization from [place] with cheryle white to discharge to inpatient rehab on Saturday06/10/[address]: Patient to be discharged to inpatient rehab on Saturday06/10/23 Patient was seen independently by Nurse Practitioner. This document was prepared using [email or web address] dictation software. Please allow for errors in route vending machine servicer while rare they do occur. I reviewed the documentation as provided by the LUDY above, who is the original author of this note. I agree with the documented assessment and plan, with the following changes: none Objective - Vital Signs Vital signs: Vital Signs Temp 97.5 F L 06/07/23 06:55 Pulse 70 06/07/23 08:06 Resp 16 06/07/23 06:55 BP 125/70 06/07/23 06:55 Pulse Ox 95 06/07/23 08:07 FiO2 Intake & Output 06/06/23 06/07/23 06/07/23 18:59 06:59 18:59 Intake Total 554 400 Balance 554 400 Weight 60.5 kg 61 kg Intake: Intake, IV Titration 200 100 Amount Piperacillin-Tazobactam 3 100 100 .375 gm In Sodium Chloride 0.9% 100 ml @ 25 mls/hr IVPB Q12HR [facility] Rx #:[id number] Sodium Ferric Gluconat- 100 Sucrose 125 mg In Sodium Chloride 0.9% 100 ml @ 100 mls/hr IVPB DAILY [facility] Rx#:[id number] Oral 354 300 Other: Voiding Method Bedside Commode Bedside Commode # Voids 0 - Labs CBC & Chem 7: 06/06/23 06:05 06/06/23 06:05 Labs: Abnormal Lab Results - Last 24 Hours (Table) 06/06/23 06/06/23 06/06/23 Range/Units 06:05 06:05 06:05 WBC 11.95 H (4.50-10.00) X 10*3/uL RBC 2.92 L (4.40-5.60) X 10*6/uL Hgb 8.9 L (13.0-17.0) d/dL Hct 30.0 L (39.6-50.0) % MCV 102.7 H (80.0-97.0) FL MCHC 29.7 L (32.0-37.0) d/dL RDW 18.5 H (11.5-14.5) % Neutrophils # 10.15 H (1.80-7.70) X 10*3/uL Lymphocytes # 0.82 L (0.90-5.00) X 10*3/uL BUN 41.2 H (9.0-27.0) mg/dL Creatinine 4.4 H (0.6-1.5) mg/dL Est GFR (CKD-EPI) 13 L (>=60) BUN/Creatinine Ratio 9.36 L (12.00-20.00) Ratio Glucose 44 H* (70-110) mg/dL POC Glucose (mg/dL) (70-110) mg/dL Total Bilirubin <0.2 L (0.3-1.2) mg/dL Alkaline Phosphatase 132 H (41-126) U/L C-Reactive Protein (0.00-0.80) mg/dL Total Protein 5.2 L (6.2-8.2) d/dL Albumin 2.6 L (3.8-4.9) d/dL Albumin/Globulin Ratio 1.00 L (1.60-3.17) Ratio Procalcitonin 0.73 H (0.02-0.09) ng/mL 06/06/23 06/06/23 06/06/23 Range/Units 06:05 11:59 17:05 WBC (4.50-10.00) X 10*3/uL RBC (4.40-5.60) X 10*6/uL Hgb (13.0-17.0) d/dL Hct (39.6-50.0) % MCV (80.0-97.0) FL MCHC (32.0-37.0) d/dL RDW (11.5-14.5) % Neutrophils # (1.80-7.70) X 10*3/uL Lymphocytes # (0.90-5.00) X 10*3/uL BUN (9.0-27.0) mg/dL Creatinine (0.6-1.5) mg/dL Est GFR (CKD-EPI) (>=60) BUN/Creatinine Ratio (12.00-20.00) Ratio Glucose (70-110) mg/dL POC Glucose (mg/dL) 122 H 176 H (70-110) mg/dL Total Bilirubin (0.3-1.2) mg/dL Alkaline Phosphatase (41-126) U/L C-Reactive Protein 11.60 H (0.00-0.80) mg/dL Total Protein (6.2-8.2) d/dL Albumin (3.8-4.9) d/dL Albumin/Globulin Ratio (1.60-3.17) Ratio Procalcitonin (0.02-0.09) ng/mL 06/06/23 06/07/23 Range/Units 20:47 06:59 WBC (4.50-10.00) X 10*3/uL RBC (4.40-5.60) X 10*6/uL Hgb (13.0-17.0) d/dL Hct (39.6-50.0) % MCV (80.0-97.0) FL MCHC (32.0-37.0) d/dL RDW (11.5-14.5) % Neutrophils # (1.80-7.70) X 10*3/uL Lymphocytes # (0.90-5.00) X 10*3/uL BUN (9.0-27.0) mg/dL Creatinine (0.6-1.5) mg/dL Est GFR (CKD-EPI) (>=60) BUN/Creatinine Ratio (12.00-20.00) Ratio Glucose (70-110) mg/dL POC Glucose (mg/dL) 197 H 176 H (70-110) mg/dL Total Bilirubin (0.3-1.2) mg/dL Alkaline Phosphatase (41-126) U/L C-Reactive Protein (0.00-0.80) mg/dL Total Protein (6.2-8.2) d/dL Albumin (3.8-4.9) d/dL Albumin/Globulin Ratio (1.60-3.17) Ratio Procalcitonin (0.02-0.09) ng/mL
--- NOTE | 2023-06-07 16:52 | P.PN ---
Subjective Progress Note Date: 06/07/23 Principal diagnosis: scrotal wound Patient is a 73-year-old male with a past medical his significant for diabetes mellitus COPD hypertension hyperlipidemia coronary artery disease, patient also have a history of necrotizing infection to the right groin and scrotal area for the patient was treated at [facility], patient current did have wound to the right groin and scrotal area. On today's evaluation that is 06/07/2023, the patient remains to be afebrile th e patient is breathing comfortably on room air without need for supplemental oxygen, the patient denies chest pain, shortness of breath or cough, patient denies nausea/vomiting , no diarrhea and no abdominal pain, the patient denies pain to the right groin scrotal wound area Patient white count is down to 11.95 creatinine is 4.4. As of yesterday no lab draw today, Patient did have a CRP of 11.60 procalcitonin 0.73 cultures are currently pending Objective - Vital Signs Vital signs: Vital Signs Temp 98.0 F 06/07/23 12:15 Pulse 73 06/07/23 12:05 Resp 18 06/07/23 12:15 BP 115/58 06/07/23 12:15 Pulse Ox 96 06/07/23 12:05 FiO2 Intake & Output 06/06/23 06/07/23 06/07/23 18:59 06:59 18:59 Intake Total 554 400 300 Output Total 1400 Balance 554 400 -1100 Weight 60.5 kg 61 kg Intake: Intake, IV Titration 200 100 Amount Piperacillin-Tazobactam 3 100 100 .375 gm In Sodium Chloride 0.9% 100 ml @ 25 mls/hr IVPB Q12HR [facility] Rx #:[id number] Sodium Ferric Gluconat- 100 Sucrose 125 mg In Sodium Chloride 0.9% 100 ml @ 100 mls/hr IVPB DAILY [facility] Rx#:[id number] Oral 354 300 Hemodialysis 300 Output: Hemodialysis 1400 Other: Voiding Method Bedside Commode Bedside Commode Bedside Commode # Voids 0 - Exam GENERAL DESCRIPTION: Elderly male lying in bed in no distress RESPIRATORY SYSTEM: Unlabored breathing , decreased breath sounds at bases Heart S1-S2 regular rate and rhythm ABDOMEN: Soft , mild tenderness, right groin wound looks clean with no slough tissue surrounding redness : Scrotal wound x2 lower wound did have embedded wound VAC sponge EXTREMITIES: No edema feet - Labs CBC & Chem 7: 06/06/23 06:05 06/06/23 06:05 Labs: Abnormal Lab Results - Last 24 Hours (Table) 06/06/23 06/06/23 06/06/23 Range/Units 06:05 06:05 17:05 BUN 41.2 H (9.0-27.0) mg/dL Creatinine 4.4 H (0.6-1.5) mg/dL Est GFR (CKD-EPI) 13 L (>=60) BUN/Creatinine Ratio 9.36 L (12.00-20.00) Ratio Glucose 44 H* (70-110) mg/dL POC Glucose (mg/dL) 176 H (70-110) mg/dL Total Bilirubin <0.2 L (0.3-1.2) mg/dL Alkaline Phosphatase 132 H (41-126) U/L C-Reactive Protein 11.60 H (0.00-0.80) mg/dL Total Protein 5.2 L (6.2-8.2) d/dL Albumin 2.6 L (3.8-4.9) d/dL Albumin/Globulin Ratio 1.00 L (1.60-3.17) Ratio 06/06/23 06/07/23 06/07/23 Range/Units 20:47 06:59 12:10 BUN (9.0-27.0) mg/dL Creatinine (0.6-1.5) mg/dL Est GFR (CKD-EPI) (>=60) BUN/Creatinine Ratio (12.00-20.00) Ratio Glucose (70-110) mg/dL POC Glucose (mg/dL) 197 H 176 H 137 H (70-110) mg/dL Total Bilirubin (0.3-1.2) mg/dL Alkaline Phosphatase (41-126) U/L C-Reactive Protein (0.00-0.80) mg/dL Total Protein (6.2-8.2) d/dL Albumin (3.8-4.9) d/dL Albumin/Globulin Ratio (1.60-3.17) Ratio Assessment and Plan (1) Leukocytosis Current Visit: Yes Status: Acute Code(s): D72.829 - ELEVATED WHITE BLOOD CELL COUNT, UNSPECIFIED SNOMED Code(s): 409513473 (2) Open wound of scrotum Current Visit: Yes Status: Acute Code(s): S31.30XA - UNSPECIFIED OPEN WOUND OF SCROTUM AND TESTES, INIT ENCNTR SNOMED Code(s): 979241055 (3) Right groin wound Current Visit: No Status: Acute Code(s): S31.109A - UNSP OPN WND ABD WALL, UNSP Q W/O PENET PERIT CAV, INIT SNOMED Code(s): 641221331 Plan: 1patient with recent history of necrotizing fasciitis requiring extensive surgery to the right groin scrotal area and [facility] with admission to the hospital this time for weakness and fall patient did not have any fever however noticed to have slight worsening of the white count over the last 3 days overall her wound to the scrotum and groin area healed healing well chest x-ray did not show any pneumonia and patient denies any significant respiratory symptoms abdominal was soft no evidence of any cellulitis 2patient did have elevated inflammatory markers cultures are currently pending. 3patient noticed to have slight tenderness on abdominal examination question of peritonitis nursing staff has been advised to obtain peritoneal fluid for cell count differential and culture from PD catheter, which is currently pending collection. 4continue current wound care to the right groin with a wound VAC, the lower scrotal wound still have some embedded black foam which could not be removed with the help of tweezer, we will apply Santyl followed by moist dressing changes daily 5 - repeat a CBC CRP with a.m. lab Dictation was produced using [employer] dictation software. please excuse any grammatical, word or spelling errors. Time with Patient: Less than 30
[2023-06-07 17:28] LABS: Glucose,Whole Blood 171 mg/dL (70-110)
[2023-06-07 20:08] LABS: Glucose,Whole Blood 207 mg/dL (70-110)
[2023-06-07] MEDS: ATORVASTATIN 40 MG TAB PO SCH (21:51)
[2023-06-07] MEDS: MELATONIN 5 MG TABLET PO SCH (21:51)
[2023-06-07] MEDS: DULoxetine HCL 20 MG CAPSULE.DR PO SCH (21:52)
[2023-06-07] MEDS: oxyBUTYnin chloride 5 MG TAB PO SCH (21:52)
[2023-06-08] MEDS: CALCIUM ACETATE 667 MG TAB PO SCH ×6 (00:06→23:24)
[2023-06-08 01:15] LABS: Glucose,Whole Blood 280 mg/dL (70-110)
[2023-06-08] MEDS: MIDODRINE 5 MG TAB PO SCH ×3 (07:10→17:07)
[2023-06-08] MEDS: PIPERACILLIN-TAZOBACTAM 3.375 GM in SODIUM CHLORIDE 0.9% 100 ML IVPB SCH ×2 (07:11→20:36)
[2023-06-08 07:46] LABS: Glucose,Whole Blood 158 mg/dL (70-110)
[2023-06-08 09:21] LABS: Anisocytosis Slight; Basophils % (A) 0 %; Eosinophils # (A) 0.1 k/uL (0-0.7); Eosinophils % (A) 1 %; HCT 26.1 % (39.0-53.0); Hypochromasia Marked; Lymphocytes # (A) 0.9 k/uL (1.0-4.8); Lymphocytes % (A) 9 %; MCH 30.9 pg (25.0-35.0); MCHC 30.1 g/dL (31.0-37.0); MCV 102.7 fL (80.0-100.0); Macrocytosis Moderate; Mean Platelet Volume 8.9; Monocytes # (A) 0.4 k/uL (0-1.0); Monocytes % (A) 4 %; Neutrophils # (A) 8.5 k/uL (1.3-7.7); Neutrophils % (A) 85 %; Platelet Count 238 k/uL (150-450); RBC 2.54 m/uL (4.30-5.90); RDW 17.6 % (11.5-15.5)
[2023-06-08 09:25] LABS: HGB 7.9 gm/dL (13.0-17.5)
[2023-06-08] MEDS: ISOSORBIDE MONONITRATE ER 30 MG TAB.ER.24H PO SCH (09:45)
[2023-06-08] MEDS: CYANOCOBALAMIN 500 MCG TAB PO SCH (09:45)
[2023-06-08] MEDS: CLOPIDOGREL 75 MG TAB PO SCH (09:45)
[2023-06-08] MEDS: METOPROLOL TARTRATE 12.5 MG TAB PO SCH ×2 (09:45→21:29)
[2023-06-08] MEDS: GABAPENTIN 100 MG CAP PO SCH ×3 (09:45→21:29)
[2023-06-08] MEDS: SODIUM BICARBONATE TAB 650 MG TAB PO SCH (09:45)
[2023-06-08] MEDS: FOLIC ACID-VIT B COMPLEX-VIT C 1 CAP PO SCH (09:46)
[2023-06-08] MEDS: PANTOPRAZOLE 40 MG TABLET PO SCH ×2 (09:46→21:29)
[2023-06-08] MEDS: ASPIRIN 81 MG PO SCH (09:46)
[2023-06-08] MEDS: RANOLAZINE 500 MG TAB.ER.12H PO SCH ×2 (09:46→21:30)
[2023-06-08] MEDS: HEPARIN SODIUM,PORCINE 5,000 UNIT/ML 1 ML VIAL SQ SCH ×2 (09:47→20:36)
[2023-06-08] MEDS: SENNOSIDES-DOCUSATE SODIUM 1 EACH TAB PO SCH ×2 (09:47→21:30)
[2023-06-08] MEDS: COLLAGENASE 250 UNIT/GM OINTMENT 30 GM TUBE TOPICAL SCH (09:47)
[2023-06-08] MEDS: HYDROPHILIC CREAM 180 GM TUBE TOPICAL SCH (09:48)
--- NOTE | 2023-06-08 09:59 | P.PN ---
Subjective Progress Note Date: 06/08/23 The patient is in the hospital for continued care from a previously diagnosed and treated Ed's gangrene. He slowly recuperated. He is having no complaints Objective - Vital Signs Vital signs: Vital Signs Temp 97.7 F 06/08/23 07:53 Pulse 71 06/08/23 07:53 Resp 18 06/08/23 07:53 BP 118/60 06/08/23 07:53 Pulse Ox 96 06/08/23 08:40 FiO2 Intake & Output 06/07/23 06/08/23 06/08/23 18:59 06:59 18:59 Intake Total 740 640 Output Total 1400 Balance -660 640 Weight 62 kg Intake: Intake, IV Titration 200 100 Amount Piperacillin-Tazobactam 3 100 100 .375 gm In Sodium Chloride 0.9% 100 ml @ 25 mls/hr IVPB Q12HR [facility] Rx #:[id number] Sodium Ferric Gluconat- 100 Sucrose 125 mg In Sodium Chloride 0.9% 100 ml @ 100 mls/hr IVPB DAILY [facility] Rx#:[id number] Oral 240 540 Hemodialysis 300 Output: Hemodialysis 1400 Other: Voiding Method Bedside Commode Bedside Commode # Voids 1 1 # Bowel Movements 1 - Genitourinary Genitourinary Comment(s): The wound VAC is intact. There is no erythema or swelling around the wound VAC. - Labs CBC & Chem 7: 06/08/23 06:44 06/06/23 06:05 Labs: Abnormal Lab Results - Last 24 Hours (Table) 06/07/23 06/07/23 06/07/23 Range/Units 12:10 17:27 20:07 RBC (4.30-5.90) m/uL Hgb (13.0-17.5) gm/dL Hct (39.0-53.0) % MCV (80.0-100.0) fL MCHC (31.0-37.0) g/dL RDW (11.5-15.5) % Neutrophils # (1.3-7.7) k/uL Lymphocytes # (1.0-4.8) k/uL POC Glucose (mg/dL) 137 H 171 H 207 H (70-110) mg/dL 06/08/23 06/08/23 06/08/23 Range/Units 01:13 06:44 07:45 RBC 2.54 L (4.30-5.90) m/uL Hgb 7.9 L D (13.0-17.5) gm/dL Hct 26.1 L (39.0-53.0) % MCV 102.7 H (80.0-100.0) fL MCHC 30.1 L (31.0-37.0) g/dL RDW 17.6 H (11.5-15.5) % Neutrophils # 8.5 H (1.3-7.7) k/uL Lymphocytes # 0.9 L (1.0-4.8) k/uL POC Glucose (mg/dL) 280 H 158 H (70-110) mg/dL Microbiology - Last 24 Hours (Table) 06/06/23 06:05 Blood Culture - Preliminary Blood Assessment and Plan Assessment: Impression: Resolving Ed's gangrene. Recommendations we'll continue to follow
[2023-06-08] MEDS: HYDROcodone/APAP 5-325MG 1 EACH TAB PO PRN (10:03)
[2023-06-08 10:44] LABS: African American GFR (CKD) 17 (>60 ml/min/1.73 sqM); Anion Gap 11 mmol/L; Blood Urea Nitrogen 44 mg/dL (9-20); Carbon Dioxide 23 mmol/L (22-30); Chloride 97 mmol/L (98-107); Glucose 133 mg/dL (74-99); Magnesium 2.1 mg/dL (1.6-2.3); Non-African American GFR(CKD) 15 (>60 ml/min/1.73 sqM); Sodium 131 mmol/L (137-145)
[2023-06-08 11:00] LABS: C Reactive Protein 14.1 mg/dL (<1.0)
[2023-06-08] MEDS: SODIUM FERRIC GLUCONAT-SUCROSE 125 MG in SODIUM CHLORIDE 0.9% 100 ML IVPB SCH (11:56)
--- NOTE | 2023-06-08 12:20 | P.PN ---
Subjective Patient is a 73-year-old male with end-stage renal disease maintained on peritoneal dialysis. Patient was admitted with increased weakness and he will be discharged to rehab. Patient has therefore been switched to hemodialysis. Status post second treatment yesterday. No complaints. Objective - Vital Signs Vital signs: Vital Signs Temp 97.7 F 06/08/23 07:53 Pulse 71 06/08/23 07:53 Resp 18 06/08/23 07:53 BP 118/60 06/08/23 07:53 Pulse Ox 96 06/08/23 08:40 FiO2 Intake & Output 06/07/23 06/08/23 06/08/23 18:59 06:59 18:59 Intake Total 740 640 Output Total 1400 Balance -660 640 Weight 62 kg Intake: Intake, IV Titration 200 100 Amount Piperacillin-Tazobactam 3 100 100 .375 gm In Sodium Chloride 0.9% 100 ml @ 25 mls/hr IVPB Q12HR [facility] Rx #:[id number] Sodium Ferric Gluconat- 100 Sucrose 125 mg In Sodium Chloride 0.9% 100 ml @ 100 mls/hr IVPB DAILY [facility] Rx#:[id number] Oral 240 540 Hemodialysis 300 Output: Hemodialysis 1400 Other: Voiding Method Bedside Commode Bedside Commode Bedside Commode # Voids 1 1 # Bowel Movements 1 - Exam Patient is awake, comfortable, in no acute distress Alert oriented 3 Examination of the heart S1 and S2 Examination of the lungs bilateral breath sounds are heard Abdomen is soft nontender Right groin wound VAC Examination of lower extremities shows no significant edema [employer] exam grossly intact - Labs CBC & Chem 7: 06/08/23 06:44 06/08/23 06:44 Labs: Abnormal Lab Results - Last 24 Hours (Table) 06/07/23 06/07/23 06/08/23 Range/Units 17:27 20:07 01:13 RBC (4.30-5.90) m/uL Hgb (13.0-17.5) gm/dL Hct (39.0-53.0) % MCV (80.0-100.0) fL MCHC (31.0-37.0) g/dL RDW (11.5-15.5) % Neutrophils # (1.3-7.7) k/uL Lymphocytes # (1.0-4.8) k/uL Sodium (137-145) mmol/L Chloride (98-107) mmol/L BUN (9-20) mg/dL Creatinine (0.66-1.25) mg/dL Glucose (74-99) mg/dL POC Glucose (mg/dL) 171 H 207 H 280 H (70-110) mg/dL C-Reactive Protein (<1.0) mg/dL 06/08/23 06/08/23 06/08/23 Range/Units 06:44 06:44 07:45 RBC 2.54 L (4.30-5.90) m/uL Hgb 7.9 L D (13.0-17.5) gm/dL Hct 26.1 L (39.0-53.0) % MCV 102.7 H (80.0-100.0) fL MCHC 30.1 L (31.0-37.0) g/dL RDW 17.6 H (11.5-15.5) % Neutrophils # 8.5 H (1.3-7.7) k/uL Lymphocytes # 0.9 L (1.0-4.8) k/uL Sodium 131 L (137-145) mmol/L Chloride 97 L (98-107) mmol/L BUN 44 H (9-20) mg/dL Creatinine 3.73 H (0.66-1.25) mg/dL Glucose 133 H (74-99) mg/dL POC Glucose (mg/dL) 158 H (70-110) mg/dL C-Reactive Protein 14.1 H (<1.0) mg/dL Microbiology - Last 24 Hours (Table) 06/06/23 06:05 Blood Culture - Preliminary Blood Assessment and Plan Assessment: 1. End-stage renal disease , switched to temporary hemodialysis while in rehab. 2. Volume overload currently improved 3. Status post recent surgeries to the right groin for necrotizing infection status post wound VAC 4. Generalized weakness and debility, patient will need to be discharged to rehab 5. Anemia of chronic disease status post IV iron last admission Plan: Maintain hemodialysis on Saturday schedule.
[2023-06-08] MEDS: ALBUTEROL NEBULIZED 2.5 MG/3 ML INHALATION PRN (12:25)
[2023-06-08 12:48] LABS: Glucose,Whole Blood 184 mg/dL (70-110)
[2023-06-08] MEDS: AMIODARONE 200 MG TAB PO SCH (15:17)
[2023-06-08 17:29] LABS: Glucose,Whole Blood 189 mg/dL (70-110)
--- NOTE | 2023-06-08 18:16 | P.PN ---
Subjective Progress Note Date: 06/08/23 Hospital Course: Patient is a 73-year-old male male with a past medical history of ESRD on peritoneal dialysis, chronic systolic heart failure with previously known EF of 35%, CAD with previous stents, hypertension, hyperlipidemia, and diabetes mellitus. Presented to the emergency department with a chief complaint of increasing weakness, chest pain, and fall at home. Patient recently underwent hospitalization and ICU admission for pulmonary edema. Patient was discharged home on 05/31/23. Reports after going home he had difficulties ambulating resulting in recurrent falls due to weakness. Patient reports he was encouraged to go to a rehab facility prior to discharge but will not do hemodialysis and wanted to be discharged back home to continue his peritoneal dialysis. He reports he would've stayed home but developed pain to his midsternal chest so he came back to the hospital for evaluation. Upon arrival to our facility patient underwent full evaluation. EKG was completed showing normal sinus rhythm at 71 bpm with left bundle branch block upon personal review and interpretation. CBC showing mild leukocytosis with WBC count of 11.4, macrocytic anemia with hemoglobin of 9.3. BMP showing sodium 134, chloride 93, and elevated renal function consistent with ESRD with BUN 54, creatinine 7.36, and GFR of 7. Magnesium was low at 1.6. Alkaline phosphatase elevated at 164. Troponin 0.026 and pro-BMP 29,900. Patient admitted under our services to observation unit with telemetry for chest pain with consultation to both cardiology and neph rology. Troponins were trended and flat at 0.026, 0.028, and 0.026. Cardiology evaluated and ruled out out acute coronary event recommending no medication changes at this time and continued outpatient follow-up in their office upon discharge. Nephrology following and managing peritoneal dialysis, emergency room clinician is recommending patient be placed on temporary hemodialysis for much-needed discharged to halfway facility. Patient and are in agreement for patient to undergo temporary hemodialysis while receiving rehab. Vascular surgery was consulted and patient had permacath placed to left jugular on 06/03/23. Wound care and urology also following for management of right inguinal mass status post recent I&D and placement of wound VAC as well as sacral ulcer which was present upon arrival. Physical exam: Patient seen and fully evaluated at bedside this morning. Patient currently reports just feeling tired otherwise denies having any complaints at this time. Patient adamantly denying having any pain or discomfort at this moment. Vital signs reviewed and stable. General: Nontoxic, no distress and appears stated age. Derm: Skin warm and dry, normal coloration for ethnicity. Head: Atraumatic, normocephalic and symmetric. Eyes: EOMs intact, no lid lag, and anicteric sclera Mouth: no lip lesions, mucus membranes moist Cardiovascular: regular rate and rhythm with normal S1S2, systolic murmur, positive posterior tibial pulses bilaterally, and cap refill < 2 seconds. Lungs: Respirations even, regular, and unlabored on room air. Lungs CTA bilaterally, no rhonchi, no rales, no wheezing, and no accessory muscle usage. Abdominal: soft and distended, nontender to palpation, no guarding, peritoneal dialysis catheter in place. Wound VAC in place right groin. Ext: ROM intact. No gross muscle atrophy, no edema, no contractures Neuro: Speech clear, face symmetrical and CN II-XII grossly intact with no noted focal neuro deficits Psych: Alert and oriented to person, place, time, and situation. Appropriate and pleasant affect. Patient does have episodes of confusion but is currently alert and oriented at this present time. Assessment and Plan of Care: Scrotal ulceration, present on admission History of necrotizing infection to right groin/scrotal region Status post recent I&D of right groin and placement of wound VAC Leukocytosis -Wound care following for wound care orders and management of wound VAC -Urology following recommending leaving wound VAC over right inguinal region., and Packing scrotal wound with iodoform gauze. Patient should be receiving broad-spectrum antibiotics. -Infectious disease following, recommending continuation of current IV antibiotics and obtaining blood cultures, inflammatory markers, and repeat CBC. -Continue IV antibiotics with Zosyn 3.375 g every 12 hours pending further recommendations from infectious disease. -Blood cultures showing no growth to date. Hypoglycemia, Insulin-dependent diabetes mellitus with Recurrent episodes of hypoglycemia -Patient had recurrent episodes of hypoglycemia and sliding scale, long-acting, and fixed dose insulin was discontinued. Hemoglobin A1c 6.5%. Blood glucose levels have ranged from 133-207 over the past 24 hours since discontinuation of insulin. Patient will likely be discharged without insulin. Metabolic encephalopathy secondary to azotemia resulting from endstage renal di sease Generalized weakness and debility with recurrent falls at home resulting from physical deconditioning secondary to advanced age and chronic illness Chest pain, acute coronary event ruled out History of CAD status post stents Hypertension Hyperlipidemia -Patient with intermittent confusion and generalized weakness progressively worsening resulting in inability to completely necessary ADLs. -Fall precautions in place. -Physical therapy following, recommending patient will need rehab upon discharge -Cardiology evaluated and ruled out out acute coronary event recommending no medication changes at this time and continued outpatient follow-up in their office upon discharge. -Continue Telemetry monitoring -Continue heart healthy renal diet -Continue daily medication regimen with aspirin 81 mg daily, atorvastatin 40 mg daily, Plavix 75 mg daily, isosorbide mononitrate 30 mg daily, metoprolol 12.5 mg twice daily, midodrine 10 mg 3 times daily with meals. ESRD Hyperkalemia, resolved after hemodialysis -Nephrology following for management of dialysis. -Vascular surgery placed permacath to left jugular on 06/03/23. -Patient started on hemodialysis and has since been undergoing hemodialysis Mondays/Wednesdays/Fridays -Continuation of sodium bicarb 650 mg daily Data reviewed: Vital signs reviewed. Blood pressure 118/60, heart rate 71, respiratory rate 18, temp 97.7F, SpO2 of 96% on 2 L. Morning labs completed and reviewed. CBC showing macrocytic anemia with hemoglobin of 7.9. BMP revealing mild hyponatremia with sodium 131 hypochloremia with chloride of 97 with renal function showing BUN of 44, creatinine 3.73, GFR 15. CRP continues to elevate and is currently 14.1. Blood cultures showing no growth 48 hours. CODE STATUS: Full code DVT prophylaxis: Heparin Discussed with: Pt, RN, and infectious disease physician as well as patient's granddaughter at bedside Anticipated discharge date: Patient has received authorization from [place] with plans to discharge to inpatient rehab on Saturday06/10/[address]: Patient to be discharged to inpatient rehab on Saturday06/10/23 Patient was seen independently by Nurse Practitioner. This document was prepared using [employer] dictation software. Please allow for errors in dispatch specialist while rare they do occur. Matty Aviles NP rendered care for this patient independently, reviewed the findings and plan as documented in the note above. I did not physically speak with or examine the patient on this date. Objective - Vital Signs Vital signs: Vital Signs Temp 97.7 F 06/08/23 07:53 Pulse 71 06/08/23 07:53 Resp 18 10/21/23 07:53 BP 118/60 06/08/23 07:53 Pulse Ox 96 06/08/23 08:40 FiO2 Intake & Output 06/07/23 06/08/23 06/08/23 18:59 06:59 18:59 Intake Total 740 640 Output Total 1400 Balance -660 640 Weight 62 kg Intake: Intake, IV Titration 200 100 Amount Piperacillin-Tazobactam 3 100 100 .375 gm In Sodium Chloride 0.9% 100 ml @ 25 mls/hr IVPB Q12HR [facility] Rx #:[id number] Sodium Ferric Gluconat- 100 Sucrose 125 mg In Sodium Chloride 0.9% 100 ml @ 100 mls/hr IVPB DAILY [facility] Rx#:[id number] Oral 240 540 Hemodialysis 300 Output: Hemodialysis 1400 Other: Voiding Method Bedside Commode Bedside Commode # Voids 1 1 # Bowel Movements 1 - Labs CBC & Chem 7: 06/08/23 06:44 06/08/23 06:44 Labs: Abnormal Lab Results - Last 24 Hours (Table) 06/07/23 06/07/23 06/07/23 Range/Units 12:10 17:27 20:07 POC Glucose (mg/dL) 137 H 171 H 207 H (70-110) mg/dL 06/08/23 06/08/23 Range/Units 01:13 07:45 POC Glucose (mg/dL) 280 H 158 H (70-110) mg/dL Microbiology - Last 24 Hours (Table) 06/06/23 06:05 Blood Culture - Preliminary Blood
[2023-06-08 21:14] LABS: Glucose,Whole Blood 240 mg/dL (70-110)
[2023-06-08] MEDS: ATORVASTATIN 40 MG TAB PO SCH (21:29)
[2023-06-08] MEDS: MELATONIN 5 MG TABLET PO SCH (21:29)
[2023-06-08] MEDS: DULoxetine HCL 20 MG CAPSULE.DR PO SCH (21:29)
[2023-06-08] MEDS: oxyBUTYnin chloride 5 MG TAB PO SCH (21:30)
--- NOTE | 2023-06-08 22:08 | P.PN ---
Subjective Progress Note Date: 06/08/23 Principal diagnosis: scrotal wound Patient is a 73-year-old male with a past medical his significant for diabetes mellitus COPD hypertension hyperlipidemia coronary artery disease, patient also have a history of necrotizing infection to the right groin and scrotal area for the patient was treated at [facility], patient current did have wound to the right groin and scrotal area. On today's evaluation that is 06/08/2023, patient remains to be afebrile, the pa tient is breathing comfortably on 2 L nasal cannula the patient denies having any chest pain shortness of the cough no abdominal pain and no diarrhea has been reported. Patient white normalized to 10.0, creatinine 3.73 CRP is slightly up to 14.1 Objective - Vital Signs Vital signs: Vital Signs Temp 97.7 F 06/08/23 07:53 Pulse 60 06/08/23 12:45 Resp 18 06/08/23 07:53 BP 118/60 06/08/23 07:53 Pulse Ox 96 06/08/23 08:40 FiO2 Intake & Output 06/07/23 06/08/23 06/08/23 18:59 06:59 18:59 Intake Total 740 640 Output Total 1400 Balance -660 640 Weight 62 kg Intake: Intake, IV Titration 200 100 Amount Piperacillin-Tazobactam 3 100 100 .375 gm In Sodium Chloride 0.9% 100 ml @ 25 mls/hr IVPB Q12HR [facility] Rx #:[id number] Sodium Ferric Gluconat- 100 Sucrose 125 mg In Sodium Chloride 0.9% 100 ml @ 100 mls/hr IVPB DAILY [facility] Rx#:[id number] Oral 240 540 Hemodialysis 300 Output: Hemodialysis 1400 Other: Voiding Method Bedside Commode Bedside Commode Bedside Commode # Voids 1 1 # Bowel Movements 1 - Labs CBC & Chem 7: 06/08/23 06:44 06/08/23 06:44 Labs: Abnormal Lab Results - Last 24 Hours (Table) 06/07/23 06/07/23 06/08/23 Range/Units 17:27 20:07 01:13 RBC (4.30-5.90) m/uL Hgb (13.0-17.5) gm/dL Hct (39.0-53.0) % MCV (80.0-100.0) fL MCHC (31.0-37.0) g/dL RDW (11.5-15.5) % Neutrophils # (1.3-7.7) k/uL Lymphocytes # (1.0-4.8) k/uL Sodium (137-145) mmol/L Chloride (98-107) mmol/L BUN (9-20) mg/dL Creatinine (0.66-1.25) mg/dL Glucose (74-99) mg/dL POC Glucose (mg/dL) 171 H 207 H 280 H (70-110) mg/dL C-Reactive Protein (<1.0) mg/dL 06/08/23 06/08/23 06/08/23 Range/Units 06:44 06:44 07:45 RBC 2.54 L (4.30-5.90) m/uL Hgb 7.9 L D (13.0-17.5) gm/dL Hct 26.1 L (39.0-53.0) % MCV 102.7 H (80.0-100.0) fL MCHC 30.1 L (31.0-37.0) g/dL RDW 17.6 H (11.5-15.5) % Neutrophils # 8.5 H (1.3-7.7) k/uL Lymphocytes # 0.9 L (1.0-4.8) k/uL Sodium 131 L (137-145) mmol/L Chloride 97 L (98-107) mmol/L BUN 44 H (9-20) mg/dL Creatinine 3.73 H (0.66-1.25) mg/dL Glucose 133 H (74-99) mg/dL POC Glucose (mg/dL) 158 H (70-110) mg/dL C-Reactive Protein 14.1 H (<1.0) mg/dL 06/08/23 Range/Units 12:29 RBC (4.30-5.90) m/uL Hgb (13.0-17.5) gm/dL Hct (39.0-53.0) % MCV (80.0-100.0) fL MCHC (31.0-37.0) g/dL RDW (11.5-15.5) % Neutrophils # (1.3-7.7) k/uL Lymphocytes # (1.0-4.8) k/uL Sodium (137-145) mmol/L Chloride (98-107) mmol/L BUN (9-20) mg/dL Creatinine (0.66-1.25) mg/dL Glucose (74-99) mg/dL POC Glucose (mg/dL) 184 H (70-110) mg/dL C-Reactive Protein (<1.0) mg/dL Microbiology - Last 24 Hours (Table) 06/06/23 06:05 Blood Culture - Preliminary Blood Assessment and Plan (1) Leukocytosis Current Visit: Yes Status: Acute Code(s): D72.829 - ELEVATED WHITE BLOOD CELL COUNT, UNSPECIFIED SNOMED Code(s): 622525627 (2) Open wound of scrotum Current Visit: Yes Status: Acute Code(s): S31.30XA - UNSPECIFIED OPEN WOUND OF SCROTUM AND TESTES, INIT ENCNTR SNOMED Code(s): 261245278 (3) Right groin wound Current Visit: No Status: Acute Code(s): S31.109A - UNSP OPN WND ABD WALL, UNSP Q W/O PENET PERIT CAV, INIT SNOMED Code(s): 810232552 Plan: 1patient with recent history of necrotizing fasciitis requiring extensive surgery to the right groin scrotal area and [facility] with admission to the hospital this time for weakness and fall patient did not have any fever however noticed to have slight worsening of the white count over the last 3 days overall her wound to the scrotum and groin area healed healing well chest x-ray did not show any pneumonia and patient denies any significant respiratory symptoms abdominal was soft no evidence of any cellulitis 2patient did have elevated inflammatory markers cultures are currently pending. 3nursing staff was unable to get peritoneal fluid for cell count and cultures. 4patient white count has normalized with addition of Zosyn which will be continued hopefully transition to oral antibiotics on discharge. 5local wound care to the right groin to continue with the wound VAC and to the scrotal wound with this center followed by moist dressing change daily Dictation was produced using [employer] software. please excuse any grammatical, word or spelling errors.
[2023-06-09] MEDS: CALCIUM ACETATE 667 MG TAB PO SCH ×5 (05:25→23:42)
[2023-06-09] MEDS: MIDODRINE 5 MG TAB PO SCH ×4 (07:30→17:02)
[2023-06-09 07:43] LABS: Glucose,Whole Blood 181 mg/dL (70-110)
[2023-06-09] MEDS: PIPERACILLIN-TAZOBACTAM 3.375 GM in SODIUM CHLORIDE 0.9% 100 ML IVPB SCH ×2 (08:39→20:17)
[2023-06-09] MEDS: RANOLAZINE 500 MG TAB.ER.12H PO SCH ×2 (08:40→21:41)
[2023-06-09] MEDS: SODIUM BICARBONATE TAB 650 MG TAB PO SCH (08:40)
[2023-06-09] MEDS: CLOPIDOGREL 75 MG TAB PO SCH (08:40)
[2023-06-09] MEDS: PANTOPRAZOLE 40 MG TABLET PO SCH ×2 (08:40→21:41)
[2023-06-09] MEDS: FOLIC ACID-VIT B COMPLEX-VIT C 1 CAP PO SCH (08:40)
[2023-06-09] MEDS: METOPROLOL TARTRATE 12.5 MG TAB PO SCH ×2 (08:40→21:41)
[2023-06-09] MEDS: CYANOCOBALAMIN 500 MCG TAB PO SCH (08:41)
[2023-06-09] MEDS: ISOSORBIDE MONONITRATE ER 30 MG TAB.ER.24H PO SCH (08:41)
[2023-06-09] MEDS: HYDROPHILIC CREAM 180 GM TUBE TOPICAL SCH (08:41)
[2023-06-09] MEDS: ASPIRIN 81 MG PO SCH (08:41)
[2023-06-09] MEDS: GABAPENTIN 100 MG CAP PO SCH ×3 (08:41→21:41)
[2023-06-09] MEDS: HEPARIN SODIUM,PORCINE 5,000 UNIT/ML 1 ML VIAL SQ SCH ×2 (08:41→20:17)
[2023-06-09] MEDS: COLLAGENASE 250 UNIT/GM OINTMENT 30 GM TUBE TOPICAL SCH (08:42)
[2023-06-09] MEDS: SENNOSIDES-DOCUSATE SODIUM 1 EACH TAB PO SCH ×2 (08:42→21:41)
[2023-06-09] MEDS: HYDROcodone/APAP 5-325MG 1 EACH TAB PO PRN (09:01)
[2023-06-09] MEDS: INSULIN DETEMIR (LEVEMIR) 100 UNIT/ML SYR SQ SCH ×2 (09:57→09:58)
--- NOTE | 2023-06-09 12:21 | P.PN ---
Subjective Patient is a 73-year-old male with end-stage renal disease maintained on peritoneal dialysis. Patient was admitted with increased weakness and he will be discharged to rehab. Patient has therefore been switched to hemodialysis. Scheduled for hemodialysis in a.m. No complaints. Objective - Vital Signs Vital signs: Vital Signs Temp 97.5 F L 06/09/23 01:47 Pulse 62 06/09/23 07:45 Resp 18 06/09/23 07:45 BP 103/44 06/09/23 07:45 Pulse Ox 91 L 06/09/23 07:45 FiO2 Intake & Output 06/08/23 06/09/23 06/09/23 18:59 06:59 18:59 Intake Total 690 Balance 690 Weight 57.5 kg Intake: Intake, IV Titration 100 Amount Piperacillin-Tazobactam 3 100 .375 gm In Sodium Chloride 0.9% 100 ml @ 25 mls/hr IVPB Q12HR [facility] Rx #:[id number] Oral 590 Other: Voiding Method Bedside Commode Bedside Commode Bedside Commode # Voids 1 # Bowel Movements 1 1 - Exam Patient is awake, comfortable, in no acute distress Alert oriented 3 Examination of the heart S1 and S2 Examination of the lungs bilateral breath sounds are heard Abdomen is soft nontender Right groin wound VAC Examination of lower extremities shows no significant edema [employer] exam grossly intact - Labs CBC & Chem 7: 06/08/23 06:44 06/08/23 06:44 Labs: Abnormal Lab Results - Last 24 Hours (Table) 06/08/23 06/08/23 06/08/23 Range/Units 12:29 17:27 21:12 POC Glucose (mg/dL) 184 H 189 H 240 H (70-110) mg/dL 06/09/23 Range/Units 07:42 POC Glucose (mg/dL) 181 H (70-110) mg/dL Microbiology - Last 24 Hours (Table) 06/06/23 06:05 Blood Culture - Preliminary Blood Assessment and Plan Assessment: 1. End-stage renal disease , switched to temporary hemodialysis while in rehab. 2. Volume overload currently improved 3. Status post recent surgeries to the right groin for necrotizing infection s tatus post wound VAC 4. Generalized weakness and debility, patient will need to be discharged to re hab 5. Anemia of chronic disease status post IV iron last admission Plan: Hemodialysis in a.m. Awaiting discharge to rehab
[2023-06-09 12:26] LABS: Glucose,Whole Blood 183 mg/dL (70-110)
[2023-06-09 13:28] LABS: HGB 8.1 d/dL (13.0-17.0); MCH 30.1 pg (27.0-32.0); MCHC 28.9 d/dL (32.0-37.0); MCV 104.1 FL (80.0-97.0); Mean Platelet Volume 10.7 FL (9.5-12.2); NRBC Per 100 WBC 0 X 10*3/uL (0.00-0.01); Platelet Count 266 X 10*3/uL (140-440); RBC 2.69 X 10*6/uL (4.40-5.60); RDW 18.5 % (11.5-14.5); WBC 11.89 X 10*3/uL (4.50-10.00)
[2023-06-09 14:18] LABS: Magnesium 2.3 mg/dL (1.5-2.4)
[2023-06-09 14:25] LABS: ALT 16 U/L (10-49); AST 14 U/L (14-35); Albumin 2.4 d/dL (3.8-4.9); Albumin/Globulin Ratio 0.89 Ratio (1.60-3.17); Alkaline Phosphatase 108 U/L (41-126); BUN/Creat Ratio 10.89 Ratio (12.00-20.00); Calcium 9.9 mg/dL (8.7-10.3); Carbon Dioxide 27.4 mmol/L (21.6-31.8); Chloride 94 mmol/L (96-109); Globulin 2.7 d/dL (1.6-3.3); Glucose 173 mg/dL (70-110); Potassium 5.5 mmol/L (3.5-5.5); Sodium 134 mmol/L (135-145); Total Bilirubin <0.2 mg/dL (0.3-1.2); Total Protein 5.1 d/dL (6.2-8.2)
[2023-06-09] MEDS: AMIODARONE 200 MG TAB PO SCH (14:55)
--- NOTE | 2023-06-09 15:15 | P.PN ---
Subjective Progress Note Date: 06/09/23 Principal diagnosis: scrotal wound Patient is a 73-year-old male with a past medical his significant for diabetes mellitus COPD hypertension hyperlipidemia coronary artery disease, patient also have a history of necrotizing infection to the right groin and scrotal area for the patient was treated at [facility], patient current did have wound to the right groin and scrotal area. On today's evaluation that is 06/09/2023, the patient remains to be afebrile, th e patient is breathing comfortably on room air without the need for supplemental oxygen , the patient denies chest pain or cough, patient denies nausea/vomiting or diarrhea and denies any abdominal pain Patient white is slightly up to 11.89, creatinine 5.6 , blood cultures so far negative Objective - Vital Signs Vital signs: Vital Signs Temp 97.4 F L 06/09/23 12:26 Pulse 62 06/09/23 12:26 Resp 18 06/09/23 12:26 BP 127/69 06/09/23 12:26 Pulse Ox 100 06/09/23 12:26 FiO2 Intake & Output 06/08/23 06/09/23 06/09/23 18:59 06:59 18:59 Intake Total 690 Output Total 590 Balance 690 -590 Weight 57.5 kg Intake: Intake, IV Titration 100 Amount Piperacillin-Tazobactam 3 100 .375 gm In Sodium Chloride 0.9% 100 ml @ 25 mls/hr IVPB Q12HR [facility] Rx #:[id number] Oral 590 Output: Urine 590 Other: Voiding Method Bedside Commode Bedside Commode Bedside Commode # Voids 1 # Bowel Movements 1 1 - Exam GENERAL DESCRIPTION: Elderly male lying in bed in no distress RESPIRATORY SYSTEM: Unlabored breathing , decreased breath sounds at bases Heart S1-S2 regular rate and rhythm ABDOMEN: Soft , mild tenderness, right groin wound looks clean with no slough tissue surrounding redness : Scrotal wound x2 lower wound did have embedded wound VAC sponge EXTREMITIES: No edema feet - Labs CBC & Chem 7: 06/09/23 06:13 06/09/23 06:13 Labs: Abnormal Lab Results - Last 24 Hours (Table) 06/08/23 06/08/23 06/09/23 Range/Units 17:27 21:12 06:13 WBC 11.89 H (4.50-10.00) X 10*3/uL RBC 2.69 L (4.40-5.60) X 10*6/uL Hgb 8.1 L (13.0-17.0) d/dL Hct 28.0 L (39.6-50.0) % MCV 104.1 H (80.0-97.0) FL MCHC 28.9 L (32.0-37.0) d/dL RDW 18.5 H (11.5-14.5) % Sodium (135-145) mmol/L Chloride (96-109) mmol/L Anion Gap (4.00-12.00) mmol/L BUN (9.0-27.0) mg/dL Creatinine (0.6-1.5) mg/dL Est GFR (CKD-EPI) (>=60) BUN/Creatinine Ratio (12.00-20.00) Ratio Glucose (70-110) mg/dL POC Glucose (mg/dL) 189 H 240 H (70-110) mg/dL Total Bilirubin (0.3-1.2) mg/dL Total Protein (6.2-8.2) d/dL Albumin (3.8-4.9) d/dL Albumin/Globulin Ratio (1.60-3.17) Ratio 06/09/23 06/09/23 06/09/23 Range/Units 06:13 07:42 12:25 WBC (4.50-10.00) X 10*3/uL RBC (4.40-5.60) X 10*6/uL Hgb (13.0-17.0) d/dL Hct (39.6-50.0) % MCV (80.0-97.0) FL MCHC (32.0-37.0) d/dL RDW (11.5-14.5) % Sodium 134 L (135-145) mmol/L Chloride 94 L (96-109) mmol/L Anion Gap 12.60 H (4.00-12.00) mmol/L BUN 61.0 H (9.0-27.0) mg/dL Creatinine 5.6 H (0.6-1.5) mg/dL Est GFR (CKD-EPI) 10 L (>=60) BUN/Creatinine Ratio 10.89 L (12.00-20.00) Ratio Glucose 173 H (70-110) mg/dL POC Glucose (mg/dL) 181 H 183 H (70-110) mg/dL Total Bilirubin <0.2 L (0.3-1.2) mg/dL Total Protein 5.1 L (6.2-8.2) d/dL Albumin 2.4 L (3.8-4.9) d/dL Albumin/Globulin Ratio 0.89 L (1.60-3.17) Ratio Microbiology - Last 24 Hours (Table) 06/06/23 06:05 Blood Culture - Preliminary Blood Assessment and Plan (1) Leukocytosis Current Visit: Yes Status: Acute Code(s): D72.829 - ELEVATED WHITE BLOOD CELL COUNT, UNSPECIFIED SNOMED Code(s): 619169006 (2) Open wound of scrotum Current Visit: Yes Status: Acute Code(s): S31.30XA - UNSPECIFIED OPEN WOUND OF SCROTUM AND TESTES, INIT ENCNTR SNOMED Code(s): 555356417 (3) Right groin wound Current Visit: No Status: Acute Code(s): S31.109A - UNSP OPN WND ABD WALL, UNSP Q W/O PENET PERIT CAV, INIT SNOMED Code(s): 547325884 Plan: 1patient with recent history of necrotizing fasciitis requiring extensive surgery to the right groin scrotal area and [facility] with admission to the hospital this time for weakness and fall patient did not have any fever however noticed to have slight worsening of the white count over the last 3 days overall her wound to the scrotum and groin area healed healing well chest x-ray did not show any pneumonia and patient denies any significant respiratory s ymptoms abdominal was soft no evidence of any cellulitis 2patient did have elevated inflammatory markers cultures are are so far negative 3nursing staff was unable to get peritoneal fluid for cell count and cultures. 4patient white count normalized yesterday was slightly elevated today, we'll repeat a CBC tomorrow, continue with addition of Zosyn and hopefully transition to oral antibiotics on discharge. 5local wound care to the right groin to continue with the wound VAC and to the scrotal wound with this center followed by moist dressing change daily Dictation was produced using [employer] software. please excuse any grammatical, word or spelling errors. Time with Patient: Less than 30
[2023-06-09 17:13] LABS: Glucose,Whole Blood 172 mg/dL (70-110)
--- NOTE | 2023-06-09 18:10 | P.PN ---
Subjective Progress Note Date: 06/09/23 Hospital Course: Patient is a 73-year-old male male with a past medical history of ESRD on peritoneal dialysis, chronic systolic heart failure with previously known EF of 35%, CAD with previous stents, hypertension, hyperlipidemia, and diabetes mellitus. Presented to the emergency department with a chief complaint of increasing weakness, chest pain, and fall at home. Patient recently underwent hospitalization and ICU admission for pulmonary edema. Patient was discharged home on 05/31/23. Reports after going home he had difficulties ambulating resulting in recurrent falls due to weakness. Patient reports he was encouraged to go to a rehab facility prior to discharge but will not do hemodialysis and wanted to be discharged back home to continue his peritoneal dialysis. He reports he would've stayed home but developed pain to his midsternal chest so he came back to the hospital for evaluation. Upon arrival to our facility patient underwent full evaluation. EKG was completed showing normal sinus rhythm at 71 bpm with left bundle branch block upon personal review and interpretation. CBC showing mild leukocytosis with WBC count of 11.4, macrocytic anemia with hemoglobin of 9.3. BMP showing sodium 134, chloride 93, and elevated renal function consistent with ESRD with BUN 54, creatinine 7.36, and GFR of 7. Magnesium was low at 1.6. Alkaline phosphatase elevated at 164. Troponin 0.026 and pro-BMP 29,900. Patient admitted under our services with consultation to both cardiology , nephrology, urology, and infectious disease. Troponins were trended and flat at 0.026, 0.028, and 0.026. Cardiology evaluated and ruled out out acute coronary event recommending no medication changes at this time and continued outpatient follow-up in their office upon discharge. Nephrology following and managing peritoneal dialysis, freight representative recommended patient be placed on temporary hemodialysis for much-needed discharge to rehab facility. Patient and were in agreement and vascular surgery placed permacath to left jugular on 06/03/23 and patient has since been undergoing hemodialysis Saturday/Saturday/Saturday. Wound care and urology also following for management of right inguinal and scrotal wound with previous necrotizing infection status post recent I&D and placement of wound VAC. [place] for patient to be discharged to inpatient rehab. Per case management patient able to go to inpatient rehabilitation facility on Saturday06/10/23. Physical exam: Patient seen and fully evaluated at bedside this morning. Patient reports feeling sleepy this morning. Vital signs reviewed and stable. General: Nontoxic, no distress and appears stated age. Derm: Skin warm and dry, normal coloration for ethnicity. Head: Atraumatic, normocephalic and symmetric. Eyes: EOMs intact, no lid lag, and anicteric sclera Mouth: no lip lesions, mucus membranes moist Cardiovascular: regular rate and rhythm with normal S1S2, systolic murmur, positive posterior tibial pulses bilaterally, and cap refill < 2 seconds. Lungs: Respirations even, regular, and unlabored on room air. Lungs CTA bilaterally, no rhonchi, no rales, no wheezing, and no accessory muscle usage. Abdominal: soft and distended, nontender to palpation, no guarding, peritoneal dialysis catheter in place. Wound VAC in place right groin. Ext: ROM intact. No gross muscle atrophy, no edema, no contractures Neuro: Speech clear, face symmetrical and CN II-XII grossly intact with no noted focal neuro deficits Psych: Alert and oriented to person, place, time, and situation. Appropriate and pleasant affect. Patient does have episodes of confusion but is currently alert and oriented at this present time. Assessment and Plan of Care: Scrotal ulceration, present on admission concerning for infection History of necrotizing infection to right groin/scrotal region Status post recent I&D of right groin and placement of wound VAC Leukocytosis, resolved -Wound care following for wound care orders and management of wound VAC -Urology following recommending leaving wound VAC over right inguinal region., and Packing scrotal wound with iodoform gauze. Patient should be receiving broad-spectrum antibiotics. -Infectious disease following, recommending continuation of current IV antibiotics and obtaining blood cultures, inflammatory markers, and repeat CBC. -Continue IV antibiotics with Zosyn 3.375 g every 12 hours pending further recommendations from infectious disease. -Blood cultures showing no growth to date. Hypoglycemia, Insulin-dependent diabetes mellitus with Recurrent episodes of hypoglycemia -Patient had recurrent episodes of hypoglycemia and sliding scale, long-acting, and fixed dose insulin was discontinued. Hemoglobin A1c 6.5%. Blood glucose levels have ranged from 158-280 over the past 24 hours since discontinuation of insulin. We will resume only Levemir 10 units daily and monitor closely for any signs of recurrent hypoglycemia. Metabolic encephalopathy secondary to azotemia resulting from endstage renal disease Generalized weakness and debility with recurrent falls at home resulting from physical deconditioning secondary to advanced age and chronic illness -Patient with intermittent confusion and generalized weakness progressively worsening resulting in inability to completely necessary ADLs. -Fall precautions in place. -Physical therapy following, patient has been approved for inpatient rehab, plans for discharge Saturday06/10/23. Chest pain, acute coronary event ruled out History of CAD status post stents Hypertension Hyperlipidemia -Cardiology evaluated and ruled out out acute coronary event, recommending no medication changes at this time and continued outpatient follow-up in their office upon discharge. -Continue daily medication regimen with aspirin 81 mg daily, atorvastatin 40 mg daily, Plavix 75 mg daily, isosorbide mononitrate 30 mg daily, metoprolol 12.5 mg twice daily, midodrine 10 mg 3 times daily with meals. ESRD Hyperkalemia, resolved after pt started hemodialysis -Nephrology following for management of dialysis. -Vascular surgery placed permacath to left jugular on 06/03/23. -Patient started on hemodialysis and has since been undergoing hemodialysis Mondays/Wednesdays/Fridays -Continuation of sodium bicarb 650 mg daily Data reviewed: Vital signs reviewed. Blood pressure 103/44, heart rate 62, respiratory rate 18, temp 97.5F, SpO2 of 91% on room air. Morning labs completed and reviewed. CBC showing leukocytosis with WBC count of 11.89, macrocytic anemia with hemoglobin of 8.1. BMP revealing mild hyponatremia with sodium 134, chloride 94, anion gap slightly elevated at 12.60 and renal function with BUN of 61, creatinine 5.6, and GFR of 10.89. Potassium 5.5. Magnesium 2.3. Blood cultures showing no growth 72 hours. Imaging reviewed: No new imaging for review at this time. CODE STATUS: Full code DVT prophylaxis: Heparin Discussed with: Pt, RN, infectious disease physician, and freight representative Anticipated discharge date: [place] from [place] with plans to discharge to inpatient rehab on Saturday06/10/[address]: Patient to be discharged to inpatient rehab on Saturday06/10/23 Patient was seen independently by Nurse Practitioner. This document was prepared using [employer] dictation software. Please allow for errors in ham pumper while rare they do occur. Matty Aviles NP rendered care for this patient independently, reviewed the findings and plan as documented in the note above. I did not physically speak with or examine the patient on this date. Objective - Vital Signs Vital signs: Vital Signs Temp 97.5 F L 06/09/23 01:47 Pulse 62 06/09/23 07:45 Resp 18 06/09/23 07:45 BP 103/44 06/09/23 07:45 Pulse Ox 91 L 06/09/23 07:45 FiO2 Intake & Output 06/08/23 06/09/23 06/09/23 18:59 06:59 18:59 Intake Total 690 Balance 690 Weight 57.5 kg Intake: Intake, IV Titration 100 Amount Piperacillin-Tazobactam 3 100 .375 gm In Sodium Chloride 0.9% 100 ml @ 25 mls/hr IVPB Q12HR [facility] Rx #:[id number] Oral 590 Other: Voiding Method Bedside Commode Bedside Commode Bedside Commode # Voids 1 # Bowel Movements 1 1 - Labs CBC & Chem 7: 06/09/23 06:13 06/09/23 06:13 Labs: Abnormal Lab Results - Last 24 Hours (Table) 06/08/23 06/08/23 06/08/23 Range/Units 06:44 12:29 17:27 Sodium 131 L (137-145) mmol/L Chloride 97 L (98-107) mmol/L BUN 44 H (9-20) mg/dL Creatinine 3.73 H (0.66-1.25) mg/dL Glucose 133 H (74-99) mg/dL POC Glucose (mg/dL) 184 H 189 H (70-110) mg/dL C-Reactive Protein 14.1 H (<1.0) mg/dL 06/08/23 06/09/23 Range/Units 21:12 07:42 Sodium (137-145) mmol/L Chloride (98-107) mmol/L BUN (9-20) mg/dL Creatinine (0.66-1.25) mg/dL Glucose (74-99) mg/dL POC Glucose (mg/dL) 240 H 181 H (70-110) mg/dL C-Reactive Protein (<1.0) mg/dL Microbiology - Last 24 Hours (Table) 06/06/23 06:05 Blood Culture - Preliminary Blood
[2023-06-09 20:50] LABS: Glucose,Whole Blood 188 mg/dL (70-110)
[2023-06-09] MEDS: ATORVASTATIN 40 MG TAB PO SCH (21:41)
[2023-06-09] MEDS: MELATONIN 5 MG TABLET PO SCH (21:41)
[2023-06-09] MEDS: oxyBUTYnin chloride 5 MG TAB PO SCH (21:41)
[2023-06-09] MEDS: DULoxetine HCL 20 MG CAPSULE.DR PO SCH (21:41)
[2023-06-10 02:00] LABS: Glucose,Whole Blood 140 mg/dL (70-110)
[2023-06-10] MEDS: CALCIUM ACETATE 667 MG TAB PO SCH ×2 (05:05→12:11)
[2023-06-10 07:20] LABS: Glucose,Whole Blood 142 mg/dL (70-110)
[2023-06-10] MEDS: METOPROLOL TARTRATE 12.5 MG TAB PO SCH (08:14)
[2023-06-10] MEDS: PIPERACILLIN-TAZOBACTAM 3.375 GM in SODIUM CHLORIDE 0.9% 100 ML IVPB SCH (08:14)
[2023-06-10] MEDS: ISOSORBIDE MONONITRATE ER 30 MG TAB.ER.24H PO SCH (08:15)
[2023-06-10] MEDS: INSULIN DETEMIR (LEVEMIR) 100 UNIT/ML SYR SQ SCH (08:20)
[2023-06-10] MEDS: HEPARIN SODIUM,PORCINE 5,000 UNIT/ML 1 ML VIAL SQ SCH (08:20)
[2023-06-10] MEDS: CYANOCOBALAMIN 500 MCG TAB PO SCH (08:21)
[2023-06-10] MEDS: SODIUM BICARBONATE TAB 650 MG TAB PO SCH (08:21)
[2023-06-10] MEDS: ASPIRIN 81 MG PO SCH (08:21)
[2023-06-10] MEDS: PANTOPRAZOLE 40 MG TABLET PO SCH (08:21)
[2023-06-10] MEDS: CLOPIDOGREL 75 MG TAB PO SCH (08:22)
[2023-06-10] MEDS: FOLIC ACID-VIT B COMPLEX-VIT C 1 CAP PO SCH (08:22)
[2023-06-10] MEDS: GABAPENTIN 100 MG CAP PO SCH ×2 (08:22→14:27)
[2023-06-10] MEDS: RANOLAZINE 500 MG TAB.ER.12H PO SCH (08:22)
[2023-06-10] MEDS: SENNOSIDES-DOCUSATE SODIUM 1 EACH TAB PO SCH (08:23)
[2023-06-10] MEDS: MIDODRINE 5 MG TAB PO SCH ×3 (08:39→11:37)
[2023-06-10] MEDS: HYDROPHILIC CREAM 180 GM TUBE TOPICAL SCH (09:38)
[2023-06-10] MEDS: COLLAGENASE 250 UNIT/GM OINTMENT 30 GM TUBE TOPICAL SCH (09:39)
--- NOTE | 2023-06-10 10:02 | P.DS ---
Providers Date of admission: 06/01/23 07:56 Expected date of discharge: 06/10/23 Attending physician: Rafa Sanchez MD Consults: 06/01/23 08:01 Consult Physician Routine Consulting Provider: Yulissa Ivory Consult Reason/Comments: Peritoneal dialysis Do you want consulting provider notified?: Yes 06/01/23 09:15 Consult Physician Routine Consulting Provider: Bobby Stone Consult Reason/Comments: chest pain Do you want consulting provider notified?: Yes 06/03/23 10:38 Consult Physician Routine Consulting Provider: Troy Riggins Consult Reason/Comments: in pt rehab eval please Do you want consulting provider notified?: Yes 06/03/23 11:06 Consult Physician Routine Consulting Provider: Luigi Oconnell Consult Reason/Comments: permacath placement for dialysis Do you want consulting provider notified?: Yes 06/04/23 10:14 Consult Physician Routine Consulting Provider: Ruy Vázquez Consult Reason/Comments: testicular foreign object Do you want consulting provider notified?: Yes 06/05/23 13:14 Consult Physician Routine Consulting Provider: Maricel Jansen Consult Reason/Comments: recent groin abscess with wound vac, scrotal ulceration, recent nec fasc Do you want consulting provider notified?: Yes Primary care physician: [facility] Hospital Course: Discharge Diagnosis: Recent necrotizing fasciitis of the groin, with wound break down, requiring wound vac. Leukocytosis, resolved Hypoglycemia, Insulin-dependent diabetes mellitus with Recurrent episodes of hypoglycemia- Hemoglobin A1c 6.5%. Metabolic encephalopathy secondary to azotemia resulting from endstage renal disease Generalized weakness and debility with recurrent falls at home resulting from physical deconditioning secondary to advanced age and chronic illness Chest pain, acute coronary event ruled out History of CAD status post stents Hypertension Hyperlipidemia ESRD- on HD M/W/F Hospital Course: Patient is a 73-year-old male male with ESRD typically on peritoneal dialysis, chronic systolic heart failure with previously known EF of 35%, CAD with previous stents, hypertension, hyperlipidemia, and diabetes mellitus who presented to the emergency department with a chief complaint of increasing weakness, chest pain, and fall at home. Patient was discharged on 05/31/23 after a hospitalization requiring ICU admission for pulmonary edema. After going home he had difficulties ambulating resulting in recurrent falls due to weakness. In the emergency department he underwent an extensive evaluation. EKG was completed demonstarting chronic left bundle branck block. Labs were remarkable for leukocytosis with WBC count of 11.4, hemoglobin of 9.3, sodium 134, chloride 93, BUN 54, creatinine 7.36 (consistent with ESRD), Magnesium 1.6, alkaline phosphatase elevated at 164, troponin 0.026 and pro-BNP 29,900. He was admitted under our services with consultation to cardiology, nephrology, urology, and infectious disease. Troponins remained flat. Cardiology ruled out out acute coronary event, recommending no medication changes at this time with outpatient follow-up. Nephrology following pt had temporary hemodialysis cath on 06/03/23, current HD schedule is Saturday/Saturday/Saturday. Wound care and urology also following for management of right inguinal and scrotal wound with previous necrotizing infection status post recent I&D and placement of wound VAC. He was followed by infectious disease who recommended complete a course of oral abx. He was doing well and was determined stable for dischare to inpatient rehab. Follow-up: Nephrology for HD, will need to see wound care on discharge from [facility]. Patient with hypoglycemia and insulin decreased with resolution of hypoglycemia. Patient seen and examined at bedside. He is frustrated that he has to go to rehab but has no other complaints currently. Vital signs reviewed and stable. General: nontoxic, no distress, appears at stated age Cardiovascular: S1S2 reg, no murmur, positive posterior tibial pulse bilateral, Lungs: CTA bilateral, no rhonchi, no rales , no accessory muscle use Abdominal: soft, +tender to palpation near PD cath site, no guarding, no appreciable organomegaly Ext: no gross muscle atrophy, no edema b/l lower extremities, no contractures Neuro: CN II-XI grossly intact, no focal neuro deficits Psych: Alert, oriented to self and situation, appropriate affect A total of 25 minutes of time were spent preparing this complex discharge summary. Patient was discharged on 06/10/23. This dictation was prepared using [employer] voice recognition software. Though every attempt is made to correct errors during dictation some may still exist. Patient Condition at Discharge: Fair Plan - Discharge Summary Discharge Rx Participant: No New Discharge Prescriptions: New Aspirin 81 mg PO DAILY tab Amoxic-Pot Clav 875-125Mg [Augmentin 875-125] 1 tab PO BID 10 Days #20 tab Insulin Detemir (Levemir) [Levemir] 10 unit SQ DAILY@0700 each Continue Ergocalciferol (Vitamin D2) [Vitamin D2] 1,250 mcg PO Q14D DULoxetine HCL [Cymbalta] 20 mg PO HS@2200 Melatonin 5 mg PO HS@2200 Sennosides-Docusate Sodium [Senokot-S] 2 tab PO BID@1000,2200 Nitroglycerin Sl Tabs [Nitrostat] 0.4 mg SL Q5M PRN PRN Reason: Chest Pain Gabapentin [Neurontin] 100 mg PO TID@1000,1430,2200 oxyBUTYnin chloride [Ditropan] 5 mg PO HS@2200 Cyanocobalamin [Vitamin B-12] 1,000 mcg PO DAILY@1000 Amiodarone [Cordarone] 200 mg PO DAILY@1430 Calcium Acetate [PhosLo] 1,334 mg PO 5XD Isosorbide Mononitrate ER [Imdur] 30 mg PO DAILY@1000 Ranolazine [Ranexa] 500 mg PO BID@1000,2200 Metoprolol Tartrate [Lopressor] 12.5 mg PO BID@1000,2200 Albuterol Nebulized [Ventolin Nebulized] 2.5 mg INHALATION RT-Q4H PRN PRN Reason: Shortness Of Breath Atorvastatin Calcium [Lipitor] 40 mg PO HS@2200 rOPINIRole HCL [Requip] 0.5 mg PO TID@1000,1430,2200 Ondansetron [Zofran] 4 mg PO DAILY PRN PRN Reason: Nausea And Vomiting Omeprazole 40 mg PO BID@1000,2200 Nephro-Deepa 1 tab PO DAILY@1000 Lactulose [Constulose] 10 gm PO DAILY PRN PRN Reason: Constipation Sodium Bicarbonate Tab 650 mg PO DAILY@1000 Acetaminophen Tab [Tylenol] 650 mg PO Q6HR PRN tab PRN Reason: Fever and/ or Mild Pain Benzonatate 100 mg PO BID PRN PRN Reason: Cough Clopidogrel [Plavix] 75 mg PO DAILY@1000 levOCARNitine 330 mg PO BID PRN PRN Reason: CRAMPING oxyCODONE HCL [oxyCODONE HCL (IR)] 5 mg PO DAILY PRN PRN Reason: WOUND VAC CHANGES Midodrine [ProAmatine] 10 mg PO AC-TID #180 tab Discontinued Insulin Glargine,Hum.rec.anlog [Lantus Solostar Pen] 25 units SQ HS@2199 Insulin Aspart [NovoLOG Flexpen] 8 units SQ TID-W/MEALS Discharge Medication List Ergocalciferol (Vitamin D2) [Vitamin D2] 1,250 mcg PO Q14D 07/18/17 [History] DULoxetine HCL [Cymbalta] 20 mg PO HS@219910/27/20 [History] Melatonin 5 mg PO HS@219912/19/20 [History] Sennosides-Docusate Sodium [Senokot-S] 2 tab PO BID@1000,219912/31/20 [History] Gabapentin [Neurontin] 100 mg PO TID@1000,1430,219901/23/21 [History] Nitroglycerin Sl Tabs [Nitrostat] 0.4 mg SL Q5M PRN 01/23/21 [History] rOPINIRole HCL [Requip] 0.5 mg PO TID@1000,1430,219901/23/21 [History] Ondansetron [Zofran] 4 mg PO DAILY PRN 05/08/21 [History] oxyBUTYnin chloride [Ditropan] 5 mg PO HS@219906/28/21 [History] Lactulose [Constulose] 10 gm PO DAILY PRN 11/12/21 [History] Nephro-Deepa 1 tab PO DAILY@99911/12/21 [History] Omeprazole 40 mg PO BID@999,219911/12/21 [History] Cyanocobalamin [Vitamin B-12] 1,000 mcg PO DAILY@1000 12/14/21 [History] Sodium Bicarbonate Tab 650 mg PO DAILY@99901/12/23 [History] Acetaminophen Tab [Tylenol] 650 mg PO Q6HR PRN tab 01/16/23 [Rx] Amiodarone [Cordarone] 200 mg PO DAILY@1430 02/18/23 [History] Calcium Acetate [PhosLo] 1,334 mg PO 5XD 02/18/23 [History] Isosorbide Mononitrate ER [Imdur] 30 mg PO DAILY@99902/18/23 [History] Ranolazine [Ranexa] 500 mg PO BID@1000,0 02/18/23 [History] Metoprolol Tartrate [Lopressor] 12.5 mg PO BID@1000,0 02/23/23 [History] Albuterol Nebulized [Ventolin Nebulized] 2.5 mg INHALATION RT-Q4H PRN 04/25/23 [History] Atorvastatin Calcium [Lipitor] 40 mg PO HS@219904/25/23 [History] Benzonatate 100 mg PO BID PRN 04/25/23 [History] Clopidogrel [Plavix] 75 mg PO DAILY@1000 04/25/23 [History] levOCARNitine 330 mg PO BID PRN 04/25/23 [History] oxyCODONE HCL [oxyCODONE HCL (IR)] 5 mg PO DAILY PRN 05/27/23 [History] Midodrine [ProAmatine] 10 mg PO AC-TID #180 tab 05/31/23 [Rx] Amoxic-Pot Clav 875-125Mg [Augmentin 875-125] 1 tab PO BID 10 Days #20 tab 06/10/23 [Rx] Aspirin 81 mg PO DAILY tab 06/10/23 [Rx] Insulin Detemir (Levemir) [Levemir] 10 unit SQ DAILY@0700 each 06/10/23 [Rx] Follow up Appointment(s)/Referral(s): Yulissa Ivory MD [STAFF PHYSICIAN] - 1 Week [facility]Clinic [Primary Care Provider] - 1-2 days Maricel Jansen MD [STAFF PHYSICIAN] - 1 Week [facility] [NON-STAFF] - 1 Week (upon discharge) Activity/Diet/Wound Care/Special Instructions: Activity: As tolerated, fall precautions Diet: Renal, carb consistent Wound Care: Continue with wound vac Tues/Thur/Sat: Right groin: Apply black and white foam to the site for negative pressure wound VAC 150 mmHg. Patient has a small ulceration distal to the groin ulceration apply absorptive Silver. Daily: Apply triad cream to Penis, scrotum, and sacrum Special Instructions: Check blood sugars with meals and at night Discharge Disposition: HOME SELF-CARE
[2023-06-10 11:57] LABS: Glucose,Whole Blood 82 mg/dL (70-110)
--- NOTE | 2023-06-10 12:29 | P.PN ---
Subjective Patient is a 73-year-old male with end-stage renal disease maintained on peritoneal dialysis. Patient was admitted with increased weakness and he will be discharged to rehab. Patient has therefore been switched to hemodialysis. Seen on hemodialysis. Tolerating treatment okay Objective - Vital Signs Vital signs: Vital Signs Temp 97.5 F L 06/10/23 07:19 Pulse 101 H 06/10/23 07:19 Resp 16 06/10/23 07:19 BP 128/61 06/10/23 07:19 Pulse Ox 93 L 06/10/23 07:19 FiO2 Intake & Output 06/09/23 06/10/23 06/10/23 18:59 06:59 18:59 Intake Total 400 Output Total 590 Balance -590 400 Weight 57 kg Intake: Intake, IV Titration 100 Amount Piperacillin-Tazobactam 3 100 .375 gm In Sodium Chloride 0.9% 100 ml @ 25 mls/hr IVPB Q12HR GRECIA Rx #:[id number] Oral 300 Output: Urine 590 Other: Voiding Method Bedside Commode Bedside Commode # Voids 0 # Bowel Movements 1 1 - Exam Patient is awake, comfortable, in no acute distress Alert oriented 3 Right groin wound VAC Examination of lower extremities shows no significant edema FIELD C[employer] COORDINATOR exam grossly intact - Labs CBC & Chem 7: 06/09/23 06:13 06/09/23 06:13 Labs: Abnormal Lab Results - Last 24 Hours (Table) 06/09/23 06/09/23 06/09/23 Range/Units 06:13 06:13 17:10 WBC 11.89 H (4.50-10.00) X 10*3/uL RBC 2.69 L (4.40-5.60) X 10*6/uL Hgb 8.1 L (13.0-17.0) d/dL Hct 28.0 L (39.6-50.0) % MCV 104.1 H (80.0-97.0) FL MCHC 28.9 L (32.0-37.0) d/dL RDW 18.5 H (11.5-14.5) % Sodium 134 L (135-145) mmol/L Chloride 94 L (96-109) mmol/L Anion Gap 12.60 H (4.00-12.00) mmol/L BUN 61.0 H (9.0-27.0) mg/dL Creatinine 5.6 H (0.6-1.5) mg/dL Est GFR (CKD-EPI) 10 L (>=60) BUN/Creatinine Ratio 10.89 L (12.00-20.00) Ratio Glucose 173 H (70-110) mg/dL POC Glucose (mg/dL) 172 H (70-110) mg/dL Total Bilirubin <0.2 L (0.3-1.2) mg/dL Total Protein 5.1 L (6.2-8.2) d/dL Albumin 2.4 L (3.8-4.9) d/dL Albumin/Globulin Ratio 0.89 L (1.60-3.17) Ratio 06/09/23 06/10/23 06/10/23 Range/Units 20:39 01:53 07:19 WBC (4.50-10.00) X 10*3/uL RBC (4.40-5.60) X 10*6/uL Hgb (13.0-17.0) d/dL Hct (39.6-50.0) % MCV (80.0-97.0) FL MCHC (32.0-37.0) d/dL RDW (11.5-14.5) % Sodium (135-145) mmol/L Chloride (96-109) mmol/L Anion Gap (4.00-12.00) mmol/L BUN (9.0-27.0) mg/dL Creatinine (0.6-1.5) mg/dL Est GFR (CKD-EPI) (>=60) BUN/Creatinine Ratio (12.00-20.00) Ratio Glucose (70-110) mg/dL POC Glucose (mg/dL) 188 H 140 H 142 H (70-110) mg/dL Total Bilirubin (0.3-1.2) mg/dL Total Protein (6.2-8.2) d/dL Albumin (3.8-4.9) d/dL Albumin/Globulin Ratio (1.60-3.17) Ratio Microbiology - Last 24 Hours (Table) 06/06/23 06:05 Blood Culture - Preliminary Blood Assessment and Plan Assessment: 1. End-stage renal disease , switched to temporary hemodialysis while in rehab. 2. Volume overload currently improved 3. Status post recent surgeries to the right groin for necrotizing infection status post wound VAC 4. Generalized weakness and debility, patient will need to be discharged to rehab 5. Anemia of chronic disease status post IV iron last admission Plan: Hemodialysis today Awaiting discharge to rehab
[2023-06-10 13:41] VITALS: BP 104/58; PULSE 81; RESP 28; TEMP 97.8
[2023-06-10] MEDS: AMIODARONE 200 MG TAB PO SCH (14:26)
[2023-06-10] MEDS: DARBEPOETIN ALFA 40 MCG/0.4 ML SYRINGE SQ SCH (14:27)
[2023-06-10] MEDS: HYDROcodone/APAP 5-325MG 1 EACH TAB PO PRN (14:52)
[2023-06-10 15:57] LABS: Glucose,Whole Blood 114 mg/dL (70-110)
--- NOTE | 2023-06-12 08:11 | CDI ---
Documentation Clarification Form Date: 06/12/2023 From: Alma Garcia Admit Date: 06/01/2023 07:56:00 AM Patient Name: Jack Egan Visit Number: [id number] Discharge Date: 06/10/2023 04:59:00 PM ATTENTION: The Clinical Documentation Specialists (CDI) and [facility] Coding Staff appreciate your assistance in clarifying documentation. Please respond to the clarification below the line at the bottom and electronically sign. The CDI & [facility] Coding staff will review the response and follow-up if needed. Please note: Queries are made part of the Legal Health Record. If you have any questions, please contact the author of this message via ITS. Dr. Corrina Mccain, Conflicting documentation has been found in the medical record. As attending physician, please provide clarification. Per 06/03 OP note: Acutechronic renal failure. Per PNs and DS: ESRD- on HD M/W/F History/Risk Factors: HTN w ESRD w chronic systolic CHF, T2DM w ulcers, CKD, cataracts, neuropathy, hypoglycemia & PVD Clinical Indicators: Cr: 06/01: 7.36; 03/02: 7.53; 06/04: 7.1; 06/05: 7.2; 06/06: 4.4; 06/08: 3.73; 06/09: 5.6 Treatment: CAPD and then switched to hemodialysis Please clarify which diagnosis is most appropriate: [ ] Acute kidney injury on ESRD [ X ] ESRD [ ] Other (please specify) [ ] Unable to determine MTDD
[2023-06-12] MEDS ORDERED: ERGOCALCIFEROL 1,250 MCG (50,000 IU) CAPSULE PO SCH (09:00)
== END 2023-06-10 16:59 | DRG 291 ==
LOC: EC 06:35 → OBSVTOIN 07:56 → 6NMEDSUR 07:56 → 3SCARD 15:00 → 4SSUR 15:40 → 5NMEDONC 19:24
PROVIDERS: ADMIT Family Medicine; ATTEND Family Medicine
PROC: 3E1M39Z Irrigation of Peritoneal Cavity using Dialysate, Percutaneous Approach (ICD-10-PCS; 2023-06-01)
PROC: 02H633Z Insertion of Infusion Device into Right Atrium, Percutaneous Approach (ICD-10-PCS; principal; 2023-06-03 14:30)
PROC: 5A1D70Z Performance of Urinary Filtration, Intermittent, Less than 6 Hours Per Day (ICD-10-PCS; 2023-06-05)
DX: I13.2 Hypertensive heart and chronic kidney disease with heart failure and with stage 5 chronic kidney disease, or end stage renal disease (principal); G93.41 Metabolic encephalopathy; N18.6 End stage renal disease; L97.515 Non-pressure chronic ulcer of other part of right foot with muscle involvement without evidence of necrosis; E11.52 Type 2 diabetes mellitus with diabetic peripheral angiopathy with gangrene; E87.1 Hypo-osmolality and hyponatremia; L98.495 Non-pressure chronic ulcer of skin of other sites with muscle involvement without evidence of necrosis; E11.649 Type 2 diabetes mellitus with hypoglycemia without coma; E11.41 Type 2 diabetes mellitus with diabetic mononeuropathy; D63.1 Anemia in chronic kidney disease; I95.9 Hypotension, unspecified; E11.36 Type 2 diabetes mellitus with diabetic cataract; L89.152 Pressure ulcer of sacral region, stage 2; E83.9 Disorder of mineral metabolism, unspecified; E11.22 Type 2 diabetes mellitus with diabetic chronic kidney disease; E11.621 Type 2 diabetes mellitus with foot ulcer; E11.622 Type 2 diabetes mellitus with other skin ulcer; E87.8 Other disorders of electrolyte and fluid balance, not elsewhere classified; L98.492 Non-pressure chronic ulcer of skin of other sites with fat layer exposed; I50.22 Chronic systolic (congestive) heart failure; I48.91 Unspecified atrial fibrillation; J44.9 Chronic obstructive pulmonary disease, unspecified; Z79.4 Long term (current) use of insulin; Z99.2 Dependence on renal dialysis; Z91.158 Patient's noncompliance with renal dialysis for other reason; N49.3 Fournier gangrene; I25.5 Ischemic cardiomyopathy; E78.5 Hyperlipidemia, unspecified; E87.5 Hyperkalemia; G57.93 Unspecified mononeuropathy of bilateral lower limbs; D53.9 Nutritional anemia, unspecified; I44.7 Left bundle-branch block, unspecified; I25.10 Atherosclerotic heart disease of native coronary artery without angina pectoris; K21.9 Gastro-esophageal reflux disease without esophagitis; I25.2 Old myocardial infarction; H26.9 Unspecified cataract; G25.81 Restless legs syndrome; F43.10 Post-traumatic stress disorder, unspecified; G89.29 Other chronic pain; M54.42 Lumbago with sciatica, left side; M54.41 Lumbago with sciatica, right side; M25.551 Pain in right hip; R26.9 Unspecified abnormalities of gait and mobility; R29.6 Repeated falls; F17.210 Nicotine dependence, cigarettes, uncomplicated; Z71.6 Tobacco abuse counseling; Z77.098 Contact with and (suspected) exposure to other hazardous, chiefly nonmedicinal, chemicals; Z79.02 Long term (current) use of antithrombotics/antiplatelets; Z79.899 Other long term (current) drug therapy; Z95.5 Presence of coronary angioplasty implant and graft; Z95.820 Peripheral vascular angioplasty status with implants and grafts; W19.XXXA Unspecified fall, initial encounter; Y92.009 Unspecified place in unspecified non-institutional (private) residence as the place of occurrence of the external cause; Z91.041 Radiographic dye allergy status
CPT/HCPCS: 36415; 36558; 71046; 76937; 77001; 80048; 80053; 82728; 83036; 83540; 83550; 83735; 83880; 84100; 84132; 84145; 84484; 85025; 85027; 85610; 85730; 86140; 86706; 87040; 87340; 90935; 93005; 94640; 94760; 99285